=== PATIENT | female | born 2000 | race Caucasian/White ===

== ENCOUNTER 2020-02-29 13:45 | Emergency (ER) | payer OTHER ==
--- OUTSIDE RECORDS SUMMARY | 2020-02-29 13:49 | XMS REPORT | Summary of Care ---
:2000 Author Organization [facility] [employer] Address [address] [place] [address] Care Team Providers Name Role Phone Christel Pavon [facility] Primary Care Provider Reason for Visit Reason Comments Assessment heavy vag bleeding Encounter Details Date Type Department Care Team Description 01/10/2020 Telephone [facility]- Ofelia Pavon Ass essment (heavy vag [place] C, CNP bleeding) [address] [facility] [address] [place], [place] [phone] Allergies No Known Allergiesdocumented as of this encounter (statuses as of 01/10/2020) Medications Medication Sig Dispensed Refills Start Date End Date Status vitamin w/FA Take 1 tablet by 100 tablet 3 06/10/2019 Active tabletIndications: mouth daily. (spontaneous vaginal delivery) docusate calcium 240 Take 1 capsule by 60 capsule 1 06/10/2019 Active mg mouth once daily capsuleIndications: as needed for (spontaneous Constipation. vaginal delivery) ferrous sulfate 325 Take 1 tablet by 60 tablet 2 06/10/2019 Active mg (65 mg iron) mouth 2 (two) tabletIndications: times daily. (spontaneous vaginal delivery) ibuprofen 600 mg Take 1 tablet by 60 tablet 1 06/10/2019 Active tabletIndications: mouth every 6 (spontaneous (six) hours as vaginal delivery) needed for Pain (scale 1-3) or Pain (scale 4-6) (Pain). Take with food or milk. documented as of this encounter (statuses as of 01/10/2020) Active Problems Problem Noted Date Encounter for IUD removal 10/05/2019 Well woman exam 09/20/2019 Other general counseling and advice for contraceptive management 09/20/2019 Obesity (BMI 30-39.9) 06/09/2019 Tobacco use 10/20/2018 Overview: Quit with Other depression 12/19/2017 documented as of this encounter (statuses as of 01/10/2020) Resolved Problems Problem Noted Date Resolved Date (spontaneous vaginal delivery) 06/10/201909/20 Single live 06/10/2019 09/20/2019 Anemia, 06/10/2019 09/20/2019 38 weeks gestation of 06/09/2019 09/20/19 20 Supervision of high-risk 06/05/201909/20 Multiparity 06/05/2019 09/20/2019 Anemia of mother in , antepartum 05/24/2019 09/20/2019 Overview: Verify if patient is taking iron/vit/pnv on next visit Vaginal bleeding during 04/17/20192018 Supervision of high-risk 02/20/201904/27 Round ligament pain 02/20/2019 04/27/2019 Pyelectasis 01/30/2019 09/20/2019 Overview: Left and right pyelectasis noted on usg Rh negative state in antepartum period 10/24/2018 0 09/20/2019 Overview: Will need rhogam at 28 weeks Multiparity 10/20/2018 02/07/2019 History of delivery 10/20/2018 09/20/2019 Overview: Delivery at 35 weeks Supervision of high-risk 10/20/201802/07 Anemia, 06/12/2018 10/20/2018 (spontaneous vaginal delivery) 06/11/201810/20 Single liveborn infant 06/11/2018 07/11/2018 35 weeks gestation of 06/10/2018 07/11/20 18 Vaginal discharge during 05/01/201807/11 Urinary frequency 03/28/2018 07/11/2018 Over weight 11/23/2017 02/07/2019 Rh negative state in antepartum period 11/23/2017 1 09/11/2017 Overview: Rhogam at 28 weeks Supervision of high risk , antepartum 11/22/2017 07/11/2018 Vaginal bleeding in 11/22/2017 07/11/2018 Nausea and vomiting during prior to 22 weeks 11/2207/11/2018 gestation documented as of this encounter (statuses as of 01/10/2020) Immunizations Name Administration Dates Next Due HPV9 09/18/2019, 07/11/2018, 06/11/2018 Influenza Virus Vaccine Quad .5 mL IM 6+ 10/20/2018 MO Rho (d) Immune Globulin 06/10/2019, 03/29/2019, 06/11/2018 Tdap 03/29/2019, 04/18/2018 documented as of this encounter Social History Tobacco Use Types Packs/Day Years Used Date Current Every Day Smoker Cigarettes 0.05 Sta rted: 06/2019 Smokeless Tobacco: Never Used Comments: was smoking 1 cigarrette a day Alcohol Use Drinks/Week oz/Week Comments No Sex Assigned at Date Recorded Not on file Job Start Date Occupation Industry Not on file Not on file Not on file Travel History Travel Start Travel End No recent travel history available. COVID-19 Exposure Response Date Recorded In the last month, have you been in contact with No / Unsure 01/07/2020 9:39 AM CDT someone who was confirmed or suspected to have Coronavirus / COVID-19? documented as of this encounter Last Filed Vital Signs Not on filedocumented in this encounter Plan of Treatment Health Maintenance Due Date Last Done Comments PNEUMOCOCCAL 0-64 YEARS 2006 COMBINED SERIES (1 of 1 - PPSV23) MENINGOCOCCAL B VACCINES (1 2010 of 2 - Risk Bexsero 2-dose series) WELL CARE VISIT: 12-21 YEARS 2012 (yearly) INFLUENZA VACCINE (Season 04/08/2020 10/20/2018 Ended) CHLAMYDIA SCREENING 09/20/2020 09/20/2019, 05/22/2019, 10/20/2018, Additional history exists Depression Screening 09/20/2020 09/20/2019 DTaP,Tdap,and Td Vaccines (3 03/29/2029 03/29/2019, 018 - Td) HPV VACCINES Completed 09/18/2019, 07/11/2018, 06/11/2018 MENINGOCOCCAL VACCINE Aged Out No longer eligible based on patient 's age to complete this topic documented as of this encounter Results Not on filedocumented in this encounter Insurance Payer Benefit Plan / Subscriber ID Effective Dates Phone Addre ss Type Group [place] [employer] [place] xxxxxxxxx 2019-Present Medicaid HEALTH PLAN - [facility] MANAGED MEDICAID documented as of this encounter Advance Directives Name Relationship Healthcare Agent Relationship Co mmunication Suzy Lott Mother Primary healthcare agent
--- OUTSIDE RECORDS SUMMARY | 2020-02-29 13:49 | XMS REPORT | Summary of Care ---
:2000 Author Organization [facility] Address [address] [place] [id number] Care Team Providers Name Role Phone Christel Pavon [facility] Primary Care Provider Reason for Visit Reason Comments Appointment IUD removal Encounter Details Date Type Department Care Team Description 12/12/2019 Telephone [facility]- Ofelia Pavon Stan ointment (IUD [place] C, WHCNP removal) [address] [facility] [address] [facility] [phone] [place], [place] [phone] Allergies No Known Allergiesdocumented as of this encounter (statuses as of 12/12/2019) Medications Medication Sig Dispensed Refills Start Date [...] as of this encounter (statuses as of 12/12/2019) Active Problems Problem Noted Date Encounter for IUD insertion 10/05/2019 Well woman exam 09/20/2019 Other general counseling and advice for contraceptive management 09/20/2019 Obesity (BMI 30-39.9) 06/09/2019 Tobacco use 10/20/2018 Overview: Quit with Other depression 12/19/2017 documented as of this encounter (statuses as of 12/12/2019) Resolved Problems Problem Noted Date Resolved Date [...] 10/20/2018 (spontaneous vaginal delivery) 06/11/201810/20 Single liveborn 06/11/2018 07/11/2018 35 weeks gestation of 06/10/2018 [...] as of this encounter (statuses as of 12/12/2019) Immunizations Name Administration Dates Next Due HPV9 [...] Travel End No recent travel history available. documented as of this encounter Last Filed [...] 09/20/2020 09/20/2019, 05/22/2019, 10/20/2018, Additional history exists DTaP,Tdap,and Td Vaccines (3 03/29/2029 03/29/2019, 018 - Td) HPV VACCINES Completed 09/18/2019, 07/11/2018, 06/11/2018 MENINGOCOCCAL VACCINE Aged Out No longer eligible based on patient 's age to complete this topic documented as of this encounter Results Not on filedocumented in this encounter Insurance Payer Benefit Plan / Subscriber ID Effective Phone Address T ype Group Dates [facility] MEDICAID OF xxxxxxxxx 2019-Prese [phone] Med icaid [place] nt [id number] [place] [address] [facility] CHILDRENS xxxxxxxxx 2019-Nestor Brown [facility] HEALTH PLAN - MANAGED MEDICAID documented as of this encounter Advance Directives Name Relationship Healthcare Agent Relationship Co mmunication Suzy Lott Mother Primary healthcare agent
--- OUTSIDE RECORDS SUMMARY | 2020-02-29 13:49 | XMS REPORT | Summary of Care ---
:2000 Author Organization [facility] Address [address] [place] [address] Care Team Providers Name Role Phone Christel Pavon [facility] Primary Care Provider Encounter Details Date Type Department Care Team Description 02/26/2020 Orders Only [facility] Doctor Unassigned, No [address] [facility] [place] [address] [address] [place] [address] Allergies No Known Allergiesdocumented as of this encounter (statuses as of 02/26/2020) Medications Medication Sig Dispensed Refills Start Date [...] as of this encounter (statuses as of 02/26/2020) Active Problems Problem Noted Date Encounter for IUD removal 10/05/2019 Well woman exam 09/20/2019 Other general counseling and advice for contraceptive management 09/20/2019 Obesity (BMI 30-39.9) 06/09/2019 Tobacco use 10/20/2018 Overview: Quit with Other depression 12/19/2017 documented as of this encounter (statuses as of 02/26/2020) Resolved Problems Problem Noted Date Resolved Date (spontaneous vaginal delivery) 06/10/201909/20 Single live 06/10/2019 09/20/2019 Anemia, 06/10/2019 09/20/2019 38 weeks gestation of 06/09/2019 09/20/19 Supervision of high-risk 06/05/201909/20 Multiparity 06/05/2019 09/20/2019 [...] as of this encounter (statuses as of 02/26/2020) Immunizations Name Administration Dates Next Due HPV9 09/18/2019, 07/11/2018, 06/11/2018 Influenza Virus Vaccine Quad .5 mL IM 6+ 10/20/2018 MO Rho (d) Immune Globulin 06/10/2019, 03/29/2019, 06/11/2018 TDAP 03/29/2019, 04/18/2018 documented as of this encounter [...] VISIT: 12-21 YEARS 2012 (yearly) INFLUENZA VACCINE (#1) 2020 10/20/2018 CHLAMYDIA SCREENING 09/20/2020 09/20/2019, 05/22/2019, 10/20/2018, Additional history exists Depression Screening 09/20/2020 09/20/2019 DTaP,Tdap,and Td Vaccines (3 03/29/2029 03/29/2019, 018 - Td) HPV VACCINES Completed 09/18/2019, 07/11/2018, 06/11/2018 MENINGOCOCCAL VACCINE Aged Out No longer eligible based on patient 's age to complete this topic documented as of this encounter Procedures Procedure Name Priority Date/Time Associated Diagnosis Comme nts ASSIGNMENT OF BENEFITS Routine 02/26/2020 4:29 PM CDT documented in this encounter Results Not on filedocumented in this encounter Insurance Payer Benefit Plan / Subscriber ID Effective Dates Phone Addre ss Type Group [place] xxxxxxxxx 2019-Present Medicaid HEALTH PLAN - HEALTH MANAGED MEDICAID documented as of this encounter Advance Directives Name Relationship Healthcare Agent Relationship Co mmunication Suzy Lott Mother Primary healthcare agent
--- OUTSIDE RECORDS SUMMARY | 2020-02-29 13:49 | XMS REPORT | Continuity of Care Document ---
:2000 Author Organization [facility] t Address [address] [place] [address] Care Team Providers Name Role Phone Freeman Schulz Attending Clinician Doctor Unassigned, Name Attending Clinician Unavailable Christel Oviedo Attending Clinician Problems This patient has no known problems. Allergies, Adverse Reactions, Alerts This patient has no known allergies or adverse reactions. Medications This patient has no known medications. Procedures This patient has no known procedures. Encounters Start End Encounter Admission Attending Care Care Encounter Source Date/Time Date/Time Type Type Clinicians Facility Department ID 2020-02-26 2020-02-26 [facility] [id number] 16:39:27 18:59:00 Whitley Vasquez [id number] [place] [id number] [place] [id number] 2020-02-26 2020-02-26 Orders Doctor MORAN [id number] 00:00:00 00:00:00 Only UnassJANNA melendez [id number] [place] [facility] [id number] 2020-01-10 2020-01-10 Telephone ELODIA Pavon [id number] 00:00:00 00:00:00 Ofelia C INTERNAL REVENUE AGENT [id number] [facility] [id number] MATERNAL [id number] & CHILD 107 [facility] 2019-12-12 2019-12-12 Telephone [facility] [id number] 00:00:00 00:00:00 Ofelia C INTERNAL REVENUE AGENT [id number] [facility] [id number] MATERNAL [id number] & CHILD 107 [facility] 2019-10-26 2019-10-26 Telephone [facility] [id number] 00:00:00 00:00:00 Ofelia C INTERNAL REVENUE AGENT [id number] [facility] [id number] MATERNAL [id number] & CHILD 107 [facility] 2019-10-05 2019-10-05 Office [facility] [id number] 14:55:55 15:52:08 Visit Ofelia C INTERNAL REVENUE AGENT [id number] [facility] [id number] MATERNAL [id number] & CHILD 107 [facility] 2019-10-05 2019-10-05 Orders Doctor LUISA [id number] 00:00:00 00:00:00 Only Unassigned, JANNA [id number] [place] [facility] [id number] Results This patient has no known results.
--- OUTSIDE RECORDS SUMMARY | 2020-02-29 13:50 | XMS REPORT | Summary of Care ---
:2000 Author Organization [facility] - [facility] Address [address] [place] [id number] Care Team Providers Name Role Phone Christel Pavon SHERICE Primary Care Provider Reason for Referral Radiology Services (STAT) Status Reason Specialty Diagnoses / Referred By Referred To Procedures Contact Contact New Request Diagnostic Diagnoses Pelvic pain Whitley Bonner Radiology Procedures US PELVIS COMPLETE WITH TRANSVAGINAL R, EMNP [facility] [id number] [place] [id number] Reason for Visit Reason Comments Abdominal Pain Auth/Cert Status Reason Specialty Diagnoses / Referred By Referred To Procedures Contact Contact Emergency Medicine [facility] Em ergency Dept [address] [place] [address] Fax: Encounter Details Date Type Department Care Team Description 02/26/2020 Emergency ADC-Emergency Whitley Bonner R, PID (acute pelvic inflammatory disease) (Primary Dx); Department EMNP Lower abdominal pain; [address] [place] [address] Dr dougherty [facility] [place] [address] [id number] [place], [place] [address] Allergies No Known Allergiesdocumented as of this encounter (statuses as of 02/26/2020) Medications Medication Sig Dispensed Refills Start Date End Date Status vitamin w/FA Take 1 tablet 100 tablet 3 06/10/2019 Active tabletIndications: by mouth daily. (spontaneous vaginal delivery) docusate calcium 240 Take 1 capsule 60 capsule 1 06/10/2019 Active mg capsuleIndications: by mouth once (spontaneous daily as needed vaginal delivery) for Constipation. ferrous sulfate 325 mg Take 1 tablet 60 tablet 2 06/10/2019 Active (65 mg iron) by mouth 2 tabletIndications: (two) times (spontaneous vaginal daily. delivery) ibuprofen 600 mg Take 1 tablet 60 tablet 1 06/10/2019 Active tabletIndications: by mouth every (spontaneous vaginal 6 (six) hours delivery) as needed for Pain (scale 1-3) or Pain (scale 4-6) (Pain). Take with food or milk. doxycycline hyclate Take 1 capsule 28 capsule 0 02/26/202011/2019 Active 100 mg by mouth 2 capsuleIndications: (two) times PID (acute pelvic daily for 14 inflammatory disease) days. metroNIDAZOLE 500 mg Take 1 tablet 28 tablet 0 02/26/202011/2019 Active tabletIndications: PID by mouth 2 (acute pelvic (two) times inflammatory disease) daily for 14 days. ibuprofen 800 mg Take 1 tablet 20 tablet 0 02/26/2020 Active tabletIndications: PID by mouth every (acute pelvic 6 (six) hours inflammatory disease) as needed for Pain (scale 4-6). documented as of this encounter (statuses as [...] been in contact with No / Unsure 02/26/2020 4:30 PM CDT someone who was confirmed or suspected to have Coronavirus / COVID-19? documented as of this encounter Last Filed Vital Signs Vital Sign Reading Time Taken Comments Blood Pressure 110/78 02/26/2020 6:57 PM CDT Pulse 87 02/26/2020 6:57 PM CDT Temperature 37 C (98.6 F) 02/26/2020 4:35 PM CDT Respiratory Rate 18 02/26/2020 6:57 PM CDT Oxygen Saturation 100% 02/26/2020 6:57 PM CDT Inhaled Oxygen Concentration - - Weight 86.2 kg (190 lb) 02/26/2020 4:35 PM CDT Height - - Body Mass Index - - documented in this encounter Discharge Instructions Whitley Sorto EMNP - 02/26/2020NO LIFE-THREATENING FINDINGS ON TODAY'S EXAM. SPECIAL INSTRUCTIONS: 1. Pelvic rest for 2 weeks (no sex/tampons/douche) 2. May take 2 tylenol every 4 hours for pain 3. Take all antibiotics 4. Follow up with golf manager in 1 week for reevaluation 5. See attached information FOLLOW-UP RECOMMENDATIONS: RECOMMEND FOLLOW-UP WITH A PRIMARY CARE PROVIDER OR SPECIALIST IN 2-5 DAYS, ESPECIALLY IF NO IMPROVEMENT IN SYMPTOMS. TO FOLLOW-UP WITHIN THE [facility], TRY THESE OPTIONS (CLINIC APPOINTMENTS AVAILABLE ON BJIB-YW-FICA BASIS): 1. SCHEDULE AN APPOINTMENT ONLINE AT WWW.[facility] 2. OR CALL THE [facility] AT OR 3. OR CALL YOUR [facility] PHYSICIAN'S OFFICE DIRECTLY IF YOU ARE ALREADY AN ESTABLISHED [facility] PATIENT. OR, YOU MAY FOLLOW-UP WITH A PROVIDER OF YOUR CHOICE, SUCH : 1. A PHYSICIAN OF YOUR CHOICE 2. [facility], . LOCATIONS IN [facility] 3. [facility], [address] [place] [address]; [phone] RETURN TO ER FOR WORSENING OF SYMPTOMS. AttachmentsThe following attachments cannot be sent through Care Everywhere. Pelvic Inflammatory Disease (Zimbabwean)Pelvic Inflammatory Disease (PID)? What Is (Zimbabwean)Pelvic Inflammatory Disease, Talking About (PID) (Zimbabwean)Pelvic Inflammatory Disease, Treating with Medicines (PID) (Zimbabwean)Doxycycline tablets or capsules (Zimbabwean)Metronidazole tablets or capsules ([place]imbabwean)documented in this encounter Plan of Treatment Name Type Priority Associated Diagnoses Date/Ti me GC & CHLAMYDIA AMPLIFIED LAB STAT Lower abdominal pain 02/26/2020 5:12 PM CDT ASSAY Name Type Priority Associated Diagnoses Order S chedule GC & CHLAMYDIA AMPLIFIED LAB Routine Lower abdominal pain ONCE for 1 Occurrences ASSAY starting 2019 until 02/26/2020 Health Maintenance Due Date Last Done Comments [...] encounter Procedures Procedure Name Priority Date/Time Associated Comments Diagnosis US PELVIS COMPLETE STAT 02/26/2020 5:53 Pelvic pain Resul ts for this WITH TRANSVAGINAL PM CDT procedure are in the results section. POCT TEST ARA 02/26/2020 5:12 Lower abdominal R esults for this PM CDT pain procedure are i n the results section. URINALYSIS STAT 02/26/2020 5:12 Lower abdominal Results for this PM CDT pain procedure are i n the results section. CBC WITH DIFF STAT 02/26/2020 5:12 Lower abdominal Results for this PM CDT pain procedure are i n the results section. COMP. METABOLIC PANEL STAT 02/26/2020 5:12 Lower abdominal Results for this (62078) PM CDT pain procedure are i n the results section. documented in this encounter Results US PELVIS COMPLETE WITH TRANSVAGINAL (02/26/2020 5:53 PM CDT) Specimen Impressions Performed At PACS/VR/DOSE Unremarkable ultrasound of the uterus and right ovary. Left ovary could not be visualized Preliminary Report Dictated by Resident: Elliott Hart I, Milad Recio MD., have reviewed this study and agree with the above report. Narrative Performed At EXAM: US PELVIS COMPLETE WITH TRANSVAGIN AL PACS/VR/DOSE HISTORY: 19 years -old Female with pelvi c pain . LMP = 02/05/2020. n TECHNIQUE: Transabdominal and transvaginal ultrasound imaging of the pelvis was performed including color Doppler ev aluation. Environmental Marketer images were obtained for the record. COMPARISON: None FINDINGS: Uterus: The uterus is normal in size, 3.8 x 4.6 x 10.0 cm. The myometrium is homogenous. No focal lesion is detected. The endometrium is normal in appearance. Endometrial thickness measur es 7.0 mm. The cervix is unremarkable. Right Adnexa: Ovary size: 2.4 x 1.7 x 1.5 cm Ovary appearance: Few small follicles. Other: No mass. Left Adnexa: The left ovary is nonvisualized. Cul-de-sac: Small amount of fluid is not ed within the cul-de-sac, likely physiologic. Procedure Note [facility], Radiant Results Inft User - 2019 6:07 PM CDT EXAM: US PELVIS COMPLETE WITH TRANSVAGINAL HISTORY: 19 years -old Female with pelvi c pain . LMP = 02/05/2020. n TECHNIQUE: Transabdominal and transvagin al ultrasound imaging of the pelvis was performed including color Doppler ev aluation. Environmental Marketer images were obtained for the record. COMPARISON: None FINDINGS: Uterus: The uterus is normal in size, 3.8 x 4.6 x 10.0 cm. The myometrium is homogenous. No focal lesion is detected. The endometrium is normal in appearance. Endometrial thickness measur es 7.0 mm. The cervix is unremarkable. Right Adnexa: Ovary size: 2.4 x 1.7 x 1.5 cm Ovary appearance: Few small follicles. Other: No mass. Left Adnexa: The left ovary is nonvisualized. Cul-de-sac: Small amount of fluid is not ed within the cul-de-sac, likely physiologic. IMPRESSION Unremarkable ultrasound of the uterus an d right ovary. Left ovary could not be visualized Preliminary Report Dictated by Resident: Elliott Hart I, Milad Recio MD., have reviewed th is study and agree with the above report. Performing Organization Address City/State/Zipcode Phone Number PACS/VR/DOSE POCT TEST (02/26/2020 5:12 PM CDT) Pathologist Sig nature POCT PREG negative On board controls acceptable present with C Line Specimen Urine - URINE, CLEAN CATCH URINALYSIS (02/26/2020 5:12 PM CDT) APPEARANCE Hazy (A) Clear [facility] COLOR Yellow Yellow [facility] PH 7.0 4.8 - 8.0 [facility] SP GRAVITY 1.020 1.003 - 1.030 [facility] GLU U QUAL Normal Normal [facility] BLOOD NegativeComment: Negative [facility] INTERFERENCE FROM HOSPITAL LABORATORY ASCORBIC ACID MAY CAUSE FALSE NEGATIVE RESULT KETONES Negative Negative [facility] PROTEIN Negative Negative [facility] UROBILIN Normal Normal [facility] BILIRUBIN Negative Negative [facility] NITRITE Negative Negative [facility] LEUK SUZANNA Negative Negative [facility] RBC/HPF 0 0 - 3 HPF [facility] WBC/HPF 1 0 - 5 HPF [facility] BACTERIA Few (A) Negative [facility] MUCOUS Slight (A) Negative LPF [facility] SQ EPITH 6 HPF [facility] Specimen Urine - URINE, CLEAN CATCH Performing Organization Address City/[facility]/Zipcode Phone Number [facility] CLIA: [id number], [address] [place], [place] [address] COMP. METABOLIC PANEL (73053) (02/26/2020 5:12 PM CDT) Pathologist Sig nature NA 138 135 - 145 mmol/L [facility] K 4.3 3.5 - 5.0 mmol/L [facility] CL 107 98 - 108 mmol/L [facility] CO2 TOTAL 23 23 - 31 mmol/L [facility] AGAP 8 2 - 16 [facility] BUN 14 7 - 23 mg/dL [facility] GLUCOSE 93 70 - 110 mg/dL [facility] CREATININE 0.75 0.50 - 1.04 [facility] mg/dL [facility] TOTAL BILI 0.3 0.1 - 1.1 mg/dL [facility] CALCIUM 9.8 8.6 - 10.6 mg/dL [facility] T PROTEIN 7.9 6.3 - 8.2 g/dL [facility] ALBUMIN 4.7 3.5 - 5.0 g/dL [facility] ALK PHOS 41 34 - 122 U/L [facility] ALTv 12 5 - 35 U/L [facility] AST(SGOT) 19 13 - 40 U/L [facility] eGFR Calculation 99.5 mL/min/1.73m2 [facility] (Non-) [facility] Y eGFR Calculation 120.7 mL/min/1.73m2 [facility] () [facility] Specimen Blood - ARM, RIGHT Narrative Performed At Association of Glomerular Filtration Rate (GFR) [facility] and Staging of Kidney Disease* + + +- + | GFR (mL/min/1.73 m2) | With Kidney Damage | Without Kidney Damage + + +- + | >90 | Stage one | Normal + + +- + | 60-89 | Stage two | Decreased GFR + + +- + | 30-59 | Stage three | Stage three + + +- + | 15-29 | Stage four | Stage four + + +- + | <15 (or dialysis) | Stage five | Stage five + + +- + *Each stage assumes the associated GFR level has been in effect for at least three months. Stages 1 to 5, with or without kidney disease, indicate chronic kidney disease. Notes: Determination of stages one and two (with eGFR >59mL/min/1.73 m2) requires estimation of kidney damage for at least three months as defined by structural or functional abnormalities of the kidney, manifested by either: Pathological abnormalities or Markers of kidney damage (including abnormalities in the composition of the blood or urine or abnormalities in imaging tests). Performing Organization Address City/State/Zipcode Phone Number [facility] CLIA: [id number], [address] [place], [place] [address] CBC WITH DIFF (02/26/2020 5:12 PM CDT) Pathologist Sig nature WBC 5.89 4.30 - 11.10 [facility] 10*3/L [facility] RBC 4.59 3.93 - 5.25 [facility] 10*6/L [facility] HGB 11.3 (L) 11.6 - 15.0 [facility] g/dL [facility] HCT 35.3 (L) 35.7 - 45.2 % [facility] MCV 76.9 (L) 80.6 - 95.5 fL [facility] MCH 24.6 (L) 25.9 - 32.8 pg [facility] MCHC 32.0 31.6 - 35.1 [facility] g/dL [facility] RDW-SD 42.4 39.0 - 49.9 fL [facility] RDW-CV 15.4 12.0 - 15.5 % [facility] PLT 297 166 - 358 [facility] 10*3/L HOSPITAL [facility] MPV 9.4 (L) 9.5 - 12.9 fL [facility] NRBC/100 WBC 0.0 0.0 - 10.0 /100 [facility] WBCs [facility] NRBC x10^3 <0.01 10*3/L [facility] GRAN MAT (NEUT) % 57.4 % [facility] IMM GRAN % 0.20 % [facility] LYMPH % 27.8 % [facility] MONO % 10.2 % [facility] EOS % 3.4 % [facility] BASO % 1.0 % [facility] GRAN MAT x10^3(ANC) 3.38 1.88 - 7.09 [facility] 10*3/uL [facility]ITAL [facility] IMM GRAN x10^3 <0.03 0.00 - 0.06 [facility] 10*3/uL [facility] LYMPH x10^3 1.64 1.32 - 3.29 [facility] 10*3/uL [facility] MONO x10^3 0.60 0.33 - 0.92 [facility] 10*3/uL [facility]ITAL [facility] EOS x10^3 0.20 0.03 - 0.39 [facility] 10*3/uL [facility] BASO x10^3 0.06 0.01 - 0.07 [facility] 10*3/uL [facility] Specimen Blood - ARM, RIGHT Performing Organization Address City/State/Zipcode Phone Number [facility] CLIA: [id number], [address] [place] [address] documented in this encounter Visit Diagnoses Diagnosis PID (acute pelvic inflammatory disease) - Primary Acute parametritis and pelvic cellulitis Lower abdominal pain Abdominal pain, other specified site Pelvic pain Unspecified symptom associated with fema le genital organs documented in this encounter Administered Medications Medication Order MAR Action Action Date Dose Rate Site cefTRIAXone (ROCEPHIN) Given 02/26/2020 6:39 PM 250 mg Left injection 250 mg CDT Dorsogluteal-IM 250 mg, Intramuscular, Q24H, First dose on Tue02/26/20 at 1830, Until Discontinued, ARA, Reason for Anti-Infective: Documented Infection, Documented Infection Site: Pelvic, Duration of Therapy: Other (see Comments) Medication Order MAR Action Action Date Dose Rate Site azithromycin (ZITHROMAX) tablet Given 02/26/2020 6:39 PM CDT 1, 000 mg 1,000 mg 1,000 mg, Oral, ONCE, 1 dose, Tue02/26/20 at 1830, ARA, Reason for Anti-Infective: Documented Infection, Documented Infection Site: Pelvic, Duration of Therapy: Other (see Comments) ketorolac (TORADOL) injection 15 mg Given 02/26/2020 5:18 PM CDT 15 mg 15 mg, Slow IV Push, ONCE, 1 dose, Tue02/26/20 at 1815, ARA, crew team member approving Restricted medication: WHITLEY BONNER morpHINE injection 4 mg Given 02/26/2020 5:21 PM CDT 4 mg 4 mg, Slow IV Push, ONCE, 1 dose, Tue02/26/20 at 1815, STAT ondansetron (ZOFRAN (PF)) injection 4 mg Given 02/26/2020 5:21 PM CDT 4 mg 4 mg, Slow IV Push, ONCE, 1 dose, 02/26/20 at 1815, ARA documented in this encounter Insurance Payer Benefit Plan / Subscriber ID Effective Dates Phone Addre ss Type Group [facility] xxxxxxxxx 2019-Present Medicaid HEALTH PLAN - HEALTH MANAGED MEDICAID documented as of this encounter Advance Directives Name Relationship Healthcare Agent Relationship Co mmunication Suzy Lott Mother Primary healthcare agent "
--- NOTE | 2020-02-29 15:25 | EDPHYS ---
Physician Documentation [facility] Name: Jazmin Lott Age: 19 yrs Sex: Female : 2000 Arrival Date: 02/29/2020 Time: 13:48 Bed 20 Private MD: ED Physician Lenin Rajput HPI: 02/28 15:26 This 19 yrs old Female presents to ER via Ambulatory with complaints of jr8 Pelvic Pain, Dizziness, Vomiting. 15:26 Onset: The symptoms/episode began/occurred gradually, 2 day(s) ago. Associated signs jr8 and symptoms: The patient has no apparent associated signs or symptoms. Modifying factors: The patient symptoms are alleviated by nothing, the patient symptoms are aggravated by antibiotic use. The patient has not experienced similar symptoms in the past. The patient has been recently seen by a physician:. Patient stated that she was seen and had blood work, US, and pelvic exam completed at [facility]. Stated that she was diagnosed with PID and was put on Doxycycline and Flagyl. Now having dizziness, n/v/d when she takes the Abx. Wanted to see if we could do anything different . Historical: - Allergies: 14:18 No Known Allergies; ss - PMHx: 14:18 None; ss - Immunization history:: Adult Immunizations up to date. - Social history:: Smoking status: Patient reports the use of cigarette tobacco products, smokes one pack cigarettes per day. ROS: 15:26 Eyes: Negative for injury, pain, redness, and discharge, ENT: Negative for injury, jr8 pain, and discharge, Neck: Negative for injury, pain, and swelling, Cardiovascular: Negative for chest pain, palpitations, and edema, Respiratory: Negative for shortness of breath, cough, wheezing, and pleuritic chest pain, Back: Negative for injury and pain, MS/Extremity: Negative for injury and deformity, Skin: Negative for injury, rash, and discoloration. 15:26 Abdomen/GI: Positive for nausea, vomiting, and diarrhea, Negative for abdominal pain. 15:26 Neuro: Positive for dizziness. Exam: 15:26 Eyes: Pupils equal round and reactive to light, extra-ocular motions intact. Lids and jr8 lashes normal. Conjunctiva and sclera are non-icteric and not injected. Cornea within normal limits. Periorbital areas with no swelling, redness, or edema. ENT: Nares patent. No nasal discharge, no septal abnormalities noted. Tympanic membranes are normal and external auditory canals are clear. Oropharynx with no redness, swelling, or masses, exudates, or evidence of obstruction, uvula midline. Mucous membranes moist. Neck: Trachea midline, no thyromegaly or masses palpated, and no cervical lymphadenopathy. Supple, full range of motion without nuchal rigidity, or vertebral point tenderness. No Meningismus. Cardiovascular: Regular rate and rhythm with a normal S1 and S2. No gallops, murmurs, or rubs. Normal PMI, no JVD. No pulse deficits. Respiratory: Lungs have equal breath sounds bilaterally, clear to auscultation and percussion. No rales, rhonchi or wheezes noted. No increased work of breathing, no retractions or nasal flaring. Abdomen/GI: Soft, non-tender, with normal bowel sounds. No distension or tympany. No guarding or rebound. No evidence of tenderness throughout. Back: No spinal tenderness. No costovertebral tenderness. Full range of motion. Skin: Warm, dry with normal turgor. Normal color with no rashes, no lesions, and no evidence of cellulitis. MS/ Extremity: Pulses equal, no cyanosis. Neurovascular intact. Full, normal range of motion. Neuro: Awake and alert, GCS 15, oriented to person, place, time, and situation. Cranial nerves II-XII grossly intact. Motor strength 5/5 in all extremities. Sensory grossly intact. Cerebellar exam normal. Normal gait. Vital Signs: 14:13 BP 126 / 82; Pulse 75; Resp 16; Temp 98.3(TE); Pulse Ox 100% on R/A; Weight 86.18 kg; ss Height 5 ft. 6 in. (167.64 cm); Pain 3/10; 14:13 Body Mass Index 30.67 (86.18 kg, 167.64 cm) ss MDM: 14:47 Patient medically screened. [facility] 15:21 Data reviewed: vital signs, nurses notes. Data reviewed: and as a result, I will jr8 discharge patient. Data interpreted: Pulse oximetry: on room air is 100 %. Interpretation: normal. Counseling: I had a detailed discussion with the patient and/or guardian regarding: the historical points, exam findings, and any diagnostic results supporting the discharge/admit diagnosis, the need for outpatient follow up, a family practitioner, to return to the emergency department if symptoms worsen or persist or if there are any questions or concerns that arise at home. ED course: Discussed with patient that there is no acute abdominal findings on physical exam. That she has two options. To have us do another pelvic exam and blood work or switch up the Abx as it appears based on symptoms that patient is having undesirable side effects to Abx. Patient wants to try and switch up Abx at this time. Knows she can come back if worse . Administered Medications: No medications were administered Disposition: 15:44 Co-signature as Attending Physician, Lenin Rajput MD I agree with the assessment and kdr plan of care. Disposition: 02/29/20 15:24 Discharged to Home. Impression: Adverse effect of other systemic antibiotics. - Condition is Stable. - Prescriptions for Levaquin 500 mg Oral Tablet - take 1 tablet by ORAL route once daily for 7 days; 7 tablet. - Medication Reconciliation Form, Thank You Letter, Antibiotic Education, Prescription Opioid Use form. - Follow up: Private Physician; When: 1 week; Reason: Recheck today's complaints, Continuance of care, Re-evaluation by your physician. - Problem is new. - Symptoms have improved. - Notes: Stop Doxy and start Levaquin Signatures: Lenin Rajput MD MD [facility] Mavis Appiah RN RN Iván Mayberry PA PA jr8 Jyotsna Pyle RN RN Corrections: (The following items were deleted from the chart) 15:36 15:24 02/29/2020 15:24 Discharged to Home. Impression: Adverse effect of other systemic hb antibiotics. Condition is Stable. Forms are Medication Reconciliation Form, Thank You Letter, Antibiotic Education, Prescription Opioid Use. Follow up: Private Physician; When: 1 week; Reason: Recheck today's complaints, Continuance of care, Re-evaluation by your physician. Problem is new. Symptoms have improved. jr8
--- NOTE | 2020-02-29 15:25 | ER ---
Nurse's Notes [facility] Name: Jazmin Lott Age: 19 yrs Sex: Female : 2000 Arrival Date: 02/29/2020 Time: 13:48 Bed 20 Private MD: Diagnosis: Adverse effect of other systemic antibiotics Presentation: 02/28 14:13 Chief complaint: Patient states: Diagnosed at [facility] with PID and given ss Flagyl and doxycycline. Pt is concerned and was hoping for a second opinion because her pelvic pain comes and goes and every time she takes the antibiotics she gets dizzy. vomiting and diarrhea began yesterday. Coronavirus screen: Patient denies a cough. Patient denies shortness of breath or difficulty breathing. Patient denies measured and/or subjective temperature greater than 100.4F prior to today's visit. Patient denies travel on a cruise ship or to a country the [facility] currently lists as an affected area. Patient denies contact with known and/or suspected case of COVID-19. Proceed with normal triage. Ebola Screen: Patient denies exposure to infectious person. Patient denies travel to an Ebola-affected area in the 21 days before illness onset. Initial Sepsis Screen: Does the patient meet any 2 criteria? No. Patient's initial sepsis screen is negative. Does the patient have a suspected source of infection? Yes: Other: PID. Risk Assessment: Do you want to hurt yourself or someone else? Patient reports no desire to harm self or others. Onset of symptoms was February 25, 2020. 14:13 Method Of Arrival: Ambulatory 14:13 Acuity: ADEN 3 Historical: - Allergies: 14:18 No Known Allergies; ss - PMHx: 14:18 None; ss - Immunization history:: Adult Immunizations up to date. - Social history:: Smoking status: Patient reports the use of cigarette tobacco products, smokes one pack cigarettes per day. Vital Signs: 14:13 BP 126 / 82; Pulse 75; Resp 16; Temp 98.3(TE); Pulse Ox 100% on R/A; Weight 86.18 kg; ss Height 5 ft. 6 in. (167.64 cm); Pain 3/10; 14:13 Body Mass Index 30.67 (86.18 kg, 167.64 cm) ED Course: 13:48 Patient arrived in ED. as 14:18 Triage completed. ss 14:18 Arm band placed on right wrist. ss 14:28 Iván Mayberry PA is PHCP. jr8 14:28 Lenin Rajput MD is Attending Physician. jr8 Administered Medications: No medications were administered Outcome: 15:24 Discharge ordered by . jr8 15:36 Patient left the ED. hb Signatures: Ching Gr Shelby, ANA MARIA RN Iván Mayberry PA PA jrJyotsna Cook RN RN hb
[2020-02-29 15:44] VITALS: BP 126/82; TEMP 98.3; O2SAT 100
== END 2020-02-29 15:36 | disposition home or self-care (01) ==
LOC: ER 13:45
DX: R11.2 Nausea with vomiting, unspecified (principal); T36.4X5A Adverse effect of tetracyclines, initial encounter; T37.3X5A Adverse effect of other antiprotozoal drugs, initial encounter; F17.210 Nicotine dependence, cigarettes, uncomplicated
CPT/HCPCS: 99281

== ENCOUNTER 2020-03-12 19:26 | Emergency (ER) | payer OTHER ==
--- OUTSIDE RECORDS SUMMARY | 2020-03-12 19:29 | XMS REPORT | Continuity of Care Document ---
:2000 Author Organization [facility] t Address [address] [place] [address] Care Team Providers Name Role Phone Freeman [...] Clinicians Facility Department ID 2020-02-26 2020-02-26 [facility] [id number] 16:39:27 18:59:00 Whitley Vasquez [id number] [place] [id number] [place] [id number] [id number] 2020-02-26 2020-02-26 Orders Doctor MORAN [id number] 00:00:00 00:00:00 Only UnassJANNA melendez [id number] [place] [facility] [id number] 2020-01-10 2020-01-10 Telephone ELODIA Pavon [id number] 00:00:00 00:00:00 Ofelia C COLLECTION SUPERVISOR [id number] [facility] [id number] MATERNAL [id number] & CHILD 107 [facility] 2019-12-12 2019-12-12 Telephone [facility] [id number] 00:00:00 00:00:00 Ofelia C COLLECTION SUPERVISOR [id number] [facility] [id number] MATERNAL [id number] & CHILD 107 [facility] 2019-10-26 2019-10-26 Telephone [facility] [id number] 00:00:00 00:00:00 Ofelia C COLLECTION SUPERVISOR [id number] [facility] [id number] MATERNAL [id number] & CHILD 107 [facility] 2019-10-05 2019-10-05 Office [facility] [id number] 14:55:55 15:52:08 Visit Ofelia C COLLECTION SUPERVISOR [id number] [facility] [id number] MATERNAL [id number] & CHILD 107 [facility] 2019-10-05 2019-10-05 Orders Doctor LUISA [id number] 00:00:00 00:00:00 Only Unassigned, JANNA [id number] [place] [facility] [id number] Results This patient has no known results.
[2020-03-12 20:49] LABS: Urine Blood NEGATIVE (NEG); Urine Glucose NEGATIVE (NEG); Urine Protein NEGATIVE (NEG); Urine Specific Gravity >1.030 (1.005-1.030); Urine pH 5.5 (5.0-7.0)
[2020-03-12 20:49] LABS: Absolute Lymphocytes (CBC) 2.5 K/uL (0.7-4.9); Basophils % 1.3 % (0-1.3); Hematocrit 34.2 % (36.0-45.0); Lymphocytes % 39.5 % (15.3-44.8); MPV 7.8 fL (7.6-11.3); RBC Red Blood Cell Count 4.53 M/uL (3.86-4.86)
[2020-03-12 21:06] LABS: ALT/SGPT 19 U/L (12-78); AST/SGOT 13 U/L (15-37); Alkaline Phosphatase 53 U/L (45-117); BUN Blood Urea Nitrogen 18 mg/dL (7-18); Bicarbonate 26 mmol/L (21-32); Bilirubin Direct < 0.1 mg/dL (0-0.2); Bilirubin Total 0.2 mg/dL (0.2-1.0); Glucose Level 101 mg/dL (74-106); Lipase 161 U/L (73-393); Potassium 3.7 mmol/L (3.5-5.1); Protein, Total 7.8 g/dL (6.4-8.2); Sodium Level 142 mmol/L (136-145)
[2020-03-12 22:06] LABS: Urine Bacteria <20 /HPF (<20); Urine Culture Reflex Order NOT NEEDED; Urine Mucus 2+ /HPF (NONE SEEN); Urine RBC <5 /HPF (NONE SEEN)
[2020-03-12] MEDS ORDERED: KETOROLAC 30 MG/ML INJ ONE (23:11)
--- NOTE | 2020-03-12 23:41 | EDPHYS ---
Physician Documentation [facility] Name: Jazmin Lott Age: 19 yrs Sex: Female : 2000 Arrival Date: 03/12/2020 Time: 19:31 Bed 28 Private MD: ED Physician Jemal Encarnacion HPI: 03/12 20:20 This 19 yrs old Female presents to ER via Ambulatory with complaints of cp Abdominal Pain. 20:20 The patient presents with abdominal pain in the lower abdomen. cp 20:20 Onset: The symptoms/episode began/occurred today. The symptoms do not radiate. cp Associated signs and symptoms: Pertinent negatives: blood in stools, constipation, diarrhea, dysuria, fever, vaginal discharge, vaginal bleeding. Severity of pain: in the emergency department the pain is unchanged despite home interventions. Patient reports being treated for PID 3 weeks ago. Denies having STD and reports pain returned today. 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 - Social history:: Smoking status: Patient reports the use of cigarette tobacco products, smokes one pack cigarettes per day. ROS: 20:25 Constitutional: Negative for body aches, chills, fever, poor PO intake. cp 20:25 Eyes: Negative for injury, pain, redness, and discharge. cp 20:25 ENT: Negative for ear pain, sore throat, difficulty swallowing, difficulty handling secretions. 20:25 Cardiovascular: Negative for chest pain, palpitations. 20:25 Respiratory: Negative for cough, shortness of breath, wheezing. 20:25 Abdomen/GI: Positive for abdominal pain, of the right lower quadrant and left lower quadrant, Negative for vomiting, diarrhea, constipation. 20:25 Back: Negative for radiated pain. 20:25 : Negative for urinary symptoms, flank pain, vaginal bleeding, vaginal discharge. 20:25 Skin: Negative for rash. 20:25 Neuro: Negative for headache, weakness. 20:25 All other systems are negative. Exam: 20:30 Constitutional: The patient appears in no acute distress, alert, awake, non-toxic, well cp developed, well nourished. 20:30 Head/Face: Normocephalic, atraumatic. cp 20:30 Eyes: Periorbital structures: appear normal, Conjunctiva: normal, no exudate, no injection, Lids and lashes: appear normal, bilaterally. 20:30 ENT: External ear(s): are unremarkable, Nose: is normal, Mouth: is normal, Posterior pharynx: Airway: no evidence of obstruction, patent. 20:30 Chest/axilla: Inspection: normal, Palpation: is normal, no crepitus, no tenderness. 20:30 Cardiovascular: Rate: normal, Rhythm: regular. 20:30 Respiratory: the patient does not display signs of respiratory distress, Respirations: normal, no use of accessory muscles, no retractions, labored breathing, is not present, Breath sounds: are clear throughout, no decreased breath sounds. 20:30 Abdomen/GI: Inspection: abdomen appears normal, Bowel sounds: active, all quadrants, Palpation: soft, in all quadrants, mild abdominal tenderness, in the right lower quadrant and left lower quadrant, rebound tenderness, is not appreciated, voluntary guarding, is not appreciated, involuntary guarding, is not appreciated. 20:30 Back: pain, is absent, ROM is normal. Vital Signs: 19:56 BP 107 / 64; Pulse 87; Resp 15 S; Temp 97.8(TE); Pulse Ox 99% on R/A; Weight 86.18 kg ca1 (R); Height 5 ft. 6 in. (167.64 cm) (R); 22:15 BP 107 / 72; Pulse 79; Resp 17; Pulse Ox 99% ; Pain 0/10; bb 23:49 BP 111 / 71; Pulse 76; Resp 17; Pulse Ox 99% ; Pain 0/10; ll1 19:56 Body Mass Index 30.67 (86.18 kg, 167.64 cm) ca1 MDM: 20:15 Patient medically screened. cp 21:00 Differential diagnosis: Ectopic , non-specific abd pain, Ovarian Torsion, cp Pelvic Inflammatory Disease, Pyelonephritis, Tubal Ovarian Abcess, Ureterolithiasis, urinary tract infection. 23:40 Data reviewed: vital signs, nurses notes, lab test result(s), radiologic studies, CT cp scan, I have discussed the patient's presentation/case with the attending Emergency Department Physician; and as a result, I will discharge patient. 23:40 Counseling: I had a detailed discussion with the patient and/or guardian regarding: the cp historical points, exam findings, and any diagnostic results supporting the discharge/admit diagnosis, lab results, radiology results, the need for outpatient follow up, an OB/Gyne specialist, to return to the emergency department if symptoms worsen or persist or if there are any questions or concerns that arise at home. 23:40 Response to treatment: the patient's symptoms have markedly improved after treatment, cp and as a result, I will discharge patient. Special discussion: Based on the patient's Hx, exam, and Dx evaluation, there is no indication for emergent surgery or inpatient Tx. It is understood by the patient/guardian that if the Sx's persist or worsen they need to return immediately for re-evaluation. 03/12 20:17 Order name: Basic Metabolic Panel; Complete Time: 21:31 cp 03/12 20:17 Order name: CBC with Diff; Complete Time: 21:31 cp 03/12 20:17 Order name: Hepatic Function; Complete Time: 21:31 cp 03/12 20:17 Order name: Lipase; Complete Time: 21:31 cp 03/12 20:17 Order name: Urine Microscopic Only; Complete Time: 22:53 cp 03/12 20:44 Order name: Urine Dipstick--Ancillary (enter results); Complete Time: 21:31 mw2 03/12 20:17 Order name: IV Saline Lock; Complete Time: 20:27 cp 03/12 20:17 Order name: Labs collected and sent; Complete Time: 20:27 cp 03/12 20:17 Order name: Urine Dipstick-Ancillary (obtain specimen); Complete Time: 20:42 cp 03/12 20:44 Order name: Urine --Ancillary (enter results); Complete Time: 21:31 mw2 03/12 21:32 Order name: CT Abd/Pelvis - IV Contrast Only cp 03/12 20:17 Order name: Urine Test (obtain specimen); Complete Time: 20:42 cp Administered Medications: 23:40 Not Given (Patient Refused): TORadol - Ketorolac 15 mg IVP once ll1 Disposition: 03/12/20 23:41 Discharged to Home. Impression: Pain localized to other parts of lower abdomen. - Condition is Stable. - Discharge Instructions: Abdominal Pain, Adult. - Medication Reconciliation Form, Thank You Letter, Antibiotic Education, Prescription Opioid Use form. - Follow up: Pradip Cash MD; When: 2 - 3 days; Reason: Recheck today's complaints. - Problem is new. - Symptoms have improved. Addendum: 03/14/2020 04:30 Co-signature as Attending Physician, Jemal Encarnacion MD. m Signatures: Dispatcher [employer] EDMS Clarence Rodriguez PA PA cp Danielle Romo, RN RN ca1 Bryan Hurley RN RN ll1 Jemal Encarnacion MD MD mh7 Corrections: (The following items were deleted from the chart) 03/12 23:52 23:41 03/12/2020 23:41 Discharged to Home. Impression: Pain localized to other parts of ll1 lower abdomen. Condition is Stable. Forms are Medication Reconciliation Form, Thank You Letter, Antibiotic Education, Prescription Opioid Use. Follow up: Pradip Cash; When: 2 - 3 days; Reason: Recheck today's complaints. Problem is new. Symptoms have improved. cp
--- NOTE | 2020-03-12 23:41 | ER ---
Nurse's Notes [facility] Name: Jazmin Lott Age: 19 yrs Sex: Female : 2000 Arrival Date: 03/12/2020 Time: 19:31 Bed 28 Private MD: Diagnosis: Pain localized to other parts of lower abdomen Presentation: 03/12 19:56 Chief complaint: Patient states: Diagnosed with PID about a month ago, completed abx ca1 treatment and was fine. Today, it seems to be coming back. C/O lower abdominal pain. Denies N/V/Diarrhea/constipation. Reports dizziness a few minutes ago. Denies urinary symptoms. Coronavirus screen: Client denies travel out of the [place] in the last 14 days. At this time, the client does not indicate any symptoms associated with coronavirus-19. Ebola Screen: Patient negative for fever greater than or equal to 101.5 degrees Fahrenheit, and additional compatible Ebola Virus Disease symptoms Patient denies exposure to infectious person. Patient denies travel to an Ebola-affected area in the 21 days before illness onset. No symptoms or risks identified at this time. Initial Sepsis Screen: Does the patient meet any 2 criteria? No. Patient's initial sepsis screen is negative. Does the patient have a suspected source of infection? No. Patient's initial sepsis screen is negative. Risk Assessment: Do you want to hurt yourself or someone else? Patient reports no desire to harm self or others. Onset of symptoms was March 12, 2020. 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 - Social history:: Smoking status: Patient reports the use of cigarette tobacco products, smokes one pack cigarettes per day. Screenin:09 Abuse screen: Denies threats or abuse. Nutritional screening: No deficits noted. ll1 Tuberculosis screening: No symptoms or risk factors identified. Fall Risk IV access (20 points). Total Osorio Fall Scale indicates No Risk (0-24 pts). Assessment: 20:30 General: Appears in no apparent distress. Behavior is calm, cooperative. Pain: ll1 Complains of pain in lower abdomen Quality of pain is described as crampy, Pain began 1 day ago. Is intermittent. Neuro: No deficits noted. Cardiovascular: No deficits noted. Respiratory: No deficits noted. GI: Abdomen is flat, Bowel sounds present X 4 quads. Abd is soft and non tender X 4 quads. Reports lower abdominal pain, cramping. : Denies burning with urination, cramping lower quadrant(s). 21:30 Reassessment: Patient appears in no apparent distress at this time. No changes from ll1 previously documented assessment. Patient and/or family updated on plan of care and expected duration. Pain level reassessed. Patient is alert, oriented x 3, equal unlabored respirations, skin warm/dry/pink. 22:30 Reassessment: Patient appears in no apparent distress at this time. No changes from ll1 previously documented assessment. Patient and/or family updated on plan of care and expected duration. Pain level reassessed. Patient is alert, oriented x 3, equal unlabored respirations, skin warm/dry/pink. 23:30 Reassessment: Patient appears in no apparent distress at this time. No changes from ll1 previously documented assessment. Patient and/or family updated on plan of care and expected duration. Pain level reassessed. Patient is alert, oriented x 3, equal unlabored respirations, skin warm/dry/pink. Vital Signs: 19:56 BP 107 / 64; Pulse 87; Resp 15 S; Temp 97.8(TE); Pulse Ox 99% on R/A; Weight 86.18 kg ca1 (R); Height 5 ft. 6 in. (167.64 cm) (R); 22:15 BP 107 / 72; Pulse 79; Resp 17; Pulse Ox 99% ; Pain 0/10; bb 23:49 BP 111 / 71; Pulse 76; Resp 17; Pulse Ox 99% ; Pain 0/10; ll1 19:56 Body Mass Index 30.67 (86.18 kg, 167.64 cm) ca1 ED Course: 19:31 Patient arrived in ED. es 19:59 Triage completed. ca1 20:00 Arm band placed on right wrist. ca1 20:01 Clarence Rodriguez PA is PHCP. cp 20:01 Jemal Encarnacion MD is Attending Physician. cp 20:12 Bryan Hurley, ANA MARIA is Primary Nurse. ll1 20:30 Inserted saline lock: 20 gauge in right antecubital area, using aseptic technique. ll1 Blood collected. 21:09 Patient has correct armband on for positive identification. Bed in low position. Call ll1 light in reach. Side rails up X 1. 22:25 CT Abd/Pelvis - IV Contrast Only In Process Unspecified. EDMS 23:40 Pradip Cash MD is Referral Physician. cp 23:49 IV discontinued, intact, bleeding controlled, No redness/swelling at site. Pressure ll1 dressing applied. 23:50 No provider procedures requiring assistance completed. ll1 Administered Medications: 23:40 Not Given (Patient Refused): TORadol - Ketorolac 15 mg IVP once ll1 Outcome: 23:41 Discharge ordered by MD. cp 23:51 Discharged to home ambulatory. ll1 23:51 Condition: stable 23:51 Discharge instructions given to patient, Instructed on discharge instructions, follow up and referral plans. Demonstrated understanding of instructions, follow-up care. 23:52 Patient left the ED. ll1 Signatures: Dispatcher [employer] EDChristal Vance Brenda, RN RN Clarence Martines PA PA Danielle Ruiz RN RN ca1 Bryan Hurley RN RN ll1
[2020-03-12 23:59] VITALS: TEMP 97.8; O2SAT 99
[2020-03-13 00:21] VITALS: BP 111/71
--- NOTE | 2020-03-13 10:28 | RAD REPORT ---
EXAM DESCRIPTION: CT - Abdomen Pelvis W Contrast - 03/12/2020 10:25 pm CLINICAL HISTORY: The patient is 19 years old and is Female; ABD PAIN TECHNIQUE: Axial computed tomography images of the abdomen and pelvis with intravenous contrast. S agittal and coronal reformatted images were created and reviewed. This CT exam was performed using one or more of the following dose reduction techniques: automated exposure control, adjustment of t he mA and/or kV according to patient size, and/or use of iterative reconstruction technique. DLP: 1589 mGy*cm COMPARISON: None. FINDINGS: LUNG BASES: Lung bases are clear. HEART: Visualized heart is normal. ABDOMEN: LIVER: Unremarkable. No mass. GALLBLADDER AND BILE DUCTS: Contracted gallbladder with suggestion of intraluminal stone. No ductal dilation. PANCREAS: Unremarkable. No mass. No ductal dilation. SPLEEN: Unremarkable. No splenomegaly. ADRENALS: Unremarkable. No mass. KIDNEYS AND URETERS: Unremarkable. No solid mass. No hydronephrosis. STOMACH AND BOWEL: Unremarkable. No obstruction. No mucosal thickening. PELVIS: APPENDIX: The appendix is seen and is within normal limits. BLADDER: Bladder is decompressed. No intraluminal stone. REPRODUCTIVE: Unremarkable as visualized. ABDOMEN and PELVIS: INTRAPERITONEAL SPACE: Unremarkable. No free air. No significant fluid collection. BONES/JOINTS: No acute fracture. No dislocation. SOFT TISSUES: Unremarkable. VASCULATURE: Mildly prominent right pelvic vasculature. No abdominal aortic aneurysm. LYMPH NODES: Unremarkable. No enlarged lymph nodes. IMPRESSION: 1. No acute abdominal or pelvic abnormality. 2. Contracted gallbladder with suggestion of intraluminal stone. No CT evidence of acute cholecysti tis. Right upper quadrant ultrasound may be diagnostic use. 3. Mildly prominent right pelvic vasculature. Correlate for signs of pelvic congestion syndrome. Electronically signed by: Wei Dangelo DO 03/12/2020 10:37 PM CDT Due to temporary technical issues with the PACS/Fluency reporting system, reports are being signed by the in house radiologist without review as a courtesy to ensure prompt reporting. The interpreting r adiologist is fully responsible for the content of the report.
== END 2020-03-12 23:52 | disposition home or self-care (01) ==
LOC: ER 19:26
DX: R10.30 Lower abdominal pain, unspecified (principal); F17.210 Nicotine dependence, cigarettes, uncomplicated; Z88.1 Allergy status to other antibiotic agents
CPT/HCPCS: 85025; 80048; 36415; 81025; 80076; 83690; 74177; 99283; Q9967; 81003; 81015

== ENCOUNTER 2020-07-11 | Emergency (ER) | payer SELFPAY ==
--- OUTSIDE RECORDS SUMMARY | 2020-07-11 18:44 | XMS REPORT | Summary of Care ---
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 [address], [place] [id number] [phone] Allergies No Known Allergiesdocumented as of this encounter (statuses as of 06/04/2020) Medications Medication Sig Dispensed Refills Start Date End Date Status vitamin w/FA Take 1 tablet by 100 tablet 3 06/10/2019 Active tabletIndications: mouth daily. (spontaneous vaginal delivery) docusate calcium 240 Take 1 capsule by 60 capsule 1 06/10/2019 Active mg capsuleIndications: mouth once daily (spontaneous as needed for vaginal delivery) Constipation. ferrous sulfate 325 mg Take 1 tablet by 60 tablet 2 06/10/2019 Active (65 mg iron) mouth 2 (two) tabletIndications: times daily. (spontaneous vaginal delivery) ibuprofen 600 mg Take 1 tablet by 60 tablet 1 06/10/2019 Active tabletIndications: mouth every 6 (spontaneous vaginal (six) hours as delivery) needed for Pain (scale 1-3) or Pain (scale 4-6) (Pain). Take with food or milk. ibuprofen 800 mg Take 1 tablet by 20 tablet 0 02/26/2020 Active tabletIndications: PID mouth every 6 (acute pelvic (six) hours as inflammatory disease) needed for Pain (scale 4-6). documented as of this encounter (statuses as of 06/04/2020) Active Problems Problem Noted Date Pain pelvic 04/01/2020 Encounter for IUD removal 10/05/2019 Well woman exam 09/20/2019 Other general counseling and advice for contraceptive management 09/20/2019 Obesity (BMI 30-39.9) 06/09/2019 Tobacco use 10/20/2018 Overview: Quit with Other depression 12/19/2017 documented as of this encounter (statuses as of 06/04/2020) Resolved Problems Problem Noted Date Resolved Date [...] as of this encounter (statuses as of 06/04/2020) Immunizations Name Administration Dates Next Due HPV9 09/18/2019, 07/11/2018, 06/11/2018 Influenza Virus Vaccine Quad .5 mL IM 6+ 06/04/2020, 019 MO Rho (d) Immune Globulin 06/10/2019, 03/29/2019, 06/11/2018 TDAP 03/29/2019, 04/18/2018 documented as of this encounter Social History Tobacco Use Types Packs/Day Years Used Date Current Every Day Smoker Cigarettes 0.05 Sta rted: 06/2019 Smokeless Tobacco: Never Used Comments: was smoking 1 cigarrette a day Alcohol Use Drinks/Week oz/Week Comments No Sex Assigned at Date Recorded Not on file COVID-19 Exposure Response Date Recorded In the last month, have you been in contact with No / Unsure 06/04/2020 3:48 PM CDT someone who was confirmed or suspected to have Coronavirus / COVID-19? documented as of this encounter Last Filed Vital Signs Vital Sign Reading Time Taken Comments Blood Pressure 124/62 06/04/2020 3:48 PM CDT Pulse 90 06/04/2020 3:48 PM CDT Temperature 36.2 C (97.1 F) 06/04/2020 3:48 PM CDT Respiratory Rate 16 06/04/2020 3:48 PM CDT Oxygen Saturation - - Inhaled Oxygen Concentration - - Weight 85.3 kg (188 lb) 06/04/2020 3:48 PM CDT Height 167.6 cm (5' 6") 06/04/2020 3:48 PM CDT Body Mass Index 30.34 06/04/2020 3:48 PM CDT documented in this encounter Progress Notes RodrigoanazoraidaMagedOfelia Christel, WHCNP - 06/04/2020 4:00 PM CDT Chief complaint: Chief Complaint Patient presents with 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 She reports she is doing well today with no issues or concerns. She reports she has been with her current partner for the past 5 months. She reportshe does not have any children, but they desire to have children together. Histories OB History Para Term AB Living 2 2 1 1 2 SAB TAB Ectopic Multiple Live Births 0 2 # Outcome Date GA Lbr Buzz/2nd Weight Sex Delivery Anes PTL Lv 2 Term 06/09/19 38w4d 6 lb 8.4 oz (2.96 kg) M NORMAL SPONT EPI N KELLEE 1 06/10/18 35w4d 5 lb 8.2 oz (2.5 kg) F VAGINAL EPI KELLEE Comments: [place] Screen #1: 06/11/2018 NORMAL (IDS) Maternal Age: 17; :1; Parity:1 Mother's Blood Type:B neg Baby's Blood Type:O pos, JHOANA negative Maternal Serological Test:normal Maternal Group B Strep Screening:unknown Adequate Treatment:yes Pre Past Medical History: Diagnosis Date Anemia, 06/12/2018 Other depression 12/19/2017 Pyelectasis 01/30/2019 Family History Problem Relation Age of Onset Diabetes Maternal Grandmother Arthritis Maternal Grandmother defects Maternal Grandmother Depression Mother No Significant Medical Problems Father Neurological Brother Asthma NoFHx Breast Cancer NoFHx Colon Cancer NoFHx Ovarian Cancer NoFHx Uterine Cancer NoFHx Cancer NoFHx Genetic NoFHx Heart NoFHx High cholesterol NoFHx Hypertension NoFHx Mental retardation NoFHx Psychiatry NoFHx Osteoporosis NoFHx Family Status Relation Name Status MGMo Alive Mo Alive Fa Alive Sis Alive Bro Alive Autism NoFHx (Not Specified) Past Surgical History: Procedure Laterality Date ADENOIDECTOMY Social History Socioeconomic History Marital status: Single Spouse name: Not on file Number of children: Not on file Years of education: Not on file Highest education level: Not on file Occupational History Not on file Social Needs Financial resource strain: Not on file Food insecurity Worry: Not on file Inability: Not on file Transportation needs Medical: Not on file Non-medical: Not on file Tobacco Use Smoking status: Current Every Day Smoker Packs/day: 0.05 Types: Cigarettes Start date: 06/2019 Smokeless tobacco: Never Used Tobacco comment: was smoking 1 cigarrette a day Substance and Sexual Activity Alcohol use: No Drug use: No Sexual activity: Yes Partners: Male control/protection: None Comment: last sexual intercourse 09/18/2019 Lifestyle Physical activity Days per week: Not on file Minutes per session: Not on file Stress: Not on file Relationships Social connections Talks on phone: Not on file Gets together: Not on file Attends samaritan service: Not on file Active member of club or organization: Not on file Attends meetings of clubs or organizations: Not on file Relationship status: Not on file Intimate partner violence Fear of current or ex partner: Not on file Emotionally abused: Not on file Physically abused: Not on file Forced sexual activity: Not on file Other Topics Concern Not on file Social History Narrative Patient lives with mom and brother and children. Patient denies any pets. Patient states she is temple. Social History Substance and Sexual Activity Sexual Activity Yes Partners: Male control/protection: None Comment: last sexual intercourse 09/18/2019 Labs No new labs and Office Visit on 04/01/2020 Component Date Value C. trachomatis Nucleic A* 04/01/2020 Negative N. gonorrhoeae Nucleic A* 04/01/2020 Negative Admission on 03/21/2020, Discharged on 03/22/2020 Component Date Value NA 03/21/2020 138 K 03/21/2020 3.8 CL 03/21/2020 104 CO2 TOTAL 03/21/2020 26 AGAP 03/21/2020 8 BUN 03/21/2020 13 GLUCOSE 03/21/2020 75 CREATININE 03/21/2020 0.90 TOTAL BILI 03/21/2020 0.1 CALCIUM 03/21/2020 9.7 T PROTEIN 03/21/2020 8.1 ALBUMIN 03/21/2020 4.7 ALK PHOS 03/21/2020 48 ALTv 03/21/2020 15 AST(SGOT) 03/21/2020 22 eGFR Calculation (Non-Af* 03/21/2020 80.7 eGFR Calculation (Rosanna* 03/21/2020 97.8 WBC 03/21/2020 6.77 RBC 03/21/2020 4.51 HGB 03/21/2020 11.1* HCT 03/21/2020 35.4* MCV 03/21/2020 78.5* MCH 03/21/2020 24.6* MCHC 03/21/2020 31.4* RDW-SD 03/21/2020 44.7 RDW-CV 03/21/2020 15.8* PLT 03/21/2020 309 MPV 03/21/2020 9.5 NRBC/100 WBC 03/21/2020 0.0 NRBC x10^3 03/21/2020 <0.01 GRAN MAT (NEUT) % 03/21/2020 47.1 IMM GRAN % 03/21/2020 0.30 LYMPH % 03/21/2020 38.6 MONO % 03/21/2020 9.7 EOS % 03/21/2020 3.4 BASO % 03/21/2020 0.9 GRAN MAT x10^3(ANC) 03/21/2020 3.19 IMM GRAN x10^3 03/21/2020 <0.03 LYMPH x10^3 03/21/2020 2.61 MONO x10^3 03/21/2020 0.66 EOS x10^3 03/21/2020 0.23 BASO x10^3 03/21/2020 0.06 APPEARANCE 03/21/2020 Cloudy* COLOR 03/21/2020 Yellow PH 03/21/2020 7.0 SP GRAVITY 03/21/2020 1.020 GLU U QUAL 03/21/2020 Normal BLOOD 03/21/2020 Negative KETONES 03/21/2020 Negative PROTEIN 03/21/2020 Negative UROBILIN 03/21/2020 Normal BILIRUBIN 03/21/2020 Negative NITRITE 03/21/2020 Negative LEUK SUZANNA 03/21/2020 Negative RBC/HPF 03/21/2020 1 WBC/HPF 03/21/2020 1 BACTERIA 03/21/2020 Few* SQ EPITH 03/21/2020 6 POCT PREG 03/21/2020 Negative On board controls accept* 03/21/2020 present POCT PREG LOT # 03/21/2020 [id number] POCT PREG TEST DA* 03/21/2020 03/07/2021 C. trachomatis Nucleic A* 03/21/2020 Negative N. gonorrhoeae Nucleic A* 03/21/2020 Negative Wet Prep 03/22/2020 No Fungal elements seen Wet Prep 03/22/2020 No Budding yeast per high-power field Wet Prep 03/22/2020 No Trichomonas vaginalis present Wet Prep 03/22/2020 Few Epithelial cells Wet Prep 03/22/2020 Few Clue cells present Wet Prep 03/22/2020 Few WBC per high-power field Wet Prep 03/22/2020 Few Organisms seen Trichomonas Nucleic Acid 03/21/2020 Negative Radiology No new radiology. Allergies Jazmin has No Known Allergies. Medications Jazmin has a current medication list which includes the following prescription(s): ibuprofen, docusate calcium, ferrous sulfate, ibuprofen, and vitamin w/fa. Review of Systems Constitutional: Negative. HENT: Negative. Eyes: Negative. Respiratory: Negative. Breasts: Negative. Cardiovascular: Negative. Gastrointestinal: Negative. Genitourinary: Negative. Musculoskeletal: Negative. Skin: Negative. Neurological: Negative. Psychiatric/Behavioral: Negative. Endocrine: Endocrine negative BP 124/62 (BP Location: Right arm, Patient Position: Sitting, BP CUFF SIZE: Adult Medium) | Pulse 90 | Temp 36.2 C (97.1 F) (Oral) | Resp 16 | Ht 5' 6" (1.676 m) | Wt 188 lb (85.3 kg) | BMI 30.34 kg/m Pregravid BMI: Could not be calculated Physical Exam Vitals reviewed. Constitutional: She is oriented to person, place, and time. She appears well- developed and well-nourished. Her body habitus is normal. Cardiovascular: Regular rate and rhythm. No peripheral edema present. Pulmonary/Chest: Normal inspiratory effort. Neuro/Psychiatric: She has a normal mood and affect. She is oriented to person, place, and time. Skin: Skin normal. No lesion, no rash and no ulceration present. Assessment/Plan Return to clinic in 16 weeks. for WWE or sooner as needed Other general counseling and advice for contraceptive management (primary encounter diagnosis) Comment: none Plan: as needed mgmt Need for influenza vaccination Comment: as ordered Plan: FLU VACC([id number]), 6+ MONTHS, IM, QUAD (FLUZONE/FLULAVAL/FLUARIX) This visit did not involve counseling and coordination that comprised more than 50% of the visit time. REGGIE Velasquez 06/04/2020 4:40 PM documented in this encounter Plan of Treatment Date Type Specialty Care Team Description 09/24/2020 Office Visit [facility]ell[facility] Norah Pavon, [facility] [address] [place], [place] [address] [phone] Health Maintenance Due Date Last Done Comments PNEUMOCOCCAL 0-64 YEARS 06/22/2020 Postpone d from COMBINED SERIES (1 of 1 - 2006 (Alternative PPSV23) Guidelines) Depression Screening 09/20/2020 09/20/2019 INFLUENZA VACCINE (#1) 2021 10/20/2018 Postponed from 04/08/2020 (Refu sed) CHLAMYDIA SCREENING 04/01/2021 04/01/2020, 03/21/2020, 02/26/2020, Additional history exists MENINGOCOCCAL B VACCINES (1 06/04/2021 Post poned from of 2 - Risk Bexsero 2-dose 09/19 (Alternative series) Guidelines) WELL CARE VISIT: -06/04/2021 06/04/2020 YEARS (yearly) DTaP,Tdap,and Td Vaccines 03/29/2029 03/29/2019, 04/18/2018 (3 - Td) HPV VACCINES Completed 09/18/2019, 07/11/2018, 06/11/2018 MENINGOCOCCAL VACCINE Aged Out No longer eligible based on patient 's age to complete this topic documented as of this encounter Procedures Procedure Name Priority Date/Time Associated Diagnosis Comme nts FLU VACC ([id number]), Routine 06/04/2020 3:53 PM Need for inf luenza 6+ MONTHS, IM, QUAD CDT vaccination documented in this encounter Results Not on filedocumented in this encounter Visit Diagnoses Diagnosis Other general counseling and advice for contraceptive management - Primary Need for influenza vaccination Need for prophylactic vaccination and in oculation against influenza documented in this encounter Insurance Payer Benefit Plan / Subscriber ID Effective Dates Phone Addre ss Type Group [place] [facility] [place] [id number] 2019-Present Medicaid HEALTH PLAN - HEALTH MANAGED MEDICAID [id number] documented as of this encounter Advance Directives Name Relationship Healthcare Agent Relationship Co mmunication Suzy Lott Mother Health Care Agent
--- OUTSIDE RECORDS SUMMARY | 2020-07-11 18:44 | XMS REPORT | Summary of Care ---
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 Encounter Details Date Type Department Care Team Description 06/04/2020 Office Visit [facility]- AkinsiGustavo conwayOfelia Oth er general counseling and advice for contraceptive management (Primary Dx); REGGIE Davenport Need for influenza vaccination 110[address] [facility] [address] [place], [place] [phone] Allergies No Known Allergiesdocumented as of this [...] Chief complaint: Chief Complaint 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 Patient states she is episcopalian. Social History Substance and Sexual Activity Sexual [...] 03/21/2020 present POCT PREG LOT # 03/21/2020 [id number] POCT PREG TEST DA* 03/21/2020 03/07/2021 C. [...] influenza vaccination Comment: as ordered Plan: FLU VACC([id number]), 6+ MONTHS, IM, QUAD (FLUZONE/FLULAVAL/FLUARIX) This visit did not involve counseling and coordination that comprised more than 50% of the visit time. REGGIE Velasquez 06/04/2020 4:40 PM documented in this encounter Plan of Treatment Date Type Specialty Care Team Description 09/24/2020 [facility] [address] [place], [place] [address] [phone] Health Maintenance Due Date Last Done Comments [...] Date/Time Associated Diagnosis Comme nts FLU VACC ([id number]), Routine 06/04/2020 3:53 PM Need for inf [...] Effective Dates Phone Addre ss Type Group [place] [facility] [place] [facility] [id number] 2019-Present Medicaid HEALTH PLAN - HEALTH MANAGED MEDICAID [id number] documented as of this encounter Advance Directives Name Relationship Healthcare Agent Relationship Co mmunication Suzy Lott Mother Health Care Agent
--- OUTSIDE RECORDS SUMMARY | 2020-07-11 18:44 | XMS REPORT | Continuity of Care Document ---
:2000 Author Organization [facility] t Address [address] [place] [address] Care Team Providers Name Role Phone Christel Oviedo Attending Clinician Problems This patient has no known problems. Allergies, Adverse Reactions, Alerts This patient has no known allergies or adverse reactions. Medications This patient has no known medications. Procedures This patient has no known procedures. Encounters Start End Encounter Admission Attending Care Care Encounter Source Date/Time Date/Time Type Type Clinicians Facility Department ID 2020-06-04 2020-06-04 Office ELODIA Pavon [id number] 15:42:24 16:35:24 Visit Ofelia Kearney [facility] [id number] [facility] [id number] MATERNAL [id number] & CHILD [address] [place] [address] Results This patient has no known results.
--- NOTE | 2020-07-11 22:18 | ER ---
Nurse's Notes [facility] Name: Jazmin Lott Age: 19 yrs Sex: Female : 2000 Arrival Date: 07/11/2020 Time: 18:46 Bed Waiting Private MD: Diagnosis: Presentation: 12 18:58 Chief complaint: Patient states: Swollen and painful gums that began Tuesday. ss Coronavirus screen: Client denies travel out of the [place] in the last 14 days. Ebola Screen: Patient denies exposure to infectious person. Patient denies travel to an Ebola-affected area in the 21 days before illness onset. Initial Sepsis Screen: Does the patient meet any 2 criteria? No. Patient's initial sepsis screen is negative. Does the patient have a suspected source of infection? No. Patient's initial sepsis screen is negative. Risk Assessment: Do you want to hurt yourself or someone else? Patient reports no desire to harm self or others. Onset of symptoms was July 09, 2020. 18:58 Method Of Arrival: Ambulatory 18:58 Acuity: ADEN 4 Historical: - Allergies: 19:00 Doxycycline; ss - PMHx: 19:00 pelvic inflammatory disease; ss - PSHx: 19:00 None; ss - Immunization history:: Adult Immunizations up to date. - Social history:: Smoking status: Patient reports the use of cigarette tobacco products, denies chronic smoking, but will smoke occasionally. Vital Signs: 18:58 BP 120 / 78; Pulse 81; Resp 16; Temp 98.9(TE); Pulse Ox 100% on R/A; Weight 81.65 kg; ss Height 5 ft. 6 in. (167.64 cm); Pain 6/10; 18:58 Body Mass Index 29.05 (81.65 kg, 167.64 cm) ED Course: 18:46 Patient arrived in ED. as 18:59 Triage completed. ss 19:00 Arm band placed on right wrist. 21:55 Patient's name was called from [facility]. No response. Unable to locate patient. Will lp1 disposition as left without being seen by a provider. Administered Medications: No medications were administered Outcome: 22:17 Patient left the ED. lp1 Signatures: Ching Gr Shelby, RN RN ss Barba, Heaven, RN RN lp1
== END 2020-07-11 22:17 | disposition left against medical advice (07) ==
DX: Z53.21 Procedure and treatment not carried out due to patient leaving prior to being seen by health care provider (principal)
CPT/HCPCS: 99281

== ENCOUNTER 2020-12-31 13:39 | Emergency (ER) | payer OTHER ==
--- OUTSIDE RECORDS SUMMARY | 2020-12-31 13:45 | XMS REPORT | Continuity of Care Document ---
:2000 Author Organization [facility] t Address [address] [place] [address] Care Team Providers Name Role Phone Visit, Nurse Attending Clinician Unavailable Eduardo PAYNE Attending Clinician Akinsipe WHCNP, C Attending Clinician Doctor Unassigned, Name Attending Clinician Unavailable Ultrasound Attending Clinician Unavailable Eduardo PAYNE Admitting Clinician Problems This patient has no known problems. Allergies, Adverse Reactions, Alerts This patient has no known allergies or adverse reactions. Medications This patient has no known medications. Procedures This patient has no known procedures. Encounters Start End Encounter Admission Attending Care Care Encounter Source Date/Time Date/Time Type Type Clinicians Facility Department ID 2020-12-24 2020-12-24 Nurse Visit, [facility] [id number] 14:21:35 14:59:58 Visit [facility] CERTIFIED WELDER [id number] Nurse [facility] [id number] MATERNAL [id number] & CHILD [address] [place] [address] 2020-12-18 2020-12-18 [facility] Farhat Clarkn [facility] [id number] 18:50:00 20:20:00 Encounter [place] [id number] [place] [id number] [place] [id number] 2020-12-18 2020-12-18 Telephone ELODIA Pavon [id number] 00:00:00 00:00:00 Ofelia C CERTIFIED WELDER [id number] [facility] [id number] MATERNAL [id number] & CHILD [address] [facility] 2020-12-18 2020-12-18 Orders Doctor LUISA [id number] 00:00:00 00:00:00 Only Unassigned, JANNA [id number] [place] [id number] 2020-12-17 2020-12-17 Nurse Visit, [facility] [id number] 13:44:33 14:05:24 Visit Prashanthchp CERTIFIED WELDER [id number] Nurse [facility] [id number] MATERNAL [id number] & CHILD [address] [facility] 2020-12-17 2020-12-17 Retail Coverage Merchandiser Ultrasound, [facility] [id number] 13:10:05 13:40:05 Visit Tayopraveen CERTIFIED WELDER [id number] REGIONAL [id number] MATERNAL [id number] & CHILD [address] [facility] 2020-12-17 2020-12-17 Abstract Librado OHMARANDA [id number] 00:00:00 00:00:00 Ofelia C CERTIFIED WELDER [id number] REGIONAL [id number] MATERNAL [id number] & CHILD [address] [facility] 2020-12-10 2020-12-10 Routine Librado OHMARANDA [id number] 13:44:46 14:32:39 Ofelia C CERTIFIED WELDER [id number] Visit [facility] [id number] MATERNAL [id number] & CHILD [address] [facility] 2020-12-10 2020-12-10 Retail Coverage Merchandiser Ultrasound, [facility] [id number] 13:01:03 13:31:03 Visit Nathan CERTIFIED WELDER [id number] REGIONAL [id number] MATERNAL [id number] & CHILD [address] [facility] 2020-12-03 2020-12-03 Nurse Visit, [facility] [id number] 10:22:01 10:42:50 Visit Arvind CERTIFIED WELDER [id number] Nurse [facility] [id number] MATERNAL [id number] & CHILD [address] [facility] Results This patient has no known results.
[2020-12-31 14:44] LABS: Urine Blood Negative (Negative); Urine Glucose Trace (Negative); Urine Protein Trace (Negative); Urine Specific Gravity >=1.030 (1.005-1.030)
[2020-12-31] MEDS ORDERED: NA CHLORIDE 0.9% 1,000 ML ONE (14:44)
[2020-12-31] MEDS ORDERED: PROMETHAZINE INJ 25 MG/ML AMP ONE (14:44)
[2020-12-31 14:46] LABS: Absolute Lymphocytes (CBC) 0.4 K/uL (0.7-4.9); Basophils % 0.4 % (0-1.3); Hematocrit 35.8 % (36.0-45.0); Lymphocytes % 2.8 % (15.3-44.8); MPV 7.7 fL (7.6-11.3); RBC Red Blood Cell Count 4.19 M/uL (3.86-4.86)
[2020-12-31 15:02] LABS: ALT/SGPT 19 U/L (12-78); AST/SGOT 13 U/L (15-37); Albumin 3.1 g/dL (3.4-5.0); Alkaline Phosphatase 60 U/L (45-117); BUN Blood Urea Nitrogen 13 mg/dL (7-18); Bicarbonate 22 mmol/L (21-32); Bilirubin Direct < 0.1 mg/dL (0-0.2); Bilirubin Total 0.4 mg/dL (0.2-1.0); Glucose Level 86 mg/dL (74-106); Potassium 3.9 mmol/L (3.5-5.1); Protein, Total 7.6 g/dL (6.4-8.2); Sodium Level 138 mmol/L (136-145)
[2020-12-31 15:03] LABS: Lipase 105 U/L (73-393)
[2020-12-31 15:06] LABS: Urine Bacteria <20 /HPF (<20); Urine RBC <5 /HPF (NONE SEEN)
--- NOTE | 2020-12-31 15:38 | EDPHYS ---
Physician Documentation [facility] Name: Jazmin Lott Age: 20 yrs Sex: Female : 2000 Arrival Date: 12/31/2020 Time: 13:44 Bed 26 Private MD: ED Physician Lenin Rajput HPI: 12/31 15:35 This 20 yrs old Female presents to ER via Ambulatory with complaints of kb Abdominal Pain, Diarrhea. 15:35 This 20 yrs old Female presents to ER via Ambulatory with complaints of kb n/v,Diarrhea. 15:35 The patient presents to the emergency department with nausea, vomiting, diarrhea. kb Onset: The symptoms/episode began/occurred this morning. Possible causes: sick contacts, by family. The symptoms are aggravated by nothing. The symptoms are alleviated by nothing. Associated signs and symptoms: Pertinent positives: diarrhea, nausea, vomiting, Pertinent negatives: abdominal pain, fever. Severity of symptoms: At their worst the symptoms were moderate in the emergency department the symptoms are unchanged. The patient has not experienced similar symptoms in the past. The patient has not recently seen a physician. Pt reports n/v/d that started this morning. Son has had v/d for a few days and daughter started vomiting this morning. No fever. 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 - Social history:: Smoking status: Patient denies any tobacco usage or history of. ROS: 15:35 Constitutional: Negative for fever, chills, and weight loss. kb 15:35 Abdomen/GI: Positive for nausea, vomiting, and diarrhea, Negative for abdominal pain. 15:35 All other systems are negative. Exam: 15:35 Constitutional: This is a well developed, well nourished patient who is awake, alert, kb and in no acute distress. Head/Face: Normocephalic, atraumatic. ENT: Moist Mucous membranes Cardiovascular: Regular rate and rhythm with a normal S1 and S2. No gallops, murmurs, or rubs. No pulse deficits. Respiratory: Respirations even and unlabored. No increased work of breathing, no retractions or nasal flaring. Abdomen/GI: Soft, non-tender. No distention Skin: Warm, dry with normal turgor. Normal color. MS/ Extremity: Pulses equal, no cyanosis. Neurovascular intact. Full, normal range of motion. Neuro: Awake and alert, GCS 15, oriented to person, place, time, and situation. Moves all extremities. Normal gait. Psych: Awake, alert, with orientation to person, place and time. Behavior, mood, and affect are within normal limits. Vital Signs: 13:53 BP 123 / 71; Pulse 97; Resp 16; Temp 97.2; Pulse Ox 100% on R/A; Weight 88.45 kg; em Height 5 ft. 6 in. (167.64 cm); Pain 0/10; 15:00 BP 126 / 69; Pulse 88; Resp 18; Temp 98.2(O); Pulse Ox 100% on R/A; Weight 88.45 kg; ld1 Height 5 ft. 3 in. (160.02 cm); Pain 0/10; 15:38 BP 128 / 72; Pulse 86; Resp 18; Pulse Ox 100% on R/A; Pain 0/10; ld1 15:00 Body Mass Index 34.54 (88.45 kg, 160.02 cm) ld1 MDM: 14:06 Patient medically screened. kb 15:34 Data reviewed: vital signs, nurses notes. Data interpreted: Pulse oximetry: on room air kb is 100 %. Interpretation: normal. Counseling: I had a detailed discussion with the patient and/or guardian regarding: the historical points, exam findings, and any diagnostic results supporting the discharge/admit diagnosis, lab results, the need for outpatient follow up, a family practitioner, to return to the emergency department if symptoms worsen or persist or if there are any questions or concerns that arise at home. 15:34 ED course: Educated not to change the liter box while . Verbal understanding kb received. . 15:37 ED course: Pt tolerating PO intake. Educated to follow up with PCP/OB. janell 12/31 14:18 Order name: Basic Metabolic Panel; Complete Time: 15:06 kb 12/31 14:18 Order name: CBC with Diff kb 12/31 14:18 Order name: Hepatic Function; Complete Time: 15: kb 12/31 14:18 Order name: Lipase; Complete Time: 15:06 kb 12/31 14:18 Order name: Urine Microscopic Only; Complete Time: 15:08 kb 12/31 14:18 Order name: IV Saline Lock; Complete Time: 14:38 kb 12/31 14:18 Order name: Labs collected and sent; Complete Time: 14:38 kb 12/31 14:44 Order name: Urine Dipstick-Ancillary; Complete Time: 14:52 EDME 12/31 14:45 Order name: Urine --Ancillary (enter results) bd 12/31 14:46 Order name: Urine --Ancillary [facility] 12/31 15:49 Order name: CBC Smear Scan EDME 12/31 14:18 Order name: Urine Dipstick-Ancillary (obtain specimen); Complete Time: 14:45 kb 12/31 14:18 Order name: FHT's; Complete Time: 14:59 kb 12/31 15:06 Order name: PO challenge; Complete Time: 15:13 kb Administered Medications: 14:39 Drug: Phenergan (promethazine) 6.25 mg Route: IVP; Site: right antecubital; vg1 15:00 Follow up: Response: No adverse reaction ld1 14:39 Drug: NS 0.9% 1000 ml Route: IV; Rate: 1000 ml; Site: right antecubital; vg1 15:14 Follow up: Response: No adverse reaction ld1 Disposition: 16:56 Co-signature as Attending Physician, Lenin Rajput MD I agree with the assessment and kdr plan of care. Disposition: 12/31/20 15:37 Discharged to Home. Impression: Nausea and vomiting, Diarrhea, unspecified. - Condition is Stable. - Discharge Instructions: Food Choices to Help Relieve Diarrhea, Adult, Viral Gastroenteritis, Adult, [id number], Nausea and Vomiting, Adult, [id number]. - Prescriptions for promethazine 25 mg Oral Tablet - take 1 tablet by ORAL route every 8 hours As needed; 10 tablet. - Medication Reconciliation Form, Thank You Letter, Antibiotic Education, Prescription Opioid Use form. - Follow up: Emergency Department; When: As needed; Reason: Worsening of condition. Follow up: Private Physician; When: 2 - 3 days; Reason: Recheck today's complaints, Continuance of care, Re-evaluation by your physician. Signatures: Dispatcher [employer] EDJacqueline Alvarado FNP-C MAGAZINE WRITER-Ckb Lenin Rajput MD MD [facility] Sathish Hairston, RN RN em Malou Carrillo, RN RN vg1 Crista Prieto, ANA MARIA RN ld1 Corrections: (The following items were deleted from the chart) 15:52 15:37 12/31/2020 15:37 Discharged to Home. Impression: Nausea and vomiting; Diarrhea, ld1 unspecified. Condition is Stable. Forms are Medication Reconciliation Form, Thank You Letter, Antibiotic Education, Prescription Opioid Use. Follow up: Emergency Department; When: As needed; Reason: Worsening of condition. Follow up: Private Physician; When: 2 - 3 days; Reason: Recheck today's complaints, Continuance of care, Re-evaluation by your physician. kb
--- NOTE | 2020-12-31 15:38 | ER ---
Nurse's Notes [facility] Name: Jazmin Lott Age: 20 yrs Sex: Female : 2000 Arrival Date: 12/31/2020 Time: 13:44 Bed 26 Private MD: Diagnosis: Nausea and vomiting;Diarrhea, unspecified Presentation: 12/31 13:53 Chief complaint: Patient states: N/V/D since this morning, also reports being 24 weeks em , bought a new cat and son has been playing in the [employer] box. Coronavirus screen: Client denies travel out of the [place] in the last 14 days. Ebola Screen: Patient negative for fever greater than or equal to 101.5 degrees Fahrenheit, and additional compatible Ebola Virus Disease symptoms Patient denies exposure to infectious person. Patient denies travel to an Ebola-affected area in the 21 days before illness onset. No symptoms or risks identified at this time. Initial Sepsis Screen: Does the patient meet any 2 criteria? HR > 90 bpm. No. Patient's initial sepsis screen is negative. Does the patient have a suspected source of infection? No. Patient's initial sepsis screen is negative. Risk Assessment: Do you want to hurt yourself or someone else? Patient reports no desire to harm self or others. Onset of symptoms was December 31, 2020. 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 - Social history:: Smoking status: Patient denies any tobacco usage or history of. Screenin:15 Abuse screen: Denies threats or abuse. Denies injuries from another. Nutritional ld1 screening: No deficits noted. Tuberculosis screening: No symptoms or risk factors identified. Fall Risk None identified. Assessment: 14:15 General: Appears in no apparent distress. comfortable, Behavior is calm, cooperative, ld1 appropriate for age. Pain: Denies pain. Neuro: Level of Consciousness is awake, alert, obeys commands, Oriented to person, place, time, situation, Appropriate for age. Cardiovascular: Capillary refill < 3 seconds Patient's skin is warm and dry. Respiratory: Airway is patent Respiratory effort is even, unlabored, Respiratory pattern is regular, symmetrical. GI: Abdomen is flat, non-distended, Bowel sounds present X 4 quads. Abd is soft and non tender X 4 quads. Reports nausea, vomiting, Parent/caregiver reports the patient having Pt reports that she is 24 weeks . : No signs and/or symptoms were reported regarding the genitourinary system. EENT: No signs and/or symptoms were reported regarding the EENT system. Derm: No signs and/or symptoms reported regarding the dermatologic system. Musculoskeletal: No signs and/or symptoms reported regarding the musculoskeletal system. 15:00 Reassessment: FHT 152. ld1 15:38 Reassessment: No changes from previously documented assessment. Patient and/or family ld1 updated on plan of care and expected duration. Pain level reassessed. Patient denies pain at this time. Vital Signs: 13:53 BP 123 / 71; Pulse 97; Resp 16; Temp 97.2; Pulse Ox 100% on R/A; Weight 88.45 kg; em Height 5 ft. 6 in. (167.64 cm); Pain 0/10; 15:00 BP 126 / 69; Pulse 88; Resp 18; Temp 98.2(O); Pulse Ox 100% on R/A; Weight 88.45 kg; ld1 Height 5 ft. 3 in. (160.02 cm); Pain 0/10; 15:38 BP 128 / 72; Pulse 86; Resp 18; Pulse Ox 100% on R/A; Pain 0/10; ld1 15:00 Body Mass Index 34.54 (88.45 kg, 160.02 cm) ld1 ED Course: 13:44 Patient arrived in ED. ds1 13:55 Triage completed. em 13:56 Arm band placed on. em 14:06 Jacqueline Hernandez FNP-C [facility]. kb 14:06 Lenin Rajput MD is Attending Physician. kb 14:15 rCista Prieto RN is Primary Nurse. ld1 14:15 Patient has correct armband on for positive identification. Bed in low position. Call ld1 light in reach. Pulse ox on. NIBP on. Door closed. Noise minimized. Warm blanket given. 14:35 Initial lab(s) drawn, by nv, sent to lab. Inserted saline lock: 20 gauge in right vg1 antecubital area, using aseptic technique. Blood collected. 15:20 Urine --Ancillary (enter results) Sent. sv 15:38 No provider procedures requiring assistance completed. IV discontinued, bleeding ld1 controlled, No redness/swelling at site. Administered Medications: 14:39 Drug: Phenergan (promethazine) 6.25 mg Route: IVP; Site: right antecubital; vg1 15:00 Follow up: Response: No adverse reaction ld1 14:39 Drug: NS 0.9% 1000 ml Route: IV; Rate: 1000 ml; Site: right antecubital; vg1 15:14 Follow up: Response: No adverse reaction ld1 Outcome: 15:37 Discharge ordered by . kb 15:51 Discharged to home ambulatory. ld1 15:51 Condition: stable 15:51 Discharge instructions given to patient, Instructed on discharge instructions, follow up and referral plans. medication usage, Demonstrated understanding of instructions, follow-up care, medications. 15:52 Patient left the ED. ld1 Signatures: Jacqueline Hernandez, TRESTLE MECHANIC-C TRESTLE MECHANIC-CkSheree Renteria, RN RN Sathish Hairston RN Jane Foreman ds1 Mlaou Carrillo RN RN 1 Crista Prieto, RN RN ld1 Corrections: (The following items were deleted from the chart) 14:03 13:53 Chief complaint: Patient states: N/V/D since this morning, also reports being 24 em weeks , bought a new cat and son has been playing in the liter box em
[2020-12-31 15:49] LABS: Blood Morphology Comment NOT SEEN (NOT SEEN); Platelet Estimate ADEQ; White Blood Cell Scan OK (OK)
[2020-12-31 17:47] VITALS: O2SAT 100
[2020-12-31 17:49] VITALS: TEMP 98.2
[2020-12-31 17:52] VITALS: BP 128/72
[2020-12-31 20:18] LABS: Urine Specific Gravity/Preg >1.030 (1.005-1.030)
== END 2020-12-31 15:52 | disposition home or self-care (01) ==
LOC: ER 13:39
DX: R19.7 Diarrhea, unspecified (principal); R11.2 Nausea with vomiting, unspecified
CPT/HCPCS: 85025; 80048; 36415; 81025; 80076; 83690; 96374; 99284; J2550; J7030; 81003; 81015

== ENCOUNTER 2021-02-07 23:28 | Emergency (ER) | payer OTHER ==
--- OUTSIDE RECORDS SUMMARY | 2021-02-07 23:43 | XMS REPORT | Continuity of Care Document ---
:2000 Author Organization [facility] t Address [address] [place] [address] Care Team Providers Name Role Phone Christel Oviedo Attending Clinician Visit, Nurse Attending Clinician Unavailable Problems This patient has no known problems. Allergies, Adverse Reactions, Alerts This patient has no known allergies or adverse reactions. Medications This patient has no known medications. Procedures This patient has no known procedures. 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 [id number] Visit REGIONAL [id number] MATERNAL [id number] & CHILD 107 [facility] 2021-01-28 2021-01-28 Routine Librado [facility] [id number] 13:07:23 14:00:04 Ofelia C BUTCHER APPRENTICE [id number] Visit REGIONAL [id number] MATERNAL [id number] & CHILD 107 [facility] 2021-01-222021-01-22 Nurse Visit, [facility] [id number] 13:32:06 13:56:46 Visit [facility] BUTCHER APPRENTICE [id number] Nurse [facility] [id number] MATERNAL [id number] & CHILD 107 [facility] 2021-01-15 2021-01-15 Nurse Visit, [facility] [id number] 13:44:54 14:08:48 Visit [facility] BUTCHER APPRENTICE [id number] Nurse [facility] [id number] MATERNAL [id number] & CHILD 107 [facility] 2021-01-07 2021-01-07 Routine A[place]ipe, [facility] [id number] 13:50:51 14:21:33 Ofelia C BUTCHER APPRENTICE [id number] Visit [facility] [id number] MATERNAL [id number] & CHILD 107 [facility] Results This patient has no known results.
--- NOTE | 2021-02-08 01:13 | EDPHYS ---
Physician Documentation [facility] Name: Jazmin Lott Age: 20 yrs Sex: Female : 2000 Arrival Date: 02/07/2021 Time: 23:57 Bed 2 Private MD: ED Physician Wm Conteh HPI: 02/08 01:04 This 20 yrs old Female presents to ER via Ambulatory with complaints of Rash. pkl 01:04 The patient or guardian complains of infected wound. The complaints affect the left pkl forearm. Onset: The symptoms/episode began/occurred 2 day(s) ago. Associated signs and symptoms: The patient has no apparent associated signs or symptoms. Patient is 7 months . Historical: - Allergies: 00:40 Doxycycline; em - PMHx: 00:40 pelvic inflammatory disease; em - PSHx: 00:40 None; em - Immunization history:: Adult Immunizations up to date. - Social history:: Smoking status: Patient denies any tobacco usage or history of. ROS: 01:04 Eyes: Negative for injury, pain, redness, and discharge, ENT: Negative for injury, pkl pain, and discharge, Neck: Negative for injury, pain, and swelling, Cardiovascular: Negative for chest pain, palpitations, and edema, Respiratory: Negative for shortness of breath, cough, wheezing, and pleuritic chest pain. 01:04 Abdomen/GI: Positive for gravid uterus. 01:04 Back: Negative for acute changes. 01:04 : Negative for urinary symptoms. 01:04 MS/extremity: Negative for 01:04 MS/extremity: Positive for infected wound left forearm. 01:04 Neuro: Negative for altered mental status, loss of consciousness. Exam: 01:04 Head/Face: Normocephalic, atraumatic. Eyes: Pupils equal round and reactive to light, pkl extra-ocular motions intact. Lids and lashes normal. Conjunctiva and sclera are non-icteric and not injected. Cornea within normal limits. Periorbital areas with no swelling, redness, or edema. ENT: Nares patent. No nasal discharge, no septal abnormalities noted. Tympanic membranes are normal and external auditory canals are clear. Oropharynx with no redness, swelling, or masses, exudates, or evidence of obstruction, uvula midline. Mucous membranes moist. Neck: Trachea midline, no thyromegaly or masses palpated, and no cervical lymphadenopathy. Supple, full range of motion without nuchal rigidity, or vertebral point tenderness. No Meningismus. Chest/axilla: Normal chest wall appearance and motion. Nontender with no deformity. No lesions are appreciated. Cardiovascular: Regular rate and rhythm with a normal S1 and S2. No gallops, murmurs, or rubs. Normal PMI, no JVD. No pulse deficits. Respiratory: Lungs have equal breath sounds bilaterally, clear to auscultation and percussion. No rales, rhonchi or wheezes noted. No increased work of breathing, no retractions or nasal flaring. Abdomen/GI: Soft, non-tender, with normal bowel sounds. No distension or tympany. No guarding or rebound. No evidence of tenderness throughout. Back: No spinal tenderness. No costovertebral tenderness. Full range of motion. Skin: Warm, dry with normal turgor. Normal color with no rashes, no lesions, and no evidence of cellulitis. Neuro: Awake and alert, GCS 15, oriented to person, place, time, and situation. Cranial nerves II-XII grossly intact. Motor strength 5/5 in all extremities. Sensory grossly intact. Cerebellar exam normal. Normal gait. 01:04 Musculoskeletal/extremity: Extremities: grossly normal except: noted in the left forearm: infected wound. Vital Signs: 00:39 BP 97 / 65; Pulse 78; Resp 18; Temp 98.4; Pulse Ox 99% on R/A; Weight 88.9 kg; Height 5 em ft. 6 in. (167.64 cm); Pain 4/10; 00:39 Body Mass Index 31.63 (88.90 kg, 167.64 cm) em MDM: 00:57 Patient medically screened. pkl 01:04 Data reviewed: vital signs, nurses notes. pkl 02/08 01:04 Order name: Heart Tones; Complete Time: 01:30 pkl Administered Medications: 01:22 Drug: KeFLEX (cephalexin) 500 mg Route: PO; lp1 01:30 Follow up: Response: No adverse reaction; Medication administered at discharge. lp1 Disposition Summary: 02/08/21 01:13 Discharge Ordered Location: Home pkl Problem: new pkl Symptoms: are unchanged pkl Condition: Stable pkl Diagnosis - Infected wound left forearm. 3 rd Trimester pkl Followup: pkl - With: Private Physician - When: 2 - 3 days - Reason: Re-evaluation by your physician Discharge Instructions: - Discharge Summary Sheet pkl Forms: - Medication Reconciliation Form pkl - Thank You Letter pkl - Antibiotic Education pkl - Prescription Opioid Use pkl Prescriptions: - Augmentin 875-125 mg Oral Tablet - take 1 tablet by ORAL route every 12 hours for 7 days; 14 tablet; Refills: 0, pkl Product Selection Permitted Signatures: Wm Conteh MD MD pkl Sathish Hairston, RN RN em Heaven Barba, RN RN lp1
--- NOTE | 2021-02-08 01:13 | ER ---
Nurse's Notes [facility] Name: Jazmin Lott Age: 20 yrs Sex: Female : 2000 Arrival Date: 02/07/2021 Time: 23:57 Bed 2 Private MD: Diagnosis: Infected wound left forearm. 3 rd Trimester Presentation: 02/08 00:39 Chief complaint: Patient states: wound on the left forearm for 2 days, reports pain in em forearm, denies fever. Coronavirus screen: Client denies travel out of the [place] in the last 14 days. Ebola Screen: Patient negative for fever greater than or equal to 101.5 degrees Fahrenheit, and additional compatible Ebola Virus Disease symptoms Patient denies exposure to infectious person. Patient denies travel to an Ebola-affected area in the 21 days before illness onset. No symptoms or risks identified at this time. Initial Sepsis Screen: Does the patient meet any 2 criteria? No. Patient's initial sepsis screen is negative. Does the patient have a suspected source of infection? No. Patient's initial sepsis screen is negative. Risk Assessment: Do you want to hurt yourself or someone else? Patient reports no desire to harm self or others. Onset of symptoms was February 08, 2021. 00:39 Method Of Arrival: Ambulatory em 00:39 Acuity: ADEN 4 em Historical: - Allergies: 00:40 Doxycycline; em - PMHx: 00:40 pelvic inflammatory disease; em - PSHx: 00:40 None; em - Immunization history:: Adult Immunizations up to date. - Social history:: Smoking status: Patient denies any tobacco usage or history of. Screenin:00 Abuse screen: Denies threats or abuse. Denies injuries from another. Nutritional lp1 screening: No deficits noted. Tuberculosis screening: No symptoms or risk factors identified. Fall Risk None identified. Assessment: 01:00 General: Appears in no apparent distress. Behavior is calm, cooperative, appropriate lp1 for age. Pain: Complains of pain in palmar aspect of left forearm Pain currently is 2 out of 10 on a pain scale. Neuro: No deficits noted. Cardiovascular: No deficits noted. Respiratory: No deficits noted. GI: Abdomen is round reports 29 weeks . : No signs and/or symptoms were reported regarding the genitourinary system. EENT: No signs and/or symptoms were reported regarding the EENT system. Derm: Wound noted palmar aspect of left forearm Wound is circular wound, white bed noted, about a amirah size. Musculoskeletal: No deficits noted. Vital Signs: 00:39 BP 97 / 65; Pulse 78; Resp 18; Temp 98.4; Pulse Ox 99% on R/A; Weight 88.9 kg; Height 5 em ft. 6 in. (167.64 cm); Pain 4/10; 00:39 Body Mass Index 31.63 (88.90 kg, 167.64 cm) em Vitals: 01:33 Heart Tones 128 bpm. lp1 ED Course: 02/07 23:57 Patient arrived in ED. ag3 07/04 00:40 Triage completed. em 00:40 Arm band placed on. em 00:56 Wm Conteh MD is Attending Physician. pkl 01:00 Patient has correct armband on for positive identification. lp1 01:13 Heaven Barba, RN is Primary Nurse. lp1 01:15 No provider procedures requiring assistance completed. Patient did not have IV access lp1 during this emergency room visit. Administered Medications: 01:22 Drug: KeFLEX (cephalexin) 500 mg Route: PO; lp1 01:30 Follow up: Response: No adverse reaction; Medication administered at discharge. lp1 Outcome: 01:13 Discharge ordered by . pkl 01:39 Discharged to home ambulatory. lp1 01:39 Condition: good 01:39 Discharge instructions given to patient, Instructed on discharge instructions, follow up and referral plans. medication usage, Demonstrated understanding of instructions, follow-up care, medications, Prescriptions given X 1. 01:41 Patient left the ED. lp1 Signatures: Wm Conteh MD MD pkl Sathish Hairston, RN RN em Heaven Barba, RN RN lp1 Jannie Calderón ag3
[2021-02-08] MEDS ORDERED: CEPHALEXIN 250 MG CAP ONE (01:37)
[2021-02-08 01:55] VITALS: BP 97/65; TEMP 98.4; O2SAT 99
== END 2021-02-08 01:41 | disposition home or self-care (01) ==
LOC: ER 23:28
DX: O26.893 Other specified pregnancy related conditions, third trimester (principal); Z3A.28 28 weeks gestation of pregnancy; Z88.1 Allergy status to other antibiotic agents
CPT/HCPCS: 99283

== ENCOUNTER 2021-03-27 10:44 | Emergency (ER) | payer OTHER ==
--- OUTSIDE RECORDS SUMMARY | 2021-03-27 10:47 | XMS REPORT | Continuity of Care Document ---
:2000 Author Organization [facility] t Address [address] [place] [address] Care Team Providers Name Role Phone John DO Attending Clinician Doctor Unassigned, Name Attending Clinician Unavailable Indra BARRAGANP, F Attending Clinician Librado HUYNHP, C Attending Clinician Problems This patient has no known problems. Allergies, Adverse Reactions, Alerts This patient has no known allergies or adverse reactions. Medications This patient has no known medications. Procedures This patient has no known procedures. Encounters Start End Encounter Admission Attending Care Care Encounter Source Date/Time Date/Time Type Type Clinicians Facility Department ID 2021-03-27 2021-03-27 Emergency Singer [facility] [id number] 09:34:00 10:19:00 Miah Vasquez [id number] [place] [id number] [place] [id number] 2021-03-27 2021-03-27 Orders Doctor MORAN [id number] 00:00:00 00:00:00 Only UnassJANNA melendez [id number] [place] [facility] [id number] 2021-03-15 2021-03-16 Emergency Zofiaunbree, [facility] [id number] 22:55:00 00:07:00 Donnavenu Jayant [place] [id number] [place] [id number] [place] [id number] 2021-03-04 2021-03-04 Routine [facility] [id number] 13:16:42 13:49:49 Ofelia C TAVERN KEEPER [id number] [facility] [id number] MATERNAL [id number] & CHILD 107 [facility] 2021-02-18 2021-02-18 Routine [facility] [id number] 13:28:35 14:29:08 Ofelia C TAVERN KEEPER [id number] [facility] [id number] MATERNAL [id number] & CHILD 107 [facility] Results This patient has no known results.
--- NOTE | 2021-03-27 13:36 | ER ---
Nurse's Notes [facility] Name: Jazmin Lott Age: 20 yrs Sex: Female : 2000 Arrival Date: 03/27/2021 Time: 10:49 Bed DIS16 Private MD: Diagnosis: Coronavirus infection, unspecified Presentation: 03/27 11:45 Chief complaint: Patient states: weakness, lethargy, cough. Coronavirus screen: Client da3 presents with at least one sign or symptom that may indicate coronavirus-19. Ebola Screen: No symptoms or risks identified at this time. Risk Assessment: Do you want to hurt yourself or someone else? Patient reports no desire to harm self or others. 11:45 Method Of Arrival: Ambulatory da3 11:45 Acuity: ADEN 4 da3 11:53 Acuity: ADEN 5 da3 Triage Assessment: 11:47 General: Appears in no apparent distress. comfortable, Behavior is calm. da3 - Immunization history:: Client reports having NOT received the Covid vaccine. Vital Signs: 11:46 BP 104 / 38; Pulse 98; Resp 18; Temp 97.4; Pulse Ox 98% on R/A; da3 13:59 BP 103 / 58; Pulse 129; Resp 18; Temp 96.5; Pulse Ox 98% ; dw ED Course: 10:49 Patient arrived in ED. as 10:50 Jacqueline Hernandez FNP-C is [facility]. kb 10:50 Lenin Rajput MD is Attending Physician. kb 11:46 Triage completed. da3 13:55 Loreta Velez, RN is Primary Nurse. dw Administered Medications: No medications were administered Outcome: 13:35 Discharge ordered by . kb 13:55 Patient left the ED. dw Signatures: Jacqueline Hernandez FNP-C FNP-Loreta Power, RN RN Ching Tyler David, RN RN da3
--- NOTE | 2021-03-27 13:36 | EDPHYS ---
Physician Documentation [facility] Name: Jazmin Lott Age: 20 yrs Sex: Female : 2000 Arrival Date: 03/27/2021 Time: 10:49 Bed DIS16 Private MD: ED Physician Lenin Rajput HPI: 03/27 16:46 This 20 yrs old Female presents to ER via Ambulatory with complaints of r/o kb covid. 16:46 The patient or guardian reports cough, that is intermittent, described as mild, flu kb symptoms, low-grade fever, myalgias. Onset: The symptoms/episode began/occurred 4 day(s) ago. Severity of symptoms: At their worst the symptoms were mild, in the emergency department the symptoms are unchanged. Modifying factors: The symptoms are alleviated by nothing, the symptoms are aggravated by nothing. Associated signs and symptoms: Pertinent positives: fever, rhinorrhea. The patient has not experienced similar symptoms in the past. The patient has not recently seen a physician. Pt reports she was exposed to covid recently and has had symptoms for 4 days. Reports entire family has symptoms. - Immunization history:: Client reports having NOT received the Covid vaccine. ROS: 16:44 Abdomen/GI: Negative for abdominal pain, nausea, vomiting, diarrhea, and constipation. kb 16:44 Constitutional: Positive for body aches, chills, fatigue, fever, malaise. 16:44 Respiratory: Positive for cough, Negative for dyspnea on exertion, hemoptysis, orthopnea, pleurisy, shortness of breath, sputum production, wheezing. 16:44 All other systems are negative. Exam: 16:46 Constitutional: This is a well developed, well nourished patient who is awake, alert, kb and in no acute distress. Head/Face: Normocephalic, atraumatic. ENT: Moist Mucous membranes Respiratory: Respirations even and unlabored. No increased work of breathing, no retractions or nasal flaring. Abdomen/GI: Soft, non-tender. No distention Skin: Warm, dry with normal turgor. Normal color. MS/ Extremity: Pulses equal, no cyanosis. Neurovascular intact. Full, normal range of motion. Neuro: Awake and alert, GCS 15, oriented to person, place, time, and situation. Moves all extremities. Normal gait. Psych: Awake, alert, with orientation to person, place and time. Behavior, mood, and affect are within normal limits. Vital Signs: 11:46 BP 104 / 38; Pulse 98; Resp 18; Temp 97.4; Pulse Ox 98% on R/A; da3 13:59 BP 103 / 58; Pulse 129; Resp 18; Temp 96.5; Pulse Ox 98% ; dw MDM: 11:31 Patient medically screened. kb 13:19 Data reviewed: vital signs, nurses notes. Data interpreted: Pulse oximetry: on room air kb is 98 %. Interpretation: normal. Counseling: I had a detailed discussion with the patient and/or guardian regarding: the historical points, exam findings, and any diagnostic results supporting the discharge/admit diagnosis, lab results, the need for outpatient follow up, a family practitioner, to return to the emergency department if symptoms worsen or persist or if there are any questions or concerns that arise at home. 03/27 13:45 Order name: SARS-COV-2 RT PCR; Complete Time: 13:45 EDMS Administered Medications: No medications were administered Disposition: 14:46 Co-signature as Attending Physician, Lenin Rajput MD I agree with the assessment and kdr plan of care. Disposition Summary: 03/27/21 13:35 Discharge Ordered Location: Home kb Condition: Stable kb Diagnosis - Coronavirus infection, unspecified kb Followup: kb - With: Emergency Department - When: As needed - Reason: Worsening of condition Followup: kb - With: Private Physician - When: 2 - 3 days - Reason: Recheck today's complaints, Continuance of care, Re-evaluation by your physician Discharge Instructions: - Discharge Summary Sheet kb - Viral Respiratory Infection, [id number] kb - COVID-19 kb Forms: - Medication Reconciliation Form kb - Thank You Letter kb - Antibiotic Education kb - Prescription Opioid Use kb Signatures: Dispatcher [employer] EDMS Jacqueline Hernandez, MENTAL HEALTH NURSE-C MENTAL HEALTH NURSE-Lenin Parmar MD MD [facility] Rodolfo Reyes RN RN da3 Corrections: (The following items were deleted from the chart) 12:14 11:32 CORONAVIRUS+.BRZ ordered. EDMS EDMS
[2021-03-27 17:24] VITALS: BP 104/38; TEMP 97.4; O2SAT 98
== END 2021-03-27 13:55 | disposition home or self-care (01) ==
LOC: ER 10:44
DX: U07.1 COVID-19 (principal)
CPT/HCPCS: 99281; U0003

== ENCOUNTER 2021-05-19 23:40 | Emergency (ER) | payer OTHER ==
[2021-05-20 00:24] LABS: Urine Blood Negative (Negative); Urine Glucose Negative (Negative); Urine Protein Negative (Negative); Urine Specific Gravity >=1.030 (1.005-1.030)
[2021-05-20 01:05] LABS: Absolute Lymphocytes (CBC) 2.6 K/uL (0.7-4.9); Hematocrit 33.5 % (36.0-45.0); Lymphocytes % 47.6 % (15.3-44.8); MPV 7.3 fL (7.6-11.3); RBC Red Blood Cell Count 4.34 M/uL (3.86-4.86)
[2021-05-20 01:14] LABS: Potassium 3.8 mmol/L (3.5-5.1)
[2021-05-20] MEDS ORDERED: NA CHLORIDE 0.9% 1,000 ML ONE (01:19)
[2021-05-20 01:25] LABS: Urine Specific Gravity/Preg >1.030 (1.005-1.030)
[2021-05-20 01:40] LABS: Blood Morphology Comment NOT SEEN (NOT SEEN); Platelet Estimate ADEQ
--- NOTE | 2021-05-20 01:42 | EDPHYS ---
Physician Documentation [facility] Name: Jazmin Lott Age: 20 yrs Sex: Female : 2000 Arrival Date: 05/19/2021 Time: 23:44 Bed 4 Private MD: ED Physician Clarence Contreras HPI: 05/20 00:35 This 20 yrs old Female presents to ER via Ambulatory with complaints of kb Vaginal Bleeding, Dizziness, Rectal Bleeding. 00:35 The patient presents with dizziness, feeling faint. Onset: The symptoms/episode kb began/occurred last week. Context: occurred at home, just prior to the episode the patient experienced no apparent symptoms. Modifying factors: The symptoms are alleviated by the symptoms are aggravated by standing up, changing position. Associated signs and symptoms: Pertinent positives: vaginal bleeding. Severity of symptoms: At their worst the symptoms were moderate in the emergency department the symptoms are unchanged. Patient's baseline: Neuro: alert and fully oriented, Motor: no deficits, Ambulation: walks without assistance, Speech: normal. The patient has not experienced similar symptoms in the past. The patient has not recently seen a physician. 00:38 Pt reports vaginal bleeding intermittently for 6 weeks (). States she has had kb dizziness and a couple of syncopal episodes. Reports dizziness is worse with a lot of movements or changing position quickly. Historical: - Allergies: 05/19 23:58 Doxycycline; df1 - Home Meds: 23:58 None [Active]; df1 - PMHx: 23:58 pelvic inflammatory disease; df1 - PSHx: 23:58 None; df1 - Immunization history:: Adult Immunizations up to date, Client reports having NOT received the Covid vaccine. - Social history:: Smoking status: Patient reports the use of cigarette tobacco products, smokes one pack cigarettes per day. ROS: 05/20 00:41 Constitutional: Negative for fever, chills, and weight loss. kb : Positive for vaginal bleeding. Neuro: Positive for dizziness, syncope. All other systems are negative. Exam: 00:42 Constitutional: This is a well developed, well nourished patient who is awake, alert, kb and in no acute distress. Head/Face: Normocephalic, atraumatic. ENT: Moist Mucous membranes Cardiovascular: Regular rate and rhythm with a normal S1 and S2. No gallops, murmurs, or rubs. No pulse deficits. Respiratory: Respirations even and unlabored. No increased work of breathing, no retractions or nasal flaring. Abdomen/GI: Soft, non-tender. No distention Skin: Warm, dry with normal turgor. Normal color. MS/ Extremity: Pulses equal, no cyanosis. Neurovascular intact. Full, normal range of motion. Neuro: Awake and alert, GCS 15, oriented to person, place, time, and situation. Moves all extremities. Normal gait. Psych: Awake, alert, with orientation to person, place and time. Behavior, mood, and affect are within normal limits. Vital Signs: 05/19 23:55 BP 124 / 75; Pulse 85; Resp 18; Temp 98.4; Pulse Ox 100% on R/A; Weight 81.65 kg; df1 Height 5 ft. 6 in. (167.64 cm); Pain 0/10; 05/20 00:30 BP 117 / 71; Pulse 74; sj1 00:32 BP 112 / 77; Pulse 72; sj1 00:34 BP 122 / 88; Pulse 83; sj1 01:50 BP 105 / 72 RA Sitting (auto/reg); Pulse 64; Resp 15 S; Temp 97.7(O); Pulse Ox 100% on sj1 R/A; Pain 0/10; 05/19 23:55 Body Mass Index 29.05 (81.65 kg, 167.64 cm) df1 MDM: 00:02 Patient medically screened. kb 00:39 Data reviewed: vital signs, nurses notes. Data interpreted: Pulse oximetry: on room air kb is 100 %. Interpretation: normal. Counseling: I had a detailed discussion with the patient and/or guardian regarding: the historical points, exam findings, and any diagnostic results supporting the discharge/admit diagnosis, lab results, the need for outpatient follow up, an OB/Gyne specialist, to return to the emergency department if symptoms worsen or persist or if there are any questions or concerns that arise at home. 05/20 00:01 Order name: CBC with Diff; Complete Time: 01:41 kb 05/20 00:01 Order name: Basic Metabolic Panel; Complete Time: 01:16 kb 05/20 00:23 Order name: Urine Dipstick-Ancillary; Complete Time: 00:24 EDMS 05/20 01:00 Order name: Urine --Ancillary (enter results); Complete Time: 01:26 sj1 05/20 01:10 Order name: Manual Differential; Complete Time: 01:41 EDMS 05/20 00:01 Order name: IV Start; Complete Time: 00:43 kb 05/20 00:01 Order name: Orthostatics; Complete Time: 00:43 kb 05/20 00:02 Order name: Urine Dipstick-Ancillary (obtain specimen); Complete Time: 01:00 kb 05/20 00:02 Order name: Urine Test (obtain specimen); Complete Time: 00:59 kb 05/20 00:42 Order name: EKG; Complete Time: 00:43 kb 05/20 00:42 Order name: EKG - Nurse/Tech; Complete Time: 00:59 kb Administered Medications: 00:58 Drug: NS 0.9% 1000 ml Route: IV; Rate: 1000 ml; Site: right antecubital; sj1 Disposition: 07:53 Co-signature as Attending Physician, Clarence Contreras MD I agree with the assessment and keena plan of care. Disposition Summary: 05/20/21 01:41 Discharge Ordered Location: Home kb Condition: Stable kb Diagnosis - Dizziness and giddiness kb Followup: kb - With: Emergency Department - When: As needed - Reason: Worsening of condition Followup: kb - With: Private Physician - When: 2 - 3 days - Reason: Recheck today's complaints, Continuance of care, Re-evaluation by your physician Discharge Instructions: - Discharge Summary Sheet kb - Dizziness, [id number] kb Forms: - Medication Reconciliation Form kb - Thank You Letter kb - Antibiotic Education kb - Prescription Opioid Use kb Signatures: Dispatcher [employer] EDJacqueline Alvarado, INORGANIC CHEMISTRY PROFESSOR-C INORGANIC CHEMISTRY PROFESSOR-Clarence Cabello MD MD cha Furlich, Dawn df1 Celina Elizalde, RN RN sj1
--- NOTE | 2021-05-20 01:42 | ER ---
Nurse's Notes [facility] Name: Jazmin Lott Age: 20 yrs Sex: Female : 2000 Arrival Date: 05/19/2021 Time: 23:44 Bed 4 Private MD: Diagnosis: Dizziness and giddiness Presentation: 05/19 23:55 Chief complaint: Patient states: dizziness, syncopal episodes and vaginal bleeding. df1 Coronavirus screen: Vaccine status: Patient reports being unvaccinated. Client reports previous positive COVID test result. Date of collection: March 28, 2021. Ebola Screen: Patient negative for fever greater than or equal to 101.5 degrees Fahrenheit, and additional compatible Ebola Virus Disease symptoms Patient denies exposure to infectious person. Patient denies travel to an Ebola-affected area in the 21 days before illness onset. Initial Sepsis Screen: Does the patient meet any 2 criteria? No. Patient's initial sepsis screen is negative. Does the patient have a suspected source of infection? No. Patient's initial sepsis screen is negative. Risk Assessment: Do you want to hurt yourself or someone else? Patient reports no desire to harm self or others. 23:55 Method Of Arrival: Ambulatory df1 23:55 Acuity: ADEN 3 df1 23:59 Note Pt post 6 weeks, normal vaginal with no complications, presents with df1 vaginal bleeding, weakness, syncopal episodes and dizziness. Pt denies soaking through mark-pads. Also blood in stool from straining. Denies pain, N, V, fever. 05/20 01:53 Onset of symptoms was May 19, 2021. sj1 Triage Assessment: 01:52 General: Appears in no apparent distress. Behavior is calm, cooperative, appropriate sj1 for age. Pain: Denies pain. EENT: No deficits noted. Neuro: Reports dizziness. Cardiovascular: No deficits noted. Respiratory: No deficits noted. GI: Reports rectal bleeding. : Reports vaginal bleeding that is. Derm: No deficits noted. Musculoskeletal: No deficits noted. Historical: - Allergies: 05/19 23:58 Doxycycline; df1 - Home Meds: 23:58 None [Active]; df1 - PMHx: 23:58 pelvic inflammatory disease; df1 - PSHx: 23:58 None; df1 - Immunization history:: Adult Immunizations up to date, Client reports having NOT received the Covid vaccine. - Social history:: Smoking status: Patient reports the use of cigarette tobacco products, smokes one pack cigarettes per day. Screenin/13 01:52 Abuse screen: Denies threats or abuse. Denies injuries from another. Nutritional sj1 screening: No deficits noted. Tuberculosis screening: No symptoms or risk factors identified. Fall Risk None identified. Assessment: 01:53 : Reports vaginal bleeding that is. sj1 01:53 : sj1 Vital Signs: 05/19 23:55 BP 124 / 75; Pulse 85; Resp 18; Temp 98.4; Pulse Ox 100% on R/A; Weight 81.65 kg; df1 Height 5 ft. 6 in. (167.64 cm); Pain 0/10; 05/20 00:30 BP 117 / 71; Pulse 74; sj1 00:32 BP 112 / 77; Pulse 72; sj1 00:34 BP 122 / 88; Pulse 83; sj1 01:50 BP 105 / 72 RA Sitting (auto/reg); Pulse 64; Resp 15 S; Temp 97.7(O); Pulse Ox 100% on sj1 R/A; Pain 0/10; 05/19 23:55 Body Mass Index 29.05 (81.65 kg, 167.64 cm) df1 ED Course: 05/19 23:44 Patient arrived in ED. ja2 23:58 Triage completed. df1 05/20 00:01 Jacqueline Hernandez [facility]-C [facility]. kb 00:01 Clarence Contreras MD is Attending Physician. kb 01:52 Patient has correct armband on for positive identification. Bed in low position. Call sj1 light in reach. Side rails up X 1. 01:52 No provider procedures requiring assistance completed. IV discontinued, intact, sj1 bleeding controlled, No redness/swelling at site. 01:53 Arm band placed on right wrist. sj1 Administered Medications: 00:58 Drug: NS 0.9% 1000 ml Route: IV; Rate: 1000 ml; Site: right antecubital; sj1 Outcome: 01:41 Discharge ordered by . janell 01:52 Discharged to home ambulatory. sj1 01:52 Condition: stable 01:52 Discharge instructions given to patient, Instructed on discharge instructions, follow up and referral plans. Demonstrated understanding of instructions, follow-up care. 02:11 Patient left the ED. wg Signatures: Jacqueline Hernandez, BALING PRESS OPERATOR-C BALING PRESS OPERATOR-Reinaldo Estrada, RN Tamanna Vazquez Dawn df1 Celina Elizalde RN RN sj1
[2021-05-20 02:30] VITALS: O2SAT 100
[2021-05-20 02:35] VITALS: BP 105/72; TEMP 97.7
--- NOTE | 2021-05-20 16:37 | EKG ---
Test Date: 2021-05-20 Test Time: 00:53:23 Web Engineer: MEASUREMENT RESULTS: Intervals: Rate: 67 MA: 164 QRSD: 82 QT: 426 QTc: 450 [place]: P: 31 MA: 164 QRS: 19 T: 30 INTERPRETIVE STATEMENTS: Normal sinus rhythm with sinus arrhythmia Cannot rule out Anterior infarct, age undetermined Abnormal ECG No previous ECG available for comparison Electronically Signed On 05-20-21 16:35:37 CDT by Tommie Cohn
== END 2021-05-20 02:11 | disposition home or self-care (01) ==
LOC: ER 23:40
DX: R42 Dizziness and giddiness (principal); N93.9 Abnormal uterine and vaginal bleeding, unspecified; F17.210 Nicotine dependence, cigarettes, uncomplicated; Z88.1 Allergy status to other antibiotic agents
CPT/HCPCS: 93005; 85025; 80048; 36415; 81025; 81003; 99283; J7030

== ENCOUNTER 2022-01-19 08:19 | Emergency (ER) | payer OTHER ==
--- OUTSIDE RECORDS SUMMARY | 2022-01-19 08:39 | XMS REPORT | Continuity of Care Document ---
:2000 Author Organization [facility] t Address [address] [place] [address] Care Team Providers Name Role Phone Christel PAVON Primary Care Physician Unavailable Maurice BAHENA Attending Clinician Unavailable Kobi PAYNE Attending Clinician INDUCTION Attending Clinician Unavailable Jayant LOVE Attending Clinician Unavailable Christel PAVON Attending Clinician Unavailable Librado PAREDES C Attending Clinician Singer ARENAS Attending Clinician Doctor Unassigned, Name Attending Clinician Unavailable Risk Attending Clinician Unavailable Espinoza PAREDES, L Attending Clinician Indra ESCOBAR F Attending Clinician Visit, Nurse Attending Clinician Unavailable Eduardo PAYNE Attending Clinician Ultrasound Attending Clinician Unavailable Hodan PAYNE M Attending Clinician Natasha Petit MD Attending Clinician Natasha PETTIT Attending Clinician Unavailable Eamon PAYNE R Attending Clinician Alina Valle MD Attending Clinician Perez Petit DO Attending Clinician 1, Us Room Attending Clinician Unavailable Lab Attending Clinician Unavailable Humphrey WHCNP, L Attending Clinician FRANCIS, R Attending Clinician Unavailable Francis CITRUS FRUIT COLORER, R Attending Clinician Aden CITRUS FRUIT COLORER Attending Clinician Cha EMNP, R Attending Clinician Wero PAYNE, Cam Attending Clinician Phuc PAYNE Attending Clinician Josef CITRUS FRUIT COLORER, N Attending Clinician Faculty, [facility] Mfm Attending Clinician Unavailable EDUARDO Admitting Clinician Unavailable Jayant LOVE Admitting Clinician Unavailable Eduardo PAYNE Admitting Clinician Phuc PAYNE Admitting Clinician Payers Payer Name Policy Type Policy Number Effective Date Expiration Date Eloise HEALYS [id number] 2019 HEALTH 00:00:00 MEDICAID OF [place] [id number] 2019 00:00:00 Problems Condition Condition Condition Status Onset Resolution Last Treating Co mments Source Name Details Category Date Date Treatment Clinician Date 38 weeks 38 weeks Disease Active Unive rs gestation gestation 8-31 ity of of of 00:00: [place] 00 [facility] Labor Labor Disease Active Univers without without 8-31 it[place] of complic[place] [facility] Branch H/O H/O Disease Active Univers 8-18 ity of delivery, delivery, 00:00: Jose De Jesus s currently currently 00 [facility] , , Bran ch third third trimester trimester Rh Rh Disease Active Univers negative negative 6-23 ity of state in state in 00:00: [place] antepartum antepartum 00 Me dical period period Branch Anemia of Anemia of Disease Active Uni vers mother in mother in 6-11 ity of , , [place] ante[place] antepartum 00 Me dical Branch Nausea and Nausea and Disease Active U nivers vomiting vomiting 2-10 ity of during during 00:00: [place] 00 [facility] Supervisio Supervisio Disease Active U nivers n of n of 1-13 ity of high-risk high-risk 00:[place] [facility] Multiparit Multiparit Disease Active U nivers y y 1-13 ity of 00:00: [place] 00 [facility] History of History of Disease Active U nivers 1-13 ity of delivery delivery 00:00: [place] 00 [facility] Pain Pain Disease Active 2019- Univers pelvic pelvic 8-25 ity of 00:00: [place] 00 [facility] Encounter Encounter Disease Active 2019- Uni vers for IUD for IUD 2-28 ity of removal removal 00:00: [place] 00 [facility] Other Other Disease Active 2019- Univers general general 2-13 ity of counseling counseling [place] and advice and advice 00 Wy dical for [facility] contracept contracept farhat farhat management management Disease Active 2018-08 Univers (spontaneo (spontaneo 1-03 it y of us vaginal us vaginal [place] delivery[place] delivery[place] 00 [facility] Single Single Disease Active 2018-08 Univers live live 1-03 ity of 00:00: [place] [facility] Anemia, Anemia, Disease Active 2018- Univers 1-03 it y of 00:00: [address] Obesity Obesity Disease Active 2018-08 Univers (BMI (BMI 1-02 ity of 30-39.9) 30-39.9) 00:00: [place] [facility] 38 weeks 38 weeks Disease Active 2018-08 Unive rs gestation gestation 1-02 ity of of of 00:00: [place] 00 [facility] Obesity in Obesity in Disease Active 2019- U nivers 1-02 ity of 00:00: [place] 00 [facility] Supervisio Supervisio Disease Active 2019 U nivers n of n of 0-29 ity of high-risk high-risk 00:[place] [facility] Multiparit Multiparit Disease Active 2019 U nivers y y 0-29 ity of 00:00: [place] 00 [facility] Anemia of Anemia of Disease Active 2018-08 Overview: Univers mother in mother in 0-17 Verify if i ty of , , 00:00[place] ante[place] antepartum 00 is taking Medical iron/vit/ Branch pnv on next visit Vaginal Vaginal Disease Active 2019 Univers bleeding bleeding 9-10 ity of during during 00:00: [place] 00 [facility] Supervisio Supervisio Disease Active 2019 U nivers n of n of 7-16 ity of high-risk high-risk 00:[place] [facility] Branch Round Round Disease Active 2019 Univers ligament ligament 7-16 ity of pain pain 00:00: [place] 00 Medical Branch Pyelectasi Pyelectasi Disease Active 2019 Overview : Univers s s 6-25 Left and ity of 00:00: right [place] [address] pyelectas Medical is noted Branch on usg Rh Rh Disease Active Overview: Univer s negative negative 3-19 Will need ity of state in state in 00:00: rhogam at Man as antepartum antepartum 00 28 weeks Medical period period Branch Tobacco Tobacco Disease Active Overview: Univ ers use use 3-15 Quit with ity of 00:00: [place] [facility] Tobacco Tobacco Disease Active Overview: Univ ers use use 3-15 Quit with ity of 00:00: [place] [facility] Tobacco Tobacco Disease Active Overview: Univ ers use in use in 3-15 Formattin ity of 00:00: g of this [place] 00 note Medical might be Branch different from the original. Reports 1pk/day up until 3 days ago, reports quit History of History of Disease Active Overview : Univers 3-15 Delivery ity of delivery delivery 00:00: at 35 [place] 00 weeks Medical Branch Other Other Disease Active Univers depression depression 5-14 it y of 00:00: [place] [address] Medical Branch Allergies, Adverse Reactions, Alerts Allergy Allergy Status Severity Reaction(s) Onset Inactive Treating Comm ents Source Name Type Date Date Clinician Doxycycl Propensi Active Nausea Univer s ine ty to and/or 03-15 ity of adverse Vomiting 00:00: [place] reaction 00 Medical s Branch DOXYCYCL DRUG Active N/V Univers INE INGREDI 8-08 ity of 00:00: [place] [address] Medical Branch NO KNOWN Drug Active Univers ALLERGIE Class ity of S [facility] Social History Social Habit Start Date Stop Date Quantity Comments Source ASSERTION 2020-07-28 University of 00:00:00 [facility] Exposure to Not sure University SARS-CoV-2 (event) [facility] Cigarettes smoked 2021-04-08 2021-04-08 Univers ity of current (pack per 00:00:00 00:00:00 [facility] ed) - Reported Branch Tobacco use and 2021-04-08 2021-04-08 Never used Universit y of exposure 00:00:00 00:00:00 [facility] Alcohol intake 2021-04-08 2021-04-08 Current University of 00:00:00 00:00:00 non-drinker of [facility] alcohol (finding) [place] Tobacco Comment 2018-10-20 2018-10-20 was smoking 1 Univer sity of 00:00:00 00:00:00 cigarrette a day [facility] dical [place] History of tobacco 2020-08-17 2018-10-06 Cigarette Smoker University of use 00:00:00 00:00:00 [facility] Sex Assigned At 2000 2000 Universit y of 00:00:00 00:00:00 [facility] Smoking Status Start Date Stop Date Source Former smoker 2021-04-08 00:00:00 2021-04-08 00:00:00 Universi ty of [facility] Current every day 2020-04-01 00:00:00 [facility] [place] Medications Ordered Filled Start Stop Current Ordering Indication Dosage Frequency Signature Comments Components Source Medication Medication Date Date Medication? Clinician (SIG) Name Name sulfamethox 2020- No [id number] 1{tbl} Take 1 Univers azole-trime 04-14 tablet by it y of thoprim 00:00: 04:59 mouth 2 [place] 400-80 mg 00 :00 (two) Medical per tablet times [place] daily for 5 days. sulfamethox 2020- No [id number] 1{tbl} Take 1 Univers azole-trime 04-14 tablet by it y of thoprim 00:00: 04:59 mouth 2 [place] 400-80 mg 00 :00 (two) Medical per tablet times [place] daily for 5 days. sulfamethox 2020- No [id number] 1{tbl} Take 1 Univers azole-trime 04-14- tablet by it y of thoprim 00:00: 04:59 mouth 2 [place] 400-80 mg 00 :00 (two) Medical per tablet times Branch daily for 5 days. sulfamethox 2020- No [id number] 1{tbl} Take 1 Univers azole-trime 04-14- tablet by it y of thoprim 00:00: 04:59 mouth 2 [place] 400-80 mg 00 :00 (two) Medical per tablet times Branch daily for 5 days. sulfamethox 2020- No [id number] 1{tbl} Take 1 Univers azole-trime 04-14 tablet by it y of thoprim 00:00: 04:59 mouth 2 [place] 400-80 mg 00 :00 (two) Medical per tablet times Branch daily for 5 days. sulfamethox 2020- No [id number] 1{tbl} Take 1 Univers azole-trime 04-14 tablet by it y of thoprim 00:00: 04:59 mouth 2 [place] 400-80 mg 00 :00 (two) Medical per tablet times Branch daily for 5 days. docusate Yes [id number] 240mg Take 1 U nivers calcium 240 9-02 capsule by it y of mg capsule 00:00: mouth once [place] 00 daily as Medical needed for Branch Constipati on. Yes [id number] 1{tbl} Take 1 Univers vitamin 9-02 tablet by ity of w/FA tablet 00:00: mouth [place] 00 daily. Medical Branch ferrous Yes [id number] 325mg Take 1 Un alex sulfate 325 9-02 tablet by ity of mg (65 mg 00:00: mouth 2 [place] iron) 00 (two) Medical tablet times Branch daily. ibuprofen Yes [id number] 600mg Take 1 Univers 600 mg 9-02 tablet by ity of tablet 00:00: mouth [place] 00 every 6 Medical (six) Branch hours as needed (Pain). Take with food or milk. norethindro Yes [id number] .35mg Take 1 Univers ne 0.35 mg 9-02 tablet by ity of tablet 00:00: mouth [place] 00 daily. Medical Branch docusate Yes [id number] 240mg Take 1 U nivers calcium 240 9-02 capsule by it y of mg capsule 00:00: mouth once [place] 00 daily as Medical needed for Branch Constipati on. Yes [id number] 1{tbl} Take 1 Univers vitamin 9-02 tablet by ity of w/FA tablet 00:00: mouth [place] 00 daily. Medical Branch ferrous Yes [id number] 325mg Take 1 Un alex sulfate 325 9-02 tablet by ity of mg (65 mg 00:00: mouth 2 [place] iron) 00 (two) Medical tablet times Branch daily. ibuprofen Yes [id number] 600mg Take 1 Univers 600 mg 9-02 tablet by ity of tablet 00:00: mouth [place] 00 every 6 Medical (six) Branch hours as needed (Pain). Take with food or milk. norethindro Yes [id number] .35mg Take 1 Univers ne 0.35 mg 9-02 tablet by ity of tablet 00:00: mouth [place] 00 daily. Medical Branch docusate Yes [id number] 240mg Take 1 U nivers calcium 240 9-02 capsule by it y of mg capsule 00:00: mouth once [place] 00 daily as Medical needed for Branch Constipati on. Yes [id number] 1{tbl} Take 1 Univers vitamin 9-02 tablet by ity of w/FA tablet 00:00: mouth [place] 00 daily. Medical Branch ferrous Yes [id number] 325mg Take 1 Un alex sulfate 325 9-02 tablet by ity of mg (65 mg 00:00: mouth 2 [place] iron) 00 (two) Medical tablet times Branch daily. ibuprofen Yes [id number] 600mg Take 1 Univers 600 mg 9-02 tablet by ity of tablet 00:00: mouth [place] 00 every 6 Medical (six) Branch hours as needed (Pain). Take with food or milk. norethindro Yes [id number] .35mg Take 1 Univers ne 0.35 mg 9-02 tablet by ity of tablet 00:00: mouth [place] 00 daily. Medical Branch docusate Yes [id number] 240mg Take 1 U nivers calcium 240 9-02 capsule by it y of mg capsule 00:00: mouth once [place] 00 daily as Medical needed for Branch Constipati on. Yes [id number] 1{tbl} Take 1 Univers vitamin 9-02 tablet by ity of w/FA tablet 00:00: mouth [place] 00 daily. Medical Branch ferrous Yes [id number] 325mg Take 1 Un alex sulfate 325 9-02 tablet by ity of mg (65 mg 00:00: mouth 2 [place] iron) 00 (two) Medical tablet times Branch daily. ibuprofen Yes [id number] 600mg Take 1 Univers 600 mg 9-02 tablet by ity of tablet 00:00: mouth [place] 00 every 6 Medical (six) Branch hours as needed (Pain). Take with food or milk. norethindro Yes [id number] .35mg Take 1 Univers ne 0.35 mg 9-02 tablet by ity of tablet 00:00: mouth [place] 00 daily. Medical Branch docusate Yes [id number] 240mg Take 1 U nivers calcium 240 9-02 capsule by it y of mg capsule 00:00: mouth once [place] 00 daily as Medical needed for Branch Constipati on. Yes [id number] 1{tbl} Take 1 Univers vitamin 9-02 tablet by ity of w/FA tablet 00:00: mouth [place] 00 daily. Medical Branch ferrous Yes [id number] 325mg Take 1 Un alex sulfate 325 9-02 tablet by ity of mg (65 mg 00:00: mouth 2 [place] iron) 00 (two) Medical tablet times Branch daily. ibuprofen Yes [id number] 600mg Take 1 Univers 600 mg 9-02 tablet by ity of tablet 00:00: mouth [place] 00 every 6 Medical (six) Branch hours as needed (Pain). Take with food or milk. norethindro Yes [id number] .35mg Take 1 Univers ne 0.35 mg 9-02 tablet by ity of tablet 00:00: mouth [place] 00 daily. Medical Branch docusate Yes [id number] 240mg Take 1 U nivers calcium 240 9-02 capsule by it y of mg capsule 00:00: mouth once [place] 00 daily as Medical needed for Branch Constipati on. Yes [id number] 1{tbl} Take 1 Univers vitamin 9-02 tablet by ity of w/FA tablet 00:00: mouth [place] 00 daily. Medical Branch ferrous 2020- Yes [id number] 325mg Take 1 Un alex sulfate 325 9-02 tablet by ity of mg (65 mg 00:00: mouth 2 [place] iron) 00 (two) Medical tablet times Branch daily. ibuprofen Yes [id number] 600mg Take 1 Univers 600 mg 9-02 tablet by ity of tablet 00:00: mouth [place] 00 every 6 Medical (six) Branch hours as needed (Pain). Take with food or milk. norethindro Yes [id number] .35mg Take 1 Univers ne 0.35 mg 9-02 tablet by ity of tablet 00:00: mouth [place] 00 daily. Medical Branch cephALEXin 2020- No [id number] 500mg Take 1 Univers 500 mg 03-15 08 [id number] tablet by ity o f tablet 00:00: 04:59 mouth 4 [place] 00 :00 (four) Medical times Branch daily for 7 days. ferrous Yes [id number] 325mg Take 1 Un alex sulfate 325 6-11 tablet by ity of mg (65 mg 00:00: mouth 2 [place] iron) 00 (two) Medical tablet times Branch daily. ascorbic Yes [id number] 500mg Take 1 U nivers acid, 6-11 tablet by ity of vitamin C, 00:00: mouth 3 [place] 500 mg 00 (three) Medical tablet times Branch daily. ferrous Yes [id number] 325mg Take 1 Un alex sulfate 325 6-11 tablet by ity of mg (65 mg 00:00: mouth 2 [place] iron) 00 (two) Medical tablet times Branch daily. ascorbic 2020- Yes [id number] 500mg Take 1 U nivers acid, 6-11 tablet by ity of vitamin C, 00:00: mouth 3 [place] 500 mg 00 (three) Medical tablet times Branch daily. ferrous Yes [id number] 325mg Take 1 Un alex sulfate 325 6-11 tablet by ity of mg (65 mg 00:00: mouth 2 [place] iron) 00 (two) Medical tablet times Branch daily. ascorbic 2020- Yes [id number] 500mg Take 1 U nivers acid, 6-11 tablet by ity of vitamin C, 00:00: mouth 3 [place] 500 mg 00 (three) Medical tablet times Branch daily. ferrous Yes [id number] 325mg Take 1 Un alex sulfate 325 6-11 tablet by ity of mg (65 mg 00:00: mouth 2 [place] iron) 00 (two) Medical tablet times Branch daily. ascorbic Yes [id number] 500mg Take 1 U nivers acid, 6-11 tablet by ity of vitamin C, 00:00: mouth 3 [place] 500 mg 00 (three) Medical tablet times Branch daily. ferrous Yes [id number] 325mg Take 1 Un alex sulfate 325 6-11 tablet by ity of mg (65 mg 00:00: mouth 2 [place] iron) 00 (two) Medical tablet times Branch daily. ascorbic Yes [id number] 500mg Take 1 U nivers acid, 6-11 tablet by ity of vitamin C, 00:00: mouth 3 [place] 500 mg 00 (three) Medical tablet times Branch daily. ferrous Yes [id number] 325mg Take 1 Un alex sulfate 325 6-11 tablet by ity of mg (65 mg 00:00: mouth 2 [place] iron) 00 (two) Medical tablet times Branch daily. ascorbic Yes [id number] 500mg Take 1 U nivers acid, 6-11 tablet by ity of vitamin C, 00:00: mouth 3 [place] 500 mg 00 (three) Medical tablet times Branch daily. ferrous Yes [id number] 325mg Take 1 Un alex sulfate 325 6-11 tablet by ity of mg (65 mg 00:00: mouth 2 [place] iron) 00 (two) Medical tablet times Branch daily. ascorbic Yes [id number] 500mg Take 1 U nivers acid, 6-11 tablet by ity of vitamin C, 00:00: mouth 3 [place] 500 mg 00 (three) Medical tablet times Branch daily. ferrous Yes [id number] 325mg Take 1 Un alex sulfate 325 6-11 tablet by ity of mg (65 mg 00:00: mouth 2 [place] iron) 00 (two) Medical tablet times Branch daily. ascorbic Yes [id number] 500mg Take 1 U nivers acid, 6-11 tablet by ity of vitamin C, 00:00: mouth 3 [place] 500 mg 00 (three) Medical tablet times Branch daily. ferrous Yes [id number] 325mg Take 1 Un alex sulfate 325 6-11 tablet by ity of mg (65 mg 00:00: mouth 2 [place] iron) 00 (two) Medical tablet times Branch daily. ascorbic Yes [id number] 500mg Take 1 U nivers acid, 6-11 tablet by ity of vitamin C, 00:00: mouth 3 [place] 500 mg 00 (three) Medical tablet times Branch daily. ferrous Yes [id number] 325mg Take 1 Un alex sulfate 325 6-11 tablet by ity of mg (65 mg 00:00: mouth 2 [place] iron) 00 (two) Medical tablet times Branch daily. ascorbic Yes [id number] 500mg Take 1 U nivers acid, 6-11 tablet by ity of vitamin C, 00:00: mouth 3 [place] 500 mg 00 (three) Medical tablet times Branch daily. ferrous Yes [id number] 325mg Take 1 Un alex sulfate 325 6-11 tablet by ity of mg (65 mg 00:00: mouth 2 [place] iron) 00 (two) Medical tablet times Branch daily. ascorbic Yes [id number] 500mg Take 1 U nivers acid, 6-11 tablet by ity of vitamin C, 00:00: mouth 3 [place] 500 mg 00 (three) Medical tablet times Branch daily. ascorbic Yes [id number] 500mg Take 1 U nivers acid, 6-11 tablet by ity of vitamin C, 00:00: mouth 3 [place] 500 mg 00 (three) Medical tablet times Branch daily. ascorbic Yes [id number] 500mg Take 1 U nivers acid, 6-11 tablet by ity of vitamin C, 00:00: mouth 3 [place] 500 mg 00 (three) Medical tablet times Branch daily. ascorbic Yes [id number] 500mg Take 1 U nivers acid, 6-11 tablet by ity of vitamin C, 00:00: mouth 3 [place] 500 mg 00 (three) Medical tablet times Branch daily. ascorbic Yes [id number] 500mg Take 1 U nivers acid, 6-11 tablet by ity of vitamin C, 00:00: mouth 3 [place] 500 mg 00 (three) Medical tablet times Branch daily. ascorbic Yes [id number] 500mg Take 1 U nivers acid, 6-11 tablet by ity of vitamin C, 00:00: mouth 3 [place] 500 mg 00 (three) Medical tablet times Branch daily. ascorbic Yes [id number] 500mg Take 1 U nivers acid, 6-11 tablet by ity of vitamin C, 00:00: mouth 3 [place] 500 mg 00 (three) Medical tablet times Branch daily. ascorbic Yes [id number] 500mg Take 1 U nivers acid, 6-11 tablet by ity of vitamin C, 00:00: mouth 3 [place] 500 mg 00 (three) Medical tablet times Branch daily. ascorbic Yes [id number] 500mg Take 1 U nivers acid, 6-11 tablet by ity of vitamin C, 00:00: mouth 3 [place] 500 mg 00 (three) Medical tablet times Branch daily. ascorbic Yes [id number] 500mg Take 1 U nivers acid, 6-11 tablet by ity of vitamin C, 00:00: mouth 3 [place] 500 mg 00 (three) Medical tablet times Branch daily. ascorbic Yes [id number] 500mg Take 1 U nivers acid, 6-11 tablet by ity of vitamin C, 00:00: mouth 3 [place] 500 mg 00 (three) Medical tablet times Branch daily. ferrous 2020- No [id number] 325mg Take 1 U nivers sulfate 325 6-11 08-18 tablet by it y of mg (65 mg 00:00: 00:00 mouth 2 [place] iron) 00 :00 (two) Medical tablet times Branch daily. fluticasone Yes Univer s propionate 5-20 ity of 50 00:00: [place] mcg/actuati 00 Medical on nasal Branch spray fluticasone 0 Yes Univer s propionate 5-20 ity of 50 00:00: [place] mcg/actuati 00 Medical on nasal Branch spray fluticasone 0 Yes Univer s propionate 5-20 ity of 50 00:00: [place] mcg/actuati 00 Medical on nasal Branch spray fluticasone Yes Univer s propionate 5-20 ity of 50 00:00: [place] mcg/actuati 00 Medical on nasal Branch spray fluticasone 0 Yes Univer s propionate 5-20 ity of 50 00:00: [place] mcg/actuati 00 Medical on nasal Branch spray fluticasone 0 Yes Univer s propionate 5-20 ity of 50 00:00: [place] mcg/actuati Medical on nasal Branch spray fluticasone Yes Univer s propionate 5-20 ity of 50 00:00: [place] mcg/actuati 00 Medical on nasal Branch spray fluticasone Yes Univer s propionate 5-20 ity of 50 00:00: [place] mcg/actuati 00 Medical on nasal Branch spray fluticasone Yes Univer s propionate 5-20 ity of 50 00:00: [place] mcg/actuati 00 Medical on nasal Branch spray fluticasone Yes Univer s propionate 5-20 ity of 50 00:00: [place] mcg/actuati 00 Medical on nasal Branch spray fluticasone Yes Univer s propionate 5-20 ity of 50 00:00: [place] mcg/actuati 00 Medical on nasal Branch spray fluticasone 0 Yes Univer s propionate 5-20 ity of 50 00:00: [place] mcg/actuati 00 Medical on nasal Branch spray fluticasone 0 Yes Univer s propionate 5-20 ity of 50 00:00: [place] mcg/actuati 00 Medical on nasal Branch spray fluticasone 0 Yes Univer s propionate 5-20 ity of 50 00:00: [place] mcg/actuati 00 Medical on nasal Branch spray fluticasone 0 Yes Univer s propionate 5-20 ity of 50 00:00: [place] mcg/actuati 00 Medical on nasal Branch spray fluticasone 0 Yes Univer s propionate 5-20 ity of 50 00:00: [place] mcg/actuati 00 Medical on nasal Branch spray HYDROXYprog Yes [id number] 250mg Univers est(PF)(pre 4-07 ity of g presv) 19:40: [place] ([facility]ANS) 00 Medical 250 mg/mL Branch (1 mL) injection 250 mg HYDROXYprog 0 Yes [id number] 250mg 250 mg, Univers est(PF)(pre 11-12 Intramuscu it y of g presv) 19:40: lar [place] (HANS) 00 QWEEKLY, Medical 250 mg/mL First dose Bran ch (1 mL) on Wed injection 11/12/20 at 250 mg 1445, Until Discontinu ed, Routine HYDROXYprog 2021-0 Yes [id number] 250mg Univers est(PF)(pre - ity of g presv) 19:40: [place] ([facility]) 00 Medical 250 mg/mL Branch (1 mL) injection 250 mg HYDROXYprog 2021-0 Yes [id number] 250mg 250 mg, Univers est(PF)(pre 11-12 Intramuscu it y of g presv) 19:40: ana [place] (HANS) 00 QWEEKLY, Medical 250 mg/mL First dose Bran ch (1 mL) on Wed injection 11/12/20 at 250 mg 1445, Until Discontinu ed, Routine HYDROXYprog 2021-0 Yes [id number] 250mg Univers est(PF)(pre 11-12 ity of g presv) 19:40: [place] ([facility]) 00 Medical 250 mg/mL Branch (1 mL) injection 250 mg HYDROXYprog 2021-0 Yes [id number] 250mg Univers est(PF)(pre - ity of g presv) 19:40: [place] ([facility]) 00 Medical 250 mg/mL Branch (1 mL) injection 250 mg HYDROXYprog 2021-0 Yes [id number] 250mg Univers est(PF)(pre 11-12 ity of g presv) 19:40: [place] ([facility]) 00 Medical 250 mg/mL Branch (1 mL) injection 250 mg HYDROXYprog 2021-0 Yes [id number] 250mg 250 mg, Univers est(PF)(pre 11-12 Intramuscu it y of g presv) 19:40: ana [place] (HANS) 00 QWEEKLY, Medical 250 mg/mL First dose Bran ch (1 mL) on Wed injection 11/12/20 at 250 mg 1445, Until Discontinu ed, Routine HYDROXYprog 2021-0 Yes [id number] 250mg Univers est(PF)(pre - ity of g presv) 19:40: [place] ([facility]) 00 Medical 250 mg/mL Branch (1 mL) injection 250 mg HYDROXYprog 2021-0 Yes [id number] 250mg Univers est(PF)(pre 4- ity of g presv) 19:40: [place] (HANS) 00 Medical 250 mg/mL Branch (1 mL) injection 250 mg HYDROXYprog 2021-0 Yes [id number] 250mg 250 mg, Univers est(PF)(pre 4 Intramuscu it y of g presv) 19:40: lar, [place] (HANS) 00 QWEEKLY, Medical 250 mg/mL First dose Bran ch (1 mL) on Wed injection 11/12/20 at 250 mg 1445, Until Discontinu ed, Routine HYDROXYprog 2021-0 Yes [id number] 250mg Univers est(PF)(pre - ity of g presv) 19:40: [place] ([facility]) 00 Medical 250 mg/mL Branch (1 mL) injection 250 mg HYDROXYprog 2021-0 Yes [id number] 250mg Univers est(PF)(pre - ity of g presv) 19:40: [place] ([facility]) 00 Medical 250 mg/mL Branch (1 mL) injection 250 mg HYDROXYprog 2021-0 Yes [id number] 250mg 250 mg, Univers est(PF)(pre - Intramuscu it y of g presv) 19:40: ana [place] (HANS) 00 QWEEKLY, Medical 250 mg/mL First dose Bran ch (1 mL) on Wed injection 11/12/20 at 250 mg 1445, Until Discontinu ed, Routine HYDROXYprog 2021-0 Yes [id number] 250mg [facility](PF)(pre 4- ity of g presv) 19:40: [place] ([facility]) 00 Medical 250 mg/mL Branch (1 mL) injection 250 mg HYDROXYprog 2021-0 Yes [id number] 250mg [facility](PF)(pre 4- ity of g presv) 19:40: [place] ([facility]) 00 Medical 250 mg/mL Branch (1 mL) injection 250 mg HYDROXYprog 2021-0 Yes [id number] 250mg 250 mg, [facility](PF)(pre 4- [facility] y of g presv) 19:40: lar [place] ([facility]) 00 QWEEKLY, Medical 250 mg/mL First dose Bran ch (1 mL) on Wed injection 11/12/20 at 250 mg 1445, Until Discontinu ed, Routine HYDROXYprog 2021-0 Yes [id number] 250mg [facility](PF)(pre 4- ity of g presv) 19:40: [place] ([facility]) 00 Medical 250 mg/mL Branch (1 mL) injection 250 mg HYDROXYprog 2021-0 Yes [id number] 250mg [facility] est(PF)(pre 4- ity of g presv) 19:40: [place] ([facility]) 00 Medical 250 mg/mL Branch (1 mL) injection 250 mg HYDROXYprog 2021-0 Yes [id number] 250mg [facility] est(PF)(pre 4- ity of g presv) 19:40: [place] ([facility]) 00 Medical 250 mg/mL Branch (1 mL) injection 250 mg HYDROXYprog 2021-0 Yes [id number] 250mg 250 mg, [facility] est(PF)(pre - Intramuscu it y of g presv) 19:40: ana [place] ([facility]) 00 QWEEKLY, Medical 250 mg/mL First dose Bran ch (1 mL) on Wed injection 11/12/20 at 250 mg 1445, Until Discontinu ed, Routine HYDROXYprog 2021-0 Yes [id number] 250mg [facility](PF)(pre 4- ity of g presv) 19:40: [place] ([facility]) 00 Medical 250 mg/mL Branch (1 mL) injection 250 mg HYDROXYprog 2021-0 Yes [id number] 250mg [facility] est(PF)(pre 4- ity of g presv) 19:40: [place] ([facility]) 00 Medical 250 mg/mL Branch (1 mL) injection 250 mg HYDROXYprog 2021-0 Yes [id number] 250mg 250 mg, [facility] est(PF)(pre 4-07 Intramuscu it y of g presv) 19:40: lar, [place] ([facility]) 00 QWEEKLY, Medical 250 mg/mL First dose Bran ch (1 mL) on Wed injection 11/12/20 at 250 mg 1445, Until Discontinu ed, Routine HYDROXYprog 2021-0 Yes [id number] 250mg [facility](PF)(pre 4- ity of g presv) 19:40: [place] ([facility]) 00 Medical 250 mg/mL Branch (1 mL) injection 250 mg HYDROXYprog 2021-0 Yes [id number] 250mg [facility](PF)(pre 4- ity of g presv) 19:40: [place] ([facility]) 00 Medical 250 mg/mL Branch (1 mL) injection 250 mg HYDROXYprog 2021-0 Yes [id number] 250mg 250 mg, [facility](PF)(pre 11-12 Intramuscu it y of g presv) 19:40: lar, [place] ([facility]) 00 QWEEKLY, Medical 250 mg/mL First dose Bran ch (1 mL) on Wed injection 11/12/20 at 250 mg 1445, Until Discontinu ed, Routine HYDROXYprog 2021-0 Yes [id number] 250mg [facility] est(PF)(pre 11-12 ity of g presv) 19:40: [place] ([facility]) 00 Medical 250 mg/mL Branch (1 mL) injection 250 mg HYDROXYprog 2021-0 Yes [id number] 250mg [facility] est(PF)(pre - ity of g presv) 19:40: [place] ([facility]) 00 Medical 250 mg/mL Branch (1 mL) injection 250 mg HYDROXYprog 2021-0 Yes [id number] 250mg [facility](PF)(pre - ity of g presv) 19:40: [place] ([facility]) 00 Medical 250 mg/mL Branch (1 mL) injection 250 mg HYDROXYprog 2021-0 Yes [id number] 250mg [facility](PF)(pre 11-12 ity of g presv) 19:40: [place] ([facility]) 00 Medical 250 mg/mL Branch (1 mL) injection 250 mg HYDROXYprog 2021-0 Yes [id number] 250mg 250 mg, [facility] est(PF)(pre -07 Intramuscu it y of g presv) 19:40: lar, [place] ([facility]) 00 QWEEKLY, Medical 250 mg/mL First dose Bran ch (1 mL) on Wed injection 11/12/20 at 250 mg 1445, Until Discontinu ed, Routine HYDROXYprog 2021-0 Yes [id number] 250mg [facility] est(PF)(pre -07 ity of g presv) 19:40: [place] ([facility]) 00 Medical 250 mg/mL Branch (1 mL) injection 250 mg HYDROXYprog 2021-0 Yes [id number] 250mg 250 mg, [facility] est(PF)(pre - Intramuscu it y of g presv) 19:40: [place] [facility] ([facility] 00 QWEEKLY, Medical 250 mg/mL First dose Bran ch (1 mL) on Wed injection 11/12/20 at 250 mg 1445, Until Discontinu ed, Routine HYDROXYprog 2021-0 Yes [id number] 250mg [facility] est(PF)(pre 4- ity of g presv) 19:40: [place] ([facility]) 00 Medical 250 mg/mL Branch (1 mL) injection 250 mg HYDROXYprog 2021-0 Yes [id number] 250mg 250 mg, [facility] est(PF)(pre 11-12 Intramuscu it y of g presv) 19:40: ana [place] ([facility]) 00 QWEEKLY, Medical 250 mg/mL First dose Bran ch (1 mL) on Wed injection 11/12/20 at 250 mg 1445, Until Discontinu ed, Routine HYDROXYprog 2021-0 Yes [id number] 250mg [facility] est(PF)(pre - ity of g presv) 19:40: [place] ([facility]) 00 Medical 250 mg/mL Branch (1 mL) injection 250 mg HYDROXYprog 2021-0 Yes [id number] 250mg 250 mg, [facility] est(PF)(pre 11-12 Intramuscu it y of g presv) 19:40: ana [place] ([facility]) 00 QWEEKLY, Medical 250 mg/mL First dose Bran ch (1 mL) on Wed injection 11/12/20 at 250 mg 1445, Until Discontinu ed, Routine HYDROXYprog 2021-0 Yes [id number] 250mg [facility] est(PF)(pre 4- ity of g presv) 19:40: [place] ([facility]) 00 Medical 250 mg/mL Branch (1 mL) injection 250 mg HYDROXYprog 2021-0 Yes [id number] 250mg [facility] est(PF)(pre - ity of g presv) 19:40: [place] ([facility]) 00 Medical 250 mg/mL Branch (1 mL) injection 250 mg HYDROXYprog 2021-0 Yes [id number] 250mg [facility] est(PF)(pre 4-07 ity of g presv) 19:40: [place] ([facility]) 00 Medical 250 mg/mL Branch (1 mL) injection 250 mg HYDROXYprog 2021-0 Yes [id number] 250mg [facility] est(PF)(pre 4- ity of g presv) 19:40: [place] ([facility]) 00 Medical 250 mg/mL Branch (1 mL) injection 250 mg HYDROXYprog 2021-0 Yes [id number] 250mg [facility] est(PF)(pre 4- ity of g presv) 19:40: [place] ([facility]) 00 Medical 250 mg/mL Branch (1 mL) injection 250 mg HYDROXYprog 2021-0 Yes [id number] 250mg [facility] est(PF)(pre 4- ity of g presv) 19:40: [place] ([facility]) 00 Medical 250 mg/mL Branch (1 mL) injection 250 mg HYDROXYprog 2021-0 Yes [id number] 250mg 250 mg, [facility] est(PF)(pre 11-12 Intramuscu it y of g presv) 19:40: lar, [place] ([facility]) 00 QWEEKLY, Medical 250 mg/mL First dose Bran ch (1 mL) on Wed injection 11/12/20 at 250 mg 1445, Until Discontinu ed, Routine HYDROXYprog 2021-0 Yes [id number] 250mg [facility] est(PF)(pre 4- ity of g presv) 19:40: [place] ([facility]) 00 Medical 250 mg/mL Branch (1 mL) injection 250 mg HYDROXYprog 2021-0 Yes [id number] 250mg 250 mg, [facility] est(PF)(pre 11-12 Intramuscu it y of g presv) 19:40: lar, [place] ([facility]) 00 QWEEKLY, Medical 250 mg/mL First dose Bran ch (1 mL) on Wed injection 11/12/20 at 250 mg 1445, Until Discontinu ed, Routine HYDROXYprog 2021-0 Yes [id number] 250mg [facility] est(PF)(pre 4- ity of g presv) 19:40: [place] ([facility]) 00 Medical 250 mg/mL Branch (1 mL) injection 250 mg HYDROXYprog 2021-0 Yes [id number] 250mg 250 mg, [facility] est(PF)(pre 11-12 Intramuscu it y of g presv) 19:40: ana [place] ([facility]) 00 QWEEKLY, Medical 250 mg/mL First dose Bran ch (1 mL) on Wed injection 11/12/20 at 250 mg 1445, Until Discontinu ed, Routine HYDROXYprog 2021-0 Yes [id number] 250mg [facility] est(PF)(pre 11-12 ity of g presv) 19:40: [place] ([facility]) 00 Medical 250 mg/mL Branch (1 mL) injection 250 mg HYDROXYprog 2021-0 Yes [id number] 250mg 250 mg, [facility] est(PF)(pre 11-12 Intramuscu it y of g presv) 19:40: ana [place] ([facility]) 00 QWEEKLY, Medical 250 mg/mL First dose Bran ch (1 mL) on Wed injection 11/12/20 at 250 mg 1445, Until Discontinu ed, Routine HYDROXYprog 2021-0 Yes [id number] 250mg [facility] est(PF)(pre 11-12 ity of g presv) 19:40: [place] ([facility]) 00 Medical 250 mg/mL Branch (1 mL) injection 250 mg HYDROXYprog 2021-0 Yes [id number] 250mg 250 mg, [facility] est(PF)(pre 11-12 Intramuscu it y of g presv) 19:40: ana [place] ([facility]) 00 QWEEKLY, Medical 250 mg/mL First dose Bran ch (1 mL) on Wed injection 11/12/20 at 250 mg 1445, Until Discontinu ed, Routine HYDROXYprog 2021-0 Yes [id number] 250mg [facility] est(PF)(pre 11-12 ity of g presv) 19:40: [place] ([facility]) 00 Medical 250 mg/mL Branch (1 mL) injection 250 mg HYDROXYprog 2021-0 Yes [id number] 250mg 250 mg, [facility] est(PF)(pre 11-12 Intramuscu it y of g presv) 19:40: ana [place] ([facility]) 00 QWEEKLY, Medical 250 mg/mL First dose Bran ch (1 mL) on Wed injection 11/12/20 at 250 mg 1445, Until Discontinu ed, Routine HYDROXYprog 2021-0 Yes [id number] 250mg [facility] est(PF)(pre 4-07 ity of g presv) 19:40: [place] ([facility]) 00 Medical 250 mg/mL Branch (1 mL) injection 250 mg HYDROXYprog 2021-0 Yes [id number] 250mg 250 mg, [facility] est(PF)(pre -07 Intramuscu it y of g presv) 19:40: ana [place] ([facility]) 00 QWEEKLY, Medical 250 mg/mL First dose Bran ch (1 mL) on Wed injection 11/12/20 at 250 mg 1445, Until Discontinu ed, Routine HYDROXYprog 2021-0 Yes [id number] 250mg [facility] est(PF)(pre 4- ity of g presv) 19:40: [place] ([facility]) Medical 250 mg/mL Branch (1 mL) injection 250 mg HYDROXYprog 2021-0 Yes [id number] 250mg 250 mg, [facility] est(PF)(pre - Intramuscu it y of g presv) 19:40: ana [place] ([facility]) 00 QWEEKLY, Medical 250 mg/mL First dose Bran ch (1 mL) on Wed injection 11/12/20 at 250 mg 1445, Until Discontinu ed, Routine HYDROXYprog 2021-0 Yes [id number] 250mg [facility] est(PF)(pre - ity of g presv) 19:40: [place] ([facility]) Medical 250 mg/mL Branch (1 mL) injection 250 mg HYDROXYprog 2021-0 Yes [id number] 250mg 250 mg, [facility] est(PF)(pre - Intramuscu it y of g presv) 19:40: ana [place] ([facility]) 00 QWEEKLY, Medical 250 mg/mL First dose Bran ch (1 mL) on Wed injection 11/12/20 at 250 mg 1445, Until Discontinu ed, Routine HYDROXYprog 2021-0 Yes [id number] 250mg [facility] est(PF)(pre 4- ity of g presv) 19:40: [place] ([facility]) 00 Medical 250 mg/mL Branch (1 mL) injection 250 mg HYDROXYprog 2021-0 Yes [id number] 250mg [facility] est(PF)(pre 4- ity of g presv) 19:40: [place] ([facility]) 00 Medical 250 mg/mL Branch (1 mL) injection 250 mg HYDROXYprog 2021-0 Yes [id number] 250mg [facility] est(PF)(pre 4-07 ity of g presv) 19:40: [place] ([facility]) 00 Medical 250 mg/mL Branch (1 mL) injection 250 mg HYDROXYprog 2021-0 Yes [id number] 250mg [facility] est(PF)(pre 4-07 ity of g presv) 19:40: [place] ([facility]) 00 Medical 250 mg/mL Branch (1 mL) injection 250 mg HYDROXYprog 2021-0 Yes [id number] 250mg [facility] est(PF)(pre 4-07 ity of g presv) 19:40: [place] ([facility]) 00 Medical 250 mg/mL Branch (1 mL) injection 250 mg proMETHazin 2020-0 Yes [id number] 25mg Take 1 Univers e 25 mg 2-18 tablet by ity of tablet 00:00: mouth [place] 00 every 6 Medical (six) Branch hours as needed for Nausea and Vomiting (N/V). proMETHazin 2020-0 Yes [id number] 25mg Take 1 [facility] e 25 mg 2-18 tablet by ity of tablet 00:00: mouth [place] 00 every 6 Medical (six) Branch hours as needed for Nausea and Vomiting (N/V). proMETHazin 2020-0 Yes [id number] 25mg Take 1 [facility] e 25 mg 2-18 tablet by ity of tablet 00:00: mouth [place] 00 every 6 Medical (six) Branch hours as needed for Nausea and Vomiting (N/V). proMETHazin 2020-0 Yes [id number] 25mg Take 1 [facility] e 25 mg 2-18 tablet by ity of tablet 00:00: mouth [place] 00 every 6 Medical (six) Branch hours as needed for Nausea and Vomiting (N/V). proMETHazin 2021-0 Yes [id number] 25mg Take 1 [facility] e 25 mg 2-18 tablet by ity of tablet 00:00: mouth [place] 00 every 6 Medical (six) Branch hours as needed for Nausea and Vomiting (N/V). proMETHazin 2021-0 Yes [id number] 25mg Take 1 [facility] e 25 mg 2-18 tablet by ity of tablet 00:00: mouth [place] 00 every 6 Medical (six) Branch hours as needed for Nausea and Vomiting (N/V). proMETHazin 2021-0 Yes [id number] 25mg Take 1 [facility] e 25 mg 2-18 tablet by ity of tablet 00:00: mouth [place] 00 every 6 Medical (six) Branch hours as needed for Nausea and Vomiting (N/V). proMETHazin 2020-0 Yes [id number] 25mg Take 1 [facility] e 25 mg 2-18 tablet by ity of tablet 00:00: mouth [place] 00 every 6 Medical (six) Branch hours as needed for Nausea and Vomiting (N/V). proMETHazin 2020-0 Yes [id number] 25mg Take 1 [facility] e 25 mg 2-18 tablet by ity of tablet 00:00: mouth [place] 00 every 6 Medical (six) Branch hours as needed for Nausea and Vomiting (N/V). proMETHazin 2020-0 Yes [id number] 25mg Take 1 [facility] e 25 mg 2-18 tablet by ity of tablet 00:00: mouth [place] 00 every 6 Medical (six) Branch hours as needed for Nausea and Vomiting (N/V). proMETHazin 2020-0 Yes [id number] 25mg Take 1 [facility] e 25 mg 2-18 tablet by ity of tablet 00:00: mouth [place] 00 every 6 Medical (six) Branch hours as needed for Nausea and Vomiting (N/V). proMETHazin 2020-0 Yes [id number] 25mg Take 1 [facility] e 25 mg 2-18 tablet by ity of tablet 00:00: mouth [place] 00 every 6 Medical (six) Branch hours as needed for Nausea and Vomiting (N/V). proMETHazin 2020-0 Yes [id number] 25mg Take 1 [facility] e 25 mg 2-18 tablet by ity of tablet 00:00: mouth [place] 00 every 6 Medical (six) Branch hours as needed for Nausea and Vomiting (N/V). proMETHazin 2020-0 Yes [id number] 25mg Take 1 [facility] e 25 mg 2-18 tablet by ity of tablet 00:00: mouth [place] 00 every 6 Medical (six) Branch hours as needed for Nausea and Vomiting (N/V). proMETHazin 2020-0 Yes [id number] 25mg Take 1 [facility] e 25 mg 2-18 tablet by ity of tablet 00:00: mouth [place] 00 every 6 Medical (six) Branch hours as needed for Nausea and Vomiting (N/V). proMETHazin 2020-0 Yes [id number] 25mg Take 1 [facility] e 25 mg 2-18 tablet by ity of tablet 00:00: mouth [place] 00 every 6 Medical (six) Branch hours as needed for Nausea and Vomiting (N/V). proMETHazin 2020-0 Yes [id number] 25mg Take 1 [facility] e 25 mg 2-18 tablet by ity of tablet 00:00: mouth [place] 00 every 6 Medical (six) Branch hours as needed for Nausea and Vomiting (N/V). proMETHazin 2020-0 Yes [id number] 25mg Take 1 [facility] e 25 mg 2-18 tablet by ity of tablet 00:00: mouth [place] 00 every 6 Medical (six) Branch hours as needed for Nausea and Vomiting (N/V). proMETHazin 2020-0 Yes [id number] 25mg Take 1 [facility] e 25 mg 2-18 tablet by ity of tablet 00:00: mouth [place] 00 every 6 Medical (six) Branch hours as needed for Nausea and Vomiting (N/V). proMETHazin 0 Yes [id number] 25mg Take 1 [facility] e 25 mg 2-18 tablet by ity of tablet 00:00: mouth [place] 00 every 6 Medical (six) Branch hours as needed for Nausea and Vomiting (N/V). proMETHazin 2020-0 Yes [id number] 25mg Take 1 [facility] e 25 mg 2-18 tablet by ity of tablet 00:00: mouth [place] 00 every 6 Medical (six) Branch hours as needed for Nausea and Vomiting (N/V). proMETHazin 2020-0 Yes [id number] 25mg Take 1 [facility] e 25 mg 2-18 tablet by ity of tablet 00:00: mouth [place] 00 every 6 Medical (six) Branch hours as needed for Nausea and Vomiting (N/V). proMETHazin 2020-0 Yes [id number] 25mg Take 1 [facility] e 25 mg 2-18 tablet by ity of tablet 00:00: mouth [place] 00 every 6 Medical (six) Branch hours as needed for Nausea and Vomiting (N/V). proMETHazin 2020-0 Yes [id number] 25mg Take 1 [facility] e 25 mg 2-18 tablet by ity of tablet 00:00: mouth [place] 00 every 6 Medical (six) Branch hours as needed for Nausea and Vomiting (N/V). proMETHazin 2020-0 Yes [id number] 25mg Take 1 [facility] e 25 mg 2-18 tablet by ity of tablet 00:00: mouth [place] 00 every 6 Medical (six) Branch hours as needed for Nausea and Vomiting (N/V). proMETHazin 2020-0 Yes [id number] 25mg Take 1 [facility] e 25 mg 2-18 tablet by ity of tablet 00:00: mouth [place] 00 every 6 Medical (six) Branch hours as needed for Nausea and Vomiting (N/V). proMETHazin 2020-0 Yes [id number] 25mg Take 1 [facility] e 25 mg 2-18 tablet by ity of tablet 00:00: mouth [place] 00 every 6 Medical (six) Branch hours as needed for Nausea and Vomiting (N/V). proMETHazin 2020-0 Yes [id number] 25mg Take 1 [facility] e 25 mg 2-18 tablet by ity of tablet 00:00: mouth [place] 00 every 6 Medical (six) Branch hours as needed for Nausea and Vomiting (N/V). proMETHazin 2020-0 Yes [id number] 25mg Take 1 [facility] e 25 mg 2-18 tablet by ity of tablet 00:00: mouth [place] 00 every 6 Medical (six) Branch hours as needed for Nausea and Vomiting (N/V). proMETHazin 2020-0 Yes [id number] 25mg Take 1 [facility] e 25 mg 2-18 tablet by ity of tablet 00:00: mouth [place] 00 every 6 Medical (six) Branch hours as needed for Nausea and Vomiting (N/V). proMETHazin 2020-0 Yes [id number] 25mg Take 1 [facility] e 25 mg 2-18 tablet by ity of tablet 00:00: mouth [place] 00 every 6 Medical (six) Branch hours as needed for Nausea and Vomiting (N/V). proMETHazin 2020-0 Yes [id number] 25mg Take 1 [facility] e 25 mg 2-18 tablet by ity of tablet 00:00: mouth [place] 00 every 6 Medical (six) Branch hours as needed for Nausea and Vomiting (N/V). proMETHazin 2020-0 Yes [id number] 25mg Take 1 [facility] e 25 mg 2-18 tablet by ity of tablet 00:00: mouth [place] 00 every 6 Medical (six) Branch hours as needed for Nausea and Vomiting (N/V). proMETHazin 2020-0 Yes [id number] 25mg Take 1 [facility] e 25 mg 2-18 tablet by ity of tablet 00:00: mouth [place] 00 every 6 Medical (six) Branch hours as needed for Nausea and Vomiting (N/V). proMETHazin 2020-0 Yes [id number] 25mg Take 1 [facility] e 25 mg 2-18 tablet by ity of tablet 00:00: mouth [place] 00 every 6 Medical (six) Branch hours as needed for Nausea and Vomiting (N/V). proMETHazin 2020-0 Yes [id number] 25mg Take 1 [facility] e 25 mg 2-18 tablet by ity of tablet 00:00: mouth [place] 00 every 6 Medical (six) Branch hours as needed for Nausea and Vomiting (N/V). proMETHazin 2020-0 Yes [id number] 25mg Take 1 [facility] e 25 mg 2-18 tablet by ity of tablet 00:00: mouth [place] 00 every 6 Medical (six) Branch hours as needed for Nausea and Vomiting (N/V). proMETHazin 2020-0 Yes [id number] 25mg Take 1 [facility] e 25 mg 2-18 tablet by ity of tablet 00:00: mouth [place] 00 every 6 Medical (six) Branch hours as needed for Nausea and Vomiting (N/V). proMETHazin 2020-0 Yes [id number] 25mg Take 1 [facility] e 25 mg 2-18 tablet by ity of tablet 00:00: mouth [place] 00 every 6 Medical (six) Branch hours as needed for Nausea and Vomiting (N/V). proMETHazin 2020-0 Yes [id number] 25mg Take 1 [facility] e 25 mg 2-18 tablet by ity of tablet 00:00: mouth [place] 00 every 6 Medical (six) Branch hours as needed for Nausea and Vomiting (N/V). proMETHazin 2020-0 Yes [id number] 25mg Take 1 [facility] e 25 mg 2-18 tablet by ity of tablet 00:00: mouth [place] 00 every 6 Medical (six) Branch hours as needed for Nausea and Vomiting (N/V). proMETHazin 2020-0 Yes [id number] 25mg Take 1 [facility] e 25 mg 2-18 tablet by ity of tablet 00:00: mouth [place] 00 every 6 Medical (six) Branch hours as needed for Nausea and Vomiting (N/V). proMETHazin 2020-0 Yes [id number] 25mg Take 1 [facility] e 25 mg 2-18 tablet by ity of tablet 00:00: mouth [place] 00 every 6 Medical (six) Branch hours as needed for Nausea and Vomiting (N/V). proMETHazin 2020-0 Yes [id number] 25mg Take 1 [facility] e 25 mg 2-18 tablet by ity of tablet 00:00: mouth [place] 00 every 6 Medical (six) Branch hours as needed for Nausea and Vomiting (N/V). proMETHazin 2020-0 Yes [id number] 25mg Take 1 [facility] e 25 mg 2-18 tablet by ity of tablet 00:00: mouth [place] 00 every 6 Medical (six) Branch hours as needed for Nausea and Vomiting (N/V). proMETHazin 2020-0 Yes [id number] 25mg Take 1 [facility] e 25 mg 2-18 tablet by ity of tablet 00:00: mouth [place] 00 every 6 Medical (six) Branch hours as needed for Nausea and Vomiting (N/V). proMETHazin 2020-0 Yes [id number] 25mg Take 1 [facility] e 25 mg 2-18 tablet by ity of tablet 00:00: mouth [place] 00 every 6 Medical (six) Branch hours as needed for Nausea and Vomiting (N/V). proMETHazin 2020-0 Yes [id number] 25mg Take 1 [facility] e 25 mg 2-18 tablet by ity of tablet 00:00: mouth [place] 00 every 6 Medical (six) Branch hours as needed for Nausea and Vomiting (N/V). proMETHazin 2020-0 Yes [id number] 25mg Take 1 [facility] e 25 mg 2-18 tablet by ity of tablet 00:00: mouth [place] 00 every 6 Medical (six) Branch hours as needed for Nausea and Vomiting (N/V). proMETHazin 2020-0 Yes [id number] 25mg Take 1 [facility] e 25 mg 2-18 tablet by ity of tablet 00:00: mouth [place] 00 every 6 Medical (six) Branch hours as needed for Nausea and Vomiting (N/V). proMETHazin 1-0 Yes [id number] 25mg Take 1 [facility] e 25 mg 2-18 tablet by ity of tablet 00:00: mouth [place] 00 every 6 Medical (six) Branch hours as needed for Nausea and Vomiting (N/V). proMETHazin 2020-0 Yes [id number] 25mg Take 1 [facility] e 25 mg 2-18 tablet by ity of tablet 00:00: mouth [place] 00 every 6 Medical (six) Branch hours as needed for Nausea and Vomiting (N/V). proMETHazin 2020-0 Yes [id number] 25mg Take 1 [facility] e 25 mg 2-18 tablet by ity of tablet 00:00: mouth [place] 00 every 6 Medical (six) Branch hours as needed for Nausea and Vomiting (N/V). proMETHazin 2020-0 Yes [id number] 25mg Take 1 [facility] e 25 mg 2-18 tablet by ity of tablet 00:00: mouth [place] 00 every 6 Medical (six) Branch hours as needed for Nausea and Vomiting (N/V). proMETHazin 2020-0 Yes [id number] 25mg Take 1 [facility] e 25 mg 2-18 tablet by ity of tablet 00:00: mouth [place] 00 every 6 Medical (six) Branch hours as needed for Nausea and Vomiting (N/V). proMETHazin 0 Yes [id number] 25mg Take 1 [facility] e 25 mg 2-18 tablet by ity of tablet 00:00: mouth [place] 00 every 6 Medical (six) Branch hours as needed for Nausea and Vomiting (N/V). proMETHazin 0 Yes [id number] 25mg Take 1 [facility] e 25 mg 2-18 tablet by ity of tablet 00:00: mouth [place] 00 every 6 Medical (six) Branch hours as needed for Nausea and Vomiting (N/V). proMETHazin 0 Yes [id number] 25mg Take 1 [facility] e 25 mg 2-18 tablet by ity of tablet 00:00: mouth [place] 00 every 6 Medical (six) Branch hours as needed for Nausea and Vomiting (N/V). proMETHazin 0 Yes [id number] 25mg Take 1 [facility] e 25 mg 2-18 tablet by ity of tablet 00:00: mouth [place] 00 every 6 Medical (six) Branch hours as needed for Nausea and Vomiting (N/V). doxylamine- 0 Yes [id number] 2{tbl} Take 2 [facility] pyridoxine, 2-10 tablets by it y of vit B6, 00:00: mouth at [place] ([facility]) 00 bedtime. Medic al 10-10 mg Branch per tablet doxylamine- 2020-0 Yes [id number] 2{tbl} Take 2 [facility] pyridoxine, 2-10 tablets by it y of vit B6, 00:00: mouth at [facility] 00 bedtime. Medic al 10-10 mg Branch per tablet doxylamine- Yes [id number] 2{tbl} Take 2 [facility] pyridoxine, 2-10 tablets by it y of vit B6, 00:00: mouth at [facility] 00 bedtime. Medic al 10-10 mg Branch per tablet doxylamine- Yes [id number] 2{tbl} Take 2 [facility] pyridoxine, 2-10 tablets by it y of vit B6, 00:00: mouth at [facility] 00 bedtime. Medic al 10-10 mg Branch per tablet doxylamine- Yes [id number] 2{tbl} Take 2 [facility] pyridoxine, 2-10 tablets by it y of vit B6, 00:00: mouth at [facility] 00 bedtime. Medic al 10-10 mg Branch per tablet doxylamine- Yes [id number] 2{tbl} Take 2 [facility] pyridoxine, 2-10 tablets by it y of vit B6, 00:00: mouth at [facility] 00 bedtime. Medic al 10-10 mg Branch per tablet doxylamine- Yes [id number] 2{tbl} Take 2 [facility] pyridoxine, 2-10 tablets by it y of vit B6, 00:00: mouth at [place] [address] bedtime. Medic al 10-10 mg Branch per tablet doxylamine- Yes [id number] 2{tbl} Take 2 [facility] pyridoxine, 2-10 tablets by it y of vit B6, 00:00: mouth at [facility] 00 bedtime. Medic al 10-10 mg Branch per tablet doxylamine- 0 Yes [id number] 2{tbl} Take 2 [facility] pyridoxine, 2-10 tablets by it y of vit B6, 00:00: mouth at [facility] 00 bedtime. Medic al 10-10 mg Branch per tablet doxylamine- 0 Yes [id number] 2{tbl} Take 2 [facility] pyridoxine, 2-10 tablets by it y of vit B6, 00:00: mouth at [place] [address] bedtime. Medic al 10-10 mg Branch per tablet doxylamine- 2020-0 Yes [id number] 2{tbl} Take 2 [facility] pyridoxine, 2-10 tablets by it y of vit B6, 00:00: mouth at [place] [address] bedtime. Medic al 10-10 mg Branch per tablet doxylamine- 2020-0 Yes [id number] 2{tbl} Take 2 [facility] pyridoxine, 2-10 tablets by it y of vit B6, 00:00: mouth at [place] [address] bedtime. Medic al 10-10 mg Branch per tablet doxylamine- 2020-0 Yes [id number] 2{tbl} Take 2 [facility] pyridoxine, 2-10 tablets by it y of vit B6, 00:00: mouth at [place] [address] bedtime. Medic al 10-10 mg Branch per tablet doxylamine- Yes [id number] 2{tbl} Take 2 [facility] pyridoxine, 2-10 tablets by it y of vit B6, 00:00: mouth at [place] [address] bedtime. Medic al 10-10 mg Branch per tablet doxylamine- 0 Yes [id number] 2{tbl} Take 2 [facility] pyridoxine, 2-10 tablets by it y of vit B6, 00:00: mouth at [place] [address] bedtime. Medic al 10-10 mg Branch per tablet doxylamine- 0 Yes [id number] 2{tbl} Take 2 [facility] pyridoxine, 2-10 tablets by it y of vit B6, 00:00: mouth at [place] [address] bedtime. Medic al 10-10 mg Branch per tablet doxylamine- 2020-0 Yes [id number] 2{tbl} Take 2 [facility] pyridoxine, 2-10 tablets by it y of vit B6, 00:00: mouth at [facility] 00 bedtime. Medic al 10-10 mg Branch per tablet doxylamine- 2020-0 Yes [id number] 2{tbl} Take 2 [facility] pyridoxine, 2-10 tablets by it y of vit B6, 00:00: mouth at [place] ([facility]) 00 bedtime. Medic al 10-10 mg Branch per tablet doxylamine- 2020-0 Yes [id number] 2{tbl} Take 2 [facility] pyridoxine, 2-10 tablets by it y of vit B6, 00:00: mouth at [facility] 00 bedtime. Medic al 10-10 mg Branch per tablet doxylamine- 2020-0 Yes [id number] 2{tbl} Take 2 [facility] pyridoxine, 2-10 tablets by it y of vit B6, 00:00: mouth at [facility] 00 bedtime. Medic al 10-10 mg Branch per tablet doxylamine- 2020-0 Yes [id number] 2{tbl} Take 2 [facility] pyridoxine, 2-10 tablets by it y of vit B6, 00:00: mouth at [facility] 00 bedtime. Medic al 10-10 mg Branch per tablet doxylamine- 2020-0 Yes [id number] 2{tbl} Take 2 [facility] pyridoxine, 2-10 tablets by it y of vit B6, 00:00: mouth at [place] [address] bedtime. Medic al 10-10 mg Branch per tablet doxylamine- 2020-0 Yes [id number] 2{tbl} Take 2 [facility] pyridoxine, 2-10 tablets by it y of vit B6, 00:00: mouth at [facility] 00 bedtime. Medic al 10-10 mg Branch per tablet doxylamine- 2020-0 Yes [id number] 2{tbl} Take 2 [facility] pyridoxine, 2-10 tablets by it y of vit B6, 00:00: mouth at [facility] 00 bedtime. Medic al 10-10 mg Branch per tablet doxylamine- 2020-0 Yes [id number] 2{tbl} Take 2 [facility] pyridoxine, 2-10 tablets by it y of vit B6, 00:00: mouth at [facility] 00 bedtime. Medic al 10-10 mg Branch per tablet doxylamine- 2020-0 Yes [id number] 2{tbl} Take 2 [facility] pyridoxine, 2-10 tablets by it y of vit B6, 00:00: mouth at [facility] 00 bedtime. Medic al 10-10 mg Branch per tablet doxylamine- Yes [id number] 2{tbl} Take 2 [facility] pyridoxine, 2-10 tablets by it y of vit B6, 00:00: mouth at [facility] bedtime. Medic al 10-10 mg Branch per tablet doxylamine- Yes [id number] 2{tbl} Take 2 [facility] pyridoxine, 2-10 tablets by it y of vit B6, 00:00: mouth at [facility] 00 bedtime. Medic al 10-10 mg Branch per tablet doxylamine- Yes [id number] 2{tbl} Take 2 [facility] pyridoxine, 2-10 tablets by it y of vit B6, 00:00: mouth at [facility] 00 bedtime. Medic al 10-10 mg Branch per tablet doxylamine- Yes [id number] 2{tbl} Take 2 [facility] pyridoxine, 2-10 tablets by it y of vit B6, 00:00: mouth at [place] [address] bedtime. Medic al 10-10 mg Branch per tablet doxylamine- Yes [id number] 2{tbl} Take 2 [facility] pyridoxine, 2-10 tablets by it y of vit B6, 00:00: mouth at [facility] bedtime. Medic al 10-10 mg Branch per tablet doxylamine- Yes [id number] 2{tbl} Take 2 [facility] pyridoxine, 2-10 tablets by it y of vit B6, 00:00: mouth at [facility] bedtime. Medic al 10-10 mg Branch per tablet doxylamine- Yes [id number] 2{tbl} Take 2 [facility] pyridoxine, 2-10 tablets by it y of vit B6, 00:00: mouth at [facility] 00 bedtime. Medic al 10-10 mg Branch per tablet doxylamine- Yes [id number] 2{tbl} Take 2 [facility] pyridoxine, 2-10 tablets by it y of vit B6, 00:00: mouth at [facility] 00 bedtime. Medic al 10-10 mg Branch per tablet doxylamine- Yes [id number] 2{tbl} Take 2 [facility] pyridoxine, 2-10 tablets by it y of vit B6, 00:00: mouth at [facility] 00 bedtime. Medic al 10-10 mg Branch per tablet doxylamine- Yes [id number] 2{tbl} Take 2 [facility] pyridoxine, 2-10 tablets by it y of vit B6, 00:00: mouth at [facility] 00 bedtime. Medic al 10-10 mg Branch per tablet doxylamine- Yes [id number] 2{tbl} Take 2 [facility] pyridoxine, 2-10 tablets by it y of vit B6, 00:00: mouth at [facility] 00 bedtime. Medic al 10-10 mg Branch per tablet doxylamine- Yes [id number] 2{tbl} Take 2 [facility] pyridoxine, 2-10 tablets by it y of vit B6, 00:00: mouth at [facility] 00 bedtime. Medic al 10-10 mg Branch per tablet doxylamine- Yes [id number] 2{tbl} Take 2 [facility] pyridoxine, 2-10 tablets by it y of vit B6, 00:00: mouth at [facility] 00 bedtime. Medic al 10-10 mg Branch per tablet doxylamine- Yes [id number] 2{tbl} Take 2 [facility] pyridoxine, 2-10 tablets by it y of vit B6, 00:00: mouth at [facility] 00 bedtime. Medic al 10-10 mg Branch per tablet doxylamine- Yes [id number] 2{tbl} Take 2 [facility] pyridoxine, 2-10 tablets by it y of vit B6, 00:00: mouth at [facility]) 00 bedtime. Medic al 10-10 mg Branch per tablet doxylamine- Yes [id number] 2{tbl} Take 2 [facility] pyridoxine, 2-10 tablets by it y of vit B6, 00:00: mouth at [facility] 00 bedtime. Medic al 10-10 mg Branch per tablet doxylamine- Yes [id number] 2{tbl} Take 2 [facility] pyridoxine, 2-10 tablets by it y of vit B6, 00:00: mouth at [facility] 00 bedtime. Medic al 10-10 mg Branch per tablet doxylamine- Yes [id number] 2{tbl} Take 2 [facility] pyridoxine, 2-10 tablets by it y of vit B6, 00:00: mouth at [facility] 00 bedtime. Medic al 10-10 mg Branch per tablet doxylamine- 0 Yes [id number] 2{tbl} Take 2 [facility] pyridoxine, 2-10 tablets by it y of vit B6, 00:00: mouth at [facility] 00 bedtime. Medic al 10-10 mg Branch per tablet doxylamine- Yes [id number] 2{tbl} Take 2 [facility] pyridoxine, 2-10 tablets by it y of vit B6, 00:00: mouth at [facility] 00 bedtime. Medic al 10-10 mg Branch per tablet doxylamine- Yes [id number] 2{tbl} Take 2 [facility] pyridoxine, 2-10 tablets by it y of vit B6, 00:00: mouth at [facility] 00 bedtime. Medic al 10-10 mg Branch per tablet doxylamine- Yes [id number] 2{tbl} Take 2 [facility] pyridoxine, 2-10 tablets by it y of vit B6, 00:00: mouth at [place] [address] bedtime. Medic al 10-10 mg Branch per tablet doxylamine- Yes [id number] 2{tbl} Take 2 [facility] pyridoxine, 2-10 tablets by it y of vit B6, 00:00: mouth at [facility] 00 bedtime. Medic al 10-10 mg Branch per tablet doxylamine- 2020-0 Yes [id number] 2{tbl} Take 2 [facility] pyridoxine, 2-10 tablets by it y of vit B6, 00:00: mouth at [facility] 00 bedtime. Medic al 10-10 mg Branch per tablet doxylamine- 0 Yes [id number] 2{tbl} Take 2 [facility] pyridoxine, 2-10 tablets by it y of vit B6, 00:00: mouth at [place] [address] bedtime. Medic al 10-10 mg Branch per tablet doxylamine- 2020-0 Yes [id number] 2{tbl} Take 2 [facility] pyridoxine, 2-10 tablets by it y of vit B6, 00:00: mouth at [place] [address] bedtime. Medic al 10-10 mg Branch per tablet doxylamine- 0 Yes [id number] 2{tbl} Take 2 [facility] pyridoxine, 2-10 tablets by it y of vit B6, 00:00: mouth at [facility] 00 bedtime. Medic al 10-10 mg Branch per tablet doxylamine- 0 Yes [id number] 2{tbl} Take 2 [facility] pyridoxine, 2-10 tablets by it y of vit B6, 00:00: mouth at [place] [address] bedtime. Medic al 10-10 mg Branch per tablet doxylamine- Yes [id number] 2{tbl} Take 2 [facility] pyridoxine, 2-10 tablets by it y of vit B6, 00:00: mouth at [place] [address] bedtime. Medic al 10-10 mg Branch per tablet doxylamine- 0 Yes [id number] 2{tbl} Take 2 [facility] pyridoxine, 2-10 tablets by it y of vit B6, 00:00: mouth at [place] [address] bedtime. Medic al 10-10 mg Branch per tablet doxylamine- 0 Yes [id number] 2{tbl} Take 2 [facility] pyridoxine, 2-10 tablets by it y of vit B6, 00:00: mouth at [place] [address] bedtime. Medic al 10-10 mg Branch per tablet doxylamine- 2020-0 Yes [id number] 2{tbl} Take 2 [facility] pyridoxine, 2-10 tablets by it y of vit B6, 00:00: mouth at [facility] 00 bedtime. Medic al 10-10 mg Branch per tablet doxylamine- 2020-0 Yes [id number] 2{tbl} Take 2 [facility] pyridoxine, 2-10 tablets by it y of vit B6, 00:00: mouth at [place] ([facility]) 00 bedtime. Medic al 10-10 mg Branch per tablet doxylamine- Yes [id number] 2{tbl} Take 2 [facility] pyridoxine, 2-10 tablets by it y of vit B6, 00:00: mouth at [place] ([facility]) 00 bedtime. Medic al 10-10 mg Branch per tablet doxylamine- Yes [id number] 2{tbl} Take 2 [facility] pyridoxine, 2-10 tablets by it y of vit B6, 00:00: mouth at [place] ([facility]) 00 bedtime. Medic al 10-10 mg Branch per tablet Yes [id number] 1{tbl} Take 1 [facility] nivers multivitami 1-13 tablet by ity of n ( 00:00: mouth [place] [facility]) 00 daily. Medical tablet Branch Yes [id number] 1{tbl} Take 1 [facility] mult[facility]itami 1-13 tablet by ity of n ( 00:00: mouth [place] [facility]) 00 daily. Medical tablet Branch Yes [id number] 1{tbl} Take 1 [facility]ami 1-13 tablet by ity of n ( 00:00: mouth [place] [facility]) 00 daily. Medical tablet Branch Yes [id number] 1{tbl} Take 1 [facility] 1-13 tablet by ity of n ( 00:00: mouth [place] [facility]) 00 daily. Medical tablet Branch Yes [id number] 1{tbl} Take 1 [facility] 1-13 tablet by ity of n ( 00:00: mouth [place] [facility]) 00 daily. Medical tablet Branch Yes [id number] 1{tbl} Take 1 [facility] 1-13 tablet by ity of n ( 00:00: mouth [place] [facility]) 00 daily. Medical tablet Branch Yes [id number] 1{tbl} Take 1 [facility] 1-13 tablet by ity of n ( 00:00: mouth [place] [facility]) 00 daily. Medical tablet Branch Yes [id number] 1{tbl} Take 1 [facility] 1-13 tablet by ity of n ( 00:00: mouth [place] [facility]) 00 daily. Medical tablet Branch Yes [id number] 1{tbl} Take 1 [facility] 1-13 tablet by ity of n ( 00:00: mouth [place] [facility]) 00 daily. Medical tablet Branch Yes [id number] 1{tbl} Take 1 [facility] 1-13 tablet by ity of n ( 00:00: mouth [place] [facility]) 00 daily. Medical tablet Branch Yes [id number] 1{tbl} Take 1 [facility]ami 1-13 tablet by ity of n ( 00:00: mouth [place] [facility]) 00 daily. Medical tablet Branch Yes [id number] 1{tbl} Take 1 [facility] 1-13 tablet by ity of n ( 00:00: mouth [place] [facility]) 00 daily. Medical tablet Branch Yes [id number] 1{tbl} Take 1 [facility]ami 1-13 tablet by ity of n ( 00:00: mouth [place] [facility]) 00 daily. Medical tablet Branch Yes [id number] 1{tbl} Take 1 [facility] 1-13 tablet by ity of n ( 00:00: mouth [place] [facility]) 00 daily. Medical tablet Branch Yes [id number] 1{tbl} Take 1 [facility] 1-13 tablet by ity of n ( 00:00: mouth [place] [facility]) 00 daily. Medical tablet Branch Yes [id number] 1{tbl} Take 1 [facility]ami 1-13 tablet by ity of n ( 00:00: mouth [place] [facility]) 00 daily. Medical tablet Branch Yes [id number] 1{tbl} Take 1 [facility] 1-13 tablet by ity of n ( 00:00: mouth [place] [facility]) 00 daily. Medical tablet Branch Yes [id number] 1{tbl} Take 1 [facility] 1-13 tablet by ity of n ( 00:00: mouth [place] [facility]) 00 daily. Medical tablet Branch Yes [id number] 1{tbl} Take 1 [facility] 1-13 tablet by ity of n ( 00:00: mouth [place] [facility]) 00 daily. Medical tablet Branch Yes [id number] 1{tbl} Take 1 [facility] 1-13 tablet by ity of n ( 00:00: mouth [place] [facility]) 00 daily. Medical tablet Branch Yes [id number] 1{tbl} Take 1 [facility]ami 1-13 tablet by ity of n ( 00:00: mouth [place] [facility]) 00 daily. Medical tablet Branch Yes [id number] 1{tbl} Take 1 [facility]ami 1-13 tablet by ity of n ( 00:00: mouth [place] [facility]) 00 daily. Medical tablet Branch Yes [id number] 1{tbl} Take 1 [facility] mult[facility]ami 1-13 tablet by ity of n ( 00:00: mouth [place] [facility]) 00 daily. Medical tablet Branch Yes [id number] 1{tbl} Take 1 [facility] mult[facility]ami 1-13 tablet by ity of n ( 00:00: mouth [place] [facility]) 00 daily. Medical tablet Branch Yes [id number] 1{tbl} Take 1 [facility] 1-13 tablet by ity of n ( 00:00: mouth [place] [facility]) 00 daily. Medical tablet Branch Yes [id number] 1{tbl} Take 1 [facility] 1-13 tablet by ity of n ( 00:00: mouth [place] [facility]) 00 daily. Medical tablet Branch Yes [id number] 1{tbl} Take 1 [facility] 1-13 tablet by ity of n ( 00:00: mouth [place] [facility]) 00 daily. Medical tablet Branch Yes [id number] 1{tbl} Take 1 [facility] 1-13 tablet by ity of n ( 00:00: mouth [place] [facility]) 00 daily. Medical tablet Branch Yes [id number] 1{tbl} Take 1 [facility] 1-13 tablet by ity of n ( 00:00: mouth [place] [facility]) 00 daily. Medical tablet Branch Yes [id number] 1{tbl} Take 1 [facility] 1-13 tablet by ity of n ( 00:00: mouth [place] [facility]) 00 daily. Medical tablet Branch Yes [id number] 1{tbl} Take 1 [facility] 1-13 tablet by [facility]y of n ( 00:00: mouth [place] [facility]) 00 daily. Medical tablet Branch Yes [id number] 1{tbl} Take 1 [facility] mult[facility]ami 1-13 tablet by ity of n ( 00:00: mouth [place] [facility]) 00 daily. Medical tablet Branch Yes [id number] 1{tbl} Take 1 [facility]ami 1-13 tablet by ity of n ( 00:00: mouth [place] [facility]) 00 daily. Medical tablet Branch Yes [id number] 1{tbl} Take 1 [facility]ami 1-13 tablet by [facility]y of n ( 00:00: mouth [place] [facility]) 00 daily. Medical tablet Branch Yes [id number] 1{tbl} Take 1 [facility] mult[facility]ami 1-13 tablet by ity of n ( 00:00: mouth [place] [facility]) 00 daily. Medical tablet Branch Yes [id number] 1{tbl} Take 1 [facility] 1-13 tablet by ity of n ( 00:00: mouth [place] [facility]) 00 daily. Medical tablet Branch Yes [id number] 1{tbl} Take 1 [facility] 1-13 tablet by [facility]y of n ( 00:00: mouth [place] [facility]) 00 daily. Medical tablet Branch Yes [id number] 1{tbl} Take 1 [facility] 1-13 tablet by ity of n ( 00:00: mouth [place] [facility]) 00 daily. Medical tablet Branch Yes [id number] 1{tbl} Take 1 [facility] 1-13 tablet by ity of n ( 00:00: mouth [place] [facility]) 00 daily. Medical tablet Branch Yes [id number] 1{tbl} Take 1 [facility] 1-13 tablet by [facility]y of n ( 00:00: mouth [place] [facility]) 00 daily. Medical tablet Branch Yes [id number] 1{tbl} Take 1 [facility] 1-13 tablet by [facility]y of n ( 00:00: mouth [place] [facility]) 00 daily. Medical tablet Branch Yes [id number] 1{tbl} Take 1 [facility] mult[facility]ami 1-13 tablet by ity of n ( 00:00: mouth [place] [facility]) 00 daily. Medical tablet Branch Yes [id number] 1{tbl} Take 1 [facility] mult[facility] 1-13 tablet by [facility]y of n ( 00:00: mouth [place] [facility]) 00 daily. Medical tablet Branch Yes [id number] 1{tbl} Take 1 [facility] 1-13 tablet by ity of n ( 00:00: mouth [place] [facility]) 00 daily. Medical tablet Branch Yes [id number] 1{tbl} Take 1 [facility] 1-13 tablet by ity of n ( 00:00: mouth [place] [facility]) 00 daily. Medical tablet Branch Yes [id number] 1{tbl} Take 1 [facility] 1-13 tablet by [facility]y of n ( 00:00: mouth [place] [facility]) 00 daily. Medical tablet Branch Yes [id number] 1{tbl} Take 1 [facility] 1-13 tablet by [facility]y of n ( 00:00: mouth [place] [facility]) 00 daily. Medical tablet Branch Yes [id number] 1{tbl} Take 1 [facility] 1-13 tablet by [facility]y of n ( 00:00: mouth [place] [facility]) 00 daily. Medical tablet Branch Yes [id number] 1{tbl} Take 1 [facility] mult[facility]ami 1-13 tablet by [facility]y of n ( 00:00: mouth [place] [facility]) 00 daily. Medical tablet Branch Yes [id number] 1{tbl} Take 1 [facility] 1-13 tablet by [facility]y of n ( 00:00: mouth [place] [facility]) 00 daily. Medical tablet Branch Yes [id number] 1{tbl} Take 1 [facility] n[facility] mult[facility]ami 1-13 tablet by [facility]y of n ( 00:00: mouth [place] [facility]) 00 daily. Medical tablet Branch Yes [id number] 1{tbl} Take 1 [facility] mult[facility]ami 1-13 tablet by [facility]y of n ( 00:00: mouth [place] [facility]) 00 daily. Medical tablet Branch Yes [id number] 1{tbl} Take 1 [facility] 1-13 tablet by [facility]y of n ( 00:00: mouth [place] [facility]) 00 daily. Medical tablet Branch Yes [id number] 1{tbl} Take 1 [facility] 1-13 tablet by [facility]y of n ( 00:00: mouth [place] [facility]) 00 daily. Medical tablet Branch Yes [id number] 1{tbl} Take 1 [facility] mult[facility]ami 1-13 tablet by ity of n ( 00:00: mouth [place] [facility]) 00 daily. Medical tablet Branch Yes [id number] 1{tbl} Take 1 [facility] 1-13 tablet by ity of n ( 00:00: mouth [place] [facility]) 00 daily. Medical tablet Branch Yes [id number] 1{tbl} Take 1 [facility] 1-13 tablet by [facility]y of n ( 00:00: mouth [place] [facility]) 00 daily. Medical tablet Branch Yes [id number] 1{tbl} Take 1 [facility] 1-13 tablet by ity of n ( 00:00: mouth [place] [facility]) 00 daily. Medical tablet Branch Yes [id number] 1{tbl} Take 1 [facility] 1-13 tablet by [facility]y of n ( 00:00: mouth [place] [facility]) 00 daily. Medical tablet Branch Yes [id number] 1{tbl} Take 1 [facility] 1-13 tablet by [facility] of n ( 00:00: mouth [place] [facility]) 00 daily. Medical tablet Branch Yes [id number] 1{tbl} Take 1 [facility] 1-13 tablet by [facility] of n ( 00:00: mouth [place] [facility]) 00 daily. Medical tablet Branch Yes [id number] 1{tbl} Take 1 [facility] 1-13 tablet by [facility] of n ( 00:00: mouth [place] [facility]) 00 daily. Medical tablet Branch Yes [id number] 1{tbl} Take 1 [facility] n[facility] mult[facility]itami 1-13 tablet by [facility]y of n ( 00:00: mouth [place] [facility]) 00 daily. Medical tablet Branch HYDROXYprog 2020- No [id number] 250mg 1 mL by [facility] est,PF,,pre 08-20 [facility] pres[facility], 00:00: 04:59 lar route Amn as 250 mg/mL 00 :00 weekly for Medi carlos (1 mL) 22 doses. Branch injection HYDROXYprog 2020- No [id number] 250mg 1 mL by [facility] est,PF,,pre 08-20 [facility] pres[facility], 00:00: 04:59 lar route Man as 250 mg/mL 00 :00 weekly for Medi carlos (1 mL) 22 doses. Branch injection HYDROXYprog 2020- No [id number] 250mg 1 mL by [facility] est,PF,,pre 08-20 [facility] pres[facility], 00:00: 04:59 lar route Man as 250 mg/mL 00 :00 weekly for [facility]i car[facility] (1 mL) 22 doses. Branch injection HYDROXYprog 2020- No [id number] 250mg 1 mL by [facility] est,PF,,pre 08-20 [facility] pres[facility], 00:00: 04:59 lar route Man as 250 mg/mL 00 :00 weekly for Medi carlos (1 mL) 22 doses. Branch injection HYDROXYprog 2020- No [id number] 250mg 1 mL by [facility] est,PF,,pre 08-20 [facility], 00:00: 04:59 lar route Man as 250 mg/mL 00 :00 weekly for Medi carlos (1 mL) 22 doses. Branch injection HYDROXYprog 2020- No [id number] 250mg 1 mL by [facility] est,PF,,pre 08-20 [facility] pres[facility], 00:00: 04:59 lar route Man as 250 mg/mL 00 :00 weekly for Medi carlos (1 mL) 22 doses. Branch injection HYDROXYprog 2020- No [id number] 250mg 1 mL by [facility] est,PF,,pre 08-20 [facility] pres[facility], 00:00: 04:59 lar route Man as 250 mg/mL 00 :00 weekly for Medi carlos (1 mL) 22 doses. Branch injection HYDROXYprog 2020- No [id number] 250mg 1 mL by [facility] est,PF,,pre 08-20 [facility], 00:00: 04:59 lar route Man as 250 mg/mL 00 :00 weekly for Medi carlos (1 mL) 22 doses. Branch injection HYDROXYprog 2020- No [id number] 250mg 1 mL by [facility] est,PF,,pre 08-20 [facility] pres[facility], 00:00: 04:59 lar route Man as 250 mg/mL 00 :00 weekly for Medi carlos (1 mL) 22 doses. Branch injection HYDROXYprog 2020- No [id number] 250mg 1 mL by [facility] est,PF,,pre 08-20 [facility], 00:00: 04:59 lar route Man as 250 mg/mL 00 :00 weekly for Medi carlos (1 mL) 22 doses. Branch injection HYDROXYprog 2020- No [id number] 250mg 1 mL by [facility] est,PF,,pre 08-20 [facility], 00:00: 04:59 lar route Man as 250 mg/mL 00 :00 weekly for Medi carlos (1 mL) 22 doses. Branch injection HYDROXYprog 2020- No [id number] 250mg 1 mL by [facility] est,PF,,pre 08-20 [facility], 00:00: 04:59 lar route Man as 250 mg/mL 00 :00 weekly for [facility]i carlos (1 mL) 22 doses. Branch injection HYDROXYprog 2020- No [id number] 250mg 1 mL by [facility] est,PF,,pre 08-20 [facility], 00:00: 04:59 lar route Man as 250 mg/mL 00 :00 weekly for [facility]i [facility] (1 mL) 22 doses. Branch injection HYDROXYprog 2020- No [id number] 250mg 1 mL by [facility] est,PF,,pre 08-20 [facility], 00:00: 04:59 lar route Man as 250 mg/mL 00 :00 weekly for Medi carlos (1 mL) 22 doses. Branch injection HYDROXYprog 2020- No [id number] 250mg 1 mL by [facility] est,PF,,pre 08-20 [facility] pres[facility], 00:00: 04:59 lar route Man as 250 mg/mL 00 :00 weekly for Medi carlos (1 mL) 22 doses. Branch injection HYDROXYprog 2020- No [id number] 250mg 1 mL by [facility] est,PF,,pre 08-20 [facility] pres[facility], 00:00: 04:59 lar route Man as 250 mg/mL 00 :00 weekly for Medi carlos (1 mL) 22 doses. Branch injection HYDROXYprog 2020- No [id number] 250mg 1 mL by [facility] est,PF,,pre 08-20 [facility] pres[facility], 00:00: 04:59 lar route Man as 250 mg/mL 00 :00 weekly for Medi carlos (1 mL) 22 doses. Branch injection HYDROXYprog 2020- No [id number] 250mg 1 mL by [facility] est,PF,,pre 08-20 [facility] pres[facility], 00:00: 04:59 lar route Man as 250 mg/mL 00 :00 weekly for Medi carlos (1 mL) 22 doses. Branch injection HYDROXYprog 2020- No [id number] 250mg 1 mL by [facility] est,PF,,pre 08-20 [facility], 00:00: 04:59 lar route Man as 250 mg/mL 00 :00 weekly for Medi carlos (1 mL) 22 doses. Branch injection HYDROXYprog 2020- No [id number] 250mg 1 mL by [facility] est,PF,,pre 08-20 [facility], 00:00: 04:59 lar route Man as 250 mg/mL 00 :00 weekly for Medi carlos (1 mL) 22 doses. Branch injection HYDROXYprog 2020- No [id number] 250mg 1 mL by [facility] est,PF,,pre 08-20 [facility], 00:00: 04:59 lar route Man as 250 mg/mL 00 :00 weekly for Medi carlos (1 mL) 22 doses. Branch injection HYDROXYprog 2020- No [id number] 250mg 1 mL by [facility] est,PF,,pre 08-20 [facility] pres[facility], 00:00: 04:59 lar route Man as 250 mg/mL 00 :00 weekly for Medi carlos (1 mL) 22 doses. Branch injection HYDROXYprog 2020- No [id number] 250mg 1 mL by [facility] est,PF,,pre 08-20 [facility] pres[facility], 00:00: 04:59 lar route Man as 250 mg/mL 00 :00 weekly for Medi carlos (1 mL) 22 doses. Branch injection HYDROXYprog 2020- No [id number] 250mg 1 mL by [facility] est,PF,,pre 08-20 [facility] pres[facility], 00:00: 04:59 lar route Man as 250 mg/mL 00 :00 weekly for Medi carlos (1 mL) 22 doses. Branch injection HYDROXYprog 2020- No [id number] 250mg 1 mL by [facility] est,PF,,pre 08-20 [facility] pres[facility], 00:00: 04:59 lar route Man as 250 mg/mL 00 :00 weekly for Medi carlos (1 mL) 22 doses. Branch injection HYDROXYprog 2020- No [id number] 250mg 1 mL by [facility] est,PF,,pre 08-20 [facility] pres[facility], 00:00: 04:59 lar route Man as 250 mg/mL 00 :00 weekly for Medi carlos (1 mL) 22 doses. Branch injection HYDROXYprog 2020- No [id number] 250mg 1 mL by [facility] est,PF,,pre 08-20 [facility] pres[facility], 00:00: 04:59 lar route Man as 250 mg/mL 00 :00 weekly for Medi carlos (1 mL) 22 doses. Branch injection HYDROXYprog 2020- No [id number] 250mg 1 mL by [facility] est,PF,,pre 08-20 [facility] pres[facility], 00:00: 04:59 lar route Man as 250 mg/mL 00 :00 weekly for Medi carlos (1 mL) 22 doses. Branch injection HYDROXYprog 2020- No [id number] 250mg 1 mL by [facility] est,PF,,pre 08-20 [facility] pres[facility], 00:00: 04:59 lar route Man as 250 mg/mL 00 :00 weekly for Medi carlos (1 mL) 22 doses. Branch injection HYDROXYprog 2020- No [id number] 250mg 1 mL by [facility] est,PF,,pre 08-20 [facility], 00:00: 04:59 lar route Man as 250 mg/mL 00 :00 weekly for Medi carlos (1 mL) 22 doses. Branch injection HYDROXYprog 2020- No [id number] 250mg 1 mL by [facility] est,PF,,pre 08-20 [facility], 00:00: 04:59 lar route Man as 250 mg/mL 00 :00 weekly for Medi carlos (1 mL) 22 doses. Branch injection HYDROXYprog 2020- No [id number] 250mg 1 mL by [facility] est,PF,,pre 08-20 [facility] pres[facility], 00:00: 04:59 lar route Man as 250 mg/mL 00 :00 weekly for Medi carlos (1 mL) 22 doses. Branch injection HYDROXYprog 2020- No [id number] 250mg 1 mL by [facility] est,PF,,pre 08-20 [facility] pres[facility], 00:00: 04:59 lar route Man as 250 mg/mL 00 :00 weekly for Medi carlos (1 mL) 22 doses. Branch injection HYDROXYprog 2020- No [id number] 250mg 1 mL by [facility] est,PF,,pre 08-20 [facility] pres[facility], 00:00: 04:59 lar route Man as 250 mg/mL 00 :00 weekly for Medi carlos (1 mL) 22 doses. Branch injection HYDROXYprog 2020- No [id number] 250mg 1 mL by [facility] est,PF,,pre 08-20 [facility] pres[facility], 00:00: 04:59 lar route Man as 250 mg/mL 00 :00 weekly for Medi carlos (1 mL) 22 doses. Branch injection HYDROXYprog 2020-2020- No [id number] 250mg 1 mL by [facility] est,PF,,pre 08-20 Intramuscu i ty of g presv, 00:00: 04:59 lar route [place] 250 mg/mL 00 :00 weekly for Medi carlos (1 mL) 22 doses. Branch injection HYDROXYprog 2020- No [id number] 250mg 1 mL by [facility] est,PF,,pre 08-20 Intramuscu i ty of g presv, 00:00: 04:59 lar route [place] 250 mg/mL 00 :00 weekly for Medi carlos (1 mL) 22 doses. Branch injection HYDROXYprog 2020- No [id number] 250mg 1 mL by [facility] est,PF,,pre 08-20 Intramuscu i ty of g presv, 00:00: 04:59 lar route [place] 250 mg/mL 00 :00 weekly for Medi carlos (1 mL) 22 doses. Branch injection HYDROXYprog 2020- No [id number] 250mg 1 mL by [facility] est,PF,,pre 08-20 Intramuscu i ty of g presv, 00:00: 04:59 lar route [place] 250 mg/mL 00 :00 weekly for Medi carlos (1 mL) 22 doses. Branch injection HYDROXYprog 2020- No [id number] 250mg 1 mL by [facility] est,PF,,pre 08-20 Intramuscu i ty of g presv, 00:00: 04:59 lar route [place] 250 mg/mL 00 :00 weekly for Medi carlos (1 mL) 22 doses. Branch injection HYDROXYprog 2020- No [id number] 250mg 1 mL by [facility] est,PF,,pre 08-20 Intramuscu i ty of g presv, 00:00: 04:59 lar route [place] 250 mg/mL 00 :00 weekly for Medi carlos (1 mL) 22 doses. Branch injection HYDROXYprog 2020-2020- No [id number] 250mg 1 mL by [facility] est,PF,,pre 08-20 Intramuscu i ty of g presv, 00:00: 04:59 lar route [place] 250 mg/mL 00 :00 weekly for Medi carlos (1 mL) 22 doses. Branch injection HYDROXYprog 2020-2020- No [id number] 250mg 1 mL by [facility] est,PF,,pre 08-20 Intramuscu i ty of g presv, 00:00: 04:59 lar route [place] 250 mg/mL 00 :00 weekly for Medi carlos (1 mL) 22 doses. Branch injection HYDROXYprog 2020- No [id number] 250mg 1 mL by [facility] est,PF,,pre 08-20 Intramuscu i ty of g presv, 00:00: 04:59 lar route [place] 250 mg/mL 00 :00 weekly for Medi carlos (1 mL) 22 doses. Branch injection HYDROXYprog 2020- No [id number] 250mg 1 mL by [facility] est,PF,,pre 08-20 Intramuscu i ty of g presv, 00:00: 04:59 lar route [place] 250 mg/mL 00 :00 weekly for Medi carlos (1 mL) 22 doses. Branch injection HYDROXYprog 2020-0 2020- No [id number] 250mg 1 mL by [facility] est,PF,,pre 08-20 Intramuscu i ty of g presv, 00:00: 04:59 lar route [place] 250 mg/mL 00 :00 weekly for Medi carlos (1 mL) 22 doses. Branch injection HYDROXYprog 2020- No [id number] 250mg 1 mL by [facility] est,PF,,pre 08-20 Intramuscu i ty of g presv, 00:00: 04:59 lar route [place] 250 mg/mL 00 :00 weekly for Medi carlos (1 mL) 22 doses. Branch injection HYDROXYprog No [id number] 250mg 1 mL by [facility] est,PF,,pre 08-20 06-11 Intramuscu i ty of g presv, 00:00: 04:59 lar route [place] 250 mg/mL 00 :00 weekly for Medi carlos (1 mL) 22 doses. Branch injection cefTRIAXone 2019- No 250mg 250 mg, U nivers (ROCEPHIN) 03-22 Intramuscu it y of injection 07:15: 06:17 lar, ONCE, [place] 250 mg 00 :00 1 dose, Medical Sat Branch 03/22/20 at 0215, ARA
Re ason for Anti-Infec tive: Empiric Therapy for Suspected Infection< br>Empiric Therapy Site: Pelvic
Duration of therapy: 72 hours azithromyci No 1000mg 1,000 mg, Univers n 03-22 Oral, ity of (ZITHROMAX) 07:15: 06:16 ONCE, 1 [place] tablet 00 :00 dose, Sat Medical 1,000 mg 03/22/20 at [facility] h 0215, ARA
Re ason for Anti-Infec tive: Empiric Therapy for Suspected Infection< br>Empiric Therapy Site: Pelvic
Duration of therapy: 72 hours ketorolac No 30mg 30 mg, Unive rs (TORADOL) 03-22 Slow IV ity of injection 05:15: 04:14 Push, [place] 30 mg 00 :00 ONCE, 1 Medical dose, Sat Branch 03/22/20 at 0015, Routine
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 metroNIDAZO 2019-0 2020- No [id number] 500mg Take 1 [facility] LE 500 mg 8-15 08-30 tablet by ity of tablet 00:00: 04:59 mouth 2 [place] 00 :00 (two) Medical times Branch daily for 14 days. metroNIDAZO 2019- 2020- No [id number] 500mg Take 1 [facility] LE 500 mg 8-15 08-30 tablet by ity of tablet 00:00: 04:59 mouth 2 [place] 00 :00 (two) Medical times Branch daily for 14 days. metroNIDAZO 2019-2019- No [id number] 500mg Take 1 [facility] LE 500 mg 8-15 08-30 tablet by ity of tablet 00:00: 04:59 mouth 2 [place] 00 :00 (two) Medical times Branch daily for 14 days. metroNIDAZO 2019-2019- No [id number] 500mg Take 1 [facility] LE 500 mg 8-15 08-30 tablet by ity of tablet 00:00: 04:59 mouth 2 [place] 00 :00 (two) Medical times Branch daily for 14 days. cefTRIAXone Yes 250mg 250 mg, Un alex (ROCEPHIN) 02-25 Intramuscu ity of injection 23:30: lar, Q24H, [place] 250 mg 00 First dose Medical on [facility] Branch 02/26/20 at 1830, Until Discontinu ed, ARA
Re ason for Anti-Infec tive: Documented Infection< br>Documen kareen Infection Site: Pelvic
Duration of Therapy: Other (see Comments) azithromyci 2019- No 1000mg 1,000 mg, Univers n 02-25- Oral, ity of (ZITHROMAX) 23:30: 23:39 ONCE, 1 [place] tablet 00 :00 dose, [facility] Medical 1,000 mg 02/26/20 at [facility] h 1830, ARA
Re ason for Anti-Infec tive: Documented Infection< br>Documen kareen Infection Site: Pelvic
Duration of Therapy: Other (see Comments) ketorolac 2019- No 15mg 15 mg, Unive rs (TORADOL) 02-25 Slow IV ity of injection 23:15: 22:18 Push, [place] 15 mg 00 :00 ONCE, 1 Medical dose, Tu Branch 02/26/20 at 1815, ARA
Fa [facility] member approving Restricted medication : EVANGELIST BONNER ondansetron 2019-0 2020- No 4mg 4 mg, Slow Univers (ZOFRAN 02-25 IV Push, ity of (PF)) 23:15: 22:21 ONCE, 1 [place] injection 4 00 :00 dose, Tue Med ical mg 02/26/20 at Branch 1815, ARA morpHINE 2020-0 2020- No 4mg 4 mg, Slow Un alex injection 4 02-25 IV Push, ity of mg 23:15: 22:21 ONCE, 1 [place] 00 :00 dose, Tu Medical 02/26/20 at Branch 1815, STAT ibuprofen 2020-0 Yes [id number] 800mg Take 1 [facility] 800 mg 7-21 tablet by ity of tablet 00:00: mouth [place] 00 every 6 Medical (six) Branch hours as needed for Pain (scale 4-6). ibuprofen 2020-0 Yes [id number] 800mg Take 1 [facility] 800 mg 7-21 tablet by ity of tablet 00:00: mouth [place] 00 every 6 Medical (six) Branch hours as needed for Pain (scale 4-6). ibuprofen 2020-0 Yes [id number] 800mg Take 1 [facility] 800 mg 7-21 tablet by ity of tablet 00:00: mouth [place] 00 every 6 Medical (six) Branch hours as needed for Pain (scale 4-6). ibuprofen 2020-0 Yes [id number] 800mg Take 1 [facility] 800 mg 7-21 tablet by ity of tablet 00:00: mouth [place] 00 every 6 Medical (six) Branch hours as needed for Pain (scale 4-6). ibuprofen 2020-0 Yes [id number] 800mg Take 1 [facility] 800 mg 7-21 tablet by ity of tablet 00:00: mouth [place] 00 every 6 Medical (six) Branch hours as needed for Pain (scale 4-6). ibuprofen 2020-0 Yes [id number] 800mg Take 1 [facility] 800 mg 7-21 tablet by ity of tablet 00:00: mouth [place] 00 every 6 Medical (six) Branch hours as needed for Pain (scale 4-6). ibuprofen 2020-0 Yes [id number] 800mg Take 1 [facility] 800 mg 7-21 tablet by ity of tablet 00:00: mouth [place] 00 every 6 Medical (six) Branch hours as needed for Pain (scale 4-6). ibuprofen 2020-0 Yes [id number] 800mg Take 1 [facility] 800 mg 7-21 tablet by ity of tablet 00:00: mouth [place] 00 every 6 Medical (six) Branch hours as needed for Pain (scale 4-6). ibuprofen 2020-0 Yes [id number] 800mg Take 1 [facility] 800 mg 7-21 tablet by ity of tablet 00:00: mouth [place] 00 every 6 Medical (six) Branch hours as needed for Pain (scale 4-6). ibuprofen 2020-0 Yes [id number] 800mg Take 1 [facility] 800 mg 7-21 tablet by ity of tablet 00:00: mouth [place] 00 every 6 Medical (six) Branch hours as needed for Pain (scale 4-6). ibuprofen 2020-0 Yes [id number] 800mg Take 1 [facility] 800 mg 7-21 tablet by ity of tablet 00:00: mouth [place] 00 every 6 Medical (six) Branch hours as needed for Pain (scale 4-6). ibuprofen 2020-0 Yes [id number] 800mg Take 1 [facility] 800 mg 7-21 tablet by ity of tablet 00:00: mouth [place] 00 every 6 Medical (six) Branch hours as needed for Pain (scale 4-6). ibuprofen 2020-0 Yes [id number] 800mg Take 1 [facility] 800 mg 7-21 tablet by ity of tablet 00:00: mouth [place] 00 every 6 Medical (six) Branch hours as needed for Pain (scale 4-6). ibuprofen 2020-0 Yes [id number] 800mg Take 1 [facility] 800 mg 7-21 tablet by ity of tablet 00:00: mouth [place] 00 every 6 Medical (six) Branch hours as needed for Pain (scale 4-6). ibuprofen 2020-0 Yes [id number] 800mg Take 1 [facility] 800 mg 7-21 tablet by ity of tablet 00:00: mouth [place] 00 every 6 Medical (six) Branch hours as needed for Pain (scale 4-6). ibuprofen 2020-0 Yes [id number] 800mg Take 1 [facility] 800 mg 7-21 tablet by ity of tablet 00:00: mouth [place] 00 every 6 Medical (six) Branch hours as needed for Pain (scale 4-6). ibuprofen 2020-0 Yes [id number] 800mg Take 1 [facility] 800 mg 7-21 tablet by ity of tablet 00:00: mouth [place] 00 every 6 Medical (six) Branch hours as needed for Pain (scale 4-6). ibuprofen 2020-0 Yes [id number] 800mg Take 1 [facility] 800 mg 7-21 tablet by ity of tablet 00:00: mouth [place] 00 every 6 Medical (six) Branch hours as needed for Pain (scale 4-6). ibuprofen 2020-0 Yes [id number] 800mg Take 1 [facility] 800 mg 7-21 tablet by ity of tablet 00:00: mouth [place] 00 every 6 Medical (six) Branch hours as needed for Pain (scale 4-6). ibuprofen 2020-0 Yes [id number] 800mg Take 1 [facility] 800 mg 7-21 tablet by ity of tablet 00:00: mouth [place] 00 every 6 Medical (six) Branch hours as needed for Pain (scale 4-6). ibuprofen 2020-0 Yes [id number] 800mg Take 1 [facility] 800 mg 7-21 tablet by ity of tablet 00:00: mouth [place] 00 every 6 Medical (six) Branch hours as needed for Pain (scale 4-6). ibuprofen 2020-0 Yes [id number] 800mg Take 1 [facility] 800 mg 7-21 tablet by ity of tablet 00:00: mouth [place] 00 every 6 Medical (six) Branch hours as needed for Pain (scale 4-6). ibuprofen 2020-0 Yes [id number] 800mg Take 1 [facility] 800 mg 7-21 tablet by ity of tablet 00:00: mouth [place] 00 every 6 Medical (six) Branch hours as needed for Pain (scale 4-6). ibuprofen 2020-0 Yes [id number] 800mg Take 1 [facility] 800 mg 7-21 tablet by ity of tablet 00:00: mouth [place] 00 every 6 Medical (six) Branch hours as needed for Pain (scale 4-6). ibuprofen 2020-0 Yes [id number] 800mg Take 1 [facility] 800 mg 7-21 tablet by ity of tablet 00:00: mouth [place] 00 every 6 Medical (six) Branch hours as needed for Pain (scale 4-6). ibuprofen 2020-0 Yes [id number] 800mg Take 1 [facility] 800 mg 7-21 tablet by ity of tablet 00:00: mouth [place] 00 every 6 Medical (six) Branch hours as needed for Pain (scale 4-6). ibuprofen 2020-0 Yes [id number] 800mg Take 1 [facility] 800 mg 7-21 tablet by ity of tablet 00:00: mouth [place] 00 every 6 Medical (six) Branch hours as needed for Pain (scale 4-6). ibuprofen 2020-0 Yes [id number] 800mg Take 1 [facility] 800 mg 7-21 tablet by ity of tablet 00:00: mouth [place] 00 every 6 Medical (six) Branch hours as needed for Pain (scale 4-6). ibuprofen 2020-0 Yes [id number] 800mg Take 1 [facility] 800 mg 7-21 tablet by ity of tablet 00:00: mouth [place] 00 every 6 Medical (six) Branch hours as needed for Pain (scale 4-6). ibuprofen 2020-0 Yes [id number] 800mg Take 1 [facility] 800 mg 7-21 tablet by ity of tablet 00:00: mouth [place] 00 every 6 Medical (six) Branch hours as needed for Pain (scale 4-6). ibuprofen 2020-0 Yes [id number] 800mg Take 1 [facility] 800 mg 7-21 tablet by ity of tablet 00:00: mouth [place] 00 every 6 Medical (six) Branch hours as needed for Pain (scale 4-6). ibuprofen 2020-0 Yes [id number] 800mg Take 1 [facility] 800 mg 7-21 tablet by ity of tablet 00:00: mouth [place] 00 every 6 Medical (six) Branch hours as needed for Pain (scale 4-6). ibuprofen 2020-0 Yes [id number] 800mg Take 1 [facility] 800 mg 7-21 tablet by ity of tablet 00:00: mouth [place] 00 every 6 Medical (six) Branch hours as needed for Pain (scale 4-6). ibuprofen 2020-0 Yes [id number] 800mg Take 1 [facility] 800 mg 7-21 tablet by ity of tablet 00:00: mouth [place] 00 every 6 Medical (six) Branch hours as needed for Pain (scale 4-6). ibuprofen 2020-0 Yes [id number] 800mg Take 1 [facility] 800 mg 7-21 tablet by ity of tablet 00:00: mouth [place] 00 every 6 Medical (six) Branch hours as needed for Pain (scale 4-6). ibuprofen 2020-0 Yes [id number] 800mg Take 1 [facility] 800 mg 7-21 tablet by ity of tablet 00:00: mouth [place] 00 every 6 Medical (six) Branch hours as needed for Pain (scale 4-6). ibuprofen 2020-0 Yes [id number] 800mg Take 1 [facility] 800 mg 7-21 tablet by ity of tablet 00:00: mouth [place] 00 every 6 Medical (six) Branch hours as needed for Pain (scale 4-6). ibuprofen 2020-0 Yes [id number] 800mg Take 1 [facility] 800 mg 7-21 tablet by ity of tablet 00:00: mouth [place] 00 every 6 Medical (six) Branch hours as needed for Pain (scale 4-6). ibuprofen 2020-0 Yes [id number] 800mg Take 1 [facility] 800 mg 7-21 tablet by ity of tablet 00:00: mouth [place] 00 every 6 Medical (six) Branch hours as needed for Pain (scale 4-6). ibuprofen 2020-0 Yes [id number] 800mg Take 1 [facility] 800 mg 7-21 tablet by ity of tablet 00:00: mouth [place] 00 every 6 Medical (six) Branch hours as needed for Pain (scale 4-6). ibuprofen 2020-0 Yes [id number] 800mg Take 1 [facility] 800 mg 7-21 tablet by ity of tablet 00:00: mouth [place] 00 every 6 Medical (six) Branch hours as needed for Pain (scale 4-6). ibuprofen 2020-0 Yes [id number] 800mg Take 1 [facility] 800 mg 7-21 tablet by ity of tablet 00:00: mouth [place] 00 every 6 Medical (six) Branch hours as needed for Pain (scale 4-6). ibuprofen 2020-0 Yes [id number] 800mg Take 1 [facility] 800 mg 7-21 tablet by ity of tablet 00:00: mouth [place] 00 every 6 Medical (six) Branch hours as needed for Pain (scale 4-6). ibuprofen 2020-0 Yes [id number] 800mg Take 1 [facility] 800 mg 7-21 tablet by ity of tablet 00:00: mouth [place] 00 every 6 Medical (six) Branch hours as needed for Pain (scale 4-6). ibuprofen 2020-0 Yes [id number] 800mg Take 1 [facility] 800 mg 7-21 tablet by ity of tablet 00:00: mouth [place] 00 every 6 Medical (six) Branch hours as needed for Pain (scale 4-6). ibuprofen 2020-0 Yes [id number] 800mg Take 1 [facility] 800 mg 7-21 tablet by ity of tablet 00:00: mouth [place] 00 every 6 Medical (six) Branch hours as needed for Pain (scale 4-6). ibuprofen 2020-0 Yes [id number] 800mg Take 1 [facility] 800 mg 7-21 tablet by ity of tablet 00:00: mouth [place] 00 every 6 Medical (six) Branch hours as needed for Pain (scale 4-6). ibuprofen 2020-0 Yes [id number] 800mg Take 1 [facility] 800 mg 7-21 tablet by ity of tablet 00:00: mouth [place] 00 every 6 Medical (six) Branch hours as needed for Pain (scale 4-6). ibuprofen 2020-0 Yes [id number] 800mg Take 1 [facility] 800 mg 7-21 tablet by ity of tablet 00:00: mouth [place] 00 every 6 Medical (six) Branch hours as needed for Pain (scale 4-6). ibuprofen 2020-0 Yes [id number] 800mg Take 1 [facility] 800 mg 7-21 tablet by ity of tablet 00:00: mouth [place] 00 every 6 Medical (six) Branch hours as needed for Pain (scale 4-6). ibuprofen 2020-0 Yes [id number] 800mg Take 1 [facility] 800 mg 7-21 tablet by ity of tablet 00:00: mouth [place] 00 every 6 Medical (six) Branch hours as needed for Pain (scale 4-6). ibuprofen 2020-0 Yes [id number] 800mg Take 1 [facility] 800 mg 7-21 tablet by ity of tablet 00:00: mouth [place] 00 every 6 Medical (six) Branch hours as needed for Pain (scale 4-6). ibuprofen 2020-0 Yes [id number] 800mg Take 1 [facility] 800 mg 7-21 tablet by ity of tablet 00:00: mouth [place] 00 every 6 Medical (six) Branch hours as needed for Pain (scale 4-6). ibuprofen 2020-0 Yes [id number] 800mg Take 1 [facility] 800 mg 7-21 tablet by ity of tablet 00:00: mouth [place] 00 every 6 Medical (six) Branch hours as needed for Pain (scale 4-6). ibuprofen 2020-0 Yes [id number] 800mg Take 1 [facility] 800 mg 7-21 tablet by ity of tablet 00:00: mouth [place] 00 every 6 Medical (six) Branch hours as needed for Pain (scale 4-6). ibuprofen 2020-0 Yes [id number] 800mg Take 1 [facility] 800 mg 7-21 tablet by ity of tablet 00:00: mouth [place] 00 every 6 Medical (six) Branch hours as needed for Pain (scale 4-6). ibuprofen 2020-0 Yes [id number] 800mg Take 1 [facility] 800 mg 7-21 tablet by ity of tablet 00:00: mouth [place] 00 every 6 Medical (six) Branch hours as needed for Pain (scale 4-6). ibuprofen 2020-0 Yes [id number] 800mg Take 1 [facility] 800 mg 7-21 tablet by ity of tablet 00:00: mouth [place] 00 every 6 Medical (six) Branch hours as needed for Pain (scale 4-6). ibuprofen 2020-0 Yes [id number] 800mg Take 1 [facility] 800 mg 7-21 tablet by ity of tablet 00:00: mouth [place] 00 every 6 Medical (six) Branch hours as needed for Pain (scale 4-6). ibuprofen 2020-0 Yes [id number] 800mg Take 1 [facility] 800 mg 7-21 tablet by ity of tablet 00:00: mouth [place] 00 every 6 Medical (six) Branch hours as needed for Pain (scale 4-6). ibuprofen 2020-0 Yes [id number] 800mg Take 1 [facility] 800 mg 7-21 tablet by ity of tablet 00:00: mouth [place] 00 every 6 Medical (six) Branch hours as needed for Pain (scale 4-6). ibuprofen 2020-0 Yes [id number] 800mg Take 1 [facility] 800 mg 7-21 tablet by ity of tablet 00:00: mouth [place] 00 every 6 Medical (six) Branch hours as needed for Pain (scale 4-6). ibuprofen 2020-0 Yes [id number] 800mg Take 1 [facility] 800 mg 7-21 tablet by ity of tablet 00:00: mouth [place] 00 every 6 Medical (six) Branch hours as needed for Pain (scale 4-6). ibuprofen 2020-0 Yes [id number] 800mg Take 1 [facility] 800 mg 7-21 tablet by ity of tablet 00:00: mouth [place] 00 every 6 Medical (six) Branch hours as needed for Pain (scale 4-6). ibuprofen 2020-0 Yes [id number] 800mg Take 1 [facility] 800 mg 7-21 tablet by ity of tablet 00:00: mouth [place] 00 every 6 Medical (six) Branch hours as needed for Pain (scale 4-6). ibuprofen 2019- Yes [id number] 800mg Take 1 [facility] 800 mg 7-21 tablet by ity of tablet 00:00: mouth [place] 00 every 6 Medical (six) Branch hours as needed for Pain (scale 4-6). ibuprofen 2019- Yes [id number] 800mg Take 1 [facility] 800 mg 7-21 tablet by ity of tablet 00:00: mouth [place] 00 every 6 Medical (six) Branch hours as needed for Pain (scale 4-6). ibuprofen 2019-2020- No [id number] 800mg Take 1 [facility] 800 mg 7-21 08-18 tablet by ity of tablet 00:00: 00:00 mouth [place] 00 :00 every 6 Medical (six) Branch hours as needed for Pain (scale 4-6). doxycycline 2019-2019- No [id number] 100mg Take 1 [facility] hyclate 100 7- 08-05 capsule by i ty of mg capsule 00:00: 04:59 mouth 2 [place] 00 :00 (two) Medical times Branch daily for 14 days. metroNIDAZO 2019-2019- No [id number] 500mg Take 1 [facility] LE 500 mg 7- 08-05 tablet by ity of tablet 00:00: 04:59 mouth 2 [place] 00 :00 (two) Medical times Branch daily for 14 days. levonorgest 2019-0 2020- No 1{devic Un alex rel 10-05 e} ity of (LILETTA) 23:00: 21:54 [place] IUD 1 00 :00 Pharmacy Technician Per Diem Branch levonorgest 2019-0 2020- No 1{devic 1 Device, Univers rel 10-05 e} Intrauteri ity of (LILETTA) 23:00: 21:54 [place], ONCE, [place] IUD 1 00 :00 1 dose, Pharmacy Technician Per Diem Fri Branch 10/05/19 at 1700, Routine levonorgest 2019-0 2020- No 1{devic Un alex rel 10-05 e} ity of (LILETTA) 23:00: 21:54 [place] IUD 1 00 :00 Pharmacy Technician Per Diem Branch levonorgest 2019-0 2020- No 1{devic 1 Device, Univers rel 10-05 e} Intrauteri ity of (LILETTA) 23:00: 21:54 ne, ONCE, [place] IUD 1 00 :00 1 dose, Pharmacy Technician Per Diem Fri Branch 10/05/19 at 1700, Routine 2018-08 Yes [id number] 1{tbl} Take 1 [facility] vitamin 1-03 tablet by ity of w/FA tablet 00:00: mouth [place] 00 daily. Medical Branch docusate 2018-08 Yes [id number] 240mg Take 1 U nivers calcium 240 1-03 capsule by it y of mg capsule 00:00: mouth once [place] 00 daily as Medical needed for Branch Constipati on. ferrous 2018-08 Yes [id number] 325mg Take 1 Un alex sulfate 325 1-03 tablet by ity of mg (65 mg 00:00: mouth 2 [place] iron) 00 (two) Medical tablet times Branch daily. ibuprofen 2018-08 Yes [id number] 600mg Take 1 [facility] 600 mg 1-03 tablet by ity of tablet 00:00: mouth [place] 00 every 6 Medical (six) Branch hours as needed for Pain (scale 1-3) or Pain (scale 4-6) (Pain). Take with food or milk. 2018-08 Yes [id number] 1{tbl} Take 1 [facility] vitamin 1-03 tablet by ity of w/FA tablet 00:00: mouth [place] 00 daily. Medical Branch docusate 2018-08 Yes [id number] 240mg Take 1 U nivers calcium 240 1-03 capsule by it y of mg capsule 00:00: mouth once [place] 00 daily as Medical needed for Branch Constipati on. ferrous 2018-08 Yes [id number] 325mg Take 1 Un alex sulfate 325 1-03 tablet by ity of mg (65 mg 00:00: mouth 2 [place] iron) 00 (two) Medical tablet times Branch daily. ibuprofen 2018-08 Yes [id number] 600mg Take 1 [facility] 600 mg 1-03 tablet by ity of tablet 00:00: mouth [place] 00 every 6 Medical (six) Branch hours as needed for Pain (scale 1-3) or Pain (scale 4-6) (Pain). Take with food or milk. 2018-08 Yes [id number] 1{tbl} Take 1 [facility] vitamin 1-03 tablet by ity of w/FA tablet 00:00: mouth [place] 00 daily. Medical Branch docusate 2018-08 Yes [id number] 240mg Take 1 U nivers calcium 240 1-03 capsule by it y of mg capsule 00:00: mouth once [place] 00 daily as Medical needed for Branch Constipati on. ferrous 2018-08 Yes [id number] 325mg Take 1 Un alex sulfate 325 1-03 tablet by ity of mg (65 mg 00:00: mouth 2 [place] iron) 00 (two) Medical tablet times Branch daily. ibuprofen 2018-08 Yes [id number] 600mg Take 1 [facility] 600 mg 1-03 tablet by ity of tablet 00:00: mouth [place] 00 every 6 Medical (six) Branch hours as needed for Pain (scale 1-3) or Pain (scale 4-6) (Pain). Take with food or milk. 2018-08 Yes [id number] 1{tbl} Take 1 [facility] vitamin 1-03 tablet by ity of w/FA tablet 00:00: mouth [place] 00 daily. Medical Branch docusate 2018-08 Yes [id number] 240mg Take 1 U nivers calcium 240 1-03 capsule by it y of mg capsule 00:00: mouth once [place] 00 daily as Medical needed for Branch Constipati on. ferrous 2018-08 Yes [id number] 325mg Take 1 Un alex sulfate 325 1-03 tablet by ity of mg (65 mg 00:00: mouth 2 [place] iron) 00 (two) Medical tablet times Branch daily. ibuprofen 2018-08 Yes [id number] 600mg Take 1 [facility] 600 mg 1-03 tablet by ity of tablet 00:00: mouth [place] 00 every 6 Medical (six) Branch hours as needed for Pain (scale 1-3) or Pain (scale 4-6) (Pain). Take with food or milk. 2018-08 Yes [id number] 1{tbl} Take 1 [facility] vitamin 1-03 tablet by ity of w/FA tablet 00:00: mouth [place] 00 daily. Medical Branch docusate 2018-08 Yes [id number] 240mg Take 1 U nivers calcium 240 1-03 capsule by it y of mg capsule 00:00: mouth once [place] 00 daily as Medical needed for Branch Constipati on. ferrous 2018-08 Yes [id number] 325mg Take 1 Un alex sulfate 325 1-03 tablet by ity of mg (65 mg 00:00: mouth 2 [place] iron) 00 (two) Medical tablet times Branch daily. ibuprofen 2018-08 Yes [id number] 600mg Take 1 [facility] 600 mg 1-03 tablet by ity of tablet 00:00: mouth [place] 00 every 6 Medical (six) Branch hours as needed for Pain (scale 1-3) or Pain (scale 4-6) (Pain). Take with food or milk. 2018-08 Yes [id number] 1{tbl} Take 1 [facility] vitamin 1-03 tablet by ity of w/FA tablet 00:00: mouth [place] 00 daily. Medical Branch docusate 2018-08 Yes [id number] 240mg Take 1 U nivers calcium 240 1-03 capsule by it y of mg capsule 00:00: mouth once [place] 00 daily as Medical needed for Branch Constipati on. ferrous 2018-08 Yes [id number] 325mg Take 1 Un alex sulfate 325 1-03 tablet by ity of mg (65 mg 00:00: mouth 2 [place] iron) 00 (two) Medical tablet times Branch daily. ibuprofen 2018-08 Yes [id number] 600mg Take 1 [facility] 600 mg 1-03 tablet by ity of tablet 00:00: mouth [place] 00 every 6 Medical (six) Branch hours as needed for Pain (scale 1-3) or Pain (scale 4-6) (Pain). Take with food or milk. 2018-08 Yes [id number] 1{tbl} Take 1 [facility] vitamin 1-03 tablet by ity of w/FA tablet 00:00: mouth [place] 00 daily. Medical Branch docusate 2018-08 Yes [id number] 240mg Take 1 U nivers calcium 240 1-03 capsule by it y of mg capsule 00:00: mouth once [place] 00 daily as Medical needed for Branch Constipati on. ferrous 2018-08 Yes [id number] 325mg Take 1 Un alex sulfate 325 1-03 tablet by ity of mg (65 mg 00:00: mouth 2 [place] iron) 00 (two) Medical tablet times Branch daily. ibuprofen 2018-08 Yes [id number] 600mg Take 1 [facility] 600 mg 1-03 tablet by ity of tablet 00:00: mouth [place] 00 every 6 Medical (six) Branch hours as needed for Pain (scale 1-3) or Pain (scale 4-6) (Pain). Take with food or milk. 2018-08 Yes [id number] 1{tbl} Take 1 Univers vitamin 1-03 tablet by [facility] w/FA tablet 00:00: mouth [place] 00 daily. [facility] docusate 2018-08 Yes [id number] 240mg Take 1 [facility] n[facility] calcium 240 1-03 capsule by [facility] y [facility] mg capsule 00:00: mouth once [place] 00 daily as Medical needed for Branch Constipati on. ferrous 2018-08 Yes [id number] 325mg Take 1 Un alex sulfate 325 1-03 tablet by [facility] of mg (65 mg 00:00: mouth 2 [place] iron) 00 (two) Medical tablet times Branch daily. ibuprofen 2018-08 Yes [id number] 600mg Take 1 [facility] 600 mg 1-03 tablet by [facility] tablet 00:00: mouth [place] 00 every 6 Medical (six) Branch hours as needed for Pain (scale 1-3) or Pain (scale 4-6) (Pain). Take with food or milk. 2018-08 Yes [id number] 1{tbl} Take 1 [facility] vitamin 1-03 tablet by [facility] w/FA tablet 00:00: mouth [place] [facility]. [facility] [id number] 240mg Take 1 [facility] nivers calcium 240 1-03 capsule by [facility] y of mg capsule 00:00: mouth once [place] 00 daily as Medical needed for Branch Constipati on. ferrous 2018-08 Yes [id number] 325mg Take 1 Un alex sulfate 325 1-03 tablet by [facility] of mg (65 mg 00:00: mouth 2 [place] iron) 00 (two) Medical tablet times Branch daily. ibuprofen 2018-08 Yes [id number] 600mg Take 1 [facility] 600 mg 1-03 tablet by [facility] tablet 00:00: mouth [place] 00 every 6 Medical (six) Branch hours as needed for Pain (scale 1-3) or Pain (scale 4-6) (Pain). Take with food or milk. 2018-08 Yes [id number] 1{tbl} Take 1 [facility] vitamin 1-03 tablet by [facility] w/FA tablet 00:00: mouth [place] 00 [facility]. [facility] Yes [id number] 240mg Take 1 [facility] nivers calcium 240 1-03 capsule by [facility] of mg capsule 00:00: mouth once [place] 00 daily as Medical needed for Branch Constipati on. ferrous 2018-08 Yes [id number] 325mg Take 1 Un alex sulfate 325 1-03 tablet by [facility] of mg (65 mg 00:00: mouth 2 [place] iron) 00 (two) Medical tablet times Branch daily. ibuprofen 2018-08 Yes [id number] 600mg Take 1 [facility] 600 mg 1-03 tablet by [facility] of tablet 00:00: mouth [place] 00 every 6 Medical (six) Branch hours as needed for Pain (scale 1-3) or Pain (scale 4-6) (Pain). Take with food or milk. 2018-08 Yes [id number] 1{tbl} Take 1 [facility] vitamin 1-03 tablet by [facility] w/FA tablet 00:00: mouth [place] 00 daily. [facility] docusate 2018-08 Yes [id number] 240mg Take 1 [facility] nivers calcium 240 1-03 capsule by [facility] mg capsule 00:00: mouth once [place] 00 daily as Medical needed for Branch Constipati on. ferrous 2018-08 Yes [id number] 325mg Take 1 Un alex sulfate 325 1-03 tablet by [facility] of mg (65 mg 00:00: mouth 2 [place] iron) 00 (two) Medical tablet times Branch daily. ibuprofen 2018-08 Yes [id number] 600mg Take 1 [facility] 600 mg 1-03 tablet by [facility] of tablet 00:00: mouth [place] 00 every 6 Medical (six) Branch hours as needed for Pain (scale 1-3) or Pain (scale 4-6) (Pain). Take with food or milk. 2018-08 Yes [id number] 1{tbl} Take 1 [facility] vitamin 1-03 tablet by [facility] w/FA tablet 00:00: mouth [place] 00 daily. [facility] docusate 2018-08 Yes [id number] 240mg Take 1 [facility] nivers calcium 240 1-03 capsule by [facility] mg capsule 00:00: mouth once [place] 00 daily as Medical needed for Branch Constipati on. ferrous 2018-08 Yes [id number] 325mg Take 1 Un alex sulfate 325 1-03 tablet by [facility] of mg (65 mg 00:00: mouth 2 [place] iron) 00 (two) Medical tablet times Branch daily. ibuprofen 2018-08 Yes [id number] 600mg Take 1 [facility] 600 mg 1-03 tablet by [facility] of tablet 00:00: mouth [place] 00 every 6 Medical (six) Branch hours as needed for Pain (scale 1-3) or Pain (scale 4-6) (Pain). Take with food or milk. 2018-08 Yes [id number] 1{tbl} Take 1 [facility] vitamin 1-03 tablet by [facility] of w/FA tablet 00:00: mouth [place] 00 daily. [facility] Branch docusate 2018-08 Yes [id number] 240mg Take 1 [facility] nivers calcium 240 1-03 capsule by [facility] y of mg capsule 00:00: mouth once [place] 00 daily as Medical needed for Branch Constipati on. ferrous 2018-08 Yes [id number] 325mg Take 1 Un alex sulfate 325 1-03 tablet by [facility] of mg (65 mg 00:00: mouth 2 [place] iron) 00 (two) Medical tablet times Branch daily. ibuprofen 2018-08 Yes [id number] 600mg Take 1 [facility] 600 mg 1-03 tablet by [facility] of tablet 00:00: mouth [place] 00 every 6 Medical (six) Branch hours as needed for Pain (scale 1-3) or Pain (scale 4-6) (Pain). Take with food or milk. 2018-08 Yes [id number] 1{tbl} Take 1 [facility] vitamin 1-03 tablet by [facility] w/FA tablet 00:00: mouth [place] 00 [facility]. [facility] Yes [id number] 240mg Take 1 [facility] nivers calcium 240 1-03 capsule by [facility] of mg capsule 00:00: mouth once [place] 00 daily as Medical needed for Branch Constipati on. ferrous 2018-08 Yes [id number] 325mg Take 1 Un alex sulfate 325 1-03 tablet by [facility] of mg (65 mg 00:00: mouth 2 [place] iron) 00 (two) Medical tablet times Branch daily. ibuprofen 2018-08 Yes [id number] 600mg Take 1 [facility] 600 mg 1-03 tablet by [facility] of tablet 00:00: mouth [place] 00 every 6 Medical (six) Branch hours as needed for Pain (scale 1-3) or Pain (scale 4-6) (Pain). Take with food or milk. 2018-08 Yes [id number] 1{tbl} Take 1 [facility] vitamin 1-03 tablet by [facility] of w/FA tablet 00:00: mouth [place] 00 daily. [facility] docusate 2018-08 Yes [id number] 240mg Take 1 [facility] nivers calcium 240 1-03 capsule by [facility] of mg capsule 00:00: mouth once [place] 00 daily as Medical needed for Branch Constipati on. ferrous 2018-08 Yes [id number] 325mg Take 1 Un alex sulfate 325 1-03 tablet by [facility] of mg (65 mg 00:00: mouth 2 [place] iron) 00 (two) Medical tablet times Branch daily. ibuprofen 2018-08 Yes [id number] 600mg Take 1 [facility] 600 mg 1-03 tablet by [facility] of tablet 00:00: mouth [place] 00 every 6 Medical (six) Branch hours as needed for Pain (scale 1-3) or Pain (scale 4-6) (Pain). Take with food or milk. 2018-08 Yes [id number] 1{tbl} Take 1 [facility] vitamin 1-03 tablet by [facility] of w/FA tablet 00:00: mouth [place] 00 daily. [facility] docusate 2018-08 Yes [id number] 240mg Take 1 [facility] nivers calcium 240 1-03 capsule by [facility] of mg capsule 00:00: mouth once [place] 00 daily as Medical needed for Branch Constipati on. ferrous 2018-08 Yes [id number] 325mg Take 1 Un alex sulfate 325 1-03 tablet by [facility] of mg (65 mg 00:00: mouth 2 [place] iron) 00 (two) Medical tablet times Branch daily. ibuprofen 2018-08 Yes [id number] 600mg Take 1 [facility] 600 mg 1-03 tablet by [facility] of tablet 00:00: mouth [place] 00 every 6 Medical (six) Branch hours as needed for Pain (scale 1-3) or Pain (scale 4-6) (Pain). Take with food or milk. 2018-08 Yes [id number] 1{tbl} Take 1 [facility] vitamin 1-03 tablet by [facility] of w/FA tablet 00:00: mouth [place] 00 daily. [facility] docusate 2018-08 Yes [id number] 240mg Take 1 [facility] nivers calcium 240 1-03 capsule by [facility] of mg capsule 00:00: mouth once [place] 00 daily as Medical needed for Branch Constipati on. ferrous 2018-08 Yes [id number] 325mg Take 1 Un alex sulfate 325 1-03 tablet by [facility] of mg (65 mg 00:00: mouth 2 [place] iron) 00 (two) Medical tablet times Branch daily. ibuprofen 2018-08 Yes [id number] 600mg Take 1 [facility] 600 mg 1-03 tablet by [facility] of tablet 00:00: mouth [place] 00 every 6 Medical (six) Branch hours as needed for Pain (scale 1-3) or Pain (scale 4-6) (Pain). Take with food or milk. 2018-08 Yes [id number] 1{tbl} Take 1 [facility] vitamin 1-03 tablet by [facility] of w/FA tablet 00:00: mouth [place] 00 daily. [facility] Branch docusate 2018-08 Yes [id number] 240mg Take 1 [facility] nivers calcium 240 1-03 capsule by [facility] of mg capsule 00:00: mouth once [place] 00 daily as Medical needed for Branch Constipati on. ferrous 2018-08 Yes [id number] 325mg Take 1 Un alex sulfate 325 1-03 tablet by [facility] of mg (65 mg 00:00: mouth 2 [place] iron) 00 (two) Medical tablet times Branch daily. ibuprofen 2018-08 Yes [id number] 600mg Take 1 [facility] 600 mg 1-03 tablet by [facility] of tablet 00:00: mouth [place] 00 every 6 Medical (six) Branch hours as needed for Pain (scale 1-3) or Pain (scale 4-6) (Pain). Take with food or milk. 2018-08 Yes [id number] 1{tbl} Take 1 [facility] vitamin 1-03 tablet by [facility] of w/FA tablet 00:00: mouth [place] 00 daily. [facility] docusate 2018-08 Yes [id number] 240mg Take 1 [facility] nivers calcium 240 1-03 capsule by [facility] of mg capsule 00:00: mouth once [place] 00 daily as Medical needed for Branch Constipati on. ferrous 2018-08 Yes [id number] 325mg Take 1 Un alex sulfate 325 1-03 tablet by [facility] of mg (65 mg 00:00: mouth 2 [place] iron) 00 (two) Medical tablet times Branch daily. ibuprofen 2018-08 Yes [id number] 600mg Take 1 [facility] 600 mg 1-03 tablet by [facility] of tablet 00:00: mouth [place] 00 every 6 Medical (six) Branch hours as needed for Pain (scale 1-3) or Pain (scale 4-6) (Pain). Take with food or milk. 2018-08 Yes [id number] 1{tbl} Take 1 [facility] vitamin 1-03 tablet by [facility] of w/FA tablet 00:00: mouth [place] 00 daily. [facility] docusate 2018-08 Yes [id number] 240mg Take 1 [facility] nivers calcium 240 1-03 capsule by [facility] of mg capsule 00:00: mouth once [place] 00 daily as Medical needed for Branch Constipati on. ferrous 2018-08 Yes [id number] 325mg Take 1 Un alex sulfate 325 1-03 tablet by [facility] of mg (65 mg 00:00: mouth 2 [place] iron) 00 (two) Medical tablet times Branch daily. ibuprofen 2018-08 Yes [id number] 600mg Take 1 [facility] 600 mg 1-03 tablet by [facility] of tablet 00:00: mouth [place] 00 every 6 Medical (six) Branch hours as needed for Pain (scale 1-3) or Pain (scale 4-6) (Pain). Take with food or milk. 2018-08 Yes [id number] 1{tbl} Take 1 [facility] vitamin 1-03 tablet by [facility] of w/FA tablet 00:00: mouth [place] 00 daily. [facility] docusate 2018-08 Yes [id number] 240mg Take 1 [facility] nivers calcium 240 1-03 capsule by [facility] of mg capsule 00:00: mouth once [place] 00 daily as Medical needed for Branch Constipati on. ferrous 2018-08 Yes [id number] 325mg Take 1 Un alex sulfate 325 1-03 tablet by [facility] of mg (65 mg 00:00: mouth 2 [place] iron) 00 (two) Medical tablet times Branch daily. ibuprofen 2018-08 Yes [id number] 600mg Take 1 [facility] 600 mg 1-03 tablet by [facility] of tablet 00:00: mouth [place] 00 every 6 Medical (six) Branch hours as needed for Pain (scale 1-3) or Pain (scale 4-6) (Pain). Take with food or milk. 2018-08 Yes [id number] 1{tbl} Take 1 [facility] vitamin 1-03 tablet by [facility] of w/FA tablet 00:00: mouth [place] 00 daily. [facility] Branch docusate 2018-08 Yes [id number] 240mg Take 1 [facility] nivers calcium 240 1-03 capsule by [facility] of mg capsule 00:00: mouth once [place] 00 daily as Medical needed for Branch Constipati on. ferrous 2018-08 Yes [id number] 325mg Take 1 Un alex sulfate 325 1-03 tablet by [facility] of mg (65 mg 00:00: mouth 2 [place] iron) 00 (two) Medical tablet times Branch daily. ibuprofen 2018-08 Yes [id number] 600mg Take 1 [facility] 600 mg 1-03 tablet by [facility] of tablet 00:00: mouth [place] 00 every 6 Medical (six) Branch hours as needed for Pain (scale 1-3) or Pain (scale 4-6) (Pain). Take with food or milk. 2018-08 Yes [id number] 1{tbl} Take 1 [facility] vitamin 1-03 tablet by [facility] of w/FA tablet 00:00: mouth [place] 00 daily. Medical Branch docusate 2018-08 Yes [id number] 240mg Take 1 [facility] nivers calcium 240 1-03 capsule by [facility] of mg capsule 00:00: mouth once [place] 00 daily as Medical needed for Branch Constipati on. ferrous 2018-08 Yes [id number] 325mg Take 1 Un alex sulfate 325 1-03 tablet by [facility] of mg (65 mg 00:00: mouth 2 [place] iron) 00 (two) Medical tablet times Branch daily. ibuprofen 2018-08 Yes [id number] 600mg Take 1 [facility] 600 mg 1-03 tablet by [facility] of tablet 00:00: mouth [place] 00 every 6 Medical (six) Branch hours as needed for Pain (scale 1-3) or Pain (scale 4-6) (Pain). Take with food or milk. 2018-08 Yes [id number] 1{tbl} Take 1 [facility] vitamin 1-03 tablet by [facility] of w/FA tablet 00:00: mouth [place] 00 daily. Medical Branch docusate 2018-08 Yes [id number] 240mg Take 1 [facility] nivers calcium 240 1-03 capsule by [facility] y of mg capsule 00:00: mouth once [place] 00 daily as Medical needed for Branch Constipati on. ferrous 2018-08 Yes [id number] 325mg Take 1 Un alex sulfate 325 1-03 tablet by [facility] of mg (65 mg 00:00: mouth 2 [place] iron) 00 (two) Medical tablet times Branch daily. ibuprofen 2018-08 Yes [id number] 600mg Take 1 [facility] 600 mg 1-03 tablet by [facility] of tablet 00:00: mouth [place] 00 every 6 Medical (six) Branch hours as needed for Pain (scale 1-3) or Pain (scale 4-6) (Pain). Take with food or milk. 2018-08 Yes [id number] 1{tbl} Take 1 [facility] vitamin 1-03 tablet by [facility] of w/FA tablet 00:00: mouth [place] 00 daily. [facility] Branch docusate 2018-08 Yes [id number] 240mg Take 1 [facility] nivers calcium 240 1-03 capsule by [facility] of mg capsule 00:00: mouth once [place] 00 daily as Medical needed for Branch Constipati on. ferrous 2018-08 Yes [id number] 325mg Take 1 Un alex sulfate 325 1-03 tablet by [facility] of mg (65 mg 00:00: mouth 2 [place] iron) 00 (two) Medical tablet times Branch daily. ibuprofen 2018-08 Yes [id number] 600mg Take 1 [facility] 600 mg 1-03 tablet by [facility] of tablet 00:00: mouth [place] 00 every 6 Medical (six) Branch hours as needed for Pain (scale 1-3) or Pain (scale 4-6) (Pain). Take with food or milk. 2018-08 Yes [id number] 1{tbl} Take 1 [facility] vitamin 1-03 tablet by [facility] of w/FA tablet 00:00: mouth [place] 00 daily. [facility] Branch docusate 2018-08 Yes [id number] 240mg Take 1 [facility] nivers calcium 240 1-03 capsule by [facility] of mg capsule 00:00: mouth once [place] 00 daily as Medical needed for Branch Constipati on. ferrous 2018-08 Yes [id number] 325mg Take 1 Un alex sulfate 325 1-03 tablet by [facility] of mg (65 mg 00:00: mouth 2 [place] iron) 00 (two) Medical tablet times Branch daily. ibuprofen 2018-08 Yes [id number] 600mg Take 1 [facility] 600 mg 1-03 tablet by [facility] of tablet 00:00: mouth [place] 00 every 6 Medical (six) Branch hours as needed for Pain (scale 1-3) or Pain (scale 4-6) (Pain). Take with food or milk. 2018-08 Yes [id number] 1{tbl} Take 1 [facility] vitamin 1-03 tablet by [facility] of w/FA tablet 00:00: mouth [place] 00 daily. [facility] docusate 2018-08 Yes [id number] 240mg Take 1 [facility] nivers calcium 240 1-03 capsule by [facility] of mg capsule 00:00: mouth once [place] 00 daily as Medical needed for Branch Constipati on. ferrous 2018-08 Yes [id number] 325mg Take 1 Un alex sulfate 325 1-03 tablet by [facility] of mg (65 mg 00:00: mouth 2 [place] iron) 00 (two) Medical tablet times Branch daily. ibuprofen 2018-08 Yes [id number] 600mg Take 1 [facility] 600 mg 1-03 tablet by [facility] of tablet 00:00: mouth [place] 00 every 6 Medical (six) Branch hours as needed for Pain (scale 1-3) or Pain (scale 4-6) (Pain). Take with food or milk. 2018-08 Yes [id number] 1{tbl} Take 1 [facility] vitamin 1-03 tablet by [facility] of w/FA tablet 00:00: mouth [place] 00 daily. [facility] docusate 2018-08 Yes [id number] 240mg Take 1 [facility] nivers calcium 240 1-03 capsule by [facility] of mg capsule 00:00: mouth once [place] 00 daily as Medical needed for Branch Constipati on. ferrous 2018-08 Yes [id number] 325mg Take 1 Un alex sulfate 325 1-03 tablet by [facility] of mg (65 mg 00:00: mouth 2 [place] iron) 00 (two) Medical tablet times Branch daily. ibuprofen 2018-08 Yes [id number] 600mg Take 1 [facility] 600 mg 1-03 tablet by [facility] of tablet 00:00: mouth [place] 00 every 6 Medical (six) Branch hours as needed for Pain (scale 1-3) or Pain (scale 4-6) (Pain). Take with food or milk. 2018-08 Yes [id number] 1{tbl} Take 1 [facility] vitamin 1-03 tablet by [facility] of w/FA tablet 00:00: mouth [place] 00 daily. [facility] Yes [id number] 240mg Take 1 [facility] nivers calcium 240 1-03 capsule by it y of mg capsule 00:00: mouth once [place] 00 daily as Medical needed for Branch Constipati on. ferrous 2018-08 Yes [id number] 325mg Take 1 Un alex sulfate 325 1-03 tablet by ity of mg (65 mg 00:00: mouth 2 [place] iron) 00 (two) Medical tablet times Branch daily. ibuprofen 2018-08 Yes [id number] 600mg Take 1 [facility] 600 mg 1-03 tablet by [facility] of tablet 00:00: mouth [place] 00 every 6 Medical (six) Branch hours as needed for Pain (scale 1-3) or Pain (scale 4-6) (Pain). Take with food or milk. 2018-08 Yes [id number] 1{tbl} Take 1 [facility] vitamin 1-03 tablet by [facility] of w/FA tablet 00:00: mouth [place] 00 daily. [facility] Branch docusate 2018-08 Yes [id number] 240mg Take 1 [facility] nivers calcium 240 1-03 capsule by it y of mg capsule 00:00: mouth once [place] 00 daily as Medical needed for Branch Constipati on. ferrous 2018-08 Yes [id number] 325mg Take 1 Un alex sulfate 325 1-03 tablet by [facility]y of mg (65 mg 00:00: mouth 2 [place] iron) 00 (two) Medical tablet times Branch daily. ibuprofen 2018-08 Yes [id number] 600mg Take 1 [facility] 600 mg 1-03 tablet by [facility] of tablet 00:00: mouth [place] 00 every 6 Medical (six) Branch hours as needed for Pain (scale 1-3) or Pain (scale 4-6) (Pain). Take with food or milk. 2018-08 Yes [id number] 1{tbl} Take 1 [facility] vitamin 1-03 tablet by [facility] of w/FA tablet 00:00: mouth [place] 00 daily. Medical Branch docusate 2018-08 Yes [id number] 240mg Take 1 [facility] nivers calcium 240 1-03 capsule by it y of mg capsule 00:00: mouth once [place] 00 daily as Medical needed for Branch Constipati on. ferrous 2018-08 Yes [id number] 325mg Take 1 Un alex sulfate 325 1-03 tablet by [facility] of mg (65 mg 00:00: mouth 2 [place] iron) 00 (two) Medical tablet times Branch daily. ibuprofen 2018-08 Yes [id number] 600mg Take 1 [facility] 600 mg 1-03 tablet by [facility] of tablet 00:00: mouth [place] 00 every 6 Medical (six) Branch hours as needed for Pain (scale 1-3) or Pain (scale 4-6) (Pain). Take with food or milk. 2018-08 Yes [id number] 1{tbl} Take 1 [facility] vitamin 1-03 tablet by [facility] of w/FA tablet 00:00: mouth [place] 00 daily. [facility] Branch docusate 2018-08 Yes [id number] 240mg Take 1 [facility] nivers calcium 240 1-03 capsule by [facility] of mg capsule 00:00: mouth once [place] 00 daily as Medical needed for Branch Constipati on. ferrous 2018-08 Yes [id number] 325mg Take 1 Un [place] sulfate 325 1-03 tablet by [facility] of mg (65 mg 00:00: mouth 2 [place] iron) 00 (two) Medical tablet times Branch daily. ibuprofen 2018-08 Yes [id number] 600mg Take 1 [facility] 600 mg 1-03 tablet by [facility] of tablet 00:00: mouth [place] 00 every 6 Medical (six) Branch hours as needed for Pain (scale 1-3) or Pain (scale 4-6) (Pain). Take with food or milk. 2018-08 Yes [id number] 1{tbl} Take 1 [facility] vitamin 1-03 tablet by [facility] of w/FA tablet 00:00: mouth [place] 00 daily. Medical Branch docusate 2018-08 Yes [id number] 240mg Take 1 [facility] nivers calcium 240 1-03 capsule by it y of mg capsule 00:00: mouth once [place] 00 daily as Medical needed for Branch Constipati on. ferrous 2018-08 Yes [id number] 325mg Take 1 Un alex sulfate 325 1-03 tablet by [facility]y of mg (65 mg 00:00: mouth 2 [place] iron) 00 (two) Medical tablet times Branch daily. ibuprofen 2018-08 Yes [id number] 600mg Take 1 [facility] 600 mg 1-03 tablet by [facility] of tablet 00:00: mouth [place] 00 every 6 Medical (six) Branch hours as needed for Pain (scale 1-3) or Pain (scale 4-6) (Pain). Take with food or milk. 2018-08 Yes [id number] 1{tbl} Take 1 [facility] vitamin 1-03 tablet by [facility] of w/FA tablet 00:00: mouth [place] 00 daily. Medical Branch docusate 2018-08 Yes [id number] 240mg Take 1 [facility] nivers calcium 240 1-03 capsule by [facility] of mg capsule 00:00: mouth once [place] 00 daily as Medical needed for Branch Constipati on. ferrous 2018-08 Yes [id number] 325mg Take 1 Un alex sulfate 325 1-03 tablet by [facility] of mg (65 mg 00:00: mouth 2 [place] iron) 00 (two) Medical tablet times Branch daily. ibuprofen 2018-08 Yes [id number] 600mg Take 1 [facility] 600 mg 1-03 tablet by [facility] of tablet 00:00: mouth [place] 00 every 6 Medical (six) Branch hours as needed for Pain (scale 1-3) or Pain (scale 4-6) (Pain). Take with food or milk. 2018-08 Yes [id number] 1{tbl} Take 1 [facility] vitamin 1-03 tablet by [facility] of w/FA tablet 00:00: mouth [place] 00 daily. [facility] docusate 2018-08 Yes [id number] 240mg Take 1 [facility] nivers calcium 240 1-03 capsule by it y of mg capsule 00:00: mouth once [place] 00 daily as Medical needed for Branch Constipati on. ferrous 2018-08 Yes [id number] 325mg Take 1 Un alex sulfate 325 1-03 tablet by [facility] of mg (65 mg 00:00: mouth 2 [place] iron) 00 (two) Medical tablet times Branch daily. ibuprofen 2018-08 Yes [id number] 600mg Take 1 [facility] 600 mg 1-03 tablet by [facility] of tablet 00:00: mouth [place] 00 every 6 Medical (six) Branch hours as needed for Pain (scale 1-3) or Pain (scale 4-6) (Pain). Take with food or milk. 2018-08 Yes [id number] 1{tbl} Take 1 [facility] vitamin 1-03 tablet by [facility] of w/FA tablet 00:00: mouth [place] 00 daily. [facility] docusate 2018-08 Yes [id number] 240mg Take 1 [facility] nivers calcium 240 1-03 capsule by [facility] of mg capsule 00:00: mouth once [place] 00 daily as Medical needed for Branch Constipati on. ferrous 2018-08 Yes [id number] 325mg Take 1 Un alex sulfate 325 1-03 tablet by [facility] of mg (65 mg 00:00: mouth 2 [place] iron) 00 (two) Medical tablet times Branch daily. ibuprofen 2018-08 Yes [id number] 600mg Take 1 [facility] 600 mg 1-03 tablet by [facility] of tablet 00:00: mouth [place] 00 every 6 Medical (six) Branch hours as needed for Pain (scale 1-3) or Pain (scale 4-6) (Pain). Take with food or milk. 2018-08 Yes [id number] 1{tbl} Take 1 [facility] vitamin 1-03 tablet by [facility] of w/FA tablet 00:00: mouth [place] 00 daily. [facility] docusate 2018-08 Yes [id number] 240mg Take 1 [facility] nivers calcium 240 1-03 capsule by it y of mg capsule 00:00: mouth once [place] 00 daily as Medical needed for Branch Constipati on. ferrous 2018-08 Yes [id number] 325mg Take 1 Un alex sulfate 325 1-03 tablet by [facility] of mg (65 mg 00:00: mouth 2 [place] iron) 00 (two) Medical tablet times Branch daily. ibuprofen 2018-08 Yes [id number] 600mg Take 1 [facility] 600 mg 1-03 tablet by [facility] of tablet 00:00: mouth [place] 00 every 6 Medical (six) Branch hours as needed for Pain (scale 1-3) or Pain (scale 4-6) (Pain). Take with food or milk. 2018-08 Yes [id number] 1{tbl} Take 1 [facility] vitamin 1-03 tablet by [facility] of w/FA tablet 00:00: mouth [place] 00 daily. [facility] Branch docusate 2018-08 Yes [id number] 240mg Take 1 [facility] nivers calcium 240 1-03 capsule by it y of mg capsule 00:00: mouth once [place] 00 daily as Medical needed for Branch Constipati on. ferrous 2018-08 Yes [id number] 325mg Take 1 Un alex sulfate 325 1-03 tablet by [facility] of mg (65 mg 00:00: mouth 2 [place] iron) 00 (two) Medical tablet times Branch daily. ibuprofen 2018-08 Yes [id number] 600mg Take 1 [facility] 600 mg 1-03 tablet by [facility] of tablet 00:00: mouth [place] 00 every 6 Medical (six) Branch hours as needed for Pain (scale 1-3) or Pain (scale 4-6) (Pain). Take with food or milk. 2018-08 Yes [id number] 1{tbl} Take 1 [facility] vitamin 1-03 tablet by [facility] of w/FA tablet 00:00: mouth [place] 00 daily. Medical Branch docusate 2018-08 Yes [id number] 240mg Take 1 [facility] nivers calcium 240 1-03 capsule by it y of mg capsule 00:00: mouth once [place] 00 daily as Medical needed for Branch Constipati on. ferrous 2018-08 Yes [id number] 325mg Take 1 Un alex sulfate 325 1-03 tablet by [facility]y of mg (65 mg 00:00: mouth 2 [place] iron) 00 (two) Medical tablet times Branch daily. ibuprofen 2018-08 Yes [id number] 600mg Take 1 [facility] 600 mg 1-03 tablet by [facility] of tablet 00:00: mouth [place] 00 every 6 Medical (six) Branch hours as needed for Pain (scale 1-3) or Pain (scale 4-6) (Pain). Take with food or milk. 2018-08 Yes [id number] 1{tbl} Take 1 [facility] vitamin 1-03 tablet by [facility] of w/FA tablet 00:00: mouth [place] 00 daily. Medical Branch docusate 2018-08 Yes [id number] 240mg Take 1 [facility] nivers calcium 240 1-03 capsule by it y of mg capsule 00:00: mouth once [place] 00 daily as Medical needed for Branch Constipati on. ferrous 2018-08 Yes [id number] 325mg Take 1 Un alex sulfate 325 1-03 tablet by ity of mg (65 mg 00:00: mouth 2 [place] iron) 00 (two) Medical tablet times Branch daily. ibuprofen 2018-08 Yes [id number] 600mg Take 1 [facility] 600 mg 1-03 tablet by [facility]y of tablet 00:00: mouth [place] 00 every 6 Medical (six) Branch hours as needed for Pain (scale 1-3) or Pain (scale 4-6) (Pain). Take with food or milk. 2018-08 Yes [id number] 1{tbl} Take 1 [facility] vitamin 1-03 tablet by [facility]y of w/FA tablet 00:00: mouth [place] 00 daily. Medical Branch docusate 2018-08 Yes [id number] 240mg Take 1 [facility] nivers calcium 240 1-03 capsule by it y of mg capsule 00:00: mouth once [place] 00 daily as Medical needed for Branch Constipati on. ferrous 2018-08 Yes [id number] 325mg Take 1 Un alex sulfate 325 1-03 tablet by ity of mg (65 mg 00:00: mouth 2 [place] iron) 00 (two) Medical tablet times Branch daily. ibuprofen 2018-08 Yes [id number] 600mg Take 1 [facility] 600 mg 1-03 tablet by ity of tablet 00:00: mouth [place] 00 every 6 Medical (six) Branch hours as needed for Pain (scale 1-3) or Pain (scale 4-6) (Pain). Take with food or milk. 2018-08 Yes [id number] 1{tbl} Take 1 [facility] vitamin [facility]-03 tablet by [facility] w/FA tablet 00:00: mouth [place] 00 daily. [facility] docusate 2018-08 Yes [id number] 240mg Take 1 [facility] calcium 240 1-03 capsule by [facility] y of mg capsule 00:00: mouth once [place] 00 daily as Medical needed for Branch Constipati on. ferrous 2018-08 Yes [id number] 325mg Take 1 Un alex sulfate 325 1-03 tablet by [facility] of mg (65 mg 00:00: mouth 2 [place] iron) 00 (two) Medical tablet times Branch daily. ibuprofen 2018-08 Yes [id number] 600mg Take 1 [facility] 600 mg 1-03 tablet by [facility] of tablet 00:00: mouth [place] 00 every 6 Medical (six) Branch hours as needed for Pain (scale 1-3) or Pain (scale 4-6) (Pain). Take with food or milk. 2018-08 Yes [id number] 1{tbl} Take 1 [facility] vitamin 1-03 tablet by [facility] w/FA tablet 00:00: mouth [place] 00 daily. [facility] docusate 2018-08 Yes [id number] 240mg Take 1 [facility] n[facility] calcium 240 1-03 capsule by [facility] y of mg capsule 00:00: mouth once [place] 00 daily as Medical needed for Branch Constipati on. ferrous 2018-08 Yes [id number] 325mg Take 1 Un alex sulfate 325 1-03 tablet by [facility] of mg (65 mg 00:00: mouth 2 [place] iron) 00 (two) Medical tablet times Branch daily. ibuprofen 2018-08 Yes [id number] 600mg Take 1 [facility] 600 mg 1-03 tablet by [facility] of tablet 00:00: mouth [place] 00 every 6 Medical (six) Branch hours as needed for Pain (scale 1-3) or Pain (scale 4-6) (Pain). Take with food or milk. 2018-08 Yes [id number] 1{tbl} Take 1 [facility] vitamin 1-03 tablet by [facility] of w/FA tablet 00:00: mouth [place] 00 daily. [facility] docusate 2018-08 Yes [id number] 240mg Take 1 [facility] calcium 240 1-03 capsule by [facility] of mg capsule 00:00: mouth once [place] 00 daily as Medical needed for Branch Constipati on. ferrous 2018-08 Yes [id number] 325mg Take 1 Un alex sulfate 325 1-03 tablet by [facility] of mg (65 mg 00:00: mouth 2 [place] iron) 00 (two) Medical tablet times Branch daily. ibuprofen 2018-08 Yes [id number] 600mg Take 1 [facility] 600 mg 1-03 tablet by [facility] of tablet 00:00: mouth [place] 00 every 6 Medical (six) Branch hours as needed for Pain (scale 1-3) or Pain (scale 4-6) (Pain). Take with food or milk. 2018-08 Yes [id number] 1{tbl} Take 1 [facility] vitamin 1-03 tablet by [facility] w/FA tablet 00:00: mouth [place] 00 daily. [facility] docusate 2018-08 Yes [id number] 240mg Take 1 [facility] calcium 240 1-03 capsule by [facility] mg capsule 00:00: mouth once [place] 00 daily as Medical needed for Branch Constipati on. ferrous 2018-08 Yes [id number] 325mg Take 1 Un alex sulfate 325 1-03 tablet by [facility] of mg (65 mg 00:00: mouth 2 [place] iron) 00 (two) Medical tablet times Branch daily. ibuprofen 2018-08 Yes [id number] 600mg Take 1 [facility] 600 mg 1-03 tablet by [facility] of tablet 00:00: mouth [place] 00 every 6 Medical (six) Branch hours as needed for Pain (scale 1-3) or Pain (scale 4-6) (Pain). Take with food or milk. 2018-08 Yes [id number] 1{tbl} Take 1 [facility] vitamin 1-03 tablet by [facility] w/FA tablet 00:00: mouth [place] 00 daily. [facility] docusate 2018-08 Yes [id number] 240mg Take 1 [facility] calcium 240 1-03 capsule by [facility] of mg capsule 00:00: mouth once [place] 00 daily as Medical needed for Branch Constipati on. ferrous 2018-08 Yes [id number] 325mg Take 1 Un alex sulfate 325 1-03 tablet by [facility] of mg (65 mg 00:00: mouth 2 [place] iron) 00 (two) Medical tablet times Branch daily. ibuprofen 2018-08 Yes [id number] 600mg Take 1 [facility] 600 mg 1-03 tablet by [facility] of tablet 00:00: mouth [place] 00 every 6 Medical (six) Branch hours as needed for Pain (scale 1-3) or Pain (scale 4-6) (Pain). Take with food or milk. 2018-08 Yes [id number] 1{tbl} Take 1 [facility] vitamin 1-03 tablet by [facility] of w/FA tablet 00:00: mouth [place] 00 daily. [facility] docusate 2018-08 Yes [id number] 240mg Take 1 [facility] calcium 240 1-03 capsule by [facility] y of mg capsule 00:00: mouth once [place] 00 daily as Medical needed for Branch Constipati on. ferrous 2018-08 Yes [id number] 325mg Take 1 [facility] alex sulfate 325 1-03 tablet by [facility] of mg (65 mg 00:00: mouth 2 [place] iron) 00 (two) Medical tablet times Branch daily. ibuprofen 2018-08 Yes [id number] 600mg Take 1 [facility] 600 mg 1-03 tablet by [facility] of tablet 00:00: mouth [place] 00 every 6 Medical (six) Branch hours as needed for Pain (scale 1-3) or Pain (scale 4-6) (Pain). Take with food or milk. 2018-08 Yes [id number] 1{tbl} Take 1 [facility] vitamin 1-03 tablet by [facility] of w/FA tablet 00:00: mouth [place] 00 daily. [facility] docusate 2018-08 Yes [id number] 240mg Take 1 [facility] calcium 240 1-03 capsule by [facility] of mg capsule 00:00: mouth once [place] 00 daily as Medical needed for Branch Constipati on. ferrous 2018-08 Yes [id number] 325mg Take 1 [facility] alex sulfate 325 1-03 tablet by [facility] of mg (65 mg 00:00: mouth 2 [place] iron) 00 (two) Medical tablet times Branch daily. ibuprofen 2018-08 Yes [id number] 600mg Take 1 [facility] 600 mg 1-03 tablet by [facility] of tablet 00:00: mouth [place] 00 every 6 Medical (six) Branch hours as needed for Pain (scale 1-3) or Pain (scale 4-6) (Pain). Take with food or milk. 2018-08 Yes [id number] 1{tbl} Take 1 [facility] vitamin 1-03 tablet by [facility] w/FA tablet 00:00: mouth [place] 00 daily. [facility] docusate 2018-08 Yes [id number] 240mg Take 1 [facility] calcium 240 1-03 capsule by [facility] of mg capsule 00:00: mouth once [place] 00 daily as Medical needed for Branch Constipati on. ferrous 2018- Yes [id number] 325mg Take 1 [facility] alex sulfate 325 1-03 tablet by [facility] of mg (65 mg 00:00: mouth 2 [place] iron) 00 (two) Medical tablet times Branch daily. ibuprofen 2018-08 Yes [id number] 600mg Take 1 [facility] 600 mg 1-03 tablet by [facility] of tablet 00:00: mouth [place] 00 every 6 Medical (six) Branch hours as needed for Pain (scale 1-3) or Pain (scale 4-6) (Pain). Take with food or milk. 2018-08 Yes [id number] 1{tbl} Take 1 [facility] vitamin 1-03 tablet by [facility] of w/FA tablet 00:00: mouth [place] 00 daily. [facility] docusate 2018-08 Yes [id number] 240mg Take 1 [facility] calcium 240 1-03 capsule by [facility] of mg capsule 00:00: mouth once [place] 00 daily as Medical needed for Branch Constipati on. ferrous 2018-08 Yes [id number] 325mg Take 1 [facility] alex sulfate 325 1-03 tablet by [facility]y of mg (65 mg 00:00: mouth 2 [place] iron) 00 (two) Medical tablet times Branch daily. ibuprofen 2018-08 Yes [id number] 600mg Take 1 [facility] 600 mg 1-03 tablet by [facility] of tablet 00:00: mouth [place] 00 every 6 Medical (six) Branch hours as needed for Pain (scale 1-3) or Pain (scale 4-6) (Pain). Take with food or milk. 2018-08 Yes [id number] 1{tbl} Take 1 [facility] vitamin 1-03 tablet by [facility] of w/FA tablet 00:00: mouth [place] 00 daily. [facility] docusate 2018-08 Yes [id number] 240mg Take 1 [facility] calcium 240 1-03 capsule by [facility] of mg capsule 00:00: mouth once [place] 00 daily as Medical needed for Branch Constipati on. ferrous 2018-08 Yes [id number] 325mg Take 1 Un alex sulfate 325 1-03 tablet by [facility] of mg (65 mg 00:00: mouth 2 [place] iron) 00 (two) Medical tablet times Branch daily. ibuprofen 2018-08 Yes [id number] 600mg Take 1 [facility] 600 mg 1-03 tablet by [facility] of tablet 00:00: mouth [place] 00 every 6 Medical (six) Branch hours as needed for Pain (scale 1-3) or Pain (scale 4-6) (Pain). Take with food or milk. 2018-08 Yes [id number] 1{tbl} Take 1 [facility] vitamin 1-03 tablet by [facility] of w/FA tablet 00:00: mouth [place] 00 daily. [facility] docusate 2018-08 Yes [id number] 240mg Take 1 [facility] calcium 240 1-03 capsule by [facility] of mg capsule 00:00: mouth once [place] 00 daily as Medical needed for Branch Constipati on. ferrous 2018-08 Yes [id number] 325mg Take 1 [facility] alex sulfate 325 1-03 tablet by [facility] of mg (65 mg 00:00: mouth 2 [place] iron) 00 (two) Medical tablet times Branch daily. ibuprofen 2018-08 Yes [id number] 600mg Take 1 [facility] 600 mg 1-03 tablet by [facility] of tablet 00:00: mouth [place] 00 every 6 Medical (six) Branch hours as needed for Pain (scale 1-3) or Pain (scale 4-6) (Pain). Take with food or milk. 2018-08 Yes [id number] 1{tbl} Take 1 [facility] vitamin 1-03 tablet by [facility] of w/FA tablet 00:00: mouth [place] 00 daily. [facility] docusate 2018-08 Yes [id number] 240mg Take 1 [facility] calcium 240 1-03 capsule by [facility] of mg capsule 00:00: mouth once [place] 00 daily as Medical needed for Branch Constipati on. ferrous 2018-08 Yes [id number] 325mg Take 1 [facility] alex sulfate 325 1-03 tablet by [facility] of mg (65 mg 00:00: mouth 2 [place] iron) 00 (two) Medical tablet times Branch daily. ibuprofen 2018-08 Yes [id number] 600mg Take 1 [facility] 600 mg 1-03 tablet by [facility] of tablet 00:00: mouth [place] 00 every 6 Medical (six) Branch hours as needed for Pain (scale 1-3) or Pain (scale 4-6) (Pain). Take with food or milk. 2018-08 Yes [id number] 1{tbl} Take 1 [facility] vitamin 1-03 tablet by [facility] of w/FA tablet 00:00: mouth [place] 00 daily. [facility] docusate 2018-08 Yes [id number] 240mg Take 1 [facility] n[facility] calcium 240 1-03 capsule by [facility] of mg capsule 00:00: mouth once [place] 00 daily as Medical needed for Branch Constipati on. ferrous 2018-08 Yes [id number] 325mg Take 1 [facility] alex sulfate 325 1-03 tablet by [facility] of mg (65 mg 00:00: mouth 2 [place] iron) 00 (two) Medical tablet times Branch daily. ibuprofen 2018-08 Yes [id number] 600mg Take 1 [facility] 600 mg 1-03 tablet by [facility] of tablet 00:00: mouth [place] 00 every 6 Medical (six) Branch hours as needed for Pain (scale 1-3) or Pain (scale 4-6) (Pain). Take with food or milk. 2018-08 Yes [id number] 1{tbl} Take 1 [facility] vitamin 1-03 tablet by [facility] of w/FA tablet 00:00: mouth [place] 00 daily. [facility] docusate 2018-08 Yes [id number] 240mg Take 1 [facility] n[facility] calcium 240 1-03 capsule by [facility] y of mg capsule 00:00: mouth once [place] 00 daily as Medical needed for Branch Constipati on. ferrous 2018-08 Yes [id number] 325mg Take 1 Un alex sulfate 325 1-03 tablet by [facility] of mg (65 mg 00:00: mouth 2 [place] iron) 00 (two) Medical tablet times Branch daily. ibuprofen 2018-08 Yes [id number] 600mg Take 1 [facility] 600 mg 1-03 tablet by [facility] of tablet 00:00: mouth [place] 00 every 6 Medical (six) Branch hours as needed for Pain (scale 1-3) or Pain (scale 4-6) (Pain). Take with food or milk. 2018-08 Yes [id number] 1{tbl} Take 1 [facility] vitamin 1-03 tablet by [facility] w/FA tablet 00:00: mouth [place] 00 [facility]. [facility] [id number] 240mg Take 1 [facility] nivers calcium 240 1-03 capsule by it y of mg capsule 00:00: mouth once [place] 00 daily as Medical needed for Branch Constipati on. ferrous 2018-08 Yes [id number] 325mg Take 1 Un alex sulfate 325 1-03 tablet by [facility] of mg (65 mg 00:00: mouth 2 [place] iron) 00 (two) Medical tablet times Branch daily. ibuprofen 2018-08 Yes [id number] 600mg Take 1 [facility] 600 mg 1-03 tablet by [facility] of tablet 00:00: mouth [place] 00 every 6 Medical (six) Branch hours as needed for Pain (scale 1-3) or Pain (scale 4-6) (Pain). Take with food or milk. 2018-08 Yes [id number] 1{tbl} Take 1 [facility] vitamin 1-03 tablet by [facility] of w/FA tablet 00:00: mouth [place] 00 daily. [facility] docusate 2018-08 Yes [id number] 240mg Take 1 [facility] n[facility] calcium 240 1-03 capsule by [facility] y of mg capsule 00:00: mouth once [place] 00 daily as Medical needed for Branch Constipati on. ferrous 2018-08 Yes [id number] 325mg Take 1 Un alex sulfate 325 1-03 tablet by [facility]y of mg (65 mg 00:00: mouth 2 [place] iron) 00 (two) Medical tablet times Branch daily. ibuprofen 2018-08 Yes [id number] 600mg Take 1 [facility] 600 mg 1-03 tablet by [facility] of tablet 00:00: mouth [place] 00 every 6 Medical (six) Branch hours as needed for Pain (scale 1-3) or Pain (scale 4-6) (Pain). Take with food or milk. 2018-08 Yes [id number] 1{tbl} Take 1 [facility] vitamin 1-03 tablet by [facility] of w/FA tablet 00:00: mouth [place] 00 daily. [facility] docusate 2018-08 Yes [id number] 240mg Take 1 [facility] n[facility] calcium 240 1-03 capsule by it y of mg capsule 00:00: mouth once [place] 00 daily as Medical needed for Branch Constipati on. ferrous 2018-08 Yes [id number] 325mg Take 1 [facility] alex sulfate 325 1-03 tablet by [facility] of mg (65 mg 00:00: mouth 2 [place] iron) 00 (two) Medical tablet times Branch daily. ibuprofen 2018-08 Yes [id number] 600mg Take 1 [facility] 600 mg 1-03 tablet by [facility] of tablet 00:00: mouth [place] 00 every 6 Medical (six) Branch hours as needed for Pain (scale 1-3) or Pain (scale 4-6) (Pain). Take with food or milk. 2018-08 Yes [id number] 1{tbl} Take 1 [facility] vitamin 1-03 tablet by [facility] of w/FA tablet 00:00: mouth [place] 00 daily. [facility] docusate 2018-08 Yes [id number] 240mg Take 1 [facility] n[facility] calcium 240 1-03 capsule by it y of mg capsule 00:00: mouth once [place] 00 daily as Medical needed for Branch Constipati on. ferrous 2018-08 Yes [id number] 325mg Take 1 Un alex sulfate 325 1-03 tablet by [facility] of mg (65 mg 00:00: mouth 2 [place] iron) 00 (two) Medical tablet times Branch daily. ibuprofen 2018-08 Yes [id number] 600mg Take 1 [facility] 600 mg 1-03 tablet by [facility] of tablet 00:00: mouth [place] 00 every 6 Medical (six) Branch hours as needed for Pain (scale 1-3) or Pain (scale 4-6) (Pain). Take with food or milk. 2018-08 Yes [id number] 1{tbl} Take 1 [facility] vitamin 1-03 tablet by [facility] of w/FA tablet 00:00: mouth [place] 00 daily. [facility] docusate 2018-08 Yes [id number] 240mg Take 1 [facility] n[facility] calcium 240 1-03 capsule by it y of mg capsule 00:00: mouth once [place] 00 daily as Medical needed for Branch Constipati on. ferrous 2018-08 Yes [id number] 325mg Take 1 [facility] alex sulfate 325 1-03 tablet by [facility] of mg (65 mg 00:00: mouth 2 [place] iron) 00 (two) Medical tablet times Branch daily. ibuprofen 2018-08 Yes [id number] 600mg Take 1 [facility] 600 mg 1-03 tablet by [facility] of tablet 00:00: mouth [place] 00 every 6 Medical (six) Branch hours as needed for Pain (scale 1-3) or Pain (scale 4-6) (Pain). Take with food or milk. 2018-08 Yes [id number] 1{tbl} Take 1 [facility] vitamin 1-03 tablet by [facility] of w/FA tablet 00:00: mouth [place] 00 daily. [facility] docusate 2018-08 Yes [id number] 240mg Take 1 [facility] calcium 240 1-03 capsule by [facility] of mg capsule 00:00: mouth once [place] 00 daily as Medical needed for Branch Constipati on. ferrous 2018-08 Yes [id number] 325mg Take 1 [facility] alex sulfate 325 1-03 tablet by [facility] of mg (65 mg 00:00: mouth 2 [place] iron) 00 (two) Medical tablet times Branch daily. ibuprofen 2018-08 Yes [id number] 600mg Take 1 [facility] 600 mg 1-03 tablet by [facility] of tablet 00:00: mouth [place] 00 every 6 Medical (six) Branch hours as needed for Pain (scale 1-3) or Pain (scale 4-6) (Pain). Take with food or milk. 2018-08 Yes [id number] 1{tbl} Take 1 [facility] vitamin 1-03 tablet by [facility] of w/FA tablet 00:00: mouth [place] 00 daily. [facility] docusate 2018-08 Yes [id number] 240mg Take 1 [facility] n[facility] calcium 240 1-03 capsule by it y of mg capsule 00:00: mouth once [place] 00 daily as Medical needed for Branch Constipati on. ferrous 2018-08 Yes [id number] 325mg Take 1 Un alex sulfate 325 1-03 tablet by [facility]y of mg (65 mg 00:00: mouth 2 [place] iron) 00 (two) Medical tablet times Branch daily. ibuprofen 2018-08 Yes [id number] 600mg Take 1 [facility] 600 mg 1-03 tablet by [facility] of tablet 00:00: mouth [place] 00 every 6 Medical (six) Branch hours as needed for Pain (scale 1-3) or Pain (scale 4-6) (Pain). Take with food or milk. 2018-08 Yes [id number] 1{tbl} Take 1 [facility] vitamin 1-03 tablet by [facility] of w/FA tablet 00:00: mouth [place] 00 daily. [facility] docusate 2018-08 Yes [id number] 240mg Take 1 [facility] n[facility] calcium 240 1-03 capsule by it y of mg capsule 00:00: mouth once [place] 00 daily as Medical needed for Branch Constipati on. ferrous 2018-08 Yes [id number] 325mg Take 1 Un alex sulfate 325 1-03 tablet by ity of mg (65 mg 00:00: mouth 2 [place] iron) 00 (two) Medical tablet times Branch daily. ibuprofen 2018-08 Yes [id number] 600mg Take 1 [facility] 600 mg 1-03 tablet by [facility] of tablet 00:00: mouth [place] 00 every 6 Medical (six) Branch hours as needed for Pain (scale 1-3) or Pain (scale 4-6) (Pain). Take with food or milk. 2018-08 Yes [id number] 1{tbl} Take 1 [facility] vitamin 1-03 tablet by [facility] of w/FA tablet 00:00: mouth [place] 00 daily. [facility] docusate 2018-08 Yes [id number] 240mg Take 1 [facility] nivers calcium 240 1-03 capsule by it y of mg capsule 00:00: mouth once [place] 00 daily as Medical needed for Branch Constipati on. ferrous 2018-08 Yes [id number] 325mg Take 1 Un alex sulfate 325 1-03 tablet by ity of mg (65 mg 00:00: mouth 2 [place] iron) 00 (two) Medical tablet times Branch daily. ibuprofen 2018-08 Yes [id number] 600mg Take 1 [facility] 600 mg 1-03 tablet by [facility] of tablet 00:00: mouth [place] 00 every 6 Medical (six) Branch hours as needed for Pain (scale 1-3) or Pain (scale 4-6) (Pain). Take with food or milk. 2018-08 Yes [id number] 1{tbl} Take 1 [facility] vitamin 1-03 tablet by [facility] of w/FA tablet 00:00: mouth [place] 00 daily. [facility] docusate 2018-08 Yes [id number] 240mg Take 1 [facility] n[facility] calcium 240 1-03 capsule by it y of mg capsule 00:00: mouth once [place] 00 daily as Medical needed for Branch Constipati on. ferrous 2018-08 Yes [id number] 325mg Take 1 Un alex sulfate 325 1-03 tablet by [facility]y of mg (65 mg 00:00: mouth 2 [place] iron) 00 (two) Medical tablet times Branch daily. ibuprofen 2018-08 Yes [id number] 600mg Take 1 [facility] 600 mg 1-03 tablet by [facility] of tablet 00:00: mouth [place] 00 every 6 Medical (six) Branch hours as needed for Pain (scale 1-3) or Pain (scale 4-6) (Pain). Take with food or milk. 2018-08 Yes [id number] 1{tbl} Take 1 [facility] vitamin 1-03 tablet by [facility] of w/FA tablet 00:00: mouth [place] 00 daily. [facility] docusate 2018-08 Yes [id number] 240mg Take 1 [facility] n[facility] calcium 240 1-03 capsule by it y of mg capsule 00:00: mouth once [place] 00 daily as Medical needed for Branch Constipati on. ferrous 2018-08 Yes [id number] 325mg Take 1 Un alex sulfate 325 1-03 tablet by ity of mg (65 mg 00:00: mouth 2 [place] iron) 00 (two) Medical tablet times Branch daily. ibuprofen 2018-08 Yes [id number] 600mg Take 1 [facility] 600 mg 1-03 tablet by [facility] of tablet 00:00: mouth [place] 00 every 6 Medical (six) Branch hours as needed for Pain (scale 1-3) or Pain (scale 4-6) (Pain). Take with food or milk. 2018-08 Yes [id number] 1{tbl} Take 1 [facility] vitamin 1-03 tablet by [facility] of w/FA tablet 00:00: mouth [place] 00 daily. [facility] docusate 2018-08 Yes [id number] 240mg Take 1 [facility] nivers calcium 240 1-03 capsule by it y of mg capsule 00:00: mouth once [place] 00 daily as Medical needed for Branch Constipati on. ferrous 2018-08 Yes [id number] 325mg Take 1 Un alex sulfate 325 1-03 tablet by ity of mg (65 mg 00:00: mouth 2 [place] iron) 00 (two) Medical tablet times Branch daily. ibuprofen 2018-08 Yes [id number] 600mg Take 1 [facility] 600 mg 1-03 tablet by it[facility] of tablet 00:00: mouth [place] 00 every 6 Medical (six) Branch hours as needed for Pain (scale 1-3) or Pain (scale 4-6) (Pain). Take with food or milk. 2018-08 Yes [id number] 1{tbl} Take 1 [facility] vitamin 1-03 tablet by [facility] w/FA tablet 00:00: mouth [place] [facility]. [facility] [id number] 240mg Take 1 [facility] nivers calcium 240 1-03 capsule by it y of mg capsule 00:00: mouth once [place] 00 daily as Medical needed for Branch Constipati on. ferrous 2018-08 Yes [id number] 325mg Take 1 Un alex sulfate 325 1-03 tablet by ity of mg (65 mg 00:00: mouth 2 [place] iron) 00 (two) Medical tablet times Branch daily. ibuprofen 2018-08 Yes [id number] 600mg Take 1 [facility] 600 mg 1-03 tablet by it[facility] of tablet 00:00: mouth [place] 00 every 6 Medical (six) Branch hours as needed for Pain (scale 1-3) or Pain (scale 4-6) (Pain). Take with food or milk. 2018-08 Yes [id number] 1{tbl} Take 1 [facility] vitamin 1-03 tablet by [facility] of w/FA tablet 00:00: mouth [place] 00 daily. [facility] [id number] 240mg Take 1 [facility] nivers calcium 240 1-03 capsule by it y of mg capsule 00:00: mouth once [place] 00 daily as Medical needed for Branch Constipati on. ferrous 2018-08 Yes [id number] 325mg Take 1 Un alex sulfate 325 1-03 tablet by ity of mg (65 mg 00:00: mouth 2 [place] iron) 00 (two) Medical tablet times Branch daily. ibuprofen 2018-08 Yes [id number] 600mg Take 1 [facility] 600 mg 1-03 tablet by it[facility] of tablet 00:00: mouth [place] 00 every 6 Medical (six) Branch hours as needed for Pain (scale 1-3) or Pain (scale 4-6) (Pain). Take with food or milk. 2018-08 Yes [id number] 1{tbl} Take 1 [facility] vitamin 1-03 tablet by [facility] of w/FA tablet 00:00: mouth [place] 00 daily. [facility] docusate 2018-08 Yes [id number] 240mg Take 1 [facility] nivers calcium 240 1-03 capsule by it y of mg capsule 00:00: mouth once [place] 00 daily as Medical needed for Branch Constipati on. ferrous 2018-08 Yes [id number] 325mg Take 1 Un alex sulfate 325 1-03 tablet by ity of mg (65 mg 00:00: mouth 2 [place] iron) 00 (two) Medical tablet times Branch daily. ibuprofen 2018-08 Yes [id number] 600mg Take 1 [facility] 600 mg 1-03 tablet by it[facility] of tablet 00:00: mouth [place] 00 every 6 Medical (six) Branch hours as needed for Pain (scale 1-3) or Pain (scale 4-6) (Pain). Take with food or milk. 2018-08 Yes [id number] 1{tbl} Take 1 [facility] vitamin 1-03 tablet by [facility] of w/FA tablet 00:00: mouth [place] 00 daily. [facility] docusate 2018-08 Yes [id number] 240mg Take 1 [facility] nivers calcium 240 1-03 capsule by it y of mg capsule 00:00: mouth once [place] 00 daily as Medical needed for Branch Constipati on. ferrous 2018-08 Yes [id number] 325mg Take 1 Un alex sulfate 325 1-03 tablet by ity of mg (65 mg 00:00: mouth 2 [place] iron) 00 (two) Medical tablet times Branch daily. ibuprofen 2018-08 Yes [id number] 600mg Take 1 [facility] 600 mg 1-03 tablet by it[facility] of tablet 00:00: mouth [place] 00 every 6 Medical (six) Branch hours as needed for Pain (scale 1-3) or Pain (scale 4-6) (Pain). Take with food or milk. 2018-08 Yes [id number] 1{tbl} Take 1 [facility] vitamin 1-03 tablet by [facility] of w/FA tablet 00:00: mouth [place] 00 daily. Medical [facility] docusate 2018-08 Yes [id number] 240mg Take 1 [facility] nivers calcium 240 1-03 capsule by it y of mg capsule 00:00: mouth once [place] 00 daily as Medical needed for Branch Constipati on. ferrous 2018-08 Yes [id number] 325mg Take 1 Un alex sulfate 325 1-03 tablet by ity of mg (65 mg 00:00: mouth 2 [place] iron) 00 (two) Medical tablet times Branch daily. ibuprofen 2018-08 Yes [id number] 600mg Take 1 [facility] 600 mg 1-03 tablet by [facility] of tablet 00:00: mouth [place] 00 every 6 Medical (six) Branch hours as needed for Pain (scale 1-3) or Pain (scale 4-6) (Pain). Take with food or milk. 2018-08 Yes [id number] 1{tbl} Take 1 [facility] vitamin 1-03 tablet by [facility] of w/FA tablet 00:00: mouth [place] 00 daily. Medical Branch docusate 2018-08 Yes [id number] 240mg Take 1 [facility] nivers calcium 240 1-03 capsule by it y of mg capsule 00:00: mouth once [place] 00 daily as Medical needed for Branch Constipati on. ferrous 2018-08 Yes [id number] 325mg Take 1 Un alex sulfate 325 1-03 tablet by ity of mg (65 mg 00:00: mouth 2 [place] iron) 00 (two) Medical tablet times Branch daily. ibuprofen 2018-08 Yes [id number] 600mg Take 1 [facility] 600 mg 1-03 tablet by [facility] of tablet 00:00: mouth [place] 00 every 6 Medical (six) Branch hours as needed for Pain (scale 1-3) or Pain (scale 4-6) (Pain). Take with food or milk. 2018-08 Yes [id number] 1{tbl} Take 1 [facility] vitamin 1-03 tablet by [facility] of w/FA tablet 00:00: mouth [place] 00 daily. Medical Branch docusate 2018-08 Yes [id number] 240mg Take 1 [facility] nivers calcium 240 1-03 capsule by it y of mg capsule 00:00: mouth once [place] 00 daily as Medical needed for Branch Constipati on. ferrous 2018-08 Yes [id number] 325mg Take 1 Un alex sulfate 325 1-03 tablet by ity of mg (65 mg 00:00: mouth 2 [place] iron) 00 (two) Medical tablet times Branch daily. ibuprofen 2018-08 Yes [id number] 600mg Take 1 [facility] 600 mg 1-03 tablet by [facility] of tablet 00:00: mouth [place] 00 every 6 Medical (six) Branch hours as needed for Pain (scale 1-3) or Pain (scale 4-6) (Pain). Take with food or milk. 2018-08 Yes [id number] 1{tbl} Take 1 [facility] vitamin 1-03 tablet by [facility]y of w/FA tablet 00:00: mouth [place] 00 daily. [facility] docusate 2018-08 Yes [id number] 240mg Take 1 [facility] nivers calcium 240 1-03 capsule by it y of mg capsule 00:00: mouth once [place] 00 daily as Medical needed for Branch Constipati on. ferrous 2018-08 Yes [id number] 325mg Take 1 Un alex sulfate 325 1-03 tablet by ity of mg (65 mg 00:00: mouth 2 [place] iron) 00 (two) Medical tablet times Branch daily. ibuprofen 2018-08 Yes [id number] 600mg Take 1 [facility] 600 mg 1-03 tablet by [facility] of tablet 00:00: mouth [place] 00 every 6 Medical (six) Branch hours as needed for Pain (scale 1-3) or Pain (scale 4-6) (Pain). Take with food or milk. 2018-08 Yes [id number] 1{tbl} Take 1 [facility] vitamin 1-03 tablet by [facility]y of w/FA tablet 00:00: mouth [place] 00 daily. Medical Branch docusate 2018-08 Yes [id number] 240mg Take 1 U nivers calcium 240 1-03 capsule by it y of mg capsule 00:00: mouth once [place] 00 daily as Medical needed for Branch Constipati on. ferrous 2018-08 Yes [id number] 325mg Take 1 Un alex sulfate 325 1-03 tablet by ity of mg (65 mg 00:00: mouth 2 [place] iron) 00 (two) Medical tablet times Branch daily. ibuprofen 2018-08 Yes [id number] 600mg Take 1 [facility] 600 mg 1-03 tablet by ity of tablet 00:00: mouth [place] 00 every 6 Medical (six) Branch hours as needed for Pain (scale 1-3) or Pain (scale 4-6) (Pain). Take with food or milk. 2018-08 Yes [id number] 1{tbl} Take 1 [facility] vitamin 1-03 tablet by ity of w/FA tablet 00:00: mouth [place] 00 daily. Medical Branch docusate 2018-08 Yes [id number] 240mg Take 1 U nivers calcium 240 1-03 capsule by it y of mg capsule 00:00: mouth once [place] 00 daily as Medical needed for Branch Constipati on. ferrous 2018-08 Yes [id number] 325mg Take 1 Un alex sulfate 325 1-03 tablet by ity of mg (65 mg 00:00: mouth 2 [place] iron) 00 (two) Medical tablet times Branch daily. ibuprofen 2018-08 Yes [id number] 600mg Take 1 [facility] 600 mg 1-03 tablet by ity of tablet 00:00: mouth [place] 00 every 6 Medical (six) Branch hours as needed for Pain (scale 1-3) or Pain (scale 4-6) (Pain). Take with food or milk. ferrous 2018-08 Yes [id number] 325mg Take 1 Un alex sulfate 325 1-03 tablet by ity of mg (65 mg 00:00: mouth 2 [place] iron) 00 (two) Medical tablet times Branch daily. ferrous 2018-08 Yes [id number] 325mg Take 1 Un alex sulfate 325 1-03 tablet by ity of mg (65 mg 00:00: mouth 2 [place] iron) 00 (two) Medical tablet times Branch daily. ferrous 2018-08 Yes [id number] 325mg Take 1 Un alex sulfate 325 1-03 tablet by ity of mg (65 mg 00:00: mouth 2 [place] iron) 00 (two) Medical tablet times Branch daily. ferrous 2018-08 Yes [id number] 325mg Take 1 Un alex sulfate 325 1-03 tablet by ity of mg (65 mg 00:00: mouth 2 [place] iron) 00 (two) Medical tablet times Branch daily. 2018-08- No [id number] 1{tbl} Take 1 [facility] vitamin 1-03 08-18 tablet by ity of w/FA tablet 00:00: 00:[place] mouth [place] 00 :00 daily. [facility] Branch docusate 2018-08- No [id number] 240mg Take 1 [facility] calcium 240 08-10 capsule by i ty of mg capsule 00:00: 00:00 mouth once [place] 00 :00 daily as Medical needed for Branch Constipati on. ibuprofen 2018-08- No [id number] 600mg Take 1 [facility] 600 mg 08-10 tablet by ity of tablet 00:00: 00:00 mouth [place] 00 :00 every 6 Medical (six) Branch hours as needed for Pain (scale 1-3) or Pain (scale 4-6) (Pain). Take with food or milk. fluconazole 2019- No [id number] 150mg Take 1 [facility] (DIFLUCAN) 04-17 tablet by ity of 150 mg 00:00: 04:59 mouth [place] tablet 00 :00 now for 1 Medical dose. Branch fluconazole 2018- No [id number] 150mg Take 1 [facility] (DIFLUCAN) 04-17 tablet by ity of 150 mg 00:00: 04:59 mouth [place] tablet 00 :00 now for 1 Medical dose. Branch fluconazole 2019- No [id number] 150mg Take 1 [facility] (DIFLUCAN) 04-17 tablet by ity of 150 mg 00:00: 04:59 mouth [place] tablet 00 :00 now for 1 Medical dose. Branch rho(D) 2019- No [id number] 300ug Unive rs immune 03-29 ity of globulin 19:30: 19:44 [place] (RHOGAM) 00 :00 Medical syringe 300 Branch mcg rho(D) 2019- No [id number] 300ug 300 mcg, U nivers immune 03-29 Intramuscu ity of globulin 19:30: 19:44 [place], [place], [place] (RHOGAM) 00 :00 1 dose, Medical syringe 300 [place] Branch mcg 03/29/19 at 1430, Routine fluconazole 2019- No [id number] 150mg Take 1 [facility] (DIFLUCAN) 03-20 [id number] tablet by ity of 150 mg 00:00: 04:59 mouth [place] tablet 00 :00 now for 1 Medical dose. Branch HYDROXYprog 2019-0 Yes 250mg Unive rs est(PF)(pre 8-06 ity of g presv) 15:51: [place] ([facility]) 32 Medical 250 mg/mL Branch (1 mL) injection 250 mg HYDROXYprog 2019-0 Yes 250mg Unive rs est(PF)(pre 8-06 ity of g presv) 15:51: [place] ([facility]) 32 Medical 250 mg/mL Branch (1 mL) injection 250 mg HYDROXYprog 2019-0 Yes 250mg 250 mg, Un alex est(PF)(pre 8-06 Intramuscu it y of g presv) 15:51: ana, [place] ([facility]) 32 QWEEKLY, Medical 250 mg/mL First dose Bran ch (1 mL) on Tue injection 03/13/19 at 250 mg 1100, Until Discontinu ed, Routine HYDROXYprog 2019-0 Yes 250mg Unive rs est(PF)(pre 8-06 ity of g presv) 15:51: [place] ([facility]) 32 Medical 250 mg/mL Branch (1 mL) injection 250 mg HYDROXYprog 2019-0 Yes 250mg Unive rs est(PF)(pre 8-06 ity of g presv) 15:51: [place] ([facility]) 32 Medical 250 mg/mL Branch (1 mL) injection 250 mg HYDROXYprog 2019-0 Yes 250mg Unive rs est(PF)(pre 8-06 ity of g presv) 15:51: [place] ([facility]) 32 Medical 250 mg/mL Branch (1 mL) injection 250 mg HYDROXYprog 2019-0 Yes 250mg Unive rs est(PF)(pre 8-06 ity of g presv) 15:51: [place] ([facility]) 32 Medical 250 mg/mL Branch (1 mL) injection 250 mg HYDROXYprog 2019-0 Yes 250mg Unive rs est(PF)(pre 8-06 ity of g presv) 15:51: [place] ([facility]) 32 Medical 250 mg/mL Branch (1 mL) injection 250 mg HYDROXYprog 2019-0 Yes 250mg Unive rs est(PF)(pre 8-06 ity of g presv) 15:51: [place] ([facility]) 32 Medical 250 mg/mL Branch (1 mL) injection 250 mg HYDROXYprog 2019-0 Yes 250mg Unive rs est(PF)(pre 8-06 ity of g presv) 15:51: [place] [address] Medical 250 mg/mL Branch (1 mL) injection 250 mg HYDROXYprog 2019-0 Yes 250mg Unive rs est(PF)(pre 8- ity of g presv) 15:51: [facility] 32 Medical 250 mg/mL Branch (1 mL) injection 250 mg HYDROXYprog 2019-0 Yes 250mg Unive rs est(PF)(pre 8- ity of g presv) 15:51: [facility] 32 Medical 250 mg/mL Branch (1 mL) injection 250 mg HYDROXYprog 2019-0 Yes 250mg 250 mg, Un alex est(PF)(pre 8 Intramuscu it y of g presv) 15:51: ana [facility] 32 QWEEKLY, Medical 250 mg/mL First dose Bran ch (1 mL) on Tue injection 03/13/19 at 250 mg 1100, Until Discontinu ed, Routine HYDROXYprog 2019-0 Yes 250mg Unive rs est(PF)(pre 8 ity of g presv) 15:51: [place] [address] Medical 250 mg/mL Branch (1 mL) injection 250 mg HYDROXYprog 2019-0 Yes 250mg 250 mg, Un alex est(PF)(pre - Intramuscu it y of g presv) 15:51: ana [facility] 32 QWEEKLY, Medical 250 mg/mL First dose Bran ch (1 mL) on Tue injection 03/13/19 at 250 mg 1100, Until Discontinu ed, Routine HYDROXYprog 2019-0 Yes 250mg Unive rs est(PF)(pre 8- ity of g presv) 15:51: [place] [address] Medical 250 mg/mL Branch (1 mL) injection 250 mg HYDROXYprog 2019-0 Yes 250mg 250 mg, Un alex est(PF)(pre 8- Intramuscu it y of g presv) 15:51: ana [facility] 32 QWEEKLY, Medical 250 mg/mL First dose Bran ch (1 mL) on Tue injection 03/13/19 at 250 mg 1100, Until Discontinu ed, Routine HYDROXYprog 2019-0 Yes 250mg Unive rs est(PF)(pre 8- ity of g presv) 15:51: [place] [address] Medical 250 mg/mL Branch (1 mL) injection 250 mg HYDROXYprog 2019-0 Yes 250mg 250 mg, Un alex est(PF)(pre 8- Intramuscu it y of g presv) 15:51: ana, [facility]) 32 QWEEKLY, Medical 250 mg/mL First dose Bran ch (1 mL) on Tue injection 03/13/19 at 250 mg 1100, Until Discontinu ed, Routine HYDROXYprog 2019-0 Yes 250mg Unive rs est(PF)(pre 8- ity of g presv) 15:51: [facility] 32 Medical 250 mg/mL Branch (1 mL) injection 250 mg HYDROXYprog 2019-0 Yes 250mg 250 mg, Un alex est(PF)(pre - Intramuscu it y of g presv) 15:51: ana [facility]) 32 QWEEKLY, Medical 250 mg/mL First dose Bran ch (1 mL) on Tue injection 03/13/19 at 250 mg 1100, Until Discontinu ed, Routine HYDROXYprog 2019-0 Yes 250mg Unive rs est(PF)(pre 8- ity of g presv) 15:51: [place] [address] Medical 250 mg/mL Branch (1 mL) injection 250 mg HYDROXYprog 2019-0 Yes 250mg 250 mg, Un alex est(PF)(pre 8- Intramuscu it y of g presv) 15:51: ana [facility]) 32 QWEEKLY, Medical 250 mg/mL First dose Bran ch (1 mL) on Tue injection 03/13/19 at 250 mg 1100, Until Discontinu ed, Routine hydroxyprog 2019-0 Yes 275mg Unive rs esterone(PF 6-11 ity of ) (HANS 14:51: [place] AUTO-INJECT 12 Medical OR) 275 Branch mg/1.1 mL injection 275 mg hydroxyprog 2019-0 Yes 275mg Unive rs esterone(PF 6-11 ity of ) (HANS 14:51: [place] AUTO-INJECT 12 Medical OR) 275 Branch mg/1.1 mL injection 275 mg hydroxyprog 2019-0 Yes 275mg Unive rs esterone(PF 6-11 ity of ) (HANS 14:51: [place] AUTO-INJECT 12 Medical OR) 275 Branch mg/1.1 mL injection 275 mg hydroxyprog 2019-0 Yes 275mg Unive rs esterone(PF 6-11 ity of ) (HANS 14:51: [place] AUTO-INJECT 12 Medical OR) 275 Branch mg/1.1 mL injection 275 mg hydroxyprog 2019-0 Yes 275mg 275 mg, Un alex esterone(PF 6-11 Subcutaneo it y of ) (HANS 14:51: us, [place] AUTO-INJECT QWEEKLY, Medi carlos OR) 275 First dose Branch mg/1.1 mL on Tue injection 01/16/19 at 275 mg 1000, Until Discontinu ed, Routine hydroxyprog 2019-0 Yes 275mg Unive rs esterone(PF 6-11 ity of ) (HANS 14:51: [place] AUTO-INJECT 12 Medical OR) 275 Branch mg/1.1 mL injection 275 mg hydroxyprog 2019-0 Yes 275mg Unive rs esterone(PF 6-11 ity of ) (HANS 14:51: [place] AUTO-INJECT Medical OR) 275 Branch mg/1.1 mL injection 275 mg hydroxyprog 2019-0 Yes 275mg Unive rs esterone(PF 6-11 ity of ) (HANS 14:51: [place] AUTO-INJECT Medical OR) 275 Branch mg/1.1 mL injection 275 mg hydroxyprog 2019-0 Yes 275mg Unive rs esterone(PF 6-11 ity of ) (HANS 14:51: [place] AUTO-INJECT Medical OR) 275 Branch mg/1.1 mL injection 275 mg hydroxyprog 2019-0 Yes 275mg Unive rs esterone(PF 6-11 ity of ) (HANS 14:51: [place] AUTO-INJECT Medical OR) 275 Branch mg/1.1 mL injection 275 mg hydroxyprog 2019-0 Yes 275mg Unive rs esterone(PF 6-11 ity of ) (HANS 14:51: [place] AUTO-INJECT 12 Medical OR) 275 Branch mg/1.1 mL injection 275 mg hydroxyprog 2019-0 Yes 275mg Unive rs esterone(PF 6-11 ity of ) (HANS 14:51: [place] AUTO-INJECT Medical OR) 275 Branch mg/1.1 mL injection 275 mg hydroxyprog 2019-0 Yes 275mg Unive rs esterone(PF 6-11 ity of ) (HANS 14:51: [place] AUTO-INJECT 12 Medical OR) 275 Branch mg/1.1 mL injection 275 mg hydroxyprog 2019-0 Yes 275mg Unive rs esterone(PF 6-11 ity of ) (HANS 14:51: [place] AUTO-INJECT 12 Medical OR) 275 Branch mg/1.1 mL injection 275 mg hydroxyprog 2019-0 Yes 275mg Unive rs esterone(PF 6-11 ity of ) (HANS 14:51: [place] AUTO-INJECT 12 Medical OR) 275 Branch mg/1.1 mL injection 275 mg hydroxyprog 2019-0 Yes 275mg Unive rs esterone(PF 6-11 ity of ) (HANS 14:51: [place] AUTO-INJECT 12 Medical OR) 275 Branch mg/1.1 mL injection 275 mg hydroxyprog 2019-0 Yes 275mg Unive rs esterone(PF 6-11 ity of ) (HANS 14:51: [place] AUTO-INJECT 12 Medical OR) 275 Branch mg/1.1 mL injection 275 mg hydroxyprog 2019-0 Yes 275mg Unive rs esterone(PF 6-11 ity of ) (HANS 14:51: [place] AUTO-INJECT 12 Medical OR) 275 Branch mg/1.1 mL injection 275 mg hydroxyprog 2019-0 Yes 275mg Unive rs esterone(PF 6-11 ity of ) (HANS 14:51: [place] AUTO-INJECT 12 Medical OR) 275 Branch mg/1.1 mL injection 275 mg hydroxyprog 2019-0 Yes 275mg Unive rs esterone(PF 6-11 ity of ) (HANS 14:51: [place] AUTO-INJECT 12 Medical OR) 275 Branch mg/1.1 mL injection 275 mg PNV 67-iron 2019-0 Yes [id number] 1{each} Take 1 [facility] ps-folate 3-15 Each by ity of no.1-dha 00:00: mouth [place] (VITAFOL 00 daily. Medical ULTRA) 29 Branch mg iron- 1 mg-200 mg Cap PNV 67-iron 2019-0 Yes [id number] 1{each} Take 1 [facility] ps-folate 3-15 Each by ity of no.1-dha 00:00: mouth [place] (VITAFOL 00 daily. Medical ULTRA) 29 Branch mg iron- 1 mg-200 mg Cap PNV 67-iron 2019-0 Yes [id number] 1{each} Take 1 [facility] ps-folate 3-15 Each by ity of no.1-dha 00:00: mouth [place] (VITAFOL 00 daily. Medical ULTRA) 29 Branch mg iron- 1 mg-200 mg Cap PNV 67-iron 2019-0 Yes [id number] 1{each} Take 1 [facility] ps-folate 3-15 Each by ity of no.1-dha 00:00: mouth [place] (VITAFOL 00 daily. Medical ULTRA) 29 Branch mg iron- 1 mg-200 mg Cap PNV 67-iron 2019-0 Yes [id number] 1{each} Take 1 [facility] ps-folate 3-15 Each by ity of no.1-dha 00:00: mouth [place] (VITAFOL 00 daily. Medical ULTRA) 29 Branch mg iron- 1 mg-200 mg Cap PNV 67-iron 2019-0 Yes [id number] 1{each} Take 1 [facility] ps-folate 3-15 Each by ity of no.1-dha 00:00: mouth [place] (VITAFOL 00 daily. Medical ULTRA) 29 Branch mg iron- 1 mg-200 mg Cap PNV 67-iron 2019-0 Yes [id number] 1{each} Take 1 [facility] ps-folate 3-15 Each by ity of no.1-dha 00:00: mouth [place] (VITAFOL 00 daily. Medical ULTRA) 29 Branch mg iron- 1 mg-200 mg Cap PNV 67-iron 2019-0 Yes [id number] 1{each} Take 1 [facility] ps-folate 3-15 Each by ity of no.1-dha 00:00: mouth [place] (VITAFOL 00 daily. Medical ULTRA) 29 Branch mg iron- 1 mg-200 mg Cap PNV 67-iron 2019-0 Yes [id number] 1{each} Take 1 [facility] ps-folate 3-15 Each by ity of no.1-dha 00:00: mouth [place] (VITAFOL 00 daily. Medical ULTRA) 29 Branch mg iron- 1 mg-200 mg Cap PNV 67-iron 2019-0 Yes [id number] 1{each} Take 1 [facility] ps-folate 3-15 Each by ity of no.1-dha 00:00: mouth [place] (VITAFOL 00 daily. Medical ULTRA) 29 Branch mg iron- 1 mg-200 mg Cap PNV 67-iron 2019-0 Yes [id number] 1{each} Take 1 [facility] ps-folate 3-15 Each by ity of no.1-dha 00:00: mouth [place] (VITAFOL 00 daily. Medical ULTRA) 29 Branch mg iron- 1 mg-200 mg Cap PNV 67-iron 2019-0 Yes [id number] 1{each} Take 1 [facility] ps-folate 3-15 Each by ity of no.1-dha 00:00: mouth [place] (VITAFOL 00 daily. Medical ULTRA) 29 Branch mg iron- 1 mg-200 mg Cap PNV 67-iron 2019-0 Yes [id number] 1{each} Take 1 [facility] ps-folate 3-15 Each by ity of no.1-dha 00:00: mouth [place] (VITAFOL 00 daily. Medical ULTRA) 29 Branch mg iron- 1 mg-200 mg Cap PNV 67-iron 20190 Yes [id number] 1{each} Take 1 [facility] ps-folate 3-15 Each by ity of no.1-dha 00:00: mouth [place] (VITAFOL 00 daily. Medical ULTRA) 29 Branch mg iron- 1 mg-200 mg Cap PNV 67-iron 2019-0 Yes [id number] 1{each} Take 1 [facility] ps-folate 3-15 Each by ity of no.1-dha 00:00: mouth [place] (VITAFOL 00 daily. Medical ULTRA) 29 Branch mg iron- 1 mg-200 mg Cap PNV 67-iron 2019-0 Yes [id number] 1{each} Take 1 [facility] ps-folate 3-15 Each by ity of no.1-dha 00:00: mouth [place] (VITAFOL 00 daily. Medical ULTRA) 29 Branch mg iron- 1 mg-200 mg Cap PNV 67-iron 2019-0 Yes [id number] 1{each} Take 1 [facility] ps-folate 3-15 Each by ity of no.1-dha 00:00: mouth [place] (VITAFOL 00 daily. Medical ULTRA) 29 Branch mg iron- 1 mg-200 mg Cap PNV 67-iron 2019-0 Yes [id number] 1{each} Take 1 [facility] ps-folate 3-15 Each by ity of no.1-dha 00:00: mouth [place] (VITAFOL 00 daily. Medical ULTRA) 29 Branch mg iron- 1 mg-200 mg Cap PNV 67-iron 2019-0 Yes [id number] 1{each} Take 1 [facility] ps-folate 3-15 Each by ity of no.1-dha 00:00: mouth [place] (VITAFOL 00 daily. Medical ULTRA) 29 Branch mg iron- 1 mg-200 mg Cap PNV 67-iron Yes [id number] 1{each} Take 1 [facility] ps-folate 3-15 Each by ity of no.1-dha 00:00: mouth [place] (VITAFOL 00 daily. Medical ULTRA) 29 Branch mg iron- 1 mg-200 mg Cap PNV 67-iron Yes [id number] 1{each} Take 1 [facility] ps-folate 3-15 Each by ity of no.1-dha 00:00: mouth [place] (VITAFOL 00 daily. Medical ULTRA) 29 Branch mg iron- 1 mg-200 mg Cap hydroxyprog 2018- No [id number] 250mg 1 mL by [facility] est,PF,,pre 10-20 Intramuscu i ty of g presv, 00:00: 04:59 [place] 250 mg/mL 00 :00 weekly for Medi carlos (1 mL) 22 doses. Branch injection hydroxyprog 2018- No [id number] 250mg 1 mL by [facility] est,PF,,pre 10-20 Intramuscu i ty of g presv, 00:00: 04:59 [place] 250 mg/mL 00 :00 weekly for Medi carlos (1 mL) 22 doses. Branch injection hydroxyprog 2019- No [id number] 250mg 1 mL by [facility] est,PF,,pre 10-20 Intramuscu i ty of g presv, 00:00: 04:59 [place] mg/mL 00 :00 weekly for Medi carlos (1 mL) 22 doses. Branch injection hydroxyprog 2019- No [id number] 250mg 1 mL by [facility] est,PF,,pre 10-20 Intramuscu i ty of g presv, 00:00: 04:59 [place] 250 mg/mL 00 :00 weekly for Medi carlos (1 mL) 22 doses. Branch injection hydroxyprog 2019- No [id number] 250mg 1 mL by Univers est,PF,,pre 10-20 Intramuscu i ty of g presv, 00:00: 04:59 [place] 250 mg/mL 00 :00 weekly for Medi carlos (1 mL) 22 doses. Branch injection ascorbic 2017- Yes 500mg Take 1 Univer s acid, 2-28 tablet by ity of vitamin C, 00:00: mouth 3 [place] 500 mg 00 (three) Medical tablet times Branch daily. ascorbic 2018- Yes 500mg Take 1 Univer s acid, 2-28 tablet by ity of vitamin C, 00:00: mouth 3 [place] 500 mg 00 (three) Medical tablet times Branch daily. ascorbic 2017- Yes 500mg Take 1 Univer s acid, 2-28 tablet by ity of vitamin C, 00:00: mouth 3 [place] 500 mg 00 (three) Medical tablet times Branch daily. ascorbic 2017-1 Yes 500mg Take 1 Univer s acid, 2-28 tablet by ity of vitamin C, 00:00: mouth 3 [place] 500 mg 00 (three) Medical tablet times Branch daily. ascorbic 2017- Yes 500mg Take 1 Univer s acid, 2-28 tablet by ity of vitamin C, 00:00: mouth 3 [place] 500 mg 00 (three) Medical tablet times Branch daily. ascorbic 2017- Yes 500mg Take 1 Univer s acid, 2-28 tablet by ity of vitamin C, 00:00: mouth 3 [place] 500 mg 00 (three) Medical tablet times Branch daily. ascorbic 2017- Yes 500mg Take 1 Univer s acid, 2-28 tablet by ity of vitamin C, 00:00: mouth 3 [place] 500 mg 00 (three) Medical tablet times Branch daily. ascorbic 2017- Yes 500mg Take 1 Univer s acid, 2-28 tablet by ity of vitamin C, 00:00: mouth 3 [place] 500 mg 00 (three) Medical tablet times Branch daily. ascorbic 2018-1 Yes 500mg Take 1 Univer s acid, 2-28 tablet by ity of vitamin C, 00:00: mouth 3 [place] 500 mg 00 (three) Medical tablet times Branch daily. ascorbic 2018-1 Yes 500mg Take 1 Univer s acid, 2-28 tablet by ity of vitamin C, 00:00: mouth 3 [place] 500 mg 00 (three) Medical tablet times Branch daily. ascorbic 2018-1 Yes 500mg Take 1 Univer s acid, 2-28 tablet by ity of vitamin C, 00:00: mouth 3 [place] 500 mg 00 (three) Medical tablet times Branch daily. ascorbic 2017- Yes 500mg Take 1 Univer s acid, 2-28 tablet by ity of vitamin C, 00:00: mouth 3 [place] 500 mg 00 (three) Medical tablet times Branch daily. ascorbic 2017- Yes 500mg Take 1 Univer s acid, 2-28 tablet by ity of vitamin C, 00:00: mouth 3 [place] 500 mg 00 (three) Medical tablet times Branch daily. ascorbic 2017-08 Yes 500mg Take 1 Univer s acid, 2-28 tablet by ity of vitamin C, 00:00: mouth 3 [place] 500 mg 00 (three) Medical tablet times Branch daily. ascorbic 2017- Yes 500mg Take 1 Univer s acid, 2-28 tablet by ity of vitamin C, 00:00: mouth 3 [place] 500 mg 00 (three) Medical tablet times Branch daily. ascorbic 2017-08 Yes 500mg Take 1 Univer s acid, 2-28 tablet by ity of vitamin C, 00:00: mouth 3 [place] 500 mg 00 (three) Medical tablet times Branch daily. ascorbic 2017-08 Yes 500mg Take 1 Univer s acid, 2-28 tablet by ity of vitamin C, 00:00: mouth 3 [place] 500 mg 00 (three) Medical tablet times Branch daily. ascorbic 2017-08 Yes 500mg Take 1 Univer s acid, 2-28 tablet by ity of vitamin C, 00:00: mouth 3 [place] 500 mg 00 (three) Medical tablet times Branch daily. ascorbic 2017-08 Yes 500mg Take 1 Univer s acid, 2-28 tablet by ity of vitamin C, 00:00: mouth 3 [place] 500 mg 00 (three) Medical tablet times Branch daily. ascorbic 2017- Yes 500mg Take 1 Univer s acid, 2-28 tablet by ity of vitamin C, 00:00: mouth 3 [place] 500 mg 00 (three) Medical tablet times Branch daily. ascorbic 2017- Yes 500mg Take 1 Univer s acid, 2-28 tablet by ity of vitamin C, 00:00: mouth 3 [place] 500 mg 00 (three) Medical tablet times Branch daily. docusate 2018-1 Yes 240mg Take 1 Univer s calcium 240 1-05 capsule by it y of mg capsule 00:00: mouth once [place] 00 daily as Medical needed for Branch Constipati on. ibuprofen 2017-08 Yes 600mg Take 1 Unive rs 600 mg 1-05 tablet by ity of tablet 00:00: mouth [place] 00 every 6 Medical (six) Branch hours as needed for Pain (scale 1-3) or Pain (scale 4-6) (Pain). Take with food or milk. ferrous 2017-08 Yes 325mg Take 1 [facility] sulfate 325 1-05 tablet by ity of mg (65 mg 00:00: mouth 2 [place] iron) 00 (two) Medical tablet times Branch daily. docusate 2017-08 Yes 240mg Take 1 Univer s calcium 240 1-05 capsule by it y of mg capsule 00:00: mouth once [place] 00 daily as Medical needed for Branch Constipati on. ibuprofen 2017-08 Yes 600mg Take 1 Unive rs 600 mg 1-05 tablet by ity of tablet 00:00: mouth [place] 00 every 6 Medical (six) Branch hours as needed for Pain (scale 1-3) or Pain (scale 4-6) (Pain). Take with food or milk. ferrous 2017-08 Yes 325mg Take 1 [facility] sulfate 325 1-05 tablet by ity of mg (65 mg 00:00: mouth 2 [place] iron) 00 (two) Medical tablet times Branch daily. docusate 2017-08 Yes 240mg Take 1 Univer s calcium 240 1-05 capsule by it y of mg capsule 00:00: mouth once [place] 00 daily as Medical needed for Branch Constipati on. ibuprofen 2017-08 Yes 600mg Take 1 Unive rs 600 mg 1-05 tablet by ity of tablet 00:00: mouth [place] 00 every 6 Medical (six) Branch hours as needed for Pain (scale 1-3) or Pain (scale 4-6) (Pain). Take with food or milk. ferrous 2017-08 Yes 325mg Take 1 [facility] sulfate 325 1-05 tablet by ity of mg (65 mg 00:00: mouth 2 [place] iron) 00 (two) Medical tablet times Branch daily. docusate 2017-08 Yes 240mg Take 1 Univer s calcium 240 1-05 capsule by it y of mg capsule 00:00: mouth once [place] 00 daily as Medical needed for Branch Constipati on. ibuprofen 2017-08 Yes 600mg Take 1 Unive rs 600 mg 1-05 tablet by ity of tablet 00:00: mouth [place] 00 every 6 Medical (six) Branch hours as needed for Pain (scale 1-3) or Pain (scale 4-6) (Pain). Take with food or milk. ferrous 2017-08 Yes 325mg Take 1 [facility] sulfate 325 1-05 tablet by ity of mg (65 mg 00:00: mouth 2 [place] iron) 00 (two) Medical tablet times Branch daily. docusate 2017-08 Yes 240mg Take 1 Univer s calcium 240 1-05 capsule by it y of mg capsule 00:00: mouth once [place] 00 daily as Medical needed for Branch Constipati on. ibuprofen 2017-08 Yes 600mg Take 1 Unive rs 600 mg 1-05 tablet by ity of tablet 00:00: mouth [place] 00 every 6 Medical (six) Branch hours as needed for Pain (scale 1-3) or Pain (scale 4-6) (Pain). Take with food or milk. ferrous 2017-08 Yes 325mg Take 1 [facility] sulfate 325 1-05 tablet by ity of mg (65 mg 00:00: mouth 2 [place] iron) 00 (two) Medical tablet times Branch daily. docusate 2017-08 Yes 240mg Take 1 Univer s calcium 240 1-05 capsule by it y of mg capsule 00:00: mouth once [place] 00 daily as Medical needed for Branch Constipati on. ibuprofen 2017-08 Yes 600mg Take 1 Unive rs 600 mg 1-05 tablet by ity of tablet 00:00: mouth [place] 00 every 6 Medical (six) Branch hours as needed for Pain (scale 1-3) or Pain (scale 4-6) (Pain). Take with food or milk. ferrous 2017-08 Yes 325mg Take 1 [facility] sulfate 325 1-05 tablet by ity of mg (65 mg 00:00: mouth 2 [place] iron) 00 (two) Medical tablet times Branch daily. docusate 2017-08 Yes 240mg Take 1 Univer s calcium 240 1-05 capsule by it y of mg capsule 00:00: mouth once [place] 00 daily as Medical needed for Branch Constipati on. ibuprofen 2017-08 Yes 600mg Take 1 Unive rs 600 mg 1-05 tablet by ity of tablet 00:00: mouth [place] 00 every 6 Medical (six) Branch hours as needed for Pain (scale 1-3) or Pain (scale 4-6) (Pain). Take with food or milk. ferrous 2017-08 Yes 325mg Take 1 [facility] sulfate 325 1-05 tablet by ity of mg (65 mg 00:00: mouth 2 [place] iron) 00 (two) Medical tablet times Branch daily. docusate 2017-08 Yes 240mg Take 1 Univer s calcium 240 1-05 capsule by it y of mg capsule 00:00: mouth once [place] 00 daily as Medical needed for Branch Constipati on. ibuprofen 2017-08 Yes 600mg Take 1 Unive rs 600 mg 1-05 tablet by ity of tablet 00:00: mouth [place] 00 every 6 Medical (six) Branch hours as needed for Pain (scale 1-3) or Pain (scale 4-6) (Pain). Take with food or milk. ferrous 2017-08 Yes 325mg Take 1 [facility] sulfate 325 1-05 tablet by ity of mg (65 mg 00:00: mouth 2 [place] iron) 00 (two) Medical tablet times Branch daily. docusate 2017-08 Yes 240mg Take 1 Univer s calcium 240 1-05 capsule by it y of mg capsule 00:00: mouth once [place] 00 daily as Medical needed for Branch Constipati on. ibuprofen 2017-08 Yes 600mg Take 1 Unive rs 600 mg 1-05 tablet by ity of tablet 00:00: mouth [place] 00 every 6 Medical (six) Branch hours as needed for Pain (scale 1-3) or Pain (scale 4-6) (Pain). Take with food or milk. ferrous 2017-08 Yes 325mg Take 1 [facility] sulfate 325 1-05 tablet by ity of mg (65 mg 00:00: mouth 2 [place] iron) 00 (two) Medical tablet times Branch daily. docusate 2017-08 Yes 240mg Take 1 Univer s calcium 240 1-05 capsule by it y of mg capsule 00:00: mouth once [place] 00 daily as Medical needed for Branch Constipati on. ibuprofen 2017-08 Yes 600mg Take 1 [facility] rs 600 mg 1-05 tablet by [facility] of tablet 00:00: mouth [place] 00 every 6 Medical (six) Branch hours as needed for Pain (scale 1-3) or Pain (scale 4-6) (Pain). Take with food or milk. ferrous 2017-08 Yes 325mg Take 1 [facility] sulfate 325 1-05 tablet by ity of mg (65 mg 00:00: mouth 2 [place] iron) 00 (two) Medical tablet times Branch daily. docusate 2017-08 Yes 240mg Take 1 [facility] calcium 240 1-05 capsule by it y of mg capsule 00:00: mouth once [place] 00 daily as Medical needed for Branch Constipati on. ibuprofen 2017-08 Yes 600mg Take 1 [facility] rs 600 mg 1-05 tablet by [facility]y of tablet 00:00: mouth [place] 00 every 6 Medical (six) Branch hours as needed for Pain (scale 1-3) or Pain (scale 4-6) (Pain). Take with food or milk. ferrous 2017-08 Yes 325mg Take 1 [facility] sulfate 325 1-05 tablet by ity of mg (65 mg 00:00: mouth 2 [place] iron) 00 (two) Medical tablet times Branch daily. docusate 2017-08 Yes 240mg Take 1 [facility] calcium 240 1-05 capsule by it y of mg capsule 00:00: mouth once [place] 00 daily as Medical needed for Branch Constipati on. ibuprofen 2017-08 Yes 600mg Take 1 [facility] rs 600 mg 1-05 tablet by [facility]y of tablet 00:00: mouth [place] 00 every 6 Medical (six) Branch hours as needed for Pain (scale 1-3) or Pain (scale 4-6) (Pain). Take with food or milk. ferrous 2017-08 Yes 325mg Take 1 [facility] sulfate 325 1-05 tablet by [facility]y of mg (65 mg 00:00: mouth 2 [place] iron) 00 (two) Medical tablet times Branch daily. docusate 2017-08 Yes 240mg Take 1 [facility] calcium 240 1-05 capsule by it y of mg capsule 00:00: mouth once [place] 00 daily as Medical needed for Branch Constipati on. ibuprofen 2017-08 Yes 600mg Take 1 [facility] rs 600 mg 1-05 tablet by [facility]y of tablet 00:00: mouth [place] 00 every 6 Medical (six) Branch hours as needed for Pain (scale 1-3) or Pain (scale 4-6) (Pain). Take with food or milk. ferrous 2017-08 Yes 325mg Take 1 [facility] sulfate 325 1-05 tablet by [facility]y of mg (65 mg 00:00: mouth 2 [place] iron) 00 (two) Medical tablet times Branch daily. docusate 2017-08 Yes 240mg Take 1 [facility] calcium 240 1-05 capsule by it y of mg capsule 00:00: mouth once [place] 00 daily as Medical needed for Branch Constipati on. ibuprofen 2017-08 Yes 600mg Take 1 [facility] rs 600 mg 1-05 tablet by [facility]y of tablet 00:00: mouth [place] 00 every 6 Medical (six) Branch hours as needed for Pain (scale 1-3) or Pain (scale 4-6) (Pain). Take with food or milk. ferrous 2017-08 Yes 325mg Take 1 [facility] sulfate 325 1-05 tablet by ity of mg (65 mg 00:00: mouth 2 [place] iron) 00 (two) Medical tablet times Branch daily. docusate 2017-08 Yes 240mg Take 1 [facility] calcium 240 1-05 capsule by it y of mg capsule 00:00: mouth once [place] 00 daily as Medical needed for Branch Constipati on. ibuprofen 2017-08 Yes 600mg Take 1 [facility] rs 600 mg 1-05 tablet by [facility]y of tablet 00:00: mouth [place] 00 every 6 Medical (six) Branch hours as needed for Pain (scale 1-3) or Pain (scale 4-6) (Pain). Take with food or milk. ferrous 2017-08 Yes 325mg Take 1 [facility] sulfate 325 1-05 tablet by [facility]y of mg (65 mg 00:00: mouth 2 [place] iron) 00 (two) Medical tablet times Branch daily. docusate 2017-08 Yes 240mg Take 1 [facility] calcium 240 1-05 capsule by it y of mg capsule 00:00: mouth once [place] 00 daily as Medical needed for Branch Constipati on. ibuprofen 2017-08 Yes 600mg Take 1 [facility] rs 600 mg 1-05 tablet by [facility]y of tablet 00:00: mouth [place] 00 every 6 Medical (six) Branch hours as needed for Pain (scale 1-3) or Pain (scale 4-6) (Pain). Take with food or milk. ferrous 2017-08 Yes 325mg Take 1 [facility] sulfate 325 1-05 tablet by ity of mg (65 mg 00:00: mouth 2 [place] iron) 00 (two) Medical tablet times Branch daily. docusate 2017-08 Yes 240mg Take 1 [facility] calcium 240 1-05 capsule by it y of mg capsule 00:00: mouth once [place] 00 daily as Medical needed for Branch Constipati on. ibuprofen 2017-08 Yes 600mg Take 1 [facility] rs 600 mg 1-05 tablet by [facility]y of tablet 00:00: mouth [place] 00 every 6 Medical (six) Branch hours as needed for Pain (scale 1-3) or Pain (scale 4-6) (Pain). Take with food or milk. ferrous 2017-08 Yes 325mg Take 1 [facility] sulfate 325 1-05 tablet by [facility]y of mg (65 mg 00:00: mouth 2 [place] iron) 00 (two) Medical tablet times Branch daily. docusate 2017-08 Yes 240mg Take 1 [facility] calcium 240 1-05 capsule by it y of mg capsule 00:00: mouth once [place] 00 daily as Medical needed for Branch Constipati on. ibuprofen 2017-08 Yes 600mg Take 1 [facility] rs 600 mg 1-05 tablet by [facility]y of tablet 00:00: mouth [place] 00 every 6 Medical (six) Branch hours as needed for Pain (scale 1-3) or Pain (scale 4-6) (Pain). Take with food or milk. ferrous 2017-08 Yes 325mg Take 1 [facility] sulfate 325 1-05 tablet by ity of mg (65 mg 00:00: mouth 2 [place] iron) 00 (two) Medical tablet times Branch daily. docusate 2017-08 Yes 240mg Take 1 [facility] calcium 240 1-05 capsule by it y of mg capsule 00:00: mouth once [place] 00 daily as Medical needed for Branch Constipati on. ibuprofen 2017-08 Yes 600mg Take 1 [facility] rs 600 mg 1-05 tablet by [facility] of tablet 00:00: mouth [place] 00 every 6 Medical (six) Branch hours as needed for Pain (scale 1-3) or Pain (scale 4-6) (Pain). Take with food or milk. ferrous 2017-08 Yes 325mg Take 1 [facility] sulfate 325 1-05 tablet by ity of mg (65 mg 00:00: mouth 2 [place] iron) 00 (two) Medical tablet times Branch daily. docusate 2017-08 Yes 240mg Take 1 [facility] calcium 240 1-05 capsule by it y of mg capsule 00:00: mouth once [place] 00 daily as Medical needed for Branch Constipati on. ibuprofen 2017-08 Yes 600mg Take 1 [facility] rs 600 mg 1-05 tablet by [facility]y of tablet 00:00: mouth [place] 00 every 6 Medical (six) Branch hours as needed for Pain (scale 1-3) or Pain (scale 4-6) (Pain). Take with food or milk. ferrous 2017-08 Yes 325mg Take 1 [facility] sulfate 325 1-05 tablet by ity of mg (65 mg 00:00: mouth 2 [place] iron) 00 (two) Medical tablet times Branch daily. docusate 2017-08 Yes 240mg Take 1 [facility] calcium 240 1-05 capsule by it y of mg capsule 00:00: mouth once [place] 00 daily as Medical needed for Branch Constipati on. ibuprofen 2017-08 Yes 600mg Take 1 [facility] rs 600 mg 1-05 tablet by [facility]y of tablet 00:00: mouth [place] 00 every 6 Medical (six) Branch hours as needed for Pain (scale 1-3) or Pain (scale 4-6) (Pain). Take with food or milk. ferrous 2017-08 Yes 325mg Take 1 [facility] sulfate 325 1-05 tablet by ity of mg (65 mg 00:00: mouth 2 [place] iron) 00 (two) Medical tablet times Branch daily. PNV 67-iron Yes [id number] 1{each} Take 1 [facility] ps-folate 4-17 Each by ity of no.1-dha 00:00: mouth [place] (VITAFOL 00 daily. Medical ULTRA) 29 Branch mg iron- 1 mg-200 mg Cap PNV 67-iron Yes [id number] 1{each} Take 1 [facility] ps-folate 4-17 Each by ity of no.1-dha 00:00: mouth [place] (VITAFOL 00 daily. Medical ULTRA) 29 Branch mg iron- 1 mg-200 mg Cap PNV 67-iron Yes [id number] 1{each} Take 1 [facility] ps-folate 4-17 Each by ity of no.1-dha 00:00: mouth [place] (VITAFOL 00 daily. Medical ULTRA) 29 Branch mg iron- 1 mg-200 mg Cap PNV 67-iron Yes [id number] 1{each} Take 1 [facility] ps-folate 4-17 Each by ity of no.1-dha 00:00: mouth [place] (VITAFOL 00 daily. Medical ULTRA) 29 Branch mg iron- 1 mg-200 mg Cap PNV 67-iron Yes [id number] 1{each} Take 1 [facility] ps-folate 4-17 Each by ity of no.1-dha 00:00: mouth [place] (VITAFOL 00 daily. Medical ULTRA) 29 Branch mg iron- 1 mg-200 mg Cap PNV 67-iron 2017-0 Yes [id number] 1{each} Take 1 [facility] ps-folate 4-17 Each by ity of no.1-dha 00:00: mouth [place] (VITAFOL 00 daily. Medical ULTRA) 29 Branch mg iron- 1 mg-200 mg Cap PNV 67-iron 2017-0 Yes [id number] 1{each} Take 1 [facility] ps-folate 4-17 Each by ity of no.1-dha 00:00: mouth [place] (VITAFOL 00 daily. Medical ULTRA) 29 Branch mg iron- 1 mg-200 mg Cap PNV 67-iron 2017-0 Yes [id number] 1{each} Take 1 [facility] ps-folate 4-17 Each by ity of no.1-dha 00:00: mouth [place] (VITAFOL 00 daily. Medical ULTRA) 29 Branch mg iron- 1 mg-200 mg Cap PNV 67-iron 2017-0 Yes [id number] 1{each} Take 1 [facility] ps-folate 4-17 Each by ity of no.1-dha 00:00: mouth [place] (VITAFOL 00 daily. Medical ULTRA) 29 Branch mg iron- 1 mg-200 mg Cap PNV 67-iron 2017-0 Yes [id number] 1{each} Take 1 [facility] ps-folate 4-17 Each by ity of no.1-dha 00:00: mouth [place] (VITAFOL 00 daily. Medical ULTRA) 29 Branch mg iron- 1 mg-200 mg Cap PNV 67-iron 2017-0 Yes [id number] 1{each} Take 1 [facility] ps-folate 4-17 Each by ity of no.1-dha 00:00: mouth [place] (VITAFOL 00 daily. Medical ULTRA) 29 Branch mg iron- 1 mg-200 mg Cap PNV 67-iron 2018-0 Yes [id number] 1{each} Take 1 [facility] ps-folate 4-17 Each by ity of no.1-dha 00:00: mouth [place] (VITAFOL 00 daily. Medical ULTRA) 29 Branch mg iron- 1 mg-200 mg Cap PNV 67-iron 2018-0 Yes [id number] 1{each} Take 1 [facility] ps-folate 4-17 Each by ity of no.1-dha 00:00: mouth [place] (VITAFOL 00 daily. Medical ULTRA) 29 Branch mg iron- 1 mg-200 mg Cap PNV 67-iron 2018-0 Yes [id number] 1{each} Take 1 [facility] ps-folate 4-17 Each by ity of no.1-dha 00:00: mouth [place] (VITAFOL 00 daily. Medical ULTRA) 29 Branch mg iron- 1 mg-200 mg Cap PNV 67-iron 2018-0 Yes [id number] 1{each} Take 1 [facility] ps-folate 4-17 Each by ity of no.1-dha 00:00: mouth [place] (VITAFOL 00 daily. Medical ULTRA) 29 Branch mg iron- 1 mg-200 mg Cap PNV 67-iron 2018-0 Yes [id number] 1{each} Take 1 [facility] ps-folate 4-17 Each by ity of no.1-dha 00:00: mouth [place] (VITAFOL 00 daily. Medical ULTRA) 29 Branch mg iron- 1 mg-200 mg Cap PNV 67-iron 2017-0 Yes [id number] 1{each} Take 1 [facility] ps-folate 4-17 Each by ity of no.1-dha 00:00: mouth [place] (VITAFOL 00 daily. Medical ULTRA) 29 Branch mg iron- 1 mg-200 mg Cap PNV 67-iron 2017-0 Yes [id number] 1{each} Take 1 [facility] ps-folate 4-17 Each by ity of no.1-dha 00:00: mouth [place] (VITAFOL 00 daily. Medical ULTRA) 29 Branch mg iron- 1 mg-200 mg Cap PNV 67-iron 2017-0 Yes [id number] 1{each} Take 1 [facility] ps-folate 4-17 Each by ity of no.1-dha 00:00: mouth [place] (VITAFOL 00 daily. Medical ULTRA) 29 Branch mg iron- 1 mg-200 mg Cap PNV 67-iron 2018-0 Yes [id number] 1{each} Take 1 [facility] ps-folate 4-17 Each by ity of no.1-dha 00:00: mouth [place] (VITAFOL 00 daily. Medical ULTRA) 29 Branch mg iron- 1 mg-200 mg Cap PNV 67-iron 2018-0 Yes [id number] 1{each} Take 1 [facility] ps-folate 4-17 Each by ity of no.1-dha 00:00: mouth [place] (VITAFOL 00 daily. Medical ULTRA) 29 Branch mg iron- 1 mg-200 mg Cap Immunizations Ordered Filled Immunization Date Status Comments Sourc e Immunization Name Name [facility] 2021-04-09 Completed [facility] 00:00:[place] [address] 2021-04-09 Completed [facility] of 00:00:00 [place] [address] 2021-04-09 Completed [facility] of 00:00:00 [place] [address] 2021-04-09 Completed [facility] of 00:00:00 [place] [address] 2021-04-09 Completed [facility] of 00:00:00 [place] [address] 2021-04-09 Completed University of 00:00:00 [facility] Rho (d) Immune 2021-01-28 Completed University of Globulin 00:00:00 [facility] [place] [facility] 2021-01-28 Completed University of 00:00:00 [facility] Rho (d) Immune 2021-01-28 Completed [facility] 00:00:00 [facility] Rho (d) Immune 2021-01-28 Completed [facility] 00:00:00 [facility] Rho (d) Immune 2021-01-28 Completed University of Globulin 00:00:00 [facility] [place] [facility] 2021-01-28 Completed University of 00:00:00 [facility] Rho (d) Immune 2021-01-28 Completed University of Globulin 00:00:00 [facility] TDAP 2021-01-28 Completed University of 00:00:00 [facility] Rho (d) Immune 2021-01-28 Completed [facility] 00:00:00 [facility] Rho (d) Immune 2021-01-28 Completed [facility] Com[facility] 00[facility]00:00 [facility] Rho (d) Immune 2021-01-28 Completed [facility] 00:00:00 [facility] Rho (d) Immune 2021-01-28 Completed University of Globulin 00:00:00 [facility] TDAP 2021-01-28 Completed University of 00:00:00 [facility] Rho (d) Immune 2021-01-28 Completed University of Globulin 00:00:00 [facility] TDAP 2021-01-28 Completed University of 00:00:00 [facility] Rho (d) Immune 2021-01-28 Completed University of Globulin 00:00:00 [facility] TDAP 2021-01-28 Completed University of 00:00:00 [facility] Rho (d) Immune 2021-01-28 Completed University of Globulin 00:00:00 [facility] TDAP 2021-01-28 Completed University of 00:00:00 [facility] Rho (d) Immune 2021-01-28 Completed University of Globulin 00:00:00 [facility] TDAP 2021-01-28 Completed University of 00:00:00 [facility] Rho (d) Immune 2021-01-28 Completed University of Globulin 00:00:00 [facility] TDAP 2021-01-28 Completed University of 00:00:00 [facility] Rho (d) Immune 2021-01-28 Completed University of Globulin 00:00:00 [facility] TDAP 2021-01-28 Completed University of 00:00:00 [facility] Rho (d) Immune 2021-01-28 Completed University of Globulin 00:00:00 [facility] TDAP 2021-01-28 Completed University of 00:00:00 [facility] Rho (d) Immune 2021-01-28 Completed University of Globulin 00:00:00 [facility] TDAP 2021-01-28 Completed University of 00:00:00 [facility] Influenza Virus 2020-06-04 Completed Universit y of Vaccine Quad .5 mL 00:00:00 [facility] IM 6+ MO Branch Influenza Virus 2020-06-04 Completed Universit y of Vaccine Quad .5 mL 00:00:00 [facility] IM 6+ MO Branch Influenza Virus 2020-06-04 Completed Universit y of Vaccine Quad .5 mL 00:00:00 [facility] IM 6+ MO Branch Influenza Virus 2020-06-04 Completed Universit y of Vaccine Quad .5 mL 00:00:00 [facility] IM 6+ MO Branch Influenza Virus 2020-06-04 Completed Universit y of Vaccine Quad .5 mL 00:00:00 [place] [facility] IM 6+ MO Branch Influenza Virus 2020-06-04 Completed Universit y of Vaccine Quad .5 mL 00:00:00 [place] [facility] IM 6+ MO Branch Influenza Virus 2020-06-04 Completed Universit y of Vaccine Quad .5 mL 00:00:00 [place] [facility] IM 6+ MO Branch Influenza Virus 2020-06-04 Completed Universit y of Vaccine Quad .5 mL 00:00:00 [place] [facility] IM 6+ MO Branch Influenza Virus 2020-06-04 Completed Universit y of Vaccine Quad .5 mL 00:00:00 [place] [facility] IM 6+ MO Branch Influenza Virus 2020-06-04 Completed Universit y of Vaccine Quad .5 mL 00:00:00 [place] [facility] IM 6+ MO Branch Influenza Virus 2020-06-04 Completed Universit y of Vaccine Quad .5 mL 00:00:00 [place] [facility] IM 6+ MO Branch Influenza Virus 2020-06-04 Completed Universit y of Vaccine Quad .5 mL 00:00:00 [place] [facility] IM 6+ MO Branch Influenza Virus 2020-06-04 Completed Universit y of Vaccine Quad .5 mL 00:00:00 [place] [facility] IM 6+ MO Branch Influenza Virus 2020-06-04 Completed Universit y of Vaccine Quad .5 mL 00:00:00 [place] [facility] IM 6+ MO Branch Influenza Virus 2020-06-04 Completed Universit y of Vaccine Quad .5 mL 00:00:00 [place] [facility] IM 6+ MO Branch Influenza Virus 2020-06-04 Completed Universit y of Vaccine Quad .5 mL 00:00:00 [place] [facility] IM 6+ MO Branch Influenza Virus 2020-06-04 Completed Universit y of Vaccine Quad .5 mL 00:00:00 [place] [facility] IM 6+ MO Branch Influenza Virus 2020-06-04 Completed Universit y of Vaccine Quad .5 mL 00:00:00 [place] [facility] IM 6+ MO Branch Influenza Virus 2020-06-04 Completed Universit y of Vaccine Quad .5 mL 00:00:00 [place] [facility] IM 6+ MO Branch Influenza Virus 2020-06-04 Completed Universit y of Vaccine Quad .5 mL 00:00:00 [place] [facility] IM 6+ MO Branch Influenza Virus 2020-06-04 Completed Universit y of Vaccine Quad .5 mL 00:00:00 [place] [facility] IM 6+ MO Branch Influenza Virus 2020-06-04 Completed Universit y of Vaccine Quad .5 mL 00:00:00 [place] [facility] IM 6+ MO Branch Influenza Virus 2020-06-04 Completed Universit y of Vaccine Quad .5 mL 00:00:00 [place] [facility] IM 6+ MO Branch Influenza Virus 2020-06-04 Completed Universit y of Vaccine Quad .5 mL 00:00:00 [place] [facility] IM 6+ MO Branch Influenza Virus 2020-06-04 Completed Universit y of Vaccine Quad .5 mL 00:00:00 [place] [facility] IM 6+ MO Branch Influenza Virus 2020-06-04 Completed Universit y of Vaccine Quad .5 mL 00:00:00 [place] [facility] IM 6+ MO Branch Influenza Virus 2020-06-04 Completed Universit y of Vaccine Quad .5 mL 00:00:00 [place] [facility] IM 6+ MO Branch Influenza Virus 2020-06-04 Completed Universit y of Vaccine Quad .5 mL 00:00:00 [place] [facility] IM 6+ MO Branch Influenza Virus 2020-06-04 Completed Universit y of Vaccine Quad .5 mL 00:00:00 [place] [facility] IM 6+ MO Branch Influenza Virus 2020-06-04 Completed Universit y of Vaccine Quad .5 mL 00:00:00 [place] [facility] IM 6+ MO Branch Influenza Virus 2020-06-04 Completed Universit y of Vaccine Quad .5 mL 00:00:00 [place] [facility] IM 6+ MO Branch Influenza Virus 2020-06-04 Completed Universit y of Vaccine Quad .5 mL 00:00:00 [place] [facility] IM 6+ MO Branch Influenza Virus 2020-06-04 Completed Universit y of Vaccine Quad .5 mL 00:00:00 [place] [facility] IM 6+ MO Branch Influenza Virus 2020-06-04 Completed Universit y of Vaccine Quad .5 mL 00:00:00 [place] [facility] IM 6+ MO Branch Influenza Virus 2020-06-04 Completed Universit y of Vaccine Quad .5 mL 00:00:00 [place] [facility] IM 6+ MO Branch Influenza Virus 2020-06-04 Completed Universit y of Vaccine Quad .5 mL 00:00:00 [place] [facility] IM 6+ MO Branch Influenza Virus 2020-06-04 Completed Universit y of Vaccine Quad .5 mL 00:00:00 [place] [facility] IM 6+ MO Branch Influenza Virus 2020-06-04 Completed Universit y of Vaccine Quad .5 mL 00:00:00 [place] [facility] IM 6+ MO Branch Influenza Virus 2020-06-04 Completed Universit y of Vaccine Quad .5 mL 00:00:00 [place] [facility] IM 6+ MO Branch Influenza Virus 2020-06-04 Completed Universit y of Vaccine Quad .5 mL 00:00:00 [place] [facility] IM 6+ MO Branch Influenza Virus 2020-06-04 Completed Universit y of Vaccine Quad .5 mL 00:00:00 [place] [facility] IM 6+ MO Branch Influenza Virus 2020-06-04 Completed Universit y of Vaccine Quad .5 mL 00:00:00 [place] [facility] IM 6+ MO Branch Influenza Virus 2020-06-04 Completed Universit y of Vaccine Quad .5 mL 00:00:00 [place] [facility] IM 6+ MO Branch Influenza Virus 2020-06-04 Completed Universit y of Vaccine Quad .5 mL 00:00:00 [place] [facility] IM 6+ MO Branch Influenza Virus 2020-06-04 Completed Universit y of Vaccine Quad .5 mL 00:00:00 [place] [facility] IM 6+ MO Branch Influenza Virus 2020-06-04 Completed Universit y of Vaccine Quad .5 mL 00:00:00 [place] [facility] IM 6+ MO Branch Influenza Virus 2020-06-04 Completed Universit y of Vaccine Quad .5 mL 00:00:00 [place] [facility] IM 6+ MO Branch Influenza Virus 2020-06-04 Completed Universit y of Vaccine Quad .5 mL 00:00:00 [place] [facility] IM 6+ MO Branch Influenza Virus 2020-06-04 Completed Universit y of Vaccine Quad .5 mL 00:00:00 [place] [facility] IM 6+ MO Branch Influenza Virus 2020-06-04 Completed Universit y of Vaccine Quad .5 mL 00:00:00 [place] [facility] IM 6+ MO Branch Influenza Virus 2020-06-04 Completed Universit y of Vaccine Quad .5 mL 00:00:00 [place] [facility] IM 6+ MO Branch Influenza Virus 2020-06-04 Completed Universit y of Vaccine Quad .5 mL 00:00:00 [place] [facility] IM 6+ MO Branch Influenza Virus 2020-06-04 Completed Universit y of Vaccine Quad .5 mL 00:00:00 [place] [facility] IM 6+ MO Branch Influenza Virus 2020-06-04 Completed Universit y of Vaccine Quad .5 mL 00:00:00 [place] [facility] IM 6+ MO Branch Influenza Virus 2020-06-04 Completed Universit y of Vaccine Quad .5 mL 00:00:00 [place] [facility] IM 6+ MO Branch Influenza Virus 2020-06-04 Completed Universit y of Vaccine Quad .5 mL 00:00:00 [place] [facility] IM 6+ MO Branch Influenza Virus 2020-06-04 Completed Universit y of Vaccine Quad .5 mL 00:00:00 [place] [facility] IM 6+ MO Branch Influenza Virus 2020-06-04 Completed Universit y of Vaccine Quad .5 mL 00:00:00 [place] [facility] IM 6+ MO Branch Influenza Virus 2020-06-04 Completed Universit y of Vaccine Quad .5 mL 00:00:00 [place] [facility] IM 6+ MO Branch Influenza Virus 2020-06-04 Completed Universit y of Vaccine Quad .5 mL 00:00:00 [place] [facility] IM 6+ MO Branch Influenza Virus 2020-06-04 Completed [facility]it y of Vaccine Quad .5 mL 00:00:00 [place] [facility] IM 6+ MO Branch Influenza Virus 2020-06-04 Completed Universit y of Vaccine Quad .5 mL 00:00:00 [place] [facility] IM 6+ MO Branch Influenza Virus 2020-06-04 Completed Universit y of Vaccine Quad .5 mL 00:00:00 [place] [facility] IM 6+ MO Branch Influenza Virus 2020-06-04 Completed Universit y of Vaccine Quad .5 mL 00:00:00 [place] [facility] IM 6+ MO Branch Influenza Virus 2020-06-04 Completed Universit y of Vaccine Quad .5 mL 00:00:00 [place] [facility] IM 6+ MO Branch Influenza Virus 2020-06-04 Completed Universit y of Vaccine Quad .5 mL 00:00:00 [place] [facility] IM 6+ MO Branch Influenza Virus 2020-06-04 Completed Universit y of Vaccine Quad .5 mL 00:00:00 [place] [facility] IM 6+ MO Branch Influenza Virus 2020-06-04 Completed Universit y of Vaccine Quad .5 mL 00:00:00 [place] [facility] IM 6+ MO Branch Influenza Virus 2020-06-04 Completed Universit y of Vaccine Quad .5 mL 00:00:00 [place] [facility] IM 6+ MO Branch Influenza Virus 2020-06-04 Completed Universit y of Vaccine Quad .5 mL 00:00:00 [place] [facility] IM 6+ MO Branch Influenza Virus 2020-06-04 Completed Universit y of Vaccine Quad .5 mL 00:00:00 [place] [facility] IM 6+ MO Branch HPV9 2019-09-18 Completed University of 00:00:00 [place] [facility] Siren HPV9 2019-09-18 Completed University of 00:00:00 [place] [facility] Si[place] HPV9 2019-09-18 Completed University of 00:00:00 [place] [facility] HPV9 2019-09-18 Completed [facility] of 00:00:00 [place] [facility] HPV9 2019-09-18 Completed [facility] of 00:00:00 [place] [facility] HPV9 2019-09-18 Completed [facility] of 00:00:00 [place] [facility] HPV9 2019-09-18 Completed [facility] of 00:00:00 [place] [facility] HPV9 2019-09-18 Completed [facility] of 00:00:00 [place] [facility] HPV9 2019-09-18 Completed [facility] of 00:00:00 [place] [facility] HPV9 2019-09-18 Completed [facility] of 00:00:00 [place] [facility] HPV9 2019-09-18 Completed [facility] of 00:00:00 [place] [facility] HPV9 2019-09-18 Completed [facility] of 00:00:00 [place] [facility] HPV9 2019-09-18 Completed [facility] of 00:00:00 [place] [facility] HPV9 2019-09-18 Completed [facility] of 00:00:00 [place] [facility] HPV9 2019-09-18 Completed [facility] of 00:00:00 [place] [facility] HPV9 2019-09-18 Completed [facility] of 00:00:00 [place] [facility] HPV9 2019-09-18 Completed [facility] of 00:00:00 [place] [facility] HPV9 2019-09-18 Completed [facility] of 00:00:00 [place] [facility] HPV9 2019-09-18 Completed [facility] of 00:00:00 [place] [facility] HPV9 2019-09-18 Completed [facility] of 00:00:00 [place] [facility] HPV9 2019-09-18 Completed [facility] of 00:00:00 [place] [facility] HPV9 2019-09-18 Completed [facility] of 00:00:00 [place] [facility] HPV9 2019-09-18 Completed [facility] of 00:00:00 [place] [facility] HPV9 2019-09-18 Completed [facility] of 00:00:00 [place] [facility] HPV9 2019-09-18 Completed [facility] of 00:00:00 [place] [facility] HPV9 2019-09-18 Completed [facility] of 00:00:00 [place] [facility] HPV9 2019-09-18 Completed University of 00:00:00 [place] [facility] HPV9 2019-09-18 Completed University of 00:00:00 [facility] HPV9 2019-09-18 Completed [facility] 00:00:00 [facility] HPV9 2019-09-18 Completed [facility] 00:00:00 [facility] HPV9 2019-09-18 Completed [facility] 00:00:00 [facility] HPV9 2019-09-18 Completed [facility] 00:00:00 [facility] HPV9 2019-09-18 Completed [facility] 00:00:00 [facility] HPV9 2019-09-18 Completed [facility] 00:00:00 [facility] HPV9 2019-09-18 Completed [facility] 00:00:00 [facility] HPV9 2019-09-18 Completed [facility] 00:00:00 [facility] HPV9 2019-09-18 Completed [facility] 00:00:00 [facility] HPV9 2019-09-18 Completed [facility] 00:00:00 [facility] HPV9 2019-09-18 Completed [facility] 00:00:00 [facility] HPV9 2019-09-18 Completed [facility] 00:00:00 [facility] HPV9 2019-09-18 Completed [facility] 00:00:00 [facility] HPV9 2019-09-18 Completed [facility] 00:00:00 [facility] HPV9 2019-09-18 Completed [facility] 00:00:00 [facility] HPV9 2019-09-18 Completed [facility] 00:00:00 [facility] HPV9 2019-09-18 Completed [facility] 00:00:00 [facility] HPV9 2019-09-18 Completed [facility] 00:00:00 [facility] HPV9 2019-09-18 Completed [facility] 00:00:00 [facility] HPV9 2019-09-18 Completed [facility] 00:00:00 [facility] HPV9 2019-09-18 Completed [facility] 00:00:00 [facility] HPV9 2019-09-18 Completed [facility] 00:00:00 [facility] HPV9 2019-09-18 Completed [facility] 00:00:00 [facility] HPV9 2019-09-18 Completed [facility] 00:00:00 [facility] HPV9 2019-09-18 Completed [facility] 00:00:00 [facility] HPV9 2019-09-18 Completed [facility] 00:00:00 [facility] HPV9 2019-09-18 Completed [facility] 00:00:00 [facility] HPV9 2019-09-18 Completed [facility] 00:00:00 [facility] HPV9 2019-09-18 Completed [facility] 00:00:00 [facility] HPV9 2019-09-18 Completed [facility] 00:00:00 [facility] HPV9 2019-09-18 Completed [facility] 00:00:00 [facility] HPV9 2019-09-18 Completed [facility] 00:00:00 [facility] HPV9 2019-09-18 Completed [facility] 00:00:00 [facility] HPV9 2019-09-18 Completed [facility] 00:00:00 [facility] HPV9 2019-09-18 Completed [facility] 00:00:00 [facility] HPV9 2019-09-18 Completed [facility] 00:00:00 [facility] HPV9 2019-09-18 Completed [facility] 00:00:00 [facility] HPV9 2019-09-18 Completed [facility] 00:00:00 [facility] HPV9 2019-09-18 Completed [facility] 00:00:00 [facility] HPV9 2019-09-18 Completed [facility] 00:00:00 [facility] HPV9 2019-09-18 Completed [facility] 00:00:00 [facility] HPV9 2019-09-18 Completed [facility] 00:00:00 [facility] HPV9 2019-09-18 Completed [facility] 00:00:00 [facility] HPV9 2019-09-18 Completed [facility] 00:00:00 [facility] HPV9 2019-09-18 Completed [facility] 00:00:00 [facility] HPV9 2019-09-18 Completed [facility] 00:00:00 [facility] HPV9 2019-09-18 Completed [facility] 00:00:00 [facility] HPV9 2019-09-18 Completed [facility] 00[facility]00:00 [facility] HPV9 2019-09-18 Completed [facility] 00:00:00 [facility] HPV9 2019-09-18 Completed [facility] 00:00:00 [facility] HPV9 2019-09-18 Completed [facility] 00:00:00 [facility] HPV9 2019-09-18 Completed [facility] 00:00:00 [facility] HPV9 2019-09-18 Completed [facility] 00:00:00 [facility] HPV9 2019-09-18 Completed [facility] 00:00:00 [facility] HPV9 2019-09-18 Completed [facility] 00:00:00 [facility] HPV9 2019-09-18 Completed [facility] 00:00:00 [facility] HPV9 2019-09-18 Completed [facility] 00:00:00 [facility] HPV9 2019-09-18 Completed [facility] 00:00:00 [facility] HPV9 2019-09-18 Completed [facility] 00:00:00 [facility] Rho (d) Immune 2019-06-10 Completed [facility] Gl[facility]ulin 00:00:00 [facility] Rho (d) Immune 2019-06-10 Completed [facility] Gl[facility]ulin 00:00:00 [facility] Rho (d) Immune 2019-06-10 Completed [facility] 00:00:00 [facility] Rho (d) Immune 2019-06-10 Completed [facility] 00:00:00 [facility] Rho (d) Immune 2019-06-10 Completed [facility] 00:00:00 [facility] Rho (d) Immune 2019-06-10 Completed [facility] 00:00:00 [facility] Rho (d) Immune 2019-06-10 Completed [facility] Gl[facility] 00:00:00 [facility] Rho (d) Immune 2019-06-10 Completed [facility] 00:00:00 [facility] Rho (d) Immune 2019-06-10 Completed [facility] 00:00:00 [facility] Rho (d) Immune 2019-06-10 Completed [facility] 00:00:00 [facility] Rho (d) Immune 2019-06-10 Completed [facility] Gl[facility]ulin 00:00:00 [facility] Rho (d) Immune 2019-06-10 Completed [facility] 00:00:00 [facility] Rho (d) Immune 2019-06-10 Completed [facility]ulin 00:00:00 [facility] Rho (d) Immune 2019-06-10 Completed [facility] 00:00:00 [facility] Rho (d) Immune 2019-06-10 Completed [facility] 00:00:00 [facility] Rho (d) Immune 2019-06-10 Completed [facility] Gl[facility]ulin 00:00:00 [facility] Rho (d) Immune 2019-06-10 Completed [facility] Gl[facility]ulin 00:00:00 [facility] Rho (d) Immune 2019-06-10 Completed [facility] 00:00:00 [facility] Rho (d) Immune 2019-06-10 Completed [facility] 00:00:00 [facility] Rho (d) Immune 2019-06-10 Completed [facility]ulin 00:00:00 [facility] Rho (d) Immune 2019-06-10 Completed [facility]ulin 00:00:00 [facility] Rho (d) Immune 2019-06-10 Completed [facility] 00:00:00 [facility] Rho (d) Immune 2019-06-10 Completed [facility] 00:00:00 [facility] Rho (d) Immune 2019-06-10 Completed [facility] Gl[facility]ulin 00:00:00 [facility] Rho (d) Immune 2019-06-10 Completed [facility] 00:00:00 [facility] Rho (d) Immune 2019-06-10 Completed [facility] 00:00:00 [facility] Rho (d) Immune 2019-06-10 Completed [facility] 00:00:00 [facility] Rho (d) Immune 2019-06-10 Completed [facility] 00:00:00 [facility] Rho (d) Immune 2019-06-10 Completed [facility]ulin 00:00:00 [facility] Rho (d) Immune 2019-06-10 Completed [facility]ulin 00:00:00 [facility] Rho (d) Immune 2019-06-10 Completed [facility]ulin 00:00:00 [facility] Rho (d) Immune 2019-06-10 Completed [facility] 00:00:00 [facility] Rho (d) Immune 2019-06-10 Completed [facility]ulin 00:00:00 [facility] Rho (d) Immune 2019-06-10 Completed [facility]ulin 00:00:00 [facility] Rho (d) Immune 2019-06-10 Completed [facility]ulin 00:00:00 [facility] Rho (d) Immune 2019-06-10 Completed [facility] Gl[facility]ulin 00:00:00 [facility] Rho (d) Immune 2019-06-10 Completed [facility]ulin 00:00:00 [facility] Rho (d) Immune 2019-06-10 Completed [facility]ulin 00:00:00 [facility] Rho (d) Immune 2019-06-10 Completed [facility] Gl[facility]ulin 00:00:00 [facility] Rho (d) Immune 2019-06-10 Completed [facility] Gl[facility]ulin 00:00:00 [facility] Rho (d) Immune 2019-06-10 Completed [facility] Gl[facility]ulin 00:00:00 [facility] Rho (d) Immune 2019-06-10 Completed [facility]ulin 00:00:00 [facility] Rho (d) Immune 2019-06-10 Completed [facility]ulin 00:00:00 [facility] Rho (d) Immune 2019-06-10 Completed [facility] 00:00:00 [facility] Rho (d) Immune 2019-06-10 Completed [facility] Gl[facility]ulin 00:00:00 [facility] Rho (d) Immune 2019-06-10 Completed [facility] Gl[facility]ulin 00:00:00 [facility] Rho (d) Immune 2019-06-10 Completed [facility] 00:00:00 [facility] Rho (d) Immune 2019-06-10 Completed [facility] 00:00:00 [facility] Rho (d) Immune 2019-06-10 Completed [facility] 00:00:00 [facility] Rho (d) Immune 2019-06-10 Completed [facility] 00:00:00 [facility] Rho (d) Immune 2019-06-10 Completed [facility] 00:00:00 [facility] Rho (d) Immune 2019-06-10 Completed [facility] 00:00:00 [facility] Rho (d) Immune 2019-06-10 Completed [facility] 00:00:00 [facility] Rho (d) Immune 2019-06-10 Completed [facility] 00:00:00 [facility] Rho (d) Immune 2019-06-10 Completed [facility] 00:00:00 [facility] Rho (d) Immune 2019-06-10 Completed [facility] 00:00:00 [facility] Rho (d) Immune 2019-06-10 Completed [facility] 00:00:00 [facility] Rho (d) Immune 2019-06-10 Completed [facility] 00:00:00 [facility] Rho (d) Immune 2019-06-10 Completed [facility] 00:00:00 [facility] Rho (d) Immune 2019-06-10 Completed [facility] 00:00:00 [facility] Rho (d) Immune 2019-06-10 Completed [facility] Gl[facility]ulin 00:00:00 [facility] Rho (d) Immune 2019-06-10 Completed [facility] 00:00:00 [facility] Rho (d) Immune 2019-06-10 Completed [facility]ulin 00:00:00 [facility] Rho (d) Immune 2019-06-10 Completed [facility]ulin 00:00:00 [facility] Rho (d) Immune 2019-06-10 Completed [facility] 00:00:00 [facility] Rho (d) Immune 2019-06-10 Completed [facility] 00:00:00 [facility] Rho (d) Immune 2019-06-10 Completed [facility] 00:00:00 [facility] Rho (d) Immune 2019-06-10 Completed [facility] 00:00:00 [facility] Rho (d) Immune 2019-06-10 Completed [facility] Gl[facility] 00:00:00 [facility] Rho (d) Immune 2019-06-10 Completed [facility] 00:00:00 [facility] Rho (d) Immune 2019-06-10 Completed [facility]ulin 00:00:00 [facility] Rho (d) Immune 2019-06-10 Completed [facility] 00:00:00 [facility] Rho (d) Immune 2019-06-10 Completed [facility] 00:00:00 [facility] Rho (d) Immune 2019-06-10 Completed [facility] 00:00:00 [facility] Rho (d) Immune 2019-06-10 Completed [facility] 00:00:00 [facility] Rho (d) Immune 2019-06-10 Completed [facility] Gl[facility]ulin 00:00:00 [facility] Rho (d) Immune 2019-06-10 Completed [facility] 00:00:00 [facility] Rho (d) Immune 2019-06-10 Completed [facility] 00:00:00 [facility] Rho (d) Immune 2019-06-10 Completed [facility] Gl[facility] 00:00:00 [facility] Rho (d) Immune 2019-06-10 Completed [facility] 00:00:00 [facility] Rho (d) Immune 2019-06-10 Completed [facility] 00:00:00 [facility] Rho (d) Immune 2019-06-10 Completed [facility] 00:00:00 [facility] Rho (d) Immune 2019-06-10 Completed [facility] 00:00:00 [facility] Rho (d) Immune 2019-06-10 Completed [facility] 00:00:00 [facility] Rho (d) Immune 2019-06-10 Completed [facility] 00:00:00 [facility] Rho (d) Immune 2019-06-10 Completed [facility] 00:00:00 [facility] Rho (d) Immune 2019-06-10 Completed [facility] Gl[facility] 00:00:00 [facility] Tdap 2019-03-29 Completed [facility] 00:00:00 [facility] Rho (d) Immune 2019-03-29 Completed [facility] Globulin 00:00:00 [facility] Tdap 2019-03-29 Completed [facility] 00:00:00 [facility] Rho (d) Immune 2019-03-29 Completed [facility] Globulin 00:00:00 [facility] Tdap 2019-03-29 Completed [facility] 00:00:00 [facility] Rho (d) Immune 2019-03-29 Completed [facility] Globulin 00:00:00 [facility] Tdap 2019-03-29 Completed [facility] 00:00:00 [facility] Rho (d) Immune 2019-03-29 Completed [facility] Globulin 00:00:00 [facility] Tdap 2019-03-29 Completed [facility] 00:00:00 [facility] Rho (d) Immune 2019-03-29 Completed [facility] Globulin 00:00:00 [facility] Tdap 2019-03-29 Completed [facility] 00:00:00 [facility] Rho (d) Immune 2019-03-29 Completed [facility] Globulin 00:00:00 [facility] Tdap 2019-03-29 Completed [facility] 00:00:00 [facility] Rho (d) Immune 2019-03-29 Completed [facility] Globulin 00:00:00 [facility] Tdap 2019-03-29 Completed [facility] 00[facility]00:00 [facility] Rho (d) Immune 2019-03-29 Completed [facility] Globulin 00:00:00 [facility] Tdap 2019-03-29 Completed [facility] 00:00:00 [facility] Rho (d) Immune 2019-03-29 Completed [facility] Globulin 00:00:00 [facility] Tdap 2019-03-29 Completed [facility] 00:00:00 [facility] Rho (d) Immune 2019-03-29 Completed [facility] Globulin 00:00:00 [facility] Tdap 2019-03-29 Completed [facility] 00:00:00 [facility] Rho (d) Immune 2019-03-29 Completed [facility] Globulin 00:00:00 [facility] Tdap 2019-03-29 Completed [facility] 00:00:00 [facility] Rho (d) Immune 2019-03-29 Completed [facility] Globulin 00:00:00 [facility] Tdap 2019-03-29 Completed [facility] 00[facility]00:00 [facility] Rho (d) Immune 2019-03-29 Completed [facility] Gl[facility]ulin 00:00:00 [facility] TDAP 2019-03-29 Completed [facility] 00:00:00 [facility] Rho (d) Immune 2019-03-29 Completed [facility] Gl[facility]ulin 00:00:00 [facility] TDAP 2019-03-29 Completed [facility] 00:00:00 [facility] Rho (d) Immune 2019-03-29 Completed [facility] Gl[facility]ulin 00:00:00 [facility] TDAP 2019-03-29 Completed [facility] 00:00:00 [facility] Rho (d) Immune 2019-03-29 Completed [facility] Gl[facility]ulin 00:00:00 [facility] TDAP 2019-03-29 Completed [facility] 00:00:00 [facility] Rho (d) Immune 2019-03-29 Completed [facility] 00:00:00 [facility] TDAP 2019-03-29 Completed [facility] 00:00:00 [facility] Rho (d) Immune 2019-03-29 Completed [facility] Gl[facility]ulin 00:00:00 [facility] TDAP 2019-03-29 Completed [facility] 00[facility]00:00 [facility] Rho (d) Immune 2019-03-29 Completed [facility] Globulin 00:00:00 [facility] TDAP 2019-03-29 Completed [facility] 00[facility]00:00 [facility] Rho (d) Immune 2019-03-29 Completed [facility] Globulin 00:00:00 [facility] TDAP 2019-03-29 Completed [facility] 00[facility]00:00 [facility] Rho (d) Immune 2019-03-29 Completed [facility] Gl[facility]ulin 00:00:00 [facility] TDAP 2019-03-29 Completed [facility] 00:00:00 [facility] Rho (d) Immune 2019-03-29 Completed [facility] Gl[facility]ulin 00:00:00 [facility] TDAP 2019-03-29 Completed [facility] 00:00:00 [facility] Rho (d) Immune 2019-03-29 Completed [facility] Gl[facility]ulin 00:00:00 [facility] TDAP 2019-03-29 Completed [facility] 00:00:00 [facility] Rho (d) Immune 2019-03-29 Completed [facility] Gl[facility]ulin 00:00:00 [facility] TDAP 2019-03-29 Completed [facility] 00[facility]00:00 [facility] Rho (d) Immune 2019-03-29 Completed [facility] Gl[facility]ulin 00:00:00 [facility] TDAP 2019-03-29 Completed [facility] 00:00:00 [facility] Rho (d) Immune 2019-03-29 Completed [facility] Globulin 00:00:00 [facility] TDAP 2019-03-29 Completed [facility] 00:00:00 [facility] Rho (d) Immune 2019-03-29 Completed [facility] Gl[facility]ulin 00:00:00 [facility] TDAP 2019-03-29 Completed [facility] 00:00:00 [facility] Rho (d) Immune 2019-03-29 Completed [facility] Gl[facility]ulin 00:00:00 [facility] TDAP 2019-03-29 Completed [facility] 00:00:00 [facility] Rho (d) Immune 2019-03-29 Completed [facility] Gl[facility] 00:00:00 [facility] TDAP 2019-03-29 Completed [facility] 00:00:00 [facility] Rho (d) Immune 2019-03-29 Completed [facility] Gl[facility] 00:00:00 [facility] TDAP 2019-03-29 Completed [facility] 00:00:00 [facility] Rho (d) Immune 2019-03-29 Completed [facility] Gl[facility]ulin 00:00:00 [facility] TDAP 2019-03-29 Completed [facility] 00:00:00 [facility] Rho (d) Immune 2019-03-29 Completed [facility] Gl[facility]ulin 00:00:00 [facility] TDAP 2019-03-29 Completed [facility] 00:00:00 [facility] Rho (d) Immune 2019-03-29 Completed [facility] Gl[facility]ulin 00:00:00 [facility] TDAP 2019-03-29 Completed [facility] 00:00:00 [facility] Rho (d) Immune 2019-03-29 Completed [facility] Gl[facility]ulin 00:00:00 [facility] TDAP 2019-03-29 Completed [facility] 00[facility]00:00 [facility] Rho (d) Immune 2019-03-29 Completed [facility] Gl[facility] 00:00:00 [facility] TDAP 2019-03-29 Completed [facility] 00:00:00 [facility] Rho (d) Immune 2019-03-29 Completed [facility] Gl[facility]ulin 00:00:00 [facility] TDAP 2019-03-29 Completed [facility] 00:00:00 [facility] Rho (d) Immune 2019-03-29 Completed [facility] 00:00:00 [facility] TDAP 2019-03-29 Completed [facility] 00[facility]00:00 [facility] Rho (d) Immune 2019-03-29 Completed [facility] Gl[facility] 00:00:00 [facility] TDAP 2019-03-29 Completed [facility] 00:00:00 [facility] Rho (d) Immune 2019-03-29 Completed [facility] 00:00:00 [facility] TDAP 2019-03-29 Completed [facility] 00[facility]00:00 [facility] Rho (d) Immune 2019-03-29 Completed [facility] Gl[facility] 00:00:00 [facility] TDAP 2019-03-29 Completed [facility] 00:00:00 [facility] Rho (d) Immune 2019-03-29 Completed [facility] Gl[facility] 00:00:00 [facility] TDAP 2019-03-29 Completed [facility] 00:00:00 [facility] Rho (d) Immune 2019-03-29 Completed [facility] 00:00:00 [facility] TDAP 2019-03-29 Completed [facility] 00:00:00 [facility] Rho (d) Immune 2019-03-29 Completed [facility] Gl[facility] 00:00:00 [facility] TDAP 2019-03-29 Completed [facility] 00[facility]00:00 [facility] Rho (d) Immune 2019-03-29 Completed [facility] Gl[facility] 00:00:00 [facility] TDAP 2019-03-29 Completed [facility] 00[facility]00:00 [facility] Rho (d) Immune 2019-03-29 Completed [facility] Gl[facility]ulin 00:00:00 [facility] TDAP 2019-03-29 Completed [facility] 00[facility]00:00 [facility] Rho (d) Immune 2019-03-29 Completed [facility] Gl[facility] 00:00:00 [facility] TDAP 2019-03-29 Completed [facility] 00:00:00 [facility] Rho (d) Immune 2019-03-29 Completed [facility] Gl[facility] 00:00:00 [facility] TDAP 2019-03-29 Completed [facility] 00:00:00 [facility] Rho (d) Immune 2019-03-29 Completed [facility] Gl[facility]ulin 00:00:00 [facility] TDAP 2019-03-29 Completed [facility] 00:00:00 [facility] Rho (d) Immune 2019-03-29 Completed [facility] Gl[facility] 00:00:00 [facility] TDAP 2019-03-29 Completed [facility] 00:00:00 [facility] Rho (d) Immune 2019-03-29 Completed [facility] Gl[facility] 00:00:00 [facility] TDAP 2019-03-29 Completed [facility] 00:00:00 [facility] Rho (d) Immune 2019-03-29 Completed [facility] Gl[facility]ulin 00:00:00 [facility] TDAP 2019-03-29 Completed [facility] 00:00:00 [facility] Rho (d) Immune 2019-03-29 Completed [facility] Gl[facility] 00:00:00 [facility] TDAP 2019-03-29 Completed [facility] 00:00:00 [facility] Rho (d) Immune 2019-03-29 Completed [facility] Gl[facility] 00:00:00 [facility] TDAP 2019-03-29 Completed [facility] 00:00:00 [facility] Rho (d) Immune 2019-03-29 Completed [facility] Gl[facility] 00:00:00 [facility] TDAP 2019-03-29 Completed [facility] 00[facility] Branch Rho (d) Immune 2019-03-29 Completed [facility] Globulin 00:00:00 [facility] TDAP 2019-03-29 Completed [facility] 00:00:00 [facility] Rho (d) Immune 2019-03-29 Completed [facility] Globulin 00:00:00 [facility] TDAP 2019-03-29 Completed [facility] 00:00:00 [facility] Rho (d) Immune 2019-03-29 Completed [facility] Globulin 00:00:00 [facility] TDAP 2019-03-29 Completed [facility] 00:00:00 [facility] Rho (d) Immune 2019-03-29 Completed [facility] Globulin 00:00:00 [facility] TDAP 2019-03-29 Completed [facility] 00:00:00 [facility] Rho (d) Immune 2019-03-29 Completed [facility] Globulin 00:00:00 [facility] TDAP 2019-03-29 Completed [facility] 00:00:00 [facility] Rho (d) Immune 2019-03-29 Completed [facility] Globulin 00:00:00 [facility] TDAP 2019-03-29 Completed [facility] 00[facility]00:00 [facility] Rho (d) Immune 2019-03-29 Completed [facility] Globulin 00:00:00 [facility] TDAP 2019-03-29 Completed [facility] 00:00:00 [facility] Rho (d) Immune 2019-03-29 Completed [facility] Globulin 00:00:00 [facility] TDAP 2019-03-29 Completed [facility] 00:00:00 [facility] Rho (d) Immune 2019-03-29 Completed [facility] Globulin 00:00:00 [facility] TDAP 2019-03-29 Completed [facility] 00:00:00 [facility] Rho (d) Immune 2019-03-29 Completed [facility] Globulin 00:00:00 [facility] TDAP 2019-03-29 Completed [facility] 00[facility]00:00 [facility] Rho (d) Immune 2019-03-29 Completed [facility] Globulin 00:00:00 [facility] TDAP 2019-03-29 Completed [facility] 00:00:00 [facility] Branch Rho (d) Immune 2019-03-29 Completed [facility] Globulin 00:00:00 [facility] TDAP 2019-03-29 Completed [facility] 00:00:00 [facility] Rho (d) Immune 2019-03-29 Completed [facility] Globulin 00:00:00 [facility] TDAP 2019-03-29 Completed [facility] 00:00:00 [facility] Rho (d) Immune 2019-03-29 Completed [facility] Globulin 00:00:00 [facility] TDAP 2019-03-29 Completed [facility] 00:00:00 [facility] Rho (d) Immune 2019-03-29 Completed [facility] Globulin 00:00:00 [facility] TDAP 2019-03-29 Completed [facility] 00[facility]00:00 [facility] Rho (d) Immune 2019-03-29 Completed [facility] Globulin 00:00:00 [facility] TDAP 2019-03-29 Completed [facility] 00:00:00 [facility] Rho (d) Immune 2019-03-29 Completed [facility] Globulin 00:00:00 [facility] TDAP 2019-03-29 Completed [facility] 00[facility]00:00 [facility] Rho (d) Immune 2019-03-29 Completed [facility] Globulin 00:00:00 [facility] TDAP 2019-03-29 Completed [facility] 00[facility]00:00 [facility] Rho (d) Immune 2019-03-29 Completed [facility] Globulin 00:00:00 [facility] TDAP 2019-03-29 Completed [facility] 00:00:00 [facility] Rho (d) Immune 2019-03-29 Completed [facility] Globulin 00:00:00 [facility] TDAP 2019-03-29 Completed [facility] 00:00:00 [facility] Rho (d) Immune 2019-03-29 Completed [facility] Globulin 00:00:00 [facility] TDAP 2019-03-29 Completed [facility] 00:00:00 [facility] Branch Rho (d) Immune 2019-03-29 Completed [facility] Globulin 00:00:00 [facility] TDAP 2019-03-29 Completed [facility] 00:00:00 [facility] Branch Rho (d) Immune 2019-03-29 Completed [facility] Globulin 00:00:00 [facility] TDAP 2019-03-29 Completed [facility] 00:00:00 [facility] Rho (d) Immune 2019-03-29 Completed [facility] Globulin 00:00:00 [facility] TDAP 2019-03-29 Completed [facility] 00:00:00 [facility] Rho (d) Immune 2019-03-29 Completed [facility] Globulin 00:00:00 [facility] TDAP 2019-03-29 Completed [facility] 00:00:00 [facility] Rho (d) Immune 2019-03-29 Completed [facility] Globulin 00:00:00 [facility] TDAP 2019-03-29 Completed [facility] 00:00:00 [facility] Rho (d) Immune 2019-03-29 Completed [facility] Globulin 00:00:00 [facility] TDAP 2019-03-29 Completed [facility] 00:00:00 [facility] Rho (d) Immune 2019-03-29 Completed [facility] Globulin 00:00:00 [facility] TDAP 2019-03-29 Completed [facility] 00[facility]00:00 [facility] Rho (d) Immune 2019-03-29 Completed [facility] Globulin 00:00:00 [facility] TDAP 2019-03-29 Completed [facility] 00:00:00 [facility] Rho (d) Immune 2019-03-29 Completed [facility] Globulin 00:00:00 [facility] TDAP 2019-03-29 Completed [facility] 00:00:00 [facility] Rho (d) Immune 2019-03-29 Completed [facility] Globulin 00:00:00 [facility] TDAP 2019-03-29 Completed [facility] 00:00:00 [facility] Rho (d) Immune 2019-03-29 Completed [facility] Globulin 00:00:00 [facility] TDAP 2019-03-29 Completed [facility] 00[facility]00:00 [facility] Rho (d) Immune 2019-03-29 Completed [facility] Globulin 00:00:00 [facility] TDAP 2019-03-29 Completed [facility] 00:00:00 [facility] Rho (d) Immune 2019-03-29 Completed [facility] Globulin 00:00:00 [facility] TDAP 2019-03-29 Completed [facility] 00:00:00 [facility] Rho (d) Immune 2019-03-29 Completed [facility] Globulin 00:00:00 [facility] TDAP 2019-03-29 Completed [facility] 00:00:00 [facility] Rho (d) Immune 2019-03-29 Completed [facility] Globulin 00:00:00 [facility] TDAP 2019-03-29 Completed [facility] 00:00:00 [facility] Rho (d) Immune 2019-03-29 Completed [facility] Globulin 00:00:00 [facility] Tdap 2019-03-29 Completed [facility] 00:00:00 [facility] Rho (d) Immune 2019-03-29 Completed [facility] Globulin 00:00:00 [facility] Tdap 2019-03-29 Completed [facility] 00[facility]00:00 [facility] Rho (d) Immune 2019-03-29 Completed [facility] Globulin 00:00:00 [facility] Tdap 2019-03-29 Completed [facility] 00:00:00 [facility] Rho (d) Immune 2019-03-29 Completed [facility] Globulin 00:00:00 [facility] Tdap 2019-03-29 Completed [facility] 00[facility]00:00 [facility] Rho (d) Immune 2019-03-29 Completed [facility] Globulin 00:00:00 [facility] Tdap 2019-03-29 Completed [facility] 00:00:00 [facility] Rho (d) Immune 2019-03-29 Completed [facility] Globulin 00:00:00 [facility] Tdap 2019-03-29 Completed [facility] 00:00:00 [facility] Rho (d) Immune 2019-03-29 Completed [facility] Globulin 00:00:00 [facility] Tdap 2019-03-29 Completed [facility] 00:00:00 [facility] Rho (d) Immune 2019-03-29 Completed [facility] Globulin 00:00:00 [facility] Tdap 2019-03-29 Completed [facility] 00[facility]00:00 [facility] Rho (d) Immune 2019-03-29 Completed [facility] Globulin 00:00:00 [facility] Influenza Virus 2018-10-20 Completed [facility] y [facility] Vaccine [facility] .5 mL 00:00:00 [facility] Influenza Virus 2018-10-20 Completed [facility] y of Vaccine [facility] .5 mL 00:00:00 [facility] Influenza Virus 2018-10-20 Completed [facility] y of Vaccine [facility] .5 mL 00:00:00 [facility] Influenza Virus 2018-10-20 Completed [facility] y of Vaccine [facility] .5 mL 00:00:00 [facility] IM 6+ MO [facility] Influenza Virus 2018-10-20 Completed [facility] y of Vaccine Quad .5 mL 00:00:00 [facility] 6[facility] Influenza Virus 2018-10-20 Completed [facility] y of Vaccine Quad .5 mL 00:00:00 [facility] 6[facility] Influenza Virus 2018-10-20 Completed [facility] y of Vaccine Quad .5 mL 00:00:00 [facility] 6[facility] Influenza Virus 2018-10-20 Completed [facility] y of Vaccine [facility] .5 mL 00:00:00 [facility] 6[facility] Influenza Virus 2018-10-20 Completed [facility] y of Vaccine [facility] .5 mL 00:00:00 [facility] 6[facility] Influenza Virus 2018-10-20 Completed [facility] y of Vacc[facility] Quad .5 mL 00:00:00 [facility] 6[facility] Influenza Virus 2018-10-20 Completed [facility] y of Vaccine Quad .5 mL 00:00:00 [facility] MO [facility] Influenza Virus 2018-10-20 Completed [facility] y of Vaccine Quad .5 mL 00:00:00 [facility] 6[facility] Influenza Virus 2018-10-20 Completed [facility] y of Vaccine Quad .5 mL 00:00:00 [facility] 6[facility] Influenza Virus 2018-10-20 Completed [facility] y of Vaccine Quad .5 mL 00:00:00 [facility] MO [facility] Influenza Virus 2018-10-20 Completed [facility] y of Vaccine Quad .5 mL 00:00:00 [facility] 6+ MO [facility] Influenza Virus 2018-10-20 Completed [facility] y of Vaccine Quad .5 mL 00:00:00 [facility] 6[facility] MO [facility] Influenza Virus 2018-10-20 Completed [facility] y of Vaccine Quad .5 mL 00:00:00 [facility] 6[facility] Influenza Virus 2018-10-20 Completed [facility] y of Vaccine Quad .5 mL 00:00:00 [facility] 6[facility] Influenza Virus 2018-10-20 Completed [facility] y of Vaccine Quad .5 mL 00:00:00 [facility] 6[facility] Influenza Virus 2018-10-20 Completed [facility] y of Vaccine Quad .5 mL 00:00:00 [facility] 6[facility] Influenza Virus 2018-10-20 Completed [facility] y of Vaccine Quad .5 mL 00:00:00 [facility] 6[facility] Influenza Virus 2018-10-20 Completed [facility] y of Vaccine Quad .5 mL 00:00:00 [facility] 6[facility] Influenza Virus 2018-10-20 Completed [facility] y of Vaccine Quad .5 mL 00:00:00 [facility] 6[facility] Influenza Virus 2018-10-20 Completed [facility] y of Vaccine Quad .5 mL 00:00:00 [facility] 6[facility] Influenza Virus 2018-10-20 Completed [facility] y of Vaccine Quad .5 mL 00:00:00 [facility] 6[facility] Influenza Virus 2018-10-20 Completed [facility] y of Vaccine Quad .5 mL 00:00:00 [facility] 6[facility] Influenza Virus 2018-10-20 Completed [facility] y of Vaccine Quad .5 mL 00:00:00 [facility] 6[facility] Influenza Virus 2018-10-20 Completed [facility] y of Vaccine Quad .5 mL 00:00:00 [facility] 6[facility] Influenza Virus 2018-10-20 Completed [facility] y [facility] Vaccine Quad .5 mL 00:00:00 [facility] 6[facility] MO [facility] Influenza Virus 2018-10-20 Completed [facility] y of Vaccine Quad .5 mL 00:00:00 [facility] 6[facility] MO [facility] Influenza Virus 2018-10-20 Completed [facility] y of Vaccine Quad .5 mL 00:00:00 [facility] 6[facility] Influenza Virus 2018-10-20 Completed [facility] y [facility] Vaccine Quad .5 mL 00:00:00 [facility] 6[facility] MO [facility] Influenza Virus 2018-10-20 Completed [facility] y [facility] Vaccine Quad .5 mL 00:00:00 [facility] 6[facility] MO [facility] Influenza Virus 2018-10-20 Completed [facility] y of Vaccine Quad .5 mL 00:00:00 [facility] 6[facility] MO [facility] Influenza Virus 2018-10-20 Completed [facility] y of Vaccine Quad .5 mL 00:00:00 [facility] 6[facility] MO [facility] Influenza Virus 2018-10-20 Completed [facility] y of Vaccine Quad .5 mL 00:00:00 [facility] 6[facility] MO [facility] Influenza Virus 2018-10-20 Completed [facility] y of Vaccine Quad .5 mL 00:00:00 [facility] 6[facility] MO [facility] Influenza Virus 2018-10-20 Completed [facility] y [facility] Vaccine Quad .5 mL 00:00:00 [facility] 6[facility] MO [facility] Influenza Virus 2018-10-20 Completed [facility] y [facility] Vaccine Quad .5 mL 00:00:00 [facility] 6[facility] MO [facility] Influenza Virus 2018-10-20 Completed [facility] y of Vaccine Quad .5 mL 00:00:00 [facility] 6[facility] MO [facility] Influenza Virus 2018-10-20 Completed [facility] y of Vaccine Quad .5 mL 00:00:00 [facility] 6[facility] MO [facility] Influenza Virus 2018-10-20 Completed [facility] y of Vaccine Quad .5 mL 00:00:00 [facility] 6[facility] MO [facility] Influenza Virus 2018-10-20 Completed [facility] y of Vaccine Quad .5 mL 00:00:00 [facility] 6[facility] MO [facility] Influenza Virus 2018-10-20 Completed [facility] y [facility] Vaccine Quad .5 mL 00:00:00 [facility] 6[facility] MO [facility] Influenza Virus 2018-10-20 Completed [facility] y of Vaccine Quad .5 mL 00:00:00 [facility] 6[facility] MO [facility] Influenza Virus 2018-10-20 Completed [facility] y of Vaccine Quad .5 mL 00:00:00 [facility] 6[facility] MO [facility] Influenza Virus 2018-10-20 Completed [facility] y of Vaccine Quad .5 mL 00:00:00 [facility] 6[facility] MO [facility] Influenza Virus 2018-10-20 Completed [facility] y of Vaccine Quad .5 mL 00:00:00 [facility] 6[facility] MO [facility] Influenza Virus 2018-10-20 Completed [facility] y of Vaccine Quad .5 mL 00:00:00 [facility] 6[facility] MO [facility] Influenza Virus 2018-10-20 Completed [facility] y of Vaccine Quad .5 mL 00:00:00 [facility] 6[facility] MO [facility] Influenza Virus 2018-10-20 Completed [facility] y of Vaccine Quad .5 mL 00:00:00 [facility] 6[facility] MO [facility] Influenza Virus 2018-10-20 Completed [facility] y of Vaccine Quad .5 mL 00:00:00 [facility] 6[facility] MO [facility] Influenza Virus 2018-10-20 Completed [facility] y [facility] Vaccine Quad .5 mL 00:00:00 [facility] 6[facility] MO [facility] Influenza Virus 2018-10-20 Completed [facility] y of Vaccine Quad .5 mL 00:00:00 [facility] 6[facility] MO [facility] Influenza Virus 2018-10-20 Completed [facility] y [facility] Vaccine Quad .5 mL 00:00:00 [facility] 6[facility] MO [facility] Influenza Virus 2018-10-20 Completed [facility] y [facility] Vaccine Quad .5 mL 00:00:00 [facility] 6[facility] MO [facility] Influenza Virus 2018-10-20 Completed [facility] y [facility] Vaccine Quad .5 mL 00:00:00 [facility] 6[facility] MO [facility] Influenza Virus 2018-10-20 Completed [facility] y of Vaccine Quad .5 mL 00:00:00 [facility] 6[facility] MO [facility] Influenza Virus 2018-10-20 Completed [facility] y of Vaccine Quad .5 mL 00:00:00 [facility] 6[facility] MO [facility] Influenza Virus 2018-10-20 Completed [facility] y of Vaccine Quad .5 mL 00:00:00 [facility] 6[facility] MO [facility] Influenza Virus 2018-10-20 Completed [facility] y [facility] Vaccine Quad .5 mL 00:00:00 [facility] 6[facility] MO [facility] Influenza Virus 2018-10-20 Completed [facility] y [facility] Vaccine Quad .5 mL 00:00:00 [facility] 6+ MO [facility] Influenza Virus 2018-10-20 Completed [facility] y of Vaccine Quad .5 mL 00:00:00 [facility] 6+ MO [facility] Influenza Virus 2018-10-20 Completed [facility] y [facility] Vaccine Quad .5 mL 00:00:00 [facility] 6[facility] Influenza Virus 2018-10-20 Completed [facility] y [facility] Vaccine Quad .5 mL 00:00:00 [facility] 6+ MO [facility] Influenza Virus 2018-10-20 Completed [facility] y [facility] Vaccine Quad .5 mL 00:00:00 [facility] 6+ MO [facility] Influenza Virus 2018-10-20 Completed [facility] y [facility] Vaccine Quad .5 mL 00:00:00 [facility] 6+ MO [facility] Influenza Virus 2018-10-20 Completed [facility] y [facility] Vaccine Quad .5 mL 00:00:00 [facility] 6+ MO [facility] Influenza Virus 2018-10-20 Completed [facility] y [facility] Vaccine Quad .5 mL 00:00:00 [facility] 6[facility] MO [facility] Influenza Virus 2018-10-20 Completed [facility] y [facility] Vaccine Quad .5 mL 00:00:00 [facility] 6[facility] MO [facility] Influenza Virus 2018-10-20 Completed [facility] y of Vaccine Quad .5 mL 00:00:00 [facility] 6[facility] MO [facility] Influenza Virus 2018-10-20 Completed [facility] y [facility] Vaccine Quad .5 mL 00:00:00 [facility] 6[facility] MO [facility] Influenza Virus 2018-10-20 Completed [facility] y [facility] Vaccine Quad .5 mL 00:00:00 [facility] 6[facility] Influenza Virus 2018-10-20 Completed [facility] y [facility] Vaccine Quad .5 mL 00:00:00 [facility] 6[facility] MO [facility] Influenza Virus 2018-10-20 Completed [facility] y [facility] Vaccine Quad .5 mL 00:00:00 [facility] 6[facility] Influenza Virus 2018-10-20 Completed [facility] y of Vaccine Quad .5 mL 00:00:00 [facility] 6[facility] MO [facility] Influenza Virus 2018-10-20 Completed [facility] y [facility] Vaccine Quad .5 mL 00:00:00 [facility] 6[facility] MO [facility] Influenza Virus 2018-10-20 Completed [facility] y [facility] Vaccine Quad .5 mL 00:00:00 [facility] 6[facility] MO [facility] Influenza Virus 2018-10-20 Completed [facility] Vaccine Quad .5 mL 00:00:00 [facility] 6[facility] Influenza Virus 2018-10-20 Completed [facility] Vaccine Quad .5 mL 00:00:00 [facility] 6[facility] MO [facility] Influenza Virus 2018-10-20 Completed [facility] y [facility] Vaccine Quad .5 mL 00:00:00 [facility] 6[facility] Influenza Virus 2018-10-20 Completed [facility] y [facility] Vaccine Quad .5 mL 00:00:00 [facility] 6[facility] MO [facility] Influenza Virus 2018-10-20 Completed [facility] y [facility] Vaccine Quad .5 mL 00:00:00 [facility] 6+ MO [facility] Influenza Virus 2018-10-20 Completed [facility] Vaccine Quad .5 mL 00:00:00 [facility] 6+ MO [facility] Influenza Virus 2018-10-20 Completed [facility] y [facility] Vaccine Quad .5 mL 00:00:00 [facility] 6[facility] MO [facility] Influenza Virus 2018-10-20 Completed [facility] y [facility] Vaccine Quad .5 mL 00:00:00 [facility] 6[facility] Influenza Virus 2018-10-20 Completed [facility] Vaccine Quad .5 mL 00:00:00 [facility] 6[facility] Influenza Virus 2018-10-20 Completed [facility] y [facility] Vaccine Quad .5 mL 00:00:00 [facility] 6[facility] Influenza Virus 2018-10-20 Completed [facility] Vaccine Quad .5 mL 00:00:00 [facility] 6[facility] Influenza Virus 2018-10-20 Completed [facility] Vaccine Quad .5 mL 00:00:00 [facility] 6[facility] Influenza Virus 2018-10-20 Completed [facility] y [facility] Vaccine Quad .5 mL 00:00:00 [facility] 6[facility] Influenza Virus 2018-10-20 Completed [facility] Vaccine Quad .5 mL 00:00:00 [facility] Influenza Virus 2018-10-20 Completed [facility] y [facility] Vaccine Quad .5 mL 00:00:00 [facility] 6[facility] Influenza Virus 2018-10-20 Completed [facility] Vaccine Quad .5 mL 00:00:00 [facility] 6[facility] Influenza Virus 2018-10-20 Completed [facility] y [facility] Vaccine Quad .5 mL 00:00:00 [facility] 6[facility] Influenza Virus 2018-10-20 Completed [facility] .5 mL 00:00:00 [facility] Influenza Virus 2018-10-20 Completed [facility] Vaccine Quad .5 mL 00:00:00 [facility] 6[facility] Influenza Virus 2018-10-20 Completed [facility] .5 mL 00:00:00 [facility] 6[facility] Influenza Virus 2018-10-20 Completed [facility] Vaccine [facility] .5 mL 00:00:00 [facility] 6[facility] Influenza Virus 2018-10-20 Completed [facility] .5 mL 00:00:00 [facility] 6[facility] Influenza Virus 2018-10-20 Completed [facility] .5 mL 00:00:00 [facility] 6[facility] Influenza Virus 2018-10-20 Completed [facility] .5 mL 00:00:00 [facility] 6[facility] Influenza Virus 2018-10-20 Completed [facility] Vacc[facility] .5 mL 00:00:00 [facility] 6[facility] Influenza Virus 2018-10-20 Completed [facility] .5 mL 00:00:00 [facility] 6[facility] Influenza Virus 2018-10-20 Completed [facility] Vacc[facility] .5 mL 00:00:00 [facility] 6[facility] Influenza Virus 2018-10-20 Completed [facility] .5 mL 00:00:00 [facility] 6[facility] Influenza Virus 2018-10-20 Completed [facility] Vacc[facility] .5 mL 00:00:00 [facility] Influenza Virus 2018-10-20 Completed [facility] .5 mL 00:00:00 [facility] HPV9 2018-07-11 Completed [facility] 00:00:00 [facility] HPV9 2018-07-11 Completed [facility] 00:00:00 [facility] HPV9 2018-07-11 Completed [facility] 00:00:00 [facility] HPV9 2018-07-11 Completed [facility] 00:00:00 [facility] HPV9 2018-07-11 Completed [facility] 00:00:00 [facility] HPV9 2018-07-11 Completed [facility] 00:00:00 [facility] HPV9 2018-07-11 Completed [facility] 00:00:00 [facility] HPV9 2018-07-11 Completed [facility] 00:00:00 [facility] HPV9 2018-07-11 Completed [facility] 00:00:00 [facility] HPV9 2018-07-11 Completed [facility] 00:00:00 [facility] HPV9 2018-07-11 Completed [facility] 00:00:00 [facility] HPV9 2018-07-11 Completed [facility] 00:00:00 [facility] HPV9 2018-07-11 Completed [facility] 00:00:00 [facility] HPV9 2018-07-11 Completed [facility] 00:00:00 [facility] HPV9 2018-07-11 Completed [facility] 00:00:00 [facility] HPV9 2018-07-11 Completed [facility] 00:00:00 [facility] HPV9 2018-07-11 Completed [facility] 00:00:00 [facility] HPV9 2018-07-11 Completed [facility] 00:00:00 [facility] HPV9 2018-07-11 Completed [facility] 00:00:00 [facility] HPV9 2018-07-11 Completed [facility] 00:00:00 [facility] HPV9 2018-07-11 Completed [facility] 00:00:00 [facility] HPV9 2018-07-11 Completed [facility] 00:00:00 [facility] HPV9 2018-07-11 Completed [facility] 00:00:00 [facility] HPV9 2018-07-11 Completed [facility] 00:00:00 [facility] HPV9 2018-07-11 Completed [facility] 00:00:00 [facility] HPV9 2018-07-11 Completed [facility] 00:00:00 [facility] HPV9 2018-07-11 Completed [facility] 00:00:00 [facility] HPV9 2018-07-11 Completed [facility] 00:00:00 [facility] HPV9 2018-07-11 Completed [facility] 00:00:00 [facility] HPV9 2018-07-11 Completed [facility] 00:00:00 [facility] HPV9 2018-07-11 Completed [facility] 00:00:00 [facility] HPV9 2018-07-11 Completed [facility] 00:00:00 [facility] HPV9 2018-07-11 Completed [facility] 00:00:00 [facility] HPV9 2018-07-11 Completed [facility] 00:00:00 [facility] HPV9 2018-07-11 Completed [facility] 00:00:00 [facility] HPV9 2018-07-11 Completed [facility] 00:00:00 [facility] HPV9 2018-07-11 Completed [facility] 00:00:00 [facility] HPV9 2018-07-11 Completed [facility] 00:00:00 [facility] HPV9 2018-07-11 Completed [facility] 00[facility]00:00 [facility] HPV9 2018-07-11 Completed [facility] 00:00:00 [facility] HPV9 2018-07-11 Completed [facility] 00:00:00 [facility] HPV9 2018-07-11 Completed [facility] 00:00:00 [facility] HPV9 2018-07-11 Completed [facility] 00:00:00 [facility] HPV9 2018-07-11 Completed [facility] 00:00:00 [facility] HPV9 2018-07-11 Completed [facility] 00:00:00 [facility] HPV9 2018-07-11 Completed [facility] 00:00:00 [facility] HPV9 2018-07-11 Completed [facility] 00:00:00 [facility] HPV9 2018-07-11 Completed [facility] 00:00:00 [facility] HPV9 2018-07-11 Completed [facility] 00:00:00 [facility] HPV9 2018-07-11 Completed [facility] 00:00:00 [facility] HPV9 2018-07-11 Completed [facility] 00:00:00 [facility] HPV9 2018-07-11 Completed [facility] 00:00:00 [facility] HPV9 2018-07-11 Completed [facility] 00:00:00 [facility] HPV9 2018-07-11 Completed [facility] 00:00:00 [facility] HPV9 2018-07-11 Completed [facility] 00:00:00 [facility] HPV9 2018-07-11 Completed [facility] 00:00:00 [facility] HPV9 2018-07-11 Completed [facility] 00:00:00 [facility] HPV9 2018-07-11 Completed [facility] 00:00:00 [facility] HPV9 2018-07-11 Completed [facility] 00:00:00 [facility] HPV9 2018-07-11 Completed [facility] 00:00:00 [facility] HPV9 2018-07-11 Completed [facility] 00:00:00 [facility] HPV9 2018-07-11 Completed [facility] 00:00:00 [facility] HPV9 2018-07-11 Completed [facility] 00:00:00 [facility] HPV9 2018-07-11 Completed [facility] 00:00:00 [facility] HPV9 2018-07-11 Completed [facility] 00:00:00 [facility] HPV9 2018-07-11 Completed [facility] 00:00:00 [facility] HPV9 2018-07-11 Completed [facility] 00:00:00 [facility] HPV9 2018-07-11 Completed [facility] 00:00:00 [facility] HPV9 2018-07-11 Completed [facility] 00:00:00 [facility] HPV9 2018-07-11 Completed [facility] 00:00:00 [facility] HPV9 2018-07-11 Completed [facility] 00:00:00 [facility] HPV9 2018-07-11 Completed [facility] 00:00:00 [facility] HPV9 2018-07-11 Completed [facility] 00:00:00 [facility] HPV9 2018-07-11 Completed [facility] 00:00:00 [facility] HPV9 2018-07-11 Completed [facility] 00:00:00 [facility] HPV9 2018-07-11 Completed [facility] 00:00:00 [facility] HPV9 2018-07-11 Completed [facility] 00:00:00 [facility] HPV9 2018-07-11 Completed [facility] 00:00:00 [facility] HPV9 2018-07-11 Completed [facility] 00:00:00 [facility] HPV9 2018-07-11 Completed [facility] 00:00:00 [facility] HPV9 2018-07-11 Completed [facility] 00:00:00 [facility] HPV9 2018-07-11 Completed [facility] 00:00:00 [facility] HPV9 2018-07-11 Completed [facility] 00:00:00 [facility] HPV9 2018-07-11 Completed [facility] 00:00:00 [facility] HPV9 2018-07-11 Completed [facility] 00:00:00 [facility] HPV9 2018-07-11 Completed [facility] 00:00:00 [facility] HPV9 2018-07-11 Completed [facility] 00:00:00 [facility] HPV9 2018-07-11 Completed [facility] 00:00:00 [facility] HPV9 2018-07-11 Completed [facility] 00:00:00 [facility] HPV9 2018-07-11 Completed [facility] 00:00:00 [facility] HPV9 2018-07-11 Completed [facility] 00:00:00 [facility] HPV9 2018-07-11 Completed [facility] 00:00:00 [facility] HPV9 2018-07-11 Completed [facility] 00:00:00 [facility] HPV9 2018-07-11 Completed [facility] 00:00:00 [facility] HPV9 2018-07-11 Completed [facility] 00:00:00 [facility] HPV9 2018-07-11 Completed [facility] 00:00:00 [facility] HPV9 2018-07-11 Completed [facility] 00[facility]00:00 [facility] HPV9 2018-07-11 Completed [facility] 00:00:00 [facility] HPV9 2018-07-11 Completed [facility] 00:00:00 [facility] HPV9 2018-07-11 Completed [facility] 00:00:00 [facility] HPV9 2018-07-11 Completed [facility] 00:00:00 [facility] HPV9 2018-07-11 Completed [facility] 00:00:00 [facility] HPV9 2018-07-11 Completed [facility] 00:00:00 [facility] HPV9 2018-07-11 Completed [facility] 00[facility]00:00 [facility] HPV9 2018-07-11 Completed [facility] 00:00:00 [facility] HPV9 2018-07-11 Completed [facility] 00:00:00 [facility] HPV9 2018-07-11 Completed [facility] 00:00:00 [facility] HPV9 2018-07-11 Completed [facility] 00:00:00 [facility] HPV9 2018-06-11 Completed [facility] 00:00:00 [facility] Rho (d) Immune 2018-06-11 Completed [facility] 00:00:00 [facility] HPV9 2018-06-11 Completed [facility] 00:00:00 [facility] Rho (d) Immune 2018-06-11 Completed [facility] 00:00:00 [facility] HPV9 2018-06-11 Completed [facility] 00:00:00 [facility] Rho (d) Immune 2018-06-11 Completed [facility] 00:00:00 [facility] HPV9 2018-06-11 Completed [facility] 00:00:00 [facility] Rho (d) Immune 2018-06-11 Completed [facility] 00:00:00 [facility] HPV9 2018-06-11 Completed [facility] 00:00:00 [facility] Rho (d) Immune 2018-06-11 Completed [facility] 00:00:00 [facility] HPV9 2018-06-11 Completed [facility] 00:00:00 [facility] Rho (d) Immune 2018-06-11 Completed [facility] 00:00:00 [facility] HPV9 2018-06-11 Completed [facility] 00:00:00 [facility] Rho (d) Immune 2018-06-11 Completed [facility] 00:00:00 [facility] HPV9 2018-06-11 Completed [facility] 00:00:00 [facility] Rho (d) Immune 2018-06-11 Completed [facility] 00:00:00 [facility] HPV9 2018-06-11 Completed [facility] 00:00:00 [facility] Rho (d) Immune 2018-06-11 Completed [facility] 00:00:00 [facility] HPV9 2018-06-11 Completed [facility] 00:00:00 [facility] Rho (d) Immune 2018-06-11 Completed [facility] 00:00:00 [facility] HPV9 2018-06-11 Completed [facility] 00:00:00 [facility] Rho (d) Immune 2018-06-11 Completed [facility] 00:00:00 [facility] HPV9 2018-06-11 Completed [facility] 00:00:00 [facility] Rho (d) Immune 2018-06-11 Completed [facility] 00:00:00 [facility] HPV9 2018-06-11 Completed [facility] 00:00:00 [facility] Rho (d) Immune 2018-06-11 Completed [facility] 00:00:00 [facility] HPV9 2018-06-11 Completed [facility] 00:00:00 [facility] Rho (d) Immune 2018-06-11 Completed [facility] 00:00:00 [facility] HPV9 2018-06-11 Completed [facility] 00:00:00 [facility] Rho (d) Immune 2018-06-11 Completed [facility] 00:00:00 [facility] HPV9 2018-06-11 Completed [facility] 00:00:00 [facility] Rho (d) Immune 2018-06-11 Completed [facility] 00:00:00 [facility] HPV9 2018-06-11 Completed [facility] 00:00:00 [facility] Rho (d) Immune 2018-06-11 Completed [facility] 00:00:00 [facility] HPV9 2018-06-11 Completed [facility] 00:00:00 [facility] Rho (d) Immune 2018-06-11 Completed [facility] 00:00:00 [facility] HPV9 2018-06-11 Completed [facility] 00:00:00 [facility] Rho (d) Immune 2018-06-11 Completed [facility] 00:00:00 [facility] HPV9 2018-06-11 Completed [facility] 00:00:00 [facility] Rho (d) Immune 2018-06-11 Completed [facility] 00:00:00 [facility] HPV9 2018-06-11 Completed [facility] 00:00:00 [facility] Rho (d) Immune 2018-06-11 Completed [facility] 00:00:00 [facility] HPV9 2018-06-11 Completed [facility] 00:00:00 [facility] Rho (d) Immune 2018-06-11 Completed [facility] 00:00:00 [facility] HPV9 2018-06-11 Completed [facility] 00:00:00 [facility] Rho (d) Immune 2018-06-11 Completed [facility] 00:00:00 [facility] HPV9 2018-06-11 Completed [facility] 00:00:00 [facility] Rho (d) Immune 2018-06-11 Completed [facility] 00:00:00 [facility] HPV9 2018-06-11 Completed [facility] 00:00:00 [facility] Rho (d) Immune 2018-06-11 Completed [facility] 00:00:00 [facility] HPV9 2018-06-11 Completed [facility] 00:00:00 [facility] Rho (d) Immune 2018-06-11 Completed [facility] 00:00:00 [facility] HPV9 2018-06-11 Completed [facility] 00:00:00 [facility] Rho (d) Immune 2018-06-11 Completed [facility] 00:00:00 [facility] HPV9 2018-06-11 Completed [facility] 00:00:00 [facility] Rho (d) Immune 2018-06-11 Completed [facility] 00:00:00 [facility] HPV9 2018-06-11 Completed [facility] 00:00:00 [facility] Rho (d) Immune 2018-06-11 Completed [facility] Gl[facility] 00:00:00 [facility] HPV9 2018-06-11 Completed [facility] 00:00:00 [facility] Rho (d) Immune 2018-06-11 Completed [facility] 00:00:00 [facility] HPV9 2018-06-11 Completed [facility] 00:00:00 [facility] Rho (d) Immune 2018-06-11 Completed [facility] 00:00:00 [facility] HPV9 2018-06-11 Completed [facility] 00:00:00 [facility] Rho (d) Immune 2018-06-11 Completed [facility] 00:00:00 [facility] HPV9 2018-06-11 Completed [facility] 00:00:00 [facility] Rho (d) Immune 2018-06-11 Completed [facility] 00:00:00 [facility] HPV9 2018-06-11 Completed [facility] 00:00:00 [facility] Rho (d) Immune 2018-06-11 Completed [facility] 00:00:00 [facility] HPV9 2018-06-11 Completed [facility] 00:00:00 [facility] Rho (d) Immune 2018-06-11 Completed [facility] 00:00:00 [facility] HPV9 2018-06-11 Completed [facility] 00:00:00 [facility] Rho (d) Immune 2018-06-11 Completed [facility] 00:00:00 [facility] HPV9 2018-06-11 Completed [facility] 00:00:00 [facility] Rho (d) Immune 2018-06-11 Completed [facility] Gl[facility] 00:00:00 [facility] HPV9 2018-06-11 Completed [facility] 00:00:00 [facility] Rho (d) Immune 2018-06-11 Completed [facility] 00:00:00 [facility] HPV9 2018-06-11 Completed [facility] 00:00:00 [facility] Rho (d) Immune 2018-06-11 Completed [facility] Gl[facility] 00:00:00 [facility] HPV9 2018-06-11 Completed [facility] 00:00:00 [facility] Rho (d) Immune 2018-06-11 Completed [facility] 00:00:00 [facility] HPV9 2018-06-11 Completed [facility] 00:00:00 [facility] Rho (d) Immune 2018-06-11 Completed [facility] 00:00:00 [facility] HPV9 2018-06-11 Completed [facility] 00:00:00 [facility] Rho (d) Immune 2018-06-11 Completed [facility] 00:00:00 [facility] HPV9 2018-06-11 Completed [facility] 00:00:00 [facility] Rho (d) Immune 2018-06-11 Completed [facility] 00:00:00 [facility] HPV9 2018-06-11 Completed [facility] 00:00:00 [facility] Rho (d) Immune 2018-06-11 Completed [facility] 00:00:00 [facility] HPV9 2018-06-11 Completed [facility] 00:00:00 [facility] Rho (d) Immune 2018-06-11 Completed [facility] 00:00:00 [facility] HPV9 2018-06-11 Completed [facility] 00:00:00 [facility] Rho (d) Immune 2018-06-11 Completed [facility] 00:00:00 [facility] HPV9 2018-06-11 Completed [facility] 00:00:00 [facility] Rho (d) Immune 2018-06-11 Completed [facility] 00:00:00 [facility] HPV9 2018-06-11 Completed [facility] 00:00:00 [facility] Rho (d) Immune 2018-06-11 Completed [facility] 00:00:00 [facility] HPV9 2018-06-11 Completed [facility] 00:00:00 [facility] Rho (d) Immune 2018-06-11 Completed [facility] 00:00:00 [facility] HPV9 2018-06-11 Completed [facility] 00:00:00 [facility] Rho (d) Immune 2018-06-11 Completed [facility] 00:00:00 [facility] HPV9 2018-06-11 Completed [facility] 00:00:00 [facility] Rho (d) Immune 2018-06-11 Completed [facility] 00:00:00 [facility] HPV9 2018-06-11 Completed [facility] 00:00:00 [facility] Rho (d) Immune 2018-06-11 Completed [facility] 00:00:00 [facility] HPV9 2018-06-11 Completed [facility] 00:00:00 [facility] Rho (d) Immune 2018-06-11 Completed [facility] 00:00:00 [facility] HPV9 2018-06-11 Completed [facility] 00:00:00 [facility] Rho (d) Immune 2018-06-11 Completed [facility] 00:00:00 [facility] HPV9 2018-06-11 Completed [facility] 00:00:00 [facility] Rho (d) Immune 2018-06-11 Completed [facility] 00:00:00 [facility] HPV9 2018-06-11 Completed [facility] 00:00:00 [facility] Rho (d) Immune 2018-06-11 Completed [facility] 00:00:00 [facility] HPV9 2018-06-11 Completed [facility] 00:00:00 [facility] Rho (d) Immune 2018-06-11 Completed [facility] 00:00:00 [facility] HPV9 2018-06-11 Completed [facility] 00:00:00 [facility] Rho (d) Immune 2018-06-11 Completed [facility] 00:00:00 [facility] HPV9 2018-06-11 Completed [facility] 00:00:00 [facility] Rho (d) Immune 2018-06-11 Completed [facility] 00:00:00 [facility] HPV9 2018-06-11 Completed [facility] 00:00:00 [facility] Rho (d) Immune 2018-06-11 Completed [facility] 00:00:00 [facility] HPV9 2018-06-11 Completed [facility] 00:00:00 [facility] Rho (d) Immune 2018-06-11 Completed [facility] 00:00:00 [facility] HPV9 2018-06-11 Completed [facility] 00:00:00 [facility] Rho (d) Immune 2018-06-11 Completed [facility] 00:00:00 [facility] HPV9 2018-06-11 Completed [facility] 00:00:00 [facility] Rho (d) Immune 2018-06-11 Completed [facility] 00:00:00 [facility] HPV9 2018-06-11 Completed [facility] 00:00:00 [facility] Rho (d) Immune 2018-06-11 Completed [facility] 00:00:00 [facility] HPV9 2018-06-11 Completed [facility] 00:00:00 [facility] Rho (d) Immune 2018-06-11 Completed [facility] 00:00:00 [facility] HPV9 2018-06-11 Completed [facility] 00:00:00 [facility] Rho (d) Immune 2018-06-11 Completed [facility] 00:00:00 [facility] HPV9 2018-06-11 Completed [facility] 00:00:00 [facility] Rho (d) Immune 2018-06-11 Completed [facility] 00:00:00 [facility] HPV9 2018-06-11 Completed [facility] 00:00:00 [facility] Rho (d) Immune 2018-06-11 Completed [facility] 00:00:00 [facility] HPV9 2018-06-11 Completed [facility] 00:00:00 [facility] Rho (d) Immune 2018-06-11 Completed [facility] 00:00:00 [facility] HPV9 2018-06-11 Completed [facility] 00:00:00 [facility] Rho (d) Immune 2018-06-11 Completed [facility] 00:00:00 [facility] HPV9 2018-06-11 Completed [facility] 00:00:00 [facility] Rho (d) Immune 2018-06-11 Completed [facility] 00:00:00 [facility] HPV9 2018-06-11 Completed [facility] 00:00:00 [facility] Rho (d) Immune 2018-06-11 Completed [facility] 00:00:00 [facility] HPV9 2018-06-11 Completed [facility] 00:00:00 [facility] Rho (d) Immune 2018-06-11 Completed [facility] 00:00:00 [facility] HPV9 2018-06-11 Completed [facility] 00:00:00 [facility] Rho (d) Immune 2018-06-11 Completed [facility] 00:00:00 [facility] HPV9 2018-06-11 Completed [facility] 00:00:00 [facility] Rho (d) Immune 2018-06-11 Completed [facility] 00:00:00 [facility] HPV9 2018-06-11 Completed [facility] 00:00:00 [facility] Rho (d) Immune 2018-06-11 Completed [facility] 00:00:00 [facility] HPV9 2018-06-11 Completed [facility] 00:00:00 [facility] Rho (d) Immune 2018-06-11 Completed [facility] 00:00:00 [facility] HPV9 2018-06-11 Completed [facility] 00:00:00 [facility] Rho (d) Immune 2018-06-11 Completed [facility] 00:00:00 [facility] HPV9 2018-06-11 Completed [facility] 00:00:00 [facility] Rho (d) Immune 2018-06-11 Completed [facility] 00:00:00 [facility] HPV9 2018-06-11 Completed [facility] 00:00:00 [facility] Rho (d) Immune 2018-06-11 Completed [facility] 00:00:00 [facility] HPV9 2018-06-11 Completed [facility] 00:00:00 [facility] Rho (d) Immune 2018-06-11 Completed [facility] 00:00:00 [facility] HPV9 2018-06-11 Completed [facility] 00:00:00 [facility] Rho (d) Immune 2018-06-11 Completed [facility] 00:00:00 [facility] HPV9 2018-06-11 Completed [facility] 00:00:00 [facility] Rho (d) Immune 2018-06-11 Completed [facility] 00:00:00 [facility] HPV9 2018-06-11 Completed [facility] 00:00:00 [facility] Rho (d) Immune 2018-06-11 Completed [facility] 00:00:00 [facility] HPV9 2018-06-11 Completed [facility] 00:00:00 [facility] Rho (d) Immune 2018-06-11 Completed [facility] 00:00:00 [facility] HPV9 2018-06-11 Completed [facility] 00:00:00 [facility] Rho (d) Immune 2018-06-11 Completed [facility] 00:00:00 [facility] HPV9 2018-06-11 Completed [facility] 00:00:00 [facility] Rho (d) Immune 2018-06-11 Completed [facility] 00:00:00 [facility] HPV9 2018-06-11 Completed [facility] 00:00:00 [facility] Rho (d) Immune 2018-06-11 Completed [facility] 00:00:00 [facility] HPV9 2018-06-11 Completed [facility] 00:00:00 [facility] Rho (d) Immune 2018-06-11 Completed [facility] 00:00:00 [facility] HPV9 2018-06-11 Completed [facility] 00:00:00 [facility] Rho (d) Immune 2018-06-11 Completed [facility] 00:00:00 [facility] HPV9 2018-06-11 Completed [facility] 00:00:00 [facility] Rho (d) Immune 2018-06-11 Completed [facility] 00:00:00 [facility] HPV9 2018-06-11 Completed [facility] 00:00:00 [facility] Rho (d) Immune 2018-06-11 Completed [facility] 00:00:00 [facility] HPV9 2018-06-11 Completed [facility] 00:00:00 [facility] Rho (d) Immune 2018-06-11 Completed [facility] 00:00:00 [facility] HPV9 2018-06-11 Completed [facility] 00:00:00 [facility] Rho (d) Immune 2018-06-11 Completed [facility] 00:00:00 [facility] HPV9 2018-06-11 Completed [facility] 00:00:00 [facility] Rho (d) Immune 2018-06-11 Completed [facility] 00:00:00 [facility] HPV9 2018-06-11 Completed [facility] 00:00:00 [facility] Rho (d) Immune 2018-06-11 Completed [facility] 00:00:00 [facility] HPV9 2018-06-11 Completed [facility] 00:00:00 [facility] Rho (d) Immune 2018-06-11 Completed [facility] 00:00:00 [facility] HPV9 2018-06-11 Completed [facility] 00:00:00 [facility] Rho (d) Immune 2018-06-11 Completed [facility] 00:00:00 [facility] HPV9 2018-06-11 Completed [facility] 00:00:00 [facility] Rho (d) Immune 2018-06-11 Completed [facility] 00:00:00 [facility] HPV9 2018-06-11 Completed [facility] 00:00:00 [facility] Rho (d) Immune 2018-06-11 Completed [facility] 00:00:00 [facility] HPV9 2018-06-11 Completed [facility] 00:00:00 [facility] Rho (d) Immune 2018-06-11 Completed [facility] 00:00:00 [facility] HPV9 2018-06-11 Completed [facility] 00[facility]00:00 [facility] Rho (d) Immune 2018-06-11 Completed [facility] 00:00:00 [facility] HPV9 2018-06-11 Completed [facility] 00:00:00 [facility] Rho (d) Immune 2018-06-11 Completed [facility] 00:00:00 [facility] HPV9 2018-06-11 Completed [facility] 00:00:00 [facility] Rho (d) Immune 2018-06-11 Completed [facility] 00:00:00 [facility] HPV9 2018-06-11 Completed [facility] 00:00:00 [facility] Rho (d) Immune 2018-06-11 Completed [facility] 00:00:00 [facility] HPV9 2018-06-11 Completed [facility] 00:00:00 [facility] Rho (d) Immune 2018-06-11 Completed [facility] 00[facility]00:00 [facility] 2018-06-11 Completed [facility] [facility] Rho (d) Immune 2018-06-11 Completed [facility] Globulin 00:00:00 [facility] HPV9 2018-06-11 Completed [facility] 00:00:00 [facility] Rho (d) Immune 2018-06-11 Completed [facility] Globulin 00:00:00 [facility] Tdap 2018-04-18 Completed [facility] 00:00:00 [facility] Tdap 2018-04-18 Completed [facility] 00:00:00 [facility] Tdap 2018-04-18 Completed [facility] 00:00:00 [facility] Tdap 2018-04-18 Completed [facility] 00:00:00 [facility] Tdap 2018-04-18 Completed [facility] 00:00:00 [facility] Tdap 2018-04-18 Completed [facility] 00:00:00 [facility] Tdap 2018-04-18 Completed [facility] 00:00:00 [facility] Tdap 2018-04-18 Completed [facility] 00:00:00 [facility] Tdap 2018-04-18 Completed [facility] 00:00:00 [facility] Tdap 2018-04-18 Completed [facility] 00:00:00 [facility] Tdap 2018-04-18 Completed [facility] 00:00:00 [facility] Tdap 2018-04-18 Completed [facility] 00:00:00 [facility] TDAP 2018-04-18 Completed [facility] 00:00:00 [facility] TDAP 2018-04-18 Completed [facility] 00:00:00 [facility] TDAP 2018-04-18 Completed [facility] 00:00:00 [facility] TDAP 2018-04-18 Completed [facility] 00:00:00 [facility] TDAP 2018-04-18 Completed [facility] 00:00:00 [facility] TDAP 2018-04-18 Completed [facility] 00:00:00 [facility] TDAP 2018-04-18 Completed [facility] 00:00:00 [facility] TDAP 2018-04-18 Completed [facility] 00:00:00 [facility] TDAP 2018-04-18 Completed [facility] 00:00:00 [facility] TDAP 2018-04-18 Completed [facility] 00:00:00 [facility] TDAP 2018-04-18 Completed [facility] 00:00:00 [facility] TDAP 2018-04-18 Completed [facility] 00:00:00 [facility] TDAP 2018-04-18 Completed [facility] 00:00:00 [facility] TDAP 2018-04-18 Completed [facility] 00:00:00 [facility] TDAP 2018-04-18 Completed [facility] 00:00:00 [facility] TDAP 2018-04-18 Completed [facility] 00:00:00 [facility] TDAP 2018-04-18 Completed [facility] 00:00:00 [facility] TDAP 2018-04-18 Completed [facility] 00:00:00 [facility] TDAP 2018-04-18 Completed [facility] 00:00:00 [facility] TDAP 2018-04-18 Completed [facility] 00:00:00 [facility] TDAP 2018-04-18 Completed [facility] 00:00:00 [facility] TDAP 2018-04-18 Completed [facility] 00:00:00 [facility] TDAP 2018-04-18 Completed [facility] 00:00:00 [facility] TDAP 2018-04-18 Completed [facility] 00:00:00 [facility] TDAP 2018-04-18 Completed [facility] 00:00:00 [facility] TDAP 2018-04-18 Completed [facility] 00:00:00 [facility] TDAP 2018-04-18 Completed [facility] 00:00:00 [facility] TDAP 2018-04-18 Completed [facility] 00:00:00 [facility] TDAP 2018-04-18 Completed [facility] 00:00:00 [facility] TDAP 2018-04-18 Completed [facility] 00:00:00 [facility] TDAP 2018-04-18 Completed [facility] 00:00:00 [facility] TDAP 2018-04-18 Completed [facility] 00:00:00 [facility] TDAP 2018-04-18 Completed [facility] 00:00:00 [facility] TDAP 2018-04-18 Completed [facility] 00:00:00 [facility] TDAP 2018-04-18 Completed [facility] 00:00:00 [facility] TDAP 2018-04-18 Completed [facility] 00:00:00 [facility] TDAP 2018-04-18 Completed [facility] 00:00:00 [facility] TDAP 2018-04-18 Completed [facility] 00:00:00 [facility] TDAP 2018-04-18 Completed [facility] 00:00:00 [facility] TDAP 2018-04-18 Completed [facility] 00:00:00 [facility] TDAP 2018-04-18 Completed [facility] 00:00:00 [facility] TDAP 2018-04-18 Completed [facility] 00:00:00 [facility] TDAP 2018-04-18 Completed [facility] 00:00:00 [facility] TDAP 2018-04-18 Completed [facility] 00:00:00 [facility] TDAP 2018-04-18 Completed [facility] 00:00:00 [facility] TDAP 2018-04-18 Completed [facility] 00:00:00 [facility] TDAP 2018-04-18 Completed [facility] 00:00:00 [facility] TDAP 2018-04-18 Completed [facility] 00:00:00 [facility] TDAP 2018-04-18 Completed [facility] 00:00:00 [facility] TDAP 2018-04-18 Completed [facility] 00:00:00 [facility] TDAP 2018-04-18 Completed [facility] 00:00:00 [facility] TDAP 2018-04-18 Completed [facility] 00:00:00 [facility] TDAP 2018-04-18 Completed [facility] 00:00:00 [facility] TDAP 2018-04-18 Completed [facility] 00:00:00 [facility] TDAP 2018-04-18 Completed [facility] 00:00:00 [facility] TDAP 2018-04-18 Completed [facility] 00:00:00 [facility] TDAP 2018-04-18 Completed [facility] 00:00:00 [facility] TDAP 2018-04-18 Completed [facility] 00:00:00 [facility] TDAP 2018-04-18 Completed [facility] 00:00:00 [facility] TDAP 2018-04-18 Completed [facility] 00:00:00 [facility] TDAP 2018-04-18 Completed [facility] 00:00:00 [facility] TDAP 2018-04-18 Completed [facility] 00:00:00 [facility] TDAP 2018-04-18 Completed [facility] 00:00:00 [facility] TDAP 2018-04-18 Completed [facility] 00:00:00 [facility] TDAP 2018-04-18 Completed [facility] 00:00:00 [facility] TDAP 2018-04-18 Completed [facility] 00:00:00 [facility] TDAP 2018-04-18 Completed [facility] 00:00:00 [facility] TDAP 2018-04-18 Completed [facility] 00:00:00 [facility] TDAP 2018-04-18 Completed [facility] 00:00:00 [facility] TDAP 2018-04-18 Completed [facility] 00:00:00 [facility] TDAP 2018-04-18 Completed [facility] 00:00:00 [facility] TDAP 2018-04-18 Completed [facility] 00:00:00 [facility] TDAP 2018-04-18 Completed [facility] 00:00:00 [facility] TDAP 2018-04-18 Completed [facility] 00:00:00 [facility] TDAP 2018-04-18 Completed [facility] 00:00:00 [facility] TDAP 2018-04-18 Completed [facility] 00:00:00 [facility] TDAP 2018-04-18 Completed [facility] 00:00:00 [facility] TDAP 2018-04-18 Completed [facility] 00:00:00 [facility] Tdap 2018-04-18 Completed [facility] 00:00:00 [facility] Tdap 2018-04-18 Completed [facility] 00:00:00 [facility] Tdap 2018-04-18 Completed [facility] 00:00:00 [facility] Tdap 2018-04-18 Completed [facility] 00:00:00 [facility] Tdap 2018-04-18 Completed [facility] 00:00:00 [facility] Tdap 2018-04-18 Completed [facility] 00:00:00 [facility] Tdap 2018-04-18 Completed [facility] 00:00:00 [facility] Tdap 2018-04-18 Completed [facility] 00:00:00 [facility] Tdap 2018-04-18 Completed [facility] 00:00:00 [facility] Tdap 2018-04-18 Completed [facility] 00:00:00 [facility] Tdap 2018-04-18 Completed [facility] 00:00:00 [facility] Tdap 2018-04-18 Completed [facility] 00:00:00 [facility] Tdap 2018-04-18 Completed [facility] 00:00:00 [facility] Tdap 2018-04-18 Completed [facility] 00:00:00 [facility] Tdap 2018-04-18 Completed [facility] 00:00:00 [facility] Tdap 2018-04-18 Completed [facility] 00:00:00 [facility] Tdap 2018-04-18 Completed [facility] 00:00:00 [facility] Tdap 2018-04-18 Completed [facility] 00:00:00 [facility] Vital Signs Vital Name Observation Time Observation Value Comments Source Systolic blood 2021-03-27 14:34:00 105 mm[Hg] Univer sity of pressure [facility] Diastolic blood 2021-03-27 14:34:00 68 mm[Hg] Unive rsity of pressure [facility] Heart rate 2021-03-27 14:34:00 130 /min [facility] Body temperature 2021-03-27 14:34:00 37.06 Elida [facility] Respiratory rate 2021-03-27 14:34:00 18 /min [facility] Body weight 2021-03-27 14:34:00 90.719 kg [facility] BMI 2021-03-27 14:34:00 32.28 kg/m2 [facility] Oxygen saturation in 2021-03-27 14:34:00 98 /min [facility] Arterial blood by [facility] Pulse oxim[facility] Systolic blood 2021-03-27 14:34:00 105 mm[Hg] Univer sity of pressure [facility] Diastolic blood 2021-03-27 14:34:00 68 mm[Hg] Unive rsity of pressure [facility] Heart rate 2021-03-27 14:34:00 130 /min [facility] Body temperature 2021-03-27 14:34:00 37.06 Elida [facility] Respiratory rate 2021-03-27 14:34:00 18 /min [facility] Body weight 2021-03-27 14:34:00 90.719 kg [facility] BMI 2021-03-27 14:34:00 32.28 kg/m2 [facility] Oxygen saturation in 2021-03-27 14:34:00 98 /min [facility] Arterial blood by [facility] P[facility] Systolic blood 2021-03-25 21:06:00 112 mm[Hg] Univer sity of pressure [facility] Diastolic blood 2021-03-25 21:06:00 65 mm[Hg] Unive rsity of pressure [facility] Heart rate 2021-03-25 21:06:00 106 /min [facility] Body temperature 2021-03-25 21:06:00 37.17 Elida [facility] Respiratory rate 2021-03-25 21:06:00 16 /min [facility] ersity [facility] Body height 2021-03-25 21:06:00 167.6 cm [facility] Body weight 2021-03-25 21:06:00 88.996 kg [facility] BMI 2021-03-25 21:06:00 31.67 kg/m2 [facility] Systolic blood 2021-03-16 04:35:00 113 mm[Hg] Univer sity of pressure [facility] Diastolic blood 2021-03-16 04:35:00 58 mm[Hg] Unive rsity of pressure [facility] Heart rate 2021-03-16 04:35:00 93 /min [facility] Body temperature 2021-03-16 04:35:00 37.17 Eldia [facility] Respiratory rate 2021-03-16 04:35:00 16 /min [facility] ersity [facility] Oxygen saturation in 2021-03-16 04:35:00 98 /min [facility] Arterial blood by [facility] Body height 2021-03-16 03:51:00 167.6 cm [facility] Body weight 2021-03-16 03:51:00 86.183 kg [facility] BMI 2021-03-16 03:51:00 30.67 kg/m2 [facility] Systolic blood 2021-03-16 04:35:00 113 mm[Hg] Univer sity of pressure [facility] Diastolic blood 2021-03-16 04:35:00 58 mm[Hg] Unive rsity of pressure [facility] Heart rate 2021-03-16 04:35:00 93 /min [facility] Body temperature 2021-03-16 04:35:00 37.17 Elida [facility] Respiratory rate 2021-03-16 04:35:00 16 /min [facility] Oxygen saturation in 2021-03-16 04:35:00 98 /min [facility] Arterial blood by [facility] Pulse oxim[facility] Body height 2021-03-16 03:51:00 167.6 cm [facility] Body weight 2021-03-16 03:51:00 86.183 kg [facility] BMI 2021-03-16 03:51:00 30.67 kg/m2 [facility] Systolic blood 2021-03-04 18:24:00 117 mm[Hg] Univer sity of pressure [facility] Diastolic blood 2021-03-04 18:24:00 73 mm[Hg] Unive rsity of pressure [facility] Heart rate 2021-03-04 18:24:00 99 /min [facility] Body temperature 2021-03-04 18:24:00 36.72 Elida [facility] Respiratory rate 2021-03-04 18:24:00 16 /min [facility] Body height 2021-03-04 18:24:00 167.6 cm [facility] Body weight 2021-03-04 18:24:00 88.111 kg [facility] BMI 2021-03-04 18:24:00 31.35 kg/m2 [facility] Systolic blood 2021-03-04 18:24:00 117 mm[Hg] Univer sity of pressure [facility] Diastolic blood 2021-03-04 18:24:00 73 mm[Hg] Unive rsity of pressure [facility] Heart rate 2021-03-04 18:24:00 99 /min [facility] Body temperature 2021-03-04 18:24:00 36.72 Elida [facility] Respiratory rate 2021-03-04 18:24:00 16 /min [facility] Body height 2021-03-04 18:24:00 167.6 cm [facility] Body weight 2021-03-04 18:24:00 88.111 kg [facility] BMI 2021-03-04 18:24:00 31.35 kg/m2 [facility] Systolic blood 2021-02-18 18:54:00 118 mm[Hg] Univer sity of pressure [facility] Diastolic blood 2021-02-18 18:54:00 72 mm[Hg] Unive rsity of pressure [facility] Heart rate 2021-02-18 18:54:00 86 /min [facility] Body temperature 2021-02-18 18:54:00 36.44 Elida [facility] Respiratory rate 2021-02-18 18:54:00 16 /min [facility] Body height 2021-02-18 18:54:00 167.6 cm [facility] Body weight 2021-02-18 18:54:00 88.905 kg [facility] BMI 2021-02-18 18:54:00 31.64 kg/m2 [facility] Systolic blood 2021-02-18 18:54:00 118 mm[Hg] Univer sity of pressure [facility] Diastolic blood 2021-02-18 18:54:00 72 mm[Hg] Unive rsity of pressure [facility] Heart rate 2021-02-18 18:54:00 86 /min [facility] Body temperature 2021-02-18 18:54:00 36.44 Elida [facility] Respiratory rate 2021-02-18 18:54:00 16 /min [facility] Body height 2021-02-18 18:54:00 167.6 cm [facility] Body weight 2021-02-18 18:54:00 88.905 kg [facility] BMI 2021-02-18 18:54:00 31.64 kg/m2 [facility] Systolic blood 2021-02-11 18:38:00 105 mm[Hg] Univer sity of pressure [facility] Diastolic blood 2021-02-11 18:38:00 61 mm[Hg] Unive rsity of pressure [facility] Heart rate 2021-02-11 18:38:00 82 /min [facility] Body temperature 2021-02-11 18:38:00 36.67 Elida [facility] Respiratory rate 2021-02-11 18:38:00 16 /min [facility] Body height 2021-02-11 18:38:00 167.6 cm [facility] Body weight 2021-02-11 18:38:00 89.903 kg [facility] BMI 2021-02-11 18:38:00 31.99 kg/m2 [facility] Systolic blood 2021-02-04 18:18:00 110 mm[Hg] Univer sity of pressure [facility] Diastolic blood 2021-02-04 18:18:00 61 mm[Hg] Unive rsity of pressure [facility] Heart rate 2021-02-04 18:18:00 85 /min [facility] Body temperature 2021-02-04 18:18:00 37.39 Elida [facility] Respiratory rate 2021-02-04 18:18:00 16 /min [facility] Body height 2021-02-04 18:18:00 167.6 cm [facility] Body weight 2021-02-04 18:18:00 90.447 kg [facility] BMI 2021-02-04 18:18:00 32.18 kg/m2 [facility] Systolic blood 2021-01-28 18:26:00 115 mm[Hg] Univer sity of pressure [facility] Diastolic blood 2021-01-28 18:26:00 69 mm[Hg] Unive rsity of pressure [facility] Heart rate 2021-01-28 18:26:00 93 /min [facility] Body temperature 2021-01-28 18:26:00 36.56 Elida [facility] Respiratory rate 2021-01-28 18:26:00 16 /min [facility] Body height 2021-01-28 18:26:00 167.6 cm [facility] Body weight 2021-01-28 18:26:00 89.529 kg [facility] BMI 2021-01-28 18:26:00 31.86 kg/m2 [facility] Systolic blood 2021-01-22 18:50:00 110 mm[Hg] Univer sity of pressure [facility] Diastolic blood 2021-01-22 18:50:00 63 mm[Hg] Unive rsity of pressure [facility] Heart rate 2021-01-22 18:50:00 74 /min [facility] Body temperature 2021-01-22 18:50:00 37.28 Elida [facility] Respiratory rate 2021-01-22 18:50:00 16 /min [facility] Body height 2021-01-22 18:50:00 167.6 cm [facility] Body weight 2021-01-22 18:50:00 88.724 kg [facility] BMI 2021-01-22 18:50:00 31.57 kg/m2 [facility] Systolic blood 2021-01-15 18:58:00 108 mm[Hg] Univer sity of pressure [facility] Diastolic blood 2021-01-15 18:58:00 74 mm[Hg] Unive rsity of pressure [facility] Heart rate 2021-01-15 18:58:00 100 /min [facility] Body temperature 2021-01-15 18:58:00 37.33 Elida [facility] Respiratory rate 2021-01-15 18:58:00 16 /min [facility] Body height 2021-01-15 18:58:00 167.6 cm [facility] Body weight 2021-01-15 18:58:00 89.177 kg [facility] BMI 2021-01-15 18:58:00 31.73 kg/m2 [facility] Systolic blood 2021-01-07 19:01:00 97 mm[Hg] Univer sity of pressure [facility] Diastolic blood 2021-01-07 19:01:00 67 mm[Hg] Unive rsity of pressure [facility] Heart rate 2021-01-07 19:01:00 83 /min [facility] Body temperature 2021-01-07 19:01:00 36.83 Elida [facility] Respiratory rate 2021-01-07 19:01:00 16 /min [facility] Body height 2021-01-07 19:01:00 167.6 cm [facility] Body weight 2021-01-07 19:01:00 87.771 kg [facility] BMI 2021-01-07 19:01:00 31.23 kg/m2 [facility] Systolic blood 2021-01-01 18:17:00 111 mm[Hg] Univer sity of pressure [facility] Diastolic blood 2021-01-01 18:17:00 55 mm[Hg] Unive rsity of pressure [facility] Heart rate 2021-01-01 18:17:00 103 /min [facility] Body temperature 2021-01-01 18:17:00 36.67 Elida [facility] Respiratory rate 2021-01-01 18:17:00 24 /min [facility] Body height 2021-01-01 18:17:00 167.6 cm [facility] Body weight 2021-01-01 18:17:00 88.225 kg [facility] BMI 2021-01-01 18:17:00 31.39 kg/m2 [facility] Systolic blood 2020-12-24 19:41:00 124 mm[Hg] Univer sity of pressure [facility] Diastolic blood 2020-12-24 19:41:00 77 mm[Hg] Unive rsity of pressure [facility] Heart rate 2020-12-24 19:41:00 93 /min [facility] Body temperature 2020-12-24 19:41:00 36.67 Elida [facility] Respiratory rate 2020-12-24 19:41:00 16 /min [facility] Body height 2020-12-24 19:41:00 167.6 cm [facility] Body weight 2020-12-24 19:41:00 89.268 kg [facility] BMI 2020-12-24 19:41:00 31.76 kg/m2 [facility] Systolic blood 2020-12-19 00:29:00 105 mm[Hg] Univer sity of pressure [facility] Diastolic blood 2020-12-19 00:29:00 42 mm[Hg] Unive rsity of pressure [facility] Heart rate 2020-12-19 00:29:00 65 /min [facility] Body temperature 2020-12-19 00:29:00 36.67 Elida [facility] Respiratory rate 2020-12-19 00:29:00 18 /min [facility] Body height 2020-12-19 00:29:00 167.6 cm [facility] Body weight 2020-12-19 00:29:00 88.905 kg [facility] BMI 2020-12-19 00:29:00 31.64 kg/m2 [facility] Systolic blood 2020-12-17 19:38:00 119 mm[Hg] Univer sity of pressure [facility] Diastolic blood 2020-12-17 19:38:00 64 mm[Hg] Unive rsity of pressure [facility] Heart rate 2020-12-17 19:38:00 79 /min [facility] Body temperature 2020-12-17 19:38:00 36.56 Elida [facility] Respiratory rate 2020-12-17 19:38:00 16 /min [facility] Body height 2020-12-17 19:38:00 167.6 cm [facility] Body weight 2020-12-17 19:38:00 89.449 kg [facility] BMI 2020-12-17 19:38:00 31.83 kg/m2 [facility] Systolic blood 2020-12-10 18:51:00 107 mm[Hg] Univer sity of pressure [facility] Diastolic blood 2020-12-10 18:51:00 63 mm[Hg] Unive rsity of pressure [facility] Heart rate 2020-12-10 18:51:00 62 /min [facility] Body temperature 2020-12-10 18:51:00 36.78 Elida [facility] Respiratory rate 2020-12-10 18:51:00 16 /min [facility] Body height 2020-12-10 18:51:00 167.6 cm [facility] Body weight 2020-12-10 18:51:00 87.232 kg [facility] BMI 2020-12-10 18:51:00 31.04 kg/m2 [facility] Systolic blood 2020-12-03 16:08:00 108 mm[Hg] Univer sity of pressure [facility] Diastolic blood 2020-12-03 16:08:00 63 mm[Hg] Unive rsity of pressure [facility] Heart rate 2020-12-03 16:08:00 90 /min [facility] Body temperature 2020-12-03 16:08:00 36.61 Elida [facility] Respiratory rate 2020-12-03 16:08:00 18 /min [facility] Body height 2020-12-03 16:08:00 167.6 cm [facility] Body weight 2020-12-03 16:08:00 88.179 kg [facility] BMI 2020-12-03 16:08:00 31.38 kg/m2 [facility] Systolic blood 2020-11-26 18:13:00 108 mm[Hg] Univer sity of pressure [facility] Diastolic blood 2020-11-26 18:13:00 59 mm[Hg] Unive rsity of pressure [facility] Heart rate 2020-11-26 18:13:00 72 /min [facility] Body temperature 2020-11-26 18:13:00 37 Elida [facility] Respiratory rate 2020-11-26 18:13:00 16 /min [facility] Body height 2020-11-26 18:13:00 167.6 cm [facility] Body weight 2020-11-26 18:13:00 88.225 kg [facility] BMI 2020-11-26 18:13:00 31.39 kg/m2 [facility] Systolic blood 2020-11-19 18:45:00 112 mm[Hg] Univer sity of pressure [facility] Diastolic blood 2020-11-19 18:45:00 63 mm[Hg] Unive rsity of pressure [facility] Heart rate 2020-11-19 18:45:00 61 /min [facility] Body temperature 2020-11-19 18:45:00 36.28 Elida [facility] Respiratory rate 2020-11-19 18:45:00 16 /min [facility] Body height 2020-11-19 18:45:00 167.6 cm [facility] Body weight 2020-11-19 18:45:00 88.14 kg [facility] BMI 2020-11-19 18:45:00 31.36 kg/m2 [facility] Systolic blood 2020-11-12 18:58:00 118 mm[Hg] Univer sity of pressure [facility] Diastolic blood 2020-11-12 18:58:00 67 mm[Hg] Unive rsity of pressure [facility] Heart rate 2020-11-12 18:58:00 85 /min [facility] Body temperature 2020-11-12 18:58:00 36.72 Elida [facility] [facility] Respiratory rate 2020-11-12 18:58:00 16 /min [facility] Body height 2020-11-12 18:58:00 167.6 cm [facility] Body weight 2020-11-12 18:58:00 88.622 kg [facility] BMI 2020-11-12 18:58:00 31.53 kg/m2 [facility] Systolic blood 2020-10-15 20:07:00 109 mm[Hg] [facility] Diastolic blood 2020-10-15 20:07:00 70 mm[Hg] [facility] Heart rate 2020-10-15 20:07:00 74 /min [facility] Body temperature 2020-10-15 20:07:00 36.72 Elida [facility] Respiratory rate 2020-10-15 20:07:00 16 /min [facility] Body height 2020-10-15 20:07:00 167.6 cm [facility] Body weight 2020-10-15 20:07:00 84.823 kg [facility] BMI 2020-10-15 20:07:00 30.18 kg/m2 [facility] Systolic blood 2020-09-17 21:57:00 103 mm[Hg] [facility] Diastolic blood 2020-09-17 21:57:00 62 mm[Hg] [facility] Heart rate 2020-09-17 21:57:00 73 /min [facility] Body temperature 2020-09-17 21:57:00 37.11 Elida [facility] Respiratory rate 2020-09-17 21:57:00 16 /min [facility] Body height 2020-09-17 21:57:00 167.6 cm [facility] Body weight 2020-09-17 21:57:00 85.531 kg [facility] BMI 2020-09-17 21:57:00 30.43 kg/m2 [facility] Systolic blood 2020-08-20 19:03:00 119 mm[Hg] [facility] Diastolic blood 2020-08-20 19:03:00 82 mm[Hg] [facility] Heart rate 2020-08-20 19:03:00 79 /min [facility] Body temperature 2020-08-20 19:03:00 36.72 Elida [facility] Respiratory rate 2020-08-20 19:03:00 16 /min [facility] Body height 2020-08-20 19:03:00 167.6 cm [facility] Body weight 2020-08-20 19:03:00 87.204 kg [facility] BMI 2020-08-20 19:03:00 31.03 kg/m2 [facility] Systolic blood 2020-06-04 20:48:00 124 mm[Hg] [facility] Diastolic blood 2020-06-04 20:48:00 62 mm[Hg] [facility] Heart rate 2020-06-04 20:48:00 90 /min [facility] Body temperature 2020-06-04 20:48:00 36.17 Elida [facility] Respiratory rate 2020-06-04 20:48:00 16 /min [facility] Body height 2020-06-04 20:48:00 167.6 cm [facility] Body weight 2020-06-04 20:48:00 85.276 kg [facility] BMI 2020-06-04 20:48:00 30.34 kg/m2 [facility] Systolic blood 2020-04-01 21:05:00 130 mm[Hg] [facility] Diastolic blood 2020-04-01 21:05:00 74 mm[Hg] [facility] Heart rate 2020-04-01 21:05:00 95 /min [facility] Body temperature 2020-04-01 21:05:00 37.5 Elida [facility] Respiratory rate 2020-04-01 21:05:00 16 /min [facility] Body height 2020-04-01 21:05:00 167.6 cm [facility] Body weight 2020-04-01 21:05:00 86.75 kg [facility] BMI 2020-04-01 21:05:00 30.87 kg/m2 [facility] Systolic blood 2020-03-22 05:00:00 105 mm[Hg] [facility] Diastolic blood 2020-03-22 05:00:00 72 mm[Hg] [facility] Heart rate 2020-03-22 05:00:00 67 /min [facility] Respiratory rate 2020-03-22 05:00:00 18 /min [facility] Oxygen saturation in 2020-03-22 04:00:00 99 /min [facility]ial blood by [facility] carlos [facility] Body temperature 2020-03-22 03:49:00 37 Elida [facility] Body height 2020-03-22 03:49:00 167.6 cm [facility] Body weight 2020-03-22 03:49:00 86.183 kg [facility] BMI 2020-03-22 03:49:00 30.67 kg/m2 [facility] Systolic blood 2020-02-26 23:57:00 110 mm[Hg] [facility] Diastolic blood 2020-02-26 23:57:00 78 mm[Hg] [facility] Heart rate 2020-02-26 23:57:00 87 /min [facility] Respiratory rate 2020-02-26 23:57:00 18 /min [facility] Oxygen saturation in 2020-02-26 23:57:00 100 /min [facility] Arterial blood by [facility] carlos [facility] Body temperature 2020-02-26 21:35:00 37 Elida [facility] Body weight 2020-02-26 21:35:00 86.183 kg [facility] Systolic blood 2019-10-05 21:05:00 129 mm[Hg] [facility] Diastolic blood 2019-10-05 21:05:00 57 mm[Hg] [facility] Heart rate 2019-10-05 21:05:00 100 /min [facility] Body temperature 2019-10-05 21:05:00 36.56 Elida [facility] Respiratory rate 2019-10-05 21:05:00 16 /min [facility] Body height 2019-10-05 21:05:00 167.6 cm [facility] Body weight 2019-10-05 21:05:00 86.694 kg [facility] BMI 2019-10-05 21:05:00 30.85 kg/m2 [facility] Systolic blood 2019-09-20 20:30:00 118 mm[Hg] [facility] Diastolic blood 2019-09-20 20:30:00 65 mm[Hg] [facility] Heart rate 2019-09-20 20:30:00 87 /min [facility] Body temperature 2019-09-20 20:30:00 36.28 Leida [facility] Respiratory rate 2019-09-20 20:30:00 18 /min [facility] Body height 2019-09-20 20:30:00 167.6 cm [facility] Body weight 2019-09-20 20:30:00 87.176 kg [facility] BMI 2019-09-20 20:30:00 31.02 kg/m2 [facility] Systolic blood 2019-09-18 20:23:00 123 mm[Hg] [facility] Diastolic blood 2019-09-18 20:23:00 61 mm[Hg] [facility] Heart rate 2019-09-18 20:23:00 73 /min [facility] Body temperature 2019-09-18 20:23:00 36.61 Elida [facility] Respiratory rate 2019-09-18 20:23:00 16 /min [facility] Body height 2019-09-18 20:23:00 167.6 cm [facility] Body weight 2019-09-18 20:23:00 86.24 kg [facility] BMI 2019-09-18 20:23:00 30.69 kg/m2 [facility] Systolic blood 2019-04-24 15:56:00 99 mm[Hg] [facility] Diastolic blood 2019-04-24 15:56:00 61 mm[Hg] [facility] Heart rate 2019-04-24 15:56:00 70 /min [facility] Body temperature 2019-04-24 15:56:00 36.72 Elida [facility] Respiratory rate 2019-04-24 15:56:00 16 /min [facility] Body weight 2019-04-24 15:56:00 84 kg [facility] BMI 2019-04-24 15:56:00 29.89 kg/m2 [facility] Systolic blood 2019-04-17 18:14:00 117 mm[Hg] [facility] Diastolic blood 2019-04-17 18:14:00 61 mm[Hg] [facility] Heart rate 2019-04-17 18:14:00 74 /min [facility] Body temperature 2019-04-17 18:14:00 36.56 Elida [facility] Respiratory rate 2019-04-17 18:14:00 16 /min [facility] Body height 2019-04-17 18:14:00 167.6 cm [facility] Body weight 2019-04-17 18:14:00 83.632 kg [facility] BMI 2019-04-17 18:14:00 29.76 kg/m2 [facility] Heart rate 2019-04-19 01:15:00 92 /min [facility] Oxygen saturation in 2019-04-19 01:15:00 99 /min [facility] Arterial blood by [facility] Pulse oximetry Branch Systolic blood 2019-04-19 00:43:00 112 mm[Hg] [facility] Diastolic blood 2019-04-19 00:43:00 66 mm[Hg] [facility] Body temperature 2019-04-19 00:43:00 36.94 Elida [facility] Respiratory rate 2019-04-19 00:43:00 18 /min Univ [facility] Body height 2019-04-19 00:43:00 167.6 cm [facility] Body weight 2019-04-19 00:43:00 83.462 kg [facility] BMI 2019-04-19 00:43:00 29.70 kg/m2 [facility] Systolic blood 2019-04-14 06:50:00 116 mm[Hg] [facility] Diastolic blood 2019-04-14 06:50:00 65 mm[Hg] [facility] Heart rate 2019-04-14 06:50:00 90 /min [facility] Body temperature 2019-04-14 06:50:00 36.61 Elida [facility] Respiratory rate 2019-04-14 06:50:00 18 /min [facility] Body height 2019-04-14 06:50:00 167.6 cm [facility] Body weight 2019-04-14 06:50:00 83.008 kg [facility] BMI 2019-04-14 06:50:00 29.54 kg/m2 [facility] Oxygen saturation in 2019-04-14 06:50:00 100 /min [facility] Arterial blood by [facility] Pulse oximetry Branch Systolic blood 2019-04-10 19:21:00 114 mm[Hg] [facility] Diastolic blood 2019-04-10 19:21:00 57 mm[Hg] [facility] Heart rate 2019-04-10 19:21:00 93 /min [facility] Body temperature 2019-04-10 19:21:00 36.78 Elida [facility] Respiratory rate 2019-04-10 19:21:00 16 /min [facility] Body height 2019-04-10 19:21:00 167.6 cm [facility] Body weight 2019-04-10 19:21:00 83.178 kg [facility] BMI 2019-04-10 19:21:00 29.60 kg/m2 [facility] Systolic blood 2019-04-03 16:55:00 117 mm[Hg] [facility] Diastolic blood 2019-04-03 16:55:00 65 mm[Hg] [facility] Heart rate 2019-04-03 16:55:00 79 /min [facility] Body temperature 2019-04-03 16:55:00 36.56 Elida [facility] Respiratory rate 2019-04-03 16:55:00 16 /min [facility] Body height 2019-04-03 16:55:00 167.6 cm [facility] Body weight 2019-04-03 16:55:00 83.178 kg [facility] BMI 2019-04-03 16:55:00 29.60 kg/m2 [facility] Systolic blood 2019-03-29 18:46:00 131 mm[Hg] [facility] Diastolic blood 2019-03-29 18:46:00 77 mm[Hg] [facility] Heart rate 2019-03-29 18:46:00 94 /min [facility] Body temperature 2019-03-29 18:46:00 37.11 Elida [facility] Respiratory rate 2019-03-29 18:46:00 16 /min [facility] Body height 2019-03-29 18:46:00 167.6 cm [facility] Body weight 2019-03-29 18:46:00 82.781 kg [facility] BMI 2019-03-29 18:46:00 29.46 kg/m2 [facility] Systolic blood 2019-03-27 15:18:00 109 mm[Hg] [facility] Diastolic blood 2019-03-27 15:18:00 56 mm[Hg] [facility] Heart rate 2019-03-27 15:18:00 83 /min [facility] Body temperature 2019-03-27 15:18:00 36.28 Elida [facility] Respiratory rate 2019-03-27 15:18:00 16 /min [facility] Body height 2019-03-27 15:18:00 167.6 cm [facility] Body weight 2019-03-27 15:18:00 83.122 kg [facility] BMI 2019-03-27 15:18:00 29.58 kg/m2 [facility] Systolic blood 2019-03-20 15:42:00 116 mm[Hg] [facility] Diastolic blood 2019-03-20 15:42:00 55 mm[Hg] [facility] Heart rate 2019-03-20 15:42:00 76 /min [facility] Body temperature 2019-03-20 15:42:00 36.11 Elida [facility] Respiratory rate 2019-03-20 15:42:00 16 /min [facility] Body height 2019-03-20 15:42:00 167.6 cm [facility] Body weight 2019-03-20 15:42:00 83.235 kg [facility] BMI 2019-03-20 15:42:00 29.62 kg/m2 [facility] Systolic blood 2019-03-20 15:12:00 116 mm[Hg] [facility] Diastolic blood 2019-03-20 15:12:00 55 mm[Hg] [facility] Heart rate 2019-03-20 15:12:00 76 /min [facility] Body temperature 2019-03-20 15:12:00 36.11 Elida [facility] Respiratory rate 2019-03-20 15:12:00 16 /min [facility] Body height 2019-03-20 15:12:00 167.6 cm [facility] Body weight 2019-03-20 15:12:00 83.235 kg [facility] BMI 2019-03-20 15:12:00 29.62 kg/m2 [facility] Systolic blood 2019-03-15 14:57:00 112 mm[Hg] [facility] Diastolic blood 2019-03-15 14:57:00 59 mm[Hg] [facility] Heart rate 2019-03-15 14:57:00 66 /min [facility] Body temperature 2019-03-15 14:57:00 36.39 Elida [facility] Respiratory rate 2019-03-15 14:57:00 18 /min [facility] Body height 2019-03-15 14:57:00 167.6 cm [facility] Body weight 2019-03-15 14:57:00 84.482 kg [facility] BMI 2019-03-15 14:57:00 30.06 kg/m2 [facility] Systolic blood 2019-03-13 14:51:00 122 mm[Hg] [facility] Diastolic blood 2019-03-13 14:51:00 65 mm[Hg] [facility] Heart rate 2019-03-13 14:51:00 90 /min [facility] Body temperature 2019-03-13 14:51:00 36.39 Elida [facility] Respiratory rate 2019-03-13 14:51:00 16 /min [facility] Body height 2019-03-13 14:51:00 167.6 cm [facility] Body weight 2019-03-13 14:51:00 83.519 kg [facility] BMI 2019-03-13 14:51:00 29.72 kg/m2 [facility] Systolic blood 2019-03-06 14:12:00 112 mm[Hg] [facility] Diastolic blood 2019-03-06 14:12:00 52 mm[Hg] [facility] Heart rate 2019-03-06 14:12:00 83 /min [facility] Body temperature 2019-03-06 14:12:00 36.72 Elida [facility] Respiratory rate 2019-03-06 14:12:00 16 /min [facility] Body height 2019-03-06 14:12:00 167.6 cm [facility] Body weight 2019-03-06 14:12:00 83.632 kg [facility] BMI 2019-03-06 14:12:00 29.76 kg/m2 [facility] Systolic blood 2019-02-20 15:54:00 117 mm[Hg] [facility] Diastolic blood 2019-02-20 15:54:00 76 mm[Hg] [facility] Heart rate 2019-02-20 15:54:00 83 /min [facility] Body temperature 2019-02-20 15:54:00 36.39 Elida [facility] Respiratory rate 2019-02-20 15:54:00 16 /min [facility] Body height 2019-02-20 15:54:00 167.6 cm [facility] Body weight 2019-02-20 15:54:00 81.364 kg [facility] BMI 2019-02-20 15:54:00 28.95 kg/m2 [facility] Procedures Procedure Date / Time Performing Clinician Source Performed CONSENT/REFUSAL FOR 2021-03-27 14:24:33 Doctor Unaleana, [facility] DIAGNOSIS AND TREATMENT [facility] WOUND CULTURE 2021-03-25 22:12:00 Marilu Doran [facility] CBC WITH DIFF 2021-03-25 21:07:00 Marilu Doran [facility] GROUP B STREPTOCOCCUS BY 2021-03-25 21:07:00 [facility] SARS-COV-2 IGG 2021-03-25 21:07:00 Marilu Doran [facility] LAB ONLY COVID 2021-03-25 21:07:[address] [facility] INTERPRETATION [facility] NOTICE OF PRIVACY 2021-03-16 02:55:00 Doctor Maritza, [facility]/REFUSAL FOR 2021-03-16 02:54:44 Doctor Maritza [facility] DI[facility]NOSIS [facility] PO[facility] URINALYSIS 2021-03-04 18:26:00 Molina Pavon [facility] POCT URINALYSIS 2021-02-18 18:55:00 Molina Pavon [facility] POCT URINALYSIS 2021-02-04 18:19:00 Molina Pavon [facility] HB ABO GROUPING 2021-01-28 18:45:00 Molina Pavon [facility] TDAP VACCINE, >11 YRS, IM 2021-01-28 18:41:00 Molina Pavon [facility] POCT URINALYSIS 2021-01-28 18:28:00 Molina Pavon [facility] HIV 1/2 AG-AB WITH REFLEX 2021-01-28 18:21:00 Molina Pavon [facility] GALV ONLY - SYPHILIS 2021-01-28 18:21:00 [facility] GLUCOSE 1 HOUR POST 2021-01-15 20:04:00 Molina Pavon [facility] CBC WITH DIFF 2021-01-15 20:04:00 Molina Pavon [facility] POCT URINALYSIS 2021-01-07 19:04:00 Molina Pavon [facility] CONSENT/REFUSAL FOR 2020-12-18 23:48:00 Doctor Unassigned, [facility] DIAGNOSIS AND TREATMENT [facility] POCT URINALYSIS 2020-12-10 19:37:00 Molina Pavon [facility] POCT URINALYSIS 2020-11-12 18:59:00 Molina Pavon [facility] POCT URINALYSIS 2020-10-15 20:09:00 Molina Pavon [facility] MEDICATION CORRESPONDENCE 2020-10-09 06:01:00 Doctor Unassigned, [facility] Name [facility] EXTERNAL PROVIDER RECORDS 2020-09-29 06:01:00 Doctor Unassigned, [facility] Name [facility] POCT URINALYSIS 2020-09-17 22:04:00 Molina Pavon [facility] GC & CHLAMYDIA AMPLIFIED 2020-08-20 20:23:[address] [facility] ASSAY [facility] GLUCOSE 1 HOUR POST 2020-08-20 20:06:00 Molina Pavon Uni [facility] CBC WITH DIFF 2020-08-20 20:06:00 Molina Pavon [facility] RUBELLA SCREEN IGG 2020-08-20 20:06:00 Molina Pavon [facility] VZV ANTIBODY SCREEN 2020-08-20 20:06:00 Molina Pavon Uni [facility] HEPATITIS B SURFACE 2020-08-20 20:06:00 Molina Pavon [facility] ANTIGEN [facility] HB ABO GROUPING 2020-08-20 20:06:00 Molina Pavon [facility] HIV 1/2 AG-AB WITH REFLEX 2020-08-20 20:06:00 Molina Pavon [facility] GALV ONLY - SYPHILIS 2020-08-20 20:06:00 [facility] SARS-COV-2 IGG 2020-08-20 20:06:00 Molina Pavon [facility] LAB ONLY COVID 2020-08-20 20:06:00 Molina Pavon [facility] INTERPRETATION [facility] POCT TEST 2020-08-20 18:57:00 Molina Pavon [facility] POCT URINALYSIS W/O 2020-08-20 18:57:00 Molina Pavon [facility] SPECIFIC GRAVITY [facility] FLU VACC ([id number]), 6+ 2020-06-04 20:53:[address] [facility] MONTHS, IM, QUAD [facility] POCT TEST 2020-03-22 04:03:00 [facility]. METABOLIC PANEL 2020-03-22 04:02:00 Lenin Samaniego [facility] ([id number]) [facility] CBC WITH DIFF 2020-03-22 04:02:00 Lenin Samaniego [facility] URINALYSIS 2020-03-22 04:02:00 Lenin Samaniego [facility] CONSENT/REFUSAL FOR 2020-03-22 03:39:54 Doctor Unassigned, [facility] DIAGNOSIS AND TREATMENT [facility] US PELVIS COMPLETE WITH 2020-02-26 22:53:36 Evangelist Bonner [facility] TRANSVAGINAL [facility] COMP. METABOLIC PANEL 2020-02-26 22:12:00 Evangelist Bonner [facility] ([id number]) [facility] CBC WITH DIFF 2020-02-26 22:12:00 Evangelist Bonnre [facility] URINALYSIS 2020-02-26 22:12:00 Evangelist Bonner [facility] POCT TEST 2020-02-26 22:12:00 Evangelist [facility] ASSIGNMENT OF BENEFITS 2020-02-26 21:29:30 Doctor Unassigned, [facility] POCT TEST 2019-10-05 21:24:00 Molina Pavon [facility] DISCLOSURE AND CONSENT, 2019-10-05 06:01:00 Doctor Unassnora, [facility] MEDICAL AND SURGICAL [facility] PROCEDURES POCT TEST 2019-09-20 20:34:00 Molina Pavon [facility] GARDASIL 9 (HPV 9V) 2019-09-18 21:05:38 Molina Pavon [facility] VACCINE [facility] ASSIGNMENT OF BENEFITS 2019-04-19 00:26:57 Doctor Unassigned, [facility] NOTICE OF PRIVACY 2019-04-19 00:26:18 Doctor Maritza, [facility] PRACTICES [facility] CONSENT/REFUSAL FOR 2019-04-19 00:25:59 Doctor Maritza, [facility] DIAGNOSIS AND TREATMENT [facility] URINE CULTURE 2019-04-17 18:50:00 Molina Pavon [facility] ANTI-D R/O PANEL 2019-04-17 18:46:00 Molina Pavon [facility] WORKUP, BLOOD 2019-04-17 18:46:00 Molina Pavon [facility] POCT URINALYSIS 2019-04-17 18:15:00 Molina Pavon [facility] ASSIGNMENT OF BENEFITS 2019-04-14 06:35:28 Doctor [facility]igned, [facility] [place] [facility] NOTICE OF PRIVACY 2019-04-14 06:34:52 Doctor Unassigned, [facility] PRACTICES [facility] GALV ONLY - SYPHILIS 2019-03-29 20:14:00 Marilu Doran [facility] IGG/IGM [facility] HIV 1/2 AG-AB WITH REFLEX 2019-03-29 19:53:00 Marilu Doran [facility] TDAP VACCINE, >11 YRS, IM 2019-03-29 19:23:41 Marilu Doran [facility] POCT URINALYSIS 2019-03-29 18:46:00 Molina Pavon [facility] POCT URINALYSIS 2019-03-15 14:59:00 Molina Pavon [facility] Encounters Start End Encounter Admission Attending Care Care Encounter Source Date/Time Date/Time Type Type Clinicians Facility Department ID 2021-06-[address] [facility] [id number] [facility] 16:54:59 ity [facility] 2021-06-[address] [facility] [id number] Univers 13:57:39 ity [facility] 2021-06-07 Outpatient P [facility] ALON[facility] [id number] Univers 19:02:11 ity of [facility] 2021-06-07 Outpatient P [facility] ALONSO [id number] Univers 19:01:53 ity of [facility] 2021-06-[address] [facility] [id number] Univers 12:38:55 ity of [facility] 2021-06-[address] [facility] [id number] Univers 08:01:28 ity [facility] 2021-05-28 2021-05-[address] [facility] [id number] Univers 13:45:00 13:45:00 [id number] ity of [facility] 2021-05-28 2021-05-[address] [facility] [id number] Univers 13:45:00 13:45:00 ity [facility] 2021-05-19 2021-05-19 Outpatient R JOSEF, [facility] [id number] Univers 09:15:00 09:15:00 AMANDA [id number] ity [facility] 2021-05-19 2021-05-19 Outpatient R JOSEF, [facility] [id number] Univers 09:15:00 09:15:00 AMANDA [facility] 2021-04-14 2021-04-14 Telephone Gonzalez MORAN 1.2.840.114 [id number] Univers 00:00:00 00:00:00 JANNA leyva 350.1.13.10 [facility] 4.2.7.2.[address] [facility] [id number] [address] 2021-04-13 2021-04-13 Outpatient INDUCTION, [facility] [id number] [id number] Univers 19:00:00 19:00:00 LUISA [id number] [facility] 2021-04-07 2021-04-09 Inpatient P IVAN, [facility] ALONSO [id number] Univers 21:59:00 13:51:00 HERON [facility] 2021-04-09 2021-04-09 Outpatient R AKINSIPE, [facility] [id number] Univers 13:00:00 13:00:00 MOLINA [id number] ity o [facility] 2021-04-09 2021-04-09 Outpatient R AKINSIPE, [facility] [id number] Univers 13:00:00 13:00:00 MOLINA ity o [facility] 2021-04-01 2021-04-01 Outpatient R AKINSIPE, [facility] [id number] Univers 08:45:00 08:45:00 MOLINA [id number] ity o [facility] 2021-04-01 2021-04-01 Outpatient R AKINSIPE, [facility] [id number] Univers 08:45:00 08:45:00 MOLINA ity o [facility] 2021-03-29 2021-03-29 Telephone Librado, [facility] 1.2.840.114 [id number] Univers 00:00:00 00:00:00 Molina Kearney TOOL HARDENER 350.1.13.10 ity of [facility] 4.2.7.2.686 Man as MATERNAL [id number] [facility] ical & CHILD [address] [place] [address] 2021-03-27 2021-03-27 Emergency John, [facility] 1.2.818.283 [id number] 09:34:00 10:19:00 Miah Amoston 350.1.13.10 [place] 4.2.7.2.686 [place] [id number] [facility] 2021-03-27 2021-03-27 Emergency John, [facility] 1.2.821.814 [id number] Univers 09:34:00 10:19:00 Maihboaz Amoston 350.1.13.10 i ty of [place].2.7.2.686 [place] [id number] [facility] 084 Siren 2021-03-27 2021-03-27 Orders Doctor LUISA 1.2.840.114 [id number] 00:00:00 00:00:00 Only Unassigned, JANNA 350.1.13.10 [facility] 4.2.7.2.686 [id number] 2021-03-27 2021-03-27 Orders Doctor LUISA 1.2.840.114 [id number] Univers 00:00:00 00:00:00 Only Unassigned, JANNA 350.1.13.10 ity of [place] [facility] 4.2.7.2.686 Man as [phone] [facility] 009 Siren 2021-03-25 2021-03-25 Routine Risk, Ojo-Ageax-Tp/High [facility] 1. 2.840.114 [id number] Univers 15:32:35 16:37:00 Marilu Doran TOOL HARDENER 350.1.13.10 ity of Visit [facility] 4.2.7.2.686 Man as MATERNAL [id number] [facility] ical & CHILD [address] [place] [address] 2021-03-25 2021-03-[address] [facility] [id number] Univers 15:30:00 15:30:00 [id number] ity [facility] 2021-03-25 2021-03-[address] [facility] [id number] Univers 15:30:00 15:30:00 ity [facility] 2021-03-18 2021-03-18 Outpatient R AKINKEVIN, [facility] [id number] Univers 13:30:00 13:30:00 MOLINA [id number] ity o f [facility] 2021-03-18 2021-03-18 Outpatient R LIBRADO, [facility] [id number] Univers 13:30:00 13:30:00 MOLINA ity o [facility] 2021-03-15 2021-03-16 Emergency [facility] 1.2.840.114 [id number] 22:55:00 00:07:00 Cholo Vasquez 350.1.13.10 [place] 4.2.7.2.686 [place] [id number] [facility] 2021-03-15 2021-03-16 Emergency IndraRUST 1.2.840.114 [id number] Univers 22:55:00 00:07:00 Cholo Amoston 350.1.13.10 [facility] 4.2.7.2.686 [facility] [id number] [address] 2021-03-11 2021-03-[address] [facility] [id number] Univers 13:30:00 13:30:00 [id number] ity [facility] 2021-03-11 2021-03-[address] [facility] [id number] Univers 13:30:00 [facility]:30:[facility] 2021-03-04 2021-03-04 Routine Librado, [facility] 1.2.259.047 [id number] 13:16:42 13:49:49 Molina Kearney TOOL HARDENER 350.1.13.10 Visit [facility] 4.2.7.2.686 MATERNAL [id number] & CHILD [address] [place] [address] 2021-03-04 2021-03-04 Routine Akinanape, [facility] 1.2.003.539 [id number] Univers 13:16:42 13:49:49 Molina C TOOL HARDENER 350.1.13.10 ity of Visit REGIONAL 4.2.7.2.686 Man as MATERNAL [id number] [facility] & CHILD [address] [place] [address] 2021-03-04 2021-03-04 Outpatient R AKINSIPE, [facility] [id number] Univers 13:15:00 13:15:00 MOLINA [id number] ity o f [facility] 2021-03-04 2021-03-04 Outpatient R AKINSIPE, [facility] [id number] Univers 13:15:00 13:15:00 MOLINA ity o f [facility] 2021-03-02 2021-03-[address] [facility] [id number] Univers 14:30:00 14:30:00 [id number] ity of [facility] 2021-03-02 2021-03-[address] [facility] [id number] Univers 14:30:00 14:30:00 ity of [facility] 2021-02-25 2021-02-[address] [facility] [id number] Univers 12:45:00 12:45:00 [id number] ity of [facility] 2021-02-25 2021-02-[address] [facility] [id number] Univers 12:45:00 12:45:00 ity [facility] 2021-02-18 2021-02-18 Routine Akinsipe, [facility] 1.2.888.221 [id number] Univers 13:28:35 14:29:08 Molina C TOOL HARDENER 350.1.13.10 ity of Visit REGIONAL 4.2.7.2.686 Man as MATERNAL [id number] [facility] & CHILD [address] [place] [address] 2021-02-18 2021-02-18 Routine Akinsipe, [facility] 1.2.566.227 [id number] 13:28:35 14:29:08 Molina C TOOL HARDENER 350.1.13.10 Visit REGIONAL 4.2.7.2.686 MATERNAL [id number] & CHILD [address] [place] [address] 2021-02-18 2021-02-18 Outpatient R AKINSIPE, [facility] [id number] Univers 13:15:00 13:15:00 MOLINA [id number] ity o f [facility] 2021-02-18 2021-02-18 Outpatient R AKINSIPE, [facility] [id number] Univers 13:15:00 13:15:00 MOLINA ity o f [facility] 2021-02-11 2021-02-11 Outpatient R AKINSIPE, [facility] [id number] Univers 15:45:00 15:45:00 MOLINA [id number] ity o f [facility] 2021-02-11 2021-02-11 Outpatient R AKINSIPE, [facility] [id number] Univers 15:45:00 15:45:00 MOLINA ity o [facility] 2021-02-11 2021-02-11 Nurse Visit, [facility] Nurse [facility] 1.2 .840.114 [id number] Univers 13:10:22 13:25:22 Visit Molina Pavon C TOOL HARDENER 350.1.13. 10 ity of REGIONAL 4.2.7.2.686 Man as MATERNAL [id number] [facility] ical & CHILD [address] [place] [address] 2021-02-11 2021-02-[address] [facility] [id number] Univers 08:30:00 08:30:00 ity [facility] 2021-02-04 2021-02-04 Routine Librado, [facility] 1.2.156.517 [id number] Univers 12:50:04 13:47:28 Molina C TOOL HARDENER 350.1.13.10 ity of Visit REGIONAL 4.2.7.2.686 Man as MATERNAL [id number] [facility] & CHILD [address] [place] [address] 2021-02-04 2021-02-[address] [facility] [id number] Univers 12:45:00 12:45:00 [id number] ity [facility] 2021-02-04 2021-02-[address] [facility] [id number] Univers 12:45:00 12:45:00 ity [facility] 2021-01-28 2021-01-28 Routine LibradoRUST 1.2.576.346 [id number] Univers 13:07:23 14:00:04 Molina C TOOL HARDENER 350.1.13.10 ity of Visit REGIONAL 4.2.7.2.686 Man as MATERNAL [id number] [facility] & CHILD [address] [place] [address] 2021-01-28 2021-01-28 [facility] [id number] [id number]-20 Univers 13:00:00 13:00:00 MOLINA [id number] ity o [facility] 2021-01-28 2021-01-28 [facility] [id number] Univers 13:00:00 13:00:00 MOLINA ity o [facility] 2021-01-22 2021-01-22 Nurse Visit, Arvind Nurse [facility] 1.2 .840.114 [id number] Univers 13:32:06 13:56:46 Visit Molina Pavon TOOL HARDENER 350.1.13. 10 ity of REGIONAL 4.2.7.2.686 Man as MATERNAL [id number] [address] 2021-01-22 2021-01-[address] [facility] [id number] Univers 13:30:00 13:30:00 [id number] ity of [facility] 2021-01-22 2021-01-[address] [facility] [id number] Univers 13:30:00 13:30:00 ity of [facility] 2021-01-16 2021-01-16 Telephone PamelazoraidaRUST 1.2.840.114 [id number] Univers 00:00:00 00:00:00 Molina C TOOL HARDENER 350.1.13.10 ity of REGIONAL 4.2.7.2.686 Man as MATERNAL [id number] [facility] & CHILD [address] [place] [address] 2021-01-15 2021-01-15 [facility] 1.2 .840.114 [id number] Univers 13:44:54 14:08:48 Visit Librado Molina Kearney TOOL HARDENER 350.1.13. 10 ity of [facility] 4.2.7.2.686 Man as MATERNAL [id number] [facility] & CHILD [address] [place] [address] 2021-01-15 2021-01-[address] [facility] [id number] Univers 13:30:00 13:30:00 [id number] ity [facility] 2021-01-15 2021-01-15 [facility] [id number] Univers 13:30:00 13:30:00 MOLINA ity o [facility] 2021-01-14 2021-01-[address] [facility] [id number] Univers 09:00:00 09:00:00 [id number] ity [facility] 2021-01-14 2021-01-[address] [facility] [id number] Univers 09:00:00 09:00:00 ity [facility] 2021-01-14 2021-01-14 Telephone [facility] 1.2.840.114 [id number] Univers 00:00:00 00:00:00 Molina Christel TOOL HARDENER 350.1.13.10 ity of [facility] 4.2.7.2.686 Man as MATERNAL [id number] [address] 2021-01-07 2021-01-07 Routine [facility] 1.2.714.109 [id number] Univers 13:50:51 14:21:33 Molina C TOOL HARDENER 350.1.13.10 ity of Visit REGIONAL 4.2.7.2.686 Man as MATERNAL [id number] [facility] & [address] 2021-01-07 2021-01-07 [facility] [id number] Univers 14:00:00 14:00:00 MOLINA [id number] ity o f [facility] 2021-01-07 2021-01-07 [facility] [id number] Univers 14:00:00 14:00:00 MOLINA ity o f [facility] 2021-01-01 2021-01-01 Nurse Visit, Daryn-Adap Nurse [facility] 1.2 .840.114 [id number] Univers 13:08:36 13:37:19 Visit Molina Pavon TOOL HARDENER 350.1.13. 10 ity of [facility] 4.2.7.2.686 Man as MATERNAL [id number] [facility] & CHILD [address] [place] [address] 2021-01-01 2021-01-[address] [facility] [id number] Univers 13:30:00 13:30:00 [id number] ity [facility] 2021-01-01 2021-01-[address] [facility] [id number] Univers 13:30:00 13:30:00 ity [facility] 2020-12-31 2020-12-[address] [facility] [id number] Univers 13:30:00 13:30:00 [id number] ity [facility] 2020-12-31 2020-12-[address] [facility] [id number] Univers 13:30:00 13:30:00 ity [facility] 2020-12-24 2020-12-24 Nurse Visit, Arvind Nurse [facility] 1.2 .840.114 [id number] Univers 14:21:35 14:59:58 Visit Molina Pavon TOOL HARDENER 350.1.13. 10 ity of [facility] 4.2.7.2.686 Man as MATERNAL [phone] [facility] & CHILD [address] [place] [address] 2020-12-24 2020-12-[address] [facility] [id number] Univers 13:30:00 13:30:00 [id number] ity [facility] 2020-12-24 2020-12-[address] [facility] [id number] Univers 13:00:00 13:00:00 ity [facility] 2020-12-18 2020-12-18 [facility] Evangelist Clark [facility] 1.2.840.114 [id number] Univers 18:50:00 20:20:00 Encounter Herrick 350.1.13.10 ity of [place] 4.2.7.2.686 [place] [facility] [id number] [facility] 083 Siren 2020-12-18 2020-12-18 Telephone Librado [facility] 1.2.840.114 [id number] Univers 00:00:00 00:00:00 Molina Kearney TOOL HARDENER 350.1.13.10 ity of [facility] 4.2.7.2.686 Man as MATERNAL [id number] [facility] ical & CHILD [address] [place] [address] 2020-12-18 2020-12-18 Orders Doctor LUISA 1.2.840.114 [id number] Univers 00:00:00 00:00:00 Only Unassigned, JANNA 350.1.13.10 ity of [place] [facility] 4.2.7.2.686 Man as [id number] [facility] 009 Siren 2020-12-17 2020-12-17 Nurse Visit, Arvind Nurse [facility] 1.2 .840.114 [id number] Univers 13:44:33 14:05:24 Visit Molina Pavon TOOL HARDENER 350.1.13. 10 ity of [facility] 4.2.7.2.686 Man as MATERNAL [id number] [facility] & CHILD [address] [place] [address] 2020-12-17 2020-12-17 Para Machine Operator Ultrasound, Nathan [facility] 1.2 .840.114 [id number] Univers 13:10:05 13:40:05 Visit Gerardo Pettit TOOL HARDENER 350.1.13.10 ity of [facility] 4.2.7.2.686 Man as MATERNAL [id number] [facility] ical & CHILD [address] [facility] 2020-12-17 2020-12-[address] [facility] [id number] Univers 13:00:00 13:00:00 [id number] ity of [facility] 2020-12-17 2020-12-[address] [facility] [id number] Univers 10:30:00 10:30:00 MOLINA caraballo o f [facility] 2020-12-17 2020-12-17 Abstract [facility], [facility] 1.2.840.114 [id number] Univers 00:00:00 00:00:00 Molina C TOOL HARDENER 350.1.13.10 ity of REGIONAL 4.2.7.2.686 Man as MATERNAL [id number] [facility] & CHILD [address] [place] [address] 2020-12-10 2020-12-10 Routine [facility], [facility] 1.2.462.173 [id number] Univers 13:44:46 14:32:39 Molina C TOOL HARDENER 350.1.13.10 ity of Visit REGIONAL 4.2.7.2.686 Man as MATERNAL [id number] [facility] & [address] 2020-12-10 2020-12-10 [facility] [id number] Univers 14:15:00 14:15:00 MOLINA connolly f [facility] 2020-12-10 2020-12-10 Para Machine Operator Ultrasound, [facility] 1.2 .840.114 [id number] Univers 13:01:03 13:31:03 Visit Gerardo Pettit TOOL HARDENER 350.1.13.10 ity of Clara Petit [facility] 4.2.7.2.686 [place] MATERNAL [id number] [facility] & CHILD [address] [place] [address] 2020-12-10 2020-12-[address] [facility] [id number] Univers 13:00:00 13:00:00 [id number] ity of [facility] 2020-12-03 2020-12-[address] [facility] [id number] Univers 13:00:00 13:00:00 [id number] ity [facility] 2020-12-03 2020-12-03 Para Machine Operator Ultrasound, [facility] 1.2 .840.114 [id number] Univers 10:42:41 12:12:49 Visit Gerardo Pettit TOOL HARDENER 350.1.13.10 ity of Clara Petit [facility] 4.2.7.2.686 [place] MATERNAL [id number] Med ical & CHILD [address] [facility] 2020-12-03 2020-12-03 Outpatient P HODAN LAMARANDA [facility] [id number] Univers 10:45:00 10:45:00 GERARDO itreid [facility] 2020-12-03 2020-12-03 Nurse Visit, Arvind Nurse [facility] 1.2 .840.114 [id number] Univers 10:22:01 10:42:50 Visit Molina Pavon TOOL HARDENER 350.1.13. 10 ity of REGIONAL 4.2.7.2.686 Man as MATERNAL [id number] [facility] ical & CHILD 107 [facility] 2020-12-03 2020-12-03 Abstract Librado LAMARANDA 1.2.840.114 [id number] Univers 00:00:00 00:00:00 Molina Kearney TOOL HARDENER 350.1.13.10 ity of REGIONAL 4.2.7.2.686 Man as MATERNAL [id number] [facility] ical & CHILD [address] [place] [address] 2020-11-26 2020-11-26 Para Machine Operator Ultrasound, Nathan [facility] 1.2 .840.114 [id number] Univers 13:20:09 13:50:09 Visit Gerarod Pettit TOOL HARDENER 350.1.13.10 ity of REGIONAL 4.2.7.2.686 Mna as MATERNAL [id number] [facility] ical & CHILD [address] [facility] 2020-11-26 2020-11-[address] [facility] [id number] Univers 13:30:00 13:30:00 [id number] ity [facility] 2020-11-26 2020-11-26 Nurse Visit, Arvind Nurse [facility] 1.2 .840.114 [id number] Univers 12:53:08 13:19:50 Visit Molina Pavon TOOL HARDENER 350.1.13. 10 ity of REGIONAL 4.2.7.2.686 Man as MATERNAL [id number] [facility] ical & CHILD [address] [place] [address] 2020-11-26 2020-11-26 Outpatient R ELODIA PAVON [facility] [id number] Univers 12:45:00 12:45:00 MOLINA ity o f [facility] 2020-11-26 2020-11-26 Abstract Librado [facility] 1.2.840.114 [id number] Univers 00:00:00 00:00:00 Molina C TOOL HARDENER 350.1.13.10 ity of REGIONAL 4.2.7.2.686 Man as MATERNAL [id number] [facility] ical & CHILD [address] [place] [address] 2020-11-19 2020-11-19 Nurse Visit, Arvind Nurse [facility] 1. .840.114 [id number] Univers 13:24:06 13:52:49 Visit Molina Pavon TOOL HARDENER 350.1.13. 10 ity of REGIONAL 4.2.7.2.686 Man as MATERNAL [id number] [facility] ical & CHILD [address] [place] [address] 2020-11-19 2020-11-19 Para Machine Operator Ultrasound, Nathan [facility] 1.2 .840.114 [id number] Univers 13:03:14 13:33:14 Visit Gerardo Pettit TOOL HARDENER 350.1.13.10 ity of Magdy Knutson REGIONAL 4.2.7.2.686 [place] MATERNAL [id number] [facility] ical & CHILD [address] [facility] 2020-11-19 2020-11-[address] [facility] [id number] Univers 13:30:00 13:30:00 ity [facility] 2020-11-19 2020-11-[address] [facility] [id number] Univers 13:00:00 13:00:00 [id number] ity [facility] 2020-11-19 2020-11-19 Abstract Librado [facility] 1.2.840.114 [id number] Univers 00:00:00 00:00:00 Molina C TOOL HARDENER 350.1.13.10 ity of REGIONAL 4.2.7.2.686 Man as MATERNAL [id number] [facility] ical & CHILD [address] [place] [address] 2020-11-14 2020-11-14 Abstract [facility] 1.2.840.114 [id number] Univers 00:00:00 00:00:00 Molina Kearney TOOL HARDENER 350.1.13.10 ity of REGIONAL 4.2.7.2.686 Man as MATERNAL [id number] [facility] & CHILD [address] [place] [address] 2020-11-12 2020-11-12 Routine [facility] 1.2.197.338 [id number] Univers 13:46:03 15:02:34 Molina Kearney TOOL HARDENER 350.1.13.10 ity of Visit REGIONAL 4.2.7.2.686 Man as MATERNAL [id number] [facility] & [address] 2020-11-12 2020-11-12 [facility] [id number] Univers 14:00:00 14:00:00 MOLINA caraballo o f [facility] 2020-11-12 2020-11-12 Para Machine Operator Ultrasound, [facility] 1.2 .840.114 [id number] Univers 13:12:59 13:42:59 Visit Gerardo Pettit TOOL HARDENER 350.1.13.10 ity of Fuller Fátima Valle [facility] 4.2.7.2 .686 [place] MATERNAL [id number] [facility] & [address] 2020-11-12 2020-11-[address] [facility] [id number] Univers 13:00:00 13:00:00 [id number] ity of [facility] 2020-11-05 2020-11-05 Para Machine Operator Ultrasound, [facility] 1.2 .840.114 [id number] Univers 12:57:18 13:27:18 Visit Gerardo Pettit TOOL HARDENER 350.1.13.10 ity of REGIONAL 4.2.7.2.686 Man as MATERNAL [id number] [facility] & CHILD [address] [place] [address] 2020-11-05 2020-11-[address] [facility] [id number] Univers 13:00:00 13:00:00 [id number] ity of [facility] 2020-11-05 2020-11-[address] [facility] [id number] Univers 13:00:00 13:00:00 ity of [facility] 2020-11-05 2020-11-05 Abstract LibradoRUST 1.2.840.114 [id number] Univers 00:00:00 00:00:00 Molina C TOOL HARDENER 350.1.13.10 ity of REGIONAL 4.2.7.2.686 Man as MATERNAL [id number] [facility] & CHILD [address] [place] [address] 2020-10-28 2020-10-28 Patient DamasoRUST 1.2.840.114 [id number] Univers 00:00:00 00:00:00 Outreach Rigo [facility] 350.1.13.10 i ty of [facility] 4.2.7.2.686 [place]ILL[place] [phone] Wy dical [address] [place] [address] 2020-10-15 2020-10-15 Routine LibradoRUST 1.2.939.201 [id number] Univers 13:53:52 14:39:37 Molina C TOOL HARDENER 350.1.13.10 ity of Visit REGIONAL 4.2.7.2.686 Man as MATERNAL [phone] [facility] & [address] 2020-10-15 2020-10-15 Outpatient R LIBRADO, [facility] [id number] Univers 14:00:00 14:00:00 MOLINA [id number] ity o f [facility] 2020-10-15 2020-10-[address] [facility] [id number] Univers 14:00:00 14:00:00 MOLINA ity o f [facility] 2020-10-10 2020-10-10 Abstract LibradoRUST 1.2.840.114 [id number] Univers 00:00:00 00:00:00 Molina C TOOL HARDENER 350.1.13.10 ity of REGIONAL 4.2.7.2.686 Man as MATERNAL [phone] [facility] & CHILD [address] [place] [address] 2020-10-09 2020-10-09 Orders Doctor MORAN 1.2.840.114 [id number] Univers 00:00:00 00:00:00 Only Unassigned, JANNA 350.1.13.10 ity of [place] [facility] 4.2.7.2.686 Man as [phone] [address] 2020-10-08 2020-10-08 Para Machine Operator 1, [facility] 1.2. 840.114 [id number] Univers 15:03:35 15:48:35 Visit Alina Fátima Valle TOOL HARDENER 350.1. 13.10 ity of [facility] 4.2.7.2.686 Man as MATERNAL [phone] Med ical & CHILD [address] [facility] 2020-10-08 2020-10-08 Para Machine Operator Lab[facility] 1.2.840. 114 [id number] Univers 15:03:49 15:43:00 Visit Kam Tennille Natasha TOOL HARDENER 350.1.13. 10 ity of [facility] 4.2.7.2.686 Man as MATERNAL [phone] Med [facility] & CHILD [address] [place] [address] 2020-10-08 2020-10-[address] [facility] [id number] Univers 14:00:00 14:00:00 [id number] ity [facility] 2020-10-08 2020-10-08 Outpatient P [facility] [id number] Univers 14:00:00 14:00:00 ity [facility] 2020-10-06 2020-10-06 Telephone Librado, [facility] 1.2.840.114 [id number] Univers 00:00:00 00:00:00 Molina [place]earney TOOL HARDENER 350.1.13.10 ity of [facility] 4.2.7.2.686 Man as MATERNAL [id number] Med ical & CHILD [address] [place] [address] 2020-09-29 2020-09-29 Orders Doctor MORAN 1.2.840.114 [id number] Univers 00:00:00 00:00:00 Only Unassigned, JANNA 350.1.13.10 ity of [place] [facility] 4.2.7.2.686 Man as [id number] [address] 2020-09-25 2020-09-25 [facility]phone [facility] 1.2.840.114 [id number] Univers 00:00:00 00:00:00 Molina C TOOL HARDENER 350.1.13.10 ity of REGIONAL 4.2.7.2.686 Man as MATERNAL [id number] [facility] & CHILD [address] [place] [address] 2020-09-24 2020-09-24 Outpatient R AKINKEVIN, [facility] [id number] Univers 15:00:00 15:00:00 MOLINA itreid o [facility] 2020-09-24 2020-09-[address] [facility] [id number] Univers 10:30:00 10:30:00 BELLA [id number] ity o [facility] 2020-09-18 2020-09-18 Telephone [facility] 1.2.840.114 [id number] Univers 00:00:00 00:00:00 Molina C TOOL HARDENER 350.1.13.10 ity of REGIONAL 4.2.7.2.686 Man as MATERNAL [id number] [address] 2020-09-17 2020-09-17 [facility] [id number] [id number] Univers 16:00:00 16:00:00 MOLINA [id number] ity o [facility] 2020-09-17 2020-09-17 [facility] [id number] Univers 16:00:00 16:00:00 MOLINA ity o [facility] 2020-09-17 2020-09-17 Routine [facility] 1.2.245.701 [id number] Univers 15:44:41 15:59:41 Molina C TOOL HARDENER 350.1.13.10 ity of Visit REGIONAL 4.2.7.2.686 Man as MATERNAL [id number] [facility] & CHILD [address] [place] [address] 2020-08-20 2020-08-20 Initial AkinsipeRUST 1.2.507.380 [id number] Univers 12:55:28 14:19:34 Molina C TOOL HARDENER 350.1.13.10 ity of Visit REGIONAL 4.2.7.2.686 Man as MATERNAL [id number] [facility] & CHILD [address] [place] [address] 2020-08-20 2020-08-[address] [facility] [id number] Univers 12:45:00 12:45:00 [id number] ity [facility] 2020-08-20 2020-08-[address] [facility] [id number] Univers 12:45:00 12:45:00 ity [facility] 2020-06-04 2020-06-04 Office [facility] 1.2.585.916 [id number] Univers 15:42:24 16:35:24 Visit Molina C TOOL HARDENER 350.1.13.10 ity of REGIONAL 4.2.7.2.686 Man as MATERNAL [id number] [address] 2020-06-04 2020-06-04 [facility] [id number] [id number]-20 Univers 16:00:00 16:00:00 MOLINA [id number] ilya o [facility] 2020-06-04 2020-06-04 Outpatient [facility] [id number] Univers 16:00:00 16:00:00 MOLINA caraballo o [facility] 2020-04-01 2020-04-01 [facility] 1.2.840.114 [id number] Univers 15:55:34 16:41:33 Visit Bella R TOOL HARDENER 350.1.13.10 ity of REGIONAL 4.2.7.2.686 Man as MATERNAL [phone] [facility] & [address] 2020-04-01 2020-04-01 [facility] [id number] -[id number] Univers 15:45:00 15:45:00 BELLA [id number] ilya o f [facility] 2020-04-01 2020-04-01 [facility] [id number] Univers 15:45:00 15:45:00 BELLA caraballo o f [facility] 2020-03-24 2020-03-24 Telephone Aden, IVON 1.2.840.114 [id number] Univers 00:00:00 00:00:00 Lenin HUERTA 350.1.13.10 it y of 4.2.7.2.686 [facility] [id number] [facility] [address] 2020-03-21 2020-03-22 Emergency AdenRUST 1.2.840.114 [id number] Univers 22:44:00 01:28:00 Lenin Vasquez 350.1.13.10 i ty of [place] 4.2.7.2.686 [facility] [id number] [address] 2020-02-26 2020-02-26 Emergency [facility] 1.2.233.803 [id number] Univers 16:39:27 18:59:00 Evangelist Vasquez 350.1.13.10 i ty of [place] 4.2.7.2.686 [facility] [id number] [address] 2020-02-26 2020-02-26 Orders Doctor LUISA 1.2.840.114 [id number] Univers 00:00:00 00:00:00 Only Unassigned, JANNA 350.1.13.10 ity of [place] [facility] 4.2.7.2.686 Man as [phone] [place] [address] [address] 2020-02-07 2020-02-[address] [facility] [id number] Univers 13:00:00 13:00:00 [id number] ity of [facility] 2020-02-07 2020-02-07 Outpatient R AKINKEVIN, [facility] [id number] Univers 13:00:00 13:00:00 MOLINA sutton [facility] 2020-01-10 2020-01-10 [facility]phone [facility] 1.2.840.114 [id number] Univers 00:00:00 00:00:00 Molina Kearney TOOL HARDENER 350.1.13.10 ity of [facility] 4.2.7.2.686 Man as MATERNAL [id number] Med ical & CHILD [address] [place] [address] 2020-01-07 2020-01-07 Outpatient R AKINSIPE, [facility] [id number] Univers 08:30:00 08:30:00 MOLINA ity o f [facility] 2020-01-07 2020-01-07 Outpatient R AKINSIPE, [facility] [id number] Univers 08:30:00 08:30:00 MOLINA ity o [facility] 2019-12-12 2019-12-12 Telephone [facility] 1.2.840.114 [id number] Univers 00:00:00 00:00:00 Molina C TOOL HARDENER 350.1.13.10 ity of [facility] 4.2.7.2.686 Man as MATERNAL [id number] [address] 2019-11-16 2019-11-16 Outpatient R AKINSIPE, [facility] [id number] Univers 15:00:00 15:00:00 MOLINA [id number] ity o [facility] 2019-11-16 2019-11-16 Outpatient R AKINSIPE, [facility] [id number] Univers 15:00:00 15:00:00 MOLINA ity o [facility] 2019-10-26 2019-10-26 Telephone [facility] 1.2.840.114 [id number] Univers 00:00:00 00:00:00 Molina C TOOL HARDENER 350.1.13.10 ity of REGIONAL 4.2.7.2.686 Man as MATERNAL [id number] [facility] & [address] 2019-10-05 2019-10-05 Office AkinsipeRUST 1.2.511.017 [id number] Univers 14:55:55 15:52:08 Visit Molina C TOOL HARDENER 350.1.13.10 ity of [facility] 4.2.7.2.686 Man as MATERNAL [id number] [facility] & [address] 2019-10-05 2019-10-05 Outpatient R AKINSIPE, [facility] [id number] Univers 15:00:00 15:00:00 MOLINA ity o f [facility] 2019-10-05 2019-10-05 Orders Doctor LUISA 1.2.840.114 [id number] Univers 00:00:00 00:00:00 Only Unassigned, JANNA 350.1.13.10 ity of [place] [facility] 4.2.7.2.686 Man as [id number] [address] 2019-09-20 2019-09-20 Office ELODIA Pavon 1.2.749.818 [id number] Univers 14:11:23 15:38:56 Visit Molnia [place] TOOL HARDENER 350.1.13.10 ity of [facility] 4.2.7.2.686 Man as MATERNAL [id number] [facility] ical & CHILD [address] [place] [address] 2019-09-18 2019-09-18 Nurse Visit, Arvind Nurse [place] 1.2 .840.114 [id number] Univers 14:05:15 14:49:01 Visit Molina Pavon TOOL HARDENER 350.1.13. 10 ity of [place] [address].2.7.2.686 Man as MATERNAL [id number] [facility] ical & CHILD [address] [place] [address] 2019-04-27 2019-04-27 Abstract ELODIA Pavon 1.2.840.114 [id number] Univers 00:00:00 00:00:00 Molina Kearney TOOL HARDENER 350.1.13.10 ity of [facility] 4.2.7.2.686 Man as MATERNAL [id number] [facility] ical & CHILD [address] [place] [address] 2019-04-24 2019-04-24 Nurse Visit, Arvind Nurse [facility] 1.2 .840.114 [id number] Univers 10:40:27 11:05:53 Visit Fátima Carson TOOL HARDENER 350.1. 13.10 ity of Molina Pavon [facility] 4.2.7.2.68 6 [place] MATERNAL [id number] [facility] ical & CHILD [address] [place] [address] 2019-04-24 2019-04-24 Para Machine Operator Ultrasound, Nathan [facility] 1.2 .840.114 [id number] Univers 10:06:08 10:51:08 Visit Alina KenneykyleFátima mcbride TOOL HARDENER 350.1. 13.10 ity of REGIONAL 4.2.7.2.686 Man as MATERNAL [id number] Med ical & CHILD [address] [facility] 2019-04-17 2019-04-24 Routine Librado, [facility] 1.2.879.493 [id number] [facility] 13:01:05 08:40:10 Molina C TOOL HARDENER 350.1.13.10 ity of Visit [facility] 4.2.7.2.686 Man as MATERNAL [id number] [facility] ical & CHILD 107 [facility] 2019-04-18 2019-04-18 Hospital Bushra Conteh Taco [facility] 1.2.840.114 [id number] [facility] 19:24:00 20:30:00 Encounter Jess Friend 350.1.13.1 0 ity of [place] 4.2.7.2.686 [id number] [address] 2019-04-14 2019-04-14 [facility] Friend, [facility] 1.2.840.114 [id number] [facility] 01:31:00 02:40:00 Encounter Jess Vasquez 350.1.13.10 ity of [place] 4.2.7.2.686 [facility] [id number] [address] 2019-04-10 2019-04-10 Nurse Visit, Arvind Nurse [facility] 1.2 .840.114 [id number] Univers 14:01:50 14:41:50 Visit Molina Pavon TOOL HARDENER 350.1.13. 10 ity of [facility] 4.2.7.2.686 Man as MATERNAL [id number] [facility] ical & CHILD [address] [place] [address] 2019-04-03 2019-04-03 Nurse Visit, Arvind Nurse [facility] 1.2 .840.114 [id number] [facility] 11:47:37 12:00:15 Visit Molina Pavon TOOL HARDENER 350.1.13. 10 ity of [facility] 4.2.7.2.686 Man as MATERNAL [id number] [facility] ical & CHILD [address] [place] [address] 2019-03-29 2019-03-29 Routine Risk, Xui-Wolbk-Rb/High [facility] 1. 2.840.114 [id number] Univers 13:37:34 15:04:21 Marilu Doran TOOL HARDENER 350.1.13.10 ity of Visit REGIONAL 4.2.7.2.686 Man as MATERNAL [id number] [facility] ical & CHILD 107 [facility] 2019-03-27 2019-03-27 Nurse Visit, Arvind Nurse [facility] 1.2 .840.114 [id number] Univers 10:09:07 10:24:12 Visit Molina Pavon TOOL HARDENER 350.1.13. 10 ity of REGIONAL 4.2.7.2.686 Man as MATERNAL [id number] [facility] ical & CHILD [address] [place] [address] 2019-03-20 2019-03-20 Routine Josef, [facility] 1.2.827.217 [id number] Univers 10:34:37 11:11:26 Amanda Richards TOOL HARDENER 350.1.13.10 i ty of Visit REGIONAL 4.2.7.2.686 Man as MATERNAL [id number] [facility] ical & CHILD [address] [place] [address] 2019-03-20 2019-03-20 Nurse Visit, Arvind Nurse [facility] 1.2 .840.114 [id number] Univers 10:02:19 10:37:28 Visit Molina Pavon TOOL HARDENER 350.1.13. 10 ity of REGIONAL 4.2.7.2.686 Man as MATERNAL [id number] [facility] ical & CHILD [address] [place] [address] 2019-03-15 2019-03-15 Routine Faculty, Daryn Sewell [facility] 1.2 .840.114 [id number] Univers 09:37:58 10:18:32 Molina Pavon TOOL HARDENER 350.1.13 .10 ity of Visit REGIONAL 4.2.7.2.686 Man as MATERNAL [id number] [facility] ical & CHILD 107 [facility] 2019-03-13 2019-03-13 [facility] 1.2 .840.114 [id number] Univers 09:35:59 10:07:45 Visit Molina Pavon TOOL HARDENER 350.1.13. 10 ity of REGIONAL 4.2.7.2.686 Man as MATERNAL [id number] [facility] & [address] 2019-03-06 2019-03-06 Nurse Visit, [facility] Nurse [facility] 1.2 .840.114 [id number] Univers 09:03:54 09:49:10 Visit Molina Pavon TOOL HARDENER 350.1.13. 10 ity of REGIONAL 4.2.7.2.686 Man as MATERNAL [id number] [facility] & [address] 2019-02-20 2019-03-06 Routine Librado, [facility] 1.2.929.185 [id number] Univers 10:45:20 09:40:49 Molina Christel TOOL HARDENER 350.1.13.10 ity of Visit [facility] 4.2.7.2.686 Man as MATERNAL [id number] [facility] & [address] Results Test Description Test Time Test Comments Results Result Comments Source GROUP B STREPTOCOCCUS BY PCR 2021-03-27 17:05:28 Test Item Value Reference Range Interpretation Comme nts Group B Streptococcus by PCR (test code = 87986-7) Positive Neg ative A Lab Interpretation (test code = 32729-7) Abnormal [facility] COVID [id number] 21:22:56COVID DMT InterpretationInterpretation/Recommendation:Molecular NAAT Tests for Active Infection withthe SARS-CoV-2 Virus:This patient has not been currently tested at [facility] for an active infection withthe SARS-CoV-2 virus that causes COVID-19 illness. If there is clinical suspicion for COVID-19 illness, molecular viral testing (PCR, Rapid ID Now, etc.) is recommended to assess for active/acute infection. Tests for IgM and/or IgG Antibodies to the SARS-CoV-2 Virus:The patient has continued to test negative for SARS-CoV-2 IgG antibodies. This most likely indicates that the patient has not had a SARS-CoV-2 infection up to 2-3 weeks prior to the date of the most recent IgG test, especially if the patient has been asymptomatic for COVID-19 illness. If the patient has symptoms suggestive of COVID-19 illness, retesting the patient for antibodies approximately 3 weeks after illness onset will likely indicate if the patient has produced antibodies to the SARS-CoV-2 virus. However, some patients may take longer to develop detectable antibodies, while some patients who were infected with SARS-CoV-2 maynever develop antibodies. While IgG antibodies to SARS-CoV-2 may provide some degree of immunity, the specific duration and strength of immunity from SARS-CoV-2 IgG antibodies is highly variable between individuals and is dependent on a variety of factors, including infection vs. vaccination response,initial infection severity, the strength of the patient's own immune system, and the variants to which the patient is exposed. In terpretation Result Comments:These interpretation comments are based upon all COVID-19 testing the patient has had at [facility], including molecular NAAT testing (more commonly known as PCR testing and Rapid ID Now testing) and antibody testing. It does not take into account any testing that a patient has had outside of the [facility] medical record. [facility] LABORATORY SERVICESCOVID ResultsCoV-2 IgG (no units) ?? Date ? Value ? 03/25/2021 ? Negative ? 08/20/2020 ? Negative ? ? ? [facility] IGG 2021-03-26 05:50:07 Test Item Value Reference Range Interpretation Comments CoV-2 IgG (test code Negative Negative Negativ e result = 75624-9) does not rule o ut acute SARS-CoV- 2 infection. Clinical correlation as well as molecul ar diagnostic test are recommended to rule out acu te infection if clinically indicated. BRIDGET (test code = BRIDGET) The CoV-2 antibody test should not be used for screening of donated blood. This test has been approved by FDA for emergency use. Lab Interpretation Normal (test code = 37836-1) [facility] WITH [id number] 05:04:06 Test Item Value Reference Range Interpretation Comments WBC (test code = See_Comment [Automated 6690-2) message] The sy stem which generated this result transmitted reference range : 4.30 - 11.10 10*3/?L. The reference range was not used to interpret this result as normal/abnormal . RBC (test code = See_Comment L [Automated 789-8) message] The sy stem which generated this result transmitted reference range : 3.93 - 5.25 10*6/?L. The reference range was not used to interpret this result as normal/abnormal . HGB (test code = 9.2 g/dL 11.6-15.0 L 718-7) HCT (test code = 28.6 % 35.7-45.2 L 4544-3) MCV (test code = 79.9 fL 80.6-95.5 L 787-2) MCH (test code = 25.7 pg 25.9-32.8 L 785-6) MCHC (test code = 32.2 g/dL 31.6-35.1 786-4) RDW-SD (test code = 39.3 fL 39.0-49.9 60749-9) RDW-CV (test code = 13.6 % 12.0-15.5 788-0) PLT (test code = See_Comment [Automated 777-3) message] The sy stem which generated this result transmitted reference range : 166 - 358 10*3/ ?L. The reference r ian was not used to interpret this result as normal/abnormal . MPV (test code = 9.4 fL 9.5-12.9 L 25214-7) NRBC/100 WBC (test See_Comment [Automat ed code = 8639372306) message] The system which generated this result transmitted reference range : 0.0 - 10.0 /100 WBCs. The refer ence range was not u sed to interpret th is result as normal/abnormal . NRBC x10^3 (test code <0.01 See_Comment [Auto mated = 2739561886) message] The s ystem which generated this result transmitted reference range : 10*3/?L. The reference range was not used to interpret this result as normal/abnormal . GRAN MAT (NEUT) % 74.5 % (test code = 770-8) IMM GRAN % (test code 0.70 % = 2489508782) LYMPH % (test code = 15.3 % 736-9) MONO % (test code = 8.8 % 5905-5) EOS % (test code = 0.5 % 713-8) BASO % (test code = 0.2 % 706-2) GRAN MAT x10^3(ANC) 6.09 10*3/uL 1.88-7.09 (test code = 9523017257) IMM GRAN x10^3 (test 0.06 10*3/uL 0.00-0.06 code = 1738056397) LYMPH x10^3 (test code 1.25 10*3/uL 1.32-3.29 L = 731-0) MONO x10^3 (test code 0.72 10*3/uL 0.33-0.92 = 742-7) EOS x10^3 (test code = 0.04 10*3/uL 0.03-0.39 711-2) BASO x10^3 (test code <0.03 0.01-0.07 = 704-7) Lab Interpretation Abnormal (test code = 91088-3) [facility] URINALYSIS W SPECIFIC [id number] 18:26:00 Test Item Value Reference Range Interpretation Comments POCT U SP GRAV (test code = 3255) . 1.005-1.025 POCT PH U (test code = 3254) . 5-8 POCT U LEUK EST (test code = 3263) . Negative - Negative POCT U NIT (test code = 3262) . Negative - Negative POCT U PROT (test code = 3259) 1+ Negative - Negative POCT U GLU (test code = 3256) Neg Negative - Negative POCT U KETONE (test code = 3258) . Negative - Negative POCT U UROBILI (test code = 3260) . 0.2-1 POCT U BILI (test code = 3261) . Negative - Negative POCT U BLD (test code = 3257) . Negative - Negative POCT U COLOR (test code = 3266) POCT U APPEAR (test code = 3267) [facility] URINALYSIS W SPECIFIC [id number] 18:55:00 Test Item Value Reference Range Interpretation Comments POCT U SP GRAV (test code = 3255) . 1.005-1.025 POCT PH U (test code = 3254) . 5-8 POCT U LEUK EST (test code = 3263) . Negative - Negative POCT U NIT (test code = 3262) . Negative - Negative POCT U PROT (test code = 3259) Trace Negative - Negative POCT U GLU (test code = 3256) Neg Negative - Negative POCT U KETONE (test code = 3258) . Negative - Negative POCT U UROBILI (test code = 3260) . 0.2-1 POCT U BILI (test code = 3261) . Negative - Negative POCT U BLD (test code = 3257) . Negative - Negative POCT U COLOR (test code = 3266) POCT U APPEAR (test code = 3267) [facility] URINALYSIS W SPECIFIC [id number] 18:55:00 Test Item Value Reference Range Interpretation Comments POCT U SP GRAV (test code = 3255) . 1.005-1.025 POCT PH U (test code = 3254) . 5-8 POCT U LEUK EST (test code = 3263) . Negative - Negative POCT U NIT (test code = 3262) . Negative - Negative POCT U PROT (test code = 3259) Trace Negative - Negative POCT U GLU (test code = 3256) Neg Negative - Negative POCT U KETONE (test code = 3258) . Negative - Negative POCT U UROBILI (test code = 3260) . 0.2-1 POCT U BILI (test code = 3261) . Negative - Negative POCT U BLD (test code = 3257) . Negative - Negative POCT U COLOR (test code = 3266) POCT U APPEAR (test code = 3267) [facility] URINALYSIS W SPECIFIC [id number] 18:19:00 Test Item Value Reference Range Interpretation Comments POCT U SP GRAV (test code = 3255) . 1.005-1.025 POCT PH U (test code = 3254) 6 mg/dl 5-8 POCT U LEUK EST (test code = neg Negative - Negative 3263) POCT U NIT (test code = 3262) neg Negative - Negative POCT U PROT (test code = 3259) trace Negative - Negative POCT U GLU (test code = 3256) neg Negative - Negative POCT U KETONE (test code = 3258) neg Negative - Negative POCT U UROBILI (test code = 3260) . 0.2-1 POCT U BILI (test code = 3261) . Negative - Negative POCT U BLD (test code = 3257) neg Negative - Negative POCT U COLOR (test code = 3266) POCT U APPEAR (test code = 3267) [facility] - SYPHILIS [id number] 14:13:27 Test Item Value Reference Range Interpretation Comments Syphilis IgG/IgM (test Non-reactive Non-reactive code = 60671-5) BRIDGET (test code = BRIDGET) Non-reactive - No serologic evidence of T. pallidum infection. Cannot exclude incubating or early syphilis. Submit a second specimen in 2-4 weeks if syphilis is clinically suspected. Equivocal - Further testing to follow. Reactive - Further testing to follow. Lab Interpretation (test Normal code = 21694-5) [facility]2 AG-AB WITH [id number] 06:30:45 Test Item Value Reference Range Interpretation Comments HIV Negative Negative Semi-quantitative (test code = 23995-7) BRIDGET (test code = Non-reactive for HIV-1 BRIDGET) antigen and HIV-1/HIV-2 antibodies. ?No laboratory evidence of HIV infection. ?Repeat in 2-4 weeks if acute HIV infection is suspected. [facility] HospitalPrenatal Workup, Blood [id number] 04:17:21 Test Item Value Reference Range Interpretation Comments ABO & RH (test code B NEGATIVE Performe d at [facility] = 20) Laboratory [facility] Blood Bank3 [facility] [address]Iyxo Free: [phone] A No. [id number] IAT (test code = Negative Performed a t [facility] 1185) Laboratory [facility] Blood Bank3 01 [facility] [address]Pgzy Free: [phone] A No. [id number] [facility]PO[facility] URIN[facility]YS[facility] W SPECIFIC [id number] 18:28:00 Test Item Value Reference Range Interpretation Comments POCT U SP GRAV (test code = 3255) . 1.005-1.025 POCT PH U (test code = 3254) . 5-8 POCT U LEUK EST (test code = 3263) . Negative - Negative POCT U NIT (test code = 3262) . Negative - Negative POCT U PROT (test code = 3259) Trace Negative - Negative POCT U GLU (test code = 3256) Neg Negative - Negative POCT U KETONE (test code = 3258) . Negative - Negative POCT U UROBILI (test code = 3260) . 0.2-1 POCT U BILI (test code = 3261) . Negative - Negative POCT U BLD (test code = 3257) . Negative - Negative POCT U COLOR (test code = 3266) POCT U APPEAR (test code = 3267) [facility] HospitalGlucose 1 Hour Post [id number] 06:46:48 Test Item Value Reference Range Interpretation Comments GLUC 1 HR (test code = 4433437412) 106 mg/dL 120-170 L Lab Interpretation (test code = Abnormal 70028-5) [facility] with [id number] 05:55:05 Test Item Value Reference Range Interpretation Comments WBC (test code = See_Comment [Automated 7609-2) message] The sy stem which generated this result transmitted reference range : 4.30 - 11.10 10*3/?L. The reference range was not used to interpret this result as normal/abnormal . RBC (test code = See_Comment L [Automated 324-7) message] The sy stem which generated this result transmitted reference range : 3.93 - 5.25 10*6/?L. The reference range was not used to interpret this result as normal/abnormal . HGB (test code = 10.4 g/dL 11.6-15.0 L 718-7) HCT (test code = 31.2 % 35.7-45.2 L 4544-3) MCV (test code = 86.4 fL 80.6-95.5 787-2) MCH (test code = 28.8 pg 25.9-32.8 785-6) MCHC (test code = 33.3 g/dL 31.6-35.1 786-4) RDW-SD (test code = 42.4 fL 39.0-49.9 23701-3) RDW-CV (test code = 13.5 % 12.0-15.5 788-0) PLT (test code = See_Comment [Automated 777-3) message] The sy stem which generated this result transmitted reference range : 166 - 358 10*3/ ?L. The reference r ian was not used to interpret this result as normal/abnormal . MPV (test code = 9.8 fL 9.5-12.9 46733-0) NRBC/100 WBC (test See_Comment [Automat ed code = 9354003373) message] The system which generated this result transmitted reference range : 0.0 - 10.0 /100 WBCs. The refer ence range was not u sed to interpret th is result as normal/abnormal . NRBC x10^3 (test code <0.01 See_Comment [Auto mated = [id number]) message] The s ystem which generated this result transmitted reference range : 10*3/?L. The reference range was not used to interpret this result as normal/abnormal . GRAN MAT (NEUT) % 77.2 % (test code = 770-8) IMM GRAN % (test code 0.40 % = 0823501160) LYMPH % (test code = 12.6 % 736-9) MONO % (test code = 8.2 % 5905-5) EOS % (test code = 1.2 % 713-8) BASO % (test code = 0.4 % 706-2) GRAN MAT x10^3(ANC) 6.19 10*3/uL 1.88-7.09 (test code = 5513672479) IMM GRAN x10^3 (test 0.03 10*3/uL 0.00-0.06 code = 0683570265) LYMPH x10^3 (test code 1.01 10*3/uL 1.32-3.29 L = 731-0) MONO x10^3 (test code 0.66 10*3/uL 0.33-0.92 = 742-7) EOS x10^3 (test code = 0.10 10*3/uL 0.03-0.39 711-2) BASO x10^3 (test code 0.03 10*3/uL 0.01-0.07 = 704-7) Lab Interpretation Abnormal (test code = 82838-5) [facility] URINALYSIS W SPECIFIC [id number] 19:05:00 Test Item Value Reference Range Interpretation Comments POCT U SP GRAV (test code = * 1.005-1.025 3255) POCT PH U (test code = 3254) * 5-8 POCT U LEUK EST (test code = * Negative - Negative 3263) POCT U NIT (test code = 3262) * Negative - Negative POCT U PROT (test code = 3259) trace Negative - Negative POCT U GLU (test code = 3256) negative Negative - Negative POCT U KETONE (test code = 3258) * Negative - Negative POCT U UROBILI (test code = * 0.2-1 3260) POCT U BILI (test code = 3261) * Negative - Negative POCT U BLD (test code = 3257) * Negative - Negative POCT U COLOR (test code = 3266) POCT U APPEAR (test code = 3267) [facility] URINALYSIS W SPECIFIC [id number] 19:05:00 Test Item Value Reference Range Interpretation Comments POCT U SP GRAV (test code = * 1.005-1.025 3255) POCT PH U (test code = 3254) * 5-8 POCT U LEUK EST (test code = * Negative - Negative 3263) POCT U NIT (test code = 3262) * Negative - Negative POCT U PROT (test code = 3259) trace Negative - Negative POCT U GLU (test code = 3256) negative Negative - Negative POCT U KETONE (test code = 3258) * Negative - Negative POCT U UROBILI (test code = * 0.2-1 3260) POCT U BILI (test code = 3261) * Negative - Negative POCT U BLD (test code = 3257) * Negative - Negative POCT U COLOR (test code = 3266) POCT U APPEAR (test code = 3267) [facility] URINALYSIS W SPECIFIC [id number] 19:37:00 Test Item Value Reference Range Interpretation Comments POCT U SP GRAV (test code = . 1.005-1.025 3255) POCT PH U (test code = 3254) . 5-8 POCT U LEUK EST (test code = . Negative - Negative 3263) POCT U NIT (test code = 3262) . Negative - Negative POCT U PROT (test code = 3259) NEGATIVE Negative - Negative POCT U GLU (test code = 3256) NEGATIVE Negative - Negative POCT U KETONE (test code = 3258) . Negative - Negative POCT U UROBILI (test code = . 0.2-1 3260) POCT U BILI (test code = 3261) . Negative - Negative POCT U BLD (test code = 3257) . Negative - Negative POCT U COLOR (test code = 3266) POCT U APPEAR (test code = 3267) [facility] URINALYSIS W SPECIFIC [id number] 18:59:00 Test Item Value Reference Range Interpretation Comments POCT U SP GRAV (test code = 3255) . 1.005-1.025 POCT PH U (test code = 3254) . 5-8 POCT U LEUK EST (test code = 3263) . Negative - Negative POCT U NIT (test code = 3262) . Negative - Negative POCT U PROT (test code = 3259) Trace Negative - Negative POCT U GLU (test code = 3256) Neg Negative - Negative POCT U KETONE (test code = 3258) . Negative - Negative POCT U UROBILI (test code = 3260) . 0.2-1 POCT U BILI (test code = 3261) . Negative - Negative POCT U BLD (test code = 3257) . Negative - Negative POCT U COLOR (test code = 3266) POCT U APPEAR (test code = 3267) [facility] URINALYSIS W SPECIFIC [id number] 18:59:00 Test Item Value Reference Range Interpretation Comments POCT U SP GRAV (test code = 3255) . 1.005-1.025 POCT PH U (test code = 3254) . 5-8 POCT U LEUK EST (test code = 3263) . Negative - Negative POCT U NIT (test code = 3262) . Negative - Negative POCT U PROT (test code = 3259) Trace Negative - Negative POCT U GLU (test code = 3256) Neg Negative - Negative POCT U KETONE (test code = 3258) . Negative - Negative POCT U UROBILI (test code = 3260) . 0.2-1 POCT U BILI (test code = 3261) . Negative - Negative POCT U BLD (test code = 3257) . Negative - Negative POCT U COLOR (test code = 3266) POCT U APPEAR (test code = 3267) [facility] URINALYSIS W SPECIFIC [id number] 20:09:00 Test Item Value Reference Range Interpretation Comments POCT U SP GRAV (test code = 3255) . 1.005-1.025 POCT PH U (test code = 3254) . 5-8 POCT U LEUK EST (test code = 3263) . Negative - Negative POCT U NIT (test code = 3262) . Negative - Negative POCT U PROT (test code = 3259) Trace Negative - Negative POCT U GLU (test code = 3256) Neg Negative - Negative POCT U KETONE (test code = 3258) . Negative - Negative POCT U UROBILI (test code = 3260) . 0.2-1 POCT U BILI (test code = 3261) . Negative - Negative POCT U BLD (test code = 3257) . Negative - Negative POCT U COLOR (test code = 3266) POCT U APPEAR (test code = 3267) [facility] URINALYSIS W SPECIFIC [id number] 22:04:00 Test Item Value Reference Range Interpretation Comments POCT U SP GRAV (test code = 3255) . 1.005-1.025 POCT PH U (test code = 3254) . 5-8 POCT U LEUK EST (test code = 3263) . Negative - Negative POCT U NIT (test code = 3262) . Negative - Negative POCT U PROT (test code = 3259) Trace Negative - Negative POCT U GLU (test code = 3256) Neg Negative - Negative POCT U KETONE (test code = 3258) . Negative - Negative POCT U UROBILI (test code = 3260) . 0.2-1 POCT U BILI (test code = 3261) . Negative - Negative POCT U BLD (test code = 3257) .. Negative - Negative POCT U COLOR (test code = 3266) POCT U APPEAR (test code = 3267) [facility] [id number] 22:28:00COVID DMT InterpretationInterpretation/Recommendation: Molecular NAAT Tests for Active Infection with the SARS-CoV-2 Virus: This patient was never tested for an active infection with the SARS-CoV-2 virus that causes COVID-19 illness. If there is clinical suspicion for COVID-19 illness, molecular NAAT t esting (PCR, Rapid ID Now, etc.) is recommended. Tests for IgM and/or IgG Antibodies to BOJJ-YjA-1Tsqjw: The patient has tested negative for SARS-CoV-2 IgG antibodies. If the patient is asymptomatic, this most likely indicates that the patient does not have a history of prior COVID-19 illness. However, if the patient has symptoms suggestive of COVID-19 illness, retesting the patient for both IgM and IgG antibodies 3 weeks after symptom onset is recommended since IgM and IgG antibodies can arise nearly simultaneously in the serum within 2-3 weeks after illness onset in SARS-CoV-2 infections. Of note, some patients with a positive molecular NAAT test (PCR, Rapid ID Now, etc.) who are asymptomaticor only have mild illness do not generate antibodies. While rare, some patients never mount an antibody response to infectious agents, such as SARS-CoV-2, which can explain persistently negative antibody tests. At this time, it is unknown if the production of IgG antibodies indicates immunity to the SARS-CoV-2 virus and for how long IgG antibody production lasts. Interpretation Result Comments:These interpretation comments are based upon all COVID-19 testing the patient has had at [facility], including molecular NAAT testing (more commonly known as PCR testing and Rapid ID Now testing) and antibody testing. It does not take into account any testing that a patient has had outside of the [facility] medical record. [facility] LABORATORY SERVICESCOVID ResultsCoV-2 IgG (no units) ? ? Date ? Value ? 08/20/2020 ? Negative ? ? ? [facility] LABORATORY SERVICESUnWilson N. Jones Regional Medical CenterGC & CHLAMYDIA AMPLIFIED [id number] 19:13:00 Test Item Value Reference Range Interpretation Comments C. trachomatis Nucleic Negative Negative Acid (test code = 60230-4) N. gonorrhoeae Nucleic Negative Negative Acid (test code = 46914-0) BRIDGET (test code = BRIDGET) Reliable results are dependent on adequate specimen collection. ? A positive result obtained from a patient after therapeutic treatment cannot be interpreted as indicating the presence of viable organisms. ?For patients on whom a false positive result may have adverse psychosocial impact, retesting is advised. Indeterminate: Unable to generate a valid test result on this specimen. ?Please submit a new specimen for repeat testing if clinically indicated. Chlamydia trachomatis/Neisseria gonorrhoeae nucleic acid amplification testing (NAAT) has not been validated for medico-legal specimens (sexual abuse in mark-pubertal and pre-pubertal children, sexual assault, and legal cases). ?Culture for Chlamydia trachomatis and/or Neisseria gonorrhoeae from clinically appropriate sites is the method of choice in these cases. ? Results from this testing should be interpreted in conjunction with other laboratory and clinical data available to the clinician.For females in general, a urine specimen is a second-line option because it is considered less sensitive than a cervical swab for Chlamydia trachomatis and/or Neisseria gonorrhoeae NAAT. Lab Interpretation Normal (test code = 46125-0) [facility] HospitalRUBELLA SCREEN (NICHOLAS) [id number] 18:20:00 Test Item Value Reference Range Interpretation Comments Rubella screen IgG Positive Negative (test code = 6385397521) BRIDGET (test code = BRIDGET) Positive - Indicates the patient was exposed to Rubella through infection or vaccination.Negative - Indicates the patient could be susceptible to Rubella infection.Equivocal - A second specimen should be sent. [facility] HospitalVZV ANTIBODY [id number] 18:20:00 Test Item Value Reference Range Interpretation Comments VZV IgG antibody Positive Negative (test code = 99098-6) BRIDGET (test code = BRIDGET) Positive - Indicates the patient was exposed to VZV through infection or vaccination.Negative - Indicates the patient could be susceptible to VZV infection.Equivocal - A second specimen should be sent for testing. [facility] - SYPHILIS [id number] 15:58:00 Test Item Value Reference Range Interpretation Comments Syphilis IgG/IgM (test Non-reactive Non-reactive code = 26852-2) BRIDGET (test code = BRIDGET) Non-reactive - No serologic evidence of T. pallidum infection. Cannot exclude incubating or early syphilis. Submit a second specimen in 2-4 weeks if syphilis is clinically suspected. Equivocal - Further testing to follow. Reactive - Further testing to follow. Lab Interpretation (test Normal code = 87621-7) [facility] HospitalHI 1/2 AG-AB WITH [id number] 07:44:00 Test Item Value Reference Range Interpretation Comments HIV Negative Negative Semi-quantitative (test code = 42684-4) BRIDGET (test code = Non-reactive for HIV-1 BRIDGET) antigen and HIV-1/HIV-2 antibodies. ?No laboratory evidence of HIV infection. ?Repeat in 2-4 weeks if acute HIV infection is suspected. [facility] HospitalSARS-COV-2 [id number] 06:37:00 Test Item Value Reference Range Interpretation Comments CoV-2 IgG (test code Negative Negative Negativ e result = 45878-7) does not rule o ut acute SARS-CoV- 2 infection. Clinical correlation as well as molecul ar diagnostic test are recommended to rule out acu te infection if clinically indicated. BRIDGET (test code = BRIDGET) This test has been approved by FDA for emergency use. Lab Interpretation Normal (test code = 18201-2) [facility] HospitalHEPATITIS B SURFACE [id number] 06:28:00 Test Item Value Reference Range Interpretation Comments HBsAg Semi-Quantitative (test code = Negative Negative 5195-3) [facility] HospitalPRENATAL WORKUP, BLOOD [id number] 05:28:33 Test Item Value Reference Range Interpretation Comments ABO & RH (test code B NEGATIVE Performe d at [facility] = 20) [facility] s [id number] Free: [phone] A No. [id number] IAT (test code = Negative Performed a t [facility] 1185) [facility] s [address]Nsgy Free: [phone] A No. [id number] [facility] HospitalGLUCOSE 1 HOUR POST [id number] 05:10:00 Test Item Value Reference Range Interpretation Comments GLUC 1 HR (test code = 4590286154) 67 mg/dL 120-170 L Lab Interpretation (test code = Abnormal 85329-3) [facility] WITH [id number] 04:00:00 Test Item Value Reference Range Interpretation Comments WBC (test code = See_Comment [Automated 3890-2) message] The sy stem which generated this result transmitted reference range : 4.30 - 11.10 10*3/?L. The reference range was not used to interpret this result as normal/abnormal . RBC (test code = See_Comment [Automated 652-8) message] The sy stem which generated this result transmitted reference range : 3.93 - 5.25 10*6/?L. The reference range was not used to interpret this result as normal/abnormal . HGB (test code = 12.5 g/dL 11.6-15 718-7) HCT (test code = 39.1 % 35.7-45.2 4544-3) MCV (test code = 82.3 fL 80.6-95.5 787-2) MCH (test code = 26.3 pg 25.9-32.8 785-6) MCHC (test code = 32.0 g/dL 31.6-35.1 786-4) RDW-SD (test code = 47.8 fL 39-49.9 07985-6) RDW-CV (test code = 15.8 % 12-15.5 H 788-0) PLT (test code = See_Comment [Automated 777-3) message] The sy stem which generated this result transmitted reference range : 166 - 358 10*3/ ?L. The reference r ian was not used to interpret this result as normal/abnormal . MPV (test code = 10.1 fL 9.5-12.9 86416-6) NRBC/100 WBC (test See_Comment [Automat ed code = 4229900655) message] The system which generated this result transmitted reference range : 0.0 - 10.0 /100 WBCs. The refer ence range was not u sed to interpret th is result as normal/abnormal . NRBC x10^3 (test code <0.01 See_Comment [Auto mated = 0406001497) message] The s ystem which generated this result transmitted reference range : 10*3/?L. The reference range was not used to interpret this result as normal/abnormal . GRAN MAT (NEUT) % 60.4 % (test code = 770-8) IMM GRAN % (test code 0.20 % = 0753694796) LYMPH % (test code = 27.9 % 736-9) MONO % (test code = 8.4 % 5905-5) EOS % (test code = 2.1 % 713-8) BASO % (test code = 1.0 % 706-2) GRAN MAT x10^3(ANC) 3.80 10*3/uL 1.88-7.09 (test code = 9678619579) IMM GRAN x10^3 (test <0.03 0-0.06 code = 3371287733) LYMPH x10^3 (test code 1.75 10*3/uL 1.32-3.29 = 731-0) MONO x10^3 (test code 0.53 10*3/uL 0.33-0.92 = 742-7) EOS x10^3 (test code = 0.13 10*3/uL 0.03-0.39 711-2) BASO x10^3 (test code 0.06 10*3/uL 0.01-0.07 = 704-7) Lab Interpretation Abnormal (test code = 10998-3) [facility] [id number] 18:57:00 Test Item Value Reference Range Interpretation Comments POCT PREG (test code = 1605) Positive On board controls acceptable with C Yes Line (test code = 3574) POCT PREG LOT # (test code = 3575) POCT PREG TEST DATE (test code = 3576) [facility] URINALYSIS W/O SPECIFIC [id number] 18:57:00 Test Item Value Reference Range Interpretation Comments POCT PH U (test code = 3254) 8 mg/dl 5-8 POCT U LEUK EST (test code = Trace Negative - Negative 3263) POCT U NIT (test code = 3262) Neg Negative - Negative POCT U PROT (test code = 3259) Trace Negative - Negative POCT U GLU (test code = 3256) Neg Negative - Negative POCT U KETONE (test code = 3258) None Negative - Negative POCT U BLD (test code = 3257) Neg Negative - Negative [facility] [id number] 18:57:00 Test Item Value Reference Range Interpretation Comments POCT PREG (test code = 1605) Positive On board controls acceptable with C Yes Line (test code = 3574) POCT PREG LOT # (test code = 3575) POCT PREG TEST DATE (test code = 3576) [facility] URINALYSIS W/O SPECIFIC [id number] 18:57:00 Test Item Value Reference Range Interpretation Comments POCT PH U (test code = 3254) 8 mg/dl 5-8 POCT U LEUK EST (test code = Trace Negative - Negative 3263) POCT U NIT (test code = 3262) Neg Negative - Negative POCT U PROT (test code = 3259) Trace Negative - Negative POCT U GLU (test code = 3256) Neg Negative - Negative POCT U KETONE (test code = 3258) None Negative - Negative POCT U BLD (test code = 3257) Neg Negative - Negative [facility] HospitalUrinalysis2020-08-15 04:43:00 Test Item Value Reference Range Interpretation Comments APPEARANCE (test code = Cloudy Clear A 0096001622) COLOR (test code = Yellow Yellow 7829718981) PH (test code = 4.8-8.0 7995960393) SP GRAVITY (test code = 1.003-1.030 9736782065) GLU U QUAL (test code = Normal Normal 5511829094) BLOOD (test code = Negative Negative 6192265380) KETONES (test code = Negative Negative 5656289209) PROTEIN (test code = Negative Negative 2887-8) UROBILIN (test code = Normal Normal 7723825152) BILIRUBIN (test code = Negative Negative 3517213097) NITRITE (test code = Negative Negative 9600758765) LEUK SUZANNA (test code = Negative Negative 7902348776) RBC/HPF (test code = See_Comment [Autom ated message] 9897550059) The system [employer] generated this result transmitted ref erence range: 0 - 3 HP F. The reference range was not used to int erpret this result as normal/abnormal . WBC/HPF (test code = See_Comment [Autom ated message] 2596528872) The system [employer] generated this result transmitted ref erence range: 0 - 5 HP F. The reference range was not used to int erpret this result as normal/abnormal . BACTERIA (test code = Few Negative A 4047070693) SQ EPITH (test code = HPF 9379720675) Lab Interpretation (test Abnormal code = 55730-7) [facility] HospitalComplete Metabolic [id number] 04:27:00 Test Item Value Reference Range Interpretation Comments NA (test code = 138 mmol/L 135-145 4445204186) K (test code = 3.8 mmol/L 3.5-5 3586984409) CL (test code = 104 mmol/L 98-108 4920848669) CO2 TOTAL (test code = 26 mmol/L 23-31 6742502405) AGAP (test code = 2-16 3818460989) BUN (test code = 13 mg/dL 7-23 2198444910) GLUCOSE (test code = 75 mg/dL 70-110 0130901292) CREATININE (test code 0.90 mg/dL 0.5-1.04 = 0433331983) TOTAL BILI (test code 0.1 mg/dL 0.1-1.1 = 7486019061) CALCIUM (test code = 9.7 mg/dL 8.6-10.6 9704111970) T PROTEIN (test code = 8.1 g/dL 6.3-8.2 4149989977) ALBUMIN (test code = 4.7 g/dL 3.5-5 6534391997) ALK PHOS (test code = 48 U/L 34-122 2480748373) ALTv (test code = 15 U/L 5-35 1742-6) AST(SGOT) (test code = 22 U/L 13-40 3190955243) eGFR Calculation mL/min/1.73m2 (Non-) (test code = 1850502916) eGFR Calculation mL/min/1.73m2 () (test code = 5306340774) BRIDGET (test code = BRIDGET) Association of Glomerular Filtration Rate (GFR) and Staging of Kidney Disease* + -+ + ---+| GFR (mL/min/1.73 m2) ?| With Kidney Damage ?| ?Without Kidney Damage+ -------+ ------+ ---------+| ?>90 ?| ?Stage one ?| ? Normal ?+ --+ -+ ----+| ?60-89 ?| ?Stage two ?| ? Decreased GFR ? + -+ + ---+| ?30-59 ?| ?Stage three ?| ? Stage three ? + -+ + ---+| ?15-29 ?| ?Stage four ? | ? Stage four ?+ --+ -+ ----+| ?<15 (or dialysis) ? ?| ?Stage five ? | ? Stage five ?+ --+ -+ ----+ *Each stage assumes the associated GFR level has been in effect for at least three months. ?Stages 1 to 5, with or without kidney disease, indicate chronic kidney disease. Notes: Determination of stages one and two (with eGFR >59mL/min/1.73 m2) requires estimation of kidney damage for at least three months as defined by structural or functional abnormalities of the kidney, manifested by either:Pathological abnormalities or Markers of kidney damage (including abnormalities in the composition of the blood or urine or abnormalities in imaging tests). [facility] with [id number] 04:16:00 Test Item Value Reference Range Interpretation Comments WBC (test code = See_Comment [Automated 2390-2) message] The sy stem which generated this result transmitted reference range : 4.30 - 11.10 10*3/?L. The reference range was not used to interpret this result as normal/abnormal . RBC (test code = See_Comment [Automated 789-8) message] The sy stem which generated this result transmitted reference range : 3.93 - 5.25 10*6/?L. The reference range was not used to interpret this result as normal/abnormal . HGB (test code = 11.1 g/dL 11.6-15 L 718-7) HCT (test code = 35.4 % 35.7-45.2 L 4544-3) MCV (test code = 78.5 fL 80.6-95.5 L 787-2) MCH (test code = 24.6 pg 25.9-32.8 L 785-6) MCHC (test code = 31.4 g/dL 31.6-35.1 L 786-4) RDW-SD (test code = 44.7 fL 39-49.9 48963-6) RDW-CV (test code = 15.8 % 12-15.5 H 788-0) PLT (test code = See_Comment [Automated 777-3) message] The sy stem which generated this result transmitted reference range : 166 - 358 10*3/ ?L. The reference r ian was not used to interpret this result as normal/abnormal . MPV (test code = 9.5 fL 9.5-12.9 98502-2) NRBC/100 WBC (test See_Comment [Automat ed code = 0717797872) message] The system which generated this result transmitted reference range : 0.0 - 10.0 /100 WBCs. The refer ence range was not u sed to interpret th is result as normal/abnormal . NRBC x10^3 (test code <0.01 See_Comment [Auto mated = 4011903745) message] The s ystem which generated this result transmitted reference range : 10*3/?L. The reference range was not used to interpret this result as normal/abnormal . GRAN MAT (NEUT) % 47.1 % (test code = 770-8) IMM GRAN % (test code 0.30 % = 7916563570) LYMPH % (test code = 38.6 % 736-9) MONO % (test code = 9.7 % 5905-5) EOS % (test code = 3.4 % 713-8) BASO % (test code = 0.9 % 706-2) GRAN MAT x10^3(ANC) 3.19 10*3/uL 1.88-7.09 (test code = 0223526666) IMM GRAN x10^3 (test <0.03 0-0.06 code = 9073594152) LYMPH x10^3 (test code 2.61 10*3/uL 1.32-3.29 = 731-0) MONO x10^3 (test code 0.66 10*3/uL 0.33-0.92 = 742-7) EOS x10^3 (test code = 0.23 10*3/uL 0.03-0.39 711-2) BASO x10^3 (test code 0.06 10*3/uL 0.01-0.07 = 704-7) Lab Interpretation Abnormal (test code = 22175-1) [facility] HospitalPOCT [id number] 04:03:00 Test Item Value Reference Range Interpretation Comments POCT PREG (test code = 1605) Negative On board controls acceptable with present C Line (test code = 3574) POCT PREG LOT # (test code = 3575) [id number] POCT PREG TEST DATE (test 03/07/2021 code = 3576) Lab Interpretation (test code = Normal 35905-4) [facility] HospitalUS PELVIS COMPLETE WITH [id number] 23:06:02 Unremarkable ultrasound of the uterus and right ovary. Left ovary could notbe visualized Preliminary Report Dictated by Resident: Milad Chávez MD., have reviewed this study and agreewith the abovereport.EXAM: US PELVIS COMPLETE WITH TRANSVAGINAL HISTORY: 19 years -old Female with pelvic pain . LMP = 02/05/2020. n TECHNIQUE: Transabdominal and transvaginal ultrasound imaging ofthe pelviswas performed including color Doppler evaluation. Fire Support Specialist imageswere obtained for the record. COMPARISON: None FINDINGS: Uterus: The uterus is normal in size, 3.8 x 4.6 x 10.0 cm. The myometrium ishomogenous. No focal lesion is detected. The endometrium is normal inappearance. Endometrial thickness measures 7.0 mm. The cervix isunremarkable. Right Adnexa:Ovary size: 2.4 x 1.7 x 1.5 cmOvary appearance: Few small follicles.Other: No mass. Left Adnexa:The left ovary is nonvisualized. C ul-de-sac: Small amount of fluid is noted within the cul-de-sac, likelyphysiologic. [facility], Radiant Results Inft User - 02/26/2020 6:07 PM CDTEXAM: US PELVIS COMPLETE WITH TRANSVAGINALHISTORY: 19 years-old Female with pelvic pain . LMP = 02/05/2020. [id number]: Transabdominal and transvaginal ultrasound imaging of the pelviswas performed including color Doppler evaluation. Fire Support Specialist imageswere obtained for the record.COMPARISON: NoneFINDINGS:Uterus: The uterus is normal in size, 3.8 x 4.6 x 10.0 cm. The myometrium ishomogenous. No focal lesion is detected. The endometrium is normal inappearance. Endometrial thickness measures 7.0 mm. The cervix isunremarkable.Right Adnexa:Ovary size: 2.4x 1.7 x 1.5 cmOvary appearance: Few small follicles.Other: No mass.Left Adnexa:The left ovary is nonvisualized. Cul-de-sac: Small amount of fluid is noted within the cul-de-sac, likelyphysiologic. IMPRESSIONUnremarkable ultrasound of the uterus and right ovary. Left ovary could notbe visualizedPreliminary Report Dictated by Resident: Milad Liu MD., have reviewed this study and agree with the abovereport.[facility] HospitalCOM. METABOLIC PANEL ([id number]) 2020-02-26 22:42:00 Test Item Value Reference Range Interpretation Comments NA (test code = 138 mmol/L 135-145 1379032731) K (test code = 4.3 mmol/L 3.5-5 2792259511) CL (test code = 107 mmol/L 98-108 7942911810) CO2 TOTAL (test code = 23 mmol/L 23-31 5645057178) AGAP (test code = 2-16 1227197480) BUN (test code = 14 mg/dL 7-23 0679177906) GLUCOSE (test code = 93 mg/dL 70-110 8245603274) CREATININE (test code 0.75 mg/dL 0.5-1.04 = 0578957825) TOTAL BILI (test code 0.3 mg/dL 0.1-1.1 = 6293420964) CALCIUM (test code = 9.8 mg/dL 8.6-10.6 2677511543) T PROTEIN (test code = 7.9 g/dL 6.3-8.2 2543932599) ALBUMIN (test code = 4.7 g/dL 3.5-5 1910597924) ALK PHOS (test code = 41 U/L 34-122 5747487380) ALTv (test code = 12 U/L 5-35 2-6) AST(SGOT) (test code = 19 U/L 13-40 3461765554) eGFR Calculation mL/min/1.73m2 (Non-) (test code = 9864430237) eGFR Calculation mL/min/1.73m2 () (test code = 2488436290) BRIDGET (test code = BRIDGET) Association of Glomerular Filtration Rate (GFR) and Staging of Kidney Disease* + -+ + ---+| GFR (mL/min/1.73 m2) ?| With Kidney Damage ?| ?Without Kidney Damage+ -------+ ------+ ---------+| ?>90 ?| ?Stage one ?| ? Normal ?+ --+ -+ ----+| ?60-89 ?| ?Stage two ?| ? Decreased GFR ? + -+ + ---+| ?30-59 ?| ?Stage three ?| ? Stage three ? + -+ + ---+| ?15-29 ?| ?Stage four ? | ? Stage four ?+ --+ -+ ----+| ?<15 (or dialysis) ? ?| ?Stage five ? | ? Stage five ?+ --+ -+ ----+ *Each stage assumes the associated GFR level has been in effect for at least three months. ?Stages 1 to 5, with or without kidney disease, indicate chronic kidney disease. Notes: Determination of stages one and two (with eGFR >59mL/min/1.73 m2) requires estimation of kidney damage for at least three months as defined by structural or functional abnormalities of the kidney, manifested by either:Pathological abnormalities or Markers of kidney damage (including abnormalities in the composition of the blood or urine or abnormalities in imaging tests). [facility] HospitalURINALYSIS2020-07-21 22:32:00 Test Item Value Reference Range Interpretation Comments APPEARANCE (test code = Hazy Clear A 7045216278) COLOR (test code = Yellow Yellow 2568591941) PH (test code = 4.8-8.0 2030840743) SP GRAVITY (test code = 1.003-1.030 2456125439) GLU U QUAL (test code = Normal Normal 1657421829) BLOOD (test code = Negative Negative INTERFERE NCE FROM 9756040650) ASCORBIC ACID M AY CAUSE FALSE NEG ATIVE RESULT KETONES (test code = Negative Negative 7795181783) PROTEIN (test code = Negative Negative 2887-8) UROBILIN (test code = Normal Normal 4506390796) BILIRUBIN (test code = Negative Negative 3537450200) NITRITE (test code = Negative Negative 5098916687) LEUK SUZANNA (test code = Negative Negative 7420045079) RBC/HPF (test code = See_Comment [Autom ated message] 9481862389) The system [employer] generated this result transmitted ref erence range: 0 - 3 HP F. The reference range was not used to int erpret this result as normal/abnormal . WBC/HPF (test code = See_Comment [Autom ated message] 8290369647) The system [employer] generated this result transmitted ref erence range: 0 - 5 HP F. The reference range was not used to int erpret this result as normal/abnormal . BACTERIA (test code = Few Negative A 0697082674) MUCOUS (test code = Slight Negative LPF A 3907364871) SQ EPITH (test code = HPF 1044331577) Lab Interpretation (test Abnormal code = 27827-5) [facility] WITH [id number] 22:23:00 Test Item Value Reference Range Interpretation Comments WBC (test code = See_Comment [Automated 6690-2) message] The sy stem which generated this result transmitted reference range : 4.30 - 11.10 10*3/?L. The reference range was not used to interpret this result as normal/abnormal . RBC (test code = See_Comment [Automated 789-8) message] The sy stem which generated this result transmitted reference range : 3.93 - 5.25 10*6/?L. The reference range was not used to interpret this result as normal/abnormal . HGB (test code = 11.3 g/dL 11.6-15 L 718-7) HCT (test code = 35.3 % 35.7-45.2 L 4544-3) MCV (test code = 76.9 fL 80.6-95.5 L 787-2) MCH (test code = 24.6 pg 25.9-32.8 L 785-6) MCHC (test code = 32.0 g/dL 31.6-35.1 786-4) RDW-SD (test code = 42.4 fL 39-49.9 62013-3) RDW-CV (test code = 15.4 % 12-15.5 788-0) PLT (test code = See_Comment [Automated 777-3) message] The sy stem which generated this result transmitted reference range : 166 - 358 10*3/ ?L. The reference r ian was not used to interpret this result as normal/abnormal . MPV (test code = 9.4 fL 9.5-12.9 L 10716-9) NRBC/100 WBC (test See_Comment [Automat ed code = 0098204579) message] The system which generated this result transmitted reference range : 0.0 - 10.0 /100 WBCs. The refer ence range was not u sed to interpret th is result as normal/abnormal . NRBC x10^3 (test code <0.01 See_Comment [Auto mated = 5187812798) message] The s ystem which generated this result transmitted reference range : 10*3/?L. The reference range was not used to interpret this result as normal/abnormal . GRAN MAT (NEUT) % 57.4 % (test code = 770-8) IMM GRAN % (test code 0.20 % = 8965986437) LYMPH % (test code = 27.8 % 736-9) MONO % (test code = 10.2 % 5905-5) EOS % (test code = 3.4 % 713-8) BASO % (test code = 1.0 % 706-2) GRAN MAT x10^3(ANC) 3.38 10*3/uL 1.88-7.09 (test code = 3537904759) IMM GRAN x10^3 (test <0.03 0-0.06 code = 1045055861) LYMPH x10^3 (test code 1.64 10*3/uL 1.32-3.29 = 731-0) MONO x10^3 (test code 0.60 10*3/uL 0.33-0.92 = 742-7) EOS x10^3 (test code = 0.20 10*3/uL 0.03-0.39 711-2) BASO x10^3 (test code 0.06 10*3/uL 0.01-0.07 = 704-7) Lab Interpretation Abnormal (test code = 87353-9) [facility] [id number] 22:12:00 Test Item Value Reference Range Interpretation Comments POCT PREG (test code = 1605) negative On board controls acceptable with C present Line (test code = 3574) Lab Interpretation (test code = Normal 04102-7) [facility] [id number] 21:24:00 Test Item Value Reference Range Interpretation Comments POCT PREG (test code = 1605) Negative On board controls acceptable with C Yes Line (test code = 3574) POCT PREG LOT # (test code = 3575) POCT PREG TEST DATE (test code = 3576) [facility] [id number] 21:24:00 Test Item Value Reference Range Interpretation Comments POCT PREG (test code = 1605) Negative On board controls acceptable with C Yes Line (test code = 3574) POCT PREG LOT # (test code = 3575) POCT PREG TEST DATE (test code = 3576) [facility] [id number] 20:36:00 Test Item Value Reference Range Interpretation Comments POCT PREG (test code = 1605) Negative On board controls acceptable with C Yes Line (test code = 3574) POCT PREG LOT # (test code = 3575) POCT PREG TEST DATE (test code = 3576) [facility] HospitalPOCT [id number] 20:36:00 Test Item Value Reference Range Interpretation Comments POCT PREG (test code = 1605) Negative On board controls acceptable with C Yes Line (test code = 3574) POCT PREG LOT # (test code = 3575) POCT PREG TEST DATE (test code = 3576) [facility] HospitalURINE [id number] 12:23:00 Test Item Value Reference Range Interpretation Comments URINE CULTURE (test > 100,000 CFU/mL mixed code = 630-4) aerobic organisms - suggests endogenous microbial contamination [facility] [id number] 12:23:00 Test Item Value Reference Range Interpretation Comments URINE CULTURE (test > 100,000 CFU/mL mixed code = 630-4) aerobic organisms - suggests endogenous microbial contamination [facility] HospitalANTI-D R/O [id number] 10:48:29 Test Item Value Reference Range Interpretation Comments ANTIBODY (test Anti-D Probable RhIg recei osiel code = 683) RhIg 03/29/19.Perform ed at [facility] Blood [address] s [address]Hknc Free: [phone] A No. [id number] [facility] HospitalANTI-D R/O [id number] 10:48:29 Test Item Value Reference Range Interpretation Comments ANTIBODY (test Anti-D Probable RhIg recei osiel code = 683) RhIg 03/29/19.Perform ed at [facility] Blood [address] [facility] s [address]Cmzy Free: [phone] A No. [id number] [facility] HospitalPRENATAL [facility], BLOOD [id number] 08:48:27 Test Item Value Reference Range Interpretation Comments ABO & RH (test code B NEGATIVE Performe d at [facility] = 20) Laboratory [facility] Blood [facility] [address] [facility] s [address]Rfay Free: [phone] A No. [id number] IAT (test code = Positive Performed a t [facility] 1185) Laboratory [facility] Blood [facility] [place] [address]Eueh Free: [phone] A No. [id number] [facility] HospitalPRENATAL WORKUP, BLOOD [id number] 08:48:27 Test Item Value Reference Range Interpretation Comments ABO & RH (test code B NEGATIVE Performe d at [facility] = 20) Laboratory [facility] [place] [address]Wabg Free: [phone] A No. [id number] IAT (test code = Positive Performed a t [facility] 1185) Laboratory [facility] [place] [address]Ceaj Free: [phone] A No. [id number] [facility] URINALYSIS W SPECIFIC [id number] 18:15:00 Test Item Value Reference Range Interpretation Comments POCT U SP GRAV (test code = 3255) . 1.005-1.025 POCT PH U (test code = 3254) . 5-8 POCT U LEUK EST (test code = 3263) . Negative - Negative POCT U NIT (test code = 3262) . Negative - Negative POCT U PROT (test code = 3259) Trace Negative - Negative POCT U GLU (test code = 3256) Neg Negative - Negative POCT U KETONE (test code = 3258) . Negative - Negative POCT U UROBILI (test code = 3260) . 0.2-1 POCT U BILI (test code = 3261) . Negative - Negative POCT U BLD (test code = 3257) . Negative - Negative POCT U COLOR (test code = 3266) POCT U APPEAR (test code = 3267) [facility] URINALYSIS W SPECIFIC [id number] 18:15:00 Test Item Value Reference Range Interpretation Comments POCT U SP GRAV (test code = 3255) . 1.005-1.025 POCT PH U (test code = 3254) . 5-8 POCT U LEUK EST (test code = 3263) . Negative - Negative POCT U NIT (test code = 3262) . Negative - Negative POCT U PROT (test code = 3259) Trace Negative - Negative POCT U GLU (test code = 3256) Neg Negative - Negative POCT U KETONE (test code = 3258) . Negative - Negative POCT U UROBILI (test code = 3260) . 0.2-1 POCT U BILI (test code = 3261) . Negative - Negative POCT U BLD (test code = 3257) . Negative - Negative POCT U COLOR (test code = 3266) POCT U APPEAR (test code = 3267) [facility] HospitalPOPA URINALYSIS W SPECIFIC [id number] 18:15:00 Test Item Value Reference Range Interpretation Comments POCT U SP GRAV (test code = 3255) . 1.005-1.025 POCT PH U (test code = 3254) . 5-8 POCT U LEUK EST (test code = 3263) . Negative - Negative POCT U NIT (test code = 3262) . Negative - Negative POCT U PROT (test code = 3259) Trace Negative - Negative POCT U GLU (test code = 3256) Neg Negative - Negative POCT U KETONE (test code = 3258) . Negative - Negative POCT U UROBILI (test code = 3260) . 0.2-1 POCT U BILI (test code = 3261) . Negative - Negative POCT U BLD (test code = 3257) . Negative - Negative POCT U COLOR (test code = 3266) POCT U APPEAR (test code = 3267) [facility] - SY[facility]ILIS [id number] 14:40:00 Test Item Value Reference Range Interpretation Comments Syphilis IgG/IgM (test Non-reactive Non-reactive code = 80571-6) BRIDGET (test code = BRIDGET) Non-reactive - No serologic evidence of T. pallidum infection. Cannot exclude incubating or early syphilis. Submit a second specimen in 2-4 weeks if syphilis is clinically suspected.Equivocal - Further testing to follow.Reactive - Further testing to follow. Lab Interpretation (test Normal code = 88585-1) [facility] 08/09 AG-AB WITH [id number] 11:17:00 Test Item Value Reference Range Interpretation Comments HIV Negative Negative Semi-quantitative (test code = 73000-8) BRIDGET (test code = Non-reactive for HIV-1 BRIDGET) antigen and HIV-1/HIV-2 antibodies.?No laboratory evidence of HIV infection.?Repeat in 2-4 weeks if acute HIV infection is suspected. [facility] URINALYSIS W SPECIFIC [id number] 18:48:00 Test Item Value Reference Range Interpretation Comments POCT U SP GRAV (test code = 3255) . 1.005-1.025 POCT PH U (test code = 3254) 5 mg/dl 5-8 POCT U LEUK EST (test code = neg Negative - Negative 3263) POCT U NIT (test code = 3262) neg Negative - Negative POCT U PROT (test code = 3259) 1+ Negative - Negative POCT U GLU (test code = 3256) neg Negative - Negative POCT U KETONE (test code = 3258) small Negative - Negative POCT U UROBILI (test code = 3260) . 0.2-1 POCT U BILI (test code = 3261) . Negative - Negative POCT U BLD (test code = 3257) neg Negative - Negative POCT U COLOR (test code = 3266) POCT U APPEAR (test code = 3267) [facility] URINALYSIS W SPECIFIC [id number] 14:59:00 Test Item Value Reference Range Interpretation Comments POCT U SP GRAV (test code = 3255) . 1.005-1.025 POCT PH U (test code = 3254) 5 mg/dl 5-8 POCT U LEUK EST (test code = neg Negative - Negative 3263) POCT U NIT (test code = 3262) neg Negative - Negative POCT U PROT (test code = 3259) trace Negative - Negative POCT U GLU (test code = 3256) neg Negative - Negative POCT U KETONE (test code = 3258) neg Negative - Negative POCT U UROBILI (test code = 3260) . 0.2-1 POCT U BILI (test code = 3261) . Negative - Negative POCT U BLD (test code = 3257) neg Negative - Negative POCT U COLOR (test code = 3266) POCT U APPEAR (test code = 3267) [facility]"
--- NOTE | 2022-01-19 08:47 | ER ---
Nurse's Notes [facility] Name: Jazmin Lott Age: 21 yrs Sex: Female : 2000 Arrival Date: 01/19/2022 Time: 08:21 Bed Waiting Private MD: Diagnosis: Impacted cerumen, right ear;Otalgia, right ear Presentation: 01/19 08:35 Chief complaint: Patient states: she woke up at approx 0400 this morning with right ear ap3 pain 10/10 on a pain scale. patient reports she recently had a viral infection. Coronavirus screen: Client presents with at least one sign or symptom that may indicate coronavirus-19. Ebola Screen: No symptoms or risks identified at this time. Initial Sepsis Screen: Does the patient meet any 2 criteria? No. Patient's initial sepsis screen is negative. Does the patient have a suspected source of infection? No. Patient's initial sepsis screen is negative. Risk Assessment: Do you want to hurt yourself or someone else? Patient reports no desire to harm self or others. Onset of symptoms was January 19, 2022 at 04:00. 08:35 Method Of Arrival: Ambulatory ap3 08:35 Acuity: ADEN 5 ap3 Triage Assessment: 08:42 General: Appears in no apparent distress. Behavior is calm, cooperative. Pain: ap3 Complains of pain in right ear. EENT: Reports pain in right ear. Cardiovascular: Patient's skin is warm and dry. Respiratory: Airway is patent Respiratory effort is even, unlabored. 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 - Social history:: Smoking status: Reported history of juuling and/or vaping. - Family history:: not pertinent. - Hospitalizations: : No recent hospitalization is reported. Screenin:43 Abuse screen: Denies threats or abuse. Nutritional screening: No deficits noted. ap3 Tuberculosis screening: No symptoms or risk factors identified. Fall Risk None identified. Vital Signs: 08:35 BP 126 / 89; Pulse 90; Resp 17; Temp 98.6; Pulse Ox 97% ; Weight 86.18 kg; Height 5 ft. ap3 6 in. (167.64 cm); 08:35 Body Mass Index 30.67 (86.18 kg, 167.64 cm) ap3 ED Course: 08:21 Patient arrived in ED. rg4 08:26 Alhaji Croft MD is Attending Physician. rn 08:42 Triage completed. ap3 08:43 Arm band placed on right wrist. ap3 08:43 Patient has correct armband on for positive identification. Pulse ox on. NIBP on. ap3 08:43 No provider procedures requiring assistance completed. Patient did not have IV access ap3 during this emergency room visit. Administered Medications: No medications were administered Medication: 08:43 VIS not applicable for this client. ap3 Outcome: 08:47 Discharge ordered by . rn 08:53 Discharged to home ambulatory. ap3 08:53 Condition: good 08:53 Discharge instructions given to patient, Instructed on discharge instructions, follow up and referral plans. Demonstrated understanding of instructions, follow-up care. 08:53 Patient left the ED. ap3 Signatures: Alhaji Croft MD MD rn Garcia, Rubi rg4 Daphne Weir RN RN ap3
--- NOTE | 2022-01-19 08:47 | EDPHYS ---
Physician Documentation [facility] Name: Jazmin Lott Age: 21 yrs Sex: Female : 2000 Arrival Date: 01/19/2022 Time: 08:21 Bed Waiting Private MD: ED Physician Alhaji Croft HPI: 01/19 08:42 This 21 yrs old Female presents to ER via Ambulatory with complaints of Ear Pain. rn 08:42 The patient presents with pain, that is acute. The complaints affect the right ear. rn Onset: The symptoms/episode began/occurred this morning. Modifying factors: The symptoms are alleviated by nothing, the symptoms are aggravated by nothing. Associated signs and symptoms: Pertinent negatives: fever, shortness of breath. Severity of symptoms: At their worst the symptoms were moderate in the emergency department the symptoms have improved. The patient has not experienced similar symptoms in the past. The patient has been recently seen by a physician:. Pt reports right ear pain and decreased hearing, seen at another ER today already, given abx for possible ear infection and cleaning of earwax attempted but patient didn't tolerate well. No fever. + recent viral infection. No trauma or possible TM perforation.. 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 - Social history:: Smoking status: Reported history of juuling and/or vaping. - Family history:: not pertinent. - Hospitalizations: : No recent hospitalization is reported. ROS: 08:42 Constitutional: Negative for fever, chills, and weight loss, ENT: + right ear pain and rn decreased hearing Exam: 08:42 Constitutional: This is a well developed, well nourished patient who is awake, alert, rn and in no acute distress. ENT: Left TM and canal normal. Right TM only partially visualized due to cerumen accumulation, no drainage, no swelling of canal. NO foreign body identified. Vital Signs: 08:35 BP 126 / 89; Pulse 90; Resp 17; Temp 98.6; Pulse Ox 97% ; Weight 86.18 kg; Height 5 ft. ap3 6 in. (167.64 cm); 08:35 Body Mass Index 30.67 (86.18 kg, 167.64 cm) ap3 MDM: 08:26 Patient medically screened. rn 08:42 Differential diagnosis: otitis media, otitis externa, foreign body, acute otalgia, rn cerumen impaction. Data reviewed: vital signs, nurses notes, and as a result, I will discharge patient. Counseling: I had a detailed discussion with the patient and/or guardian regarding: the historical points, exam findings, and any diagnostic results supporting the discharge/admit diagnosis, the need for outpatient follow up, to return to the emergency department if symptoms worsen or persist or if there are any questions or concerns that arise at home. Special discussion: I discussed with the patient/guardian in detail that at this point there is no indication for admission to the hospital. It is understood, however, that if the symptoms persist or worsen the patient needs to return immediately for re-evaluation. ED course: Explained to patient has large amount of cerumen that may have been impacted prior to other physician cleaning some out, needs to use OTC wax removal solution since didn't tolerate manual cerumen removal. Otherwise non-toxic and has prescription for abx.. Administered Medications: No medications were administered Disposition Summary: 01/19/22 08:47 Discharge Ordered Location: Home rn Problem: new rn Symptoms: have improved rn Condition: Stable rn Diagnosis - Impacted cerumen, right ear rn - Otalgia, right ear rn Followup: rn - With: Private Physician - When: As needed - Reason: Recheck today's complaints, Re-evaluation by your physician Discharge Instructions: - Discharge Summary Sheet rn - Earwax Buildup, Adult rn - Earache, Adult rn Forms: - Medication Reconciliation Form rn - Thank You Letter rn - Antibiotic application internship - Prescription Opioid Use rn Signatures: Alhaji Croft MD MD rn Prokisch, Amanda, RN RN ap3
[2022-01-19 08:59] VITALS: BP 126/89; TEMP 98.6; O2SAT 97
== END 2022-01-19 08:53 | disposition home or self-care (01) ==
LOC: ER 08:19
DX: H92.01 Otalgia, right ear (principal); H61.21 Impacted cerumen, right ear; Z88.1 Allergy status to other antibiotic agents
CPT/HCPCS: 99283

== ENCOUNTER 2022-08-18 22:11 | Emergency (ER) | payer OTHER ==
--- OUTSIDE RECORDS SUMMARY | 2022-08-18 22:31 | XMS REPORT | Continuity of Care Document ---
:2000 Author Organization [facility] t Address [address] [place] [address] Care Team Providers Name Role Phone Molina Oviedo Primary Care Physician [phone] Visit, Arvind Nurse Attending Clinician Unavailable Molina Oviedo Attending Clinician [phone] MOLINA PAVON Attending Clinician Unavailable Doctor Unassigned, Aten Attending Clinician Unavailable AMANDA BAHENA Attending Clinician Unavailable Jacquelyn Peace MD Attending Clinician [phone] HERON HADLEY Attending Clinician Unavailable Heron Hadley MD Attending Clinician Wyatt Cool DO Attending Clinician Alessandro Kruse MD Attending Clinician [phone] Miah John DO Attending Clinician RiskArvindBdw-Qcupt-Kj/High Attending Clinician Unavailable Marilu Chatman Attending Clinician Cholo Fields Attending Clinician Eduardo PAYNE, Evangelist Attending Clinician Ultrasound, [facility] Attending Clinician Unavailable Gerardo Pettit MD Attending Clinician Clara Petit MD Attending Clinician GERARDO PETTIT Attending Clinician Unavailable Magdy Knutson MD Attending Clinician Alina Valle MD, Fátima Attending Clinician [phone] Rigo Petit DO Attending Clinician 1, [facility] Attending Clinician Unavailable Lab, Pea[facility]chp Attending Clinician Unavailable [facility], Tennille Kaur Attending Clinician [phone] Francis BARRAGANP, Bella Millard Attending Clinician BELLA BLANCO Attending Clinician Unavailable Aden BARRAGANP, Lenin Attending Clinician Evangelist Schulz R Attending Clinician Bushra Conteh MD Attending Clinician Jess Friend MD Attending Clinician Josef ESCOBAR, Amanda Rihcards Attending Clinician Carmelina, Daryn [facility] Attending Clinician Unavailable EVANGELIST CLARK Admitting Clinician Unavailable HERON HADLEY Admitting Clinician Unavailable Heron Hadley MD Admitting Clinician Evangelist Clark MD Admitting Clinician Jess Friend MD Admitting Clinician Payers Payer Name Policy Type Policy Number Effective Date Expiration Date Eloise MORALEZ [id number] 2019 HEALTH 00:00:00 [place]ICAID OF [place] [id number] 2019 00:00:00 Problems Condition Condition Condition Status Onset Resolution Last Treating Co mments Source Name Details Category Date Date Treatment Clinician Date 38 weeks 38 weeks Disease Active Unive rs gestation gestation 8-31 ity of of 00:00: [place] 00 [facility] Labor Labor Disease Active Univers without without 8-31 ity of complicati complic[place] 00 [place] H/O H/O Disease Active 2020- Univers 8-18 ity of delivery, delivery, 00:00: Jose De Jesus miller currently currently 00 [facility] , , Bran ch third third trimester trimester Rh Rh Disease Active Univers negative negative 6-23 ity of state in state in 00:00: [place] antepartum antepartum 00 Me dical period period Branch Anemia of Anemia of Disease Active Uni vers mother in mother in 6-11 ity of , , [place] ante[place] antepartum 00 Me dical Branch Nausea and Nausea and Disease Active 2020- U nivers vomiting vomiting 2-10 ity of during during 00:00: [place] 00 [facility] Supervisio Supervisio Disease Active 2020- U nivers n of n of 1-13 ity of high-risk high-risk 00:00: Jose De Jesus mill[place] 00 [facility] Multiparit Multiparit Disease Active 2020- U nivers y y 1-13 ity of 00:00: [place] 00 Medical Branch History of History of Disease Active 2020-0 U nivers 1-13 ity of delivery delivery 00:00: [place] 00 [facility] Branch Pain Pain Disease Active 2020-0 Univers pelvic pelvic 8-25 ity of 00:00: [place] 00 Medical Branch Encounter Encounter Disease Active 2020-0 Uni vers for IUD for IUD 2-28 ity of removal removal 00:00: [place] 00 Medical Branch Other Other Disease Active 2020-0 Univers general general 2-13 ity of counseling counseling 00:[place] and advice and advice 00 Ia dical [facility] Branch contracept contracept farhat farhat management management Disease Active 2018-08 Univers (spontaneo (spontaneo 1-03 it y of us vaginal us vaginal 00:00[place] delivery[place] delivery[place] 00 [facility] Single Single Disease Active 2018-08 Univers live live 1-03 ity of 00:00: [place] 00 [facility] Branch Anemia, Anemia, Disease Active 2018-08 Univers 1-03 it y of 00:00: [place] [address] Medical Branch Obesity Obesity Disease Active 2019 Univers (BMI (BMI 1-02 ity of 30-39.9) 30-39.9) 00:00: [address] Branch 38 weeks 38 weeks Disease Active 2019 Unive rs gestation gestation 1-02 ity of of of 00:00: [place] 00 [facility] Obesity in Obesity in Disease Active 2019- U nivers 1- ity of 00:00: [address] Branch Supervisio Supervisio Disease Active 2019- U nivers n of n of 0-29 ity of high-risk high-risk [place] [facility] Multiparit Multiparit Disease Active 2019 U nivers y y 0-29 ity of 00:00: [address] Branch Anemia of Anemia of Disease Active 2018-08 Overview: Univers mother in mother in 0-17 Verify if i ty of , , 00:00[place] antepartum antepartum 00 is taking Medical iron/vit/ Branch pnv on next visit Vaginal Vaginal Disease Active 2019- Univers bleeding bleeding 9-10 ity of during during 00:00: [place] 00 [facility] Disease Active 2019- U nivers n of n of 7-16 ity of high-risk high-risk 00:[place] [facility] Round Round Disease Active 2019- Univers ligament ligament 7-16 ity of pain pain 00:00: [address] Branch Pyelectasi Pyelectasi Disease Active 2019 Overview : Univers s s 6-25 Left and ity of 00:00: right [place] [address] pyelectas Medical is noted Branch on usg Rh Rh Disease Active 2019 Overview: Univer s negative negative 3-19 Will need ity of state in state in 00:00: rhogam at Man as antepartum antepartum 00 28 weeks Medical period period Branch Tobacco Tobacco Disease Active 2019 Overview: Univ ers use use 3-15 Quit with ity of 00:00: [place] [facility] Tobacco Tobacco Disease Active 2019 Overview: Univ ers use use 3-15 Quit with ity of 00:00: [place] [address] Medical Branch Tobacco Tobacco Disease Active 2019 Overview: Univ ers use in use in 3-15 Formattin ity of 00:00: g of this [place] 00 note Medical might be Branch different from the original. Reports 1pk/day up until 3 days ago, reports quit History of History of Disease Active Overview : Univers 3-15 Delivery ity of delivery delivery 00:00: at 35 [place] 00 weeks Medical Branch Other Other Disease Active Univers depression depression 5-14 it y of 00:00: [place] 00 Medical [place] Allergies, Adverse Reactions, Alerts Allergy Allergy Status Severity Reaction(s) Onset Inactive Treating Comm ents Source Name Type Date Date Clinician Doxycycl Propensi Active Nausea Univer s ine ty to and/or 03-15 ity of adverse Vomiting 00:00: [place] reaction 00 Medical s Branch DOXYCYCL DRUG Active N/V Univers INE INGREDI 8 ity of 00:00: [place] 00 [facility] NO KNOWN Drug Active Univers ALLERGIE Class ity of S [facility] Social History Social Habit Start Date Stop Date Quantity Comments Source ASSERTION 2020-07-28 University of 00:00:00 [facility] Exposure to 2022-03-23 2022-04-02 Not sure [facility] SARS-CoV-2 (event) 00:00:00 14:42:00 [facility] Alcohol intake 2021-04-08 2021-04-08 Current University of 00:00:00 00:00:00 non-drinker of [facility] alcohol (finding) Branch Cigarettes smoked 2020-08-20 2020-08-20 Univers ity of current (pack per 00:00:00 00:00:00 [facility] ) - Reported Branch Tobacco use and 2020-08-20 2020-08-20 Smokeless tobacco Un iversity of exposure 00:00:00 00:00:00 non-user [facility] Tobacco Comment 2018-10-20 2018-10-20 was smoking 1 Univer sity of 00:00:00 00:00:00 cigarrette a day [facility] dical [place] History of tobacco 2020-08-17 2018-10-06 Cigarette Smoker University of use 00:00:00 00:00:00 [facility] Sex Assigned At 2000 2000 Universit y of 00:00:00 00:00:00 [facility] Smoking Status Start Date Stop Date Source Ex-smoker 2020-08-20 00:00:00 2020-08-20 00:00:00 [facility] Medical Branch Current every day 2020-04-01 00:00:00 [facility] smoker Medical Branch Medications Ordered Filled Start Stop Current Ordering Indication Dosage Frequency Signature Comments Components Source Medication Medication Date Date Medication? Clinician (SIG) Name Name sulfamethox 2020- No [id number] 1{tbl} Take 1 Univers azole-trime 04-14 tablet by it y of thoprim 00:00: 04:59 mouth 2 [place] 400-80 mg 00 :00 (two) Medical per tablet times Branch daily for 5 days. sulfamethox 2020- No [id number] 1{tbl} Take 1 Univers azole-trime 04-14 tablet by it y of thoprim 00:00: 04:59 mouth 2 [place] 400-80 mg 00 :00 (two) Medical per tablet times Branch daily for 5 days. sulfamethox 2020- No [id number] 1{tbl} Take 1 Univers azole-trime 04-14 tablet by it y of thoprim 00:00: 04:59 mouth 2 [place] 400-80 mg 00 :00 (two) Medical per tablet times Branch daily for 5 days. sulfamethox 2020- No [id number] 1{tbl} Take 1 Univers azole-trime 04-14 tablet by it y of thoprim 00:00: 04:59 mouth 2 [place] 400-80 mg 00 :00 (two) Medical per tablet times Branch daily for 5 days. sulfamethox 2020- No [id number] 1{tbl} Take 1 Univers azole-trime 04-14 tablet by it y of thoprim 00:00: 04:59 mouth 2 [place] 400-80 mg 00 :00 (two) Medical per tablet times Branch daily for 5 days. sulfamethox 2020- No [id number] 1{tbl} Take 1 Univers azole-trime 04-14 tablet by it y of thoprim 00:00: 04:59 mouth 2 [place] 400-80 mg 00 :00 (two) Medical per tablet times Branch daily for 5 days. docusate Yes [id number] 240mg Take 1 U nivers calcium 240 9-02 capsule by it y of mg capsule 00:00: mouth once [place] 00 daily as Medical needed for Branch Constipati on. Yes [id number] 1{tbl} Take 1 Univers vitamin 9-02 tablet by ity of w/FA tablet 00:00: mouth [place] 00 daily. Medical Branch ferrous Yes [id number] 325mg Take 1 Un alex sulfate 325 9-02 tablet by ity of mg (65 mg 00:00: mouth 2 [place] iron) 00 (two) Medical tablet times Branch daily. ibuprofen Yes [id number] 600mg Take 1 Univers 600 mg 9-02 tablet by ity of tablet 00:00: mouth [place] 00 every 6 Medical (six) Branch hours as needed (Pain). Take with food or milk. norethindro Yes [id number] .35mg Take 1 Univers ne 0.35 mg 9-02 tablet by ity of tablet 00:00: mouth [place] 00 daily. Medical Branch docusate Yes [id number] 240mg Take 1 U nivers calcium 240 9-02 capsule by it y of mg capsule 00:00: mouth once [place] 00 daily as Medical needed for Branch Constipati on. Yes [id number] 1{tbl} Take 1 Univers vitamin 9-02 tablet by ity of w/FA tablet 00:00: mouth [place] 00 daily. Medical Branch ferrous Yes [id number] 325mg Take 1 Un alex sulfate 325 9-02 tablet by ity of mg (65 mg 00:00: mouth 2 [place] iron) 00 (two) Medical tablet times Branch daily. ibuprofen Yes [id number] 600mg Take 1 Univers 600 mg 9-02 tablet by ity of tablet 00:00: mouth [place] 00 every 6 Medical (six) Branch hours as needed (Pain). Take with food or milk. norethindro Yes [id number] .35mg Take 1 Univers ne 0.35 mg 9-02 tablet by ity of tablet 00:00: mouth [place] 00 daily. Medical Branch docusate Yes [id number] 240mg Take 1 U nivers calcium 240 9-02 capsule by it y of mg capsule 00:00: mouth once [place] 00 daily as Medical needed for Branch Constipati on. Yes [id number] 1{tbl} Take 1 Univers vitamin 9-02 tablet by ity of w/FA tablet 00:00: mouth [place] 00 daily. Medical Branch ferrous Yes [id number] 325mg Take 1 Un alex sulfate 325 9-02 tablet by ity of mg (65 mg 00:00: mouth 2 [place] iron) 00 (two) Medical tablet times Branch daily. ibuprofen Yes [id number] 600mg Take 1 Univers 600 mg 9-02 tablet by ity of tablet 00:00: mouth [place] 00 every 6 Medical (six) Branch hours as needed (Pain). Take with food or milk. norethindro Yes [id number] .35mg Take 1 Univers ne 0.35 mg 9-02 tablet by ity of tablet 00:00: mouth [place] 00 daily. Medical Branch docusate Yes [id number] 240mg Take 1 U nivers calcium 240 9-02 capsule by it y of mg capsule 00:00: mouth once [place] 00 daily as Medical needed for Branch Constipati on. Yes [id number] 1{tbl} Take 1 Univers vitamin 9-02 tablet by ity of w/FA tablet 00:00: mouth [place] 00 daily. Medical Branch ferrous Yes [id number] 325mg Take 1 Un alex sulfate 325 9-02 tablet by ity of mg (65 mg 00:00: mouth 2 [place] iron) 00 (two) Medical tablet times Branch daily. ibuprofen Yes [id number] 600mg Take 1 Univers 600 mg 9-02 tablet by ity of tablet 00:00: mouth [place] 00 every 6 Medical (six) Branch hours as needed (Pain). Take with food or milk. norethindro Yes [id number] .35mg Take 1 Univers ne 0.35 mg 9-02 tablet by ity of tablet 00:00: mouth [place] 00 daily. Medical Branch docusate Yes [id number] 240mg Take 1 U nivers calcium 240 9-02 capsule by it y of mg capsule 00:00: mouth once [place] 00 daily as Medical needed for Branch Constipati on. Yes [id number] 1{tbl} Take 1 Univers vitamin 9-02 tablet by ity of w/FA tablet 00:00: mouth [place] 00 daily. Medical Branch ferrous Yes [id number] 325mg Take 1 Un alex sulfate 325 9-02 tablet by ity of mg (65 mg 00:00: mouth 2 [place] iron) 00 (two) Medical tablet times Branch daily. ibuprofen Yes [id number] 600mg Take 1 Univers 600 mg 9-02 tablet by ity of tablet 00:00: mouth [place] 00 every 6 Medical (six) Branch hours as needed (Pain). Take with food or milk. norethindro Yes [id number] .35mg Take 1 Univers ne 0.35 mg 9-02 tablet by ity of tablet 00:00: mouth [place] 00 daily. Medical Branch docusate Yes [id number] 240mg Take 1 U nivers calcium 240 9-02 capsule by it y of mg capsule 00:00: mouth once [place] 00 daily as Medical needed for Branch Constipati on. Yes [id number] 1{tbl} Take 1 Univers vitamin 9-02 tablet by ity of w/FA tablet 00:00: mouth [place] 00 daily. Medical Branch ferrous Yes [id number] 325mg Take 1 Un alex sulfate 325 9-02 tablet by ity of mg (65 mg 00:00: mouth 2 [place] iron) 00 (two) Medical tablet times Branch daily. ibuprofen Yes [id number] 600mg Take 1 Univers 600 mg 9-02 tablet by ity of tablet 00:00: mouth [place] 00 every 6 Medical (six) Branch hours as needed (Pain). Take with food or milk. norethindro Yes [id number] .35mg Take 1 Univers ne 0.35 mg 9-02 tablet by ity of tablet 00:00: mouth [place] 00 daily. Medical Branch docusate Yes [id number] 240mg Take 1 U nivers calcium 240 9-02 capsule by it y of mg capsule 00:00: mouth once [place] 00 daily as Medical needed for Branch Constipati on. Yes [id number] 1{tbl} Take 1 Univers vitamin 9-02 tablet by ity of w/FA tablet 00:00: mouth [place] 00 daily. Medical Branch ferrous Yes [id number] 325mg Take 1 Un alex sulfate 325 9-02 tablet by ity of mg (65 mg 00:00: mouth 2 [place] iron) 00 (two) Medical tablet times Branch daily. ibuprofen Yes [id number] 600mg Take 1 Univers 600 mg 9-02 tablet by ity of tablet 00:00: mouth [place] 00 every 6 Medical (six) Branch hours as needed (Pain). Take with food or milk. norethindro Yes [id number] .35mg Take 1 Univers ne 0.35 mg 9-02 tablet by ity of tablet 00:00: mouth [place] 00 daily. Medical Branch docusate Yes [id number] 240mg Take 1 U nivers calcium 240 9-02 capsule by it y of mg capsule 00:00: mouth once [place] 00 daily as Medical needed for Branch Constipati on. Yes [id number] 1{tbl} Take 1 Univers vitamin 9-02 tablet by ity of w/FA tablet 00:00: mouth [place] 00 daily. Medical Branch ferrous Yes [id number] 325mg Take 1 Un alex sulfate 325 9-02 tablet by ity of mg (65 mg 00:00: mouth 2 [place] iron) 00 (two) Medical tablet times Branch daily. ibuprofen Yes [id number] 600mg Take 1 Univers 600 mg 9-02 tablet by ity of tablet 00:00: mouth [place] 00 every 6 Medical (six) Branch hours as needed (Pain). Take with food or milk. norethindro Yes [id number] .35mg Take 1 Univers ne 0.35 mg 9-02 tablet by ity of tablet 00:00: mouth [place] 00 daily. Medical Branch cephALEXin 2020- No [id number] 500mg Take 1 Univers 500 mg 03-15 08-16 [id number] tablet by ity o f tablet 00:00: 04:59 mouth 4 [place] 00 :00 (four) Medical times Branch daily for 7 days. ferrous Yes [id number] 325mg Take 1 Un alex sulfate 325 6-11 tablet by ity of mg (65 mg 00:00: mouth 2 [place] iron) 00 (two) Medical tablet times Branch daily. ascorbic Yes [id number] 500mg Take 1 U nivers acid, 6-11 tablet by ity of vitamin C, 00:00: mouth 3 [place] 500 mg 00 (three) Medical tablet times Branch daily. ferrous Yes [id number] 325mg Take 1 Un alex sulfate 325 6-11 tablet by ity of mg (65 mg 00:00: mouth 2 [place] iron) 00 (two) Medical tablet times Branch daily. ascorbic Yes [id number] 500mg Take 1 U nivers acid, 6-11 tablet by ity of vitamin C, 00:00: mouth 3 [place] 500 mg 00 (three) Medical tablet times Branch daily. ferrous Yes [id number] 325mg Take 1 Un alex sulfate 325 6-11 tablet by ity of mg (65 mg 00:00: mouth 2 [place] iron) 00 (two) Medical tablet times Branch daily. ascorbic Yes [id number] 500mg Take 1 U nivers acid, 6-11 tablet by ity of vitamin C, 00:00: mouth 3 [place] 500 mg 00 (three) Medical tablet times Branch daily. ferrous Yes [id number] 325mg Take 1 Un alex sulfate 325 6-11 tablet by ity of mg (65 mg 00:00: mouth 2 [place] iron) 00 (two) Medical tablet times Branch daily. ascorbic Yes [id number] 500mg Take 1 U nivers acid, 6-11 tablet by ity of vitamin C, 00:00: mouth 3 [place] 500 mg 00 (three) Medical tablet times Branch daily. ferrous Yes [id number] 325mg Take 1 Un alex sulfate 325 6-11 tablet by ity of mg (65 mg 00:00: mouth 2 [place] iron) 00 (two) Medical tablet times Branch daily. ascorbic Yes [id number] 500mg Take 1 U nivers acid, 6-11 tablet by ity of vitamin C, 00:00: mouth 3 [place] 500 mg 00 (three) Medical tablet times Branch daily. ferrous Yes [id number] 325mg Take 1 Un alex sulfate 325 6-11 tablet by ity of mg (65 mg 00:00: mouth 2 [place] iron) 00 (two) Medical tablet times Branch daily. ascorbic Yes [id number] 500mg Take 1 U nivers acid, 6-11 tablet by ity of vitamin C, 00:00: mouth 3 [place] 500 mg 00 (three) Medical tablet times Branch daily. ferrous Yes [id number] 325mg Take 1 Un alex sulfate 325 6-11 tablet by ity of mg (65 mg 00:00: mouth 2 [place] iron) 00 (two) Medical tablet times Branch daily. ascorbic Yes [id number] 500mg Take 1 U nivers acid, 6-11 tablet by ity of vitamin C, 00:00: mouth 3 [place] 500 mg 00 (three) Medical tablet times Branch daily. ferrous Yes [id number] 325mg Take 1 Un alex sulfate 325 6-11 tablet by ity of mg (65 mg 00:00: mouth 2 [place] iron) 00 (two) Medical tablet times Branch daily. ascorbic Yes [id number] 500mg Take 1 U nivers acid, 6-11 tablet by ity of vitamin C, 00:00: mouth 3 [place] 500 mg 00 (three) Medical tablet times Branch daily. ferrous Yes [id number] 325mg Take 1 Un alex sulfate 325 6-11 tablet by ity of mg (65 mg 00:00: mouth 2 [place] iron) 00 (two) Medical tablet times Branch daily. ascorbic Yes [id number] 500mg Take 1 U nivers acid, 6-11 tablet by ity of vitamin C, 00:00: mouth 3 [place] 500 mg 00 (three) Medical tablet times Branch daily. ferrous Yes [id number] 325mg Take 1 Un alex sulfate 325 6-11 tablet by ity of mg (65 mg 00:00: mouth 2 [place] iron) 00 (two) Medical tablet times Branch daily. ascorbic Yes [id number] 500mg Take 1 U nivers acid, 6-11 tablet by ity of vitamin C, 00:00: mouth 3 [place] 500 mg 00 (three) Medical tablet times Branch daily. ferrous Yes [id number] 325mg Take 1 Un alex sulfate 325 6-11 tablet by ity of mg (65 mg 00:00: mouth 2 [place] iron) 00 (two) Medical tablet times Branch daily. ascorbic Yes [id number] 500mg Take 1 U nivers acid, 6-11 tablet by ity of vitamin C, 00:00: mouth 3 [place] 500 mg 00 (three) Medical tablet times Branch daily. ascorbic Yes [id number] 500mg Take 1 U nivers acid, 6-11 tablet by ity of vitamin C, 00:00: mouth 3 [place] 500 mg 00 (three) Medical tablet times Branch daily. ascorbic Yes [id number] 500mg Take 1 U nivers acid, 6-11 tablet by ity of vitamin C, 00:00: mouth 3 [place] 500 mg 00 (three) Medical tablet times Branch daily. ascorbic Yes [id number] 500mg Take 1 U nivers acid, 6-11 tablet by ity of vitamin C, 00:00: mouth 3 [place] 500 mg 00 (three) Medical tablet times Branch daily. ascorbic Yes [id number] 500mg Take 1 U nivers acid, 6-11 tablet by ity of vitamin C, 00:00: mouth 3 [place] 500 mg 00 (three) Medical tablet times Branch daily. ascorbic Yes [id number] 500mg Take 1 U nivers acid, 6-11 tablet by ity of vitamin C, 00:00: mouth 3 [place] 500 mg 00 (three) Medical tablet times Branch daily. ascorbic Yes [id number] 500mg Take 1 U nivers acid, 6-11 tablet by ity of vitamin C, 00:00: mouth 3 [place] 500 mg 00 (three) Medical tablet times Branch daily. ascorbic Yes [id number] 500mg Take 1 U nivers acid, 6-11 tablet by ity of vitamin C, 00:00: mouth 3 [place] 500 mg 00 (three) Medical tablet times Branch daily. ascorbic Yes [id number] 500mg Take 1 U nivers acid, 6-11 tablet by ity of vitamin C, 00:00: mouth 3 [place] 500 mg 00 (three) Medical tablet times Branch daily. ascorbic Yes [id number] 500mg Take 1 U nivers acid, 6-11 tablet by ity of vitamin C, 00:00: mouth 3 [place] 500 mg 00 (three) Medical tablet times Branch daily. ascorbic Yes [id number] 500mg Take 1 U nivers acid, 6-11 tablet by ity of vitamin C, 00:00: mouth 3 [place] 500 mg 00 (three) Medical tablet times Branch daily. ascorbic 0 Yes [id number] 500mg Take 1 U nivers acid, 6-11 tablet by ity of vitamin C, 00:00: mouth 3 [place] 500 mg 00 (three) Medical tablet times Branch daily. ascorbic 0 Yes [id number] 500mg Take 1 U nivers acid, 6-11 tablet by ity of vitamin C, 00:00: mouth 3 [place] 500 mg 00 (three) Medical tablet times Branch daily. ferrous 0 202- No [id number] 325mg Take 1 U nivers sulfate 325 6-11 08-18 tablet by it y of mg (65 mg 00:00: 00:00 [place] 2 [place] iron) 00 :00 (two) Medical tablet times Branch daily. fluticasone 0 Yes Univer s propionate 5-20 [...] 00 Medical on nasal Branch spray HYDROXYprog 0 Yes [id number] 250mg Univers est(PF)(pre 4-07 ity of g presv) 19:40: [place] (HANS) 00 Medical 250 mg/mL Branch (1 mL) injection 250 mg HYDROXYprog 0 Yes [id number] 250mg 250 mg, Univers est(PF)(pre 4-07 Intramuscu it y of g presv) 19:40: ana [place] (HANS) 00 QWEEKLY, Medical 250 mg/mL First dose Bran ch (1 mL) on Tue injection 11/12/20 at 250 mg 1445, Until Discontinu ed, Routine HYDROXYprog 0 Yes [id number] 250mg Univers est(PF)(pre 4-07 ity of g presv) 19:40: [place] (HANS) 00 Medical 250 mg/mL Branch (1 mL) injection 250 mg HYDROXYprog 0 Yes [id number] 250mg 250 mg, Univers est(PF)(pre 4-07 Intramuscu it y of g presv) 19:40: lar, [place] (HANS) 00 QWEEKLY, Medical 250 mg/mL First dose Bran ch (1 mL) on Wed injection 11/12/20 at 250 mg 1445, Until Discontinu ed, Routine HYDROXYprog 2021-0 Yes [id number] 250mg Univers est(PF)(pre 4-07 ity of g presv) 19:40: [place] (HANS) 00 Medical 250 mg/mL Branch (1 mL) injection 250 mg HYDROXYprog 2021-0 Yes [id number] 250mg Univers est(PF)(pre 4-07 ity of g presv) 19:40: [place] ([facility]) 00 Medical 250 mg/mL Branch (1 mL) injection 250 mg HYDROXYprog 2021-0 Yes [id number] 250mg Univers est(PF)(pre 4- ity of g presv) 19:40: [place] (HANS) Medical 250 mg/mL Branch (1 mL) injection 250 mg HYDROXYprog 2021-0 Yes [id number] 250mg 250 mg, Univers est(PF)(pre -07 Intramuscu it y of g presv) 19:40: [place], [place] (HANS) 00 QWEEKLY, Medical 250 mg/mL First dose Bran ch (1 mL) on Wed injection 11/12/20 at 250 mg 1445, Until Discontinu ed, Routine HYDROXYprog 2021-0 Yes [id number] 250mg Univers est(PF)(pre 4- ity of g presv) 19:40: [place] (HANS) Medical 250 mg/mL Branch (1 mL) injection 250 mg HYDROXYprog 2021-0 Yes [id number] 250mg Univers est(PF)(pre 4- ity of g presv) 19:40: [place] ([facility]) 00 Medical 250 mg/mL Branch (1 mL) injection 250 mg HYDROXYprog 2021-0 Yes [id number] 250mg 250 mg, Univers est(PF)(pre 4-07 Intramuscu it y of g presv) 19:40: [place], [place] (HANS) 00 QWEEKLY, Medical 250 mg/mL First dose Bran ch (1 mL) on Wed injection 11/12/20 at 250 mg 1445, Until Discontinu ed, Routine HYDROXYprog 2021-0 Yes [id number] 250mg Univers est(PF)(pre 4-07 ity of g presv) 19:40: [place] (HANS) 00 Medical 250 mg/mL Branch (1 mL) injection 250 mg HYDROXYprog 2021-0 Yes [id number] 250mg [facility](PF)(pre 4-07 ity of g presv) 19:40: [place] ([facility]) 00 Medical 250 mg/mL Branch (1 mL) injection 250 mg HYDROXYprog 2021-0 Yes [id number] 250mg 250 mg, [facility] est(PF)(pre 4-07 Intramuscu it y of g presv) 19:40: lar, [place] ([facility]) 00 QWEEKLY, Medical 250 mg/mL First dose Bran ch (1 mL) on Wed injection 11/12/20 at 250 mg 1445, Until Discontinu ed, Routine HYDROXYprog 2021-0 Yes [id number] 250mg [facility] est(PF)(pre 4- ity of g presv) 19:40: [place] ([facility]) 00 Medical 250 mg/mL Branch (1 mL) injection 250 mg HYDROXYprog 2021-0 Yes [id number] 250mg [facility] est(PF)(pre 4- ity of g presv) 19:40: [place] ([facility]) 00 Medical 250 mg/mL Branch (1 mL) injection 250 mg HYDROXYprog 2021-0 Yes [id number] 250mg 250 mg, [facility] est(PF)(pre 4-07 Intramuscu it y of g presv) 19:40: lar, [place] ([facility]) 00 QWEEKLY, Medical 250 mg/mL First dose Bran ch (1 mL) on Wed injection 11/12/20 at 250 mg 1445, Until Discontinu ed, Routine HYDROXYprog 2021-0 Yes [id number] 250mg [facility] est(PF)(pre 4-07 ity of g presv) 19:40: [place] ([facility]) 00 Medical 250 mg/mL Branch (1 mL) injection 250 mg HYDROXYprog 2021-0 Yes [id number] 250mg [facility] est(PF)(pre 4-07 ity of g presv) 19:40: [place] ([facility]) 00 Medical 250 mg/mL Branch (1 mL) injection 250 mg HYDROXYprog 2021-0 Yes [id number] 250mg [facility] est(PF)(pre 4-07 ity of g presv) 19:40: [place] ([facility]) 00 Medical 250 mg/mL Branch (1 mL) injection 250 mg HYDROXYprog 2021-0 Yes [id number] 250mg 250 mg, [facility] est(PF)(pre 4- Intramuscu it y of g presv) 19:40: ana [place] ([facility]) 00 QWEEKLY, Medical 250 mg/mL First dose Bran ch (1 mL) on Wed injection 11/12/20 at 250 mg 1445, Until Discontinu ed, Routine HYDROXYprog 2021-0 Yes [id number] 250mg [facility] est(PF)(pre - ity of g presv) 19:40: [place] ([facility]) 00 Medical 250 mg/mL Branch (1 mL) injection 250 mg HYDROXYprog 2021-0 Yes [id number] 250mg [facility] est(PF)(pre - ity of g presv) 19:40: [place] ([facility]) 00 Medical 250 mg/mL Branch (1 mL) injection 250 mg HYDROXYprog 2021-0 Yes [id number] 250mg 250 mg, [facility] est(PF)(pre 11-12 Intramuscu it y of g presv) 19:40: ana [place] ([facility]) 00 QWEEKLY, Medical 250 mg/mL First dose Bran ch (1 mL) on Wed injection 11/12/20 at 250 mg 1445, Until Discontinu ed, Routine HYDROXYprog 2021-0 Yes [id number] 250mg [facility] est(PF)(pre - ity of g presv) 19:40: [place] ([facility]) 00 Medical 250 mg/mL Branch (1 mL) injection 250 mg HYDROXYprog 2021-0 Yes [id number] 250mg [facility] est(PF)(pre - ity of g presv) 19:40: [place] ([facility]) 00 Medical 250 mg/mL Branch (1 mL) injection 250 mg HYDROXYprog 2021-0 Yes [id number] 250mg 250 mg, [facility] est(PF)(pre - Intramuscu it y of g presv) 19:40: ana [place] ([facility]) 00 QWEEKLY, Medical 250 mg/mL First dose Bran ch (1 mL) on Wed injection 11/12/20 at 250 mg 1445, Until Discontinu ed, Routine HYDROXYprog 2021-0 Yes [id number] 250mg [facility] est(PF)(pre 4- ity of g presv) 19:40: [place] ([facility]) 00 Medical 250 mg/mL Branch (1 mL) injection 250 mg HYDROXYprog 2021-0 Yes [id number] 250mg [facility] est(PF)(pre 11-12 ity of g presv) 19:40: [place] ([facility]) 00 Medical 250 mg/mL Branch (1 mL) injection 250 mg HYDROXYprog 2021-0 Yes [id number] 250mg [facility] est(PF)(pre 11-12 ity of g presv) 19:40: [place] ([facility]) 00 Medical 250 mg/mL Branch (1 mL) injection 250 mg HYDROXYprog 2021-0 Yes [id number] 250mg [facility] est(PF)(pre 11-12 ity of g presv) 19:40: [place] ([facility]) 00 Medical 250 mg/mL Branch (1 mL) injection 250 mg HYDROXYprog 2021-0 Yes [id number] 250mg 250 mg, [facility] est(PF)(pre 11-12 Intramuscu it y of g presv) 19:40: ana, [place] ([facility]) 00 QWEEKLY, Medical 250 mg/mL First dose Bran ch (1 mL) on Wed injection 11/12/20 at 250 mg 1445, Until Discontinu ed, Routine HYDROXYprog 2021-0 Yes [id number] 250mg [facility] est(PF)(pre 11-12 ity of g presv) 19:40: [place] ([facility]) 00 Medical 250 mg/mL Branch (1 mL) injection 250 mg HYDROXYprog 2021-0 Yes [id number] 250mg 250 mg, [facility] est(PF)(pre 11-12 Intramuscu it y of g presv) 19:40: lar, [place] ([facility]) 00 QWEEKLY, Medical 250 mg/mL First dose Bran ch (1 mL) on Wed injection 11/12/20 at 250 mg 1445, Until Discontinu ed, Routine HYDROXYprog 2021-0 Yes [id number] 250mg [facility] est(PF)(pre 11-12 ity of g presv) 19:40: [place] ([facility]) 00 Medical 250 mg/mL Branch (1 mL) injection 250 mg HYDROXYprog 2021-0 Yes [id number] 250mg 250 mg, [facility] est(PF)(pre 11-12 Intramuscu it y of g presv) 19:40: lar, [place] ([facility]) 00 QWEEKLY, Medical 250 mg/mL First dose Bran ch (1 mL) on Wed injection 11/12/20 at 250 mg 1445, Until Discontinu ed, Routine HYDROXYprog 2021-0 Yes [id number] 250mg [facility] est(PF)(pre 4-07 ity of g presv) 19:40: [place] ([facility]) 00 Medical 250 mg/mL Branch (1 mL) injection 250 mg HYDROXYprog 2021-0 Yes [id number] 250mg 250 mg, [facility] est(PF)(pre 4-07 Intramuscu it y of g presv) 19:40: lar, [place] ([facility]) 00 QWEEKLY, Medical 250 mg/mL First dose Bran ch (1 mL) on Wed injection 11/12/20 at 250 mg 1445, Until Discontinu ed, Routine HYDROXYprog 2021-0 Yes [id number] 250mg [facility] est(PF)(pre 4-07 ity of g presv) 19:40: [place] ([facility]) 00 Medical 250 mg/mL Branch (1 mL) injection 250 mg HYDROXYprog 2021-0 Yes [id number] 250mg [facility] est(PF)(pre 4-07 ity of g presv) 19:40: [place] ([facility]) 00 Medical 250 mg/mL Branch (1 mL) injection 250 mg HYDROXYprog 2021-0 Yes [id number] 250mg [facility] est(PF)(pre 4-07 ity of g presv) 19:40: [place] ([facility]) 00 Medical 250 mg/mL Branch (1 mL) injection 250 mg HYDROXYprog 2021-0 Yes [id number] 250mg [facility] est(PF)(pre 4-07 ity of g presv) 19:40: [place] ([facility]) 00 Medical 250 mg/mL Branch (1 mL) injection 250 mg HYDROXYprog 2021-0 Yes [id number] 250mg [facility] est(PF)(pre 4-07 ity of g presv) 19:40: [place] ([facility]) 00 Medical 250 mg/mL Branch (1 mL) injection 250 mg HYDROXYprog 2021-0 Yes [id number] 250mg [facility] est(PF)(pre 4-07 ity of g presv) 19:40: [place] ([facility]) 00 Medical 250 mg/mL Branch (1 mL) injection 250 mg HYDROXYprog 2021-0 Yes [id number] 250mg 250 mg, [facility] est(PF)(pre 4- Intramuscu it y of g presv) 19:40: [place] [facility] ([facility]) 00 QWEEKLY, Medical 250 mg/mL First dose Bran ch (1 mL) on Wed injection 11/12/20 at 250 mg 1445, Until Discontinu ed, Routine HYDROXYprog 2021-0 Yes [id number] 250mg [facility] est(PF)(pre - ity of g presv) 19:40: [place] ([facility]) 00 Medical 250 mg/mL Branch (1 mL) injection 250 mg HYDROXYprog 2021-0 Yes [id number] 250mg 250 mg, [facility] est(PF)(pre 11-12 Intramuscu it y of g presv) 19:40: ana [place] ([facility]) 00 QWEEKLY, Medical 250 mg/mL First dose Bran ch (1 mL) on Wed injection 11/12/20 at 250 mg 1445, Until Discontinu ed, Routine HYDROXYprog 2021-0 Yes [id number] 250mg [facility] est(PF)(pre - ity of g presv) 19:40: [place] ([facility]) 00 Medical 250 mg/mL Branch (1 mL) injection 250 mg HYDROXYprog 2021-0 Yes [id number] 250mg 250 mg, [facility] est(PF)(pre 11-12 Intramuscu it y of g presv) 19:40: [place] pe[place] ([facility]) 00 QWEEKLY, Medical 250 mg/mL First dose Bran ch (1 mL) on Wed injection 11/12/20 at 250 mg 1445, Until Discontinu ed, Routine HYDROXYprog 2021-0 Yes [id number] 250mg [facility] est(PF)(pre - ity of g presv) 19:40: [place] ([facility]) 00 Medical 250 mg/mL Branch (1 mL) injection 250 mg HYDROXYprog 2021-0 Yes [id number] 250mg 250 mg, [facility] est(PF)(pre - Intramuscu it y of g presv) 19:40: [place] pe[place] ([facility]) 00 QWEEKLY, Medical 250 mg/mL First dose Bran ch (1 mL) on Wed injection 11/12/20 at 250 mg 1445, Until Discontinu ed, Routine HYDROXYprog 2021-0 Yes [id number] 250mg [facility] est(PF)(pre - ity of g presv) 19:40: [place] ([facility]) 00 Medical 250 mg/mL Branch (1 mL) injection 250 mg HYDROXYprog 2021-0 Yes [id number] 250mg 250 mg, [facility] est(PF)(pre 11-12 Intramuscu it y of g presv) 19:40: ana [place] ([facility]) 00 QWEEKLY, Medical 250 mg/mL First dose Bran ch (1 mL) on Wed injection 11/12/20 at 250 mg 1445, Until Discontinu ed, Routine HYDROXYprog 2021-0 Yes [id number] 250mg [facility] est(PF)(pre - ity of g presv) 19:40: [place] ([facility]) 00 Medical 250 mg/mL Branch (1 mL) injection 250 mg HYDROXYprog 2021-0 Yes [id number] 250mg 250 mg, [facility] est(PF)(pre 11-12 Intramuscu it y of g presv) 19:40: ana, [place] ([facility]) 00 QWEEKLY, Medical 250 mg/mL First dose Bran ch (1 mL) on Wed injection 11/12/20 at 250 mg 1445, Until Discontinu ed, Routine HYDROXYprog 2021-0 Yes [id number] 250mg [facility] est(PF)(pre 11-12 ity of g presv) 19:40: [place] ([facility]) 00 Medical 250 mg/mL Branch (1 mL) injection 250 mg HYDROXYprog 2021-0 Yes [id number] 250mg 250 mg, [facility] est(PF)(pre 11-12 Intramuscu it y of g presv) 19:40: ana [place] ([facility]) 00 QWEEKLY, Medical 250 mg/mL First dose Bran ch (1 mL) on Wed injection 11/12/20 at 250 mg 1445, Until Discontinu ed, Routine HYDROXYprog 2021-0 Yes [id number] 250mg [facility] est(PF)(pre - ity of g presv) 19:40: [place] ([facility]) 00 Medical 250 mg/mL Branch (1 mL) injection 250 mg HYDROXYprog 2021-0 Yes [id number] 250mg 250 mg, [facility] est(PF)(pre 11-12 Intramuscu it y of g presv) 19:40: lar, [place] ([facility]) 00 QWEEKLY, Medical 250 mg/mL First dose Bran ch (1 mL) on Tue injection 11/12/20 at 250 mg 1445, Until Discontinu ed, Routine HYDROXYprog 2021-0 Yes [id number] 250mg [facility] est(PF)(pre - ity of g presv) 19:40: [place] ([facility]) 00 Medical 250 mg/mL Branch (1 mL) injection 250 mg HYDROXYprog 2021-0 Yes [id number] 250mg 250 mg, [facility] est(PF)(pre 11-12 Intramuscu it y of g presv) 19:40: lar, [place] ([facility]) 00 QWEEKLY, Medical 250 mg/mL First dose Bran ch (1 mL) on Tue injection 11/12/20 at 250 mg 1445, Until Discontinu ed, Routine HYDROXYprog 2021-0 Yes [id number] 250mg [facility] est(PF)(pre 11-12 ity of g presv) 19:40: [place] ([facility]) 00 Medical 250 mg/mL Branch (1 mL) injection 250 mg HYDROXYprog 2021-0 Yes [id number] 250mg [facility] est(PF)(pre 4-07 ity of g presv) 19:40: [place] ([facility]) 00 Medical 250 mg/mL Branch (1 mL) injection 250 mg HYDROXYprog 2021-0 Yes [id number] 250mg [facility] est(PF)(pre - ity of g presv) 19:40: [place] ([facility]) 00 Medical 250 mg/mL Branch (1 mL) injection 250 mg HYDROXYprog 2021-0 Yes [id number] 250mg [facility] est(PF)(pre 4-07 ity of g presv) 19:40: [place] ([facility]) 00 Medical 250 mg/mL Branch (1 mL) injection 250 mg HYDROXYprog 2021-0 Yes [id number] 250mg [facility] est(PF)(pre 4-07 ity of g presv) 19:40: [place] ([facility]) 00 Medical 250 mg/mL Branch (1 mL) injection 250 mg proMETHazin 2021-0 Yes [id number] 25mg Take 1 Univers e 25 mg 2-18 tablet by ity of tablet 00:00: mouth [place] 00 every 6 Medical (six) Branch hours as needed for Nausea and Vomiting (N/V). proMETHazin 2020-0 Yes [id number] 25mg Take 1 Univers e 25 mg 2-18 tablet by ity of tablet 00:00: mouth [place] 00 every 6 Medical (six) Branch hours as needed for Nausea and Vomiting (N/V). proMETHazin 2020-0 Yes [id number] 25mg Take 1 Univers e 25 mg 2-18 tablet by ity of tablet 00:00: mouth [place] 00 every 6 Medical (six) Branch hours as needed for Nausea and Vomiting (N/V). proMETHazin 2020-0 Yes [id number] 25mg Take 1 Univers e 25 mg 2-18 tablet by ity of tablet 00:00: mouth [place] 00 every 6 Medical (six) Branch hours as needed for Nausea and Vomiting (N/V). proMETHazin 2020-0 Yes [id number] 25mg Take 1 Univers e 25 mg 2-18 tablet by ity of tablet 00:00: mouth [place] 00 every 6 Medical (six) Branch hours as needed for Nausea and Vomiting (N/V). proMETHazin 2020-0 Yes [id number] 25mg Take 1 Univers e 25 mg 2-18 tablet by ity of tablet 00:00: mouth [place] 00 every 6 Medical (six) Branch hours as needed for Nausea and Vomiting (N/V). proMETHazin 2020-0 Yes [id number] 25mg Take 1 Univers e 25 mg 2-18 tablet by ity of tablet 00:00: mouth [place] 00 every 6 Medical (six) Branch hours as needed for Nausea and Vomiting (N/V). proMETHazin 2020-0 Yes [id number] 25mg Take 1 Univers e 25 mg 2-18 tablet by ity of tablet 00:00: mouth [place] 00 every 6 Medical (six) Branch hours as needed for Nausea and Vomiting (N/V). proMETHazin 1-0 Yes [id number] 25mg Take 1 Univers e 25 mg 2-18 tablet by ity of tablet 00:00: mouth [place] 00 every 6 Medical (six) Branch hours as needed for Nausea and Vomiting (N/V). proMETHazin 2020-0 Yes [id number] 25mg Take 1 Univers e 25 mg 2-18 tablet by ity of tablet 00:00: mouth [place] 00 every 6 Medical (six) Branch hours as needed for Nausea and Vomiting (N/V). proMETHazin 1-0 Yes [id number] 25mg Take 1 Univers e 25 mg 2-18 tablet by ity of tablet 00:00: mouth [place] 00 every 6 Medical (six) Branch hours as needed for Nausea and Vomiting (N/V). proMETHazin 2020-0 Yes [id number] 25mg Take 1 Univers e 25 mg 2-18 tablet by ity of tablet 00:00: mouth [place] 00 every 6 Medical (six) Branch hours as needed for Nausea and Vomiting (N/V). proMETHazin 2020-0 Yes [id number] 25mg Take 1 Univers e 25 mg 2-18 tablet by ity of tablet 00:00: mouth [place] 00 every 6 Medical (six) Branch hours as needed for Nausea and Vomiting (N/V). proMETHazin 2020-0 Yes [id number] 25mg Take 1 Univers e 25 mg 2-18 tablet by ity of tablet 00:00: mouth [place] 00 every 6 Medical (six) Branch hours as needed for Nausea and Vomiting (N/V). proMETHazin 2020-0 Yes [id number] 25mg Take 1 Univers e 25 mg 2-18 tablet by ity of tablet 00:00: mouth [place] 00 every 6 Medical (six) Branch hours as needed for Nausea and Vomiting (N/V). proMETHazin 2020-0 Yes [id number] 25mg Take 1 Univers e 25 mg 2-18 tablet by ity of tablet 00:00: mouth [place] 00 every 6 Medical (six) Branch hours as needed for Nausea and Vomiting (N/V). proMETHazin 2020-0 Yes [id number] 25mg Take 1 Univers e 25 mg 2-18 tablet by ity of tablet 00:00: mouth [place] 00 every 6 Medical (six) Branch hours as needed for Nausea and Vomiting (N/V). proMETHazin 2021-0 Yes [id number] 25mg Take 1 Univers e 25 mg 2-18 tablet by ity of tablet 00:00: mouth [place] 00 every 6 Medical (six) Branch hours as needed for Nausea and Vomiting (N/V). proMETHazin 2021-0 Yes [id number] 25mg Take 1 Univers e 25 mg 2-18 tablet by ity of tablet 00:00: mouth [place] 00 every 6 Medical (six) Branch hours as needed for Nausea and Vomiting (N/V). proMETHazin 2020-0 Yes [id number] 25mg Take 1 Univers e 25 mg 2-18 tablet by ity of tablet 00:00: mouth [place] 00 every 6 Medical (six) Branch hours as needed for Nausea and Vomiting (N/V). proMETHazin 2020-0 Yes [id number] 25mg Take 1 Univers e 25 mg 2-18 tablet by ity of tablet 00:00: mouth [place] 00 every 6 Medical (six) Branch hours as needed for Nausea and Vomiting (N/V). proMETHazin 2020-0 Yes [id number] 25mg Take 1 Univers e 25 mg 2-18 tablet by ity of tablet 00:00: mouth [place] 00 every 6 Medical (six) Branch hours as needed for Nausea and Vomiting (N/V). proMETHazin 2020-0 Yes [id number] 25mg Take 1 Univers e 25 mg 2-18 tablet by ity of tablet 00:00: mouth [place] 00 every 6 Medical (six) Branch hours as needed for Nausea and Vomiting (N/V). proMETHazin 2020-0 Yes [id number] 25mg Take 1 Univers e 25 mg 2-18 tablet by ity of tablet 00:00: mouth [place] 00 every 6 Medical (six) Branch hours as needed for Nausea and Vomiting (N/V). proMETHazin 2020-0 Yes [id number] 25mg Take 1 Univers e 25 mg 2-18 tablet by ity of tablet 00:00: mouth [place] 00 every 6 Medical (six) Branch hours as needed for Nausea and Vomiting (N/V). proMETHazin 2020-0 Yes [id number] 25mg Take 1 Univers e 25 mg 2-18 tablet by ity of tablet 00:00: mouth [place] 00 every 6 Medical (six) Branch hours as needed for Nausea and Vomiting (N/V). proMETHazin 2020-0 Yes [id number] 25mg Take 1 Univers e 25 mg 2-18 tablet by ity of tablet 00:00: mouth [place] 00 every 6 Medical (six) Branch hours as needed for Nausea and Vomiting (N/V). proMETHazin 2020-0 Yes [id number] 25mg Take 1 Univers e 25 mg 2-18 tablet by ity of tablet 00:00: mouth [place] 00 every 6 Medical (six) Branch hours as needed for Nausea and Vomiting (N/V). proMETHazin 1-0 Yes [id number] 25mg Take 1 Univers e 25 mg 2-18 tablet by ity of tablet 00:00: mouth [place] 00 every 6 Medical (six) Branch hours as needed for Nausea and Vomiting (N/V). proMETHazin 2020-0 Yes [id number] 25mg Take 1 Univers e 25 mg 2-18 tablet by ity of tablet 00:00: mouth [place] 00 every 6 Medical (six) Branch hours as needed for Nausea and Vomiting (N/V). proMETHazin 2020-0 Yes [id number] 25mg Take 1 Univers e 25 mg 2-18 tablet by ity of tablet 00:00: mouth [place] 00 every 6 Medical (six) Branch hours as needed for Nausea and Vomiting (N/V). proMETHazin 2020-0 Yes [id number] 25mg Take 1 Univers e 25 mg 2-18 tablet by ity of tablet 00:00: mouth [place] 00 every 6 Medical (six) Branch hours as needed for Nausea and Vomiting (N/V). proMETHazin 2020-0 Yes [id number] 25mg Take 1 Univers e 25 mg 2-18 tablet by ity of tablet 00:00: mouth [place] 00 every 6 Medical (six) Branch hours as needed for Nausea and Vomiting (N/V). proMETHazin 2020-0 Yes [id number] 25mg Take 1 Univers e 25 mg 2-18 tablet by ity of tablet 00:00: mouth [place] 00 every 6 Medical (six) Branch hours as needed for Nausea and Vomiting (N/V). proMETHazin 2020-0 Yes [id number] 25mg Take 1 Univers e 25 mg 2-18 tablet by ity of tablet 00:00: mouth [place] 00 every 6 Medical (six) Branch hours as needed for Nausea and Vomiting (N/V). proMETHazin 2020-0 Yes [id number] 25mg Take 1 Univers e 25 mg 2-18 tablet by ity of tablet 00:00: mouth [place] 00 every 6 Medical (six) Branch hours as needed for Nausea and Vomiting (N/V). proMETHazin 1-0 Yes [id number] 25mg Take 1 Univers e 25 mg 2-18 tablet by ity of tablet 00:00: mouth [place] 00 every 6 Medical (six) Branch hours as needed for Nausea and Vomiting (N/V). proMETHazin 2020-0 Yes [id number] 25mg Take 1 Univers e 25 mg 2-18 tablet by ity of tablet 00:00: mouth [place] 00 every 6 Medical (six) Branch hours as needed for Nausea and Vomiting (N/V). proMETHazin 2020-0 Yes [id number] 25mg Take 1 Univers e 25 mg 2-18 tablet by ity of tablet 00:00: mouth [place] 00 every 6 Medical (six) Branch hours as needed for Nausea and Vomiting (N/V). proMETHazin 2020-0 Yes [id number] 25mg Take 1 Univers e 25 mg 2-18 tablet by ity of tablet 00:00: mouth [place] 00 every 6 Medical (six) Branch hours as needed for Nausea and Vomiting (N/V). proMETHazin 2020-0 Yes [id number] 25mg Take 1 Univers e 25 mg 2-18 tablet by ity of tablet 00:00: mouth [place] 00 every 6 Medical (six) Branch hours as needed for Nausea and Vomiting (N/V). proMETHazin 2020-0 Yes [id number] 25mg Take 1 Univers e 25 mg 2-18 tablet by ity of tablet 00:00: mouth [place] 00 every 6 Medical (six) Branch hours as needed for Nausea and Vomiting (N/V). proMETHazin 2020-0 Yes [id number] 25mg Take 1 Univers e 25 mg 2-18 tablet by ity of tablet 00:00: mouth [place] 00 every 6 Medical (six) Branch hours as needed for Nausea and Vomiting (N/V). proMETHazin 2020-0 Yes [id number] 25mg Take 1 Univers e 25 mg 2-18 tablet by ity of tablet 00:00: mouth [place] 00 every 6 Medical (six) Branch hours as needed for Nausea and Vomiting (N/V). proMETHazin 2020-0 Yes [id number] 25mg Take 1 Univers e 25 mg 2-18 tablet by ity of tablet 00:00: mouth [place] 00 every 6 Medical (six) Branch hours as needed for Nausea and Vomiting (N/V). proMETHazin 2020-0 Yes [id number] 25mg Take 1 Univers e 25 mg 2-18 tablet by ity of tablet 00:00: mouth [place] 00 every 6 Medical (six) Branch hours as needed for Nausea and Vomiting (N/V). proMETHazin 2020-0 Yes [id number] 25mg Take 1 Univers e 25 mg 2-18 tablet by ity of tablet 00:00: mouth [place] 00 every 6 Medical (six) Branch hours as needed for Nausea and Vomiting (N/V). proMETHazin 2020-0 Yes [id number] 25mg Take 1 Univers e 25 mg 2-18 tablet by ity of tablet 00:00: mouth [place] 00 every 6 Medical (six) Branch hours as needed for Nausea and Vomiting (N/V). proMETHazin 2020-0 Yes [id number] 25mg Take 1 Univers e 25 mg 2-18 tablet by ity of tablet 00:00: mouth [place] 00 every 6 Medical (six) Branch hours as needed for Nausea and Vomiting (N/V). proMETHazin 2020-0 Yes [id number] 25mg Take 1 [facility] e 25 mg 2-18 tablet by ity of tablet 00:00: mouth [place] 00 every 6 Medical (six) Branch hours as needed for Nausea and Vomiting (N/V). proMETHazin 2020-0 Yes [id number] 25mg Take 1 [facility] e 25 mg 2-18 tablet by ity of tablet 00:00: mouth [place] 00 every 6 Medical (six) Branch hours as needed for Nausea and Vomiting (N/V). proMETHazin 2020-0 Yes [id number] 25mg Take 1 [facility] e 25 mg 2-18 tablet by ity of tablet 00:00: mouth [place] 00 every 6 Medical (six) Branch hours as needed for Nausea and Vomiting (N/V). proMETHazin 2020-0 Yes [id number] 25mg Take 1 [facility] e 25 mg 2-18 tablet by ity of tablet 00:00: mouth [place] 00 every 6 Medical (six) Branch hours as needed for Nausea and Vomiting (N/V). proMETHazin 2020-0 Yes [id number] 25mg Take 1 [facility] e 25 mg 2-18 tablet by ity of tablet 00:00: mouth [place] 00 every 6 Medical (six) Branch hours as needed for Nausea and Vomiting (N/V). proMETHazin 2020-0 Yes [id number] 25mg Take 1 [facility] e 25 mg 2-18 tablet by ity of tablet 00:00: mouth [place] 00 every 6 Medical (six) Branch hours as needed for Nausea and Vomiting (N/V). proMETHazin 2021-0 Yes [id number] 25mg Take 1 [facility] e 25 mg 2-18 tablet by ity of tablet 00:00: mouth [place] 00 every 6 Medical (six) Branch hours as needed for Nausea and Vomiting (N/V). proMETHazin Yes [id number] 25mg Take 1 [facility] e 25 mg 2-18 tablet by ity of tablet 00:00: mouth [place] 00 every 6 Medical (six) Branch hours as needed for Nausea and Vomiting (N/V). proMETHazin Yes [id number] 25mg Take 1 [facility] e 25 mg 2-18 tablet by ity of tablet 00:00: mouth [place] 00 every 6 Medical (six) Branch hours as needed for Nausea and Vomiting (N/V). proMETHazin Yes [id number] 25mg Take 1 [facility] e 25 mg 2-18 tablet by ity of tablet 00:00: mouth [place] 00 every 6 Medical (six) Branch hours as needed for Nausea and Vomiting (N/V). doxylamine- Yes [id number] 2{tbl} Take 2 Univers pyridoxine, 2-10 tablets by it y of vit B6, 00:00: mouth at [facility] 00 bedtime. Medic al 10-10 mg Branch per tablet doxylamine- Yes [id number] 2{tbl} Take 2 Univers pyridoxine, 2-10 tablets by it y of vit B6, 00:00: mouth at [facility] 00 bedtime. Medic al 10-10 mg Branch per tablet doxylamine- Yes [id number] 2{tbl} Take 2 Univers pyridoxine, 2-10 tablets by it y of vit B6, 00:00: mouth at [place] ([facility]) 00 bedtime. Medic al 10-10 mg Branch per tablet doxylamine- Yes [id number] 2{tbl} Take 2 Univers pyridoxine, 2-10 tablets by it y of vit B6, 00:00: mouth at [place] ([facility]) 00 bedtime. Medic al 10-10 mg Branch per tablet doxylamine- Yes [id number] 2{tbl} Take 2 Univers pyridoxine, 2-10 tablets by it y of vit B6, 00:00: mouth at [place] [address] bedtime. Medic al 10-10 mg Branch per tablet doxylamine- 2020-0 Yes [id number] 2{tbl} Take 2 Univers pyridoxine, 2-10 tablets by it y of vit B6, 00:00: mouth at [place] [address] bedtime. Medic al 10-10 mg Branch per tablet doxylamine- 2020-0 Yes [id number] 2{tbl} Take 2 Univers pyridoxine, 2-10 tablets by it y of vit B6, 00:00: mouth at [place] [address] bedtime. Medic al 10-10 mg Branch per tablet doxylamine- 2020-0 Yes [id number] 2{tbl} Take 2 [facility] pyridoxine, 2-10 tablets by it y of vit B6, 00:00: mouth at [place] [address] bedtime. Medic al 10-10 mg Branch per tablet doxylamine- 2020-0 Yes [id number] 2{tbl} Take 2 [facility] pyridoxine, 2-10 tablets by it y of vit B6, 00:00: mouth at [place] [address] bedtime. Medic al 10-10 mg Branch per tablet doxylamine- 2020-0 Yes [id number] 2{tbl} Take 2 [facility] pyridoxine, 2-10 tablets by it y of vit B6, 00:00: mouth at [place] [address] bedtime. Medic al 10-10 mg Branch per tablet doxylamine- 2020-0 Yes [id number] 2{tbl} Take 2 [facility] pyridoxine, 2-10 tablets by it y of vit B6, 00:00: mouth at [place] [address] bedtime. Medic al 10-10 mg Branch per tablet doxylamine- 2020-0 Yes [id number] 2{tbl} Take 2 [facility] pyridoxine, 2-10 tablets by it y of vit B6, 00:00: mouth at [place] [address] bedtime. Medic al 10-10 mg Branch per tablet doxylamine- 2020-0 Yes [id number] 2{tbl} Take 2 [facility] pyridoxine, 2-10 tablets by it y of vit B6, 00:00: mouth at [place] ([facility]) 00 bedtime. Medic al 10-10 mg Branch per tablet doxylamine- 2020-0 Yes [id number] 2{tbl} Take 2 [facility] pyridoxine, 2-10 tablets by it y of vit B6, 00:00: mouth at [facility] 00 bedtime. Medic al 10-10 mg Branch per tablet doxylamine- 2020-0 Yes [id number] 2{tbl} Take 2 [facility] pyridoxine, 2-10 tablets by it y of vit B6, 00:00: mouth at [facility] 00 bedtime. Medic al 10-10 mg Branch per tablet doxylamine- 2020-0 Yes [id number] 2{tbl} Take 2 [facility] pyridoxine, 2-10 tablets by it y of vit B6, 00:00: mouth at [facility] 00 bedtime. Medic al 10-10 mg Branch per tablet doxylamine- 2020-0 Yes [id number] 2{tbl} Take 2 [facility] pyridoxine, 2-10 tablets by it y of vit B6, 00:00: mouth at [place] [address] bedtime. Medic al 10-10 mg Branch per tablet doxylamine- 2020-0 Yes [id number] 2{tbl} Take 2 [facility] pyridoxine, 2-10 tablets by it y of vit B6, 00:00: mouth at [place] [address] bedtime. Medic al 10-10 mg Branch per tablet doxylamine- 2020-0 Yes [id number] 2{tbl} Take 2 [facility] pyridoxine, 2-10 tablets by it y of vit B6, 00:00: mouth at [facility] 00 bedtime. Medic al 10-10 mg Branch per tablet doxylamine- 2020-0 Yes [id number] 2{tbl} Take 2 [facility] pyridoxine, 2-10 tablets by it y of vit B6, 00:00: mouth at [facility] 00 bedtime. Medic al 10-10 mg Branch per tablet doxylamine- 2020-0 Yes [id number] 2{tbl} Take 2 [facility] pyridoxine, 2-10 tablets by it y of vit B6, 00:00: mouth at [facility] 00 bedtime. Medic al 10-10 mg Branch per tablet doxylamine- Yes [id number] 2{tbl} Take 2 [facility] pyridoxine, 2-10 tablets by it y of vit B6, 00:00: mouth at [place] [address] bedtime. Medic al 10-10 mg Branch per tablet doxylamine- Yes [id number] 2{tbl} Take 2 [facility] pyridoxine, 2-10 tablets by it y of vit B6, 00:00: mouth at [place] [address] bedtime. Medic al 10-10 mg Branch per tablet doxylamine- Yes [id number] 2{tbl} Take 2 [facility] pyridoxine, 2-10 tablets by it y of vit B6, 00:00: mouth at [place] [address] bedtime. Medic al 10-10 mg Branch per tablet doxylamine- Yes [id number] 2{tbl} Take 2 [facility] pyridoxine, 2-10 tablets by it y of vit B6, 00:00: mouth at [place] [address] bedtime. Medic al 10-10 mg Branch per tablet doxylamine- Yes [id number] 2{tbl} Take 2 [facility] pyridoxine, 2-10 tablets by it y of vit B6, 00:00: mouth at [place] [address] bedtime. Medic al 10-10 mg Branch per tablet doxylamine- Yes [id number] 2{tbl} Take 2 [facility] pyridoxine, 2-10 tablets by it y of vit B6, 00:00: mouth at [place] [address] bedtime. Medic al 10-10 mg Branch per tablet doxylamine- Yes [id number] 2{tbl} Take 2 [facility] pyridoxine, 2-10 tablets by it y of vit B6, 00:00: mouth at [facility] bedtime. Medic al 10-10 mg Branch per tablet doxylamine- Yes [id number] 2{tbl} Take 2 [facility] pyridoxine, 2-10 tablets by it y of vit B6, 00:00: mouth at [place] [address] bedtime. Medic al 10-10 mg Branch per tablet doxylamine- Yes [id number] 2{tbl} Take 2 [facility] pyridoxine, 2-10 tablets by it y of vit B6, 00:00: mouth at [facility] 00 bedtime. Medic al 10-10 mg Branch per tablet doxylamine- Yes [id number] 2{tbl} Take 2 [facility] pyridoxine, 2-10 tablets by it y of vit B6, 00:00: mouth at [facility] 00 bedtime. Medic al 10-10 mg Branch per tablet doxylamine- Yes [id number] 2{tbl} Take 2 [facility] pyridoxine, 2-10 tablets by it y of vit B6, 00:00: mouth at [facility] 00 bedtime. Medic al 10-10 mg Branch per tablet doxylamine- Yes [id number] 2{tbl} Take 2 [facility] pyridoxine, 2-10 tablets by it y of vit B6, 00:00: mouth at [facility] 00 bedtime. Medic al 10-10 mg Branch per tablet doxylamine- Yes [id number] 2{tbl} Take 2 [facility] pyridoxine, 2-10 tablets by it y of vit B6, 00:00: mouth at [facility] 00 bedtime. Medic al 10-10 mg Branch per tablet doxylamine- Yes [id number] 2{tbl} Take 2 [facility] pyridoxine, 2-10 tablets by it y of vit B6, 00:00: mouth at [facility] 00 bedtime. Medic al 10-10 mg Branch per tablet doxylamine- Yes [id number] 2{tbl} Take 2 [facility] pyridoxine, 2-10 tablets by it y of vit B6, 00:00: mouth at [facility] 00 bedtime. Medic al 10-10 mg Branch per tablet doxylamine- 0 Yes [id number] 2{tbl} Take 2 [facility] pyridoxine, 2-10 tablets by it y of vit B6, 00:00: mouth at [facility] 00 bedtime. Medic al 10-10 mg Branch per tablet doxylamine- 0 Yes [id number] 2{tbl} Take 2 [facility] pyridoxine, 2-10 tablets by it y of vit B6, 00:00: mouth at [facility] 00 bedtime. Medic al 10-10 mg Branch per tablet doxylamine- 2020-0 Yes [id number] 2{tbl} Take 2 [facility] pyridoxine, 2-10 tablets by it y of vit B6, 00:00: mouth at [facility]) 00 bedtime. Medic al 10-10 mg Branch per tablet doxylamine- 2020-0 Yes [id number] 2{tbl} Take 2 [facility] pyridoxine, 2-10 tablets by it y of vit B6, 00:00: mouth at [facility]) 00 bedtime. Medic al 10-10 mg Branch per tablet doxylamine- 0 Yes [id number] 2{tbl} Take 2 [facility] pyridoxine, 2-10 tablets by it y of vit B6, 00:00: mouth at [facility] 00 bedtime. Medic al 10-10 mg Branch per tablet doxylamine- Yes [id number] 2{tbl} Take 2 [facility] pyridoxine, 2-10 tablets by it y of vit B6, 00:00: mouth at [facility] 00 bedtime. Medic al 10-10 mg Branch per tablet doxylamine- 0 Yes [id number] 2{tbl} Take 2 [facility] pyridoxine, 2-10 tablets by it y of vit B6, 00:00: mouth at [facility] 00 bedtime. Medic al 10-10 mg Branch per tablet doxylamine- 0 Yes [id number] 2{tbl} Take 2 [facility] pyridoxine, 2-10 tablets by it y of vit B6, 00:00: mouth at [facility]) 00 bedtime. Medic al 10-10 mg Branch per tablet doxylamine- 2020-0 Yes [id number] 2{tbl} Take 2 [facility] pyridoxine, 2-10 tablets by it y of vit B6, 00:00: mouth at [facility]) 00 bedtime. Medic al 10-10 mg Branch per tablet doxylamine- 2020-0 Yes [id number] 2{tbl} Take 2 [facility] pyridoxine, 2-10 tablets by it y of vit B6, 00:00: mouth at [place] [address] bedtime. Medic al 10-10 mg Branch per tablet doxylamine- 2020-0 Yes [id number] 2{tbl} Take 2 [facility] pyridoxine, 2-10 tablets by it y of vit B6, 00:00: mouth at [place] [address] bedtime. Medic al 10-10 mg Branch per tablet doxylamine- 2020-0 Yes [id number] 2{tbl} Take 2 [facility] pyridoxine, 2-10 tablets by it y of vit B6, 00:00: mouth at [place] [address] bedtime. Medic al 10-10 mg Branch per tablet doxylamine- 2020-0 Yes [id number] 2{tbl} Take 2 [facility] pyridoxine, 2-10 tablets by it y of vit B6, 00:00: mouth at [place] [address] bedtime. Medic al 10-10 mg Branch per tablet doxylamine- 2020-0 Yes [id number] 2{tbl} Take 2 [facility] pyridoxine, 2-10 tablets by it y of vit B6, 00:00: mouth at [place] [address] bedtime. Medic al 10-10 mg Branch per tablet doxylamine- 2020-0 Yes [id number] 2{tbl} Take 2 [facility] pyridoxine, 2-10 tablets by it y of vit B6, 00:00: mouth at [place] [address] bedtime. Medic al 10-10 mg Branch per tablet doxylamine- 2020-0 Yes [id number] 2{tbl} Take 2 [facility] pyridoxine, 2-10 tablets by it y of vit B6, 00:00: mouth at [place] [address] bedtime. Medic al 10-10 mg Branch per tablet doxylamine- 2020-0 Yes [id number] 2{tbl} Take 2 [facility] pyridoxine, 2-10 tablets by it y of vit B6, 00:00: mouth at [place] [address] bedtime. Medic al 10-10 mg Branch per tablet doxylamine- 2020-0 Yes [id number] 2{tbl} Take 2 [facility] pyridoxine, 2-10 tablets by it y of vit B6, 00:00: mouth at [place] [address] bedtime. Medic al 10-10 mg Branch per tablet doxylamine- Yes [id number] 2{tbl} Take 2 [facility] pyridoxine, 2-10 tablets by it y of vit B6, 00:00: mouth at [facility] 00 bedtime. Medic al 10-10 mg Branch per tablet doxylamine- Yes [id number] 2{tbl} Take 2 [facility] pyridoxine, 2-10 tablets by it y of vit B6, 00:00: mouth at [facility]) 00 bedtime. Medic al 10-10 mg Branch per tablet doxylamine- Yes [id number] 2{tbl} Take 2 [facility] pyridoxine, 2-10 tablets by it y of vit B6, 00:00: mouth at [facility] 00 bedtime. Medic al 10-10 mg Branch per tablet doxylamine- Yes [id number] 2{tbl} Take 2 [facility] pyridoxine, 2-10 tablets by it y of vit B6, 00:00: mouth at [facility] 00 bedtime. Medic al 10-10 mg Branch per tablet doxylamine- Yes [id number] 2{tbl} Take 2 [facility] pyridoxine, 2-10 tablets by it y of vit B6, 00:00: mouth at [facility] 00 bedtime. Medic al 10-10 mg Branch per tablet doxylamine- Yes [id number] 2{tbl} Take 2 [facility] pyridoxine, 2-10 tablets by it y of vit B6, 00:00: mouth at [facility] bedtime. Medic al 10-10 mg Branch per tablet doxylamine- Yes [id number] 2{tbl} Take 2 [facility] pyridoxine, 2-10 tablets by it y of vit B6, 00:00: mouth at [facility]) 00 bedtime. Medic al 10-10 mg Branch per tablet Yes [id number] 1{tbl} Take 1 U nivers multivitami 1-13 tablet by ity of n ( 00:00: mouth [place] [facility]) 00 daily. Medical tablet Branch Yes [id number] 1{tbl} Take 1 U nivers multivitami 1-13 tablet by ity of n ( 00:00: mouth [place] [facility]) 00 daily. Medical tablet Branch Yes [id number] 1{tbl} Take 1 U nivers multivitami 1-13 tablet by ity of n ( 00:00: mouth [place] [facility]) 00 daily. Medical tablet Branch Yes [id number] 1{tbl} Take 1 U nivers mult[facility]itami 1-13 tablet by ity of n ( 00:00: mouth [place] [facility]) 00 daily. Medical tablet Branch Yes [id number] 1{tbl} Take 1 U nivers mult[facility]itami 1-13 tablet by ity of n ( 00:00: mouth [place] [facility]) 00 daily. Medical tablet Branch Yes [id number] 1{tbl} Take 1 [facility] nivers mult[facility]itami 1-13 tablet by ity of n ( 00:00: mouth [place] [facility]) 00 daily. Medical tablet Branch Yes [id number] 1{tbl} Take 1 [facility] nivers mult[facility]itami 1-13 tablet by ity of n ( 00:00: mouth [place] [facility]) 00 daily. Medical tablet Branch Yes [id number] 1{tbl} Take 1 U nivers mult[facility]itami 1-13 tablet by ity of n ( 00:00: mouth [place] [facility]) 00 daily. Medical tablet Branch Yes [id number] 1{tbl} Take 1 U nivers mult[facility]itami 1-13 tablet by ity of n ( 00:00: mouth [place] [facility]) 00 daily. Medical tablet Branch Yes [id number] 1{tbl} Take 1 U nivers mult[facility]itami 1-13 tablet by ity of n ( 00:00: mouth [place] [facility]) 00 daily. Medical tablet Branch Yes [id number] 1{tbl} Take 1 U nivers mult[facility]itami 1-13 tablet by ity of n ( 00:00: mouth [place] [facility]) 00 daily. Medical tablet Branch Yes [id number] 1{tbl} Take 1 U nivers multivitami 1-13 tablet by ity of n ( 00:00: mouth [place] [facility]) 00 daily. Medical tablet Branch Yes [id number] 1{tbl} Take 1 U nivers multivitami 1-13 tablet by ity of n ( 00:00: mouth [place] [facility]) 00 daily. Medical tablet Branch Yes [id number] 1{tbl} Take 1 U nivers multivitami 1-13 tablet by ity of n ( 00:00: mouth [place] [facility]) 00 daily. Medical tablet Branch Yes [id number] 1{tbl} Take 1 U nivers mult[facility]itami 1-13 tablet by ity of n ( 00:00: mouth [place] [facility]) 00 daily. Medical tablet Branch Yes [id number] 1{tbl} Take 1 [facility] nivers mult[facility]itami 1-13 tablet by ity of n ( 00:00: mouth [place] [facility]) 00 daily. Medical tablet Branch Yes [id number] 1{tbl} Take 1 [facility] nivers mult[facility]itami 1-13 tablet by ity of n ( 00:00: mouth [place] [facility]) 00 daily. Medical tablet Branch Yes [id number] 1{tbl} Take 1 U nivers mult[facility]itami 1-13 tablet by ity of n ( 00:00: mouth [place] [facility]) 00 daily. Medical tablet Branch Yes [id number] 1{tbl} Take 1 U nivers mult[facility]ami 1-13 tablet by ity of n ( 00:00: mouth [place] [facility]) 00 daily. Medical tablet Branch Yes [id number] 1{tbl} Take 1 [facility] nivers mult[facility]ami 1-13 tablet by ity of n ( 00:00: mouth [place] [facility]) 00 daily. Medical tablet Branch Yes [id number] 1{tbl} Take 1 U nivers mult[facility]ami 1-13 tablet by ity of n ( 00:00: mouth [place] [facility]) 00 daily. Medical tablet Branch Yes [id number] 1{tbl} Take 1 U nivers mult[facility]ami 1-13 tablet by ity of n ( 00:00: mouth [place] [facility]) 00 daily. Medical tablet Branch Yes [id number] 1{tbl} Take 1 [facility] nivers mult[facility]itami 1-13 tablet by ity of n ( 00:00: mouth [place] [facility]) 00 daily. Medical tablet Branch Yes [id number] 1{tbl} Take 1 U nivers mult[facility]itami 1-13 tablet by ity of n ( 00:00: mouth [place] [facility]) 00 daily. Medical tablet Branch Yes [id number] 1{tbl} Take 1 U nivers mult[facility]itami 1-13 tablet by ity of n ( 00:00: mouth [place] [facility]) 00 daily. Medical tablet Branch Yes [id number] 1{tbl} Take 1 U nivers mult[facility]ami 1-13 tablet by ity of n ( 00:00: mouth [place] [facility]) 00 daily. Medical tablet Branch Yes [id number] 1{tbl} Take 1 U nivers mult[facility]ami 1-13 tablet by ity of n ( 00:00: mouth [place] [facility]) 00 daily. Medical tablet Branch Yes [id number] 1{tbl} Take 1 U nivers mult[facility]ami 1-13 tablet by ity of n ( 00:00: mouth [place] [facility]) 00 daily. Medical tablet Branch Yes [id number] 1{tbl} Take 1 U nivers mult[facility]ami 1-13 tablet by ity of n ( 00:00: mouth [place] [facility]) 00 daily. Medical tablet Branch Yes [id number] 1{tbl} Take 1 U nivers mult[facility]ami 1-13 tablet by ity of n ( 00:00: mouth [place] [facility]) 00 daily. Medical tablet Branch Yes [id number] 1{tbl} Take 1 U nivers mult[facility]ami 1-13 tablet by ity of n ( 00:00: mouth [place] [facility]) 00 daily. Medical tablet Branch Yes [id number] 1{tbl} Take 1 U nivers mult[facility]ami 1-13 tablet by ity of n ( 00:00: mouth [place] [facility]) 00 daily. Medical tablet Branch Yes [id number] 1{tbl} Take 1 U nivers mult[facility]ami 1-13 tablet by ity of n ( 00:00: mouth [place] [facility]) 00 daily. Medical tablet Branch Yes [id number] 1{tbl} Take 1 U nivers mult[facility]itami 1-13 tablet by ity of n ( 00:00: mouth [place] [facility]) 00 daily. Medical tablet Branch Yes [id number] 1{tbl} Take 1 U nivers mult[facility]ami 1-13 tablet by ity of n ( 00:00: mouth [place] [facility]) 00 daily. Medical tablet Branch Yes [id number] 1{tbl} Take 1 U nivers mult[facility]ami 1-13 tablet by ity of n ( 00:00: mouth [place] [facility]) 00 daily. Medical tablet Branch Yes [id number] 1{tbl} Take 1 U nivers mult[facility]itami 1-13 tablet by ity of n ( 00:00: mouth [place] [facility]) 00 daily. Medical tablet Branch Yes [id number] 1{tbl} Take 1 U nivers mult[facility]ami 1-13 tablet by ity of n ( 00:00: mouth [place] [facility]) 00 daily. Medical tablet Branch Yes [id number] 1{tbl} Take 1 U nivers mult[facility]itami 1-13 tablet by ity of n ( 00:00: mouth [place] [facility]) 00 daily. Medical tablet Branch Yes [id number] 1{tbl} Take 1 U nivers mult[facility]ami 1-13 tablet by ity of n ( 00:00: mouth [place] [facility]) 00 daily. Medical tablet Branch Yes [id number] 1{tbl} Take 1 U nivers mult[facility]ami 1-13 tablet by ity of n ( 00:00: mouth [place] [facility]) 00 daily. Medical tablet Branch Yes [id number] 1{tbl} Take 1 U nivers mult[facility]ami 1-13 tablet by ity of n ( 00:00: mouth [place] [facility]) 00 daily. Medical tablet Branch Yes [id number] 1{tbl} Take 1 U nivers mult[facility]ami 1-13 tablet by ity of n ( 00:00: mouth [place] [facility]) 00 daily. Medical tablet Branch Yes [id number] 1{tbl} Take 1 U nivers mult[facility]ami 1-13 tablet by ity of n ( 00:00: mouth [place] [facility]) 00 daily. Medical tablet Branch Yes [id number] 1{tbl} Take 1 U nivers mult[facility]ami 1-13 tablet by ity of n ( 00:00: mouth [place] [facility]) 00 daily. Medical tablet Branch Yes [id number] 1{tbl} Take 1 U nivers mult[facility]ami 1-13 tablet by ity of n ( 00:00: mouth [place] [facility]) 00 daily. Medical tablet Branch Yes [id number] 1{tbl} Take 1 U nivers mult[facility]itami 1-13 tablet by ity of n ( 00:00: mouth [place] [facility]) 00 daily. Medical tablet Branch Yes [id number] 1{tbl} Take 1 U nivers mult[facility]itami 1-13 tablet by ity of n ( 00:00: mouth [place] [facility]) 00 daily. Medical tablet Branch Yes [id number] 1{tbl} Take 1 U nivers mult[facility]itami 1-13 tablet by ity of n ( 00:00: mouth [place] [facility]) 00 daily. Medical tablet Branch Yes [id number] 1{tbl} Take 1 U nivers multivitami 1-13 tablet by ity of n ( 00:00: mouth [place] [facility]) 00 daily. Medical tablet Branch Yes [id number] 1{tbl} Take 1 U nivers multivitami 1-13 tablet by ity of n ( 00:00: mouth [place] [facility]) 00 daily. Medical tablet Branch Yes [id number] 1{tbl} Take 1 U nivers mult[facility]ami 1-13 tablet by ity of n ( 00:00: mouth [place] [facility]) 00 daily. Medical tablet Branch Yes [id number] 1{tbl} Take 1 U nivers mult[facility]itami 1-13 tablet by ity of n ( 00:00: mouth [place] [facility]) 00 daily. Medical tablet Branch Yes [id number] 1{tbl} Take 1 U nivers mult[facility]itami 1-13 tablet by ity of n ( 00:00: mouth [place] [facility]) 00 daily. Medical tablet Branch Yes [id number] 1{tbl} Take 1 U nivers mult[facility]ami 1-13 tablet by ity of n ( 00:00: mouth [place] [facility]) 00 daily. Medical tablet Branch Yes [id number] 1{tbl} Take 1 U nivers mult[facility]ami 1-13 tablet by ity of n ( 00:00: mouth [place] [facility]) 00 daily. Medical tablet Branch Yes [id number] 1{tbl} Take 1 [facility] nivers mult[facility]ami 1-13 tablet by ity of n ( 00:00: mouth [place] [facility]) 00 daily. Medical tablet Branch Yes [id number] 1{tbl} Take 1 U nivers mult[facility]ami 1-13 tablet by [facility]y of n ( 00:00: mouth [place] [facility]) 00 daily. Medical tablet Branch Yes [id number] 1{tbl} Take 1 [facility] nivers mult[facility]ami 1-13 tablet by [facility]y of n ( 00:00: mouth [place] [facility]) 00 daily. Medical tablet Branch Yes [id number] 1{tbl} Take 1 U nivers mult[facility]itami 1-13 tablet by ity of n ( 00:00: mouth [place] [facility]) 00 daily. Medical tablet Branch Yes [id number] 1{tbl} Take 1 [facility] nivers mult[facility]itami 1-13 tablet by ity of n ( 00:00: mouth [place] [facility]) 00 daily. Medical tablet Branch Yes [id number] 1{tbl} Take 1 U nivers mult[facility]itami 1-13 tablet by ity of n ( 00:00: mouth [place] [facility]) 00 daily. Medical tablet Branch Yes [id number] 1{tbl} Take 1 U nivers multivitami 1-13 tablet by ity of n ( 00:00: mouth [place] [facility]) 00 daily. Medical tablet Branch HYDROXYprog 2020- No [id number] 250mg 1 mL by RODNEY Mcdonnell,,pre 08-20 [facility] g presv, 00:00: 04:59 lar route Man as 250 mg/mL 00 :00 weekly for Medi carlos (1 mL) 22 doses. Branch injection HYDROXYprog 2020- No [id number] 250mg 1 mL by RODNEY Mcdonnell,,pre 08-20 [facility] presv, 00:00: 04:59 lar route Man as 250 mg/mL 00 :00 weekly for Medi carlos (1 mL) 22 doses. Branch injection HYDROXYprog 2020- No [id number] 250mg 1 mL by [facility] est,PF,,pre 08-20 [facility] g presv, 00:00: 04:59 lar route Man as 250 mg/mL 00 :00 weekly for Medi carlos (1 mL) 22 doses. Branch injection HYDROXYprog 2020- No [id number] 250mg 1 mL by [facility] est,PF,,pre 08-20 [facility] g presv, 00:00: 04:59 lar route Man as 250 mg/mL 00 :00 weekly for Medi carlos (1 mL) 22 doses. Branch injection HYDROXYprog 2020- No [id number] 250mg 1 mL by [facility] est,PF,,pre 08-20 [facility] pres[facility], 00:00: 04:59 lar route Man as 250 mg/mL 00 :00 weekly for Medi carlos (1 mL) 22 doses. Branch injection HYDROXYprog 2020- No [id number] 250mg 1 mL by [facility] est,PF,,pre 08-20 [facility] presv, 00:00: 04:59 lar route Man as 250 mg/mL 00 :00 weekly for Medi carlos (1 mL) 22 doses. Branch injection HYDROXYprog 2020- No [id number] 250mg 1 mL by [facility] est,PF,,pre 08-20 [facility] g presv, 00:00: 04:59 lar route Man as 250 mg/mL 00 :00 weekly for Medi carlos (1 mL) 22 doses. Branch injection HYDROXYprog 2020- No [id number] 250mg 1 mL by [facility] est,PF,,pre 08-20 [facility] presv, 00:00: 04:59 lar route Man as 250 mg/mL 00 :00 weekly for Medi carlos (1 mL) 22 doses. Branch injection HYDROXYprog 2020- No [id number] 250mg 1 mL by [facility] est,PF,,pre 08-20 [facility] g presv, 00:00: 04:59 lar route Man as 250 mg/mL 00 :00 weekly for Medi carlos (1 mL) 22 doses. Branch injection HYDROXYprog 2020- No [id number] 250mg 1 mL by [facility] est,PF,,pre 08-20 [facility] g presv, 00:00: 04:59 lar route Man as 250 mg/mL 00 :00 weekly for Medi carlos (1 mL) 22 doses. Branch injection HYDROXYprog 2020- No [id number] 250mg 1 mL by [facility] est,PF,,pre 08-20 [facility] pres[facility], 00:00: 04:59 lar route Man as 250 mg/mL 00 :00 weekly for Medi carlos (1 mL) 22 doses. Branch injection HYDROXYprog 2020- No [id number] 250mg 1 mL by [facility] est,PF,,pre 08-20 [facility] pres[facility], 00:00: 04:59 lar route Man as 250 mg/mL 00 :00 weekly for Medi carlos (1 mL) 22 doses. Branch injection HYDROXYprog 2020- No [id number] 250mg 1 mL by [facility] est,PF,,pre 08-20 [facility] g presv, 00:00: 04:59 lar route Man as 250 mg/mL 00 :00 weekly for Medi carlos (1 mL) 22 doses. Branch injection HYDROXYprog 2020- No [id number] 250mg 1 mL by [facility] est,PF,,pre 08-20 [facility] pres[facility], 00:00: 04:59 lar route Man as 250 mg/mL 00 :00 weekly for Medi carlos (1 mL) 22 doses. Branch injection HYDROXYprog 2020- No [id number] 250mg 1 mL by [facility] est,PF,,pre 08-20 [facility] presv, 00:00: 04:59 lar route Man as 250 mg/mL 00 :00 weekly for Medi carlos (1 mL) 22 doses. Branch injection HYDROXYprog 2020- No [id number] 250mg 1 mL by [facility] est,PF,,pre 08-20 [facility] pres[facility], 00:00: 04:59 lar route Man as 250 mg/mL 00 :00 weekly for Medi carlos (1 mL) 22 doses. Branch injection HYDROXYprog 2020- No [id number] 250mg 1 mL by [facility] est,PF,,pre 08-20 [facility] presv, 00:00: 04:59 lar route Man as 250 mg/mL 00 :00 weekly for Medi carlos (1 mL) 22 doses. Branch injection HYDROXYprog 2020- No [id number] 250mg 1 mL by [facility] est,PF,,pre 08-20 [facility] presv, 00:00: 04:59 lar route Man as 250 mg/mL 00 :00 weekly for Medi carlos (1 mL) 22 doses. Branch injection HYDROXYprog 2020- No [id number] 250mg 1 mL by [facility] est,PF,,pre 08-20 [facility] pres[facility], 00:00: 04:59 lar route Man as 250 mg/mL 00 :00 weekly for Medi carlos (1 mL) 22 doses. Branch injection HYDROXYprog 2020- No [id number] 250mg 1 mL by [facility] est,PF,,pre 08-20 [facility] pres[facility], 00:00: 04:59 lar route Man as 250 mg/mL 00 :00 weekly for Medi carlos (1 mL) 22 doses. Branch injection HYDROXYprog 2020- No [id number] 250mg 1 mL by [facility] est,PF,,pre 08-20 [facility] pres[facility], 00:00: 04:59 lar route Man as 250 mg/mL 00 :00 weekly for Medi carlos (1 mL) 22 doses. Branch injection HYDROXYprog 2020- No [id number] 250mg 1 mL by [facility] est,PF,,pre 08-20 [facility] pres[facility], 00:00: 04:59 lar route Man as 250 mg/mL 00 :00 weekly for Medi carlos (1 mL) 22 doses. Branch injection HYDROXYprog 2020- No [id number] 250mg 1 mL by [facility] est,PF,,pre 08-20 [facility] pres[facility], 00:00: 04:59 lar route Man as 250 mg/mL 00 :00 weekly for Medi carlos (1 mL) 22 doses. Branch injection HYDROXYprog 2020- No [id number] 250mg 1 mL by [facility] est,PF,,pre 08-20 [facility] pres[facility], 00:00: 04:59 lar route Man as 250 mg/mL 00 :00 weekly for Medi carlos (1 mL) 22 doses. Branch injection HYDROXYprog 2020- No [id number] 250mg 1 mL by [facility] est,PF,,pre 08-20 [facility] pres[facility], 00:00: 04:59 lar route Man as 250 mg/mL 00 :00 weekly for Medi carlos (1 mL) 22 doses. Branch injection HYDROXYprog 2020- No [id number] 250mg 1 mL by [facility] est,PF,,pre 08-20 [facility] presv, 00:00: 04:59 lar route Man as 250 mg/mL 00 :00 weekly for Medi carlos (1 mL) 22 doses. Branch injection HYDROXYprog 2020- No [id number] 250mg 1 mL by [facility] est,PF,,pre 08-20 [facility] pres[facility], 00:00: 04:59 lar route Man as 250 mg/mL 00 :00 weekly for Medi carlos (1 mL) 22 doses. Branch injection HYDROXYprog 2020- No [id number] 250mg 1 mL by [facility] est,PF,,pre 08-20 [facility] pres[facility], 00:00: 04:59 lar route Man as 250 mg/mL 00 :00 weekly for Medi carlos (1 mL) 22 doses. Branch injection HYDROXYprog 2020- No [id number] 250mg 1 mL by [facility] est,PF,,pre 08-20 [facility] presv, 00:00: 04:59 lar route Man as 250 mg/mL 00 :00 weekly for Medi carlos (1 mL) 22 doses. Branch injection HYDROXYprog 2020- No [id number] 250mg 1 mL by [facility] est,PF,,pre 08-20 [facility] pres[facility], 00:00: 04:59 lar route Man as 250 mg/mL 00 :00 weekly for Medi carlos (1 mL) 22 doses. Branch injection HYDROXYprog 2020- No [id number] 250mg 1 mL by [facility] est,PF,,pre 08-20 [facility] presv, 00:00: 04:59 lar route [place] 250 mg/mL 00 :00 weekly for Medi carlos (1 mL) 22 doses. Branch injection HYDROXYprog 2020- No [id number] 250mg 1 mL by [facility] est,PF,,pre 08-20 [facility] ty of g presv, 00:00: 04:59 lar route [place] 250 mg/mL 00 :00 weekly for Medi carlos (1 mL) 22 doses. Branch injection HYDROXYprog 2020- No [id number] 250mg 1 mL by [facility] est,PF,,pre 08-20 [facility] ty of g presv, 00:00: 04:59 lar route [place] 250 mg/mL 00 :00 weekly for Medi carlos (1 mL) 22 doses. Branch injection HYDROXYprog 2020- No [id number] 250mg 1 mL by [facility] est,PF,,pre 08-20 [facility] ty of g presv, 00:00: 04:59 lar route [place] 250 mg/mL 00 :00 weekly for Medi carlos (1 mL) 22 doses. Branch injection HYDROXYprog 2020-0 2020- No [id number] 250mg 1 mL by [facility] est,PF,,pre 08-20 [facility] i ty of g presv, 00:00: 04:59 lar route [place] 250 mg/mL 00 :00 weekly for Medi carlos (1 mL) 22 doses. Branch injection HYDROXYprog 2020- No [id number] 250mg 1 mL by [facility] est,PF,,pre 08-20 [facility] i ty of g presv, 00:00: 04:59 lar route [place] 250 mg/mL 00 :00 weekly for Medi carlos (1 mL) 22 doses. Branch injection HYDROXYprog 2020- No [id number] 250mg 1 mL by [facility] est,PF,,pre 08-20 [facility] i ty of g presv, 00:00: 04:59 lar route [place] 250 mg/mL 00 :00 weekly for Medi carlos (1 mL) 22 doses. Branch injection HYDROXYprog 2020- No [id number] 250mg 1 mL by [facility] est,PF,,pre 08-20 [facility] i ty of g presv, 00:00: 04:59 lar route [place] 250 mg/mL 00 :00 weekly for Medi carlos (1 mL) 22 doses. Branch injection HYDROXYprog 2020-2020- No [id number] 250mg 1 mL by [facility] est,PF,,pre 08-20 Intr[facility] i ty of g presv, 00:00: 04:59 lar route [place] 250 mg/mL 00 :00 weekly for Medi carlos (1 mL) 22 doses. Branch injection HYDROXYprog 2020- No [id number] 250mg 1 mL by [facility] est,PF,,pre 08-20 Intramuscu i ty of g presv, 00:00: 04:59 lar route [place] 250 mg/mL 00 :00 weekly for Medi carlos (1 mL) 22 doses. Branch injection HYDROXYprog 2020- No [id number] 250mg 1 mL by [facility] est,PF,,pre 08-20 [facility]cu i ty of g presv, 00:00: 04:59 lar route [place] 250 mg/mL 00 :00 weekly for Medi carlos (1 mL) 22 doses. Branch injection HYDROXYprog 2020- No [id number] 250mg 1 mL by [facility] est,PF,,pre 08-20 [facility] i ty of g presv, 00:00: 04:59 lar route [place] 250 mg/mL 00 :00 weekly for Medi carlos (1 mL) 22 doses. Branch injection HYDROXYprog 2020- No [id number] 250mg 1 mL by [facility] est,PF,,pre 1-13 06-11 [facility] i ty of g presv, 00:00: 04:59 lar route [place] 250 mg/mL 00 :00 weekly for Medi carlos (1 mL) 22 doses. Branch injection HYDROXYprog 2020- No [id number] 250mg 1 mL by [facility] est,PF,,pre 08-20 Intramus[facility] i ty of g presv, 00:00: 04:59 lar route [place] 250 mg/mL 00 :00 weekly for Medi carlos (1 mL) 22 doses. Branch injection HYDROXYprog No [id number] 250mg 1 mL by [facility] est,PF,,pre 08-20 Intramuscu i ty of g presv, 00:00: 04:59 lar route [place] 250 mg/mL 00 :00 weekly for Medi carlos (1 mL) 22 doses. Branch injection HYDROXYprog No [id number] 250mg 1 mL by [facility] est,PF,,pre 08-20 Intramuscu i ty of g presv, 00:00: 04:59 lar route [place] 250 mg/mL 00 :00 weekly for Medi carlos (1 mL) 22 doses. Branch injection HYDROXYprog No [id number] 250mg 1 mL by [facility] est,PF,,pre 08-20 Intramuscu i ty of g presv, 00:00: 04:59 lar route [place] 250 mg/mL 00 :00 weekly for Medi carlos (1 mL) 22 doses. Branch injection HYDROXYprog No [id number] 250mg 1 mL by [facility] est,PF,,pre 08-20 Intramuscu i ty of g presv, 00:00: 04:59 lar route [place] 250 mg/mL 00 :00 weekly for Medi carlos (1 mL) 22 doses. Branch injection cefTRIAXone 2019- No 250mg 250 mg, U nivers (ROCEPHIN) 03-2215 Intramuscu it y of injection 07:15: 06:17 lar, ONCE, [place] 250 mg 00 :00 1 dose, Medical Sat Branch 03/22/20 at 0215, ARA
Re ason for Anti-Infec tive: Empiric Therapy for Suspected Infection< br>Empiric Therapy Site: Pelvic
Duration of therapy: 72 hours azithromyci 2019- No 1000mg 1,000 mg, Univers n 03-2215 Oral, ity of (ZITHROMAX) 07:15: 06:16 ONCE, 1 [place] tablet 00 :00 dose, Sat Medical 1,000 mg 03/22/20 at [facility] h 0215, ARA
Re ason for Anti-Infec tive: Empiric Therapy for Suspected Infection< br>Empiric Therapy Site: Pelvic
Duration of therapy: 72 hours ketorolac 2019-2019- No 30mg 30 mg, Unive rs (TORADOL) 03-22 Slow IV ity of injection 05:15: 04:14 Push, [place] 30 mg 00 :00 ONCE, 1 Medical dose, Sat Branch 03/22/20 at 0015, Routine
membership coordinator approving Restricted medication : SAMIR JAFFE ondansetron 2019- No 4mg 4 mg, Slow Univers (ZOFRAN 03-22 IV Push, ity of (PF)) 05:15: 04:14 ONCE, 1 [place] injection 4 00 :00 dose, Sat Med ical mg 03/22/20 at Branch 0015, ARA metroNIDAZO 2019-0 2020- No [id number] 500mg Take 1 [facility] LE 500 mg 8- 08-30 tablet by ity of tablet 00:00: 04:59 mouth 2 [place] 00 :00 (two) Medical times Branch daily for 14 days. metroNIDAZO 2019-0 2020- No [id number] 500mg Take 1 [facility] LE 500 mg 8-15 08-30 tablet by ity of tablet 00:00: 04:59 mouth 2 [place] 00 :00 (two) Medical times Branch daily for 14 days. metroNIDAZO 2020-0 2020- No [id number] 500mg Take 1 [facility] LE 500 mg 8-15 08-30 tablet by ity of tablet 00:00: 04:59 mouth 2 [place] 00 :00 (two) Medical times Branch daily for 14 days. metroNIDAZO 2020-0 2020- No [id number] 500mg Take 1 [facility] LE 500 mg 8-15 08-30 tablet by ity of tablet 00:00: 04:59 mouth 2 [place] 00 :00 (two) Medical times Branch daily for 14 days. metroNIDAZO 2019- 2020- No [id number] 500mg Take 1 [facility] LE 500 mg 8 08-30 tablet by ity of tablet 00:00: 04:59 mouth 2 [place] 00 :00 (two) Medical times Branch daily for 14 days. cefTRIAXone 2019-0 Yes 250mg 250 mg, Un alex (ROCEPHIN) 02-25 Intramuscu ity of injection 23:30: lar, Q24H, [place] 250 mg 00 [facility] dose [facility] 02/26/20 at 1830, Until Discontinu ed, ARA
Re ason for Anti-Infec tive: Documented Infection< br>Documen kareen Infection Site: Pelvic
Duration of Therapy: Other (see Comments) azithromyci 2019-2019- No 1000mg 1,000 mg, [facility] n 02-25 Oral, ity of (ZITHROMAX) 23:30: 23:39 ONCE, 1 [place] tablet 00 :00 dose, [facility] Medical 1,000 mg 02/26/20 at [facility] h 1830, ARA
Re ason for Anti-Infec tive: Documented Infection< br>Documen kareen Infection Site: Pelvic
Duration of Therapy: Other (see Comments) ketorolac 2019-2019- No 15mg 15 mg, Unive rs (TORADOL) 02-25 Slow IV ity of injection 23:15: 22:18 Push, [place] 15 mg 00 :00 ONCE, 1 Medical dose, [facility] 02/26/20 at 1815, ARA
Fa culty member approving Restricted medication : EVANGELIST BONNER ondansetron 2019-2019- No 4mg 4 mg, Slow Univers (ZOFRAN 02-25 IV Push, ity of (PF)) 23:15: 22:21 ONCE, 1 [place] injection 4 00 :00 dose, [facility] Med ical mg 02/26/20 at Branch 1815, ARA morpHINE 2019- 2020- No 4mg 4 mg, Slow Un alex injection 4 02-25 IV Push, ity of mg 23:15: 22:21 ONCE, 1 [place] 00 :00 dose, Tue Medical 02/26/20 at Branch 1815, STAT ibuprofen 2020-0 Yes [id number] 800mg Take 1 [facility] 800 mg 7-21 tablet by ity of tablet 00:00: mouth [place] 00 every 6 Medical (six) Branch hours as needed for Pain (scale 4-6). ibuprofen 2020-0 Yes [id number] 800mg Take 1 [facility] 800 mg 7-21 tablet by ity of tablet 00:00: mouth [place] 00 every 6 Medical (six) Branch hours as needed for Pain (scale 4-6). ibuprofen 2020-0 Yes [id number] 800mg Take 1 [facility] 800 mg 7-21 tablet by ity of tablet 00:00: mouth [place] 00 every 6 Medical (six) Branch hours as needed for Pain (scale 4-6). ibuprofen 2020-0 Yes [id number] 800mg Take 1 [facility] 800 mg 7-21 tablet by ity of tablet 00:00: mouth [place] 00 every 6 Medical (six) Branch hours as needed for Pain (scale 4-6). ibuprofen 2020-0 Yes [id number] 800mg Take 1 [facility] 800 mg 7-21 tablet by ity of tablet 00:00: mouth [place] 00 every 6 Medical (six) Branch hours as needed for Pain (scale 4-6). ibuprofen 2020-0 Yes [id number] 800mg Take 1 [facility] 800 mg 7-21 tablet by ity of tablet 00:00: mouth [place] 00 every 6 Medical (six) Branch hours as needed for Pain (scale 4-6). ibuprofen 2020-0 Yes [id number] 800mg Take 1 [facility] 800 mg 7-21 tablet by ity of tablet 00:00: mouth [place] 00 every 6 Medical (six) Branch hours as needed for Pain (scale 4-6). ibuprofen 2020-0 Yes [id number] 800mg Take 1 [facility] 800 mg 7-21 tablet by ity of tablet 00:00: mouth [place] 00 every 6 Medical (six) Branch hours as needed for Pain (scale 4-6). ibuprofen 2020-0 Yes [id number] 800mg Take 1 [facility] 800 mg 7-21 tablet by ity of tablet 00:00: mouth [place] 00 every 6 Medical (six) Branch hours as needed for Pain (scale 4-6). ibuprofen 2020-0 Yes [id number] 800mg Take 1 [facility] 800 mg 7-21 tablet by ity of tablet 00:00: mouth [place] 00 every 6 Medical (six) Branch hours as needed for Pain (scale 4-6). ibuprofen 2020-0 Yes [id number] 800mg Take 1 [facility] 800 mg 7-21 tablet by ity of tablet 00:00: mouth [place] 00 every 6 Medical (six) Branch hours as needed for Pain (scale 4-6). ibuprofen 2020-0 Yes [id number] 800mg Take 1 [facility] 800 mg 7-21 tablet by ity of tablet 00:00: mouth [place] 00 every 6 Medical (six) Branch hours as needed for Pain (scale 4-6). ibuprofen 2020-0 Yes [id number] 800mg Take 1 [facility] 800 mg 7-21 tablet by ity of tablet 00:00: mouth [place] 00 every 6 Medical (six) Branch hours as needed for Pain (scale 4-6). ibuprofen 2020-0 Yes [id number] 800mg Take 1 [facility] 800 mg 7-21 tablet by ity of tablet 00:00: mouth [place] 00 every 6 Medical (six) Branch hours as needed for Pain (scale 4-6). ibuprofen 2020-0 Yes [id number] 800mg Take 1 [facility] 800 mg 7-21 tablet by ity of tablet 00:00: mouth [place] 00 every 6 Medical (six) Branch hours as needed for Pain (scale 4-6). ibuprofen 2020-0 Yes [id number] 800mg Take 1 [facility] 800 mg 7-21 tablet by ity of tablet 00:00: mouth [place] 00 every 6 Medical (six) Branch hours as needed for Pain (scale 4-6). ibuprofen 2020-0 Yes [id number] 800mg Take 1 [facility] 800 mg 7-21 tablet by ity of tablet 00:00: mouth [place] 00 every 6 Medical (six) Branch hours as needed for Pain (scale 4-6). ibuprofen 2020-0 Yes [id number] 800mg Take 1 [facility] 800 mg 7-21 tablet by ity of tablet 00:00: mouth [place] 00 every 6 Medical (six) Branch hours as needed for Pain (scale 4-6). ibuprofen 2020-0 Yes [id number] 800mg Take 1 [facility] 800 mg 7-21 tablet by ity of tablet 00:00: mouth [place] 00 every 6 Medical (six) Branch hours as needed for Pain (scale 4-6). ibuprofen 2020-0 Yes [id number] 800mg Take 1 [facility] 800 mg 7-21 tablet by ity of tablet 00:00: mouth [place] 00 every 6 Medical (six) Branch hours as needed for Pain (scale 4-6). ibuprofen 2020-0 Yes [id number] 800mg Take 1 [facility] 800 mg 7-21 tablet by ity of tablet 00:00: mouth [place] 00 every 6 Medical (six) Branch hours as needed for Pain (scale 4-6). ibuprofen 2020-0 Yes [id number] 800mg Take 1 [facility] 800 mg 7-21 tablet by ity of tablet 00:00: mouth [place] 00 every 6 Medical (six) Branch hours as needed for Pain (scale 4-6). ibuprofen 2020-0 Yes [id number] 800mg Take 1 [facility] 800 mg 7-21 tablet by ity of tablet 00:00: mouth [place] 00 every 6 Medical (six) Branch hours as needed for Pain (scale 4-6). ibuprofen 2020-0 Yes [id number] 800mg Take 1 [facility] 800 mg 7-21 tablet by ity of tablet 00:00: mouth [place] 00 every 6 Medical (six) Branch hours as needed for Pain (scale 4-6). ibuprofen 2020-0 Yes [id number] 800mg Take 1 [facility] 800 mg 7-21 tablet by ity of tablet 00:00: mouth [place] 00 every 6 Medical (six) Branch hours as needed for Pain (scale 4-6). ibuprofen 2020-0 Yes [id number] 800mg Take 1 [facility] 800 mg 7-21 tablet by ity of tablet 00:00: mouth [place] 00 every 6 Medical (six) Branch hours as needed for Pain (scale 4-6). ibuprofen 2020-0 Yes [id number] 800mg Take 1 [facility] 800 mg 7-21 tablet by ity of tablet 00:00: mouth [place] 00 every 6 Medical (six) Branch hours as needed for Pain (scale 4-6). ibuprofen 2020-0 Yes [id number] 800mg Take 1 [facility] 800 mg 7-21 tablet by ity of tablet 00:00: mouth [place] 00 every 6 Medical (six) Branch hours as needed for Pain (scale 4-6). ibuprofen 2020-0 Yes [id number] 800mg Take 1 [facility] 800 mg 7-21 tablet by ity of tablet 00:00: mouth [place] 00 every 6 Medical (six) Branch hours as needed for Pain (scale 4-6). ibuprofen 2020-0 Yes [id number] 800mg Take 1 [facility] 800 mg 7-21 tablet by ity of tablet 00:00: mouth [place] 00 every 6 Medical (six) Branch hours as needed for Pain (scale 4-6). ibuprofen 2020-0 Yes [id number] 800mg Take 1 [facility] 800 mg 7-21 tablet by ity of tablet 00:00: mouth [place] 00 every 6 Medical (six) Branch hours as needed for Pain (scale 4-6). ibuprofen 2020-0 Yes [id number] 800mg Take 1 [facility] 800 mg 7-21 tablet by ity of tablet 00:00: mouth [place] 00 every 6 Medical (six) Branch hours as needed for Pain (scale 4-6). ibuprofen 2020-0 Yes [id number] 800mg Take 1 [facility] 800 mg 7-21 tablet by ity of tablet 00:00: mouth [place] 00 every 6 Medical (six) Branch hours as needed for Pain (scale 4-6). ibuprofen 2020-0 Yes [id number] 800mg Take 1 [facility] 800 mg 7-21 tablet by ity of tablet 00:00: mouth [place] 00 every 6 Medical (six) Branch hours as needed for Pain (scale 4-6). ibuprofen 2020-0 Yes [id number] 800mg Take 1 [facility] 800 mg 7-21 tablet by ity of tablet 00:00: mouth [place] 00 every 6 Medical (six) Branch hours as needed for Pain (scale 4-6). ibuprofen 2020-0 Yes [id number] 800mg Take 1 [facility] 800 mg 7-21 tablet by ity of tablet 00:00: mouth [place] 00 every 6 Medical (six) Branch hours as needed for Pain (scale 4-6). ibuprofen 2020-0 Yes [id number] 800mg Take 1 [facility] 800 mg 7-21 tablet by ity of tablet 00:00: mouth [place] 00 every 6 Medical (six) Branch hours as needed for Pain (scale 4-6). ibuprofen 2020-0 Yes [id number] 800mg Take 1 [facility] 800 mg 7-21 tablet by ity of tablet 00:00: mouth [place] 00 every 6 Medical (six) Branch hours as needed for Pain (scale 4-6). ibuprofen 2020-0 Yes [id number] 800mg Take 1 [facility] 800 mg 7-21 tablet by ity of tablet 00:00: mouth [place] 00 every 6 Medical (six) Branch hours as needed for Pain (scale 4-6). ibuprofen 2020-0 Yes [id number] 800mg Take 1 [facility] 800 mg 7-21 tablet by ity of tablet 00:00: mouth [place] 00 every 6 Medical (six) Branch hours as needed for Pain (scale 4-6). ibuprofen 2020-0 Yes [id number] 800mg Take 1 [facility] 800 mg 7-21 tablet by ity of tablet 00:00: mouth [place] 00 every 6 Medical (six) Branch hours as needed for Pain (scale 4-6). ibuprofen 2020-0 Yes [id number] 800mg Take 1 [facility] 800 mg 7-21 tablet by ity of tablet 00:00: mouth [place] 00 every 6 Medical (six) Branch hours as needed for Pain (scale 4-6). ibuprofen 2020-0 Yes [id number] 800mg Take 1 [facility] 800 mg 7-21 tablet by ity of tablet 00:00: mouth [place] 00 every 6 Medical (six) Branch hours as needed for Pain (scale 4-6). ibuprofen 2020-0 Yes [id number] 800mg Take 1 [facility] 800 mg 7-21 tablet by ity of tablet 00:00: mouth [place] 00 every 6 Medical (six) Branch hours as needed for Pain (scale 4-6). ibuprofen 2020-0 Yes [id number] 800mg Take 1 [facility] 800 mg 7-21 tablet by ity of tablet 00:00: mouth [place] 00 every 6 Medical (six) Branch hours as needed for Pain (scale 4-6). ibuprofen 2020-0 Yes [id number] 800mg Take 1 [facility] 800 mg 7-21 tablet by ity of tablet 00:00: mouth [place] 00 every 6 Medical (six) Branch hours as needed for Pain (scale 4-6). ibuprofen 2020-0 Yes [id number] 800mg Take 1 [facility] 800 mg 7-21 tablet by ity of tablet 00:00: mouth [place] 00 every 6 Medical (six) Branch hours as needed for Pain (scale 4-6). ibuprofen 2020-0 Yes [id number] 800mg Take 1 [facility] 800 mg 7-21 tablet by ity of tablet 00:00: mouth [place] 00 every 6 Medical (six) Branch hours as needed for Pain (scale 4-6). ibuprofen 2020-0 Yes [id number] 800mg Take 1 [facility] 800 mg 7-21 tablet by ity of tablet 00:00: mouth [place] 00 every 6 Medical (six) Branch hours as needed for Pain (scale 4-6). ibuprofen 2020-0 Yes [id number] 800mg Take 1 [facility] 800 mg 7-21 tablet by ity of tablet 00:00: mouth [place] 00 every 6 Medical (six) Branch hours as needed for Pain (scale 4-6). ibuprofen 2020-0 Yes [id number] 800mg Take 1 [facility] 800 mg 7-21 tablet by ity of tablet 00:00: mouth [place] 00 every 6 Medical (six) Branch hours as needed for Pain (scale 4-6). ibuprofen 2020-0 Yes [id number] 800mg Take 1 [facility] 800 mg 7-21 tablet by ity of tablet 00:00: mouth [place] 00 every 6 Medical (six) Branch hours as needed for Pain (scale 4-6). ibuprofen 2020-0 Yes [id number] 800mg Take 1 [facility] 800 mg 7-21 tablet by ity of tablet 00:00: mouth [place] 00 every 6 Medical (six) Branch hours as needed for Pain (scale 4-6). ibuprofen 2020-0 Yes [id number] 800mg Take 1 [facility] 800 mg 7-21 tablet by ity of tablet 00:00: mouth [place] 00 every 6 Medical (six) Branch hours as needed for Pain (scale 4-6). ibuprofen 2020-0 Yes [id number] 800mg Take 1 [facility] 800 mg 7-21 tablet by ity of tablet 00:00: mouth [place] 00 every 6 Medical (six) Branch hours as needed for Pain (scale 4-6). ibuprofen 2020-0 Yes [id number] 800mg Take 1 [facility] 800 mg 7-21 tablet by ity of tablet 00:00: mouth [place] 00 every 6 Medical (six) Branch hours as needed for Pain (scale 4-6). ibuprofen 2020-0 Yes [id number] 800mg Take 1 [facility] 800 mg 7-21 tablet by ity of tablet 00:00: mouth [place] 00 every 6 Medical (six) Branch hours as needed for Pain (scale 4-6). ibuprofen 2020-0 Yes [id number] 800mg Take 1 [facility] 800 mg 7-21 tablet by ity of tablet 00:00: mouth [place] 00 every 6 Medical (six) Branch hours as needed for Pain (scale 4-6). ibuprofen 2020-0 Yes [id number] 800mg Take 1 [facility] 800 mg 7-21 tablet by ity of tablet 00:00: mouth [place] 00 every 6 Medical (six) Branch hours as needed for Pain (scale 4-6). ibuprofen 2020-0 Yes [id number] 800mg Take 1 [facility] 800 mg 7-21 tablet by ity of tablet 00:00: mouth [place] 00 every 6 Medical (six) Branch hours as needed for Pain (scale 4-6). ibuprofen 2020-0 Yes [id number] 800mg Take 1 [facility] 800 mg 7-21 tablet by ity of tablet 00:00: mouth [place] 00 every 6 Medical (six) Branch hours as needed for Pain (scale 4-6). ibuprofen 2020-0 Yes [id number] 800mg Take 1 [facility] 800 mg 7-21 tablet by ity of tablet 00:00: mouth [place] 00 every 6 Medical (six) Branch hours as needed for Pain (scale 4-6). ibuprofen 2020-0 Yes [id number] 800mg Take 1 [facility] 800 mg 7-21 tablet by ity of tablet 00:00: mouth [place] 00 every 6 Medical (six) Branch hours as needed for Pain (scale 4-6). ibuprofen 2020-0 Yes [id number] 800mg Take 1 [facility] 800 mg 7-21 tablet by ity of tablet 00:00: mouth [place] 00 every 6 Medical (six) Branch hours as needed for Pain (scale 4-6). ibuprofen 2020-0 Yes [id number] 800mg Take 1 [facility] 800 mg 7-21 tablet by ity of tablet 00:00: mouth [place] 00 every 6 Medical (six) Branch hours as needed for Pain (scale 4-6). ibuprofen 2020-0 Yes [id number] 800mg Take 1 [facility] 800 mg 7-21 tablet by ity of tablet 00:00: mouth [place] 00 every 6 Medical (six) Branch hours as needed for Pain (scale 4-6). ibuprofen 2020-0 Yes [id number] 800mg Take 1 [facility] 800 mg 7-21 tablet by ity of tablet 00:00: mouth [place] 00 every 6 Medical (six) Branch hours as needed for Pain (scale 4-6). ibuprofen 2020-0 2020- No [id number] 800mg Take 1 [facility] 800 mg 7-21 08-18 tablet by ity of tablet 00:00: 00:00 mouth [place] 00 :00 every 6 Medical (six) Branch hours as needed for Pain (scale 4-6). doxycycline 2020-0 2020- No [id number] 100mg Take 1 [facility] hyclate 100 02-25 capsule by i ty of mg capsule 00:00: 04:59 mouth 2 [place] 00 :00 (two) Medical times Branch daily for 14 days. metroNIDAZO 2020- No [id number] 500mg Take 1 [facility] LE 500 mg 02-25 tablet by ity of tablet 00:00: 04:59 mouth 2 [place] 00 :00 (two) Medical times Branch daily for 14 days. levonorgest 2020- No 1{devic Un alex rel 10-05 e} ity of ([place]) 23:00: 21:54 [place] IUD 1 00 :00 [employer] Branch levonorgest 2020- No 1{devic 1 Device, Univers rel 10-05 e} Intrauteri ity of (LILETTA) 23:00: 21:54 [place], ONCE, [place] IUD 1 00 :00 1 dose, [employer] Fri Branch 10/05/19 at 1700, Routine levonorgest 2020- No 1{devic Un alex rel 10-05 e} ity of ([place]) 23:00: 21:54 [place] IUD 1 00 :00 [employer] Branch levonorgest 2020- No 1{devic 1 Device, Univers rel 10-05 e} Intrauteri ity of (LILETTA) 23:00: 21:54 ne, ONCE, [place] IUD 1 00 :00 1 dose, [employer] Fri Branch 10/05/19 at 1700, Routine ibuprofen 2018-08 Yes [id number] 600mg Take 1 [facility] 600 mg 1-03 tablet by ity of tablet 00:00: mouth 00 every 6 Medical (six) Branch hours as needed for Pain (scale 1-3) or Pain (scale 4-6) (Pain). Take with food or milk. 2018-08 Yes [id number] 1{tbl} Take 1 [facility] vitamin 1-03 tablet by ity of w/FA tablet 00:00: mouth [place] 00 daily. Medical Branch docusate 2018-08 Yes [id number] 240mg Take 1 U nivers calcium 240 1-03 capsule by it y of mg capsule 00:00: mouth once [place] 00 daily as Medical needed for Branch Constipati on. ferrous 2018-08 Yes [id number] 325mg Take 1 Un alex sulfate 325 1-03 tablet by ity of mg (65 mg 00:00: mouth 2 [place] iron) 00 (two) Medical tablet times Branch daily. ibuprofen 2018-08 Yes [id number] 600mg Take 1 [facility] 600 mg 1-03 tablet by ity of tablet 00:00: mouth [place] 00 every 6 Medical (six) Branch hours as needed for Pain (scale 1-3) or Pain (scale 4-6) (Pain). Take with food or milk. 2018-08 Yes [id number] 1{tbl} Take 1 [facility] vitamin 1-03 tablet by ity of w/FA tablet 00:00: mouth [place] 00 daily. Medical Branch docusate 2018-08 Yes [id number] 240mg Take 1 U nivers calcium 240 1-03 capsule by it y of mg capsule 00:00: mouth once [place] 00 daily as Medical needed for Branch Constipati on. ferrous 2018-08 Yes [id number] 325mg Take 1 Un alex sulfate 325 1-03 tablet by ity of mg (65 mg 00:00: mouth 2 [place] iron) 00 (two) Medical tablet times Branch daily. ibuprofen 2018-08 Yes [id number] 600mg Take 1 [facility] 600 mg 1-03 tablet by ity of tablet 00:00: mouth [place] 00 every 6 Medical (six) Branch hours as needed for Pain (scale 1-3) or Pain (scale 4-6) (Pain). Take with food or milk. 2018-08 Yes [id number] 1{tbl} Take 1 [facility] vitamin 1-03 tablet by ity of w/FA tablet 00:00: mouth [place] 00 daily. Medical Branch docusate 2018-08 Yes [id number] 240mg Take 1 U nivers calcium 240 1-03 capsule by it y of mg capsule 00:00: mouth once [place] 00 daily as Medical needed for Branch Constipati on. ferrous 2018-08 Yes [id number] 325mg Take 1 Un alex sulfate 325 1-03 tablet by ity of mg (65 mg 00:00: mouth 2 [place] iron) 00 (two) Medical tablet times Branch daily. ibuprofen 2018-08 Yes [id number] 600mg Take 1 [facility] 600 mg 1-03 tablet by ity of tablet 00:00: mouth [place] 00 every 6 Medical (six) Branch hours as needed for Pain (scale 1-3) or Pain (scale 4-6) (Pain). Take with food or milk. 2018-08 Yes [id number] 1{tbl} Take 1 [facility] vitamin 1-03 tablet by ity of w/FA tablet 00:00: mouth [place] 00 daily. Medical Branch docusate 2018-08 Yes [id number] 240mg Take 1 U nivers calcium 240 1-03 capsule by it y of mg capsule 00:00: mouth once [place] 00 daily as Medical needed for Branch Constipati on. ferrous 2018-08 Yes [id number] 325mg Take 1 Un alex sulfate 325 1-03 tablet by ity of mg (65 mg 00:00: mouth 2 [place] iron) 00 (two) Medical tablet times Branch daily. ibuprofen 2018-08 Yes [id number] 600mg Take 1 [facility] 600 mg 1-03 tablet by ity of tablet 00:00: mouth [place] 00 every 6 Medical (six) Branch hours as needed for Pain (scale 1-3) or Pain (scale 4-6) (Pain). Take with food or milk. 2018-08 Yes [id number] 1{tbl} Take 1 [facility] vitamin 1-03 tablet by ity of w/FA tablet 00:00: mouth [place] 00 daily. Medical Branch docusate 2018-08 Yes [id number] 240mg Take 1 U nivers calcium 240 1-03 capsule by it y of mg capsule 00:00: mouth once [place] 00 daily as Medical needed for Branch Constipati on. ferrous 2018-08 Yes [id number] 325mg Take 1 Un alex sulfate 325 1-03 tablet by ity of mg (65 mg 00:00: mouth 2 [place] iron) 00 (two) Medical tablet times Branch daily. ibuprofen 2018-08 Yes [id number] 600mg Take 1 [facility] 600 mg 1-03 tablet by ity of tablet 00:00: mouth [place] 00 every 6 Medical (six) Branch hours as needed for Pain (scale 1-3) or Pain (scale 4-6) (Pain). Take with food or milk. 2018-08 Yes [id number] 1{tbl} Take 1 [facility] vitamin 1-03 tablet by ity of w/FA tablet 00:00: mouth [place] 00 daily. Medical Branch docusate 2018-08 Yes [id number] 240mg Take 1 U nivers calcium 240 1-03 capsule by it y of mg capsule 00:00: mouth once [place] 00 daily as Medical needed for Branch Constipati on. ferrous 2018-08 Yes [id number] 325mg Take 1 Un alex sulfate 325 1-03 tablet by ity of mg (65 mg 00:00: mouth 2 [place] iron) 00 (two) Medical tablet times Branch daily. ibuprofen 2018-08 Yes [id number] 600mg Take 1 [facility] 600 mg 1-03 tablet by [facility] of tablet 00:00: mouth [place] 00 every 6 Medical (six) Branch hours as needed for Pain (scale 1-3) or Pain (scale 4-6) (Pain). Take with food or milk. 2018-08 Yes [id number] 1{tbl} Take 1 [facility] vitamin 1-03 tablet by [facility] of w/FA tablet 00:00: mouth [place] 00 daily. Medical Branch docusate 2018-08 Yes [id number] 240mg Take 1 U nivers calcium 240 1-03 capsule by it y of mg capsule 00:00: mouth once [place] 00 daily as Medical needed for Branch Constipati on. ferrous 2018-08 Yes [id number] 325mg Take 1 Un alex sulfate 325 1-03 tablet by [facility] of mg (65 mg 00:00: mouth 2 [place] iron) 00 (two) Medical tablet times Branch daily. ibuprofen 2018-08 Yes [id number] 600mg Take 1 [facility] 600 mg 1-03 tablet by [facility] of tablet 00:00: mouth [place] 00 every 6 Medical (six) Branch hours as needed for Pain (scale 1-3) or Pain (scale 4-6) (Pain). Take with food or milk. 2018-08 Yes [id number] 1{tbl} Take 1 [facility] vitamin 1-03 tablet by [facility] of w/FA tablet 00:00: mouth [place] 00 daily. Medical Branch docusate 2018-08 Yes [id number] 240mg Take 1 U nivers calcium 240 1-03 capsule by it y of mg capsule 00:00: mouth once [place] 00 daily as Medical needed for Branch Constipati on. ferrous 2018- Yes [id number] 325mg Take 1 Un alex sulfate 325 1-03 tablet by [facility] of mg (65 mg 00:00: mouth 2 [place] iron) 00 (two) Medical tablet times Branch daily. ibuprofen 2018-08 Yes [id number] 600mg Take 1 [facility] 600 mg 1-03 tablet by [facility] of tablet 00:00: mouth [place] 00 every 6 Medical (six) Branch hours as needed for Pain (scale 1-3) or Pain (scale 4-6) (Pain). Take with food or milk. 2018-08 Yes [id number] 1{tbl} Take 1 [facility] vitamin 1-03 tablet by [facility] of w/FA tablet 00:00: mouth [place] 00 daily. Medical Branch docusate 2018-08 Yes [id number] 240mg Take 1 U nivers calcium 240 1-03 capsule by [facility] y of mg capsule 00:00: mouth once [place] 00 daily as Medical needed for Branch Constipati on. ferrous 2018-08 Yes [id number] 325mg Take 1 Un alex sulfate 325 1-03 tablet by [facility] of mg (65 mg 00:00: mouth 2 [place] iron) 00 (two) Medical tablet times Branch daily. ibuprofen 2018-08 Yes [id number] 600mg Take 1 [facility] 600 mg 1-03 tablet by [facility] of tablet 00:00: mouth [place] 00 every 6 Medical (six) Branch hours as needed for Pain (scale 1-3) or Pain (scale 4-6) (Pain). Take with food or milk. 2018-08 Yes [id number] 1{tbl} Take 1 [facility] vitamin 1-03 tablet by [facility] of w/FA tablet 00:00: mouth [place] 00 daily. Medical Branch docusate 2018-08 Yes [id number] 240mg Take 1 [facility] nivers calcium 240 1-03 capsule by [facility] y of mg capsule 00:00: mouth once [place] 00 daily as Medical needed for Branch Constipati on. ferrous 2018-08 Yes [id number] 325mg Take 1 Un alex sulfate 325 1-03 tablet by [facility] of mg (65 mg 00:00: mouth 2 [place] iron) 00 (two) Medical tablet times Branch daily. ibuprofen 2018-08 Yes [id number] 600mg Take 1 [facility] 600 mg 1-03 tablet by [facility] of tablet 00:00: mouth [place] 00 every 6 Medical (six) Branch hours as needed for Pain (scale 1-3) or Pain (scale 4-6) (Pain). Take with food or milk. 2018-08 Yes [id number] 1{tbl} Take 1 [facility] vitamin 1-03 tablet by [facility] of w/FA tablet 00:00: mouth [place] 00 daily. Medical Branch docusate 2018-08 Yes [id number] 240mg Take 1 [facility] nivers calcium 240 1-03 capsule by [facility] y of mg capsule 00:00: mouth once [place] 00 daily as Medical needed for Branch Constipati on. ferrous 2018-08 Yes [id number] 325mg Take 1 Un alex sulfate 325 1-03 tablet by [facility] of mg (65 mg 00:00: mouth 2 [place] iron) 00 (two) Medical tablet times Branch daily. ibuprofen 2018-08 Yes [id number] 600mg Take 1 [facility] 600 mg 1-03 tablet by [facility] of tablet 00:00: mouth [place] 00 every 6 Medical (six) Branch hours as needed for Pain (scale 1-3) or Pain (scale 4-6) (Pain). Take with food or milk. 2018-08 Yes [id number] 1{tbl} Take 1 [facility] vitamin 1-03 tablet by [facility] of w/FA tablet 00:00: mouth [place] 00 daily. Medical Branch docusate 2018-08 Yes [id number] 240mg Take 1 [facility] nivers calcium 240 1-03 capsule by [facility] y of mg capsule 00:00: mouth once [place] 00 daily as Medical needed for Branch Constipati on. ferrous 2018-08 Yes [id number] 325mg Take 1 Un alex sulfate 325 1-03 tablet by [facility] of mg (65 mg 00:00: mouth 2 [place] iron) 00 (two) Medical tablet times Branch daily. ibuprofen 2018-08 Yes [id number] 600mg Take 1 [facility] 600 mg 1-03 tablet by [facility] of tablet 00:00: mouth [place] 00 every 6 Medical (six) Branch hours as needed for Pain (scale 1-3) or Pain (scale 4-6) (Pain). Take with food or milk. 2018-08 Yes [id number] 1{tbl} Take 1 [facility] vitamin 1-03 tablet by [facility] of w/FA tablet 00:00: mouth [place] 00 daily. Medical Branch docusate 2018-08 Yes [id number] 240mg Take 1 [facility] nivers calcium 240 1-03 capsule by it y of mg capsule 00:00: mouth once [place] 00 daily as Medical needed for Branch Constipati on. ferrous 2018-08 Yes [id number] 325mg Take 1 Un alex sulfate 325 1-03 tablet by [facility] of mg (65 mg 00:00: mouth 2 [place] iron) 00 (two) Medical tablet times Branch daily. ibuprofen 2018-08 Yes [id number] 600mg Take 1 [facility] 600 mg 1-03 tablet by [facility] of tablet 00:00: mouth [place] 00 every 6 Medical (six) Branch hours as needed for Pain (scale 1-3) or Pain (scale 4-6) (Pain). Take with food or milk. 2018-08 Yes [id number] 1{tbl} Take 1 [facility] vitamin 1-03 tablet by [facility] of w/FA tablet 00:00: mouth [place] 00 daily. Medical Branch docusate 2018-08 Yes [id number] 240mg Take 1 [facility] nivers calcium 240 1-03 capsule by it y of mg capsule 00:00: mouth once [place] 00 daily as Medical needed for Branch Constipati on. ferrous 2018-08 Yes [id number] 325mg Take 1 Un alex sulfate 325 1-03 tablet by [facility] of mg (65 mg 00:00: mouth 2 [place] iron) 00 (two) Medical tablet times Branch daily. ibuprofen 2018-08 Yes [id number] 600mg Take 1 [facility] 600 mg 1-03 tablet by [facility] of tablet 00:00: mouth [place] 00 every 6 Medical (six) Branch hours as needed for Pain (scale 1-3) or Pain (scale 4-6) (Pain). Take with food or milk. 2018-08 Yes [id number] 1{tbl} Take 1 [facility] vitamin 1-03 tablet by [facility] of w/FA tablet 00:00: mouth [place] 00 daily. Medical Branch docusate 2018-08 Yes [id number] 240mg Take 1 [facility] nivers calcium 240 1-03 capsule by it y of mg capsule 00:00: mouth once [place] 00 daily as Medical needed for Branch Constipati on. ferrous 2018-08 Yes [id number] 325mg Take 1 Un alex sulfate 325 1-03 tablet by [facility] of mg (65 mg 00:00: mouth 2 [place] iron) 00 (two) Medical tablet times Branch daily. ibuprofen 2018-08 Yes [id number] 600mg Take 1 [facility] 600 mg 1-03 tablet by [facility] of tablet 00:00: mouth [place] 00 every 6 Medical (six) Branch hours as needed for Pain (scale 1-3) or Pain (scale 4-6) (Pain). Take with food or milk. 2018-08 Yes [id number] 1{tbl} Take 1 [facility] vitamin 1-03 tablet by [facility] of w/FA tablet 00:00: mouth [place] 00 daily. Medical Branch docusate 2018-08 Yes [id number] 240mg Take 1 [facility] nivers calcium 240 1-03 capsule by [facility] y of mg capsule 00:00: mouth once [place] 00 daily as Medical needed for Branch Constipati on. ferrous 2018-08 Yes [id number] 325mg Take 1 Un alex sulfate 325 1-03 tablet by [facility] of mg (65 mg 00:00: mouth 2 [place] iron) 00 (two) Medical tablet times Branch daily. ibuprofen 2018-08 Yes [id number] 600mg Take 1 [facility] 600 mg 1-03 tablet by [facility] of tablet 00:00: mouth [place] 00 every 6 Medical (six) Branch hours as needed for Pain (scale 1-3) or Pain (scale 4-6) (Pain). Take with food or milk. 2018-08 Yes [id number] 1{tbl} Take 1 [facility] vitamin 1-03 tablet by [facility] of w/FA tablet 00:00: mouth [place] [facility]. [facility] [id number] 240mg Take 1 [facility] nivers calcium 240 1-03 capsule by it y of mg capsule 00:00: mouth once [place] 00 daily as Medical needed for Branch Constipati on. ferrous 2018-08 Yes [id number] 325mg Take 1 Un alex sulfate 325 1-03 tablet by [facility] of mg (65 mg 00:00: mouth 2 [place] iron) 00 (two) Medical tablet times Branch daily. ibuprofen 2018-08 Yes [id number] 600mg Take 1 [facility] 600 mg 1-03 tablet by [facility] of tablet 00:00: mouth [place] 00 every 6 Medical (six) Branch hours as needed for Pain (scale 1-3) or Pain (scale 4-6) (Pain). Take with food or milk. 2018-08 Yes [id number] 1{tbl} Take 1 [facility] vitamin 1-03 tablet by [facility] of w/FA tablet 00:00: mouth [place] 00 daily. [facility] [id number] 240mg Take 1 [facility] nivers calcium 240 1-03 capsule by it y of mg capsule 00:00: mouth once [place] 00 daily as Medical needed for Branch Constipati on. ferrous 2018-08 Yes [id number] 325mg Take 1 Un alex sulfate 325 1-03 tablet by [facility] of mg (65 mg 00:00: mouth 2 [place] iron) 00 (two) Medical tablet times Branch daily. ibuprofen 2018-08 Yes [id number] 600mg Take 1 [facility] 600 mg 1-03 tablet by [facility] of tablet 00:00: mouth [place] 00 every 6 Medical (six) Branch hours as needed for Pain (scale 1-3) or Pain (scale 4-6) (Pain). Take with food or milk. 2018-08 Yes [id number] 1{tbl} Take 1 [facility] vitamin 1-03 tablet by [facility] of w/FA tablet 00:00: mouth [place] 00 daily. Medical Branch docusate 2018-08 Yes [id number] 240mg Take 1 [facility] nivers calcium 240 1-03 capsule by it y of mg capsule 00:00: mouth once [place] 00 daily as Medical needed for Branch Constipati on. ferrous 2018-08 Yes [id number] 325mg Take 1 Un alex sulfate 325 1-03 tablet by [facility] of mg (65 mg 00:00: mouth 2 [place] iron) 00 (two) Medical tablet times Branch daily. ibuprofen 2018-08 Yes [id number] 600mg Take 1 [facility] 600 mg 1-03 tablet by [facility] of tablet 00:00: mouth [place] 00 every 6 Medical (six) Branch hours as needed for Pain (scale 1-3) or Pain (scale 4-6) (Pain). Take with food or milk. 2018-08 Yes [id number] 1{tbl} Take 1 [facility] vitamin 1-03 tablet by [facility] of w/FA tablet 00:00: mouth [place] 00 daily. Medical Branch docusate 2018-08 Yes [id number] 240mg Take 1 [facility] nivers calcium 240 1-03 capsule by it y of mg capsule 00:00: mouth once [place] 00 daily as Medical needed for Branch Constipati on. ferrous 2018-08 Yes [id number] 325mg Take 1 Un alex sulfate 325 1-03 tablet by [facility]y of mg (65 mg 00:00: mouth 2 [place] iron) 00 (two) Medical tablet times Branch daily. ibuprofen 2018-08 Yes [id number] 600mg Take 1 [facility] 600 mg 1-03 tablet by [facility]y of tablet 00:00: mouth [place] 00 every 6 Medical (six) Branch hours as needed for Pain (scale 1-3) or Pain (scale 4-6) (Pain). Take with food or milk. 2018-08 Yes [id number] 1{tbl} Take 1 [facility] vitamin 1-03 tablet by [facility] of w/FA tablet 00:00: mouth [place] 00 daily. Medical Branch docusate 2018-08 Yes [id number] 240mg Take 1 [facility] nivers calcium 240 1-03 capsule by it y of mg capsule 00:00: mouth once [place] 00 daily as Medical needed for Branch Constipati on. ferrous 2018-08 Yes [id number] 325mg Take 1 Un alex sulfate 325 1-03 tablet by [facility] of mg (65 mg 00:00: mouth 2 [place] iron) 00 (two) Medical tablet times Branch daily. ibuprofen 2018-08 Yes [id number] 600mg Take 1 [facility] 600 mg 1-03 tablet by [facility] of tablet 00:00: mouth [place] 00 every 6 Medical (six) Branch hours as needed for Pain (scale 1-3) or Pain (scale 4-6) (Pain). Take with food or milk. 2018-08 Yes [id number] 1{tbl} Take 1 [facility] vitamin 1-03 tablet by [facility] of w/FA tablet 00:00: mouth [place] 00 daily. Medical Branch docusate 2018-08 Yes [id number] 240mg Take 1 [facility] nivers calcium 240 1-03 capsule by it y of mg capsule 00:00: mouth once [place] 00 daily as Medical needed for Branch Constipati on. ferrous 2018-08 Yes [id number] 325mg Take 1 Un alex sulfate 325 1-03 tablet by [facility]y of mg (65 mg 00:00: mouth 2 [place] iron) 00 (two) Medical tablet times Branch daily. ibuprofen 2018-08 Yes [id number] 600mg Take 1 [facility] 600 mg 1-03 tablet by ity of tablet 00:00: mouth [place] 00 every 6 Medical (six) Branch hours as needed for Pain (scale 1-3) or Pain (scale 4-6) (Pain). Take with food or milk. 2018-08 Yes [id number] 1{tbl} Take 1 [facility] vitamin 1-03 tablet by [facility] of w/FA tablet 00:00: mouth [place] 00 daily. Medical Branch docusate 2018-08 Yes [id number] 240mg Take 1 [facility] nivers calcium 240 1-03 capsule by it y of mg capsule 00:00: mouth once [place] 00 daily as Medical needed for Branch Constipati on. ferrous 2018-08 Yes [id number] 325mg Take 1 Un alex sulfate 325 1-03 tablet by [facility] of mg (65 mg 00:00: mouth 2 [place] iron) 00 (two) Medical tablet times Branch daily. ibuprofen 2018-08 Yes [id number] 600mg Take 1 [facility] 600 mg 1-03 tablet by [facility] of tablet 00:00: mouth [place] 00 every 6 Medical (six) Branch hours as needed for Pain (scale 1-3) or Pain (scale 4-6) (Pain). Take with food or milk. 2018-08 Yes [id number] 1{tbl} Take 1 [facility] vitamin 1-03 tablet by [facility] of w/FA tablet 00:00: mouth [place] 00 daily. Medical Branch docusate 2018-08 Yes [id number] 240mg Take 1 [facility] nivers calcium 240 1-03 capsule by it y of mg capsule 00:00: mouth once [place] 00 daily as Medical needed for Branch Constipati on. ferrous 2018-08 Yes [id number] 325mg Take 1 Un alex sulfate 325 1-03 tablet by ity of mg (65 mg 00:00: mouth 2 [place] iron) 00 (two) Medical tablet times Branch daily. ibuprofen 2018-08 Yes [id number] 600mg Take 1 [facility] 600 mg 1-03 tablet by [facility] of tablet 00:00: mouth [place] 00 every 6 Medical (six) Branch hours as needed for Pain (scale 1-3) or Pain (scale 4-6) (Pain). Take with food or milk. 2018-08 Yes [id number] 1{tbl} Take 1 [facility] vitamin 1-03 tablet by [facility] of w/FA tablet 00:00: mouth [place] 00 daily. Medical Branch docusate 2018-08 Yes [id number] 240mg Take 1 [facility] nivers calcium 240 1-03 capsule by it y of mg capsule 00:00: mouth once [place] 00 daily as Medical needed for Branch Constipati on. ferrous 2018-08 Yes [id number] 325mg Take 1 Un alex sulfate 325 1-03 tablet by [facility] of mg (65 mg 00:00: mouth 2 [place] iron) 00 (two) Medical tablet times Branch daily. ibuprofen 2018-08 Yes [id number] 600mg Take 1 [facility] 600 mg 1-03 tablet by [facility] of tablet 00:00: mouth [place] 00 every 6 Medical (six) Branch hours as needed for Pain (scale 1-3) or Pain (scale 4-6) (Pain). Take with food or milk. 2018-08 Yes [id number] 1{tbl} Take 1 [facility] vitamin 1-03 tablet by [facility] of w/FA tablet 00:00: mouth [place] 00 daily. Medical Branch docusate 2018-08 Yes [id number] 240mg Take 1 [facility] nivers calcium 240 1-03 capsule by it y of mg capsule 00:00: mouth once [place] 00 daily as Medical needed for Branch Constipati on. ferrous 2018-08 Yes [id number] 325mg Take 1 Un alex sulfate 325 1-03 tablet by ity of mg (65 mg 00:00: mouth 2 [place] iron) 00 (two) Medical tablet times Branch daily. ibuprofen 2018-08 Yes [id number] 600mg Take 1 [facility] 600 mg 1-03 tablet by [facility]y of tablet 00:00: mouth [place] 00 every 6 Medical (six) Branch hours as needed for Pain (scale 1-3) or Pain (scale 4-6) (Pain). Take with food or milk. 2018-08 Yes [id number] 1{tbl} Take 1 [facility] vitamin 1-03 tablet by [facility] of w/FA tablet 00:00: mouth [place] 00 daily. Medical Branch docusate 2018-08 Yes [id number] 240mg Take 1 [facility] nivers calcium 240 1-03 capsule by it y of mg capsule 00:00: mouth once [place] 00 daily as Medical needed for Branch Constipati on. ferrous 2018-08 Yes [id number] 325mg Take 1 Un alex sulfate 325 1-03 tablet by [facility] of mg (65 mg 00:00: mouth 2 [place] iron) 00 (two) Medical tablet times Branch daily. ibuprofen 2018-08 Yes [id number] 600mg Take 1 [facility] 600 mg 1-03 tablet by [facility]y of tablet 00:00: mouth [place] 00 every 6 Medical (six) Branch hours as needed for Pain (scale 1-3) or Pain (scale 4-6) (Pain). Take with food or milk. 2018-08 Yes [id number] 1{tbl} Take 1 [facility] vitamin 1-03 tablet by [facility] of w/FA tablet 00:00: mouth [place] 00 daily. Medical Branch docusate 2018-08 Yes [id number] 240mg Take 1 [facility] nivers calcium 240 1-03 capsule by it y of mg capsule 00:00: mouth once [place] 00 daily as Medical needed for Branch Constipati on. ferrous 2018-08 Yes [id number] 325mg Take 1 Un alex sulfate 325 1-03 tablet by ity of mg (65 mg 00:00: mouth 2 [place] iron) 00 (two) Medical tablet times Branch daily. ibuprofen 2018-08 Yes [id number] 600mg Take 1 [facility] 600 mg 1-03 tablet by [facility] of tablet 00:00: mouth [place] 00 every 6 Medical (six) Branch hours as needed for Pain (scale 1-3) or Pain (scale 4-6) (Pain). Take with food or milk. 2018-08 Yes [id number] 1{tbl} Take 1 [facility] vitamin 1-03 tablet by [facility] of w/FA tablet 00:00: mouth [place] 00 daily. Medical Branch docusate 2018-08 Yes [id number] 240mg Take 1 [facility] nivers calcium 240 1-03 capsule by it y of mg capsule 00:00: mouth once [place] 00 daily as Medical needed for Branch Constipati on. ferrous 2018-08 Yes [id number] 325mg Take 1 Un alex sulfate 325 1-03 tablet by [facility]y of mg (65 mg 00:00: mouth 2 [place] iron) 00 (two) Medical tablet times Branch daily. ibuprofen 2018-08 Yes [id number] 600mg Take 1 [facility] 600 mg 1-03 tablet by ity of tablet 00:00: mouth [place] 00 every 6 Medical (six) Branch hours as needed for Pain (scale 1-3) or Pain (scale 4-6) (Pain). Take with food or milk. 2018-08 Yes [id number] 1{tbl} Take 1 [facility] vitamin 1-03 tablet by [facility] of w/FA tablet 00:00: mouth [place] 00 daily. Medical Branch docusate 2018-08 Yes [id number] 240mg Take 1 [facility] nivers calcium 240 1-03 capsule by it y of mg capsule 00:00: mouth once [place] 00 daily as Medical needed for Branch Constipati on. ferrous 2018-08 Yes [id number] 325mg Take 1 Un alex sulfate 325 1-03 tablet by ity of mg (65 mg 00:00: mouth 2 [place] iron) 00 (two) Medical tablet times Branch daily. ibuprofen 2018-08 Yes [id number] 600mg Take 1 [facility] 600 mg 1-03 tablet by it[facility] of tablet 00:00: mouth [place] 00 every 6 Medical (six) Branch hours as needed for Pain (scale 1-3) or Pain (scale 4-6) (Pain). Take with food or milk. 2018-08 Yes [id number] 1{tbl} Take 1 [facility] vitamin 1-03 tablet by [facility] of w/FA tablet 00:00: mouth [place] 00 daily. Medical Branch docusate 2018-08 Yes [id number] 240mg Take 1 [facility] nivers calcium 240 1-03 capsule by it y of mg capsule 00:00: mouth once [place] 00 daily as Medical needed for Branch Constipati on. ferrous 2018-08 Yes [id number] 325mg Take 1 Un alex sulfate 325 1-03 tablet by ity of mg (65 mg 00:00: mouth 2 [place] iron) 00 (two) Medical tablet times Branch daily. ibuprofen 2018-08 Yes [id number] 600mg Take 1 [facility] 600 mg 1-03 tablet by it[facility] of tablet 00:00: mouth [place] 00 every 6 Medical (six) Branch hours as needed for Pain (scale 1-3) or Pain (scale 4-6) (Pain). Take with food or milk. 2018-08 Yes [id number] 1{tbl} Take 1 [facility] vitamin 1-03 tablet by it[facility] of w/FA tablet 00:00: mouth [place] 00 daily. Medical Branch docusate 2018-08 Yes [id number] 240mg Take 1 [facility] nivers calcium 240 1-03 capsule by it y of mg capsule 00:00: mouth once [place] 00 daily as Medical needed for Branch Constipati on. ferrous 2018-08 Yes [id number] 325mg Take 1 Un alex sulfate 325 1-03 tablet by [facility] of mg (65 mg 00:00: mouth 2 [place] iron) 00 (two) Medical tablet times Branch daily. ibuprofen 2018-08 Yes [id number] 600mg Take 1 [facility] 600 mg 1-03 tablet by [facility] of tablet 00:00: mouth [place] 00 every 6 Medical (six) Branch hours as needed for Pain (scale 1-3) or Pain (scale 4-6) (Pain). Take with food or milk. 2018-08 Yes [id number] 1{tbl} Take 1 [facility] vitamin 1-03 tablet by [facility] of w/FA tablet 00:00: mouth [place] 00 daily. Medical Branch docusate 2018-08 Yes [id number] 240mg Take 1 [facility] nivers calcium 240 1-03 capsule by it y of mg capsule 00:00: mouth once [place] 00 daily as Medical needed for Branch Constipati on. ferrous 2018-08 Yes [id number] 325mg Take 1 Un alex sulfate 325 1-03 tablet by ity of mg (65 mg 00:00: mouth 2 [place] iron) 00 (two) Medical tablet times Branch daily. ibuprofen 2018-08 Yes [id number] 600mg Take 1 [facility] 600 mg 1-03 tablet by [facility] of tablet 00:00: mouth [place] 00 every 6 Medical (six) Branch hours as needed for Pain (scale 1-3) or Pain (scale 4-6) (Pain). Take with food or milk. 2018-08 Yes [id number] 1{tbl} Take 1 [facility] vitamin 1-03 tablet by [facility] of w/FA tablet 00:00: mouth [place] 00 daily. Medical Branch docusate 2018-08 Yes [id number] 240mg Take 1 [facility] nivers calcium 240 1-03 capsule by it y of mg capsule 00:00: mouth once [place] 00 daily as Medical needed for Branch Constipati on. ferrous 2018-08 Yes [id number] 325mg Take 1 Un alex sulfate 325 1-03 tablet by ity of mg (65 mg 00:00: mouth 2 [place] iron) 00 (two) Medical tablet times Branch daily. ibuprofen 2018-08 Yes [id number] 600mg Take 1 [facility] 600 mg 1-03 tablet by [facility] of tablet 00:00: mouth [place] 00 every 6 Medical (six) Branch hours as needed for Pain (scale 1-3) or Pain (scale 4-6) (Pain). Take with food or milk. 2018-08 Yes [id number] 1{tbl} Take 1 [facility] vitamin 1-03 tablet by [facility] of w/FA tablet 00:00: mouth [place] 00 daily. Medical Branch docusate 2018-08 Yes [id number] 240mg Take 1 [facility] nivers calcium 240 1-03 capsule by it y of mg capsule 00:00: mouth once [place] 00 daily as Medical needed for Branch Constipati on. ferrous 2018-08 Yes [id number] 325mg Take 1 Un alex sulfate 325 1-03 tablet by ity of mg (65 mg 00:00: mouth 2 [place] iron) 00 (two) Medical tablet times Branch daily. ibuprofen 2018-08 Yes [id number] 600mg Take 1 [facility] 600 mg 1-03 tablet by ity of tablet 00:00: mouth [place] 00 every 6 Medical (six) Branch hours as needed for Pain (scale 1-3) or Pain (scale 4-6) (Pain). Take with food or milk. 2018-08 Yes [id number] 1{tbl} Take 1 [facility] vitamin 1-03 tablet by [facility]y of w/FA tablet 00:00: mouth [place] 00 daily. Medical Branch docusate 2018-08 Yes [id number] 240mg Take 1 [facility] nivers calcium 240 1-03 capsule by it y of mg capsule 00:00: mouth once [place] 00 daily as Medical needed for Branch Constipati on. ferrous 2018-08 Yes [id number] 325mg Take 1 Un alex sulfate 325 1-03 tablet by ity of mg (65 mg 00:00: mouth 2 [place] iron) 00 (two) Medical tablet times Branch daily. ibuprofen 2018-08 Yes [id number] 600mg Take 1 [facility] 600 mg 1-03 tablet by ity of tablet 00:00: mouth [place] 00 every 6 Medical (six) Branch hours as needed for Pain (scale 1-3) or Pain (scale 4-6) (Pain). Take with food or milk. 2018-08 Yes [id number] 1{tbl} Take 1 [facility] vitamin 1-03 tablet by ity of w/FA tablet 00:00: mouth [place] 00 daily. [facility] [id number] 240mg Take 1 U nivers calcium 240 1-03 capsule by it y of mg capsule 00:00: mouth once [place] 00 daily as Medical needed for Branch Constipati on. ferrous 2018-08 Yes [id number] 325mg Take 1 Un alex sulfate 325 1-03 tablet by ity of mg (65 mg 00:00: mouth 2 [place] iron) 00 (two) Medical tablet times Branch daily. ibuprofen 2018-08 Yes [id number] 600mg Take 1 [facility] 600 mg 1-03 tablet by ity of tablet 00:00: mouth [place] 00 every 6 Medical (six) Branch hours as needed for Pain (scale 1-3) or Pain (scale 4-6) (Pain). Take with food or milk. 2018-08 Yes [id number] 1{tbl} Take 1 [facility] vitamin 1-03 tablet by ity of w/FA tablet 00:00: mouth [place] 00 daily. Medical [place] docusate 2018-08 Yes [id number] 240mg Take 1 U nivers calcium 240 1-03 capsule by it y of mg capsule 00:00: mouth once [place] 00 daily as Medical needed for Branch Constipati on. ferrous 2018-08 Yes [id number] 325mg Take 1 Un alex sulfate 325 1-03 tablet by ity of mg (65 mg 00:00: mouth 2 [place] iron) 00 (two) Medical tablet times Branch daily. ibuprofen 2018-08 Yes [id number] 600mg Take 1 [facility] 600 mg 1-03 tablet by ity of tablet 00:00: mouth [place] 00 every 6 Medical (six) Branch hours as needed for Pain (scale 1-3) or Pain (scale 4-6) (Pain). Take with food or milk. 2018-08 Yes [id number] 1{tbl} Take 1 [facility] vitamin 1-03 tablet by ity of w/FA tablet 00:00: mouth [place] 00 daily. Medical Branch docusate 2018-08 Yes [id number] 240mg Take 1 [facility] nivers calcium 240 1-03 capsule by it y of mg capsule 00:00: mouth once [place] 00 daily as Medical needed for Branch Constipati on. ferrous 2018-08 Yes [id number] 325mg Take 1 Un alex sulfate 325 1-03 tablet by ity of mg (65 mg 00:00: mouth 2 [place] iron) 00 (two) Medical tablet times Branch daily. ibuprofen 2018-08 Yes [id number] 600mg Take 1 [facility] 600 mg 1-03 tablet by ity of tablet 00:00: mouth [place] 00 every 6 Medical (six) Branch hours as needed for Pain (scale 1-3) or Pain (scale 4-6) (Pain). Take with food or milk. 2018-08 Yes [id number] 1{tbl} Take 1 [facility] vitamin 1-03 tablet by ity of w/FA tablet 00:00: mouth [place] 00 daily. Medical Branch docusate 2018-08 Yes [id number] 240mg Take 1 [facility] nivers calcium 240 1-03 capsule by it y of mg capsule 00:00: mouth once [place] 00 daily as Medical needed for Branch Constipati on. ferrous 2018-08 Yes [id number] 325mg Take 1 Un alex sulfate 325 1-03 tablet by [facility] mg (65 mg 00:00: mouth 2 [place] iron) 00 (two) Medical tablet times Branch daily. ibuprofen 2018-08 Yes [id number] 600mg Take 1 [facility] 600 mg 1-03 tablet by [facility] tablet 00:00: mouth [place] 00 every 6 Medical (six) Branch hours as needed for Pain (scale 1-3) or Pain (scale 4-6) (Pain). Take with food or milk. 2018-08 Yes [id number] 1{tbl} Take 1 [facility] vitamin 1-03 tablet by [facility] of w/FA tablet 00:00: mouth [place] 00 daily. Medical Branch docusate 2018-08 Yes [id number] 240mg Take 1 [facility] nivers calcium 240 1-03 capsule by [facility] y [facility] mg capsule 00:00: mouth once [place] 00 daily as Medical needed for Branch Constipati on. ferrous 2018-08 Yes [id number] 325mg Take 1 Un alex sulfate 325 1-03 tablet by [facility] mg (65 mg 00:00: mouth 2 [place] iron) 00 (two) Medical tablet times Branch daily. ibuprofen 2018-08 Yes [id number] 600mg Take 1 [facility] 600 mg 1-03 tablet by [facility] tablet 00:00: mouth [place] 00 every 6 Medical (six) Branch hours as needed for Pain (scale 1-3) or Pain (scale 4-6) (Pain). Take with food or milk. 2018-08 Yes [id number] 1{tbl} Take 1 [facility] vitamin 1-03 tablet by [facility] of w/FA tablet 00:00: mouth [place] 00 daily. Medical Branch docusate 2018-08 Yes [id number] 240mg Take 1 [facility] nivers calcium 240 1-03 capsule by [facility] mg capsule 00:00: mouth once [place] 00 daily as Medical needed for Branch Constipati on. ferrous 2018-08 Yes [id number] 325mg Take 1 Un alex sulfate 325 1-03 tablet by [facility] mg (65 mg 00:00: mouth 2 [place] iron) 00 (two) Medical tablet times Branch daily. ibuprofen 2018-08 Yes [id number] 600mg Take 1 [facility] 600 mg 1-03 tablet by [facility] of tablet 00:00: mouth [place] 00 every 6 Medical (six) Branch hours as needed for Pain (scale 1-3) or Pain (scale 4-6) (Pain). Take with food or milk. 2018-08 Yes [id number] 1{tbl} Take 1 [facility] vitamin 1-03 tablet by [facility] of w/FA tablet 00:00: mouth [place] 00 daily. Medical Branch docusate 2018-08 Yes [id number] 240mg Take 1 [facility] nivers calcium 240 1-03 capsule by [facility] mg capsule 00:00: mouth once [place] 00 daily as Medical needed for Branch Constipati on. ferrous 2018-08 Yes [id number] 325mg Take 1 [facility] alex sulfate 325 1-03 tablet by [facility] mg (65 mg 00:00: mouth 2 [place] iron) 00 (two) Medical tablet times Branch daily. ibuprofen 2018-08 Yes [id number] 600mg Take 1 [facility] 600 mg 1-03 tablet by [facility] of tablet 00:00: mouth [place] 00 every 6 Medical (six) Branch hours as needed for Pain (scale 1-3) or Pain (scale 4-6) (Pain). Take with food or milk. 2018-08 Yes [id number] 1{tbl} Take 1 [facility] vitamin 1-03 tablet by [facility] of w/FA tablet 00:00: mouth [place] 00 daily. Medical Branch docusate 2018-08 Yes [id number] 240mg Take 1 [facility] nivers calcium 240 1-03 capsule by [facility] mg capsule 00:00: mouth once [place] 00 daily as Medical needed for Branch Constipati on. ferrous 2018-08 Yes [id number] 325mg Take 1 Un alex sulfate 325 1-03 tablet by [facility] mg (65 mg 00:00: mouth 2 [place] iron) 00 (two) Medical tablet times Branch daily. ibuprofen 2018-08 Yes [id number] 600mg Take 1 [facility] 600 mg 1-03 tablet by [facility] of tablet 00:00: mouth [place] 00 every 6 Medical (six) Branch hours as needed for Pain (scale 1-3) or Pain (scale 4-6) (Pain). Take with food or milk. 2018-08 Yes [id number] 1{tbl} Take 1 [facility] vitamin 1-03 tablet by [facility] of w/FA tablet 00:00: mouth [place] 00 daily. Medical Branch docusate 2018-08 Yes [id number] 240mg Take 1 [facility] n[facility] calcium 240 1-03 capsule by [facility] mg capsule 00:00: mouth once [place] 00 daily as Medical needed for Branch Constipati on. ferrous 2018-08 Yes [id number] 325mg Take 1 [facility] alex sulfate 325 1-03 tablet by [facility] mg (65 mg 00:00: mouth 2 [place] iron) 00 (two) Medical tablet times Branch daily. ibuprofen 2018-08 Yes [id number] 600mg Take 1 [facility] 600 mg 1-03 tablet by [facility] of tablet 00:00: mouth [place] 00 every 6 Medical (six) Branch hours as needed for Pain (scale 1-3) or Pain (scale 4-6) (Pain). Take with food or milk. 2018-08 Yes [id number] 1{tbl} Take 1 [facility] vitamin 1-03 tablet by [facility] of w/FA tablet 00:00: mouth [place] 00 daily. Medical Branch docusate 2018-08 Yes [id number] 240mg Take 1 [facility] nivers calcium 240 1-03 capsule by [facility] mg capsule 00:00: mouth once [place] 00 daily as Medical needed for Branch Constipati on. ferrous 2018-08 Yes [id number] 325mg Take 1 Un alex sulfate 325 1-03 tablet by [facility] mg (65 mg 00:00: mouth 2 [place] iron) 00 (two) Medical tablet times Branch daily. ibuprofen 2018-08 Yes [id number] 600mg Take 1 [facility] 600 mg 1-03 tablet by [facility] of tablet 00:00: mouth [place] 00 every 6 Medical (six) Branch hours as needed for Pain (scale 1-3) or Pain (scale 4-6) (Pain). Take with food or milk. 2018-08 Yes [id number] 1{tbl} Take 1 [facility] vitamin 1-03 tablet by [facility] of w/FA tablet 00:00: mouth [place] 00 daily. Medical Branch docusate 2018-08 Yes [id number] 240mg Take 1 [facility] nivers calcium 240 1-03 capsule by [facility] mg capsule 00:00: mouth once [place] 00 daily as Medical needed for Branch Constipati on. ferrous 2018-08 Yes [id number] 325mg Take 1 Un alex sulfate 325 1-03 tablet by [facility] mg (65 mg 00:00: mouth 2 [place] iron) 00 (two) Medical tablet times Branch daily. ibuprofen 2018-08 Yes [id number] 600mg Take 1 [facility] 600 mg 1-03 tablet by [facility] of tablet 00:00: mouth [place] 00 every 6 Medical (six) Branch hours as needed for Pain (scale 1-3) or Pain (scale 4-6) (Pain). Take with food or milk. 2018-08 Yes [id number] 1{tbl} Take 1 [facility] vitamin 1-03 tablet by [facility] of w/FA tablet 00:00: mouth [place] 00 daily. Medical Branch docusate 2018-08 Yes [id number] 240mg Take 1 [facility] nivers calcium 240 1-03 capsule by [facility] of mg capsule 00:00: mouth once [place] 00 daily as Medical needed for Branch Constipati on. ferrous 2018-08 Yes [id number] 325mg Take 1 Un alex sulfate 325 1-03 tablet by [facility] mg (65 mg 00:00: mouth 2 [place] iron) 00 (two) Medical tablet times Branch daily. ibuprofen 2018-08 Yes [id number] 600mg Take 1 [facility] 600 mg 1-03 tablet by [facility] of tablet 00:00: mouth [place] 00 every 6 Medical (six) Branch hours as needed for Pain (scale 1-3) or Pain (scale 4-6) (Pain). Take with food or milk. 2018-08 Yes [id number] 1{tbl} Take 1 [facility] vitamin 1-03 tablet by [facility] of w/FA tablet 00:00: mouth [place] 00 daily. Medical Branch docusate 2018-08 Yes [id number] 240mg Take 1 [facility] nivers calcium 240 1-03 capsule by [facility] mg capsule 00:00: mouth once [place] 00 daily as Medical needed for Branch Constipati on. ferrous 2018-08 Yes [id number] 325mg Take 1 Un alex sulfate 325 1-03 tablet by [facility] mg (65 mg 00:00: mouth 2 [place] iron) 00 (two) Medical tablet times Branch daily. ibuprofen 2018-08 Yes [id number] 600mg Take 1 [facility] 600 mg 1-03 tablet by [facility] of tablet 00:00: mouth [place] 00 every 6 Medical (six) Branch hours as needed for Pain (scale 1-3) or Pain (scale 4-6) (Pain). Take with food or milk. 2018-08 Yes [id number] 1{tbl} Take 1 [facility] vitamin 1-03 tablet by [facility] of w/FA tablet 00:00: mouth [place] 00 daily. Medical Branch docusate 2018-08 Yes [id number] 240mg Take 1 [facility] nivers calcium 240 1-03 capsule by [facility] mg capsule 00:00: mouth once [place] 00 daily as Medical needed for Branch Constipati on. ferrous 2018-08 Yes [id number] 325mg Take 1 [facility] alex sulfate 325 1-03 tablet by [facility] mg (65 mg 00:00: mouth 2 [place] iron) 00 (two) Medical tablet times Branch daily. ibuprofen 2018-08 Yes [id number] 600mg Take 1 [facility] 600 mg 1-03 tablet by [facility] of tablet 00:00: mouth [place] 00 every 6 Medical (six) Branch hours as needed for Pain (scale 1-3) or Pain (scale 4-6) (Pain). Take with food or milk. 2018-08 Yes [id number] 1{tbl} Take 1 [facility] vitamin 1-03 tablet by [facility] of w/FA tablet 00:00: mouth [place] 00 daily. Medical Branch docusate 2018-08 Yes [id number] 240mg Take 1 [facility] nivers calcium 240 1-03 capsule by [facility] of mg capsule 00:00: mouth once [place] 00 daily as Medical needed for Branch Constipati on. ferrous 2018-08 Yes [id number] 325mg Take 1 Un alex sulfate 325 1-03 tablet by [facility] mg (65 mg 00:00: mouth 2 [place] iron) 00 (two) Medical tablet times Branch daily. ibuprofen 2018-08 Yes [id number] 600mg Take 1 [facility] 600 mg 1-03 tablet by [facility] of tablet 00:00: mouth [place] 00 every 6 Medical (six) Branch hours as needed for Pain (scale 1-3) or Pain (scale 4-6) (Pain). Take with food or milk. 2018-08 Yes [id number] 1{tbl} Take 1 [facility] vitamin 1-03 tablet by [facility] of w/FA tablet 00:00: mouth [place] 00 daily. Medical [facility] docusate 2018-08 Yes [id number] 240mg Take 1 [facility] nivers calcium 240 1-03 capsule by [facility] of mg capsule 00:00: mouth once [place] 00 daily as Medical needed for Branch Constipati on. ferrous 2018-08 Yes [id number] 325mg Take 1 [facility] alex sulfate 325 1-03 tablet by [facility] of mg (65 mg 00:00: mouth 2 [place] iron) 00 (two) Medical tablet times Branch daily. ibuprofen 2018-08 Yes [id number] 600mg Take 1 [facility] 600 mg 1-03 tablet by [facility] of tablet 00:00: mouth [place] 00 every 6 Medical (six) Branch hours as needed for Pain (scale 1-3) or Pain (scale 4-6) (Pain). Take with food or milk. 2018-08 Yes [id number] 1{tbl} Take 1 [facility] vitamin 1-03 tablet by [facility] of w/FA tablet 00:00: mouth [place] 00 daily. Medical Branch docusate 2018-08 Yes [id number] 240mg Take 1 [facility] nivers calcium 240 1-03 capsule by [facility] of mg capsule 00:00: mouth once [place] 00 daily as Medical needed for Branch Constipati on. ferrous 2018-08 Yes [id number] 325mg Take 1 Un alex sulfate 325 1-03 tablet by [facility] of mg (65 mg 00:00: mouth 2 [place] iron) 00 (two) Medical tablet times Branch daily. ibuprofen 2018-08 Yes [id number] 600mg Take 1 [facility] 600 mg 1-03 tablet by [facility] of tablet 00:00: mouth [place] 00 every 6 Medical (six) Branch hours as needed for Pain (scale 1-3) or Pain (scale 4-6) (Pain). Take with food or milk. 2018-08 Yes [id number] 1{tbl} Take 1 [facility] vitamin 1-03 tablet by [facility] of w/FA tablet 00:00: mouth [place] 00 daily. Medical Branch docusate 2018-08 Yes [id number] 240mg Take 1 [facility] nivers calcium 240 1-03 capsule by [facility] of mg capsule 00:00: mouth once [place] 00 daily as Medical needed for Branch Constipati on. ferrous 2018-08 Yes [id number] 325mg Take 1 Un alex sulfate 325 1-03 tablet by [facility] of mg (65 mg 00:00: mouth 2 [place] iron) 00 (two) Medical tablet times Branch daily. ibuprofen 2018-08 Yes [id number] 600mg Take 1 [facility] 600 mg 1-03 tablet by [facility] of tablet 00:00: mouth [place] 00 every 6 Medical (six) Branch hours as needed for Pain (scale 1-3) or Pain (scale 4-6) (Pain). Take with food or milk. 2018-08 Yes [id number] 1{tbl} Take 1 [facility] vitamin 1-03 tablet by [facility] of w/FA tablet 00:00: mouth [place] 00 daily. Medical Branch docusate 2018-08 Yes [id number] 240mg Take 1 [facility] nivers calcium 240 1-03 capsule by [facility] of mg capsule 00:00: mouth once [place] 00 daily as Medical needed for Branch Constipati on. ferrous 2018- Yes [id number] 325mg Take 1 Un alex sulfate 325 1-03 tablet by [facility] of mg (65 mg 00:00: mouth 2 [place] iron) 00 (two) Medical tablet times Branch daily. ibuprofen 2018- Yes [id number] 600mg Take 1 [facility] 600 mg 1-03 tablet by [facility] of tablet 00:00: mouth [place] 00 every 6 Medical (six) Branch hours as needed for Pain (scale 1-3) or Pain (scale 4-6) (Pain). Take with food or milk. ferrous 2018- Yes [id number] 325mg Take 1 Un alex sulfate 325 1-03 tablet by [facility] of mg (65 mg 00:00: mouth 2 [place] iron) 00 (two) Medical tablet times Branch daily. ferrous 2018-08 Yes [id number] 325mg Take 1 [facility] alex sulfate 325 1-03 tablet by [facility] of mg (65 mg 00:00: mouth 2 [place] iron) 00 (two) Medical tablet times Branch daily. ferrous 2018-08 Yes [id number] 325mg Take 1 [facility] alex sulfate 325 1-03 tablet by [facility] of mg (65 mg 00:00: mouth 2 [place] iron) 00 (two) Medical tablet times Branch daily. ferrous 2018- Yes [id number] 325mg Take 1 Un alex sulfate 325 1-03 tablet by [facility] of mg (65 mg 00:00: mouth 2 [place] iron) 00 (two) Medical tablet times Branch daily. 2018-08 Yes [id number] 1{tbl} Take 1 [facility] vitamin 1-03 tablet by [facility] of w/FA tablet 00:00: mouth [place] 00 daily. Medical Branch docusate 2018- Yes [id number] 240mg Take 1 [facility] nivers calcium 240 1-03 capsule by [facility] of mg capsule 00:00: mouth once [place] 00 daily as Medical needed for Branch Constipati on. ferrous 2018- Yes [id number] 325mg Take 1 Un alex sulfate 325 1-03 tablet by [facility] of mg (65 mg 00:00: mouth 2 [place] iron) 00 (two) Medical tablet times Branch daily. ibuprofen 2018- Yes [id number] 600mg Take 1 [facility] 600 mg 1-03 tablet by [facility] of tablet 00:00: mouth [place] 00 every 6 Medical (six) Branch hours as needed for Pain (scale 1-3) or Pain (scale 4-6) (Pain). Take with food or milk. 2018-08 Yes [id number] 1{tbl} Take 1 [facility] vitamin 1-03 tablet by [facility] of w/FA tablet 00:00: mouth [place] 00 daily. Medical Branch docusate 2018-08 Yes [id number] 240mg Take 1 [facility] nivers calcium 240 1-03 capsule by [facility] of mg capsule 00:00: mouth once [place] 00 daily as Medical needed for Branch Constipati on. ferrous 2018-08 Yes [id number] 325mg Take 1 Un alex sulfate 325 1-03 tablet by [facility] of mg (65 mg 00:00: mouth 2 [place] iron) 00 (two) Medical tablet times Branch daily. ibuprofen 2018-08 Yes [id number] 600mg Take 1 [facility] 600 mg 1-03 tablet by [facility] of tablet 00:00: mouth [place] 00 every 6 Medical (six) Branch hours as needed for Pain (scale 1-3) or Pain (scale 4-6) (Pain). Take with food or milk. 2018-08 Yes [id number] 1{tbl} Take 1 [facility] vitamin 1-03 tablet by [facility] of w/FA tablet 00:00: mouth [place] 00 daily. Medical Branch docusate 2018-08 Yes [id number] 240mg Take 1 [facility] nivers calcium 240 1-03 capsule by [facility] of mg capsule 00:00: mouth once [place] 00 daily as Medical needed for Branch Constipati on. ferrous 2018-08 Yes [id number] 325mg Take 1 Un alex sulfate 325 1-03 tablet by [facility] of mg (65 mg 00:00: mouth 2 [place] iron) 00 (two) Medical tablet times Branch daily. ibuprofen 2018-08 Yes [id number] 600mg Take 1 [facility] 600 mg 1-03 tablet by [facility] of tablet 00:00: mouth [place] 00 every 6 Medical (six) Branch hours as needed for Pain (scale 1-3) or Pain (scale 4-6) (Pain). Take with food or milk. 2018-08 Yes [id number] 1{tbl} Take 1 [facility] vitamin 1-03 tablet by [facility] of w/FA tablet 00:00: mouth [place] 00 daily. Medical Branch docusate 2018-08 Yes [id number] 240mg Take 1 [facility] nivers calcium 240 1-03 capsule by [facility] of mg capsule 00:00: mouth once [place] 00 daily as Medical needed for Branch Constipati on. ferrous 2018-08 Yes [id number] 325mg Take 1 Un alex sulfate 325 1-03 tablet by [facility] of mg (65 mg 00:00: mouth 2 [place] iron) 00 (two) Medical tablet times Branch daily. ibuprofen 2018-08 Yes [id number] 600mg Take 1 [facility] 600 mg 1-03 tablet by [facility] of tablet 00:00: mouth [place] 00 every 6 Medical (six) Branch hours as needed for Pain (scale 1-3) or Pain (scale 4-6) (Pain). Take with food or milk. 2018-08 Yes [id number] 1{tbl} Take 1 [facility] vitamin 1-03 tablet by [facility] of w/FA tablet 00:00: mouth [place] 00 daily. Medical [facility] docusate 2018-08 Yes [id number] 240mg Take 1 [facility] n[facility] calcium 240 1-03 capsule by [facility] of mg capsule 00:00: mouth once [place] 00 daily as Medical needed for Branch Constipati on. ferrous 2018-08 Yes [id number] 325mg Take 1 [facility] alex sulfate 325 1-03 tablet by [facility] of mg (65 mg 00:00: mouth 2 [place] iron) 00 (two) Medical tablet times Branch daily. ibuprofen 2018-08 Yes [id number] 600mg Take 1 [facility] 600 mg 1-03 tablet by [facility] of tablet 00:00: mouth [place] 00 every 6 Medical (six) Branch hours as needed for Pain (scale 1-3) or Pain (scale 4-6) (Pain). Take with food or milk. 2018-08 Yes [id number] 1{tbl} Take 1 [facility] vitamin 1-03 tablet by [facility] of w/FA tablet 00:00: mouth [place] 00 daily. Medical [facility] docusate 2018-08 Yes [id number] 240mg Take 1 [facility] n[facility] calcium 240 1-03 capsule by [facility] of mg capsule 00:00: mouth once [place] 00 daily as Medical needed for Branch Constipati on. ferrous 2018- Yes [id number] 325mg Take 1 Un alex sulfate 325 1-03 tablet by [facility] of mg (65 mg 00:00: mouth 2 [place] iron) 00 (two) Medical tablet times Branch daily. ibuprofen 2018-08 Yes [id number] 600mg Take 1 [facility] 600 mg 1-03 tablet by [facility] of tablet 00:00: mouth [place] 00 every 6 Medical (six) Branch hours as needed for Pain (scale 1-3) or Pain (scale 4-6) (Pain). Take with food or milk. 2018-08 Yes [id number] 1{tbl} Take 1 [facility] vitamin 1-03 tablet by [facility] of w/FA tablet 00:00: mouth [place] 00 daily. Medical [facility] docusate 2018-08 Yes [id number] 240mg Take 1 [facility] n[facility] calcium 240 1-03 capsule by [facility] of mg capsule 00:00: mouth once [place] 00 daily as Medical needed for Branch Constipati on. ferrous 2018-08 Yes [id number] 325mg Take 1 Un alex sulfate 325 1-03 tablet by [facility] of mg (65 mg 00:00: mouth 2 [place] iron) 00 (two) Medical tablet times Branch daily. ibuprofen 2018-08 Yes [id number] 600mg Take 1 [facility] 600 mg 1-03 tablet by [facility] of tablet 00:00: mouth [place] 00 every 6 Medical (six) Branch hours as needed for Pain (scale 1-3) or Pain (scale 4-6) (Pain). Take with food or milk. 2018-08 Yes [id number] 1{tbl} Take 1 [facility] vitamin 1-03 tablet by [facility] of w/FA tablet 00:00: mouth [place] 00 daily. Medical Branch docusate 2018-08 Yes [id number] 240mg Take 1 [facility] n[facility] calcium 240 1-03 capsule by [facility] of mg capsule 00:00: mouth once [place] 00 daily as Medical needed for Branch Constipati on. ferrous 2018-08 Yes [id number] 325mg Take 1 Un alex sulfate 325 1-03 tablet by [facility] of mg (65 mg 00:00: mouth 2 [place] iron) 00 (two) Medical tablet times Branch daily. ibuprofen 2018-08 Yes [id number] 600mg Take 1 [facility] 600 mg 1-03 tablet by [facility] of tablet 00:00: mouth [place] 00 every 6 Medical (six) Branch hours as needed for Pain (scale 1-3) or Pain (scale 4-6) (Pain). Take with food or milk. 2018-08 Yes [id number] 1{tbl} Take 1 [facility] vitamin 1-03 tablet by [facility] of w/FA tablet 00:00: mouth [place] 00 daily. Medical [facility] docusate 2018-08 Yes [id number] 240mg Take 1 [facility] n[facility] calcium 240 1-03 capsule by [facility] of mg capsule 00:00: mouth once [place] 00 daily as Medical needed for Branch Constipati on. ferrous 2018-08 Yes [id number] 325mg Take 1 Un alex sulfate 325 1-03 tablet by [facility] of mg (65 mg 00:00: mouth 2 [place] iron) 00 (two) Medical tablet times Branch daily. ibuprofen 2018-08 Yes [id number] 600mg Take 1 [facility] 600 mg 1-03 tablet by [facility] of tablet 00:00: mouth [place] 00 every 6 Medical (six) Branch hours as needed for Pain (scale 1-3) or Pain (scale 4-6) (Pain). Take with food or milk. 2018-08 Yes [id number] 1{tbl} Take 1 [facility] vitamin 1-03 tablet by [facility] of w/FA tablet 00:00: mouth [place] 00 daily. Medical [facility] docusate 2018-08 Yes [id number] 240mg Take 1 [facility] n[facility] calcium 240 1-03 capsule by [facility] of mg capsule 00:00: mouth once [place] 00 daily as Medical needed for Branch Constipati on. ferrous 2018-08 Yes [id number] 325mg Take 1 Un alex sulfate 325 1-03 tablet by [facility] of mg (65 mg 00:00: mouth 2 [place] iron) 00 (two) Medical tablet times Branch daily. ibuprofen 2018-08 Yes [id number] 600mg Take 1 [facility] 600 mg 1-03 tablet by [facility] of tablet 00:00: mouth [place] 00 every 6 Medical (six) Branch hours as needed for Pain (scale 1-3) or Pain (scale 4-6) (Pain). Take with food or milk. 2018-08 Yes [id number] 1{tbl} Take 1 [facility] vitamin 1-03 tablet by [facility] of w/FA tablet 00:00: mouth [place] 00 daily. Medical [facility] docusate 2018-08 Yes [id number] 240mg Take 1 [facility] n[facility] calcium 240 1-03 capsule by [facility] of mg capsule 00:00: mouth once [place] 00 daily as Medical needed for Branch Constipati on. ferrous 2018-08 Yes [id number] 325mg Take 1 [facility] alex sulfate 325 1-03 tablet by [facility] of mg (65 mg 00:00: mouth 2 [place] iron) 00 (two) Medical tablet times Branch daily. ibuprofen 2018-08 Yes [id number] 600mg Take 1 [facility] 600 mg 1-03 tablet by [facility] of tablet 00:00: mouth [place] 00 every 6 Medical (six) Branch hours as needed for Pain (scale 1-3) or Pain (scale 4-6) (Pain). Take with food or milk. 2018-08 Yes [id number] 1{tbl} Take 1 [facility] vitamin 1-03 tablet by [facility] of w/FA tablet 00:00: mouth [place] 00 daily. Medical [facility] docusate 2018-08 Yes [id number] 240mg Take 1 [facility] calcium 240 1-03 capsule by [facility] of mg capsule 00:00: mouth once [place] 00 daily as Medical needed for Branch Constipati on. ferrous 2018-08 Yes [id number] 325mg Take 1 [facility] alex sulfate 325 1-03 tablet by [facility] of mg (65 mg 00:00: mouth 2 [place] iron) 00 (two) Medical tablet times Branch daily. ibuprofen 2018-08 Yes [id number] 600mg Take 1 [facility] 600 mg 1-03 tablet by [facility] of tablet 00:00: mouth [place] 00 every 6 Medical (six) Branch hours as needed for Pain (scale 1-3) or Pain (scale 4-6) (Pain). Take with food or milk. 2018-08 Yes [id number] 1{tbl} Take 1 [facility] vitamin 1-03 tablet by [facility] of w/FA tablet 00:00: mouth [place] 00 daily. Medical [facility] docusate 2018-08 Yes [id number] 240mg Take 1 [facility] calcium 240 1-03 capsule by [facility] of mg capsule 00:00: mouth once [place] 00 daily as Medical needed for Branch Constipati on. ferrous 2018-08 Yes [id number] 325mg Take 1 [facility] alex sulfate 325 1-03 tablet by [facility] of mg (65 mg 00:00: mouth 2 [place] iron) 00 (two) Medical tablet times Branch daily. ibuprofen 2018-08 Yes [id number] 600mg Take 1 [facility] 600 mg 1-03 tablet by [facility] of tablet 00:00: mouth [place] 00 every 6 Medical (six) Branch hours as needed for Pain (scale 1-3) or Pain (scale 4-6) (Pain). Take with food or milk. 2018-08 Yes [id number] 1{tbl} Take 1 [facility] vitamin 1-03 tablet by [facility] of w/FA tablet 00:00: mouth [place] 00 daily. Medical [facility] docusate 2018-08 Yes [id number] 240mg Take 1 [facility] calcium 240 1-03 capsule by [facility] of mg capsule 00:00: mouth once [place] 00 daily as Medical needed for Branch Constipati on. ferrous 2018-08 Yes [id number] 325mg Take 1 [facility] alex sulfate 325 1-03 tablet by [facility] of mg (65 mg 00:00: mouth 2 [place] iron) 00 (two) Medical tablet times Branch daily. ibuprofen 2018-08 Yes [id number] 600mg Take 1 [facility] 600 mg 1-03 tablet by [facility] of tablet 00:00: mouth [place] 00 every 6 Medical (six) Branch hours as needed for Pain (scale 1-3) or Pain (scale 4-6) (Pain). Take with food or milk. 2018-08 Yes [id number] 1{tbl} Take 1 [facility] vitamin 1-03 tablet by [facility] of w/FA tablet 00:00: mouth [place] 00 daily. Medical [facility] docusate 2018-08 Yes [id number] 240mg Take 1 [facility] calcium 240 1-03 capsule by [facility] of mg capsule 00:00: mouth once [place] 00 daily as Medical needed for Branch Constipati on. ferrous 2018-08 Yes [id number] 325mg Take 1 [facility] alex sulfate 325 1-03 tablet by [facility] of mg (65 mg 00:00: mouth 2 [place] iron) 00 (two) Medical tablet times Branch daily. ibuprofen 2018-08 Yes [id number] 600mg Take 1 [facility] 600 mg 1-03 tablet by [facility] of tablet 00:00: mouth [place] 00 every 6 Medical (six) Branch hours as needed for Pain (scale 1-3) or Pain (scale 4-6) (Pain). Take with food or milk. 2018-08 Yes [id number] 1{tbl} Take 1 [facility] vitamin 1-03 tablet by [facility] of w/FA tablet 00:00: mouth [place] 00 daily. Medical [facility] docusate 2018-08 Yes [id number] 240mg Take 1 [facility] calcium 240 1-03 capsule by [facility] of mg capsule 00:00: mouth once [place] 00 daily as Medical needed for Branch Constipati on. ferrous 2018-08 Yes [id number] 325mg Take 1 [facility] alex sulfate 325 1-03 tablet by [facility] of mg (65 mg 00:00: mouth 2 [place] iron) 00 (two) Medical tablet times Branch daily. ibuprofen 2018-08 Yes [id number] 600mg Take 1 [facility] 600 mg 1-03 tablet by [facility] of tablet 00:00: mouth [place] 00 every 6 Medical (six) Branch hours as needed for Pain (scale 1-3) or Pain (scale 4-6) (Pain). Take with food or milk. 2018-08 Yes [id number] 1{tbl} Take 1 [facility] vitamin 1-03 tablet by [facility] of w/FA tablet 00:00: mouth [place] 00 daily. Medical [facility] docusate 2018-08 Yes [id number] 240mg Take 1 [facility] n[facility] calcium 240 1-03 capsule by [facility] y of mg capsule 00:00: mouth once [place] 00 daily as Medical needed for Branch Constipati on. ferrous 2018-08 Yes [id number] 325mg Take 1 Un alex sulfate 325 1-03 tablet by [facility] of mg (65 mg 00:00: mouth 2 [place] iron) 00 (two) Medical tablet times Branch daily. ibuprofen 2018-08 Yes [id number] 600mg Take 1 [facility] 600 mg 1-03 tablet by [facility] of tablet 00:00: mouth [place] 00 every 6 Medical (six) Branch hours as needed for Pain (scale 1-3) or Pain (scale 4-6) (Pain). Take with food or milk. 2018-08 Yes [id number] 1{tbl} Take 1 [facility] vitamin 1-03 tablet by [facility] of w/FA tablet 00:00: mouth [place] 00 daily. [facility] docusate 2018-08 Yes [id number] 240mg Take 1 [facility] calcium 240 1-03 capsule by [facility] of mg capsule 00:00: mouth once [place] 00 daily as Medical needed for Branch Constipati on. ferrous 2018-08 Yes [id number] 325mg Take 1 Un alex sulfate 325 1-03 tablet by [facility] of mg (65 mg 00:00: mouth 2 [place] iron) 00 (two) Medical tablet times Branch daily. ibuprofen 2018-08 Yes [id number] 600mg Take 1 [facility] 600 mg 1-03 tablet by ity of tablet 00:00: mouth [place] 00 every 6 Medical (six) Branch hours as needed for Pain (scale 1-3) or Pain (scale 4-6) (Pain). Take with food or milk. 2018-08 Yes [id number] 1{tbl} Take 1 [facility] vitamin 1-03 tablet by ity of w/FA tablet 00:00: mouth [place] 00 daily. Medical Branch docusate 2018-08 Yes [id number] 240mg Take 1 U nivers calcium 240 1-03 capsule by it y of mg capsule 00:00: mouth once [place] 00 daily as Medical needed for Branch Constipati on. ferrous 2018-08 Yes [id number] 325mg Take 1 Un alex sulfate 325 1-03 tablet by ity of mg (65 mg 00:00: mouth 2 [place] iron) 00 (two) Medical tablet times Branch daily. ibuprofen 2018-08 Yes [id number] 600mg Take 1 [facility] 600 mg 1-03 tablet by ity of tablet 00:00: mouth [place] 00 every 6 Medical (six) Branch hours as needed for Pain (scale 1-3) or Pain (scale 4-6) (Pain). Take with food or milk. 2018-08 Yes [id number] 1{tbl} Take 1 [facility] vitamin 1-03 tablet by ity of w/FA tablet 00:00: mouth [place] 00 daily. Medical Branch docusate 2018-08 Yes [id number] 240mg Take 1 U nivers calcium 240 1-03 capsule by it y of mg capsule 00:00: mouth once [place] 00 daily as Medical needed for Branch Constipati on. ferrous 2018-08 Yes [id number] 325mg Take 1 Un alex sulfate 325 1-03 tablet by ity of mg (65 mg 00:00: mouth 2 [place] iron) 00 (two) Medical tablet times Branch daily. ibuprofen 2018-08 Yes [id number] 600mg Take 1 [facility] 600 mg 1-03 tablet by ity of tablet 00:00: mouth [place] 00 every 6 Medical (six) Branch hours as needed for Pain (scale 1-3) or Pain (scale 4-6) (Pain). Take with food or milk. 2018-08 Yes [id number] 1{tbl} Take 1 [facility] vitamin 1-03 tablet by ity of w/FA tablet 00:00: mouth [place] 00 daily. Medical Branch docusate 2018-08 Yes [id number] 240mg Take 1 U nivers calcium 240 1-03 capsule by it y of mg capsule 00:00: mouth once [place] 00 daily as Medical needed for Branch Constipati on. ferrous 2018-08 Yes [id number] 325mg Take 1 Un alex sulfate 325 1-03 tablet by ity of mg (65 mg 00:00: mouth 2 [place] iron) 00 (two) Medical tablet times Branch daily. ibuprofen 2018-08 Yes [id number] 600mg Take 1 [facility] 600 mg 1-03 tablet by ity of tablet 00:00: mouth [place] 00 every 6 Medical (six) Branch hours as needed for Pain (scale 1-3) or Pain (scale 4-6) (Pain). Take with food or milk. 2018-08 Yes [id number] 1{tbl} Take 1 [facility] vitamin 1-03 tablet by ity of w/FA tablet 00:00: mouth [place] 00 daily. Medical Branch docusate 2018-08 Yes [id number] 240mg Take 1 U nivers calcium 240 1-03 capsule by it y of mg capsule 00:00: mouth once [place] 00 daily as Medical needed for Branch Constipati on. ferrous 2018-08 Yes [id number] 325mg Take 1 Un alex sulfate 325 1-03 tablet by ity of mg (65 mg 00:00: mouth 2 [place] iron) 00 (two) Medical tablet times Branch daily. 2018-08- No [id number] 1{tbl} Take 1 [facility] vitamin 1-03 08-18 tablet by ity of w/FA tablet 00:00: 00:[place] 00 :00 daily. Medical Branch docusate 2018-08- No [id number] 240mg Take 1 [facility] calcium 240 1-03 08-18 capsule by i ty of mg capsule 00:00: 00:00 mouth once [place] 00 :00 daily as Medical needed for Branch Constipati on. ibuprofen 2018-08- No [id number] 600mg Take 1 [facility] 600 mg 1-03 08-18 tablet by ity of tablet 00:00: 00:00 mouth [place] 00 :00 every 6 Medical (six) Branch hours as needed for Pain (scale 1-3) or Pain (scale 4-6) (Pain). Take with food or milk. fluconazole 2018- No [id number] 150mg Take 1 [facility] (DIFLUCAN) 9-10 09-11 tablet by ity of 150 mg 00:00: 04:59 mouth [place] tablet 00 :00 now for 1 Medical dose. Branch fluconazole 2019- No [id number] 150mg Take 1 [facility] (DIFLUCAN) 04-17 tablet by ity of 150 mg 00:00: 04:59 mouth [place] tablet 00 :00 now for 1 Medical dose. Branch fluconazole 2019- No [id number] 150mg Take 1 [facility] (DIFLUCAN) 04-17 tablet by ity of 150 mg 00:00: 04:59 mouth [place] tablet 00 :00 now for 1 Medical dose. Branch rho(D) 2019- No [id number] 300ug Unive rs immune 03-29 ity of globulin 19:30: 19:44 [place] (RHOGAM) 00 :00 Medical syringe 300 Branch mcg rho(D) 2018- No [id number] 300ug 300 mcg, U nivers immune 03-29 Intramuscu ity of globulin 19:30: 19:44 [place] (RHOGAM[place] 00 :00 1 dose, Medical syringe 300 [place] Branch mcg 03/29/19 at 1430, Routine fluconazole 2019- No [id number] 150mg Take 1 [facility] (DIFLUCAN) 03-2014 9107 tablet by ity of 150 mg 00:00: 04:59 mouth [place] tablet 00 :00 now for 1 Medical dose. Branch HYDROXYprog Yes 250mg Unive rs est(PF)(pre 8-06 ity of g presv) 15:51: [place] (HANS) 32 Medical 250 mg/mL Branch (1 mL) injection 250 mg HYDROXYprog 0 Yes 250mg Unive rs est(PF)(pre 8-06 ity of g presv) 15:51: [place] (HANS) 32 Medical 250 mg/mL Branch (1 mL) injection 250 mg HYDROXYprog 0 Yes 250mg 250 mg, Un alex est(PF)(pre 8-06 Intramuscu it y of g presv) 15:51: lar, [place] (HANS) 32 QWEEKLY, Medical 250 mg/mL First dose Bran ch (1 mL) on Tue injection 03/13/19 at 250 mg 1100, Until Discontinu ed, Routine HYDROXYprog Yes 250mg Unive rs est(PF)(pre 8-06 ity of g presv) 15:51: [place] ([facility]) 32 Medical 250 mg/mL Branch (1 mL) injection 250 mg HYDROXYprog 2019-0 Yes 250mg Unive rs est(PF)(pre 8-06 ity of g presv) 15:51: [place] ([facility]) 32 Medical 250 mg/mL Branch (1 mL) injection 250 mg HYDROXYprog 2019-0 Yes 250mg Unive rs est(PF)(pre 8-06 ity of g presv) 15:51: [place] ([facility]) 32 Medical 250 mg/mL Branch (1 mL) injection 250 mg HYDROXYprog 2019-0 Yes 250mg Unive rs est(PF)(pre 8-06 ity of g presv) 15:51: [place] (HANS) 32 Medical 250 mg/mL Branch (1 mL) injection 250 mg HYDROXYprog 2019-0 Yes 250mg Unive rs est(PF)(pre 8-06 ity of g presv) 15:51: [place] (HANS) 32 Medical 250 mg/mL Branch (1 mL) injection 250 mg HYDROXYprog 2019-0 Yes 250mg Unive rs est(PF)(pre 8-06 ity of g presv) 15:51: [place] ([facility]) 32 Medical 250 mg/mL Branch (1 mL) injection 250 mg HYDROXYprog 2019-0 Yes 250mg Unive rs est(PF)(pre 8-06 ity of g presv) 15:51: [place] ([facility]) 32 Medical 250 mg/mL Branch (1 mL) injection 250 mg HYDROXYprog 2019-0 Yes 250mg Unive rs est(PF)(pre 8-06 ity of g presv) 15:51: [place] (HANS) 32 Medical 250 mg/mL Branch (1 mL) injection 250 mg HYDROXYprog 2019-0 Yes 250mg Unive rs est(PF)(pre 8-06 ity of g presv) 15:51: [place] (HANS) 32 Medical 250 mg/mL Branch (1 mL) injection 250 mg HYDROXYprog 2019-0 Yes 250mg 250 mg, Un alex est(PF)(pre 8-06 Intramuscu it y of g presv) 15:51: lar, [place] (HANS) 32 QWEEKLY, Medical 250 mg/mL First dose Bran ch (1 mL) on Tue injection 03/13/19 at 250 mg 1100, Until Discontinu ed, Routine HYDROXYprog 2019-0 Yes 250mg Unive rs est(PF)(pre 8- ity of g presv) 15:51: [place] [address] Medical 250 mg/mL Branch (1 mL) injection 250 mg HYDROXYprog 2019-0 Yes 250mg 250 mg, Un alex est(PF)(pre 8- Intramuscu it y of g presv) 15:51: lar, [facility] 32 QWEEKLY, Medical 250 mg/mL First dose Bran ch (1 mL) on Tue injection 03/13/19 at 250 mg 1100, Until Discontinu ed, Routine HYDROXYprog 2019-0 Yes 250mg Unive rs est(PF)(pre 8- ity of g presv) 15:51: [place] [address] Medical 250 mg/mL Branch (1 mL) injection 250 mg HYDROXYprog 2019-0 Yes 250mg 250 mg, Un alex est(PF)(pre 8- Intramuscu it y of g presv) 15:51: lar [place] [address] QWEEKLY, Medical 250 mg/mL First dose Bran ch (1 mL) on Tue injection 03/13/19 at 250 mg 1100, Until Discontinu ed, Routine HYDROXYprog 2019-0 Yes 250mg Unive rs est(PF)(pre 8- ity of g presv) 15:51: [place] [address] Medical 250 mg/mL Branch (1 mL) injection 250 mg HYDROXYprog 2019-0 Yes 250mg 250 mg, Un alex est(PF)(pre 8- Intramuscu it y of g presv) 15:51: lar [facility] 32 QWEEKLY, Medical 250 mg/mL First dose Bran ch (1 mL) on Tue injection 03/13/19 at 250 mg 1100, Until Discontinu ed, Routine HYDROXYprog 2019-0 Yes 250mg Unive rs est(PF)(pre 8- ity of g presv) 15:51: [place] [address] Medical 250 mg/mL Branch (1 mL) injection 250 mg HYDROXYprog 2019-0 Yes 250mg 250 mg, Un alex est(PF)(pre 8- Intramuscu it y of g presv) 15:51: lar, [place] (HANS) 32 QWEEKLY, Medical 250 mg/mL First dose Bran ch (1 mL) on Tue injection 03/13/19 at 250 mg 1100, Until Discontinu ed, Routine HYDROXYprog 2019-0 Yes 250mg Unive rs est(PF)(pre 8-06 ity of g presv) 15:51: [place] (HANS) 32 Medical 250 mg/mL Branch (1 mL) injection 250 mg HYDROXYprog 2019-0 Yes 250mg 250 mg, Un alex est(PF)(pre 8-06 Intramuscu it y of g presv) 15:51: [facility], [place] (HANS) 32 QWEEKLY, Medical 250 mg/mL First dose Bran ch (1 mL) on Tue injection 03/13/19 at 250 mg 1100, Until Discontinu ed, Routine hydroxyprog 2019-0 Yes 275mg Unive rs esterone(PF 6-11 ity of ) (HANS 14:51: [place] AUTO-INJECT 12 Medical OR) 275 Branch mg/1.1 mL injection 275 mg hydroxyprog 2019-0 Yes 275mg Unive rs esterone(PF 6-11 ity of ) (HANS 14:51: [place] AUTO-INJECT 12 Medical OR) 275 Branch mg/1.1 mL injection 275 mg hydroxyprog 2019-0 Yes 275mg Unive rs esterone(PF 6-11 ity of ) (HANS 14:51: [place] AUTO-INJECT 12 Medical OR) 275 Branch mg/1.1 mL injection 275 mg hydroxyprog 2019-0 Yes 275mg Unive rs esterone(PF 6-11 ity of ) (HANS 14:51: [place] AUTO-INJECT 12 Medical OR) 275 Branch mg/1.1 mL injection 275 mg hydroxyprog 2019-0 Yes 275mg 275 mg, Un alex esterone(PF 6-11 Subcutaneo it y of ) (HANS 14:51: [place], [place] AUTO-INJECT 12 QWEEKLY, Medi carlos OR) 275 First dose Branch mg/1.1 mL on Tue injection 01/16/19 at 275 mg 1000, Until Discontinu ed, Routine hydroxyprog 2019-0 Yes 275mg Unive rs esterone(PF 6-11 ity of ) (HANS 14:51: [place] AUTO-INJECT 12 Medical OR) 275 Branch mg/1.1 [...] injection 275 mg PNV 67-iron 2019-0 Yes [id number] 1{each} Take 1 Univers ps-folate 3-15 Each by ity of no.1-dha 00:00: mouth [place] (VITAFOL 00 daily. Medical ULTRA) 29 Branch mg iron- 1 mg-200 mg Cap PNV 67-iron 2018- Yes [id number] 1{each} Take 1 Univers ps-folate 3-15 Each by ity of no.1-dha 00:00: mouth [place] (VITAFOL 00 daily. Medical ULTRA) 29 Branch mg iron- 1 mg-200 mg Cap PNV 67-iron 2018- Yes [id number] 1{each} Take 1 [facility] ps-folate 3-15 Each by ity of no.1-dha 00:00: mouth [place] (VITAFOL 00 daily. Medical ULTRA) 29 Branch mg iron- 1 mg-200 mg Cap PNV 67-iron 2018- Yes [id number] 1{each} Take 1 Univers ps-folate 3-15 Each by ity of no.1-dha 00:00: mouth [place] (VITAFOL 00 daily. Medical ULTRA) 29 Branch mg iron- 1 mg-200 mg Cap PNV 67-iron 2019-0 Yes [id number] 1{each} Take 1 Univers ps-folate 3-15 Each by ity of no.1-dha 00:00: mouth [place] (VITAFOL 00 daily. Medical ULTRA) 29 Branch mg iron- 1 mg-200 mg Cap PNV 67-iron 2019-0 Yes [id number] 1{each} Take 1 Univers ps-folate 3-15 Each by ity of no.1-dha 00:00: mouth [place] (VITAFOL 00 daily. Medical ULTRA) 29 Branch mg iron- 1 mg-200 mg Cap PNV 67-iron 2019-0 Yes [id number] 1{each} Take 1 [facility] ps-folate 3-15 Each by ity of no.1-dha 00:00: mouth [place] (VITAFOL 00 daily. Medical ULTRA) 29 Branch mg iron- 1 mg-200 mg Cap PNV 67-iron 2019-0 Yes [id number] 1{each} Take 1 Univers ps-folate 3-15 Each by ity of no.1-dha 00:00: mouth [place] (VITAFOL 00 daily. Medical ULTRA) 29 Branch mg iron- 1 mg-200 mg Cap PNV 67-iron 2019-0 Yes [id number] 1{each} Take 1 Univers ps-folate 3-15 Each by ity of no.1-dha 00:00: mouth [place] (VITAFOL 00 daily. Medical ULTRA) 29 Branch mg iron- 1 mg-200 mg Cap PNV 67-iron 2019 Yes [id number] 1{each} Take 1 Univers ps-folate 3-15 Each by ity of no.1-dha 00:00: mouth [place] (VITAFOL 00 daily. Medical ULTRA) 29 Branch mg iron- 1 mg-200 mg Cap PNV 67-iron 2019-0 Yes [id number] 1{each} Take 1 Univers ps-folate 3-15 Each by ity of no.1-dha 00:00: mouth [place] (VITAFOL 00 daily. Medical ULTRA) 29 Branch mg iron- 1 mg-200 mg Cap PNV 67-iron 2019- Yes [id number] 1{each} Take 1 Univers ps-folate 3-15 Each by ity of no.1-dha 00:00: mouth [place] (VITAFOL 00 daily. Medical ULTRA) 29 Branch mg iron- 1 mg-200 mg Cap PNV 67-iron 2019-0 Yes [id number] 1{each} Take 1 Univers ps-folate 3-15 Each by ity of no.1-dha 00:00: mouth [place] (VITAFOL 00 daily. Medical ULTRA) 29 Branch mg iron- 1 mg-200 mg Cap PNV 67-iron 2019-0 Yes [id number] 1{each} Take 1 Univers ps-folate 3-15 Each by ity of no.1-dha 00:00: mouth [place] (VITAFOL 00 daily. Medical ULTRA) 29 Branch mg iron- 1 mg-200 mg Cap PNV 67-iron Yes [id number] 1{each} Take 1 [facility] ps-folate 3-15 Each by ity of no.1-dha 00:00: mouth [place] (VITAFOL 00 daily. Medical ULTRA) 29 Branch mg iron- 1 mg-200 mg Cap PNV 67-iron Yes [id number] 1{each} Take 1 Univers ps-folate 3-15 Each by ity of no.1-dha 00:00: mouth [place] (VITAFOL 00 daily. Medical ULTRA) 29 Branch mg iron- 1 mg-200 mg Cap PNV 67-iron Yes [id number] 1{each} Take 1 Univers ps-folate 3-15 Each by ity of no.1-dha 00:00: mouth [place] (VITAFOL 00 daily. Medical ULTRA) 29 Branch mg iron- 1 mg-200 mg Cap PNV 67-iron Yes [id number] 1{each} Take 1 [facility] ps-folate 3-15 Each by ity of no.1-dha 00:00: mouth [place] (VITAFOL 00 daily. Medical ULTRA) 29 Branch mg iron- 1 mg-200 mg Cap PNV 67-iron Yes [id number] 1{each} Take 1 Univers ps-folate 3-15 Each by ity of no.1-dha 00:00: mouth [place] (VITAFOL 00 daily. Medical ULTRA) 29 Branch mg iron- 1 mg-200 mg Cap PNV 67-iron Yes [id number] 1{each} Take 1 Univers ps-folate 3-15 Each by ity of no.1-dha 00:00: mouth [place] (VITAFOL 00 daily. Medical ULTRA) 29 Branch mg iron- 1 mg-200 mg Cap PNV 67-iron Yes [id number] 1{each} Take 1 Univers ps-folate 3-15 Each by ity of no.1-dha 00:00: mouth [place] (VITAFOL 00 daily. Medical ULTRA) 29 Branch mg iron- 1 mg-200 mg Cap hydroxyprog 2019- No [id number] 250mg 1 mL by Univers est,PF,,pre 3-15 - Intramuscu i ty of g presv, 00:00: 04:59 [place] 250 mg/mL 00 :00 weekly for Medi carlos (1 mL) 22 doses. Branch injection hydroxyprog 2019- No [id number] 250mg 1 mL by Univers est,PF,,pre 10-20 Intramuscu i ty of g presv, 00:00: 04:59 [place] route [place] 250 mg/mL 00 :00 weekly for Medi carlos (1 mL) 22 doses. Branch injection hydroxyprog 2018- No [id number] 250mg 1 mL by Univers est,PF,,pre 10-20 Intramuscu i ty of g presv, 00:00: 04:59 [place] 250 mg/mL 00 :00 weekly for Medi carlos (1 mL) 22 doses. Branch injection hydroxyprog 2018- No [id number] 250mg 1 mL by Univers est,PF,,pre 10-20 Intramuscu i ty of g presv, 00:00: 04:59 [place] route [place] 250 mg/mL 00 :00 weekly for Medi carlos (1 mL) 22 doses. Branch injection hydroxyprog 2019- No [id number] 250mg 1 mL by Univers est,PF,,pre 10-20 Intramuscu i ty of g presv, 00:00: 04:59 [place] route [place] 250 mg/mL 00 :00 weekly for Medi carlos (1 mL) 22 doses. Branch injection ascorbic 2018- Yes 500mg Take 1 Univer [...] (three) Medical tablet times Branch daily. docusate 2017-08 [...] tablet times Branch daily. PNV 67-iron Yes [id number] 1{each} Take 1 Univers ps-folate 4-17 Each by ity of no.1-dha 00:00: mouth [place] (VITAFOL 00 daily. Medical ULTRA) 29 Branch mg iron- 1 mg-200 mg Cap PNV 67-iron Yes [id number] 1{each} Take 1 Univers ps-folate 4-17 Each by ity of no.1-dha 00:00: mouth [place] (VITAFOL 00 daily. Medical ULTRA) 29 Branch mg iron- 1 mg-200 mg Cap PNV 67-iron Yes [id number] 1{each} Take 1 Univers ps-folate 4-17 Each by ity of no.1-dha 00:00: mouth [place] (VITAFOL 00 daily. Medical ULTRA) 29 Branch mg iron- 1 mg-200 mg Cap PNV 67-iron Yes [id number] 1{each} Take 1 Univers ps-folate 4-17 Each by ity of no.1-dha 00:00: mouth [place] (VITAFOL 00 daily. Medical ULTRA) 29 Branch mg iron- 1 mg-200 mg Cap PNV 67-iron Yes [id number] 1{each} Take 1 Univers ps-folate 4-17 Each by ity of no.1-dha 00:00: mouth [place] (VITAFOL 00 daily. Medical ULTRA) 29 Branch mg iron- 1 mg-200 mg Cap PNV 67-iron Yes [id number] 1{each} Take 1 Univers ps-folate 4-17 Each by ity of no.1-dha 00:00: mouth [place] (VITAFOL 00 daily. Medical ULTRA) 29 Branch mg iron- 1 mg-200 mg Cap PNV 67-iron 2017- Yes [id number] 1{each} Take 1 Univers ps-folate 4-17 Each by ity of no.1-dha 00:00: mouth [place] (VITAFOL 00 daily. Medical ULTRA) 29 Branch mg iron- 1 mg-200 mg Cap PNV 67-iron 2017- Yes [id number] 1{each} Take 1 Univers ps-folate 4-17 Each by ity of no.1-dha 00:00: mouth [place] (VITAFOL 00 daily. Medical ULTRA) 29 Branch mg iron- 1 mg-200 mg Cap PNV 67-iron 2018-0 Yes [id number] 1{each} Take 1 Univers ps-folate 4-17 Each by ity of no.1-dha 00:00: mouth [place] (VITAFOL 00 daily. Medical ULTRA) 29 Branch mg iron- 1 mg-200 mg Cap PNV 67-iron 2018-0 Yes [id number] 1{each} Take 1 Univers ps-folate 4-17 Each by ity of no.1-dha 00:00: mouth [place] (VITAFOL 00 daily. Medical ULTRA) 29 Branch mg iron- 1 mg-200 mg Cap PNV 67-iron 2017-0 Yes [id number] 1{each} Take 1 Univers ps-folate 4-17 Each by ity of no.1-dha 00:00: mouth [place] (VITAFOL 00 daily. Medical ULTRA) 29 Branch mg iron- 1 mg-200 mg Cap PNV 67-iron 2017-0 Yes [id number] 1{each} Take 1 Univers ps-folate 4-17 Each by ity of no.1-dha 00:00: mouth [place] (VITAFOL 00 daily. Medical ULTRA) 29 Branch mg iron- 1 mg-200 mg Cap PNV 67-iron 2017-0 Yes [id number] 1{each} Take 1 Univers ps-folate 4-17 Each by ity of no.1-dha 00:00: mouth [place] (VITAFOL 00 daily. Medical ULTRA) 29 Branch mg iron- 1 mg-200 mg Cap PNV 67-iron 2017-0 Yes [id number] 1{each} Take 1 Univers ps-folate 4-17 Each by ity of no.1-dha 00:00: mouth [place] (VITAFOL 00 daily. Medical ULTRA) 29 Branch mg iron- 1 mg-200 mg Cap PNV 67-iron 2018-0 Yes [id number] 1{each} Take 1 Univers ps-folate 4-17 Each by ity of no.1-dha 00:00: mouth [place] (VITAFOL 00 daily. Medical ULTRA) 29 Branch mg iron- 1 mg-200 mg Cap PNV 67-iron 2018-0 Yes [id number] 1{each} Take 1 Univers ps-folate 4-17 Each by ity of no.1-dha 00:00: mouth [place] (VITAFOL 00 daily. Medical ULTRA) 29 Branch mg iron- 1 mg-200 mg Cap PNV 67-iron 2018-0 Yes [id number] 1{each} Take 1 Univers ps-folate 4-17 Each by ity of no.1-dha 00:00: mouth [place] (VITAFOL 00 daily. Medical ULTRA) 29 Branch mg iron- 1 mg-200 mg Cap PNV 67-iron 2018-0 Yes [id number] 1{each} Take 1 Univers ps-folate 4-17 Each by ity of no.1-dha 00:00: mouth [place] (VITAFOL 00 daily. Medical ULTRA) 29 Branch mg iron- 1 mg-200 mg Cap PNV 67-iron 2017-0 Yes [id number] 1{each} Take 1 Univers ps-folate 4-17 Each by ity of no.1-dha 00:00: mouth [place] (VITAFOL 00 daily. Medical ULTRA) 29 Branch mg iron- 1 mg-200 mg Cap PNV 67-iron 0 Yes [id number] 1{each} Take 1 Univers ps-folate 4-17 Each by ity of no.1-dha 00:00: mouth [place] (VITAFOL 00 daily. Medical ULTRA) 29 Branch mg iron- 1 mg-200 mg Cap PNV 67-iron 2017-0 Yes [id number] 1{each} Take 1 Univers ps-folate 4-17 Each by ity of no.1-dha 00:00: mouth [place] (VITAFOL 00 daily. Medical ULTRA) 29 Branch mg iron- 1 mg-200 mg Cap Immunizations Ordered Filled Immunization Date Status Comments [facility] e Immunization Name Name HPV9 2021-04-09 Completed University of 00:00:00 [facility] HPV9 2021-04-09 Completed University of 00:00:00 [facility] HPV9 2021-04-09 Completed University of 00:00:00 [facility] HPV9 2021-04-09 Completed University of 00:00:00 [facility] HPV9 2021-04-09 Completed University of 00:00:00 [facility] HPV9 2021-04-09 Completed University of 00:00:00 [facility] HPV9 2021-04-09 Completed University of 00:00:00 [facility] HPV9 2021-04-09 Completed University of 00:00:00 [facility] Rho (d) Immune 2021-01-28 Completed University of Globulin 00:00:00 [facility] TDAP 2021-01-28 Completed University of 00:00:00 [facility] Rho (d) Immune 2021-01-28 Completed University of Globulin 00:00:00 [facility] TDAP 2021-01-28 Completed University of 00:00:00 [facility] Rho (d) Immune 2021-01-28 Completed University of Globulin 00:00:00 [facility] TDAP 2021-01-28 Completed University of 00:00:00 [facility] Rho (d) Immune 2021-01-28 Completed University of Globulin 00:00:00 [facility] TDAP 2021-01-28 Completed University of 00:00:00 [facility] Rho (d) Immune 2021-01-28 Completed University of Globulin 00:00:00 [facility] TDAP 2021-01-28 Completed University of 00:00:00 [facility] Rho (d) Immune 2021-01-28 Completed University of Globulin 00:00:00 [facility] TDAP 2021-01-28 Completed University of 00:00:00 [facility] Rho (d) Immune 2021-01-28 Completed University of Globulin 00:00:00 [facility] TDAP 2021-01-28 Completed University of 00:00:00 [facility] Rho (d) Immune 2021-01-28 Completed University of Globulin 00:00:00 [facility] TDAP 2021-01-28 Completed University of 00:00:00 [facility] Rho (d) Immune 2021-01-28 Completed University of Globulin 00:00:00 [facility] TDAP 2021-01-28 Completed University of 00:00:00 [facility] Rho (d) Immune 2021-01-28 Completed University of Globulin 00:00:00 [facility] TDAP 2021-01-28 Completed University of 00:00:00 [facility] Rho (d) Immune 2021-01-28 Completed University of Globulin 00:00:00 [facility] TDAP 2021-01-28 Completed University of 00:00:00 [facility] Rho (d) Immune 2021-01-28 Completed University of Globulin 00:00:00 [facility] TDAP 2021-01-28 Completed University of 00:00:00 [facility] Rho (d) Immune 2021-01-28 Completed University of Globulin 00:00:00 [facility] TDAP 2021-01-28 Completed University of 00:00:00 [facility] Rho (d) Immune 2021-01-28 Completed University of Globulin 00:00:00 [facility] TDAP 2021-01-28 Completed University of 00:00:00 [facility] Rho (d) Immune 2021-01-28 Completed University of Globulin 00:00:00 [facility] TDAP 2021-01-28 Completed University of 00:00:00 [facility] Rho (d) Immune 2021-01-28 Completed University of Globulin 00:00:00 [facility] TDAP 2021-01-28 Completed University of 00:00:00 [facility] Rho (d) Immune 2021-01-28 Completed University of Globulin 00:00:00 [facility] TDAP 2021-01-28 Completed University of 00:00:00 [facility] Rho (d) Immune 2021-01-28 Completed University of Globulin 00:00:00 [facility] TDAP 2021-01-28 Completed University of 00:00:00 [facility] Rho (d) Immune 2021-01-28 Completed University of Globulin 00:00:00 [facility] TDAP 2021-01-28 Completed University of 00:00:00 [facility] Influenza Virus 2020-06-04 Completed Universit y of Vaccine Quad .5 mL 00:00:00 [facility] IM 6+ MO Branch Influenza Virus 2020-06-04 Completed Universit y of Vaccine [place] .5 mL 00:00:00 [facility] IM 6+ MO Branch Influenza Virus 2020-06-04 Completed Universit y of Vaccine [place] .5 mL 00:00:00 [place] [facility] IM 6+ MO Branch Influenza Virus 2020-06-04 Completed Universit y of Vaccine Quad .5 mL 00:00:00 [place] [facility] IM 6+ MO Branch Influenza Virus 2020-06-04 Completed Universit y of Vaccine Quad .5 mL 00:00:00 [place] [facility] IM 6+ MO Branch Influenza Virus 2020-06-04 Completed Universit y of Vaccine Quad .5 mL 00:00:00 [place] [facility] IM 6+ MO Branch Influenza Virus [...] 00:00:00 [place] [facility] IM 6+ MO Branch HPV9 2019-09-18 Completed University of 00:00:00 [place] [facility] HPV9 2019-09-18 Completed University of 00:00:00 [facility] [place] HPV9 2019-09-18 Completed University of 00:00:00 [facility] [place] HPV9 2019-09-18 Completed University of 00:00:00 [place] [...] Branch HPV9 2019-09-18 Completed University of 00:00:00 [place] [facility] HPV9 2019-09-18 Completed University of [...] Branch HPV9 2019-09-18 Completed University of 00:00:00 [facility] HPV9 2019-09-18 Completed University of 00:00:00 [facility] Rho (d) Immune 2019-06-10 Completed University of Globulin 00:00:00 [facility] Branch Rho (d) Immune 2019-06-10 Completed University of Globulin 00:00:00 [facility] Rho (d) Immune 2019-06-10 Completed University of Globulin 00:00:00 [facility] Branch Rho (d) Immune 2019-06-10 Completed [facility] 00:[facility]:00 [facility] Rho (d) Immune 2019-06-10 Completed [facility] 00:00:00 [facility] Rho (d) Immune 2019-06-10 Completed [facility] 00[facility]00:00 [facility] Rho (d) Immune 2019-06-10 Completed [facility] 00:00:00 [facility] Rho (d) Immune 2019-06-10 Completed [facility] 00:00:00 [facility] Rho (d) Immune 2019-06-10 Completed [facility] 00:00:00 [facility] Rho (d) Immune 2019-06-10 Completed [facility] 00:00:00 [facility] Rho (d) Immune 2019-06-10 Completed [facility] 00:00:00 [facility] Rho (d) Immune 2019-06-10 Completed [facility] 00:00:00 [facility] Rho (d) Immune 2019-06-10 Completed [facility] 00:00:00 [facility] Rho (d) Immune 2019-06-10 Completed [facility] 00:00:00 [facility] Rho (d) Immune 2019-06-10 Completed [facility] 00:00:00 [facility] Rho (d) Immune 2019-06-10 Completed [facility] 00:00:00 [facility] Rho (d) Immune 2019-06-10 Completed [facility] 00:00:00 [facility] Rho (d) Immune 2019-06-10 Completed [facility] 00:00:00 [facility] Rho (d) Immune 2019-06-10 Completed [facility] 00:00:00 [facility] Rho (d) Immune 2019-06-10 Completed [facility] 00:00:00 [facility] Rho (d) Immune 2019-06-10 Completed [facility] 00:00:00 [facility] Rho (d) Immune 2019-06-10 Completed [facility] 00:00:00 [facility] Rho (d) Immune 2019-06-10 Completed [facility] 00:00:00 [facility] Rho (d) Immune 2019-06-10 Completed [facility] 00:00:00 [facility] Rho (d) Immune 2019-06-10 Completed [facility] 00:00:00 [facility] Rho (d) Immune 2019-06-10 Completed [facility] 00:00:00 [facility] Rho (d) Immune 2019-06-10 Completed [facility] 00:00:00 [facility] Rho (d) Immune 2019-06-10 Completed [facility] 00:00:00 [facility] Rho (d) Immune 2019-06-10 Completed [facility] 00:00:00 [facility] Rho (d) Immune 2019-06-10 Completed [facility] 00:00:00 [facility] Rho (d) Immune 2019-06-10 Completed [facility] 00:00:00 [facility] Rho (d) Immune 2019-06-10 Completed [facility] 00:00:00 [facility] Rho (d) Immune 2019-06-10 Completed [facility] 00:00:00 [facility] Rho (d) Immune 2019-06-10 Completed [facility] 00:00:00 [facility] Rho (d) Immune 2019-06-10 Completed [facility] 00:00:00 [facility] Rho (d) Immune 2019-06-10 Completed [facility] 00:00:00 [facility] Rho (d) Immune 2019-06-10 Completed [facility] 00[facility]00:00 [facility] Rho (d) Immune 2019-06-10 Completed [facility] 00:00:00 [facility] Rho (d) Immune 2019-06-10 Completed [facility] 00:00:00 [facility] Rho (d) Immune 2019-06-10 Completed [facility] 00:00:00 [facility] Rho (d) Immune 2019-06-10 Completed [facility] 00:00:00 [facility] Rho (d) Immune 2019-06-10 Completed [facility] 00:00:00 [facility] Rho (d) Immune 2019-06-10 Completed [facility] 00:00:00 [facility] Rho (d) Immune 2019-06-10 Completed [facility] 00:00:00 [facility] Rho (d) Immune 2019-06-10 Completed [facility] 00:00:00 [facility] Rho (d) Immune 2019-06-10 Completed [facility] 00:00:00 [facility] Rho (d) Immune 2019-06-10 Completed [facility] 00:00:00 [facility] Rho (d) Immune 2019-06-10 Completed [facility] 00:00:00 [facility] Rho (d) Immune 2019-06-10 Completed [facility] 00:00:00 [facility] Rho (d) Immune 2019-06-10 Completed [facility] 00:00:00 [facility] Rho (d) Immune 2019-06-10 Completed [facility] 00:00:00 [facility] Rho (d) Immune 2019-06-10 Completed [facility] 00:00:00 [facility] Rho (d) Immune 2019-06-10 Completed [facility] 00:00:00 [facility] Rho (d) Immune 2019-06-10 Completed [facility] 00:00:00 [facility] Rho (d) Immune 2019-06-10 Completed [facility] 00:00:00 [facility] Rho (d) Immune 2019-06-10 Completed [facility] 00:00:00 [facility] Rho (d) Immune 2019-06-10 Completed [facility] 00:00:00 [facility] Rho (d) Immune 2019-06-10 Completed [facility] 00:00:00 [facility] Rho (d) Immune 2019-06-10 Completed [facility] 00:00:00 [facility] Rho (d) Immune 2019-06-10 Completed [facility] 00:00:00 [facility] Rho (d) Immune 2019-06-10 Completed [facility] 00:00:00 [facility] Rho (d) Immune 2019-06-10 Completed [facility] 00:00:00 [facility] Rho (d) Immune 2019-06-10 Completed [facility] 00:00:00 [facility] Rho (d) Immune 2019-06-10 Completed [facility] 00:00:00 [facility] Rho (d) Immune 2019-06-10 Completed [facility] 00:00:00 [facility] Rho (d) Immune 2019-06-10 Completed [facility] 00:00:00 [facility] Rho (d) Immune 2019-06-10 Completed [facility] 00:00:00 [facility] Rho (d) Immune 2019-06-10 Completed [facility] 00:00:00 [facility] Rho (d) Immune 2019-06-10 Completed [facility] 00:00:00 [facility] Rho (d) Immune 2019-06-10 Completed [facility] 00:00:00 [facility] Rho (d) Immune 2019-06-10 Completed [facility] 00:00:00 [facility] Rho (d) Immune 2019-06-10 Completed [facility] 00:00:00 [facility] Rho (d) Immune 2019-06-10 Completed [facility] 00:00:00 [facility] Rho (d) Immune 2019-06-10 Completed [facility] 00:00:00 [facility] Rho (d) Immune 2019-06-10 Completed [facility] 00:00:00 [facility] Rho (d) Immune 2019-06-10 Completed [facility] 00:00:00 [facility] Rho (d) Immune 2019-06-10 Completed [facility] 00:00:00 [facility] Rho (d) Immune 2019-06-10 Completed [facility] 00:00:00 [facility] Rho (d) Immune 2019-06-10 Completed [facility] 00:00:00 [facility] Rho (d) Immune 2019-06-10 Completed [facility] 00:00:00 [facility] Rho (d) Immune 2019-06-10 Completed [facility] 00:00:00 [facility] Rho (d) Immune 2019-06-10 Completed [facility] 00:00:00 [facility] Rho (d) Immune 2019-06-10 Completed [facility] 00:00:00 [facility] Rho (d) Immune 2019-06-10 Completed [facility] 00:00:00 [facility] Rho (d) Immune 2019-06-10 Completed [facility] 00:00:00 [facility] Rho (d) Immune 2019-06-10 Completed [facility] 00:00:00 [facility] Rho (d) Immune 2019-06-10 Completed [facility] 00:00:00 [facility] Branch Rho (d) Immune 2019-06-10 Completed [facility] 00:00:00 [facility] Rho (d) Immune 2019-06-10 Completed [facility] 00:00:00 [facility] Tdap 2019-03-29 Completed [facility] of 00:00:00 [facility] Rho (d) Immune 2019-03-29 Completed [facility] 00:00:00 [facility] Tdap 2019-03-29 Completed [facility] of 00:00:00 [facility] Branch Rho (d) Immune 2019-03-29 Completed [facility] 00:00:00 [facility] Tdap 2019-03-29 Completed [facility] of 00:00:00 [facility] Branch Rho (d) Immune 2019-03-29 Completed [facility] 00:00:00 [facility] Tdap 2019-03-29 Completed [facility] of 00:00:00 [facility] Rho (d) Immune 2019-03-29 Completed [facility] 00:00:00 [facility] Tdap 2019-03-29 Completed [facility] of 00:00:00 [facility] Rho (d) Immune 2019-03-29 Completed [facility] 00:00:00 [facility] Tdap 2019-03-29 Completed [facility] of 00:00:00 [facility] Rho (d) Immune 2019-03-29 Completed [facility] 00:00:00 [facility] Tdap 2019-03-29 Completed [facility] of 00:00:00 [facility] Rho (d) Immune 2019-03-29 Completed [facility] 00:00:00 [facility] Tdap 2019-03-29 Completed [facility] of 00:00:00 [facility] Rho (d) Immune 2019-03-29 Completed [facility] 00:00:00 [facility] Tdap 2019-03-29 Completed [facility] of 00:00:00 [facility] Rho (d) Immune 2019-03-29 Completed [facility] 00:00:00 [facility] Tdap 2019-03-29 Completed [facility] of 00:00:00 [facility] Rho (d) Immune 2019-03-29 Completed [facility] 00:00:00 [facility] Tdap 2019-03-29 Completed [facility] of 00:00:00 [facility] Rho (d) Immune 2019-03-29 Completed [facility] 00:00:00 [facility] Tdap 2019-03-29 Completed [facility] of 00:00:00 [facility] Branch Rho (d) Immune 2019-03-29 Completed [facility] 00:00:00 [facility] Tdap 2019-03-29 Completed [facility] of 00:00:00 [facility] Branch Rho (d) Immune 2019-03-29 Completed [facility] 00:00:00 [facility] TDAP 2019-03-29 Completed [facility] of 00:00:00 [facility] Rho (d) Immune 2019-03-29 Completed [facility] 00:00:00 [facility] TDAP 2019-03-29 Completed [facility] of 00:00:00 [facility] Branch Rho (d) Immune 2019-03-29 Completed [facility] 00:00:00 [facility] TDAP 2019-03-29 Completed [facility] of 00:00:00 [facility] Branch Rho (d) Immune 2019-03-29 Completed [facility] 00:00:00 [facility] TDAP 2019-03-29 Completed [facility] of 00:00:00 [facility] Rho (d) Immune 2019-03-29 Completed [facility] 00:00:00 [facility] TDAP 2019-03-29 Completed [facility] of 00:00:00 [facility] Rho (d) Immune 2019-03-29 Completed [facility] 00:00:00 [facility] TDAP 2019-03-29 Completed [facility] of 00:00:00 [facility] Rho (d) Immune 2019-03-29 Completed [facility] 00:00:00 [facility] TDAP 2019-03-29 Completed [facility] of 00:00:00 [facility] Rho (d) Immune 2019-03-29 Completed [facility] 00:00:00 [facility] TDAP 2019-03-29 Completed University of 00:00:00 [facility] Rho (d) Immune 2019-03-29 Completed [facility] 00:00:00 [facility] TDAP 2019-03-29 Completed [facility] of 00:00:00 [facility] Rho (d) Immune 2019-03-29 Completed [facility] 00:00:00 [facility] TDAP 2019-03-29 Completed [facility] of 00:00:00 [facility] Rho (d) Immune 2019-03-29 Completed [facility] 00:00:00 [facility] TDAP 2019-03-29 Completed [facility] of 00:00:00 [facility] Rho (d) Immune 2019-03-29 Completed [facility] 00:00:00 [facility] TDAP 2019-03-29 Completed [facility] of 00:00:00 [facility] Rho (d) Immune 2019-03-29 Completed [facility] 00:00:00 [facility] TDAP 2019-03-29 Completed [facility] of 00:00:00 [facility] Rho (d) Immune 2019-03-29 Completed [facility] 00:00:00 [facility] TDAP 2019-03-29 Completed [facility] of 00:00:00 [facility] Branch Rho (d) Immune 2019-03-29 Completed [facility] 00:00:00 [facility] TDAP 2019-03-29 Completed [facility] of 00:00:00 [facility] Branch Rho (d) Immune 2019-03-29 Completed [facility] 00:00:00 [facility] TDAP 2019-03-29 Completed [facility] of 00:00:00 [facility] Rho (d) Immune 2019-03-29 Completed [facility] 00:00:00 [facility] TDAP 2019-03-29 Completed [facility] of 00:00:00 [facility] Rho (d) Immune 2019-03-29 Completed [facility] 00:00:00 [facility] TDAP 2019-03-29 Completed [facility] of 00:00:00 [facility] Rho (d) Immune 2019-03-29 Completed [facility] 00:00:00 [facility] TDAP 2019-03-29 Completed [facility] of 00:00:00 [facility] Rho (d) Immune 2019-03-29 Completed [facility] 00:00:00 [facility] TDAP 2019-03-29 Completed [facility] of 00:00:00 [facility] Rho (d) Immune 2019-03-29 Completed [facility] 00:00:00 [facility] TDAP 2019-03-29 Completed [facility] of 00:00:00 [facility] Rho (d) Immune 2019-03-29 Completed [facility] 00:00:00 [facility] TDAP 2019-03-29 Completed [facility] of 00:00:00 [facility] Rho (d) Immune 2019-03-29 Completed [facility] 00:00:00 [facility] TDAP 2019-03-29 Completed [facility] of 00:00:00 [facility] Rho (d) Immune 2019-03-29 Completed [facility] 00:00:00 [facility] TDAP 2019-03-29 Completed [facility] of 00:00:00 [facility] Branch Rho (d) Immune 2019-03-29 Completed [facility] 00:00:00 [facility] TDAP 2019-03-29 Completed [facility] of 00:00:00 [facility] Branch Rho (d) Immune 2019-03-29 Completed [facility] 00:00:00 [facility] TDAP 2019-03-29 Completed [facility] of 00:00:00 [facility] Rho (d) Immune 2019-03-29 Completed [facility] 00:00:00 [facility] TDAP 2019-03-29 Completed [facility] of 00:00:00 [facility] Rho (d) Immune 2019-03-29 Completed [facility] 00:00:00 [facility] TDAP 2019-03-29 Completed [facility] of 00:00:00 [facility] Rho (d) Immune 2019-03-29 Completed [facility] 00:00:00 [facility] TDAP 2019-03-29 Completed [facility] of 00:00:00 [facility] Rho (d) Immune 2019-03-29 Completed [facility] 00:00:00 [facility] TDAP 2019-03-29 Completed [facility] of 00:00:00 [facility] Rho (d) Immune 2019-03-29 Completed [facility] 00:00:00 [facility] TDAP 2019-03-29 Completed [facility] of 00:00:00 [facility] Rho (d) Immune 2019-03-29 Completed [facility] 00:00:00 [facility] TDAP 2019-03-29 Completed [facility] of 00:00:00 [facility] Rho (d) Immune 2019-03-29 Completed [facility] 00:00:00 [facility] TDAP 2019-03-29 Completed [facility] of 00:00:00 [facility] Rho (d) Immune 2019-03-29 Completed [facility] 00:00:00 [facility] TDAP 2019-03-29 Completed [facility] of 00:00:00 [facility] Rho (d) Immune 2019-03-29 Completed [facility] 00:00:00 [facility] TDAP 2019-03-29 Completed [facility] of 00:00:00 [facility] Rho (d) Immune 2019-03-29 Completed [facility] 00:00:00 [facility] TDAP 2019-03-29 Completed [facility] of 00:00:00 [facility] Rho (d) Immune 2019-03-29 Completed [facility] 00:00:00 [facility] TDAP 2019-03-29 Completed [facility] of 00:00:00 [facility] Rho (d) Immune 2019-03-29 Completed [facility] 00:00:00 [facility] TDAP 2019-03-29 Completed [facility] of 00:00:00 [facility] Rho (d) Immune 2019-03-29 Completed [facility] 00:00:00 [facility] TDAP 2019-03-29 Completed [facility] of 00:00:00 [facility] Rho (d) Immune 2019-03-29 Completed [facility] 00:00:00 [facility] TDAP 2019-03-29 Completed [facility] of 00:00:00 [facility] Rho (d) Immune 2019-03-29 Completed [facility] 00:00:00 [facility] TDAP 2019-03-29 Completed [facility] of 00:00:00 [facility] Rho (d) Immune 2019-03-29 Completed [facility] 00:00:00 [facility] TDAP 2019-03-29 Completed [facility] of 00:00:00 [facility] Rho (d) Immune 2019-03-29 Completed [facility] 00:00:00 [facility] TDAP 2019-03-29 Completed [facility] of 00:00:00 [facility] Rho (d) Immune 2019-03-29 Completed [facility] 00:00:00 [facility] TDAP 2019-03-29 Completed [facility] of 00:00:00 [facility] Rho (d) Immune 2019-03-29 Completed [facility] 00:00:00 [facility] TDAP 2019-03-29 Completed [facility] of 00:00:00 [facility] Rho (d) Immune 2019-03-29 Completed [facility] 00:00:00 [facility] TDAP 2019-03-29 Completed [facility] of 00:00:00 [facility] Rho (d) Immune 2019-03-29 Completed [facility] 00:00:00 [facility] TDAP 2019-03-29 Completed [facility] of 00:00:00 [facility] Rho (d) Immune 2019-03-29 Completed [facility] 00:00:00 [facility] TDAP 2019-03-29 Completed [facility] of 00:00:00 [facility] Rho (d) Immune 2019-03-29 Completed [facility] 00:00:00 [facility] TDAP 2019-03-29 Completed [facility] of 00:00:00 [facility] Rho (d) Immune 2019-03-29 Completed [facility] 00:00:00 [facility] TDAP 2019-03-29 Completed [facility] of 00:00:00 [facility] Rho (d) Immune 2019-03-29 Completed [facility] 00:00:00 [facility] TDAP 2019-03-29 Completed [facility] of 00:00:00 [facility] Rho (d) Immune 2019-03-29 Completed [facility] 00:00:00 [facility] TDAP 2019-03-29 Completed [facility] of 00:00:00 [facility] Rho (d) Immune 2019-03-29 Completed [facility] 00:00:00 [facility] TDAP 2019-03-29 Completed [facility] of 00:00:00 [facility] Rho (d) Immune 2019-03-29 Completed [facility] 00:00:00 [facility] TDAP 2019-03-29 Completed [facility] of 00:00:00 [facility] Rho (d) Immune 2019-03-29 Completed [facility] 00:00:00 [facility] TDAP 2019-03-29 Completed [facility] of 00:00:00 [facility] Rho (d) Immune 2019-03-29 Completed [facility] 00:00:00 [facility] TDAP 2019-03-29 Completed [facility] of 00:00:00 [facility] Rho (d) Immune 2019-03-29 Completed [facility] 00:00:00 [facility] TDAP 2019-03-29 Completed [facility] of 00:00:00 [facility] Rho (d) Immune 2019-03-29 Completed [facility] 00:00:00 [facility] TDAP 2019-03-29 Completed [facility] of 00:00:00 [facility] Rho (d) Immune 2019-03-29 Completed [facility] 00:00:00 [facility] TDAP 2019-03-29 Completed [facility] of 00:00:00 [facility] Rho (d) Immune 2019-03-29 Completed [facility] 00:00:00 [facility] TDAP 2019-03-29 Completed [facility] of 00:00:00 [facility] Rho (d) Immune 2019-03-29 Completed [facility] 00:00:00 [facility] TDAP 2019-03-29 Completed [facility] of 00:00:00 [facility] Rho (d) Immune 2019-03-29 Completed [facility] 00:00:00 [facility] TDAP 2019-03-29 Completed [facility] of 00:00:00 [facility] Rho (d) Immune 2019-03-29 Completed [facility] 00:00:00 [facility] TDAP 2019-03-29 Completed [facility] 00:00:00 [facility] Rho (d) Immune 2019-03-29 Completed [facility] 00:00:00 [facility] TDAP 2019-03-29 Completed [facility] 00:00:00 [facility] Rho (d) Immune 2019-03-29 Completed [facility] 00:00:00 [facility] TDAP 2019-03-29 Completed [facility] 00:00:00 [facility] Rho (d) Immune 2019-03-29 Completed [facility] 00:00:00 [facility] TDAP 2019-03-29 Completed [facility] 00:00:00 [facility] Rho (d) Immune 2019-03-29 Completed [facility] 00:00:00 [facility] TDAP 2019-03-29 Completed [facility] 00:00:00 [facility] Rho (d) Immune 2019-03-29 Completed [facility] 00:00:00 [facility] TDAP 2019-03-29 Completed [facility] 00:00:00 [facility] Rho (d) Immune 2019-03-29 Completed [facility] 00:00:00 [facility] TDAP 2019-03-29 Completed [facility] 00:00:00 [facility] Rho (d) Immune 2019-03-29 Completed [facility] 00:00:00 [facility] TDAP 2019-03-29 Completed [facility] 00:00:00 [facility] Rho (d) Immune 2019-03-29 Completed [facility] 00:00:00 [facility] TDAP 2019-03-29 Completed [facility] 00:00:00 [facility] Rho (d) Immune 2019-03-29 Completed [facility] 00:00:00 [facility] TDAP 2019-03-29 Completed [facility] 00:00:00 [facility] Rho (d) Immune 2019-03-29 Completed [facility] 00:00:00 [facility] TDAP 2019-03-29 Completed [facility] 00:00:00 [facility] Rho (d) Immune 2019-03-29 Completed [facility] 00:00:00 [facility] TDAP 2019-03-29 Completed [facility] 00:00:00 [facility] Rho (d) Immune 2019-03-29 Completed [facility] 00:00:00 [facility] TDAP 2019-03-29 Completed [facility] 00:00:00 [facility] Rho (d) Immune 2019-03-29 Completed [facility] 00:00:00 [facility] TDAP 2019-03-29 Completed [facility] 00:00:00 [facility] Rho (d) Immune 2019-03-29 Completed [facility] 00:00:00 [facility] TDAP 2019-03-29 Completed [facility] 00:00:00 [facility] Rho (d) Immune 2019-03-29 Completed [facility] 00:00:00 [facility] TDAP 2019-03-29 Completed [facility] 00:00:00 [facility] Rho (d) Immune 2019-03-29 Completed [facility] 00:00:00 [facility] TDAP 2019-03-29 Completed [facility] 00:00:00 [facility] Rho (d) Immune 2019-03-29 Completed [facility] 00:00:00 [facility] TDAP 2019-03-29 Completed [facility] 00:00:00 [facility] Rho (d) Immune 2019-03-29 Completed [facility] 00:00:00 [facility] Tdap 2019-03-29 Completed [facility] 00:00:00 [facility] Rho (d) Immune 2019-03-29 Completed [facility] 00:00:00 [facility] Tdap 2019-03-29 Completed [facility] 00:00:00 [facility] Rho (d) Immune 2019-03-29 Completed [facility] 00:00:00 [facility] Tdap 2019-03-29 Completed [facility] 00:00:00 [facility] Rho (d) Immune 2019-03-29 Completed [facility] 00:00:00 [facility] Tdap 2019-03-29 Completed [facility] 00:00:00 [facility] Rho (d) Immune 2019-03-29 Completed [facility] 00:00:00 [facility] Tdap 2019-03-29 Completed [facility] 00:00:00 [facility] Rho (d) Immune 2019-03-29 Completed [facility] 00:00:00 [facility] Tdap 2019-03-29 Completed [facility] 00:00:00 [facility] Rho (d) Immune 2019-03-29 Completed [facility] 00:00:00 [facility] Tdap 2019-03-29 Completed [facility] 00:00:00 [facility] Rho (d) Immune 2019-03-29 Completed [facility] 00:00:00 [facility] Tdap 2019-03-29 Completed [facility] 00:00:00 [facility] Rho (d) Immune 2019-03-29 Completed [facility] 00:00:00 [facility] Influenza Virus 2018-10-20 Completed [facility] .5 mL 00:00:00 [facility] 6+ [facility] Influenza Virus 2018-10-20 Completed [facility] .5 mL 00:00:00 [facility] 6+ [facility] Influenza Virus 2018-10-20 Completed [facility] .5 mL 00:00:00 [facility] 6+ [facility] Influenza Virus 2018-10-20 Completed [facility] .5 mL 00:00:00 [facility] 6+ [facility] Influenza Virus 2018-10-20 Completed [facility] .5 mL 00:00:00 [facility] 6+ MO Branch Influenza Virus 2018-10-20 Completed [facility] .5 mL 00:00:00 [facility] 6+ MO Branch Influenza Virus 2018-10-20 Completed [facility] .5 mL 00:00:00 [facility] 6+ MO Branch Influenza Virus 2018-10-20 Completed [facility] .5 mL 00:00:00 [facility] 6+ MO Branch Influenza Virus 2018-10-20 Completed [facility] .5 mL 00:00:00 [facility] 6+ MO [facility] Influenza Virus 2018-10-20 Completed [facility] .5 mL 00:00:00 [facility] 6+ MO Branch Influenza Virus 2018-10-20 Completed [facility] .5 mL 00:00:00 [facility] 6+ MO [facility] Influenza Virus 2018-10-20 Completed [facility] .5 mL 00:00:00 [facility] 6+ MO [facility] Influenza Virus 2018-10-20 Completed [facility] .5 mL 00:00:00 [facility] 6+ MO [facility] Influenza Virus 2018-10-20 Completed [facility] .5 mL 00:00:00 [facility] 6+ MO [facility] Influenza Virus 2018-10-20 Completed [facility] .5 mL 00:00:00 [facility] 6+ [facility] Influenza Virus 2018-10-20 Completed [facility] .5 mL 00:00:00 [facility] 6+ MO [facility] Influenza Virus 2018-10-20 [...] y of [facility] .5 mL 00:00:00 [facility] 6+ MO [facility] Influenza Virus 2018-10-20 Completed [facility] .5 mL 00:00:00 [facility] 6+ MO [facility] Influenza Virus 2018-10-20 Completed [facility] .5 mL 00:00:00 [facility] 6+ MO [facility] Influenza Virus 2018-10-20 Completed [facility] .5 mL 00:00:00 [facility] 6+ MO [facility] Influenza Virus 2018-10-20 Completed [facility] .5 mL 00:00:00 [facility] 6+ MO [facility] Influenza Virus 2018-10-20 [...] y of Vacc[facility] .5 mL 00:00:00 [facility] 6+ MO [facility] Influenza Virus 2018-10-20 Completed [facility] .5 mL 00:00:00 [facility] 6+ MO [facility] Influenza Virus 2018-10-20 Completed [facility] .5 mL 00:00:00 [facility] 6+ MO [facility] Influenza Virus 2018-10-20 Completed [facility] .5 mL 00:00:00 [facility] 6+ MO [facility] Influenza Virus 2018-10-20 [...] y of [facility] .5 mL 00:00:00 [facility] 6+ MO [facility] Influenza Virus 2018-10-20 Completed [facility] .5 mL 00:00:00 [facility] 6+ MO [facility] Influenza Virus 2018-10-20 Completed [facility] .5 mL 00:00:00 [facility] 6+ MO [facility] Influenza Virus [...] y of [facility] .5 mL 00:00:00 [facility] 6+ MO [facility] Influenza Virus [...] y of [facility] .5 mL 00:00:00 [facility] 6+ MO [facility] Influenza Virus [...] y of [facility] .5 mL 00:00:00 [facility] 6+ MO [facility] Influenza Virus 2018-10-20 Completed [facility] .5 mL 00:00:00 [facility] 6+ MO Branch HPV9 2018-07-11 Completed [facility] 00:00:00 [facility] HPV9 2018-07-11 Completed [facility] 00:00:00 [facility] HPV9 2018-07-11 Completed [facility] 00:00:00 [facility] HPV9 2018-07-11 Completed [facility] 00:00:00 [facility] HPV9 2018-07-11 Completed [facility] 00:00:00 [facility] HPV9 2018-07-11 Completed [facility] 00:00:00 [facility] HPV9 2018-07-11 Completed [facility] 00:00:00 [facility] HPV9 2018-07-11 Completed [facility] 00:00:00 [facility] HPV9 2018-07-11 Completed [facility] 00:00:00 [facility] HPV9 2018-07-11 Completed [facility] 00:00:00 [facility] HPV9 2018-07-11 Completed [facility] 00:00:00 [facility] HPV9 2018-07-11 Completed [facility] 00:00:00 [facility] HPV9 2018-07-11 Completed [facility] 00:00:00 [facility] HPV9 2018-07-11 Completed [facility] 00:00:00 [facility] HPV9 2018-07-11 Completed [facility] 00:00:00 [facility] HPV9 2018-07-11 Completed [facility] of 00:00:00 [...] Branch HPV9 2018-07-11 Completed [facility] 00:00:00 [facility] HPV9 2018-07-11 Completed [facility] of [...] Branch HPV9 2018-07-11 Completed [facility] 00:00:00 [facility] HPV9 2018-07-11 Completed [facility] 00:00:00 [facility] HPV9 2018-07-11 Completed [facility] 00:00:00 [facility] HPV9 2018-07-11 Completed [facility] 00:00:00 [facility] HPV9 2018-07-11 Completed [facility] 00:00:00 [facility] HPV9 2018-07-11 Completed [facility] 00:00:00 [facility] HPV9 2018-07-11 Completed [facility] 00:00:00 [facility] HPV9 2018-07-11 Completed [facility] 00:00:00 [facility] HPV9 2018-07-11 Completed [facility] 00:00:00 [facility] HPV9 2018-07-11 Completed [facility] 00:00:00 [facility] HPV9 2018-07-11 Completed [facility] 00:00:00 [facility] HPV9 2018-06-11 Completed [facility] 00:00:00 [facility] Rho (d) Immune 2018-06-11 Completed [facility] 00:00:00 [facility] HPV9 2018-06-11 Completed [facility] 00:00:00 [facility] Rho (d) Immune 2018-06-11 Completed [facility] 00:00:00 [facility] HPV9 2018-06-11 Completed [facility] 00:00:00 [facility] Rho (d) Immune 2018-06-11 Completed [facility] 00:00:00 [facility] HPV9 2018-06-11 Completed [facility] 00:00:00 [facility] Rho (d) Immune 2018-06-11 Completed [facility] 00:00:00 [facility] HPV9 2018-06-11 Completed [facility] 00:00:00 [facility] Rho (d) Immune 2018-06-11 Completed [facility] 00:00:00 [facility] HPV9 2018-06-11 Completed [facility] 00:00:00 [facility] Rho (d) Immune 2018-06-11 Completed [facility] 00:00:00 [facility] HPV9 2018-06-11 Completed [facility] 00:00:00 [facility] Rho (d) Immune 2018-06-11 Completed [facility] 00:00:00 [facility] HPV9 2018-06-11 Completed [facility] 00:00:00 [facility] Rho (d) Immune 2018-06-11 Completed [facility] 00:00:00 [facility] HPV9 2018-06-11 Completed [facility] 00:00:00 [facility] Rho (d) Immune 2018-06-11 Completed [facility] 00:00:00 [facility] HPV9 2018-06-11 Completed [facility] 00:00:00 [facility] Rho (d) Immune 2018-06-11 Completed [facility] 00:00:00 [facility] HPV9 2018-06-11 Completed [facility] 00:00:00 [facility] Rho (d) Immune 2018-06-11 Completed [facility] 00:00:00 [facility] HPV9 2018-06-11 Completed [facility] 00:00:00 [facility] Rho (d) Immune 2018-06-11 Completed [facility] 00:00:00 [facility] HPV9 2018-06-11 Completed [facility] 00:00:00 [facility] Rho (d) Immune 2018-06-11 Completed [facility] 00:00:00 [facility] HPV9 2018-06-11 Completed [facility] 00:00:00 [facility] Rho (d) Immune 2018-06-11 Completed [facility] 00:00:00 [facility] HPV9 2018-06-11 Completed [facility] 00:00:00 [facility] Rho (d) Immune 2018-06-11 Completed [facility] 00:00:00 [facility] HPV9 2018-06-11 Completed [facility] 00:00:00 [facility] Rho (d) Immune 2018-06-11 Completed [facility] 00:00:00 [facility] HPV9 2018-06-11 Completed [facility] 00:00:00 [facility] Rho (d) Immune 2018-06-11 Completed [facility] 00:00:00 [facility] HPV9 2018-06-11 Completed [facility] 00:00:00 [facility] Rho (d) Immune 2018-06-11 Completed [facility] 00:00:00 [facility] HPV9 2018-06-11 Completed [facility] 00:00:00 [facility] Rho (d) Immune 2018-06-11 Completed [facility] 00:00:00 [facility] HPV9 2018-06-11 Completed [facility] 00:00:00 [facility] Rho (d) Immune 2018-06-11 Completed [facility] 00:00:00 [facility] HPV9 2018-06-11 Completed [facility] 00:00:00 [facility] Rho (d) Immune 2018-06-11 Completed [facility] 00:00:00 [facility] HPV9 2018-06-11 Completed [facility] 00:00:00 [facility] Rho (d) Immune 2018-06-11 Completed [facility] 00:00:00 [facility] HPV9 2018-06-11 Completed [facility] 00:00:00 [facility] Rho (d) Immune 2018-06-11 Completed [facility] 00:00:00 [facility] HPV9 2018-06-11 Completed [facility] 00:00:00 [facility] Rho (d) Immune 2018-06-11 Completed [facility] 00:00:00 [facility] HPV9 2018-06-11 Completed [facility] 00:00:00 [facility] Rho (d) Immune 2018-06-11 Completed [facility] 00:00:00 [facility] HPV9 2018-06-11 Completed [facility] 00:00:00 [facility] Rho (d) Immune 2018-06-11 Completed [facility] 00:00:00 [facility] HPV9 2018-06-11 Completed [facility] 00:00:00 [facility] Rho (d) Immune 2018-06-11 Completed [facility] 00:00:00 [facility] HPV9 2018-06-11 Completed [facility] 00:00:00 [facility] Rho (d) Immune 2018-06-11 Completed [facility] 00:00:00 [facility] HPV9 2018-06-11 Completed [facility] 00:00:00 [facility] Rho (d) Immune 2018-06-11 Completed [facility] 00:00:00 [facility] HPV9 2018-06-11 Completed [facility] 00:00:00 [facility] Rho (d) Immune 2018-06-11 Completed [facility] 00:00:00 [facility] HPV9 2018-06-11 Completed [facility] 00:00:00 [facility] Rho (d) Immune 2018-06-11 Completed [facility] 00:00:00 [facility] HPV9 2018-06-11 Completed [facility] 00:00:00 [facility] Rho (d) Immune 2018-06-11 Completed [facility] 00:00:00 [facility] HPV9 2018-06-11 Completed [facility] 00:00:00 [facility] Rho (d) Immune 2018-06-11 Completed [facility] 00:00:00 [facility] HPV9 2018-06-11 Completed [facility] 00:00:00 [facility] Rho (d) Immune 2018-06-11 Completed [facility] 00:00:00 [facility] HPV9 2018-06-11 Completed [facility] 00:00:00 [facility] Rho (d) Immune 2018-06-11 Completed [facility] 00:00:00 [facility] HPV9 2018-06-11 Completed [facility] 00:00:00 [facility] Rho (d) Immune 2018-06-11 Completed [facility] 00:00:00 [facility] HPV9 2018-06-11 Completed [facility] 00:00:00 [facility] Rho (d) Immune 2018-06-11 Completed [facility] 00:00:00 [facility] HPV9 2018-06-11 Completed [facility] 00:00:00 [facility] Rho (d) Immune 2018-06-11 Completed [facility] 00:00:00 [facility] HPV9 2018-06-11 Completed [facility] 00:00:00 [facility] Rho (d) Immune 2018-06-11 Completed [facility] 00:00:00 [facility] HPV9 2018-06-11 Completed [facility] 00:00:00 [facility] Rho (d) Immune 2018-06-11 Completed [facility] 00:00:00 [facility] HPV9 2018-06-11 Completed [facility] 00:00:00 [facility] Rho (d) Immune 2018-06-11 Completed [facility] 00:00:00 [facility] HPV9 2018-06-11 Completed [facility] 00:00:00 [facility] Rho (d) Immune 2018-06-11 Completed [facility] 00:00:00 [facility] HPV9 2018-06-11 Completed [facility] 00:00:00 [facility] Rho (d) Immune 2018-06-11 Completed [facility] 00:00:00 [facility] HPV9 2018-06-11 Completed [facility] 00:00:00 [facility] Rho (d) Immune 2018-06-11 Completed [facility] 00:00:00 [facility] HPV9 2018-06-11 Completed [facility] 00:00:00 [facility] Rho (d) Immune 2018-06-11 Completed [facility] Gl[facility] 00:00:00 [facility] HPV9 2018-06-11 Completed [facility] 00:00:00 [facility] Rho (d) Immune 2018-06-11 Completed [facility] Gl[facility] 00:00:00 [facility] HPV9 2018-06-11 Completed [facility] 00:00:00 [facility] Rho (d) Immune 2018-06-11 Completed [facility] Gl[facility]ulin 00:00:00 [facility] HPV9 2018-06-11 Completed [facility] 00:00:00 [facility] Rho (d) Immune 2018-06-11 Completed [facility] Gl[facility] 00:00:00 [facility] HPV9 2018-06-11 Completed [facility] 00:00:00 [facility] Rho (d) Immune 2018-06-11 Completed [facility] 00:00:00 [facility] HPV9 2018-06-11 Completed [facility] 00:00:00 [facility] Rho (d) Immune 2018-06-11 Completed [facility] Gl[facility] 00:00:00 [facility] HPV9 2018-06-11 Completed [facility] 00:00:00 [facility] Rho (d) Immune 2018-06-11 Completed [facility] Gl[facility] 00:00:00 [facility] HPV9 2018-06-11 Completed [facility] 00:00:00 [facility] Rho (d) Immune 2018-06-11 Completed [facility] 00:00:00 [facility] HPV9 2018-06-11 Completed [facility] 00:00:00 [facility] Rho (d) Immune 2018-06-11 Completed [facility] 00:00:00 [facility] HPV9 2018-06-11 Completed [facility] 00:00:00 [facility] Rho (d) Immune 2018-06-11 Completed [facility] Gl[facility] 00:00:00 [facility] HPV9 2018-06-11 Completed [facility] 00:00:00 [facility] Rho (d) Immune 2018-06-11 Completed [facility] 00:00:00 [facility] HPV9 2018-06-11 Completed [facility] 00:00:00 [facility] Rho (d) Immune 2018-06-11 Completed [facility] Gl[facility]ulin 00:00:00 [facility] HPV9 2018-06-11 Completed [facility] 00:00:00 [facility] Rho (d) Immune 2018-06-11 Completed [facility] 00:00:00 [facility] HPV9 2018-06-11 Completed [facility] 00:00:00 [facility] Rho (d) Immune 2018-06-11 Completed [facility] 00:00:00 [facility] HPV9 2018-06-11 Completed [facility] 00:00:00 [facility] Rho (d) Immune 2018-06-11 Completed [facility] 00:00:00 [facility] HPV9 2018-06-11 Completed [facility] 00:00:00 [facility] Rho (d) Immune 2018-06-11 Completed [facility] 00:00:00 [facility] HPV9 2018-06-11 Completed [facility] 00:00:00 [facility] Rho (d) Immune 2018-06-11 Completed [facility] 00:00:00 [facility] HPV9 2018-06-11 Completed [facility] 00:00:00 [facility] Rho (d) Immune 2018-06-11 Completed [facility] 00:00:00 [facility] HPV9 2018-06-11 Completed [facility] 00:00:00 [facility] Rho (d) Immune 2018-06-11 Completed [facility] 00:00:00 [facility] HPV9 2018-06-11 Completed [facility] 00:00:00 [facility] Rho (d) Immune 2018-06-11 Completed [facility] 00:00:00 [facility] HPV9 2018-06-11 Completed [facility] 00:00:00 [facility] Rho (d) Immune 2018-06-11 Completed [facility] 00:00:00 [facility] HPV9 2018-06-11 Completed [facility] 00:00:00 [facility] Rho (d) Immune 2018-06-11 Completed [facility] 00:00:00 [facility] HPV9 2018-06-11 Completed [facility] 00:00:00 [facility] Rho (d) Immune 2018-06-11 Completed [facility] 00:00:00 [facility] HPV9 2018-06-11 Completed [facility] 00:00:00 [facility] Rho (d) Immune 2018-06-11 Completed [facility] 00:00:00 [facility] HPV9 2018-06-11 Completed [facility] 00:00:00 [facility] Rho (d) Immune 2018-06-11 Completed [facility] 00:00:00 [facility] HPV9 2018-06-11 Completed [facility] 00:00:00 [facility] Rho (d) Immune 2018-06-11 Completed [facility] 00:00:00 [facility] HPV9 2018-06-11 Completed [facility] 00:00:00 [facility] Rho (d) Immune 2018-06-11 Completed [facility] 00:00:00 [facility] HPV9 2018-06-11 Completed [facility] 00:00:00 [facility] Rho (d) Immune 2018-06-11 Completed [facility] Gl[facility] 00:00:00 [facility] HPV9 2018-06-11 Completed [facility] 00:00:00 [facility] Rho (d) Immune 2018-06-11 Completed [facility] 00:00:00 [facility] HPV9 2018-06-11 Completed [facility] 00:00:00 [facility] Rho (d) Immune 2018-06-11 Completed [facility] 00:00:00 [facility] HPV9 2018-06-11 Completed [facility] 00:00:00 [facility] Rho (d) Immune 2018-06-11 Completed [facility] 00:00:00 [facility] HPV9 2018-06-11 Completed [facility] 00:00:00 [facility] Rho (d) Immune 2018-06-11 Completed [facility] 00:00:00 [facility] HPV9 2018-06-11 Completed [facility] 00:00:00 [facility] Rho (d) Immune 2018-06-11 Completed [facility] 00:00:00 [facility] HPV9 2018-06-11 Completed [facility] 00:00:00 [facility] Rho (d) Immune 2018-06-11 Completed [facility] 00:00:00 [facility] HPV9 2018-06-11 Completed [facility] 00:00:00 [facility] Rho (d) Immune 2018-06-11 Completed [facility] 00:00:00 [facility] HPV9 2018-06-11 Completed [facility] 00:00:00 [facility] Rho (d) Immune 2018-06-11 Completed [facility] 00:00:00 [facility] HPV9 2018-06-11 Completed [facility] 00:00:00 [facility] Rho (d) Immune 2018-06-11 Completed [facility] 00:00:00 [facility] HPV9 2018-06-11 Completed [facility]00 [facility] [facility] Rho (d) Immune 2018-06-11 Completed [facility] Globulin 00:00:00 [facility] HPV9 2018-06-11 Completed [facility] 00:00:00 [facility] Rho (d) Immune 2018-06-11 Completed [facility] Globulin 00:00:00 [facility] HPV9 2018-06-11 Completed [facility] 00:00:00 [facility] Rho (d) Immune 2018-06-11 Completed [facility] Gl[facility] 00:00:00 [facility] HPV9 2018-06-11 Completed [facility] 00:00:00 [facility] Rho (d) Immune 2018-06-11 Completed [facility] Globulin 00:00:00 [facility] HPV9 2018-06-11 Completed [facility] 00:00:00 [facility] Rho (d) Immune 2018-06-11 Completed [facility] Gl[facility]ulin 00:00:00 [facility] HPV9 2018-06-11 Completed [facility] 00:00:00 [facility] Rho (d) Immune 2018-06-11 Completed [facility] Globulin 00:00:00 [facility] HPV9 2018-06-11 Completed [facility] 00:00:00 [facility] Rho (d) Immune 2018-06-11 Completed [facility] Gl[facility]ulin 00:00:00 [facility] HPV9 2018-06-11 Completed [facility] 00:00:00 [facility] Rho (d) Immune 2018-06-11 Completed [facility] Gl[facility] 00:00:00 [facility] HPV9 2018-06-11 Completed [facility] 00:00:00 [facility] Rho (d) Immune 2018-06-11 Completed [facility] Globulin 00:00:00 [facility] HPV9 2018-06-11 Completed [facility] 00:00:00 [facility] Rho (d) Immune 2018-06-11 Completed [facility] Gl[facility]ulin 00:00:00 [facility] HPV9 2018-06-11 Completed [facility] 00:00:00 [facility] Rho (d) Immune 2018-06-11 Completed [facility] Gl[facility]ulin 00:00:00 [facility] HPV9 2018-06-11 Completed [facility] 00:00:00 [facility] Rho (d) Immune 2018-06-11 Completed [facility] Gl[facility]ulin 00:00:00 [facility] HPV9 2018-06-11 Completed [facility] 00:00:00 [facility] Rho (d) Immune 2018-06-11 Completed [facility] Gl[facility]ulin 00:00:00 [facility] HPV9 2018-06-11 Completed [facility] 00:00:00 [facility] Rho (d) Immune 2018-06-11 Completed [facility] Gl[facility]ulin 00:00:00 [facility] HPV9 2018-06-11 Completed [facility] 00:00:00 [facility] Rho (d) Immune 2018-06-11 Completed [facility] Gl[facility]ulin 00:00:00 [facility] HPV9 2018-06-11 Completed [facility] 00:00:00 [facility] Rho (d) Immune 2018-06-11 Completed [facility] Globulin 00:00:00 [facility] HPV9 2018-06-11 Completed [facility] 00:00:00 [facility] Rho (d) Immune 2018-06-11 Completed [facility] Globulin 00:00:00 [facility] HPV9 2018-06-11 Completed [facility] 00:00:00 [facility] Rho (d) Immune 2018-06-11 Completed [facility] Gl[facility]ulin 00:00:00 [facility] HPV9 2018-06-11 Completed [facility] 00:00:00 [facility] Rho (d) Immune 2018-06-11 Completed [facility] Globulin 00:00:00 [facility] HPV9 2018-06-11 Completed [facility] 00:00:00 [facility] Rho (d) Immune 2018-06-11 Completed [facility] Gl[facility]ulin 00:00:00 [facility] HPV9 2018-06-11 Completed [facility] 00:00:00 [facility] Rho (d) Immune 2018-06-11 Completed [facility] Gl[facility]ulin 00:00:00 [facility] HPV9 2018-06-11 Completed [facility] 00:00:00 [facility] Rho (d) Immune 2018-06-11 Completed [facility] Gl[facility] 00:00:00 [facility] HPV9 2018-06-11 Completed [facility] 00:00:00 [facility] Rho (d) Immune 2018-06-11 Completed [facility] Globulin 00:00:00 [facility] HPV9 2018-06-11 Completed [facility] 00:00:00 [facility] Rho (d) Immune 2018-06-11 Completed [facility] Globulin 00:00:00 [facility] HPV9 2018-06-11 Completed [facility] 00:00:00 [facility] Rho (d) Immune 2018-06-11 Completed [facility] Globulin 00:00:00 [facility] HPV9 2018-06-11 Completed [facility] 00:00:00 [facility] Rho (d) Immune 2018-06-11 Completed [facility] Gl[facility]ulin 00:00:00 [facility] HPV9 2018-06-11 Completed [facility] 00:00:00 [facility] Rho (d) Immune 2018-06-11 Completed [facility] Globulin 00:00:00 [facility] HPV9 2018-06-11 Completed [facility] 00:00:00 [facility] Rho (d) Immune 2018-06-11 Completed [facility] Globulin 00:00:00 [facility] HPV9 2018-06-11 Completed [facility] 00:00:00 [facility] Rho (d) Immune 2018-06-11 Completed [facility] Gl[facility] 00:00:00 [facility] Tdap 2018-04-18 Completed [facility] 00:00:00 [facility] Tdap 2018-04-18 Completed [facility] 00:00:00 [facility] Tdap 2018-04-18 Completed [facility] 00:00:00 [facility] Tdap 2018-04-18 Completed [facility] 00:00:00 [facility] Tdap 2018-04-18 Completed [facility] 00:00:00 [facility] Tdap 2018-04-18 Completed [facility] 00:00:00 [facility] Tdap 2018-04-18 Completed [facility] 00:00:00 [facility] Tdap 2018-04-18 Completed [facility] 00:00:00 [facility] Tdap 2018-04-18 Completed [facility] 00:00:00 [facility] Tdap 2018-04-18 Completed [facility] 00:00:00 [facility] Tdap 2018-04-18 Completed [facility] 00:00:00 [facility] Tdap 2018-04-18 Completed [facility] 00:00:00 [facility] TDAP 2018-04-18 Completed [facility] 00:00:00 [facility] TDAP 2018-04-18 Completed [facility] 00:00:00 [facility] TDAP 2018-04-18 Completed [facility] 00:00:00 [facility] TDAP 2018-04-18 Completed [facility] 00:00:00 [facility] TDAP 2018-04-18 Completed [facility] 00:00:00 [facility] TDAP 2018-04-18 Completed [facility] 00:00:00 [facility] TDAP 2018-04-18 Completed [facility] 00:00:00 [facility] TDAP 2018-04-18 Completed [facility] 00:00:00 [facility] TDAP 2018-04-18 Completed [facility] of 00:00:00 [facility] TDAP 2018-04-18 Completed [facility] 00:00:00 [facility] TDAP 2018-04-18 Completed [facility] 00:00:00 [facility] TDAP 2018-04-18 Completed [facility] 00:00:00 [facility] TDAP 2018-04-18 Completed [facility] 00:00:00 [facility] TDAP 2018-04-18 Completed [facility] 00:00:00 [facility] TDAP 2018-04-18 Completed [facility] 00:00:00 [facility] TDAP 2018-04-18 Completed [facility] 00:00:00 [facility] TDAP 2018-04-18 Completed [facility] 00:00:00 [facility] TDAP 2018-04-18 Completed [facility] 00:00:00 [facility] TDAP 2018-04-18 Completed [facility] 00:00:00 [facility] TDAP 2018-04-18 Completed [facility] 00:00:00 [facility] TDAP 2018-04-18 Completed [facility] 00:00:00 [facility] TDAP 2018-04-18 Completed [facility] 00:00:00 [facility] TDAP 2018-04-18 Completed [facility] 00:00:00 [facility] TDAP 2018-04-18 Completed [facility] 00:00:00 [facility] TDAP 2018-04-18 Completed [facility] 00:00:00 [facility] TDAP 2018-04-18 Completed [facility] 00:00:00 [facility] TDAP 2018-04-18 Completed [facility] 00:00:00 [facility] TDAP 2018-04-18 Completed [facility] 00:00:00 [facility] TDAP 2018-04-18 Completed [facility] 00:00:00 [facility] TDAP 2018-04-18 Completed [facility] 00:00:00 [facility] TDAP 2018-04-18 Completed [facility] 00:00:00 [facility] TDAP 2018-04-18 Completed [facility] 00:00:00 [facility] TDAP 2018-04-18 Completed [facility] 00:00:00 [facility] TDAP 2018-04-18 Completed [facility] 00:00:00 [facility] TDAP 2018-04-18 Completed [facility] 00:00:00 [facility] TDAP 2018-04-18 Completed [facility] 00:00:00 [facility] TDAP 2018-04-18 Completed [facility] 00:00:00 [facility] TDAP 2018-04-18 Completed [facility] 00:00:00 [facility] TDAP 2018-04-18 Completed [facility] 00:00:00 [facility] TDAP 2018-04-18 Completed [facility] 00:00:00 [facility] TDAP 2018-04-18 Completed [facility] 00:00:00 [facility] TDAP 2018-04-18 Completed [facility] 00:00:00 [facility] TDAP 2018-04-18 Completed [facility] 00:00:00 [facility] TDAP 2018-04-18 Completed [facility] 00:00:00 [facility] TDAP 2018-04-18 Completed [facility] 00:00:00 [facility] TDAP 2018-04-18 Completed [facility] 00:00:00 [facility] TDAP 2018-04-18 Completed [facility] 00:00:00 [facility] TDAP 2018-04-18 Completed [facility] 00:00:00 [facility] TDAP 2018-04-18 Completed [facility] 00:00:00 [facility] TDAP 2018-04-18 Completed [facility] 00:00:00 [facility] TDAP 2018-04-18 Completed [facility] 00:00:00 [facility] TDAP 2018-04-18 Completed [facility] 00:00:00 [facility] TDAP 2018-04-18 Completed [facility] 00:00:00 [facility] TDAP 2018-04-18 Completed [facility] 00:00:00 [facility] TDAP 2018-04-18 Completed [facility] 00:00:00 [facility] TDAP 2018-04-18 Completed [facility] 00:00:00 [facility] TDAP 2018-04-18 Completed [facility] 00:00:00 [facility] TDAP 2018-04-18 Completed [facility] 00:00:00 [facility] TDAP 2018-04-18 Completed [facility] 00:00:00 [facility] TDAP 2018-04-18 Completed [facility] 00:00:00 [facility] TDAP 2018-04-18 Completed [facility] 00:00:00 [facility] TDAP 2018-04-18 Completed [facility] 00:00:00 [facility] TDAP 2018-04-18 Completed [facility] 00:00:00 [facility] TDAP 2018-04-18 Completed [facility] 00:00:00 [facility] TDAP 2018-04-18 Completed [facility] 00:00:00 [facility] TDAP 2018-04-18 Completed [facility] 00:00:00 [facility] TDAP 2018-04-18 Completed [facility] 00:00:00 [facility] TDAP 2018-04-18 Completed [facility] 00:00:00 [facility] TDAP 2018-04-18 Completed [facility] 00:00:00 [facility] TDAP 2018-04-18 Completed [facility] 00:00:00 [facility] TDAP 2018-04-18 Completed [facility] 00:00:00 [facility] TDAP 2018-04-18 Completed [facility] 00:00:00 [facility] TDAP 2018-04-18 Completed [facility] 00:00:00 [facility] TDAP 2018-04-18 Completed [facility] 00:00:00 [facility] TDAP 2018-04-18 Completed [facility] 00:00:00 [facility] TDAP 2018-04-18 Completed [facility] 00:00:00 [facility] TDAP 2018-04-18 Completed [facility] 00:00:00 [facility] TDAP 2018-04-18 Completed [facility] 00:00:00 [facility] TDAP 2018-04-18 Completed [facility] 00:00:00 [facility] TDAP 2018-04-18 Completed [facility] 00:00:00 [facility] Tdap 2018-04-18 Completed [facility] 00:00:00 [facility] Tdap 2018-04-18 Completed [facility] 00:00:00 [facility] Tdap 2018-04-18 Completed [facility] 00:00:00 [facility] Tdap 2018-04-18 Completed [facility] of 00:00:00 [facility] Tdap 2018-04-18 Completed [facility] 00:00:00 [facility] Tdap 2018-04-18 Completed [facility] 00:00:00 [facility] Tdap 2018-04-18 Completed [facility] 00:00:00 [facility] Tdap 2018-04-18 Completed [facility] 00:00:00 [facility] Tdap 2018-04-18 Completed [facility] 00:00:00 [facility] Tdap 2018-04-18 Completed [facility] 00:00:00 [facility] Tdap 2018-04-18 Completed [facility] 00:00:00 [facility] Tdap 2018-04-18 Completed [facility] 00:00:00 [facility] Tdap 2018-04-18 Completed [facility] 00:00:00 [facility] Tdap 2018-04-18 Completed [facility] of 00:00:00 [facility] Tdap 2018-04-18 Completed University of 00:00:00 [facility] Tdap 2018-04-18 Completed [facility] of 00:00:00 [facility] Tdap 2018-04-18 Completed [facility] of 00:00:00 [facility] Tdap 2018-04-18 Completed [facility] of 00:00:00 [facility] Vital Signs Vital Name Observation Time Observation Value Comments Source Systolic blood 2022-04-02 19:43:00 112 mm[Hg] Univer sity of pressure [facility] Diastolic blood 2022-04-02 19:43:00 73 mm[Hg] Unive rsity of pressure [facility] Heart rate 2022-04-02 19:43:00 78 /min Universi ty of [facility] Body temperature 2022-04-02 19:43:00 36.89 Elida Univ ersity of [facility] Respiratory rate 2022-04-02 19:43:00 18 /[facility] Body weight 2022-04-02 19:43:00 82.373 kg Universi ty [facility] Systolic blood 2021-03-27 14:34:00 105 mm[Hg] Univer sity of pressure [facility] Diastolic blood 2021-03-27 14:34:00 68 mm[Hg] Unive rsity of pressure [facility] Heart rate 2021-03-27 14:34:00 130 /min Universi ty [facility] Body temperature 2021-03-27 14:34:00 37.06 Elida [facility] Respiratory rate 2021-03-27 14:34:00 18 /min Univ ersity of [facility] Body weight 2021-03-27 14:34:00 90.719 kg Universi ty of [facility] BMI 2021-03-27 14:34:00 32.28 kg/m2 Universi ty [facility] Oxygen saturation in 2021-03-27 14:34:00 98 /min [facility] Arterial blood by [facility] Pulse oximetry Branch Systolic blood 2021-03-27 14:34:00 105 mm[Hg] Univer sity of pressure [facility] Diastolic blood 2021-03-27 14:34:00 68 mm[Hg] Unive rsity of pressure [facility] Heart rate 2021-03-27 14:34:00 130 /min Universi ty of [facility] Body temperature 2021-03-27 14:34:00 37.06 Elida Univ ersity of [facility] Respiratory rate 2021-03-27 14:34:00 18 /min Univ ersity of [facility] Body weight 2021-03-27 14:34:00 90.719 kg Universi ty [facility] BMI 2021-03-27 14:34:00 32.28 kg/m2 [facility] Oxygen saturation in 2021-03-27 14:34:00 98 /min University Arterial blood by [facility] Pulse oximetry Branch Systolic blood 2021-03-25 21:06:00 112 mm[Hg] Univer sity of pressure [facility] Diastolic blood 2021-03-25 21:06:00 65 mm[Hg] Unive rsity of pressure [facility] Heart rate 2021-03-25 21:06:00 106 /min [facility]i [facility] Body temperature 2021-03-25 21:06:00 37.17 Elida Univ ersity of [facility] Respiratory rate 2021-03-25 21:06:00 16 /min Univ ersity of [facility] Body height 2021-03-25 21:06:00 167.6 cm [facility]i [facility] Body weight 2021-03-25 21:06:00 88.996 kg [facility] BMI 2021-03-25 21:06:00 31.67 kg/m2 [facility] Systolic blood 2021-03-25 21:06:00 112 mm[Hg] Univer sity of pressure [facility] Diastolic blood 2021-03-25 21:06:00 65 mm[Hg] Unive rsity of pressure [facility] Heart rate 2021-03-25 21:06:00 106 /min [facility] Body temperature 2021-03-25 21:06:00 37.17 Elida Univ ers[facility] of [facility] Respiratory rate 2021-03-25 21:06:00 16 /min Univ ersity of [facility] Body height 2021-03-25 21:06:00 167.6 cm [facility]i [facility] Body weight 2021-03-25 21:06:00 88.996 kg [facility] ty [facility] BMI 2021-03-25 21:06:00 31.67 kg/m2 [facility] Systolic blood 2021-03-16 04:35:00 113 mm[Hg] Univer sity of pressure [facility] Diastolic blood 2021-03-16 04:35:00 58 mm[Hg] Unive rsity of pressure [facility] Heart rate 2021-03-16 04:35:00 93 /min [facility] Body temperature 2021-03-16 04:35:00 37.17 Elida Univ ers[facility] of [facility] Respiratory rate 2021-03-16 04:35:00 16 /min Univ ersity of [facility] Oxygen saturation in 2021-03-16 04:35:00 98 /min University of Arterial blood by [place] [employer] carlos Pulse oximetry Branch Body height 2021-03-16 03:51:00 167.6 cm [facility] of [facility] Body weight 2021-03-16 03:51:00 86.183 kg [facility]i ty [facility] BMI 2021-03-16 03:51:00 30.67 kg/m2 [facility] Systolic blood 2021-03-16 04:35:00 113 mm[Hg] Univer sity of pressure [facility] Diastolic blood 2021-03-16 04:35:00 58 mm[Hg] Unive rsity of pressure [facility] Heart rate 2021-03-16 04:35:00 93 /min [facility] Body temperature 2021-03-16 04:35:00 37.17 Elida Univ [facility] Respiratory rate 2021-03-16 04:35:00 16 /min Univ ersity of [facility] Oxygen saturation in 2021-03-16 04:35:00 98 /min University of Arterial blood by [place] [employer] carlos Pulse oximetry Branch Body height 2021-03-16 03:51:00 167.6 cm [facility] Body weight 2021-03-16 03:51:00 86.183 kg [facility] BMI 2021-03-16 03:51:00 30.67 kg/m2 [facility] Systolic blood 2021-03-04 18:24:00 117 mm[Hg] Univer sity of pressure [facility] Diastolic blood 2021-03-04 18:24:00 73 mm[Hg] Unive rsity of pressure [facility] Heart rate 2021-03-04 18:24:00 99 /min [facility]i ty [facility] Body temperature 2021-03-04 18:24:00 36.72 Elida Univ ersity of [facility] Respiratory rate 2021-03-04 18:24:00 16 /min Univ ersity of [facility] Body height 2021-03-04 18:24:00 167.6 cm [facility] Body weight 2021-03-04 18:24:00 88.111 kg [facility] BMI 2021-03-04 18:24:00 31.35 kg/m2 [facility] Systolic blood 2021-03-04 18:24:00 117 mm[Hg] Univer sity of pressure [facility] Diastolic blood 2021-03-04 18:24:00 73 [...] 2021-03-04 18:24:00 31.35 kg/m2 [facility] Systolic blood 2021-02-18 18:54:00 118 mm[Hg] Univer sity of pressure [facility] Diastolic blood 2021-02-18 18:54:00 72 mm[Hg] Unive rsity of pressure [facility] Heart rate 2021-02-18 18:54:00 86 /min [facility]i ty [facility] Body temperature 2021-02-18 18:54:00 36.44 Elida Univ [facility] of [facility] Respiratory rate 2021-02-18 18:54:00 16 /min Univ ersity of [facility] Body height 2021-02-18 18:54:00 167.6 cm [facility] Body weight 2021-02-18 18:54:00 88.905 kg [facility] BMI 2021-02-18 18:54:00 31.64 kg/m2 [facility] Systolic blood 2021-02-18 18:54:00 118 mm[Hg] Univer sity of pressure [facility] Diastolic blood 2021-02-18 18:54:00 72 mm[Hg] Unive rsity of pressure [facility] Heart rate 2021-02-18 18:54:00 86 /min [facility] Body temperature 2021-02-18 18:54:00 36.44 Elida [facility] Respiratory rate 2021-02-18 18:54:00 16 /min Univ ersity [facility] Body height 2021-02-18 18:54:00 167.6 cm [facility] Body weight 2021-02-18 18:54:00 88.905 kg [facility] BMI 2021-02-18 18:54:00 31.64 kg/m2 [facility] Systolic blood 2021-02-11 18:38:00 105 mm[Hg] Univer sity of pressure [facility] Diastolic blood 2021-02-11 18:38:00 61 mm[Hg] Unive rsity of pressure [facility] Heart rate 2021-02-11 18:38:00 82 /min [facility] Body temperature 2021-02-11 18:38:00 36.67 Elida [facility] Respiratory rate 2021-02-11 18:38:00 16 /min Univ ersity of [facility] Body height 2021-02-11 18:38:00 167.6 cm [facility] Body weight 2021-02-11 18:38:00 89.903 kg [facility] BMI 2021-02-11 18:38:00 31.99 kg/m2 [facility] Systolic blood 2021-02-04 18:18:00 110 mm[Hg] Univer sity of pressure [facility] Diastolic blood 2021-02-04 18:18:00 61 mm[Hg] Unive rsity of pressure [facility] Heart rate 2021-02-04 18:18:00 85 /min [facility] Body temperature 2021-02-04 18:18:00 37.39 Elida [facility] Respiratory rate 2021-02-04 18:18:00 16 /min Univ ersity of [facility] Body height 2021-02-04 18:18:00 167.6 cm [facility] Body weight 2021-02-04 18:18:00 90.447 kg [facility] BMI 2021-02-04 18:18:00 32.18 kg/m2 [facility] Systolic blood 2021-01-28 18:26:00 115 mm[Hg] Univer sity of pressure [facility] Diastolic blood 2021-01-28 18:26:00 69 mm[Hg] Unive rsity of pressure [facility] Heart rate 2021-01-28 18:26:00 93 /min [facility] Body temperature 2021-01-28 18:26:00 36.56 Elida [facility] Respiratory rate 2021-01-28 18:26:00 16 /min Univ ersity of [facility] Body height 2021-01-28 18:26:00 167.6 cm [facility] Body weight 2021-01-28 18:26:00 89.529 kg [facility] BMI 2021-01-28 18:26:00 31.86 kg/m2 [facility] Systolic blood 2021-01-22 18:50:00 110 [...] 2021-01-22 18:50:00 88.724 kg [facility] BMI 2021-01-22 18:50:00 31.57 kg/m2 [facility] Systolic blood 2021-01-15 18:58:00 108 mm[Hg] Univer sity of pressure [facility] Diastolic blood 2021-01-15 18:58:00 74 mm[Hg] Unive rsity of pressure [facility] Heart rate 2021-01-15 18:58:00 100 /min [facility] Body temperature 2021-01-15 18:58:00 37.33 Elida [facility] Respiratory rate 2021-01-15 18:58:00 16 /min Univ ersity [facility] Body height 2021-01-15 18:58:00 167.6 cm [facility] Body weight 2021-01-15 18:58:00 89.177 kg [facility] BMI 2021-01-15 18:58:00 31.73 kg/m2 [facility] Systolic blood 2021-01-07 19:01:00 97 mm[Hg] [facility] Diastolic blood 2021-01-07 19:01:00 67 mm[Hg] [facility] Heart rate 2021-01-07 19:01:00 83 /min [facility] Body temperature 2021-01-07 19:01:00 36.83 Elida [facility] Respiratory rate 2021-01-07 19:01:00 16 /min [facility] Body height 2021-01-07 19:01:00 167.6 cm [facility] Body weight 2021-01-07 19:01:00 87.771 kg [facility] BMI 2021-01-07 19:01:00 31.23 kg/m2 [facility] Systolic blood 2021-01-01 18:17:00 111 mm[Hg] [facility] Diastolic blood 2021-01-01 18:17:00 55 mm[Hg] [facility] Heart rate 2021-01-01 18:17:00 103 /min [facility] Body temperature 2021-01-01 18:17:00 36.67 Elida [facility] Respiratory rate 2021-01-01 18:17:00 24 /min [facility] Body height 2021-01-01 18:17:00 167.6 cm [facility] Body weight 2021-01-01 18:17:00 88.225 kg [facility] BMI 2021-01-01 18:17:00 31.39 kg/m2 [facility] Systolic blood 2020-12-24 19:41:00 124 mm[Hg] [facility] Diastolic blood 2020-12-24 19:41:00 77 mm[Hg] [facility] Heart rate 2020-12-24 19:41:00 93 /min [facility] Body temperature 2020-12-24 19:41:00 36.67 Elida [facility] Respiratory rate 2020-12-24 19:41:00 16 /min [facility] Body height 2020-12-24 19:41:00 167.6 cm [facility] Body weight 2020-12-24 19:41:00 89.268 kg [facility] BMI 2020-12-24 19:41:00 31.76 kg/m2 [facility] Systolic blood 2020-12-19 00:29:00 105 mm[Hg] [facility] Diastolic blood 2020-12-19 00:29:00 42 mm[Hg] [facility] Heart rate 2020-12-19 00:29:00 65 /min [facility] Body temperature 2020-12-19 00:29:00 36.67 Elida [facility] Respiratory rate 2020-12-19 00:29:00 18 /min [facility] Body height 2020-12-19 00:29:00 167.6 cm [facility] Body weight 2020-12-19 00:29:00 88.905 kg [facility] BMI 2020-12-19 00:29:00 31.64 kg/m2 [facility] Systolic blood 2020-12-17 19:38:00 119 mm[Hg] [facility] Diastolic blood 2020-12-17 19:38:00 64 mm[Hg] [facility] Heart rate 2020-12-17 19:38:00 79 /min [facility] Body temperature 2020-12-17 19:38:00 36.56 Elida [facility] Respiratory rate 2020-12-17 19:38:00 16 /min [facility] Body height 2020-12-17 19:38:00 167.6 cm [facility] Body weight 2020-12-17 19:38:00 89.449 kg [facility] BMI 2020-12-17 19:38:00 31.83 kg/m2 [facility] Systolic blood 2020-12-10 18:51:00 107 mm[Hg] [facility] Diastolic blood 2020-12-10 18:51:00 63 mm[Hg] [facility] Heart rate 2020-12-10 18:51:00 62 /min [facility] Body temperature 2020-12-10 18:51:00 36.78 Elida [facility] Respiratory rate 2020-12-10 18:51:00 16 /min [facility] Body height 2020-12-10 18:51:00 167.6 cm [facility] Body weight 2020-12-10 18:51:00 87.232 kg [facility] BMI 2020-12-10 18:51:00 31.04 kg/m2 [facility] Systolic blood 2020-12-03 16:08:00 108 mm[Hg] [facility] Diastolic blood 2020-12-03 16:08:00 63 mm[Hg] [facility] Heart rate 2020-12-03 16:08:00 90 /min [facility] Body temperature 2020-12-03 16:08:00 36.61 Elida [facility] Respiratory rate 2020-12-03 16:08:00 18 /min [facility] Body height 2020-12-03 16:08:00 167.6 cm [facility] Body weight 2020-12-03 16:08:00 88.179 kg [facility] BMI 2020-12-03 16:08:00 31.38 kg/m2 [facility] Systolic blood 2020-11-26 18:13:00 108 mm[Hg] [facility] Diastolic blood 2020-11-26 18:13:00 59 [...] 2020-11-19 18:45:00 16 /min [facility] Body height 2020-11-19 18:45:00 167.6 cm [facility] Body weight 2020-11-19 18:45:00 88.14 kg [facility] BMI 2020-11-19 18:45:00 31.36 kg/m2 [facility] Systolic blood 2020-11-12 18:58:00 118 mm[Hg] [facility] Diastolic blood 2020-11-12 18:58:00 67 mm[Hg] [facility] Heart rate 2020-11-12 18:58:00 85 /min [facility] Body temperature 2020-11-12 18:58:00 36.72 Elida [facility] Respiratory rate 2020-11-12 18:58:00 16 /min [facility] Body height 2020-11-12 18:58:00 167.6 cm [facility] Body weight 2020-11-12 18:58:00 88.622 kg [facility] BMI 2020-11-12 18:58:00 31.53 kg/m2 [facility] Systolic blood 2020-10-15 20:07:00 109 mm[Hg] [facility] Diastolic blood 2020-10-15 20:07:00 70 mm[Hg] [facility] Heart rate 2020-10-15 20:07:00 74 /min [facility] Body temperature 2020-10-15 20:07:00 36.72 Elida [facility] Respiratory rate 2020-10-15 20:07:00 16 /min [facility] Body height 2020-10-15 20:07:00 167.6 cm [facility] Body weight 2020-10-15 20:07:00 84.823 kg [facility] BMI 2020-10-15 20:07:00 30.18 kg/m2 [facility] Systolic blood 2020-09-17 21:57:00 103 mm[Hg] [facility] Diastolic blood 2020-09-17 21:57:00 62 mm[Hg] [facility] Heart rate 2020-09-17 21:57:00 73 /min [facility] Body temperature 2020-09-17 21:57:00 37.11 Elida [facility] Respiratory rate 2020-09-17 21:57:00 16 /min [facility] Body height 2020-09-17 21:57:00 167.6 cm [facility] Body weight 2020-09-17 21:57:00 85.531 kg [facility] BMI 2020-09-17 21:57:00 30.43 kg/m2 [facility] Systolic blood 2020-08-20 19:03:00 119 mm[Hg] [facility] Diastolic blood 2020-08-20 19:03:00 82 mm[Hg] [facility] Heart rate 2020-08-20 19:03:00 79 /min [facility] Body temperature 2020-08-20 19:03:00 36.72 Elida [facility] Respiratory rate 2020-08-20 19:03:00 16 /min [facility] Body height 2020-08-20 19:03:00 167.6 cm [facility] Body weight 2020-08-20 19:03:00 87.204 kg [facility] BMI 2020-08-20 19:03:00 31.03 kg/m2 [facility] Systolic blood 2020-06-04 20:48:00 124 mm[Hg] [facility] Diastolic blood 2020-06-04 20:48:00 62 mm[Hg] [facility] Heart rate 2020-06-04 20:48:00 90 /min [facility] Body temperature 2020-06-04 20:48:00 36.17 Elida [facility] Respiratory rate 2020-06-04 20:48:00 16 /min [facility] Body height 2020-06-04 20:48:00 167.6 cm [facility] Body weight 2020-06-04 20:48:00 85.276 kg [facility] BMI 2020-06-04 20:48:00 30.34 kg/m2 [facility] Systolic blood 2020-04-01 21:05:00 130 mm[Hg] [facility] Diastolic blood 2020-04-01 21:05:00 74 mm[Hg] [facility] Heart rate 2020-04-01 21:05:00 95 /min [facility] Body temperature 2020-04-01 21:05:00 37.5 Elida [facility] Respiratory rate 2020-04-01 21:05:00 16 /min [facility] Body height 2020-04-01 21:05:00 167.6 cm [facility] Body weight 2020-04-01 21:05:00 86.75 kg [facility] BMI 2020-04-01 21:05:00 30.87 kg/m2 [facility] Systolic blood 2020-03-22 05:00:00 105 mm[Hg] [facility] Diastolic blood 2020-03-22 05:00:00 72 mm[Hg] [facility] Heart rate 2020-03-22 05:00:00 67 /min [facility] Respiratory rate 2020-03-22 05:00:00 18 /min [facility] Oxygen saturation in 2020-03-22 04:00:00 99 /min [facility] Arterial blood by [facility] Pulse oximetry Branch Body temperature 2020-03-22 03:49:00 37 Elida [facility] Body height 2020-03-22 03:49:00 167.6 cm [facility] Body weight 2020-03-22 03:49:00 86.183 kg [facility] BMI 2020-03-22 03:49:00 30.67 kg/m2 [facility] Systolic blood 2020-02-26 23:57:00 110 mm[Hg] [facility] Diastolic blood 2020-02-26 23:57:00 78 mm[Hg] [facility] Heart rate 2020-02-26 23:57:00 87 /min [facility] Respiratory rate 2020-02-26 23:57:00 18 /min [facility] Oxygen saturation in 2020-02-26 23:57:00 100 /min [facility] Arterial blood by [facility] Pulse oximetry [place] Body temperature 2020-02-26 21:35:00 37 Elida [facility] Body weight 2020-02-26 21:35:00 86.183 kg [facility] Systolic blood 2019-10-05 21:05:00 129 mm[Hg] [facility] Diastolic blood 2019-10-05 21:05:00 57 mm[Hg] [facility] Heart rate 2019-10-05 21:05:00 100 /min [facility] Body temperature 2019-10-05 21:05:00 36.56 Elida [facility] Respiratory rate 2019-10-05 21:05:00 16 /min [facility] Body height 2019-10-05 21:05:00 167.6 cm [facility] Body weight 2019-10-05 21:05:00 86.694 kg [facility] BMI 2019-10-05 21:05:00 30.85 kg/m2 [facility] Systolic blood 2019-09-20 20:30:00 118 mm[Hg] [facility] Diastolic blood 2019-09-20 20:30:00 65 mm[Hg] [facility] Heart rate 2019-09-20 20:30:00 87 /min [facility] Body temperature 2019-09-20 20:30:00 36.28 Elida [facility] Respiratory rate 2019-09-20 20:30:00 18 /min [facility] Body height 2019-09-20 20:30:00 167.6 cm [facility] Body weight 2019-09-20 20:30:00 87.176 kg [facility] BMI 2019-09-20 20:30:00 31.02 kg/m2 [facility] Systolic blood 2019-09-18 20:23:00 123 mm[Hg] [facility] Diastolic blood 2019-09-18 20:23:00 61 mm[Hg] [facility] Heart rate 2019-09-18 20:23:00 73 /min [facility] Body temperature 2019-09-18 20:23:00 36.61 Elida [facility] Respiratory rate 2019-09-18 20:23:00 16 /min [facility] Body height 2019-09-18 20:23:00 167.6 cm [facility] Body weight 2019-09-18 20:23:00 86.24 kg [facility] BMI 2019-09-18 20:23:00 30.69 kg/m2 [facility] Systolic blood 2019-04-24 15:56:00 99 mm[Hg] [facility] Diastolic blood 2019-04-24 15:56:00 61 mm[Hg] [facility] Heart rate 2019-04-24 15:56:00 70 /min [facility] Body temperature 2019-04-24 15:56:00 36.72 Elida [facility] Respiratory rate 2019-04-24 15:56:00 16 /min [facility] Body weight 2019-04-24 15:56:00 84 kg [facility] BMI 2019-04-24 15:56:00 29.89 kg/m2 [facility] Systolic blood 2019-04-17 18:14:00 117 mm[Hg] [facility] Diastolic blood 2019-04-17 18:14:00 61 mm[Hg] [facility] Heart rate 2019-04-17 18:14:00 74 /min [facility] Body temperature 2019-04-17 18:14:00 36.56 Elida [facility] Respiratory rate 2019-04-17 18:14:00 16 /min [facility] Body height 2019-04-17 18:14:00 167.6 cm [facility] Body weight 2019-04-17 18:14:00 83.632 kg [facility] BMI 2019-04-17 18:14:00 29.76 kg/m2 [facility] Heart rate 2019-04-19 01:15:00 92 /min [facility] Oxygen saturation in 2019-04-19 01:15:00 99 /min [facility] Ar[facility]ial blood by [facility] Pulse oximetry Branch Systolic blood 2019-04-19 00:43:00 112 mm[Hg] [facility] Diastolic blood 2019-04-19 00:43:00 66 mm[Hg] [facility] Body temperature 2019-04-19 00:43:00 36.94 Elida [facility] Respiratory rate 2019-04-19 00:43:00 18 /min [facility] Body height 2019-04-19 00:43:00 167.6 cm [facility] Body weight 2019-04-19 00:43:00 83.462 kg [facility] BMI 2019-04-19 00:43:00 29.70 kg/m2 [facility] Systolic blood 2019-04-14 06:50:00 116 mm[Hg] [facility] Diastolic blood 2019-04-14 06:50:00 65 mm[Hg] [facility] Heart rate 2019-04-14 06:50:00 90 /min [facility] Body temperature 2019-04-14 06:50:00 36.61 Elida [facility] Respiratory rate 2019-04-14 06:50:00 18 /min [facility] Body height 2019-04-14 06:50:00 167.6 cm [facility] Body weight 2019-04-14 06:50:00 83.008 kg [facility] BMI 2019-04-14 06:50:00 29.54 kg/m2 [facility] Oxygen saturation in 2019-04-14 06:50:00 100 /min [facility] blood by [facility] Pulse oximetry Branch Systolic blood 2019-04-10 19:21:00 114 mm[Hg] [facility] Diastolic blood 2019-04-10 19:21:00 57 mm[Hg] [facility] Heart rate 2019-04-10 19:21:00 93 /min [facility] Body temperature 2019-04-10 19:21:00 36.78 Elida [facility] Respiratory rate 2019-04-10 19:21:00 16 /min [facility] Body height 2019-04-10 19:21:00 167.6 cm [facility] Body weight 2019-04-10 19:21:00 83.178 kg [facility] BMI 2019-04-10 19:21:00 29.60 kg/m2 [facility] Systolic blood 2019-04-03 16:55:00 117 mm[Hg] [facility] Diastolic blood 2019-04-03 16:55:00 65 mm[Hg] [facility] Heart rate 2019-04-03 16:55:00 79 /min [facility] Body temperature 2019-04-03 16:55:00 36.56 Elida [facility] Respiratory rate 2019-04-03 16:55:00 16 /min [facility] Body height 2019-04-03 16:55:00 167.6 cm [facility] Body weight 2019-04-03 16:55:00 83.178 kg [facility] BMI 2019-04-03 16:55:00 29.60 kg/m2 [facility] Systolic blood 2019-03-29 18:46:00 131 mm[Hg] [facility] Diastolic blood 2019-03-29 18:46:00 77 mm[Hg] [facility] Heart rate 2019-03-29 18:46:00 94 /min [facility] Body temperature 2019-03-29 18:46:00 37.11 Elida [facility] Respiratory rate 2019-03-29 18:46:00 16 /min [facility] Body height 2019-03-29 18:46:00 167.6 cm [facility] Body weight 2019-03-29 18:46:00 82.781 kg [facility] BMI 2019-03-29 18:46:00 29.46 kg/m2 [facility] Systolic blood 2019-03-27 15:18:00 109 mm[Hg] [facility] Diastolic blood 2019-03-27 15:18:00 56 mm[Hg] [facility] Heart rate 2019-03-27 15:18:00 83 /min [facility] Body temperature 2019-03-27 15:18:00 36.28 Elida [facility] Respiratory rate 2019-03-27 15:18:00 16 /min [facility] Body height 2019-03-27 15:18:00 167.6 cm [facility] Body weight 2019-03-27 15:18:00 83.122 kg [facility] BMI 2019-03-27 15:18:00 29.58 kg/m2 [facility] Systolic blood 2019-03-20 15:42:00 116 mm[Hg] [facility] Diastolic blood 2019-03-20 15:42:00 55 mm[Hg] [facility] Heart rate 2019-03-20 15:42:00 76 /min [facility] Body temperature 2019-03-20 15:42:00 36.11 Elida [facility] Respiratory rate 2019-03-20 15:42:00 16 /min [facility] Body height 2019-03-20 15:42:00 167.6 [...] 2019-03-20 15:12:00 36.11 Elida [facility] Respiratory rate 2019-03-20 15:12:00 16 /min [facility] Body height 2019-03-20 15:12:00 167.6 cm [facility] Body weight 2019-03-20 15:12:00 83.235 kg [facility] BMI 2019-03-20 15:12:00 29.62 kg/m2 [facility] Systolic blood 2019-03-15 14:57:00 112 mm[Hg] [facility] Diastolic blood 2019-03-15 14:57:00 59 mm[Hg] [facility] Heart rate 2019-03-15 14:57:00 66 /min [facility] Body temperature 2019-03-15 14:57:00 36.39 Elida [facility] Respiratory rate 2019-03-15 14:57:00 18 /min [facility] Body height 2019-03-15 14:57:00 167.6 cm [facility] Body weight 2019-03-15 14:57:00 84.482 kg [facility] BMI 2019-03-15 14:57:00 30.06 kg/m2 [facility] Systolic blood 2019-03-13 14:51:00 122 mm[Hg] [facility] Diastolic blood 2019-03-13 14:51:00 65 mm[Hg] [facility] Heart rate 2019-03-13 14:51:00 90 /min [facility] Body temperature 2019-03-13 14:51:00 36.39 Elida [facility] Respiratory rate 2019-03-13 14:51:00 16 /min [facility] Body height 2019-03-13 14:51:00 167.6 cm [facility] Body weight 2019-03-13 14:51:00 83.519 kg [facility] BMI 2019-03-13 14:51:00 29.72 kg/m2 [facility] Systolic blood 2019-03-06 14:12:00 112 mm[Hg] [facility] Diastolic blood 2019-03-06 14:12:00 52 mm[Hg] [facility]ive rsity of pressure [facility] Heart rate 2019-03-06 14:12:00 83 /min [facility] Body temperature 2019-03-06 14:12:00 36.72 Elida [facility] Respiratory rate 2019-03-06 14:12:00 16 /min [facility] Body height 2019-03-06 14:12:00 167.6 cm [facility] Body weight 2019-03-06 14:12:00 83.632 kg [facility] BMI 2019-03-06 14:12:00 29.76 kg/m2 [facility] Systolic blood 2019-02-20 15:54:00 117 mm[Hg] [facility] Diastolic blood 2019-02-20 15:54:00 76 mm[Hg] [facility] Heart rate 2019-02-20 15:54:00 83 /min [facility] Body temperature 2019-02-20 15:54:00 36.39 Elida [facility] ersity of [facility] Respiratory rate 2019-02-20 15:54:00 16 /min [facility] Body height 2019-02-20 15:54:00 167.6 cm [facility] Body weight 2019-02-20 15:54:00 81.364 kg [facility] BMI 2019-02-20 15:54:00 28.95 kg/m2 [facility] Procedures Procedure Date / Time Performing Clinician Source Performed POCT TEST 2022-04-02 19:44:00 Molina Pavon [facility] ASSIGNMENT OF BENEFITS 2022-04-02 19:12:09 [facility]REFUSAL FOR 2021-03-27 14:24:33 [facility] TREATMENT [facility] WOUND CULTURE 2021-03-25 22:12:00 Marilu Doran [facility] CBC WITH DIFF 2021-03-25 21:07:00 Marilu Doran [facility] GROUP B STREPTOCOCCUS BY 2021-03-25 21:07:00 Marilu Doran [facility] PCR [facility] SARS-COV-2 IGG 2021-03-25 21:07:00 Marilu Doran [facility] LAB ONLY COVID 2021-03-25 21:07:00 Marilu Doran [facility] INTERPRETATION [facility] NOTICE OF PRIVACY 2021-03-16 02:55:00 Doctor Unassigned, [facility] 2021-03-16 02:54:44 [facility] POCT URINALYSIS 2021-03-04 18:26:00 [facility] POCT URINALYSIS 2021-02-18 18:55:00 Molina Pavon [facility] POCT URINALYSIS 2021-02-04 18:19:00 Molina Pavon [facility] HB ABO GROUPING 2021-01-28 18:45:00 Molina Pavon [facility] TDAP VACCINE, >11 YRS, IM 2021-01-28 18:41:00 Molina Pavon [facility] POCT URINALYSIS 2021-01-28 18:28:00 Molina Pavon [facility] HIV 1/2 AG-AB WITH REFLEX 2021-01-28 18:21:00 Molina Pavon [facility] GALV ONLY - SYPHILIS 2021-01-28 18:21:00 [facility] GLUCOSE 1 HOUR POST 2021-01-15 20:04:00 Molina Pavon [facility] CBC WITH DIFF 2021-01-15 20:04:00 Molina Pavon [facility] POCT URINALYSIS 2021-01-07 19:04:00 Molina Pavon [facility] CONSENT/REFUSAL FOR 2020-12-18 23:48:00 [facility] TREATMENT [facility] POCT URINALYSIS 2020-12-10 19:37:00 Molina Pavon [facility] hospital POCT URINALYSIS 2020-11-12 18:59:00 Molina Pavon [facility] POCT URINALYSIS 2020-10-15 20:09:00 Molina Pavon [facility] hospital MEDICATION CORRESPONDENCE 2020-10-09 06:01:00 Doctor Unassigned, [facility] EXTERNAL PROVIDER RECORDS 2020-09-29 06:01:00 Doctor Unassigned, [facility] POCT URINALYSIS 2020-09-17 22:04:00 Molina Pavon [facility] acute hospital GC & CHLAMYDIA AMPLIFIED 2020-08-20 20:23:00 Molina Pavon [facility] ASSAY [facility] GLUCOSE 1 HOUR POST 2020-08-20 20:06:00 Molina Pavon [facility] CBC WITH DIFF 2020-08-20 20:06:00 Molina Pavon [facility] acute hospital RUBELLA SCREEN IGG 2020-08-20 20:06:00 Molina Pavon [facility] VZV ANTIBODY SCREEN 2020-08-20 20:06:00 Molina Pavon [facility] HEPATITIS B SURFACE 2020-08-20 20:06:00 Molina [facility]on [facility] HB ABO GROUPING 2020-08-20 20:06:00 Molina Pavon [facility] acute hospital HIV 1/2 AG-AB WITH REFLEX 2020-08-20 20:06:00 Molina Pavon [facility] GALV ONLY - SYPHILIS 2020-08-20 20:06:00 [facility] SARS-COV-2 IGG 2020-08-20 20:06:00 Molina Pavon [facility] hospital LAB ONLY COVID 2020-08-20 20:06:00 Molina Pavon [facility] INTERPRETATION [facility] POCT TEST 2020-08-20 18:57:00 Molina Pavon [facility] POCT URINALYSIS W/O 2020-08-20 18:57:00 Molina Pavon [facility] SPECIFIC GRAVITY [facility] FLU VACC ([id number]), 6+ 2020-06-04 20:53:58 Molina Pavon [facility] MONTHS, IM, QUAD [facility] [place] POCT TEST 2020-03-22 04:03:00 Lenin Samaniego [facility] COMP. METABOLIC PANEL 2020-03-22 04:02:00 Lenin Samaniego [facility] ([id number]) [facility] [place] CBC WITH DIFF 2020-03-22 04:02:00 Aden Lenin [facility] URINALYSIS 2020-03-22 04:02:00 Aden Lenin [facility] CONSENT/REFUSAL FOR 2020-03-22 03:39:54 [facility]REATMENT [facility] US PELVIS COMPLETE WITH 2020-02-26 22:53:36 Evangelist Bonner [facility] TRANSVAGINAL Medical [facility] COMP. METABOLIC PANEL 2020-02-26 22:12:00 Evangelist Bonner [facility] ([id number]) [facility] [place] CBC WITH DIFF 2020-02-26 22:12:00 Evangelist Bonner [facility] URINALYSIS 2020-02-26 22:12:00 Evangelist Bonner [facility] POCT TEST 2020-02-26 22:12:00 Evangelist Bonner [facility] ASSIGNMENT OF BENEFITS 2020-02-26 21:29:30 Doctor Unassigned, [facility] POCT TEST 2019-10-05 21:24:00 Molina Pavon [facility] DISCLOSURE AND CONSENT, 2019-10-05 06:01:00 Doctor Unassigned, [facility] SURGICAL [facility] PROCEDURES POCT TEST 2019-09-20 20:34:00 Molina Pavon [facility] GARDASIL 9 (HPV 9V) 2019-09-18 21:05:38 Molina Pavon [facility] VACCINE [facility] ASSIGNMENT OF BENEFITS 2019-04-19 00:26:57 Doctor Unassigned, Un [facility] NOTICE OF PRIVACY 2019-04-19 00:26:18 Doctor Unassnora, [facility] CONSENT/REFUSAL FOR 2019-04-19 00:25:59 Doctor Maritza[facility] TREATMENT [facility] URINE CULTURE 2019-04-17 18:50:00 Molina Pavon [facility] acute hospital ANTI-D R/O PANEL 2019-04-17 18:46:00 Molina Pavon [facility] WORKUP, BLOOD 2019-04-17 18:46:00 Molina Pavon [facility] POCT URINALYSIS 2019-04-17 18:15:00 Molina Pavon [facility] acute hospital ASSIGNMENT OF BENEFITS 2019-04-14 06:35:28 Doctor Unassigned, Un [facility] NOTICE OF PRIVACY 2019-04-14 06:34:52 Doctor Maritza, [facility] GALV ONLY - SYPHILIS 2019-03-29 20:14:00 [facility]ilu [facility]an [facility] IGG/IGM [facility] HIV 1/2 AG-AB WITH REFLEX 2019-03-29 19:53:00 Marilu Doran [facility] TDAP VACCINE, >11 YRS, IM 2019-03-29 19:23:41 Marilu Doran [facility] POCT URINALYSIS 2019-03-29 18:46:00 Molina Pavon [facility] acute hospital POCT URINALYSIS 2019-03-15 14:59:00 Molina Pavon [facility] acute hospital Encounters Start End Encounter Admission Attending Care Care Encounter Source Date/Time Date/Time Type Type Clinicians Facility Department ID 2021-06-08 Emergency [facility] [id number] Univers 16:54:59 ity [facility] 2021-06-08 Emergency [facility] [id number] Univers 13:57:39 ity [facility] 2021-06-07 Outpatient P [facility] AL[facility] [id number] Univers 19:02:11 ity [facility] 2021-06-07 Outpatient P [facility] [id number] Univers 19:01:53 ity of [facility] 2021-06-05 Emergency [facility] [id number] Univers 12:38:55 ity of [facility] 2021-06-05 Emergency [facility] [id number] Univers 08:01:28 ity [facility] 2022-04-08 2022-04-08 Outpatient R [facility] [id number] Univers 13:45:00 13:45:00 ity [facility] 2022-04-02 2022-04-02 Nurse Visit, [facility] Nurse [facility] 1.2 .840.114 [id number] Univers 13:30:00 13:45:00 Visit Molina Pavon CALL WORKER PERSON [facility].1.13. [facility] 4.2.7.2.686 Man as MATERNAL [phone] Med ical & CHILD [address] [place] [address] 2022-04-02 2022-04-02 Outpatient R LIBRADO [facility] [id number] Univers 13:30:00 13:30:00 MOLINA caraballo o f [facility] 2022-04-02 2022-04-02 Orders Doctor LUISA 1.2.840.114 [id number] Univers 00:00:00 00:00:00 Only Unassigned, JANNA 350.1.13.10 ity [facility] 4.2.7.2.686 Man as [phone] [address] 2021-05-28 2021-05-28 Outpatient R [facility] [id number] Univers 13:45:00 13:45:00 ity of [facility] 2021-05-19 2021-05-19 [facility] [id number] Univers 09:15:00 09:15:00 AMANDA juan ramonreid [facility] 2021-04-14 2021-04-14 Telephone Gonzalez MORAN 1.2.840.114 [id number] Univers 00:00:00 00:00:00 JANNA leyva 350.1.13.10 it y [facility] 4.2.7.2.686 [facility] [id number] [facility] [place] [facility] 013 Branch 2021-04-07 2021-04-09 Inpatient P [facility] [id number] Univers 21:59:00 13:51:00 HERON ilya [facility] 2021-04-07 2021-04-09 Hospital LUISA [place] 1.2.840.114 [id number] Univers 21:59:00 13:51:00 Encounter Heron Saba JANNA 350.1.13.10 ity [facility] 4.2.7.2.686 Man as [phone] [facility] [place] [facility] 134 Branch 2021-04-09 2021-04-09 [facility] [id number] Univers 13:00:00 13:00:00 MOLINA saba [facility] 2021-04-07 2021-04-08 Anesthesia Wyatt Cool 1.2.840 .114 [id number] Univers 22:51:00 06:50:00 Event Alessandro Kruse 350 .1.13.10 [facility] 4.2.7.2.686 Man as [id number] [facility] [place] [facility] 132 Branch 2021-04-01 2021-04-01 Out[facility] [id number] Univers 08:45:00 08:45:00 MOLINA saba [facility] 2021-03-29 2021-03-29 [facility] 1.2.840.114 [id number] Univers 00:00:00 00:00:00 Molina Kearney CALL WORKER PERSON 350.1.13.10 ity [facility] 4.2.7.2.686 Man as MATERNAL [id number] Med ical & CHILD 107 [facility] 2021-03-27 2021-03-27 Emergency , [facility] 1.2.522.318 [id number] 09:34:00 10:19:00 Miah Vasquez 350.1.13.10 [place] 4.2.7.2.686 [place] [id number] [facility] 2021-03-27 2021-03-27 Emergency John, [facility] 1.2.881.558 [id number] Univers 09:34:00 10:19:00 Miah Vasquez 350.1.13.10 i ty of [place] 4.2.7.2.686 [place] [id number] [facility] [place] [facility] 084 [place] 2021-03-27 2021-03-27 Orders Doctor LUISA 1.2.840.114 [id number] 00:00:00 00:00:00 Only Unassigned, JANNA 350.1.13.10 [facility] 4.2.7.2.686 [id number] 2021-03-27 2021-03-27 Orders Doctor LUISA 1.2.840.114 [id number] Univers 00:00:00 00:00:00 Only Unassigned, JANNA 350.1.13.10 ity of [facility]ten [facility] 4.2.7.2.686 Man as [id number] [address] 2021-03-25 2021-03-25 Routine Risk, Ynd-Pepvr-Wd/High [facility] 1. 2.840.114 [id number] Univers 15:32:35 16:37:00 Marilu Doran CALL WORKER PERSON 350.1.13.10 ity of Visit REGIONAL 4.2.7.2.686 Man as MATERNAL [id number] Med ical & CHILD 107 [facility] 2021-03-25 2021-03-25 Routine Risk, Qxn-Nuduu-En/High [facility] 1. 2.840.114 [id number] Univers 15:32:35 16:37:00 Marilu Doran CALL WORKER PERSON 350.1.13.10 ity of Visit REGIONAL 4.2.7.2.686 Man as MATERNAL [phone] Med ical & CHILD [address] [place] [address] 2021-03-25 2021-03-25 Outpatient R [facility] [id number] Univers 15:30:00 15:30:00 ity [facility] 2021-03-18 2021-03-18 [facility] [id number] Univers 13:30:00 13:30:00 MOLINA ity o f [facility] 2021-03-15 2021-03-16 Emergency [facility] 1.2.840.114 [id number] 22:55:00 00:07:00 Folus[place] Jayant [place] 350.1.13.10 [place] 4.2.7.2.686 [place] [id number] [facility] 2021-03-15 2021-03-16 [facility] 1.2.840.114 [id number] Univers 22:55:00 00:07:00 Cholo Jayant [place] 350.1.13.10 ity [facility] 4.2.7.2.686 [facility] [id number] [address] 2021-03-11 2021-03-11 Outpatient R [facility] [id number] Univers 13:30:00 13:30:00 ity [facility] 2021-03-04 2021-03-04 Routine Akinsipe, [facility] 1.2.882.468 [id number] Univers 13:16:42 13:49:49 Molina C CALL WORKER PERSON 350.1.13.10 ity of Visit REGIONAL 4.2.7.2.686 Man as MATERNAL [id number] [facility] ical & CHILD [address] [place] [address] 2021-03-04 2021-03-04 Routine Akinsipe, [facility] 1.2.791.575 [id number] 13:16:42 13:49:49 Molina C CALL WORKER PERSON 350.1.13.10 Visit REGIONAL 4.2.7.2.686 MATERNAL [id number] & CHILD [address] [place] [address] 2021-03-04 2021-03-04 [facility] [id number] Univers 13:15:00 13:15:00 MOLINA ity o f [facility] 2021-03-02 2021-03-02 Outpatient R [facility] [id number] Univers 14:30:00 14:30:00 ity [facility] 2021-02-25 2021-02-25 Outpatient R [facility] [id number] Univers 12:45:00 12:45:00 ity [facility] 2021-02-18 2021-02-18 Routine Akinsipe, [facility] 1.2.657.553 [id number] Univers 13:28:35 14:29:08 Molina C CALL WORKER PERSON 350.1.13.10 ity of Visit REGIONAL 4.2.7.2.686 Man as MATERNAL [id number] Med ical & CHILD [address] [place] [address] 2021-02-18 2021-02-18 Routine Akinsipe, [facility] 1.2.265.823 [id number] 13:28:35 14:29:08 Molina C CALL WORKER PERSON 350.1.13.10 Visit REGIONAL 4.2.7.2.686 MATERNAL [id number] & CHILD [address] [place] [address] 2021-02-18 2021-02-18 Outpatient R LIBRADO, [facility] [id number] Univers 13:15:00 13:15:00 MOLINA ity o [facility] 2021-02-11 2021-02-11 Outpatient R LIBRADO, [facility] [id number] Univers 15:45:00 15:45:00 MOLINA ity o [facility] 2021-02-11 2021-02-11 Nurse Visit, Ang-Rmchp Nurse [facility] 1.2 .840.114 [id number] Univers 13:10:22 13:25:22 Visit Pamelaanazoraida Molina Kearney CALL WORKER PERSON 350.1.13. 10 ity of REGIONAL 4.2.7.2.686 Man as MATERNAL [phone] [facility] & CHILD [address] [place] [address] 2021-02-11 2021-02-11 Outpatient R [facility] [id number] Univers 08:30:00 08:30:00 ity [facility] 2021-02-04 2021-02-04 Routine Akinsipe, [facility] 1.2.921.356 [id number] Univers 12:50:04 13:47:28 Molina C CALL WORKER PERSON 350.1.13.10 ity of Visit REGIONAL 4.2.7.2.686 Man as MATERNAL [id number] [facility] & CHILD [address] [place] [address] 2021-02-04 2021-02-04 Outpatient R [facility] [id number] Univers 12:45:00 12:45:00 ity of [facility] 2021-01-28 2021-01-28 Routine Akinsipe, [facility] 1.2.909.612 [id number] Univers 13:07:23 14:00:04 Molina C CALL WORKER PERSON 350.1.13.10 ity of Visit REGIONAL 4.2.7.2.686 Man as MATERNAL [phone] [facility] & CHILD [address] [place] [address] 2021-01-28 2021-01-28 [facility] [id number] Univers 13:00:00 13:00:00 MOLINA ity o f [facility] 2021-01-22 2021-01-22 Nurse Visit, [facility] Nurse [facility] 1.2 .840.114 [id number] Univers 13:32:06 13:56:46 Visit Molina Pavon CALL WORKER PERSON 350.1.13. 10 ity of REGIONAL 4.2.7.2.686 Man as MATERNAL [id number] [facility] & CHILD [address] [place] [address] 2021-01-22 2021-01-22 Outpatient R [facility] [id number] Univers 13:30:00 13:30:00 ity of [facility] 2021-01-16 2021-01-16 [facility] 1.2.840.114 [id number] Univers 00:00:00 00:00:00 Molina C CALL WORKER PERSON 350.1.13.10 ity of REGIONAL 4.2.7.2.686 Man as MATERNAL [id number] [facility] & CHILD [address] [place] [address] 2021-01-15 2021-01-15 Nurse Visit, Arvind Nurse [facility] 1.2 .840.114 [id number] Univers 13:44:54 14:08:48 Visit Molina Pavon CALL WORKER PERSON 350.1.13. 10 ity of REGIONAL 4.2.7.2.686 Man as MATERNAL [phone] [facility] & CHILD [address] [place] [address] 2021-01-15 2021-01-15 Outpatient R LIBRADO [facility] [id number] Univers 13:30:00 13:30:00 MOLINA caraballo o f [facility] 2021-01-14 2021-01-14 Outpatient R [facility] [id number] Univers 09:00:00 09:00:00 ity of [facility] 2021-01-14 2021-01-14 Telephone Librado [facility] 1.2.840.114 [id number] Univers 00:00:00 00:00:00 Molina Kearney CALL WORKER PERSON 350.1.13.10 ity of REGIONAL 4.2.7.2.686 Man as MATERNAL [id number] [facility] & CHILD [address] [place] [address] 2021-01-07 2021-01-07 Routine Librado [facility] 1.2.201.558 [id number] Univers 13:50:51 14:21:33 Molina Kearney CALL WORKER PERSON 350.1.13.10 ity of Visit REGIONAL 4.2.7.2.686 Man as MATERNAL [id number] [facility] & CHILD [address] [place] [address] 2021-01-07 2021-01-07 Outpatient R LIBRADO [facility] [id number] Univers 14:00:00 14:00:00 MOLINA caraballo o f [facility] 2021-01-01 2021-01-01 Nurse Visit, Arvind Nurse [facility] 1.2 .840.114 [id number] Univers 13:08:36 13:37:19 Visit Molina Pavon CALL WORKER PERSON 350.1.13. 10 ity of REGIONAL 4.2.7.2.686 Man as MATERNAL [id number] [facility] & CHILD [address] [place] [address] 2021-01-01 2021-01-01 Outpatient R [facility] [id number] Univers 13:30:00 13:30:00 ity of [facility] 2020-12-31 2020-12-31 Outpatient R [facility] [id number] Univers 13:30:00 13:30:00 ity of [facility] 2020-12-24 2020-12-24 Nurse Visit, Arvind Nurse [facility] 1.2 .840.114 [id number] Univers 14:21:35 14:59:58 Visit Molina Pavon CALL WORKER PERSON 350.1.13. 10 ity of [facility] 4.2.7.2.686 Man as MATERNAL [id number] [facility] & CHILD [address] [place] [address] 2020-12-24 2020-12-24 Outpatient R [facility] [id number] Univers 13:00:00 13:00:00 ity of [facility] 2020-12-18 2020-12-18 Hospital Farhat Clarkn [facility] 1.2.840.114 [id number] Univers 18:50:00 20:20:00 Encounter [place] 350.1.13.10 ity of [place] 4.2.7.2.686 [facility] [id number] [facility] [place] [facility] 083 [place] 2020-12-18 2020-12-18 Telephone Librado MOMARANDA 1.2.840.114 [id number] Univers 00:00:00 00:00:00 Molina Kearney CALL WORKER PERSON 350.1.13.10 ity of [facility] 4.2.7.2.686 Man as MATERNAL [id number] [facility] & CHILD [address] [place] [address] 2020-12-18 2020-12-18 Orders Doctor MORAN 1.2.840.114 [id number] Univers 00:00:00 00:00:00 Only Unassigned, JANNA 350.1.13.10 ity of [facility]ten [facility] 4.2.7.2.686 Man as [id number] [facility] [place] [facility] 009 [place] 2020-12-17 2020-12-17 Nurse Visit, Arvind Nurse [facility] 1.2 .840.114 [id number] Univers 13:44:33 14:05:24 Visit Molina Pavon CALL WORKER PERSON 350.1.13. 10 ity of REGIONAL 4.2.7.2.686 Man as MATERNAL [id number] [facility] & [address] 2020-12-17 2020-12-17 Numerical Control Programmer Ultrasound, [facility] 1.2 .840.114 [id number] Univers 13:10:05 13:40:05 Visit Gerardo Pettit CALL WORKER PERSON 350.1.13.10 ity of REGIONAL 4.2.7.2.686 Man as MATERNAL [id number] [facility] & CHILD [address] [place] [address] 2020-12-17 2020-12-17 Outpatient Freeman PAVON [facility] [id number] Univers 10:30:00 10:30:00 MOLINA connolly [facility] 2020-12-17 2020-12-17 Abstract Librado [facility] 1.2.840.114 [id number] Univers 00:00:00 00:00:00 Molina Kearney CALL WORKER PERSON 350.1.13.10 ity of REGIONAL 4.2.7.2.686 Man as MATERNAL [id number] [address] 2020-12-10 2020-12-10 Routine Librado [facility] 1.2.932.074 [id number] Univers 13:44:46 14:32:39 Molina Kearney CALL WORKER PERSON 350.1.13.10 ity of Visit REGIONAL 4.2.7.2.686 Man as MATERNAL [id number] [facility] & [address] 2020-12-10 2020-12-10 Outpatient R LIBRADO [facility] [id number] Univers 14:15:00 14:15:00 MOLINA connolly [facility] 2020-12-10 2020-12-10 Numerical Control Programmer Ultrasound, [facility] 1.2 .840.114 [id number] Univers 13:01:03 13:31:03 Visit Gerardo [place] CALL WORKER PERSON 350.1.13.10 ity of Clara Petit REGIONAL 4.2.7.2.686 [place] MATERNAL [id number] [facility] ical & CHILD 369 [facility] 2020-12-03 2020-12-03 Numerical Control Programmer Ultrasound, Tayopraveen [facility] 1.2 .840.114 [id number] Univers 10:42:41 12:12:49 Visit Gerardo [place] CALL WORKER PERSON 350.1.13.10 ity of Clara Petit [facility] 4.2.7.2.686 [place] MATERNAL [id number] [facility] ical & CHILD [address] [place] [address] 2020-12-03 2020-12-03 Outpatient P ELODIA PETTIT [facility] [id number] Univers 10:45:00 10:45:00 GERARDO caraballo [facility] 2020-12-03 2020-12-03 Nurse Visit, Arvind Nurse [facility] 1.2 .840.114 [id number] [facility] 10:22:01 10:42:50 Visit Molina Pavon CALL WORKER PERSON 350.1.13. 10 ity of [facility] 4.2.7.2.686 Man as MATERNAL [id number] [facility] ical & CHILD [address] [place] [address] 2020-12-03 2020-12-03 Abstract ELODIA Pavon 1.2.840.114 [id number] Univers 00:00:00 00:00:00 Molina Kearney CALL WORKER PERSON 350.1.13.10 ity of [facility] 4.2.7.2.686 Man as MATERNAL [phone] [facility] ical & CHILD 107 [facility] 2020-11-26 2020-11-26 Numerical Control Programmer [facility] 1.2 .840.114 [id number] Univers 13:20:09 13:50:09 Visit Gerardo [place] CALL WORKER PERSON 350.1.13.10 ity of [facility] 4.2.7.2.686 Man as MATERNAL [id number] [facility] ical & CHILD 369 [facility] 2020-11-26 2020-11-26 Nurse Visit, Arvind Nurse [facility] 1.2 .840.114 [id number] Univers 12:53:08 13:19:50 Visit Librado Molina Kearney CALL WORKER PERSON 350.1.13. 10 ity of REGIONAL 4.2.7.2.686 Man as MATERNAL [phone] [facility] ical & CHILD [address] [place] [address] 2020-11-26 2020-11-26 [facility] [id number] Univers 12:45:00 12:45:00 MOLINA ity o f [facility] 2020-11-26 2020-11-26 Abstract [facility] 1.2.840.114 [id number] Univers 00:00:00 00:00:00 Molina C CALL WORKER PERSON 350.1.13.10 ity of [facility] 4.2.7.2.686 Man as MATERNAL [id number] [facility] & CHILD [address] [place] [address] 2020-11-19 2020-11-19 [facility] 1.2 .840.114 [id number] Univers 13:24:06 13:52:49 Visit Molina Pavon CALL WORKER PERSON 350.1.13. 10 ity of [facility] 4.2.7.2.686 Man as MATERNAL [id number] [facility] & CHILD [address] [place] [address] 2020-11-19 2020-11-19 Numerical Control Programmer Ultrasound, Tayopraveen [facility] 1.2 .840.114 [id number] Univers 13:03:14 13:33:14 Visit Gerardo [place] CALL WORKER PERSON 350.1.13.10 ity of Magdy Knutson [facility] 4.2.7.2.686 [place] MATERNAL [phone] [facility] & CHILD 369 [facility] 2020-11-19 2020-11-19 Outpatient R [facility] [id number] Univers 13:30:00 13:30:00 ity of [facility] 2020-11-19 2020-11-19 Abstract Librado [facility] 1.2.840.114 [id number] Univers 00:00:00 00:00:00 Molina Kearney CALL WORKER PERSON 350.1.13.10 ity of REGIONAL 4.2.7.2.686 Man as MATERNAL [phone] [facility] & CHILD 107 [facility] 2020-11-14 2020-11-14 [facility] 1.2.840.114 [id number] Univers 00:00:00 00:00:00 Molina C CALL WORKER PERSON 350.1.13.10 ity of REGIONAL 4.2.7.2.686 Man as MATERNAL [id number] [facility] & CHILD [address] [place] [address] 2020-11-12 2020-11-12 Routine [facility] 1.2.780.307 [id number] Univers 13:46:03 15:02:34 Molina C CALL WORKER PERSON 350.1.13.10 ity of Visit REGIONAL 4.2.7.2.686 Man as MATERNAL [id number] [facility] & CHILD [address] [place] [address] 2020-11-12 2020-11-12 [facility] [id number] Univers 14:00:00 14:00:00 MOLINA ity o f [facility] 2020-11-12 2020-11-12 Numerical Control Programmer Ultrasound, [facility] 1.2 .840.114 [id number] Univers 13:12:59 13:42:59 Visit Gerardo [place]ett[place] CALL WORKER PERSON 350.1.13.10 ity of Alina Valle Sh[place] REGIONAL 4.2.7.2 .686 [place] MATERNAL [id number] [facility] ical & CHILD [address] [place] [address] 2020-11-05 2020-11-05 Numerical Control Programmer Ultrasound, [facility] 1.2 .840.114 [id number] Univers 12:57:18 13:27:18 Visit Gerardo Pettit CALL WORKER PERSON [id number] ity of REGIONAL [id number] Man as MATERNAL [phone] [facility] ical & CHILD [address] [place] [address] 2020-11-05 2020-11-05 Outpatient P [facility] [id number] Univers 13:00:00 13:00:00 ity of [facility] 2020-11-052020-11-05 [facility] 1.2.840.114 [id number] Univers 00:00:00 00:00:00 Molina [place] CALL WORKER PERSON [id number] ity of REGIONAL [id number] Man as MATERNAL [phone] [facility] & CHILD [address] [place] [address] 2020-10-28 2020-10-28 Patient Damaso [facility] 1.2.840.114 [id number] Univers 00:00:00 00:00:00 Outreach Rigo PRIMARY 350.1.13.10 i ty of [facility] [place].2.[place].2.[place] [phone] Ia dical [address] [place] 2020-10-15 2020-10-15 [facility]ine [facility] 1.2.591.332 [id number] Univers 13:53:52 14:39:37 Molina Kearney CALL WORKER PERSON 350.1.13.10 ity of Visit [facility] 4.2.7.2.686 Man as MATERNAL [phone] [facility] & CHILD [address] [place] [address] 2020-10-15 2020-10-15 [facility] [id number] Univers 14:00:00 14:00:00 MOLINA connolly f [facility] 2020-10-10 2020-10-10 Abstract [facility] 1.2.840.114 [id number] Univers 00:00:00 00:00:00 Molina Kearney CALL WORKER PERSON 350.1.13.10 ity of [facility] 4.2.7.2.686 Man as MATERNAL [phone] [facility] & CHILD [address] [place] [address] 2020-10-09 2020-10-09 Orders Doctor LUISA 1.2.840.114 [id number] Univers 00:00:00 00:00:00 Only Unassigned, JANNA 350.1.13.10 ity of [facility] 4.2.7.2.686 Man as [phone] [address] 2020-10-08 2020-10-08 Numerical Control Programmer Raquel Stoll Room [facility] 1.2. 840.114 [id number] Univers 15:03:35 15:48:35 Visit Fátima Carson CALL WORKER PERSON 350.1. 13.10 ity of REGIONAL 4.2.7.2.686 Man as MATERNAL [phone] Med ical & CHILD [address] [facility] 2020-10-08 2020-10-08 Numerical Control Programmer Lab, [facility] 1.2.840. 114 [id number] Univers 15:03:49 15:43:00 Visit Tennille Humphrey CALL WORKER PERSON 350.1.13. 10 ity of [facility] 4.2.7.2.686 Man as MATERNAL [phone] [facility] & CHILD [address] [facility] 2020-10-08 2020-10-08 Outpatient P [facility] [id number] Univers 14:00:00 14:00:00 ity of [facility] 2020-10-06 2020-10-06 [facility] 1.2.840.114 [id number] Univers 00:00:00 00:00:00 Molina Kearney CALL WORKER PERSON 350.1.13.10 ity of [facility] 4.2.7.2.686 Man as MATERNAL [phone] [facility] & CHILD [address] [place] [address] 2020-09-29 2020-09-29 Orders Doctor LUISA 1.2.840.114 [id number] Univers 00:00:00 00:00:00 Only Unassigned, JANNA 350.1.13.10 ity of [facility] 4.2.7.2.686 Man as [phone] [address] 2020-09-25 2020-09-25 Telephone [facility] 1.2.840.114 [id number] Univers 00:00:00 00:00:00 Molina Kearney CALL WORKER PERSON 350.1.13.10 ity of [facility] 4.2.7.2.686 Man as MATERNAL [id number] [facility] & CHILD [address] [place] [address] 2020-09-24 2020-09-24 [facility] [id number] Univers 15:00:00 15:00:00 MOLINA caraballo o f [facility] 2020-09-18 2020-09-18 Telephone [facility] 1.2.840.114 [id number] Univers 00:00:00 00:00:00 Molina C CALL WORKER PERSON 350.1.13.10 ity of REGIONAL 4.2.7.2.686 Man as MATERNAL [phone] [facility] & CHILD [address] [place] [address] 2020-09-17 2020-09-17 [facility] [id number] Univers 16:00:00 16:00:00 MOLINA caraballo o f [facility] 2020-09-17 2020-09-17 Routine [facility] 1.2.846.348 [id number] Univers 15:44:41 15:59:41 Molina C CALL WORKER PERSON 350.1.13.10 ity of Visit REGIONAL 4.2.7.2.686 Man as MATERNAL [phone] [facility] & [address] 2020-08-20 2020-08-20 Initial [facility] 1.2.842.001 [id number] Univers 12:55:28 14:19:34 Molina C CALL WORKER PERSON 350.1.13.10 ity of Visit REGIONAL 4.2.7.2.686 Man as MATERNAL [phone] [facility] & [address] 2020-08-20 2020-08-20 Outpatient R [facility] [id number] Univers 12:45:00 12:45:00 ity of [facility] 2020-06-04 2020-06-04 Office [facility] 1.2.142.740 [id number] Univers 15:42:24 16:35:24 Visit Molina C CALL WORKER PERSON 350.1.13.10 ity of REGIONAL 4.2.7.2.686 Man as MATERNAL [phone] [facility] & [address] 2020-06-04 2020-06-04 [facility] [id number] Univers 16:00:00 16:00:00 MOLINA juan ramony o f [facility] 2020-04-01 2020-04-01 Office [facility] 1.2.840.114 [id number] Univers 15:55:34 16:41:33 Visit Bella Millard CALL WORKER PERSON 350.1.13.10 ity of [facility] 4.2.7.2.686 Man as MATERNAL [phone] [facility] & CHILD [address] [place] [address] 2020-04-01 2020-04-01 [facility] [id number] Univers 15:45:00 15:45:00 BELLA saba [facility] 2020-03-24 2020-03-24 Telephone IVON Samaniego 1.2.840.114 [id number] Univers 00:00:00 00:00:00 Lenin HUERTA 350.1.13.10 [place] [phone] [address] 2020-03-21 2020-03-22 Emergency [facility] 1.2.840.114 [id number] Univers 22:44:00 01:28:00 Lenin Vasquez 350.1.13.10 i ty of [place].2.[place] [id number] [address] 2020-02-26 2020-02-26 Emergency [facility] 1.2.089.383 [id number] Univers 16:39:27 18:59:00 Evangelist Vasquez 350.1.13.10 i ty of [place].2.[place] [phone] [address] 2020-02-26 2020-02-26 Orders Doctor LUISA 1.2.840.114 [id number] Univers 00:00:00 00:00:00 Only Unassigned, JANNA 350.1.13.10 ity of [facility] 4.2.7.2.686 Man as [id number] [address] 2020-02-07 2020-02-07 Outpatient R LIBRADO [facility] [id number] Univers 13:00:00 13:00:00 MOLINA saba [facility] 2020-01-10 2020-01-10 Telephone [facility] 1.2.840.114 [id number] Univers 00:00:00 00:00:00 Molina C CALL WORKER PERSON 350.1.13.10 ity of REGIONAL 4.2.7.2.686 Man as MATERNAL [phone] [facility] & CHILD [address] [place] [address] 2020-01-07 2020-01-07 [facility] [id number] Univers 08:30:00 08:30:00 MOLINA ity o f [facility] 2019-12-12 2019-12-12 Telephone [facility] 1.2.840.114 [id number] Univers 00:00:00 00:00:00 Molina C CALL WORKER PERSON 350.1.13.10 ity of REGIONAL 4.2.7.2.686 Man as MATERNAL [phone] [address] 2019-11-16 2019-11-16 Outpatient R [facility] [id number] Univers 15:00:00 15:00:00 MOLINA ity o f [facility] 2019-10-26 2019-10-26 Telephone [facility] 1.2.840.114 [id number] Univers 00:00:00 00:00:00 Molina C CALL WORKER PERSON 350.1.13.10 ity of REGIONAL 4.2.7.2.686 Man as MATERNAL [phone] [address] 2019-10-05 2019-10-05 Office [facility] 1.2.328.668 [id number] Univers 14:55:55 15:52:08 Visit Moilna C CALL WORKER PERSON 350.1.13.10 ity of REGIONAL 4.2.7.2.686 Man as MATERNAL [phone] [facility] & [address] 2019-10-05 2019-10-05 Outpatient R [facility] [id number] Univers 15:00:00 15:00:00 MOLINA ity o f [facility] 2019-10-05 2019-10-05 Orders Doctor MORAN 1.2.840.114 [id number] [facility] 00:00:00 00:00:00 Only Unassigned, JANNA 350.1.13.10 ity of [facility] 4.2.7.2.686 Man as [phone] [address] 2019-09-20 2019-09-20 Office ELODIA Pavon 1.2.628.238 [id number] Univers 14:11:23 15:38:56 Visit Molina Kearney CALL WORKER PERSON 350.1.13.10 ity of [facility] 4.2.7.2.686 Man as MATERNAL [id number] [facility] & CHILD [address] [place] [address] 2019-09-18 2019-09-18 Nurse Visit, Arvind Nurse [facility] 1.2 .840.114 [id number] [facility] 14:05:15 14:49:01 Visit Molina Pvaon CALL WORKER PERSON 350.1.13. 10 ity of [address]686 Man as MATERNAL [id number] [facility] & CHILD [address] [place] [address] 2019-04-27 2019-04-27 Abstract ELODIA Pavon 1.2.840.114 [id number] Univers 00:00:00 00:00:00 Molina Kearney CALL WORKER PERSON 350.1.13.10 ity of [facility] 4.2.7.2.686 Man as MATERNAL [phone] [facility] & CHILD [address] [place] [address] 2019-04-24 2019-04-24 Nurse Visit, Arvind Nurse [facility] 1.2 .840.114 [id number] Univers 10:40:27 11:05:53 Visit Fátima Carson CALL WORKER PERSON 350.1. 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 13.10 ity of REGIONAL 4.2.7.2.686 Man as MATERNAL [phone] Med ical & CHILD [address] [facility] 2019-04-17 2019-04-24 Routine Librado, [facility] 1.2.486.429 [id number] Univers 13:01:05 08:40:10 Molina C CALL WORKER PERSON 350.1.13.10 ity of Visit REGIONAL 4.2.7.2.686 Man as MATERNAL [id number] [facility] & CHILD [address] [place] [address] 2019-04-18 2019-04-18 [facility] Bushra Conteh [facility] 1.2.840.114 [id number] [facility] 19:24:00 20:30:00 Encounter Jess Friend 350.1.13.1 0 ity of [place] 4.2.7.2.686 [facility] [id number] [address] 2019-04-14 2019-04-14 Hospital Phuc [facility] 1.2.840.114 [id number] Univers 01:31:00 02:40:00 Encounter Jess Vasquez 350.1.13.10 ity of [place] 4.2.7.2.686 [facility] [id number] [address] 2019-04-10 2019-04-10 Nurse Visit, Arvind Nurse [facility] 1.2 .840.114 [id number] Univers 14:01:50 14:41:50 Visit Molina Pavon CALL WORKER PERSON 350.1.13. 10 ity of REGIONAL 4.2.7.2.686 Man as MATERNAL [id number] [facility] & CHILD [address] [place] [address] 2019-04-03 2019-04-03 Nurse Visit, Arvind Nurse [facility] 1.2 .840.114 [id number] Univers 11:47:37 12:00:15 Visit Molina Pavon CALL WORKER PERSON 350.1.13. 10 ity of REGIONAL 4.2.7.2.686 Man as MATERNAL [phone] [facility] & CHILD [address] [place] [address] 2019-03-29 2019-03-29 Routine Risk, Znr-Pxcuv-Rm/High [facility] 1. 2.840.114 [id number] Univers 13:37:34 15:04:21 Marilu Doran Natasha CALL WORKER PERSON 350.1.13.10 ity of Visit REGIONAL 4.2.7.2.686 Man as MATERNAL [id number] [facility] & CHILD [address] [place] [address] 2019-03-27 2019-03-27 Nurse Visit, Prashanthnuvia Nurse [facility] 1.2 .840.114 [id number] Univers 10:09:07 10:24:12 Visit Molina Pavon CALL WORKER PERSON 350.1.13. 10 ity of REGIONAL 4.2.7.2.686 Man as MATERNAL [phone] [facility] & CHILD [address] [place] [address] 2019-03-20 2019-03-20 Routine Josef, [facility] 1.2.873.657 [id number] Univers 10:34:37 11:11:26 Amanda Maurice CALL WORKER PERSON 350.1.13.10 i ty of Visit REGIONAL 4.2.7.2.686 Man as MATERNAL [phone] [facility] & CHILD [address] [place] [address] 2019-03-20 2019-03-20 Nurse Visit, Arvind Nurse [facility] 1.2 .840.114 [id number] Univers 10:02:19 10:37:28 Visit Molina Pavon CALL WORKER PERSON 350.1.13. 10 ity of REGIONAL 4.2.7.2.686 Man as MATERNAL [id number] [facility] & CHILD [address] [place] [address] 2019-03-15 2019-03-15 Routine FacultyDaryn m [facility] 1.2 .840.114 [id number] Univers 09:37:58 10:18:32 Molina Pavno CALL WORKER PERSON 350.1.13 .10 ity of Visit REGIONAL 4.2.7.2.686 Man as MATERNAL [phone] [facility] & CHILD [address] [place] [address] 2019-03-13 2019-03-13 Nurse Visit, Arvind Nurse [facility] 1.2 .840.114 [id number] Univers 09:35:59 10:07:45 Visit Molina Pavon CALL WORKER PERSON 350.1.13. 10 ity of REGIONAL 4.2.7.2.686 Man as MATERNAL [id number] [facility] & CHILD [address] [place] [address] 2019-03-06 2019-03-06 Nurse Visit, TayoRmp Nurse [facility] 1.2 .840.114 [id number] Univers 09:03:54 09:49:10 Visit Molina Pavon CALL WORKER PERSON 350.1.13. 10 ity of [facility] 4.2.7.2.686 Man as MATERNAL [id number] [facility] & CHILD [address] [place] [address] 2019-02-20 2019-03-06 Routine Pamelazoraida, [facility] 1.2.347.783 [id number] Univers 10:45:20 09:40:49 Molina Kearney CALL WORKER PERSON 350.1.13.10 ity of Visit [facility] 4.2.7.2.686 Man as MATERNAL [phone] [address] Results Test Description Test Time Test Comments Results Result Comments Source POCT TEST 2022-04-02 19:44:00 Test Item Value Reference Range Interpretation Comme nts POCT PREG (test code = 1605) Negative On board controls acceptable with C Line (test code = 3574) Yes POCT PREG LOT # (test code = 3575) POCT PREG TEST DATE (test code = 3576) [facility]PTOCOCCUS BY [id number] 17:05:28 Test Item Value Reference Range Interpretation Comments Group B Streptococcus by PCR (test Positive Negative A code = 68215-5) Lab Interpretation (test code = Abnormal 75417-1) [facility] COVID [id number] 21:22:56COVID DMT InterpretationInterpretation/Recommendation:Molecular NAAT Tests for Active Infection withthe SARS-CoV-2 Virus:This patient has not been currently tested at [facility] for an active infection withthe SARS-CoV-2 [...] some patients who were infected with SARS-CoV-2 may never develop antibodies. While IgG antibodies to SARS-CoV-2 may provide some degree of immunity, thespecific duration and strength of immunity from SARS-CoV-2 IgG antibodies is highly variable betweenindividuals and is dependent on a variety of factors, including infection vs. vaccination response, initial infection severity, the strength of the patient's own immune system, and the variants to which the patient is exposed. Int erpretation Result Comments:These interpretation comments are based upon all COVID-19 testing the patient has had at [facility], including molecular NAAT testing (more commonly known as PCR testing and RapidID Now testing) and antibody testing. It does not take into account any testing that a patient has had outside of the [facility] medical record. [facility] LABORATORY SERVICESCOVID ResultsCoV-2 IgG (no units) ? ? Date ? Value ? 03/25/2021 ? Negative ? 08/20/2020 ? Negative ? ? ? [facility] LABORATORY SERVICESUnTyler County HospitalSARS-COV-2 IGG 2021-03-26 05:50:07 Test Item Value Reference Range Interpretation Comments CoV-2 IgG (test code Negative Negative Negativ e result = 75383-6) does not rule o ut acute SARS-CoV- 2 infection. Clinical correlation as well as molecul ar diagnostic test are recommended to rule out acu te infection if clinically indicated. BRIDGET (test code = BRIDGET) The CoV-2 antibody test should not be used for screening of donated blood. This test has been approved by FDA for emergency use. Lab Interpretation Normal (test code = 34094-6) [facility] WITH [id number] 05:04:06 Test Item Value Reference Range Interpretation [...] RDW-SD (test code = 39.3 fL 39.0-49.9 42775-4) RDW-CV (test code = 13.6 % 12.0-15.5 788-0) PLT (test code = See_Comment [Automated 777-3) message] The sy stem which generated this result transmitted reference range : 166 - 358 10*3/ ?L. The reference r ian was not used to interpret this result as normal/abnormal . MPV (test code = 9.4 fL 9.5-12.9 L 33316-8) NRBC/100 WBC (test See_Comment [Automat ed code = 8331699037) message] The system which generated this result transmitted reference range : 0.0 - 10.0 /100 WBCs. The refer ence range was not u sed to interpret th is result as normal/abnormal . NRBC x10^3 (test code <0.01 See_Comment [Auto mated = 8072626141) message] The s ystem which generated this result transmitted reference range : 10*3/?L. The reference range was not used to interpret this result as normal/abnormal . GRAN MAT (NEUT) % 74.5 % (test code = 770-8) IMM GRAN % (test code 0.70 % = 2707200748) LYMPH % (test code = 15.3 % 736-9) MONO % (test code = 8.8 % 5905-5) EOS % (test code = 0.5 % 713-8) BASO % (test code = 0.2 % 706-2) GRAN MAT x10^3(ANC) 6.09 10*3/uL 1.88-7.09 (test code = 0593027159) IMM GRAN x10^3 (test 0.06 10*3/uL 0.00-0.06 code = 2517665555) LYMPH x10^3 (test code 1.25 10*3/uL 1.32-3.29 L = 731-0) MONO x10^3 (test code 0.72 10*3/uL 0.33-0.92 = 742-7) EOS x10^3 (test code = 0.04 10*3/uL 0.03-0.39 711-2) BASO x10^3 (test code <0.03 0.01-0.07 = 704-7) Lab Interpretation Abnormal (test code = 49572-8) [facility] URINALYSIS W SPECIFIC [id number] 18:26:00 Test Item Value Reference Range Interpretation [...] POCT U APPEAR (test code = 3267) [facility] URINALYSIS W SPECIFIC [id number] 18:55:00 Test Item Value Reference Range Interpretation [...] POCT U APPEAR (test code = 3267) [facility] URINALYSIS W SPECIFIC [id number] 18:55:00 Test Item Value Reference Range Interpretation [...] POCT U APPEAR (test code = 3267) [facility] SPECIFIC [id number] 18:19:00 Test Item Value Reference Range Interpretation [...] POCT U APPEAR (test code = 3267) [facility] - SYPHILIS [id number] 14:13:27 Test Item Value Reference Range Interpretation Comments Syphilis IgG/IgM (test Non-reactive Non-reactive code = 57451-9) BRIDGET (test code = BRIDGET) Non-reactive - No serologic evidence of T. pallidum infection. Cannot exclude incubating or early syphilis. Submit a second specimen in 2-4 weeks if syphilis is clinically suspected. Equivocal - Further testing to follow. Reactive - Further testing to follow. Lab Interpretation (test Normal code = 39307-6) [facility]2 AG-AB WITH [id number] 06:30:45 Test Item Value Reference Range Interpretation Comments HIV Negative Negative Semi-quantitative (test code = 26927-2) BRIDGET (test code = Non-reactive for HIV-1 BRIDGET) antigen and HIV-1/HIV-2 antibodies. ?No laboratory evidence of HIV infection. ?Repeat in 2-4 weeks if acute HIV infection is suspected. [facility] CenterPrenatal Workup, Blood [id number] 04:17:21 Test Item Value Reference Range Interpretation Comments ABO & RH (test code B NEGATIVE Performe d at [facility] = 20) Laboratory Serv [facility] Blood [facility]3 [address] [facility] [address]Euea Free: [phone] A No. [id number] IAT (test code = Negative Performed a t [facility] 1185) Laboratory Serv [facility] Blood [facility] [address] [facility] [address]Pnky Free: [phone] A No. [id number] [facility] Center[facility] W SPECIFIC [id number] 18:28:00 Test Item Value Reference Range Interpretation [...] POCT U APPEAR (test code = 3267) [facility] CenterGlucose 1 Hour Post [id number] 06:46:48 Test Item Value Reference Range Interpretation Comments GLUC 1 HR (test code = 8096553268) 106 mg/dL 120-170 L Lab Interpretation (test code = Abnormal 55749-3) [facility] with [id number] 05:55:05 Test Item Value Reference Range Interpretation Comments WBC (test code = See_Comment [Automated 2190-2) message] The sy stem which generated this result transmitted reference range : 4.30 - 11.10 10*3/?L. The reference range was not used to interpret this result as normal/abnormal . RBC (test code = See_Comment L [Automated 979-8) message] The sy stem which generated this [...] RDW-SD (test code = 42.4 fL 39.0-49.9 14342-5) RDW-CV (test code = 13.5 % 12.0-15.5 788-0) PLT (test code = See_Comment [Automated 777-3) message] The sy stem which generated this result transmitted reference range : 166 - 358 10*3/ ?L. The reference r ian was not used to interpret this result as normal/abnormal . MPV (test code = 9.8 fL 9.5-12.9 83640-1) NRBC/100 WBC (test See_Comment [Automat ed code = 4348631739) message] The system which generated this result transmitted reference range : 0.0 - 10.0 /100 WBCs. The refer ence range was not u sed to interpret th is result as normal/abnormal . NRBC x10^3 (test code <0.01 See_Comment [Auto mated = 4187637119) message] The s ystem which generated this result transmitted reference range : 10*3/?L. The reference range was not used to interpret this result as normal/abnormal . GRAN MAT (NEUT) % 77.2 % (test code = 770-8) IMM GRAN % (test code 0.40 % = 5446608654) LYMPH % (test code = 12.6 % 736-9) MONO % (test code = 8.2 % 5905-5) EOS % (test code = 1.2 % 713-8) BASO % (test code = 0.4 % 706-2) GRAN MAT x10^3(ANC) 6.19 10*3/uL 1.88-7.09 (test code = 0377958907) IMM GRAN x10^3 (test 0.03 10*3/uL 0.00-0.06 code = 9051515878) LYMPH x10^3 (test code 1.01 10*3/uL 1.32-3.29 L = 731-0) MONO x10^3 (test code 0.66 10*3/uL 0.33-0.92 = 742-7) EOS x10^3 (test code = 0.10 10*3/uL 0.03-0.39 711-2) BASO x10^3 (test code 0.03 10*3/uL 0.01-0.07 = 704-7) Lab Interpretation Abnormal (test code = 32151-4) [facility] URINALYSIS W SPECIFIC [id number] 19:05:00 Test Item Value Reference Range Interpretation [...] POCT U APPEAR (test code = 3267) [facility] URINALYSIS W SPECIFIC [id number] 19:05:00 Test Item Value Reference Range Interpretation [...] POCT U APPEAR (test code = 3267) [facility] URINALYSIS W SPECIFIC [id number] 19:37:00 Test Item Value Reference Range Interpretation [...] POCT U APPEAR (test code = 3267) [facility] URINALYSIS W SPECIFIC [id number] 18:59:00 Test Item Value Reference Range Interpretation [...] POCT U APPEAR (test code = 3267) [facility] URINALYSIS W SPECIFIC [id number] 18:59:00 Test Item Value Reference Range Interpretation [...] POCT U APPEAR (test code = 3267) [facility] URINALYSIS W SPECIFIC [id number] 20:09:00 Test Item Value Reference Range Interpretation [...] POCT U APPEAR (test code = 3267) [facility] URINALYSIS W SPECIFIC [id number] 22:04:00 Test Item Value Reference Range Interpretation [...] POCT U APPEAR (test code = 3267) [facility] COVID [id number] 22:28:00COVID DMT InterpretationInterpretation/Recommendation: Molecular NAAT Tests for Active Infection with the SARS-CoV-2 Virus: This patient was never tested for an active infection with the SARS-CoV-2 virus that causes COVID-19 illness. If there is clinical suspicion for COVID-19 illness, molecular NAAT t esting (PCR, Rapid ID Now, etc.) is recommended. Tests for IgM and/or IgG Antibodies to SARS-CoV-2 Virus: The patient has tested negative for SARS-CoV-2 IgG antibodies. If the patient is asymptomatic, this most likely indicates that the patient does not have a history of prior COVID-19 illness. However, if the patient has symptoms suggestive of COVID-19 illness, retesting the patient for both IgM andIgG antibodies 3 weeks after symptom onset is recommended since IgM and IgG antibodies can arise nearly simultaneously in the serum within 2-3 weeks after illness onset in SARS-CoV-2 infections. Of note, some patients with a positive molecular NAAT test (PCR, Rapid ID Now, etc.) who are asymptomatic or only have mild illness do not generate antibodies. While rare, some patients never mount an antibody response to infectious agents, such as SARS-CoV-2, which can explain persistently negative antibodytests. At this time, it is unknown if the production of IgG antibodies indicates immunity to the SARS-CoV-2 virus and for how long IgG antibody production lasts. Interpretation Result Comments:These interpretation comments are based upon all COVID-19 testing the patient has had at [facility], including molecular NAAT testing (more commonly known as PCR testing and Rapid ID Now testing) and antibody testing. It does not take into account any testing that a patient has had outside of the [facility] medical record. [facility] LABORATORY SERVICESCOVID ResultsCoV-2 IgG (no units) ? ? Date ? Value ? 08/20/2020 ? Negative ? ? ? [facility]ORAT[facility] SERVICESUnTyler [facility] HospitalGC & CHLAMYDIA AMPLIFIED [id number] 19:13:00 Test Item Value Reference Range Interpretation Comments C. trachomatis Nucleic Negative Negative Acid (test code = 65961-6) N. gonorrhoeae Nucleic Negative Negative Acid (test code = 58438-7) BRIDGET (test code = BRIDGET) Reliable results [...] NAAT. Lab Interpretation Normal (test code = 64547-2) [facility] CenterRUBELLA SCREEN (NICHOLAS) [id number] 18:20:00 Test Item Value Reference Range Interpretation Comments Rubella screen IgG Positive Negative (test code = 0644170221) BRIDGET (test code = BRIDGET) Positive - Indicates the patient was exposed to Rubella through infection or vaccination.Negative - Indicates the patient could be susceptible to Rubella infection.Equivocal - A second specimen should be sent. [facility] ANTIBODY [id number] 18:20:00 Test Item Value Reference Range Interpretation Comments VZV IgG antibody Positive Negative (test code = 84616-4) BRIDGET (test code = BRIDGET) Positive - Indicates the patient was exposed to VZV through infection or vaccination.Negative - Indicates the patient could be susceptible to VZV infection.Equivocal - A second specimen should be sent for testing. [facility] ONLY - SYPHILIS [id number] 15:58:00 Test Item Value Reference Range Interpretation Comments Syphilis IgG/IgM (test Non-reactive Non-reactive code = 91520-9) BRIDGET (test code = BRIDGET) Non-reactive - No serologic evidence of T. pallidum infection. Cannot exclude incubating or early syphilis. Submit a second specimen in 2-4 weeks if syphilis is clinically suspected. Equivocal - Further testing to follow. Reactive - Further testing to follow. Lab Interpretation (test Normal code = 35446-4) [facility] CenterHIV 1/2 AG-AB WITH [id number] 07:44:00 Test Item Value Reference Range Interpretation Comments HIV Negative Negative Semi-quantitative (test code = 28575-7) BRIDGET (test code = Non-reactive for HIV-1 BRIDGET) antigen and HIV-1/HIV-2 antibodies. ?No laboratory evidence of HIV infection. ?Repeat in 2-4 weeks if acute HIV infection is suspected. [facility] CenterSARS-COV-2 [id number] 06:37:00 Test Item Value Reference Range Interpretation Comments CoV-2 IgG (test code Negative Negative Negativ e result = 93894-4) does not rule o ut acute SARS-CoV- 2 infection. Clinical correlation as well as molecul ar diagnostic test are recommended to rule out acu te infection if clinically indicated. BRIDGET (test code = BRIDGET) This test has been approved by FDA for emergency use. Lab Interpretation Normal (test code = 95346-1) [facility] CenterHEPATITIS B SURFACE [id number] 06:28:00 Test Item Value Reference Range Interpretation Comments HBsAg Semi-Quantitative (test code = Negative Negative 5195-3) [facility] CenterPRENATAL WORKUP, BLOOD [id number] 05:28:33 Test Item Value Reference Range Interpretation Comments ABO & RH (test code B NEGATIVE Performe d at [facility] = 20) Laboratory Serv [facility] Blood Bank3 [facility] [address]Gvcy Free: [phone] A No. [id number] IAT (test code = Negative Performed a t [facility] 1185) Laboratory Serv [facility] Blood [facility]3 [facility] [address]Rtpl Free: [phone] A No. [id number] [facility] CenterGLUCOSE 1 HOUR POST [id number] 05:10:00 Test Item Value Reference Range Interpretation Comments GLUC 1 HR (test code = 3371179002) 67 mg/dL 120-170 L Lab Interpretation (test code = Abnormal 55876-6) [facility] WITH [id number] 04:00:00 Test Item Value Reference Range Interpretation Comments WBC (test code = See_Comment [Automated 2139-2) message] The sy stem which generated this result transmitted reference range : 4.30 - 11.10 10*3/?L. The reference range was not used to interpret this result as normal/abnormal . RBC (test code = See_Comment [Automated 542-8) message] The sy stem which generated this [...] RDW-SD (test code = 47.8 fL 39-49.9 35204-5) RDW-CV (test code = 15.8 % 12-15.5 H 788-0) PLT (test code = See_Comment [Automated 777-3) message] The sy stem which generated this result transmitted reference range : 166 - 358 10*3/ ?L. The reference r ian was not used to interpret this result as normal/abnormal . MPV (test code = 10.1 fL 9.5-12.9 63575-3) NRBC/100 WBC (test See_Comment [Automat ed code = 9196880068) message] The system which generated this result transmitted reference range : 0.0 - 10.0 /100 WBCs. The refer ence range was not u sed to interpret th is result as normal/abnormal . NRBC x10^3 (test code <0.01 See_Comment [Auto mated = 3413947268) message] The s ystem which generated this result transmitted reference range : 10*3/?L. The reference range was not used to interpret this result as normal/abnormal . GRAN MAT (NEUT) % 60.4 % (test code = 770-8) IMM GRAN % (test code 0.20 % = 0239277699) LYMPH % (test code = 27.9 % 736-9) MONO % (test code = 8.4 % 5905-5) EOS % (test code = 2.1 % 713-8) BASO % (test code = 1.0 % 706-2) GRAN MAT x10^3(ANC) 3.80 10*3/uL 1.88-7.09 (test code = 2105157768) IMM GRAN x10^3 (test <0.03 0-0.06 code = 5040381935) LYMPH x10^3 (test code 1.75 10*3/uL 1.32-3.29 = 731-0) MONO x10^3 (test code 0.53 10*3/uL 0.33-0.92 = 742-7) EOS x10^3 (test code = 0.13 10*3/uL 0.03-0.39 711-2) BASO x10^3 (test code 0.06 10*3/uL 0.01-0.07 = 704-7) Lab Interpretation Abnormal (test code = 74103-8) [facility] [id number] 18:57:00 Test Item Value Reference Range Interpretation Comments POCT PREG (test code = 1605) Positive On board controls acceptable with C Yes Line (test code = 3574) POCT PREG LOT # (test code = 3575) POCT PREG TEST DATE (test code = 357) [facility] URINALYSIS W/O SPECIFIC [id number] 18:57:00 Test Item Value Reference Range Interpretation [...] code = 3257) Neg Negative - Negative [facility] [id number] 18:57:00 Test Item Value Reference Range Interpretation Comments POCT PREG (test code = 1605) Positive On board controls acceptable with C Yes Line (test code = 3574) POCT PREG LOT # (test code = 3575) POCT PREG TEST DATE (test code = 3576) [facility] URINALYSIS W/O SPECIFIC [id number] 18:57:00 Test Item Value Reference Range Interpretation [...] code = 3257) Neg Negative - Negative [facility] CenterUrinalysis2020-08-15 04:43:00 Test Item Value Reference Range Interpretation Comments APPEARANCE (test code = Cloudy Clear A 6760851238) COLOR (test code = Yellow Yellow 9278055684) PH (test code = 4.8-8.0 5965213009) SP GRAVITY (test code = 1.003-1.030 0535727526) GLU U QUAL (test code = Normal Normal 6300579081) BLOOD (test code = Negative Negative 2979972073) KETONES (test code = Negative Negative 6648735960) PROTEIN (test code = Negative Negative 2887-8) UROBILIN (test code = Normal Normal 8699780753) BILIRUBIN (test code = Negative Negative 0052954767) NITRITE (test code = Negative Negative 2248741011) LEUK SUZANNA (test code = Negative Negative 2732444674) RBC/HPF (test code = See_Comment [Autom ated message] 5573042697) The system [employer] generated this result transmitted ref erence range: 0 - 3 HP F. The reference range was not used to int erpret this result as normal/abnormal . WBC/HPF (test code = See_Comment [Autom ated message] 1723439726) The system [employer] generated this result transmitted ref erence range: 0 - 5 HP F. The reference range was not used to int erpret this result as normal/abnormal . BACTERIA (test code = Few Negative A 9262211996) SQ EPITH (test code = HPF 6629002705) Lab Interpretation (test Abnormal code = 47802-2) [facility] CenterComplete Metabolic [id number] 04:27:00 Test Item Value Reference Range Interpretation Comments NA (test code = 138 mmol/L 135-145 6032078841) K (test code = 3.8 mmol/L 3.5-5 3572538694) CL (test code = 104 mmol/L 98-108 3475047920) CO2 TOTAL (test code = 26 mmol/L 23-31 4531899856) AGAP (test code = 2-16 6854694623) BUN (test code = 13 mg/dL 7-23 3015511976) GLUCOSE (test code = 75 mg/dL 70-110 9098709162) CREATININE (test code 0.90 mg/dL 0.5-1.04 = 6353118491) TOTAL BILI (test code 0.1 mg/dL 0.1-1.1 = 8778297480) CALCIUM (test code = 9.7 mg/dL 8.6-10.6 8229015848) T PROTEIN (test code = 8.1 g/dL 6.3-8.2 8063671522) ALBUMIN (test code = 4.7 g/dL 3.5-5 8086550606) ALK PHOS (test code = 48 U/L 34-122 7258863931) ALTv (test code = 15 U/L 5-35 1742-6) AST(SGOT) (test code = 22 U/L 13-40 6810055765) eGFR Calculation mL/min/1.73m2 (Non-) (test code = 7014682753) eGFR Calculation mL/min/1.73m2 () (test code = 5916885905) BRIDGET (test code = BRIDGET) Association of [...] or urine or abnormalities in imaging tests). [facility] with [id number] 04:16:00 Test Item Value Reference Range Interpretation [...] RDW-SD (test code = 44.7 fL 39-49.9 27659-9) RDW-CV (test code = 15.8 % 12-15.5 H 788-0) PLT (test code = See_Comment [Automated 777-3) message] The sy stem which generated this result transmitted reference range : 166 - 358 10*3/ ?L. The reference r ian was not used to interpret this result as normal/abnormal . MPV (test code = 9.5 fL 9.5-12.9 44014-5) NRBC/100 WBC (test See_Comment [Automat ed code = 7226359790) message] The system which generated this result transmitted reference range : 0.0 - 10.0 /100 WBCs. The refer ence range was not u sed to interpret th is result as normal/abnormal . NRBC x10^3 (test code <0.01 See_Comment [Auto mated = 9396093597) message] The s ystem which generated this result transmitted reference range : 10*3/?L. The reference range was not used to interpret this result as normal/abnormal . GRAN MAT (NEUT) % 47.1 % (test code = 770-8) IMM GRAN % (test code 0.30 % = 5298209324) LYMPH % (test code = 38.6 % 736-9) MONO % (test code = 9.7 % 5905-5) EOS % (test code = 3.4 % 713-8) BASO % (test code = 0.9 % 706-2) GRAN MAT x10^3(ANC) 3.19 10*3/uL 1.88-7.09 (test code = 0664031515) IMM GRAN x10^3 (test <0.03 0-0.06 code = 2895621512) LYMPH x10^3 (test code 2.61 10*3/uL 1.32-3.29 = 731-0) MONO x10^3 (test code 0.66 10*3/uL 0.33-0.92 = 742-7) EOS x10^3 (test code = 0.23 10*3/uL 0.03-0.39 711-2) BASO x10^3 (test code 0.06 10*3/uL 0.01-0.07 = 704-7) Lab Interpretation Abnormal (test code = 84106-7) [facility] CenterPOCT [id number] 04:03:00 Test Item Value Reference Range Interpretation Comments POCT PREG (test code = 1605) Negative On board controls acceptable with present C Line (test code = 3574) POCT PREG LOT # (test code = 3575) [id number] POCT PREG TEST DATE (test 03/07/2021 code = 3576) Lab Interpretation (test code = Normal 35736-1) [facility] CenterUS PELVIS COMPLETE WITH [id number] 23:06:02 Unremarkable ultrasound of the uterus and right ovary. Left ovary could notbe visualized Preliminary Report Dictated by Resident: Milad Chávez MD., have reviewed this study and agreewith the abovereport.EXAM: US PELVIS COMPLETE WITH TRANSVAGINAL HISTORY: 19 years -old Female with pelvic pain . LMP = 02/05/2020. n TECHNIQUE: Transabdominal and transvaginal ultrasound imaging ofthe pelviswas performed including color Doppler evaluation. Doctor Naturopathic imageswere obtained for the record. COMPARISON: None FINDINGS: Uterus: The uterus is normal in size, 3.8 x 4.6 x 10.0 cm. The myometrium ishomogenous. No focal lesion is detected. The endometrium is normal inappearance. Endometrial thickness measures 7.0 mm. The cervix isunremarkable. Right Adnexa:Ovary size: 2.4 x 1.7 x 1.5 cmOvary appearance: Few small follicles.Other: No mass. Left Adnexa:The left ovary is nonvisualized. Cu l-de-sac: Small amount of fluid is noted within the cul-de-sac, likelyphysiologic. [facility], Radiant Results Inft User - 02/26/2020 6:07 PM CDTEXAM: US PELVIS COMPLETE WITH TRANSVAGINALHISTORY: 19 years -old Female with pelvic pain . LMP = 02/05/2020. [id number]: Transabdominal and transvaginal ultraso und imaging of the pelviswas performed including color Doppler evaluation. Doctor Naturopathic imageswereobtained for the record.COMPARISON: NoneFINDINGS:Uterus: The uterus is normal in size, 3.8 x 4.6 x 10.0 cm. The myometrium ishomogenous. No focal lesion is detected. The endometrium is normal inappearance. Endometrial thickness measures 7.0 mm. The cervix isunremarkable.Right Adnexa:Ovary size: 2.4 x 1.7 x 1.5 cmOvary appearance: Few small follicles.Other: No mass.Left Adnexa:The left ovary is nonvisualized. Cul-de-sac: Small amount of fluid is noted within the cul-de-sac, likelyphysiologic. IMPRESSIONUnremarkable ultrasound of the uterus and right ovary. Left ovary could notbe visualizedPreliminary Report Dictated by Resident: Milad Liu MD., have reviewed this study and agree with the abovereport.[facility]. METABOLIC PANEL (15257) 2020-02-26 22:42:00 Test Item Value Reference Range Interpretation Comments NA (test code = 138 mmol/L 135-145 7973761336) K (test code = 4.3 mmol/L 3.5-5 3864511006) CL (test code = 107 mmol/L 98-108 3280768055) CO2 TOTAL (test code = 23 mmol/L 23-31 5552228742) AGAP (test code = 2-16 2564443647) BUN (test code = 14 mg/dL 7-23 5727742966) GLUCOSE (test code = 93 mg/dL 70-110 5888353690) CREATININE (test code 0.75 mg/dL 0.5-1.04 = 3827613421) TOTAL BILI (test code 0.3 mg/dL 0.1-1.1 = 6459816780) CALCIUM (test code = 9.8 mg/dL 8.6-10.6 9223806764) T PROTEIN (test code = 7.9 g/dL 6.3-8.2 4952912266) ALBUMIN (test code = 4.7 g/dL 3.5-5 7731740366) ALK PHOS (test code = 41 U/L 34-122 9761941302) ALTv (test code = 12 U/L 5-35 1742-6) AST(SGOT) (test code = 19 U/L 13-40 4692413049) eGFR Calculation mL/min/1.73m2 (Non-) (test code = 9409969444) eGFR Calculation mL/min/1.73m2 () (test code = 0388811101) BRIDGET (test code = BRIDGET) Association of [...] or urine or abnormalities in imaging tests). [facility] CenterURINALYSIS2020-07-21 22:32:00 Test Item Value Reference Range Interpretation Comments APPEARANCE (test code = Hazy Clear A 4836196976) COLOR (test code = Yellow Yellow 7556257735) PH (test code = 4.8-8.0 7209783631) SP GRAVITY (test code = 1.003-1.030 6792454984) GLU U QUAL (test code = Normal Normal 6966537813) BLOOD (test code = Negative Negative INTERFERE NCE FROM 2184247975) ASCORBIC ACID M AY CAUSE FALSE NEG ATIVE RESULT KETONES (test code = Negative Negative 0229499855) PROTEIN (test code = Negative Negative 2887-8) UROBILIN (test code = Normal Normal 0199182910) BILIRUBIN (test code = Negative Negative 4543456943) NITRITE (test code = Negative Negative 1536143844) LEUK SUZANNA (test code = Negative Negative 0835112155) RBC/HPF (test code = See_Comment [Autom ated message] 1597341694) The system [employer] generated this result transmitted ref erence range: 0 - 3 HP F. The reference range was not used to int erpret this result as normal/abnormal . WBC/HPF (test code = See_Comment [Autom ated message] 4985052915) The system [employer] generated this result transmitted ref erence range: 0 - 5 HP F. The reference range was not used to int erpret this result as normal/abnormal . BACTERIA (test code = Few Negative A 6076152686) MUCOUS (test code = Slight Negative LPF A 7390949302) SQ EPITH (test code = HPF 4094555107) Lab Interpretation (test Abnormal code = 87901-1) [facility] WITH [id number] 22:23:00 Test Item Value Reference Range Interpretation [...] RDW-SD (test code = 42.4 fL 39-49.9 36844-0) RDW-CV (test code = 15.4 % 12-15.5 788-0) PLT (test code = See_Comment [Automated 777-3) message] The sy stem which generated this result transmitted reference range : 166 - 358 10*3/ ?L. The reference r ian was not used to interpret this result as normal/abnormal . MPV (test code = 9.4 fL 9.5-12.9 L 43739-8) NRBC/100 WBC (test See_Comment [Automat ed code = 5726041350) message] The system which generated this result transmitted reference range : 0.0 - 10.0 /100 WBCs. The refer ence range was not u sed to interpret th is result as normal/abnormal . NRBC x10^3 (test code <0.01 See_Comment [Auto mated = 2795413125) message] The s ystem which generated this result transmitted reference range : 10*3/?L. The reference range was not used to interpret this result as normal/abnormal . GRAN MAT (NEUT) % 57.4 % (test code = 770-8) IMM GRAN % (test code 0.20 % = 3896951581) LYMPH % (test code = 27.8 % 736-9) MONO % (test code = 10.2 % 5905-5) EOS % (test code = 3.4 % 713-8) BASO % (test code = 1.0 % 706-2) GRAN MAT x10^3(ANC) 3.38 10*3/uL 1.88-7.09 (test code = 4081819350) IMM GRAN x10^3 (test <0.03 0-0.06 code = 3218643910) LYMPH x10^3 (test code 1.64 10*3/uL 1.32-3.29 = 731-0) MONO x10^3 (test code 0.60 10*3/uL 0.33-0.92 = 742-7) EOS x10^3 (test code = 0.20 10*3/uL 0.03-0.39 711-2) BASO x10^3 (test code 0.06 10*3/uL 0.01-0.07 = 704-7) Lab Interpretation Abnormal (test code = 59937-5) [facility] [id number] 22:12:00 Test Item Value Reference Range Interpretation Comments POCT PREG (test code = 1605) negative On board controls acceptable with C present Line (test code = 3574) Lab Interpretation (test code = Normal 29534-1) [facility] [id number] 21:24:00 Test Item Value Reference Range Interpretation Comments POCT PREG (test code = 1605) Negative On board controls acceptable with C Yes Line (test code = 3574) POCT PREG LOT # (test code = 3575) POCT PREG TEST DATE (test code = 3576) [facility] [id number] 21:24:00 Test Item Value Reference Range Interpretation Comments POCT PREG (test code = 1605) Negative On board controls acceptable with C Yes Line (test code = 3574) POCT PREG LOT # (test code = 3575) POCT PREG TEST DATE (test code = 3576) [facility]PO[facility] [id number] 20:36:00 Test Item Value Reference Range Interpretation Comments POCT PREG (test code = 1605) Negative On board controls acceptable with C Yes Line (test code = 3574) POCT PREG LOT # (test code = 3575) POCT PREG TEST DATE (test code = 3576) [facility]PO[facility] [id number] 20:36:00 Test Item Value Reference Range Interpretation Comments POCT PREG (test code = 1605) Negative On board controls acceptable with C Yes Line (test code = 3574) POCT PREG LOT # (test code = 3575) POCT PREG TEST DATE (test code = 3576) [facility] CenterURINE [id number] 12:23:00 Test Item Value Reference Range Interpretation Comments URINE CULTURE (test > 100,000 CFU/mL mixed code = 630-4) aerobic organisms - suggests endogenous microbial contamination [facility] [id number] 12:23:00 Test Item Value Reference Range Interpretation Comments URINE CULTURE (test > 100,000 CFU/mL mixed code = 630-4) aerobic organisms - suggests endogenous microbial contamination [facility] CenterANTI-D R/O [id number] 10:48:29 Test Item Value Reference Range Interpretation Comments ANTIBODY (test Anti-D Probable RhIg recei osiel code = 683) RhIg 03/29/19.Perform ed at [facility] Blood [address] [address]Nzdo Free: [phone] A No. [id number] [facility] CenterANTI-D R/O [id number] 10:48:29 Test Item Value Reference Range Interpretation Comments ANTIBODY (test Anti-D Probable RhIg recei osiel code = 683) RhIg 03/29/19.Perform ed at [facility] Blood [address] [place] [address]Qsee Free: [phone] A No. [id number] [facility]OD [id number] 08:48:27 Test Item Value Reference Range Interpretation Comments ABO & RH (test code B NEGATIVE Performe d at [facility] = 20) Laboratory [facility] Blood Bank[address] [place] [address]Nwoi Free: [phone] A No. [id number] IAT (test code = Positive Performed a t [facility] 1185) Laboratory [facility] Blood [address] [place] [address]Hman Free: [phone] A No. [id number] [facility] CenterPRENATAL WORKUP, BLOOD [id number] 08:48:27 Test Item Value Reference Range Interpretation Comments ABO & RH (test code B NEGATIVE Performe d at [facility] = 20) Laboratory [facility] Blood [address] [address]Dyoc Free: [phone] A No. [id number] IAT (test code = Positive Performed a t [facility] 1185) Laboratory [facility] Blood [address] [address]Qhpi Free: [phone] A No. [id number] [facility] CenterPORI URINALYSIS W SPECIFIC [id number] 18:15:00 Test Item Value Reference Range Interpretation [...] POCT U APPEAR (test code = 3267) [facility]PO[facility] W SPECIFIC [id number] 18:15:00 Test Item Value Reference Range Interpretation [...] POCT U APPEAR (test code = 3267) [facility] Center[facility] W SPECIFIC [id number] 18:15:00 Test Item Value Reference Range Interpretation [...] POCT U APPEAR (test code = 3267) [facility] CenterGALV ONLY - SYPHILIS [id number] 14:40:00 Test Item Value Reference Range Interpretation Comments Syphilis IgG/IgM (test Non-reactive Non-reactive code = 83018-9) BRIDGET (test code = BRIDGET) Non-reactive - No serologic evidence of T. pallidum infection. Cannot exclude incubating or early syphilis. Submit a second specimen in 2-4 weeks if syphilis is clinically suspected.Equivocal - Further testing to follow.Reactive - Further testing to follow. Lab Interpretation (test Normal code = 56451-1) [facility] CenterHIV 1/2 AG-AB WITH [id number] 11:17:00 Test Item Value Reference Range Interpretation Comments HIV Negative Negative Semi-quantitative (test code = 19494-9) BRIDGET (test code = Non-reactive for HIV-1 BRIDGET) antigen and HIV-1/HIV-2 antibodies.?No laboratory evidence of HIV infection.?Repeat in 2-4 weeks if acute HIV infection is suspected. [facility] URINALYSIS W SPECIFIC [id number] 18:48:00 Test Item Value Reference Range Interpretation [...] POCT U APPEAR (test code = 3267) [facility] URINALYSIS W SPECIFIC [id number] 14:59:00 Test Item Value Reference Range Interpretation [...] POCT U APPEAR (test code = 3267) [facility]"
[2022-08-18] MEDS ORDERED: IBUPROFEN 400 MG TAB ONE (23:01)
--- NOTE | 2022-08-18 23:07 | ER ---
Nurse's Notes [facility] Name: Jazmin Lott Age: 21 yrs Sex: Female : 2000 Arrival Date: 08/18/2022 Time: 22:15 Bed DIS3 Private MD: Diagnosis: Dental caries, unspecified;Dentalgia Presentation: 08/18 22:54 Chief complaint: Patient states: "I feel like my tooth really hurts when I brush my tw5 teeth where I had the root canal 7 years ago.". Coronavirus screen: Vaccine status: Patient reports being unvaccinated. Ebola Screen: Patient negative for fever greater than or equal to 101.5 degrees Fahrenheit, and additional compatible Ebola Virus Disease symptoms Patient denies exposure to infectious person. Patient denies travel to an Ebola-affected area in the 21 days before illness onset. Initial Sepsis Screen: Does the patient meet any 2 criteria? No. Patient's initial sepsis screen is negative. Does the patient have a suspected source of infection? No. Patient's initial sepsis screen is negative. Risk Assessment: Do you want to hurt yourself or someone else? Patient reports no desire to harm self or others. Onset of symptoms is unknown. 22:54 Method Of Arrival: Ambulatory tw5 22:54 Acuity: ADEN 5 tw5 Triage Assessment: 22:55 General: Appears in no apparent distress. Behavior is calm, cooperative, appropriate tw5 for age. Pain: Pain currently is 2 out of 10 on a pain scale. EENT: Reports pain. NURSE ADVOCATE: 22:55 LMP 08/18/2022 tw5 Historical: - Allergies: 22:55 Doxycycline; tw5 - Home Meds: 22:55 None [Active]; tw5 - PMHx: 22:55 pelvic inflammatory disease; tw5 - PSHx: 22:55 None; tw5 - Immunization history:: Flu vaccine is not up to date. - Social history:: Smoking status: Reported history of juuling and/or vaping. - Family history:: not pertinent. - Hospitalizations: : No recent hospitalization is reported. Screenin:56 [facility] ED Fall Risk Assessment (Adult) History of falling in the last 3 months, tw5 including since admission. Abuse screen: Denies threats or abuse. Denies injuries from another. Nutritional screening: No deficits noted. Tuberculosis screening: No symptoms or risk factors identified. Assessment: 22:56 General: Appears in no apparent distress. Behavior is calm, cooperative, appropriate tw5 for age. 23:10 Reassessment: Patient is alert, oriented x 3, equal unlabored respirations, skin bb warm/dry/pink. pt verbalized understanding of and agrees to plan of care discharge instructions given pt ambulated with steady gait to exit. Vital Signs: 22:54 BP 111 / 67; Pulse 86; Resp 18; Temp 98.6; Pulse Ox 100% ; Weight 79.38 kg; Height 5 tw5 ft. 6 in. (167.64 cm); Pain 2/10; 22:54 Body Mass Index 28.25 (79.38 kg, 167.64 cm) tw5 ED Course: 22:15 Patient arrived in ED. ja2 22:25 Alhaji Croft MD is Attending Physician. rn 22:55 Triage completed. tw5 22:55 Arm band placed on. tw5 22:56 Patient has correct armband on for positive identification. tw5 22:56 No provider procedures requiring assistance completed. Patient did not have IV access tw5 during this emergency room visit. Administered Medications: 23:01 Drug: Clindamycin 300 mg Route: PO; tw5 23:01 Follow up: Response: No adverse reaction tw5 23:09 Follow up: Response: No adverse reaction bb 23:01 Drug: Motrin (ibuprofen) 800 mg Route: PO; tw5 23:01 Follow up: Response: No adverse reaction tw5 23:09 Follow up: Response: No adverse reaction bb Medication: 22:56 VIS not applicable for this client. tw5 Outcome: 23:06 Discharge ordered by . rn 23:10 Discharged to home ambulatory. bb 23:10 Condition: stable 23:10 Discharge instructions given to patient, Instructed on discharge instructions, follow up and referral plans. no driving heavy equipment, medication usage, Demonstrated understanding of instructions, follow-up care, medications, Prescriptions given X 3. 23:10 Patient left the ED. bb Signatures: Glenys Villalta RN Alhaji Warner MD MD rn Alexander, Jessica ja2 Wood, Tiffany tw5
--- NOTE | 2022-08-18 23:07 | EDPHYS ---
Physician Documentation [facility] Name: Jazmin Lott Age: 21 yrs Sex: Female : 2000 Arrival Date: 08/18/2022 Time: 22:15 Bed DIS3 Private MD: ED Physician Alhaji Croft HPI: 08/18 23:01 This 21 yrs old Female presents to ER via Ambulatory with complaints of Toothache. rn 23:01 The patient presents with bleeding, pain. The problem is located in the left upper rn premolar. Onset: The symptoms/episode began/occurred today. Duration: The symptoms are continuous. Modifying factors: The symptoms are alleviated by nothing, the symptoms are aggravated by chewing. Associated signs and symptoms: Pertinent negatives: fever, inability to eat. Severity of symptoms: At their worst the symptoms were moderate, in the emergency department the symptoms have improved. The patient has experienced similar episodes in the past. The patient has not recently seen a physician. Pt reports pain at site of previous root canal, left upper premolar region. No trauma. No fever. . 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 - Social history:: Smoking status: Reported history of juuling and/or vaping. - Family history:: not pertinent. - Hospitalizations: : No recent hospitalization is reported. ROS: 23:01 Constitutional: Negative for fever, chills, and weight loss, ENT: + left upper premolar rn pain and subjective swelling Exam: 23:01 Constitutional: This is a well developed, well nourished patient who is awake, alert, rn and in no acute distress. ENT: Poor dentition, + mild inflammation along gingivla surface of left upper premolar where previous root canal and cap is located. No facial swelling noted. No purulence. Vital Signs: 22:54 BP 111 / 67; Pulse 86; Resp 18; Temp 98.6; Pulse Ox 100% ; Weight 79.38 kg; Height 5 tw5 ft. 6 in. (167.64 cm); Pain 2/10; 22:54 Body Mass Index 28.25 (79.38 kg, 167.64 cm) MDM: 22:26 Patient medically screened. rn 23:01 Differential diagnosis: dental caries, gingivitis, dental abscess. Data reviewed: vital rn signs, nurses notes, and as a result, I will discharge patient. I considered the following discharge prescriptions or medication management in the emergency department I discussed and recommended Over The Counter medications. Test considered but Not performed: Other Details Considered CT of face but no evidence of periorbital cellulitis or abscess. Counseling: I had a detailed discussion with the patient and/or guardian regarding: the historical points, exam findings, and any diagnostic results supporting the discharge/admit diagnosis, the need for outpatient follow up, to return to the emergency department if symptoms worsen or persist or if there are any questions or concerns that arise at home. Special discussion: I discussed with the patient/guardian in detail that at this point there is no indication for admission to the hospital. It is understood, however, that if the symptoms persist or worsen the patient needs to return immediately for re-evaluation. Based on the history and exam findings, there is no indication for further emergent testing or inpatient evaluation. I discussed with the patient/guardian the need to see a dentist for further evaluation of the symptoms. Administered Medications: 23: Drug: Clindamycin 300 mg Route: PO; 23:01 Follow up: Response: No adverse reaction 23:09 Follow up: Response: No adverse reaction bb 23: Drug: Motrin (ibuprofen) 800 mg Route: PO; 23:01 Follow up: Response: No adverse reaction :09 Follow up: Response: No adverse reaction bb Disposition Summary: 08/18/22 23:06 Discharge Ordered Location: Home rn Problem: new rn Symptoms: have improved rn Condition: Stable rn Diagnosis - Dental caries, unspecified rn - Dentalgia rn Followup: rn - With: Private Physician - When: As needed - Reason: Recheck today's complaints, Re-evaluation by your physician Discharge Instructions: - Discharge Summary Sheet rn - Dental Caries, Adult rn - Dental Pain rn Forms: - Medication Reconciliation Form rn - Thank You Letter rn - Antibiotic rn x ray - Prescription Opioid Use rn Prescriptions: - Clindamycin HCl 300 mg Oral Capsule - take 1 capsule by ORAL route every 6 hours for 10 days; 40 capsule; Refills: 0, rn Product Selection Permitted - Ibuprofen 800 mg Oral Tablet - take 1 tablet by ORAL route every 12 hours As needed take with food; 20 tablet; rn Refills: 0, Product Selection Permitted - Tramadol 50 mg Oral Tablet - take 1 tablet by ORAL route every 8 hours as needed; 12 tablet; Refills: 0, rn Product Selection Permitted Signatures: Alhaji Croft MD MD rn Wood, Tiffany 5 Glenys Villalta RN bb
[2022-08-18 23:14] VITALS: BP 111/67; TEMP 98.6; O2SAT 100
== END 2022-08-18 23:10 | disposition home or self-care (01) ==
LOC: ER 22:11
DX: K02.9 Dental caries, unspecified (principal); Z88.1 Allergy status to other antibiotic agents
CPT/HCPCS: 99283

== ENCOUNTER 2022-12-02 15:43 | Emergency (ER) | payer OTHER ==
--- OUTSIDE RECORDS SUMMARY | 2022-12-02 16:02 | XMS REPORT | Continuity of Care Document ---
:2000 Author Organization [facility] t Address [address] [facility] [address] [place] [address] Care Team Providers Name Role Phone Molina Oviedo Primary Care Physician [phone] Visit, Arvind Nurse Attending Clinician Unavailable Molina Oviedo Attending Clinician MOLINA PAVON Attending Clinician Unavailable Doctor Unassigned, Binger Attending Clinician Unavailable AMANDA BAHENA Attending Clinician Unavailable Jacquelyn Peace MD Attending Clinician [phone] HERON HADLEY Attending Clinician Unavailable Heron Hadley MD Attending Clinician Wyatt Cool DO Attending Clinician Alessandro Kruse MD Attending Clinician [phone] Miah John DO Attending Clinician RiskArvindGnt-Vhapo-Dh/High Attending Clinician Unavailable Marilu Chatman Attending Clinician Cholo Fields Attending Clinician Eduardo PAYNE, Evangelist Attending Clinician Ultrasound, [facility] Attending Clinician Unavailable Gerardo Pettit MD Attending Clinician Clara Petit MD Attending Clinician GERARDO PETTIT Attending Clinician Unavailable Magdy Knutson MD Attending Clinician Alina Valle MD, Fátima Attending Clinician [phone] Rigo Petit DO Attending Clinician 1, [facility] Attending Clinician Unavailable Lab, [facility] Attending Clinician Unavailable [facility], Tennille Kaur Attending Clinician [phone] Francis BARRAGANP, Bella Millard Attending Clinician BELLA BLANCO Attending Clinician Unavailable Aden BARRAGANP, Lenin Attending Clinician Evangelist Schulz R Attending Clinician Bushra Conteh MD Attending Clinician Jess Friend MD Attending Clinician Josef ESCOBAR, Amanda Richards Attending Clinician Carmelina, [facility]aryn [facility] Attending Clinician Unavailable EVANGELIST CLARK Admitting Clinician Unavailable HERON HADLEY Admitting Clinician Unavailable Heron Hadley MD Admitting Clinician Evangelist Clark MD Admitting Clinician Jess Friend MD Admitting Clinician Payers Payer Name Policy Type Policy Number Effective Date Expiration Date Eloise MORALEZ [id number] 2019 HEALTH 00:00:00 MEDICAID OF [place] [id number] 2019 00:00:00 Problems Condition Condition Condition Status Onset Resolution Last Treating Co mments Source Name Details Category Date Date Treatment Clinician Date 38 weeks 38 weeks Disease Active Unive rs gestation gestation 8-31 ity of of 00:00: [place] 00 [facility] Labor Labor Disease Active Univers without without 8-31 ity of complicati [place] 00 [place] H/O H/O Disease Active 2020- Univers 8-18 ity of delivery, delivery, 00:00: Jose De Jesus miller currently currently 00 [facility] , , Bran ch third third trimester trimester Rh Rh Disease Active Univers negative negative 6-23 ity of state in state in 00:00: [place] antepartum antepartum 00 Me dical period period Branch Anemia of Anemia of Disease Active Uni vers mother in mother in 6-11 ity of , , [place] ante[place] antepartum 00 Me dical Branch Nausea and Nausea and Disease Active 2020- U nivers vomiting vomiting 2-10 ity of during during 00:00: [place] 00 [facility] Supervisio Supervisio Disease Active 2020- U nivers n of n of 1-13 ity of high-risk high-risk 00:00: Jose De Jesus mill[place] 00 [facility] Multiparit Multiparit Disease Active 2020- U nivers y y 1-13 ity of 00:00: [place] 00 Medical Branch History of History of Disease Active 2020-0 U nivers 1-13 ity of delivery delivery 00:00: [place] 00 [facility] Branch Pain Pain Disease Active 2020-0 Univers pelvic pelvic 8-25 ity of 00:00: [place] 00 Medical Branch Encounter Encounter Disease Active 2020-0 Uni vers for IUD for IUD 2-28 ity of removal removal 00:00: [place] 00 Medical Branch Other Other Disease Active 2020-0 Univers general general 2-13 ity of counseling counseling [place] and advice and advice 00 Id dical [facility] Branch contracept contracept farhat farhat management management Disease Active 2018-08 Univers (spontaneo (spontaneo 1-03 it y of us vaginal us vaginal 00:00[place] delivery[place] delivery[place] 00 [facility] Single Single Disease Active 2018-08 Univers live live 1-03 ity of 00:00: [place] 00 [facility] Branch Anemia, Anemia, Disease Active 2018-08 Univers 1-03 it y of 00:00: [place] [address] Medical Branch Obesity Obesity Disease Active 2019 Univers (BMI (BMI 1-02 ity of 30-39.9) 30-39.9) 00:00: [address] Branch 38 weeks 38 weeks Disease Active 2019 Unive rs gestation gestation 1-02 ity of of of 00:00: [place] 00 [facility] Obesity in Obesity in Disease Active 2019- U nivers 1- ity of 00:00: [address] Branch Supervisio Supervisio Disease Active 2019- U nivers n of n of 0-29 ity of high-risk high-risk [place] [facility] Multiparit Multiparit Disease Active 2019 U nivers y y 0-29 ity of 00:00: [address] Branch Anemia of Anemia of Disease Active 2018-08 Overview: Univers mother in mother in 0-17 Verify if i ty of , , 00:00[place] antepartum antepartum 00 is taking Medical iron/vit/ Branch pnv on next visit Vaginal Vaginal Disease Active 2019- Univers bleeding bleeding 9-10 ity of during during 00:00: [place] 00 [facility] Disease Active 2019- U nivers n of n of 7-16 ity of high-risk high-risk 00:[place] [facility] Round Round Disease Active 2019- Univers ligament ligament 7-16 ity of pain pain 00:00: [address] Branch Pyelectasi Pyelectasi Disease Active 2019 Overview : Univers s s 6-25 Left and ity of 00:00: right [place] [address] pyelectas Medical is noted Branch on usg [...] use 3-15 Quit with ity of 00:00: [place] [address] Medical Branch Tobacco Tobacco Disease Active 2019 [...] it y of 00:00: [place] 00 Medical [place] Allergies, Adverse Reactions, Alerts Allergy Allergy Status Severity Reaction(s) Onset Inactive Treating Comm ents Source Name Type Date Date Clinician Doxycycl Propensi Active Nausea Univer s ine ty to and/or 03-15 ity of adverse Vomiting 00:00: [place] reaction 00 Medical s Branch DOXYCYCL DRUG Active N/V Univers INE INGREDI 8 ity of 00:00: [place] 00 [facility] NO KNOWN Drug Active Univers ALLERGIE Class ity of S [facility] Social History Social Habit Start Date Stop Date Quantity Comments Source ASSERTION 2020-07-28 University of 00:00:00 [facility] Exposure to 2022-03-23 2022-04-02 Not sure [facility] SARS-CoV-2 (event) 00:00:00 14:42:00 [facility] Alcohol intake 2021-04-08 2021-04-08 Current University of 00:00:00 00:00:00 non-drinker of [facility] alcohol (finding) Branch Cigarettes smoked 2020-08-20 2020-08-20 Univers ity of current (pack per 00:00:00 00:00:00 [facility] ) - Reported Branch Tobacco use and 2020-08-20 2020-08-20 Smokeless tobacco Un iversity of exposure 00:00:00 00:00:00 non-user [facility] Tobacco Comment 2018-10-20 2018-10-20 was smoking 1 Univer sity of 00:00:00 00:00:00 cigarrette a day [facility] dical [place] History of tobacco 2020-08-17 2018-10-06 Cigarette Smoker University of use 00:00:00 00:00:00 [facility] Sex Assigned At 2000 2000 Universit y of 00:00:00 00:00:00 [facility] Smoking Status Start Date Stop Date Source Ex-smoker 2020-08-20 00:00:00 2020-08-20 00:00:00 [facility] Medical Branch Current every day 2020-04-01 00:00:00 [facility] smoker Medical Branch Medications Ordered Filled Start Stop Current Ordering Indication Dosage Frequency Signature Comments Components Source Medication Medication Date Date Medication? Clinician (SIG) Name Name sulfamethox 2020- No [id number] 1{tbl} Take 1 Univers azole-trime 04-14 tablet by it y of thoprim 00:00: 04:59 mouth 2 [place] 400-80 mg 00 :00 (two) Medical per tablet times Branch daily for 5 days. sulfamethox 2020- No [id number] 1{tbl} Take 1 Univers azole-trime 04-14 tablet by it y of thoprim 00:00: 04:59 mouth 2 [place] 400-80 mg 00 :00 (two) Medical per tablet times Branch daily for 5 days. sulfamethox 2020- No [id number] 1{tbl} Take 1 Univers azole-trime 04-14 tablet by it y of thoprim 00:00: 04:59 mouth 2 [place] 400-80 mg 00 :00 (two) Medical per tablet times Branch daily for 5 days. sulfamethox 2020- No [id number] 1{tbl} Take 1 Univers azole-trime 04-14 tablet by it y of thoprim 00:00: 04:59 mouth 2 [place] 400-80 mg 00 :00 (two) Medical per tablet times Branch daily for 5 days. sulfamethox 2020- No [id number] 1{tbl} Take 1 Univers azole-trime 04-14 tablet by it y of thoprim 00:00: 04:59 mouth 2 [place] 400-80 mg 00 :00 (two) Medical per tablet times Branch daily for 5 days. sulfamethox 2020- No [id number] 1{tbl} Take 1 Univers azole-trime 04-14 tablet by it y of thoprim 00:00: 04:59 mouth 2 [place] 400-80 mg 00 :00 (two) Medical per tablet times Branch daily for 5 days. docusate Yes [id number] 240mg Take 1 U nivers calcium 240 9-02 capsule by it y of mg capsule 00:00: mouth once [place] 00 daily as Medical needed for Branch Constipati on. Yes [id number] 1{tbl} Take 1 Univers vitamin 9-02 tablet by ity of w/FA tablet 00:00: mouth [place] 00 daily. Medical Branch ferrous Yes [id number] 325mg Take 1 Un alex sulfate 325 9-02 tablet by ity of mg (65 mg 00:00: mouth 2 [place] iron) 00 (two) Medical tablet times Branch daily. ibuprofen Yes [id number] 600mg Take 1 Univers 600 mg 9-02 tablet by ity of tablet 00:00: mouth [place] 00 every 6 Medical (six) Branch hours as needed (Pain). Take with food or milk. norethindro Yes [id number] .35mg Take 1 Univers ne 0.35 mg 9-02 tablet by ity of tablet 00:00: mouth [place] 00 daily. Medical Branch docusate Yes [id number] 240mg Take 1 U nivers calcium 240 9-02 capsule by it y of mg capsule 00:00: mouth once [place] 00 daily as Medical needed for Branch Constipati on. Yes [id number] 1{tbl} Take 1 Univers vitamin 9-02 tablet by ity of w/FA tablet 00:00: mouth [place] 00 daily. Medical Branch ferrous Yes [id number] 325mg Take 1 Un alex sulfate 325 9-02 tablet by ity of mg (65 mg 00:00: mouth 2 [place] iron) 00 (two) Medical tablet times Branch daily. ibuprofen Yes [id number] 600mg Take 1 Univers 600 mg 9-02 tablet by ity of tablet 00:00: mouth [place] 00 every 6 Medical (six) Branch hours as needed (Pain). Take with food or milk. norethindro Yes [id number] .35mg Take 1 Univers ne 0.35 mg 9-02 tablet by ity of tablet 00:00: mouth [place] 00 daily. Medical Branch docusate Yes [id number] 240mg Take 1 U nivers calcium 240 9-02 capsule by it y of mg capsule 00:00: mouth once [place] 00 daily as Medical needed for Branch Constipati on. Yes [id number] 1{tbl} Take 1 Univers vitamin 9-02 tablet by ity of w/FA tablet 00:00: mouth [place] 00 daily. Medical Branch ferrous Yes [id number] 325mg Take 1 Un alex sulfate 325 9-02 tablet by ity of mg (65 mg 00:00: mouth 2 [place] iron) 00 (two) Medical tablet times Branch daily. ibuprofen Yes [id number] 600mg Take 1 Univers 600 mg 9-02 tablet by ity of tablet 00:00: mouth [place] 00 every 6 Medical (six) Branch hours as needed (Pain). Take with food or milk. norethindro Yes [id number] .35mg Take 1 Univers ne 0.35 mg 9-02 tablet by ity of tablet 00:00: mouth [place] 00 daily. Medical Branch docusate Yes [id number] 240mg Take 1 U nivers calcium 240 9-02 capsule by it y of mg capsule 00:00: mouth once [place] 00 daily as Medical needed for Branch Constipati on. Yes [id number] 1{tbl} Take 1 Univers vitamin 9-02 tablet by ity of w/FA tablet 00:00: mouth [place] 00 daily. Medical Branch ferrous Yes [id number] 325mg Take 1 Un alex sulfate 325 9-02 tablet by ity of mg (65 mg 00:00: mouth 2 [place] iron) 00 (two) Medical tablet times Branch daily. ibuprofen Yes [id number] 600mg Take 1 Univers 600 mg 9-02 tablet by ity of tablet 00:00: mouth [place] 00 every 6 Medical (six) Branch hours as needed (Pain). Take with food or milk. norethindro Yes [id number] .35mg Take 1 Univers ne 0.35 mg 9-02 tablet by ity of tablet 00:00: mouth [place] 00 daily. Medical Branch docusate Yes [id number] 240mg Take 1 U nivers calcium 240 9-02 capsule by it y of mg capsule 00:00: mouth once [place] 00 daily as Medical needed for Branch Constipati on. Yes [id number] 1{tbl} Take 1 Univers vitamin 9-02 tablet by ity of w/FA tablet 00:00: mouth [place] 00 daily. Medical Branch ferrous Yes [id number] 325mg Take 1 Un alex sulfate 325 9-02 tablet by ity of mg (65 mg 00:00: mouth 2 [place] iron) 00 (two) Medical tablet times Branch daily. ibuprofen Yes [id number] 600mg Take 1 Univers 600 mg 9-02 tablet by ity of tablet 00:00: mouth [place] 00 every 6 Medical (six) Branch hours as needed (Pain). Take with food or milk. norethindro Yes [id number] .35mg Take 1 Univers ne 0.35 mg 9-02 tablet by ity of tablet 00:00: mouth [place] 00 daily. Medical Branch docusate Yes [id number] 240mg Take 1 U nivers calcium 240 9-02 capsule by it y of mg capsule 00:00: mouth once [place] 00 daily as Medical needed for Branch Constipati on. Yes [id number] 1{tbl} Take 1 Univers vitamin 9-02 tablet by ity of w/FA tablet 00:00: mouth [place] 00 daily. Medical Branch ferrous Yes [id number] 325mg Take 1 Un alex sulfate 325 9-02 tablet by ity of mg (65 mg 00:00: mouth 2 [place] iron) 00 (two) Medical tablet times Branch daily. ibuprofen Yes [id number] 600mg Take 1 Univers 600 mg 9-02 tablet by ity of tablet 00:00: mouth [place] 00 every 6 Medical (six) Branch hours as needed (Pain). Take with food or milk. norethindro Yes [id number] .35mg Take 1 Univers ne 0.35 mg 9-02 tablet by ity of tablet 00:00: mouth [place] 00 daily. Medical Branch docusate Yes [id number] 240mg Take 1 U nivers calcium 240 9-02 capsule by it y of mg capsule 00:00: mouth once [place] 00 daily as Medical needed for Branch Constipati on. Yes [id number] 1{tbl} Take 1 Univers vitamin 9-02 tablet by ity of w/FA tablet 00:00: mouth [place] 00 daily. Medical Branch ferrous Yes [id number] 325mg Take 1 Un alex sulfate 325 9-02 tablet by ity of mg (65 mg 00:00: mouth 2 [place] iron) 00 (two) Medical tablet times Branch daily. ibuprofen Yes [id number] 600mg Take 1 Univers 600 mg 9-02 tablet by ity of tablet 00:00: mouth [place] 00 every 6 Medical (six) Branch hours as needed (Pain). Take with food or milk. norethindro Yes [id number] .35mg Take 1 Univers ne 0.35 mg 9-02 tablet by ity of tablet 00:00: mouth [place] 00 daily. Medical Branch docusate Yes [id number] 240mg Take 1 U nivers calcium 240 9-02 capsule by it y of mg capsule 00:00: mouth once [place] 00 daily as Medical needed for Branch Constipati on. Yes [id number] 1{tbl} Take 1 Univers vitamin 9-02 tablet by ity of w/FA tablet 00:00: mouth [place] 00 daily. Medical Branch ferrous Yes [id number] 325mg Take 1 Un alex sulfate 325 9-02 tablet by ity of mg (65 mg 00:00: mouth 2 [place] iron) 00 (two) Medical tablet times Branch daily. ibuprofen Yes [id number] 600mg Take 1 Univers 600 mg 9-02 tablet by ity of tablet 00:00: mouth [place] 00 every 6 Medical (six) Branch hours as needed (Pain). Take with food or milk. norethindro Yes [id number] .35mg Take 1 Univers ne 0.35 mg 9-02 tablet by ity of tablet 00:00: mouth [place] 00 daily. Medical Branch cephALEXin 2020- No [id number] 500mg Take 1 Univers 500 mg 03-15 08-16 [id number] tablet by ity o f tablet 00:00: 04:59 mouth 4 [place] 00 :00 (four) Medical times Branch daily for 7 days. ferrous Yes [id number] 325mg Take 1 Un alex sulfate 325 6-11 tablet by ity of mg (65 mg 00:00: mouth 2 [place] iron) 00 (two) Medical tablet times Branch daily. ascorbic Yes [id number] 500mg Take 1 U nivers acid, 6-11 tablet by ity of vitamin C, 00:00: mouth 3 [place] 500 mg 00 (three) Medical tablet times Branch daily. ferrous Yes [id number] 325mg Take 1 Un alex sulfate 325 6-11 tablet by ity of mg (65 mg 00:00: mouth 2 [place] iron) 00 (two) Medical tablet times Branch daily. ascorbic Yes [id number] 500mg Take 1 U nivers acid, 6-11 tablet by ity of vitamin C, 00:00: mouth 3 [place] 500 mg 00 (three) Medical tablet times Branch daily. ferrous Yes [id number] 325mg Take 1 Un alex sulfate 325 6-11 tablet by ity of mg (65 mg 00:00: mouth 2 [place] iron) 00 (two) Medical tablet times Branch daily. ascorbic Yes [id number] 500mg Take 1 U nivers acid, 6-11 tablet by ity of vitamin C, 00:00: mouth 3 [place] 500 mg 00 (three) Medical tablet times Branch daily. ferrous Yes [id number] 325mg Take 1 Un alex sulfate 325 6-11 tablet by ity of mg (65 mg 00:00: mouth 2 [place] iron) 00 (two) Medical tablet times Branch daily. ascorbic Yes [id number] 500mg Take 1 U nivers acid, 6-11 tablet by ity of vitamin C, 00:00: mouth 3 [place] 500 mg 00 (three) Medical tablet times Branch daily. ferrous Yes [id number] 325mg Take 1 Un alex sulfate 325 6-11 tablet by ity of mg (65 mg 00:00: mouth 2 [place] iron) 00 (two) Medical tablet times Branch daily. ascorbic Yes [id number] 500mg Take 1 U nivers acid, 6-11 tablet by ity of vitamin C, 00:00: mouth 3 [place] 500 mg 00 (three) Medical tablet times Branch daily. ferrous Yes [id number] 325mg Take 1 Un alex sulfate 325 6-11 tablet by ity of mg (65 mg 00:00: mouth 2 [place] iron) 00 (two) Medical tablet times Branch daily. ascorbic Yes [id number] 500mg Take 1 U nivers acid, 6-11 tablet by ity of vitamin C, 00:00: mouth 3 [place] 500 mg 00 (three) Medical tablet times Branch daily. ferrous Yes [id number] 325mg Take 1 Un alex sulfate 325 6-11 tablet by ity of mg (65 mg 00:00: mouth 2 [place] iron) 00 (two) Medical tablet times Branch daily. ascorbic Yes [id number] 500mg Take 1 U nivers acid, 6-11 tablet by ity of vitamin C, 00:00: mouth 3 [place] 500 mg 00 (three) Medical tablet times Branch daily. ferrous Yes [id number] 325mg Take 1 Un alex sulfate 325 6-11 tablet by ity of mg (65 mg 00:00: mouth 2 [place] iron) 00 (two) Medical tablet times Branch daily. ascorbic Yes [id number] 500mg Take 1 U nivers acid, 6-11 tablet by ity of vitamin C, 00:00: mouth 3 [place] 500 mg 00 (three) Medical tablet times Branch daily. ferrous Yes [id number] 325mg Take 1 Un alex sulfate 325 6-11 tablet by ity of mg (65 mg 00:00: mouth 2 [place] iron) 00 (two) Medical tablet times Branch daily. ascorbic Yes [id number] 500mg Take 1 U nivers acid, 6-11 tablet by ity of vitamin C, 00:00: mouth 3 [place] 500 mg 00 (three) Medical tablet times Branch daily. ferrous Yes [id number] 325mg Take 1 Un alex sulfate 325 6-11 tablet by ity of mg (65 mg 00:00: mouth 2 [place] iron) 00 (two) Medical tablet times Branch daily. ascorbic Yes [id number] 500mg Take 1 U nivers acid, 6-11 tablet by ity of vitamin C, 00:00: mouth 3 [place] 500 mg 00 (three) Medical tablet times Branch daily. ferrous Yes [id number] 325mg Take 1 Un alex sulfate 325 6-11 tablet by ity of mg (65 mg 00:00: mouth 2 [place] iron) 00 (two) Medical tablet times Branch daily. ascorbic Yes [id number] 500mg Take 1 U nivers acid, 6-11 tablet by ity of vitamin C, 00:00: mouth 3 [place] 500 mg 00 (three) Medical tablet times Branch daily. ascorbic Yes [id number] 500mg Take 1 U nivers acid, 6-11 tablet by ity of vitamin C, 00:00: mouth 3 [place] 500 mg 00 (three) Medical tablet times Branch daily. ascorbic Yes [id number] 500mg Take 1 U nivers acid, 6-11 tablet by ity of vitamin C, 00:00: mouth 3 [place] 500 mg 00 (three) Medical tablet times Branch daily. ascorbic Yes [id number] 500mg Take 1 U nivers acid, 6-11 tablet by ity of vitamin C, 00:00: mouth 3 [place] 500 mg 00 (three) Medical tablet times Branch daily. ascorbic Yes [id number] 500mg Take 1 U nivers acid, 6-11 tablet by ity of vitamin C, 00:00: mouth 3 [place] 500 mg 00 (three) Medical tablet times Branch daily. ascorbic Yes [id number] 500mg Take 1 U nivers acid, 6-11 tablet by ity of vitamin C, 00:00: mouth 3 [place] 500 mg 00 (three) Medical tablet times Branch daily. ascorbic Yes [id number] 500mg Take 1 U nivers acid, 6-11 tablet by ity of vitamin C, 00:00: mouth 3 [place] 500 mg 00 (three) Medical tablet times Branch daily. ascorbic Yes [id number] 500mg Take 1 U nivers acid, 6-11 tablet by ity of vitamin C, 00:00: mouth 3 [place] 500 mg 00 (three) Medical tablet times Branch daily. ascorbic Yes [id number] 500mg Take 1 U nivers acid, 6-11 tablet by ity of vitamin C, 00:00: mouth 3 [place] 500 mg 00 (three) Medical tablet times Branch daily. ascorbic Yes [id number] 500mg Take 1 U nivers acid, 6-11 tablet by ity of vitamin C, 00:00: mouth 3 [place] 500 mg 00 (three) Medical tablet times Branch daily. ascorbic Yes [id number] 500mg Take 1 U nivers acid, 6-11 tablet by ity of vitamin C, 00:00: mouth 3 [place] 500 mg 00 (three) Medical tablet times Branch daily. ascorbic 0 Yes [id number] 500mg Take 1 U nivers acid, 6-11 tablet by ity of vitamin C, 00:00: mouth 3 [place] 500 mg 00 (three) Medical tablet times Branch daily. ascorbic 0 Yes [id number] 500mg Take 1 U nivers acid, 6-11 tablet by ity of vitamin C, 00:00: mouth 3 [place] 500 mg 00 (three) Medical tablet times Branch daily. ferrous 0 202- No [id number] 325mg Take 1 U nivers sulfate 325 [...] on nasal Branch spray HYDROXYprog 0 Yes [id number] 250mg Univers est(PF)(pre 4-07 ity of g presv) 19:40: [place] (HANS) 00 Medical 250 mg/mL Branch (1 mL) injection 250 mg HYDROXYprog 0 Yes [id number] 250mg 250 mg, Univers est(PF)(pre 4-07 Intramuscu it y of g presv) 19:40: ana [place] (HANS) 00 QWEEKLY, Medical 250 mg/mL First dose Bran ch (1 mL) on Tue injection 11/12/20 at 250 mg 1445, Until Discontinu ed, Routine HYDROXYprog 0 Yes [id number] 250mg Univers est(PF)(pre 4-07 ity of g presv) 19:40: [place] (HANS) 00 Medical 250 mg/mL Branch (1 mL) injection 250 mg HYDROXYprog 0 Yes [id number] 250mg 250 mg, Univers est(PF)(pre 4-07 Intramuscu it y of g presv) 19:40: lar, [place] (HANS) 00 QWEEKLY, Medical 250 mg/mL First dose Bran ch (1 mL) on Wed injection 11/12/20 at 250 mg 1445, Until Discontinu ed, Routine HYDROXYprog 2021-0 Yes [id number] 250mg Univers est(PF)(pre 4-07 ity of g presv) 19:40: [place] (HANS) 00 Medical 250 mg/mL Branch (1 mL) injection 250 mg HYDROXYprog 2021-0 Yes [id number] 250mg Univers est(PF)(pre 4-07 ity of g presv) 19:40: [place] ([facility]) 00 Medical 250 mg/mL Branch (1 mL) injection 250 mg HYDROXYprog 2021-0 Yes [id number] 250mg Univers est(PF)(pre 4- ity of g presv) 19:40: [place] ([facility]) Medical 250 mg/mL Branch (1 mL) injection 250 mg HYDROXYprog 2021-0 Yes [id number] 250mg 250 mg, Univers est(PF)(pre -07 Intramuscu it y of g presv) 19:40: [place], [place] (HANS) 00 QWEEKLY, Medical 250 mg/mL First dose Bran ch (1 mL) on Wed injection 11/12/20 at 250 mg 1445, Until Discontinu ed, Routine HYDROXYprog 2021-0 Yes [id number] 250mg Univers est(PF)(pre 4- ity of g presv) 19:40: [place] (HANS) Medical 250 mg/mL Branch (1 mL) injection 250 mg HYDROXYprog 2021-0 Yes [id number] 250mg Univers est(PF)(pre 4- ity of g presv) 19:40: [place] ([facility]) 00 Medical 250 mg/mL Branch (1 mL) injection 250 mg HYDROXYprog 2021-0 Yes [id number] 250mg 250 mg, Univers est(PF)(pre 4-07 Intramuscu it y of g presv) 19:40: [place], [place] (HANS) 00 QWEEKLY, Medical 250 mg/mL First dose Bran ch (1 mL) on Wed injection 11/12/20 at 250 mg 1445, Until Discontinu ed, Routine HYDROXYprog 2021-0 Yes [id number] 250mg Univers est(PF)(pre 4-07 ity of g presv) 19:40: [place] (HANS) 00 Medical 250 mg/mL Branch (1 mL) injection 250 mg HYDROXYprog 2021-0 Yes [id number] 250mg Univers est(PF)(pre 4-07 ity of g presv) 19:40: [place] (HANS) 00 Medical 250 mg/mL Branch (1 mL) injection 250 mg HYDROXYprog 2021-0 Yes [id number] 250mg 250 mg, Univers est(PF)(pre 4-07 Intramuscu it y of g presv) 19:40: [place], [place] (HANS) 00 QWEEKLY, Medical 250 mg/mL First dose Bran ch (1 mL) on Wed injection 11/12/20 at 250 mg 1445, Until Discontinu ed, Routine HYDROXYprog 2021-0 Yes [id number] 250mg Univers est(PF)(pre 4- ity of g presv) 19:40: [place] (HANS) 00 Medical 250 mg/mL Branch (1 mL) injection 250 mg HYDROXYprog 2021-0 Yes [id number] 250mg Univers est(PF)(pre 4- ity of g presv) 19:40: [place] (HANS) 00 Medical 250 mg/mL Branch (1 mL) injection 250 mg HYDROXYprog 2021-0 Yes [id number] 250mg 250 mg, Univers est(PF)(pre 4-07 Intramuscu it y of g presv) 19:40: [place], [place] (HANS) 00 QWEEKLY, Medical 250 mg/mL First dose Bran ch (1 mL) on Wed injection 11/12/20 at 250 mg 1445, Until Discontinu ed, Routine HYDROXYprog 2021-0 Yes [id number] 250mg [facility](PF)(pre 4-07 ity of g presv) 19:40: [place] ([facility]) 00 Medical 250 mg/mL Branch (1 mL) injection 250 mg HYDROXYprog 2021-0 Yes [id number] 250mg [facility] est(PF)(pre 4-07 ity of g presv) 19:40: [place] ([facility]) 00 Medical 250 mg/mL Branch (1 mL) injection 250 mg HYDROXYprog 2021-0 Yes [id number] 250mg [facility] est(PF)(pre 4-07 ity of g presv) 19:40: [place] ([facility]) 00 Medical 250 mg/mL Branch (1 mL) injection 250 mg HYDROXYprog 2021-0 Yes [id number] 250mg 250 mg, [facility] est(PF)(pre 4- Intramuscu it y of g presv) 19:40: ana [place] ([facility]) 00 QWEEKLY, Medical 250 mg/mL First dose Bran ch (1 mL) on Wed injection 11/12/20 at 250 mg 1445, Until Discontinu ed, Routine HYDROXYprog 2021-0 Yes [id number] 250mg [facility] est(PF)(pre - ity of g presv) 19:40: [place] ([facility]) 00 Medical 250 mg/mL Branch (1 mL) injection 250 mg HYDROXYprog 2021-0 Yes [id number] 250mg [facility] est(PF)(pre - ity of g presv) 19:40: [place] ([facility]) 00 Medical 250 mg/mL Branch (1 mL) injection 250 mg HYDROXYprog 2021-0 Yes [id number] 250mg 250 mg, [facility] est(PF)(pre 11-12 Intramuscu it y of g presv) 19:40: ana [place] ([facility]) 00 QWEEKLY, Medical 250 mg/mL First dose Bran ch (1 mL) on Wed injection 11/12/20 at 250 mg 1445, Until Discontinu ed, Routine HYDROXYprog 2021-0 Yes [id number] 250mg [facility] est(PF)(pre - ity of g presv) 19:40: [place] ([facility]) 00 Medical 250 mg/mL Branch (1 mL) injection 250 mg HYDROXYprog 2021-0 Yes [id number] 250mg [facility] est(PF)(pre - ity of g presv) 19:40: [place] ([facility]) 00 Medical 250 mg/mL Branch (1 mL) injection 250 mg HYDROXYprog 2021-0 Yes [id number] 250mg 250 mg, [facility] est(PF)(pre - Intramuscu it y of g presv) 19:40: ana [place] ([facility]) 00 QWEEKLY, Medical 250 mg/mL First dose Bran ch (1 mL) on Wed injection 11/12/20 at 250 mg 1445, Until Discontinu ed, Routine HYDROXYprog 2021-0 Yes [id number] 250mg [facility] est(PF)(pre 4- ity of g presv) 19:40: [place] ([facility]) 00 Medical 250 mg/mL Branch (1 mL) injection 250 mg HYDROXYprog 2021-0 Yes [id number] 250mg [facility] est(PF)(pre 11-12 ity of g presv) 19:40: [place] ([facility]) 00 Medical 250 mg/mL Branch (1 mL) injection 250 mg HYDROXYprog 2021-0 Yes [id number] 250mg [facility] est(PF)(pre 11-12 ity of g presv) 19:40: [place] ([facility]) 00 Medical 250 mg/mL Branch (1 mL) injection 250 mg HYDROXYprog 2021-0 Yes [id number] 250mg [facility] est(PF)(pre 11-12 ity of g presv) 19:40: [place] ([facility]) 00 Medical 250 mg/mL Branch (1 mL) injection 250 mg HYDROXYprog 2021-0 Yes [id number] 250mg 250 mg, [facility] est(PF)(pre 11-12 Intramuscu it y of g presv) 19:40: ana, [place] ([facility]) 00 QWEEKLY, Medical 250 mg/mL First dose Bran ch (1 mL) on Wed injection 11/12/20 at 250 mg 1445, Until Discontinu ed, Routine HYDROXYprog 2021-0 Yes [id number] 250mg [facility] est(PF)(pre 11-12 ity of g presv) 19:40: [place] ([facility]) 00 Medical 250 mg/mL Branch (1 mL) injection 250 mg HYDROXYprog 2021-0 Yes [id number] 250mg 250 mg, [facility] est(PF)(pre 11-12 Intramuscu it y of g presv) 19:40: lar, [place] ([facility]) 00 QWEEKLY, Medical 250 mg/mL First dose Bran ch (1 mL) on Wed injection 11/12/20 at 250 mg 1445, Until Discontinu ed, Routine HYDROXYprog 2021-0 Yes [id number] 250mg [facility] est(PF)(pre 11-12 ity of g presv) 19:40: [place] ([facility]) 00 Medical 250 mg/mL Branch (1 mL) injection 250 mg HYDROXYprog 2021-0 Yes [id number] 250mg 250 mg, [facility] est(PF)(pre 11-12 Intramuscu it y of g presv) 19:40: lar, [place] ([facility]) 00 QWEEKLY, Medical 250 mg/mL First dose Bran ch (1 mL) on Wed injection 11/12/20 at 250 mg 1445, Until Discontinu ed, Routine HYDROXYprog 2021-0 Yes [id number] 250mg [facility] est(PF)(pre 4-07 ity of g presv) 19:40: [place] ([facility]) 00 Medical 250 mg/mL Branch (1 mL) injection 250 mg HYDROXYprog 2021-0 Yes [id number] 250mg 250 mg, [facility] est(PF)(pre 4-07 Intramuscu it y of g presv) 19:40: lar, [place] ([facility]) 00 QWEEKLY, Medical 250 mg/mL First dose Bran ch (1 mL) on Wed injection 11/12/20 at 250 mg 1445, Until Discontinu ed, Routine HYDROXYprog 2021-0 Yes [id number] 250mg [facility] est(PF)(pre 4-07 ity of g presv) 19:40: [place] ([facility]) 00 Medical 250 mg/mL Branch (1 mL) injection 250 mg HYDROXYprog 2021-0 Yes [id number] 250mg [facility] est(PF)(pre 4-07 ity of g presv) 19:40: [place] ([facility]) 00 Medical 250 mg/mL Branch (1 mL) injection 250 mg HYDROXYprog 2021-0 Yes [id number] 250mg [facility] est(PF)(pre 4-07 ity of g presv) 19:40: [place] ([facility]) 00 Medical 250 mg/mL Branch (1 mL) injection 250 mg HYDROXYprog 2021-0 Yes [id number] 250mg [facility] est(PF)(pre 4-07 ity of g presv) 19:40: [place] ([facility]) 00 Medical 250 mg/mL Branch (1 mL) injection 250 mg HYDROXYprog 2021-0 Yes [id number] 250mg [facility] est(PF)(pre 4-07 ity of g presv) 19:40: [place] ([facility]) 00 Medical 250 mg/mL Branch (1 mL) injection 250 mg HYDROXYprog 2021-0 Yes [id number] 250mg [facility] est(PF)(pre 4-07 ity of g presv) 19:40: [place] ([facility]) 00 Medical 250 mg/mL Branch (1 mL) injection 250 mg HYDROXYprog 2021-0 Yes [id number] 250mg 250 mg, [facility] est(PF)(pre 4- Intramuscu it y of g presv) 19:40: [place] ([facility]) 00 QWEEKLY, Medical 250 mg/mL First dose Bran ch (1 mL) on Wed injection 11/12/20 at 250 mg 1445, Until Discontinu ed, Routine HYDROXYprog 2021-0 Yes [id number] 250mg [facility] est(PF)(pre - ity of g presv) 19:40: [place] ([facility]) 00 Medical 250 mg/mL Branch (1 mL) injection 250 mg HYDROXYprog 2021-0 Yes [id number] 250mg 250 mg, [facility] est(PF)(pre 11-12 Intramuscu it y of g presv) 19:40: ana [place] ([facility]) 00 QWEEKLY, Medical 250 mg/mL First dose Bran ch (1 mL) on Wed injection 11/12/20 at 250 mg 1445, Until Discontinu ed, Routine HYDROXYprog 2021-0 Yes [id number] 250mg [facility] est(PF)(pre - ity of g presv) 19:40: [place] ([facility]) 00 Medical 250 mg/mL Branch (1 mL) injection 250 mg HYDROXYprog 2021-0 Yes [id number] 250mg 250 mg, [facility] est(PF)(pre 11-12 Intramuscu it y of g presv) 19:40: [place] ([facility]) 00 QWEEKLY, Medical 250 mg/mL First dose Bran ch (1 mL) on Wed injection 11/12/20 at 250 mg 1445, Until Discontinu ed, Routine HYDROXYprog 2021-0 Yes [id number] 250mg [facility] est(PF)(pre - ity of g presv) 19:40: [place] ([facility]) 00 Medical 250 mg/mL Branch (1 mL) injection 250 mg HYDROXYprog 2021-0 Yes [id number] 250mg 250 mg, [facility] est(PF)(pre - Intramuscu it y of g presv) 19:40: [place] ([facility]) 00 QWEEKLY, Medical 250 mg/mL First dose Bran ch (1 mL) on Wed injection 11/12/20 at 250 mg 1445, Until Discontinu ed, Routine HYDROXYprog 2021-0 Yes [id number] 250mg [facility] est(PF)(pre - ity of g presv) 19:40: [place] ([facility]) 00 Medical 250 mg/mL Branch (1 mL) injection 250 mg HYDROXYprog 2021-0 Yes [id number] 250mg 250 mg, [facility] est(PF)(pre 11-12 Intramuscu it y of g presv) 19:40: ana [place] ([facility]) 00 QWEEKLY, Medical 250 mg/mL First dose Bran ch (1 mL) on Wed injection 11/12/20 at 250 mg 1445, Until Discontinu ed, Routine HYDROXYprog 2021-0 Yes [id number] 250mg [facility] est(PF)(pre - ity of g presv) 19:40: [place] ([facility]) 00 Medical 250 mg/mL Branch (1 mL) injection 250 mg HYDROXYprog 2021-0 Yes [id number] 250mg 250 mg, [facility] est(PF)(pre 11-12 Intramuscu it y of g presv) 19:40: ana, [place] ([facility]) 00 QWEEKLY, Medical 250 mg/mL First dose Bran ch (1 mL) on Wed injection 11/12/20 at 250 mg 1445, Until Discontinu ed, Routine HYDROXYprog 2021-0 Yes [id number] 250mg [facility] est(PF)(pre 11-12 ity of g presv) 19:40: [place] ([facility]) 00 Medical 250 mg/mL Branch (1 mL) injection 250 mg HYDROXYprog 2021-0 Yes [id number] 250mg 250 mg, [facility] est(PF)(pre 11-12 Intramuscu it y of g presv) 19:40: ana [place] ([facility]) 00 QWEEKLY, Medical 250 mg/mL First dose Bran ch (1 mL) on Wed injection 11/12/20 at 250 mg 1445, Until Discontinu ed, Routine HYDROXYprog 2021-0 Yes [id number] 250mg [facility] est(PF)(pre - ity of g presv) 19:40: [place] ([facility]) 00 Medical 250 mg/mL Branch (1 mL) injection 250 mg HYDROXYprog 2021-0 Yes [id number] 250mg 250 mg, [facility] est(PF)(pre 11-12 Intramuscu it y of g presv) 19:40: lar, [place] ([facility]) 00 QWEEKLY, Medical 250 mg/mL First dose Bran ch (1 mL) on Tue injection 11/12/20 at 250 mg 1445, Until Discontinu ed, Routine HYDROXYprog 2021-0 Yes [id number] 250mg [facility] est(PF)(pre - ity of g presv) 19:40: [place] ([facility]) 00 Medical 250 mg/mL Branch (1 mL) injection 250 mg HYDROXYprog 2021-0 Yes [id number] 250mg 250 mg, [facility] est(PF)(pre 11-12 Intramuscu it y of g presv) 19:40: lar, [place] ([facility]) 00 QWEEKLY, Medical 250 mg/mL First dose Bran ch (1 mL) on Tue injection 11/12/20 at 250 mg 1445, Until Discontinu ed, Routine HYDROXYprog 2021-0 Yes [id number] 250mg [facility] est(PF)(pre 11-12 ity of g presv) 19:40: [place] ([facility]) 00 Medical 250 mg/mL Branch (1 mL) injection 250 mg HYDROXYprog 2021-0 Yes [id number] 250mg [facility] est(PF)(pre 4-07 ity of g presv) 19:40: [place] ([facility]) 00 Medical 250 mg/mL Branch (1 mL) injection 250 mg HYDROXYprog 2021-0 Yes [id number] 250mg [facility] est(PF)(pre - ity of g presv) 19:40: [place] ([facility]) 00 Medical 250 mg/mL Branch (1 mL) injection 250 mg HYDROXYprog 2021-0 Yes [id number] 250mg [facility] est(PF)(pre 4-07 ity of g presv) 19:40: [place] ([facility]) 00 Medical 250 mg/mL Branch (1 mL) injection 250 mg HYDROXYprog 2021-0 Yes [id number] 250mg [facility] est(PF)(pre 4-07 ity of g presv) 19:40: [place] ([facility]) 00 Medical 250 mg/mL Branch (1 mL) injection 250 mg proMETHazin 2021-0 Yes [id number] 25mg Take 1 Univers e 25 mg 2-18 tablet by ity of tablet 00:00: mouth [place] 00 every 6 Medical (six) Branch hours as needed for Nausea and Vomiting (N/V). proMETHazin 2020-0 Yes [id number] 25mg Take 1 Univers e 25 mg 2-18 tablet by ity of tablet 00:00: mouth [place] 00 every 6 Medical (six) Branch hours as needed for Nausea and Vomiting (N/V). proMETHazin 2020-0 Yes [id number] 25mg Take 1 Univers e 25 mg 2-18 tablet by ity of tablet 00:00: mouth [place] 00 every 6 Medical (six) Branch hours as needed for Nausea and Vomiting (N/V). proMETHazin 2020-0 Yes [id number] 25mg Take 1 Univers e 25 mg 2-18 tablet by ity of tablet 00:00: mouth [place] 00 every 6 Medical (six) Branch hours as needed for Nausea and Vomiting (N/V). proMETHazin 2020-0 Yes [id number] 25mg Take 1 Univers e 25 mg 2-18 tablet by ity of tablet 00:00: mouth [place] 00 every 6 Medical (six) Branch hours as needed for Nausea and Vomiting (N/V). proMETHazin 2020-0 Yes [id number] 25mg Take 1 Univers e 25 mg 2-18 tablet by ity of tablet 00:00: mouth [place] 00 every 6 Medical (six) Branch hours as needed for Nausea and Vomiting (N/V). proMETHazin 2020-0 Yes [id number] 25mg Take 1 Univers e 25 mg 2-18 tablet by ity of tablet 00:00: mouth [place] 00 every 6 Medical (six) Branch hours as needed for Nausea and Vomiting (N/V). proMETHazin 2020-0 Yes [id number] 25mg Take 1 Univers e 25 mg 2-18 tablet by ity of tablet 00:00: mouth [place] 00 every 6 Medical (six) Branch hours as needed for Nausea and Vomiting (N/V). proMETHazin 1-0 Yes [id number] 25mg Take 1 Univers e 25 mg 2-18 tablet by ity of tablet 00:00: mouth [place] 00 every 6 Medical (six) Branch hours as needed for Nausea and Vomiting (N/V). proMETHazin 2020-0 Yes [id number] 25mg Take 1 Univers e 25 mg 2-18 tablet by ity of tablet 00:00: mouth [place] 00 every 6 Medical (six) Branch hours as needed for Nausea and Vomiting (N/V). proMETHazin 1-0 Yes [id number] 25mg Take 1 Univers e 25 mg 2-18 tablet by ity of tablet 00:00: mouth [place] 00 every 6 Medical (six) Branch hours as needed for Nausea and Vomiting (N/V). proMETHazin 2020-0 Yes [id number] 25mg Take 1 Univers e 25 mg 2-18 tablet by ity of tablet 00:00: mouth [place] 00 every 6 Medical (six) Branch hours as needed for Nausea and Vomiting (N/V). proMETHazin 2020-0 Yes [id number] 25mg Take 1 Univers e 25 mg 2-18 tablet by ity of tablet 00:00: mouth [place] 00 every 6 Medical (six) Branch hours as needed for Nausea and Vomiting (N/V). proMETHazin 2020-0 Yes [id number] 25mg Take 1 Univers e 25 mg 2-18 tablet by ity of tablet 00:00: mouth [place] 00 every 6 Medical (six) Branch hours as needed for Nausea and Vomiting (N/V). proMETHazin 2020-0 Yes [id number] 25mg Take 1 Univers e 25 mg 2-18 tablet by ity of tablet 00:00: mouth [place] 00 every 6 Medical (six) Branch hours as needed for Nausea and Vomiting (N/V). proMETHazin 2020-0 Yes [id number] 25mg Take 1 Univers e 25 mg 2-18 tablet by ity of tablet 00:00: mouth [place] 00 every 6 Medical (six) Branch hours as needed for Nausea and Vomiting (N/V). proMETHazin 2020-0 Yes [id number] 25mg Take 1 Univers e 25 mg 2-18 tablet by ity of tablet 00:00: mouth [place] 00 every 6 Medical (six) Branch hours as needed for Nausea and Vomiting (N/V). proMETHazin 2021-0 Yes [id number] 25mg Take 1 Univers e 25 mg 2-18 tablet by ity of tablet 00:00: mouth [place] 00 every 6 Medical (six) Branch hours as needed for Nausea and Vomiting (N/V). proMETHazin 2021-0 Yes [id number] 25mg Take 1 Univers e 25 mg 2-18 tablet by ity of tablet 00:00: mouth [place] 00 every 6 Medical (six) Branch hours as needed for Nausea and Vomiting (N/V). proMETHazin 2020-0 Yes [id number] 25mg Take 1 Univers e 25 mg 2-18 tablet by ity of tablet 00:00: mouth [place] 00 every 6 Medical (six) Branch hours as needed for Nausea and Vomiting (N/V). proMETHazin 2020-0 Yes [id number] 25mg Take 1 Univers e 25 mg 2-18 tablet by ity of tablet 00:00: mouth [place] 00 every 6 Medical (six) Branch hours as needed for Nausea and Vomiting (N/V). proMETHazin 2020-0 Yes [id number] 25mg Take 1 Univers e 25 mg 2-18 tablet by ity of tablet 00:00: mouth [place] 00 every 6 Medical (six) Branch hours as needed for Nausea and Vomiting (N/V). proMETHazin 2020-0 Yes [id number] 25mg Take 1 Univers e 25 mg 2-18 tablet by ity of tablet 00:00: mouth [place] 00 every 6 Medical (six) Branch hours as needed for Nausea and Vomiting (N/V). proMETHazin 2020-0 Yes [id number] 25mg Take 1 Univers e 25 mg 2-18 tablet by ity of tablet 00:00: mouth [place] 00 every 6 Medical (six) Branch hours as needed for Nausea and Vomiting (N/V). proMETHazin 2020-0 Yes [id number] 25mg Take 1 Univers e 25 mg 2-18 tablet by ity of tablet 00:00: mouth [place] 00 every 6 Medical (six) Branch hours as needed for Nausea and Vomiting (N/V). proMETHazin 2020-0 Yes [id number] 25mg Take 1 Univers e 25 mg 2-18 tablet by ity of tablet 00:00: mouth [place] 00 every 6 Medical (six) Branch hours as needed for Nausea and Vomiting (N/V). proMETHazin 2020-0 Yes [id number] 25mg Take 1 Univers e 25 mg 2-18 tablet by ity of tablet 00:00: mouth [place] 00 every 6 Medical (six) Branch hours as needed for Nausea and Vomiting (N/V). proMETHazin 2020-0 Yes [id number] 25mg Take 1 Univers e 25 mg 2-18 tablet by ity of tablet 00:00: mouth [place] 00 every 6 Medical (six) Branch hours as needed for Nausea and Vomiting (N/V). proMETHazin 1-0 Yes [id number] 25mg Take 1 Univers e 25 mg 2-18 tablet by ity of tablet 00:00: mouth [place] 00 every 6 Medical (six) Branch hours as needed for Nausea and Vomiting (N/V). proMETHazin 2020-0 Yes [id number] 25mg Take 1 Univers e 25 mg 2-18 tablet by ity of tablet 00:00: mouth [place] 00 every 6 Medical (six) Branch hours as needed for Nausea and Vomiting (N/V). proMETHazin 2020-0 Yes [id number] 25mg Take 1 Univers e 25 mg 2-18 tablet by ity of tablet 00:00: mouth [place] 00 every 6 Medical (six) Branch hours as needed for Nausea and Vomiting (N/V). proMETHazin 2020-0 Yes [id number] 25mg Take 1 Univers e 25 mg 2-18 tablet by ity of tablet 00:00: mouth [place] 00 every 6 Medical (six) Branch hours as needed for Nausea and Vomiting (N/V). proMETHazin 2020-0 Yes [id number] 25mg Take 1 Univers e 25 mg 2-18 tablet by ity of tablet 00:00: mouth [place] 00 every 6 Medical (six) Branch hours as needed for Nausea and Vomiting (N/V). proMETHazin 2020-0 Yes [id number] 25mg Take 1 Univers e 25 mg 2-18 tablet by ity of tablet 00:00: mouth [place] 00 every 6 Medical (six) Branch hours as needed for Nausea and Vomiting (N/V). proMETHazin 2020-0 Yes [id number] 25mg Take 1 Univers e 25 mg 2-18 tablet by ity of tablet 00:00: mouth [place] 00 every 6 Medical (six) Branch hours as needed for Nausea and Vomiting (N/V). proMETHazin 2020-0 Yes [id number] 25mg Take 1 Univers e 25 mg 2-18 tablet by ity of tablet 00:00: mouth [place] 00 every 6 Medical (six) Branch hours as needed for Nausea and Vomiting (N/V). proMETHazin 1-0 Yes [id number] 25mg Take 1 Univers e 25 mg 2-18 tablet by ity of tablet 00:00: mouth [place] 00 every 6 Medical (six) Branch hours as needed for Nausea and Vomiting (N/V). proMETHazin 2020-0 Yes [id number] 25mg Take 1 Univers e 25 mg 2-18 tablet by ity of tablet 00:00: mouth [place] 00 every 6 Medical (six) Branch hours as needed for Nausea and Vomiting (N/V). proMETHazin 2020-0 Yes [id number] 25mg Take 1 Univers e 25 mg 2-18 tablet by ity of tablet 00:00: mouth [place] 00 every 6 Medical (six) Branch hours as needed for Nausea and Vomiting (N/V). proMETHazin 2020-0 Yes [id number] 25mg Take 1 Univers e 25 mg 2-18 tablet by ity of tablet 00:00: mouth [place] 00 every 6 Medical (six) Branch hours as needed for Nausea and Vomiting (N/V). proMETHazin 2020-0 Yes [id number] 25mg Take 1 Univers e 25 mg 2-18 tablet by ity of tablet 00:00: mouth [place] 00 every 6 Medical (six) Branch hours as needed for Nausea and Vomiting (N/V). proMETHazin 2020-0 Yes [id number] 25mg Take 1 Univers e 25 mg 2-18 tablet by ity of tablet 00:00: mouth [place] 00 every 6 Medical (six) Branch hours as needed for Nausea and Vomiting (N/V). proMETHazin 2020-0 Yes [id number] 25mg Take 1 Univers e 25 mg 2-18 tablet by ity of tablet 00:00: mouth [place] 00 every 6 Medical (six) Branch hours as needed for Nausea and Vomiting (N/V). proMETHazin 2020-0 Yes [id number] 25mg Take 1 Univers e 25 mg 2-18 tablet by ity of tablet 00:00: mouth [place] 00 every 6 Medical (six) Branch hours as needed for Nausea and Vomiting (N/V). proMETHazin 2020-0 Yes [id number] 25mg Take 1 Univers e 25 mg 2-18 tablet by ity of tablet 00:00: mouth [place] 00 every 6 Medical (six) Branch hours as needed for Nausea and Vomiting (N/V). proMETHazin 2020-0 Yes [id number] 25mg Take 1 Univers e 25 mg 2-18 tablet by ity of tablet 00:00: mouth [place] 00 every 6 Medical (six) Branch hours as needed for Nausea and Vomiting (N/V). proMETHazin 2020-0 Yes [id number] 25mg Take 1 Univers e 25 mg 2-18 tablet by ity of tablet 00:00: mouth [place] 00 every 6 Medical (six) Branch hours as needed for Nausea and Vomiting (N/V). proMETHazin 2020-0 Yes [id number] 25mg Take 1 Univers e 25 mg 2-18 tablet by ity of tablet 00:00: mouth [place] 00 every 6 Medical (six) Branch hours as needed for Nausea and Vomiting (N/V). proMETHazin 2020-0 Yes [id number] 25mg Take 1 Univers e 25 mg 2-18 tablet by ity of tablet 00:00: mouth [place] 00 every 6 Medical (six) Branch hours as needed for Nausea and Vomiting (N/V). proMETHazin 2020-0 Yes [id number] 25mg Take 1 Univers e 25 mg 2-18 tablet by ity of tablet 00:00: mouth [place] 00 every 6 Medical (six) Branch hours as needed for Nausea and Vomiting (N/V). proMETHazin 2020-0 Yes [id number] 25mg Take 1 Univers e 25 mg 2-18 tablet by ity of tablet 00:00: mouth [place] 00 every 6 Medical (six) Branch hours as needed for Nausea and Vomiting (N/V). proMETHazin 2020-0 Yes [id number] 25mg Take 1 Univers e 25 mg 2-18 tablet by ity of tablet 00:00: mouth [place] 00 every 6 Medical (six) Branch hours as needed for Nausea and Vomiting (N/V). proMETHazin 2020-0 Yes [id number] 25mg Take 1 Univers e 25 mg 2-18 tablet by ity of tablet 00:00: mouth [place] 00 every 6 Medical (six) Branch hours as needed for Nausea and Vomiting (N/V). proMETHazin 2020-0 Yes [id number] 25mg Take 1 [facility] e 25 mg 2-18 tablet by ity of tablet 00:00: mouth [place] 00 every 6 Medical (six) Branch hours as needed for Nausea and Vomiting (N/V). proMETHazin 2020-0 Yes [id number] 25mg Take 1 [facility] e 25 mg 2-18 tablet by ity of tablet 00:00: mouth [place] 00 every 6 Medical (six) Branch hours as needed for Nausea and Vomiting (N/V). proMETHazin 2021-0 Yes [id number] 25mg Take 1 [facility] e 25 mg 2-18 tablet by ity of tablet 00:00: mouth [place] 00 every 6 Medical (six) Branch hours as needed for Nausea and Vomiting (N/V). proMETHazin Yes [id number] 25mg Take 1 [facility] e 25 mg 2-18 tablet by ity of tablet 00:00: mouth [place] 00 every 6 Medical (six) Branch hours as needed for Nausea and Vomiting (N/V). proMETHazin Yes [id number] 25mg Take 1 [facility] e 25 mg 2-18 tablet by ity of tablet 00:00: mouth [place] 00 every 6 Medical (six) Branch hours as needed for Nausea and Vomiting (N/V). proMETHazin Yes [id number] 25mg Take 1 [facility] e 25 mg 2-18 tablet by ity of tablet 00:00: mouth [place] 00 every 6 Medical (six) Branch hours as needed for Nausea and Vomiting (N/V). doxylamine- Yes [id number] 2{tbl} Take 2 Univers pyridoxine, 2-10 tablets by it y of vit B6, 00:00: mouth at [facility] [place] 00 bedtime. Medic al 10-10 mg Branch per tablet doxylamine- Yes [id number] 2{tbl} Take 2 Univers pyridoxine, 2-10 tablets by it y of vit B6, 00:00: mouth at [facility] [place] 00 bedtime. Medic al 10-10 mg Branch per tablet doxylamine- Yes [id number] 2{tbl} Take 2 Univers pyridoxine, 2-10 tablets by it y of vit B6, 00:00: mouth at [place] ([facility]) 00 bedtime. Medic al 10-10 mg Branch per tablet doxylamine- Yes [id number] 2{tbl} Take 2 Univers pyridoxine, 2-10 tablets by it y of vit B6, 00:00: mouth at [place] ([facility]) 00 bedtime. Medic al 10-10 mg Branch per tablet doxylamine- Yes [id number] 2{tbl} Take 2 Univers pyridoxine, 2-10 tablets by it y of vit B6, 00:00: mouth at [place] [address] bedtime. Medic al 10-10 mg Branch per tablet doxylamine- 2020-0 Yes [id number] 2{tbl} Take 2 Univers pyridoxine, 2-10 tablets by it y of vit B6, 00:00: mouth at [place] [address] bedtime. Medic al 10-10 mg Branch per tablet doxylamine- 2020-0 Yes [id number] 2{tbl} Take 2 Univers pyridoxine, 2-10 tablets by it y of vit B6, 00:00: mouth at [place] [address] bedtime. Medic al 10-10 mg Branch per tablet doxylamine- 2020-0 Yes [id number] 2{tbl} Take 2 Univers pyridoxine, 2-10 tablets by it y of vit B6, 00:00: mouth at [place] [address] bedtime. Medic al 10-10 mg Branch per tablet doxylamine- 2020-0 Yes [id number] 2{tbl} Take 2 [facility] pyridoxine, 2-10 tablets by it y of vit B6, 00:00: mouth at [place] [address] bedtime. Medic al 10-10 mg Branch per tablet doxylamine- 2020-0 Yes [id number] 2{tbl} Take 2 Univers pyridoxine, 2-10 tablets by it y of vit B6, 00:00: mouth at [place] [address] bedtime. Medic al 10-10 mg Branch per tablet doxylamine- 2020-0 Yes [id number] 2{tbl} Take 2 Univers pyridoxine, 2-10 tablets by it y of vit B6, 00:00: mouth at [place] [address] bedtime. Medic al 10-10 mg Branch per tablet doxylamine- 2020-0 Yes [id number] 2{tbl} Take 2 Univers pyridoxine, 2-10 tablets by it y of vit B6, 00:00: mouth at [place] [address] bedtime. Medic al 10-10 mg Branch per tablet doxylamine- 2020-0 Yes [id number] 2{tbl} Take 2 Univers pyridoxine, 2-10 tablets by it y of vit B6, 00:00: mouth at [place] ([facility]) 00 bedtime. Medic al 10-10 mg Branch per tablet doxylamine- 2020-0 Yes [id number] 2{tbl} Take 2 Univers pyridoxine, 2-10 tablets by it y of vit B6, 00:00: mouth at [facility] [place] 00 bedtime. Medic al 10-10 mg Branch per tablet doxylamine- 2020-0 Yes [id number] 2{tbl} Take 2 Univers pyridoxine, 2-10 tablets by it y of vit B6, 00:00: mouth at [facility] [place] 00 bedtime. Medic al 10-10 mg Branch per tablet doxylamine- 2020-0 Yes [id number] 2{tbl} Take 2 [facility] pyridoxine, 2-10 tablets by it y of vit B6, 00:00: mouth at [facility] [place] 00 bedtime. Medic al 10-10 mg Branch per tablet doxylamine- 2020-0 Yes [id number] 2{tbl} Take 2 [facility] pyridoxine, 2-10 tablets by it y of vit B6, 00:00: mouth at [place] [address] bedtime. Medic al 10-10 mg Branch per tablet doxylamine- 2020-0 Yes [id number] 2{tbl} Take 2 [facility] pyridoxine, 2-10 tablets by it y of vit B6, 00:00: mouth at [place] [address] bedtime. Medic al 10-10 mg Branch per tablet doxylamine- 2020-0 Yes [id number] 2{tbl} Take 2 [facility] pyridoxine, 2-10 tablets by it y of vit B6, 00:00: mouth at [facility] [place] 00 bedtime. Medic al 10-10 mg Branch per tablet doxylamine- 2020-0 Yes [id number] 2{tbl} Take 2 [facility] pyridoxine, 2-10 tablets by it y of vit B6, 00:00: mouth at [facility] [place] 00 bedtime. Medic al 10-10 mg Branch per tablet doxylamine- 2020-0 Yes [id number] 2{tbl} Take 2 [facility] pyridoxine, 2-10 tablets by it y of vit B6, 00:00: mouth at [facility] [place] 00 bedtime. Medic al 10-10 mg Branch per tablet doxylamine- Yes [id number] 2{tbl} Take 2 [facility] pyridoxine, 2-10 tablets by it y of vit B6, 00:00: mouth at [place] [address] bedtime. Medic al 10-10 mg Branch per tablet doxylamine- Yes [id number] 2{tbl} Take 2 [facility] pyridoxine, 2-10 tablets by it y of vit B6, 00:00: mouth at [place] [address] bedtime. Medic al 10-10 mg Branch per tablet doxylamine- Yes [id number] 2{tbl} Take 2 [facility] pyridoxine, 2-10 tablets by it y of vit B6, 00:00: mouth at [place] [address] bedtime. Medic al 10-10 mg Branch per tablet doxylamine- Yes [id number] 2{tbl} Take 2 [facility] pyridoxine, 2-10 tablets by it y of vit B6, 00:00: mouth at [place] [address] bedtime. Medic al 10-10 mg Branch per tablet doxylamine- Yes [id number] 2{tbl} Take 2 [facility] pyridoxine, 2-10 tablets by it y of vit B6, 00:00: mouth at [place] [address] bedtime. Medic al 10-10 mg Branch per tablet doxylamine- Yes [id number] 2{tbl} Take 2 [facility] pyridoxine, 2-10 tablets by it y of vit B6, 00:00: mouth at [place] [address] bedtime. Medic al 10-10 mg Branch per tablet doxylamine- Yes [id number] 2{tbl} Take 2 [facility] pyridoxine, 2-10 tablets by it y of vit B6, 00:00: mouth at [facility] [place] bedtime. Medic al 10-10 mg Branch per tablet doxylamine- Yes [id number] 2{tbl} Take 2 [facility] pyridoxine, 2-10 tablets by it y of vit B6, 00:00: mouth at [place] [address] bedtime. Medic al 10-10 mg Branch per tablet doxylamine- Yes [id number] 2{tbl} Take 2 [facility] pyridoxine, 2-10 tablets by it y of vit B6, 00:00: mouth at [facility] [place] 00 bedtime. Medic al 10-10 mg Branch per tablet doxylamine- Yes [id number] 2{tbl} Take 2 [facility] pyridoxine, 2-10 tablets by it y of vit B6, 00:00: mouth at [facility] [place] 00 bedtime. Medic al 10-10 mg Branch per tablet doxylamine- Yes [id number] 2{tbl} Take 2 [facility] pyridoxine, 2-10 tablets by it y of vit B6, 00:00: mouth at [facility] [place] 00 bedtime. Medic al 10-10 mg Branch per tablet doxylamine- Yes [id number] 2{tbl} Take 2 [facility] pyridoxine, 2-10 tablets by it y of vit B6, 00:00: mouth at [facility] [place] 00 bedtime. Medic al 10-10 mg Branch per tablet doxylamine- Yes [id number] 2{tbl} Take 2 [facility] pyridoxine, 2-10 tablets by it y of vit B6, 00:00: mouth at [facility] [place] 00 bedtime. Medic al 10-10 mg Branch per tablet doxylamine- Yes [id number] 2{tbl} Take 2 [facility] pyridoxine, 2-10 tablets by it y of vit B6, 00:00: mouth at [facility] [place] 00 bedtime. Medic al 10-10 mg Branch per tablet doxylamine- Yes [id number] 2{tbl} Take 2 [facility] pyridoxine, 2-10 tablets by it y of vit B6, 00:00: mouth at [facility] [place] 00 bedtime. Medic al 10-10 mg Branch per tablet doxylamine- 0 Yes [id number] 2{tbl} Take 2 [facility] pyridoxine, 2-10 tablets by it y of vit B6, 00:00: mouth at [facility] [place] 00 bedtime. Medic al 10-10 mg Branch per tablet doxylamine- 0 Yes [id number] 2{tbl} Take 2 [facility] pyridoxine, 2-10 tablets by it y of vit B6, 00:00: mouth at [facility] [place] 00 bedtime. Medic al 10-10 mg Branch per tablet doxylamine- 2020-0 Yes [id number] 2{tbl} Take 2 [facility] pyridoxine, 2-10 tablets by it y of vit B6, 00:00: mouth at [facility]) 00 bedtime. Medic al 10-10 mg Branch per tablet doxylamine- 2020-0 Yes [id number] 2{tbl} Take 2 [facility] pyridoxine, 2-10 tablets by it y of vit B6, 00:00: mouth at [facility]) 00 bedtime. Medic al 10-10 mg Branch per tablet doxylamine- 0 Yes [id number] 2{tbl} Take 2 [facility] pyridoxine, 2-10 tablets by it y of vit B6, 00:00: mouth at [facility] [place] 00 bedtime. Medic al 10-10 mg Branch per tablet doxylamine- Yes [id number] 2{tbl} Take 2 [facility] pyridoxine, 2-10 tablets by it y of vit B6, 00:00: mouth at [facility] [place] 00 bedtime. Medic al 10-10 mg Branch per tablet doxylamine- 0 Yes [id number] 2{tbl} Take 2 [facility] pyridoxine, 2-10 tablets by it y of vit B6, 00:00: mouth at [facility] [place] 00 bedtime. Medic al 10-10 mg Branch per tablet doxylamine- 0 Yes [id number] 2{tbl} Take 2 [facility] pyridoxine, 2-10 tablets by it y of vit B6, 00:00: mouth at [facility]) 00 bedtime. Medic al 10-10 mg Branch per tablet doxylamine- 2020-0 Yes [id number] 2{tbl} Take 2 [facility] pyridoxine, 2-10 tablets by it y of vit B6, 00:00: mouth at [facility]) 00 bedtime. Medic al 10-10 mg Branch per tablet doxylamine- 2020-0 Yes [id number] 2{tbl} Take 2 [facility] pyridoxine, 2-10 tablets by it y of vit B6, 00:00: mouth at [place] [address] bedtime. Medic al 10-10 mg Branch per tablet doxylamine- 2020-0 Yes [id number] 2{tbl} Take 2 [facility] pyridoxine, 2-10 tablets by it y of vit B6, 00:00: mouth at [place] [address] bedtime. Medic al 10-10 mg Branch per tablet doxylamine- 2020-0 Yes [id number] 2{tbl} Take 2 [facility] pyridoxine, 2-10 tablets by it y of vit B6, 00:00: mouth at [place] [address] bedtime. Medic al 10-10 mg Branch per tablet doxylamine- 2020-0 Yes [id number] 2{tbl} Take 2 [facility] pyridoxine, 2-10 tablets by it y of vit B6, 00:00: mouth at [place] [address] bedtime. Medic al 10-10 mg Branch per tablet doxylamine- 2020-0 Yes [id number] 2{tbl} Take 2 [facility] pyridoxine, 2-10 tablets by it y of vit B6, 00:00: mouth at [place] [address] bedtime. Medic al 10-10 mg Branch per tablet doxylamine- 2020-0 Yes [id number] 2{tbl} Take 2 [facility] pyridoxine, 2-10 tablets by it y of vit B6, 00:00: mouth at [place] [address] bedtime. Medic al 10-10 mg Branch per tablet doxylamine- 2020-0 Yes [id number] 2{tbl} Take 2 [facility] pyridoxine, 2-10 tablets by it y of vit B6, 00:00: mouth at [place] [address] bedtime. Medic al 10-10 mg Branch per tablet doxylamine- 2020-0 Yes [id number] 2{tbl} Take 2 [facility] pyridoxine, 2-10 tablets by it y of vit B6, 00:00: mouth at [place] [address] bedtime. Medic al 10-10 mg Branch per tablet doxylamine- 2020-0 Yes [id number] 2{tbl} Take 2 [facility] pyridoxine, 2-10 tablets by it y of vit B6, 00:00: mouth at [place] [address] bedtime. Medic al 10-10 mg Branch per tablet doxylamine- Yes [id number] 2{tbl} Take 2 [facility] pyridoxine, 2-10 tablets by it y of vit B6, 00:00: mouth at [facility] [place] 00 bedtime. Medic al 10-10 mg Branch per tablet doxylamine- Yes [id number] 2{tbl} Take 2 [facility] pyridoxine, 2-10 tablets by it y of vit B6, 00:00: mouth at [facility]) 00 bedtime. Medic al 10-10 mg Branch per tablet doxylamine- Yes [id number] 2{tbl} Take 2 [facility] pyridoxine, 2-10 tablets by it y of vit B6, 00:00: mouth at [facility] [place] 00 bedtime. Medic al 10-10 mg Branch per tablet doxylamine- Yes [id number] 2{tbl} Take 2 [facility] pyridoxine, 2-10 tablets by it y of vit B6, 00:00: mouth at [facility] [place] 00 bedtime. Medic al 10-10 mg Branch per tablet doxylamine- Yes [id number] 2{tbl} Take 2 [facility] pyridoxine, 2-10 tablets by it y of vit B6, 00:00: mouth at [facility] [place] 00 bedtime. Medic al 10-10 mg Branch per tablet doxylamine- Yes [id number] 2{tbl} Take 2 [facility] pyridoxine, 2-10 tablets by it y of vit B6, 00:00: mouth at [facility] [place] bedtime. Medic al 10-10 mg Branch per tablet doxylamine- Yes [id number] 2{tbl} Take 2 [facility] pyridoxine, 2-10 tablets by it y of vit B6, 00:00: mouth at [facility]) 00 bedtime. Medic al 10-10 mg Branch per tablet Yes [id number] 1{tbl} Take 1 U nivers multivitami 1-13 tablet by ity of n ( 00:00: mouth [place] [facility]) 00 daily. Medical tablet Branch Yes [id number] 1{tbl} Take 1 U nivers multivitami 1-13 tablet by ity of n ( 00:00: mouth [place] [facility]) 00 daily. Medical tablet Branch Yes [id number] 1{tbl} Take 1 [facility] nivers multivitami 1-13 tablet by ity of n ( 00:00: mouth [place] [facility]) 00 daily. Medical tablet Branch Yes [id number] 1{tbl} Take 1 [facility] nivers multivitami 1-13 tablet by ity of n ( 00:00: mouth [place] [facility]) 00 daily. Medical tablet Branch Yes [id number] 1{tbl} Take 1 [facility] nivers multivitami 1-13 tablet by ity of n ( 00:00: mouth [place] [facility]) 00 daily. Medical tablet Branch Yes [id number] 1{tbl} Take 1 [facility] nivers multivitami 1-13 tablet by ity of n ( 00:00: mouth [place] [facility]) 00 daily. Medical tablet Branch Yes [id number] 1{tbl} Take 1 [facility] nivers multivitami 1-13 tablet by ity of n ( 00:00: mouth [place] [facility]) 00 daily. Medical tablet Branch Yes [id number] 1{tbl} Take 1 [facility] nivers multivitami 1-13 tablet by ity of n ( 00:00: mouth [place] [facility]) 00 daily. Medical tablet Branch Yes [id number] 1{tbl} Take 1 [facility] nivers multivitami 1-13 tablet by ity of n ( 00:00: mouth [place] [facility]) 00 daily. Medical tablet Branch Yes [id number] 1{tbl} Take 1 [facility] nivers multivitami 1-13 tablet by ity of n ( 00:00: mouth [place] [facility]) 00 daily. Medical tablet Branch Yes [id number] 1{tbl} Take 1 [facility] nivers multivitami 1-13 tablet by ity of n ( 00:00: mouth [place] [facility]) 00 daily. Medical tablet Branch Yes [id number] 1{tbl} Take 1 U nivers multivitami 1-13 tablet by ity of n ( 00:00: mouth [place] [facility]) 00 daily. Medical tablet Branch Yes [id number] 1{tbl} Take 1 U nivers multivitami 1-13 tablet by ity of n ( 00:00: mouth [place] [facility]) 00 daily. Medical tablet Branch Yes [id number] 1{tbl} Take 1 U nivers multivitami 1-13 tablet by ity of n ( 00:00: mouth [place] [facility]) 00 daily. Medical tablet Branch Yes [id number] 1{tbl} Take 1 U nivers multivitami 1-13 tablet by ity of n ( 00:00: mouth [place] [facility]) 00 daily. Medical tablet Branch Yes [id number] 1{tbl} Take 1 [facility] nivers multivitami 1-13 tablet by ity of n ( 00:00: mouth [place] [facility]) 00 daily. Medical tablet Branch Yes [id number] 1{tbl} Take 1 [facility] nivers multivitami 1-13 tablet by ity of n ( 00:00: mouth [place] [facility]) 00 daily. Medical tablet Branch Yes [id number] 1{tbl} Take 1 [facility] nivers multivitami 1-13 tablet by ity of n ( 00:00: mouth [place] [facility]) 00 daily. Medical tablet Branch Yes [id number] 1{tbl} Take 1 [facility] nivers multivitami 1-13 tablet by ity of n ( 00:00: mouth [place] [facility]) 00 daily. Medical tablet Branch Yes [id number] 1{tbl} Take 1 [facility] nivers multivitami 1-13 tablet by ity of n ( 00:00: mouth [place] [facility]) 00 daily. Medical tablet Branch Yes [id number] 1{tbl} Take 1 [facility] nivers multivitami 1-13 tablet by ity of n ( 00:00: mouth [place] [facility]) 00 daily. Medical tablet Branch Yes [id number] 1{tbl} Take 1 [facility] nivers multivitami 1-13 tablet by ity of n ( 00:00: mouth [place] [facility]) 00 daily. Medical tablet Branch Yes [id number] 1{tbl} Take 1 [facility] nivers multivitami 1-13 tablet by ity of n ( 00:00: mouth [place] [facility]) 00 daily. Medical tablet Branch Yes [id number] 1{tbl} Take 1 [facility] nivers multivitami 1-13 tablet by ity of n ( 00:00: mouth [place] [facility]) 00 daily. Medical tablet Branch Yes [id number] 1{tbl} Take 1 [facility] nivers multivitami 1-13 tablet by ity of n ( 00:00: mouth [place] [facility]) 00 daily. Medical tablet Branch Yes [id number] 1{tbl} Take 1 [facility] nivers multivitami 1-13 tablet by ity of n ( 00:00: mouth [place] [facility]) 00 daily. Medical tablet Branch Yes [id number] 1{tbl} Take 1 [facility] nivers multivitami 1-13 tablet by ity of n ( 00:00: mouth [place] [facility]) 00 daily. Medical tablet Branch Yes [id number] 1{tbl} Take 1 U nivers multivitami 1-13 tablet by ity of n ( 00:00: mouth [place] [facility]) 00 daily. Medical tablet Branch Yes [id number] 1{tbl} Take 1 [facility] nivers mult[facility]itami 1-13 tablet by ity of n ( 00:00: mouth [place] [facility]) 00 daily. Medical tablet Branch Yes [id number] 1{tbl} Take 1 [facility] nivers multivitami 1-13 tablet by ity of n ( 00:00: mouth [place] [facility]) 00 daily. Medical tablet Branch Yes [id number] 1{tbl} Take 1 [facility] nivers multivitami 1-13 tablet by ity of n ( 00:00: mouth [place] [facility]) 00 daily. Medical tablet Branch Yes [id number] 1{tbl} Take 1 U nivers multivitami 1-13 tablet by ity of n ( 00:00: mouth [place] [facility]) 00 daily. Medical tablet Branch Yes [id number] 1{tbl} Take 1 [facility] nivers multivitami 1-13 tablet by ity of n ( 00:00: mouth [place] [facility]) 00 daily. Medical tablet Branch Yes [id number] 1{tbl} Take 1 [facility] nivers multivitami 1-13 tablet by ity of n ( 00:00: mouth [place] [facility]) 00 daily. Medical tablet Branch Yes [id number] 1{tbl} Take 1 [facility] nivers multivitami 1-13 tablet by ity of n ( 00:00: mouth [place] [facility]) 00 daily. Medical tablet Branch Yes [id number] 1{tbl} Take 1 U nivers multivitami 1-13 tablet by ity of n ( 00:00: mouth [place] [facility]) 00 daily. Medical tablet Branch Yes [id number] 1{tbl} Take 1 [facility] nivers multivitami 1-13 tablet by ity of n ( 00:00: mouth [place] [facility]) 00 daily. Medical tablet Branch Yes [id number] 1{tbl} Take 1 U nivers multivitami 1-13 tablet by ity of n ( 00:00: mouth [place] [facility]) 00 daily. Medical tablet Branch Yes [id number] 1{tbl} Take 1 U nivers multivitami 1-13 tablet by ity of n ( 00:00: mouth [place] [facility]) 00 daily. Medical tablet Branch Yes [id number] 1{tbl} Take 1 [facility] nivers mult[facility]itami 1-13 tablet by ity of n ( 00:00: mouth [place] [facility]) 00 daily. Medical tablet Branch Yes [id number] 1{tbl} Take 1 U nivers multivitami 1-13 tablet by ity of n ( 00:00: mouth [place] [facility]) 00 daily. Medical tablet Branch Yes [id number] 1{tbl} Take 1 [facility] nivers multivitami 1-13 tablet by ity of n ( 00:00: mouth [place] [facility]) 00 daily. Medical tablet Branch Yes [id number] 1{tbl} Take 1 [facility] nivers mult[facility]itami 1-13 tablet by ity of n ( 00:00: mouth [place] [facility]) 00 daily. Medical tablet Branch Yes [id number] 1{tbl} Take 1 U nivers mult[facility]itami 1-13 tablet by ity of n ( 00:00: mouth [place] [facility]) 00 daily. Medical tablet Branch Yes [id number] 1{tbl} Take 1 [facility] nivers mult[facility]itami 1-13 tablet by ity of n ( 00:00: mouth [place] [facility]) 00 daily. Medical tablet Branch Yes [id number] 1{tbl} Take 1 [facility] n[facility] mult[facility]ami 1-13 tablet by ity of n ( 00:00: mouth [place] [facility]) 00 daily. Medical tablet Branch Yes [id number] 1{tbl} Take 1 U nivers multivitami 1-13 tablet by ity of n ( 00:00: mouth [place] [facility]) 00 daily. Medical tablet Branch Yes [id number] 1{tbl} Take 1 U nivers mult[facility]itami 1-13 tablet by ity of n ( 00:00: mouth [place] [facility]) 00 daily. Medical tablet Branch Yes [id number] 1{tbl} Take 1 U nivers multivitami 1-13 tablet by ity of n ( 00:00: mouth [place] [facility]) 00 daily. Medical tablet Branch Yes [id number] 1{tbl} Take 1 U nivers multivitami 1-13 tablet by ity of n ( 00:00: mouth [place] [facility]) 00 daily. Medical tablet Branch Yes [id number] 1{tbl} Take 1 U nivers mult[facility]itami 1-13 tablet by ity of n ( 00:00: mouth [place] [facility]) 00 daily. Medical tablet Branch Yes [id number] 1{tbl} Take 1 U nivers multivitami 1-13 tablet by ity of n ( 00:00: mouth [place] [facility]) 00 daily. Medical tablet Branch Yes [id number] 1{tbl} Take 1 U nivers multivitami 1-13 tablet by ity of n ( 00:00: mouth [place] [facility]) 00 daily. Medical tablet Branch Yes [id number] 1{tbl} Take 1 U nivers multivitami 1-13 tablet by ity of n ( 00:00: mouth [place] [facility]) 00 daily. Medical tablet Branch Yes [id number] 1{tbl} Take 1 U nivers multivitami 1-13 tablet by ity of n ( 00:00: mouth [place] [facility]) 00 daily. Medical tablet Branch Yes [id number] 1{tbl} Take 1 U nivers mult[facility]itami 1-13 tablet by ity of n ( 00:00: mouth [place] [facility]) 00 daily. Medical tablet Branch Yes [id number] 1{tbl} Take 1 U nivers multivitami 1-13 tablet by ity of n ( 00:00: mouth [place] [facility]) 00 daily. Medical tablet Branch Yes [id number] 1{tbl} Take 1 [facility] nivers mult[facility]itami 1-13 tablet by ity of n ( 00:00: mouth [place] [facility]) 00 daily. Medical tablet Branch Yes [id number] 1{tbl} Take 1 [facility] nivers mult[facility]itami 1-13 tablet by ity of n ( 00:00: mouth [place] [facility]) 00 daily. Medical tablet Branch Yes [id number] 1{tbl} Take 1 [facility] nivers mult[facility]ami 1-13 tablet by [facility]y of n ( 00:00: mouth [place] [facility]) 00 daily. Medical tablet Branch Yes [id number] 1{tbl} Take 1 [facility] nivers mult[facility]itami 1-13 tablet by ity of n ( 00:00: mouth [place] [facility]) 00 daily. Medical tablet Branch Yes [id number] 1{tbl} Take 1 [facility] nivers mult[facility]itami 1-13 tablet by ity of n ( 00:00: mouth [place] [facility]) 00 daily. Medical tablet Branch Yes [id number] 1{tbl} Take 1 U nivers multivitami 1-13 tablet by ity of n ( 00:00: mouth [place] [facility]) 00 daily. Medical tablet Branch HYDROXYprog 2020- No [id number] 250mg 1 mL by RODNEY Mcdonnell,,pre 08-20 [facility] g presv, 00:00: 04:59 lar route Man as 250 mg/mL 00 :00 weekly for Medi carlos (1 mL) 22 doses. Branch injection HYDROXYprog 2020- No [id number] 250mg 1 mL by RODNEY Mcdonnell,,pre 08-20 [facility] pres[facility], 00:00: 04:59 lar route Man as 250 mg/mL 00 :00 weekly for Medi carlos (1 mL) 22 doses. Branch injection HYDROXYprog 2020- No [id number] 250mg 1 mL by [facility] est,PF,,pre 08-20 [facility] pres[facility], 00:00: 04:59 lar route Man as 250 mg/mL 00 :00 weekly for Medi carlos (1 mL) 22 doses. Branch injection HYDROXYprog 2020- No [id number] 250mg 1 mL by [facility] est,PF,,pre 08-20 [facility] pres[facility], 00:00: 04:59 lar route Man as 250 mg/mL 00 :00 weekly for Medi carlos (1 mL) 22 doses. Branch injection HYDROXYprog 2020- No [id number] 250mg 1 mL by [facility] est,PF,,pre 08-20 [facility] pres[facility], 00:00: 04:59 lar route Man as 250 mg/mL 00 :00 weekly for Medi carlos (1 mL) 22 doses. Branch injection HYDROXYprog 2020- No [id number] 250mg 1 mL by [facility] est,PF,,pre 08-20 [facility] pres[facility], 00:00: 04:59 lar route Man as 250 mg/mL 00 :00 weekly for Medi carlos (1 mL) 22 doses. Branch injection HYDROXYprog 2020- No [id number] 250mg 1 mL by [facility] est,PF,,pre 08-20 [facility] pres[facility], 00:00: 04:59 lar route Man as 250 mg/mL 00 :00 weekly for Medi carlos (1 mL) 22 doses. Branch injection HYDROXYprog 2020- No [id number] 250mg 1 mL by [facility] est,PF,,pre 08-20 [facility] pres[facility], 00:00: 04:59 lar route Man as 250 mg/mL 00 :00 weekly for Medi carlos (1 mL) 22 doses. Branch injection HYDROXYprog 2020- No [id number] 250mg 1 mL by [facility] est,PF,,pre 08-20 [facility] pres[facility], 00:00: 04:59 lar route Man as 250 mg/mL 00 :00 weekly for Medi carlos (1 mL) 22 doses. Branch injection HYDROXYprog 2020- No [id number] 250mg 1 mL by [facility] est,PF,,pre 08-20 [facility] pres[facility], 00:00: 04:59 lar route Man as 250 mg/mL 00 :00 weekly for Medi carlos (1 mL) 22 doses. Branch injection HYDROXYprog 2020- No [id number] 250mg 1 mL by [facility] est,PF,,pre 08-20 [facility] pres[facility], 00:00: 04:59 lar route Man as 250 mg/mL 00 :00 weekly for Medi carlos (1 mL) 22 doses. Branch injection HYDROXYprog 2020- No [id number] 250mg 1 mL by [facility] est,PF,,pre 08-20 [facility] pres[facility], 00:00: 04:59 lar route Man as 250 mg/mL 00 :00 weekly for Medi carlos (1 mL) 22 doses. Branch injection HYDROXYprog 2020- No [id number] 250mg 1 mL by [facility] est,PF,,pre 08-20 [facility] pres[facility], 00:00: 04:59 lar route Man as 250 mg/mL 00 :00 weekly for Medi carlos (1 mL) 22 doses. Branch injection HYDROXYprog 2020- No [id number] 250mg 1 mL by [facility] est,PF,,pre 08-20 [facility] pres[facility], 00:00: 04:59 lar route Man as 250 mg/mL 00 :00 weekly for Medi carlos (1 mL) 22 doses. Branch injection HYDROXYprog 2020- No [id number] 250mg 1 mL by [facility] est,PF,,pre 08-20 [facility] pres[facility], 00:00: 04:59 lar route Man as 250 mg/mL 00 :00 weekly for Medi carlos (1 mL) 22 doses. Branch injection HYDROXYprog 2020- No [id number] 250mg 1 mL by [facility] est,PF,,pre 08-20 [facility] pres[facility], 00:00: 04:59 lar route Man as 250 mg/mL 00 :00 weekly for Medi carlos (1 mL) 22 doses. Branch injection HYDROXYprog 2020- No [id number] 250mg 1 mL by [facility] est,PF,,pre 08-20 [facility] pres[facility], 00:00: 04:59 lar route Man as 250 mg/mL 00 :00 weekly for Medi carlos (1 mL) 22 doses. Branch injection HYDROXYprog 2020- No [id number] 250mg 1 mL by [facility] est,PF,,pre 08-20 [facility] pres[facility], 00:00: 04:59 lar route Man as 250 mg/mL 00 :00 weekly for Medi carlos (1 mL) 22 doses. Branch injection HYDROXYprog 2020- No [id number] 250mg 1 mL by [facility] est,PF,,pre 08-20 [facility] pres[facility], 00:00: 04:59 lar route Man as 250 mg/mL 00 :00 weekly for Medi carlos (1 mL) 22 doses. Branch injection HYDROXYprog 2020- No [id number] 250mg 1 mL by [facility] est,PF,,pre 08-20 [facility] pres[facility], 00:00: 04:59 lar route Man as 250 mg/mL 00 :00 weekly for Medi carlos (1 mL) 22 doses. Branch injection HYDROXYprog 2020- No [id number] 250mg 1 mL by [facility] est,PF,,pre 08-20 [facility] pres[facility], 00:00: 04:59 lar route Man as 250 mg/mL 00 :00 weekly for Medi carlos (1 mL) 22 doses. Branch injection HYDROXYprog 2020- No [id number] 250mg 1 mL by [facility] est,PF,,pre 08-20 [facility] pres[facility], 00:00: 04:59 lar route Man as 250 mg/mL 00 :00 weekly for Medi carlos (1 mL) 22 doses. Branch injection HYDROXYprog 2020- No [id number] 250mg 1 mL by [facility] est,PF,,pre 08-20 [facility] pres[facility], 00:00: 04:59 lar route Man as 250 mg/mL 00 :00 weekly for Medi carlos (1 mL) 22 doses. Branch injection HYDROXYprog 2020- No [id number] 250mg 1 mL by [facility] est,PF,,pre 08-20 [facility] pres[facility], 00:00: 04:59 lar route Man as 250 mg/mL 00 :00 weekly for Medi carlos (1 mL) 22 doses. Branch injection HYDROXYprog 2020- No [id number] 250mg 1 mL by [facility] est,PF,,pre 08-20 [facility] pres[facility], 00:00: 04:59 lar route Man as 250 mg/mL 00 :00 weekly for Medi carlso (1 mL) 22 doses. Branch injection HYDROXYprog 2020- No [id number] 250mg 1 mL by [facility] est,PF,,pre 08-20 [facility] pres[facility], 00:00: 04:59 lar route Man as 250 mg/mL 00 :00 weekly for Medi carlos (1 mL) 22 doses. Branch injection HYDROXYprog 2020- No [id number] 250mg 1 mL by [facility] est,PF,,pre 08-20 [facility] pres[facility], 00:00: 04:59 lar route Man as 250 mg/mL 00 :00 weekly for Medi carlos (1 mL) 22 doses. Branch injection HYDROXYprog 2020- No [id number] 250mg 1 mL by [facility] est,PF,,pre 08-20 [facility] presv, 00:00: 04:59 lar route Man as 250 mg/mL 00 :00 weekly for Medi carlos (1 mL) 22 doses. Branch injection HYDROXYprog 2020- No [id number] 250mg 1 mL by [facility] est,PF,,pre 08-20 [facility] pres[facility], 00:00: 04:59 lar route Man as 250 mg/mL 00 :00 weekly for Medi carlos (1 mL) 22 doses. Branch injection HYDROXYprog 2020- No [id number] 250mg 1 mL by [facility] est,PF,,pre 08-20 [facility] pres[facility], 00:00: 04:59 lar route Man as 250 mg/mL 00 :00 weekly for Medi carlos (1 mL) 22 doses. Branch injection HYDROXYprog 2020- No [id number] 250mg 1 mL by [facility] est,PF,,pre 08-20 [facility] pres[facility], 00:00: 04:59 lar route Man as 250 mg/mL 00 :00 weekly for Medi carlos (1 mL) 22 doses. Branch injection HYDROXYprog 2020- No [id number] 250mg 1 mL by [facility] est,PF,,pre 08-20 [facility] pres[facility], 00:00: 04:59 lar route Man as 250 mg/mL 00 :00 weekly for Medi carlos (1 mL) 22 doses. Branch injection HYDROXYprog 2020- No [id number] 250mg 1 mL by [facility] est,PF,,pre 08-20 [facility] pres[facility], 00:00: 04:59 lar route Man as 250 mg/mL 00 :00 weekly for Medi carlos (1 mL) 22 doses. Branch injection HYDROXYprog 2020- No [id number] 250mg 1 mL by [facility] est,PF,,pre 08-20 [facility] pres[facility], 00:00: 04:59 lar route Man as 250 mg/mL 00 :00 weekly for Medi carlos (1 mL) 22 doses. Branch injection HYDROXYprog 2020-0 2020- No [id number] 250mg 1 mL by [facility] est,PF,,pre 08-20 [facility] pres[facility], 00:00: 04:59 lar route Man as 250 mg/mL 00 :00 weekly for Medi carlos (1 mL) 22 doses. Branch injection HYDROXYprog 2020- No [id number] 250mg 1 mL by [facility] est,PF,,pre 08-20 [facility] pres[facility], 00:00: 04:59 lar route Man as 250 mg/mL 00 :00 weekly for Medi carlos (1 mL) 22 doses. Branch injection HYDROXYprog 2020- No [id number] 250mg 1 mL by [facility] est,PF,,pre 08-20 Intramuscu i ty of g presv, 00:00: 04:59 lar route [place] 250 mg/mL 00 :00 weekly for Medi carlos (1 mL) 22 doses. Branch injection HYDROXYprog 2020- No [id number] 250mg 1 mL by [facility] est,PF,,pre 08-20 Intramuscu i ty of g presv, 00:00: 04:59 lar route [place] 250 mg/mL 00 :00 weekly for Medi carlos (1 mL) 22 doses. Branch injection HYDROXYprog 2020-2020- No [id number] 250mg 1 mL by [facility] est,PF,,pre 08-20 Intramuscu i ty of g presv, 00:00: 04:59 lar route [place] 250 mg/mL 00 :00 weekly for Medi carlos (1 mL) 22 doses. Branch injection HYDROXYprog 2020- No [id number] 250mg 1 mL by [facility] est,PF,,pre 08-20 Intramuscu i ty of g presv, 00:00: 04:59 lar route [place] 250 mg/mL 00 :00 weekly for Medi carlos (1 mL) 22 doses. Branch injection HYDROXYprog 2020- No [id number] 250mg 1 mL by [facility] est,PF,,pre 08-20 Intramuscu i ty of g presv, 00:00: 04:59 lar route [place] 250 mg/mL 00 :00 weekly for Medi carlos (1 mL) 22 doses. Branch injection HYDROXYprog 2020- No [id number] 250mg 1 mL by [facility] est,PF,,pre 08-20 Intramuscu i ty of g presv, 00:00: 04:59 lar route [place] 250 mg/mL 00 :00 weekly for Medi carlos (1 mL) 22 doses. Branch injection HYDROXYprog 2020- No [id number] 250mg 1 mL by [facility] est,PF,,pre 1-13 06-11 Intramuscu i ty of g presv, 00:00: 04:59 lar route [place] 250 mg/mL 00 :00 weekly for Medi carlos (1 mL) 22 doses. Branch injection HYDROXYprog 2020- No [id number] 250mg 1 mL by [facility] est,PF,,pre 08-20 Intramuscu i ty of g presv, 00:00: 04:59 lar route [place] 250 mg/mL 00 :00 weekly for Medi carlos (1 mL) 22 doses. Branch injection HYDROXYprog No [id number] 250mg 1 mL by [facility] est,PF,,pre 08-20 Intramuscu i ty of g presv, 00:00: 04:59 lar route [place] 250 mg/mL 00 :00 weekly for Medi carlos (1 mL) 22 doses. Branch injection HYDROXYprog No [id number] 250mg 1 mL by [facility] est,PF,,pre 08-20 Intramuscu i ty of g presv, 00:00: 04:59 lar route [place] 250 mg/mL 00 :00 weekly for Medi carlos (1 mL) 22 doses. Branch injection HYDROXYprog No [id number] 250mg 1 mL by [facility] est,PF,,pre 08-20 Intramuscu i ty of g presv, 00:00: 04:59 lar route [place] 250 mg/mL 00 :00 weekly for Medi carlos (1 mL) 22 doses. Branch injection HYDROXYprog No [id number] 250mg 1 mL by [facility] est,PF,,pre 08-20 [...] Medical 1,000 mg 03/22/20 at [facility] h 0215, ARA
Re ason for Anti-Infec tive: Empiric Therapy for Suspected Infection< br>Empiric Therapy Site: Pelvic
Duration of therapy: 72 hours ketorolac 2019-2019- No 30mg 30 mg, Unive rs (TORADOL) 03-22 Slow IV ity of injection 05:15: 04:14 Push, [place] 30 mg 00 :00 ONCE, 1 Medical dose, Sat Branch 03/22/20 at 0015, Routine
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 metroNIDAZO 2019-0 2020- No [id number] 500mg Take 1 [facility] LE 500 mg 8-15 08-30 tablet by ity of tablet 00:00: 04:59 mouth 2 [place] 00 :00 (two) Medical times Branch daily for 14 days. metroNIDAZO 2020-0 2020- No [id number] 500mg Take 1 [facility] LE 500 mg 8-15 08-30 tablet by ity of tablet 00:00: 04:59 mouth 2 [place] 00 :00 (two) Medical times Branch daily for 14 days. metroNIDAZO 2020-0 2020- No [id number] 500mg Take 1 [facility] LE 500 mg 8-15 08-30 tablet by ity of tablet 00:00: 04:59 mouth 2 [place] 00 :00 (two) Medical times Branch daily for 14 days. metroNIDAZO 2019- 2020- No [id number] 500mg Take 1 [facility] LE 500 mg 8 08-30 tablet by ity of tablet 00:00: 04:59 mouth 2 [place] 00 :00 (two) Medical times Branch daily for 14 days. cefTRIAXone 2019-0 Yes 250mg 250 mg, Un alex (ROCEPHIN) 02-25 Intramuscu ity of injection 23:30: lar, Q24H, [place] 250 mg 00 First dose Medical on [facility] 02/26/20 at 1830, Until Discontinu ed, ARA
Re ason for Anti-Infec tive: Documented Infection< br>Documen kareen Infection Site: Pelvic
Duration of Therapy: Other (see Comments) azithromyci 2019-2019- No 1000mg 1,000 mg, Univers n 02-25 Oral, ity of (ZITHROMAX) 23:30: 23:39 ONCE, 1 [place] tablet 00 :00 dose, [facility] Medical 1,000 mg 02/26/20 at [facility] h 1830, ARA
Re ason for Anti-Infec tive: Documented Infection< br>Documen kareen Infection Site: Pelvic
Duration of Therapy: Other (see Comments) ketorolac 2019-2019- No 15mg 15 mg, Unive rs (TORADOL) 02-25 Slow IV ity of injection 23:15: 22:18 Push, [place] 15 mg 00 :00 ONCE, 1 Medical dose, [facility] 02/26/20 at 1815, ARA
Fa culty member approving Restricted medication : EVANGELIST BONNER ondansetron 2019-2019- No 4mg 4 mg, Slow Univers (ZOFRAN 02-25 IV Push, ity of (PF)) 23:15: 22:21 ONCE, 1 [place] injection 4 00 :00 dose, [facility] Med ical mg 02/26/20 at Branch 1815, ARA morpHINE 2019- 2020- No 4mg 4 mg, Slow Un alex injection 4 02-25 IV Push, ity of mg 23:15: 22:21 ONCE, 1 [place] 00 :00 dose, Tue Medical 02/26/20 at Branch 1815, STAT ibuprofen 2020-0 Yes [id number] 800mg Take 1 [facility] 800 mg 7-21 tablet by ity of tablet 00:00: mouth [place] 00 every 6 Medical (six) Branch hours as needed for Pain (scale 4-6). ibuprofen 2020-0 Yes [id number] 800mg Take 1 [facility] 800 mg 7-21 tablet by ity of tablet 00:00: mouth [place] 00 every 6 Medical (six) Branch hours as needed for Pain (scale 4-6). ibuprofen 2020-0 Yes [id number] 800mg Take 1 [facility] 800 mg 7-21 tablet by ity of tablet 00:00: mouth [place] 00 every 6 Medical (six) Branch hours as needed for Pain (scale 4-6). ibuprofen 2020-0 Yes [id number] 800mg Take 1 [facility] 800 mg 7-21 tablet by ity of tablet 00:00: mouth [place] 00 every 6 Medical (six) Branch hours as needed for Pain (scale 4-6). ibuprofen 2020-0 Yes [id number] 800mg Take 1 [facility] 800 mg 7-21 tablet by ity of tablet 00:00: mouth [place] 00 every 6 Medical (six) Branch hours as needed for Pain (scale 4-6). ibuprofen 2020-0 Yes [id number] 800mg Take 1 [facility] 800 mg 7-21 tablet by ity of tablet 00:00: mouth [place] 00 every 6 Medical (six) Branch hours as needed for Pain (scale 4-6). ibuprofen 2020-0 Yes [id number] 800mg Take 1 [facility] 800 mg 7-21 tablet by ity of tablet 00:00: mouth [place] 00 every 6 Medical (six) Branch hours as needed for Pain (scale 4-6). ibuprofen 2020-0 Yes [id number] 800mg Take 1 [facility] 800 mg 7-21 tablet by ity of tablet 00:00: mouth [place] 00 every 6 Medical (six) Branch hours as needed for Pain (scale 4-6). ibuprofen 2020-0 Yes [id number] 800mg Take 1 [facility] 800 mg 7-21 tablet by ity of tablet 00:00: mouth [place] 00 every 6 Medical (six) Branch hours as needed for Pain (scale 4-6). ibuprofen 2020-0 Yes [id number] 800mg Take 1 [facility] 800 mg 7-21 tablet by ity of tablet 00:00: mouth [place] 00 every 6 Medical (six) Branch hours as needed for Pain (scale 4-6). ibuprofen 2020-0 Yes [id number] 800mg Take 1 [facility] 800 mg 7-21 tablet by ity of tablet 00:00: mouth [place] 00 every 6 Medical (six) Branch hours as needed for Pain (scale 4-6). ibuprofen 2020-0 Yes [id number] 800mg Take 1 [facility] 800 mg 7-21 tablet by ity of tablet 00:00: mouth [place] 00 every 6 Medical (six) Branch hours as needed for Pain (scale 4-6). ibuprofen 2020-0 Yes [id number] 800mg Take 1 [facility] 800 mg 7-21 tablet by ity of tablet 00:00: mouth [place] 00 every 6 Medical (six) Branch hours as needed for Pain (scale 4-6). ibuprofen 2020-0 Yes [id number] 800mg Take 1 [facility] 800 mg 7-21 tablet by ity of tablet 00:00: mouth [place] 00 every 6 Medical (six) Branch hours as needed for Pain (scale 4-6). ibuprofen 2020-0 Yes [id number] 800mg Take 1 [facility] 800 mg 7-21 tablet by ity of tablet 00:00: mouth [place] 00 every 6 Medical (six) Branch hours as needed for Pain (scale 4-6). ibuprofen 2020-0 Yes [id number] 800mg Take 1 [facility] 800 mg 7-21 tablet by ity of tablet 00:00: mouth [place] 00 every 6 Medical (six) Branch hours as needed for Pain (scale 4-6). ibuprofen 2020-0 Yes [id number] 800mg Take 1 [facility] 800 mg 7-21 tablet by ity of tablet 00:00: mouth [place] 00 every 6 Medical (six) Branch hours as needed for Pain (scale 4-6). ibuprofen 2020-0 Yes [id number] 800mg Take 1 [facility] 800 mg 7-21 tablet by ity of tablet 00:00: mouth [place] 00 every 6 Medical (six) Branch hours as needed for Pain (scale 4-6). ibuprofen 2020-0 Yes [id number] 800mg Take 1 [facility] 800 mg 7-21 tablet by ity of tablet 00:00: mouth [place] 00 every 6 Medical (six) Branch hours as needed for Pain (scale 4-6). ibuprofen 2020-0 Yes [id number] 800mg Take 1 [facility] 800 mg 7-21 tablet by ity of tablet 00:00: mouth [place] 00 every 6 Medical (six) Branch hours as needed for Pain (scale 4-6). ibuprofen 2020-0 Yes [id number] 800mg Take 1 [facility] 800 mg 7-21 tablet by ity of tablet 00:00: mouth [place] 00 every 6 Medical (six) Branch hours as needed for Pain (scale 4-6). ibuprofen 2020-0 Yes [id number] 800mg Take 1 [facility] 800 mg 7-21 tablet by ity of tablet 00:00: mouth [place] 00 every 6 Medical (six) Branch hours as needed for Pain (scale 4-6). ibuprofen 2020-0 Yes [id number] 800mg Take 1 [facility] 800 mg 7-21 tablet by ity of tablet 00:00: mouth [place] 00 every 6 Medical (six) Branch hours as needed for Pain (scale 4-6). ibuprofen 2020-0 Yes [id number] 800mg Take 1 [facility] 800 mg 7-21 tablet by ity of tablet 00:00: mouth [place] 00 every 6 Medical (six) Branch hours as needed for Pain (scale 4-6). ibuprofen 2020-0 Yes [id number] 800mg Take 1 [facility] 800 mg 7-21 tablet by ity of tablet 00:00: mouth [place] 00 every 6 Medical (six) Branch hours as needed for Pain (scale 4-6). ibuprofen 2020-0 Yes [id number] 800mg Take 1 [facility] 800 mg 7-21 tablet by ity of tablet 00:00: mouth [place] 00 every 6 Medical (six) Branch hours as needed for Pain (scale 4-6). ibuprofen 2020-0 Yes [id number] 800mg Take 1 [facility] 800 mg 7-21 tablet by ity of tablet 00:00: mouth [place] 00 every 6 Medical (six) Branch hours as needed for Pain (scale 4-6). ibuprofen 2020-0 Yes [id number] 800mg Take 1 [facility] 800 mg 7-21 tablet by ity of tablet 00:00: mouth [place] 00 every 6 Medical (six) Branch hours as needed for Pain (scale 4-6). ibuprofen 2020-0 Yes [id number] 800mg Take 1 [facility] 800 mg 7-21 tablet by ity of tablet 00:00: mouth [place] 00 every 6 Medical (six) Branch hours as needed for Pain (scale 4-6). ibuprofen 2020-0 Yes [id number] 800mg Take 1 [facility] 800 mg 7-21 tablet by ity of tablet 00:00: mouth [place] 00 every 6 Medical (six) Branch hours as needed for Pain (scale 4-6). ibuprofen 2020-0 Yes [id number] 800mg Take 1 [facility] 800 mg 7-21 tablet by ity of tablet 00:00: mouth [place] 00 every 6 Medical (six) Branch hours as needed for Pain (scale 4-6). ibuprofen 2020-0 Yes [id number] 800mg Take 1 [facility] 800 mg 7-21 tablet by ity of tablet 00:00: mouth [place] 00 every 6 Medical (six) Branch hours as needed for Pain (scale 4-6). ibuprofen 2020-0 Yes [id number] 800mg Take 1 [facility] 800 mg 7-21 tablet by ity of tablet 00:00: mouth [place] 00 every 6 Medical (six) Branch hours as needed for Pain (scale 4-6). ibuprofen 2020-0 Yes [id number] 800mg Take 1 [facility] 800 mg 7-21 tablet by ity of tablet 00:00: mouth [place] 00 every 6 Medical (six) Branch hours as needed for Pain (scale 4-6). ibuprofen 2020-0 Yes [id number] 800mg Take 1 [facility] 800 mg 7-21 tablet by ity of tablet 00:00: mouth [place] 00 every 6 Medical (six) Branch hours as needed for Pain (scale 4-6). ibuprofen 2020-0 Yes [id number] 800mg Take 1 [facility] 800 mg 7-21 tablet by ity of tablet 00:00: mouth [place] 00 every 6 Medical (six) Branch hours as needed for Pain (scale 4-6). ibuprofen 2020-0 Yes [id number] 800mg Take 1 [facility] 800 mg 7-21 tablet by ity of tablet 00:00: mouth [place] 00 every 6 Medical (six) Branch hours as needed for Pain (scale 4-6). ibuprofen 2020-0 Yes [id number] 800mg Take 1 [facility] 800 mg 7-21 tablet by ity of tablet 00:00: mouth [place] 00 every 6 Medical (six) Branch hours as needed for Pain (scale 4-6). ibuprofen 2020-0 Yes [id number] 800mg Take 1 [facility] 800 mg 7-21 tablet by ity of tablet 00:00: mouth [place] 00 every 6 Medical (six) Branch hours as needed for Pain (scale 4-6). ibuprofen 2020-0 Yes [id number] 800mg Take 1 [facility] 800 mg 7-21 tablet by ity of tablet 00:00: mouth [place] 00 every 6 Medical (six) Branch hours as needed for Pain (scale 4-6). ibuprofen 2020-0 Yes [id number] 800mg Take 1 [facility] 800 mg 7-21 tablet by ity of tablet 00:00: mouth [place] 00 every 6 Medical (six) Branch hours as needed for Pain (scale 4-6). ibuprofen 2020-0 Yes [id number] 800mg Take 1 [facility] 800 mg 7-21 tablet by ity of tablet 00:00: mouth [place] 00 every 6 Medical (six) Branch hours as needed for Pain (scale 4-6). ibuprofen 2020-0 Yes [id number] 800mg Take 1 [facility] 800 mg 7-21 tablet by ity of tablet 00:00: mouth [place] 00 every 6 Medical (six) Branch hours as needed for Pain (scale 4-6). ibuprofen 2020-0 Yes [id number] 800mg Take 1 [facility] 800 mg 7-21 tablet by ity of tablet 00:00: mouth [place] 00 every 6 Medical (six) Branch hours as needed for Pain (scale 4-6). ibuprofen 2020-0 Yes [id number] 800mg Take 1 [facility] 800 mg 7-21 tablet by ity of tablet 00:00: mouth [place] 00 every 6 Medical (six) Branch hours as needed for Pain (scale 4-6). ibuprofen 2020-0 Yes [id number] 800mg Take 1 [facility] 800 mg 7-21 tablet by ity of tablet 00:00: mouth [place] 00 every 6 Medical (six) Branch hours as needed for Pain (scale 4-6). ibuprofen 2020-0 Yes [id number] 800mg Take 1 [facility] 800 mg 7-21 tablet by ity of tablet 00:00: mouth [place] 00 every 6 Medical (six) Branch hours as needed for Pain (scale 4-6). ibuprofen 2020-0 Yes [id number] 800mg Take 1 [facility] 800 mg 7-21 tablet by ity of tablet 00:00: mouth [place] 00 every 6 Medical (six) Branch hours as needed for Pain (scale 4-6). ibuprofen 2020-0 Yes [id number] 800mg Take 1 [facility] 800 mg 7-21 tablet by ity of tablet 00:00: mouth [place] 00 every 6 Medical (six) Branch hours as needed for Pain (scale 4-6). ibuprofen 2020-0 Yes [id number] 800mg Take 1 [facility] 800 mg 7-21 tablet by ity of tablet 00:00: mouth [place] 00 every 6 Medical (six) Branch hours as needed for Pain (scale 4-6). ibuprofen 2020-0 Yes [id number] 800mg Take 1 [facility] 800 mg 7-21 tablet by ity of tablet 00:00: mouth [place] 00 every 6 Medical (six) Branch hours as needed for Pain (scale 4-6). ibuprofen 2020-0 Yes [id number] 800mg Take 1 [facility] 800 mg 7-21 tablet by ity of tablet 00:00: mouth [place] 00 every 6 Medical (six) Branch hours as needed for Pain (scale 4-6). ibuprofen 2020-0 Yes [id number] 800mg Take 1 [facility] 800 mg 7-21 tablet by ity of tablet 00:00: mouth [place] 00 every 6 Medical (six) Branch hours as needed for Pain (scale 4-6). ibuprofen 2020-0 Yes [id number] 800mg Take 1 [facility] 800 mg 7-21 tablet by ity of tablet 00:00: mouth [place] 00 every 6 Medical (six) Branch hours as needed for Pain (scale 4-6). ibuprofen 2020-0 Yes [id number] 800mg Take 1 [facility] 800 mg 7-21 tablet by ity of tablet 00:00: mouth [place] 00 every 6 Medical (six) Branch hours as needed for Pain (scale 4-6). ibuprofen 2020-0 Yes [id number] 800mg Take 1 [facility] 800 mg 7-21 tablet by ity of tablet 00:00: mouth [place] 00 every 6 Medical (six) Branch hours as needed for Pain (scale 4-6). ibuprofen 2020-0 Yes [id number] 800mg Take 1 [facility] 800 mg 7-21 tablet by ity of tablet 00:00: mouth [place] 00 every 6 Medical (six) Branch hours as needed for Pain (scale 4-6). ibuprofen 2020-0 Yes [id number] 800mg Take 1 [facility] 800 mg 7-21 tablet by ity of tablet 00:00: mouth [place] 00 every 6 Medical (six) Branch hours as needed for Pain (scale 4-6). ibuprofen 2020-0 Yes [id number] 800mg Take 1 [facility] 800 mg 7-21 tablet by ity of tablet 00:00: mouth [place] 00 every 6 Medical (six) Branch hours as needed for Pain (scale 4-6). ibuprofen 2020-0 Yes [id number] 800mg Take 1 [facility] 800 mg 7-21 tablet by ity of tablet 00:00: mouth [place] 00 every 6 Medical (six) Branch hours as needed for Pain (scale 4-6). ibuprofen 2020-0 Yes [id number] 800mg Take 1 [facility] 800 mg 7-21 tablet by ity of tablet 00:00: mouth [place] 00 every 6 Medical (six) Branch hours as needed for Pain (scale 4-6). ibuprofen 2020-0 Yes [id number] 800mg Take 1 [facility] 800 mg 7-21 tablet by ity of tablet 00:00: mouth [place] 00 every 6 Medical (six) Branch hours as needed for Pain (scale 4-6). ibuprofen 2020-0 Yes [id number] 800mg Take 1 [facility] 800 mg 7-21 tablet by ity of tablet 00:00: mouth [place] 00 every 6 Medical (six) Branch hours as needed for Pain (scale 4-6). ibuprofen 2020-0 Yes [id number] 800mg Take 1 [facility] 800 mg 7-21 tablet by ity of tablet 00:00: mouth [place] 00 every 6 Medical (six) Branch hours as needed for Pain (scale 4-6). ibuprofen 2020-0 Yes [id number] 800mg Take 1 [facility] 800 mg 7-21 tablet by ity of tablet 00:00: mouth [place] 00 every 6 Medical (six) Branch hours as needed for Pain (scale 4-6). ibuprofen 2020-0 Yes [id number] 800mg Take 1 [facility] 800 mg 7-21 tablet by ity of tablet 00:00: mouth [place] 00 every 6 Medical (six) Branch hours as needed for Pain (scale 4-6). ibuprofen 2020-0 Yes [id number] 800mg Take 1 [facility] 800 mg 7-21 tablet by ity of tablet 00:00: mouth [place] 00 every 6 Medical (six) Branch hours as needed for Pain (scale 4-6). ibuprofen 2020-0 2020- No [id number] 800mg Take 1 [facility] 800 mg 7-21 08-18 tablet by ity of tablet 00:00: 00:00 mouth [place] 00 :00 every 6 Medical (six) Branch hours as needed for Pain (scale 4-6). doxycycline 2020-0 2020- No [id number] 100mg Take 1 [facility] hyclate 100 02-25 capsule by i ty of mg capsule 00:00: 04:59 mouth 2 [place] 00 :00 (two) Medical times Branch daily for 14 days. metroNIDAZO 2020- No [id number] 500mg Take 1 [facility] LE 500 mg 02-25 tablet by ity of tablet 00:00: 04:59 mouth 2 [place] 00 :00 (two) Medical times Branch daily for 14 days. levonorgest 2020- No 1{devic Un alex rel 10-05 e} ity of (DILIABRADENTON) 23:00: 21:54 [place] IUD 1 00 :00 Punchboard Inserter Branch levonorgest 2020- No 1{devic 1 Device, Univers rel 10-05 e} Intrauteri ity of (LILETTA) 23:00: 21:54 [place], ONCE, [place] IUD 1 00 :00 1 dose, Punchboard Inserter Fri Branch 10/05/19 at 1700, Routine levonorgest 2020- No 1{devic Un alex rel 10-05 e} ity of (DILIABRADENTON) 23:00: 21:54 [place] IUD 1 00 :00 Punchboard Inserter Branch levonorgest 2020- No 1{devic 1 Device, Univers rel 10-05 e} Intrauteri ity of (LILETTA) 23:00: 21:54 ne, ONCE, [place] IUD 1 00 :00 1 dose, Punchboard Inserter Fri Branch 10/05/19 at 1700, Routine ibuprofen 2018-08 Yes [id number] 600mg Take 1 [facility] 600 mg 1-03 tablet by ity of tablet 00:00: mouth 00 every 6 Medical (six) Branch hours as needed for Pain (scale 1-3) or Pain (scale 4-6) (Pain). Take with food or milk. 2018-08 Yes [id number] 1{tbl} Take 1 [facility] vitamin 1-03 tablet by ity of w/FA tablet 00:00: mouth [place] 00 daily. Medical Branch docusate 2018-08 Yes [id number] 240mg Take 1 U nivers calcium 240 1-03 capsule by it y of mg capsule 00:00: mouth once [place] 00 daily as Medical needed for Branch Constipati on. ferrous 2018-08 Yes [id number] 325mg Take 1 Un alex sulfate 325 1-03 tablet by ity of mg (65 mg 00:00: mouth 2 [place] iron) 00 (two) Medical tablet times Branch daily. ibuprofen 2018-08 Yes [id number] 600mg Take 1 [facility] 600 mg 1-03 tablet by ity of tablet 00:00: mouth [place] 00 every 6 Medical (six) Branch hours as needed for Pain (scale 1-3) or Pain (scale 4-6) (Pain). Take with food or milk. 2018-08 Yes [id number] 1{tbl} Take 1 [facility] vitamin 1-03 tablet by ity of w/FA tablet 00:00: mouth [place] 00 daily. Medical Branch docusate 2018-08 Yes [id number] 240mg Take 1 U nivers calcium 240 1-03 capsule by it y of mg capsule 00:00: mouth once [place] 00 daily as Medical needed for Branch Constipati on. ferrous 2018-08 Yes [id number] 325mg Take 1 Un alex sulfate 325 1-03 tablet by ity of mg (65 mg 00:00: mouth 2 [place] iron) 00 (two) Medical tablet times Branch daily. ibuprofen 2018-08 Yes [id number] 600mg Take 1 [facility] 600 mg 1-03 tablet by ity of tablet 00:00: mouth [place] 00 every 6 Medical (six) Branch hours as needed for Pain (scale 1-3) or Pain (scale 4-6) (Pain). Take with food or milk. 2018-08 Yes [id number] 1{tbl} Take 1 [facility] vitamin 1-03 tablet by ity of w/FA tablet 00:00: mouth [place] 00 daily. Medical Branch docusate 2018-08 Yes [id number] 240mg Take 1 U nivers calcium 240 1-03 capsule by it y of mg capsule 00:00: mouth once [place] 00 daily as Medical needed for Branch Constipati on. ferrous 2018-08 Yes [id number] 325mg Take 1 Un alex sulfate 325 1-03 tablet by ity of mg (65 mg 00:00: mouth 2 [place] iron) 00 (two) Medical tablet times Branch daily. ibuprofen 2018-08 Yes [id number] 600mg Take 1 [facility] 600 mg 1-03 tablet by ity of tablet 00:00: mouth [place] 00 every 6 Medical (six) Branch hours as needed for Pain (scale 1-3) or Pain (scale 4-6) (Pain). Take with food or milk. 2018-08 Yes [id number] 1{tbl} Take 1 [facility] vitamin 1-03 tablet by ity of w/FA tablet 00:00: mouth [place] 00 daily. Medical Branch docusate 2018-08 Yes [id number] 240mg Take 1 U nivers calcium 240 1-03 capsule by it y of mg capsule 00:00: mouth once [place] 00 daily as Medical needed for Branch Constipati on. ferrous 2018-08 Yes [id number] 325mg Take 1 Un alex sulfate 325 1-03 tablet by ity of mg (65 mg 00:00: mouth 2 [place] iron) 00 (two) Medical tablet times Branch daily. ibuprofen 2018-08 Yes [id number] 600mg Take 1 [facility] 600 mg 1-03 tablet by ity of tablet 00:00: mouth [place] 00 every 6 Medical (six) Branch hours as needed for Pain (scale 1-3) or Pain (scale 4-6) (Pain). Take with food or milk. 2018-08 Yes [id number] 1{tbl} Take 1 [facility] vitamin 1-03 tablet by ity of w/FA tablet 00:00: mouth [place] 00 daily. Medical Branch docusate 2018-08 Yes [id number] 240mg Take 1 U nivers calcium 240 1-03 capsule by it y of mg capsule 00:00: mouth once [place] 00 daily as Medical needed for Branch Constipati on. ferrous 2018-08 Yes [id number] 325mg Take 1 Un alex sulfate 325 1-03 tablet by ity of mg (65 mg 00:00: mouth 2 [place] iron) 00 (two) Medical tablet times Branch daily. ibuprofen 2018-08 Yes [id number] 600mg Take 1 [facility] 600 mg 1-03 tablet by ity of tablet 00:00: mouth [place] 00 every 6 Medical (six) Branch hours as needed for Pain (scale 1-3) or Pain (scale 4-6) (Pain). Take with food or milk. 2018-08 Yes [id number] 1{tbl} Take 1 [facility] vitamin 1-03 tablet by ity of w/FA tablet 00:00: mouth [place] 00 daily. Medical Branch docusate 2018-08 Yes [id number] 240mg Take 1 U nivers calcium 240 1-03 capsule by it y of mg capsule 00:00: mouth once [place] 00 daily as Medical needed for Branch Constipati on. ferrous 2018-08 Yes [id number] 325mg Take 1 Un alex sulfate 325 1-03 tablet by ity of mg (65 mg 00:00: mouth 2 [place] iron) 00 (two) Medical tablet times Branch daily. ibuprofen 2018-08 Yes [id number] 600mg Take 1 [facility] 600 mg 1-03 tablet by ity of tablet 00:00: mouth [place] 00 every 6 Medical (six) Branch hours as needed for Pain (scale 1-3) or Pain (scale 4-6) (Pain). Take with food or milk. 2018-08 Yes [id number] 1{tbl} Take 1 [facility] vitamin 1-03 tablet by ity of w/FA tablet 00:00: mouth [place] 00 daily. Medical Branch docusate 2018-08 Yes [id number] 240mg Take 1 U nivers calcium 240 1-03 capsule by it y of mg capsule 00:00: mouth once [place] 00 daily as Medical needed for Branch Constipati on. ferrous 2018-08 Yes [id number] 325mg Take 1 Un alex sulfate 325 1-03 tablet by ity of mg (65 mg 00:00: mouth 2 [place] iron) 00 (two) Medical tablet times Branch daily. ibuprofen 2018-08 Yes [id number] 600mg Take 1 [facility] 600 mg 1-03 tablet by ity of tablet 00:00: mouth [place] 00 every 6 Medical (six) Branch hours as needed for Pain (scale 1-3) or Pain (scale 4-6) (Pain). Take with food or milk. 2018-08 Yes [id number] 1{tbl} Take 1 [facility] vitamin 1-03 tablet by ity of w/FA tablet 00:00: mouth [place] 00 daily. Medical Branch docusate 2018-08 Yes [id number] 240mg Take 1 U nivers calcium 240 1-03 capsule by it y of mg capsule 00:00: mouth once [place] 00 daily as Medical needed for Branch Constipati on. ferrous 2018- Yes [id number] 325mg Take 1 Un alex sulfate 325 1-03 tablet by ity of mg (65 mg 00:00: mouth 2 [place] iron) 00 (two) Medical tablet times Branch daily. ibuprofen 2018-08 Yes [id number] 600mg Take 1 [facility] 600 mg 1-03 tablet by ity of tablet 00:00: mouth [place] 00 every 6 Medical (six) Branch hours as needed for Pain (scale 1-3) or Pain (scale 4-6) (Pain). Take with food or milk. 2018-08 Yes [id number] 1{tbl} Take 1 [facility] vitamin 1-03 tablet by [facility] w/FA tablet 00:00: mouth [place] 00 daily. Medical [facility] docusate 2018-08 Yes [id number] 240mg Take 1 [facility] calcium 240 1-03 capsule by [facility] y [facility] mg capsule 00:00: mouth once [place] 00 daily as Medical needed for Branch Constipati on. ferrous 2018-08 Yes [id number] 325mg Take 1 Un alex sulfate 325 1-03 tablet by [facility] of mg (65 mg 00:00: mouth 2 [place] iron) 00 (two) Medical tablet times Branch daily. ibuprofen 2018-08 Yes [id number] 600mg Take 1 [facility] 600 mg 1-03 tablet by [facility] of tablet 00:00: mouth [place] 00 every 6 Medical (six) Branch hours as needed for Pain (scale 1-3) or Pain (scale 4-6) (Pain). Take with food or milk. 2018-08 Yes [id number] 1{tbl} Take 1 [facility] vitamin 1-03 tablet by [facility] of w/FA tablet 00:00: mouth [place] 00 daily. Medical [facility] docusate 2018-08 Yes [id number] 240mg Take 1 [facility] n[facility] calcium 240 1-03 capsule by [facility] y [facility] mg capsule 00:00: mouth once [place] 00 daily as Medical needed for Branch Constipati on. ferrous 2018-08 Yes [id number] 325mg Take 1 Un alex sulfate 325 1-03 tablet by [facility] of mg (65 mg 00:00: mouth 2 [place] iron) 00 (two) Medical tablet times Branch daily. ibuprofen 2018-08 Yes [id number] 600mg Take 1 [facility] 600 mg 1-03 tablet by [facility] of tablet 00:00: mouth [place] 00 every 6 Medical (six) Branch hours as needed for Pain (scale 1-3) or Pain (scale 4-6) (Pain). Take with food or milk. 2018-08 Yes [id number] 1{tbl} Take 1 [facility] vitamin 1-03 tablet by [facility] of w/FA tablet 00:00: mouth [place] 00 daily. Medical [facility] docusate 2018-08 Yes [id number] 240mg Take 1 [facility] calcium 240 1-03 capsule by [facility] mg capsule 00:00: mouth once [place] 00 daily as Medical needed for Branch Constipati on. ferrous 2018-08 Yes [id number] 325mg Take 1 [facility] alex sulfate 325 1-03 tablet by [facility] of mg (65 mg 00:00: mouth 2 [place] iron) 00 (two) Medical tablet times Branch daily. ibuprofen 2018-08 Yes [id number] 600mg Take 1 [facility] 600 mg 1-03 tablet by [facility] of tablet 00:00: mouth [place] 00 every 6 Medical (six) Branch hours as needed for Pain (scale 1-3) or Pain (scale 4-6) (Pain). Take with food or milk. 2018-08 Yes [id number] 1{tbl} Take 1 [facility] vitamin 1-03 tablet by [facility] of w/FA tablet 00:00: mouth [place] 00 daily. [facility] docusate 2018-08 Yes [id number] 240mg Take 1 [facility] calcium 240 1-03 capsule by [facility] of mg capsule 00:00: mouth once [place] 00 daily as Medical needed for Branch Constipati on. ferrous 2018-08 Yes [id number] 325mg Take 1 [facility] alex sulfate 325 1-03 tablet by [facility] of mg (65 mg 00:00: mouth 2 [place] iron) 00 (two) Medical tablet times Branch daily. ibuprofen 2018-08 Yes [id number] 600mg Take 1 [facility] 600 mg 1-03 tablet by [facility] of tablet 00:00: mouth [place] 00 every 6 Medical (six) Branch hours as needed for Pain (scale 1-3) or Pain (scale 4-6) (Pain). Take with food or milk. 2018-08 Yes [id number] 1{tbl} Take 1 [facility] vitamin 1-03 tablet by [facility] of w/FA tablet 00:00: mouth [place] 00 daily. Medical [facility] docusate 2018-08 Yes [id number] 240mg Take 1 [facility] calcium 240 1-03 capsule by [facility] y of mg capsule 00:00: mouth once [place] 00 daily as Medical needed for Branch Constipati on. ferrous 2018-08 Yes [id number] 325mg Take 1 [facility] alex sulfate 325 1-03 tablet by [facility] of mg (65 mg 00:00: mouth 2 [place] iron) 00 (two) Medical tablet times Branch daily. ibuprofen 2018-08 Yes [id number] 600mg Take 1 [facility] 600 mg 1-03 tablet by [facility] of tablet 00:00: mouth [place] 00 every 6 Medical (six) Branch hours as needed for Pain (scale 1-3) or Pain (scale 4-6) (Pain). Take with food or milk. 2018-08 Yes [id number] 1{tbl} Take 1 [facility] vitamin 1-03 tablet by [facility] of w/FA tablet 00:00: mouth [place] 00 daily. [facility] docusate 2018-08 Yes [id number] 240mg Take 1 [facility] calcium 240 1-03 capsule by [facility] y of mg capsule 00:00: mouth once [place] 00 daily as Medical needed for Branch Constipati on. ferrous 2018-08 Yes [id number] 325mg Take 1 [facility] alex sulfate 325 1-03 tablet by [facility] of mg (65 mg 00:00: mouth 2 [place] iron) 00 (two) Medical tablet times Branch daily. ibuprofen 2018-08 Yes [id number] 600mg Take 1 [facility] 600 mg 1-03 tablet by [facility] of tablet 00:00: mouth [place] 00 every 6 Medical (six) Branch hours as needed for Pain (scale 1-3) or Pain (scale 4-6) (Pain). Take with food or milk. 2018-08 Yes [id number] 1{tbl} Take 1 [facility] vitamin 1-03 tablet by [facility] of w/FA tablet 00:00: mouth [place] 00 daily. Medical [facility] docusate 2018-08 Yes [id number] 240mg Take 1 [facility] n[facility] calcium 240 1-03 capsule by [facility] of mg capsule 00:00: mouth once [place] 00 daily as Medical needed for Branch Constipati on. ferrous 2018-08 Yes [id number] 325mg Take 1 [facility] alex sulfate 325 1-03 tablet by [facility] of mg (65 mg 00:00: mouth 2 [place] iron) 00 (two) Medical tablet times Branch daily. ibuprofen 2018-08 Yes [id number] 600mg Take 1 [facility] 600 mg 1-03 tablet by [facility] of tablet 00:00: mouth [place] 00 every 6 Medical (six) Branch hours as needed for Pain (scale 1-3) or Pain (scale 4-6) (Pain). Take with food or milk. 2018-08 Yes [id number] 1{tbl} Take 1 [facility] vitamin 1-03 tablet by [facility] of w/FA tablet 00:00: mouth [place] 00 daily. [facility] docusate 2018-08 Yes [id number] 240mg Take 1 [facility] calcium 240 1-03 capsule by [facility] of mg capsule 00:00: mouth once [place] 00 daily as Medical needed for Branch Constipati on. ferrous 2018-08 Yes [id number] 325mg Take 1 [facility] alex sulfate 325 1-03 tablet by [facility] of mg (65 mg 00:00: mouth 2 [place] iron) 00 (two) Medical tablet times Branch daily. ibuprofen 2018-08 Yes [id number] 600mg Take 1 [facility] 600 mg 1-03 tablet by [facility] of tablet 00:00: mouth [place] 00 every 6 Medical (six) Branch hours as needed for Pain (scale 1-3) or Pain (scale 4-6) (Pain). Take with food or milk. 2018-08 Yes [id number] 1{tbl} Take 1 [facility] vitamin 1-03 tablet by [facility] w/FA tablet 00:00: mouth [place] 00 daily. [facility]08 Yes [id number] 240mg Take 1 [facility] calcium 240 1-03 capsule by [facility] of mg capsule 00:00: mouth once [place] 00 daily as Medical needed for Branch Constipati on. ferrous 2018-08 Yes [id number] 325mg Take 1 [facility] alex sulfate 325 1-03 tablet by [facility] of mg (65 mg 00:00: mouth 2 [place] iron) 00 (two) Medical tablet times Branch daily. ibuprofen 2018-08 Yes [id number] 600mg Take 1 [facility] 600 mg 1-03 tablet by [facility] of tablet 00:00: mouth [place] 00 every 6 Medical (six) Branch hours as needed for Pain (scale 1-3) or Pain (scale 4-6) (Pain). Take with food or milk. 2018-08 Yes [id number] 1{tbl} Take 1 [facility] vitamin 1-03 tablet by [facility] of w/FA tablet 00:00: mouth [place] 00 daily. [facility] 2018-08 Yes [id number] 240mg Take 1 [facility] calcium 240 1-03 capsule by [facility] y of mg capsule 00:00: mouth once [place] 00 daily as Medical needed for Branch Constipati on. ferrous 2018-08 Yes [id number] 325mg Take 1 [facility] alex sulfate 325 1-03 tablet by [facility] of mg (65 mg 00:00: mouth 2 [place] iron) 00 (two) Medical tablet times Branch daily. ibuprofen 2018-08 Yes [id number] 600mg Take 1 [facility] 600 mg 1-03 tablet by [facility] of tablet 00:00: mouth [place] 00 every 6 Medical (six) Branch hours as needed for Pain (scale 1-3) or Pain (scale 4-6) (Pain). Take with food or milk. 2018-08 Yes [id number] 1{tbl} Take 1 [facility] vitamin 1-03 tablet by [facility] of w/FA tablet 00:00: mouth [place] 00 daily. Medical [facility] docusate 2018-08 Yes [id number] 240mg Take 1 [facility] n[facility] calcium 240 1-03 capsule by [facility] y of mg capsule 00:00: mouth once [place] 00 daily as Medical needed for Branch Constipati on. ferrous 2018-08 Yes [id number] 325mg Take 1 [facility] alex sulfate 325 1-03 tablet by [facility] of mg (65 mg 00:00: mouth 2 [place] iron) 00 (two) Medical tablet times Branch daily. ibuprofen 2018-08 Yes [id number] 600mg Take 1 [facility] 600 mg 1-03 tablet by [facility] of tablet 00:00: mouth [place] 00 every 6 Medical (six) Branch hours as needed for Pain (scale 1-3) or Pain (scale 4-6) (Pain). Take with food or milk. 2018-08 Yes [id number] 1{tbl} Take 1 [facility] vitamin 1-03 tablet by [facility] of w/FA tablet 00:00: mouth [place] 00 daily. [facility] docusate 2018-08 Yes [id number] 240mg Take 1 [facility] calcium 240 1-03 capsule by [facility] y of mg capsule 00:00: mouth once [place] 00 daily as Medical needed for Branch Constipati on. ferrous 2018-08 Yes [id number] 325mg Take 1 [facility] alex sulfate 325 1-03 tablet by [facility] of mg (65 mg 00:00: mouth 2 [place] iron) 00 (two) Medical tablet times Branch daily. ibuprofen 2018-08 Yes [id number] 600mg Take 1 [facility] 600 mg 1-03 tablet by [facility] of tablet 00:00: mouth [place] 00 every 6 Medical (six) Branch hours as needed for Pain (scale 1-3) or Pain (scale 4-6) (Pain). Take with food or milk. 2018-08 Yes [id number] 1{tbl} Take 1 [facility] vitamin 1-03 tablet by [facility] of w/FA tablet 00:00: mouth [place] 00 daily. Medical Branch docusate 2018-08 Yes [id number] 240mg Take 1 [facility] n[facility] calcium 240 1-03 capsule by [facility] y of mg capsule 00:00: mouth once [place] 00 daily as Medical needed for Branch Constipati on. ferrous 2018-08 Yes [id number] 325mg Take 1 [facility] alex sulfate 325 1-03 tablet by [facility] of mg (65 mg 00:00: mouth 2 [place] iron) 00 (two) Medical tablet times Branch daily. ibuprofen 2018-08 Yes [id number] 600mg Take 1 [facility] 600 mg 1-03 tablet by [facility] of tablet 00:00: mouth [place] 00 every 6 Medical (six) Branch hours as needed for Pain (scale 1-3) or Pain (scale 4-6) (Pain). Take with food or milk. 2018-08 Yes [id number] 1{tbl} Take 1 [facility] vitamin 1-03 tablet by [facility] of w/FA tablet 00:00: mouth [place] 00 daily. Medical Branch docusate 2018-08 Yes [id number] 240mg Take 1 [facility] n[facility] calcium 240 1-03 capsule by it y of mg capsule 00:00: mouth once [place] 00 daily as Medical needed for Branch Constipati on. ferrous 2018-08 Yes [id number] 325mg Take 1 [facility] alex sulfate 325 1-03 tablet by [facility] of mg (65 mg 00:00: mouth 2 [place] iron) 00 (two) Medical tablet times Branch daily. ibuprofen 2018-08 Yes [id number] 600mg Take 1 [facility] 600 mg 1-03 tablet by [facility] of tablet 00:00: mouth [place] 00 every 6 Medical (six) Branch hours as needed for Pain (scale 1-3) or Pain (scale 4-6) (Pain). Take with food or milk. 2018-08 Yes [id number] 1{tbl} Take 1 [facility] vitamin 1-03 tablet by [facility] of w/FA tablet 00:00: mouth [place] 00 daily. Medical [facility] docusate 2018-08 Yes [id number] 240mg Take 1 [facility] n[facility] calcium 240 1-03 capsule by [facility] of mg capsule 00:00: mouth once [place] 00 daily as Medical needed for Branch Constipati on. ferrous 2018-08 Yes [id number] 325mg Take 1 Un alex sulfate 325 1-03 tablet by [facility] of mg (65 mg 00:00: mouth 2 [place] iron) 00 (two) Medical tablet times Branch daily. ibuprofen 2018-08 Yes [id number] 600mg Take 1 [facility] 600 mg 1-03 tablet by [facility] of tablet 00:00: mouth [place] 00 every 6 Medical (six) Branch hours as needed for Pain (scale 1-3) or Pain (scale 4-6) (Pain). Take with food or milk. 2018-08 Yes [id number] 1{tbl} Take 1 [facility] vitamin 1-03 tablet by [facility] of w/FA tablet 00:00: mouth [place] 00 daily. Medical [facility] docusate 2018-08 Yes [id number] 240mg Take 1 [facility] n[facility] calcium 240 1-03 capsule by [facility] y of mg capsule 00:00: mouth once [place] 00 daily as Medical needed for Branch Constipati on. ferrous 2018-08 Yes [id number] 325mg Take 1 [facility] alex sulfate 325 1-03 tablet by [facility] of mg (65 mg 00:00: mouth 2 [place] iron) 00 (two) Medical tablet times Branch daily. ibuprofen 2018-08 Yes [id number] 600mg Take 1 [facility] 600 mg 1-03 tablet by [facility] of tablet 00:00: mouth [place] 00 every 6 Medical (six) Branch hours as needed for Pain (scale 1-3) or Pain (scale 4-6) (Pain). Take with food or milk. 2018-08 Yes [id number] 1{tbl} Take 1 [facility] vitamin 1-03 tablet by [facility] of w/FA tablet 00:00: mouth [place] 00 daily. Medical [facility] docusate 2018-08 Yes [id number] 240mg Take 1 [facility] n[facility] calcium 240 1-03 capsule by [facility] y of mg capsule 00:00: mouth once [place] 00 daily as Medical needed for Branch Constipati on. ferrous 2018-08 Yes [id number] 325mg Take 1 [facility] alex sulfate 325 1-03 tablet by [facility] of mg (65 mg 00:00: mouth 2 [place] iron) 00 (two) Medical tablet times Branch daily. ibuprofen 2018-08 Yes [id number] 600mg Take 1 [facility] 600 mg 1-03 tablet by [facility] of tablet 00:00: mouth [place] 00 every 6 Medical (six) Branch hours as needed for Pain (scale 1-3) or Pain (scale 4-6) (Pain). Take with food or milk. 2018-08 Yes [id number] 1{tbl} Take 1 [facility] vitamin 1-03 tablet by [facility] of w/FA tablet 00:00: mouth [place] 00 daily. Medical Branch docusate 2018-08 Yes [id number] 240mg Take 1 [facility] n[facility] calcium 240 1-03 capsule by it y of mg capsule 00:00: mouth once [place] 00 daily as Medical needed for Branch Constipati on. ferrous 2018-08 Yes [id number] 325mg Take 1 [facility] alex sulfate 325 1-03 tablet by [facility]y of mg (65 mg 00:00: mouth 2 [place] iron) 00 (two) Medical tablet times Branch daily. ibuprofen 2018-08 Yes [id number] 600mg Take 1 [facility] 600 mg 1-03 tablet by [facility] of tablet 00:00: mouth [place] 00 every 6 Medical (six) Branch hours as needed for Pain (scale 1-3) or Pain (scale 4-6) (Pain). Take with food or milk. 2018-08 Yes [id number] 1{tbl} Take 1 [facility] vitamin 1-03 tablet by [facility] of w/FA tablet 00:00: mouth [place] 00 daily. Medical Branch docusate 2018-08 Yes [id number] 240mg Take 1 [facility] n[facility] calcium 240 1-03 capsule by [facility] y of mg capsule 00:00: mouth once [place] 00 daily as Medical needed for Branch Constipati on. ferrous 2018-08 Yes [id number] 325mg Take 1 [facility] alex sulfate 325 1-03 tablet by [facility] of mg (65 mg 00:00: mouth 2 [place] iron) 00 (two) Medical tablet times Branch daily. ibuprofen 2018-08 Yes [id number] 600mg Take 1 [facility] 600 mg 1-03 tablet by [facility] of tablet 00:00: mouth [place] 00 every 6 Medical (six) Branch hours as needed for Pain (scale 1-3) or Pain (scale 4-6) (Pain). Take with food or milk. 2018-08 Yes [id number] 1{tbl} Take 1 [facility] vitamin 1-03 tablet by [facility] of w/FA tablet 00:00: mouth [place] 00 daily. Medical Branch docusate 2018-08 Yes [id number] 240mg Take 1 [facility] n[facility] calcium 240 1-03 capsule by [facility] y of mg capsule 00:00: mouth once [place] 00 daily as Medical needed for Branch Constipati on. ferrous 2018-08 Yes [id number] 325mg Take 1 Un alex sulfate 325 1-03 tablet by [facility] of mg (65 mg 00:00: mouth 2 [place] iron) 00 (two) Medical tablet times Branch daily. ibuprofen 2018-08 Yes [id number] 600mg Take 1 [facility] 600 mg 1-03 tablet by [facility] of tablet 00:00: mouth [place] 00 every 6 Medical (six) Branch hours as needed for Pain (scale 1-3) or Pain (scale 4-6) (Pain). Take with food or milk. 2018-08 Yes [id number] 1{tbl} Take 1 [facility] vitamin 1-03 tablet by [facility] of w/FA tablet 00:00: mouth [place] 00 daily. Medical Branch docusate 2018-08 Yes [id number] 240mg Take 1 [facility] n[facility] calcium 240 1-03 capsule by it y of mg capsule 00:00: mouth once [place] 00 daily as Medical needed for Branch Constipati on. ferrous 2018-08 Yes [id number] 325mg Take 1 Un alex sulfate 325 1-03 tablet by [facility] of mg (65 mg 00:00: mouth 2 [place] iron) 00 (two) Medical tablet times Branch daily. ibuprofen 2018-08 Yes [id number] 600mg Take 1 [facility] 600 mg 1-03 tablet by [facility] of tablet 00:00: mouth [place] 00 every 6 Medical (six) Branch hours as needed for Pain (scale 1-3) or Pain (scale 4-6) (Pain). Take with food or milk. 2018-08 Yes [id number] 1{tbl} Take 1 [facility] vitamin 1-03 tablet by [facility] of w/FA tablet 00:00: mouth [place] 00 daily. Medical Branch docusate 2018-08 Yes [id number] 240mg Take 1 [facility] nivers calcium 240 1-03 capsule by it y of mg capsule 00:00: mouth once [place] 00 daily as Medical needed for Branch Constipati on. ferrous 2018-08 Yes [id number] 325mg Take 1 Un alex sulfate 325 1-03 tablet by [facility]y of mg (65 mg 00:00: mouth 2 [place] iron) 00 (two) Medical tablet times Branch daily. ibuprofen 2018-08 Yes [id number] 600mg Take 1 [facility] 600 mg 1-03 tablet by [facility] of tablet 00:00: mouth [place] 00 every 6 Medical (six) Branch hours as needed for Pain (scale 1-3) or Pain (scale 4-6) (Pain). Take with food or milk. 2018-08 Yes [id number] 1{tbl} Take 1 [facility] vitamin 1-03 tablet by [facility] of w/FA tablet 00:00: mouth [place] 00 daily. Medical Branch docusate 2018-08 Yes [id number] 240mg Take 1 [facility] nivers calcium 240 1-03 capsule by it y of mg capsule 00:00: mouth once [place] 00 daily as Medical needed for Branch Constipati on. ferrous 2018-08 Yes [id number] 325mg Take 1 Un alex sulfate 325 1-03 tablet by [facility]y of mg (65 mg 00:00: mouth 2 [place] iron) 00 (two) Medical tablet times Branch daily. ibuprofen 2018-08 Yes [id number] 600mg Take 1 [facility] 600 mg 1-03 tablet by [facility] of tablet 00:00: mouth [place] 00 every 6 Medical (six) Branch hours as needed for Pain (scale 1-3) or Pain (scale 4-6) (Pain). Take with food or milk. 2018-08 Yes [id number] 1{tbl} Take 1 [facility] vitamin 1-03 tablet by [facility] of w/FA tablet 00:00: mouth [place] 00 daily. Medical Branch docusate 2018-08 Yes [id number] 240mg Take 1 [facility] nivers calcium 240 1-03 capsule by it y of mg capsule 00:00: mouth once [place] 00 daily as Medical needed for Branch Constipati on. ferrous 2018-08 Yes [id number] 325mg Take 1 Un alex sulfate 325 1-03 tablet by [facility] of mg (65 mg 00:00: mouth 2 [place] iron) 00 (two) Medical tablet times Branch daily. ibuprofen 2018-08 Yes [id number] 600mg Take 1 [facility] 600 mg 1-03 tablet by [facility] of tablet 00:00: mouth [place] 00 every 6 Medical (six) Branch hours as needed for Pain (scale 1-3) or Pain (scale 4-6) (Pain). Take with food or milk. 2018-08 Yes [id number] 1{tbl} Take 1 [facility] vitamin 1-03 tablet by [facility] of w/FA tablet 00:00: mouth [place] 00 daily. Medical Branch docusate 2018-08 Yes [id number] 240mg Take 1 [facility] n[facility] calcium 240 1-03 capsule by it y of mg capsule 00:00: mouth once [place] 00 daily as Medical needed for Branch Constipati on. ferrous 2018-08 Yes [id number] 325mg Take 1 Un alex sulfate 325 1-03 tablet by [facility] of mg (65 mg 00:00: mouth 2 [place] iron) 00 (two) Medical tablet times Branch daily. ibuprofen 2018-08 Yes [id number] 600mg Take 1 [facility] 600 mg 1-03 tablet by [facility] of tablet 00:00: mouth [place] 00 every 6 Medical (six) Branch hours as needed for Pain (scale 1-3) or Pain (scale 4-6) (Pain). Take with food or milk. 2018-08 Yes [id number] 1{tbl} Take 1 [facility] vitamin 1-03 tablet by [facility] of w/FA tablet 00:00: mouth [place] 00 daily. Medical Branch docusate 2018-08 Yes [id number] 240mg Take 1 [facility] n[facility] calcium 240 1-03 capsule by it y of mg capsule 00:00: mouth once [place] 00 daily as Medical needed for Branch Constipati on. ferrous 2018-08 Yes [id number] 325mg Take 1 Un alex sulfate 325 1-03 tablet by [facility] of mg (65 mg 00:00: mouth 2 [place] iron) 00 (two) Medical tablet times Branch daily. ibuprofen 2018-08 Yes [id number] 600mg Take 1 [facility] 600 mg 1-03 tablet by [facility] of tablet 00:00: mouth [place] 00 every 6 Medical (six) Branch hours as needed for Pain (scale 1-3) or Pain (scale 4-6) (Pain). Take with food or milk. 2018-08 Yes [id number] 1{tbl} Take 1 [facility] vitamin 1-03 tablet by [facility] of w/FA tablet 00:00: mouth [place] 00 daily. Medical Branch docusate 2018-08 Yes [id number] 240mg Take 1 [facility] n[facility] calcium 240 1-03 capsule by it y of mg capsule 00:00: mouth once [place] 00 daily as Medical needed for Branch Constipati on. ferrous 2018-08 Yes [id number] 325mg Take 1 Un alex sulfate 325 1-03 tablet by [facility] of mg (65 mg 00:00: mouth 2 [place] iron) 00 (two) Medical tablet times Branch daily. ibuprofen 2018-08 Yes [id number] 600mg Take 1 [facility] 600 mg 1-03 tablet by [facility] of tablet 00:00: mouth [place] 00 every 6 Medical (six) Branch hours as needed for Pain (scale 1-3) or Pain (scale 4-6) (Pain). Take with food or milk. 2018-08 Yes [id number] 1{tbl} Take 1 [facility] vitamin 1-03 tablet by [facility] of w/FA tablet 00:00: mouth [place] 00 daily. Medical Branch docusate 2018-08 Yes [id number] 240mg Take 1 [facility] n[facility] calcium 240 1-03 capsule by it y of mg capsule 00:00: mouth once [place] 00 daily as Medical needed for Branch Constipati on. ferrous 2018-08 Yes [id number] 325mg Take 1 Un alex sulfate 325 1-03 tablet by [facility]y of mg (65 mg 00:00: mouth 2 [place] iron) 00 (two) Medical tablet times Branch daily. ibuprofen 2018-08 Yes [id number] 600mg Take 1 [facility] 600 mg 1-03 tablet by [facility] of tablet 00:00: mouth [place] 00 every 6 Medical (six) Branch hours as needed for Pain (scale 1-3) or Pain (scale 4-6) (Pain). Take with food or milk. 2018-08 Yes [id number] 1{tbl} Take 1 [facility] vitamin 1-03 tablet by ity of w/FA tablet 00:00: mouth [place] 00 daily. [facility]-08 Yes [id number] 240mg Take 1 U nivers calcium 240 1-03 capsule by it y of mg capsule 00:00: mouth once [place] 00 daily as Medical needed for Branch Constipati on. ferrous 2018-08 Yes [id number] 325mg Take 1 Un alex sulfate 325 1-03 tablet by ity of mg (65 mg 00:00: mouth 2 [place] iron) 00 (two) Medical tablet times Branch daily. ibuprofen 2018-08 Yes [id number] 600mg Take 1 [facility] 600 mg 1-03 tablet by ity of tablet 00:00: mouth [place] 00 every 6 Medical (six) Branch hours as needed for Pain (scale 1-3) or Pain (scale 4-6) (Pain). Take with food or milk. 2018-08 Yes [id number] 1{tbl} Take 1 [facility] vitamin 1-03 tablet by ity of w/FA tablet 00:00: mouth [place] 00 daily. Medical [place] docusate 2018-08 Yes [id number] 240mg Take 1 [facility] nivers calcium 240 1-03 capsule by it y of mg capsule 00:00: mouth once [place] 00 daily as Medical needed for Branch Constipati on. ferrous 2018-08 Yes [id number] 325mg Take 1 Un alex sulfate 325 1-03 tablet by ity of mg (65 mg 00:00: mouth 2 [place] iron) 00 (two) Medical tablet times Branch daily. ibuprofen 2018-08 Yes [id number] 600mg Take 1 [facility] 600 mg 1-03 tablet by ity of tablet 00:00: mouth [place] 00 every 6 Medical (six) Branch hours as needed for Pain (scale 1-3) or Pain (scale 4-6) (Pain). Take with food or milk. 2018-08 Yes [id number] 1{tbl} Take 1 [facility] vitamin 1-03 tablet by ity of w/FA tablet 00:00: mouth [place] 00 daily. Medical Branch docusate 2018-08 Yes [id number] 240mg Take 1 [facility] nivers calcium 240 1-03 capsule by it y of mg capsule 00:00: mouth once [place] 00 daily as Medical needed for Branch Constipati on. ferrous 2018-08 Yes [id number] 325mg Take 1 Un alex sulfate 325 1-03 tablet by ity of mg (65 mg 00:00: mouth 2 [place] iron) 00 (two) Medical tablet times Branch daily. ibuprofen 2018-08 Yes [id number] 600mg Take 1 [facility] 600 mg 1-03 tablet by ity of tablet 00:00: mouth [place] 00 every 6 Medical (six) Branch hours as needed for Pain (scale 1-3) or Pain (scale 4-6) (Pain). Take with food or milk. 2018-08 Yes [id number] 1{tbl} Take 1 [facility] vitamin 1-03 tablet by ity of w/FA tablet 00:00: mouth [place] 00 daily. Medical Branch docusate 2018-08 Yes [id number] 240mg Take 1 [facility] nivers calcium 240 1-03 capsule by it y of mg capsule 00:00: mouth once [place] 00 daily as Medical needed for Branch Constipati on. ferrous 2018-08 Yes [id number] 325mg Take 1 Un alex sulfate 325 1-03 tablet by ity of mg (65 mg 00:00: mouth 2 [place] iron) 00 (two) Medical tablet times Branch daily. ibuprofen 2018-08 Yes [id number] 600mg Take 1 [facility] 600 mg 1-03 tablet by ity of tablet 00:00: mouth [place] 00 every 6 Medical (six) Branch hours as needed for Pain (scale 1-3) or Pain (scale 4-6) (Pain). Take with food or milk. 2018-08 Yes [id number] 1{tbl} Take 1 [facility] vitamin 1-03 tablet by ity of w/FA tablet 00:00: mouth [place] 00 daily. Medical Branch docusate 2018-08 Yes [id number] 240mg Take 1 [facility] nivers calcium 240 1-03 capsule by it y of mg capsule 00:00: mouth once [place] 00 daily as Medical needed for Branch Constipati on. ferrous 2018-08 Yes [id number] 325mg Take 1 Un alex sulfate 325 1-03 tablet by ity of mg (65 mg 00:00: mouth 2 [place] iron) 00 (two) Medical tablet times Branch daily. ibuprofen 2018-08 Yes [id number] 600mg Take 1 [facility] 600 mg 1-03 tablet by ity of tablet 00:00: mouth [place] 00 every 6 Medical (six) Branch hours as needed for Pain (scale 1-3) or Pain (scale 4-6) (Pain). Take with food or milk. 2018-08 Yes [id number] 1{tbl} Take 1 [facility] vitamin 1-03 tablet by ity of w/FA tablet 00:00: mouth [place] 00 daily. Medical Branch docusate 2018-08 Yes [id number] 240mg Take 1 [facility] nivers calcium 240 1-03 capsule by it y of mg capsule 00:00: mouth once [place] 00 daily as Medical needed for Branch Constipati on. ferrous 2018-08 Yes [id number] 325mg Take 1 Un alex sulfate 325 1-03 tablet by ity of mg (65 mg 00:00: mouth 2 [place] iron) 00 (two) Medical tablet times Branch daily. ibuprofen 2018-08 Yes [id number] 600mg Take 1 [facility] 600 mg 1-03 tablet by [facility] tablet 00:00: mouth [place] 00 every 6 Medical (six) Branch hours as needed for Pain (scale 1-3) or Pain (scale 4-6) (Pain). Take with food or milk. 2018-08 Yes [id number] 1{tbl} Take 1 [facility] vitamin 1-03 tablet by [facility] w/FA tablet 00:00: mouth [place] 00 daily. Medical [facility] docusate 2018-08 Yes [id number] 240mg Take 1 [facility] calcium 240 1-03 capsule by [facility] mg capsule 00:00: mouth once [place] 00 daily as Medical needed for Branch Constipati on. ferrous 2018-08 Yes [id number] 325mg Take 1 Un alex sulfate 325 1-03 tablet by [facility] mg (65 mg 00:00: mouth 2 [place] iron) 00 (two) Medical tablet times Branch daily. ibuprofen 2018-08 Yes [id number] 600mg Take 1 [facility] 600 mg 1-03 tablet by [facility] tablet 00:00: mouth [place] 00 every 6 Medical (six) Branch hours as needed for Pain (scale 1-3) or Pain (scale 4-6) (Pain). Take with food or milk. 2018-08 Yes [id number] 1{tbl} Take 1 [facility] vitamin 1-03 tablet by [facility] w/FA tablet 00:00: mouth [place] 00 daily. Medical [facility] docusate 2018-08 Yes [id number] 240mg Take 1 [facility] n[facility] calcium 240 1-03 capsule by [facility] mg capsule 00:00: mouth once [place] 00 daily as Medical needed for Branch Constipati on. ferrous 2018-08 Yes [id number] 325mg Take 1 Un alex sulfate 325 1-03 tablet by [facility] mg (65 mg 00:00: mouth 2 [place] iron) 00 (two) Medical tablet times Branch daily. ibuprofen 2018-08 Yes [id number] 600mg Take 1 [facility] 600 mg 1-03 tablet by [facility] tablet 00:00: mouth [place] 00 every 6 Medical (six) Branch hours as needed for Pain (scale 1-3) or Pain (scale 4-6) (Pain). Take with food or milk. 2018-08 Yes [id number] 1{tbl} Take 1 [facility] vitamin 1-03 tablet by [facility] w/FA tablet 00:00: mouth [place] 00 daily. Medical [facility] docusate 2018-08 Yes [id number] 240mg Take 1 [facility] n[facility] calcium 240 1-03 capsule by [facility] mg capsule 00:00: mouth once [place] 00 daily as Medical needed for Branch Constipati on. ferrous 2018-08 Yes [id number] 325mg Take 1 Un alex sulfate 325 1-03 tablet by [facility] mg (65 mg 00:00: mouth 2 [place] iron) 00 (two) Medical tablet times Branch daily. ibuprofen 2018-08 Yes [id number] 600mg Take 1 [facility] 600 mg 1-03 tablet by [facility] tablet 00:00: mouth [place] 00 every 6 Medical (six) Branch hours as needed for Pain (scale 1-3) or Pain (scale 4-6) (Pain). Take with food or milk. 2018-08 Yes [id number] 1{tbl} Take 1 [facility] vitamin 1-03 tablet by [facility] w/FA tablet 00:00: mouth [place] 00 daily. Medical [facility] docusate 2018-08 Yes [id number] 240mg Take 1 [facility] n[facility] calcium 240 1-03 capsule by [facility] mg capsule 00:00: mouth once [place] 00 daily as Medical needed for Branch Constipati on. ferrous 2018-08 Yes [id number] 325mg Take 1 Un alex sulfate 325 1-03 tablet by [facility] mg (65 mg 00:00: mouth 2 [place] iron) 00 (two) Medical tablet times Branch daily. ibuprofen 2018-08 Yes [id number] 600mg Take 1 [facility] 600 mg 1-03 tablet by [facility] tablet 00:00: mouth [place] 00 every 6 Medical (six) Branch hours as needed for Pain (scale 1-3) or Pain (scale 4-6) (Pain). Take with food or milk. 2018-08 Yes [id number] 1{tbl} Take 1 [facility] vitamin 1-03 tablet by [facility] w/FA tablet 00:00: mouth [place] 00 daily. Medical [facility] docusate 2018-08 Yes [id number] 240mg Take 1 [facility] calcium 240 1-03 capsule by [facility] mg capsule 00:00: mouth once [place] 00 daily as Medical needed for Branch Constipati on. ferrous 2018-08 Yes [id number] 325mg Take 1 Un alex sulfate 325 1-03 tablet by [facility] of mg (65 mg 00:00: mouth 2 [place] iron) 00 (two) Medical tablet times Branch daily. ibuprofen 2018-08 Yes [id number] 600mg Take 1 [facility] 600 mg 1-03 tablet by [facility] tablet 00:00: mouth [place] 00 every 6 Medical (six) Branch hours as needed for Pain (scale 1-3) or Pain (scale 4-6) (Pain). Take with food or milk. 2018-08 Yes [id number] 1{tbl} Take 1 [facility] vitamin 1-03 tablet by [facility] of w/FA tablet 00:00: mouth [place] 00 daily. Medical [facility] docusate 2018-08 Yes [id number] 240mg Take 1 [facility] calcium 240 1-03 capsule by [facility] mg capsule 00:00: mouth once [place] 00 daily as Medical needed for Branch Constipati on. ferrous 2018-08 Yes [id number] 325mg Take 1 Un alex sulfate 325 1-03 tablet by [facility] mg (65 mg 00:00: mouth 2 [place] iron) 00 (two) Medical tablet times Branch daily. ibuprofen 2018-08 Yes [id number] 600mg Take 1 [facility] 600 mg 1-03 tablet by [facility] tablet 00:00: mouth [place] 00 every 6 Medical (six) Branch hours as needed for Pain (scale 1-3) or Pain (scale 4-6) (Pain). Take with food or milk. 2018-08 Yes [id number] 1{tbl} Take 1 [facility] vitamin 1-03 tablet by [facility] w/FA tablet 00:00: mouth [place] 00 daily. Medical [facility] docusate 2018-08 Yes [id number] 240mg Take 1 [facility] calcium 240 1-03 capsule by [facility] mg capsule 00:00: mouth once [place] 00 daily as Medical needed for Branch Constipati on. ferrous 2018-08 Yes [id number] 325mg Take 1 Un alex sulfate 325 1-03 tablet by [facility] mg (65 mg 00:00: mouth 2 [place] iron) 00 (two) Medical tablet times Branch daily. ibuprofen 2018-08 Yes [id number] 600mg Take 1 [facility] 600 mg 1-03 tablet by [facility] tablet 00:00: mouth [place] 00 every 6 Medical (six) Branch hours as needed for Pain (scale 1-3) or Pain (scale 4-6) (Pain). Take with food or milk. 2018-08 Yes [id number] 1{tbl} Take 1 [facility] vitamin 1-03 tablet by [facility] of w/FA tablet 00:00: mouth [place] 00 daily. Medical [facility] docusate 2018-08 Yes [id number] 240mg Take 1 [facility] calcium 240 1-03 capsule by [facility] of mg capsule 00:00: mouth once [place] 00 daily as Medical needed for Branch Constipati on. ferrous 2018-08 Yes [id number] 325mg Take 1 Un alex sulfate 325 1-03 tablet by [facility] mg (65 mg 00:00: mouth 2 [place] iron) 00 (two) Medical tablet times Branch daily. ibuprofen 2018-08 Yes [id number] 600mg Take 1 [facility] 600 mg 1-03 tablet by [facility] tablet 00:00: mouth [place] 00 every 6 Medical (six) Branch hours as needed for Pain (scale 1-3) or Pain (scale 4-6) (Pain). Take with food or milk. 2018-08 Yes [id number] 1{tbl} Take 1 [facility] vitamin 1-03 tablet by [facility] of w/FA tablet 00:00: mouth [place] 00 daily. Medical [facility] docusate 2018-08 Yes [id number] 240mg Take 1 [facility] calcium 240 1-03 capsule by [facility] mg capsule 00:00: mouth once [place] 00 daily as Medical needed for Branch Constipati on. ferrous 2018-08 Yes [id number] 325mg Take 1 Un alex sulfate 325 1-03 tablet by [facility] of mg (65 mg 00:00: mouth 2 [place] iron) 00 (two) Medical tablet times Branch daily. ibuprofen 2018-08 Yes [id number] 600mg Take 1 [facility] 600 mg 1-03 tablet by [facility] of tablet 00:00: mouth [place] 00 every 6 Medical (six) Branch hours as needed for Pain (scale 1-3) or Pain (scale 4-6) (Pain). Take with food or milk. 2018-08 Yes [id number] 1{tbl} Take 1 [facility] vitamin 1-03 tablet by [facility] of w/FA tablet 00:00: mouth [place] 00 daily. Medical [facility] docusate 2018-08 Yes [id number] 240mg Take 1 [facility] calcium 240 1-03 capsule by [facility] of mg capsule 00:00: mouth once [place] 00 daily as Medical needed for Branch Constipati on. ferrous 2018-08 Yes [id number] 325mg Take 1 Un alex sulfate 325 1-03 tablet by [facility] mg (65 mg 00:00: mouth 2 [place] iron) 00 (two) Medical tablet times Branch daily. ibuprofen 2018-08 Yes [id number] 600mg Take 1 [facility] 600 mg 1-03 tablet by [facility] of tablet 00:00: mouth [place] 00 every 6 Medical (six) Branch hours as needed for Pain (scale 1-3) or Pain (scale 4-6) (Pain). Take with food or milk. 2018-08 Yes [id number] 1{tbl} Take 1 [facility] vitamin 1-03 tablet by [facility] of w/FA tablet 00:00: mouth [place] 00 daily. [facility] docusate 2018-08 Yes [id number] 240mg Take 1 [facility] calcium 240 1-03 capsule by [facility] of mg capsule 00:00: mouth once [place] 00 daily as Medical needed for Branch Constipati on. ferrous 2018-08 Yes [id number] 325mg Take 1 Un alex sulfate 325 1-03 tablet by [facility] of mg (65 mg 00:00: mouth 2 [place] iron) 00 (two) Medical tablet times Branch daily. ibuprofen 2018-08 Yes [id number] 600mg Take 1 [facility] 600 mg 1-03 tablet by [facility] tablet 00:00: mouth [place] 00 every 6 Medical (six) Branch hours as needed for Pain (scale 1-3) or Pain (scale 4-6) (Pain). Take with food or milk. 2018-08 Yes [id number] 1{tbl} Take 1 [facility] vitamin 1-03 tablet by [facility] of w/FA tablet 00:00: mouth [place] 00 daily. Medical [facility] docusate 2018-08 Yes [id number] 240mg Take 1 [facility] calcium 240 1-03 capsule by [facility] of mg capsule 00:00: mouth once [place] 00 daily as Medical needed for Branch Constipati on. ferrous 2018-08 Yes [id number] 325mg Take 1 Un alex sulfate 325 1-03 tablet by [facility] mg (65 mg 00:00: mouth 2 [place] iron) 00 (two) Medical tablet times Branch daily. ibuprofen 2018-08 Yes [id number] 600mg Take 1 [facility] 600 mg 1-03 tablet by [facility] tablet 00:00: mouth [place] 00 every 6 Medical (six) Branch hours as needed for Pain (scale 1-3) or Pain (scale 4-6) (Pain). Take with food or milk. 2018-08 Yes [id number] 1{tbl} Take 1 [facility] vitamin 1-03 tablet by [facility] of w/FA tablet 00:00: mouth [place] 00 daily. Medical [facility] docusate 2018-08 Yes [id number] 240mg Take 1 [facility] calcium 240 1-03 capsule by [facility] mg capsule 00:00: mouth once [place] 00 daily as Medical needed for Branch Constipati on. ferrous 2018- Yes [id number] 325mg Take 1 Un alex sulfate 325 1-03 tablet by [facility] of mg (65 mg 00:00: mouth 2 [place] iron) 00 (two) Medical tablet times Branch daily. ibuprofen 2018- Yes [id number] 600mg Take 1 [facility] 600 mg 1-03 tablet by [facility] of tablet 00:00: mouth [place] 00 every 6 Medical (six) Branch hours as needed for Pain (scale 1-3) or Pain (scale 4-6) (Pain). Take with food or milk. ferrous 2018- Yes [id number] 325mg Take 1 Un alex sulfate 325 1-03 tablet by [facility] of mg (65 mg 00:00: mouth 2 [place] iron) 00 (two) Medical tablet times Branch daily. ferrous 2018-08 Yes [id number] 325mg Take 1 Un alex sulfate 325 1-03 tablet by [facility] of mg (65 mg 00:00: mouth 2 [place] iron) 00 (two) Medical tablet times Branch daily. ferrous 2018-08 Yes [id number] 325mg Take 1 Un alex sulfate 325 1-03 tablet by [facility] of mg (65 mg 00:00: mouth 2 [place] iron) 00 (two) Medical tablet times Branch daily. ferrous 2018- Yes [id number] 325mg Take 1 Un alex sulfate 325 1-03 tablet by [facility] of mg (65 mg 00:00: mouth 2 [place] iron) 00 (two) Medical tablet times Branch daily. 2018-08 Yes [id number] 1{tbl} Take 1 [facility] vitamin 1-03 tablet by [facility] of w/FA tablet 00:00: mouth [place] 00 daily. Medical Branch docusate 2018- Yes [id number] 240mg Take 1 [facility] calcium 240 1-03 capsule by [facility] of mg capsule 00:00: mouth once [place] 00 daily as Medical needed for Branch Constipati on. ferrous 2018- Yes [id number] 325mg Take 1 Un alex sulfate 325 1-03 tablet by [facility] of mg (65 mg 00:00: mouth 2 [place] iron) 00 (two) Medical tablet times Branch daily. ibuprofen 2018- Yes [id number] 600mg Take 1 [facility] 600 mg 1-03 tablet by [facility] of tablet 00:00: mouth [place] 00 every 6 Medical (six) Branch hours as needed for Pain (scale 1-3) or Pain (scale 4-6) (Pain). Take with food or milk. 2018-08 Yes [id number] 1{tbl} Take 1 [facility] vitamin 1-03 tablet by [facility] of w/FA tablet 00:00: mouth [place] 00 daily. Medical [facility] docusate 2018-08 Yes [id number] 240mg Take 1 [facility] n[facility] calcium 240 1-03 capsule by [facility] of mg capsule 00:00: mouth once [place] 00 daily as Medical needed for Branch Constipati on. ferrous 2018-08 Yes [id number] 325mg Take 1 Un alex sulfate 325 1-03 tablet by [facility] of mg (65 mg 00:00: mouth 2 [place] iron) 00 (two) Medical tablet times Branch daily. ibuprofen 2018-08 Yes [id number] 600mg Take 1 [facility] 600 mg 1-03 tablet by [facility] of tablet 00:00: mouth [place] 00 every 6 Medical (six) Branch hours as needed for Pain (scale 1-3) or Pain (scale 4-6) (Pain). Take with food or milk. 2018-08 Yes [id number] 1{tbl} Take 1 [facility] vitamin 1-03 tablet by [facility] of w/FA tablet 00:00: mouth [place] 00 daily. Medical [facility] docusate 2018-08 Yes [id number] 240mg Take 1 [facility] calcium 240 1-03 capsule by [facility] of mg capsule 00:00: mouth once [place] 00 daily as Medical needed for Branch Constipati on. ferrous 2018-08 Yes [id number] 325mg Take 1 Un alex sulfate 325 1-03 tablet by [facility] of mg (65 mg 00:00: mouth 2 [place] iron) 00 (two) Medical tablet times Branch daily. ibuprofen 2018-08 Yes [id number] 600mg Take 1 [facility] 600 mg 1-03 tablet by [facility] of tablet 00:00: mouth [place] 00 every 6 Medical (six) Branch hours as needed for Pain (scale 1-3) or Pain (scale 4-6) (Pain). Take with food or milk. 2018-08 Yes [id number] 1{tbl} Take 1 [facility] vitamin 1-03 tablet by [facility] of w/FA tablet 00:00: mouth [place] 00 daily. Medical [facility] docusate 2018-08 Yes [id number] 240mg Take 1 [facility] calcium 240 1-03 capsule by [facility] of mg capsule 00:00: mouth once [place] 00 daily as Medical needed for Branch Constipati on. ferrous 2018-08 Yes [id number] 325mg Take 1 Un alex sulfate 325 1-03 tablet by [facility] of mg (65 mg 00:00: mouth 2 [place] iron) 00 (two) Medical tablet times Branch daily. ibuprofen 2018-08 Yes [id number] 600mg Take 1 [facility] 600 mg 1-03 tablet by [facility] of tablet 00:00: mouth [place] 00 every 6 Medical (six) Branch hours as needed for Pain (scale 1-3) or Pain (scale 4-6) (Pain). Take with food or milk. 2018-08 Yes [id number] 1{tbl} Take 1 [facility] vitamin 1-03 tablet by [facility] of w/FA tablet 00:00: mouth [place] 00 daily. Medical [facility] docusate 2018-08 Yes [id number] 240mg Take 1 [facility] calcium 240 1-03 capsule by [facility] of mg capsule 00:00: mouth once [place] 00 daily as Medical needed for Branch Constipati on. ferrous 2018-08 Yes [id number] 325mg Take 1 Un alex sulfate 325 1-03 tablet by [facility] of mg (65 mg 00:00: mouth 2 [place] iron) 00 (two) Medical tablet times Branch daily. ibuprofen 2018-08 Yes [id number] 600mg Take 1 [facility] 600 mg 1-03 tablet by [facility] of tablet 00:00: mouth [place] 00 every 6 Medical (six) Branch hours as needed for Pain (scale 1-3) or Pain (scale 4-6) (Pain). Take with food or milk. 2018-08 Yes [id number] 1{tbl} Take 1 [facility] vitamin 1-03 tablet by [facility] of w/FA tablet 00:00: mouth [place] 00 daily. Medical [facility] docusate 2018-08 Yes [id number] 240mg Take 1 [facility] calcium 240 1-03 capsule by [facility] of mg capsule 00:00: mouth once [place] 00 daily as Medical needed for Branch Constipati on. ferrous 2018- Yes [id number] 325mg Take 1 Un alex sulfate 325 1-03 tablet by [facility] of mg (65 mg 00:00: mouth 2 [place] iron) 00 (two) Medical tablet times Branch daily. ibuprofen 2018-08 Yes [id number] 600mg Take 1 [facility] 600 mg 1-03 tablet by [facility] of tablet 00:00: mouth [place] 00 every 6 Medical (six) Branch hours as needed for Pain (scale 1-3) or Pain (scale 4-6) (Pain). Take with food or milk. 2018-08 Yes [id number] 1{tbl} Take 1 [facility] vitamin 1-03 tablet by [facility] of w/FA tablet 00:00: mouth [place] 00 daily. Medical [facility] docusate 2018-08 Yes [id number] 240mg Take 1 [facility] calcium 240 1-03 capsule by [facility] of mg capsule 00:00: mouth once [place] 00 daily as Medical needed for Branch Constipati on. ferrous 2018-08 Yes [id number] 325mg Take 1 Un alex sulfate 325 1-03 tablet by [facility] of mg (65 mg 00:00: mouth 2 [place] iron) 00 (two) Medical tablet times Branch daily. ibuprofen 2018-08 Yes [id number] 600mg Take 1 [facility] 600 mg 1-03 tablet by [facility] of tablet 00:00: mouth [place] 00 every 6 Medical (six) Branch hours as needed for Pain (scale 1-3) or Pain (scale 4-6) (Pain). Take with food or milk. 2018-08 Yes [id number] 1{tbl} Take 1 [facility] vitamin 1-03 tablet by [facility] of w/FA tablet 00:00: mouth [place] 00 daily. Medical [facility] docusate 2018-08 Yes [id number] 240mg Take 1 [facility] calcium 240 1-03 capsule by [facility] of mg capsule 00:00: mouth once [place] 00 daily as Medical needed for Branch Constipati on. ferrous 2018-08 Yes [id number] 325mg Take 1 Un alex sulfate 325 1-03 tablet by [facility] of mg (65 mg 00:00: mouth 2 [place] iron) 00 (two) Medical tablet times Branch daily. ibuprofen 2018-08 Yes [id number] 600mg Take 1 [facility] 600 mg 1-03 tablet by [facility] of tablet 00:00: mouth [place] 00 every 6 Medical (six) Branch hours as needed for Pain (scale 1-3) or Pain (scale 4-6) (Pain). Take with food or milk. 2018-08 Yes [id number] 1{tbl} Take 1 [facility] vitamin 1-03 tablet by [facility] of w/FA tablet 00:00: mouth [place] 00 daily. Medical [facility] docusate 2018-08 Yes [id number] 240mg Take 1 [facility] calcium 240 1-03 capsule by [facility] of mg capsule 00:00: mouth once [place] 00 daily as Medical needed for Branch Constipati on. ferrous 2018-08 Yes [id number] 325mg Take 1 Un alex sulfate 325 1-03 tablet by [facility] of mg (65 mg 00:00: mouth 2 [place] iron) 00 (two) Medical tablet times Branch daily. ibuprofen 2018-08 Yes [id number] 600mg Take 1 [facility] 600 mg 1-03 tablet by [facility] of tablet 00:00: mouth [place] 00 every 6 Medical (six) Branch hours as needed for Pain (scale 1-3) or Pain (scale 4-6) (Pain). Take with food or milk. 2018-08 Yes [id number] 1{tbl} Take 1 [facility] vitamin 1-03 tablet by [facility] of w/FA tablet 00:00: mouth [place] 00 daily. Medical [facility] docusate 2018-08 Yes [id number] 240mg Take 1 [facility] calcium 240 1-03 capsule by [facility] of mg capsule 00:00: mouth once [place] 00 daily as Medical needed for Branch Constipati on. ferrous 2018-08 Yes [id number] 325mg Take 1 Un alex sulfate 325 1-03 tablet by [facility] of mg (65 mg 00:00: mouth 2 [place] iron) 00 (two) Medical tablet times Branch daily. ibuprofen 2018-08 Yes [id number] 600mg Take 1 [facility] 600 mg 1-03 tablet by [facility] of tablet 00:00: mouth [place] 00 every 6 Medical (six) Branch hours as needed for Pain (scale 1-3) or Pain (scale 4-6) (Pain). Take with food or milk. 2018-08 Yes [id number] 1{tbl} Take 1 [facility] vitamin 1-03 tablet by [facility] of w/FA tablet 00:00: mouth [place] 00 daily. [facility] docusate 2018-08 Yes [id number] 240mg Take 1 [facility] calcium 240 1-03 capsule by [facility] of mg capsule 00:00: mouth once [place] 00 daily as Medical needed for Branch Constipati on. ferrous 2018-08 Yes [id number] 325mg Take 1 Un alex sulfate 325 1-03 tablet by [facility] of mg (65 mg 00:00: mouth 2 [place] iron) 00 (two) Medical tablet times Branch daily. ibuprofen 2018-08 Yes [id number] 600mg Take 1 [facility] 600 mg 1-03 tablet by [facility] of tablet 00:00: mouth [place] 00 every 6 Medical (six) Branch hours as needed for Pain (scale 1-3) or Pain (scale 4-6) (Pain). Take with food or milk. 2018-08 Yes [id number] 1{tbl} Take 1 [facility] vitamin 1-03 tablet by [facility] of w/FA tablet 00:00: mouth [place] 00 daily. Medical [facility] docusate 2018-08 Yes [id number] 240mg Take 1 [facility] calcium 240 1-03 capsule by [facility] of mg capsule 00:00: mouth once [place] 00 daily as Medical needed for Branch Constipati on. ferrous 2018-08 Yes [id number] 325mg Take 1 Un alex sulfate 325 1-03 tablet by [facility] of mg (65 mg 00:00: mouth 2 [place] iron) 00 (two) Medical tablet times Branch daily. ibuprofen 2018-08 Yes [id number] 600mg Take 1 [facility] 600 mg 1-03 tablet by [facility] of tablet 00:00: mouth [place] 00 every 6 Medical (six) Branch hours as needed for Pain (scale 1-3) or Pain (scale 4-6) (Pain). Take with food or milk. 2018-08 Yes [id number] 1{tbl} Take 1 [facility] vitamin 1-03 tablet by [facility] of w/FA tablet 00:00: mouth [place] 00 daily. [facility] docusate 2018-08 Yes [id number] 240mg Take 1 [facility] calcium 240 1-03 capsule by [facility] of mg capsule 00:00: mouth once [place] 00 daily as Medical needed for Branch Constipati on. ferrous 2018-08 Yes [id number] 325mg Take 1 Un alex sulfate 325 1-03 tablet by [facility] of mg (65 mg 00:00: mouth 2 [place] iron) 00 (two) Medical tablet times Branch daily. ibuprofen 2018-08 Yes [id number] 600mg Take 1 [facility] 600 mg 1-03 tablet by [facility] of tablet 00:00: mouth [place] 00 every 6 Medical (six) Branch hours as needed for Pain (scale 1-3) or Pain (scale 4-6) (Pain). Take with food or milk. 2018-08 Yes [id number] 1{tbl} Take 1 [facility] vitamin 1-03 tablet by [facility] of w/FA tablet 00:00: mouth [place] 00 daily. Medical [facility] docusate 2018-08 Yes [id number] 240mg Take 1 [facility] calcium 240 1-03 capsule by [facility] of mg capsule 00:00: mouth once [place] 00 daily as Medical needed for Branch Constipati on. ferrous 2018-08 Yes [id number] 325mg Take 1 Un alex sulfate 325 1-03 tablet by [facility] of mg (65 mg 00:00: mouth 2 [place] iron) 00 (two) Medical tablet times Branch daily. ibuprofen 2018-08 Yes [id number] 600mg Take 1 [facility] 600 mg 1-03 tablet by [facility] of tablet 00:00: mouth [place] 00 every 6 Medical (six) Branch hours as needed for Pain (scale 1-3) or Pain (scale 4-6) (Pain). Take with food or milk. 2018-08 Yes [id number] 1{tbl} Take 1 [facility] vitamin 1-03 tablet by [facility] w/FA tablet 00:00: mouth [place] 00 daily. [facility] docusate 2018-08 Yes [id number] 240mg Take 1 [facility] calcium 240 1-03 capsule by [facility] of mg capsule 00:00: mouth once [place] 00 daily as Medical needed for Branch Constipati on. ferrous 2018-08 Yes [id number] 325mg Take 1 Un alex sulfate 325 1-03 tablet by [facility] of mg (65 mg 00:00: mouth 2 [place] iron) 00 (two) Medical tablet times Branch daily. ibuprofen 2018-08 Yes [id number] 600mg Take 1 [facility] 600 mg 1-03 tablet by [facility] of tablet 00:00: mouth [place] 00 every 6 Medical (six) Branch hours as needed for Pain (scale 1-3) or Pain (scale 4-6) (Pain). Take with food or milk. 2018-08 Yes [id number] 1{tbl} Take 1 [facility] vitamin 1-03 tablet by [facility] of w/FA tablet 00:00: mouth [place] 00 daily. Medical [facility] docusate 2018-08 Yes [id number] 240mg Take 1 [facility] calcium 240 1-03 capsule by [facility] of mg capsule 00:00: mouth once [place] 00 daily as Medical needed for Branch Constipati on. ferrous 2018-08 Yes [id number] 325mg Take 1 Un alex sulfate 325 1-03 tablet by [facility] of mg (65 mg 00:00: mouth 2 [place] iron) 00 (two) Medical tablet times Branch daily. ibuprofen 2018-08 Yes [id number] 600mg Take 1 [facility] 600 mg 1-03 tablet by [facility] of tablet 00:00: mouth [place] 00 every 6 Medical (six) Branch hours as needed for Pain (scale 1-3) or Pain (scale 4-6) (Pain). Take with food or milk. 2018-08 Yes [id number] 1{tbl} Take 1 [facility] vitamin 1-03 tablet by [facility] of w/FA tablet 00:00: mouth [place] 00 daily. [facility] docusate 2018-08 Yes [id number] 240mg Take 1 [facility] calcium 240 1-03 capsule by [facility] of mg capsule 00:00: mouth once [place] 00 daily as Medical needed for Branch Constipati on. ferrous 2018-08 Yes [id number] 325mg Take 1 Un alex sulfate 325 1-03 tablet by [facility] of mg (65 mg 00:00: mouth 2 [place] iron) 00 (two) Medical tablet times Branch daily. ibuprofen 2018-08 Yes [id number] 600mg Take 1 [facility] 600 mg 1-03 tablet by [facility] of tablet 00:00: mouth [place] 00 every 6 Medical (six) Branch hours as needed for Pain (scale 1-3) or Pain (scale 4-6) (Pain). Take with food or milk. 2018-08 Yes [id number] 1{tbl} Take 1 [facility] vitamin 1-03 tablet by [facility] of w/FA tablet 00:00: mouth [place] 00 daily. Medical [facility] docusate 2018-08 Yes [id number] 240mg Take 1 [facility] calcium 240 1-03 capsule by [facility] of mg capsule 00:00: mouth once [place] 00 daily as Medical needed for Branch Constipati on. ferrous 2018-08 Yes [id number] 325mg Take 1 Un alex sulfate 325 1-03 tablet by [facility] of mg (65 mg 00:00: mouth 2 [place] iron) 00 (two) Medical tablet times Branch daily. ibuprofen 2018-08 Yes [id number] 600mg Take 1 [facility] 600 mg 1-03 tablet by [facility] of tablet 00:00: mouth [place] 00 every 6 Medical (six) Branch hours as needed for Pain (scale 1-3) or Pain (scale 4-6) (Pain). Take with food or milk. 2018-08 Yes [id number] 1{tbl} Take 1 [facility] vitamin 1-03 tablet by [facility] of w/FA tablet 00:00: mouth [place] 00 daily. [facility] docusate 2018-08 Yes [id number] 240mg Take 1 [facility] calcium 240 1-03 capsule by [facility] of mg capsule 00:00: mouth once [place] 00 daily as Medical needed for Branch Constipati on. ferrous 2018-08 Yes [id number] 325mg Take 1 Un alex sulfate 325 1-03 tablet by [facility] of mg (65 mg 00:00: mouth 2 [place] iron) 00 (two) Medical tablet times Branch daily. ibuprofen 2018-08 Yes [id number] 600mg Take 1 [facility] 600 mg 1-03 tablet by [facility] of tablet 00:00: mouth [place] 00 every 6 Medical (six) Branch hours as needed for Pain (scale 1-3) or Pain (scale 4-6) (Pain). Take with food or milk. 2018-08 Yes [id number] 1{tbl} Take 1 [facility] vitamin 1-03 tablet by [facility] of w/FA tablet 00:00: mouth [place] 00 daily. Medical [facility] docusate 2018-08 Yes [id number] 240mg Take 1 [facility] calcium 240 1-03 capsule by [facility] y of mg capsule 00:00: mouth once [place] 00 daily as Medical needed for Branch Constipati on. ferrous 2018-08 Yes [id number] 325mg Take 1 Un alex sulfate 325 1-03 tablet by [facility] of mg (65 mg 00:00: mouth 2 [place] iron) 00 (two) Medical tablet times Branch daily. ibuprofen 2018-08 Yes [id number] 600mg Take 1 [facility] 600 mg 1-03 tablet by [facility] of tablet 00:00: mouth [place] 00 every 6 Medical (six) Branch hours as needed for Pain (scale 1-3) or Pain (scale 4-6) (Pain). Take with food or milk. 2018-08 Yes [id number] 1{tbl} Take 1 [facility] vitamin 1-03 tablet by ity of w/FA tablet 00:00: mouth [place] 00 daily. Medical Branch docusate 2018-08 Yes [id number] 240mg Take 1 U nivers calcium 240 1-03 capsule by it y of mg capsule 00:00: mouth [place] 00 daily as Medical needed for Branch Constipati on. ferrous 2018-08 Yes [id number] 325mg Take 1 Un alex sulfate 325 1-03 tablet by ity of mg (65 mg 00:00: mouth 2 [place] iron) 00 (two) Medical tablet times Branch daily. ibuprofen 2018-08 Yes [id number] 600mg Take 1 [facility] 600 mg 1-03 tablet by ity of tablet 00:00: mouth [place] 00 every 6 Medical (six) Branch hours as needed for Pain (scale 1-3) or Pain (scale 4-6) (Pain). Take with food or milk. 2018-08 Yes [id number] 1{tbl} Take 1 [facility] vitamin 1-03 tablet by ity of w/FA tablet 00:00: mouth [place] 00 daily. Medical Branch docusate 2018-08 Yes [id number] 240mg Take 1 U nivers calcium 240 1-03 capsule by it y of mg capsule 00:00: mouth [place] 00 daily as Medical needed for Branch Constipati on. ferrous 2018-08 Yes [id number] 325mg Take 1 Un alex sulfate 325 1-03 tablet by ity of mg (65 mg 00:00: mouth 2 [place] iron) 00 (two) Medical tablet times Branch daily. 2018-08- No [id number] 1{tbl} Take 1 [facility] vitamin 1-03 08-18 tablet by ity of w/FA tablet 00:00: [place] 00 :00 daily. [facility] Branch docusate 2018-08- No [id number] 240mg Take 1 [facility] calcium 240 1-03 08-18 capsule by i ty of mg capsule 00:00: 00:00 mouth once [place] 00 :00 daily as Medical needed for Branch Constipati on. ibuprofen 2018-08- No [id number] 600mg Take 1 [facility] 600 mg 1-03 08-18 tablet by ity of tablet 00:00: 00:00 mouth [place] 00 :00 every 6 Medical (six) Branch hours as needed for Pain (scale 1-3) or Pain (scale 4-6) (Pain). Take with food or milk. fluconazole 2018- No [id number] 150mg Take 1 [facility] (DIFLUCAN) 9-10 09-11 tablet by ity of 150 mg 00:00: 04:59 mouth [place] tablet 00 :00 now for 1 Medical dose. Branch fluconazole 2019- No [id number] 150mg Take 1 [facility] (DIFLUCAN) 04-17 tablet by ity of 150 mg 00:00: 04:59 mouth [place] tablet 00 :00 now for 1 Medical dose. Branch fluconazole 2019- No [id number] 150mg Take 1 [facility] (DIFLUCAN) 04-17 tablet by ity of 150 mg 00:00: 04:59 mouth [place] tablet 00 :00 now for 1 Medical dose. Branch rho(D) 2019- No [id number] 300ug Unive rs immune 03-29 ity of globulin 19:30: 19:44 [place] (RHOGAM) 00 :00 Medical syringe 300 Branch mcg rho(D) 2018- No [id number] 300ug 300 mcg, U nivers immune 03-29 Intramuscu ity of globulin 19:30: 19:44 [place] (RHOGAM[place] 00 :00 1 dose, Medical syringe 300 [place] Branch mcg 03/29/19 at 1430, Routine fluconazole 2019- No [id number] 150mg Take 1 [facility] (DIFLUCAN) 03-2014 9107 tablet by ity of 150 mg 00:00: 04:59 mouth [place] tablet 00 :00 now for 1 Medical dose. Branch HYDROXYprog Yes 250mg Unive rs est(PF)(pre 8-06 ity of g presv) 15:51: [place] (HANS) 32 Medical 250 mg/mL Branch (1 mL) injection 250 mg HYDROXYprog 0 Yes 250mg Unive rs est(PF)(pre 8-06 ity of g presv) 15:51: [place] (HANS) 32 Medical 250 mg/mL Branch (1 mL) injection 250 mg HYDROXYprog 0 Yes 250mg 250 mg, Un alex est(PF)(pre 8-06 Intramuscu it y of g presv) 15:51: lar, [place] (HANS) 32 QWEEKLY, Medical 250 mg/mL First dose Bran ch (1 mL) on Tue injection 03/13/19 at 250 mg 1100, Until Discontinu ed, Routine HYDROXYprog Yes 250mg Unive rs est(PF)(pre 8-06 ity of g presv) 15:51: [place] ([facility]) 32 Medical 250 mg/mL Branch (1 mL) injection 250 mg HYDROXYprog 2019-0 Yes 250mg Unive rs est(PF)(pre 8-06 ity of g presv) 15:51: [place] ([facility]) 32 Medical 250 mg/mL Branch (1 mL) injection 250 mg HYDROXYprog 2019-0 Yes 250mg Unive rs est(PF)(pre 8-06 ity of g presv) 15:51: [place] ([facility]) 32 Medical 250 mg/mL Branch (1 mL) injection 250 mg HYDROXYprog 2019-0 Yes 250mg Unive rs est(PF)(pre 8-06 ity of g presv) 15:51: [place] (HANS) 32 Medical 250 mg/mL Branch (1 mL) injection 250 mg HYDROXYprog 2019-0 Yes 250mg Unive rs est(PF)(pre 8-06 ity of g presv) 15:51: [place] (HANS) 32 Medical 250 mg/mL Branch (1 mL) injection 250 mg HYDROXYprog 2019-0 Yes 250mg Unive rs est(PF)(pre 8-06 ity of g presv) 15:51: [place] ([facility]) 32 Medical 250 mg/mL Branch (1 mL) injection 250 mg HYDROXYprog 2019-0 Yes 250mg Unive rs est(PF)(pre 8-06 ity of g presv) 15:51: [place] ([facility]) 32 Medical 250 mg/mL Branch (1 mL) injection 250 mg HYDROXYprog 2019-0 Yes 250mg Unive rs est(PF)(pre 8-06 ity of g presv) 15:51: [place] (HANS) 32 Medical 250 mg/mL Branch (1 mL) injection 250 mg HYDROXYprog 2019-0 Yes 250mg Unive rs est(PF)(pre 8-06 ity of g presv) 15:51: [place] (HANS) 32 Medical 250 mg/mL Branch (1 mL) injection 250 mg HYDROXYprog 2019-0 Yes 250mg 250 mg, Un alex est(PF)(pre 8-06 Intramuscu it y of g presv) 15:51: lar, [place] (HANS) 32 QWEEKLY, Medical 250 mg/mL First dose Bran ch (1 mL) on Tue injection 03/13/19 at 250 mg 1100, Until Discontinu ed, Routine HYDROXYprog 2019-0 Yes 250mg Unive rs est(PF)(pre 8- ity of g presv) 15:51: [place] [address] Medical 250 mg/mL Branch (1 mL) injection 250 mg HYDROXYprog 2019-0 Yes 250mg 250 mg, Un alex est(PF)(pre 8- Intramuscu it y of g presv) 15:51: lar, [facility] 32 QWEEKLY, Medical 250 mg/mL First dose Bran ch (1 mL) on Tue injection 03/13/19 at 250 mg 1100, Until Discontinu ed, Routine HYDROXYprog 2019-0 Yes 250mg Unive rs est(PF)(pre 8- ity of g presv) 15:51: [place] [address] Medical 250 mg/mL Branch (1 mL) injection 250 mg HYDROXYprog 2019-0 Yes 250mg 250 mg, Un alex est(PF)(pre 8- Intramuscu it y of g presv) 15:51: lar [place] [address] QWEEKLY, Medical 250 mg/mL First dose Bran ch (1 mL) on Tue injection 03/13/19 at 250 mg 1100, Until Discontinu ed, Routine HYDROXYprog 2019-0 Yes 250mg Unive rs est(PF)(pre 8- ity of g presv) 15:51: [place] [address] Medical 250 mg/mL Branch (1 mL) injection 250 mg HYDROXYprog 2019-0 Yes 250mg 250 mg, Un alex est(PF)(pre 8- Intramuscu it y of g presv) 15:51: lar [facility] 32 QWEEKLY, Medical 250 mg/mL First dose Bran ch (1 mL) on Tue injection 03/13/19 at 250 mg 1100, Until Discontinu ed, Routine HYDROXYprog 2019-0 Yes 250mg Unive rs est(PF)(pre 8- ity of g presv) 15:51: [place] [address] Medical 250 mg/mL Branch (1 mL) injection [...] est(PF)(pre 8-06 ity of g presv) 15:51: [place] (HANS) 32 Medical 250 mg/mL Branch (1 mL) injection 250 mg HYDROXYprog 2019-0 Yes 250mg 250 mg, Un alex est(PF)(pre 8-06 Intramuscu it y of g presv) 15:51: [facility], [place] (HANS) 32 QWEEKLY, Medical 250 mg/mL First dose Bran ch (1 mL) on Tue injection 03/13/19 at 250 mg 1100, Until Discontinu ed, Routine hydroxyprog 2019-0 Yes 275mg Unive rs esterone(PF 6-11 ity of ) (HANS 14:51: [place] AUTO-INJECT 12 Medical OR) 275 Branch mg/1.1 mL injection 275 mg hydroxyprog 2019-0 Yes 275mg Unive rs esterone(PF 6-11 ity of ) (HANS 14:51: [place] AUTO-INJECT 12 Medical OR) 275 Branch mg/1.1 mL injection 275 mg hydroxyprog 2019-0 Yes 275mg Unive rs esterone(PF 6-11 ity of ) (HANS 14:51: [place] AUTO-INJECT 12 Medical OR) 275 Branch mg/1.1 mL injection 275 mg hydroxyprog 2019-0 Yes 275mg Unive rs esterone(PF 6-11 ity of ) (HANS 14:51: [place] AUTO-INJECT 12 Medical OR) 275 Branch mg/1.1 mL injection 275 mg hydroxyprog 2019-0 Yes 275mg 275 mg, Un alex esterone(PF 6-11 Subcutaneo it y of ) (HANS 14:51: [place], [place] AUTO-INJECT 12 QWEEKLY, Medi carlos OR) 275 First dose Branch mg/1.1 mL on Tue injection 01/16/19 at 275 mg 1000, Until Discontinu ed, Routine hydroxyprog 2019-0 Yes 275mg Unive rs esterone(PF 6-11 ity of ) (HANS 14:51: [place] AUTO-INJECT 12 Medical OR) 275 Branch mg/1.1 [...] injection 275 mg PNV 67-iron 2019-0 Yes [id number] 1{each} Take 1 [facility] ps-folate 3-15 Each by ity of no.1-dha 00:00: mouth [place] (VITAFOL 00 daily. Medical ULTRA) 29 Branch mg iron- 1 mg-200 mg Cap PNV 67-iron 2018- Yes [id number] 1{each} Take 1 [facility] ps-folate 3-15 Each by ity of no.1-dha 00:00: mouth [place] (VITAFOL 00 daily. Medical ULTRA) 29 Branch mg iron- 1 mg-200 mg Cap PNV 67-iron 2018- Yes [id number] 1{each} Take 1 [facility] ps-folate 3-15 Each by ity of no.1-dha 00:00: mouth [place] (VITAFOL 00 daily. Medical ULTRA) 29 Branch mg iron- 1 mg-200 mg Cap PNV 67-iron 2018- Yes [id number] 1{each} Take 1 [facility] ps-folate 3-15 Each by ity of no.1-dha 00:00: mouth [place] (VITAFOL 00 daily. Medical ULTRA) 29 Branch mg iron- 1 mg-200 mg Cap PNV 67-iron 2019-0 Yes [id number] 1{each} Take 1 [facility] ps-folate 3-15 Each by ity of no.1-dha 00:00: mouth [place] (VITAFOL 00 daily. Medical ULTRA) 29 Branch mg iron- 1 mg-200 mg Cap PNV 67-iron 2019-0 Yes [id number] 1{each} Take 1 [facility] ps-folate 3-15 Each by ity of no.1-dha 00:00: mouth [place] (VITAFOL 00 daily. Medical ULTRA) 29 Branch mg iron- 1 mg-200 mg Cap PNV 67-iron 2019-0 Yes [id number] 1{each} Take 1 [facility] ps-folate 3-15 Each by ity of no.1-dha 00:00: mouth [place] (VITAFOL 00 daily. Medical ULTRA) 29 Branch mg iron- 1 mg-200 mg Cap PNV 67-iron 2019-0 Yes [id number] 1{each} Take 1 [facility] ps-folate 3-15 Each by ity of no.1-dha 00:00: mouth [place] (VITAFOL 00 daily. Medical ULTRA) 29 Branch mg iron- 1 mg-200 mg Cap PNV 67-iron 2019-0 Yes [id number] 1{each} Take 1 [facility] ps-folate 3-15 Each by ity of no.1-dha 00:00: mouth [place] (VITAFOL 00 daily. Medical ULTRA) 29 Branch mg iron- 1 mg-200 mg Cap PNV 67-iron 2019 Yes [id number] 1{each} Take 1 [facility] ps-folate 3-15 Each by ity of no.1-dha 00:00: mouth [place] (VITAFOL 00 daily. Medical ULTRA) 29 Branch mg iron- 1 mg-200 mg Cap PNV 67-iron 2019-0 Yes [id number] 1{each} Take 1 [facility] ps-folate 3-15 Each by ity of no.1-dha 00:00: mouth [place] (VITAFOL 00 daily. Medical ULTRA) 29 Branch mg iron- 1 mg-200 mg Cap PNV 67-iron 2019- Yes [id number] 1{each} Take 1 [facility] ps-folate 3-15 Each by ity of no.1-dha 00:00: mouth [place] (VITAFOL 00 daily. Medical ULTRA) 29 Branch mg iron- 1 mg-200 mg Cap PNV 67-iron 2019-0 Yes [id number] 1{each} Take 1 [facility] ps-folate 3-15 Each by ity of no.1-dha 00:00: mouth [place] (VITAFOL 00 daily. Medical ULTRA) 29 Branch mg iron- 1 mg-200 mg Cap PNV 67-iron 2019-0 Yes [id number] 1{each} Take 1 [facility] ps-folate 3-15 Each by ity of no.1-dha 00:00: mouth [place] (VITAFOL 00 daily. Medical ULTRA) 29 Branch mg iron- 1 mg-200 mg Cap PNV 67-iron Yes [id number] 1{each} Take 1 [facility] ps-folate 3-15 Each by ity of no.1-dha 00:00: mouth [place] (VITAFOL 00 daily. Medical ULTRA) 29 Branch mg iron- 1 mg-200 mg Cap PNV 67-iron Yes [id number] 1{each} Take 1 [facility] ps-folate 3-15 Each by ity of no.1-dha 00:00: mouth [place] (VITAFOL 00 daily. Medical ULTRA) 29 Branch mg iron- 1 mg-200 mg Cap PNV 67-iron Yes [id number] 1{each} Take 1 [facility] ps-folate 3-15 Each by ity of no.1-dha 00:00: mouth [place] (VITAFOL 00 daily. Medical ULTRA) 29 Branch mg iron- 1 mg-200 mg Cap PNV 67-iron Yes [id number] 1{each} Take 1 [facility] ps-folate 3-15 Each by ity of no.1-dha 00:00: mouth [place] (VITAFOL 00 daily. Medical ULTRA) 29 Branch mg iron- 1 mg-200 mg Cap PNV 67-iron Yes [id number] 1{each} Take 1 [facility] ps-folate 3-15 Each by ity of no.1-dha 00:00: mouth [place] (VITAFOL 00 daily. Medical ULTRA) 29 Branch mg iron- 1 mg-200 mg Cap PNV 67-iron Yes [id number] 1{each} Take 1 [facility] ps-folate 3-15 Each by ity of no.1-dha 00:00: mouth [place] (VITAFOL 00 daily. Medical ULTRA) 29 Branch mg iron- 1 mg-200 mg Cap PNV 67-iron Yes [id number] 1{each} Take 1 [facility] ps-folate 3-15 Each by ity of no.1-dha 00:00: mouth [place] (VITAFOL 00 daily. Medical ULTRA) 29 Branch mg iron- 1 mg-200 mg Cap hydroxyprog 2019- No [id number] 250mg 1 mL by Univers est,PF,,pre 3-15 - Intramuscu i ty of g presv, 00:00: 04:59 [place] 250 mg/mL 00 :00 weekly for Medi carlos (1 mL) 22 doses. Branch injection hydroxyprog 2019- No [id number] 250mg 1 mL by Univers est,PF,,pre 10-20 Intramuscu i ty of g presv, 00:00: 04:59 [place] 250 mg/mL 00 :00 weekly for Medi carlos (1 mL) 22 doses. Branch injection hydroxyprog 2018- No [id number] 250mg 1 mL by Univers est,PF,,pre 10-20 Intramuscu i ty of g presv, 00:00: 04:59 [place] 250 mg/mL 00 :00 weekly for Medi carlos (1 mL) 22 doses. Branch injection hydroxyprog 2018- No [id number] 250mg 1 mL by Univers est,PF,,pre 10-20 Intramuscu i ty of g presv, 00:00: 04:59 [place] 250 mg/mL 00 :00 weekly for Medi carlos (1 mL) 22 doses. Branch injection hydroxyprog 2019- No [id number] 250mg 1 mL by Univers est,PF,,pre 10-20 [...] tablet times Branch daily. PNV 67-iron Yes [id number] 1{each} Take 1 [facility] ps-folate 4-17 Each by ity of no.1-dha 00:00: mouth [place] (VITAFOL 00 daily. Medical ULTRA) 29 Branch mg iron- 1 mg-200 mg Cap PNV 67-iron Yes [id number] 1{each} Take 1 [facility] ps-folate 4-17 Each by ity of no.1-dha 00:00: mouth [place] (VITAFOL 00 daily. Medical ULTRA) 29 Branch mg iron- 1 mg-200 mg Cap PNV 67-iron Yes [id number] 1{each} Take 1 Univers ps-folate 4-17 Each by ity of no.1-dha 00:00: mouth [place] (VITAFOL 00 daily. Medical ULTRA) 29 Branch mg iron- 1 mg-200 mg Cap PNV 67-iron Yes [id number] 1{each} Take 1 [facility] ps-folate 4-17 Each by ity of no.1-dha 00:00: mouth [place] (VITAFOL 00 daily. Medical ULTRA) 29 Branch mg iron- 1 mg-200 mg Cap PNV 67-iron Yes [id number] 1{each} Take 1 Univers ps-folate 4-17 Each by ity of no.1-dha 00:00: mouth [place] (VITAFOL 00 daily. Medical ULTRA) 29 Branch mg iron- 1 mg-200 mg Cap PNV 67-iron Yes [id number] 1{each} Take 1 Univers ps-folate 4-17 Each by ity of no.1-dha 00:00: mouth [place] (VITAFOL 00 daily. Medical ULTRA) 29 Branch mg iron- 1 mg-200 mg Cap PNV 67-iron 2017- Yes [id number] 1{each} Take 1 Univers ps-folate 4-17 Each by ity of no.1-dha 00:00: mouth [place] (VITAFOL 00 daily. Medical ULTRA) 29 Branch mg iron- 1 mg-200 mg Cap PNV 67-iron 2017- Yes [id number] 1{each} Take 1 Univers ps-folate 4-17 Each by ity of no.1-dha 00:00: mouth [place] (VITAFOL 00 daily. Medical ULTRA) 29 Branch mg iron- 1 mg-200 mg Cap PNV 67-iron 2018-0 Yes [id number] 1{each} Take 1 Univers ps-folate 4-17 Each by ity of no.1-dha 00:00: mouth [place] (VITAFOL 00 daily. Medical ULTRA) 29 Branch mg iron- 1 mg-200 mg Cap PNV 67-iron 2018-0 Yes [id number] 1{each} Take 1 Univers ps-folate 4-17 Each by ity of no.1-dha 00:00: mouth [place] (VITAFOL 00 daily. Medical ULTRA) 29 Branch mg iron- 1 mg-200 mg Cap PNV 67-iron 2017-0 Yes [id number] 1{each} Take 1 Univers ps-folate 4-17 Each by ity of no.1-dha 00:00: mouth [place] (VITAFOL 00 daily. Medical ULTRA) 29 Branch mg iron- 1 mg-200 mg Cap PNV 67-iron 2017-0 Yes [id number] 1{each} Take 1 Univers ps-folate 4-17 Each by ity of no.1-dha 00:00: mouth [place] (VITAFOL 00 daily. Medical ULTRA) 29 Branch mg iron- 1 mg-200 mg Cap PNV 67-iron 2017-0 Yes [id number] 1{each} Take 1 Univers ps-folate 4-17 Each by ity of no.1-dha 00:00: mouth [place] (VITAFOL 00 daily. Medical ULTRA) 29 Branch mg iron- 1 mg-200 mg Cap PNV 67-iron 2017-0 Yes [id number] 1{each} Take 1 Univers ps-folate 4-17 Each by ity of no.1-dha 00:00: mouth [place] (VITAFOL 00 daily. Medical ULTRA) 29 Branch mg iron- 1 mg-200 mg Cap PNV 67-iron 2018-0 Yes [id number] 1{each} Take 1 [facility] ps-folate 4-17 Each by ity of no.1-dha 00:00: mouth [place] (VITAFOL 00 daily. Medical ULTRA) 29 Branch mg iron- 1 mg-200 mg Cap PNV 67-iron 2018-0 Yes [id number] 1{each} Take 1 [facility] ps-folate 4-17 Each by ity of no.1-dha 00:00: mouth [place] (VITAFOL 00 daily. Medical ULTRA) 29 Branch mg iron- 1 mg-200 mg Cap PNV 67-iron 2018-0 Yes [id number] 1{each} Take 1 Univers ps-folate 4-17 Each by ity of no.1-dha 00:00: mouth [place] (VITAFOL 00 daily. Medical ULTRA) 29 Branch mg iron- 1 mg-200 mg Cap PNV 67-iron 2018-0 Yes [id number] 1{each} Take 1 Univers ps-folate 4-17 Each by ity of no.1-dha 00:00: mouth [place] (VITAFOL 00 daily. Medical ULTRA) 29 Branch mg iron- 1 mg-200 mg Cap PNV 67-iron 2017-0 Yes [id number] 1{each} Take 1 [facility] ps-folate 4-17 Each by ity of no.1-dha 00:00: mouth [place] (VITAFOL 00 daily. Medical ULTRA) 29 Branch mg iron- 1 mg-200 mg Cap PNV 67-iron 0 Yes [id number] 1{each} Take 1 [facility] ps-folate 4-17 Each by ity of no.1-dha 00:00: mouth [place] (VITAFOL 00 daily. Medical ULTRA) 29 Branch mg iron- 1 mg-200 mg Cap PNV 67-iron 2017-0 Yes [id number] 1{each} Take 1 [facility] ps-folate 4-17 Each by ity of no.1-dha 00:00: mouth [place] (VITAFOL 00 daily. Medical ULTRA) 29 Branch mg iron- 1 mg-200 mg Cap Immunizations Ordered Filled Immunization Date Status Comments [facility] e Immunization Name Name HPV9 2021-04-09 Completed University of 00:00:00 [facility] HPV9 2021-04-09 Completed University of 00:00:00 [facility] HPV9 2021-04-09 Completed University of 00:00:00 [facility] HPV9 2021-04-09 Completed University of 00:00:00 [facility] HPV9 2021-04-09 Completed University of 00:00:00 [facility] HPV9 2021-04-09 Completed University of 00:00:00 [facility] HPV9 2021-04-09 Completed University of 00:00:00 [facility] HPV9 2021-04-09 Completed University of 00:00:00 [facility] Rho (d) Immune 2021-01-28 Completed University of Globulin 00:00:00 [facility] TDAP 2021-01-28 Completed University of 00:00:00 [facility] Rho (d) Immune 2021-01-28 Completed University of Globulin 00:00:00 [facility] TDAP 2021-01-28 Completed University of 00:00:00 [facility] Rho (d) Immune 2021-01-28 Completed University of Globulin 00:00:00 [facility] TDAP 2021-01-28 Completed University of 00:00:00 [facility] Rho (d) Immune 2021-01-28 Completed University of Globulin 00:00:00 [facility] TDAP 2021-01-28 Completed University of 00:00:00 [facility] Rho (d) Immune 2021-01-28 Completed University of Globulin 00:00:00 [facility] TDAP 2021-01-28 Completed University of 00:00:00 [facility] Rho (d) Immune 2021-01-28 Completed University of Globulin 00:00:00 [facility] TDAP 2021-01-28 Completed University of 00:00:00 [facility] Rho (d) Immune 2021-01-28 Completed University of Globulin 00:00:00 [facility] TDAP 2021-01-28 Completed University of 00:00:00 [facility] Rho (d) Immune 2021-01-28 Completed University of Globulin 00:00:00 [facility] TDAP 2021-01-28 Completed University of 00:00:00 [facility] Rho (d) Immune 2021-01-28 Completed University of Globulin 00:00:00 [facility] TDAP 2021-01-28 Completed University of 00:00:00 [facility] Rho (d) Immune 2021-01-28 Completed University of Globulin 00:00:00 [facility] TDAP 2021-01-28 Completed University of 00:00:00 [facility] Rho (d) Immune 2021-01-28 Completed University of Globulin 00:00:00 [facility] TDAP 2021-01-28 Completed University of 00:00:00 [facility] Rho (d) Immune 2021-01-28 Completed University of Globulin 00:00:00 [facility] TDAP 2021-01-28 Completed University of 00:00:00 [facility] Rho (d) Immune 2021-01-28 Completed University of Globulin 00:00:00 [facility] TDAP 2021-01-28 Completed University of 00:00:00 [facility] Rho (d) Immune 2021-01-28 Completed University of Globulin 00:00:00 [facility] TDAP 2021-01-28 Completed University of 00:00:00 [facility] Rho (d) Immune 2021-01-28 Completed University of Globulin 00:00:00 [facility] TDAP 2021-01-28 Completed University of 00:00:00 [facility] Rho (d) Immune 2021-01-28 Completed University of Globulin 00:00:00 [facility] TDAP 2021-01-28 Completed University of 00:00:00 [facility] Rho (d) Immune 2021-01-28 Completed University of Globulin 00:00:00 [facility] TDAP 2021-01-28 Completed University of 00:00:00 [facility] Rho (d) Immune 2021-01-28 Completed University of Globulin 00:00:00 [facility] TDAP 2021-01-28 Completed University of 00:00:00 [facility] Rho (d) Immune 2021-01-28 Completed University of Globulin 00:00:00 [facility] TDAP 2021-01-28 Completed University of 00:00:00 [facility] Influenza Virus 2020-06-04 Completed Universit y of Vaccine Quad .5 mL 00:00:00 [facility] IM 6+ MO Branch Influenza Virus 2020-06-04 Completed Universit y of Vaccine [place] .5 mL 00:00:00 [facility] IM 6+ MO Branch Influenza Virus 2020-06-04 Completed Universit y of Vaccine [place] .5 mL 00:00:00 [place] [facility] IM 6+ MO Branch Influenza Virus 2020-06-04 Completed Universit y of Vaccine Quad .5 mL 00:00:00 [place] [facility] IM 6+ MO Branch Influenza Virus 2020-06-04 Completed Universit y of Vaccine [place] .5 mL 00:00:00 [place] [facility] IM 6+ MO Branch Influenza Virus 2020-06-04 Completed Universit y of Vaccine Quad .5 mL 00:00:00 [place] [facility] IM 6+ MO Branch Influenza Virus [...] Branch HPV9 2019-09-18 Completed University of 00:00:00 [place] [facility] HPV9 2019-09-18 Completed University of 00:00:00 [place] [facility] [place] HPV9 2019-09-18 Completed University of 00:00:00 [place] [facility] [place] HPV9 2019-09-18 Completed University of 00:00:00 [place] [...] Branch HPV9 2019-09-18 Completed University of 00:00:00 [place] [facility] HPV9 2019-09-18 Completed University of [...] Branch HPV9 2019-09-18 Completed University of 00:00:00 [facility] HPV9 2019-09-18 Completed University of 00:00:00 [facility] Rho (d) Immune 2019-06-10 Completed University of Globulin 00:00:00 [facility] Branch Rho (d) Immune 2019-06-10 Completed University of Globulin 00:00:00 [facility] Rho (d) Immune 2019-06-10 Completed University of Globulin 00:00:00 [facility] Branch Rho (d) Immune 2019-06-10 Completed University of Globulin 00:00:00 [facility] Branch Rho (d) Immune 2019-06-10 Completed University of Globulin 00:00:00 [facility] Branch Rho (d) Immune 2019-06-10 Completed University of Globulin 00:00:00 [facility] Branch Rho (d) Immune 2019-06-10 Completed University of Globulin 00:00:00 [facility] Branch Rho (d) Immune 2019-06-10 Completed University of Globulin 00:00:00 [facility] Branch Rho (d) Immune 2019-06-10 Completed University of Globulin 00:00:00 [facility] Branch Rho (d) Immune 2019-06-10 Completed University of Globulin 00:00:00 [facility] Branch Rho (d) Immune 2019-06-10 Completed University of Globulin 00:00:00 [facility] Branch Rho (d) Immune 2019-06-10 Completed University of Globulin 00:00:00 [facility] Branch Rho (d) Immune 2019-06-10 Completed University of Globulin 00:00:00 [facility] Branch Rho (d) Immune 2019-06-10 Completed University of Globulin 00:00:00 [facility] Branch Rho (d) Immune 2019-06-10 Completed University of Globulin 00:00:00 [facility] Branch Rho (d) Immune 2019-06-10 Completed University of Globulin 00:00:00 [facility] Branch Rho (d) Immune 2019-06-10 Completed University of Globulin 00:00:00 [facility] Branch Rho (d) Immune 2019-06-10 Completed University of Globulin 00:00:00 [facility] Branch Rho (d) Immune 2019-06-10 Completed University of Globulin 00:00:00 [facility] Branch Rho (d) Immune 2019-06-10 Completed University of Globulin 00:00:00 [facility] Branch Rho (d) Immune 2019-06-10 Completed University of Globulin 00:00:00 [facility] Branch Rho (d) Immune 2019-06-10 Completed University of Globulin 00:00:00 [facility] Branch Rho (d) Immune 2019-06-10 Completed University of Globulin 00:00:00 [place] [facility] Rho (d) Immune 2019-06-10 Completed University of Globulin 00:00:00 [place] [facility] Rho (d) Immune 2019-06-10 Completed University of Globulin 00:00:00 [facility] Branch Rho (d) Immune 2019-06-10 Completed University of Globulin 00:00:00 [place] [facility] Rho (d) Immune 2019-06-10 Completed University of Globulin 00:00:00 [place] [facility] Rho (d) Immune 2019-06-10 Completed University of Globulin 00:00:00 [facility] [facility] Rho (d) Immune 2019-06-10 Completed [facility] 00:00:00 [facility] Rho (d) Immune 2019-06-10 Completed [facility] 00:00:00 [facility] Rho (d) Immune 2019-06-10 Completed [facility] 00:00:00 [facility] Rho (d) Immune 2019-06-10 Completed [facility] 00:00:00 [facility] Rho (d) Immune 2019-06-10 Completed [facility] 00:00:00 [facility] Rho (d) Immune 2019-06-10 Completed [facility] 00:00:00 [facility] Rho (d) Immune 2019-06-10 Completed [facility] 00:00:00 [facility] Rho (d) Immune 2019-06-10 Completed [facility] 00:00:00 [facility] Rho (d) Immune 2019-06-10 Completed [facility] 00:00:00 [facility] Rho (d) Immune 2019-06-10 Completed [facility] 00:00:00 [facility] Rho (d) Immune 2019-06-10 Completed [facility] 00:00:00 [facility] Rho (d) Immune 2019-06-10 Completed [facility] 00:00:00 [facility] Rho (d) Immune 2019-06-10 Completed [facility] 00:00:00 [facility] Rho (d) Immune 2019-06-10 Completed [facility] 00:00:00 [facility] Rho (d) Immune 2019-06-10 Completed [facility] 00:00:00 [facility] Rho (d) Immune 2019-06-10 Completed [facility] 00:00:00 [facility] Rho (d) Immune 2019-06-10 Completed [facility] 00:00:00 [facility] Rho (d) Immune 2019-06-10 Completed [facility] 00:00:00 [facility] Rho (d) Immune 2019-06-10 Completed [facility] 00:00:00 [facility] Rho (d) Immune 2019-06-10 Completed [facility] 00:00:00 [facility] Rho (d) Immune 2019-06-10 Completed [facility] 00:00:00 [facility] Rho (d) Immune 2019-06-10 Completed [facility] 00:00:00 [facility] Rho (d) Immune 2019-06-10 Completed [facility] 00:00:00 [facility] Rho (d) Immune 2019-06-10 Completed [facility] 00:00:00 [facility] Rho (d) Immune 2019-06-10 Completed [facility] 00:00:00 [facility] Rho (d) Immune 2019-06-10 Completed [facility] 00:00:00 [facility] Rho (d) Immune 2019-06-10 Completed [facility] 00:00:00 [facility] Rho (d) Immune 2019-06-10 Completed [facility] 00:00:00 [facility] Rho (d) Immune 2019-06-10 Completed [facility] 00:00:00 [facility] Rho (d) Immune 2019-06-10 Completed [facility] 00:00:00 [facility] Rho (d) Immune 2019-06-10 Completed [facility] 00:00:00 [facility] Rho (d) Immune 2019-06-10 Completed [facility] 00:00:00 [facility] Rho (d) Immune 2019-06-10 Completed [facility] 00:00:00 [facility] Rho (d) Immune 2019-06-10 Completed [facility] 00:00:00 [facility] Rho (d) Immune 2019-06-10 Completed [facility] 00:00:00 [facility] Rho (d) Immune 2019-06-10 Completed [facility] 00:00:00 [facility] Rho (d) Immune 2019-06-10 Completed [facility] 00:00:00 [facility] Rho (d) Immune 2019-06-10 Completed [facility] 00:00:00 [facility] Rho (d) Immune 2019-06-10 Completed [facility] 00:00:00 [facility] Rho (d) Immune 2019-06-10 Completed [facility] 00:00:00 [facility] Rho (d) Immune 2019-06-10 Completed [facility] 00:00:00 [facility] Rho (d) Immune 2019-06-10 Completed [facility] 00:00:00 [facility] Rho (d) Immune 2019-06-10 Completed [facility] 00:00:00 [facility] Rho (d) Immune 2019-06-10 Completed [facility] 00:00:00 [facility] Rho (d) Immune 2019-06-10 Completed [facility] 00:00:00 [facility] Rho (d) Immune 2019-06-10 Completed [facility] 00:00:00 [facility] Rho (d) Immune 2019-06-10 Completed [facility] 00:00:00 [facility] Rho (d) Immune 2019-06-10 Completed [facility] 00:00:00 [facility] Rho (d) Immune 2019-06-10 Completed [facility] 00:00:00 [facility] Rho (d) Immune 2019-06-10 Completed [facility] 00:00:00 [facility] Rho (d) Immune 2019-06-10 Completed [facility] 00:00:00 [facility] Rho (d) Immune 2019-06-10 Completed [facility] 00:00:00 [facility] Rho (d) Immune 2019-06-10 Completed [facility] 00:00:00 [facility] Rho (d) Immune 2019-06-10 Completed [facility] 00:00:00 [facility] Rho (d) Immune 2019-06-10 Completed [facility] 00:00:00 [facility] Rho (d) Immune 2019-06-10 Completed [facility] 00:00:00 [facility] Rho (d) Immune 2019-06-10 Completed [facility] 00:00:00 [facility] Rho (d) Immune 2019-06-10 Completed [facility] 00:00:00 [facility] Rho (d) Immune 2019-06-10 Completed [facility] 00:00:00 [facility] Rho (d) Immune 2019-06-10 Completed [facility] 00:00:00 [facility] Rho (d) Immune 2019-06-10 Completed [facility] 00:00:00 [facility] Tdap 2019-03-29 Completed [facility] of 00:00:00 [facility] Rho (d) Immune 2019-03-29 Completed [facility] 00:00:00 [facility] Tdap 2019-03-29 Completed [facility] 00:00:00 [facility] Rho (d) Immune 2019-03-29 Completed [facility] 00:00:00 [facility] Tdap 2019-03-29 Completed [facility] 00:00:00 [facility] Rho (d) Immune 2019-03-29 Completed [facility] 00:00:00 [facility] Tdap 2019-03-29 Completed [facility] of 00:00:00 [facility] Rho (d) Immune 2019-03-29 Completed [facility] 00:00:00 [facility] Tdap 2019-03-29 Completed [facility] of 00:00:00 [facility] Rho (d) Immune 2019-03-29 Completed [facility] 00:00:00 [facility] Tdap 2019-03-29 Completed [facility] of 00:00:00 [facility] Rho (d) Immune 2019-03-29 Completed [facility] 00:00:00 [facility] Tdap 2019-03-29 Completed [facility] of 00:00:00 [facility] Rho (d) Immune 2019-03-29 Completed [facility] 00:00:00 [facility] Tdap 2019-03-29 Completed [facility] of 00:00:00 [facility] Rho (d) Immune 2019-03-29 Completed [facility] 00:00:00 [facility] Tdap 2019-03-29 Completed [facility] of 00:00:00 [facility] Rho (d) Immune 2019-03-29 Completed [facility] 00:00:00 [facility] Tdap 2019-03-29 Completed [facility] of 00:00:00 [facility] Rho (d) Immune 2019-03-29 Completed [facility] 00:00:00 [facility] Tdap 2019-03-29 Completed [facility] of 00:00:00 [facility] Rho (d) Immune 2019-03-29 Completed [facility] 00:00:00 [facility] Tdap 2019-03-29 Completed [facility] of 00:00:00 [facility] Rho (d) Immune 2019-03-29 Completed [facility] 00:00:00 [facility] Tdap 2019-03-29 Completed [facility] of 00:00:00 [facility] Rho (d) Immune 2019-03-29 Completed [facility] 00:00:00 [facility] TDAP 2019-03-29 Completed [facility] of 00:00:00 [facility] Rho (d) Immune 2019-03-29 Completed [facility] 00:00:00 [facility] TDAP 2019-03-29 Completed [facility] 00:00:00 [facility] Rho (d) Immune 2019-03-29 Completed [facility] 00:00:00 [facility] TDAP 2019-03-29 Completed [facility] of 00:00:00 [facility] Rho (d) Immune 2019-03-29 Completed [facility] 00:00:00 [facility] TDAP 2019-03-29 Completed [facility] of 00:00:00 [facility] Rho (d) Immune 2019-03-29 Completed [facility] 00:00:00 [facility] TDAP 2019-03-29 Completed [facility] of 00:00:00 [facility] Rho (d) Immune 2019-03-29 Completed [facility] 00:00:00 [facility] TDAP 2019-03-29 Completed [facility] of 00:00:00 [facility] Rho (d) Immune 2019-03-29 Completed [facility] 00:00:00 [facility] TDAP 2019-03-29 Completed [facility] of 00:00:00 [facility] Rho (d) Immune 2019-03-29 Completed [facility] 00:00:00 [facility] TDAP 2019-03-29 Completed [facility] of 00:00:00 [facility] Rho (d) Immune 2019-03-29 Completed [facility] 00:00:00 [facility] TDAP 2019-03-29 Completed [facility] of 00:00:00 [facility] Rho (d) Immune 2019-03-29 Completed [facility] 00:00:00 [facility] TDAP 2019-03-29 Completed [facility] of 00:00:00 [facility] Rho (d) Immune 2019-03-29 Completed [facility] 00:00:00 [facility] TDAP 2019-03-29 Completed [facility] of 00:00:00 [facility] Rho (d) Immune 2019-03-29 Completed [facility] 00:00:00 [facility] TDAP 2019-03-29 Completed [facility] of 00:00:00 [facility] Rho (d) Immune 2019-03-29 Completed [facility] 00:00:00 [facility] TDAP 2019-03-29 Completed [facility] of 00:00:00 [facility] Rho (d) Immune 2019-03-29 Completed [facility] 00:00:00 [facility] TDAP 2019-03-29 Completed [facility] of 00:00:00 [facility] Rho (d) Immune 2019-03-29 Completed [facility] 00:00:00 [facility] TDAP 2019-03-29 Completed [facility] of 00:00:00 [facility] Rho (d) Immune 2019-03-29 Completed [facility] 00:00:00 [facility] TDAP 2019-03-29 Completed [facility] of 00:00:00 [facility] Rho (d) Immune 2019-03-29 Completed [facility] 00:00:00 [facility] TDAP 2019-03-29 Completed [facility] of 00:00:00 [facility] Rho (d) Immune 2019-03-29 Completed [facility] 00:00:00 [facility] TDAP 2019-03-29 Completed [facility] of 00:00:00 [facility] Rho (d) Immune 2019-03-29 Completed [facility] 00:00:00 [facility] TDAP 2019-03-29 Completed [facility] of 00:00:00 [facility] Rho (d) Immune 2019-03-29 Completed [facility] 00:00:00 [facility] TDAP 2019-03-29 Completed [facility] of 00:00:00 [facility] Rho (d) Immune 2019-03-29 Completed [facility] 00:00:00 [facility] TDAP 2019-03-29 Completed [facility] of 00:00:00 [facility] Rho (d) Immune 2019-03-29 Completed [facility] 00:00:00 [facility] TDAP 2019-03-29 Completed [facility] of 00:00:00 [facility] Rho (d) Immune 2019-03-29 Completed [facility] 00:00:00 [facility] TDAP 2019-03-29 Completed [facility] of 00:00:00 [facility] Rho (d) Immune 2019-03-29 Completed [facility] 00:00:00 [facility] TDAP 2019-03-29 Completed [facility] of 00:00:00 [facility] Rho (d) Immune 2019-03-29 Completed [facility] 00:00:00 [facility] TDAP 2019-03-29 Completed [facility] of 00:00:00 [facility] Rho (d) Immune 2019-03-29 Completed [facility] 00:00:00 [facility] TDAP 2019-03-29 Completed [facility] of 00:00:00 [facility] Rho (d) Immune 2019-03-29 Completed [facility] 00:00:00 [facility] TDAP 2019-03-29 Completed [facility] of 00:00:00 [facility] Rho (d) Immune 2019-03-29 Completed [facility] 00:00:00 [facility] TDAP 2019-03-29 Completed [facility] of 00:00:00 [facility] Rho (d) Immune 2019-03-29 Completed [facility] 00:00:00 [facility] TDAP 2019-03-29 Completed [facility] of 00:00:00 [facility] Rho (d) Immune 2019-03-29 Completed [facility] 00:00:00 [facility] TDAP 2019-03-29 Completed [facility] of 00:00:00 [facility] Rho (d) Immune 2019-03-29 Completed [facility] 00:00:00 [facility] TDAP 2019-03-29 Completed [facility] of 00:00:00 [facility] Rho (d) Immune 2019-03-29 Completed [facility] 00:00:00 [facility] TDAP 2019-03-29 Completed [facility] of 00:00:00 [facility] Rho (d) Immune 2019-03-29 Completed [facility] 00:00:00 [facility] TDAP 2019-03-29 Completed [facility] of 00:00:00 [facility] Rho (d) Immune 2019-03-29 Completed [facility] 00:00:00 [facility] TDAP 2019-03-29 Completed [facility] of 00:00:00 [facility] Rho (d) Immune 2019-03-29 Completed [facility] 00:00:00 [facility] TDAP 2019-03-29 Completed [facility] of 00:00:00 [facility] Rho (d) Immune 2019-03-29 Completed [facility] 00:00:00 [facility] TDAP 2019-03-29 Completed [facility] of 00:00:00 [facility] Rho (d) Immune 2019-03-29 Completed [facility] 00:00:00 [facility] TDAP 2019-03-29 Completed [facility] of 00:00:00 [facility] Rho (d) Immune 2019-03-29 Completed [facility] 00:00:00 [facility] TDAP 2019-03-29 Completed [facility] of 00:00:00 [facility] Rho (d) Immune 2019-03-29 Completed [facility] 00:00:00 [facility] TDAP 2019-03-29 Completed [facility] of 00:00:00 [facility] Rho (d) Immune 2019-03-29 Completed [facility] 00:00:00 [facility] TDAP 2019-03-29 Completed [facility] of 00:00:00 [facility] Rho (d) Immune 2019-03-29 Completed [facility] 00:00:00 [facility] TDAP 2019-03-29 Completed [facility] of 00:00:00 [facility] Rho (d) Immune 2019-03-29 Completed [facility] 00:00:00 [facility] TDAP 2019-03-29 Completed [facility] of 00:00:00 [facility] Rho (d) Immune 2019-03-29 Completed [facility] 00:00:00 [facility] TDAP 2019-03-29 Completed [facility] of 00:00:00 [facility] Rho (d) Immune 2019-03-29 Completed [facility] 00:00:00 [facility] TDAP 2019-03-29 Completed [facility] of 00:00:00 [facility] Rho (d) Immune 2019-03-29 Completed [facility] 00:00:00 [facility] TDAP 2019-03-29 Completed [facility] of 00:00:00 [facility] Rho (d) Immune 2019-03-29 Completed [facility] 00:00:00 [facility] TDAP 2019-03-29 Completed [facility] of 00:00:00 [facility] Rho (d) Immune 2019-03-29 Completed [facility] 00:00:00 [facility] TDAP 2019-03-29 Completed [facility] of 00:00:00 [facility] Rho (d) Immune 2019-03-29 Completed [facility] 00:00:00 [facility] TDAP 2019-03-29 Completed [facility] of 00:00:00 [facility] Rho (d) Immune 2019-03-29 Completed [facility] 00:00:00 [facility] TDAP 2019-03-29 Completed [facility] 00:00:00 [facility] Rho (d) Immune 2019-03-29 Completed [facility] 00:00:00 [facility] TDAP 2019-03-29 Completed [facility] of 00:00:00 [facility] Rho (d) Immune 2019-03-29 Completed [facility] Gl[facility] 00:00:00 [facility] TDAP 2019-03-29 Completed [facility] of 00:00:00 [facility] Rho (d) Immune 2019-03-29 Completed [facility] 00:00:00 [facility] TDAP 2019-03-29 Completed [facility] 00:00:00 [facility] Rho (d) Immune 2019-03-29 Completed [facility] 00:00:00 [facility] TDAP 2019-03-29 Completed [facility] of 00:00:00 [facility] Rho (d) Immune 2019-03-29 Completed [facility] 00:00:00 [facility] TDAP 2019-03-29 Completed [facility] of 00:00:00 [facility] Rho (d) Immune 2019-03-29 Completed [facility] 00:00:00 [facility] TDAP 2019-03-29 Completed [facility] of 00:00:00 [facility] Rho (d) Immune 2019-03-29 Completed [facility] 00:00:00 [facility] TDAP 2019-03-29 Completed [facility] of 00:00:00 [facility] Rho (d) Immune 2019-03-29 Completed [facility] 00:00:00 [facility] TDAP 2019-03-29 Completed [facility] of 00:00:00 [facility] Rho (d) Immune 2019-03-29 Completed [facility] 00:00:00 [facility] TDAP 2019-03-29 Completed [facility] of 00:00:00 [facility] Rho (d) Immune 2019-03-29 Completed [facility] 00:00:00 [facility] TDAP 2019-03-29 Completed [facility] of 00:00:00 [facility] Rho (d) Immune 2019-03-29 Completed [facility] 00:00:00 [facility] TDAP 2019-03-29 Completed [facility] of 00:00:00 [facility] Rho (d) Immune 2019-03-29 Completed [facility] 00:00:00 [facility] TDAP 2019-03-29 Completed [facility] of 00:00:00 [facility] Rho (d) Immune 2019-03-29 Completed [facility] 00:00:00 [facility] TDAP 2019-03-29 Completed [facility] of 00:00:00 [facility] Rho (d) Immune 2019-03-29 Completed [facility] 00:00:00 [facility] TDAP 2019-03-29 Completed [facility] of 00:00:00 [facility] Rho (d) Immune 2019-03-29 Completed [facility] 00:00:00 [facility] TDAP 2019-03-29 Completed [facility] 00:00:00 [facility] Rho (d) Immune 2019-03-29 Completed [facility] 00:00:00 [facility] TDAP 2019-03-29 Completed [facility] of 00:00:00 [facility] Rho (d) Immune 2019-03-29 Completed [facility] 00:00:00 [facility] TDAP 2019-03-29 Completed [facility] of 00:00:00 [facility] Rho (d) Immune 2019-03-29 Completed [facility] 00:00:00 [facility] TDAP 2019-03-29 Completed [facility] of 00:00:00 [facility] Rho (d) Immune 2019-03-29 Completed [facility] 00:00:00 [facility] TDAP 2019-03-29 Completed [facility] of 00:00:00 [facility] Rho (d) Immune 2019-03-29 Completed [facility] 00:00:00 [facility] TDAP 2019-03-29 Completed [facility] of 00:00:00 [facility] Rho (d) Immune 2019-03-29 Completed [facility] 00:00:00 [facility] TDAP 2019-03-29 Completed [facility] of 00:00:00 [facility] Rho (d) Immune 2019-03-29 Completed [facility] 00:00:00 [facility] TDAP 2019-03-29 Completed [facility] of 00:00:00 [facility] Rho (d) Immune 2019-03-29 Completed [facility] 00:00:00 [facility] TDAP 2019-03-29 Completed [facility] of 00:00:00 [facility] Rho (d) Immune 2019-03-29 Completed [facility] 00:00:00 [facility] TDAP 2019-03-29 Completed [facility] of 00:00:00 [facility] Rho (d) Immune 2019-03-29 Completed [facility] 00:00:00 [facility] TDAP 2019-03-29 Completed [facility] 00:00:00 [facility] Rho (d) Immune 2019-03-29 Completed [facility] 00:00:00 [facility] TDAP 2019-03-29 Completed [facility] 00:00:00 [facility] Rho (d) Immune 2019-03-29 Completed [facility] 00:00:00 [facility] TDAP 2019-03-29 Completed [facility] of 00:00:00 [facility] Rho (d) Immune 2019-03-29 Completed [facility] 00:00:00 [facility] TDAP 2019-03-29 Completed [facility] 00:00:00 [facility] Rho (d) Immune 2019-03-29 Completed [facility] 00:00:00 [facility] TDAP 2019-03-29 Completed [facility] 00:00:00 [facility] Rho (d) Immune 2019-03-29 Completed [facility] 00:00:00 [facility] TDAP 2019-03-29 Completed [facility] of 00:00:00 [facility] Rho (d) Immune 2019-03-29 Completed [facility] 00:00:00 [facility] TDAP 2019-03-29 Completed [facility] of 00:00:00 [facility] Rho (d) Immune 2019-03-29 Completed [facility] 00:00:00 [facility] Tdap 2019-03-29 Completed [facility] 00:00:00 [facility] Rho (d) Immune 2019-03-29 Completed [facility] 00:00:00 [facility] Tdap 2019-03-29 Completed [facility] of 00:00:00 [facility] Rho (d) Immune 2019-03-29 Completed [facility] 00:00:00 [facility] Tdap 2019-03-29 Completed [facility] of 00:00:00 [facility] Rho (d) Immune 2019-03-29 Completed [facility] 00:00:00 [facility] Tdap 2019-03-29 Completed [facility] of 00:00:00 [facility] Rho (d) Immune 2019-03-29 Completed [facility] 00:00:00 [facility] Tdap 2019-03-29 Completed [facility] 00:00:00 [facility] Rho (d) Immune 2019-03-29 Completed [facility] 00:00:00 [facility] Tdap 2019-03-29 Completed [facility] 00:00:00 [facility] Rho (d) Immune 2019-03-29 Completed [facility] 00:00:00 [facility] Tdap 2019-03-29 Completed [facility] 00:00:00 [facility] Rho (d) Immune 2019-03-29 Completed [facility] 00:00:00 [facility] Tdap 2019-03-29 Completed [facility] 00:00:00 [facility] Rho (d) Immune 2019-03-29 Completed [facility] 00:00:00 [facility] Influenza Virus 2018-10-20 Completed [facility] .5 mL 00:00:00 [facility] 6[facility] Influenza Virus 2018-10-20 Completed [facility] .5 mL 00:00:00 [facility] Influenza Virus 2018-10-20 Completed [facility] .5 mL 00:00:00 [facility] Influenza Virus 2018-10-20 Completed [facility] .5 mL 00:00:00 [facility] Influenza Virus 2018-10-20 Completed [facility] .5 mL 00:00:00 [facility] 6+ MO [facility] Influenza Virus 2018-10-20 Completed [facility] .5 mL 00:00:00 [facility] 6+ [facility] Influenza Virus 2018-10-20 Completed [facility] .5 mL 00:00:00 [facility] 6+ [facility] Influenza Virus 2018-10-20 Completed [facility] .5 mL 00:00:00 [facility] 6+ [facility] Influenza Virus 2018-10-20 Completed [facility] .5 mL 00:00:00 [facility] 6[facility] Influenza Virus 2018-10-20 Completed [facility] .5 mL 00:00:00 [facility] 6+ [facility] Influenza Virus 2018-10-20 Completed [facility] .5 mL 00:00:00 [facility] 6+ [facility] Influenza Virus 2018-10-20 Completed [facility] .5 mL 00:00:00 [facility] 6[facility] Influenza Virus 2018-10-20 Completed [facility] .5 mL 00:00:00 [facility] Influenza Virus 2018-10-20 Completed [facility] .5 mL 00:00:00 [facility] 6+ [facility] Influenza Virus 2018-10-20 Completed [facility] .5 mL 00:00:00 [facility] 6+ [facility] [facility] Influenza Virus 2018-10-20 Completed [facility] .5 mL 00:00:00 [facility] 6+ [facility] Influenza Virus 2018-10-20 [...] y of Vaccine [facility] .5 mL 00:00:00 [facility] 6+ [facility] Influenza Virus 2018-10-20 Completed [facility] .5 mL 00:00:00 [facility] 6[facility] Influenza Virus 2018-10-20 Completed [facility] .5 mL 00:00:00 [facility] 6[facility] Influenza Virus 2018-10-20 Completed [facility] .5 mL 00:00:00 [facility] 6[facility] Influenza Virus 2018-10-20 Completed [facility] .5 mL 00:00:00 [facility] 6+ MO [facility] Influenza Virus 2018-10-20 [...] y of Vaccine [facility] .5 mL 00:00:00 [facility] 6+ [facility] Influenza Virus 2018-10-20 Completed [facility] .5 mL 00:00:00 [facility] 6[facility] Influenza Virus 2018-10-20 Completed [facility] .5 mL 00:00:00 [facility] 6+ [facility] Influenza Virus 2018-10-20 Completed [facility] .5 mL 00:00:00 [facility] 6+ MO [facility] Influenza Virus 2018-10-20 [...] y of Vaccine [facility] .5 mL 00:00:00 [facility] 6[facility] Influenza Virus 2018-10-20 Completed [facility] .5 mL 00:00:00 [facility] 6[facility] Influenza Virus 2018-10-20 Completed [facility] .5 mL 00:00:00 [facility] 6+ [facility] Influenza Virus [...] y [facility] .5 mL 00:00:00 [facility] 6+ [facility] Influenza Virus [...] y [facility] .5 mL 00:00:00 [facility] 6[facility] Influenza Virus [...] y [facility] .5 mL 00:00:00 [facility] 6+ [facility] Influenza Virus 2018-10-20 Completed [facility] .5 mL 00:00:00 [facility] 6+ MO Branch HPV9 2018-07-11 Completed [facility] 00:00:00 [facility] HPV9 2018-07-11 Completed [facility] 00:00:00 [facility] HPV9 2018-07-11 Completed [facility] 00:00:00 [facility] HPV9 2018-07-11 Completed [facility] 00:00:00 [facility] HPV9 2018-07-11 Completed [facility] 00:00:00 [facility] HPV9 2018-07-11 Completed [facility] 00:00:00 [facility] HPV9 2018-07-11 Completed [facility] 00:00:00 [facility] HPV9 2018-07-11 Completed [facility] 00:00:00 [facility] HPV9 2018-07-11 Completed [facility] 00:00:00 [facility] HPV9 2018-07-11 Completed [facility] 00:00:00 [facility] HPV9 2018-07-11 Completed [facility] 00:00:00 [facility] HPV9 2018-07-11 Completed [facility] 00:00:00 [facility] HPV9 2018-07-11 Completed [facility] 00:00:00 [facility] HPV9 2018-07-11 Completed [facility] 00:00:00 [facility] HPV9 2018-07-11 Completed [facility] 00:00:00 [facility] HPV9 2018-07-11 Completed [facility] [...] Branch HPV9 2018-07-11 Completed [facility] 00:00:00 [facility] HPV9 2018-07-11 Completed [facility] [...] Branch HPV9 2018-07-11 Completed [facility] 00:00:00 [facility] HPV9 2018-07-11 Completed [facility] 00:00:00 [facility] HPV9 2018-07-11 Completed [facility] 00:00:00 [facility] HPV9 2018-07-11 Completed [facility] 00:00:00 [facility] HPV9 2018-07-11 Completed [facility] 00:00:00 [facility] HPV9 2018-07-11 Completed [facility] 00:00:00 [facility] HPV9 2018-07-11 Completed [facility] 00:00:00 [facility] HPV9 2018-07-11 Completed [facility] 00:00:00 [facility] HPV9 2018-07-11 Completed [facility] 00:00:00 [facility] HPV9 2018-07-11 Completed [facility] 00:00:00 [facility] HPV9 2018-07-11 Completed [facility] 00:00:00 [facility] HPV9 2018-06-11 Completed [facility] 00:00:00 [facility] Rho (d) Immune 2018-06-11 Completed [facility] Globulin 00:00:00 [facility] HPV9 2018-06-11 Completed [facility] 00:00:00 [facility] Rho (d) Immune 2018-06-11 Completed [facility] Globulin 00:00:00 [facility] HPV9 2018-06-11 Completed [facility] 00:00:00 [facility] Rho (d) Immune 2018-06-11 Completed [facility] Globulin 00:00:00 [facility] HPV9 2018-06-11 Completed [facility] 00:00:00 [facility] Rho (d) Immune 2018-06-11 Completed [facility] Globulin 00:00:00 [facility] HPV9 2018-06-11 Completed [facility] 00:00:00 [facility] Rho (d) Immune 2018-06-11 Completed [facility] Globulin 00:00:00 [facility] HPV9 2018-06-11 Completed [facility] 00:00:00 [facility] Rho (d) Immune 2018-06-11 Completed [facility] Globulin 00:00:00 [facility] HPV9 2018-06-11 Completed [facility] 00:00:00 [facility] Rho (d) Immune 2018-06-11 Completed [facility] Globulin 00:00:00 [facility] HPV9 2018-06-11 Completed [facility] 00:00:00 [facility] Rho (d) Immune 2018-06-11 Completed [facility] Globulin 00:00:00 [facility] HPV9 2018-06-11 Completed [facility] 00:00:00 [facility] Rho (d) Immune 2018-06-11 Completed [facility] Globulin 00:00:00 [facility] HPV9 2018-06-11 Completed [facility] 00:00:00 [facility] Rho (d) Immune 2018-06-11 Completed [facility] Globulin 00:00:00 [facility] HPV9 2018-06-11 Completed [facility] 00:00:00 [facility] Rho (d) Immune 2018-06-11 Completed [facility] Globulin 00:00:00 [facility] HPV9 2018-06-11 Completed [facility] 00:00:00 [facility] Rho (d) Immune 2018-06-11 Completed [facility] Globulin 00:00:00 [facility] HPV9 2018-06-11 Completed [facility] 00:00:00 [facility] Rho (d) Immune 2018-06-11 Completed [facility] Globulin 00:00:00 [facility] HPV9 2018-06-11 Completed [facility] 00:00:00 [facility] Rho (d) Immune 2018-06-11 Completed [facility] Globulin 00:00:00 [facility] HPV9 2018-06-11 Completed [facility] 00:00:00 [facility] Rho (d) Immune 2018-06-11 Completed [facility] Globulin 00:00:00 [facility] HPV9 2018-06-11 Completed [facility] 00:00:00 [facility] Rho (d) Immune 2018-06-11 Completed [facility] Globulin 00:00:00 [facility] HPV9 2018-06-11 Completed [facility] 00:00:00 [facility] Rho (d) Immune 2018-06-11 Completed [facility] Globulin 00:00:00 [facility] HPV9 2018-06-11 Completed [facility] 00:00:00 [facility] Rho (d) Immune 2018-06-11 Completed [facility] Globulin 00:00:00 [facility] HPV9 2018-06-11 Completed [facility] 00:00:00 [facility] Rho (d) Immune 2018-06-11 Completed [facility] Globulin 00:00:00 [facility] HPV9 2018-06-11 Completed [facility] 00:00:00 [facility] Rho (d) Immune 2018-06-11 Completed [facility] Globulin 00:00:00 [facility] HPV9 2018-06-11 Completed [facility] 00:00:00 [facility] Rho (d) Immune 2018-06-11 Completed [facility] Globulin 00:00:00 [facility] HPV9 2018-06-11 Completed [facility] 00:00:00 [facility] Rho (d) Immune 2018-06-11 Completed [facility] Globulin 00:00:00 [facility] HPV9 2018-06-11 Completed [facility] 00:00:00 [facility] Rho (d) Immune 2018-06-11 Completed [facility] Globulin 00:00:00 [facility] HPV9 2018-06-11 Completed [facility] 00:00:00 [facility] Rho (d) Immune 2018-06-11 Completed [facility] Globulin 00:00:00 [facility] HPV9 2018-06-11 Completed [facility] 00:00:00 [facility] Rho (d) Immune 2018-06-11 Completed [facility] Globulin 00:00:00 [facility] HPV9 2018-06-11 Completed [facility] 00:00:00 [facility] Rho (d) Immune 2018-06-11 Completed [facility] Globulin 00:00:00 [facility] HPV9 2018-06-11 Completed [facility] 00:00:00 [facility] Rho (d) Immune 2018-06-11 Completed [facility] Globulin 00:00:00 [facility] HPV9 2018-06-11 Completed [facility] 00:00:00 [facility] Rho (d) Immune 2018-06-11 Completed [facility] Globulin 00:00:00 [facility] HPV9 2018-06-11 Completed [facility] 00:00:00 [facility] Rho (d) Immune 2018-06-11 Completed [facility] Globulin 00:00:00 [facility] HPV9 2018-06-11 Completed [facility] 00:00:00 [facility] Rho (d) Immune 2018-06-11 Completed [facility] Globulin 00:00:00 [facility] HPV9 2018-06-11 Completed [facility] 00:00:00 [facility] Rho (d) Immune 2018-06-11 Completed [facility] Globulin 00:00:00 [facility] HPV9 2018-06-11 Completed [facility] 00:00:00 [facility] Rho (d) Immune 2018-06-11 Completed [facility] Globulin 00:00:00 [facility] HPV9 2018-06-11 Completed [facility] 00:00:00 [facility] Rho (d) Immune 2018-06-11 Completed [facility] Globulin 00:00:00 [facility] HPV9 2018-06-11 Completed [facility] 00:00:00 [facility] Rho (d) Immune 2018-06-11 Completed [facility] Globulin 00:00:00 [facility] HPV9 2018-06-11 Completed [facility] 00:00:00 [facility] Rho (d) Immune 2018-06-11 Completed [facility] Globulin 00:00:00 [facility] HPV9 2018-06-11 Completed [facility] 00:00:00 [facility] Rho (d) Immune 2018-06-11 Completed [facility] Globulin 00:00:00 [facility] HPV9 2018-06-11 Completed [facility] 00:00:00 [facility] Rho (d) Immune 2018-06-11 Completed [facility] Globulin 00:00:00 [facility] HPV9 2018-06-11 Completed [facility] 00:00:00 [facility] Rho (d) Immune 2018-06-11 Completed [facility] Globulin 00:00:00 [facility] HPV9 2018-06-11 Completed [facility] 00:00:00 [facility] Rho (d) Immune 2018-06-11 Completed [facility] Globulin 00:00:00 [facility] HPV9 2018-06-11 Completed [facility] 00:00:00 [facility] Rho (d) Immune 2018-06-11 Completed [facility] Globulin 00:00:00 [facility] HPV9 2018-06-11 Completed [facility] 00:00:00 [facility] Rho (d) Immune 2018-06-11 Completed [facility] Globulin 00:00:00 [facility] HPV9 2018-06-11 Completed [facility] 00:00:00 [facility] Rho (d) Immune 2018-06-11 Completed [facility] Globulin 00:00:00 [facility] HPV9 2018-06-11 Completed [facility] 00:00:00 [facility] Rho (d) Immune 2018-06-11 Completed [facility] Globulin 00:00:00 [facility] HPV9 2018-06-11 Completed [facility] 00:00:00 [facility] Rho (d) Immune 2018-06-11 Completed [facility] Globulin 00:00:00 [facility] HPV9 2018-06-11 Completed [facility] 00:00:00 [facility] Rho (d) Immune 2018-06-11 Completed [facility] Globulin 00:00:00 [facility] HPV9 2018-06-11 Completed [facility] 00:00:00 [facility] Rho (d) Immune 2018-06-11 Completed [facility] Globulin 00:00:00 [facility] HPV9 2018-06-11 Completed [facility] 00:00:00 [facility] Rho (d) Immune 2018-06-11 Completed [facility] Globulin 00:00:00 [facility] HPV9 2018-06-11 Completed [facility] 00:00:00 [facility] Rho (d) Immune 2018-06-11 Completed [facility] Globulin 00:00:00 [facility] HPV9 2018-06-11 Completed [facility] 00:00:00 [facility] Rho (d) Immune 2018-06-11 Completed [facility] Globulin 00:00:00 [facility] HPV9 2018-06-11 Completed [facility] 00:00:00 [facility] Rho (d) Immune 2018-06-11 Completed [facility] Globulin 00:00:00 [facility] HPV9 2018-06-11 Completed [facility] 00:00:00 [facility] Rho (d) Immune 2018-06-11 Completed [facility] Globulin 00:00:00 [facility] HPV9 2018-06-11 Completed [facility] 00:00:00 [facility] Rho (d) Immune 2018-06-11 Completed [facility] Globulin 00:00:00 [facility] HPV9 2018-06-11 Completed [facility] 00:00:00 [facility] Rho (d) Immune 2018-06-11 Completed [facility] Globulin 00:00:00 [facility] HPV9 2018-06-11 Completed [facility] 00:00:00 [facility] Rho (d) Immune 2018-06-11 Completed [facility] Globulin 00:00:00 [facility] HPV9 2018-06-11 Completed [facility] 00:00:00 [facility] Rho (d) Immune 2018-06-11 Completed [facility] Globulin 00:00:00 [facility] HPV9 2018-06-11 Completed [facility] 00:00:00 [facility] Rho (d) Immune 2018-06-11 Completed [facility] Globulin 00:00:00 [facility] HPV9 2018-06-11 Completed [facility] 00:00:00 [facility] Rho (d) Immune 2018-06-11 Completed [facility] Globulin 00:00:00 [facility] HPV9 2018-06-11 Completed [facility] 00:00:00 [facility] Rho (d) Immune 2018-06-11 Completed [facility] Globulin 00:00:00 [facility] HPV9 2018-06-11 Completed [facility] 00:00:00 [facility] Rho (d) Immune 2018-06-11 Completed [facility] Globulin 00:00:00 [facility] HPV9 2018-06-11 Completed [facility] 00:00:00 [facility] Rho (d) Immune 2018-06-11 Completed [facility] Globulin 00:00:00 [facility] HPV9 2018-06-11 Completed [facility] 00:00:00 [facility] Rho (d) Immune 2018-06-11 Completed [facility] Globulin 00:00:00 [facility] HPV9 2018-06-11 Completed [facility] 00:00:00 [facility] Rho (d) Immune 2018-06-11 Completed [facility] Globulin 00:00:00 [facility] HPV9 2018-06-11 Completed [facility] 00:00:00 [facility] Rho (d) Immune 2018-06-11 Completed [facility] Globulin 00:00:00 [facility] HPV9 2018-06-11 Completed [facility] 00:00:00 [facility] Rho (d) Immune 2018-06-11 Completed [facility] Globulin 00:00:00 [facility] HPV9 2018-06-11 Completed [facility] 00:00:00 [facility] Rho (d) Immune 2018-06-11 Completed [facility] Globulin 00:00:00 [facility] HPV9 2018-06-11 Completed [facility] 00:00:00 [facility] Rho (d) Immune 2018-06-11 Completed [facility] Globulin 00:00:00 [facility] HPV9 2018-06-11 Completed [facility] 00:00:00 [facility] Rho (d) Immune 2018-06-11 Completed [facility] Globulin 00:00:00 [facility] HPV9 2018-06-11 Completed [facility] 00:00:00 [facility] Rho (d) Immune 2018-06-11 Completed [facility] Globulin 00:00:00 [facility] HPV9 2018-06-11 Completed [facility] 00:00:00 [facility] Rho (d) Immune 2018-06-11 Completed [facility] Globulin 00:00:00 [facility] HPV9 2018-06-11 Completed [facility] 00:00:00 [facility] Rho (d) Immune 2018-06-11 Completed [facility] Globulin 00:00:00 [facility] HPV9 2018-06-11 Completed [facility] 00:00:00 [facility] Rho (d) Immune 2018-06-11 Completed [facility] Globulin 00:00:00 [facility] HPV9 2018-06-11 Completed [facility] 00:00:00 [facility] Rho (d) Immune 2018-06-11 Completed [facility] Globulin 00:00:00 [facility] HPV9 2018-06-11 Completed [facility] 00:00:00 [facility] Rho (d) Immune 2018-06-11 Completed [facility] Globulin 00:00:00 [facility] HPV9 2018-06-11 Completed [facility] 00:00:00 [facility] Rho (d) Immune 2018-06-11 Completed [facility] Globulin 00:00:00 [facility] HPV9 2018-06-11 Completed [facility] 00:00:00 [facility] Rho (d) Immune 2018-06-11 Completed [facility] Globulin 00:00:00 [facility] HPV9 2018-06-11 Completed [facility] 00:00:00 [facility] Rho (d) Immune 2018-06-11 Completed [facility] Globulin 00:00:00 [facility] HPV9 2018-06-11 Completed [facility] 00:00:00 [facility] Rho (d) Immune 2018-06-11 Completed [facility] Globulin 00:00:00 [facility] HPV9 2018-06-11 Completed [facility] 00:00:00 [facility] Rho (d) Immune 2018-06-11 Completed [facility] Globulin 00:00:00 [facility] HPV9 2018-06-11 Completed [facility] 00:00:00 [facility] Rho (d) Immune 2018-06-11 Completed [facility] Globulin 00:00:00 [facility] HPV9 2018-06-11 Completed [facility] 00:00:00 [facility] Rho (d) Immune 2018-06-11 Completed [facility] Globulin 00:00:00 [facility] HPV9 2018-06-11 Completed [facility] 00:00:00 [facility] Rho (d) Immune 2018-06-11 Completed [facility] Globulin 00:00:00 [facility] HPV9 2018-06-11 Completed [facility] 00:00:00 [facility] Rho (d) Immune 2018-06-11 Completed [facility] Globulin 00:00:00 [facility] HPV9 2018-06-11 Completed [facility] 00:00:00 [facility] Rho (d) Immune 2018-06-11 Completed [facility] Globulin 00:00:00 [facility] HPV9 2018-06-11 Completed [facility] 00:00:00 [facility] Rho (d) Immune 2018-06-11 Completed [facility] Globulin 00:00:00 [facility] HPV9 2018-06-11 Completed [facility] 00:00:00 [facility] Rho (d) Immune 2018-06-11 Completed [facility] Globulin 00:00:00 [facility] HPV9 2018-06-11 Completed [facility] 00:00:00 [facility] Rho (d) Immune 2018-06-11 Completed [facility] Globulin 00:00:00 [facility] HPV9 2018-06-11 Completed [facility] 00:00:00 [facility] Rho (d) Immune 2018-06-11 Completed [facility] Gl[facility]ulin 00:00:00 [facility] HPV9 2018-06-11 Completed [facility] 00:00:00 [facility] Rho (d) Immune 2018-06-11 Completed [facility] Gl[facility]ulin 00:00:00 [facility] HPV9 2018-06-11 Completed [facility] 00:00:00 [facility] Rho (d) Immune 2018-06-11 Completed [facility] Gl[facility]ulin 00:00:00 [facility] HPV9 2018-06-11 Completed [facility] 00:00:00 [facility] Rho (d) Immune 2018-06-11 Completed [facility] Gl[facility]ulin 00:00:00 [facility] HPV9 2018-06-11 Completed [facility] 00:00:00 [facility] Rho (d) Immune 2018-06-11 Completed [facility] Gl[facility]ulin 00:00:00 [facility] HPV9 2018-06-11 Completed [facility] 00:00:00 [facility] Rho (d) Immune 2018-06-11 Completed [facility] Gl[facility]ulin 00:00:00 [facility] HPV9 2018-06-11 Completed [facility] 00:00:00 [facility] Rho (d) Immune 2018-06-11 Completed [facility] Gl[facility]ulin 00:00:00 [facility] HPV9 2018-06-11 Completed [facility] 00:00:00 [facility] Rho (d) Immune 2018-06-11 Completed [facility] Gl[facility] 00:00:00 [facility] HPV9 2018-06-11 Completed [facility] 00:00:00 [facility] Rho (d) Immune 2018-06-11 Completed [facility] Gl[facility]ulin 00:00:00 [facility] HPV9 2018-06-11 Completed [facility] 00:00:00 [facility] Rho (d) Immune 2018-06-11 Completed [facility] Gl[facility]ulin 00:00:00 [facility] HPV9 2018-06-11 Completed [facility] 00:00:00 [facility] Branch Rho (d) Immune 2018-06-11 Completed [facility] Globulin 00:00:00 [facility] HPV9 2018-06-11 Completed [facility] 00:00:00 [facility] Rho (d) Immune 2018-06-11 Completed [facility] Gl[facility]ulin 00:00:00 [facility] HPV9 2018-06-11 Completed [facility] 00:00:00 [facility] Rho (d) Immune 2018-06-11 Completed [facility] Gl[facility]ulin 00:00:00 [facility] HPV9 2018-06-11 Completed [facility] 00:00:00 [facility] Rho (d) Immune 2018-06-11 Completed [facility] Gl[facility]ulin 00:00:00 [facility] HPV9 2018-06-11 Completed [facility] 00:00:00 [facility] Rho (d) Immune 2018-06-11 Completed [facility] Globulin 00:00:00 [facility] HPV9 2018-06-11 Completed [facility] 00:00:00 [facility] [facility] Rho (d) Immune 2018-06-11 Completed [facility] Globulin 00:00:00 [facility] HPV9 2018-06-11 Completed [facility] of 00:00:00 [facility] Rho (d) Immune 2018-06-11 Completed [facility] Globulin 00:00:00 [facility] HPV9 2018-06-11 Completed [facility] 00:00:00 [facility] Rho (d) Immune 2018-06-11 Completed [facility] Globulin 00:00:00 [facility] HPV9 2018-06-11 Completed [facility] 00:00:00 [facility] Rho (d) Immune 2018-06-11 Completed [facility] Globulin 00:00:00 [facility] HPV9 2018-06-11 Completed [facility] 00:00:00 [facility] Rho (d) Immune 2018-06-11 Completed [facility] Globulin 00:00:00 [facility] HPV9 2018-06-11 Completed [facility] 00:00:00 [facility] Rho (d) Immune 2018-06-11 Completed [facility] Globulin 00:00:00 [facility] HPV9 2018-06-11 Completed [facility] 00:00:00 [facility] Rho (d) Immune 2018-06-11 Completed [facility] Globulin 00:00:00 [facility] HPV9 2018-06-11 Completed [facility] 00:00:00 [facility] Rho (d) Immune 2018-06-11 Completed [facility] Globulin 00:00:00 [facility] HPV9 2018-06-11 Completed [facility] 00:00:00 [facility] Rho (d) Immune 2018-06-11 Completed [facility] Globulin 00:00:00 [facility] Tdap 2018-04-18 Completed [facility] 00:00:00 [facility] Tdap 2018-04-18 Completed [facility] 00:00:00 [facility] Tdap 2018-04-18 Completed [facility] 00:00:00 [facility] Tdap 2018-04-18 Completed [facility] 00:00:00 [facility] Tdap 2018-04-18 Completed [facility] 00:00:00 [facility] Tdap 2018-04-18 Completed [facility] 00:00:00 [facility] Tdap 2018-04-18 Completed [facility] 00:00:00 [facility] Tdap 2018-04-18 Completed [facility] 00:00:00 [facility] Tdap 2018-04-18 Completed [facility] 00:00:00 [facility] Tdap 2018-04-18 Completed [facility] 00:00:00 [facility] Tdap 2018-04-18 Completed [facility] 00:00:00 [facility] Tdap 2018-04-18 Completed [facility] 00:00:00 [facility] TDAP 2018-04-18 Completed [facility] 00:00:00 [facility] TDAP 2018-04-18 Completed [facility] 00:00:00 [facility] TDAP 2018-04-18 Completed [facility] 00:00:00 [facility] TDAP 2018-04-18 Completed [facility] 00:00:00 [facility] TDAP 2018-04-18 Completed [facility] 00:00:00 [facility] TDAP 2018-04-18 Completed [facility] of 00:00:00 [facility] TDAP 2018-04-18 Completed [facility] of 00:00:00 [facility] TDAP 2018-04-18 Completed [facility] of 00:00:00 [facility] TDAP 2018-04-18 Completed [facility] of 00:00:00 [facility] TDAP 2018-04-18 Completed [facility] of 00:00:00 [facility] TDAP 2018-04-18 Completed [facility] 00:00:00 [facility] TDAP 2018-04-18 Completed [facility] 00:00:00 [facility] TDAP 2018-04-18 Completed [facility] 00:00:00 [facility] TDAP 2018-04-18 Completed [facility] 00:00:00 [facility] TDAP 2018-04-18 Completed [facility] 00:00:00 [facility] TDAP 2018-04-18 Completed [facility] 00:00:00 [facility] TDAP 2018-04-18 Completed [facility] 00:00:00 [facility] TDAP 2018-04-18 Completed [facility] 00:00:00 [facility] TDAP 2018-04-18 Completed [facility] 00:00:00 [facility] TDAP 2018-04-18 Completed [facility] 00:00:00 [facility] TDAP 2018-04-18 Completed [facility] 00:00:00 [facility] TDAP 2018-04-18 Completed [facility] 00:00:00 [facility] TDAP 2018-04-18 Completed [facility] 00:00:00 [facility] TDAP 2018-04-18 Completed [facility] 00:00:00 [facility] TDAP 2018-04-18 Completed [facility] 00:00:00 [facility] TDAP 2018-04-18 Completed [facility] 00:00:00 [facility] TDAP 2018-04-18 Completed [facility] 00:00:00 [facility] TDAP 2018-04-18 Completed [facility] 00:00:00 [facility] TDAP 2018-04-18 Completed [facility] 00:00:00 [facility] TDAP 2018-04-18 Completed [facility] 00:00:00 [facility] TDAP 2018-04-18 Completed [facility] 00:00:00 [facility] TDAP 2018-04-18 Completed [facility] 00:00:00 [facility] TDAP 2018-04-18 Completed [facility] 00:00:00 [facility] TDAP 2018-04-18 Completed [facility] 00:00:00 [facility] TDAP 2018-04-18 Completed [facility] 00:00:00 [facility] TDAP 2018-04-18 Completed [facility] 00:00:00 [facility] TDAP 2018-04-18 Completed [facility] 00:00:00 [facility] TDAP 2018-04-18 Completed [facility] 00:00:00 [facility] TDAP 2018-04-18 Completed [facility] 00:00:00 [facility] TDAP 2018-04-18 Completed [facility] 00:00:00 [facility] TDAP 2018-04-18 Completed [facility] 00:00:00 [facility] TDAP 2018-04-18 Completed [facility] 00:00:00 [facility] TDAP 2018-04-18 Completed [facility] 00:00:00 [facility] TDAP 2018-04-18 Completed [facility] 00:00:00 [facility] TDAP 2018-04-18 Completed [facility] 00:00:00 [facility] TDAP 2018-04-18 Completed [facility] of 00:00:00 [facility] TDAP 2018-04-18 Completed [facility] 00:00:00 [facility] TDAP 2018-04-18 Completed [facility] 00:00:00 [facility] TDAP 2018-04-18 Completed [facility] 00:00:00 [facility] TDAP 2018-04-18 Completed [facility] 00:00:00 [facility] TDAP 2018-04-18 Completed [facility] 00:00:00 [facility] TDAP 2018-04-18 Completed [facility] 00:00:00 [facility] TDAP 2018-04-18 Completed [facility] 00:00:00 [facility] TDAP 2018-04-18 Completed [facility] of 00:00:00 [facility] TDAP 2018-04-18 Completed [facility] of 00:00:00 [facility] TDAP 2018-04-18 Completed [facility] of 00:00:00 [facility] TDAP 2018-04-18 Completed [facility] of 00:00:00 [facility] TDAP 2018-04-18 Completed [facility] 00:00:00 [facility] TDAP 2018-04-18 Completed [facility] 00:00:00 [facility] TDAP 2018-04-18 Completed [facility] 00:00:00 [facility] TDAP 2018-04-18 Completed [facility] of 00:00:00 [facility] TDAP 2018-04-18 Completed [facility] 00:00:00 [facility] TDAP 2018-04-18 Completed [facility] 00:00:00 [facility] TDAP 2018-04-18 Completed [facility] 00:00:00 [facility] TDAP 2018-04-18 Completed [facility] 00:00:00 [facility] TDAP 2018-04-18 Completed [facility] 00:00:00 [facility] TDAP 2018-04-18 Completed [facility] 00:00:00 [facility] TDAP 2018-04-18 Completed [facility] of 00:00:00 [facility] TDAP 2018-04-18 Completed [facility] 00:00:00 [facility] TDAP 2018-04-18 Completed [facility] 00:00:00 [facility] TDAP 2018-04-18 Completed [facility] 00:00:00 [facility] TDAP 2018-04-18 Completed [facility] 00:00:00 [facility] TDAP 2018-04-18 Completed [facility] of 00:00:00 [facility] TDAP 2018-04-18 Completed [facility] 00:00:00 [facility] TDAP 2018-04-18 Completed [facility] 00:00:00 [facility] TDAP 2018-04-18 Completed [facility] 00:00:00 [facility] TDAP 2018-04-18 Completed [facility] 00:00:00 [facility] TDAP 2018-04-18 Completed [facility] 00:00:00 [facility] TDAP 2018-04-18 Completed [facility] 00:00:00 [facility] TDAP 2018-04-18 Completed [facility] of 00:00:00 [facility] Tdap 2018-04-18 Completed [facility] of 00:00:00 [facility] Tdap 2018-04-18 Completed [facility] of 00:00:00 [facility] Tdap 2018-04-18 Completed [facility] of 00:00:00 [facility] Tdap 2018-04-18 Completed [facility] of 00:00:00 [facility] Tdap 2018-04-18 Completed [facility] of 00:00:00 [facility] Tdap 2018-04-18 Completed [facility] of 00:00:00 [facility] Tdap 2018-04-18 Completed [facility] 00:00:00 [facility] Tdap 2018-04-18 Completed [facility] 00:00:00 [facility] Tdap 2018-04-18 Completed [facility] 00:00:00 [facility] Tdap 2018-04-18 Completed [facility] of 00:00:00 [facility] Tdap 2018-04-18 Completed [facility] of 00:00:00 [facility] Tdap 2018-04-18 Completed [facility] of 00:00:00 [facility] Tdap 2018-04-18 Completed [facility] of 00:00:00 [facility] Tdap 2018-04-18 Completed [facility] of 00:00:00 [facility] Tdap 2018-04-18 Completed University of 00:00:00 [facility] Tdap 2018-04-18 Completed [facility] of 00:00:00 [facility] Tdap 2018-04-18 Completed [facility] of 00:00:00 [facility] Tdap 2018-04-18 Completed University of 00:00:00 [facility] Vital Signs Vital Name Observation Time Observation Value Comments Source Systolic blood 2022-04-02 19:43:00 112 mm[Hg] Univer sity of pressure [facility] Diastolic blood 2022-04-02 19:43:00 73 mm[Hg] Unive rsity of pressure [facility] Heart rate 2022-04-02 19:43:00 78 /min Universi ty of [facility] Body temperature 2022-04-02 19:43:00 36.89 Elida Univ ersity of [facility] Respiratory rate 2022-04-02 19:43:00 18 /[facility] Body weight 2022-04-02 19:43:00 82.373 kg Universi ty [facility] Systolic blood 2021-03-27 14:34:00 105 mm[Hg] Univer sity of pressure [facility] Diastolic blood 2021-03-27 14:34:00 68 mm[Hg] Unive rsity of pressure [facility] Heart rate 2021-03-27 14:34:00 130 /min Universi ty [facility] Body temperature 2021-03-27 14:34:00 37.06 Elida [facility] Respiratory rate 2021-03-27 14:34:00 18 /min Univ ersity of [facility] Body weight 2021-03-27 14:34:00 90.719 kg Universi ty of [facility] BMI 2021-03-27 14:34:00 32.28 kg/m2 Universi ty [facility] Oxygen saturation in 2021-03-27 14:34:00 98 /min [facility] Arterial blood by [facility] Pulse oximetry Branch Systolic blood 2021-03-27 14:34:00 105 mm[Hg] Univer sity of pressure [facility] Diastolic blood 2021-03-27 14:34:00 68 mm[Hg] Unive rsity of pressure [facility] Heart rate 2021-03-27 14:34:00 130 /min Universi ty [facility] Body temperature 2021-03-27 14:34:00 37.06 Elida Univ ersity [facility] Respiratory rate 2021-03-27 14:34:00 18 /min Univ ersity of [facility] Body weight 2021-03-27 14:34:00 90.719 kg Universi ty [facility] BMI 2021-03-27 14:34:00 32.28 kg/m2 [facility] Oxygen saturation in 2021-03-27 14:34:00 98 /min University Arterial blood by [facility] Pulse oximetry Branch Systolic blood 2021-03-25 21:06:00 112 mm[Hg] Univer sity of pressure [facility] Diastolic blood 2021-03-25 21:06:00 65 mm[Hg] Unive rsity of pressure [facility] Heart rate 2021-03-25 21:06:00 106 /min [facility]i ty [facility] Body temperature 2021-03-25 21:06:00 37.17 Elida [facility] ers[facility] Respiratory rate 2021-03-25 21:06:00 16 /min Univ ersity [facility] Body height 2021-03-25 21:06:00 167.6 cm [facility] Body weight 2021-03-25 21:06:00 88.996 kg [facility] BMI 2021-03-25 21:06:00 31.67 kg/m2 [facility] Systolic blood 2021-03-25 21:06:00 112 mm[Hg] Univer sity of pressure [facility] Diastolic blood 2021-03-25 21:06:00 65 mm[Hg] Unive rsity of pressure [facility] Heart rate 2021-03-25 21:06:00 106 /min [facility]i ty [facility] Body temperature 2021-03-25 21:06:00 37.17 Elida [facility] Respiratory rate 2021-03-25 21:06:00 16 /min Univ ersity of [facility] Body height 2021-03-25 21:06:00 167.6 cm [facility] Body weight 2021-03-25 21:06:00 88.996 kg [facility] BMI 2021-03-25 21:06:00 31.67 kg/m2 [facility] Systolic blood 2021-03-16 04:35:00 113 mm[Hg] Univer sity of pressure [facility] Diastolic blood 2021-03-16 04:35:00 58 mm[Hg] Unive rsity of pressure [facility] Heart rate 2021-03-16 04:35:00 93 /min Universi ty [facility] Body temperature 2021-03-16 04:35:00 37.17 Elida Univ ers[facility] Respiratory rate 2021-03-16 04:35:00 16 /min Univ ersity of [facility] Oxygen saturation in 2021-03-16 04:35:00 98 /min [facility] of Arterial blood by [place] [facility] Body height 2021-03-16 03:51:00 167.6 cm Universi ty [facility] Body weight 2021-03-16 03:51:00 86.183 kg [facility] BMI 2021-03-16 03:51:00 30.67 kg/m2 [facility] Systolic blood 2021-03-16 04:35:00 113 mm[Hg] Univer sity of pressure [facility] Diastolic blood 2021-03-16 04:35:00 58 mm[Hg] Unive rsity of pressure [facility] Heart rate 2021-03-16 04:35:00 93 /min [facility]i [facility] Body temperature 2021-03-16 04:35:00 37.17 Elida Univ ers[facility] Respiratory rate 2021-03-16 04:35:00 16 /min Univ ersity of [facility] Oxygen saturation in 2021-03-16 04:35:00 98 /min [facility] of Arterial blood by [place] [facility] Body height 2021-03-16 03:51:00 167.6 cm [facility] Body weight 2021-03-16 03:51:00 86.183 kg [facility] BMI 2021-03-16 03:51:00 30.67 kg/m2 [facility] Systolic blood 2021-03-04 18:24:00 117 mm[Hg] Univer sity of pressure [facility] Diastolic blood 2021-03-04 18:24:00 73 mm[Hg] Unive rsity of pressure [facility] Heart rate 2021-03-04 18:24:00 99 /min [facility] Body temperature 2021-03-04 18:24:00 36.72 Elida Univ ersity of [facility] Respiratory rate 2021-03-04 18:24:00 16 /min Univ ersity [facility] Body height 2021-03-04 18:24:00 167.6 cm [facility] Body weight 2021-03-04 18:24:00 88.111 kg [facility] BMI 2021-03-04 18:24:00 31.35 kg/m2 [facility] Systolic blood 2021-03-04 18:24:00 117 mm[Hg] Univer sity of pressure [facility] Diastolic blood 2021-03-04 18:24:00 73 [...] 2021-03-04 18:24:00 31.35 kg/m2 [facility] Systolic blood 2021-02-18 18:54:00 118 mm[Hg] Univer sity of pressure [facility] Diastolic blood 2021-02-18 18:54:00 72 mm[Hg] Unive rsity of pressure [facility] Heart rate 2021-02-18 18:54:00 86 /min [facility]i ty [facility] Body temperature 2021-02-18 18:54:00 36.44 Elida [facility] Respiratory rate 2021-02-18 18:54:00 16 /min Univ ersity of [facility] Body height 2021-02-18 18:54:00 167.6 cm [facility] Body weight 2021-02-18 18:54:00 88.905 kg [facility] BMI 2021-02-18 18:54:00 31.64 kg/m2 [facility] Systolic blood 2021-02-18 18:54:00 118 mm[Hg] Univer sity of pressure [facility] Diastolic blood 2021-02-18 18:54:00 72 mm[Hg] Unive rsity of pressure [facility] Heart rate 2021-02-18 18:54:00 86 /min [facility] Body temperature 2021-02-18 18:54:00 36.44 Elida [facility] Respiratory rate 2021-02-18 18:54:00 16 /min Univ ersity [facility] Body height 2021-02-18 18:54:00 167.6 cm [facility] Body weight 2021-02-18 18:54:00 88.905 kg [facility] BMI 2021-02-18 18:54:00 31.64 kg/m2 [facility] Systolic blood 2021-02-11 18:38:00 105 mm[Hg] Univer sity of pressure [facility] Diastolic blood 2021-02-11 18:38:00 61 mm[Hg] Unive rsity of pressure [facility] Heart rate 2021-02-11 18:38:00 82 /min [facility] Body temperature 2021-02-11 18:38:00 36.67 Elida [facility] Respiratory rate 2021-02-11 18:38:00 16 /min Univ ersity of [facility] Body height 2021-02-11 18:38:00 167.6 cm [facility] Body weight 2021-02-11 18:38:00 89.903 kg [facility] BMI 2021-02-11 18:38:00 31.99 kg/m2 [facility] Systolic blood 2021-02-04 18:18:00 110 mm[Hg] Univer sity of pressure [facility] Diastolic blood 2021-02-04 18:18:00 61 mm[Hg] Unive rsity of pressure [facility] Heart rate 2021-02-04 18:18:00 85 /min [facility] ty [facility] Body temperature 2021-02-04 18:18:00 37.39 Elida [facility] Respiratory rate 2021-02-04 18:18:00 16 /min Univ ers[facility] Body height 2021-02-04 18:18:00 167.6 cm [facility] Body weight 2021-02-04 18:18:00 90.447 kg [facility] BMI 2021-02-04 18:18:00 32.18 kg/m2 [facility] Systolic blood 2021-01-28 18:26:00 115 mm[Hg] Univer sity of pressure [facility] Diastolic blood 2021-01-28 18:26:00 69 mm[Hg] Unive rsity of pressure [facility] Heart rate 2021-01-28 18:26:00 93 /min [facility] Body temperature 2021-01-28 18:26:00 36.56 Elida [facility] Respiratory rate 2021-01-28 18:26:00 16 /min Univ ersity of [facility] Body height 2021-01-28 18:26:00 167.6 [...] 2021-01-22 18:50:00 88.724 kg [facility] ty [facility] BMI 2021-01-22 18:50:00 31.57 kg/m2 [facility] Systolic blood 2021-01-15 18:58:00 108 mm[Hg] Univer sity of pressure [facility] Diastolic blood 2021-01-15 18:58:00 74 mm[Hg] Unive rsity of pressure [facility] Heart rate 2021-01-15 18:58:00 100 /min [facility]i ty [facility] Body temperature 2021-01-15 18:58:00 37.33 Elida [facility] Respiratory rate 2021-01-15 18:58:00 16 /min Univ ersity [facility] Body height 2021-01-15 18:58:00 167.6 cm [facility] Body weight 2021-01-15 18:58:00 89.177 kg [facility] BMI 2021-01-15 18:58:00 31.73 kg/m2 [facility] Systolic blood 2021-01-07 19:01:00 97 mm[Hg] Univer sity of pressure [facility] Diastolic blood 2021-01-07 19:01:00 67 mm[Hg] Unive rsity of pressure [facility] Heart rate 2021-01-07 19:01:00 83 /min [facility] ty [facility] Body temperature 2021-01-07 19:01:00 36.83 Elida [facility] Respiratory rate 2021-01-07 19:01:00 16 /min Univ ersity [facility] Body height 2021-01-07 19:01:00 167.6 cm [facility] Body weight 2021-01-07 19:01:00 87.771 kg [facility] BMI 2021-01-07 19:01:00 31.23 kg/m2 [facility] Systolic blood 2021-01-01 18:17:00 111 mm[Hg] Univer sity of pressure [facility] Diastolic blood 2021-01-01 18:17:00 55 mm[Hg] Unive rsity of pressure [facility] Heart rate 2021-01-01 18:17:00 103 /min [facility] ty [facility] Body temperature 2021-01-01 18:17:00 36.67 Elida [facility] Respiratory rate 2021-01-01 18:17:00 24 /min Univ ersity [facility] Body height 2021-01-01 18:17:00 167.6 cm [facility] Body weight 2021-01-01 18:17:00 88.225 kg [facility] BMI 2021-01-01 18:17:00 31.39 kg/m2 [facility] Systolic blood 2020-12-24 19:41:00 124 mm[Hg] Univer sity of pressure [facility] Diastolic blood 2020-12-24 19:41:00 77 mm[Hg] Unive rsity of pressure [facility] Heart rate 2020-12-24 19:41:00 93 /min [facility] ty [facility] Body temperature 2020-12-24 19:41:00 36.67 Elida [facility] Respiratory rate 2020-12-24 19:41:00 16 /min Univ ersity [facility] Body height 2020-12-24 19:41:00 167.6 cm [facility] Body weight 2020-12-24 19:41:00 89.268 kg [facility] BMI 2020-12-24 19:41:00 31.76 kg/m2 [facility] Systolic blood 2020-12-19 00:29:00 105 mm[Hg] Univer sity of pressure [facility] Diastolic blood 2020-12-19 00:29:00 42 mm[Hg] Unive rsity of pressure [facility] Heart rate 2020-12-19 00:29:00 65 /min Universi ty [facility] Body temperature 2020-12-19 00:29:00 36.67 Elida [facility] Respiratory rate 2020-12-19 00:29:00 18 /min Univ ersity [facility] Body height 2020-12-19 00:29:00 167.6 cm [facility] Body weight 2020-12-19 00:29:00 88.905 kg [facility] BMI 2020-12-19 00:29:00 31.64 kg/m2 [facility] Systolic blood 2020-12-17 19:38:00 119 mm[Hg] Univer sity of pressure [facility] Diastolic blood 2020-12-17 19:38:00 64 mm[Hg] Unive rsity of pressure [facility] Heart rate 2020-12-17 19:38:00 79 /min [facility] Body temperature 2020-12-17 19:38:00 36.56 Elida [facility] Respiratory rate 2020-12-17 19:38:00 16 /min Univ ersity [facility] Body height 2020-12-17 19:38:00 167.6 cm [facility] Body weight 2020-12-17 19:38:00 89.449 kg [facility] BMI 2020-12-17 19:38:00 31.83 kg/m2 [facility] Systolic blood 2020-12-10 18:51:00 107 mm[Hg] Univer sity of pressure [facility] Diastolic blood 2020-12-10 18:51:00 63 mm[Hg] Unive rsity of pressure [facility] Heart rate 2020-12-10 18:51:00 62 /min [facility] Body temperature 2020-12-10 18:51:00 36.78 Elida [facility] Respiratory rate 2020-12-10 18:51:00 16 /min Univ ers[facility] Body height 2020-12-10 18:51:00 167.6 cm [facility] Body weight 2020-12-10 18:51:00 87.232 kg [facility] BMI 2020-12-10 18:51:00 31.04 kg/m2 [facility] Systolic blood 2020-12-03 16:08:00 108 mm[Hg] Univer sity of [facility] Diastolic blood 2020-12-03 16:08:00 63 [...] 2020-11-19 18:45:00 16 /min [facility] Body height 2020-11-19 18:45:00 167.6 cm [facility] Body weight 2020-11-19 18:45:00 88.14 kg [facility] BMI 2020-11-19 18:45:00 31.36 kg/m2 [facility] Systolic blood 2020-11-12 18:58:00 118 mm[Hg] Univer sity of [facility] Diastolic blood 2020-11-12 18:58:00 67 mm[Hg] Unive rsity of [facility] Heart rate 2020-11-12 18:58:00 85 /min [facility] Body temperature 2020-11-12 18:58:00 36.72 Elida [facility] Respiratory rate 2020-11-12 18:58:00 16 /min [facility] Body height 2020-11-12 18:58:00 167.6 cm [facility] Body weight 2020-11-12 18:58:00 88.622 kg [facility] BMI 2020-11-12 18:58:00 31.53 kg/m2 [facility] Systolic blood 2020-10-15 20:07:00 109 mm[Hg] Univer [facility]ity [facility] Diastolic blood 2020-10-15 20:07:00 70 mm[Hg] Unive rsity of [facility] Heart rate 2020-10-15 20:07:00 74 /min [facility] Body temperature 2020-10-15 20:07:00 36.72 Elida [facility] Respiratory rate 2020-10-15 20:07:00 16 /min [facility] Body height 2020-10-15 20:07:00 167.6 cm [facility] Body weight 2020-10-15 20:07:00 84.823 kg [facility] BMI 2020-10-15 20:07:00 30.18 kg/m2 [facility] Systolic blood 2020-09-17 21:57:00 103 mm[Hg] Univer [facility]ity of [facility] Diastolic blood 2020-09-17 21:57:00 62 mm[Hg] Unive rsity of [facility] Heart rate 2020-09-17 21:57:00 73 /min [facility] Body temperature 2020-09-17 21:57:00 37.11 Elida [facility] Respiratory rate 2020-09-17 21:57:00 16 /min [facility] Body height 2020-09-17 21:57:00 167.6 cm [facility] Body weight 2020-09-17 21:57:00 85.531 kg [facility] BMI 2020-09-17 21:57:00 30.43 kg/m2 [facility] Systolic blood 2020-08-20 19:03:00 119 mm[Hg] Univer [facility]ity of [facility] Diastolic blood 2020-08-20 19:03:00 82 mm[Hg] [facility]ity [facility] Heart rate 2020-08-20 19:03:00 79 /min [facility] Body temperature 2020-08-20 19:03:00 36.72 Elida [facility] Respiratory rate 2020-08-20 19:03:00 16 /min [facility] Body height 2020-08-20 19:03:00 167.6 cm [facility] Body weight 2020-08-20 19:03:00 87.204 kg [facility] BMI 2020-08-20 19:03:00 31.03 kg/m2 [facility] Systolic blood 2020-06-04 20:48:00 124 mm[Hg] Univer [facility]ity of [facility] Diastolic blood 2020-06-04 20:48:00 62 mm[Hg] Unive rsity of [facility] Heart rate 2020-06-04 20:48:00 90 /min [facility] Body temperature 2020-06-04 20:48:00 36.17 Leida [facility] Respiratory rate 2020-06-04 20:48:00 16 /min [facility] Body height 2020-06-04 20:48:00 167.6 cm [facility] Body weight 2020-06-04 20:48:00 85.276 kg [facility] BMI 2020-06-04 20:48:00 30.34 kg/m2 [facility] Systolic blood 2020-04-01 21:05:00 130 mm[Hg] [facility]ity of [facility] Diastolic blood 2020-04-01 21:05:00 74 mm[Hg] Unive rsity of [facility] Heart rate 2020-04-01 21:05:00 95 /min [facility] Body temperature 2020-04-01 21:05:00 37.5 Elida [facility] Respiratory rate 2020-04-01 21:05:00 16 /min [facility] Body height 2020-04-01 21:05:00 167.6 cm [facility] Body weight 2020-04-01 21:05:00 86.75 kg [facility] BMI 2020-04-01 21:05:00 30.87 kg/m2 [facility] Systolic blood 2020-03-22 05:00:00 105 mm[Hg] [facility]ity of [facility] Diastolic blood 2020-03-22 05:00:00 72 mm[Hg] Unive rsity of [facility] Heart rate 2020-03-22 05:00:00 67 /min [facility] Respiratory rate 2020-03-22 05:00:00 18 /min [facility] Oxygen saturation in 2020-03-22 04:00:00 99 /min [facility] of Arterial blood by [facility] Pulse oximetry Branch Body temperature 2020-03-22 03:49:00 37 Elida [facility] Body height 2020-03-22 03:49:00 167.6 cm [facility] Body weight 2020-03-22 03:49:00 86.183 kg [facility] BMI 2020-03-22 03:49:00 30.67 kg/m2 [facility] Systolic blood 2020-02-26 23:57:00 110 mm[Hg] Univer [facility]ity of [facility] Diastolic blood 2020-02-26 23:57:00 78 mm[Hg] Unive rsity of [facility] Heart rate 2020-02-26 23:57:00 87 /min [facility] Respiratory rate 2020-02-26 23:57:00 18 /min [facility] Oxygen saturation in 2020-02-26 23:57:00 100 /min [facility] Arterial blood by [facility] Pulse oximetry [place] Body temperature 2020-02-26 21:35:00 37 Elida [facility] Body weight 2020-02-26 21:35:00 86.183 kg [facility] Systolic blood 2019-10-05 21:05:00 129 mm[Hg] Univer sity of pressure [facility] Diastolic blood 2019-10-05 21:05:00 57 mm[Hg] Unive rsity of pressure [facility] Heart rate 2019-10-05 21:05:00 100 /min [facility] Body temperature 2019-10-05 21:05:00 36.56 Elida [facility] Respiratory rate 2019-10-05 21:05:00 16 /min [facility] Body height 2019-10-05 21:05:00 167.6 cm [facility] Body weight 2019-10-05 21:05:00 86.694 kg [facility] [place] BMI 2019-10-05 21:05:00 30.85 kg/m2 [facility] Systolic blood 2019-09-20 20:30:00 118 mm[Hg] Univer sity of pressure [facility] Diastolic blood 2019-09-20 20:30:00 65 mm[Hg] Unive rsity of pressure [facility] Heart rate 2019-09-20 20:30:00 87 /min [facility] Body temperature 2019-09-20 20:30:00 36.28 Elida [facility] Respiratory rate 2019-09-20 20:30:00 18 /min [facility] Body height 2019-09-20 20:30:00 167.6 cm [facility] Body weight 2019-09-20 20:30:00 87.176 kg [facility] [place] BMI 2019-09-20 20:30:00 31.02 kg/m2 [facility] Systolic blood 2019-09-18 20:23:00 123 mm[Hg] [facility] Diastolic blood 2019-09-18 20:23:00 61 mm[Hg] [facility]ity of [facility] Heart rate 2019-09-18 20:23:00 73 /min [facility] Body temperature 2019-09-18 20:23:00 36.61 Elida [facility] Respiratory rate 2019-09-18 20:23:00 16 /min [facility] Body height 2019-09-18 20:23:00 167.6 cm [facility] Body weight 2019-09-18 20:23:00 86.24 kg [facility] BMI 2019-09-18 20:23:00 30.69 kg/m2 [facility] Systolic blood 2019-04-24 15:56:00 99 mm[Hg] [facility] Diastolic blood 2019-04-24 15:56:00 61 mm[Hg] [facility]ity of [facility] Heart rate 2019-04-24 15:56:00 70 /min [facility] Body temperature 2019-04-24 15:56:00 36.72 Elida [facility] Respiratory rate 2019-04-24 15:56:00 16 [...] 2019-04-17 18:14:00 16 /min [facility] Body height 2019-04-17 18:14:00 167.6 cm [facility] Body weight 2019-04-17 18:14:00 83.632 kg [facility] BMI 2019-04-17 18:14:00 29.76 kg/m2 [facility] Heart rate 2019-04-19 01:15:00 92 /min [facility] Oxygen saturation in 2019-04-19 01:15:00 99 /min [facility] Arterial blood by [facility] Pulse oximetry Branch Systolic blood 2019-04-19 00:43:00 112 mm[Hg] Univer sity of [facility] Diastolic blood 2019-04-19 00:43:00 66 mm[Hg] Unive rsity of [facility] Body temperature 2019-04-19 00:43:00 36.94 Elida [facility] Respiratory rate 2019-04-19 00:43:00 18 /min [facility] Body height 2019-04-19 00:43:00 167.6 cm [facility] Body weight 2019-04-19 00:43:00 83.462 kg [facility] BMI 2019-04-19 00:43:00 29.70 kg/m2 [facility] Systolic blood 2019-04-14 06:50:00 116 mm[Hg] Univer [facility]ity of [facility] Diastolic blood 2019-04-14 06:50:00 65 mm[Hg] Unive rsity of [facility] Heart rate 2019-04-14 06:50:00 90 /min [facility] Body temperature 2019-04-14 06:50:00 36.61 Elida [facility] Respiratory rate 2019-04-14 06:50:00 18 /min [facility] Body height 2019-04-14 06:50:00 167.6 cm [facility] Body weight 2019-04-14 06:50:00 83.008 kg [facility] BMI 2019-04-14 06:50:00 29.54 kg/m2 [facility] Oxygen saturation in 2019-04-14 06:50:00 100 /min [facility] Arterial blood by [facility] Pulse oximetry Branch Systolic blood 2019-04-10 19:21:00 114 mm[Hg] Univer sity of [facility] Diastolic blood 2019-04-10 19:21:00 57 mm[Hg] Unive rsity of [facility] Heart rate 2019-04-10 19:21:00 93 /min [facility] Body temperature 2019-04-10 19:21:00 36.78 Elida [facility] Respiratory rate 2019-04-10 19:21:00 16 /min [facility] Body height 2019-04-10 19:21:00 167.6 cm [facility] Body weight 2019-04-10 19:21:00 83.178 kg [facility] BMI 2019-04-10 19:21:00 29.60 kg/m2 [facility] Systolic blood 2019-04-03 16:55:00 117 mm[Hg] Univer [facility]ity of [facility] Diastolic blood 2019-04-03 16:55:00 65 mm[Hg] Unive rsity of [facility] Heart rate 2019-04-03 16:55:00 79 /min [facility] Body temperature 2019-04-03 16:55:00 36.56 Elida [facility] Respiratory rate 2019-04-03 16:55:00 16 /min [facility] Body height 2019-04-03 16:55:00 167.6 cm [facility] Body weight 2019-04-03 16:55:00 83.178 kg [facility] BMI 2019-04-03 16:55:00 29.60 kg/m2 [facility] Systolic blood 2019-03-29 18:46:00 131 mm[Hg] Univer [facility]ity of [facility] Diastolic blood 2019-03-29 18:46:00 77 mm[Hg] Unive rsity of [facility] Heart rate 2019-03-29 18:46:00 94 /min [facility] Body temperature 2019-03-29 18:46:00 37.11 Elida [facility] Respiratory rate 2019-03-29 18:46:00 16 /min [facility] Body height 2019-03-29 18:46:00 167.6 [...] 2019-03-27 15:18:00 16 /min [facility] Body height 2019-03-27 15:18:00 167.6 cm [facility] Body weight 2019-03-27 15:18:00 83.122 kg [facility] BMI 2019-03-27 15:18:00 29.58 kg/m2 [facility] Systolic blood 2019-03-20 15:42:00 116 mm[Hg] [facility]iver [facility]ity [facility] Diastolic blood 2019-03-20 15:42:00 55 mm[Hg] Unive rsity of [facility] Heart rate 2019-03-20 15:42:00 76 /min [facility] Body temperature 2019-03-20 15:42:00 36.11 Elida [facility] Respiratory rate 2019-03-20 15:42:00 16 /min [facility] Body height 2019-03-20 15:42:00 167.6 [...] 2019-03-20 15:12:00 36.11 Elida [facility] Respiratory rate 2019-03-20 15:12:00 16 /min [facility] Body height 2019-03-20 15:12:00 167.6 cm [facility] Body weight 2019-03-20 15:12:00 83.235 kg [facility] BMI 2019-03-20 15:12:00 29.62 kg/m2 [facility] Systolic blood 2019-03-15 14:57:00 112 mm[Hg] [facility]iver [facility]ity [facility] Diastolic blood 2019-03-15 14:57:00 59 mm[Hg] Unive rsity of [facility] Heart rate 2019-03-15 14:57:00 66 /min [facility] Body temperature 2019-03-15 14:57:00 36.39 Elida [facility] Respiratory rate 2019-03-15 14:57:00 18 /min [facility] Body height 2019-03-15 14:57:00 167.6 cm [facility] Body weight 2019-03-15 14:57:00 84.482 kg [facility] BMI 2019-03-15 14:57:00 30.06 kg/m2 [facility] Systolic blood 2019-03-13 14:51:00 122 mm[Hg] [facility]iver [facility]ity [facility] Diastolic blood 2019-03-13 14:51:00 65 mm[Hg] Unive rsity of [facility] Heart rate 2019-03-13 14:51:00 90 /min [facility] Body temperature 2019-03-13 14:51:00 36.39 Elida [facility] Respiratory rate 2019-03-13 14:51:00 16 /min [facility] Body height 2019-03-13 14:51:00 167.6 cm [facility] Body weight 2019-03-13 14:51:00 83.519 kg [facility] BMI 2019-03-13 14:51:00 29.72 kg/m2 [facility] Systolic blood 2019-03-06 14:12:00 112 mm[Hg] [facility]iver [facility]ity of [facility] Diastolic blood 2019-03-06 14:12:00 52 mm[Hg] Unive rsity of pressure [facility] Heart rate 2019-03-06 14:12:00 83 /min [facility] [place] Body temperature 2019-03-06 14:12:00 36.72 Elida [facility] Respiratory rate 2019-03-06 14:12:00 16 /min [facility] Body height 2019-03-06 14:12:00 167.6 cm [facility] [place] Body weight 2019-03-06 14:12:00 83.632 kg [facility] BMI 2019-03-06 14:12:00 29.76 kg/m2 [facility] Systolic blood 2019-02-20 15:54:00 117 mm[Hg] [facility]iver [facility]ity of [facility] [place] Diastolic blood 2019-02-20 15:54:00 76 mm[Hg] Unive rsity of [facility] Heart rate 2019-02-20 15:54:00 83 /min [facility] Body temperature 2019-02-20 15:54:00 36.39 Elida [facility] ersity of [facility] Respiratory rate 2019-02-20 15:54:00 16 /min Univ [facility] Body height 2019-02-20 15:54:00 167.6 cm [facility] [place] Body weight 2019-02-20 15:54:00 81.364 kg [facility] [place] BMI 2019-02-20 15:54:00 28.95 kg/m2 [facility] Procedures Procedure Date / Time Performing Clinician Source Performed POCT TEST 2022-04-02 19:44:00 Molina Pavon [facility] ASSIGNMENT OF BENEFITS 2022-04-02 19:12:09 [facility] [place] CONSENT/REFUSAL FOR 2021-03-27 14:24:33 Doctor Unassigned, [facility] DIAGNOSIS AND TREATMENT [facility] WOUND CULTURE 2021-03-25 22:12:00 Marilu Doran [facility] CBC WITH DIFF 2021-03-25 21:07:00 Marilu Doran [facility] GROUP B STREPTOCOCCUS BY 2021-03-25 21:07:00 Marilu Doran [facility] PCR [facility] SARS-COV-2 IGG 2021-03-25 21:07:00 Marilu Doran [facility] LAB ONLY COVID 2021-03-25 21:07:00 Marilu Doran [facility] INTERPRETATION [facility] NOTICE OF PRIVACY 2021-03-16 02:55:00 Doctor Unassigned, [facility]ACT[facility] CONSENT/REFUSAL FOR 2021-03-16 02:54:44 Doctor Unassigned, [facility] DIAGNOSIS AND TREATMENT [facility] POCT URINALYSIS 2021-03-04 18:26:00 Molina Pavon [facility] POCT URINALYSIS 2021-02-18 18:55:00 Molina Pavon [facility] POCT URINALYSIS 2021-02-04 18:19:00 Molina Pavon [facility] HB ABO GROUPING 2021-01-28 18:45:00 Molina Pavon [facility] TDAP VACCINE, >11 YRS, IM 2021-01-28 18:41:00 Molina Pavon [facility] POCT URINALYSIS 2021-01-28 18:28:00 Molina Pavon [facility] HIV 1/2 AG-AB WITH REFLEX 2021-01-28 18:21:00 Molina Pavon [facility] GALV ONLY - SYPHILIS 2021-01-28 18:21:00 [facility] GLUCOSE 1 HOUR POST 2021-01-15 20:04:00 Molina Pavon Uni [facility] CBC WITH DIFF 2021-01-15 20:04:00 Molina Pavon [facility] POCT URINALYSIS 2021-01-07 19:04:00 Molina Pavon [facility] CONSENT/REFUSAL FOR 2020-12-18 23:48:00 Doctor Unassigned, [facility] DIAGNOSIS AND TREATMENT [facility] POCT URINALYSIS 2020-12-10 19:37:00 Molina Pavon [facility] POCT URINALYSIS 2020-11-12 18:59:00 Molina Pavon [facility] POCT URINALYSIS 2020-10-15 20:09:00 Molina Pavon [facility] MEDICATION CORRESPONDENCE 2020-10-09 06:01:00 Doctor Unassigned, [facility] EXTERNAL PROVIDER RECORDS 2020-09-29 06:01:00 Doctor Unassigned, [facility] POCT URINALYSIS 2020-09-17 22:04:00 Molina Pavon [facility] GC & CHLAMYDIA AMPLIFIED 2020-08-20 20:23:00 Molina Pavon [facility] ASSAY [facility] GLUCOSE 1 HOUR POST 2020-08-20 20:06:00 Molina Pavon [facility] CBC WITH DIFF 2020-08-20 20:06:00 Molina Pavon [facility] RUBELLA SCREEN IGG 2020-08-20 20:06:00 Molina Pavon [facility] VZV ANTIBODY SCREEN 2020-08-20 20:06:00 Molina Pavon [facility] HEPATITIS B SURFACE 2020-08-20 20:06:00 Molina Pavon [facility] HB ABO GROUPING 2020-08-20 20:06:00 Molina Pavon [facility] HIV 1/2 AG-AB WITH REFLEX 2020-08-20 20:06:00 Molina Pavon [facility] GALV ONLY - SYPHILIS 2020-08-20 20:06:00 [facility] SARS-COV-2 IGG 2020-08-20 20:06:00 Molina Pavon [facility] LAB ONLY COVID 2020-08-20 20:06:00 Molina Pavon [facility] INTERPRETATION [facility] POCT TEST 2020-08-20 18:57:00 Molina Pavon [facility] POCT URINALYSIS W/O 2020-08-20 18:57:00 Molina Pavon [facility] SPECIFIC GRAVITY [facility] FLU VACC ([id number]), 6+ 2020-06-04 20:53:58 Molina Pavon [facility] MONTHS, IM, QUAD [facility] [place] POCT TEST 2020-03-22 04:03:00 Lenin Samaniego [facility] COMP. METABOLIC PANEL 2020-03-22 04:02:00 Lenin Samaniego [facility] ([id number]) [facility] [place] CBC WITH DIFF 2020-03-22 04:02:00 Aden Lenin [facility] URINALYSIS 2020-03-22 04:02:00 Aden Lenin [facility] CONSENT/REFUSAL FOR 2020-03-22 03:39:54 Doctor Unassigned, [facility] DIAGNOSIS AND TREATMENT [facility] PELVIS COMPLETE WITH 2020-02-26 22:53:36 Evangelist Bonner [facility] TRANSVAGINAL Medical [facility] COMP. METABOLIC PANEL 2020-02-26 22:12:00 Evangelist Bonner [facility] ([id number]) [facility] [place] CBC WITH DIFF 2020-02-26 22:12:00 Evangelist Bonner [facility] URINALYSIS 2020-02-26 22:12:00 Evangelist Bonner [facility] POCT TEST 2020-02-26 22:12:00 Evangelist Bonner [facility] ASSIGNMENT OF BENEFITS 2020-02-26 21:29:30 Doctor Unassigned, [facility] POCT TEST 2019-10-05 21:24:00 Molina Pavon [facility] DISCLOSURE AND CONSENT, 2019-10-05 06:01:00 Doctor Unassigned, [facility] SURGICAL [facility] PROCEDURES POCT TEST 2019-09-20 20:34:00 Molina Pavon [facility] GARDASIL 9 (HPV 9V) 2019-09-18 21:05:38 Molina Pavon [facility] VACCINE [facility] ASSIGNMENT OF BENEFITS 2019-04-19 00:26:57 Doctor Unassigned, Un [facility] NOTICE OF PRIVACY 2019-04-19 00:26:18 Doctor Unassnora, [facility] CONSENT/REFUSAL FOR 2019-04-19 00:25:59 Doctor Maritza, [facility] DIAGNOSIS AND TREATMENT [facility] URINE CULTURE 2019-04-17 18:50:00 Molina Pavon [facility] ANTI-D R/O PANEL 2019-04-17 18:46:00 Molina Pavon [facility] WORKUP, BLOOD 2019-04-17 18:46:00 Molina Pavon [facility] POCT URINALYSIS 2019-04-17 18:15:00 Molina Pavon [facility] ASSIGNMENT OF BENEFITS 2019-04-14 06:35:28 Doctor Unassigned, Un [facility] NOTICE OF PRIVACY 2019-04-14 06:34:52 Doctor Maritza, [facility] GALV ONLY - SYPHILIS 2019-03-29 20:14:00 Marilu Doran [facility] IGG/IGM [facility] HIV 1/2 AG-AB WITH REFLEX 2019-03-29 19:53:00 Marilu Doran [facility] TDAP VACCINE, >11 YRS, IM 2019-03-29 19:23:41 Marilu Doran [facility] POCT URINALYSIS 2019-03-29 18:46:00 Molina Pavon [facility] POCT URINALYSIS 2019-03-15 14:59:00 Molina Pavon [facility] Encounters Start End Encounter Admission Attending Care Care Encounter Source Date/Time Date/Time Type Type Clinicians Facility Department ID 2021-06-08 Emergency [facility] [id number] Univers 16:54:59 ity [facility] 2021-06-08 Emergency [facility] [id number] Univers 13:57:39 ity [facility] 2021-06-07 Outpatient P [facility] ALONSO [id number] Univers 19:02:11 ity [facility] 2021-06-07 Outpatient P [facility] [id number] Univers 19:01:53 ity of [facility] 2021-06-05 Emergency [facility] [id number] Univers 12:38:55 ity of [facility] 2021-06-05 Emergency [facility] [id number] Univers 08:01:28 ity [facility] 2022-04-08 2022-04-08 Outpatient R [facility] [id number] Univers 13:45:00 13:45:00 ity [facility] 2022-04-02 2022-04-02 Nurse Visit, [facility] Nurse [facility] [id number] Univers 13:30:00 13:45:00 Visit Molina Pavon [employer] OFFICER [id number] Man as MATERNAL [id number] Med ical & CHILD [address] [place] [address] 2022-04-02 2022-04-02 Outpatient R LIBRADO [facility] [id number] Univers 13:30:00 13:30:00 MOLINA caraballo o f [facility] 2022-04-02 2022-04-02 Orders Doctor LUISA [id number] Univers 00:00:00 00:00:00 Only Unassigned, JANNA [id number] ity [facility] 4.2.7.2.686 Man as [id number] [address] 2021-05-28 2021-05-28 Outpatient R [facility] [id number] Univers 13:45:00 13:45:00 ity of [facility] 2021-05-19 2021-05-19 [facility] [id number] Univers 09:15:00 09:15:00 AMANDA juan ramonreid [facility] 2021-04-14 2021-04-14 Telephone Gonzalez MORAN 1.2.840.114 [id number] Univers 00:00:00 00:00:00 JANNA leyva 350.1.13.10 it y [facility] 4.2.7.2.686 [facility] [phone] [facility] [address] 2021-04-07 2021-04-09 Inpatient P [facility] ALONSO [id number] Univers 21:59:00 13:51:00 HERON ilya [facility] 2021-04-07 2021-04-09 Hospital LUISA [place] 1.2.840.114 [id number] Univers 21:59:00 13:51:00 Encounter Heron Saba JANNA 350.1.13.10 ity [facility] 4.2.7.2.686 Man as [phone] [facility] [address] 2021-04-09 2021-04-09 Outpatient [facility] [id number] Univers 13:00:00 13:00:00 MOLINA saba [facility] 2021-04-07 2021-04-08 Anesthesia Wyatt Cool 1.2.840 .114 [id number] Univers 22:51:00 06:50:00 Event Alessandro Kruse [facility] .[facility]13.10 [facility] 4.2.7.2.686 Man as [id number] [facility] [address] 2021-04-01 2021-04-01 Outpatient R [facility] [id number] Univers 08:45:00 08:45:00 MOLINA saba [facility] 2021-03-29 2021-03-29 [facility] 1.2.840.114 [id number] Univers 00:00:00 00:00:00 Molina Kearney GLOBAL CHIEF EXPERIENCE OFFICER 350.1.13.10 ity [facility] 4.2.7.2.686 Man as MATERNAL [phone] Med ical & CHILD [facility] 2021-03-27 2021-03-27 Emergency , [facility] 1.2.262.816 [id number] 09:34:00 10:19:00 Miah Vasquez 350.1.13.10 [place] 4.2.7.2.686 [place] [id number] [facility] 2021-03-27 2021-03-27 Emergency John, [facility] 1.2.047.259 [id number] Univers 09:34:00 10:19:00 Miah Vasquez 350.1.13.10 i ty of [place].2.7.2.[place] [phone] [facility] [address] 2021-03-27 2021-03-27 Orders Doctor LUISA 1.2.840.114 [id number] 00:00:00 00:00:00 Only Unassigned, JANNA 350.1.13.10 [place]inger [facility] 4.2.7.2.686 [id number] 009 2021-03-27 2021-03-27 Orders Doctor LUISA 1.2.840.114 [id number] Univers 00:00:00 00:00:00 Only Unassigned, JANNA 350.1.13.10 ity of [place] [facility] 4.2.7.2.686 Man as [phone] [address] 2021-03-25 2021-03-25 Routine Risk, Tqw-Tnmdl-Ln/High [facility] 1. 2.840.114 [id number] Univers 15:32:35 16:37:00 Marilu Doran GLOBAL CHIEF EXPERIENCE OFFICER 350.1.13.10 ity of Visit REGIONAL 4.2.7.2.686 Man as MATERNAL [phone] Med ical & CHILD 107 [facility] 2021-03-25 2021-03-25 Routine Risk, Kai-Fxpre-Mi/High [facility] 1. 2.840.114 [id number] Univers 15:32:35 16:37:00 Marilu Doran GLOBAL CHIEF EXPERIENCE OFFICER 350.1.13.10 ity of Visit REGIONAL 4.2.7.2.686 Man as MATERNAL [phone] Med ical & CHILD [address] [place] [address] 2021-03-25 2021-03-25 Outpatient R [facility] [id number] Univers 15:30:00 15:30:00 ity [facility] 2021-03-18 2021-03-18 Outpatient R [facility] [id number] Univers 13:30:00 13:30:00 MOLINA ity o f [facility] 2021-03-15 2021-03-16 Emergency [facility] 1.2.840.114 [id number] 22:55:00 00:07:00 Folusho Jayant [place] 350.1.13.10 [place] 4.2.7.2.686 [place] [phone] [facility] 2021-03-15 2021-03-16 [facility] 1.2.840.114 [id number] Univers 22:55:00 00:07:00 Cholo Jayant [place] 350.1.13.10 ity [facility] 4.2.7.2.686 [facility] [id number] [address] 2021-03-11 2021-03-11 Outpatient R [facility] [id number] Univers 13:30:00 13:30:00 ity [facility] 2021-03-04 2021-03-04 Routine Akinsipe, [facility] 1.2.315.337 [id number] Univers 13:16:42 13:49:49 Molina C GLOBAL CHIEF EXPERIENCE OFFICER 350.1.13.10 ity of Visit REGIONAL 4.2.7.2.686 Man as MATERNAL [id number] [facility] ical & CHILD [address] [place] [address] 2021-03-04 2021-03-04 Routine Akinsipe, [facility] 1.2.731.307 [id number] 13:16:42 13:49:49 Molina C GLOBAL CHIEF EXPERIENCE OFFICER 350.1.13.10 Visit REGIONAL 4.2.7.2.686 MATERNAL [id number] & CHILD [address] [place] [address] 2021-03-04 2021-03-04 Outpatient R [facility] [id number] Univers 13:15:00 13:15:00 MOLINA ity o f [facility] 2021-03-02 2021-03-02 Outpatient R [facility] [id number] Univers 14:30:00 14:30:00 ity [facility] 2021-02-25 2021-02-25 Outpatient R [facility] [id number] Univers 12:45:00 12:45:00 ity [facility] 2021-02-18 2021-02-18 Routine Akinsipe, [facility] 1.2.323.078 [id number] Univers 13:28:35 14:29:08 Molina C GLOBAL CHIEF EXPERIENCE OFFICER 350.1.13.10 ity of Visit REGIONAL 4.2.7.2.686 Man as MATERNAL [phone] Med ical & CHILD [address] [place] [address] 2021-02-18 2021-02-18 Routine Akinsipe, [facility] 1.2.829.279 [id number] 13:28:35 14:29:08 Molina C GLOBAL CHIEF EXPERIENCE OFFICER 350.1.13.10 Visit REGIONAL 4.2.7.2.686 MATERNAL [id number] & CHILD [address] [place] [address] 2021-02-18 2021-02-18 Outpatient R LIBRADO, [facility] [id number] Univers 13:15:00 13:15:[address] [facility] 2021-02-11 2021-02-11 Outpatient R LIBRADO, [facility] [id number] Univers 15:45:00 15:45:[address] [facility] 2021-02-11 2021-02-11 Nurse Visit, Ang-Rmchp Nurse [facility] 1.2 .840.114 [id number] Univers 13:10:22 13:25:22 Visit Pamelaanazoraida Molina Kearney GLOBAL CHIEF EXPERIENCE OFFICER 350.1.13. 10 ity of REGIONAL 4.2.7.2.686 Man as MATERNAL [id number] [facility] & CHILD [address] [place] [address] 2021-02-11 2021-02-11 Outpatient R [facility] [id number] Univers 08:30:00 08:30:00 ity [facility] 2021-02-04 2021-02-04 Routine Akinsipe, [facility] 1.2.672.227 [id number] Univers 12:50:04 13:47:28 Molina C GLOBAL CHIEF EXPERIENCE OFFICER 350.1.13.10 ity of Visit REGIONAL 4.2.7.2.686 Man as MATERNAL [id number] [facility] & CHILD [address] [place] [address] 2021-02-04 2021-02-04 Outpatient R [facility] [id number] Univers 12:45:00 12:45:00 ity of [facility] 2021-01-28 2021-01-28 Routine Akinsipe, [facility] 1.2.392.988 [id number] Univers 13:07:23 14:00:04 Molina C GLOBAL CHIEF EXPERIENCE OFFICER 350.1.13.10 ity of Visit REGIONAL 4.2.7.2.686 Man as MATERNAL [phone] [facility] & CHILD [address] [place] [address] 2021-01-28 2021-01-28 Outpatient [facility] [id number] Univers 13:00:00 13:00:00 MOLINA ity o f [facility] 2021-01-22 2021-01-22 Nurse Visit, [facility]-Rm[facility] Nurse [facility] 1.2 .840.114 [id number] Univers 13:32:06 13:56:46 Visit Molina Pavon GLOBAL CHIEF EXPERIENCE OFFICER 350.1.13. 10 ity of REGIONAL 4.2.7.2.686 Man as MATERNAL [id number] [facility] & CHILD [address] [place] [address] 2021-01-22 2021-01-22 Outpatient R [facility] [id number] Univers 13:30:00 13:30:00 ity of [facility] 2021-01-16 2021-01-16 Tele[facility] 1.2.840.114 [id number] Univers 00:00:00 00:00:00 Molina C GLOBAL CHIEF EXPERIENCE OFFICER 350.1.13.10 ity of REGIONAL 4.2.7.2.686 Man as MATERNAL [id number] [facility] & CHILD [address] [place] [address] 2021-01-15 2021-01-15 Nurse Visit, Arvind Nurse [facility] 1.2 .840.114 [id number] Univers 13:44:54 14:08:48 Visit Molina Pavon GLOBAL CHIEF EXPERIENCE OFFICER 350.1.13. 10 ity of REGIONAL 4.2.7.2.686 Man as MATERNAL [id number] [facility] & CHILD [address] [place] [address] 2021-01-15 2021-01-15 Outpatient R LIBRADO [facility] [id number] Univers 13:30:00 13:30:00 MOLINA caraballo o f [facility] 2021-01-14 2021-01-14 Outpatient R [facility] [id number] Univers 09:00:00 09:00:00 ity of [facility] 2021-01-14 2021-01-14 Telephone Librado [facility] 1.2.840.114 [id number] Univers 00:00:00 00:00:00 Molina Kearney GLOBAL CHIEF EXPERIENCE OFFICER 350.1.13.10 ity of REGIONAL 4.2.7.2.686 Man as MATERNAL [id number] [facility] & CHILD [address] [place] [address] 2021-01-07 2021-01-07 Routine Librado [facility] 1.2.263.102 [id number] Univers 13:50:51 14:21:33 Molina Kearney GLOBAL CHIEF EXPERIENCE OFFICER 350.1.13.10 ity of Visit REGIONAL 4.2.7.2.686 Man as MATERNAL [phone] [facility] & CHILD [address] [place] [address] 2021-01-07 2021-01-07 Outpatient R LIBRADO [facility] [id number] Univers 14:00:00 14:00:00 MOLINA caraballo o f [facility] 2021-01-01 2021-01-01 Nurse Visit, Arvind Nurse [facility] 1.2 .840.114 [id number] Univers 13:08:36 13:37:19 Visit Molina Pavon GLOBAL CHIEF EXPERIENCE OFFICER 350.1.13. 10 ity of REGIONAL 4.2.7.2.686 Man as MATERNAL [id number] [facility] & CHILD [address] [place] [address] 2021-01-01 2021-01-01 Outpatient R [facility] [id number] Univers 13:30:00 13:30:00 ity of [facility] 2020-12-31 2020-12-31 Outpatient R [facility] [id number] Univers 13:30:00 13:30:00 ity of [facility] 2020-12-24 2020-12-24 Nurse Visit, Arvind Nurse [facility] 1.2 .840.114 [id number] Univers 14:21:35 14:59:58 Visit Molina Pavon GLOBAL CHIEF EXPERIENCE OFFICER 350.1.13. 10 ity of [facility] 4.2.7.2.686 Man as MATERNAL [id number] [facility] & CHILD [address] [place] [address] 2020-12-24 2020-12-24 Outpatient R [facility] [id number] Univers 13:00:00 13:00:00 ity of [facility] 2020-12-18 2020-12-18 Hospital Farhat Clarkn [facility] 1.2.840.114 [id number] Univers 18:50:00 20:20:00 Encounter [place] 350.1.13.10 ity of [place] 4.2.7.2.686 [facility] [id number] [facility] [address] 2020-12-18 2020-12-18 Telephone Librado TNMARANDA 1.2.840.114 [id number] Univers 00:00:00 00:00:00 Molina Kearney GLOBAL CHIEF EXPERIENCE OFFICER 350.1.13.10 ity of [facility] 4.2.7.2.686 Man as MATERNAL [phone] [facility] & CHILD [address] [place] [address] 2020-12-18 2020-12-18 Orders Doctor MORAN 1.2.840.114 [id number] Univers 00:00:00 00:00:00 Only Unassigned, JANNA 350.1.13.10 ity of [place] [facility] 4.2.7.2.686 Man as [phone] [facility] [address] [place] 2020-12-17 2020-12-17 Nurse Visit, Arvind Nurse [facility] 1.2 .840.114 [id number] Univers 13:44:33 14:05:24 Visit Molina Pavon GLOBAL CHIEF EXPERIENCE OFFICER 350.1.13. 10 ity of REGIONAL 4.2.7.2.686 Man as MATERNAL [phone] [facility] & [address] 2020-12-17 2020-12-17 Airbrush Artist Technical Ultrasound, [facility] 1.2 .840.114 [id number] Univers 13:10:05 13:40:05 Visit Gerardo Pettit GLOBAL CHIEF EXPERIENCE OFFICER 350.1.13.10 ity of REGIONAL 4.2.7.2.686 Man as MATERNAL [id number] [facility] & CHILD [address] [place] [address] 2020-12-17 2020-12-17 Outpatient Freeman PAVON [facility] [id number] Univers 10:30:00 10:30:[address] [facility] 2020-12-17 2020-12-17 Abstract Librado [facility] 1.2.840.114 [id number] Univers 00:00:00 00:00:00 Molina Kearney GLOBAL CHIEF EXPERIENCE OFFICER 350.1.13.10 ity of REGIONAL 4.2.7.2.686 Man as MATERNAL [id number] [address] 2020-12-10 2020-12-10 Routine Librado [facility] 1.2.728.816 [id number] Univers 13:44:46 14:32:39 Molina Kearney GLOBAL CHIEF EXPERIENCE OFFICER 350.1.13.10 ity of Visit REGIONAL 4.2.7.2.686 Man as MATERNAL [id number] [facility] & [address] 2020-12-10 2020-12-10 Outpatient R LIBRADO [facility] [id number] Univers 14:15:00 14:15:[address] [facility] 2020-12-10 2020-12-10 Airbrush Artist Technical Ultrasound, [facility] 1.2 .840.114 [id number] Univers 13:01:03 13:31:03 Visit Gerardo Pettit GLOBAL CHIEF EXPERIENCE OFFICER 350.1.13.10 ity of [place] REGIONAL 4.2.7.2.686 [place] MATERNAL [id number] [facility] ical & CHILD [facility] 2020-12-03 2020-12-03 Airbrush Artist Technical Ultrasound, Tayopraveen [facility] 1.2 .840.114 [id number] Univers 10:42:41 12:12:49 Visit Gerardo Pettit GLOBAL CHIEF EXPERIENCE OFFICER 350.1.13.10 ity of Clara Petit [facility] 4.2.7.2.686 [place] MATERNAL [id number] [facility] ical & CHILD [address] [place] [address] 2020-12-03 2020-12-03 Outpatient P ELODIA PETTIT [facility] [id number] Univers 10:45:00 10:45:00 GERARDO caraballo [facility] 2020-12-03 2020-12-03 Nurse Visit, Arvind Nurse [facility] 1.2 .840.114 [id number] [facility] 10:22:01 10:42:50 Visit Molina Pavon GLOBAL CHIEF EXPERIENCE OFFICER 350.1.13. 10 ity of [facility] 4.2.7.2.686 Man as MATERNAL [phone] [facility] ical & CHILD [address] [place] [address] 2020-12-03 2020-12-03 Abstract ELODIA Pavon 1.2.840.114 [id number] Univers 00:00:00 00:00:00 Molina Kearney GLOBAL CHIEF EXPERIENCE OFFICER 350.1.13.10 ity of [facility] 4.2.7.2.686 Man as MATERNAL [id number] [facility] ical & CHILD [facility] 2020-11-26 2020-11-26 Airbrush Artist Technical Ultrasound, [facility] 1.2 .840.114 [id number] Univers 13:20:09 13:50:09 Visit Gerardo Pettit GLOBAL CHIEF EXPERIENCE OFFICER 350.1.13.10 ity of [facility] 4.2.7.2.686 Man as MATERNAL [phone] [facility] ical & CHILD [facility] 2020-11-26 2020-11-26 Nurse Visit, Arvind Nurse [facility] 1.2 .840.114 [id number] Univers 12:53:08 13:19:50 Visit Librado Molina Kearney GLOBAL CHIEF EXPERIENCE OFFICER 350.1.13. 10 ity of REGIONAL 4.2.7.2.686 Man as MATERNAL [phone] [facility] ical & CHILD [address] [place] [address] 2020-11-26 2020-11-26 Outpatient [facility] [id number] Univers 12:45:00 12:45:00 MOLINA ity o f [facility] 2020-11-26 2020-11-26 Abstract [facility] 1.2.840.114 [id number] Univers 00:00:00 00:00:00 Molina C GLOBAL CHIEF EXPERIENCE OFFICER 350.1.13.10 ity of [facility] 4.2.7.2.686 Man as MATERNAL [phone] [facility] & CHILD [address] [place] [address] 2020-11-19 2020-11-19 [facility] 1.2 .840.114 [id number] Univers 13:24:06 13:52:49 Visit Molina Pavon GLOBAL CHIEF EXPERIENCE OFFICER 350.1.13. 10 ity of [facility] 4.2.7.2.686 Man as MATERNAL [id number] [facility] & CHILD [address] [place] [address] 2020-11-19 2020-11-19 Airbrush Artist Technical Ultrasound, Tayopraveen [facility] 1.2 .840.114 [id number] Univers 13:03:14 13:33:14 Visit Gerardo Pettit GLOBAL CHIEF EXPERIENCE OFFICER 350.1.13.10 ity of Magdy Knutson [facility] 4.2.7.2.686 [place] MATERNAL [id number] [facility] & CHILD [facility] 2020-11-19 2020-11-19 Outpatient R [facility] [id number] Univers 13:30:00 13:30:00 ity of [facility] 2020-11-19 2020-11-19 Abstract Librado [facility] 1.2.840.114 [id number] Univers 00:00:00 00:00:00 Molina Kearney GLOBAL CHIEF EXPERIENCE OFFICER 350.1.13.10 ity of REGIONAL 4.2.7.2.686 Man as MATERNAL [id number] [facility] ical & CHILD [facility] 2020-11-14 2020-11-14 Abstract [facility] 1.2.840.114 [id number] Univers 00:00:00 00:00:00 Molina C GLOBAL CHIEF EXPERIENCE OFFICER 350.1.13.10 ity of REGIONAL 4.2.7.2.686 Man as MATERNAL [id number] [facility] & CHILD [address] [place] [address] 2020-11-12 2020-11-12 Routine [facility] 1.2.282.780 [id number] Univers 13:46:03 15:02:34 Molina C GLOBAL CHIEF EXPERIENCE OFFICER 350.1.13.10 ity of Visit REGIONAL 4.2.7.2.686 Man as MATERNAL [id number] [facility] & CHILD [address] [place] [address] 2020-11-12 2020-11-12 Outpatient [facility] [id number] Univers 14:00:00 14:00:00 MOLINA ity o f [facility] 2020-11-12 2020-11-12 Airbrush Artist Technical Ultrasound, [facility] 1.2 .840.114 [id number] Univers 13:12:59 13:42:59 Visit Gerardo Pettit GLOBAL CHIEF EXPERIENCE OFFICER 350.1.13.10 ity of Alina [place] REGIONAL 4.2.7.2 .686 [place] MATERNAL [id number] [facility] ical & CHILD [address] [place] [address] 2020-11-05 2020-11-05 Airbrush Artist Technical Ultrasound, [facility] 1.2 .840.114 [id number] Univers 12:57:18 13:27:18 Visit Gerardo Pettit GLOBAL CHIEF EXPERIENCE OFFICER 350.1.13.10 ity of REGIONAL 4.2.7.2.686 Man as MATERNAL [id number] [facility] ical & CHILD [address] [place] [address] 2020-11-05 2020-11-05 Outpatient P [facility] [id number] Univers 13:00:00 13:00:00 ity of [facility] 2020-11-052020-11-05 Abstract [facility] 1.2.840.114 [id number] Univers 00:00:00 00:00:00 Molina Kearney GLOBAL CHIEF EXPERIENCE OFFICER 350.1.13.10 ity of REGIONAL 4.2.7.2.686 Man as MATERNAL [id number] [facility] & CHILD [address] [place] [address] 2020-10-28 2020-10-28 Patient Damaso [facility] 1.2.840.114 [id number] Univers 00:00:00 00:00:00 Outreach Rigo PRIMARY 350.1.13.10 i ty of [facility] 4.2.7.2.686 [place] PAV[place] [id number] Id dical [address] 2020-10-15 2020-10-15 [facility]ine [facility] 1.2.417.956 [id number] Univers 13:53:52 14:39:37 Molina Kearney GLOBAL CHIEF EXPERIENCE OFFICER 350.1.13.10 ity of Visit [facility] 4.2.7.2.686 Man as MATERNAL [id number] [facility] & CHILD [address] [place] [address] 2020-10-15 2020-10-15 Outpatient [facility] [id number] Univers 14:00:00 14:00:00 MOLINA connolly f [facility] 2020-10-10 2020-10-10 Abstract [facility] 1.2.840.114 [id number] Univers 00:00:00 00:00:00 Molina Kearney GLOBAL CHIEF EXPERIENCE OFFICER 350.1.13.10 ity of [facility] 4.2.7.2.686 Man as MATERNAL [id number] [facility] & CHILD [address] [place] [address] 2020-10-09 2020-10-09 Orders Doctor LUISA 1.2.840.114 [id number] Univers 00:00:00 00:00:00 Only Unassigned, JANNA 350.1.13.10 ity of [place] [facility] 4.2.7.2.686 Man as [id number] [address] 2020-10-08 2020-10-08 Airbrush Artist Technical Raquel Stoll Room [facility] 1.2. 840.114 [id number] Univers 15:03:35 15:48:35 Visit Fátima Carson GLOBAL CHIEF EXPERIENCE OFFICER 350.1. 13.10 ity of REGIONAL 4.2.7.2.686 Man as MATERNAL [phone] Med ical & CHILD [facility] 2020-10-08 2020-10-08 Airbrush Artist Technical Lab, [facility] 1.2.840. 114 [id number] Univers 15:03:49 15:43:00 Visit Tennille Humphrey GLOBAL CHIEF EXPERIENCE OFFICER 350.1.13. 10 ity of [facility] 4.2.7.2.686 Man as MATERNAL [phone] [facility] ical & CHILD [facility] 2020-10-08 2020-10-08 Outpatient P [facility] [id number] Univers 14:00:00 14:00:00 ity of [facility] 2020-10-06 2020-10-06 Telephone [facility] 1.2.840.114 [id number] Univers 00:00:00 00:00:00 Molina Kearney GLOBAL CHIEF EXPERIENCE OFFICER 350.1.13.10 ity of [facility] 4.2.7.2.686 Man as MATERNAL [id number] [facility] ica & CHILD [address] [place] [address] 2020-09-29 2020-09-29 Orders Doctor LUISA 1.2.840.114 [id number] Univers 00:00:00 00:00:00 Only Unassigned, JANNA 350.1.13.10 ity of [place] [facility] 4.2.7.2.686 Man as [id number] [address] 2020-09-25 2020-09-25 Telephone [facility] 1.2.840.114 [id number] Univers 00:00:00 00:00:00 Molina Kearney GLOBAL CHIEF EXPERIENCE OFFICER 350.1.13.10 ity of [facility] 4.2.7.2.686 Man as MATERNAL [phone] [facility] ical & CHILD [address] [place] [address] 2020-09-24 2020-09-24 Outpatient [facility] [id number] Univers 15:00:00 15:00:00 MOLINA caraballo o f [facility] 2020-09-18 2020-09-18 Telephone [facility] 1.2.840.114 [id number] Univers 00:00:00 00:00:00 Molina C GLOBAL CHIEF EXPERIENCE OFFICER 350.1.13.10 ity of REGIONAL 4.2.7.2.686 Man as MATERNAL [id number] [facility] & CHILD [address] [place] [address] 2020-09-17 2020-09-17 Outpatient [facility] [id number] Univers 16:00:00 16:00:00 MOLINA caraballo o f [facility] 2020-09-17 2020-09-17 Routine [facility] 1.2.354.658 [id number] Univers 15:44:41 15:59:41 Molina C GLOBAL CHIEF EXPERIENCE OFFICER 350.1.13.10 ity of Visit REGIONAL 4.2.7.2.686 Man as MATERNAL [phone] [facility] & [address] 2020-08-20 2020-08-20 Initial [facility] [id number] Univers 12:55:28 14:19:34 Molina C GLOBAL CHIEF EXPERIENCE OFFICER 350.1.13.10 ity of Visit REGIONAL 4.2.7.2.686 Man as MATERNAL [phone] [facility] & [address] 2020-08-20 2020-08-20 Outpatient R [facility] [id number] Univers 12:45:00 12:45:00 ity of [facility] 2020-06-04 2020-06-04 [facility] [id number] Univers 15:42:24 16:35:24 Visit Molina C GLOBAL CHIEF EXPERIENCE OFFICER 350.1.13.10 ity of REGIONAL 4.2.7.2.686 Man as MATERNAL [phone] [facility] & [address] 2020-06-04 2020-06-04 [facility] [id number] Univers 16:00:00 16:00:00 MOLINA juan ramony o f [facility] 2020-04-01 2020-04-01 [facility] [id number] Univers 15:55:34 16:41:33 Visit Bella Millard GLOBAL CHIEF EXPERIENCE OFFICER 350.1.13.10 ity of [facility] 4.2.7.2.686 Man as MATERNAL [phone] [facility] & CHILD [address] [place] [address] 2020-04-01 2020-04-01 [facility] [id number] Univers 15:45:00 15:45:00 BELLA saba [facility] 2020-03-24 2020-03-24 Telephone IVON Samaniego [id number] Univers 00:00:00 00:00:00 Lenin HUERTA 350.1.13.10 [id number] [address] 2020-03-21 2020-03-22 Emergency [facility] [id number] Univers 22:44:00 01:28:00 Lenin Vasquez 350.1.13.10 i ty [place] [phone] [address] 2020-02-26 2020-02-26 Emergency [facility] [id number] Univers 16:39:27 18:59:00 Evangelist Vasquez 350.1.13.10 i ty of [place] 4[place]2.7.2.[place] [id number] [address] 2020-02-26 2020-02-26 Orders Doctor LUISA [id number] [id number] Univers 00:00:00 00:00:00 Only Unassigned, JANNA 350.1.13.10 ity of [place] [facility] [facility] 4.2.7.2.686 Man as [phone] [address] 2020-02-07 2020-02-07 Outpatient R [facility] [id number] Univers 13:00:00 13:00:00 MOLINA saba [facility] 2020-01-10 2020-01-10 Telephone [facility] 1.2.840.114 [id number] Univers 00:00:00 00:00:00 Molina C GLOBAL CHIEF EXPERIENCE OFFICER 350.1.13.10 ity of REGIONAL 4.2.7.2.686 Man as MATERNAL [phone] [facility] & CHILD [address] [place] [address] 2020-01-07 2020-01-07 [facility] [id number] Univers 08:30:00 08:30:00 MOLINA ity o f [facility] 2019-12-12 2019-12-12 Telephone [facility] 1.2.840.114 [id number] Univers 00:00:00 00:00:00 Molina C GLOBAL CHIEF EXPERIENCE OFFICER 350.1.13.10 ity of REGIONAL 4.2.7.2.686 Man as MATERNAL [phone] [address] 2019-11-16 2019-11-16 Outpatient R [facility] [id number] Univers 15:00:00 15:00:00 MOLINA ity o f [facility] 2019-10-26 2019-10-26 Telephone [facility] 1.2.840.114 [id number] Univers 00:00:00 00:00:00 Molina C GLOBAL CHIEF EXPERIENCE OFFICER 350.1.13.10 ity of REGIONAL 4.2.7.2.686 Man as MATERNAL [id number] [address] 2019-10-05 2019-10-05 Office [facility] 1.2.799.145 [id number] Univers 14:55:55 15:52:08 Visit Molina C GLOBAL CHIEF EXPERIENCE OFFICER 350.1.13.10 ity of REGIONAL 4.2.7.2.686 Man as MATERNAL [phone] [facility] & [address] 2019-10-05 2019-10-05 [facility] [id number] Univers 15:00:00 15:00:00 MOLINA ity o f [facility] 2019-10-05 2019-10-05 Orders Doctor MORAN 1.2.840.114 [id number] [facility] 00:00:00 00:00:00 Only Unassigned, JANNA 350.1.13.10 ity of [place] [facility] 4.2.7.2.686 Man as [phone] [address] 2019-09-20 2019-09-20 Office ELODIA Pavon 1.2.785.948 [id number] Univers 14:11:23 15:38:56 Visit Molina Kearney GLOBAL CHIEF EXPERIENCE OFFICER 350.1.13.10 ity of [facility] 4.2.7.2.686 Man as MATERNAL [id number] [facility] ical & CHILD [address] [place] [address] 2019-09-18 2019-09-18 Nurse Visit, Arvind Nurse [facility] 1.2 .840.114 [id number] [facility] 14:05:15 14:49:01 Visit Molina Pavon GLOBAL CHIEF EXPERIENCE OFFICER 350.1.13. 10 ity of [address]686 Man as MATERNAL [phone] [facility] & CHILD [address] [place] [address] 2019-04-27 2019-04-27 Abstract ELODIA Pavon 1.2.840.114 [id number] Univers 00:00:00 00:00:00 Molina Kearney GLOBAL CHIEF EXPERIENCE OFFICER 350.1.13.10 ity of [facility] 4.2.7.2.686 Man as MATERNAL [phone] [facility] & CHILD [address] [place] [address] 2019-04-24 2019-04-24 Nurse Visit, Arvind Nurse [facility] 1.2 .840.114 [id number] Univers 10:40:27 11:05:53 Visit Fátima Carson GLOBAL CHIEF EXPERIENCE OFFICER 350.1. 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 13.10 ity of REGIONAL 4.2.7.2.686 Man as MATERNAL [id number] Med ical & CHILD [address] [facility] 2019-04-17 2019-04-24 Routine Librado, [facility] 1.2.101.586 [id number] Univers 13:01:05 08:40:10 Molina C GLOBAL CHIEF EXPERIENCE OFFICER 350.1.13.10 ity of Visit REGIONAL 4.2.7.2.686 Man as MATERNAL [id number] [facility] ical & CHILD [address] [place] [address] 2019-04-18 2019-04-18 [facility] Bushra Conteh [facility] 1.2.840.114 [id number] [facility] 19:24:00 20:30:00 Encounter Jess Friend 350.1.13.1 0 ity of [place] 4.2.7.2.686 [facility] [id number] [address] 2019-04-14 2019-04-14 Hospital Phuc [facility] 1.2.840.114 [id number] Univers 01:31:00 02:40:00 Encounter Jess Vasquez 350.1.13.10 ity of [place] 4.2.7.2.686 [facility] [phone] [address] 2019-04-10 2019-04-10 Nurse Visit, Arvind Nurse [facility] 1.2 .840.114 [id number] Univers 14:01:50 14:41:50 Visit Molina Pavon GLOBAL CHIEF EXPERIENCE OFFICER 350.1.13. 10 ity of REGIONAL 4.2.7.2.686 Man as MATERNAL [id number] [facility] ical & CHILD [address] [place] [address] 2019-04-03 2019-04-03 Nurse Visit, Arvind Nurse [facility] 1.2 .840.114 [id number] Univers 11:47:37 12:00:15 Visit Molina Pavon GLOBAL CHIEF EXPERIENCE OFFICER 350.1.13. 10 ity of REGIONAL 4.2.7.2.686 Man as MATERNAL [id number] [facility] ical & CHILD [address] [place] [address] 2019-03-29 2019-03-29 Routine Risk, Pza-Kadgs-Ym/High [facility] 1. 2.840.114 [id number] Univers 13:37:34 15:04:21 Marilu Doran Natasha GLOBAL CHIEF EXPERIENCE OFFICER 350.1.13.10 ity of Visit REGIONAL 4.2.7.2.686 Man as MATERNAL [phone] [facility] & CHILD [address] [place] [address] 2019-03-27 2019-03-27 Nurse Visit, Prashanthnuvia Nurse [facility] 1.2 .840.114 [id number] Univers 10:09:07 10:24:12 Visit Molina Pavon GLOBAL CHIEF EXPERIENCE OFFICER 350.1.13. 10 ity of REGIONAL 4.2.7.2.686 Man as MATERNAL [id number] [facility] & CHILD [address] [place] [address] 2019-03-20 2019-03-20 Routine Josef, [facility] 1.2.365.222 [id number] Univers 10:34:37 11:11:26 Amanda Maurice GLOBAL CHIEF EXPERIENCE OFFICER 350.1.13.10 i ty of Visit REGIONAL 4.2.7.2.686 Man as MATERNAL [phone] [facility] & CHILD [address] [place] [address] 2019-03-20 2019-03-20 Nurse Visit, Arvind Nurse [facility] 1.2 .840.114 [id number] Univers 10:02:19 10:37:28 Visit Molina Pavon GLOBAL CHIEF EXPERIENCE OFFICER 350.1.13. 10 ity of REGIONAL 4.2.7.2.686 Man as MATERNAL [phone] [facility] & CHILD [address] [place] [address] 2019-03-15 2019-03-15 Routine FacultyDaryn m [facility] 1.2 .840.114 [id number] Univers 09:37:58 10:18:32 Molina Pavon GLOBAL CHIEF EXPERIENCE OFFICER 350.1.13 .10 ity of Visit REGIONAL 4.2.7.2.686 Man as MATERNAL [phone] [facility] & CHILD [address] [place] [address] 2019-03-13 2019-03-13 Nurse Visit, Arvind Nurse [facility] 1.2 .840.114 [id number] Univers 09:35:59 10:07:45 Visit Molina Pavon GLOBAL CHIEF EXPERIENCE OFFICER 350.1.13. 10 ity of REGIONAL 4.2.7.2.686 Man as MATERNAL [phone] [facility] & CHILD [address] [place] [address] 2019-03-06 2019-03-06 Nurse Visit, TayoRmp Nurse [facility] 1.2 .840.114 [id number] Univers 09:03:54 09:49:10 Visit Molina Pavon GLOBAL CHIEF EXPERIENCE OFFICER 350.1.13. 10 ity of [facility] 4.2.7.2.686 Man as MATERNAL [id number] [facility] ical & CHILD [address] [place] [address] 2019-02-20 2019-03-06 Routine Pamelazoraida, [facility] 1.2.106.705 [id number] Univers 10:45:20 09:40:49 Molina Kearney GLOBAL CHIEF EXPERIENCE OFFICER 350.1.13.10 ity of Visit [facility] 4.2.7.2.686 Man as MATERNAL [phone] [address] Results Test Description Test Time Test Comments Results Result Comments Source POCT TEST 2022-04-02 19:44:00 Test Item Value Reference Range Interpretation Comme nts POCT PREG (test code = 1605) Negative On board controls acceptable with C Line (test code = 3574) Yes POCT PREG LOT # (test code = 3575) POCT PREG TEST DATE (test code = 3576) [facility]REPTOCOCCUS BY [id number] 17:05:28 Test Item Value Reference Range Interpretation Comments Group B Streptococcus by PCR (test Positive Negative A code = 38249-6) Lab Interpretation (test code = Abnormal 65084-6) [facility] COVID [id number] 21:22:56COVID DMT InterpretationInterpretation/Recommendation:Molecular NAAT Tests for Active Infection withthe SARS-CoV-2 Virus:This patient has not been currently tested at [facility] for an active infection withthe SARS-CoV-2 [...] COVID-19 testing the patient has had at [facility], including molecular NAAT testing (more commonly known as PCR testing and RapidID Now testing) and antibody testing. It does not take into account any testing that a patient has had outside of the [facility] medical record. [facility] LABORATORY SERVICESCOVID ResultsCoV-2 IgG (no units) ? ? Date ? Value ? 03/25/2021 ? Negative ? 08/20/2020 ? Negative ? ? ? [facility] LABORATORY SERVICESUnHarris Health System Ben Taub HospitalSARS-COV-2 IGG 2021-03-26 05:50:07 Test Item Value Reference Range Interpretation Comments CoV-2 IgG (test code Negative Negative Negativ e result = 95892-0) does not rule o ut acute SARS-CoV- 2 infection. Clinical correlation as well as molecul ar diagnostic test are recommended to rule out acu te infection if clinically indicated. BRIDGET (test code = BRIDGET) The CoV-2 antibody test should not be used for screening of donated blood. This test has been approved by FDA for emergency use. Lab Interpretation Normal (test code = 94072-3) [facility] WITH [id number] 05:04:06 Test Item Value Reference Range Interpretation [...] RDW-SD (test code = 39.3 fL 39.0-49.9 32024-8) RDW-CV (test code = 13.6 % 12.0-15.5 788-0) PLT (test code = See_Comment [Automated 777-3) message] The sy stem which generated this result transmitted reference range : 166 - 358 10*3/ ?L. The reference r ian was not used to interpret this result as normal/abnormal . MPV (test code = 9.4 fL 9.5-12.9 L 95546-3) NRBC/100 WBC (test See_Comment [Automat ed code = 6510298001) message] The system which generated this result transmitted reference range : 0.0 - 10.0 /100 WBCs. The refer ence range was not u sed to interpret th is result as normal/abnormal . NRBC x10^3 (test code <0.01 See_Comment [Auto mated = 6942257887) message] The s ystem which generated this result transmitted reference range : 10*3/?L. The reference range was not used to interpret this result as normal/abnormal . GRAN MAT (NEUT) % 74.5 % (test code = 770-8) IMM GRAN % (test code 0.70 % = 0371443010) LYMPH % (test code = 15.3 % 736-9) MONO % (test code = 8.8 % 5905-5) EOS % (test code = 0.5 % 713-8) BASO % (test code = 0.2 % 706-2) GRAN MAT x10^3(ANC) 6.09 10*3/uL 1.88-7.09 (test code = 9291885915) IMM GRAN x10^3 (test 0.06 10*3/uL 0.00-0.06 code = 4863255949) LYMPH x10^3 (test code 1.25 10*3/uL 1.32-3.29 L = 731-0) MONO x10^3 (test code 0.72 10*3/uL 0.33-0.92 = 742-7) EOS x10^3 (test code = 0.04 10*3/uL 0.03-0.39 711-2) BASO x10^3 (test code <0.03 0.01-0.07 = 704-7) Lab Interpretation Abnormal (test code = 96921-2) [facility] URINALYSIS W SPECIFIC [id number] 18:26:00 Test Item Value Reference Range Interpretation [...] POCT U APPEAR (test code = 3267) [facility] URINALYSIS W SPECIFIC [id number] 18:55:00 Test Item Value Reference Range Interpretation [...] POCT U APPEAR (test code = 3267) [facility] URINALYSIS W SPECIFIC [id number] 18:55:00 Test Item Value Reference Range Interpretation [...] POCT U APPEAR (test code = 3267) [facility] SPECIFIC [id number] 18:19:00 Test Item Value Reference Range Interpretation [...] POCT U APPEAR (test code = 3267) [facility] CenterGALV ONLY - SYPHILIS [id number] 14:13:27 Test Item Value Reference Range Interpretation Comments Syphilis IgG/IgM (test Non-reactive Non-reactive code = 87409-8) BRIDGET (test code = BRIDGET) Non-reactive - No serologic evidence of T. pallidum infection. Cannot exclude incubating or early syphilis. Submit a second specimen in 2-4 weeks if syphilis is clinically suspected. Equivocal - Further testing to follow. Reactive - Further testing to follow. Lab Interpretation (test Normal code = 01064-3) [facility] CenterHIV 1/2 AG-AB WITH [id number] 06:30:45 Test Item Value Reference Range Interpretation Comments HIV Negative Negative Semi-quantitative (test code = 92393-5) BRIDGET (test code = Non-reactive for HIV-1 BRIDGET) antigen and HIV-1/HIV-2 antibodies. ?No laboratory evidence of HIV infection. ?Repeat in 2-4 weeks if acute HIV infection is suspected. [facility] CenterPrenatal Workup, Blood [id number] 04:17:21 Test Item Value Reference Range Interpretation Comments ABO & RH (test code B NEGATIVE Performe d at [facility] = 20) Laboratory [facility] Blood Bank3 [address] [facility] s [address]Jncl Free: [phone] A No. [id number] IAT (test code = Negative Performed a t [facility] 1185) Laboratory [facility] Blood [facility]3 [address] [facility] [address]Xiwh Free: [phone] A No. [id number] [facility] CenterPOCT URINALYSIS W SPECIFIC [id number] 18:28:00 Test Item Value Reference Range Interpretation [...] POCT U APPEAR (test code = 3267) [facility] CenterGlucose 1 Hour Post [id number] 06:46:48 Test Item Value Reference Range Interpretation Comments GLUC 1 HR (test code = 0263669633) 106 mg/dL 120-170 L Lab Interpretation (test code = Abnormal 11000-5) [facility] with [id number] 05:55:05 Test Item Value Reference Range Interpretation Comments WBC (test code = See_Comment [Automated 3190-2) message] The sy stem which generated this result transmitted reference range : 4.30 - 11.10 10*3/?L. The reference range was not used to interpret this result as normal/abnormal . RBC (test code = See_Comment L [Automated 349-8) message] The sy stem which generated this [...] RDW-SD (test code = 42.4 fL 39.0-49.9 97828-9) RDW-CV (test code = 13.5 % 12.0-15.5 788-0) PLT (test code = See_Comment [Automated 777-3) message] The sy stem which generated this result transmitted reference range : 166 - 358 10*3/ ?L. The reference r ian was not used to interpret this result as normal/abnormal . MPV (test code = 9.8 fL 9.5-12.9 55386-2) NRBC/100 WBC (test See_Comment [Automat ed code = 0707669262) message] The system which generated this result transmitted reference range : 0.0 - 10.0 /100 WBCs. The refer ence range was not u sed to interpret th is result as normal/abnormal . NRBC x10^3 (test code <0.01 See_Comment [Auto mated = 5861724486) message] The s ystem which generated this result transmitted reference range : 10*3/?L. The reference range was not used to interpret this result as normal/abnormal . GRAN MAT (NEUT) % 77.2 % (test code = 770-8) IMM GRAN % (test code 0.40 % = 1769128754) LYMPH % (test code = 12.6 % 736-9) MONO % (test code = 8.2 % 5905-5) EOS % (test code = 1.2 % 713-8) BASO % (test code = 0.4 % 706-2) GRAN MAT x10^3(ANC) 6.19 10*3/uL 1.88-7.09 (test code = 7269042931) IMM GRAN x10^3 (test 0.03 10*3/uL 0.00-0.06 code = 2462922015) LYMPH x10^3 (test code 1.01 10*3/uL 1.32-3.29 L = 731-0) MONO x10^3 (test code 0.66 10*3/uL 0.33-0.92 = 742-7) EOS x10^3 (test code = 0.10 10*3/uL 0.03-0.39 711-2) BASO x10^3 (test code 0.03 10*3/uL 0.01-0.07 = 704-7) Lab Interpretation Abnormal (test code = 68996-9) [facility] URINALYSIS W SPECIFIC [id number] 19:05:00 Test Item Value Reference Range Interpretation [...] POCT U APPEAR (test code = 3267) [facility] URINALYSIS W SPECIFIC [id number] 19:05:00 Test Item Value Reference Range Interpretation [...] POCT U APPEAR (test code = 3267) [facility] URINALYSIS W SPECIFIC [id number] 19:37:00 Test Item Value Reference Range Interpretation [...] POCT U APPEAR (test code = 3267) [facility] URINALYSIS W SPECIFIC [id number] 18:59:00 Test Item Value Reference Range Interpretation [...] POCT U APPEAR (test code = 3267) [facility] URINALYSIS W SPECIFIC [id number] 18:59:00 Test Item Value Reference Range Interpretation [...] POCT U APPEAR (test code = 3267) [facility] URINALYSIS W SPECIFIC [id number] 20:09:00 Test Item Value Reference Range Interpretation [...] POCT U APPEAR (test code = 3267) [facility] URINALYSIS W SPECIFIC [id number] 22:04:00 Test Item Value Reference Range Interpretation [...] POCT U APPEAR (test code = 3267) [facility] COVID [id number] 22:28:00COVID DMT InterpretationInterpretation/Recommendation: Molecular NAAT Tests for [...] COVID-19 testing the patient has had at [facility], including molecular NAAT testing (more commonly known as PCR testing and Rapid ID Now testing) and antibody testing. It does not take into account any testing that a patient has had outside of the [facility] medical record. [facility] LABORATORY SERVICESCOVID ResultsCoV-2 IgG (no units) ? ? Date ? Value ? 08/20/2020 ? Negative ? ? ? [facility] LABORATORY SERVICESUnHarris Health System Ben Taub HospitalGC & CHLAMYDIA AMPLIFIED [id number] 19:13:00 Test Item Value Reference Range Interpretation Comments C. trachomatis Nucleic Negative Negative Acid (test code = 57524-5) N. gonorrhoeae Nucleic Negative Negative Acid (test code = 06422-0) BRIDGET (test code = BRIDGET) Reliable results [...] NAAT. Lab Interpretation Normal (test code = 24363-3) [facility] CenterRUBELLA SCREEN (NICHOLAS) [id number] 18:20:00 Test Item Value Reference Range Interpretation Comments Rubella screen IgG Positive Negative (test code = 5466516275) BRIDGET (test code = BRIDGET) Positive - Indicates the patient was exposed to Rubella through infection or vaccination.Negative - Indicates the patient could be susceptible to Rubella infection.Equivocal - A second specimen should be sent. [facility]ODY [id number] 18:20:00 Test Item Value Reference Range Interpretation Comments VZV IgG antibody Positive Negative (test code = 25015-6) BRIDGET (test code = BRIDGET) Positive - Indicates the patient was exposed to VZV through infection or vaccination.Negative - Indicates the patient could be susceptible to VZV infection.Equivocal - A second specimen should be sent for testing. [facility] ONLY - SYPHILIS [id number] 15:58:00 Test Item Value Reference Range Interpretation Comments Syphilis IgG/IgM (test Non-reactive Non-reactive code = 91889-2) BRIDGET (test code = BRIDGET) Non-reactive - No serologic evidence of T. pallidum infection. Cannot exclude incubating or early syphilis. Submit a second specimen in 2-4 weeks if syphilis is clinically suspected. Equivocal - Further testing to follow. Reactive - Further testing to follow. Lab Interpretation (test Normal code = 13902-7) [facility] CenterHIV [facility]/2 AG-AB WITH [id number] 07:44:00 Test Item Value Reference Range Interpretation Comments HIV Negative Negative Semi-quantitative (test code = 92894-5) BRIDGET (test code = Non-reactive for HIV-1 BRIDGET) antigen and HIV-1/HIV-2 antibodies. ?No laboratory evidence of HIV infection. ?Repeat in 2-4 weeks if acute HIV infection is suspected. [facility] CenterSARS-COV-2 [id number] 06:37:00 Test Item Value Reference Range Interpretation Comments CoV-2 IgG (test code Negative Negative Negativ e result = 72928-0) does not rule o ut acute SARS-CoV- 2 infection. Clinical correlation as well as molecul ar diagnostic test are recommended to rule out acu te infection if clinically indicated. BRIDGET (test code = BRIDGET) This test has been approved by FDA for emergency use. Lab Interpretation Normal (test code = 93648-7) [facility] CenterHEPATITIS B SURFACE [id number] 06:28:00 Test Item Value Reference Range Interpretation Comments HBsAg Semi-Quantitative (test code = Negative Negative 5195-3) [facility] CenterPRENATAL WORKUP, BLOOD [id number] 05:28:33 Test Item Value Reference Range Interpretation Comments ABO & RH (test code B NEGATIVE Performe d at [facility] = 20) Laboratory [facility] Blood Bank3 [facility] [address]Ixpo Free: [phone] A No. [id number] IAT (test code = Negative Performed a t [facility] 1185) [facility] Blood Bank3 [facility] s [address]Spxm Free: [phone] A No. [id number] [facility] CenterGLUCOSE 1 HOUR POST [id number] 05:10:00 Test Item Value Reference Range Interpretation Comments GLUC 1 HR (test code = 2346023160) 67 mg/dL 120-170 L Lab Interpretation (test code = Abnormal 99360-0) [facility] WITH [id number] 04:00:00 Test Item Value Reference Range Interpretation Comments WBC (test code = See_Comment [Automated 5004-2) message] The sy stem which generated this result transmitted reference range : 4.30 - 11.10 10*3/?L. The reference range was not used to interpret this result as normal/abnormal . RBC (test code = See_Comment [Automated 658-8) message] The sy stem which generated this [...] RDW-SD (test code = 47.8 fL 39-49.9 54101-4) RDW-CV (test code = 15.8 % 12-15.5 H 788-0) PLT (test code = See_Comment [Automated 777-3) message] The sy stem which generated this result transmitted reference range : 166 - 358 10*3/ ?L. The reference r ian was not used to interpret this result as normal/abnormal . MPV (test code = 10.1 fL 9.5-12.9 49884-7) NRBC/100 WBC (test See_Comment [Automat ed code = 9743339165) message] The system which generated this result transmitted reference range : 0.0 - 10.0 /100 WBCs. The refer ence range was not u sed to interpret th is result as normal/abnormal . NRBC x10^3 (test code <0.01 See_Comment [Auto mated = 4291130650) message] The s ystem which generated this result transmitted reference range : 10*3/?L. The reference range was not used to interpret this result as normal/abnormal . GRAN MAT (NEUT) % 60.4 % (test code = 770-8) IMM GRAN % (test code 0.20 % = 5185762535) LYMPH % (test code = 27.9 % 736-9) MONO % (test code = 8.4 % 5905-5) EOS % (test code = 2.1 % 713-8) BASO % (test code = 1.0 % 706-2) GRAN MAT x10^3(ANC) 3.80 10*3/uL 1.88-7.09 (test code = 4345154070) IMM GRAN x10^3 (test <0.03 0-0.06 code = 5886651271) LYMPH x10^3 (test code 1.75 10*3/uL 1.32-3.29 = 731-0) MONO x10^3 (test code 0.53 10*3/uL 0.33-0.92 = 742-7) EOS x10^3 (test code = 0.13 10*3/uL 0.03-0.39 711-2) BASO x10^3 (test code 0.06 10*3/uL 0.01-0.07 = 704-7) Lab Interpretation Abnormal (test code = 55603-8) [facility] [id number] 18:57:00 Test Item Value Reference Range Interpretation Comments POCT PREG (test code = 1605) Positive On board controls acceptable with C Yes Line (test code = 3574) POCT PREG LOT # (test code = 3575) POCT PREG TEST DATE (test code = 357) [facility] URINALYSIS W/O SPECIFIC [id number] 18:57:00 Test Item Value Reference Range Interpretation [...] code = 3257) Neg Negative - Negative [facility] [id number] 18:57:00 Test Item Value Reference Range Interpretation Comments POCT PREG (test code = 1605) Positive On board controls acceptable with C Yes Line (test code = 3574) POCT PREG LOT # (test code = 3575) POCT PREG TEST DATE (test code = 3576) [facility] URINALYSIS W/O SPECIFIC [id number] 18:57:00 Test Item Value Reference Range Interpretation [...] code = 3257) Neg Negative - Negative [facility] CenterUrinalysis2020-08-15 04:43:00 Test Item Value Reference Range Interpretation Comments APPEARANCE (test code = Cloudy Clear A 8790111230) COLOR (test code = Yellow Yellow 4957097174) PH (test code = 4.8-8.0 5567352364) SP GRAVITY (test code = 1.003-1.030 4114971467) GLU U QUAL (test code = Normal Normal 2131364469) BLOOD (test code = Negative Negative 7869010229) KETONES (test code = Negative Negative 9211575691) PROTEIN (test code = Negative Negative 2887-8) UROBILIN (test code = Normal Normal 7094765976) BILIRUBIN (test code = Negative Negative 7131237124) NITRITE (test code = Negative Negative 7052058292) LEUK SUZANNA (test code = Negative Negative 8357092805) RBC/HPF (test code = See_Comment [Autom ated message] 7588481327) The system [employer] generated this result transmitted ref erence range: 0 - 3 HP F. The reference range was not used to int erpret this result as normal/abnormal . WBC/HPF (test code = See_Comment [Autom ated message] 1205333142) The system [employer] generated this result transmitted ref erence range: 0 - 5 HP F. The reference range was not used to int erpret this result as normal/abnormal . BACTERIA (test code = Few Negative A 4433524920) SQ EPITH (test code = HPF 8579057703) Lab Interpretation (test Abnormal code = 97732-4) [facility] [id number] 04:27:00 Test Item Value Reference Range Interpretation Comments NA (test code = 138 mmol/L 135-145 6816278762) K (test code = 3.8 mmol/L 3.5-5 3455364403) CL (test code = 104 mmol/L 98-108 7272034119) CO2 TOTAL (test code = 26 mmol/L 23-31 1184333512) AGAP (test code = 2-16 1423466459) BUN (test code = 13 mg/dL 7-23 0407701228) GLUCOSE (test code = 75 mg/dL 70-110 0872984019) CREATININE (test code 0.90 mg/dL 0.5-1.04 = 3057441169) TOTAL BILI (test code 0.1 mg/dL 0.1-1.1 = 4786696405) CALCIUM (test code = 9.7 mg/dL 8.6-10.6 4261820829) T PROTEIN (test code = 8.1 g/dL 6.3-8.2 4614615668) ALBUMIN (test code = 4.7 g/dL 3.5-5 0949809454) ALK PHOS (test code = 48 U/L 34-122 9714451733) ALTv (test code = 15 U/L 5-35 1742-6) AST(SGOT) (test code = 22 U/L 13-40 6339383150) eGFR Calculation mL/min/1.73m2 (Non-) (test code = 5349194073) eGFR Calculation mL/min/1.73m2 () (test code = 1077131690) BRIDGET (test code = BRIDGET) Association of [...] or urine or abnormalities in imaging tests). [facility] with [id number] 04:16:00 Test Item Value Reference Range Interpretation [...] RDW-SD (test code = 44.7 fL 39-49.9 37253-1) RDW-CV (test code = 15.8 % 12-15.5 H 788-0) PLT (test code = See_Comment [Automated 777-3) message] The sy stem which generated this result transmitted reference range : 166 - 358 10*3/ ?L. The reference r ian was not used to interpret this result as normal/abnormal . MPV (test code = 9.5 fL 9.5-12.9 85467-0) NRBC/100 WBC (test See_Comment [Automat ed code = 9589196716) message] The system which generated this result transmitted reference range : 0.0 - 10.0 /100 WBCs. The refer ence range was not u sed to interpret th is result as normal/abnormal . NRBC x10^3 (test code <0.01 See_Comment [Auto mated = 4995977743) message] The s ystem which generated this result transmitted reference range : 10*3/?L. The reference range was not used to interpret this result as normal/abnormal . GRAN MAT (NEUT) % 47.1 % (test code = 770-8) IMM GRAN % (test code 0.30 % = 0589635119) LYMPH % (test code = 38.6 % 736-9) MONO % (test code = 9.7 % 5905-5) EOS % (test code = 3.4 % 713-8) BASO % (test code = 0.9 % 706-2) GRAN MAT x10^3(ANC) 3.19 10*3/uL 1.88-7.09 (test code = 3022573942) IMM GRAN x10^3 (test <0.03 0-0.06 code = 4549726264) LYMPH x10^3 (test code 2.61 10*3/uL 1.32-3.29 = 731-0) MONO x10^3 (test code 0.66 10*3/uL 0.33-0.92 = 742-7) EOS x10^3 (test code = 0.23 10*3/uL 0.03-0.39 711-2) BASO x10^3 (test code 0.06 10*3/uL 0.01-0.07 = 704-7) Lab Interpretation Abnormal (test code = 69783-7) [facility] [id number] 04:03:00 Test Item Value Reference Range Interpretation Comments POCT PREG (test code = 1605) Negative On board controls acceptable with present C Line (test code = 3574) POCT PREG LOT # (test code = 3575) [id number] POCT PREG TEST DATE (test 03/07/2021 code = 3576) Lab Interpretation (test code = Normal 36589-9) [facility] COMPLETE WITH [id number] 23:06:02 Unremarkable ultrasound of the uterus and right ovary. Left ovary could notbe visualized Preliminary Report Dictated by Resident: Milad Chávez MD., have reviewed this study and agreewith the abovereport.EXAM: US PELVIS COMPLETE WITH TRANSVAGINAL HISTORY: 19 years -old Female with pelvic pain . LMP = 02/05/2020. n TECHNIQUE: Transabdominal and transvaginal ultrasound imaging ofthe pelviswas performed including color Doppler evaluation. Supplier Engineer imageswere obtained for the record. COMPARISON: None [...] with pelvic pain . LMP = 02/05/2020. [id number]: Transabdominal and transvaginal ultraso und imaging of the pelviswas performed including color Doppler evaluation. Supplier Engineer imageswereobtained for the record.COMPARISON: NoneFINDINGS:Uterus: The uterus [...] reviewed this study and agree with the abovereport.[facility]. METABOLIC PANEL (66348) 2020-02-26 22:42:00 Test Item Value Reference Range Interpretation Comments NA (test code = 138 mmol/L 135-145 8020730895) K (test code = 4.3 mmol/L 3.5-5 6503061329) CL (test code = 107 mmol/L 98-108 6480074770) CO2 TOTAL (test code = 23 mmol/L 23-31 6767866529) AGAP (test code = 2-16 3914807467) BUN (test code = 14 mg/dL 7-23 6426884476) GLUCOSE (test code = 93 mg/dL 70-110 3323371563) CREATININE (test code 0.75 mg/dL 0.5-1.04 = 5425250772) TOTAL BILI (test code 0.3 mg/dL 0.1-1.1 = 5816378591) CALCIUM (test code = 9.8 mg/dL 8.6-10.6 7983748921) T PROTEIN (test code = 7.9 g/dL 6.3-8.2 2231187548) ALBUMIN (test code = 4.7 g/dL 3.5-5 9466787923) ALK PHOS (test code = 41 U/L 34-122 6452773685) ALTv (test code = 12 U/L 5-35 1742-6) AST(SGOT) (test code = 19 U/L 13-40 4090697653) eGFR Calculation mL/min/1.73m2 (Non-) (test code = 9902848652) eGFR Calculation mL/min/1.73m2 () (test code = 7459185531) BRIDGET (test code = BRIDGET) Association of [...] or urine or abnormalities in imaging tests). [facility]2020-[facility] 22:32:00 Test Item Value Reference Range Interpretation Comments APPEARANCE (test code = Hazy Clear A 3839462827) COLOR (test code = Yellow Yellow 7413393867) PH (test code = 4.8-8.0 3651977157) SP GRAVITY (test code = 1.003-1.030 5776080303) GLU U QUAL (test code = Normal Normal 0092938424) BLOOD (test code = Negative Negative INTERFERE NCE FROM 6879232655) ASCORBIC ACID M AY CAUSE FALSE NEG ATIVE RESULT KETONES (test code = Negative Negative 4486968594) PROTEIN (test code = Negative Negative 2887-8) UROBILIN (test code = Normal Normal 1125898035) BILIRUBIN (test code = Negative Negative 8581968096) NITRITE (test code = Negative Negative 5600540983) LEUK SUZANNA (test code = Negative Negative 3842666689) RBC/HPF (test code = See_Comment [Autom ated message] 3496578024) The system [employer] generated this result transmitted ref erence range: 0 - 3 HP F. The reference range was not used to int erpret this result as normal/abnormal . WBC/HPF (test code = See_Comment [Autom ated message] 0771107923) The system [employer] generated this result transmitted ref erence range: 0 - 5 HP F. The reference range was not used to int erpret this result as normal/abnormal . BACTERIA (test code = Few Negative A 9647996283) MUCOUS (test code = Slight Negative LPF A 1149923850) SQ EPITH (test code = HPF 8839949632) Lab Interpretation (test Abnormal code = 64805-3) [facility] WITH [id number] 22:23:00 Test Item Value Reference Range Interpretation [...] RDW-SD (test code = 42.4 fL 39-49.9 20248-4) RDW-CV (test code = 15.4 % 12-15.5 788-0) PLT (test code = See_Comment [Automated 777-3) message] The sy stem which generated this result transmitted reference range : 166 - 358 10*3/ ?L. The reference r ian was not used to interpret this result as normal/abnormal . MPV (test code = 9.4 fL 9.5-12.9 L 71862-8) NRBC/100 WBC (test See_Comment [Automat ed code = 9813656243) message] The system which generated this result transmitted reference range : 0.0 - 10.0 /100 WBCs. The refer ence range was not u sed to interpret th is result as normal/abnormal . NRBC x10^3 (test code <0.01 See_Comment [Auto mated = 9318344201) message] The s ystem which generated this result transmitted reference range : 10*3/?L. The reference range was not used to interpret this result as normal/abnormal . GRAN MAT (NEUT) % 57.4 % (test code = 770-8) IMM GRAN % (test code 0.20 % = 6069172774) LYMPH % (test code = 27.8 % 736-9) MONO % (test code = 10.2 % 5905-5) EOS % (test code = 3.4 % 713-8) BASO % (test code = 1.0 % 706-2) GRAN MAT x10^3(ANC) 3.38 10*3/uL 1.88-7.09 (test code = 3336048011) IMM GRAN x10^3 (test <0.03 0-0.06 code = 9097218228) LYMPH x10^3 (test code 1.64 10*3/uL 1.32-3.29 = 731-0) MONO x10^3 (test code 0.60 10*3/uL 0.33-0.92 = 742-7) EOS x10^3 (test code = 0.20 10*3/uL 0.03-0.39 711-2) BASO x10^3 (test code 0.06 10*3/uL 0.01-0.07 = 704-7) Lab Interpretation Abnormal (test code = 36279-9) [facility] [id number] 22:12:00 Test Item Value Reference Range Interpretation Comments POCT PREG (test code = 1605) negative On board controls acceptable with C present Line (test code = 3574) Lab Interpretation (test code = Normal 33399-6) [facility] [id number] 21:24:00 Test Item Value Reference Range Interpretation Comments POCT PREG (test code = 1605) Negative On board controls acceptable with C Yes Line (test code = 3574) POCT PREG LOT # (test code = 3575) POCT PREG TEST DATE (test code = 3576) [facility] [id number] 21:24:00 Test Item Value Reference Range Interpretation Comments POCT PREG (test code = 1605) Negative On board controls acceptable with C Yes Line (test code = 3574) POCT PREG LOT # (test code = 3575) POCT PREG TEST DATE (test code = 3576) [facility] [id number] 20:36:00 Test Item Value Reference Range Interpretation Comments POCT PREG (test code = 1605) Negative On board controls acceptable with C Yes Line (test code = 3574) POCT PREG LOT # (test code = 3575) POCT PREG TEST DATE (test code = 3576) [facility] [id number] 20:36:00 Test Item Value Reference Range Interpretation Comments POCT PREG (test code = 1605) Negative On board controls acceptable with C Yes Line (test code = 3574) POCT PREG LOT # (test code = 3575) POCT PREG TEST DATE (test code = 3576) [facility] CenterUR[facility] [id number] 12:23:00 Test Item Value Reference Range Interpretation Comments URINE CULTURE (test > 100,000 CFU/mL mixed code = 630-4) aerobic organisms - suggests endogenous microbial contamination [facility] [id number] 12:23:00 Test Item Value Reference Range Interpretation Comments URINE CULTURE (test > 100,000 CFU/mL mixed code = 630-4) aerobic organisms - suggests endogenous microbial contamination [facility] CenterANTI-D R/O [id number] 10:48:29 Test Item Value Reference Range Interpretation Comments ANTIBODY (test Anti-D Probable RhIg recei osiel code = 683) RhIg 03/29/19.Perform ed at [facility] Blood [address] [address]Zybf Free: [phone] A No. [id number] [facility] CenterANTI-D R/O [id number] 10:48:29 Test Item Value Reference Range Interpretation Comments ANTIBODY (test Anti-D Probable RhIg recei osiel code = 683) RhIg 03/29/19.Perform ed at [facility] Blood [address] s [address]Cikb Free: [phone] A No. [id number] [facility], [facility]LOOD [id number] 08:48:27 Test Item Value Reference Range Interpretation Comments ABO & RH (test code B NEGATIVE Performe d at [facility] = 20) Laboratory [facility] Blood [facility] [place] [address]Csst Free: [phone] A No. [id number] IAT (test code = Positive Performed a t [facility] 1185) Laboratory [facility] Blood [address] [place] [address]Obwb Free: [phone] A No. [id number] [facility] CenterPRENATAL WORKUP, BLOOD [id number] 08:48:27 Test Item Value Reference Range Interpretation Comments ABO & RH (test code B NEGATIVE Performe d at [facility] = 20) Laboratory [facility] Blood [address] [address]Prpm Free: [phone] A No. [id number] IAT (test code = Positive Performed a t [facility] 1185) Laboratory [facility] Blood [address] [address]Rkqu Free: [phone] A No. [id number] [facility] CenterPOMT URINALYSIS W SPECIFIC [id number] 18:15:00 Test Item Value Reference Range Interpretation [...] POCT U APPEAR (test code = 3267) [facility]PO[facility] W SPECIFIC [id number] 18:15:00 Test Item Value Reference Range Interpretation [...] POCT U APPEAR (test code = 3267) [facility] W SPECIFIC [id number] 18:15:00 Test Item Value Reference Range Interpretation [...] POCT U APPEAR (test code = 3267) [facility] CenterGALV ONLY - SYPHILIS [id number] 14:40:00 Test Item Value Reference Range Interpretation Comments Syphilis IgG/IgM (test Non-reactive Non-reactive code = 63395-0) BRIDGET (test code = BRIDGET) Non-reactive - No serologic evidence of T. pallidum infection. Cannot exclude incubating or early syphilis. Submit a second specimen in 2-4 weeks if syphilis is clinically suspected.Equivocal - Further testing to follow.Reactive - Further testing to follow. Lab Interpretation (test Normal code = 92105-4) [facility] CenterHIV 1/2 AG-AB WITH [id number] 11:17:00 Test Item Value Reference Range Interpretation Comments HIV Negative Negative Semi-quantitative (test code = 47043-1) BRIDGET (test code = Non-reactive for HIV-1 BRIDGET) antigen and HIV-1/HIV-2 antibodies.?No laboratory evidence of HIV infection.?Repeat in 2-4 weeks if acute HIV infection is suspected. [facility] URINALYSIS W SPECIFIC [id number] 18:48:00 Test Item Value Reference Range Interpretation [...] POCT U APPEAR (test code = 3267) [facility] URINALYSIS W SPECIFIC [id number] 14:59:00 Test Item Value Reference Range Interpretation [...] POCT U APPEAR (test code = 3267) [facility]"
[2022-12-02 16:46] LABS: Absolute Lymphocytes (CBC) 1.7 K/uL (0.7-4.9); Hematocrit 37.8 % (36.0-45.0); Lymphocytes % 28.4 % (15.3-44.8); MCV 80.4 fL (80-100); MPV 7.4 fL (7.6-11.3)
[2022-12-02 17:04] LABS: Specific Gravity 1.017 (1.005-1.030)
[2022-12-02 17:04] LABS: Albumin 4.8 g/dL (3.4-5.0); Bilirubin Total 0.3 mg/dL (0.2-1.0); Potassium 3.2 mEq/L (3.5-5.1); Protein, Total 9.2 g/dL (6.4-8.2)
[2022-12-02 17:05] LABS: Specific Gravity 1.017 (1.005-1.030); Urine Bacteria None Seen /HPF (<20); Urine Bilirubin NEGATIVE (Negative); Urine Blood Negative (Negative); Urine Clarity Clear (Clear); Urine Color Yellow (Yellow); Urine Glucose NEGATIVE (Negative); Urine Mucus Slight /HPF (None Seen); Urine Protein NEGATIVE (Negative); Urine RBC <5 /HPF (None Seen); Urine Urobilinogen Normal (Normal); Urine pH 7.5 (5.0-7.0)
--- NOTE | 2022-12-02 19:00 | RAD REPORT ---
EXAM DESCRIPTION: CT - Abdomen Pelvis W Contrast - 12/02/2022 6:35 pm CLINICAL HISTORY: ABD PAIN COMPARISON: Abdomen Pelvis W Contrast dated 03/12/2020 TECHNIQUE: Thin cut axial CT imaging of the abdomen and pelvis was performed following intravenous a dministration of 100 mL Isovue 300. Multiplanar reformats were generated and reviewed. All CT scans are performed using dose optimization technique as appropriate and may include automated exposure control or mA/KV adjustment according to patient size. FINDINGS: No suspicious findings in the lung bases. The liver, spleen, and pancreas show no suspicious findings. Numerous cholesterol containing Gall[place] es. Gallbladder wall hyperenhancement and mild pericholecystic edema. Symmetric renal function is seen with no hydronephrosis or suspicious renal mass. No dilated bowel loops or bowel wall thickening. No free air, free fluid or inflammatory stranding. N o hernia, mass or bulky lymphadenopathy. The urinary bladder is without significant finding. No suspicious bony findings. IMPRESSION: Cholelithiasis with gallbladder wall hyperenhancement and mild pericholecystic edema. Pl ease correlate clinically for evidence of acute cholecystitis.
--- NOTE | 2022-12-02 21:18 | RAD REPORT ---
EXAM DESCRIPTION: US - Abdomen Exam Limited - 12/02/2022 8:04 pm CLINICAL HISTORY: ABD PAIN COMPARISON: Abdomen Pelvis W Contrast dated 12/02/2022 TECHNIQUE: Sonographic grayscale and color flow images of the right upper abdominal quadrant were obtained. FINDINGS: The gallbladder demonstrates numerous echogenic shadowing stones. Gallbladder is slightly contracted. No pericholecystic fluid or gallbladder wall thickening. The common bile duct is normal m easuring 3 mm. The liver demonstrates no findings of intrahepatic biliary dilatation. IMPRESSION: Cholelithiasis. Slightly contracted gallbladder which limits evaluation. No other abnormalities.
--- NOTE | 2022-12-02 21:54 | EDPHYS ---
Physician Documentation [facility] Name: Jazmin Lott Age: 22 yrs Sex: Female : 2000 Arrival Date: 12/02/2022 Time: 15:43 Bed 20 Private MD: ED Physician Torrey Sanchez HPI: 12/02 16:15 This 22 yrs old Female presents to ER via Ambulatory with complaints of Diarrhea. cp 16:15 The patient presents to the emergency department with nausea, that is mild, diarrhea, cp daily, abdominal pain, of the mid abdomen, described as intermittent. Onset: The symptoms/episode began/occurred 2 week(s) ago. 16:15 Associated signs and symptoms: Pertinent positives: abdominal pain, diarrhea, nausea, cp decreased appetite, weight loss, Pertinent negatives: constipation, fever, GI bleeding. Severity of symptoms: in the emergency department the symptoms are unchanged. Patient reports recent use of antibiotics. Historical: - Allergies: 15:53 Doxycycline; ll1 - PMHx: 15:53 depressive disorder; pelvic inflammatory disease; ll1 - PSHx: 15:53 None; ll1 - Immunization history:: Adult Immunizations up to date, Client reports having NOT received the Covid vaccine. - Social history:: Smoking status: Reported history of juuling and/or vaping. ROS: 16:20 Constitutional: Positive for weight loss, Negative for body aches, chills, fever. cp 16:20 Eyes: Negative for injury, pain, redness, and discharge. cp 16:20 Respiratory: Negative for cough, shortness of breath, wheezing. 16:20 Abdomen/GI: Positive for abdominal pain, nausea, diarrhea, anorexia, Negative for constipation, black/tarry stool, rectal bleeding. 16:20 : Negative for urinary symptoms. 16:20 Neuro: Negative for altered mental status, dizziness, headache, weakness. cp 16:20 All other systems are negative. Exam: 16:25 Constitutional: The patient appears in no acute distress, alert, awake, comfortable, cp non-toxic, well developed, well nourished. 16:25 Head/Face: Normocephalic, atraumatic. cp 16:25 Eyes: Periorbital structures: appear normal, Conjunctiva: normal, no exudate, no injection, Sclera: no appreciated abnormality, Lids and lashes: appear normal, bilaterally. 16:25 ENT: External ear(s): are unremarkable, Nose: is normal, Mouth: Lips: moist, Oral mucosa: pink and intact, moist, Posterior pharynx: is normal, airway is patent, no erythema, no exudate. 16:25 Chest/axilla: Inspection: normal. 16:25 Cardiovascular: Rate: normal, Rhythm: regular. 16:25 Respiratory: the patient does not display signs of respiratory distress, Respirations: normal, no use of accessory muscles, no retractions, labored breathing, is not present, Breath sounds: are clear throughout, no decreased breath sounds, no stridor, no wheezing. 16:25 Abdomen/GI: Inspection: abdomen appears normal, Bowel sounds: active, all quadrants, Palpation: soft, in all quadrants, mild abdominal tenderness, in the epigastric area and right upper quadrant, rebound tenderness, is not appreciated, involuntary guarding, is not appreciated. 16:25 Back: CVA tenderness, is absent. 16:25 Skin: cellulitis, is not appreciated, no rash present. Vital Signs: 15:51 BP 118 / 79; Pulse 73; Resp 16; Temp 98.1; Pulse Ox 100% ; Weight 78.47 kg; Height 5 ll1 ft. 6 in. ; Pain 4/10; 21:35 BP 102 / 70; Pulse 52; Pulse Ox 100% ; ha1 22:19 BP 109 / 65; Pulse 72; Resp 19 S; Pulse Ox 100% on R/A; ha1 15:51 Body Mass Index 27.92 (78.47 kg, 167.64 cm) ll1 15:51 Pain Scale: Adult ll1 MDM: 16:06 Patient medically screened. cp 17:00 Differential diagnosis: Nonspecific abd pain, gastritis, cholecystitis, pancreatitis, cp appendicitis, diverticulitis, viral gastroenteritis, gastroenteritis, colitis, GI bleed. 21:52 Data reviewed: vital signs, nurses notes, lab test result(s), radiologic studies, CT cp scan, ultrasound. 21:52 Consideration of Admission/Observation Escalation of care including cp admission/observation considered. I considered the following discharge prescriptions or medication management in the emergency department Medications were administered in the Emergency Department. See MAR. Counseling: I had a detailed discussion with the patient and/or guardian regarding: the historical points, exam findings, and any diagnostic results supporting the discharge/admit diagnosis, lab results, radiology results, the need for outpatient follow up, for definitive care, a general surgeon, to return to the emergency department if symptoms worsen or persist or if there are any questions or concerns that arise at home. Response to treatment: the patient's symptoms have markedly improved after treatment, and as a result, I will discharge patient. Special discussion: Based on the patient's Hx, exam, and Dx evaluation, there is no indication for emergent surgery or inpatient Tx. It is understood by the patient/guardian that if the Sx's persist or worsen they need to return immediately for re-evaluation. 12/02 16:09 Order name: Urinalysis W/Microscopic; Complete Time: 17:50 12/02 17:50 Interpretation: Normal except: UPH 7.5. 12/02 16:09 Order name: PREGU; Complete Time: 17:50 12/02 16:09 Order name: CBC with Diff; Complete Time: 17:50 12/02 17:50 Interpretation: Normal except: MCH 25.9; RDW 15.7; MPV 7.4. 12/02 16:09 Order name: CMP; Complete Time: 17:50 12/02 17:50 Interpretation: Normal except: NA 134; K 3.2; GFR 88; AST 12; TP 9.2; GLOB 4.4. 12/02 16:09 Order name: Lipase; Complete Time: 17:50 cp 12/02 17:50 Interpretation: Reviewed. 12/02 16:09 Order name: Rotavirus Antigen 12/02 16:09 Order name: Stool Culture 12/02 16:09 Order name: CDIFF 12/02 17:51 Order name: CT Abd/Pelvis - IV Contrast Only; Complete Time: 19:19 cp 12/02 19:20 Order name: US Abdomen Limited: gallbladder; Complete Time: 21:31 cp 12/02 21:32 Interpretation: Report reviewed. 12/02 16:09 Order name: IV Saline Lock; Complete Time: 16:39 cp 12/02 16:09 Order name: Labs collected and sent; Complete Time: 16:39 cp Administered Medications: 22:00 Drug: Potassium PO Effervescent Tablet 50 mEq Route: PO; ha1 22:24 Follow up: Response: No adverse reaction ha1 22:00 Drug: Potassium PO Effervescent Tablet 25 mEq Route: PO; ha1 22:24 Follow up: Response: No adverse reaction ha1 Disposition: 12/03 10:00 Co-signature as Attending Physician, Torrey Sanchez DO [place] was immediately available on-site ms3 in the Emergency Department for consultation in the care of the patient. Disposition Summary: 12/02/22 21:53 Discharge Ordered Location: Home cp Problem: new cp Symptoms: have improved cp Condition: Stable cp Diagnosis - Other cholelithiasis without obstruction cp - Diarrhea, unspecified cp Followup: cp - With: Skyler Gr MD - When: 1 - 2 days - Reason: gallstones Discharge Instructions: - Discharge Summary Sheet cp - Food Choices to Help Relieve Diarrhea, Adult cp - Diarrhea, Adult cp - Cholelithiasis cp Forms: - Medication Reconciliation Form cp - Thank You Letter cp - Antibiotic Education cp - Prescription Opioid Use cp Prescriptions: - Zofran 4 mg Oral Tablet - take 1 tablet by ORAL route every 12 hours As needed; 20 tablet; Refills: 0, cp Product Selection Permitted - dicyclomine 20 mg Oral Tablet - take 1 tablet by ORAL route 4 times per day As needed; 30 tablet; Refills: 0, cp Product Selection Permitted Signatures: Dispatcher [employer] EDMS Clarence Rodriguez PA PA cp Lewis, Lynsay, RN RN 1 Torrey Sanchez DO DO ms3 Cyndy Alcantar RN RN ha1
--- NOTE | 2022-12-02 21:54 | ER ---
Nurse's Notes [facility] Name: Jazmin Lott Age: 22 yrs Sex: Female : 2000 Arrival Date: 12/02/2022 Time: 15:43 Bed 20 Private MD: Diagnosis: Other cholelithiasis without obstruction;Diarrhea, unspecified Presentation: 12/02 15:51 Chief complaint: Patient states: Abdominal pain with nausea and diarrhea for 2 weeks. ll1 No fever. No appetite. Coronavirus screen: Client denies travel out of the [place] in the last 14 days. At this time, the client does not indicate any symptoms associated with coronavirus-19. Ebola Screen: Patient denies travel to an Ebola-affected area in the 21 days before illness onset. Initial Sepsis Screen: Does the patient meet any 2 criteria? No. Patient's initial sepsis screen is negative. Does the patient have a suspected source of infection? Yes: Acute abdominal pain. Risk Assessment: Do you want to hurt yourself or someone else? Patient reports no desire to harm self or others. Onset of symptoms was November 19, 2022. 15:51 Method Of Arrival: Ambulatory ll1 15:51 Acuity: ADEN 3 ll1 Triage Assessment: 15:53 General: Appears in no apparent distress. Behavior is calm, cooperative, appropriate ll1 for age. Pain: Complains of pain in abdomen Pain currently is 4 out of 10 on a pain scale. GI: Reports lower abdominal pain, upper abdominal pain, cramping, diarrhea, nausea. Historical: - Allergies: 15:53 Doxycycline; ll1 - PMHx: 15:53 depressive disorder; pelvic inflammatory disease; ll1 - PSHx: 15:53 None; ll1 - Immunization history:: Adult Immunizations up to date, Client reports having NOT received the Covid vaccine. - Social history:: Smoking status: Reported history of juuling and/or vaping. Screenin:23 Abuse screen: Denies threats or abuse. Denies injuries from another. Nutritional ha1 screening: No deficits noted. Tuberculosis screening: No symptoms or risk factors identified. Assessment: 20:02 General: Appears comfortable, Behavior is calm, cooperative. Pain: Complains of pain in ha1 abdomen Pain does not radiate. Pain currently is 4 out of 10 on a pain scale. Neuro: Level of Consciousness is awake, alert, obeys commands, Oriented to person, place, time, situation. Cardiovascular: Capillary refill < 3 seconds Patient's skin is warm and dry. Respiratory: Airway is patent Respiratory effort is even, unlabored, Respiratory pattern is regular, symmetrical. GI: Abdomen is flat, non-distended, Bowel sounds present X 4 quads. Reports diarrhea, nausea. Musculoskeletal: Circulation, motion, and sensation intact. Range of motion:. 21:00 Reassessment: Patient and/or family updated on plan of care and expected duration. Pain ha1 level reassessed. Patient is alert, oriented x 3, equal unlabored respirations, skin warm/dry/pink. 22:00 Reassessment: Patient and/or family updated on plan of care and expected duration. Pain ha1 level reassessed. Patient is alert, oriented x 3, equal unlabored respirations, skin warm/dry/pink. Vital Signs: 15:51 BP 118 / 79; Pulse 73; Resp 16; Temp 98.1; Pulse Ox 100% ; Weight 78.47 kg; Height 5 ll1 ft. 6 in. ; Pain 4/10; 21:35 BP 102 / 70; Pulse 52; Pulse Ox 100% ; ha1 22:19 BP 109 / 65; Pulse 72; Resp 19 S; Pulse Ox 100% on R/A; ha1 15:51 Body Mass Index 27.92 (78.47 kg, 167.64 cm) ll1 15:51 Pain Scale: Adult ll1 ED Course: 15:48 Patient arrived in ED. mr 15:52 Clarence Rodriguez PA is PHCP. cp 15:52 Torrey Sanchez DO is Attending Physician. cp 15:53 Triage completed. ll1 15:53 Arm band placed on. ll1 16:39 CBC with Diff Sent. mb9 16:39 CMP Sent. mb9 16:39 Lipase Sent. mb9 16:39 PREGU Sent. mb9 16:39 Urinalysis W/Microscopic Sent. mb9 16:39 Inserted saline lock: 22 gauge in left forearm, using aseptic technique. mb9 18:37 CT Abd/Pelvis - IV Contrast Only In Process Unspecified. EDMS 20:02 Patient has correct armband on for positive identification. Placed in gown. Bed in low ha1 position. Call light in reach. Side rails up X 1. 20:06 US Abdomen Limited: gallbladder In Process Unspecified. EDMS 21:35 Cyndy Alcantar, RN is Primary Nurse. ha1 21:52 Skyler Gr MD is Referral Physician. cp 22:23 No provider procedures requiring assistance completed. IV discontinued, intact, ha1 bleeding controlled, No redness/swelling at site. Pressure dressing applied. Administered Medications: 22:00 Drug: Potassium PO Effervescent Tablet 50 mEq Route: PO; ha1 22:24 Follow up: Response: No adverse reaction ha1 22:00 Drug: Potassium PO Effervescent Tablet 25 mEq Route: PO; ha1 22:24 Follow up: Response: No adverse reaction ha1 Medication: 16:39 VIS not applicable for this client. mb9 Outcome: 21:53 Discharge ordered by . cp 22:23 Discharged to home ambulatory. ha1 22:23 Condition: stable 22:23 Discharge instructions given to patient, Instructed on discharge instructions, follow up and referral plans. medication usage, Demonstrated understanding of instructions, follow-up care, medications, Prescriptions given X 2. 22:25 Patient left the ED. ha1 Signatures: Dispatcher [employer] [facility] Reji Nisreen dorado Clarence Rodriguez PA PA cp Lewis, Lynsay, RN RN ll1 Cyndy Alcantar RN RN 1 Nisreen Turner, RN RN mb9 Corrections: (The following items were deleted from the chart) 15:53 15:51 Chief complaint: Patient states: Abdominal pain with nausea and diarrhea for 2 ll1 weeks. No fever. ll1
[2022-12-02 22:12] LABS: C.diff Antigen/Toxin Ag neg : Tox neg (NEG : NEG)
[2022-12-02] MEDS ORDERED: POTASSIUM 25 MEQ EFFERV TAB ONE (22:19)
[2022-12-02 23:09] VITALS: TEMP 98.1; O2SAT 100
[2022-12-02 23:11] VITALS: BP 109/65
== END 2022-12-02 22:25 | disposition home or self-care (01) ==
LOC: ER 15:43
DX: K80.80 Other cholelithiasis without obstruction (principal); Z88.1 Allergy status to other antibiotic agents
CPT/HCPCS: 87045; 85025; 81001; 36415; 81025; 87046; 87324; 83690; 80053; 87425; 74177; 76705; Q9967

== ENCOUNTER 2022-12-30 17:21 | Emergency (ER) | payer OTHER ==
--- OUTSIDE RECORDS SUMMARY | 2022-12-30 17:39 | XMS REPORT | Continuity of Care Document ---
:2000 Author Organization [facility] t Address [address] [place] [address] Care Team Providers Name Role Phone Molina Oviedo Primary Care Physician [phone] HCARI PLASENCIA Attending Clinician Unavailable Renu Galan Attending Clinician Unavailable SAMIR BAIRD Attending Clinician Unavailable Samir Baird MD Attending Clinician Doctor Unassigned, Potter Attending Clinician Unavailable [facility], [facility] Attending Clinician Unavailable Molina Oviedo Attending Clinician MOLINA PAVON Attending Clinician Unavailable AMANDA BAHENA Attending Clinician Unavailable Jacquelyn Peace MD Attending Clinician [phone] IVAN, HERON F Attending Clinician Unavailable Heron Hadley MD Attending Clinician Travon ARENAS [facility] Attending Clinician Uriah PAYNE, Alessandro Attending Clinician [phone] Miah John DO Attending Clinician Risk, Yev-Wufar-Mk/High Attending Clinician Unavailable Espinoza [facility] Marilu [facility] Attending Clinician Indra FRAME TRIMMER, Cholo F Attending Clinician Eduardo PAYNE, Evangelist Attending Clinician Ultrasound, Ang-Mfm Attending Clinician Unavailable Gerardo Pettit MD Attending Clinician Clara Petit MD Attending Clinician GERARDO PETTIT Attending Clinician Unavailable Magdy Knutson MD Attending Clinician Alina Valle MD, Fátima Attending Clinician [phone] Rigo Petit DO Attending Clinician 1, Pea-M[facility] Us Room Attending Clinician Unavailable Lab, Pea-Rmchp Attending Clinician Unavailable [facility], Tennille L Attending Clinician [phone] Francis BARRAGANP, Bella R Attending Clinician BELLA BLANCO R Attending Clinician Unavailable Lenin Harris Attending Clinician Evangelist Schulz R Attending Clinician Bushra Conteh MD Attending Clinician Jess Friend MD Attending Clinician Josef ESCOBAR, Amanda Richards Attending Clinician Carmelina, Daryn Sewell praveen Attending Clinician Unavailable EVANGELIST CLARK Admitting Clinician Unavailable Physician, No Primary or Family Admitting Clinician Unavaila HERON Fisher Admitting Clinician Unavailable Heron Hadley MD Admitting Clinician Evangelist Clark MD Admitting Clinician Jess Friend MD Admitting Clinician Payers Payer Name Policy Type Policy Number Effective Date Expiration Date Eloise MORALEZ [id number] 2019 HEALTH 00:00:00 MEDICAID OF [place] [id number] 2019 00:00:00 Problems Condition Condition Condition Status Onset Resolution Last Treating Co mments Source Name Details Category Date Date Treatment Clinician Date 38 weeks 38 weeks Disease Active Unive rs gestation gestation 8-31 ity of of of 00:00: [place] 00 [facility] Labor Labor Disease Active Univers without without 8-31 ity of complic[place] 00 [facility] H/O H/O Disease Active Univers 8-18 ity of delivery, delivery, 00:00: Jose De Jesus miller currently currently 00 [facility] , , Bran ch third third trimester trimester Rh Rh Disease Active Univers negative negative 6-23 ity of state in state in 00:00: [place] antepartum antepartum 00 Me dical period period Branch Anemia of Anemia of Disease Active Uni vers mother in mother in 6-11 ity of , , 00:[place] antepartum antepartum 00 Me dical Branch Nausea and Nausea and Disease Active U nivers vomiting vomiting 2-10 ity of during during 00:00: [place] 00 [facility] Supervisio Supervisio Disease Active U nivers n of n of 1-13 ity of high-risk high-risk 00:00: Jose De Jesus mill[place] 00 [facility] Multiparit Multiparit Disease Active U nivers y y 1-13 ity of 00:00: [address] History of History of Disease Active U nivers 1-13 ity of delivery delivery 00:00: [address] Pain Pain Disease Active Univers pelvic pelvic 8-25 ity of 00:00: [place] [address] Medical Branch Encounter Encounter Disease Active Uni vers for IUD for IUD 2-28 ity of removal removal 00:00: [place] 00 Medical Branch Other Other Disease Active 2020- Univers general general 2-13 ity of counseling counseling 00:[place] and advice and advice 00 Me dical for for Branch contracept contracept farhat farhat management management Disease Active 2018-08 Univers (spontaneo (spontaneo 1-03 it y of us vaginal us vaginal 00:[place] delivery[place] delivery[place] 00 [facility] Single Single Disease Active 2018-08 Univers live live 1-03 ity of 00:00: [place] [address] Medical Branch Anemia, Anemia, Disease Active 2018-08 Univers 1-03 it y of 00:00: [place] [address] Medical Branch Obesity Obesity Disease Active 2018-08 Univers (BMI (BMI 1-02 ity of 30-39.9) 30-39.9) 00:00: [address] Branch 38 weeks 38 weeks Disease Active 2018-08 Unive rs gestation gestation 1-02 ity of of of 00:00: [place] 00 [facility] Obesity in Obesity in Disease Active 2018-08 U nivers 1-02 ity of 00:00: [address] Supervisio Supervisio Disease Active 2018-08 U nivers n of n of 0-29 ity of high-risk high-risk 00:[place] [facility] Multiparit Multiparit Disease Active 2018-08 U nivers y y 0-29 ity of 00:00: [address] Branch Anemia of Anemia of Disease Active 2018-08 Overview: Univers mother in mother in 0-17 Verify if i ty of , , 00:00[place] antepartum antepartum 00 is taking Medical iron/vit/ Branch pnv on next visit Vaginal Vaginal Disease Active 2019- Univers bleeding bleeding 9-10 ity of during during 00:00: [place] 00 [facility] Supervisio Supervisio Disease Active 2019 U nivers n of n of 7-16 ity of high-risk high-risk 00:[place] [facility] Round Round Disease Active 2019- Univers ligament ligament 7-16 ity of pain pain 00:00: [place] [address] Medical Branch Pyelectasi Pyelectasi Disease Active 2019 Overview : Univers s s 6-25 Left and ity of 00:00: right [place] 00 pyelectas Medical is noted Branch on usg Rh Rh Disease Active Overview: Univer s negative negative 3-19 Will need ity of state in state in 00:00: rhogam at Man as antepartum antepartum 00 28 weeks Medical period period Branch Tobacco Tobacco Disease Active Overview: Univ ers use use 3-15 Quit with ity of 00:00: [place] Medical Branch Tobacco Tobacco Disease Active Overview: Univ ers use use 3-15 Quit with ity of 00:00: [place] Medical Branch Tobacco Tobacco Disease Active Overview: Univ ers use in use in 3-15 Formattin ity of 00:00: g of this [place] 00 note Medical might be Branch different from the original. Reports 1pk/day up until 3 days ago, reports quit History of History of Disease Active Overview : Univers 3-15 Delivery ity of delivery delivery 00:00: at 35 [place] 00 weeks Medical Branch Other Other Disease Active Univers depression depression 5-14 it y of 00:00: [address] Allergies, Adverse Reactions, Alerts Allergy Allergy Status Severity Reaction(s) Onset Inactive Treating Comm ents Source Name Type Date Date Clinician doxycycl DA Active U NAUSEA/VOMIT HC A ine ING; 5-18 [place] DIZZINESS 00:00: [facility] 00 are [facility] Doxycycl Propensi Active Nausea Univer s ine ty to and/or 8-08 ity of adverse Vomiting 00:00: [place] reaction 00 Medical s [place] DOXYCYCL DRUG Active N/V Univers INE INGREDI 8-08 ity of 00:00: [address] NO KNOWN Drug Active Univers ALLERGIE Class ity of S [facility] Social History Social Habit Start Date Stop Date Quantity Comments Source ASSERTION 2020-07-28 University of 00:00:00 [facility] Exposure to 2022-12-13 2022-12-23 Not sure [facility] SARS-CoV-2 (event) 00:00:00 00:18:00 [facility] Alcohol intake 2021-04-08 2021-04-08 Current University of 00:00:00 00:00:00 non-drinker of [facility] alcohol (finding) Branch Cigarettes smoked 2020-08-20 2020-08-20 Univers ity of current (pack per 00:00:00 00:00:00 [facility] ed) - Reported Branch Tobacco use and 2020-08-20 2020-08-20 Smokeless tobacco Un iversity of exposure 00:00:00 00:00:[address] [facility] Tobacco Comment 2018-10-20 2018-10-20 was smoking 1 Univer sity of 00:00:00 00:00:00 [facility] [place] History of tobacco 2020-08-17 2018-10-06 Cigarette Smoker University of use 00:00:00 00:00:00 [facility] At 2000 [facility]00 [facility] Smoking Status Start Date Stop Date Source Ex-smoker 2020-08-20 00:00:00 2020-08-20 00:00:[address] [facility] Current every day 2020-04-01 00:00:00 [facility] smoker [facility] Medications Ordered Filled Start Stop Current Ordering Indication Dosage Frequency Signature Comments Components Source Medication Medication Date Date Medication? Clinician (SIG) Name Name ketorolac 2022- No 30mg 30 mg, Unive rs (TORADOL) 5-18 05-18 Slow IV ity of injection 07:00: 06:07 Push, [place] 30 mg 00 :00 ONCE, 1 Medical dose, On Branch Tanja 12/23/22 at 0200, Routine sodium 2022-0 Yes 5mL 5 mL, Univers chloride 5-18 Intravenou ity o f (NS) 05:27: s, PRN, [place] injection 5 30 Starting Medi carlos mL on [place] Branch 12/23/22 at 0027, Until Discontinu ed, Routine, IV line flushing dicyclomine 2022-0 Yes [id number] 20mg Take 1 Univers 20 mg 5-18 tablet by ity of tablet 00:00: mouth every 6 Medical (six) Branch hours as needed for Abdominal pain. ketorolac 2022-0 Yes [id number] 10mg Take 1 Un alex 10 mg 5-18 tablet by ity of tablet 00:00: mouth [place] [address] every 6 Medical (six) Branch hours as needed for Pain (scale 7-10). ondansetron 2023-0 Yes [id number] 4mg Take 1 Univers (ZOFRAN) 4 5-18 tablet by ity of mg tablet 00:00: mouth [place] 00 every 8 Medical (eight) Branch hours as needed for Nausea and Vomiting (N/V). sulfamethox 2020- No [id number] 1{tbl} Take 1 Univers azole-trime 04-14 tablet by it y of thoprim 00:00: 04:59 mouth 2 [place] 400-80 mg 00 :00 (two) Medical per tablet times Branch daily for 5 days. sulfamethox 2020- No [id number] 1{tbl} Take 1 Univers azole-trime 04-14 tablet by it y of thoprim 00:00: 04:59 mouth 2 [place] 400-80 mg 00 :00 (two) Medical per tablet times Branch daily for 5 days. sulfamethox 2020- No [id number] 1{tbl} Take 1 Univers azole-trime 04-14 tablet by it y of thoprim 00:00: 04:59 mouth 2 [place] 400-80 mg 00 :00 (two) Medical per tablet times Branch daily for 5 days. sulfamethox 2020- No [id number] 1{tbl} Take 1 Univers azole-trime 04-14 tablet by it y of thoprim 00:00: 04:59 mouth 2 [place] 400-80 mg 00 :00 (two) Medical per tablet times Branch daily for 5 days. sulfamethox 2020- No [id number] 1{tbl} Take 1 Univers azole-trime 04-14 tablet by it y of thoprim 00:00: 04:59 mouth 2 [place] 400-80 mg 00 :00 (two) Medical per tablet times Branch daily for 5 days. sulfamethox 2020- No [id number] 1{tbl} Take 1 Univers azole-trime 04-14 tablet by it y of thoprim 00:00: 04:59 mouth 2 [place] 400-80 mg 00 :00 (two) Medical per tablet times Branch daily for 5 days. docusate Yes [id number] 240mg Take 1 U nivers calcium 240 9- capsule by it y of mg capsule 00:00: mouth once [place] 00 daily as Medical needed for Branch Constipati on. Yes [id number] 1{tbl} Take 1 Univers vitamin 9-02 tablet by ity of w/FA tablet 00:00: mouth [place] 00 daily. Medical Branch ferrous Yes [id number] 325mg Take 1 Un alex sulfate 325 9-02 tablet by ity of mg (65 mg 00:00: mouth 2 [place] iron) 00 (two) Medical tablet times Branch daily. ibuprofen Yes [id number] 600mg Take 1 Univers 600 mg 9-02 tablet by ity of tablet 00:00: mouth [place] 00 every 6 Medical (six) Branch hours as needed (Pain). Take with food or milk. norethindro Yes [id number] .35mg Take 1 Univers ne 0.35 mg 9-02 tablet by ity of tablet 00:00: mouth [place] 00 daily. Medical Branch docusate Yes [id number] 240mg Take 1 U nivers calcium 240 9-02 capsule by it y of mg capsule 00:00: mouth once [place] 00 daily as Medical needed for Branch Constipati on. Yes [id number] 1{tbl} Take 1 Univers vitamin 9-02 tablet by ity of w/FA tablet 00:00: mouth [place] 00 daily. Medical Branch ferrous Yes [id number] 325mg Take 1 Un alex sulfate 325 9-02 tablet by ity of mg (65 mg 00:00: mouth 2 [place] iron) 00 (two) Medical tablet times Branch daily. ibuprofen Yes [id number] 600mg Take 1 Univers 600 mg 9-02 tablet by ity of tablet 00:00: mouth [place] 00 every 6 Medical (six) Branch hours as needed (Pain). Take with food or milk. norethindro Yes [id number] .35mg Take 1 Univers ne 0.35 mg 9-02 tablet by ity of tablet 00:00: mouth [place] 00 daily. Medical Branch docusate Yes [id number] 240mg Take 1 U nivers calcium 240 9-02 capsule by it y of mg capsule 00:00: mouth once [place] 00 daily as Medical needed for Branch Constipati on. 2021-0 Yes [id number] 1{tbl} Take 1 Univers vitamin 9-02 tablet by ity of w/FA tablet 00:00: mouth [place] 00 daily. Medical Branch ferrous Yes [id number] 325mg Take 1 Un alex sulfate 325 9-02 tablet by ity of mg (65 mg 00:00: mouth 2 [place] iron) 00 (two) Medical tablet times Branch daily. ibuprofen Yes [id number] 600mg Take 1 Univers 600 mg 9-02 tablet by ity of tablet 00:00: mouth [place] 00 every 6 Medical (six) Branch hours as needed (Pain). Take with food or milk. norethindro Yes [id number] .35mg Take 1 Univers ne 0.35 mg 9-02 tablet by ity of tablet 00:00: mouth [place] 00 daily. Medical Branch docusate Yes [id number] 240mg Take 1 U nivers calcium 240 9-02 capsule by it y of mg capsule 00:00: mouth once [place] 00 daily as Medical needed for Branch Constipati on. Yes [id number] 1{tbl} Take 1 Univers vitamin 9-02 tablet by ity of w/FA tablet 00:00: mouth [place] 00 daily. Medical Branch ferrous Yes [id number] 325mg Take 1 Un alex sulfate 325 9-02 tablet by ity of mg (65 mg 00:00: mouth 2 [place] iron) 00 (two) Medical tablet times Branch daily. ibuprofen Yes [id number] 600mg Take 1 Univers 600 mg 9-02 tablet by ity of tablet 00:00: mouth [place] 00 every 6 Medical (six) Branch hours as needed (Pain). Take with food or milk. norethindro Yes [id number] .35mg Take 1 Univers ne 0.35 mg 9-02 tablet by ity of tablet 00:00: mouth [place] 00 daily. Medical Branch docusate 0 Yes [id number] 240mg Take 1 U nivers calcium 240 9-02 capsule by it y of mg capsule 00:00: mouth once [place] 00 daily as Medical needed for Branch Constipati on. 0 Yes [id number] 1{tbl} Take 1 Univers vitamin 9-02 tablet by ity of w/FA tablet 00:00: mouth [place] 00 daily. Medical Branch ferrous Yes [id number] 325mg Take 1 Un alex sulfate 325 9-02 tablet by ity of mg (65 mg 00:00: mouth 2 [place] iron) 00 (two) Medical tablet times Branch daily. ibuprofen Yes [id number] 600mg Take 1 Univers 600 mg 9-02 tablet by ity of tablet 00:00: mouth [place] 00 every 6 Medical (six) Branch hours as needed (Pain). Take with food or milk. norethindro Yes [id number] .35mg Take 1 Univers ne 0.35 mg 9-02 tablet by ity of tablet 00:00: mouth [place] 00 daily. Medical Branch docusate Yes [id number] 240mg Take 1 U nivers calcium 240 9-02 capsule by it y of mg capsule 00:00: mouth once [place] 00 daily as Medical needed for Branch Constipati on. Yes [id number] 1{tbl} Take 1 Univers vitamin 9-02 tablet by ity of w/FA tablet 00:00: mouth [place] 00 daily. Medical Branch ferrous Yes [id number] 325mg Take 1 Un alex sulfate 325 9-02 tablet by ity of mg (65 mg 00:00: mouth 2 [place] iron) 00 (two) Medical tablet times Branch daily. ibuprofen Yes [id number] 600mg Take 1 Univers 600 mg 9-02 tablet by ity of tablet 00:00: mouth [place] 00 every 6 Medical (six) Branch hours as needed (Pain). Take with food or milk. norethindro Yes [id number] .35mg Take 1 Univers ne 0.35 mg 9-02 tablet by ity of tablet 00:00: mouth [place] 00 daily. Medical Branch docusate Yes [id number] 240mg Take 1 U nivers calcium 240 9-02 capsule by it y of mg capsule 00:00: mouth once [place] 00 daily as Medical needed for Branch Constipati on. 2020- Yes [id number] 1{tbl} Take 1 Univers vitamin 9-02 tablet by ity of w/FA tablet 00:00: mouth [place] 00 daily. Medical Branch ferrous Yes [id number] 325mg Take 1 Un alex sulfate 325 9-02 tablet by ity of mg (65 mg 00:00: mouth 2 [place] iron) 00 (two) Medical tablet times Branch daily. ibuprofen Yes [id number] 600mg Take 1 Univers 600 mg 9-02 tablet by ity of tablet 00:00: mouth [place] 00 every 6 Medical (six) Branch hours as needed (Pain). Take with food or milk. norethindro Yes [id number] .35mg Take 1 Univers ne 0.35 mg 9-02 tablet by ity of tablet 00:00: mouth [place] 00 daily. Medical Branch docusate Yes [id number] 240mg Take 1 U nivers calcium 240 9-02 capsule by it y of mg capsule 00:00: mouth once [place] 00 daily as Medical needed for Branch Constipati on. Yes [id number] 1{tbl} Take 1 Univers vitamin 9-02 tablet by ity of w/FA tablet 00:00: mouth [place] 00 daily. Medical Branch ferrous Yes [id number] 325mg Take 1 Un alex sulfate 325 9-02 tablet by ity of mg (65 mg 00:00: mouth 2 [place] iron) 00 (two) Medical tablet times Branch daily. ibuprofen Yes [id number] 600mg Take 1 Univers 600 mg 9-02 tablet by ity of tablet 00:00: mouth [place] 00 every 6 Medical (six) Branch hours as needed (Pain). Take with food or milk. norethindro Yes [id number] .35mg Take 1 Univers ne 0.35 mg 9-02 tablet by ity of tablet 00:00: mouth [place] 00 daily. Medical Branch docusate Yes [id number] 240mg Take 1 U nivers calcium 240 9-02 capsule by it y of mg capsule 00:00: mouth once [place] 00 daily as Medical needed for Branch Constipati on. 2020- Yes [id number] 1{tbl} Take 1 Univers vitamin 9-02 tablet by ity of w/FA tablet 00:00: mouth [place] 00 daily. Medical Branch ferrous 2020-0 Yes [id number] 325mg Take 1 Un alex sulfate 325 9-02 tablet by ity of mg (65 mg 00:00: mouth 2 [place] iron) 00 (two) Medical tablet times Branch daily. ibuprofen 2020-0 Yes [id number] 600mg Take 1 Univers 600 mg 9-02 tablet by ity of tablet 00:00: mouth [place] 00 every 6 Medical (six) Branch hours as needed (Pain). Take with food or milk. norethindro Yes [id number] .35mg Take 1 Univers ne 0.35 mg 9-02 tablet by ity of tablet 00:00: mouth [place] 00 daily. Medical Branch docusate Yes [id number] 240mg Take 1 U nivers calcium 240 9-02 capsule by it y of mg capsule 00:00: mouth once [place] 00 daily as Medical needed for Branch Constipati on. Yes [id number] 1{tbl} Take 1 Univers vitamin 9-02 tablet by ity of w/FA tablet 00:00: mouth [place] 00 daily. Medical Branch ferrous Yes [id number] 325mg Take 1 Un alex sulfate 325 9-02 tablet by ity of mg (65 mg 00:00: mouth 2 [place] iron) 00 (two) Medical tablet times Branch daily. ibuprofen Yes [id number] 600mg Take 1 Univers 600 mg 9-02 tablet by ity of tablet 00:00: mouth [place] 00 every 6 Medical (six) Branch hours as needed (Pain). Take with food or milk. norethindro Yes [id number] .35mg Take 1 Univers ne 0.35 mg 9-02 tablet by ity of tablet 00:00: mouth [place] 00 daily. Medical Branch cephALEXin 202- No [id number] 500mg Take 1 Univers 500 mg 03-15 [id number] tablet by ity o f tablet 00:00: 04:59 mouth 4 [place] 00 :00 (four) Medical times Branch daily for 7 days. ferrous Yes [id number] 325mg Take 1 Un alex sulfate 325 6-11 tablet by ity of mg (65 mg 00:00: mouth 2 [place] iron) 00 (two) Medical tablet times Branch daily. ascorbic 2020-0 Yes [id number] 500mg Take 1 U nivers acid, 6-11 tablet by ity of vitamin C, 00:00: mouth 3 [place] 500 mg 00 (three) Medical tablet times Branch daily. ferrous 2020- Yes [id number] 325mg Take 1 Un alex sulfate 325 6-11 tablet by ity of mg (65 mg 00:00: mouth 2 [place] iron) 00 (two) Medical tablet times Branch daily. ascorbic Yes [id number] 500mg Take 1 U nivers acid, 6-11 tablet by ity of vitamin C, 00:00: mouth 3 [place] 500 mg 00 (three) Medical tablet times Branch daily. ferrous Yes [id number] 325mg Take 1 Un alex sulfate 325 6-11 tablet by ity of mg (65 mg 00:00: mouth 2 [place] iron) 00 (two) Medical tablet times Branch daily. ascorbic Yes [id number] 500mg Take 1 U nivers acid, 6-11 tablet by ity of vitamin C, 00:00: mouth 3 [place] 500 mg 00 (three) Medical tablet times Branch daily. ferrous Yes [id number] 325mg Take 1 Un alex sulfate 325 6-11 tablet by ity of mg (65 mg 00:00: mouth 2 [place] iron) 00 (two) Medical tablet times Branch daily. ascorbic Yes [id number] 500mg Take 1 U nivers acid, 6-11 tablet by ity of vitamin C, 00:00: mouth 3 [place] 500 mg 00 (three) Medical tablet times Branch daily. ferrous Yes [id number] 325mg Take 1 Un alex sulfate 325 6-11 tablet by ity of mg (65 mg 00:00: mouth 2 [place] iron) 00 (two) Medical tablet times Branch daily. ascorbic Yes [id number] 500mg Take 1 U nivers acid, 6-11 tablet by ity of vitamin C, 00:00: mouth 3 [place] 500 mg 00 (three) Medical tablet times Branch daily. ferrous Yes [id number] 325mg Take 1 Un alex sulfate 325 6-11 tablet by ity of mg (65 mg 00:00: mouth 2 [place] iron) 00 (two) Medical tablet times Branch daily. ascorbic Yes [id number] 500mg Take 1 U nivers acid, 6-11 tablet by ity of vitamin C, 00:00: mouth 3 [place] 500 mg 00 (three) Medical tablet times Branch daily. ferrous Yes [id number] 325mg Take 1 Un alex sulfate 325 6-11 tablet by ity of mg (65 mg 00:00: mouth 2 [place] iron) 00 (two) Medical tablet times Branch daily. ascorbic Yes [id number] 500mg Take 1 U nivers acid, 6-11 tablet by ity of vitamin C, 00:00: mouth 3 [place] 500 mg 00 (three) Medical tablet times Branch daily. ferrous Yes [id number] 325mg Take 1 Un alex sulfate 325 6-11 tablet by ity of mg (65 mg 00:00: mouth 2 [place] iron) 00 (two) Medical tablet times Branch daily. ascorbic Yes [id number] 500mg Take 1 U nivers acid, 6-11 tablet by ity of vitamin C, 00:00: mouth 3 [place] 500 mg 00 (three) Medical tablet times Branch daily. ferrous Yes [id number] 325mg Take 1 Un alex sulfate 325 6-11 tablet by ity of mg (65 mg 00:00: mouth 2 [place] iron) 00 (two) Medical tablet times Branch daily. ascorbic Yes [id number] 500mg Take 1 U nivers acid, 6-11 tablet by ity of vitamin C, 00:00: mouth 3 [place] 500 mg 00 (three) Medical tablet times Branch daily. ferrous Yes [id number] 325mg Take 1 Un alex sulfate 325 6-11 tablet by ity of mg (65 mg 00:00: mouth 2 [place] iron) 00 (two) Medical tablet times Branch daily. ascorbic Yes [id number] 500mg Take 1 U nivers acid, 6-11 tablet by ity of vitamin C, 00:00: mouth 3 [place] 500 mg 00 (three) Medical tablet times Branch daily. ferrous Yes [id number] 325mg Take 1 Un alex sulfate 325 6-11 tablet by ity of mg (65 mg 00:00: mouth 2 [place] iron) 00 (two) Medical tablet times Branch daily. ascorbic Yes [id number] 500mg Take 1 U nivers acid, 6-11 tablet by ity of vitamin C, 00:00: mouth 3 [place] 500 mg 00 (three) Medical tablet times Branch daily. ascorbic Yes [id number] 500mg Take 1 U nivers acid, 6-11 tablet by ity of vitamin C, 00:00: mouth 3 [place] 500 mg 00 (three) Medical tablet times Branch daily. ascorbic Yes [id number] 500mg Take 1 U nivers acid, 6-11 tablet by ity of vitamin C, 00:00: mouth 3 [place] 500 mg 00 (three) Medical tablet times Branch daily. ascorbic Yes [id number] 500mg Take 1 U nivers acid, 6-11 tablet by ity of vitamin C, 00:00: mouth 3 [place] 500 mg 00 (three) Medical tablet times Branch daily. ascorbic Yes [id number] 500mg Take 1 U nivers acid, 6-11 tablet by ity of vitamin C, 00:00: mouth 3 [place] 500 mg 00 (three) Medical tablet times Branch daily. ascorbic Yes [id number] 500mg Take 1 U nivers acid, 6-11 tablet by ity of vitamin C, 00:00: mouth 3 [place] 500 mg 00 (three) Medical tablet times Branch daily. ascorbic Yes [id number] 500mg Take 1 U nivers acid, 6-11 tablet by ity of vitamin C, 00:00: mouth 3 [place] 500 mg 00 (three) Medical tablet times Branch daily. ascorbic Yes [id number] 500mg Take 1 U nivers acid, 6-11 tablet by ity of vitamin C, 00:00: mouth 3 [place] 500 mg 00 (three) Medical tablet times Branch daily. ascorbic Yes [id number] 500mg Take 1 U nivers acid, 6-11 tablet by ity of vitamin C, 00:00: mouth 3 [place] 500 mg 00 (three) Medical tablet times Branch daily. ascorbic Yes [id number] 500mg Take 1 U nivers acid, 6-11 tablet by ity of vitamin C, 00:00: mouth 3 [place] 500 mg 00 (three) Medical tablet times Branch daily. ascorbic Yes [id number] 500mg Take 1 U nivers acid, 6-11 tablet by ity of vitamin C, 00:00: [place] 500 mg 00 (three) Medical tablet times Branch daily. ascorbic Yes [id number] 500mg Take 1 [facility] n[facility] acid, 6-11 tablet by it[facility] of vitamin C, 00:00: mouth [place] 500 mg 00 (three) Medical tablet times Branch daily. ascorbic Yes [id number] 500mg Take 1 U nivers acid, 6-11 tablet by ity of vitamin C, 00:00: mouth [place] 500 mg 00 (three) Medical tablet times Branch daily. ascorbic Yes [id number] 500mg Take 1 [facility] nivers acid, 6-11 tablet by ity of vitamin C, 00:00: mouth [place] 500 mg 00 (three) Medical tablet times Branch daily. ascorbic 0 Yes [id number] 500mg Take 1 U nivers acid, 6-11 tablet by ity of vitamin C, 00:00: mouth [place] 500 mg 00 (three) Medical tablet times Branch daily. ferrous 2020- No [id number] 325mg Take 1 U nivers sulfate 325 [...] Medical on nasal Branch spray HYDROXYprog Yes [id number] 250mg [facility](PF)(pre 4-07 ity of g presv) 19:40: [place] ([facility]) 00 Medical 250 mg/mL Branch (1 mL) injection 250 mg HYDROXYprog 0 Yes [id number] 250mg 250 mg, [facility] est(PF)(pre -07 [facility] g presv) 19:40: lar, [place] ([facility]) 00 QWEEKLY, Medical 250 mg/mL First dose Bran ch (1 mL) on Wed injection 11/12/20 at 250 mg 1445, Until Discontinu ed, Routine HYDROXYprog 0 Yes [id number] 250mg [facility] est(PF)(pre 4-07 ity of g presv) 19:40: [place] ([facility]) 00 Medical 250 mg/mL Branch (1 mL) injection 250 mg HYDROXYprog 0 Yes [id number] 250mg 250 mg, [facility] est(PF)(pre 11-12 [facility] g presv) 19:40: [place] ([facility]) 00 QWEEKLY, Medical 250 mg/mL First dose Bran ch (1 mL) on Wed injection 11/12/20 at 250 mg 1445, Until Discontinu ed, Routine HYDROXYprog 2021-0 Yes [id number] 250mg [facility] est(PF)(pre - ity of g presv) 19:40: [place] ([facility]) 00 Medical 250 mg/mL Branch (1 mL) injection 250 mg HYDROXYprog 2021-0 Yes [id number] 250mg [facility] est(PF)(pre - ity of g presv) 19:40: [place] ([facility]) 00 Medical 250 mg/mL Branch (1 mL) injection 250 mg HYDROXYprog 2021-0 Yes [id number] 250mg [facility] est(PF)(pre 11-12 ity of g presv) 19:40: [place] ([facility]) 00 Medical 250 mg/mL Branch (1 mL) injection 250 mg HYDROXYprog 2021-0 Yes [id number] 250mg 250 mg, [facility] est(PF)(pre 11-12 [facility] g presv) 19:40: [place] ([facility]) 00 QWEEKLY, Medical 250 mg/mL First dose Bran ch (1 mL) on Wed injection 11/12/20 at 250 mg 1445, Until Discontinu ed, Routine HYDROXYprog 2021-0 Yes [id number] 250mg [facility] est(PF)(pre 11-12 ity of g presv) 19:40: [place] ([facility]) 00 Medical 250 mg/mL Branch (1 mL) injection 250 mg HYDROXYprog 2021-0 Yes [id number] 250mg [facility] est(PF)(pre - ity of g presv) 19:40: [place] ([facility]) 00 Medical 250 mg/mL Branch (1 mL) injection 250 mg HYDROXYprog 2021-0 Yes [id number] 250mg 250 mg, [facility] est(PF)(pre - [facility] g presv) 19:40: lar, [place] ([facility]) 00 QWEEKLY, Medical 250 mg/mL First dose Bran ch (1 mL) on Wed injection 11/12/20 at 250 mg 1445, Until Discontinu ed, Routine HYDROXYprog 2021-0 Yes [id number] 250mg [facility] est(PF)(pre 4-07 ity of g presv) 19:40: [place] ([facility]) 00 Medical 250 mg/mL Branch (1 mL) injection 250 mg HYDROXYprog 2021-0 Yes [id number] 250mg [facility] est(PF)(pre 4-07 ity of g presv) 19:40: [place] ([facility]) 00 Medical 250 mg/mL Branch (1 mL) injection 250 mg HYDROXYprog 2021-0 Yes [id number] 250mg 250 mg, [facility] est(PF)(pre 4-07 [facility] g presv) 19:40: lar [place] ([facility]) 00 QWEEKLY, Medical 250 mg/mL First dose Bran ch (1 mL) on Wed injection 11/12/20 at 250 mg 1445, Until Discontinu ed, Routine HYDROXYprog 2021-0 Yes [id number] 250mg [facility] est(PF)(pre - ity of g presv) 19:40: [place] ([facility]) 00 Medical 250 mg/mL Branch (1 mL) injection 250 mg HYDROXYprog 2021-0 Yes [id number] 250mg [facility] est(PF)(pre 4- ity of g presv) 19:40: [place] ([facility]) 00 Medical 250 mg/mL Branch (1 mL) injection 250 mg HYDROXYprog 2021-0 Yes [id number] 250mg 250 mg, [facility] est(PF)(pre - [facility] g presv) 19:40: lar, [place] ([facility]) 00 QWEEKLY, Medical 250 mg/mL First dose Bran ch (1 mL) on Wed injection 11/12/20 at 250 mg 1445, Until Discontinu ed, Routine HYDROXYprog 2021-0 Yes [id number] 250mg [facility] est(PF)(pre 4-07 ity of g presv) 19:40: [place] ([facility]) 00 Medical 250 mg/mL Branch (1 mL) injection 250 mg HYDROXYprog 2021-0 Yes [id number] 250mg [facility] est(PF)(pre 4-07 ity of g presv) 19:40: [place] ([facility]) 00 Medical 250 mg/mL Branch (1 mL) injection 250 mg HYDROXYprog 2021-0 Yes [id number] 250mg [facility] est(PF)(pre 4-07 ity of g presv) 19:40: [place] ([facility]) 00 Medical 250 mg/mL Branch (1 mL) injection 250 mg HYDROXYprog 2021-0 Yes [id number] 250mg 250 mg, [facility] est(PF)(pre 4-07 [facility] g presv) 19:40: lar, [place] ([facility]) 00 QWEEKLY, Medical 250 mg/mL First dose Bran ch (1 mL) on Wed injection 11/12/20 at 250 mg 1445, Until Discontinu ed, Routine HYDROXYprog 2021-0 Yes [id number] 250mg [facility] est(PF)(pre - ity of g presv) 19:40: [place] ([facility]) 00 Medical 250 mg/mL Branch (1 mL) injection 250 mg HYDROXYprog 2021-0 Yes [id number] 250mg [facility] est(PF)(pre - ity of g presv) 19:40: [place] ([facility]) 00 Medical 250 mg/mL Branch (1 mL) injection 250 mg HYDROXYprog 2021-0 Yes [id number] 250mg 250 mg, [facility] est(PF)(pre 11-12 [facility] it y of g presv) 19:40: lar, [place] ([facility]) 00 QWEEKLY, Medical 250 mg/mL First dose Bran ch (1 mL) on Wed injection 11/12/20 at 250 mg 1445, Until Discontinu ed, Routine HYDROXYprog 2021-0 Yes [id number] 250mg [facility] est(PF)(pre - ity of g presv) 19:40: [place] ([facility]) 00 Medical 250 mg/mL Branch (1 mL) injection 250 mg HYDROXYprog 2021-0 Yes [id number] 250mg [facility] est(PF)(pre - ity of g presv) 19:40: [place] ([facility]) 00 Medical 250 mg/mL Branch (1 mL) injection 250 mg HYDROXYprog 2021-0 Yes [id number] 250mg 250 mg, [facility] est(PF)(pre - [facility] y of g presv) 19:40: lar, [place] ([facility]) 00 QWEEKLY, Medical 250 mg/mL First dose Bran ch (1 mL) on Wed injection 11/12/20 at 250 mg 1445, Until Discontinu ed, Routine HYDROXYprog 2021-0 Yes [id number] 250mg [facility] est(PF)(pre 4- ity of g presv) 19:40: [place] ([facility]) 00 Medical 250 mg/mL Branch (1 mL) injection 250 mg HYDROXYprog 2021-0 Yes [id number] 250mg [facility] est(PF)(pre 4- ity of g presv) 19:40: [place] ([facility]) 00 Medical 250 mg/mL Branch (1 mL) injection 250 mg HYDROXYprog 2021-0 Yes [id number] 250mg [facility] est(PF)(pre 4- ity of g presv) 19:40: [place] ([facility]) 00 Medical 250 mg/mL Branch (1 mL) injection 250 mg HYDROXYprog 2021-0 Yes [id number] 250mg [facility] est(PF)(pre - ity of g presv) 19:40: [place] ([facility]) 00 Medical 250 mg/mL Branch (1 mL) injection 250 mg HYDROXYprog 2021-0 Yes [id number] 250mg 250 mg, [facility] est(PF)(pre - Intr[facility] y of g presv) 19:40: lar, [place] ([facility]) 00 QWEEKLY, Medical 250 mg/mL First dose Bran ch (1 mL) on Wed injection 11/12/20 at 250 mg 1445, Until Discontinu ed, Routine HYDROXYprog 2021-0 Yes [id number] 250mg [facility] est(PF)(pre - ity of g presv) 19:40: [place] ([facility]) 00 Medical 250 mg/mL Branch (1 mL) injection 250 mg HYDROXYprog 2021-0 Yes [id number] 250mg 250 mg, [facility] est(PF)(pre - Intr[facility] y of g presv) 19:40: lar, [place] ([facility]) 00 QWEEKLY, Medical 250 mg/mL First dose Bran ch (1 mL) on Wed injection 11/12/20 at 250 mg 1445, Until Discontinu ed, Routine HYDROXYprog 2021-0 Yes [id number] 250mg [facility] est(PF)(pre 4- ity of g presv) 19:40: [place] ([facility]) 00 Medical 250 mg/mL Branch (1 mL) injection 250 mg HYDROXYprog 2021-0 Yes [id number] 250mg 250 mg, [facility] est(PF)(pre 4-07 Intr[facility] it y of g presv) 19:40: lar, [place] ([facility]) 00 QWEEKLY, Medical 250 mg/mL First dose Bran ch (1 mL) on Tue injection 11/12/20 at 250 mg 1445, Until Discontinu ed, Routine HYDROXYprog 2021-0 Yes [id number] 250mg [facility] est(PF)(pre 4-07 ity of g presv) 19:40: [place] ([facility]) 00 Medical 250 mg/mL Branch (1 mL) injection 250 mg HYDROXYprog 2021-0 Yes [id number] 250mg 250 mg, [facility] est(PF)(pre 4- [facility] y of g presv) 19:40: ana [place] ([facility]) 00 QWEEKLY, Medical 250 mg/mL First dose Bran ch (1 mL) on Tue injection 11/12/20 at 250 mg 1445, Until Discontinu ed, Routine HYDROXYprog 2021-0 Yes [id number] 250mg [facility] est(PF)(pre 4-07 ity of g presv) 19:40: [place] ([facility]) 00 Medical 250 mg/mL Branch (1 mL) injection 250 mg HYDROXYprog 2021-0 Yes [id number] 250mg [facility] est(PF)(pre 4-07 ity of g presv) 19:40: [place] ([facility]) 00 Medical 250 mg/mL Branch (1 mL) injection 250 mg HYDROXYprog 2021-0 Yes [id number] 250mg [facility] est(PF)(pre 4-07 ity of g presv) 19:40: [place] ([facility]) 00 Medical 250 mg/mL Branch (1 mL) injection 250 mg HYDROXYprog 2021-0 Yes [id number] 250mg [facility] est(PF)(pre 4-07 ity of g presv) 19:40: [place] ([facility]) 00 Medical 250 mg/mL Branch (1 mL) injection 250 mg HYDROXYprog 2021-0 Yes [id number] 250mg [facility] est(PF)(pre 4-07 ity of g presv) 19:40: [place] ([facility]) 00 Medical 250 mg/mL Branch (1 mL) injection 250 mg HYDROXYprog 2021-0 Yes [id number] 250mg [facility] est(PF)(pre - ity of g presv) 19:40: [place] [facility]) 00 Medical 250 mg/mL Branch (1 mL) injection 250 mg HYDROXYprog 2021-0 Yes [id number] 250mg 250 mg, [facility] est(PF)(pre 11-12 Intramus[facility] it y of g presv) 19:40: ana [place] [facility]) 00 QWEEKLY, Medical 250 mg/mL First dose Bran ch (1 mL) on Wed injection 11/12/20 at 250 mg 1445, Until Discontinu ed, Routine HYDROXYprog 2021-0 Yes [id number] 250mg [facility] est(PF)(pre 11-12 ity of g presv) 19:40: [place] [facility]) 00 Medical 250 mg/mL Branch (1 mL) injection 250 mg HYDROXYprog 2021-0 Yes [id number] 250mg 250 mg, [facility] est(PF)(pre 11-12 Intramuscu it y of g presv) 19:40: ana [place] ([facility]) 00 QWEEKLY, Medical 250 mg/mL First dose Bran ch (1 mL) on Wed injection 11/12/20 at 250 mg 1445, Until Discontinu ed, Routine HYDROXYprog 2021-0 Yes [id number] 250mg [facility] est(PF)(pre 11-12 ity of g presv) 19:40: [place] [facility]) 00 Medical 250 mg/mL Branch (1 mL) injection 250 mg HYDROXYprog 2021-0 Yes [id number] 250mg 250 mg, [facility] est(PF)(pre 11-12 Intramuscu it y of g presv) 19:40: ana [place] ([facility]) 00 QWEEKLY, Medical 250 mg/mL First dose Bran ch (1 mL) on Wed injection 11/12/20 at 250 mg 1445, Until Discontinu ed, Routine HYDROXYprog 2021-0 Yes [id number] 250mg [facility] est(PF)(pre - ity of g presv) 19:40: [place] [facility]) 00 Medical 250 mg/mL Branch (1 mL) injection 250 mg HYDROXYprog 2021-0 Yes [id number] 250mg 250 mg, [facility] est(PF)(pre - Intramuscu it y of g presv) 19:40: ana [place] ([facility]) 00 QWEEKLY, Medical 250 mg/mL First dose Bran ch (1 mL) on Wed injection 11/12/20 at 250 mg 1445, Until Discontinu ed, Routine HYDROXYprog 2021-0 Yes [id number] 250mg [facility] est(PF)(pre - ity of g presv) 19:40: [place] ([facility]) 00 Medical 250 mg/mL Branch (1 mL) injection 250 mg HYDROXYprog 2021-0 Yes [id number] 250mg 250 mg, [facility] est(PF)(pre 11-12 Intramuscu it y of g presv) 19:40: ana [place] ([facility]) 00 QWEEKLY, Medical 250 mg/mL First dose Bran ch (1 mL) on Wed injection 11/12/20 at 250 mg 1445, Until Discontinu ed, Routine HYDROXYprog 2021-0 Yes [id number] 250mg [facility] est(PF)(pre 11-12 ity of g presv) 19:40: [place] ([facility]) 00 Medical 250 mg/mL Branch (1 mL) injection 250 mg HYDROXYprog 2021-0 Yes [id number] 250mg 250 mg, [facility] est(PF)(pre 11-12 Intramuscu it y of g presv) 19:40: [place] ([facility]) 00 QWEEKLY, Medical 250 mg/mL First dose Bran ch (1 mL) on Wed injection 11/12/20 at 250 mg 1445, Until Discontinu ed, Routine HYDROXYprog 2021-0 Yes [id number] 250mg [facility] est(PF)(pre 11-12 ity of g presv) 19:40: [place] ([facility]) 00 Medical 250 mg/mL Branch (1 mL) injection 250 mg HYDROXYprog 2021-0 Yes [id number] 250mg 250 mg, [facility] est(PF)(pre 11-12 Intramuscu it y of g presv) 19:40: [place] ([facility]) 00 QWEEKLY, Medical 250 mg/mL First dose Bran ch (1 mL) on Wed injection 11/12/20 at 250 mg 1445, Until Discontinu ed, Routine HYDROXYprog 2021-0 Yes [id number] 250mg [facility] est(PF)(pre -07 ity of g presv) 19:40: [place] ([facility]) 00 Medical 250 mg/mL Branch (1 mL) injection 250 mg HYDROXYprog 2021-0 Yes [id number] 250mg 250 mg, [facility] est(PF)(pre - Intramus[facility] it y of g presv) 19:40: ana [place] ([facility]) 00 QWEEKLY, Medical 250 mg/mL First dose Bran ch (1 mL) on Tue injection 11/12/20 at 250 mg 1445, Until Discontinu ed, Routine HYDROXYprog 2021-0 Yes [id number] 250mg [facility] est(PF)(pre 4- ity of g presv) 19:40: [place] ([facility]) 00 Medical 250 mg/mL Branch (1 mL) injection 250 mg HYDROXYprog 2021-0 Yes [id number] 250mg 250 mg, [facility] est(PF)(pre 11-12 Intramuscu it y of g presv) 19:40: ana [place] ([facility]) 00 QWEEKLY, Medical 250 mg/mL First dose Bran ch (1 mL) on Wed injection 11/12/20 at 250 mg 1445, Until Discontinu ed, Routine HYDROXYprog 2021-0 Yes [id number] 250mg [facility] est(PF)(pre 4- ity of g presv) 19:40: [place] ([facility]) 00 Medical 250 mg/mL Branch (1 mL) injection 250 mg HYDROXYprog 2021-0 Yes [id number] 250mg [facility] est(PF)(pre 4-07 ity of g presv) 19:40: [place] ([facility]) 00 Medical 250 mg/mL Branch (1 mL) injection 250 mg HYDROXYprog 2021-0 Yes [id number] 250mg [facility] est(PF)(pre 4-07 ity of g presv) 19:40: [place] ([facility]) 00 Medical 250 mg/mL Branch (1 mL) injection 250 mg HYDROXYprog 2021-0 Yes [id number] 250mg [facility] est(PF)(pre 4-07 ity of g presv) 19:40: [place] ([facility]) 00 Medical 250 mg/mL Branch (1 mL) injection 250 mg HYDROXYprog 2021-0 Yes [id number] 250mg [facility] est(PF)(pre 4-07 ity of g presv) 19:40: [place] ([facility]) 00 Medical 250 mg/mL Branch (1 mL) injection 250 mg proMETHazin 2020-0 Yes [id number] 25mg Take 1 Univers e 25 mg 2-18 tablet by ity of tablet 00:00: mouth [place] 00 every 6 Medical (six) Branch hours as needed for Nausea and Vomiting (N/V). proMETHazin 2020-0 Yes [id number] 25mg Take 1 Univers e 25 mg 2-18 tablet by ity of tablet 00:00: mouth [place] 00 every 6 Medical (six) Branch hours as needed for Nausea and Vomiting (N/V). proMETHazin 2020-0 Yes [id number] 25mg Take 1 Univers e 25 mg 2-18 tablet by ity of tablet 00:00: mouth [place] 00 every 6 Medical (six) Branch hours as needed for Nausea and Vomiting (N/V). proMETHazin 2020-0 Yes [id number] 25mg Take 1 Univers e 25 mg 2-18 tablet by ity of tablet 00:00: mouth [place] 00 every 6 Medical (six) Branch hours as needed for Nausea and Vomiting (N/V). proMETHazin 2020-0 Yes [id number] 25mg Take 1 Univers e 25 mg 2-18 tablet by ity of tablet 00:00: mouth [place] 00 every 6 Medical (six) Branch hours as needed for Nausea and Vomiting (N/V). proMETHazin 2020-0 Yes [id number] 25mg Take 1 Univers e 25 mg 2-18 tablet by ity of tablet 00:00: mouth [place] 00 every 6 Medical (six) Branch hours as needed for Nausea and Vomiting (N/V). proMETHazin 2020-0 Yes [id number] 25mg Take 1 Univers e 25 mg 2-18 tablet by ity of tablet 00:00: mouth [place] 00 every 6 Medical (six) Branch hours as needed for Nausea and Vomiting (N/V). proMETHazin 2020-0 Yes [id number] 25mg Take 1 Univers e 25 mg 2-18 tablet by ity of tablet 00:00: mouth [place] 00 every 6 Medical (six) Branch hours as needed for Nausea and Vomiting (N/V). proMETHazin 2020-0 Yes [id number] 25mg Take 1 Univers e 25 mg 2-18 tablet by ity of tablet 00:00: mouth [place] 00 every 6 Medical (six) Branch hours as needed for Nausea and Vomiting (N/V). proMETHazin 1-0 Yes [id number] 25mg Take 1 Univers e 25 mg 2-18 tablet by ity of tablet 00:00: mouth [place] 00 every 6 Medical (six) Branch hours as needed for Nausea and Vomiting (N/V). proMETHazin 2020-0 Yes [id number] 25mg Take 1 Univers e 25 mg 2-18 tablet by ity of tablet 00:00: mouth [place] 00 every 6 Medical (six) Branch hours as needed for Nausea and Vomiting (N/V). proMETHazin 2020-0 Yes [id number] 25mg Take 1 Univers e 25 mg 2-18 tablet by ity of tablet 00:00: mouth [place] 00 every 6 Medical (six) Branch hours as needed for Nausea and Vomiting (N/V). proMETHazin 2020-0 Yes [id number] 25mg Take 1 Univers e 25 mg 2-18 tablet by ity of tablet 00:00: mouth [place] 00 every 6 Medical (six) Branch hours as needed for Nausea and Vomiting (N/V). proMETHazin 2020-0 Yes [id number] 25mg Take 1 Univers e 25 mg 2-18 tablet by ity of tablet 00:00: mouth [place] 00 every 6 Medical (six) Branch hours as needed for Nausea and Vomiting (N/V). proMETHazin 2020-0 Yes [id number] 25mg Take 1 Univers e 25 mg 2-18 tablet by ity of tablet 00:00: mouth [place] 00 every 6 Medical (six) Branch hours as needed for Nausea and Vomiting (N/V). proMETHazin 2020-0 Yes [id number] 25mg Take 1 Univers e 25 mg 2-18 tablet by ity of tablet 00:00: mouth [place] 00 every 6 Medical (six) Branch hours as needed for Nausea and Vomiting (N/V). proMETHazin 2020-0 Yes [id number] 25mg Take 1 Univers e 25 mg 2-18 tablet by ity of tablet 00:00: mouth [place] 00 every 6 Medical (six) Branch hours as needed for Nausea and Vomiting (N/V). proMETHazin 1-0 Yes [id number] 25mg Take 1 Univers e 25 mg 2-18 tablet by ity of tablet 00:00: mouth [place] 00 every 6 Medical (six) Branch hours as needed for Nausea and Vomiting (N/V). proMETHazin 2020-0 Yes [id number] 25mg Take 1 Univers e 25 mg 2-18 tablet by ity of tablet 00:00: mouth [place] 00 every 6 Medical (six) Branch hours as needed for Nausea and Vomiting (N/V). proMETHazin 2020-0 Yes [id number] 25mg Take 1 Univers e 25 mg 2-18 tablet by ity of tablet 00:00: mouth [place] 00 every 6 Medical (six) Branch hours as needed for Nausea and Vomiting (N/V). proMETHazin 2020-0 Yes [id number] 25mg Take 1 Univers e 25 mg 2-18 tablet by ity of tablet 00:00: mouth [place] 00 every 6 Medical (six) Branch hours as needed for Nausea and Vomiting (N/V). proMETHazin 2020-0 Yes [id number] 25mg Take 1 Univers e 25 mg 2-18 tablet by ity of tablet 00:00: mouth [place] 00 every 6 Medical (six) Branch hours as needed for Nausea and Vomiting (N/V). proMETHazin 2020-0 Yes [id number] 25mg Take 1 Univers e 25 mg 2-18 tablet by ity of tablet 00:00: mouth [place] 00 every 6 Medical (six) Branch hours as needed for Nausea and Vomiting (N/V). proMETHazin 2020-0 Yes [id number] 25mg Take 1 Univers e 25 mg 2-18 tablet by ity of tablet 00:00: mouth [place] 00 every 6 Medical (six) Branch hours as needed for Nausea and Vomiting (N/V). proMETHazin 2020-0 Yes [id number] 25mg Take 1 Univers e 25 mg 2-18 tablet by ity of tablet 00:00: mouth [place] 00 every 6 Medical (six) Branch hours as needed for Nausea and Vomiting (N/V). proMETHazin 2020-0 Yes [id number] 25mg Take 1 Univers e 25 mg 2-18 tablet by ity of tablet 00:00: mouth [place] 00 every 6 Medical (six) Branch hours as needed for Nausea and Vomiting (N/V). proMETHazin 2020-0 Yes [id number] 25mg Take 1 Univers e 25 mg 2-18 tablet by ity of tablet 00:00: mouth [place] 00 every 6 Medical (six) Branch hours as needed for Nausea and Vomiting (N/V). proMETHazin 2020-0 Yes [id number] 25mg Take 1 Univers e 25 mg 2-18 tablet by ity of tablet 00:00: mouth [place] 00 every 6 Medical (six) Branch hours as needed for Nausea and Vomiting (N/V). proMETHazin 2020-0 Yes [id number] 25mg Take 1 Univers e 25 mg 2-18 tablet by ity of tablet 00:00: mouth [place] 00 every 6 Medical (six) Branch hours as needed for Nausea and Vomiting (N/V). proMETHazin 2020-0 Yes [id number] 25mg Take 1 Univers e 25 mg 2-18 tablet by ity of tablet 00:00: mouth [place] 00 every 6 Medical (six) Branch hours as needed for Nausea and Vomiting (N/V). proMETHazin 2020-0 Yes [id number] 25mg Take 1 Univers e 25 mg 2-18 tablet by ity of tablet 00:00: mouth [place] 00 every 6 Medical (six) Branch hours as needed for Nausea and Vomiting (N/V). proMETHazin 2020-0 Yes [id number] 25mg Take 1 Univers e 25 mg 2-18 tablet by ity of tablet 00:00: mouth [place] 00 every 6 Medical (six) Branch hours as needed for Nausea and Vomiting (N/V). proMETHazin 2020-0 Yes [id number] 25mg Take 1 Univers e 25 mg 2-18 tablet by ity of tablet 00:00: mouth [place] 00 every 6 Medical (six) Branch hours as needed for Nausea and Vomiting (N/V). proMETHazin 2020-0 Yes [id number] 25mg Take 1 Univers e 25 mg 2-18 tablet by ity of tablet 00:00: mouth [place] 00 every 6 Medical (six) Branch hours as needed for Nausea and Vomiting (N/V). proMETHazin 2020-0 Yes [id number] 25mg Take 1 Univers e 25 mg 2-18 tablet by ity of tablet 00:00: mouth [place] 00 every 6 Medical (six) Branch hours as needed for Nausea and Vomiting (N/V). proMETHazin 2020-0 Yes [id number] 25mg Take 1 Univers e 25 mg 2-18 tablet by ity of tablet 00:00: mouth [place] 00 every 6 Medical (six) Branch hours as needed for Nausea and Vomiting (N/V). proMETHazin 2020-0 Yes [id number] 25mg Take 1 Univers e 25 mg 2-18 tablet by ity of tablet 00:00: mouth [place] 00 every 6 Medical (six) Branch hours as needed for Nausea and Vomiting (N/V). proMETHazin 2020-0 Yes [id number] 25mg Take 1 Univers e 25 mg 2-18 tablet by ity of tablet 00:00: mouth [place] 00 every 6 Medical (six) Branch hours as needed for Nausea and Vomiting (N/V). proMETHazin 2020-0 Yes [id number] 25mg Take 1 Univers e 25 mg 2-18 tablet by ity of tablet 00:00: mouth [place] 00 every 6 Medical (six) Branch hours as needed for Nausea and Vomiting (N/V). proMETHazin 2020-0 Yes [id number] 25mg Take 1 Univers e 25 mg 2-18 tablet by ity of tablet 00:00: mouth [place] 00 every 6 Medical (six) Branch hours as needed for Nausea and Vomiting (N/V). proMETHazin 0 Yes [id number] 25mg Take 1 Univers e 25 mg 2-18 tablet by ity of tablet 00:00: mouth [place] 00 every 6 Medical (six) Branch hours as needed for Nausea and Vomiting (N/V). proMETHazin 2020-0 Yes [id number] 25mg Take 1 Univers e 25 mg 2-18 tablet by ity of tablet 00:00: mouth [place] 00 every 6 Medical (six) Branch hours as needed for Nausea and Vomiting (N/V). proMETHazin 2020-0 Yes [id number] 25mg Take 1 Univers e 25 mg 2-18 tablet by ity of tablet 00:00: mouth [place] 00 every 6 Medical (six) Branch hours as needed for Nausea and Vomiting (N/V). proMETHazin 2020-0 Yes [id number] 25mg Take 1 [facility] e 25 mg 2-18 tablet by ity of tablet 00:00: mouth [place] 00 every 6 Medical (six) Branch hours as needed for Nausea and Vomiting (N/V). proMETHazin 2020-0 Yes [id number] 25mg Take 1 [facility] e 25 mg 2-18 tablet by ity of tablet 00:00: mouth [place] 00 every 6 Medical (six) Branch hours as needed for Nausea and Vomiting (N/V). proMETHazin 2020-0 Yes [id number] 25mg Take 1 [facility] e 25 mg 2-18 tablet by ity of tablet 00:00: mouth [place] 00 every 6 Medical (six) Branch hours as needed for Nausea and Vomiting (N/V). proMETHazin 2020-0 Yes [id number] 25mg Take 1 [facility] e 25 mg 2-18 tablet by ity of tablet 00:00: mouth [place] 00 every 6 Medical (six) Branch hours as needed for Nausea and Vomiting (N/V). proMETHazin 2020-0 Yes [id number] 25mg Take 1 [facility] e 25 mg 2-18 tablet by ity of tablet 00:00: mouth [place] 00 every 6 Medical (six) Branch hours as needed for Nausea and Vomiting (N/V). proMETHazin 2020-0 Yes [id number] 25mg Take 1 [facility] e 25 mg 2-18 tablet by ity of tablet 00:00: mouth [place] 00 every 6 Medical (six) Branch hours as needed for Nausea and Vomiting (N/V). proMETHazin 2020-0 Yes [id number] 25mg Take 1 [facility] e 25 mg 2-18 tablet by ity of tablet 00:00: mouth [place] 00 every 6 Medical (six) Branch hours as needed for Nausea and Vomiting (N/V). proMETHazin 2020-0 Yes [id number] 25mg Take 1 [facility] e 25 mg 2-18 tablet by ity of tablet 00:00: mouth [place] 00 every 6 Medical (six) Branch hours as needed for Nausea and Vomiting (N/V). proMETHazin 2020-0 Yes [id number] 25mg Take 1 [facility] e 25 mg 2-18 tablet by ity of tablet 00:00: mouth [place] 00 every 6 Medical (six) Branch hours as needed for Nausea and Vomiting (N/V). proMETHazin 2020-0 Yes [id number] 25mg Take 1 [facility] e 25 mg 2-18 tablet by ity of tablet 00:00: mouth [place] 00 every 6 Medical (six) Branch hours as needed for Nausea and Vomiting (N/V). proMETHazin 2020-0 Yes [id number] 25mg Take 1 [facility] e 25 mg 2-18 tablet by ity of tablet 00:00: mouth [place] 00 every 6 Medical (six) Branch hours as needed for Nausea and Vomiting (N/V). proMETHazin 2020-0 Yes [id number] 25mg Take 1 [facility] e 25 mg 2-18 tablet by ity of tablet 00:00: mouth [place] 00 every 6 Medical (six) Branch hours as needed for Nausea and Vomiting (N/V). proMETHazin 2020-0 Yes [id number] 25mg Take 1 [facility] e 25 mg 2-18 tablet by ity of tablet 00:00: mouth [place] 00 every 6 Medical (six) Branch hours as needed for Nausea and Vomiting (N/V). proMETHazin 2020-0 Yes [id number] 25mg Take 1 [facility] e 25 mg 2-18 tablet by [facility] tablet 00:00: mouth [place] 00 every 6 Medical (six) Branch hours as needed for Nausea and Vomiting (N/V). proMETHazin 2020-0 Yes [id number] 25mg Take 1 [facility] 25 mg 2-18 tablet by [facility] of tablet 00:00: mouth [place] 00 every 6 Medical (six) Branch hours as needed for Nausea and Vomiting (N/V). proMETHazin 0 Yes [id number] 25mg Take 1 [facility] e 25 mg 2-18 tablet by [facility]y of tablet 00:00: mouth [place] 00 every 6 Medical (six) Branch hours as needed for Nausea and Vomiting (N/V). doxylamine- Yes [id number] 2{tbl} Take 2 [facility] pyridoxine, 2-10 tablets by it y of vit B6, 00:00: mouth at [facility] 00 bedtime. Medic al 10-10 mg Branch per tablet doxylamine- Yes [id number] 2{tbl} Take 2 [facility] pyridoxine, 2-10 tablets by it y of vit B6, 00:00: mouth at [facility] 00 bedtime. Medic al 10-10 mg Branch per tablet doxylamine- Yes [id number] 2{tbl} Take 2 [facility] pyridoxine, 2-10 tablets by it y of vit B6, 00:00: mouth at [facility] 00 bedtime. Medic al 10-10 mg Branch per tablet doxylamine- Yes [id number] 2{tbl} Take 2 [facility] pyridoxine, 2-10 tablets by it y of vit B6, 00:00: mouth at [facility] 00 bedtime. Medic al 10-10 mg Branch per tablet doxylamine- Yes [id number] 2{tbl} Take 2 [facility] pyridoxine, 2-10 tablets by it y of vit B6, 00:00: mouth at [place] [address] bedtime. Medic al 10-10 mg Branch per tablet doxylamine- Yes [id number] 2{tbl} Take 2 [facility] pyridoxine, 2-10 tablets by it y of vit B6, 00:00: mouth at [place] [address] bedtime. Medic al 10-10 mg Branch per tablet doxylamine- Yes [id number] 2{tbl} Take 2 [facility] pyridoxine, 2-10 tablets by it y of vit B6, 00:00: mouth at [facility] bedtime. Medic al 10-10 mg Branch per tablet doxylamine- Yes [id number] 2{tbl} Take 2 [facility] pyridoxine, 2-10 tablets by it y of vit B6, 00:00: mouth at [place] [address] bedtime. Medic al 10-10 mg Branch per tablet doxylamine- Yes [id number] 2{tbl} Take 2 [facility] pyridoxine, 2-10 tablets by it y of vit B6, 00:00: mouth at [place] [address] bedtime. Medic al 10-10 mg Branch per tablet doxylamine- Yes [id number] 2{tbl} Take 2 [facility] pyridoxine, 2-10 tablets by it y of vit B6, 00:00: mouth at [facility] bedtime. Medic al 10-10 mg Branch per tablet doxylamine- Yes [id number] 2{tbl} Take 2 [facility] pyridoxine, 2-10 tablets by it y of vit B6, 00:00: mouth at [facility] 00 bedtime. Medic al 10-10 mg Branch per tablet doxylamine- 0 Yes [id number] 2{tbl} Take 2 [facility] pyridoxine, 2-10 tablets by it y of vit B6, 00:00: mouth at [place] [address] bedtime. Medic al 10-10 mg Branch per tablet doxylamine- Yes [id number] 2{tbl} Take 2 [facility] pyridoxine, 2-10 tablets by it y of vit B6, 00:00: mouth at [facility] 00 bedtime. Medic al 10-10 mg Branch per tablet doxylamine- Yes [id number] 2{tbl} Take 2 [facility] pyridoxine, 2-10 tablets by it y of vit B6, 00:00: mouth at [facility] 00 bedtime. Medic al 10-10 mg Branch per tablet doxylamine- Yes [id number] 2{tbl} Take 2 [facility] pyridoxine, 2-10 tablets by it y of vit B6, 00:00: mouth at [facility] 00 bedtime. Medic al 10-10 mg Branch per tablet doxylamine- Yes [id number] 2{tbl} Take 2 [facility] pyridoxine, 2-10 tablets by it y of vit B6, 00:00: mouth at [facility] 00 bedtime. Medic al 10-10 mg Branch per tablet doxylamine- Yes [id number] 2{tbl} Take 2 [facility] pyridoxine, 2-10 tablets by it y of vit B6, 00:00: mouth at [facility] 00 bedtime. Medic al 10-10 mg Branch per tablet doxylamine- Yes [id number] 2{tbl} Take 2 [facility] pyridoxine, 2-10 tablets by it y of vit B6, 00:00: mouth at [facility] 00 bedtime. Medic al 10-10 mg Branch per tablet doxylamine- Yes [id number] 2{tbl} Take 2 [facility] pyridoxine, 2-10 tablets by it y of vit B6, 00:00: mouth at [facility] 00 bedtime. Medic al 10-10 mg Branch per tablet doxylamine- Yes [id number] 2{tbl} Take 2 [facility] pyridoxine, 2-10 tablets by it y of vit B6, 00:00: mouth at [facility] 00 bedtime. Medic al 10-10 mg Branch per tablet doxylamine- Yes [id number] 2{tbl} Take 2 [facility] pyridoxine, 2-10 tablets by it y of vit B6, 00:00: mouth at [facility] 00 bedtime. Medic al 10-10 mg Branch per tablet doxylamine- Yes [id number] 2{tbl} Take 2 [facility] pyridoxine, 2-10 tablets by it y of vit B6, 00:00: mouth at [facility] 00 bedtime. Medic al 10-10 mg Branch per tablet doxylamine- Yes [id number] 2{tbl} Take 2 [facility] pyridoxine, 2-10 tablets by it y of vit B6, 00:00: mouth at [facility] 00 bedtime. Medic al 10-10 mg Branch per tablet doxylamine- Yes [id number] 2{tbl} Take 2 [facility] pyridoxine, 2-10 tablets by it y of vit B6, 00:00: mouth at [facility] 00 bedtime. Medic al 10-10 mg Branch per tablet doxylamine- Yes [id number] 2{tbl} Take 2 [facility] pyridoxine, 2-10 tablets by it y of vit B6, 00:00: mouth at [facility] 00 bedtime. Medic al 10-10 mg Branch per tablet doxylamine- Yes [id number] 2{tbl} Take 2 [facility] pyridoxine, 2-10 tablets by it y of vit B6, 00:00: mouth at [facility] 00 bedtime. Medic al 10-10 mg Branch per tablet doxylamine- Yes [id number] 2{tbl} Take 2 [facility] pyridoxine, 2-10 tablets by it y of vit B6, 00:00: mouth at [facility] 00 bedtime. Medic al 10-10 mg Branch per tablet doxylamine- Yes [id number] 2{tbl} Take 2 [facility] pyridoxine, 2-10 tablets by it y of vit B6, 00:00: mouth at [facility] 00 bedtime. Medic al 10-10 mg Branch per tablet doxylamine- Yes [id number] 2{tbl} Take 2 [facility] pyridoxine, 2-10 tablets by it y of vit B6, 00:00: mouth at [place] [address] bedtime. Medic al 10-10 mg Branch per tablet doxylamine- 2020-0 Yes [id number] 2{tbl} Take 2 [facility] pyridoxine, 2-10 tablets by it y of vit B6, 00:00: mouth at [facility] 00 bedtime. Medic al 10-10 mg Branch per tablet doxylamine- 2020-0 Yes [id number] 2{tbl} Take 2 [facility] pyridoxine, 2-10 tablets by it y of vit B6, 00:00: mouth at [facility] 00 bedtime. Medic al 10-10 mg Branch per tablet doxylamine- 2020-0 Yes [id number] 2{tbl} Take 2 [facility] pyridoxine, 2-10 tablets by it y of vit B6, 00:00: mouth at [facility] 00 bedtime. Medic al 10-10 mg Branch per tablet doxylamine- 0 Yes [id number] 2{tbl} Take 2 [facility] pyridoxine, 2-10 tablets by it y of vit B6, 00:00: mouth at [facility] 00 bedtime. Medic al 10-10 mg Branch per tablet doxylamine- 2020-0 Yes [id number] 2{tbl} Take 2 [facility] pyridoxine, 2-10 tablets by it y of vit B6, 00:00: mouth at [place] [address] bedtime. Medic al 10-10 mg Branch per tablet doxylamine- 2020-0 Yes [id number] 2{tbl} Take 2 [facility] pyridoxine, 2-10 tablets by it y of vit B6, 00:00: mouth at [facility] 00 bedtime. Medic al 10-10 mg Branch per tablet doxylamine- 2020-0 Yes [id number] 2{tbl} Take 2 [facility] pyridoxine, 2-10 tablets by it y of vit B6, 00:00: mouth at [facility] 00 bedtime. Medic al 10-10 mg Branch per tablet doxylamine- 2020-0 Yes [id number] 2{tbl} Take 2 [facility] pyridoxine, 2-10 tablets by it y of vit B6, 00:00: mouth at [place] [address] bedtime. Medic al 10-10 mg Branch per tablet doxylamine- 2020-0 Yes [id number] 2{tbl} Take 2 [facility] pyridoxine, 2-10 tablets by it y of vit B6, 00:00: mouth at [place] [address] bedtime. Medic al 10-10 mg Branch per tablet doxylamine- 2020-0 Yes [id number] 2{tbl} Take 2 [facility] pyridoxine, 2-10 tablets by it y of vit B6, 00:00: mouth at [place] [address] bedtime. Medic al 10-10 mg Branch per tablet doxylamine- 2020-0 Yes [id number] 2{tbl} Take 2 [facility] pyridoxine, 2-10 tablets by it y of vit B6, 00:00: mouth at [place] [address] bedtime. Medic al 10-10 mg Branch per tablet doxylamine- 2020-0 Yes [id number] 2{tbl} Take 2 [facility] pyridoxine, 2-10 tablets by it y of vit B6, 00:00: mouth at [place] [address] bedtime. Medic al 10-10 mg Branch per tablet doxylamine- 2020-0 Yes [id number] 2{tbl} Take 2 [facility] pyridoxine, 2-10 tablets by it y of vit B6, 00:00: mouth at [place] [address] bedtime. Medic al 10-10 mg Branch per tablet doxylamine- 2020-0 Yes [id number] 2{tbl} Take 2 [facility] pyridoxine, 2-10 tablets by it y of vit B6, 00:00: mouth at [place] [address] bedtime. Medic al 10-10 mg Branch per tablet doxylamine- 2020-0 Yes [id number] 2{tbl} Take 2 [facility] pyridoxine, 2-10 tablets by it y of vit B6, 00:00: mouth at [place] [address] bedtime. Medic al 10-10 mg Branch per tablet doxylamine- 2020-0 Yes [id number] 2{tbl} Take 2 [facility] pyridoxine, 2-10 tablets by it y of vit B6, 00:00: mouth at [place] [address] bedtime. Medic al 10-10 mg Branch per tablet doxylamine- 2020-0 Yes [id number] 2{tbl} Take 2 [facility] pyridoxine, 2-10 tablets by it y of vit B6, 00:00: mouth at [facility] 00 bedtime. Medic al 10-10 mg Branch per tablet doxylamine- 0 Yes [id number] 2{tbl} Take 2 [facility] pyridoxine, 2-10 tablets by it y of vit B6, 00:00: mouth at [facility] 00 bedtime. Medic al 10-10 mg Branch per tablet doxylamine- 0 Yes [id number] 2{tbl} Take 2 [facility] pyridoxine, 2-10 tablets by it y of vit B6, 00:00: mouth at [facility] 00 bedtime. Medic al 10-10 mg Branch per tablet doxylamine- Yes [id number] 2{tbl} Take 2 [facility] pyridoxine, 2-10 tablets by it y of vit B6, 00:00: mouth at [place] [address] bedtime. Medic al 10-10 mg Branch per tablet doxylamine- 0 Yes [id number] 2{tbl} Take 2 [facility] pyridoxine, 2-10 tablets by it y of vit B6, 00:00: mouth at [place] [address] bedtime. Medic al 10-10 mg Branch per tablet doxylamine- 0 Yes [id number] 2{tbl} Take 2 [facility] pyridoxine, 2-10 tablets by it y of vit B6, 00:00: mouth at [facility] 00 bedtime. Medic al 10-10 mg Branch per tablet doxylamine- 0 Yes [id number] 2{tbl} Take 2 [facility] pyridoxine, 2-10 tablets by it y of vit B6, 00:00: mouth at [facility] 00 bedtime. Medic al 10-10 mg Branch per tablet doxylamine- 2020-0 Yes [id number] 2{tbl} Take 2 [facility] pyridoxine, 2-10 tablets by it y of vit B6, 00:00: mouth at [facility] 00 bedtime. Medic al 10-10 mg Branch per tablet doxylamine- Yes [id number] 2{tbl} Take 2 [facility] pyridoxine, 2-10 tablets by it y of vit B6, 00:00: mouth at [facility] bedtime. Medic al 10-10 mg Branch per tablet doxylamine- Yes [id number] 2{tbl} Take 2 [facility] pyridoxine, 2-10 tablets by it y of vit B6, 00:00: mouth at [facility] bedtime. Medic al 10-10 mg Branch per tablet doxylamine- Yes [id number] 2{tbl} Take 2 [facility] pyridoxine, 2-10 tablets by it y of vit B6, 00:00: mouth at [facility] bedtime. Medic al 10-10 mg Branch per tablet doxylamine- Yes [id number] 2{tbl} Take 2 [facility] pyridoxine, 2-10 tablets by it y of vit B6, 00:00: mouth at [place] [address] bedtime. Medic al 10-10 mg Branch per tablet doxylamine- Yes [id number] 2{tbl} Take 2 [facility] pyridoxine, 2-10 tablets by it y of vit B6, 00:00: mouth at [facility] bedtime. Medic al 10-10 mg Branch per tablet doxylamine- Yes [id number] 2{tbl} Take 2 [facility] pyridoxine, 2-10 tablets by it y of vit B6, 00:00: mouth at [place] [address] bedtime. Medic al 10-10 mg Branch per tablet doxylamine- Yes [id number] 2{tbl} Take 2 [facility] pyridoxine, 2-10 tablets by it y of vit B6, 00:00: mouth at [facility] bedtime. Medic al 10-10 mg Branch per tablet doxylamine- Yes [id number] 2{tbl} Take 2 [facility] pyridoxine, 2-10 tablets by it y of vit B6, 00:00: mouth at [place] [address] bedtime. Medic al 10-10 mg Branch per tablet Yes [id number] 1{tbl} Take 1 U nivers multivitami 1-13 tablet by ity of n ( 00:00: mouth [place] VITAMIN) 00 daily. Medical tablet Branch Yes [id number] 1{tbl} Take 1 [facility] nivers multivitami 1-13 tablet by ity of n ( 00:00: mouth [place] VITAMIN) 00 daily. Medical tablet Branch Yes [id number] 1{tbl} Take 1 [facility] nivers multivitami 1-13 tablet by ity of n ( 00:00: mouth [place] VITAMIN) 00 daily. Medical tablet Branch Yes [id number] 1{tbl} Take 1 [facility] nivers mult[facility]itami 1-13 tablet by ity of n ( 00:00: mouth [place] VITAMIN) 00 daily. Medical tablet Branch Yes [id number] 1{tbl} Take 1 [facility]ivers mult[facility]itami 1-13 tablet by ity of n ( 00:00: mouth [place] VITAMIN) 00 daily. Medical tablet Branch Yes [id number] 1{tbl} Take 1 [facility] nivers mult[facility]itami 1-13 tablet by ity of n ( 00:00: mouth [place] VITAMIN) 00 daily. Medical tablet Branch Yes [id number] 1{tbl} Take 1 [facility]ivers mult[facility]ami 1-13 tablet by ity of n ( 00:00: mouth [place] VITAMIN) 00 daily. Medical tablet Branch Yes [id number] 1{tbl} Take 1 [facility]ivers [facility]ami 1-13 tablet by ity of n ( 00:00: mouth [place] VITAMIN) 00 daily. Medical tablet Branch Yes [id number] 1{tbl} Take 1 [facility]ivers mult[facility]ami 1-13 tablet by ity of n ( 00:00: mouth [place] VITAMIN) 00 daily. Medical tablet Branch Yes [id number] 1{tbl} Take 1 [facility] nivers mult[facility]itami 1-13 tablet by ity of n ( 00:00: mouth [place] VITAMIN) 00 daily. Medical tablet Branch Yes [id number] 1{tbl} Take 1 [facility]ivers mult[facility]itami 1-13 tablet by ity of n ( 00:00: mouth [place] VITAMIN) 00 daily. Medical tablet Branch Yes [id number] 1{tbl} Take 1 [facility] nivers mult[facility]itami 1-13 tablet by ity of n ( 00:00: mouth [place] VITAMIN) 00 daily. Medical tablet Branch Yes [id number] 1{tbl} Take 1 [facility] nivers mult[facility]itami 1-13 tablet by ity of n ( 00:00: mouth [place] VITAMIN) 00 daily. Medical tablet Branch Yes [id number] 1{tbl} Take 1 [facility] nivers mult[facility]itami 1-13 tablet by [facility]y of n ( 00:00: mouth [place] VITAMIN) 00 daily. Medical tablet Branch Yes [id number] 1{tbl} Take 1 [facility] nivers mult[facility]itami 1-13 tablet by ity of n ( 00:00: mouth [place] VITAMIN) 00 daily. Medical tablet Branch Yes [id number] 1{tbl} Take 1 [facility] nivers mult[facility]itami 1-13 tablet by ity of n ( 00:00: mouth [place] VITAMIN) 00 daily. Medical tablet Branch Yes [id number] 1{tbl} Take 1 [facility] nivers mult[facility]itami 1-13 tablet by ity of n ( 00:00: mouth [place] VITAMIN) 00 daily. Medical tablet Branch Yes [id number] 1{tbl} Take 1 [facility] nivers mult[facility]itami 1-13 tablet by ity of n ( 00:00: mouth [place] VITAMIN) 00 daily. Medical tablet Branch Yes [id number] 1{tbl} Take 1 [facility] nivers mult[facility]itami 1-13 tablet by ity of n ( 00:00: mouth [place] VITAMIN) 00 daily. Medical tablet Branch Yes [id number] 1{tbl} Take 1 [facility] nivers mult[facility]itami 1-13 tablet by ity of n ( 00:00: mouth [place] VITAMIN) 00 daily. Medical tablet Branch Yes [id number] 1{tbl} Take 1 [facility] nivers mult[facility]itami 1-13 tablet by ity of n ( 00:00: mouth [place] VITAMIN) 00 daily. Medical tablet Branch Yes [id number] 1{tbl} Take 1 [facility] nivers mult[facility]itami 1-13 tablet by ity of n ( 00:00: mouth [place] VITAMIN) 00 daily. Medical tablet Branch Yes [id number] 1{tbl} Take 1 [facility] nivers mult[facility]itami 1-13 tablet by ity of n ( 00:00: mouth [place] VITAMIN) 00 daily. Medical tablet Branch Yes [id number] 1{tbl} Take 1 [facility] nivers mult[facility]itami 1-13 tablet by ity of n ( 00:00: mouth [place] VITAMIN) 00 daily. Medical tablet Branch Yes [id number] 1{tbl} Take 1 [facility] nivers mult[facility]itami 1-13 tablet by [facility]y of n ( 00:00: mouth [place] VITAMIN) 00 daily. Medical tablet Branch Yes [id number] 1{tbl} Take 1 [facility] nivers mult[facility]itami 1-13 tablet by [facility]y of n ( 00:00: mouth [place] VITAMIN) 00 daily. Medical tablet Branch Yes [id number] 1{tbl} Take 1 [facility] nivers mult[facility]ami 1-13 tablet by ity of n ( 00:00: mouth [place] VITAMIN) 00 daily. Medical tablet Branch Yes [id number] 1{tbl} Take 1 [facility] nivers mult[facility]ami 1-13 tablet by ity of n ( 00:00: mouth [place] VITAMIN) 00 daily. Medical tablet Branch Yes [id number] 1{tbl} Take 1 [facility] nivers mult[facility]itami 1-13 tablet by ity of n ( 00:00: mouth [place] VITAMIN) 00 daily. Medical tablet Branch Yes [id number] 1{tbl} Take 1 [facility] nivers mult[facility]itami 1-13 tablet by [facility]y of n ( 00:00: mouth [place] VITAMIN) 00 daily. Medical tablet Branch Yes [id number] 1{tbl} Take 1 [facility] nivers mult[facility]itami 1-13 tablet by [facility]y of n ( 00:00: mouth [place] VITAMIN) 00 daily. Medical tablet Branch Yes [id number] 1{tbl} Take 1 [facility]ivers mult[facility]ami 1-13 tablet by [facility]y of n ( 00:00: mouth [place] VITAMIN) 00 daily. Medical tablet Branch Yes [id number] 1{tbl} Take 1 [facility]ivers mult[facility]itami 1-13 tablet by [facility]y of n ( 00:00: mouth [place] VITAMIN) 00 daily. Medical tablet Branch Yes [id number] 1{tbl} Take 1 [facility] nivers mult[facility]itami 1-13 tablet by ity of n ( 00:00: mouth [place] VITAMIN) 00 daily. Medical tablet Branch Yes [id number] 1{tbl} Take 1 [facility]ivers mult[facility]itami 1-13 tablet by [facility]y of n ( 00:00: mouth [place] VITAMIN) 00 daily. Medical tablet Branch Yes [id number] 1{tbl} Take 1 [facility]ivers mult[facility]ami 1-13 tablet by [facility]y of n ( 00:00: mouth [place] VITAMIN) 00 daily. Medical tablet Branch Yes [id number] 1{tbl} Take 1 [facility] nivers mult[facility]ami 1-13 tablet by [facility]y of n ( 00:00: mouth [place] VITAMIN) 00 daily. Medical tablet Branch Yes [id number] 1{tbl} Take 1 [facility] nivers mult[facility]ami 1-13 tablet by [facility]y of n ( 00:00: mouth [place] VITAMIN) 00 daily. Medical tablet Branch Yes [id number] 1{tbl} Take 1 [facility] nivers mult[facility]ami 1-13 tablet by [facility]y of n ( 00:00: mouth [place] VITAMIN) 00 daily. Medical tablet Branch Yes [id number] 1{tbl} Take 1 [facility] nivers mult[facility]ami 1-13 tablet by [facility]y of n ( 00:00: mouth [place] VITAMIN) 00 daily. Medical tablet Branch Yes [id number] 1{tbl} Take 1 [facility] nivers mult[facility]ami 1-13 tablet by [facility]y of n ( 00:00: mouth [place] VITAMIN) 00 daily. Medical tablet Branch Yes [id number] 1{tbl} Take 1 [facility] nivers mult[facility]itami 1-13 tablet by [facility]y of n ( 00:00: mouth [place] VITAMIN) 00 daily. Medical tablet Branch Yes [id number] 1{tbl} Take 1 [facility]ivers mult[facility]ami 1-13 tablet by [facility]y of n ( 00:00: mouth [place] VITAMIN) 00 daily. Medical tablet Branch Yes [id number] 1{tbl} Take 1 [facility]ivers mult[facility]ami 1-13 tablet by [facility]y of n ( 00:00: mouth [place] VITAMIN) 00 daily. Medical tablet Branch Yes [id number] 1{tbl} Take 1 [facility] mult[facility]ami 1-13 tablet by [facility]y of n ( 00:00: mouth [place] VITAMIN) 00 daily. Medical tablet Branch Yes [id number] 1{tbl} Take 1 [facility]ivers mult[facility]ami 1-13 tablet by [facility]y of n ( 00:00: mouth [place] VITAMIN) 00 daily. Medical tablet Branch Yes [id number] 1{tbl} Take 1 [facility] nivers mult[facility]ami 1-13 tablet by [facility]y of n ( 00:00: mouth [place] VITAMIN) 00 daily. Medical tablet Branch Yes [id number] 1{tbl} Take 1 [facility]ivers mult[facility]ami 1-13 tablet by [facility]y of n ( 00:00: mouth [place] VITAMIN) 00 daily. Medical tablet Branch Yes [id number] 1{tbl} Take 1 [facility]ivers mult[facility]ami 1-13 tablet by [facility] of n ( 00:00: mouth [place] VITAMIN) 00 daily. Medical tablet Branch Yes [id number] 1{tbl} Take 1 [facility] nivers mult[facility]itami 1-13 tablet by [facility]y of n ( 00:00: mouth [place] VITAMIN) 00 daily. Medical tablet Branch Yes [id number] 1{tbl} Take 1 [facility] nivers mult[facility]itami 1-13 tablet by [facility]y of n ( 00:00: mouth [place] VITAMIN) 00 daily. Medical tablet Branch Yes [id number] 1{tbl} Take 1 [facility]ivers mult[facility]ami 1-13 tablet by [facility]y of n ( 00:00: mouth [place] VITAMIN) 00 daily. Medical tablet Branch Yes [id number] 1{tbl} Take 1 [facility] nivers mult[facility]itami 1-13 tablet by [facility]y of n ( 00:00: mouth [place] VITAMIN) 00 daily. Medical tablet Branch Yes [id number] 1{tbl} Take 1 [facility]ivers mult[facility]itami 1-13 tablet by [facility]y of n ( 00:00: mouth [place] VITAMIN) 00 daily. Medical tablet Branch Yes [id number] 1{tbl} Take 1 [facility]ivers mult[facility]ami 1-13 tablet by [facility]y of n ( 00:00: mouth [place] VITAMIN) 00 daily. Medical tablet Branch Yes [id number] 1{tbl} Take 1 [facility]ivers mult[facility]ami 1-13 tablet by [facility]y of n ( 00:00: mouth [place] VITAMIN) 00 daily. Medical tablet Branch Yes [id number] 1{tbl} Take 1 [facility] mult[facility]ami 1-13 tablet by [facility] of n ( 00:00: mouth [place] VITAMIN) 00 daily. Medical tablet Branch Yes [id number] 1{tbl} Take 1 [facility] mult[facility]ami 1-13 tablet by [facility] of n ( 00:00: mouth [place] VITAMIN) 00 daily. Medical tablet Branch Yes [id number] 1{tbl} Take 1 [facility]ivers mult[facility]itami 1-13 tablet by [facility]y of n ( 00:00: mouth [place] VITAMIN) 00 daily. Medical tablet Branch Yes [id number] 1{tbl} Take 1 [facility] mult[facility]ami 1-13 tablet by [facility] of n ( 00:00: mouth [place] VITAMIN) 00 daily. Medical tablet Branch Yes [id number] 1{tbl} Take 1 [facility] mult[facility]ami 1-13 tablet by [facility]y of n ( 00:00: mouth [place] VITAMIN) 00 daily. Medical tablet Branch Yes [id number] 1{tbl} Take 1 [facility]ivers mult[facility]ami 1-13 tablet by [facility] of n ( 00:00: mouth [place] VITAMIN) 00 daily. Medical tablet Branch Yes [id number] 1{tbl} Take 1 [facility] nivers mult[facility]itami 1-13 tablet by [facility]y of n ( 00:00: mouth [place] VITAMIN) 00 daily. Medical tablet Branch HYDROXYprog 2020- No [id number] 250mg 1 mL by [facility] est,PF,,pre -18 01-11 [facility] ty of g presv, 00:00: 04:59 lar route Man as 250 mg/mL 00 :00 weekly for Medi carlos (1 mL) 22 doses. Branch injection HYDROXYprog 2020- No [id number] 250mg 1 mL by [facility] est,PF,,pre 08-20 [facility] g presv, 00:00: 04:59 lar route Man as 250 mg/mL 00 :00 weekly for Medi carlos (1 mL) 22 doses. Branch injection HYDROXYprog 2020- No [id number] 250mg 1 mL by [facility] est,PF,,pre 08-20 [facility] g presv, 00:00: 04:59 lar route Man as 250 mg/mL 00 :00 weekly for Medi carlos (1 mL) 22 doses. Branch injection HYDROXYprog 2020- No [id number] 250mg 1 mL by [facility] est,PF,,pre 08-20 [facility] g presv, 00:00: 04:59 lar route [facility] as 250 mg/mL 00 :00 weekly for Medi carlos (1 mL) 22 doses. Branch injection HYDROXYprog 2020- No [id number] 250mg 1 mL by [facility] est,PF,,pre 08-20 [facility] g presv, 00:00: 04:59 lar route Man as 250 mg/mL 00 :00 weekly for Medi carlos (1 mL) 22 doses. Branch injection HYDROXYprog 2020- No [id number] 250mg 1 mL by [facility] est,PF,,pre 08-20 [facility] g presv, 00:00: 04:59 lar route Man as 250 mg/mL 00 :00 weekly for Medi carlos (1 mL) 22 doses. Branch injection HYDROXYprog 2020-0 2020- No [id number] 250mg 1 mL by [facility] est,PF,,pre 08-20 [facility] g presv, 00:00: 04:59 lar route Man as 250 mg/mL 00 :00 weekly for Medi carlos (1 mL) 22 doses. Branch injection HYDROXYprog 2020- No [id number] 250mg 1 mL by [facility] est,PF,,pre 08-20 [facility] g presv, 00:00: 04:59 lar route Man as 250 mg/mL 00 :00 weekly for Medi carlos (1 mL) 22 doses. Branch injection HYDROXYprog 2020- No [id number] 250mg 1 mL by [facility] est,PF,,pre 08-20 [facility] g presv, 00:00: 04:59 lar route Man as 250 mg/mL 00 :00 weekly for Medi carlos (1 mL) 22 doses. Branch injection HYDROXYprog 2020- No [id number] 250mg 1 mL by [facility] est,PF,,pre 08-20 [facility] g presv, 00:00: 04:59 lar route Man as 250 mg/mL 00 :00 weekly for Medi carlos (1 mL) 22 doses. Branch injection HYDROXYprog 2020- No [id number] 250mg 1 mL by [facility] est,PF,,pre 08-20 [facility] g presv, 00:00: 04:59 lar route Man as 250 mg/mL 00 :00 weekly for Medi carlos (1 mL) 22 doses. Branch injection HYDROXYprog 2020- No [id number] 250mg 1 mL by [facility] est,PF,,pre 08-20 [facility] g presv, 00:00: 04:59 lar route Man as 250 mg/mL 00 :00 weekly for Medi carlos (1 mL) 22 doses. Branch injection HYDROXYprog 2020- No [id number] 250mg 1 mL by [facility] est,PF,,pre 08-20 [facility] g presv, 00:00: 04:59 lar route Man as 250 mg/mL 00 :00 weekly for Medi carlos (1 mL) 22 doses. Branch injection HYDROXYprog 2020- No [id number] 250mg 1 mL by [facility] est,PF,,pre 08-20 [facility] g presv, 00:00: 04:59 lar route Man as 250 mg/mL 00 :00 weekly for Medi carlos (1 mL) 22 doses. Branch injection HYDROXYprog 2020- No [id number] 250mg 1 mL by [facility] est,PF,,pre 08-20 [facility] g presv, 00:00: 04:59 lar route Man as 250 mg/mL 00 :00 weekly for Medi carlos (1 mL) 22 doses. Branch injection HYDROXYprog 2020- No [id number] 250mg 1 mL by [facility] est,PF,,pre 08-20 [facility] g presv, 00:00: 04:59 lar route Man as 250 mg/mL 00 :00 weekly for Medi carlos (1 mL) 22 doses. Branch injection HYDROXYprog 2020- No [id number] 250mg 1 mL by [facility] est,PF,,pre 08-20 [facility] g presv, 00:00: 04:59 lar route Man as 250 mg/mL 00 :00 weekly for Medi carlos (1 mL) 22 doses. Branch injection HYDROXYprog 2020- No [id number] 250mg 1 mL by [facility] est,PF,,pre 08-20 [facility] g presv, 00:00: 04:59 lar route Man as 250 mg/mL 00 :00 weekly for Medi carlos (1 mL) 22 doses. Branch injection HYDROXYprog 2020- No [id number] 250mg 1 mL by [facility] est,PF,,pre 08-20 [facility] g presv, 00:00: 04:59 lar route Man as 250 mg/mL 00 :00 weekly for Medi carlos (1 mL) 22 doses. Branch injection HYDROXYprog 2020- No [id number] 250mg 1 mL by [facility] est,PF,,pre 08-20 [facility] ty of g presv, 00:00: 04:59 lar route [place] 250 mg/mL 00 :00 weekly for Medi carlos (1 mL) 22 doses. Branch injection HYDROXYprog 2020- No [id number] 250mg 1 mL by [facility] est,PF,,pre 08-20 [facility] of g presv, 00:00: 04:59 lar route [place] 250 mg/mL 00 :00 weekly for Medi carlos (1 mL) 22 doses. Branch injection HYDROXYprog 2020- No [id number] 250mg 1 mL by [facility] est,PF,,pre 08-20 [facility] of g presv, 00:00: 04:59 lar route [place] 250 mg/mL 00 :00 weekly for Medi carlos (1 mL) 22 doses. Branch injection HYDROXYprog 2020- No [id number] 250mg 1 mL by [facility] est,PF,,pre 08-20 [facility] i ty of g presv, 00:00: 04:59 lar route [place] 250 mg/mL 00 :00 weekly for Medi carlos (1 mL) 22 doses. Branch injection HYDROXYprog 2020- No [id number] 250mg 1 mL by [facility] est,PF,,pre 08-20 [facility] i ty of g presv, 00:00: 04:59 lar route [place] 250 mg/mL 00 :00 weekly for Medi carlos (1 mL) 22 doses. Branch injection HYDROXYprog 2020- No [id number] 250mg 1 mL by [facility] est,PF,,pre 08-20 Intr[facility] i ty of g presv, 00:00: 04:59 lar route [place] 250 mg/mL 00 :00 weekly for Medi carlos (1 mL) 22 doses. Branch injection HYDROXYprog 2020- No [id number] 250mg 1 mL by [facility] est,PF,,pre 08-20 Intramus[facility] i ty of g presv, 00:00: 04:59 lar route [place] 250 mg/mL 00 :00 weekly for Medi carlos (1 mL) 22 doses. Branch injection HYDROXYprog 2020- No [id number] 250mg 1 mL by [facility] est,PF,,pre 08-20 Intramus[facility] i ty of g presv, 00:00: 04:59 lar route [place] 250 mg/mL 00 :00 weekly for Medi carlos (1 mL) 22 doses. Branch injection HYDROXYprog 2020- No [id number] 250mg 1 mL by [facility] est,PF,,pre 08-20 Intramus[facility] i ty of g presv, 00:00: 04:59 lar route [place] 250 mg/mL 00 :00 weekly for Medi carlos (1 mL) 22 doses. Branch injection HYDROXYprog 2020- No [id number] 250mg 1 mL by [facility] est,PF,,pre 08-20 Intramus[facility] i ty of g presv, 00:00: 04:59 lar route [place] 250 mg/mL 00 :00 weekly for Medi carlos (1 mL) 22 doses. Branch injection HYDROXYprog 2020- No [id number] 250mg 1 mL by [facility] est,PF,,pre 08-20 Intramuscu i ty of g presv, 00:00: 04:59 lar route [place] 250 mg/mL 00 :00 weekly for Medi cralos (1 mL) 22 doses. Branch injection HYDROXYprog 2020- No [id number] 250mg 1 mL by [facility] est,PF,,pre 08-20 Intramuscu i ty of g presv, 00:00: 04:59 lar route [place] 250 mg/mL 00 :00 weekly for Medi carlos (1 mL) 22 doses. Branch injection HYDROXYprog 2020- No [id number] 250mg 1 mL by [facility] est,PF,,pre 08-20 Intramus[facility] i ty of g presv, 00:00: 04:59 lar route [place] 250 mg/mL 00 :00 weekly for Medi carlos (1 mL) 22 doses. Branch injection HYDROXYprog 2020- No [id number] 250mg 1 mL by [facility] est,PF,,pre 08-20 Intramus[facility] i ty of g presv, 00:00: 04:59 lar route [place] 250 mg/mL 00 :00 weekly for Medi carlos (1 mL) 22 doses. Branch injection HYDROXYprog 2020- No [id number] 250mg 1 mL by [facility] est,PF,,pre 08-20 Intramuscu i ty of g presv, 00:00: 04:59 lar route [place] 250 mg/mL 00 :00 weekly for Medi carlos (1 mL) 22 doses. Branch injection HYDROXYprog 2020- No [id number] 250mg 1 mL by [facility] est,PF,,pre 08-20 Intramuscu i ty of g presv, 00:00: 04:59 lar route [place] 250 mg/mL 00 :00 weekly for Medi carlos (1 mL) 22 doses. Branch injection HYDROXYprog 2020- No [id number] 250mg 1 mL by [facility] est,PF,,pre 08-20 Intramuscu i ty of g presv, 00:00: 04:59 lar route [place] 250 mg/mL 00 :00 weekly for Medi carlos (1 mL) 22 doses. Branch injection HYDROXYprog 2020- No [id number] 250mg 1 mL by [facility] est,PF,,pre 08-20 Intramuscu i ty of g presv, 00:00: 04:59 lar route [place] 250 mg/mL 00 :00 weekly for Medi carlos (1 mL) 22 doses. Branch injection HYDROXYprog 2020- No [id number] 250mg 1 mL by [facility] est,PF,,pre 08-20 Intramuscu i ty of g presv, 00:00: 04:59 lar route [place] 250 mg/mL 00 :00 weekly for Medi carlos (1 mL) 22 doses. Branch injection HYDROXYprog No [id number] 250mg 1 mL by [facility] est,PF,,pre 08-20 Intramuscu i ty of g presv, 00:00: 04:59 lar route [place] 250 mg/mL 00 :00 weekly for Medi carlos (1 mL) 22 doses. Branch injection HYDROXYprog 2020- No [id number] 250mg 1 mL by [facility] est,PF,,pre 08-20 Intramuscu i ty of g presv, 00:00: 04:59 lar route [place] 250 mg/mL 00 :00 weekly for Medi carlos (1 mL) 22 doses. Branch injection HYDROXYprog No [id number] 250mg 1 mL by [facility] est,PF,,pre 08-20 Intramuscu i ty of g presv, 00:00: 04:59 lar route [place] 250 mg/mL 00 :00 weekly for Medi carlos (1 mL) 22 doses. Branch injection HYDROXYprog 2020- No [id number] 250mg 1 mL by [facility] est,PF,,pre 08-20 Intramuscu i ty of g presv, 00:00: 04:59 lar route [place] 250 mg/mL 00 :00 weekly for Medi carlos (1 mL) 22 doses. Branch injection HYDROXYprog No [id number] 250mg 1 mL by [facility] est,PF,,pre 08-20 Intramuscu i ty of g presv, 00:00: 04:59 lar route [place] 250 mg/mL 00 :00 weekly for Medi carlos (1 mL) 22 doses. Branch injection HYDROXYprog 2020- No [id number] 250mg 1 mL by [facility] est,PF,,pre 08-20 Intramuscu i ty of g presv, 00:00: 04:59 lar route [place] 250 mg/mL 00 :00 weekly for Medi carlos (1 mL) 22 doses. Branch injection HYDROXYprog 2020- No [id number] 250mg 1 mL by [facility] est,PF,,pre 08-20 Intramuscu i ty of g presv, 00:00: 04:59 lar route [place] 250 mg/mL 00 :00 weekly for Medi carlos (1 mL) 22 doses. Branch injection HYDROXYprog No [id number] 250mg 1 mL by [facility] est,PF,,pre 08-20 Intramuscu i ty of g presv, 00:00: 04:59 lar route [place] 250 mg/mL 00 :00 weekly for Medi carlos (1 mL) 22 doses. Branch injection HYDROXYprog No [id number] 250mg 1 mL by [facility] est,PF,,pre 08-20 Intramuscu i ty of g presv, 00:00: 04:59 lar route [place] 250 mg/mL 00 :00 weekly for Medi carlos (1 mL) 22 doses. Branch injection HYDROXYprog No [id number] 250mg 1 mL by [facility] est,PF,,pre 08-20 Intramuscu i ty of g presv, 00:00: 04:59 lar route [place] as 250 mg/mL 00 :00 weekly for Medi carlos (1 mL) 22 doses. Branch injection cefTRIAXone 2019- No 250mg 250 mg, U nivers (ROCEPHIN) 815 08-15 Intramuscu it y of injection 07:15: 06:17 lar, ONCE, [place] 250 mg 00 :00 1 dose, Medical Sat Branch 03/22/20 at 0215, ARA
Re ason for Anti-Infec tive: Empiric Therapy for Suspected Infection< br>Empiric Therapy Site: Pelvic
Duration of therapy: 72 hours azithromyci 2019-2019- No 1000mg 1,000 mg, Univers n 03-22-15 Oral, ity of (ZITHROMAX) 07:15: 06:16 ONCE, 1 [place] tablet 00 :00 dose, Sat Medical 1,000 mg 03/22/20 at [facility] h 0215, ARA
Re ason for Anti-Infec tive: Empiric Therapy for Suspected Infection< br>Empiric Therapy Site: Pelvic
Duration of therapy: 72 hours ketorolac 2019-2019- No 30mg 30 mg, Unive rs (TORADOL) 03-2215 Slow IV ity of injection 05:15: 04:14 Push, [place] 30 mg 00 :00 ONCE, 1 Medical dose, Sat Branch 03/22/20 at 0015, Routine
outreach team member approving Restricted medication : SAMIR BAIRD ondansetron 2019- No 4mg 4 mg, Slow Univers (ZOFRAN 03-22 IV Push, ity of (PF)) 05:15: 04:14 ONCE, 1 [place] injection 4 00 :00 dose, Sat Med ical mg 03/22/20 at Branch 0015, ARA metroNIDAZO 2019- 2020- No [id number] 500mg Take 1 [facility] LE 500 mg 03-22-30 tablet by ity of tablet 00:00: 04:59 mouth 2 [place] 00 :00 (two) Medical times Branch daily for 14 days. metroNIDAZO 2020-0 2020- No [id number] 500mg Take 1 [facility] LE 500 mg 8- 08-30 tablet by ity of tablet 00:00: 04:59 mouth 2 [place] 00 :00 (two) Medical times Branch daily for 14 days. metroNIDAZO 2020-0 2020- No [id number] 500mg Take 1 [facility] LE 500 mg 8- 08-30 tablet by ity of tablet 00:00: 04:59 mouth 2 [place] 00 :00 (two) Medical times Branch daily for 14 days. metroNIDAZO 2020-0 2020- No [id number] 500mg Take 1 [facility] LE 500 mg 8-15 08-30 tablet by ity of tablet 00:00: 04:59 mouth 2 [place] 00 :00 (two) Medical times Branch daily for 14 days. metroNIDAZO 2020-0 2020- No [id number] 500mg Take 1 [facility] LE 500 mg 8-15 08-30 tablet by ity of tablet 00:00: 04:59 mouth 2 [place] 00 :00 (two) Medical times [place] daily for 14 days. cefTRIAXone 2019- Yes 250mg 250 mg, Un alex (ROCEPHIN) 02-25 Intramuscu ity of injection 23:30: lar, Q24H, [place] 250 mg 00 First dose Medical on [facility] 02/26/20 at 1830, Until Discontinu ed, ARA
Re ason for Anti-Infec tive: Documented Infection< br>Documen kareen Infection Site: Pelvic
Duration of Therapy: Other (see Comments) azithromyci 2019- No 1000mg 1,000 mg, Univers n 02-25 Oral, ity of (ZITHROMAX) 23:30: 23:39 ONCE, 1 [place] tablet 00 :00 dose, [facility] 1,000 mg 02/26/20 at [facility] h 1830, ARA
Re ason for Anti-Infec tive: Documented Infection< br>Documen kareen Infection Site: Pelvic
Duration of Therapy: Other (see Comments) ketorolac 2019-2019- No 15mg 15 mg, Unive rs (TORADOL) 02-25 Slow IV ity of injection 23:15: 22:18 Push, [place] 15 mg 00 :00 ONCE, 1 Medical dose, [facility] 02/26/20 at 1815, ARA
Fa culty member approving Restricted medication : EVANGELIST BONNER ondansetron 2019- No 4mg 4 mg, Slow Univers (ZOFRAN 02-25 IV Push, ity of (PF)) 23:15: 22:21 ONCE, 1 [place] injection 4 00 :00 dose, [facility] Med ical mg 02/26/20 at Branch 1815, ARA morpHINE 2019-0 2020- No 4mg 4 mg, Slow Un alex injection 4 7-21 07-21 IV Push, ity of mg 23:15: 22:21 ONCE, 1 [place] 00 :00 dose, [facility] 02/26/20 at Branch 1815, STAT ibuprofen 2020-0 Yes [id number] 800mg Take 1 [facility] 800 mg 7-21 tablet by ity of tablet 00:00: mouth [place] 00 every 6 Medical (six) Branch hours as needed for Pain (scale 4-6). ibuprofen 2020-0 Yes [id number] 800mg Take 1 [facility] 800 mg 7-21 tablet by ity of tablet 00:00: mouth [place] 00 every 6 Medical (six) Branch hours as needed for Pain (scale 4-6). ibuprofen 2020-0 Yes [id number] 800mg Take 1 [facility] 800 mg 7-21 tablet by ity of tablet 00:00: mouth [place] 00 every 6 Medical (six) Branch hours as needed for Pain (scale 4-6). ibuprofen 2020-0 Yes [id number] 800mg Take 1 [facility] 800 mg 7-21 tablet by ity of tablet 00:00: mouth [place] 00 every 6 Medical (six) Branch hours as needed for Pain (scale 4-6). ibuprofen 2020-0 Yes [id number] 800mg Take 1 [facility] 800 mg 7-21 tablet by ity of tablet 00:00: mouth [place] 00 every 6 Medical (six) Branch hours as needed for Pain (scale 4-6). ibuprofen 2020-0 Yes [id number] 800mg Take 1 [facility] 800 mg 7-21 tablet by ity of tablet 00:00: mouth [place] 00 every 6 Medical (six) Branch hours as needed for Pain (scale 4-6). ibuprofen 2020-0 Yes [id number] 800mg Take 1 [facility] 800 mg 7-21 tablet by ity of tablet 00:00: mouth [place] 00 every 6 Medical (six) Branch hours as needed for Pain (scale 4-6). ibuprofen 2020-0 Yes [id number] 800mg Take 1 [facility] 800 mg 7-21 tablet by ity of tablet 00:00: mouth [place] 00 every 6 Medical (six) Branch hours as needed for Pain (scale 4-6). ibuprofen 2020-0 Yes [id number] 800mg Take 1 [facility] 800 mg 7-21 tablet by ity of tablet 00:00: mouth [place] 00 every 6 Medical (six) Branch hours as needed for Pain (scale 4-6). ibuprofen 2020-0 Yes [id number] 800mg Take 1 [facility] 800 mg 7-21 tablet by ity of tablet 00:00: mouth [place] 00 every 6 Medical (six) Branch hours as needed for Pain (scale 4-6). ibuprofen 2020-0 Yes [id number] 800mg Take 1 [facility] 800 mg 7-21 tablet by ity of tablet 00:00: mouth [place] 00 every 6 Medical (six) Branch hours as needed for Pain (scale 4-6). ibuprofen 2020-0 Yes [id number] 800mg Take 1 [facility] 800 mg 7-21 tablet by ity of tablet 00:00: mouth [place] 00 every 6 Medical (six) Branch hours as needed for Pain (scale 4-6). ibuprofen 2020-0 Yes [id number] 800mg Take 1 [facility] 800 mg 7-21 tablet by ity of tablet 00:00: mouth [place] 00 every 6 Medical (six) Branch hours as needed for Pain (scale 4-6). ibuprofen 2020-0 Yes [id number] 800mg Take 1 [facility] 800 mg 7-21 tablet by ity of tablet 00:00: mouth [place] 00 every 6 Medical (six) Branch hours as needed for Pain (scale 4-6). ibuprofen 2020-0 Yes [id number] 800mg Take 1 [facility] 800 mg 7-21 tablet by ity of tablet 00:00: mouth [place] 00 every 6 Medical (six) Branch hours as needed for Pain (scale 4-6). ibuprofen 2020-0 Yes [id number] 800mg Take 1 [facility] 800 mg 7-21 tablet by ity of tablet 00:00: mouth [place] 00 every 6 Medical (six) Branch hours as needed for Pain (scale 4-6). ibuprofen 2020-0 Yes [id number] 800mg Take 1 [facility] 800 mg 7-21 tablet by ity of tablet 00:00: mouth [place] 00 every 6 Medical (six) Branch hours as needed for Pain (scale 4-6). ibuprofen 2020-0 Yes [id number] 800mg Take 1 [facility] 800 mg 7-21 tablet by ity of tablet 00:00: mouth [place] 00 every 6 Medical (six) Branch hours as needed for Pain (scale 4-6). ibuprofen 2020-0 Yes [id number] 800mg Take 1 [facility] 800 mg 7-21 tablet by ity of tablet 00:00: mouth [place] 00 every 6 Medical (six) Branch hours as needed for Pain (scale 4-6). ibuprofen 2020-0 Yes [id number] 800mg Take 1 [facility] 800 mg 7-21 tablet by ity of tablet 00:00: mouth [place] 00 every 6 Medical (six) Branch hours as needed for Pain (scale 4-6). ibuprofen 2020-0 Yes [id number] 800mg Take 1 [facility] 800 mg 7-21 tablet by ity of tablet 00:00: mouth [place] 00 every 6 Medical (six) Branch hours as needed for Pain (scale 4-6). ibuprofen 2020-0 Yes [id number] 800mg Take 1 [facility] 800 mg 7-21 tablet by ity of tablet 00:00: mouth [place] 00 every 6 Medical (six) Branch hours as needed for Pain (scale 4-6). ibuprofen 2020-0 Yes [id number] 800mg Take 1 [facility] 800 mg 7-21 tablet by ity of tablet 00:00: mouth [place] 00 every 6 Medical (six) Branch hours as needed for Pain (scale 4-6). ibuprofen 2020-0 Yes [id number] 800mg Take 1 [facility] 800 mg 7-21 tablet by ity of tablet 00:00: mouth [place] 00 every 6 Medical (six) Branch hours as needed for Pain (scale 4-6). ibuprofen 2020-0 Yes [id number] 800mg Take 1 [facility] 800 mg 7-21 tablet by ity of tablet 00:00: mouth [place] 00 every 6 Medical (six) Branch hours as needed for Pain (scale 4-6). ibuprofen 2020-0 Yes [id number] 800mg Take 1 [facility] 800 mg 7-21 tablet by ity of tablet 00:00: mouth [place] 00 every 6 Medical (six) Branch hours as needed for Pain (scale 4-6). ibuprofen 2020-0 Yes [id number] 800mg Take 1 [facility] 800 mg 7-21 tablet by ity of tablet 00:00: mouth [place] 00 every 6 Medical (six) Branch hours as needed for Pain (scale 4-6). ibuprofen 2020-0 Yes [id number] 800mg Take 1 [facility] 800 mg 7-21 tablet by ity of tablet 00:00: mouth [place] 00 every 6 Medical (six) Branch hours as needed for Pain (scale 4-6). ibuprofen 2020-0 Yes [id number] 800mg Take 1 [facility] 800 mg 7-21 tablet by ity of tablet 00:00: mouth [place] 00 every 6 Medical (six) Branch hours as needed for Pain (scale 4-6). ibuprofen 2020-0 Yes [id number] 800mg Take 1 [facility] 800 mg 7-21 tablet by ity of tablet 00:00: mouth [place] 00 every 6 Medical (six) Branch hours as needed for Pain (scale 4-6). ibuprofen 2020-0 Yes [id number] 800mg Take 1 [facility] 800 mg 7-21 tablet by ity of tablet 00:00: mouth [place] 00 every 6 Medical (six) Branch hours as needed for Pain (scale 4-6). ibuprofen 2020-0 Yes [id number] 800mg Take 1 [facility] 800 mg 7-21 tablet by ity of tablet 00:00: mouth [place] 00 every 6 Medical (six) Branch hours as needed for Pain (scale 4-6). ibuprofen 2020-0 Yes [id number] 800mg Take 1 [facility] 800 mg 7-21 tablet by ity of tablet 00:00: mouth [place] 00 every 6 Medical (six) Branch hours as needed for Pain (scale 4-6). ibuprofen 2020-0 Yes [id number] 800mg Take 1 [facility] 800 mg 7-21 tablet by ity of tablet 00:00: mouth [place] 00 every 6 Medical (six) Branch hours as needed for Pain (scale 4-6). ibuprofen 2020-0 Yes [id number] 800mg Take 1 [facility] 800 mg 7-21 tablet by ity of tablet 00:00: mouth [place] 00 every 6 Medical (six) Branch hours as needed for Pain (scale 4-6). ibuprofen 2020-0 Yes [id number] 800mg Take 1 [facility] 800 mg 7-21 tablet by ity of tablet 00:00: mouth [place] 00 every 6 Medical (six) Branch hours as needed for Pain (scale 4-6). ibuprofen 2020-0 Yes [id number] 800mg Take 1 [facility] 800 mg 7-21 tablet by ity of tablet 00:00: mouth [place] 00 every 6 Medical (six) Branch hours as needed for Pain (scale 4-6). ibuprofen 2020-0 Yes [id number] 800mg Take 1 [facility] 800 mg 7-21 tablet by ity of tablet 00:00: mouth [place] 00 every 6 Medical (six) Branch hours as needed for Pain (scale 4-6). ibuprofen 2020-0 Yes [id number] 800mg Take 1 [facility] 800 mg 7-21 tablet by ity of tablet 00:00: mouth [place] 00 every 6 Medical (six) Branch hours as needed for Pain (scale 4-6). ibuprofen 2020-0 Yes [id number] 800mg Take 1 [facility] 800 mg 7-21 tablet by ity of tablet 00:00: mouth [place] 00 every 6 Medical (six) Branch hours as needed for Pain (scale 4-6). ibuprofen 2020-0 Yes [id number] 800mg Take 1 [facility] 800 mg 7-21 tablet by ity of tablet 00:00: mouth [place] 00 every 6 Medical (six) Branch hours as needed for Pain (scale 4-6). ibuprofen 2020-0 Yes [id number] 800mg Take 1 [facility] 800 mg 7-21 tablet by ity of tablet 00:00: mouth [place] 00 every 6 Medical (six) Branch hours as needed for Pain (scale 4-6). ibuprofen 2020-0 Yes [id number] 800mg Take 1 [facility] 800 mg 7-21 tablet by ity of tablet 00:00: mouth [place] 00 every 6 Medical (six) Branch hours as needed for Pain (scale 4-6). ibuprofen 2020-0 Yes [id number] 800mg Take 1 [facility] 800 mg 7-21 tablet by ity of tablet 00:00: mouth [place] 00 every 6 Medical (six) Branch hours as needed for Pain (scale 4-6). ibuprofen 2020-0 Yes [id number] 800mg Take 1 [facility] 800 mg 7-21 tablet by ity of tablet 00:00: mouth [place] 00 every 6 Medical (six) Branch hours as needed for Pain (scale 4-6). ibuprofen 2020-0 Yes [id number] 800mg Take 1 [facility] 800 mg 7-21 tablet by ity of tablet 00:00: mouth [place] 00 every 6 Medical (six) Branch hours as needed for Pain (scale 4-6). ibuprofen 2020-0 Yes [id number] 800mg Take 1 [facility] 800 mg 7-21 tablet by ity of tablet 00:00: mouth [place] 00 every 6 Medical (six) Branch hours as needed for Pain (scale 4-6). ibuprofen 2020-0 Yes [id number] 800mg Take 1 [facility] 800 mg 7-21 tablet by ity of tablet 00:00: mouth [place] 00 every 6 Medical (six) Branch hours as needed for Pain (scale 4-6). ibuprofen 2020-0 Yes [id number] 800mg Take 1 [facility] 800 mg 7-21 tablet by ity of tablet 00:00: mouth [place] 00 every 6 Medical (six) Branch hours as needed for Pain (scale 4-6). ibuprofen 2020-0 Yes [id number] 800mg Take 1 [facility] 800 mg 7-21 tablet by ity of tablet 00:00: mouth [place] 00 every 6 Medical (six) Branch hours as needed for Pain (scale 4-6). ibuprofen 2020-0 Yes [id number] 800mg Take 1 [facility] 800 mg 7-21 tablet by ity of tablet 00:00: mouth [place] 00 every 6 Medical (six) Branch hours as needed for Pain (scale 4-6). ibuprofen 2020-0 Yes [id number] 800mg Take 1 [facility] 800 mg 7-21 tablet by ity of tablet 00:00: mouth [place] 00 every 6 Medical (six) Branch hours as needed for Pain (scale 4-6). ibuprofen 2020-0 Yes [id number] 800mg Take 1 [facility] 800 mg 7-21 tablet by ity of tablet 00:00: mouth [place] 00 every 6 Medical (six) Branch hours as needed for Pain (scale 4-6). ibuprofen 2020-0 Yes [id number] 800mg Take 1 [facility] 800 mg 7-21 tablet by ity of tablet 00:00: mouth [place] 00 every 6 Medical (six) Branch hours as needed for Pain (scale 4-6). ibuprofen 2020-0 Yes [id number] 800mg Take 1 [facility] 800 mg 7-21 tablet by ity of tablet 00:00: mouth [place] 00 every 6 Medical (six) Branch hours as needed for Pain (scale 4-6). ibuprofen 2020-0 Yes [id number] 800mg Take 1 [facility] 800 mg 7-21 tablet by ity of tablet 00:00: mouth [place] 00 every 6 Medical (six) Branch hours as needed for Pain (scale 4-6). ibuprofen 2020-0 Yes [id number] 800mg Take 1 [facility] 800 mg 7-21 tablet by ity of tablet 00:00: mouth [place] 00 every 6 Medical (six) Branch hours as needed for Pain (scale 4-6). ibuprofen 2020-0 Yes [id number] 800mg Take 1 [facility] 800 mg 7-21 tablet by ity of tablet 00:00: mouth [place] 00 every 6 Medical (six) Branch hours as needed for Pain (scale 4-6). ibuprofen 2020-0 Yes [id number] 800mg Take 1 [facility] 800 mg 7-21 tablet by ity of tablet 00:00: mouth [place] 00 every 6 Medical (six) Branch hours as needed for Pain (scale 4-6). ibuprofen 2020-0 Yes [id number] 800mg Take 1 [facility] 800 mg 7-21 tablet by ity of tablet 00:00: mouth [place] 00 every 6 Medical (six) Branch hours as needed for Pain (scale 4-6). ibuprofen 2020-0 Yes [id number] 800mg Take 1 [facility] 800 mg 7-21 tablet by ity of tablet 00:00: mouth [place] 00 every 6 Medical (six) Branch hours as needed for Pain (scale 4-6). ibuprofen 2020-0 Yes [id number] 800mg Take 1 [facility] 800 mg 7-21 tablet by ity of tablet 00:00: mouth [place] 00 every 6 Medical (six) Branch hours as needed for Pain (scale 4-6). ibuprofen 2020-0 Yes [id number] 800mg Take 1 [facility] 800 mg 7-21 tablet by ity of tablet 00:00: mouth [place] 00 every 6 Medical (six) Branch hours as needed for Pain (scale 4-6). ibuprofen 2020-0 Yes [id number] 800mg Take 1 [facility] 800 mg 7-21 tablet by ity of tablet 00:00: mouth [place] 00 every 6 Medical (six) Branch hours as needed for Pain (scale 4-6). ibuprofen 2020-0 Yes [id number] 800mg Take 1 [facility] 800 mg 7-21 tablet by ity of tablet 00:00: mouth [place] 00 every 6 Medical (six) Branch hours as needed for Pain (scale 4-6). ibuprofen 2020-0 Yes [id number] 800mg Take 1 [facility] 800 mg 7-21 tablet by ity of tablet 00:00: mouth [place] 00 every 6 Medical (six) Branch hours as needed for Pain (scale 4-6). ibuprofen 2020-0 Yes [id number] 800mg Take 1 [facility] 800 mg 7-21 tablet by ity of tablet 00:00: mouth [place] 00 every 6 Medical (six) Branch hours as needed for Pain (scale 4-6). ibuprofen 2020-0 2021- No [id number] 800mg Take 1 [facility] 800 mg 7-21 08-18 tablet by ity of tablet 00:00: 00:00 mouth [place] 00 :00 every 6 Medical (six) Branch hours as needed for Pain (scale 4-6). doxycycline 2019- No [id number] 100mg Take 1 [facility] hyclate 100 02-2505 capsule by i ty of mg capsule 00:00: 04:59 mouth 2 [place] 00 :00 (two) Medical times Branch daily for 14 days. metroNIDAZO 2019- No [id number] 500mg Take 1 [facility] LE 500 mg 02-25 tablet by ity of tablet 00:00: 04:59 mouth 2 [place] 00 :00 (two) Medical times Branch daily for 14 days. 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 Branch levonorgest 2020- No 1{devic 1 Device, Univers rel 10-05 e} Intrauteri ity of (LILETTA) 23:00: 21:54 [place], ONCE, [place] IUD 1 00 :00 1 dose, Machine Repairer Maintenance Fri Branch 10/05/19 at 1700, Routine levonorgest 2020- No 1{devic Un alex rel 10-05 e} ity of (LILETTA) 23:00: 21:54 [place] IUD 1 00 :00 Machine Repairer Maintenance Branch levonorgest 2020- No 1{devic 1 Device, Univers rel 10-05 e} Intrauteri ity of (LILETTA) 23:00: 21:54 ne, ONCE, [place] IUD 1 00 :00 1 dose, Machine Repairer Maintenance Fri Branch 10/05/19 at 1700, Routine ferrous 2018-08 Yes [id number] 325mg Take 1 Un alex sulfate 325 1-03 tablet by ity of mg (65 mg 00:00: mouth 2 [place] iron) 00 (two) Medical tablet times Branch daily. ibuprofen 2018-08 Yes [id number] 600mg Take 1 [facility] 600 mg 1-03 tablet by ity of tablet 00:00: mouth [place] 00 every 6 Medical (six) Branch hours as needed for Pain (scale 1-3) or Pain (scale 4-6) (Pain). Take with food or milk. 2018-08 Yes [id number] 1{tbl} Take 1 [facility] vitamin 1-03 tablet by ity of w/FA tablet 00:00: mouth [place] 00 daily. Medical Branch docusate 2018-08 Yes [id number] 240mg Take 1 U nivers calcium 240 1-03 capsule by it y of mg capsule 00:00: mouth once [place] 00 daily as Medical needed for Branch Constipati on. ferrous 2018-08 Yes [id number] 325mg Take 1 Un alex sulfate 325 1-03 tablet by ity of mg (65 mg 00:00: mouth 2 [place] iron) 00 (two) Medical tablet times Branch daily. ibuprofen 2018-08 Yes [id number] 600mg Take 1 [facility] 600 mg 1-03 tablet by ity of tablet 00:00: mouth [place] 00 every 6 Medical (six) Branch hours as needed for Pain (scale 1-3) or Pain (scale 4-6) (Pain). Take with food or milk. 2018-08 Yes [id number] 1{tbl} Take 1 [facility] vitamin 1-03 tablet by ity of w/FA tablet 00:00: mouth [place] 00 daily. Medical Branch docusate 2018-08 Yes [id number] 240mg Take 1 U nivers calcium 240 1-03 capsule by it y of mg capsule 00:00: mouth once [place] 00 daily as Medical needed for Branch Constipati on. ferrous 2018-08 Yes [id number] 325mg Take 1 Un alex sulfate 325 1-03 tablet by ity of mg (65 mg 00:00: mouth 2 [place] iron) 00 (two) Medical tablet times Branch daily. ibuprofen 2018-08 Yes [id number] 600mg Take 1 Univers 600 mg 1-03 tablet by [facility] tablet 00:00: mouth [place] 00 every 6 Medical (six) Branch hours as needed for Pain (scale 1-3) or Pain (scale 4-6) (Pain). Take with food or milk. 2018-08 Yes [id number] 1{tbl} Take 1 [facility] vitamin 1-03 tablet by [facility] of w/FA tablet 00:00: mouth [place] 00 daily. Medical Branch docusate 2018-08 Yes [id number] 240mg Take 1 [facility] nivers calcium 240 1-03 capsule by [facility] y [facility] mg capsule 00:00: mouth once [place] 00 daily as Medical needed for Branch Constipati on. ferrous 2018-08 Yes [id number] 325mg Take 1 Un alex sulfate 325 1-03 tablet by [facility] of mg (65 mg 00:00: mouth 2 [place] iron) 00 (two) Medical tablet times Branch daily. ibuprofen 2018-08 Yes [id number] 600mg Take 1 [facility] 600 mg 1-03 tablet by [facility] of tablet 00:00: mouth [place] 00 every 6 Medical (six) Branch hours as needed for Pain (scale 1-3) or Pain (scale 4-6) (Pain). Take with food or milk. 2018-08 Yes [id number] 1{tbl} Take 1 [facility] vitamin 1-03 tablet by [facility] of w/FA tablet 00:00: mouth [place] 00 daily. Medical [facility] docusate 2018-08 Yes [id number] 240mg Take 1 [facility] nivers calcium 240 1-03 capsule by [facility] y [facility] mg capsule 00:00: mouth once [place] 00 daily as Medical needed for Branch Constipati on. ferrous 2018-08 Yes [id number] 325mg Take 1 Un alex sulfate 325 1-03 tablet by [facility] of mg (65 mg 00:00: mouth 2 [place] iron) 00 (two) Medical tablet times Branch daily. ibuprofen 2018-08 Yes [id number] 600mg Take 1 [facility] 600 mg 1-03 tablet by [facility] of tablet 00:00: mouth [place] 00 every 6 Medical (six) Branch hours as needed for Pain (scale 1-3) or Pain (scale 4-6) (Pain). Take with food or milk. 2018-08 Yes [id number] 1{tbl} Take 1 [facility] vitamin 1-03 tablet by [facility] of w/FA tablet 00:00: mouth [place] 00 daily. Medical Branch docusate 2018-08 Yes [id number] 240mg Take 1 [facility] nivers calcium 240 1-03 capsule by [facility] y of mg capsule 00:00: mouth once [place] 00 daily as Medical needed for Branch Constipati on. ferrous 2018-08 Yes [id number] 325mg Take 1 Un alex sulfate 325 1-03 tablet by [facility] of mg (65 mg 00:00: mouth 2 [place] iron) 00 (two) Medical tablet times Branch daily. ibuprofen 2018-08 Yes [id number] 600mg Take 1 [facility] 600 mg 1-03 tablet by [facility] of tablet 00:00: mouth [place] 00 every 6 Medical (six) Branch hours as needed for Pain (scale 1-3) or Pain (scale 4-6) (Pain). Take with food or milk. 2018-08 Yes [id number] 1{tbl} Take 1 [facility] vitamin 1-03 tablet by [facility] of w/FA tablet 00:00: mouth [place] 00 daily. Medical Branch docusate 2018-08 Yes [id number] 240mg Take 1 [facility] nivers calcium 240 1-03 capsule by [facility] y of mg capsule 00:00: mouth once [place] 00 daily as Medical needed for Branch Constipati on. ferrous 2018-08 Yes [id number] 325mg Take 1 Un alex sulfate 325 1-03 tablet by [facility] of mg (65 mg 00:00: mouth 2 [place] iron) 00 (two) Medical tablet times Branch daily. ibuprofen 2018-08 Yes [id number] 600mg Take 1 [facility] 600 mg 1-03 tablet by [facility] of tablet 00:00: mouth [place] 00 every 6 Medical (six) Branch hours as needed for Pain (scale 1-3) or Pain (scale 4-6) (Pain). Take with food or milk. 2018-08 Yes [id number] 1{tbl} Take 1 [facility] vitamin 1-03 tablet by [facility] of w/FA tablet 00:00: mouth [place] 00 daily. Medical Branch docusate 2018-08 Yes [id number] 240mg Take 1 [facility] nivers calcium 240 1-03 capsule by [facility] of mg capsule 00:00: mouth once [place] 00 daily as Medical needed for Branch Constipati on. ferrous 2018-08 Yes [id number] 325mg Take 1 Un alex sulfate 325 1-03 tablet by [facility] of mg (65 mg 00:00: mouth 2 [place] iron) 00 (two) Medical tablet times Branch daily. ibuprofen 2018-08 Yes [id number] 600mg Take 1 [facility] 600 mg 1-03 tablet by [facility] of tablet 00:00: mouth [place] 00 every 6 Medical (six) Branch hours as needed for Pain (scale 1-3) or Pain (scale 4-6) (Pain). Take with food or milk. 2018-08 Yes [id number] 1{tbl} Take 1 [facility] vitamin 1-03 tablet by [facility] of w/FA tablet 00:00: mouth [place] 00 daily. Medical Branch docusate 2018-08 Yes [id number] 240mg Take 1 [facility] nivers calcium 240 1-03 capsule by [facility] y of mg capsule 00:00: mouth once [place] 00 daily as Medical needed for Branch Constipati on. ferrous 2018-08 Yes [id number] 325mg Take 1 Un alex sulfate 325 1-03 tablet by [facility] of mg (65 mg 00:00: mouth 2 [place] iron) 00 (two) Medical tablet times Branch daily. ibuprofen 2018-08 Yes [id number] 600mg Take 1 [facility] 600 mg 1-03 tablet by [facility] of tablet 00:00: mouth [place] 00 every 6 Medical (six) Branch hours as needed for Pain (scale 1-3) or Pain (scale 4-6) (Pain). Take with food or milk. 2018-08 Yes [id number] 1{tbl} Take 1 [facility] vitamin 1-03 tablet by [facility] of w/FA tablet 00:00: mouth [place] 00 daily. Medical Branch docusate 2018-08 Yes [id number] 240mg Take 1 [facility] nivers calcium 240 1-03 capsule by [facility] y of mg capsule 00:00: mouth once [place] 00 daily as Medical needed for Branch Constipati on. ferrous 2018-08 Yes [id number] 325mg Take 1 Un alex sulfate 325 1-03 tablet by [facility] of mg (65 mg 00:00: mouth 2 [place] iron) 00 (two) Medical tablet times Branch daily. ibuprofen 2018-08 Yes [id number] 600mg Take 1 [facility] 600 mg 1-03 tablet by [facility] of tablet 00:00: mouth [place] 00 every 6 Medical (six) Branch hours as needed for Pain (scale 1-3) or Pain (scale 4-6) (Pain). Take with food or milk. 2018-08 Yes [id number] 1{tbl} Take 1 [facility] vitamin 1-03 tablet by [facility] of w/FA tablet 00:00: mouth [place] 00 daily. Medical Branch docusate 2018-08 Yes [id number] 240mg Take 1 [facility] nivers calcium 240 1-03 capsule by [facility] y of mg capsule 00:00: mouth once [place] 00 daily as Medical needed for Branch Constipati on. ferrous 2018- Yes [id number] 325mg Take 1 Un alex sulfate 325 1-03 tablet by [facility] of mg (65 mg 00:00: mouth 2 [place] iron) 00 (two) Medical tablet times Branch daily. ibuprofen 2018-08 Yes [id number] 600mg Take 1 [facility] 600 mg 1-03 tablet by [facility] of tablet 00:00: mouth [place] 00 every 6 Medical (six) Branch hours as needed for Pain (scale 1-3) or Pain (scale 4-6) (Pain). Take with food or milk. 2018-08 Yes [id number] 1{tbl} Take 1 [facility] vitamin 1-03 tablet by [facility] of w/FA tablet 00:00: mouth [place] 00 daily. Medical Branch docusate 2018-08 Yes [id number] 240mg Take 1 [facility] nivers calcium 240 1-03 capsule by [facility] y of mg capsule 00:00: mouth once [place] 00 daily as Medical needed for Branch Constipati on. ferrous 2018-08 Yes [id number] 325mg Take 1 Un alex sulfate 325 1-03 tablet by [facility] of mg (65 mg 00:00: mouth 2 [place] iron) 00 (two) Medical tablet times Branch daily. ibuprofen 2018-08 Yes [id number] 600mg Take 1 [facility] 600 mg 1-03 tablet by [facility] of tablet 00:00: mouth [place] 00 every 6 Medical (six) Branch hours as needed for Pain (scale 1-3) or Pain (scale 4-6) (Pain). Take with food or milk. 2018-08 Yes [id number] 1{tbl} Take 1 [facility] vitamin 1-03 tablet by [facility] of w/FA tablet 00:00: mouth [place] 00 daily. Medical Branch docusate 2018-08 Yes [id number] 240mg Take 1 [facility] nivers calcium 240 1-03 capsule by [facility] of mg capsule 00:00: mouth once [place] 00 daily as Medical needed for Branch Constipati on. ferrous 2018-08 Yes [id number] 325mg Take 1 Un alex sulfate 325 1-03 tablet by [facility] of mg (65 mg 00:00: mouth 2 [place] iron) 00 (two) Medical tablet times Branch daily. ibuprofen 2018-08 Yes [id number] 600mg Take 1 [facility] 600 mg 1-03 tablet by [facility] of tablet 00:00: mouth [place] 00 every 6 Medical (six) Branch hours as needed for Pain (scale 1-3) or Pain (scale 4-6) (Pain). Take with food or milk. 2018-08 Yes [id number] 1{tbl} Take 1 [facility] vitamin 1-03 tablet by [facility] of w/FA tablet 00:00: mouth [place] 00 daily. Medical Branch docusate 2018-08 Yes [id number] 240mg Take 1 [facility] nivers calcium 240 1-03 capsule by [facility] y of mg capsule 00:00: mouth once [place] 00 daily as Medical needed for Branch Constipati on. ferrous 2018-08 Yes [id number] 325mg Take 1 Un alex sulfate 325 1-03 tablet by [facility] of mg (65 mg 00:00: mouth 2 [place] iron) 00 (two) Medical tablet times Branch daily. ibuprofen 2018-08 Yes [id number] 600mg Take 1 [facility] 600 mg 1-03 tablet by [facility] of tablet 00:00: mouth [place] 00 every 6 Medical (six) Branch hours as needed for Pain (scale 1-3) or Pain (scale 4-6) (Pain). Take with food or milk. 2018-08 Yes [id number] 1{tbl} Take 1 [facility] vitamin 1-03 tablet by [facility] of w/FA tablet 00:00: mouth [place] 00 daily. Medical Branch docusate 2018-08 Yes [id number] 240mg Take 1 [facility] nivers calcium 240 1-03 capsule by [facility] y of mg capsule 00:00: mouth once [place] 00 daily as Medical needed for Branch Constipati on. ferrous 2018-08 Yes [id number] 325mg Take 1 Un alex sulfate 325 1-03 tablet by [facility] of mg (65 mg 00:00: mouth 2 [place] iron) 00 (two) Medical tablet times Branch daily. ibuprofen 2018-08 Yes [id number] 600mg Take 1 [facility] 600 mg 1-03 tablet by [facility] of tablet 00:00: mouth [place] 00 every 6 Medical (six) Branch hours as needed for Pain (scale 1-3) or Pain (scale 4-6) (Pain). Take with food or milk. 2018-08 Yes [id number] 1{tbl} Take 1 [facility] vitamin 1-03 tablet by [facility] of w/FA tablet 00:00: mouth [place] 00 daily. Medical Branch docusate 2018-08 Yes [id number] 240mg Take 1 [facility] nivers calcium 240 1-03 capsule by [facility] y of mg capsule 00:00: mouth once [place] 00 daily as Medical needed for Branch Constipati on. ferrous 2018-08 Yes [id number] 325mg Take 1 Un alex sulfate 325 1-03 tablet by [facility] of mg (65 mg 00:00: mouth 2 [place] iron) 00 (two) Medical tablet times Branch daily. ibuprofen 2018-08 Yes [id number] 600mg Take 1 [facility] 600 mg 1-03 tablet by [facility] of tablet 00:00: mouth [place] 00 every 6 Medical (six) Branch hours as needed for Pain (scale 1-3) or Pain (scale 4-6) (Pain). Take with food or milk. 2018-08 Yes [id number] 1{tbl} Take 1 [facility] vitamin 1-03 tablet by [facility] of w/FA tablet 00:00: mouth [place] 00 daily. Medical Branch docusate 2018-08 Yes [id number] 240mg Take 1 [facility] nivers calcium 240 1-03 capsule by [facility] y of mg capsule 00:00: mouth once [place] 00 daily as Medical needed for Branch Constipati on. ferrous 2018-08 Yes [id number] 325mg Take 1 Un alex sulfate 325 1-03 tablet by [facility] of mg (65 mg 00:00: mouth 2 [place] iron) 00 (two) Medical tablet times Branch daily. ibuprofen 2018-08 Yes [id number] 600mg Take 1 [facility] 600 mg 1-03 tablet by [facility] of tablet 00:00: mouth [place] 00 every 6 Medical (six) Branch hours as needed for Pain (scale 1-3) or Pain (scale 4-6) (Pain). Take with food or milk. 2018-08 Yes [id number] 1{tbl} Take 1 [facility] vitamin 1-03 tablet by [facility] of w/FA tablet 00:00: mouth [place] 00 daily. Medical Branch docusate 2018-08 Yes [id number] 240mg Take 1 [facility] nivers calcium 240 1-03 capsule by [facility] y of mg capsule 00:00: mouth once [place] 00 daily as Medical needed for Branch Constipati on. ferrous 2018-08 Yes [id number] 325mg Take 1 Un alex sulfate 325 1-03 tablet by [facility] of mg (65 mg 00:00: mouth 2 [place] iron) 00 (two) Medical tablet times Branch daily. ibuprofen 2018-08 Yes [id number] 600mg Take 1 [facility] 600 mg 1-03 tablet by [facility] of tablet 00:00: mouth [place] 00 every 6 Medical (six) Branch hours as needed for Pain (scale 1-3) or Pain (scale 4-6) (Pain). Take with food or milk. 2018-08 Yes [id number] 1{tbl} Take 1 [facility] vitamin 1-03 tablet by [facility] of w/FA tablet 00:00: mouth [place] 00 daily. Medical Branch docusate 2018-08 Yes [id number] 240mg Take 1 [facility] nivers calcium 240 1-03 capsule by [facility] y of mg capsule 00:00: mouth once [place] 00 daily as Medical needed for Branch Constipati on. ferrous 2018-08 Yes [id number] 325mg Take 1 Un alex sulfate 325 1-03 tablet by [facility]y of mg (65 mg 00:00: mouth 2 [place] iron) 00 (two) Medical tablet times Branch daily. ibuprofen 2018-08 Yes [id number] 600mg Take 1 [facility] 600 mg 1-03 tablet by [facility] of tablet 00:00: mouth [place] 00 every 6 Medical (six) Branch hours as needed for Pain (scale 1-3) or Pain (scale 4-6) (Pain). Take with food or milk. 2018-08 Yes [id number] 1{tbl} Take 1 [facility] vitamin 1-03 tablet by [facility] w/FA tablet 00:00: mouth [place] [facility] [id number] 240mg Take 1 [facility] nivers calcium 240 1-03 capsule by it y of mg capsule 00:00: mouth once [place] 00 daily as Medical needed for Branch Constipati on. ferrous 2018-08 Yes [id number] 325mg Take 1 Un alex sulfate 325 1-03 tablet by ity of mg (65 mg 00:00: mouth 2 [place] iron) 00 (two) Medical tablet times Branch daily. ibuprofen 2018-08 Yes [id number] 600mg Take 1 [facility] 600 mg 1-03 tablet by [facility] of tablet 00:00: mouth [place] 00 every 6 Medical (six) Branch hours as needed for Pain (scale 1-3) or Pain (scale 4-6) (Pain). Take with food or milk. 2018-08 Yes [id number] 1{tbl} Take 1 [facility] vitamin 1-03 tablet by [facility] of w/FA tablet 00:00: mouth [place] 00 [facility]. [facility] [id number] 240mg Take 1 [facility] nivers calcium 240 1-03 capsule by it y of mg capsule 00:00: mouth once [place] 00 daily as Medical needed for Branch Constipati on. ferrous 2018-08 Yes [id number] 325mg Take 1 Un alex sulfate 325 1-03 tablet by ity of mg (65 mg 00:00: mouth 2 [place] iron) 00 (two) Medical tablet times Branch daily. ibuprofen 2018-08 Yes [id number] 600mg Take 1 [facility] 600 mg 1-03 tablet by [facility] of tablet 00:00: mouth [place] 00 every 6 Medical (six) Branch hours as needed for Pain (scale 1-3) or Pain (scale 4-6) (Pain). Take with food or milk. 2018-08 Yes [id number] 1{tbl} Take 1 [facility] vitamin 1-03 tablet by [facility] of w/FA tablet 00:00: mouth [place] 00 daily. Medical Branch docusate 2018-08 Yes [id number] 240mg Take 1 [facility] nivers calcium 240 1-03 capsule by it y of mg capsule 00:00: mouth once [place] 00 daily as Medical needed for Branch Constipati on. ferrous 2018-08 Yes [id number] 325mg Take 1 Un alex sulfate 325 1-03 tablet by it[facility] of mg (65 mg 00:00: mouth 2 [place] iron) 00 (two) Medical tablet times Branch daily. ibuprofen 2018-08 Yes [id number] 600mg Take 1 [facility] 600 mg 1-03 tablet by [facility] of tablet 00:00: mouth [place] 00 every 6 Medical (six) Branch hours as needed for Pain (scale 1-3) or Pain (scale 4-6) (Pain). Take with food or milk. 2018-08 Yes [id number] 1{tbl} Take 1 [facility] vitamin 1-03 tablet by [facility] of w/FA tablet 00:00: mouth [place] 00 daily. Medical Branch docusate 2018-08 Yes [id number] 240mg Take 1 [facility] nivers calcium 240 1-03 capsule by [facility] y of mg capsule 00:00: mouth once [place] 00 daily as Medical needed for Branch Constipati on. ferrous 2018-08 Yes [id number] 325mg Take 1 Un alex sulfate 325 1-03 tablet by ity of mg (65 mg 00:00: mouth 2 [place] iron) 00 (two) Medical tablet times Branch daily. ibuprofen 2018-08 Yes [id number] 600mg Take 1 [facility] 600 mg 1-03 tablet by [facility] of tablet 00:00: mouth [place] 00 every 6 Medical (six) Branch hours as needed for Pain (scale 1-3) or Pain (scale 4-6) (Pain). Take with food or milk. 2018-08 Yes [id number] 1{tbl} Take 1 [facility] vitamin 1-03 tablet by [facility] of w/FA tablet 00:00: mouth [place] 00 daily. Medical [facility] docusate 2018-08 Yes [id number] 240mg Take 1 [facility] nivers calcium 240 1-03 capsule by it y of mg capsule 00:00: mouth once [place] 00 daily as Medical needed for Branch Constipati on. ferrous 2018-08 Yes [id number] 325mg Take 1 Un alex sulfate 325 1-03 tablet by [facility]y of mg (65 mg 00:00: mouth 2 [place] iron) 00 (two) Medical tablet times Branch daily. ibuprofen 2018-08 Yes [id number] 600mg Take 1 [facility] 600 mg 1-03 tablet by [facility] of tablet 00:00: mouth [place] 00 every 6 Medical (six) Branch hours as needed for Pain (scale 1-3) or Pain (scale 4-6) (Pain). Take with food or milk. 2018-08 Yes [id number] 1{tbl} Take 1 [facility] vitamin 1-03 tablet by [facility] of w/FA tablet 00:00: mouth [place] [facility]. [facility] [id number] 240mg Take 1 [facility] nivers calcium 240 1-03 capsule by it y of mg capsule 00:00: mouth once [place] 00 daily as Medical needed for Branch Constipati on. ferrous 2018-08 Yes [id number] 325mg Take 1 Un alex sulfate 325 1-03 tablet by ity of mg (65 mg 00:00: mouth 2 [place] iron) 00 (two) Medical tablet times Branch daily. ibuprofen 2018-08 Yes [id number] 600mg Take 1 [facility] 600 mg 1-03 tablet by [facility] of tablet 00:00: mouth [place] 00 every 6 Medical (six) Branch hours as needed for Pain (scale 1-3) or Pain (scale 4-6) (Pain). Take with food or milk. 2018-08 Yes [id number] 1{tbl} Take 1 [facility] vitamin 1-03 tablet by [facility] of w/FA tablet 00:00: mouth [place] 00 daily. Medical Branch docusate 2018-08 Yes [id number] 240mg Take 1 [facility] nivers calcium 240 1-03 capsule by it y of mg capsule 00:00: mouth once [place] 00 daily as Medical needed for Branch Constipati on. ferrous 2018-08 Yes [id number] 325mg Take 1 Un alex sulfate 325 1-03 tablet by [facility]y of mg (65 mg 00:00: mouth 2 [place] iron) 00 (two) Medical tablet times Branch daily. ibuprofen 2018-08 Yes [id number] 600mg Take 1 [facility] 600 mg 1-03 tablet by [facility] of tablet 00:00: mouth [place] 00 every 6 Medical (six) Branch hours as needed for Pain (scale 1-3) or Pain (scale 4-6) (Pain). Take with food or milk. 2018-08 Yes [id number] 1{tbl} Take 1 [facility] vitamin 1-03 tablet by [facility] of w/FA tablet 00:00: mouth [place] 00 daily. Medical Branch docusate 2018-08 Yes [id number] 240mg Take 1 [facility] nivers calcium 240 1-03 capsule by it y of mg capsule 00:00: mouth once [place] 00 daily as Medical needed for Branch Constipati on. ferrous 2018-08 Yes [id number] 325mg Take 1 Un alex sulfate 325 1-03 tablet by [facility]y of mg (65 mg 00:00: mouth 2 [place] iron) 00 (two) Medical tablet times Branch daily. ibuprofen 2018-08 Yes [id number] 600mg Take 1 [facility] 600 mg 1-03 tablet by [facility] of tablet 00:00: mouth [place] 00 every 6 Medical (six) Branch hours as needed for Pain (scale 1-3) or Pain (scale 4-6) (Pain). Take with food or milk. 2018-08 Yes [id number] 1{tbl} Take 1 [facility] vitamin 1-03 tablet by [facility] of w/FA tablet 00:00: mouth [place] 00 daily. Medical [facility] docusate 2018-08 Yes [id number] 240mg Take 1 [facility] nivers calcium 240 1-03 capsule by [facility] y of mg capsule 00:00: mouth once [place] 00 daily as Medical needed for Branch Constipati on. ferrous 2018-08 Yes [id number] 325mg Take 1 Un alex sulfate 325 1-03 tablet by [facility] of mg (65 mg 00:00: mouth 2 [place] iron) 00 (two) Medical tablet times Branch daily. ibuprofen 2018-08 Yes [id number] 600mg Take 1 [facility] 600 mg 1-03 tablet by [facility] of tablet 00:00: mouth [place] 00 every 6 Medical (six) Branch hours as needed for Pain (scale 1-3) or Pain (scale 4-6) (Pain). Take with food or milk. 2018-08 Yes [id number] 1{tbl} Take 1 [facility] vitamin 1-03 tablet by [facility] of w/FA tablet 00:00: mouth [place] 00 daily. Medical Branch docusate 2018-08 Yes [id number] 240mg Take 1 [facility] nivers calcium 240 1-03 capsule by [facility] of mg capsule 00:00: mouth once [place] 00 daily as Medical needed for Branch Constipati on. ferrous 2018-08 Yes [id number] 325mg Take 1 Un alex sulfate 325 1-03 tablet by [facility] of mg (65 mg 00:00: mouth 2 [place] iron) 00 (two) Medical tablet times Branch daily. ibuprofen 2018-08 Yes [id number] 600mg Take 1 [facility] 600 mg 1-03 tablet by [facility] of tablet 00:00: mouth [place] 00 every 6 Medical (six) Branch hours as needed for Pain (scale 1-3) or Pain (scale 4-6) (Pain). Take with food or milk. 2018-08 Yes [id number] 1{tbl} Take 1 [facility] vitamin 1-03 tablet by [facility] of w/FA tablet 00:00: mouth [place] 00 daily. Medical [facility] docusate 2018-08 Yes [id number] 240mg Take 1 [facility] nivers calcium 240 1-03 capsule by [facility] of mg capsule 00:00: mouth once [place] 00 daily as Medical needed for Branch Constipati on. ferrous 2018-08 Yes [id number] 325mg Take 1 Un alex sulfate 325 1-03 tablet by [facility] of mg (65 mg 00:00: mouth 2 [place] iron) 00 (two) Medical tablet times Branch daily. ibuprofen 2018-08 Yes [id number] 600mg Take 1 [facility] 600 mg 1-03 tablet by [facility] of tablet 00:00: mouth [place] 00 every 6 Medical (six) Branch hours as needed for Pain (scale 1-3) or Pain (scale 4-6) (Pain). Take with food or milk. 2018-08 Yes [id number] 1{tbl} Take 1 [facility] vitamin 1-03 tablet by [facility] of w/FA tablet 00:00: mouth [place] 00 daily. Medical [facility] docusate 2018-08 Yes [id number] 240mg Take 1 [facility] nivers calcium 240 1-03 capsule by [facility] y of mg capsule 00:00: mouth once [place] 00 daily as Medical needed for Branch Constipati on. ferrous 2018-08 Yes [id number] 325mg Take 1 Un alex sulfate 325 1-03 tablet by [facility] of mg (65 mg 00:00: mouth 2 [place] iron) 00 (two) Medical tablet times Branch daily. ibuprofen 2018-08 Yes [id number] 600mg Take 1 [facility] 600 mg 1-03 tablet by [facility] of tablet 00:00: mouth [place] 00 every 6 Medical (six) Branch hours as needed for Pain (scale 1-3) or Pain (scale 4-6) (Pain). Take with food or milk. 2018-08 Yes [id number] 1{tbl} Take 1 [facility] vitamin 1-03 tablet by [facility] of w/FA tablet 00:00: mouth [place] 00 daily. Medical [facility] docusate 2018-08 Yes [id number] 240mg Take 1 [facility] nivers calcium 240 1-03 capsule by [facility] y of mg capsule 00:00: mouth once [place] 00 daily as Medical needed for Branch Constipati on. ferrous 2018-08 Yes [id number] 325mg Take 1 Un alex sulfate 325 1-03 tablet by [facility] of mg (65 mg 00:00: mouth 2 [place] iron) 00 (two) Medical tablet times Branch daily. ibuprofen 2018-08 Yes [id number] 600mg Take 1 [facility] 600 mg 1-03 tablet by [facility] of tablet 00:00: mouth [place] 00 every 6 Medical (six) Branch hours as needed for Pain (scale 1-3) or Pain (scale 4-6) (Pain). Take with food or milk. 2018-08 Yes [id number] 1{tbl} Take 1 [facility] vitamin 1-03 tablet by [facility] of w/FA tablet 00:00: mouth [place] 00 daily. Medical [facility] docusate 2018-08 Yes [id number] 240mg Take 1 [facility] nivers calcium 240 1-03 capsule by it y of mg capsule 00:00: mouth once [place] 00 daily as Medical needed for Branch Constipati on. ferrous 2018-08 Yes [id number] 325mg Take 1 Un alex sulfate 325 1-03 tablet by [facility] of mg (65 mg 00:00: mouth 2 [place] iron) 00 (two) Medical tablet times Branch daily. ibuprofen 2018-08 Yes [id number] 600mg Take 1 [facility] 600 mg 1-03 tablet by [facility] of tablet 00:00: mouth [place] 00 every 6 Medical (six) Branch hours as needed for Pain (scale 1-3) or Pain (scale 4-6) (Pain). Take with food or milk. 2018-08 Yes [id number] 1{tbl} Take 1 [facility] vitamin 1-03 tablet by [facility] of w/FA tablet 00:00: mouth [place] 00 daily. Medical [facility] docusate 2018-08 Yes [id number] 240mg Take 1 [facility] n[facility] calcium 240 1-03 capsule by [facility] y of mg capsule 00:00: mouth once [place] 00 daily as Medical needed for Branch Constipati on. ferrous 2018-08 Yes [id number] 325mg Take 1 Un alex sulfate 325 1-03 tablet by [facility]y of mg (65 mg 00:00: mouth 2 [place] iron) 00 (two) Medical tablet times Branch daily. ibuprofen 2018-08 Yes [id number] 600mg Take 1 [facility] 600 mg 1-03 tablet by [facility] of tablet 00:00: mouth [place] 00 every 6 Medical (six) Branch hours as needed for Pain (scale 1-3) or Pain (scale 4-6) (Pain). Take with food or milk. 2018-08 Yes [id number] 1{tbl} Take 1 [facility] vitamin 1-03 tablet by [facility] of w/FA tablet 00:00: mouth [place] 00 daily. Medical Branch docusate 2018-08 Yes [id number] 240mg Take 1 [facility] nivers calcium 240 1-03 capsule by [facility] y of mg capsule 00:00: mouth once [place] 00 daily as Medical needed for Branch Constipati on. ferrous 2018-08 Yes [id number] 325mg Take 1 Un alex sulfate 325 1-03 tablet by [facility]y of mg (65 mg 00:00: mouth 2 [place] iron) 00 (two) Medical tablet times Branch daily. ibuprofen 2018-08 Yes [id number] 600mg Take 1 [facility] 600 mg 1-03 tablet by [facility] of tablet 00:00: mouth [place] 00 every 6 Medical (six) Branch hours as needed for Pain (scale 1-3) or Pain (scale 4-6) (Pain). Take with food or milk. 2018-08 Yes [id number] 1{tbl} Take 1 [facility] vitamin 1-03 tablet by [facility] of w/FA tablet 00:00: mouth [place] 00 daily. Medical Branch docusate 2018-08 Yes [id number] 240mg Take 1 [facility] nivers calcium 240 1-03 capsule by [facility] y of mg capsule 00:00: mouth once [place] 00 daily as Medical needed for Branch Constipati on. ferrous 2018-08 Yes [id number] 325mg Take 1 Un alex sulfate 325 1-03 tablet by [facility]y of mg (65 mg 00:00: mouth 2 [place] iron) 00 (two) Medical tablet times Branch daily. ibuprofen 2018-08 Yes [id number] 600mg Take 1 [facility] 600 mg 1-03 tablet by [facility] of tablet 00:00: mouth [place] 00 every 6 Medical (six) Branch hours as needed for Pain (scale 1-3) or Pain (scale 4-6) (Pain). Take with food or milk. 2018-08 Yes [id number] 1{tbl} Take 1 [facility] vitamin 1-03 tablet by [facility] of w/FA tablet 00:00: mouth [place] 00 daily. Medical Branch docusate 2018-08 Yes [id number] 240mg Take 1 [facility] nivers calcium 240 1-03 capsule by [facility] y of mg capsule 00:00: mouth once [place] 00 daily as Medical needed for Branch Constipati on. ferrous 2018-08 Yes [id number] 325mg Take 1 Un alex sulfate 325 1-03 tablet by [facility]y of mg (65 mg 00:00: mouth 2 [place] iron) 00 (two) Medical tablet times Branch daily. ibuprofen 2018-08 Yes [id number] 600mg Take 1 [facility] 600 mg 1-03 tablet by [facility] of tablet 00:00: mouth [place] 00 every 6 Medical (six) Branch hours as needed for Pain (scale 1-3) or Pain (scale 4-6) (Pain). Take with food or milk. 2018-08 Yes [id number] 1{tbl} Take 1 [facility] vitamin 1-03 tablet by [facility] w/FA tablet 00:00: mouth [place] 00 daily. Medical Branch docusate 2018-08 Yes [id number] 240mg Take 1 [facility] calcium 240 1-03 capsule by it y of mg capsule 00:00: mouth once [place] 00 daily as Medical needed for Branch Constipati on. ferrous 2018-08 Yes [id number] 325mg Take 1 Un alex sulfate 325 1-03 tablet by [facility] of mg (65 mg 00:00: mouth 2 [place] iron) 00 (two) Medical tablet times Branch daily. ibuprofen 2018-08 Yes [id number] 600mg Take 1 [facility] 600 mg 1-03 tablet by [facility] of tablet 00:00: mouth [place] 00 every 6 Medical (six) Branch hours as needed for Pain (scale 1-3) or Pain (scale 4-6) (Pain). Take with food or milk. 2018-08 Yes [id number] 1{tbl} Take 1 [facility] vitamin 1-03 tablet by [facility] of w/FA tablet 00:00: mouth [place] 00 daily. Medical Branch docusate 2018-08 Yes [id number] 240mg Take 1 [facility] n[facility] calcium 240 1-03 capsule by [facility] y of mg capsule 00:00: mouth once [place] 00 daily as Medical needed for Branch Constipati on. ferrous 2018-08 Yes [id number] 325mg Take 1 Un alex sulfate 325 1-03 tablet by [facility] of mg (65 mg 00:00: mouth 2 [place] iron) 00 (two) Medical tablet times Branch daily. ibuprofen 2018-08 Yes [id number] 600mg Take 1 [facility] 600 mg 1-03 tablet by [facility] of tablet 00:00: mouth [place] 00 every 6 Medical (six) Branch hours as needed for Pain (scale 1-3) or Pain (scale 4-6) (Pain). Take with food or milk. 2018-08 Yes [id number] 1{tbl} Take 1 [facility] vitamin 1-03 tablet by [facility] w/FA tablet 00:00: mouth [place] [facility] [id number] 240mg Take 1 [facility] n[facility] calcium 240 1-03 capsule by it y of mg capsule 00:00: mouth once [place] 00 daily as Medical needed for Branch Constipati on. ferrous 2018-08 Yes [id number] 325mg Take 1 Un alex sulfate 325 1-03 tablet by [facility] of mg (65 mg 00:00: mouth 2 [place] iron) 00 (two) Medical tablet times Branch daily. ibuprofen 2018-08 Yes [id number] 600mg Take 1 [facility] 600 mg 1-03 tablet by [facility] of tablet 00:00: mouth [place] 00 every 6 Medical (six) Branch hours as needed for Pain (scale 1-3) or Pain (scale 4-6) (Pain). Take with food or milk. 2018-08 Yes [id number] 1{tbl} Take 1 [facility] vitamin 1-03 tablet by [facility] of w/FA tablet 00:00: mouth [place] 00 daily. Medical Branch docusate 2018-08 Yes [id number] 240mg Take 1 [facility] calcium 240 1-03 capsule by [facility] of mg capsule 00:00: mouth once [place] 00 daily as Medical needed for Branch Constipati on. ferrous 2018-08 Yes [id number] 325mg Take 1 Un alex sulfate 325 1-03 tablet by [facility] of mg (65 mg 00:00: mouth 2 [place] iron) 00 (two) Medical tablet times Branch daily. ibuprofen 2018-08 Yes [id number] 600mg Take 1 [facility] 600 mg 1-03 tablet by [facility] of tablet 00:00: mouth [place] 00 every 6 Medical (six) Branch hours as needed for Pain (scale 1-3) or Pain (scale 4-6) (Pain). Take with food or milk. 2018-08 Yes [id number] 1{tbl} Take 1 [facility] vitamin 1-03 tablet by [facility] of w/FA tablet 00:00: mouth [place] 00 daily. Medical Branch docusate 2018-08 Yes [id number] 240mg Take 1 [facility] n[facility] calcium 240 1-03 capsule by [facility] y of mg capsule 00:00: mouth once [place] 00 daily as Medical needed for Branch Constipati on. ferrous 2018-08 Yes [id number] 325mg Take 1 [facility] alex sulfate 325 1-03 tablet by [facility] of mg (65 mg 00:00: mouth 2 [place] iron) 00 (two) Medical tablet times Branch daily. ibuprofen 2018-08 Yes [id number] 600mg Take 1 [facility] 600 mg 1-03 tablet by [facility] of tablet 00:00: mouth [place] 00 every 6 Medical (six) Branch hours as needed for Pain (scale 1-3) or Pain (scale 4-6) (Pain). Take with food or milk. 2018-08 Yes [id number] 1{tbl} Take 1 [facility] vitamin 1-03 tablet by [facility] of w/FA tablet 00:00: mouth [place] 00 daily. Medical Branch docusate 2018-08 Yes [id number] 240mg Take 1 [facility] calcium 240 1-03 capsule by [facility] y of mg capsule 00:00: mouth once [place] 00 daily as Medical needed for Branch Constipati on. ferrous 2018-08 Yes [id number] 325mg Take 1 [facility] alex sulfate 325 1-03 tablet by [facility] of mg (65 mg 00:00: mouth 2 [place] iron) 00 (two) Medical tablet times Branch daily. ibuprofen 2018-08 Yes [id number] 600mg Take 1 [facility] 600 mg 1-03 tablet by [facility] of tablet 00:00: mouth [place] 00 every 6 Medical (six) Branch hours as needed for Pain (scale 1-3) or Pain (scale 4-6) (Pain). Take with food or milk. 2018-08 Yes [id number] 1{tbl} Take 1 [facility] vitamin 1-03 tablet by [facility] of w/FA tablet 00:00: mouth [place] 00 daily. Medical Branch docusate 2018-08 Yes [id number] 240mg Take 1 [facility] calcium 240 1-03 capsule by [facility] y of mg capsule 00:00: mouth once [place] 00 daily as Medical needed for Branch Constipati on. ferrous 2018-08 Yes [id number] 325mg Take 1 [facility] alex sulfate 325 1-03 tablet by [facility] of mg (65 mg 00:00: mouth 2 [place] iron) 00 (two) Medical tablet times Branch daily. ibuprofen 2018-08 Yes [id number] 600mg Take 1 [facility] 600 mg 1-03 tablet by [facility] of tablet 00:00: mouth [place] 00 every 6 Medical (six) Branch hours as needed for Pain (scale 1-3) or Pain (scale 4-6) (Pain). Take with food or milk. 2018-08 Yes [id number] 1{tbl} Take 1 [facility] vitamin 1-03 tablet by [facility] of w/FA tablet 00:00: mouth [place] 00 daily. Medical Branch docusate 2018-08 Yes [id number] 240mg Take 1 [facility] calcium 240 1-03 capsule by [facility] y of mg capsule 00:00: mouth once [place] 00 daily as Medical needed for Branch Constipati on. ferrous 2018-08 Yes [id number] 325mg Take 1 [facility] alex sulfate 325 1-03 tablet by [facility] of mg (65 mg 00:00: mouth 2 [place] iron) 00 (two) Medical tablet times Branch daily. ibuprofen 2018-08 Yes [id number] 600mg Take 1 [facility] 600 mg 1-03 tablet by [facility] of tablet 00:00: mouth [place] 00 every 6 Medical (six) Branch hours as needed for Pain (scale 1-3) or Pain (scale 4-6) (Pain). Take with food or milk. 2018-08 Yes [id number] 1{tbl} Take 1 [facility] vitamin 1-03 tablet by [facility] of w/FA tablet 00:00: mouth [place] 00 daily. Medical Branch docusate 2018-08 Yes [id number] 240mg Take 1 [facility] calcium 240 1-03 capsule by [facility] of mg capsule 00:00: mouth once [place] 00 daily as Medical needed for Branch Constipati on. ferrous 2018-08 Yes [id number] 325mg Take 1 [facility] alex sulfate 325 1-03 tablet by [facility] of mg (65 mg 00:00: mouth 2 [place] iron) 00 (two) Medical tablet times Branch daily. ibuprofen 2018-08 Yes [id number] 600mg Take 1 [facility] 600 mg 1-03 tablet by [facility] of tablet 00:00: mouth [place] 00 every 6 Medical (six) Branch hours as needed for Pain (scale 1-3) or Pain (scale 4-6) (Pain). Take with food or milk. 2018-08 Yes [id number] 1{tbl} Take 1 [facility] vitamin 1-03 tablet by [facility] of w/FA tablet 00:00: mouth [place] 00 daily. Medical Branch docusate 2018-08 Yes [id number] 240mg Take 1 [facility] n[facility] calcium 240 1-03 capsule by [facility] of mg capsule 00:00: mouth once [place] 00 daily as Medical needed for Branch Constipati on. ferrous 2018-08 Yes [id number] 325mg Take 1 [facility] alex sulfate 325 1-03 tablet by [facility] of mg (65 mg 00:00: mouth 2 [place] iron) 00 (two) Medical tablet times Branch daily. ibuprofen 2018-08 Yes [id number] 600mg Take 1 [facility] 600 mg 1-03 tablet by [facility] of tablet 00:00: mouth [place] 00 every 6 Medical (six) Branch hours as needed for Pain (scale 1-3) or Pain (scale 4-6) (Pain). Take with food or milk. 2018-08 Yes [id number] 1{tbl} Take 1 [facility] vitamin 1-03 tablet by [facility] of w/FA tablet 00:00: mouth [place] 00 daily. Medical Branch docusate 2018-08 Yes [id number] 240mg Take 1 [facility] n[facility] calcium 240 1-03 capsule by [facility] of mg capsule 00:00: mouth once [place] 00 daily as Medical needed for Branch Constipati on. ferrous 2018-08 Yes [id number] 325mg Take 1 [facility] alex sulfate 325 1-03 tablet by [facility] of mg (65 mg 00:00: mouth 2 [place] iron) 00 (two) Medical tablet times Branch daily. ibuprofen 2018-08 Yes [id number] 600mg Take 1 [facility] 600 mg 1-03 tablet by [facility] of tablet 00:00: mouth [place] 00 every 6 Medical (six) Branch hours as needed for Pain (scale 1-3) or Pain (scale 4-6) (Pain). Take with food or milk. 2018-08 Yes [id number] 1{tbl} Take 1 [facility] vitamin 1-03 tablet by [facility] of w/FA tablet 00:00: mouth [place] 00 daily. Medical Branch docusate 2018-08 Yes [id number] 240mg Take 1 [facility] n[facility] calcium 240 1-03 capsule by [facility] of mg capsule 00:00: mouth once [place] 00 daily as Medical needed for Branch Constipati on. ferrous 2018-08 Yes [id number] 325mg Take 1 [facility] alex sulfate 325 1-03 tablet by [facility] of mg (65 mg 00:00: mouth 2 [place] iron) 00 (two) Medical tablet times Branch daily. ibuprofen 2018-08 Yes [id number] 600mg Take 1 [facility] 600 mg 1-03 tablet by [facility] of tablet 00:00: mouth [place] 00 every 6 Medical (six) Branch hours as needed for Pain (scale 1-3) or Pain (scale 4-6) (Pain). Take with food or milk. 2018-08 Yes [id number] 1{tbl} Take 1 [facility] vitamin 1-03 tablet by [facility] of w/FA tablet 00:00: mouth [place] 00 daily. Medical Branch docusate 2018-08 Yes [id number] 240mg Take 1 [facility] n[facility] calcium 240 1-03 capsule by [facility] y of mg capsule 00:00: mouth once [place] 00 daily as Medical needed for Branch Constipati on. ferrous 2018-08 Yes [id number] 325mg Take 1 [facility] alex sulfate 325 1-03 tablet by [facility] of mg (65 mg 00:00: mouth 2 [place] iron) 00 (two) Medical tablet times Branch daily. ibuprofen 2018-08 Yes [id number] 600mg Take 1 [facility] 600 mg 1-03 tablet by [facility] of tablet 00:00: mouth [place] 00 every 6 Medical (six) Branch hours as needed for Pain (scale 1-3) or Pain (scale 4-6) (Pain). Take with food or milk. 2018-08 Yes [id number] 1{tbl} Take 1 [facility] vitamin 1-03 tablet by [facility] of w/FA tablet 00:00: mouth [place] 00 daily. Medical Branch docusate 2018-08 Yes [id number] 240mg Take 1 [facility] nivers calcium 240 1-03 capsule by [facility] y of mg capsule 00:00: mouth once [place] 00 daily as Medical needed for Branch Constipati on. ferrous 2018-08 Yes [id number] 325mg Take 1 Un alex sulfate 325 1-03 tablet by [facility] of mg (65 mg 00:00: mouth 2 [place] iron) 00 (two) Medical tablet times Branch daily. ibuprofen 2018-08 Yes [id number] 600mg Take 1 [facility] 600 mg 1-03 tablet by [facility] of tablet 00:00: mouth [place] 00 every 6 Medical (six) Branch hours as needed for Pain (scale 1-3) or Pain (scale 4-6) (Pain). Take with food or milk. 2018-08 Yes [id number] 1{tbl} Take 1 [facility] vitamin 1-03 tablet by [facility] of w/FA tablet 00:00: mouth [place] 00 daily. Medical Branch docusate 2018-08 Yes [id number] 240mg Take 1 [facility] n[facility] calcium 240 1-03 capsule by [facility] y of mg capsule 00:00: mouth once [place] 00 daily as Medical needed for Branch Constipati on. ferrous 2018-08 Yes [id number] 325mg Take 1 Un alex sulfate 325 1-03 tablet by [facility] of mg (65 mg 00:00: mouth 2 [place] iron) 00 (two) Medical tablet times Branch daily. ibuprofen 2018-08 Yes [id number] 600mg Take 1 [facility] 600 mg 1-03 tablet by [facility] of tablet 00:00: mouth [place] 00 every 6 Medical (six) Branch hours as needed for Pain (scale 1-3) or Pain (scale 4-6) (Pain). Take with food or milk. 2018-08 Yes [id number] 1{tbl} Take 1 [facility] vitamin 1-03 tablet by [facility] of w/FA tablet 00:00: mouth [place] 00 daily. Medical Branch docusate 2018-08 Yes [id number] 240mg Take 1 [facility] nivers calcium 240 1-03 capsule by it y of mg capsule 00:00: mouth once [place] 00 daily as Medical needed for Branch Constipati on. ferrous 2018-08 Yes [id number] 325mg Take 1 [facility] alex sulfate 325 1-03 tablet by [facility] of mg (65 mg 00:00: mouth 2 [place] iron) 00 (two) Medical tablet times Branch daily. ibuprofen 2018-08 Yes [id number] 600mg Take 1 [facility] 600 mg 1-03 tablet by [facility] of tablet 00:00: mouth [place] 00 every 6 Medical (six) Branch hours as needed for Pain (scale 1-3) or Pain (scale 4-6) (Pain). Take with food or milk. 2018-08 Yes [id number] 1{tbl} Take 1 [facility] vitamin 1-03 tablet by [facility] of w/FA tablet 00:00: mouth [place] 00 daily. Medical Branch docusate 2018-08 Yes [id number] 240mg Take 1 [facility] n[facility] calcium 240 1-03 capsule by it y of mg capsule 00:00: mouth once [place] 00 daily as Medical needed for Branch Constipati on. ferrous 2018-08 Yes [id number] 325mg Take 1 [facility] alex sulfate 325 1-03 tablet by [facility] of mg (65 mg 00:00: mouth 2 [place] iron) 00 (two) Medical tablet times Branch daily. ibuprofen 2018-08 Yes [id number] 600mg Take 1 [facility] 600 mg 1-03 tablet by [facility] of tablet 00:00: mouth [place] 00 every 6 Medical (six) Branch hours as needed for Pain (scale 1-3) or Pain (scale 4-6) (Pain). Take with food or milk. 2018-08 Yes [id number] 1{tbl} Take 1 [facility] vitamin 1-03 tablet by [facility] of w/FA tablet 00:00: mouth [place] 00 daily. Medical Branch docusate 2018-08 Yes [id number] 240mg Take 1 [facility] n[facility] calcium 240 1-03 capsule by [facility] y of mg capsule 00:00: mouth once [place] 00 daily as Medical needed for Branch Constipati on. ferrous 2018-08 Yes [id number] 325mg Take 1 [facility] alex sulfate 325 1-03 tablet by [facility] of mg (65 mg 00:00: mouth 2 [place] iron) 00 (two) Medical tablet times Branch daily. ibuprofen 2018-08 Yes [id number] 600mg Take 1 [facility] 600 mg 1-03 tablet by [facility] of tablet 00:00: mouth [place] 00 every 6 Medical (six) Branch hours as needed for Pain (scale 1-3) or Pain (scale 4-6) (Pain). Take with food or milk. 2018-08 Yes [id number] 1{tbl} Take 1 [facility] vitamin 1-03 tablet by [facility] of w/FA tablet 00:00: mouth [place] 00 daily. Medical Branch docusate 2018-08 Yes [id number] 240mg Take 1 [facility] n[facility] calcium 240 1-03 capsule by it y of mg capsule 00:00: mouth once [place] 00 daily as Medical needed for Branch Constipati on. ferrous 2018-08 Yes [id number] 325mg Take 1 [facility] alex sulfate 325 1-03 tablet by [facility] of mg (65 mg 00:00: mouth 2 [place] iron) 00 (two) Medical tablet times Branch daily. ibuprofen 2018-08 Yes [id number] 600mg Take 1 [facility] 600 mg 1-03 tablet by [facility] of tablet 00:00: mouth [place] 00 every 6 Medical (six) Branch hours as needed for Pain (scale 1-3) or Pain (scale 4-6) (Pain). Take with food or milk. 2018-08 Yes [id number] 1{tbl} Take 1 [facility] vitamin 1-03 tablet by [facility] of w/FA tablet 00:00: mouth [place] 00 daily. Medical Branch docusate 2018-08 Yes [id number] 240mg Take 1 [facility] n[facility] calcium 240 1-03 capsule by [facility] y of mg capsule 00:00: mouth once [place] 00 daily as Medical needed for Branch Constipati on. ferrous 2018-08 Yes [id number] 325mg Take 1 Un alex sulfate 325 1-03 tablet by [facility] of mg (65 mg 00:00: mouth 2 [place] iron) 00 (two) Medical tablet times Branch daily. ibuprofen 2018-08 Yes [id number] 600mg Take 1 [facility] 600 mg 1-03 tablet by [facility] of tablet 00:00: mouth [place] 00 every 6 Medical (six) Branch hours as needed for Pain (scale 1-3) or Pain (scale 4-6) (Pain). Take with food or milk. 2018-08 Yes [id number] 1{tbl} Take 1 [facility] vitamin 1-03 tablet by [facility] of w/FA tablet 00:00: mouth [place] 00 daily. Medical Branch docusate 2018-08 Yes [id number] 240mg Take 1 [facility] n[facility] calcium 240 1-03 capsule by it y of mg capsule 00:00: mouth once [place] 00 daily as Medical needed for Branch Constipati on. ferrous 2018-08 Yes [id number] 325mg Take 1 [facility] alex sulfate 325 1-03 tablet by [facility] of mg (65 mg 00:00: mouth 2 [place] iron) 00 (two) Medical tablet times Branch daily. ibuprofen 2018-08 Yes [id number] 600mg Take 1 [facility] 600 mg 1-03 tablet by [facility] of tablet 00:00: mouth [place] 00 every 6 Medical (six) Branch hours as needed for Pain (scale 1-3) or Pain (scale 4-6) (Pain). Take with food or milk. 2018-08 Yes [id number] 1{tbl} Take 1 [facility] vitamin 1-03 tablet by [facility] of w/FA tablet 00:00: mouth [place] 00 daily. Medical Branch docusate 2018-08 Yes [id number] 240mg Take 1 [facility] n[facility] calcium 240 1-03 capsule by [facility] y of mg capsule 00:00: mouth once [place] 00 daily as Medical needed for Branch Constipati on. ferrous 2018-08 Yes [id number] 325mg Take 1 Un alex sulfate 325 1-03 tablet by [facility] of mg (65 mg 00:00: mouth 2 [place] iron) 00 (two) Medical tablet times Branch daily. ibuprofen 2018-08 Yes [id number] 600mg Take 1 [facility] 600 mg 1-03 tablet by [facility] of tablet 00:00: mouth [place] 00 every 6 Medical (six) Branch hours as needed for Pain (scale 1-3) or Pain (scale 4-6) (Pain). Take with food or milk. 2018-08 Yes [id number] 1{tbl} Take 1 [facility] vitamin 1-03 tablet by [facility] of w/FA tablet 00:00: mouth [place] 00 daily. Medical Branch docusate 2018-08 Yes [id number] 240mg Take 1 [facility] nivers calcium 240 1-03 capsule by it y of mg capsule 00:00: mouth once [place] 00 daily as Medical needed for Branch Constipati on. ferrous 2018- Yes [id number] 325mg Take 1 Un alex sulfate 325 1-03 tablet by [facility] of mg (65 mg 00:00: mouth 2 [place] iron) 00 (two) Medical tablet times Branch daily. ibuprofen 2018-08 Yes [id number] 600mg Take 1 [facility] 600 mg 1-03 tablet by [facility] of tablet 00:00: mouth [place] 00 every 6 Medical (six) Branch hours as needed for Pain (scale 1-3) or Pain (scale 4-6) (Pain). Take with food or milk. 2018-08 Yes [id number] 1{tbl} Take 1 [facility] vitamin 1-03 tablet by [facility] of w/FA tablet 00:00: mouth [place] 00 daily. Medical Branch docusate 2018-08 Yes [id number] 240mg Take 1 [facility] nivers calcium 240 1-03 capsule by [facility] y of mg capsule 00:00: mouth once [place] 00 daily as Medical needed for Branch Constipati on. ferrous 2018-08 Yes [id number] 325mg Take 1 Un alex sulfate 325 1-03 tablet by [facility] of mg (65 mg 00:00: mouth 2 [place] iron) 00 (two) Medical tablet times Branch daily. ibuprofen 2018-08 Yes [id number] 600mg Take 1 [facility] 600 mg 1-03 tablet by [facility] of tablet 00:00: mouth [place] 00 every 6 Medical (six) Branch hours as needed for Pain (scale 1-3) or Pain (scale 4-6) (Pain). Take with food or milk. 2018-08 Yes [id number] 1{tbl} Take 1 [facility] vitamin 1-03 tablet by [facility] of w/FA tablet 00:00: mouth [place] 00 daily. Medical Branch docusate 2018-08 Yes [id number] 240mg Take 1 [facility] n[facility] calcium 240 1-03 capsule by it y of mg capsule 00:00: mouth once [place] 00 daily as Medical needed for Branch Constipati on. ferrous 2018-08 Yes [id number] 325mg Take 1 Un alex sulfate 325 1-03 tablet by [facility] of mg (65 mg 00:00: mouth 2 [place] iron) 00 (two) Medical tablet times Branch daily. ibuprofen 2018-08 Yes [id number] 600mg Take 1 [facility] 600 mg 1-03 tablet by [facility] of tablet 00:00: mouth [place] 00 every 6 Medical (six) Branch hours as needed for Pain (scale 1-3) or Pain (scale 4-6) (Pain). Take with food or milk. 2018-08 Yes [id number] 1{tbl} Take 1 [facility] vitamin 1-03 tablet by [facility] of w/FA tablet 00:00: mouth [place] 00 daily. Medical Branch docusate 2018-08 Yes [id number] 240mg Take 1 [facility] n[facility] calcium 240 1-03 capsule by [facility] y of mg capsule 00:00: mouth once [place] 00 daily as Medical needed for Branch Constipati on. ferrous 2018-08 Yes [id number] 325mg Take 1 Un alex sulfate 325 1-03 tablet by [facility] of mg (65 mg 00:00: mouth 2 [place] iron) 00 (two) Medical tablet times Branch daily. ibuprofen 2018-08 Yes [id number] 600mg Take 1 [facility] 600 mg 1-03 tablet by [facility] of tablet 00:00: mouth [place] 00 every 6 Medical (six) Branch hours as needed for Pain (scale 1-3) or Pain (scale 4-6) (Pain). Take with food or milk. 2018-08 Yes [id number] 1{tbl} Take 1 [facility] vitamin 1-03 tablet by [facility] of w/FA tablet 00:00: mouth [place] 00 daily. Medical [facility] docusate 2018-08 Yes [id number] 240mg Take 1 [facility] n[facility] calcium 240 1-03 capsule by it y of mg capsule 00:00: mouth once [place] 00 daily as Medical needed for Branch Constipati on. ferrous 2018-08 Yes [id number] 325mg Take 1 [facility] alex sulfate 325 1-03 tablet by [facility] of mg (65 mg 00:00: mouth 2 [place] iron) 00 (two) Medical tablet times Branch daily. ibuprofen 2018-08 Yes [id number] 600mg Take 1 [facility] 600 mg 1-03 tablet by [facility] of tablet 00:00: mouth [place] 00 every 6 Medical (six) Branch hours as needed for Pain (scale 1-3) or Pain (scale 4-6) (Pain). Take with food or milk. 2018-08 Yes [id number] 1{tbl} Take 1 [facility] vitamin 1-03 tablet by [facility] of w/FA tablet 00:00: mouth [place] 00 daily. Medical Branch docusate 2018-08 Yes [id number] 240mg Take 1 [facility] n[facility] calcium 240 1-03 capsule by [facility] y of mg capsule 00:00: mouth once [place] 00 daily as Medical needed for Branch Constipati on. ferrous 2018-08 Yes [id number] 325mg Take 1 Un alex sulfate 325 1-03 tablet by [facility] of mg (65 mg 00:00: mouth 2 [place] iron) 00 (two) Medical tablet times Branch daily. ibuprofen 2018-08 Yes [id number] 600mg Take 1 [facility] 600 mg 1-03 tablet by [facility] of tablet 00:00: mouth [place] 00 every 6 Medical (six) Branch hours as needed for Pain (scale 1-3) or Pain (scale 4-6) (Pain). Take with food or milk. 2018-08 Yes [id number] 1{tbl} Take 1 [facility] vitamin 1-03 tablet by [facility] of w/FA tablet 00:00: mouth [place] 00 daily. Medical [facility] docusate 2018-08 Yes [id number] 240mg Take 1 [facility] n[facility] calcium 240 1-03 capsule by [facility] y of mg capsule 00:00: mouth once [place] 00 daily as Medical needed for Branch Constipati on. ferrous 2018-08 Yes [id number] 325mg Take 1 Un alex sulfate 325 1-03 tablet by [facility] of mg (65 mg 00:00: mouth 2 [place] iron) 00 (two) Medical tablet times Branch daily. ibuprofen 2018-08 Yes [id number] 600mg Take 1 [facility] 600 mg 1-03 tablet by [facility] of tablet 00:00: mouth [place] 00 every 6 Medical (six) Branch hours as needed for Pain (scale 1-3) or Pain (scale 4-6) (Pain). Take with food or milk. 2018-08 Yes [id number] 1{tbl} Take 1 [facility] vitamin 1-03 tablet by [facility] w/FA tablet 00:00: mouth [place] [facility] [id number] 240mg Take 1 [facility] n[facility] calcium 240 1-03 capsule by it y of mg capsule 00:00: mouth once [place] 00 daily as Medical needed for Branch Constipati on. ferrous 2018-08 Yes [id number] 325mg Take 1 Un alex sulfate 325 1-03 tablet by [facility] of mg (65 mg 00:00: mouth 2 [place] iron) 00 (two) Medical tablet times Branch daily. ibuprofen 2018-08 Yes [id number] 600mg Take 1 [facility] 600 mg 1-03 tablet by [facility] of tablet 00:00: mouth [place] 00 every 6 Medical (six) Branch hours as needed for Pain (scale 1-3) or Pain (scale 4-6) (Pain). Take with food or milk. 2018-08 Yes [id number] 1{tbl} Take 1 [facility] vitamin 1-03 tablet by [facility] of w/FA tablet 00:00: mouth [place] 00 daily. Medical [facility] docusate 2018-08 Yes [id number] 240mg Take 1 [facility] calcium 240 1-03 capsule by [facility] y of mg capsule 00:00: mouth once [place] 00 daily as Medical needed for Branch Constipati on. ferrous 2018-08 Yes [id number] 325mg Take 1 Un alex sulfate 325 1-03 tablet by [facility] of mg (65 mg 00:00: mouth 2 [place] iron) 00 (two) Medical tablet times Branch daily. ibuprofen 2018-08 Yes [id number] 600mg Take 1 [facility] 600 mg 1-03 tablet by [facility] of tablet 00:00: mouth [place] 00 every 6 Medical (six) Branch hours as needed for Pain (scale 1-3) or Pain (scale 4-6) (Pain). Take with food or milk. ferrous 2018- Yes [id number] 325mg Take 1 Un alex sulfate 325 1-03 tablet by [facility] of mg (65 mg 00:00: mouth 2 [place] iron) 00 (two) Medical tablet times Branch daily. ferrous 2018-08 Yes [id number] 325mg Take 1 [facility] alex sulfate 325 1-03 tablet by [facility] of mg (65 mg 00:00: mouth 2 [place] iron) 00 (two) Medical tablet times Branch daily. ferrous 2018-08 Yes [id number] 325mg Take 1 [facility] alex sulfate 325 1-03 tablet by [facility]y of mg (65 mg 00:00: mouth 2 [place] iron) 00 (two) Medical tablet times Branch daily. ferrous 2018-08 Yes [id number] 325mg Take 1 [facility] alex sulfate 325 1-03 tablet by [facility]y of mg (65 mg 00:00: mouth 2 [place] iron) 00 (two) Medical tablet times Branch daily. 2018-08 Yes [id number] 1{tbl} Take 1 [facility] vitamin 1-03 tablet by [facility] of w/FA tablet 00:00: mouth [place] 00 daily. Medical Branch docusate 2018-08 Yes [id number] 240mg Take 1 [facility] nivers calcium 240 1-03 capsule by [facility] y of mg capsule 00:00: mouth once [place] 00 daily as Medical needed for Branch Constipati on. ferrous 2018- Yes [id number] 325mg Take 1 Un alex sulfate 325 1-03 tablet by [facility] of mg (65 mg 00:00: mouth 2 [place] iron) 00 (two) Medical tablet times Branch daily. ibuprofen 2018-08 Yes [id number] 600mg Take 1 [facility] 600 mg 1-03 tablet by [facility] of tablet 00:00: mouth [place] 00 every 6 Medical (six) Branch hours as needed for Pain (scale 1-3) or Pain (scale 4-6) (Pain). Take with food or milk. 2018-08 Yes [id number] 1{tbl} Take 1 [facility] vitamin 1-03 tablet by [facility] of w/FA tablet 00:00: mouth [place] 00 daily. Medical Branch docusate 2018-08 Yes [id number] 240mg Take 1 [facility] nivers calcium 240 1-03 capsule by it y of mg capsule 00:00: mouth once [place] 00 daily as Medical needed for Branch Constipati on. ferrous 2018-08 Yes [id number] 325mg Take 1 Un alex sulfate 325 1-03 tablet by [facility] of mg (65 mg 00:00: mouth 2 [place] iron) 00 (two) Medical tablet times Branch daily. ibuprofen 2018-08 Yes [id number] 600mg Take 1 [facility] 600 mg 1-03 tablet by [facility] of tablet 00:00: mouth [place] 00 every 6 Medical (six) Branch hours as needed for Pain (scale 1-3) or Pain (scale 4-6) (Pain). Take with food or milk. 2018-08 Yes [id number] 1{tbl} Take 1 [facility] vitamin 1-03 tablet by ity of w/FA tablet 00:00: mouth [place] 00 daily. Medical Branch docusate 2018-08 Yes [id number] 240mg Take 1 U nivers calcium 240 1-03 capsule by it y of mg capsule 00:00: mouth once [place] 00 daily as Medical needed for Branch Constipati on. ferrous 2018-08 Yes [id number] 325mg Take 1 Un alex sulfate 325 1-03 tablet by ity of mg (65 mg 00:00: mouth 2 [place] iron) 00 (two) Medical tablet times Branch daily. ibuprofen 2018-08 Yes [id number] 600mg Take 1 [facility] 600 mg 1-03 tablet by ity of tablet 00:00: mouth [place] 00 every 6 Medical (six) Branch hours as needed for Pain (scale 1-3) or Pain (scale 4-6) (Pain). Take with food or milk. 2018-08 Yes [id number] 1{tbl} Take 1 [facility] vitamin 1-03 tablet by ity of w/FA tablet 00:00: mouth [place] 00 daily. Medical Branch docusate 2018-08 Yes [id number] 240mg Take 1 U nivers calcium 240 1-03 capsule by it y of mg capsule 00:00: mouth once [place] 00 daily as Medical needed for Branch Constipati on. ferrous 2018-08 Yes [id number] 325mg Take 1 Un alex sulfate 325 1-03 tablet by ity of mg (65 mg 00:00: mouth 2 [place] iron) 00 (two) Medical tablet times Branch daily. ibuprofen 2018-08 Yes [id number] 600mg Take 1 [facility] 600 mg 1-03 tablet by ity of tablet 00:00: mouth [place] 00 every 6 Medical (six) Branch hours as needed for Pain (scale 1-3) or Pain (scale 4-6) (Pain). Take with food or milk. 2018-08 Yes [id number] 1{tbl} Take 1 [facility] vitamin 1-03 tablet by ity of w/FA tablet 00:00: mouth [place] 00 daily. Medical Branch docusate 2018-08 Yes [id number] 240mg Take 1 U nivers calcium 240 1-03 capsule by it y of mg capsule 00:00: mouth once [place] 00 daily as Medical needed for Branch Constipati on. ferrous 2018-08 Yes [id number] 325mg Take 1 Un alex sulfate 325 1-03 tablet by ity of mg (65 mg 00:00: mouth 2 [place] iron) 00 (two) Medical tablet times Branch daily. ibuprofen 2018-08 Yes [id number] 600mg Take 1 [facility] 600 mg 1-03 tablet by ity of tablet 00:00: mouth [place] 00 every 6 Medical (six) Branch hours as needed for Pain (scale 1-3) or Pain (scale 4-6) (Pain). Take with food or milk. 2018-08 Yes [id number] 1{tbl} Take 1 [facility] vitamin 1-03 tablet by ity of w/FA tablet 00:00: mouth [place] 00 daily. Medical Branch docusate 2018-08 Yes [id number] 240mg Take 1 U nivers calcium 240 1-03 capsule by it y of mg capsule 00:00: mouth once [place] 00 daily as Medical needed for Branch Constipati on. ferrous 2018-08 Yes [id number] 325mg Take 1 Un alex sulfate 325 1-03 tablet by ity of mg (65 mg 00:00: mouth 2 [place] iron) 00 (two) Medical tablet times Branch daily. ibuprofen 2018-08 Yes [id number] 600mg Take 1 [facility] 600 mg 1-03 tablet by ity of tablet 00:00: mouth [place] 00 every 6 Medical (six) Branch hours as needed for Pain (scale 1-3) or Pain (scale 4-6) (Pain). Take with food or milk. 2018-08 Yes [id number] 1{tbl} Take 1 [facility] vitamin 1-03 tablet by ity of w/FA tablet 00:00: mouth [place] 00 daily. Medical Branch docusate 2018-08 Yes [id number] 240mg Take 1 U nivers calcium 240 1-03 capsule by it y of mg capsule 00:00: mouth once [place] 00 daily as Medical needed for Branch Constipati on. ferrous 2018-08 Yes [id number] 325mg Take 1 Un alex sulfate 325 1-03 tablet by ity of mg (65 mg 00:00: mouth 2 [place] iron) 00 (two) Medical tablet times Branch daily. ibuprofen 2018-08 Yes [id number] 600mg Take 1 [facility] 600 mg 1-03 tablet by ity of tablet 00:00: mouth [place] 00 every 6 Medical (six) Branch hours as needed for Pain (scale 1-3) or Pain (scale 4-6) (Pain). Take with food or milk. 2018-08 Yes [id number] 1{tbl} Take 1 [facility] vitamin 1-03 tablet by ity of w/FA tablet 00:00: mouth [place] 00 daily. Medical Branch docusate 2018-08 Yes [id number] 240mg Take 1 U nivers calcium 240 1-03 capsule by it y of mg capsule 00:00: mouth once [place] 00 daily as Medical needed for Branch Constipati on. ferrous 2018-08 Yes [id number] 325mg Take 1 Un alex sulfate 325 1-03 tablet by ity of mg (65 mg 00:00: mouth 2 [place] iron) 00 (two) Medical tablet times Branch daily. ibuprofen 2018-08 Yes [id number] 600mg Take 1 [facility] 600 mg 1-03 tablet by ity of tablet 00:00: mouth [place] 00 every 6 Medical (six) Branch hours as needed for Pain (scale 1-3) or Pain (scale 4-6) (Pain). Take with food or milk. 2018-08 Yes [id number] 1{tbl} Take 1 [facility] vitamin 1-03 tablet by ity of w/FA tablet 00:00: mouth [place] 00 daily. Medical Branch docusate 2018-08 Yes [id number] 240mg Take 1 U nivers calcium 240 1-03 capsule by it y of mg capsule 00:00: mouth once [place] 00 daily as Medical needed for Branch Constipati on. ferrous 2018-08 Yes [id number] 325mg Take 1 Un alex sulfate 325 1-03 tablet by ity of mg (65 mg 00:00: mouth 2 [place] iron) 00 (two) Medical tablet times Branch daily. ibuprofen 2018-08 Yes [id number] 600mg Take 1 [facility] 600 mg 1-03 tablet by ity of tablet 00:00: mouth [place] 00 every 6 Medical (six) Branch hours as needed for Pain (scale 1-3) or Pain (scale 4-6) (Pain). Take with food or milk. 2018-08 Yes [id number] 1{tbl} Take 1 [facility] vitamin 1-03 tablet by ity of w/FA tablet 00:00: mouth [place] [facility] [id number] 240mg Take 1 U nivers calcium 240 1-03 capsule by it y of mg capsule 00:00: mouth once [place] 00 daily as Medical needed for Branch Constipati on. 2018-08- No [id number] 1{tbl} Take 1 [facility] vitamin 1-03 08-18 tablet by ity of w/FA tablet 00:00: [place] 00 :[facility]. [facility] No [id number] 240mg Take 1 [facility] calcium 240 1-03 08-18 capsule by i ty of mg capsule 00:00: 00:00 mouth once [place] 00 :00 daily as Medical needed for Branch Constipati on. ibuprofen 2018-08- No [id number] 600mg Take 1 [facility] 600 mg 1-03 08-18 tablet by ity of tablet 00:00: 00:00 mouth [place] 00 :00 every 6 Medical (six) Branch hours as needed for Pain (scale 1-3) or Pain (scale 4-6) (Pain). Take with food or milk. fluconazole 2019- No [id number] 150mg Take 1 [facility] (DIFLUCAN) 9-10 09-11 tablet by ity of 150 mg 00:00: 04:59 mouth [place] tablet 00 :00 now for 1 Medical dose. Branch fluconazole 2019- No [id number] 150mg Take 1 [facility] (DIFLUCAN) 04-17 tablet by ity of 150 mg 00:00: 04:59 mouth [place] tablet 00 :00 now for 1 Medical dose. Branch fluconazole 2019- No [id number] 150mg Take 1 [facility] (DIFLUCAN) 04-17 tablet by ity of 150 mg 00:00: 04:59 mouth [place] tablet 00 :00 now for 1 Medical dose. Branch rho(D) 2019- No [id number] 300ug Unive rs immune 03-29 ity of globulin 19:30: 19:44 [place] (RHOGAM) 00 :00 Medical syringe 300 Branch mcg rho(D) 2019- No [id number] 300ug 300 mcg, U nivers immune 03-29 Intramuscu ity of globulin 19:30: 19:44 [place], [place] (RHOGAM) 00 :00 1 dose, Medical syringe 300 [place] Branch mcg 03/29/19 at 1430, Routine fluconazole 2019- No [id number] 150mg Take 1 [facility] (DIFLUCAN) 03-20 9107 tablet by ity of 150 mg 00:00: 04:59 mouth [place] tablet 00 :00 now for 1 Medical dose. Branch HYDROXYprog Yes 250mg Unive rs est(PF)(pre 8-06 ity of g presv) 15:51: [place] (HANS) 32 Medical 250 mg/mL Branch (1 mL) injection 250 mg HYDROXYprog Yes 250mg Unive rs est(PF)(pre 8-06 ity of g presv) 15:51: [place] (HANS) 32 Medical 250 mg/mL Branch (1 mL) injection 250 mg HYDROXYprog Yes 250mg 250 mg, Un alex est(PF)(pre 8-06 Intramuscu it y of g presv) 15:51: lar, [place] (HANS) 32 QWEEKLY, Medical 250 mg/mL First dose Bran ch (1 mL) on Tue injection 8/6/19 at 250 mg 1100, Until Discontinu ed, Routine HYDROXYprog 2019-0 Yes 250mg Unive rs est(PF)(pre 8-06 ity of g presv) 15:51: [place] (HANS) 32 Medical 250 mg/mL Branch (1 mL) injection 250 mg HYDROXYprog 2019-0 Yes 250mg Unive rs est(PF)(pre 8-06 ity of g presv) 15:51: [place] (HANS) 32 Medical 250 mg/mL Branch (1 mL) injection 250 mg HYDROXYprog 2019-0 Yes 250mg Unive rs est(PF)(pre 8-06 ity of g presv) 15:51: [place] (HANS) 32 Medical 250 mg/mL Branch (1 mL) injection 250 mg HYDROXYprog 2019-0 Yes 250mg Unive rs est(PF)(pre 8-06 ity of g presv) 15:51: [place] (HANS) 32 Medical 250 mg/mL Branch (1 mL) injection 250 mg HYDROXYprog 2019-0 Yes 250mg Unive rs est(PF)(pre 8-06 ity of g presv) 15:51: [place] (HANS) 32 Medical 250 mg/mL Branch (1 mL) injection 250 mg HYDROXYprog 2019-0 Yes 250mg Unive rs est(PF)(pre 8-06 ity of g presv) 15:51: [place] (HANS) 32 Medical 250 mg/mL Branch (1 mL) injection 250 mg HYDROXYprog 2019-0 Yes 250mg Unive rs est(PF)(pre 8-06 ity of g presv) 15:51: [place] (HANS) 32 Medical 250 mg/mL Branch (1 mL) injection 250 mg HYDROXYprog 2019-0 Yes 250mg Unive rs est(PF)(pre 8-06 ity of g presv) 15:51: [place] (HANS) 32 Medical 250 mg/mL Branch (1 mL) injection 250 mg HYDROXYprog 2019-0 Yes 250mg Unive rs est(PF)(pre 8-06 ity of g presv) 15:51: [place] (HANS) 32 Medical 250 mg/mL Branch (1 mL) injection 250 mg HYDROXYprog 2019-0 Yes 250mg 250 mg, Un alex est(PF)(pre 8-06 Intramuscu it y of g presv) 15:51: Roxanne perez ([facility]) 32 QWEEKLY, Medical 250 mg/mL First dose Bran ch (1 mL) on Tue injection 03/13/19 at 250 mg 1100, Until Discontinu ed, Routine HYDROXYprog 2019-0 Yes 250mg Unive rs est(PF)(pre 8- ity of g presv) 15:51: [place] ([facility]) 32 Medical 250 mg/mL Branch (1 mL) injection 250 mg HYDROXYprog 2019-0 Yes 250mg 250 mg, Un alex est(PF)(pre 8-06 Intramuscu it y of g presv) 15:51: ana [place] ([facility]) 32 QWEEKLY, Medical 250 mg/mL First dose Bran ch (1 mL) on Tue injection 03/13/19 at 250 mg 1100, Until Discontinu ed, Routine HYDROXYprog 2019-0 Yes 250mg Unive rs est(PF)(pre 8- ity of g presv) 15:51: [facility] 32 Medical 250 mg/mL Branch (1 mL) injection 250 mg HYDROXYprog 2019-0 Yes 250mg 250 mg, Un alex est(PF)(pre 8- Intramuscu it y of g presv) 15:51: ana [place] ([facility]) 32 QWEEKLY, Medical 250 mg/mL First dose Bran ch (1 mL) on Tue injection 03/13/19 at 250 mg 1100, Until Discontinu ed, Routine HYDROXYprog 2019-0 Yes 250mg Unive rs est(PF)(pre 8- ity of g presv) 15:51: [facility] 32 Medical 250 mg/mL Branch (1 mL) injection 250 mg HYDROXYprog 2019-0 Yes 250mg 250 mg, Un alex est(PF)(pre 8-06 Intramuscu it y of g presv) 15:51: ana [place] ([facility]) 32 QWEEKLY, Medical 250 mg/mL First dose Bran ch (1 mL) on Tue injection 03/13/19 at 250 mg 1100, Until Discontinu ed, Routine HYDROXYprog 2019-0 Yes 250mg Unive rs est(PF)(pre 8-06 ity of g presv) 15:51: [place] ([facility]) 32 Medical 250 mg/mL Branch (1 mL) injection 250 mg HYDROXYprog 2019-0 Yes 250mg 250 mg, Un alex est(PF)(pre - Intramuscu it y of g presv) 15:51: Roxanne perez (HANS) 32 QWEEKLY, Medical 250 mg/mL First dose Bran ch (1 mL) on Tue injection 03/13/19 at 250 mg 1100, Until Discontinu ed, Routine HYDROXYprog 2019-0 Yes 250mg Unive rs est(PF)(pre 8 ity of g presv) 15:51: [place] (HANS) 32 Medical 250 mg/mL Branch (1 mL) injection 250 mg HYDROXYprog 2019-0 Yes 250mg 250 mg, Un alex est(PF)(pre 03-13 Intramuscu it y of g presv) 15:51: ana[place] (HANS) 32 QWEEKLY, Medical 250 mg/mL First dose Bran ch (1 mL) on Tue injection 03/13/19 at 250 mg 1100, Until Discontinu ed, Routine hydroxyprog 2019-0 Yes 275mg Unive rs esterone(PF 6-11 ity of ) (HANS 14:51: [place] AUTO-INJECT 12 Medical OR) 275 Branch mg/1.1 mL injection 275 mg hydroxyprog 2019-0 Yes 275mg Unive rs esterone(PF 6-11 ity of ) (HANS 14:51: [place] AUTO-INJECT 12 Medical OR) 275 Branch mg/1.1 mL injection 275 mg hydroxyprog 2019-0 Yes 275mg Unive rs esterone(PF 6-11 ity of ) (HANS 14:51: [place] AUTO-INJECT 12 Medical OR) 275 Branch mg/1.1 mL injection 275 mg hydroxyprog 2019-0 Yes 275mg Unive rs esterone(PF 6-11 ity of ) (HANS 14:51: [place] AUTO-INJECT 12 Medical OR) 275 Branch mg/1.1 mL injection 275 mg hydroxyprog 2019-0 Yes 275mg 275 mg, Un alex esterone(PF 6-11 Subcutaneo it y of ) (HANS 14:51: [place], [place] AUTO-INJECT 12 QWEEKLY, Medi carlos OR) [...] injection 275 mg PNV 67-iron 2019-0 Yes [id number] 1{each} Take 1 [facility] ps-folate 3-15 Each by ity of no.1-dha 00:00: mouth [place] (VITAFOL 00 daily. Medical ULTRA) 29 Branch mg iron- 1 mg-200 mg Cap PNV 67-iron 2019-0 Yes [id number] 1{each} Take 1 [facility] ps-folate 3-15 Each by ity of no.1-dha 00:00: mouth [place] (VITAFOL 00 daily. Medical ULTRA) 29 Branch mg iron- 1 mg-200 mg Cap PNV 67-iron 2019-0 Yes [id number] 1{each} Take 1 [facility] ps-folate 3-15 Each by ity of no.1-dha 00:00: mouth [place] (VITAFOL 00 daily. Medical ULTRA) 29 Branch mg iron- 1 mg-200 mg Cap PNV 67-iron 2019-0 Yes [id number] 1{each} Take 1 [facility] ps-folate 3-15 Each by ity of no.1-dha 00:00: mouth [place] (VITAFOL 00 daily. Medical ULTRA) 29 Branch mg iron- 1 mg-200 mg Cap PNV 67-iron 2019-0 Yes [id number] 1{each} Take 1 [facility] ps-folate 3-15 Each by ity of no.1-dha 00:00: mouth [place] (VITAFOL 00 daily. Medical ULTRA) 29 Branch mg iron- 1 mg-200 mg Cap PNV 67-iron 2019-0 Yes [id number] 1{each} Take 1 [facility] ps-folate 3-15 Each by ity of no.1-dha 00:00: mouth [place] (VITAFOL 00 daily. Medical ULTRA) 29 Branch mg iron- 1 mg-200 mg Cap PNV 67-iron 2019-0 Yes [id number] 1{each} Take 1 [facility] ps-folate 3-15 Each by ity of no.1-dha 00:00: mouth [place] (VITAFOL 00 daily. Medical ULTRA) 29 Branch mg iron- 1 mg-200 mg Cap PNV 67-iron 2019-0 Yes [id number] 1{each} Take 1 [facility] ps-folate 3-15 Each by ity of no.1-dha 00:00: mouth [place] (VITAFOL 00 daily. Medical ULTRA) 29 Branch mg iron- 1 mg-200 mg Cap PNV 67-iron 2019-0 Yes [id number] 1{each} Take 1 [facility] ps-folate 3-15 Each by ity of no.1-dha 00:00: mouth [place] (VITAFOL 00 daily. Medical ULTRA) 29 Branch mg iron- 1 mg-200 mg Cap PNV 67-iron 2019-0 Yes [id number] 1{each} Take 1 [facility] ps-folate 3-15 Each by ity of no.1-dha 00:00: mouth [place] (VITAFOL 00 daily. Medical ULTRA) 29 Branch mg iron- 1 mg-200 mg Cap PNV 67-iron 2019-0 Yes [id number] 1{each} Take 1 [facility] ps-folate 3-15 Each by ity of no.1-dha 00:00: mouth [place] (VITAFOL 00 daily. Medical ULTRA) 29 Branch mg iron- 1 mg-200 mg Cap PNV 67-iron 2019-0 Yes [id number] 1{each} Take 1 [facility] ps-folate 3-15 Each by ity of no.1-dha 00:00: mouth [place] (VITAFOL 00 daily. Medical ULTRA) 29 Branch mg iron- 1 mg-200 mg Cap PNV 67-iron 2019-0 Yes [id number] 1{each} Take 1 [facility] ps-folate 3-15 Each by ity of no.1-dha 00:00: mouth [place] (VITAFOL 00 daily. Medical ULTRA) 29 Branch mg iron- 1 mg-200 mg Cap PNV 67-iron 2019-0 Yes [id number] 1{each} Take 1 [facility] ps-folate 3-15 Each by ity of no.1-dha 00:00: mouth [place] (VITAFOL 00 daily. Medical ULTRA) 29 Branch mg iron- 1 mg-200 mg Cap PNV 67-iron 2019-0 Yes [id number] 1{each} Take 1 [facility] ps-folate 3-15 Each by ity of no.1-dha 00:00: mouth [place] (VITAFOL 00 daily. Medical ULTRA) 29 Branch mg iron- 1 mg-200 mg Cap PNV 67-iron 2019-0 Yes [id number] 1{each} Take 1 [facility] ps-folate 3-15 Each by ity of no.1-dha 00:00: mouth [place] (VITAFOL 00 daily. Medical ULTRA) 29 Branch mg iron- 1 mg-200 mg Cap PNV 67-iron 2019-0 Yes [id number] 1{each} Take 1 [facility] ps-folate 3-15 Each by ity of no.1-dha 00:00: mouth [place] (VITAFOL 00 daily. Medical ULTRA) 29 Branch mg iron- 1 mg-200 mg Cap PNV 67-iron 2019-0 Yes [id number] 1{each} Take 1 [facility] ps-folate 3-15 Each by ity of no.1-dha 00:00: mouth [place] (VITAFOL 00 daily. Medical ULTRA) 29 Branch mg iron- 1 mg-200 mg Cap PNV 67-iron 2019-0 Yes [id number] 1{each} Take 1 [facility] ps-folate 3-15 Each by ity of no.1-dha 00:00: mouth [place] (VITAFOL 00 daily. Medical ULTRA) 29 Branch mg iron- 1 mg-200 mg Cap PNV 67-iron 2019-0 Yes [id number] 1{each} Take 1 [facility] ps-folate 3-15 Each by ity of no.1-dha 00:00: mouth [place] (VITAFOL 00 daily. Medical ULTRA) 29 Branch mg iron- 1 mg-200 mg Cap PNV 67-iron 2019-0 Yes [id number] 1{each} Take 1 [facility] ps-folate 3-15 Each by ity of no.1-dha 00:00: mouth [place] (VITAFOL 00 daily. Medical ULTRA) 29 Branch mg iron- 1 mg-200 mg Cap hydroxyprog 2019- No [id number] 250mg 1 mL by Univers est,PF,,pre 10-20 Intramuscu i ty of g presv, 00:00: 04:59 [place] 250 mg/mL 00 :00 weekly for Medi carlos (1 mL) 22 doses. Branch injection hydroxyprog 2019- No [id number] 250mg 1 mL by [facility] est,PF,,pre 10-20 Intramuscu i ty of g presv, 00:00: 04:59 [place] 250 mg/mL 00 :00 weekly for Medi carlos (1 mL) 22 doses. Branch injection hydroxyprog 2018- 2019- No [id number] 250mg 1 mL by Univers est,PF,,pre 10-20 Intramuscu i ty of g presv, 00:00: 04:59 [place] 250 mg/mL 00 :00 weekly for Medi carlos (1 mL) 22 doses. Branch injection hydroxyprog 2019- No [id number] 250mg 1 mL by [facility] est,PF,,pre 10-20 Intramuscu i ty of g presv, 00:00: 04:59 [place] 250 mg/mL 00 :00 weekly for Medi carlos (1 mL) 22 doses. Branch injection hydroxyprog 2019- No [id number] 250mg 1 mL by [facility] est,PF,,pre 10-20 Intramuscu i ty of g presv, 00:00: 04:59 [place] 250 mg/mL 00 :00 weekly for Medi carlos (1 mL) 22 doses. Branch injection ascorbic 2018-1 Yes 500mg Take 1 Univer [...] (two) Medical tablet times Branch daily. docusate 2018-1 [...] with food or milk. ferrous 2018- Yes 325mg Take 1 [facility] sulfate 325 1-05 tablet by ity of mg (65 mg 00:00: mouth 2 [place] iron) 00 (two) Medical tablet times Branch daily. PNV 67-iron 0 Yes [id number] 1{each} Take 1 [facility] ps-folate 4-17 Each by ity of no.1-dha 00:00: mouth [place] (VITAFOL 00 daily. Medical ULTRA) 29 Branch mg iron- 1 mg-200 mg Cap PNV 67-iron Yes [id number] 1{each} Take 1 [facility] ps-folate 4-17 Each by ity of no.1-dha 00:00: mouth [place] (VITAFOL 00 daily. Medical ULTRA) 29 Branch mg iron- 1 mg-200 mg Cap PNV 67-iron Yes [id number] 1{each} Take 1 [facility] ps-folate 4-17 Each by ity of no.1-dha 00:00: mouth [place] (VITAFOL 00 daily. Medical ULTRA) 29 Branch mg iron- 1 mg-200 mg Cap PNV 67-iron 2017- Yes [id number] 1{each} Take 1 [facility] ps-folate 4-17 Each by ity of no.1-dha 00:00: mouth [place] (VITAFOL 00 daily. Medical ULTRA) 29 Branch mg iron- 1 mg-200 mg Cap PNV 67-iron 2017- Yes [id number] 1{each} Take 1 [facility] ps-folate 4-17 Each by ity of no.1-dha 00:00: mouth [place] (VITAFOL 00 daily. Medical ULTRA) 29 Branch mg iron- 1 mg-200 mg Cap PNV 67-iron 2017- Yes [id number] 1{each} Take 1 [facility] ps-folate 4-17 Each by ity of no.1-dha 00:00: mouth [place] (VITAFOL 00 daily. Medical ULTRA) 29 Branch mg iron- 1 mg-200 mg Cap PNV 67-iron 2017-0 Yes [id number] 1{each} Take 1 [facility] ps-folate 4-17 Each by ity of no.1-dha 00:00: mouth [place] (VITAFOL 00 daily. Medical ULTRA) 29 Branch mg iron- 1 mg-200 mg Cap PNV 67-iron 2018-0 Yes [id number] 1{each} Take 1 [facility] ps-folate 4-17 Each by ity of no.1-dha 00:00: mouth [place] (VITAFOL 00 daily. Medical ULTRA) 29 Branch mg iron- 1 mg-200 mg Cap PNV 67-iron 2018-0 Yes [id number] 1{each} Take 1 [facility] ps-folate 4-17 Each by ity of no.1-dha 00:00: mouth [place] (VITAFOL 00 daily. Medical ULTRA) 29 Branch mg iron- 1 mg-200 mg Cap PNV 67-iron 2018-0 Yes [id number] 1{each} Take 1 [facility] ps-folate 4-17 Each by ity of no.1-dha 00:00: mouth [place] (VITAFOL 00 daily. Medical ULTRA) 29 Branch mg iron- 1 mg-200 mg Cap PNV 67-iron 2018-0 Yes [id number] 1{each} Take 1 [facility] ps-folate 4-17 Each by ity of no.1-dha 00:00: mouth [place] (VITAFOL 00 daily. Medical ULTRA) 29 Branch mg iron- 1 mg-200 mg Cap PNV 67-iron 2018-0 Yes [id number] 1{each} Take 1 [facility] ps-folate 4-17 Each by ity of no.1-dha 00:00: mouth [place] (VITAFOL 00 daily. Medical ULTRA) 29 Branch mg iron- 1 mg-200 mg Cap PNV 67-iron 2018-0 Yes [id number] 1{each} Take 1 [facility] ps-folate 4-17 Each by ity of no.1-dha 00:00: mouth [place] (VITAFOL 00 daily. Medical ULTRA) 29 Branch mg iron- 1 mg-200 mg Cap PNV 67-iron 2018-0 Yes [id number] 1{each} Take 1 [facility] ps-folate 4-17 Each by ity of no.1-dha 00:00: mouth [place] (VITAFOL 00 daily. Medical ULTRA) 29 Branch mg iron- 1 mg-200 mg Cap PNV 67-iron 2018-0 Yes [id number] 1{each} Take 1 [facility] ps-folate 4-17 Each by ity of no.1-dha 00:00: mouth [place] (VITAFOL 00 daily. Medical ULTRA) 29 Branch mg iron- 1 mg-200 mg Cap PNV 67-iron 2018-0 Yes [id number] 1{each} Take 1 [facility] ps-folate 4-17 Each by ity of no.1-dha 00:00: mouth [place] (VITAFOL 00 daily. Medical ULTRA) 29 Branch mg iron- 1 mg-200 mg Cap PNV 67-iron 2018-0 Yes [id number] 1{each} Take 1 [facility] ps-folate 4-17 Each by ity of no.1-dha 00:00: mouth [place] (VITAFOL 00 daily. Medical ULTRA) 29 Branch mg iron- 1 mg-200 mg Cap PNV 67-iron 2018-0 Yes [id number] 1{each} Take 1 [facility] ps-folate 4-17 Each by ity of no.1-dha 00:00: mouth [place] (VITAFOL 00 daily. Medical ULTRA) 29 Branch mg iron- 1 mg-200 mg Cap PNV 67-iron 2018-0 Yes [id number] 1{each} Take 1 [facility] ps-folate 4-17 Each by ity of no.1-dha 00:00: mouth [place] (VITAFOL 00 daily. Medical ULTRA) 29 Branch mg iron- 1 mg-200 mg Cap PNV 67-iron 2018-0 Yes [id number] 1{each} Take 1 [facility] ps-folate 4-17 Each by ity of no.1-dha 00:00: mouth [place] (VITAFOL 00 daily. Medical ULTRA) 29 Branch mg iron- 1 mg-200 mg Cap PNV 67-iron 2018-0 Yes [id number] 1{each} Take 1 [facility] ps-folate 4-17 Each by ity of no.1-dha 00:00: mouth [place] (VITAFOL 00 daily. Medical ULTRA) 29 Branch mg iron- 1 mg-200 mg Cap Immunizations Ordered Filled Immunization Date Status Comments [facility] e Immunization Name Name HPV9 2021-04-09 Completed [facility] 00:[facility]00 [facility] HPV9 2021-04-09 Completed [facility] 00:00:00 [facility] HPV9 2021-04-09 Completed [facility] 00:00:00 [facility] HPV9 2021-04-09 Completed [facility] of 00:00:00 [facility] HPV9 2021-04-09 Completed [facility] of 00:00:00 [facility] HPV9 2021-04-09 Completed [facility] of 00:00:00 [facility] HPV9 2021-04-09 Completed University of 00:00:00 [facility] HPV9 2021-04-09 Completed University of 00:00:00 [facility] Branch HPV9 2021-04-09 Completed [facility] of 00:00:00 [facility] HPV9 2021-04-09 Completed [facility] of 00:00:00 [facility] Rho (d) Immune 2021-01-28 Completed University of Globulin 00:00:00 [facility] TDAP 2021-01-28 Completed [facility] of 00:00:00 [facility] Rho (d) Immune 2021-01-28 Completed University of Globulin 00:00:00 [facility] TDAP 2021-01-28 Completed [facility] of 00:00:00 [facility] Rho (d) Immune 2021-01-28 Completed University of Globulin 00:00:00 [facility] TDAP 2021-01-28 Completed University of 00:00:00 [facility] Rho (d) Immune 2021-01-28 Completed University of Globulin 00:00:00 [facility] TDAP 2021-01-28 Completed University of 00:00:00 [facility] Rho (d) Immune 2021-01-28 Completed University of Globulin 00:00:00 [facility] TDAP 2021-01-28 Completed University of 00:00:00 [facility] Rho (d) Immune 2021-01-28 Completed University of Globulin 00:00:00 [facility] TDAP 2021-01-28 Completed University of 00:00:00 [facility] Rho (d) Immune 2021-01-28 Completed University of Globulin 00:00:00 [facility] TDAP 2021-01-28 Completed University of 00:00:00 [facility] Rho (d) Immune 2021-01-28 Completed University of Globulin 00:00:00 [facility] TDAP 2021-01-28 Completed University of 00:00:00 [facility] Rho (d) Immune 2021-01-28 Completed University of Globulin 00:00:00 [facility] TDAP 2021-01-28 Completed University of 00:00:00 [facility] Rho (d) Immune 2021-01-28 Completed University of Globulin 00:00:00 [facility] TDAP 2021-01-28 Completed [facility] of 00[facility]00:00 [facility] Rho (d) Immune 2021-01-28 [facility] 00[facility]00 [facility] Rho (d) Immune 2021-01-28 Com[facility] 00:00:00 [facility] Rho (d) Immune 2021-01-28 Completed [facility] 00:00:00 [facility] Rho (d) Immune 2021-01-28 Completed [facility] 00:00:00 [facility] Rho (d) Immune 2021-01-28 Completed [facility]00 [facility] Rho (d) Immune 2021-01-28 Com[facility] 00[facility]:00 [facility] Rho (d) Immune 2021-01-28 Completed [facility] 00:[facility]:00 [facility] Rho (d) Immune 2021-01-28 Completed [facility] 00:[facility]:00 [facility] Rho (d) Immune 2021-01-28 Completed [facility] 00:[facility]:00 [facility] Rho (d) Immune 2021-01-28 Com[facility] 00:[facility]:00 [facility] Rho (d) Immune 2021-01-28 Completed [facility] 00:[facility]:00 [facility] Influenza Virus 2020-06-04 Completed [facility] [...] Branch HPV9 2019-09-18 Completed [facility] 00:00:00 [facility] HPV9 2019-09-18 Completed [facility] 00:00:00 [facility] HPV9 2019-09-18 Completed [facility] 00:00:00 [facility] HPV9 2019-09-18 Completed [facility] 00:00:00 [facility] HPV9 2019-09-18 Completed [facility] 00:00:00 [facility] HPV9 2019-09-18 Completed [facility] 00:00:00 [facility] HPV9 2019-09-18 Completed [facility] 00:00:00 [facility] HPV9 2019-09-18 Completed [facility] 00:00:00 [facility] HPV9 2019-09-18 Completed [facility] 00:00:00 [facility] HPV9 2019-09-18 Completed [facility] 00:00:00 [facility] HPV9 2019-09-18 Completed [facility] 00:00:00 [facility] HPV9 2019-09-18 Completed [facility] 00:00:00 [facility] HPV9 2019-09-18 Completed [facility] 00:00:00 [facility] HPV9 2019-09-18 Completed [facility] 00:00:00 [facility] HPV9 2019-09-18 Completed [facility] 00:00:00 [facility] HPV9 2019-09-18 Completed [facility] 00:00:00 [facility] HPV9 2019-09-18 Completed [facility] 00:00:00 [facility] HPV9 2019-09-18 Completed [facility] 00:00:00 [facility] HPV9 2019-09-18 Completed [facility] 00:00:00 [facility] HPV9 2019-09-18 Completed [facility] of [...] Branch HPV9 2019-09-18 Completed [facility] 00:00:00 [facility] HPV9 2019-09-18 Completed [facility] 00:00:00 [facility] HPV9 2019-09-18 Completed [facility] 00:00:00 [facility] HPV9 2019-09-18 Completed [facility] 00:00:00 [facility] HPV9 2019-09-18 Completed [facility] 00:00:00 [facility] HPV9 2019-09-18 Completed [facility] 00:00:00 [facility] HPV9 2019-09-18 Completed [facility] 00:00:00 [facility] HPV9 2019-09-18 Completed [facility] 00:00:00 [facility] HPV9 2019-09-18 Completed [facility] 00:00:00 [facility] HPV9 2019-09-18 Completed [facility] 00:00:00 [facility] HPV9 2019-09-18 Completed [facility] 00:00:00 [facility] HPV9 2019-09-18 Completed [facility] 00:00:00 [facility] HPV9 2019-09-18 Completed [facility] 00:00:00 [facility] HPV9 2019-09-18 Completed [facility] 00:00:00 [facility] HPV9 2019-09-18 Completed [facility] 00:00:00 [facility] HPV9 2019-09-18 Completed [facility] 00:00:00 [facility] Rho (d) Immune 2019-06-10 Completed [facility]:00 [facility] Rho (d) Immune 2019-06-10 Completed [facility] 00[facility]:00 [facility] Rho (d) Immune 2019-06-10 Completed [facility] 00:00:00 [facility] Rho (d) Immune 2019-06-10 Completed [facility] 00:00:00 [facility] Rho (d) Immune 2019-06-10 Completed [facility] 00:[facility]:00 [facility] Rho (d) Immune 2019-06-10 Completed [facility] 00:00:00 [facility] Rho (d) Immune 2019-06-10 Completed [facility] 00:00:00 [facility] Rho (d) Immune 2019-06-10 Completed [facility] 00:00:00 [facility] Rho (d) Immune 2019-06-10 Completed [facility] 00:00:00 [facility] Rho (d) Immune 2019-06-10 Completed [facility] 00:00:00 [facility] Rho (d) Immune 2019-06-10 Completed [facility] 00:00:00 [facility] Rho (d) Immune 2019-06-10 Completed [facility] 00:00:00 [facility] Rho (d) Immune 2019-06-10 Completed [facility] 00:00:00 [facility] Rho (d) Immune 2019-06-10 Completed [facility] 00:00:00 [facility] Rho (d) Immune 2019-06-10 Completed [facility] 00:00:00 [facility] Rho (d) Immune 2019-06-10 Completed [facility] 00:00:00 [facility] Rho (d) Immune 2019-06-10 Completed [facility] 00:00:00 [facility] Rho (d) Immune 2019-06-10 Completed [facility] 00:00:00 [facility] Rho (d) Immune 2019-06-10 Completed [facility] 00:00:00 [facility] Rho (d) Immune 2019-06-10 Completed [facility] 00:00:00 [facility] Rho (d) Immune 2019-06-10 Completed [facility] 00:00:00 [facility] Rho (d) Immune 2019-06-10 Completed [facility] 00:00:00 [facility] Rho (d) Immune 2019-06-10 Completed [facility] 00:00:00 [facility] Rho (d) Immune 2019-06-10 Completed [facility] 00:00:00 [facility] Rho (d) Immune 2019-06-10 Completed [facility] 00:00:00 [facility] Rho (d) Immune 2019-06-10 Completed [facility] 00:00:00 [facility] Rho (d) Immune 2019-06-10 Completed [facility] 00:00:00 [facility] Rho (d) Immune 2019-06-10 Completed [facility] 00:00:00 [facility] Rho (d) Immune 2019-06-10 Completed [facility] 00:00:00 [facility] Rho (d) Immune 2019-06-10 Completed [facility] 00:00:00 [facility] Rho (d) Immune 2019-06-10 Completed [facility] 00:00:00 [facility] Rho (d) Immune 2019-06-10 Completed [facility] 00:00:00 [facility] Rho (d) Immune 2019-06-10 Completed [facility] 00:00:00 [facility] Rho (d) Immune 2019-06-10 Completed [facility] 00:00:00 [facility] Rho (d) Immune 2019-06-10 Completed [facility] 00:00:00 [facility] Rho (d) Immune 2019-06-10 Completed [facility] 00:00:00 [facility] Rho (d) Immune 2019-06-10 Completed [facility] 00:00:00 [facility] Rho (d) Immune 2019-06-10 Completed [facility] 00:00:00 [facility] Rho (d) Immune 2019-06-10 Completed [facility] 00:00:00 [facility] Rho (d) Immune 2019-06-10 Completed [facility] 00:00:00 [facility] Rho (d) Immune 2019-06-10 Completed [facility] 00:00:00 [facility] Rho (d) Immune 2019-06-10 Completed [facility] 00:00:00 [facility] Rho (d) Immune 2019-06-10 Completed [facility] 00:00:00 [facility] Rho (d) Immune 2019-06-10 Completed [facility] 00:00:00 [facility] Rho (d) Immune 2019-06-10 Completed [facility] 00:00:00 [facility] Rho (d) Immune 2019-06-10 Completed [facility] 00:00:00 [facility] Rho (d) Immune 2019-06-10 Completed [facility] 00:00:00 [facility] Rho (d) Immune 2019-06-10 Completed [facility] 00:00:00 [facility] Rho (d) Immune 2019-06-10 Completed [facility] 00:00:00 [facility] Rho (d) Immune 2019-06-10 Completed [facility] 00:00:00 [facility] Rho (d) Immune 2019-06-10 Completed [facility] 00:00:00 [facility] Rho (d) Immune 2019-06-10 Completed [facility] 00:00:00 [facility] Rho (d) Immune 2019-06-10 Completed [facility] 00:00:00 [facility] Rho (d) Immune 2019-06-10 Completed [facility] 00:00:00 [facility] Rho (d) Immune 2019-06-10 Completed [facility] 00:00:00 [facility] Rho (d) Immune 2019-06-10 Completed [facility] 00:00:00 [facility] Rho (d) Immune 2019-06-10 Completed [facility] 00:00:00 [facility] Rho (d) Immune 2019-06-10 Completed [facility] 00:00:00 [facility] Rho (d) Immune 2019-06-10 Completed [facility] 00:00:00 [facility] Rho (d) Immune 2019-06-10 Completed [facility] 00:00:00 [facility] Rho (d) Immune 2019-06-10 Completed [facility] 00:00:00 [facility] Rho (d) Immune 2019-06-10 Completed [facility] 00:00:00 [facility] Rho (d) Immune 2019-06-10 Completed [facility] 00:00:00 [facility] Rho (d) Immune 2019-06-10 Completed [facility] 00:[facility]:00 [facility] Rho (d) Immune 2019-06-10 Completed [facility] 00:00:00 [facility] Rho (d) Immune 2019-06-10 Completed [facility] 00:00:00 [facility] Rho (d) Immune 2019-06-10 Completed [facility] 00:00:00 [facility] Rho (d) Immune 2019-06-10 Completed [facility] 00:00:00 [facility] Rho (d) Immune 2019-06-10 Completed [facility] 00:00:00 [facility] Rho (d) Immune 2019-06-10 Completed [facility] 00:00:00 [facility] Rho (d) Immune 2019-06-10 Completed [facility] 00:00:00 [facility] Rho (d) Immune 2019-06-10 Completed [facility] 00:00:00 [facility] Rho (d) Immune 2019-06-10 Completed [facility] 00:00:00 [facility] Rho (d) Immune 2019-06-10 Completed [facility] 00:00:00 [facility] Rho (d) Immune 2019-06-10 Completed [facility] 00:00:00 [facility] Rho (d) Immune 2019-06-10 Completed [facility] 00:00:00 [facility] Rho (d) Immune 2019-06-10 Completed [facility] 00:00:00 [facility] Rho (d) Immune 2019-06-10 Completed [facility] 00:00:00 [facility] Rho (d) Immune 2019-06-10 Completed [facility] 00:00:00 [facility] Rho (d) Immune 2019-06-10 Completed [facility] 00:00:00 [facility] Rho (d) Immune 2019-06-10 Completed [facility] 00:00:00 [facility] Rho (d) Immune 2019-06-10 Completed [facility] 00:00:00 [facility] Rho (d) Immune 2019-06-10 Completed [facility] 00:00:00 [facility] Rho (d) Immune 2019-06-10 Completed [facility] 00:00:00 [facility] Rho (d) Immune 2019-06-10 Completed [facility] 00:00:00 [facility] Rho (d) Immune 2019-06-10 Completed [facility] 00:00:00 [facility] Rho (d) Immune 2019-06-10 Completed [facility] 00:00:00 [facility] Rho (d) Immune 2019-06-10 Completed [facility] 00:00:00 [facility] Rho (d) Immune 2019-06-10 Completed [facility] 00:00:00 [facility] Rho (d) Immune 2019-06-10 Completed [facility]:00 [facility] Rho (d) Immune 2019-06-10 Completed [facility] 00:[facility]:00 [facility] Tdap 2019-03-29 Completed [facility] 00:00:00 [facility] Rho (d) Immune 2019-03-29 Completed [facility]:00 [facility] Tdap 2019-03-29 Completed [facility] 00:00:00 [facility] Rho (d) Immune 2019-03-29 Completed [facility] 00:00:00 [facility] Tdap 2019-03-29 Completed [facility] 00:00:00 [facility] Rho (d) Immune 2019-03-29 Completed [facility] 00:00:00 [facility] Tdap 2019-03-29 Completed [facility] 00:00:00 [facility] Rho (d) Immune 2019-03-29 Completed [facility]:00 [facility] Tdap 2019-03-29 Completed [facility] 00:00:00 [facility] Rho (d) Immune 2019-03-29 Completed [facility] 00:00:00 [facility] Tdap 2019-03-29 Completed [facility] 00:00:00 [facility] Rho (d) Immune 2019-03-29 Completed [facility] 00:00:00 [facility] Tdap 2019-03-29 Completed [facility] 00:00:00 [facility] Rho (d) Immune 2019-03-29 Completed [facility] 00:00:00 [facility] Tdap 2019-03-29 Completed [facility] 00:00:00 [facility] Rho (d) Immune 2019-03-29 Completed [facility] 00:00:00 [facility] Tdap 2019-03-29 Completed [facility] 00:00:00 [facility] Rho (d) Immune 2019-03-29 Completed [facility] 00:00:00 [facility] Tdap 2019-03-29 Completed [facility] 00:00:00 [facility] Rho (d) Immune 2019-03-29 Completed [facility]:00 [facility] Tdap 2019-03-29 Completed [facility] 00:00:00 [facility] Rho (d) Immune 2019-03-29 Completed [facility] 00:00:00 [facility] Tdap 2019-03-29 Completed [facility] 00:00:00 [facility] Rho (d) Immune 2019-03-29 Completed [facility] 00:00:00 [facility] Tdap 2019-03-29 Completed [facility] 00:00:00 [facility] Rho (d) Immune 2019-03-29 Completed [facility] 00:00:00 [facility] TDAP 2019-03-29 Completed [facility] 00:00:00 [facility] Rho (d) Immune 2019-03-29 Completed [facility] 00:00:00 [facility] TDAP 2019-03-29 Completed [facility] 00:00:00 [facility] Rho (d) Immune 2019-03-29 Completed [facility] 00:00:00 [facility] TDAP 2019-03-29 Completed [facility] 00:00:00 [facility] Rho (d) Immune 2019-03-29 Completed [facility] 00:00:00 [facility] TDAP 2019-03-29 Completed [facility] 00:00:00 [facility] Rho (d) Immune 2019-03-29 Completed [facility] 00:00:00 [facility] TDAP 2019-03-29 Completed [facility] 00:00:00 [facility] Rho (d) Immune 2019-03-29 Completed [facility] 00:00:00 [facility] TDAP 2019-03-29 Completed [facility] 00:00:00 [facility] Rho (d) Immune 2019-03-29 Completed [facility] 00:00:00 [facility] TDAP 2019-03-29 Completed [facility] 00:00:00 [facility] Rho (d) Immune 2019-03-29 Completed [facility] 00:00:00 [facility] TDAP 2019-03-29 Completed [facility] 00:00:00 [facility] Rho (d) Immune 2019-03-29 Completed [facility] 00:00:00 [facility] TDAP 2019-03-29 Completed [facility] 00:00:00 [facility] Rho (d) Immune 2019-03-29 Completed [facility] 00:00:00 [facility] TDAP 2019-03-29 Completed [facility] 00:00:00 [facility] Rho (d) Immune 2019-03-29 Completed [facility] 00:00:00 [facility] TDAP 2019-03-29 Completed [facility] 00:00:00 [facility] Rho (d) Immune 2019-03-29 Completed [facility] 00:00:00 [facility] TDAP 2019-03-29 Completed [facility] 00:00:00 [facility] Rho (d) Immune 2019-03-29 Completed [facility] 00:00:00 [facility] TDAP 2019-03-29 Completed [facility] 00:00:00 [facility] Rho (d) Immune 2019-03-29 Completed [facility] 00:00:00 [facility] TDAP 2019-03-29 Completed [facility] 00:00:00 [facility] Rho (d) Immune 2019-03-29 Completed [facility] 00:00:00 [facility] TDAP 2019-03-29 Completed [facility] 00:00:00 [facility] Rho (d) Immune 2019-03-29 Completed [facility] 00:00:00 [facility] TDAP 2019-03-29 Completed [facility] 00:00:00 [facility] Rho (d) Immune 2019-03-29 Completed [facility] 00:00:00 [facility] TDAP 2019-03-29 Completed [facility] 00:00:00 [facility] Rho (d) Immune 2019-03-29 Completed [facility] 00:00:00 [facility] TDAP 2019-03-29 Completed [facility] 00:00:00 [facility] Rho (d) Immune 2019-03-29 Completed [facility] 00:00:00 [facility] TDAP 2019-03-29 Completed [facility] 00:00:00 [facility] Rho (d) Immune 2019-03-29 Completed [facility] 00:00:00 [facility] TDAP 2019-03-29 Completed [facility] 00:00:00 [facility] Rho (d) Immune 2019-03-29 Completed [facility] 00:00:00 [facility] TDAP 2019-03-29 Completed [facility] 00:00:00 [facility] Rho (d) Immune 2019-03-29 Completed [facility] 00:00:00 [facility] TDAP 2019-03-29 Completed [facility] 00:00:00 [facility] Rho (d) Immune 2019-03-29 Completed [facility]:00 [facility] TDAP 2019-03-29 Completed [facility] 00:00:00 [facility] Rho (d) Immune 2019-03-29 Completed [facility] 00:00:00 [facility] TDAP 2019-03-29 Completed [facility] 00:00:00 [facility] Rho (d) Immune 2019-03-29 Completed [facility] 00:00:00 [facility] TDAP 2019-03-29 Completed [facility] 00:00:00 [facility] Rho (d) Immune 2019-03-29 Completed [facility] 00:00:00 [facility] TDAP 2019-03-29 Completed [facility] 00:00:00 [facility] Rho (d) Immune 2019-03-29 Completed [facility] 00:00:00 [facility] TDAP 2019-03-29 Completed [facility] 00:00:00 [facility] Rho (d) Immune 2019-03-29 Completed [facility] 00:00:00 [facility] TDAP 2019-03-29 Completed [facility] 00:00:00 [facility] Rho (d) Immune 2019-03-29 Completed [facility] 00:00:00 [facility] TDAP 2019-03-29 Completed [facility] 00:00:00 [facility] Rho (d) Immune 2019-03-29 Completed [facility] 00:00:00 [facility] TDAP 2019-03-29 Completed [facility] 00:00:00 [facility] Rho (d) Immune 2019-03-29 Completed [facility] 00:00:00 [facility] TDAP 2019-03-29 Completed [facility] 00:00:00 [facility] Rho (d) Immune 2019-03-29 Completed [facility] 00:00:00 [facility] TDAP 2019-03-29 Completed [facility] 00:00:00 [facility] Rho (d) Immune 2019-03-29 Completed [facility] 00:00:00 [facility] TDAP 2019-03-29 Completed [facility] 00:00:00 [facility] Rho (d) Immune 2019-03-29 Completed [facility] 00:00:00 [facility] TDAP 2019-03-29 Completed [facility] 00:00:00 [facility] Rho (d) Immune 2019-03-29 Completed [facility] 00:00:00 [facility] TDAP 2019-03-29 Completed [facility] 00:00:00 [facility] Rho (d) Immune 2019-03-29 Completed [facility] 00:[facility]:00 [facility] TDAP 2019-03-29 Completed [facility] 00:00:00 [facility] Rho (d) Immune 2019-03-29 Completed [facility] 00:[facility]:00 [facility] TDAP 2019-03-29 Completed [facility] 00:00:00 [facility] Rho (d) Immune 2019-03-29 Completed [facility] 00:00:00 [facility] TDAP 2019-03-29 Completed [facility] 00:00:00 [facility] Rho (d) Immune 2019-03-29 Completed [facility] 00:[facility]:00 [facility] TDAP 2019-03-29 Completed [facility] 00:00:00 [facility] Rho (d) Immune 2019-03-29 Completed [facility] 00:00:00 [facility] TDAP 2019-03-29 Completed [facility] 00:00:00 [facility] Rho (d) Immune 2019-03-29 Completed [facility] 00:00:00 [facility] TDAP 2019-03-29 Completed [facility] 00:00:00 [facility] Rho (d) Immune 2019-03-29 Completed [facility] 00:00:00 [facility] TDAP 2019-03-29 Completed [facility] 00:00:00 [facility] Rho (d) Immune 2019-03-29 Completed [facility] 00:00:00 [facility] TDAP 2019-03-29 Completed [facility] 00:00:00 [facility] Rho (d) Immune 2019-03-29 Completed [facility]:00 [place] [facility] TDAP 2019-03-29 Completed [facility] 00:00:00 [facility] Rho (d) Immune 2019-03-29 Completed [facility] Globulin 00:00:00 [facility] TDAP 2019-03-29 Completed [facility] 00:00:00 [facility] Rho (d) Immune 2019-03-29 Completed [facility] Globulin 00:00:00 [facility] TDAP 2019-03-29 Completed [facility] 00:00:00 [facility] Rho (d) Immune 2019-03-29 Completed [facility] Globulin 00:00:00 [facility] TDAP 2019-03-29 Completed [facility] 00:00:00 [facility] Rho (d) Immune 2019-03-29 Completed [facility] Globulin 00:00:00 [facility] TDAP 2019-03-29 Completed [facility] 00:00:00 [facility] Rho (d) Immune 2019-03-29 Completed [facility] Globulin 00:00:00 [facility] TDAP 2019-03-29 Completed [facility] 00:00:00 [facility] Rho (d) Immune 2019-03-29 Completed [facility] Globulin 00:00:00 [facility] TDAP 2019-03-29 Completed [facility] 00:00:00 [facility] Rho (d) Immune 2019-03-29 Completed [facility] Globulin 00:00:00 [facility] TDAP 2019-03-29 Completed [facility] 00:00:00 [facility] Rho (d) Immune 2019-03-29 Completed [facility] Globulin 00:00:00 [facility] TDAP 2019-03-29 Completed [facility] 00:00:00 [facility] Rho (d) Immune 2019-03-29 Completed [facility] Globulin 00:00:00 [facility] TDAP 2019-03-29 Completed [facility] 00:00:00 [facility] Rho (d) Immune 2019-03-29 Completed [facility] Globulin 00:00:00 [facility] TDAP 2019-03-29 Completed [facility] 00:00:00 [facility] Rho (d) Immune 2019-03-29 Completed [facility] Globulin 00:00:00 [facility] TDAP 2019-03-29 Completed [facility] 00:00:00 [facility] Rho (d) Immune 2019-03-29 Completed [facility] Globulin 00:00:00 [facility] TDAP 2019-03-29 Completed [facility] 00:00:00 [facility] Rho (d) Immune 2019-03-29 Completed [facility] Globulin 00:00:00 [facility] TDAP 2019-03-29 Completed [facility] 00:00:00 [facility] Rho (d) Immune 2019-03-29 Completed [facility] Globulin 00:00:00 [facility] TDAP 2019-03-29 Completed [facility] 00:00:00 [facility] Rho (d) Immune 2019-03-29 Completed [facility] Globulin 00:00:00 [facility] TDAP 2019-03-29 Completed [facility] 00:00:00 [facility] Rho (d) Immune 2019-03-29 Completed [facility] Globulin 00:00:00 [facility] TDAP 2019-03-29 Completed [facility] 00[facility]00:00 [facility] Rho (d) Immune 2019-03-29 Completed [facility] Globulin 00:00:00 [facility] TDAP 2019-03-29 Completed [facility] 00:00:00 [facility] Rho (d) Immune 2019-03-29 Completed [facility] Globulin 00:00:00 [facility] TDAP 2019-03-29 Completed [facility] 00:00:00 [facility] Rho (d) Immune 2019-03-29 Completed [facility] Globulin 00:00:00 [facility] TDAP 2019-03-29 Completed [facility] 00:00:00 [facility] Rho (d) Immune 2019-03-29 Completed [facility] Globulin 00:00:00 [facility] TDAP 2019-03-29 Completed [facility] 00:00:00 [facility] Rho (d) Immune 2019-03-29 Completed [facility] Globulin 00:00:00 [facility] TDAP 2019-03-29 Completed [facility] 00:00:00 [facility] Rho (d) Immune 2019-03-29 Completed [facility] Globulin 00:00:00 [facility] TDAP 2019-03-29 Completed [facility] 00[facility]00:00 [facility] Rho (d) Immune 2019-03-29 Completed [facility] Globulin 00:00:00 [facility] TDAP 2019-03-29 Completed [facility] 00:00:00 [facility] Rho (d) Immune 2019-03-29 Completed [facility] Globulin 00:00:00 [facility] TDAP 2019-03-29 Completed [facility] 00:00:00 [facility] Rho (d) Immune 2019-03-29 Completed [facility] Globulin 00:00:00 [facility] TDAP 2019-03-29 Completed [facility] 00:00:00 [facility] Rho (d) Immune 2019-03-29 Completed [facility] Globulin 00:00:00 [facility] TDAP 2019-03-29 Completed [facility] 00:00:00 [facility] Rho (d) Immune 2019-03-29 Completed [facility] Globulin 00:00:00 [facility] TDAP 2019-03-29 Completed [facility] 00:00:00 [facility] Rho (d) Immune 2019-03-29 Completed [facility] Globulin 00:00:00 [facility] TDAP 2019-03-29 Completed [facility] 00:00:00 [facility] Rho (d) Immune 2019-03-29 Completed [facility] Globulin 00:00:00 [facility] TDAP 2019-03-29 Completed [facility] 00:00:00 [facility] Rho (d) Immune 2019-03-29 Completed [facility] Globulin 00:00:00 [facility] TDAP 2019-03-29 Completed [facility] 00:00:00 [facility] Rho (d) Immune 2019-03-29 Completed [facility] Globulin 00:00:00 [facility] TDAP 2019-03-29 Completed [facility] 00:00:00 [facility] Rho (d) Immune 2019-03-29 Completed [facility] Globulin 00:00:00 [facility] TDAP 2019-03-29 Completed [facility] 00:00:00 [facility] Rho (d) Immune 2019-03-29 Completed [facility] Globulin 00:00:00 [facility] TDAP 2019-03-29 Completed [facility] 00:00:00 [facility] Rho (d) Immune 2019-03-29 Completed [facility] Globulin 00:00:00 [facility] TDAP 2019-03-29 Completed [facility] 00:00:00 [facility] Rho (d) Immune 2019-03-29 Completed [facility] Globulin 00:00:00 [facility] TDAP 2019-03-29 Completed [facility] 00:00:00 [facility] Rho (d) Immune 2019-03-29 Completed [facility] Globulin 00:00:00 [facility] TDAP 2019-03-29 Completed [facility] 00:00:00 [facility] Rho (d) Immune 2019-03-29 Completed [facility] Globulin 00:00:00 [facility] TDAP 2019-03-29 Completed [facility] 00:00:00 [facility] Rho (d) Immune 2019-03-29 Completed [facility] Globulin 00:00:00 [facility] TDAP 2019-03-29 Completed [facility] 00:00:00 [facility] Rho (d) Immune 2019-03-29 Completed [facility] Globulin 00:00:00 [facility] Tdap 2019-03-29 Completed [facility] 00:00:00 [facility] Rho (d) Immune 2019-03-29 Completed [facility] Globulin 00:00:00 [facility] Tdap 2019-03-29 Completed [facility] 00:00:00 [facility] Rho (d) Immune 2019-03-29 Completed [facility] Globulin 00:00:00 [facility] Tdap 2019-03-29 Completed [facility] 00:00:00 [facility] Rho (d) Immune 2019-03-29 Completed [facility] Globulin 00:00:00 [facility] Tdap 2019-03-29 Completed [facility] 00:00:00 [facility] Rho (d) Immune 2019-03-29 Completed [facility] Globulin 00:00:00 [facility] Tdap 2019-03-29 Completed [facility] 00:00:00 [facility] Rho (d) Immune 2019-03-29 Completed [facility] Globulin 00:00:00 [facility] Tdap 2019-03-29 Completed [facility] 00:00:00 [facility] Rho (d) Immune 2019-03-29 Completed [facility] Globulin 00:00:00 [facility] Tdap 2019-03-29 Completed [facility] 00:00:00 [facility] Rho (d) Immune 2019-03-29 Completed [facility] Globulin 00:00:00 [facility] Tdap 2019-03-29 Completed [facility] 00:00:00 [facility] Rho (d) Immune 2019-03-29 Completed [facility] Globulin 00:00:00 [facility] Influenza Virus 2018-10-20 Completed [facility] .5 mL 00:00:00 [facility] Influenza Virus 2018-10-20 Completed [facility] .5 mL 00:00:00 [facility] Influenza Virus 2018-10-20 Completed [facility] .5 mL 00:00:00 [facility] Influenza Virus [...] y of [facility] .5 mL 00:00:00 [facility] Influenza Virus [...] y of [facility] .5 mL 00:00:00 [facility] Influenza Virus [...] y of [facility] .5 mL 00:00:00 [facility] 6[facility] Influenza Virus 2018-10-20 Completed [facility] .5 mL 00:00:00 [facility] Influenza Virus 2018-10-20 Completed [facility] .5 mL 00:00:00 [facility] Influenza Virus 2018-10-20 Completed [facility] .5 mL 00:00:00 [facility] 6[facility] Influenza Virus 2018-10-20 Completed [facility] .5 mL 00:00:00 [facility] Influenza Virus [...] y of [facility] .5 mL 00:00:00 [facility] Influenza Virus [...] y of [facility] .5 mL 00:00:00 [facility] Influenza Virus 2018-10-20 Completed [facility] .5 mL 00:00:00 [facility] Influenza Virus 2018-10-20 Completed [facility] .5 mL 00:00:00 [facility] Influenza Virus 2018-10-20 Completed [facility] .5 mL 00:00:00 [facility] Influenza Virus 2018-10-20 Completed [facility] .5 mL 00:00:00 [facility] Influenza Virus 2018-10-20 Completed [facility] .5 mL 00:00:00 [facility] 6[facility] Influenza Virus 2018-10-20 Completed [facility] .5 mL 00:00:00 [facility] Influenza Virus 2018-10-20 Completed [facility] .5 mL 00:00:00 [facility] 6[facility] Influenza Virus 2018-10-20 Completed [facility] .5 mL 00:00:00 [facility] 6[facility] Influenza Virus 2018-10-20 Completed [facility] .5 mL 00:00:00 [facility] Influenza Virus 2018-10-20 Completed [facility] .5 mL 00:00:00 [facility] 6[facility] Influenza Virus [...] y of [facility] .5 mL 00:00:00 [facility] HPV9 2018-07-11 Completed [facility] 00:00:00 [facility] HPV9 2018-07-11 Completed [facility] 00:00:00 [facility] HPV9 2018-07-11 Completed [facility] 00:00:00 [facility] HPV9 2018-07-11 Completed [facility] 00:00:00 [facility] HPV9 2018-07-11 Completed [facility] 00:00:00 [facility] HPV9 2018-07-11 Completed [facility] 00:00:00 [facility] HPV9 2018-07-11 Completed [facility] 00:00:00 [facility] HPV9 2018-07-11 Completed [facility] 00:00:00 [facility] HPV9 2018-07-11 Completed [facility] 00:00:00 [facility] HPV9 2018-07-11 Completed [facility] 00:00:00 [facility] HPV9 2018-07-11 Completed [facility] 00:00:00 [facility] HPV9 2018-07-11 Completed [facility] 00:00:00 [facility] HPV9 2018-07-11 Completed [facility] 00:00:00 [facility] HPV9 2018-07-11 Completed [facility] 00:00:00 [facility] HPV9 2018-07-11 Completed [facility] 00:00:00 [facility] HPV9 2018-07-11 Completed [facility] 00:00:00 [facility] HPV9 2018-07-11 Completed [facility] 00:00:00 [facility] HPV9 2018-07-11 Completed [facility] 00:00:00 [facility] HPV9 2018-07-11 Completed [facility] [...] Branch HPV9 2018-07-11 Completed [facility] 00:00:00 [facility] HPV9 2018-07-11 Completed [facility] 00:00:00 [facility] HPV9 2018-07-11 Completed [facility] 00:00:00 [facility] HPV9 2018-07-11 Completed [facility] 00:00:00 [facility] HPV9 2018-07-11 Completed [facility] 00:00:00 [facility] HPV9 2018-07-11 Completed [facility] 00:00:00 [facility] HPV9 2018-07-11 Completed [facility] 00:00:00 [facility] HPV9 2018-07-11 Completed [facility] 00:00:00 [facility] HPV9 2018-07-11 Completed [facility] 00:00:00 [facility] HPV9 2018-07-11 Completed [facility] 00:00:00 [facility] HPV9 2018-06-11 Completed [facility] 00:00:00 [facility] Rho (d) Immune 2018-06-11 Completed [facility] Globulin 00:00:00 [facility] 2018-06-11 Completed [facility] 00:00:00 [facility] Rho (d) Immune 2018-06-11 Completed [facility] Globulin 00:00:00 [facility] HPV9 2018-06-11 Completed [facility] 00:00:00 [facility] Rho (d) Immune 2018-06-11 Completed [facility] Globulin 00:00:00 [facility] HPV9 2018-06-11 Completed [facility] 00:00:00 [facility] Rho (d) Immune 2018-06-11 Completed [facility] Globulin 00:00:00 [facility] HPV9 2018-06-11 Completed [facility] 00:00:00 [facility] Rho (d) Immune 2018-06-11 Completed [facility] Globulin 00:00:00 [facility] HPV9 2018-06-11 Completed [facility] 00:00:00 [facility] Rho (d) Immune 2018-06-11 Completed [facility] Globulin 00:00:00 [facility] HPV9 2018-06-11 Completed [facility] 00:00:00 [facility] Rho (d) Immune 2018-06-11 Completed [facility] Globulin 00:00:00 [facility] HPV9 2018-06-11 Completed [facility] 00:00:00 [facility] Rho (d) Immune 2018-06-11 Completed [facility] Globulin 00:00:00 [facility] HPV9 2018-06-11 Completed [facility] 00:00:00 [facility] Rho (d) Immune 2018-06-11 Completed [facility] Globulin 00:00:00 [facility] HPV9 2018-06-11 Completed [facility] 00:00:00 [facility] Rho (d) Immune 2018-06-11 Completed [facility] Globulin 00:00:00 [facility] HPV9 2018-06-11 Completed [facility] 00:00:00 [facility] Rho (d) Immune 2018-06-11 Completed [facility] Globulin 00:00:00 [facility] HPV9 2018-06-11 Completed [facility] 00:00:00 [facility] Rho (d) Immune 2018-06-11 Completed [facility] Globulin 00:00:00 [facility] HPV9 2018-06-11 Completed [facility] 00:00:00 [facility] Rho (d) Immune 2018-06-11 Completed [facility] Globulin 00:00:00 [facility] HPV9 2018-06-11 Completed [facility] 00:00:00 [facility] Rho (d) Immune 2018-06-11 Completed [facility] Globulin 00:00:00 [facility] HPV9 2018-06-11 Completed [facility] 00:00:00 [facility] Rho (d) Immune 2018-06-11 Completed [facility] Globulin 00:00:00 [facility] HPV9 2018-06-11 Completed [facility] 00:00:00 [facility] Rho (d) Immune 2018-06-11 Completed [facility] Globulin 00:00:00 [facility] HPV9 2018-06-11 Completed [facility] 00:00:00 [facility] Rho (d) Immune 2018-06-11 Completed [facility] Globulin 00:00:00 [facility] HPV9 2018-06-11 Completed [facility] 00:00:00 [facility] Rho (d) Immune 2018-06-11 Completed [facility] Globulin 00:00:00 [facility] HPV9 2018-06-11 Completed [facility] 00:00:00 [facility] Rho (d) Immune 2018-06-11 Completed [facility] Globulin 00:00:00 [facility] HPV9 2018-06-11 Completed [facility] 00:00:00 [facility] Rho (d) Immune 2018-06-11 Completed [facility] Globulin 00:00:00 [facility] HPV9 2018-06-11 Completed [facility] 00:00:00 [facility] Rho (d) Immune 2018-06-11 Completed [facility] Globulin 00:00:00 [facility] HPV9 2018-06-11 Completed [facility] 00:00:00 [facility] Rho (d) Immune 2018-06-11 Completed [facility] Globulin 00:00:00 [facility] HPV9 2018-06-11 Completed [facility] 00:00:00 [facility] Rho (d) Immune 2018-06-11 Completed [facility] Globulin 00:00:00 [facility] HPV9 2018-06-11 Completed [facility] 00:00:00 [facility] Rho (d) Immune 2018-06-11 Completed [facility] Globulin 00:00:00 [facility] HPV9 2018-06-11 Completed [facility] 00:00:00 [facility] Rho (d) Immune 2018-06-11 Completed [facility] Globulin 00:00:00 [facility] HPV9 2018-06-11 Completed [facility] 00:00:00 [facility] Rho (d) Immune 2018-06-11 Completed [facility] Globulin 00:00:00 [facility] HPV9 2018-06-11 Completed [facility] 00:00:00 [facility] Rho (d) Immune 2018-06-11 Completed [facility] Globulin 00:00:00 [facility] HPV9 2018-06-11 Completed [facility] 00:00:00 [facility] Rho (d) Immune 2018-06-11 Completed [facility] Globulin 00:00:00 [facility] HPV9 2018-06-11 Completed [facility] 00:00:00 [facility] Rho (d) Immune 2018-06-11 Completed [facility] Globulin 00:00:00 [facility] HPV9 2018-06-11 Completed [facility] 00:00:00 [facility] Rho (d) Immune 2018-06-11 Completed [facility] Globulin 00:00:00 [facility] HPV9 2018-06-11 Completed [facility] 00:00:00 [facility] Rho (d) Immune 2018-06-11 Completed [facility] Globulin 00:00:00 [facility] HPV9 2018-06-11 Completed [facility] 00:00:00 [facility] Rho (d) Immune 2018-06-11 Completed [facility] Globulin 00:00:00 [facility] HPV9 2018-06-11 Completed [facility] 00:00:00 [facility] Rho (d) Immune 2018-06-11 Completed [facility] Globulin 00:00:00 [facility] HPV9 2018-06-11 Completed [facility] 00:00:00 [facility] Rho (d) Immune 2018-06-11 Completed [facility] Globulin 00:00:00 [facility] HPV9 2018-06-11 Completed [facility] 00:00:00 [facility] Rho (d) Immune 2018-06-11 Completed [facility] Globulin 00:00:00 [facility] HPV9 2018-06-11 Completed [facility] 00:00:00 [facility] Rho (d) Immune 2018-06-11 Completed [facility] Globulin 00:00:00 [facility] HPV9 2018-06-11 Completed [facility] 00:00:00 [facility] Rho (d) Immune 2018-06-11 Completed [facility] Globulin 00:00:00 [facility] HPV9 2018-06-11 Completed [facility] 00:00:00 [facility] Rho (d) Immune 2018-06-11 Completed [facility] Globulin 00:00:00 [facility] HPV9 2018-06-11 Completed [facility] 00:00:00 [facility] Rho (d) Immune 2018-06-11 Completed [facility] Globulin 00:00:00 [facility] HPV9 2018-06-11 Completed [facility] 00:00:00 [facility] Rho (d) Immune 2018-06-11 Completed [facility] Globulin 00:00:00 [facility] HPV9 2018-06-11 Completed [facility] 00:00:00 [facility] Rho (d) Immune 2018-06-11 Completed [facility] Globulin 00:00:00 [facility] HPV9 2018-06-11 Completed [facility] 00:00:00 [facility] Rho (d) Immune 2018-06-11 Completed [facility] Globulin 00:00:00 [facility] HPV9 2018-06-11 Completed [facility] 00:00:00 [facility] Rho (d) Immune 2018-06-11 Completed [facility] Globulin 00:00:00 [facility] HPV9 2018-06-11 Completed [facility] 00:00:00 [facility] Rho (d) Immune 2018-06-11 Completed [facility] Globulin 00:00:00 [facility] HPV9 2018-06-11 Completed [facility] 00:00:00 [facility] Rho (d) Immune 2018-06-11 Completed [facility] Globulin 00:00:00 [facility] HPV9 2018-06-11 Completed [facility] 00:00:00 [facility] Rho (d) Immune 2018-06-11 Completed [facility] Globulin 00:00:00 [facility] HPV9 2018-06-11 Completed [facility] 00:00:00 [facility] Rho (d) Immune 2018-06-11 Completed [facility] Globulin 00:00:00 [facility] HPV9 2018-06-11 Completed [facility] 00:00:00 [facility] Rho (d) Immune 2018-06-11 Completed [facility] Globulin 00:00:00 [facility] HPV9 2018-06-11 Completed [facility] 00:00:00 [facility] Rho (d) Immune 2018-06-11 Completed [facility] Globulin 00:00:00 [facility] HPV9 2018-06-11 Completed [facility] 00:00:00 [facility] Rho (d) Immune 2018-06-11 Completed [facility] Globulin 00:00:00 [facility] HPV9 2018-06-11 Completed [facility] 00:00:00 [facility] Rho (d) Immune 2018-06-11 Completed [facility] Globulin 00:00:00 [facility] HPV9 2018-06-11 Completed [facility] 00:00:00 [facility] Rho (d) Immune 2018-06-11 Completed [facility] Globulin 00:00:00 [facility] HPV9 2018-06-11 Completed [facility] 00:00:00 [facility] Rho (d) Immune 2018-06-11 Completed [facility] Globulin 00:00:00 [facility] HPV9 2018-06-11 Completed [facility] 00:00:00 [facility] Rho (d) Immune 2018-06-11 Completed [facility] Globulin 00:00:00 [facility] HPV9 2018-06-11 Completed [facility] 00:00:00 [facility] Rho (d) Immune 2018-06-11 Completed [facility] Globulin 00:00:00 [facility] HPV9 2018-06-11 Completed [facility] 00:00:00 [facility] Rho (d) Immune 2018-06-11 Completed [facility] Globulin 00:00:00 [facility] HPV9 2018-06-11 Completed [facility] 00:00:00 [facility] Rho (d) Immune 2018-06-11 Completed [facility] Globulin 00:00:00 [facility] HPV9 2018-06-11 Completed [facility] 00:00:00 [facility] Rho (d) Immune 2018-06-11 Completed [facility] Globulin 00:00:00 [facility] HPV9 2018-06-11 Completed [facility] 00:00:00 [facility] Rho (d) Immune 2018-06-11 Completed [facility] Globulin 00:00:00 [facility] HPV9 2018-06-11 Completed [facility] of 00:00:00 [facility] Rho (d) Immune 2018-06-11 Completed [facility] Globulin 00:00:00 [facility] HPV9 2018-06-11 Completed [facility] 00:00:00 [facility] Rho (d) Immune 2018-06-11 Completed [facility] Globulin 00:00:00 [facility] HPV9 2018-06-11 Completed [facility] of 00:00:00 [facility] Rho (d) Immune 2018-06-11 Completed [facility] Globulin 00:00:00 [facility] HPV9 2018-06-11 Completed [facility] 00:00:00 [facility] Rho (d) Immune 2018-06-11 Completed [facility] Globulin 00:00:00 [facility] HPV9 2018-06-11 Completed [facility] 00:00:00 [facility] Rho (d) Immune 2018-06-11 Completed [facility] Globulin 00:00:00 [facility] HPV9 2018-06-11 Completed [facility] of 00:00:00 [facility] Rho (d) Immune 2018-06-11 Completed [facility] Globulin 00:00:00 [facility] HPV9 2018-06-11 Completed [facility] of 00:00:00 [facility] Rho (d) Immune 2018-06-11 Completed [facility] Globulin 00:00:00 [facility] HPV9 2018-06-11 Completed [facility] 00:00:00 [facility] Rho (d) Immune 2018-06-11 Completed [facility] Globulin 00:00:00 [facility] HPV9 2018-06-11 Completed [facility] 00:00:00 [facility] Rho (d) Immune 2018-06-11 Completed [facility] Globulin 00:00:00 [facility] HPV9 2018-06-11 Completed [facility] of 00:00:00 [facility] Rho (d) Immune 2018-06-11 Completed [facility] Globulin 00:00:00 [facility] HPV9 2018-06-11 Completed [facility] 00:00:00 [facility] Rho (d) Immune 2018-06-11 Completed [facility] Globulin 00:00:00 [facility] HPV9 2018-06-11 Completed [facility] 00:00:00 [facility] Rho (d) Immune 2018-06-11 Completed [facility] Globulin 00:00:00 [facility] HPV9 2018-06-11 Completed [facility] 00:00:00 [facility] Rho (d) Immune 2018-06-11 Completed [facility] Globulin 00:00:00 [facility] HPV9 2018-06-11 Completed [facility] 00:00:00 [facility] Rho (d) Immune 2018-06-11 Completed [facility] Globulin 00:00:00 [facility] HPV9 2018-06-11 Completed [facility] of 00:00:00 [facility] Rho (d) Immune 2018-06-11 Completed [facility] Globulin 00:00:00 [facility] HPV9 2018-06-11 Completed [facility] of 00:00:00 [facility] Rho (d) Immune 2018-06-11 Completed [facility] Globulin 00:00:00 [facility] HPV9 2018-06-11 Completed [facility] 00:00:00 [facility] Rho (d) Immune 2018-06-11 Completed [facility] Globulin 00:00:00 [facility] HPV9 2018-06-11 Completed [facility] of 00:00:00 [facility] Rho (d) Immune 2018-06-11 Completed [facility] Globulin 00:00:00 [facility] HPV9 2018-06-11 Completed [facility] 00:00:00 [facility] Rho (d) Immune 2018-06-11 Completed [facility] Globulin 00:00:00 [facility] HPV9 2018-06-11 Completed [facility] 00:00:00 [facility] Rho (d) Immune 2018-06-11 Completed [facility] Globulin 00:00:00 [facility] HPV9 2018-06-11 Completed [facility] 00:00:00 [facility] Rho (d) Immune 2018-06-11 Completed [facility] Globulin 00:00:00 [facility] HPV9 2018-06-11 Completed [facility] 00:00:00 [facility] Rho (d) Immune 2018-06-11 Completed [facility] Globulin 00:00:00 [facility] HPV9 2018-06-11 Completed [facility] of 00:00:00 [facility] Rho (d) Immune 2018-06-11 Completed [facility] Globulin 00:00:00 [facility] HPV9 2018-06-11 Completed [facility] 00:00:00 [facility] Rho (d) Immune 2018-06-11 Completed [facility] Globulin 00:00:00 [facility] HPV9 2018-06-11 Completed [facility] 00:00:00 [facility] Rho (d) Immune 2018-06-11 Completed [facility] Globulin 00:00:00 [facility] HPV9 2018-06-11 Completed [facility] of 00:00:00 [facility] Rho (d) Immune 2018-06-11 Completed [facility] Globulin 00:00:00 [facility] HPV9 2018-06-11 Completed [facility] of 00:00:00 [facility] Rho (d) Immune 2018-06-11 Completed [facility] Globulin 00:00:00 [facility] HPV9 2018-06-11 Completed [facility] 00:00:00 [facility] Rho (d) Immune 2018-06-11 Completed [facility] Globulin 00:00:00 [facility] HPV9 2018-06-11 Completed [facility] 00:00:00 [facility] Rho (d) Immune 2018-06-11 Completed [facility] Globulin 00:00:00 [facility] HPV9 2018-06-11 Completed [facility] 00:00:00 [facility] Rho (d) Immune 2018-06-11 Completed [facility] Globulin 00:00:00 [facility] HPV9 2018-06-11 Completed [facility] 00:00:00 [facility] Rho (d) Immune 2018-06-11 Completed [facility] Globulin 00:00:00 [facility] HPV9 2018-06-11 Completed [facility] 00:00:00 [facility] Rho (d) Immune 2018-06-11 Completed [facility] Globulin 00:00:00 [facility] HPV9 2018-06-11 Completed [facility] 00:00:00 [facility] Rho (d) Immune 2018-06-11 Completed [facility] Globulin 00:00:00 [facility] HPV9 2018-06-11 Completed [facility] 00:00:00 [facility] Rho (d) Immune 2018-06-11 Completed [facility] Globulin 00:00:00 [facility] HPV9 2018-06-11 Completed [facility] 00:00:00 [facility] Rho (d) Immune 2018-06-11 Completed [facility] Globulin 00:00:00 [facility] HPV9 2018-06-11 Completed [facility] 00:00:00 [facility] Rho (d) Immune 2018-06-11 Completed [facility] Globulin 00:00:00 [facility] HPV9 2018-06-11 Completed [facility] 00:00:00 [facility] Rho (d) Immune 2018-06-11 Completed [facility] Globulin 00:00:00 [facility] HPV9 2018-06-11 Completed [facility] of 00:00:00 [facility] Rho (d) Immune 2018-06-11 Completed [facility] Globulin 00:00:00 [facility] HPV9 2018-06-11 Completed [facility] 00:00:00 [facility] Rho (d) Immune 2018-06-11 Completed [facility] Globulin 00:00:00 [facility] HPV9 2018-06-11 Completed [facility] of 00:00:00 [facility] Rho (d) Immune 2018-06-11 Completed [facility] Globulin 00:00:00 [facility] HPV9 2018-06-11 Completed [facility] of 00:00:00 [facility] Rho (d) Immune 2018-06-11 Completed [facility] Globulin 00:00:00 [facility] HPV9 2018-06-11 Completed [facility] 00:00:00 [facility] Rho (d) Immune 2018-06-11 Completed [facility] Globulin 00:00:00 [facility] HPV9 2018-06-11 Completed [facility] 00:00:00 [facility] Rho (d) Immune 2018-06-11 Completed [facility] Globulin 00:00:00 [facility] HPV9 2018-06-11 Completed [facility] 00:00:00 [facility] Rho (d) Immune 2018-06-11 Completed [facility] Globulin 00:00:00 [facility] HPV9 2018-06-11 Completed [facility] 00:00:00 [facility] Rho (d) Immune 2018-06-11 Completed [facility] Globulin 00:00:00 [facility] HPV9 2018-06-11 Completed [facility] 00:00:00 [facility] Rho (d) Immune 2018-06-11 Completed [facility] Globulin 00:00:00 [facility] HPV9 2018-06-11 Completed [facility] 00:00:00 [facility] Rho (d) Immune 2018-06-11 Completed [facility] Globulin 00:00:00 [facility] HPV9 2018-06-11 Completed [facility] 00:00:00 [facility] Rho (d) Immune 2018-06-11 Completed [facility] Globulin 00:00:00 [facility] HPV9 2018-06-11 Completed [facility] 00:00:00 [facility] Rho (d) Immune 2018-06-11 Completed [facility] Globulin 00:00:00 [facility] HPV9 2018-06-11 Completed [facility] 00:00:00 [facility] Rho (d) Immune 2018-06-11 Completed [facility] Globulin 00:00:00 [facility] HPV9 2018-06-11 Completed [facility] 00:00:00 [facility] Rho (d) Immune 2018-06-11 Completed [facility] Globulin 00:00:00 [facility] HPV9 2018-06-11 Completed [facility] 00:00:00 [facility] Rho (d) Immune 2018-06-11 Completed [facility] Globulin 00:00:00 [facility] HPV9 2018-06-11 Completed [facility] 00:00:00 [facility] Rho (d) Immune 2018-06-11 Completed [facility] Globulin 00:00:00 [facility] Tdap 2018-04-18 Completed [facility] of 00:00:00 [facility] Tdap 2018-04-18 Completed [facility] 00:00:00 [facility] Tdap 2018-04-18 Completed [facility] 00:00:00 [facility] Tdap 2018-04-18 Completed [facility] 00:00:00 [facility] Tdap 2018-04-18 Completed [facility] 00:00:00 [facility] Tdap 2018-04-18 Completed [facility] 00:00:00 [facility] Tdap 2018-04-18 Completed [facility] 00:00:00 [facility] Tdap 2018-04-18 Completed [facility] 00:00:00 [facility] Tdap 2018-04-18 Completed [facility] 00:00:00 [facility] Tdap 2018-04-18 Completed [facility] 00:00:00 [facility] Tdap 2018-04-18 Completed [facility] 00:00:00 [facility] Tdap 2018-04-18 Completed [facility] 00:00:00 [facility] TDAP 2018-04-18 Completed [facility] 00:00:00 [facility] TDAP 2018-04-18 Completed [facility] 00:00:00 [facility] TDAP 2018-04-18 Completed [facility] 00:00:00 [facility] TDAP 2018-04-18 Completed [facility] 00:00:00 [facility] TDAP 2018-04-18 Completed [facility] 00:00:00 [facility] TDAP 2018-04-18 Completed [facility] 00:00:00 [facility] TDAP 2018-04-18 Completed [facility] 00:00:00 [facility] TDAP 2018-04-18 Completed [facility] 00:00:00 [facility] TDAP 2018-04-18 Completed [facility] 00:00:00 [facility] TDAP 2018-04-18 Completed [facility] 00:00:00 [facility] TDAP 2018-04-18 Completed [facility] 00:00:00 [facility] TDAP 2018-04-18 Completed [facility] 00:00:00 [facility] TDAP 2018-04-18 Completed [facility] 00:00:00 [facility] TDAP 2018-04-18 Completed [facility] 00:00:00 [facility] TDAP 2018-04-18 Completed [facility] 00:00:00 [facility] TDAP 2018-04-18 Completed [facility] 00:00:00 [facility] TDAP 2018-04-18 Completed [facility] 00:00:00 [facility] TDAP 2018-04-18 Completed [facility] 00:00:00 [facility] TDAP 2018-04-18 Completed [facility] 00:00:00 [facility] TDAP 2018-04-18 Completed [facility] 00:00:00 [facility] TDAP 2018-04-18 Completed [facility] 00:00:00 [facility] TDAP 2018-04-18 Completed [facility] 00:00:00 [facility] TDAP 2018-04-18 Completed [facility] 00:00:00 [facility] TDAP 2018-04-18 Completed [facility] 00:00:00 [facility] TDAP 2018-04-18 Completed [facility] 00:00:00 [facility] TDAP 2018-04-18 Completed [facility] 00:00:00 [facility] TDAP 2018-04-18 Completed [facility] 00:00:00 [facility] TDAP 2018-04-18 Completed [facility] 00:00:00 [facility] TDAP 2018-04-18 Completed [facility] 00:00:00 [facility] TDAP 2018-04-18 Completed [facility] 00:00:00 [facility] TDAP 2018-04-18 Completed [facility] 00:00:00 [facility] TDAP 2018-04-18 Completed [facility] 00:00:00 [facility] TDAP 2018-04-18 Completed [facility] 00:00:00 [facility] TDAP 2018-04-18 Completed [facility] 00:00:00 [facility] TDAP 2018-04-18 Completed [facility] 00:00:00 [facility] TDAP 2018-04-18 Completed [facility] 00:00:00 [facility] TDAP 2018-04-18 Completed [facility] 00:00:00 [facility] TDAP 2018-04-18 Completed [facility] 00:00:00 [facility] TDAP 2018-04-18 Completed [facility] 00:00:00 [facility] TDAP 2018-04-18 Completed [facility] 00:00:00 [facility] TDAP 2018-04-18 Completed [facility] 00:00:00 [facility] TDAP 2018-04-18 Completed [facility] 00:00:00 [facility] TDAP 2018-04-18 Completed [facility] 00:00:00 [facility] TDAP 2018-04-18 Completed [facility] 00:00:00 [facility] TDAP 2018-04-18 Completed [facility] 00:00:00 [facility] TDAP 2018-04-18 Completed [facility] 00:00:00 [facility] TDAP 2018-04-18 Completed [facility] 00:00:00 [facility] TDAP 2018-04-18 Completed [facility] 00:00:00 [facility] TDAP 2018-04-18 Completed [facility] 00:00:00 [facility] TDAP 2018-04-18 Completed [facility] 00:00:00 [facility] TDAP 2018-04-18 Completed [facility] 00:00:00 [facility] TDAP 2018-04-18 Completed [facility] 00:00:00 [facility] TDAP 2018-04-18 Completed [facility] 00:00:00 [facility] TDAP 2018-04-18 Completed [facility] 00:00:00 [facility] TDAP 2018-04-18 Completed [facility] 00:00:00 [facility] TDAP 2018-04-18 Completed [facility] 00:00:00 [facility] TDAP 2018-04-18 Completed [facility] 00:00:00 [facility] TDAP 2018-04-18 Completed [facility] 00:00:00 [facility] TDAP 2018-04-18 Completed [facility] 00:00:00 [facility] TDAP 2018-04-18 Completed [facility] 00:00:00 [facility] TDAP 2018-04-18 Completed [facility] 00:00:00 [facility] TDAP 2018-04-18 Completed [facility] 00:00:00 [facility] TDAP 2018-04-18 Completed [facility] 00:00:00 [facility] TDAP 2018-04-18 Completed [facility] 00:00:00 [facility] TDAP 2018-04-18 Completed [facility] 00:00:00 [facility] TDAP 2018-04-18 Completed [facility] 00:00:00 [facility] TDAP 2018-04-18 Completed [facility] 00:00:00 [facility] TDAP 2018-04-18 Completed [facility] 00:00:00 [facility] TDAP 2018-04-18 Completed [facility] 00:00:00 [facility] TDAP 2018-04-18 Completed [facility] 00:00:00 [facility] TDAP 2018-04-18 Completed [facility] 00:00:00 [facility] TDAP 2018-04-18 Completed [facility] 00:00:00 [facility] TDAP 2018-04-18 Completed [facility] 00:00:00 [facility] TDAP 2018-04-18 Completed [facility] 00:00:00 [facility] TDAP 2018-04-18 Completed [facility] 00:00:00 [facility] TDAP 2018-04-18 Completed [facility] 00:00:00 [facility] TDAP 2018-04-18 Completed [facility] 00:00:00 [facility] TDAP 2018-04-18 Completed [facility] 00:00:00 [facility] TDAP 2018-04-18 Completed [facility] 00:00:00 [facility] TDAP 2018-04-18 Completed [facility] 00:00:00 [facility] TDAP 2018-04-18 Completed [facility] 00:00:00 [facility] TDAP 2018-04-18 Completed [facility] 00:00:00 [facility] Tdap 2018-04-18 Completed [facility] 00:00:00 [facility] Tdap 2018-04-18 Completed [facility] 00:00:00 [facility] Tdap 2018-04-18 Completed [facility] 00:00:00 [facility] Tdap 2018-04-18 Completed [facility] 00:00:00 [facility] Tdap 2018-04-18 Completed [facility] 00:00:00 [facility] Tdap 2018-04-18 Completed [facility] 00:00:00 [facility] Tdap 2018-04-18 Completed [facility] 00:00:00 [facility] Tdap 2018-04-18 Completed [facility] 00:00:00 [facility] Tdap 2018-04-18 Completed [facility] 00:00:00 [facility] Tdap 2018-04-18 Completed [facility] 00:00:00 [facility] Tdap 2018-04-18 Completed [facility] 00:00:00 [facility] Tdap 2018-04-18 Completed [facility] 00:00:00 [facility] Tdap 2018-04-18 Completed [facility] 00:00:00 [facility] Tdap 2018-04-18 Completed [facility] 00:00:00 [facility] Tdap 2018-04-18 Completed [facility] 00:00:00 [facility] Tdap 2018-04-18 Completed [facility] 00:00:00 [facility] Tdap 2018-04-18 Completed [facility] 00:00:00 [facility] Tdap 2018-04-18 Completed [facility] 00:00:00 [facility] Vital Signs Vital Name Observation Time Observation Value Comments Source Systolic blood 2022-12-23 06:00:00 115 mm[Hg] Univer sity of pressure [facility] Diastolic blood 2022-12-23 06:00:00 77 mm[Hg] Unive rsity of [facility] Heart rate 2022-12-23 06:00:00 64 /min [facility] Respiratory rate 2022-12-23 06:00:00 16 /min [facility] Oxygen saturation in 2022-12-23 06:00:00 100 /min [facility] Arterial blood by [facility] Pulse oximetry Branch Body temperature 2022-12-23 05:20:00 36.33 Elida [facility] Body height 2022-12-23 05:20:00 167.6 cm [facility] Body weight 2022-12-23 05:20:00 80.876 kg [facility] BMI 2022-12-23 05:20:00 28.78 kg/m2 [facility] Systolic blood 2022-04-02 19:43:00 112 mm[Hg] Univer sity of pressure [facility] Diastolic blood 2022-04-02 19:43:00 73 mm[Hg] Unive rsity of pressure [facility] Heart rate 2022-04-02 19:43:00 78 /min [facility] Body temperature 2022-04-02 19:43:00 36.89 Elida [facility] Respiratory rate 2022-04-02 19:43:00 18 /min [facility] Body weight 2022-04-02 19:43:00 82.373 kg [facility] Systolic blood 2021-03-27 14:34:00 105 mm[Hg] Univer sity of pressure [facility] Diastolic blood 2021-03-27 14:34:00 68 mm[Hg] Unive rsity of pressure [facility] Heart rate 2021-03-27 14:34:00 130 /min [facility] Body temperature 2021-03-27 14:34:00 37.06 Elida [facility] Respiratory rate 2021-03-27 14:34:00 18 /min [facility] Body weight 2021-03-27 14:34:00 90.719 kg [facility] BMI 2021-03-27 14:34:00 32.28 kg/m2 [facility] Oxygen saturation in 2021-03-27 14:34:00 98 /min [facility] of Arterial blood by [place] [employer] [facility] Pulse oximetry [facility] Systolic blood 2021-03-27 14:34:00 105 mm[Hg] Univer sity of pressure [facility] Diastolic blood 2021-03-27 14:34:00 68 mm[Hg] Unive rsity of pressure [facility] Heart rate 2021-03-27 14:34:00 130 /min [facility] Body temperature 2021-03-27 14:34:00 37.06 Elida [facility] Respiratory rate 2021-03-27 14:34:00 18 /min [facility] Body weight 2021-03-27 14:34:00 90.719 kg [facility] BMI 2021-03-27 14:34:00 32.28 kg/m2 [facility] Oxygen saturation in 2021-03-27 14:34:00 98 /min [facility]ial blood by [facility] Systolic blood 2021-03-25 21:06:00 112 mm[Hg] Univer sity of pressure [facility] Diastolic blood 2021-03-25 21:06:00 65 mm[Hg] Unive rsity of pressure [facility] Heart rate 2021-03-25 21:06:00 106 /min [facility] Body temperature 2021-03-25 21:06:00 37.17 Elida [facility] Respiratory rate 2021-03-25 21:06:00 16 /min [facility] Body height 2021-03-25 21:06:00 167.6 cm [facility] Body weight 2021-03-25 21:06:00 88.996 kg [facility] BMI 2021-03-25 21:06:00 31.67 kg/m2 [facility] Systolic blood 2021-03-25 21:06:00 112 mm[Hg] Univer sity of pressure [facility] Diastolic blood 2021-03-25 21:06:00 65 mm[Hg] Unive rsity of pressure [facility] Heart rate 2021-03-25 21:06:00 106 /min [facility] Body temperature 2021-03-25 21:06:00 37.17 Elida [facility] Respiratory rate 2021-03-25 21:06:00 16 /min [facility] Body height 2021-03-25 21:06:00 167.6 [...] 2021-03-16 04:35:00 37.17 Elida [facility] Respiratory rate 2021-03-16 04:35:00 16 /min [facility] Oxygen saturation in 2021-03-16 04:35:00 98 /min [facility] of Arterial blood by [facility] Pulse oximetry Branch Body height 2021-03-16 03:51:00 167.6 cm [facility] Body weight 2021-03-16 03:51:00 86.183 kg [facility] BMI 2021-03-16 03:51:00 30.67 kg/m2 [facility] Systolic blood 2021-03-16 04:35:00 113 mm[Hg] Univer sity of pressure [facility] Diastolic blood 2021-03-16 04:35:00 58 mm[Hg] Unive rsity of pressure [facility] Heart rate 2021-03-16 04:35:00 93 /min [facility] Body temperature 2021-03-16 04:35:00 37.17 Elida [facility] Respiratory rate 2021-03-16 04:35:00 16 /min [facility] Oxygen saturation in 2021-03-16 04:35:00 98 /min [facility] of Arterial blood by [facility] Body height 2021-03-16 03:51:00 167.6 cm [facility] Body weight 2021-03-16 03:51:00 86.183 kg [facility] BMI 2021-03-16 03:51:00 30.67 kg/m2 [facility] Systolic blood 2021-03-04 18:24:00 117 mm[Hg] [facility] Diastolic blood 2021-03-04 18:24:00 73 mm[Hg] [facility] Heart rate 2021-03-04 18:24:00 99 /min [facility] Body temperature 2021-03-04 18:24:00 36.72 Elida [facility] Respiratory rate 2021-03-04 18:24:00 16 /min [facility] Body height 2021-03-04 18:24:00 167.6 cm [facility] Body weight 2021-03-04 18:24:00 88.111 kg [facility] BMI 2021-03-04 18:24:00 31.35 kg/m2 [facility] Systolic blood 2021-03-04 18:24:00 117 mm[Hg] [facility] Diastolic blood 2021-03-04 18:24:00 73 mm[Hg] [facility] Heart rate 2021-03-04 18:24:00 99 /min [facility] Body temperature 2021-03-04 18:24:00 36.72 Elida [facility] Respiratory rate 2021-03-04 18:24:00 16 /min [facility] Body height 2021-03-04 18:24:00 167.6 cm [facility] Body weight 2021-03-04 18:24:00 88.111 kg [facility] BMI 2021-03-04 18:24:00 31.35 kg/m2 [facility] Systolic blood 2021-02-18 18:54:00 118 mm[Hg] [facility] Diastolic blood 2021-02-18 18:54:00 72 mm[Hg] [facility] Heart rate 2021-02-18 18:54:00 86 /min [facility] Body temperature 2021-02-18 18:54:00 36.44 Elida [facility] Respiratory rate 2021-02-18 18:54:00 16 /min [facility] Body height 2021-02-18 18:54:00 167.6 [...] 2021-02-18 18:54:00 36.44 Elida [facility] Respiratory rate 2021-02-18 18:54:00 16 /min [facility] Body height 2021-02-18 18:54:00 167.6 cm [facility] Body weight 2021-02-18 18:54:00 88.905 kg [facility] BMI 2021-02-18 18:54:00 31.64 kg/m2 [facility] Systolic blood 2021-02-11 18:38:00 105 mm[Hg] [facility] Diastolic blood 2021-02-11 18:38:00 61 mm[Hg] [facility] Heart rate 2021-02-11 18:38:00 82 /min [facility] Body temperature 2021-02-11 18:38:00 36.67 Elida [facility] Respiratory rate 2021-02-11 18:38:00 16 /min [facility] Body height 2021-02-11 18:38:00 167.6 cm [facility] Body weight 2021-02-11 18:38:00 89.903 kg [facility] BMI 2021-02-11 18:38:00 31.99 kg/m2 [facility] Systolic blood 2021-02-04 18:18:00 110 mm[Hg] [facility] Diastolic blood 2021-02-04 18:18:00 61 mm[Hg] [facility] Heart rate 2021-02-04 18:18:00 85 /min [facility] Body temperature 2021-02-04 18:18:00 37.39 Elida [facility] Respiratory rate 2021-02-04 18:18:00 16 /min [facility] Body height 2021-02-04 18:18:00 167.6 cm [facility] Body weight 2021-02-04 18:18:00 90.447 kg [facility] BMI 2021-02-04 18:18:00 32.18 kg/m2 [facility] Systolic blood 2021-01-28 18:26:00 115 [...] 2021-01-28 18:26:00 89.529 kg [facility] BMI 2021-01-28 18:26:00 31.86 kg/m2 [facility] Systolic blood 2021-01-22 18:50:00 110 mm[Hg] [facility] Diastolic blood 2021-01-22 18:50:00 63 mm[Hg] [facility] Heart rate 2021-01-22 18:50:00 74 /min [facility] Body temperature 2021-01-22 18:50:00 37.28 Elida [facility] Respiratory rate 2021-01-22 18:50:00 16 /min [facility] Body height 2021-01-22 18:50:00 167.6 [...] 2021-01-15 18:58:00 16 /min [facility] Body height 2021-01-15 18:58:00 167.6 cm [facility] Body weight 2021-01-15 18:58:00 89.177 kg [facility] BMI 2021-01-15 18:58:00 31.73 kg/m2 [facility] Systolic blood 2021-01-07 19:01:00 97 mm[Hg] [facility] Diastolic blood 2021-01-07 19:01:00 67 mm[Hg] [facility] Heart rate 2021-01-07 19:01:00 83 /min [facility] Body temperature 2021-01-07 19:01:00 36.83 Elida [facility] Respiratory rate 2021-01-07 19:01:00 16 /min [facility] Body height 2021-01-07 19:01:00 167.6 cm [facility] Body weight 2021-01-07 19:01:00 87.771 kg [facility] BMI 2021-01-07 19:01:00 31.23 kg/m2 [facility] Systolic blood 2021-01-01 18:17:00 111 mm[Hg] [facility] Diastolic blood 2021-01-01 18:17:00 55 mm[Hg] [facility] Heart rate 2021-01-01 18:17:00 103 /min [facility] Body temperature 2021-01-01 18:17:00 36.67 Elida [facility] Respiratory rate 2021-01-01 18:17:00 24 /min [facility] Body height 2021-01-01 18:17:00 167.6 cm [facility] Body weight 2021-01-01 18:17:00 88.225 kg [facility] BMI 2021-01-01 18:17:00 31.39 kg/m2 [facility] Systolic blood 2020-12-24 19:41:00 124 mm[Hg] [facility] Diastolic blood 2020-12-24 19:41:00 77 mm[Hg] [facility] Heart rate 2020-12-24 19:41:00 93 /min [facility] Body temperature 2020-12-24 19:41:00 36.67 Elida [facility] Respiratory rate 2020-12-24 19:41:00 16 /min [facility] Body height 2020-12-24 19:41:00 167.6 cm [facility] Body weight 2020-12-24 19:41:00 89.268 kg [facility] BMI 2020-12-24 19:41:00 31.76 kg/m2 [facility] Systolic blood 2020-12-19 00:29:00 105 mm[Hg] [facility] Diastolic blood 2020-12-19 00:29:00 42 mm[Hg] [facility] Heart rate 2020-12-19 00:29:00 65 /min [facility] Body temperature 2020-12-19 00:29:00 36.67 Elida [facility] Respiratory rate 2020-12-19 00:29:00 18 /min [facility] Body height 2020-12-19 00:29:00 167.6 cm [facility] Body weight 2020-12-19 00:29:00 88.905 kg [facility] BMI 2020-12-19 00:29:00 31.64 kg/m2 [facility] Systolic blood 2020-12-17 19:38:00 119 mm[Hg] [facility] Diastolic blood 2020-12-17 19:38:00 64 mm[Hg] [facility] Heart rate 2020-12-17 19:38:00 79 /min [facility] Body temperature 2020-12-17 19:38:00 36.56 Eldia [facility] Respiratory rate 2020-12-17 19:38:00 16 /min [facility] Body height 2020-12-17 19:38:00 167.6 cm [facility] Body weight 2020-12-17 19:38:00 89.449 kg [facility] BMI 2020-12-17 19:38:00 31.83 kg/m2 [facility] Systolic blood 2020-12-10 18:51:00 107 mm[Hg] [facility] Diastolic blood 2020-12-10 18:51:00 63 mm[Hg] [facility] Heart rate 2020-12-10 18:51:00 62 /min [facility] Body temperature 2020-12-10 18:51:00 36.78 Elida [facility] Respiratory rate 2020-12-10 18:51:00 16 /min [facility] Body height 2020-12-10 18:51:00 167.6 cm [facility] Body weight 2020-12-10 18:51:00 87.232 kg [facility] BMI 2020-12-10 18:51:00 31.04 kg/m2 [facility] Systolic blood 2020-12-03 16:08:00 108 mm[Hg] [facility] Diastolic blood 2020-12-03 16:08:00 63 mm[Hg] [facility] Heart rate 2020-12-03 16:08:00 90 /min [facility] Body temperature 2020-12-03 16:08:00 36.61 Elida [facility] Respiratory rate 2020-12-03 16:08:00 18 /min [facility] Body height 2020-12-03 16:08:00 167.6 cm [facility] Body weight 2020-12-03 16:08:00 88.179 kg [facility] BMI 2020-12-03 16:08:00 31.38 kg/m2 [facility] Systolic blood 2020-11-26 18:13:00 108 [...] 2020-11-12 18:58:00 167.6 cm [facility] Body weight 2020-11-12 18:58:00 88.622 kg [facility] BMI 2020-11-12 18:58:00 31.53 kg/m2 [facility] Systolic blood 2020-10-15 20:07:00 109 mm[Hg] [facility] Diastolic blood 2020-10-15 20:07:00 70 mm[Hg] [facility] Heart rate 2020-10-15 20:07:00 74 /min [facility] Body temperature 2020-10-15 20:07:00 36.72 Elida [facility] Respiratory rate 2020-10-15 20:07:00 16 /min [facility] Body height 2020-10-15 20:07:00 167.6 cm [facility] Body weight 2020-10-15 20:07:00 84.823 kg [facility] BMI 2020-10-15 20:07:00 30.18 kg/m2 [facility] Systolic blood 2020-09-17 21:57:00 103 mm[Hg] [facility] Diastolic blood 2020-09-17 21:57:00 62 mm[Hg] [facility] Heart rate 2020-09-17 21:57:00 73 /min [facility] Body temperature 2020-09-17 21:57:00 37.11 Elida [facility] Respiratory rate 2020-09-17 21:57:00 16 /min [facility] Body height 2020-09-17 21:57:00 167.6 cm [facility] Body weight 2020-09-17 21:57:00 85.531 kg [facility] BMI 2020-09-17 21:57:00 30.43 kg/m2 [facility] Systolic blood 2020-08-20 19:03:00 119 mm[Hg] [facility] Diastolic blood 2020-08-20 19:03:00 82 mm[Hg] [facility] Heart rate 2020-08-20 19:03:00 79 /min [facility] Body temperature 2020-08-20 19:03:00 36.72 Elida [facility] Respiratory rate 2020-08-20 19:03:00 16 /min [facility] Body height 2020-08-20 19:03:00 167.6 cm [facility] Body weight 2020-08-20 19:03:00 87.204 kg [facility] BMI 2020-08-20 19:03:00 31.03 kg/m2 [facility] Systolic blood 2020-06-04 20:48:00 124 mm[Hg] [facility] Diastolic blood 2020-06-04 20:48:00 62 mm[Hg] [facility] Heart rate 2020-06-04 20:48:00 90 /min [facility] Body temperature 2020-06-04 20:48:00 36.17 Elida [facility] Respiratory rate 2020-06-04 20:48:00 16 /min [facility] Body height 2020-06-04 20:48:00 167.6 cm [facility] Body weight 2020-06-04 20:48:00 85.276 kg [facility] BMI 2020-06-04 20:48:00 30.34 kg/m2 [facility] Systolic blood 2020-04-01 21:05:00 130 mm[Hg] [facility] Diastolic blood 2020-04-01 21:05:00 74 mm[Hg] [facility] Heart rate 2020-04-01 21:05:00 95 /min [facility] Body temperature 2020-04-01 21:05:00 37.5 Elida [facility] Respiratory rate 2020-04-01 21:05:00 16 /min [facility] Body height 2020-04-01 21:05:00 167.6 cm [facility] Body weight 2020-04-01 21:05:00 86.75 kg [facility] BMI 2020-04-01 21:05:00 30.87 kg/m2 [facility] Systolic blood 2020-03-22 05:00:00 105 mm[Hg] [facility] Diastolic blood 2020-03-22 05:00:00 72 mm[Hg] [facility] Heart rate 2020-03-22 05:00:00 67 /min [facility] Respiratory rate 2020-03-22 05:00:00 18 /min [facility] Oxygen saturation in 2020-03-22 04:00:00 99 /min [facility] [place] [employer] [facility] Body temperature 2020-03-22 03:49:00 37 Elida [facility] Body height 2020-03-22 03:49:00 167.6 cm [facility] Body weight 2020-03-22 03:49:00 86.183 kg [facility] BMI 2020-03-22 03:49:00 30.67 kg/m2 [facility] Systolic blood 2020-02-26 23:57:00 110 mm[Hg] [facility] Diastolic blood 2020-02-26 23:57:00 78 mm[Hg] [facility] Heart rate 2020-02-26 23:57:00 87 /min [facility] Respiratory rate 2020-02-26 23:57:00 18 /min [facility] Oxygen saturation in 2020-02-26 23:57:00 100 /min [facility] [employer] [facility] Body temperature 2020-02-26 21:35:00 37 Elida [facility] Body weight 2020-02-26 21:35:00 86.183 kg [facility] Systolic blood 2019-10-05 21:05:00 129 mm[Hg] [facility] Diastolic blood 2019-10-05 21:05:00 57 mm[Hg] [facility] Heart rate 2019-10-05 21:05:00 100 /min [facility] Body temperature 2019-10-05 21:05:00 36.56 Elida [facility] Respiratory rate 2019-10-05 21:05:00 16 /min [facility] Body height 2019-10-05 21:05:00 167.6 cm [facility] Body weight 2019-10-05 21:05:00 86.694 kg [facility] BMI 2019-10-05 21:05:00 30.85 kg/m2 [facility] Systolic blood 2019-09-20 20:30:00 118 mm[Hg] [facility] Diastolic blood 2019-09-20 20:30:00 65 mm[Hg] [facility] Heart rate 2019-09-20 20:30:00 87 /min [facility] Body temperature 2019-09-20 20:30:00 36.28 Elida [facility] Respiratory rate 2019-09-20 20:30:00 18 /min [facility] Body height 2019-09-20 20:30:00 167.6 cm [facility] Body weight 2019-09-20 20:30:00 87.176 kg [facility] BMI 2019-09-20 20:30:00 31.02 kg/m2 [facility] Systolic blood 2019-09-18 20:23:00 123 mm[Hg] [facility] Diastolic blood 2019-09-18 20:23:00 61 mm[Hg] [facility] Heart rate 2019-09-18 20:23:00 73 /min [facility] Body temperature 2019-09-18 20:23:00 36.61 Elida [facility] Respiratory rate 2019-09-18 20:23:00 16 /min [facility] Body height 2019-09-18 20:23:00 167.6 cm [facility] Body weight 2019-09-18 20:23:00 86.24 kg [facility] BMI 2019-09-18 20:23:00 30.69 kg/m2 [facility] Systolic blood 2019-04-24 15:56:00 99 mm[Hg] [facility] Diastolic blood 2019-04-24 15:56:00 61 mm[Hg] [facility] Heart rate 2019-04-24 15:56:00 70 /min [facility] Body temperature 2019-04-24 15:56:00 36.72 Elida [facility] Respiratory rate 2019-04-24 15:56:00 16 /min [facility] Body weight 2019-04-24 15:56:00 84 kg [facility] BMI 2019-04-24 15:56:00 29.89 kg/m2 [facility] Systolic blood 2019-04-17 18:14:00 117 mm[Hg] [facility] Diastolic blood 2019-04-17 18:14:00 61 mm[Hg] [facility] Heart rate 2019-04-17 18:14:00 74 /min [facility] Body temperature 2019-04-17 18:14:00 36.56 Elida [facility] Respiratory rate 2019-04-17 18:14:00 16 /min [facility] Body height 2019-04-17 18:14:00 167.6 cm [facility] Body weight 2019-04-17 18:14:00 83.632 kg [facility] BMI 2019-04-17 18:14:00 29.76 kg/m2 [facility] Heart rate 2019-04-19 01:15:00 92 /min [facility] Oxygen saturation in 2019-04-19 01:15:00 99 /min [facility] Arterial blood by [facility] Systolic blood 2019-04-19 00:43:00 112 mm[Hg] [facility] Diastolic blood 2019-04-19 00:43:00 66 mm[Hg] [facility] Body temperature 2019-04-19 00:43:00 36.94 Elida [facility] Respiratory rate 2019-04-19 00:43:00 18 /min [facility] Body height 2019-04-19 00:43:00 167.6 cm [facility] Body weight 2019-04-19 00:43:00 83.462 kg [facility] BMI 2019-04-19 00:43:00 29.70 kg/m2 [facility] Systolic blood 2019-04-14 06:50:00 116 mm[Hg] [facility] Diastolic blood 2019-04-14 06:50:00 65 mm[Hg] [facility] Heart rate 2019-04-14 06:50:00 90 /min [facility] Body temperature 2019-04-14 06:50:00 36.61 Elida [facility] Respiratory rate 2019-04-14 06:50:00 18 /min [facility] Body height 2019-04-14 06:50:00 167.6 cm [facility] Body weight 2019-04-14 06:50:00 83.008 kg [facility] BMI 2019-04-14 06:50:00 29.54 kg/m2 [facility] Oxygen saturation in 2019-04-14 06:50:00 100 /min [facility] blood by [facility] Systolic blood 2019-04-10 19:21:00 114 mm[Hg] [facility] Diastolic blood 2019-04-10 19:21:00 57 mm[Hg] [facility] Heart rate 2019-04-10 19:21:00 93 /min [facility] Body temperature 2019-04-10 19:21:00 36.78 Elida [facility] Respiratory rate 2019-04-10 19:21:00 16 /min [facility] Body height 2019-04-10 19:21:00 167.6 cm [facility] Body weight 2019-04-10 19:21:00 83.178 kg [facility] BMI 2019-04-10 19:21:00 29.60 kg/m2 [facility] Systolic blood 2019-04-03 16:55:00 117 mm[Hg] [facility] Diastolic blood 2019-04-03 16:55:00 65 mm[Hg] [facility] Heart rate 2019-04-03 16:55:00 79 /min [facility] Body temperature 2019-04-03 16:55:00 36.56 Elida [facility] Respiratory rate 2019-04-03 16:55:00 16 /min [facility] Body height 2019-04-03 16:55:00 167.6 cm [facility] Body weight 2019-04-03 16:55:00 83.178 kg [facility] BMI 2019-04-03 16:55:00 29.60 kg/m2 [facility] Systolic blood 2019-03-29 18:46:00 131 mm[Hg] [facility] Diastolic blood 2019-03-29 18:46:00 77 mm[Hg] [facility] Heart rate 2019-03-29 18:46:00 94 /min [facility] Body temperature 2019-03-29 18:46:00 37.11 Elida [facility] Respiratory rate 2019-03-29 18:46:00 16 /min [facility] Body height 2019-03-29 18:46:00 167.6 cm [facility] Body weight 2019-03-29 18:46:00 82.781 kg [facility] BMI 2019-03-29 18:46:00 29.46 kg/m2 [facility] Systolic blood 2019-03-27 15:18:00 109 mm[Hg] [facility] Diastolic blood 2019-03-27 15:18:00 56 mm[Hg] [facility] Heart rate 2019-03-27 15:18:00 83 /min [facility] Body temperature 2019-03-27 15:18:00 36.28 Elida [facility] Respiratory rate 2019-03-27 15:18:00 16 /min [facility] Body height 2019-03-27 15:18:00 167.6 cm [facility] Body weight 2019-03-27 15:18:00 83.122 kg [facility] BMI 2019-03-27 15:18:00 29.58 kg/m2 [facility] Systolic blood 2019-03-20 15:42:00 116 mm[Hg] [facility] Diastolic blood 2019-03-20 15:42:00 55 mm[Hg] [facility] Heart rate 2019-03-20 15:42:00 76 /min [facility] Body temperature 2019-03-20 15:42:00 36.11 Elida [facility] Respiratory rate 2019-03-20 15:42:00 16 /min [facility] Body height 2019-03-20 15:42:00 167.6 cm [facility] Body weight 2019-03-20 15:42:00 83.235 kg [facility] BMI 2019-03-20 15:42:00 29.62 kg/m2 [facility] Systolic blood 2019-03-20 15:12:00 116 mm[Hg] [facility] Diastolic blood 2019-03-20 15:12:00 55 mm[Hg] [facility] Heart rate 2019-03-20 15:12:00 76 /min [facility] Body temperature 2019-03-20 15:12:00 36.11 Elida [facility] Respiratory rate 2019-03-20 15:12:00 16 /min [facility] Body height 2019-03-20 15:12:00 167.6 cm [facility] Body weight 2019-03-20 15:12:00 83.235 kg [facility] BMI 2019-03-20 15:12:00 29.62 kg/m2 [facility] Systolic blood 2019-03-15 14:57:00 112 mm[Hg] [facility] Diastolic blood 2019-03-15 14:57:00 59 mm[Hg] [facility] Heart rate 2019-03-15 14:57:00 66 /min [facility] Body temperature 2019-03-15 14:57:00 36.39 Elida [facility] Respiratory rate 2019-03-15 14:57:00 18 /min [facility] Body height 2019-03-15 14:57:00 167.6 cm [facility] Body weight 2019-03-15 14:57:00 84.482 kg [facility] BMI 2019-03-15 14:57:00 30.06 kg/m2 [facility] Systolic blood 2019-03-13 14:51:00 122 mm[Hg] Univer [facility] Diastolic blood 2019-03-13 14:51:00 65 mm[Hg] Unive rsity [facility] Heart rate 2019-03-13 14:51:00 90 /min [facility] Body temperature 2019-03-13 14:51:00 36.39 Elida [facility] Respiratory rate 2019-03-13 14:51:00 16 /min [facility] Body height 2019-03-13 14:51:00 167.6 cm [facility] Body weight 2019-03-13 14:51:00 83.519 kg [facility] BMI 2019-03-13 14:51:00 29.72 kg/m2 [facility] Systolic blood 2019-03-06 14:12:00 112 mm[Hg] [facility]iver [facility] Diastolic blood 2019-03-06 14:12:00 52 mm[Hg] Unive rsity of [facility] Heart rate 2019-03-06 14:12:00 83 /min [facility] Body temperature 2019-03-06 14:12:00 36.72 Elida [facility] Respiratory rate 2019-03-06 14:12:00 16 /min [facility] Body height 2019-03-06 14:12:00 167.6 cm [facility] Body weight 2019-03-06 14:12:00 83.632 kg [facility] BMI 2019-03-06 14:12:00 29.76 kg/m2 [facility] Systolic blood 2019-02-20 15:54:00 117 mm[Hg] Univer [facility] Diastolic blood 2019-02-20 15:54:00 76 mm[Hg] [facility] Heart rate 2019-02-20 15:54:00 83 /min [facility] Body temperature 2019-02-20 15:54:00 36.39 Elida [facility] Respiratory rate 2019-02-20 15:54:00 16 /min [facility] Body height 2019-02-20 15:54:00 167.6 cm [facility] Body weight 2019-02-20 15:54:00 81.364 kg [facility] BMI 2019-02-20 15:54:00 28.95 kg/m2 [facility] Procedures Procedure Date / Time Performing Clinician Source Performed POCT TEST 2022-12-23 05:31:00 Samir Baird [facility] LIPASE 2022-12-23 05:30:00 Samir Baird [facility] COMP. METABOLIC PANEL 2022-12-23 05:30:00 Samir Baird [facility] ([id number]) [facility] CBC WITH DIFF 2022-12-23 05:30:00 Samir Baird [facility] URINALYSIS 2022-12-23 05:30:00 Samir Baird [facility] CONSENT/REFUSAL FOR 2022-12-23 05:12:14 Doctor Maritza, [facility] DIAGNOSIS AND TREATMENT [facility] POCT TEST 2022-04-02 19:44:00 Molina Pavon [facility] ASSIGNMENT OF BENEFITS 2022-04-02 19:12:09 [facility]ana[facility] CONSENT/REFUSAL FOR 2021-03-27 14:24:33 Doctor Maritza, [facility] DIAGNOSIS AND TREATMENT [facility] WOUND CULTURE 2021-03-25 22:12:00 Marilu Doran [facility] CBC WITH DIFF 2021-03-25 21:07:00 Marilu Doran [facility] GROUP B STREPTOCOCCUS BY 2021-03-25 21:07:00 Marilu Doran [facility] PCR [facility] SARS-COV-2 IGG 2021-03-25 21:07:00 Marilu Doran [facility] LAB ONLY COVID 2021-03-25 21:07:00 Marilu Doran [facility] INTERPRETATION [facility] NOTICE OF PRIVACY 2021-03-16 02:55:00 Doctor Unassigned, [facility] CONSENT/REFUSAL FOR 2021-03-16 02:54:44 Doctor Unassigned, [facility] DIAGNOSIS AND TREATMENT [facility] POCT URINALYSIS 2021-03-04 18:26:00 Molina Pavon [facility] POCT URINALYSIS 2021-02-18 18:55:00 Molina Pavon [facility] POCT URINALYSIS 2021-02-04 18:19:00 Molina Pavon [facility] HB ABO GROUPING 2021-01-28 18:45:00 Molina Pavon [facility] TDAP VACCINE, >11 YRS, IM 2021-01-28 18:41:00 Molina Pavon [facility] POCT URINALYSIS 2021-01-28 18:28:00 Molina Pavon [facility] HIV 1/2 AG-AB WITH REFLEX 2021-01-28 18:21:00 Molina Pavon [facility] GALV ONLY - SYPHILIS 2021-01-28 18:21:00 [facility] I[facility]IGM [facility] GLUCOSE 1 HOUR POST 2021-01-15 20:04:00 Molina Pavon Uni [facility] CBC WITH DIFF 2021-01-15 20:04:00 Molina Pavon [facility] POCT URINALYSIS 2021-01-07 19:04:00 Molina Pavon [facility] CONSENT/REFUSAL FOR 2020-12-18 23:48:00 Doctor Unassigned, [facility] DIAGNOSIS AND TREATMENT [facility] POCT URINALYSIS 2020-12-10 19:37:00 Molina Pavon [facility] POCT URINALYSIS 2020-11-12 18:59:00 Molina Pavon [facility] POCT URINALYSIS 2020-10-15 20:09:00 Molina Pavon [facility] MEDICATION CORRESPONDENCE 2020-10-09 06:01:00 Doctor Unassigned, [facility] EXTERNAL PROVIDER RECORDS 2020-09-29 06:01:00 Doctor Unassigned, [facility] POCT URINALYSIS 2020-09-17 22:04:00 Molina Pavon [facility] GC & CHLAMYDIA AMPLIFIED 2020-08-20 20:23:00 Molina Pavon [facility] ASSAY [facility] GLUCOSE 1 HOUR POST 2020-08-20 20:06:00 Molina Pavon [facility] CBC WITH DIFF 2020-08-20 20:06:00 Molina Pavon [facility] RUBELLA SCREEN IGG 2020-08-20 20:06:00 Molina Pavon [facility] VZV ANTIBODY SCREEN 2020-08-20 20:06:00 Molina Pavon [facility] HEPATITIS B SURFACE 2020-08-20 20:06:00 Molina Pavon [facility] HB ABO GROUPING 2020-08-20 20:06:00 Molina Pavon [facility] HIV 1/2 AG-AB WITH REFLEX 2020-08-20 20:06:00 Molina Pavon [facility] GALV ONLY - SYPHILIS 2020-08-20 20:06:00 Molina Pavon [facility] IGG/IGM [facility] SARS-COV-2 IGG 2020-08-20 20:06:00 Molina Pavon [facility] LAB ONLY COVID 2020-08-20 20:06:00 Molina Pavon [facility] INTERPRETATION [facility] POCT TEST 2020-08-20 18:57:00 Molina Pavon [facility] POCT URINALYSIS W/O 2020-08-20 18:57:00 Molina Pavon Uni [facility] SPECIFIC GRAVITY [facility] FLU VACC ([id number]), 6+ 2020-06-04 20:53:58 Molina Pavon [facility] MONTHS, IM, QUAD [facility] [place] POCT TEST 2020-03-22 04:03:00 Lenin Samaniego [facility] COMP. METABOLIC PANEL 2020-03-22 04:02:00 Lenin Samaniego [facility] ([id number]) [facility] [place] CBC WITH DIFF 2020-03-22 04:02:00 Aden Lenin [facility] URINALYSIS 2020-03-22 04:02:00 Aden Lenin [place] o [facility] CONSENT/REFUSAL FOR 2020-03-22 03:39:54 Doctor Unassigned, [facility] DIAGNOSIS AND TREATMENT [facility] US PELVIS COMPLETE WITH 2020-02-26 22:53:36 Evangelist Bonner [facility] TRANSVAGINAL [facility] COMP. METABOLIC PANEL 2020-02-26 22:12:00 Evangelist Bonner [facility] ([id number]) [facility] [place] CBC WITH DIFF 2020-02-26 22:12:00 Evangelist Bonner [facility] URINALYSIS 2020-02-26 22:12:00 Evangelist [facility] POCT TEST 2020-02-26 22:12:00 Evangelist Bonner [facility] ASSIGNMENT OF BENEFITS 2020-02-26 21:29:30 Doctor Unassigned, [facility] POCT TEST 2019-10-05 21:24:00 Molina Pavon [facility] DISCLOSURE AND CONSENT, 2019-10-05 06:01:00 Doctor Unassigned, U [facility] MEDICAL AND SURGICAL [facility] n[facility] PROCEDURES POCT TEST 2019-09-20 20:34:00 Molina Pavon [facility] GARDASIL 9 (HPV 9V) 2019-09-18 21:05:38 Molina Pavon [facility] VACCINE [facility] ASSIGNMENT OF BENEFITS 2019-04-19 00:26:57 Doctor Unassigned, Un [facility] NOTICE OF PRIVACY 2019-04-19 00:26:18 Doctor Unassnora, [facility] CONSENT/REFUSAL FOR 2019-04-19 00:25:59 Doctor Maritza, [facility] DIAGNOSIS AND TREATMENT [facility] URINE CULTURE 2019-04-17 18:50:00 Molina Pavon [facility] ANTI-D R/O PANEL 2019-04-17 18:46:00 Molina Pavon [facility] WORKUP, BLOOD 2019-04-17 18:46:00 Molina Pavon [facility] POCT URINALYSIS 2019-04-17 18:15:00 Molina Pavon [facility] ASSIGNMENT OF BENEFITS 2019-04-14 06:35:28 Doctor Unassigned, Un [facility] NOTICE OF PRIVACY 2019-04-14 06:34:52 Doctor Maritza, [facility] GALV ONLY - SYPHILIS 2019-03-29 20:14:00 Marilu Doran [facility] IGG/IGM [facility] HIV 1/2 AG-AB WITH REFLEX 2019-03-29 19:53:00 Marilu Doran [facility] TDAP VACCINE, >11 YRS, IM 2019-03-29 19:23:41 Marilu Doran [facility] POCT URINALYSIS 2019-03-29 18:46:00 Molina Pavon [facility] POCT URINALYSIS 2019-03-15 14:59:00 Molina Pavon [facility] Encounters Start End Encounter Admission Attending Care Care Encounter Source Date/Time Date/Time Type Type Clinicians Facility Department ID 2021-06-08 Emergency [facility] [id number] Univers 16:54:[address] [facility] 2021-06-08 Emergency [facility] [id number] Univers 13:57:[address] [facility] 2021-06-07 Outpatient P [facility] [id number] Univers 19:02:[address] [facility] 2021-06-07 Outpatient P [facility] [id number] Univers 19:01:[address] [facility] 2021-06-05 Emergency [facility] [id number] Univers 12:38:[address] [facility] 2021-06-05 Emergency [facility] [id number] Univers 08:01:[address] [facility] 2023-01-14 2023-01-14 Outpatient R GILIKE [facility] [id number] Univers 10:45:00 10:45:00 ISE, ity [facility] 2022-12-24 2022-12-24 Outpatient ZBIGNIEW [facility] [id number] [facility] 07:39:00 07:39:00 Renu 09 [facility] 2022-12-23 2022-12-23 Emergency X [facility] ERT [id number] Univers 00:21:00 01:49:[address] [facility] 2022-12-23 2022-12-23 Emergency [facility] [id number] Univers 00:21:00 01:49:00 Samir VILLA 350.1.13.10 ity of [place] 4.2.7.2.686 [facility] [id number] [facility] 084 Branch 2022-12-23 2022-12-23 Orders Doctor MORAN 1.2.840.114 [id number] Univers 00:00:00 00:00:00 Only Unassigned, JANNA 350.1.13.10 ity of [place] [facility] 4.2.7.2.686 Man [id number] [facility] 009 Branch 2022-04-08 2022-04-08 Outpatient R [facility] [id number] Univers 13:45:00 13:45:[address] [facility] 2022-04-02 2022-04-02 Nurse Visit, Daryn-Rmchp Nurse [facility] 1.2 .840.114 [id number] Univers 13:30:00 13:45:00 Visit Molina Pavon PATCH PRESS OPERATOR 350.1.13. 10 ity [facility] acute hospital 4.2.7.2.686 Man as MATERNAL [id number] [facility] ical & CHILD [address] [place] [address] 2022-04-02 2022-04-02 [facility] [id number] Univers 13:30:00 13:30:00 MOLINA caraballo o f [facility] 2022-04-02 2022-04-02 Orders Doctor LUISA 1.2.840.114 [id number] Univers 00:00:00 00:00:00 Only UnassJANNA melendez 350.1.13.10 ity [facility] 4.2.7.2.686 Man as [id number] [facility] [address] [place] 2021-05-28 2021-05-28 Outpatient R [facility] [id number] Univers 13:45:00 13:45:[address] [facility] 2021-05-19 2021-05-19 [facility] [id number] Univers 09:15:00 09:15:[address] [facility] 2021-04-14 2021-04-14 Telephone Gonzalez MORAN 1.2.840.114 [id number] Univers 00:00:00 00:00:00 JANNA leyva 350.1.13.10 it y of [facility] 4.2.7.2.686 [place] [id number] [facility] 013 Branch 2021-04-07 2021-04-09 Inpatient P IVAN [facility] [id number] Univers 21:59:00 13:51:00 HERON it[facility] 2021-04-07 2021-04-09 Hospital LUISA [place] 1.2.840.114 [id number] Univers 21:59:00 13:51:00 Encounter Heron Saba JANNA 350.1.13.10 ity [facility] 4.2.7.2.686 Man as [id number] [facility] 134 Branch 2021-04-09 2021-04-09 Out[facility] [id number] Univers 13:00:00 13:00:[address] [facility] 2021-04-07 2021-04-08 Anesthesia Wyatt Cool 1.2.840 .114 [id number] Univers 22:51:00 06:50:00 Event Colby-Alessandro Blackwell 350 .[facility].13.10 [facility] 4.2.7.2.686 Man as [id number] [facility] 132 [place] 2021-04-01 2021-04-01 Outpatient R [facility] [id number] Univers 08:45:00 08:45:[address] [facility] 2021-03-29 2021-03-29 Telephone [facility] 1.2.840.114 [id number] Univers 00:00:00 00:00:00 Molina Kearney PATCH PRESS OPERATOR 350.1.13.10 [facility] 4.2.7.2.686 Man as MATERNAL [id number] Med ical & CHILD [address] [place] [address] 2021-03-27 2021-03-27 Emergency [facility] 1.2.504.013 [id number] 09:34:00 10:19:00 Miah Villa 350.1.13.10 [place] 4.2.7.2.686 [place] [id number] [facility] 2021-03-27 2021-03-27 Emergency [facility] 1.2.896.204 [id number] Univers 09:34:00 10:19:00 Miah Villa 350.1.13.10 i ty of [place] 4.2.7.2.686 [place] [facility] [id number] [place] 497884 [place] 2021-03-27 2021-03-27 Orders Doctor MORAN 1.2.840.114 [id number] 00:00:00 00:00:00 Only Unassigned, JANNA 350.1.13.10 [facility] 4.2.7.2.686 [id number] 2021-03-27 2021-03-27 Orders Doctor LUISA 1.2.840.114 [id number] Univers 00:00:00 00:00:00 Only Unassigned, JANNA 350.1.13.10 ity of [facility] 4.2.7.2.686 Man as [id number] [address] 2021-03-25 2021-03-25 Routine Risk, Xta-Zmdeo-Vk/High [facility] 1. 2.840.114 [id number] Univers 15:32:35 16:37:00 Marilu Doran PATCH PRESS OPERATOR 350.1.13.10 ity of Visit [facility] 4.2.7.2.686 Man as MATERNAL [id number] [facility] ical & CHILD [address] [place] [address] 2021-03-25 2021-03-25 Routine Risk, Ylp-Ecupc-Bj/High [facility] 1. 2.840.114 [id number] Univers 15:32:35 16:37:00 Marilu Doran PATCH PRESS OPERATOR 350.1.13.10 ity of Visit [facility] 4.2.7.2.686 Man as MATERNAL [id number] [facility] ical & CHILD [address] [place] [address] 2021-03-25 2021-03-25 Outpatient R [facility] [id number] Univers 15:30:00 15:30:[address] [facility] 2021-03-18 2021-03-18 [facility] [id number] Univers 13:30:00 13:30:00 MOLINA caraballo o f [facility] 2021-03-15 2021-03-16 Emergency [facility] 1.2.840.114 [id number] 22:55:00 00:07:00 Cholo Saba [place] 350.1.13.10 [place] 4.2.7.2.686 [place] [id number] 2021-03-15 2021-03-16 Emergency [facility] 1.2.840.114 [id number] Univers 22:55:00 00:07:00 Fanio Jayant [place] 350.1.13.10 ity of [place] 4.2.7.2.686 [facility] [place] [id number] [address] 2021-03-11 2021-03-11 Outpatient R [facility] [id number] Univers 13:30:00 13:30:00 ity [facility] 2021-03-04 2021-03-04 Routine Akinsipe, [facility] 1.2.676.362 [id number] 13:16:42 13:49:49 Molina C PATCH PRESS OPERATOR 350.1.13.10 Visit REGIONAL 4.2.7.2.686 MATERNAL [id number] & CHILD [address] [place] [address] 2021-03-04 2021-03-04 Routine Akinsipe, [facility] 1.2.448.484 [id number] Univers 13:16:42 13:49:49 Molina C PATCH PRESS OPERATOR 350.1.13.10 ity of Visit REGIONAL 4.2.7.2.686 Man as MATERNAL [id number] Med ical & CHILD [address] [place] [address] 2021-03-04 2021-03-04 [facility] [id number] Univers 13:15:00 13:15:00 MOLINA ity o f [facility] 2021-03-02 2021-03-02 Outpatient R [facility] [id number] Univers 14:30:00 14:30:00 ity [facility] 2021-02-25 2021-02-25 Outpatient R [facility] [id number] Univers 12:45:00 12:45:00 ity [facility] 2021-02-18 2021-02-18 Routine Akinsipe, [facility] 1.2.005.829 [id number] 13:28:35 14:29:08 Molina C PATCH PRESS OPERATOR 350.1.13.10 Visit REGIONAL 4.2.7.2.686 MATERNAL [id number] & CHILD [address] [place] [address] 2021-02-18 2021-02-18 Routine Akinsipe, [facility] 1.2.533.931 [id number] Univers 13:28:35 14:29:08 Molina C PATCH PRESS OPERATOR 350.1.13.10 ity of Visit REGIONAL 4.2.7.2.686 Man as MATERNAL [id number] [facility] & [address] 2021-02-18 2021-02-18 [facility]patient [facility] [id number] Univers 13:15:00 13:15:00 MOLINADAISY caraballo o [facility] 2021-02-11 2021-02-11 Outpatient [facility] [id number] Univers 15:45:00 15:45:00 MOLINA caraballo o [facility] 2021-02-11 2021-02-11 Nurse Visit, [facility] Nurse [facility] 1.2 .840.114 [id number] Univers 13:10:22 13:25:22 Visit Molina Pavon C PATCH PRESS OPERATOR 350.1.13. 10 ity of REGIONAL 4.2.7.2.686 Man as MATERNAL [id number] [address] 2021-02-11 2021-02-11 Outpatient R [facility] [id number] Univers 08:30:00 08:30:00 ity [facility] 2021-02-04 2021-02-04 Routine Akinzoraida, [facility] 1.2.567.547 [id number] Univers 12:50:04 13:47:28 Molina C PATCH PRESS OPERATOR 350.1.13.10 ity of Visit REGIONAL 4.2.7.2.686 Man as MATERNAL [id number] [facility] & [address] 2021-02-04 2021-02-04 Outpatient R [facility] [id number] Univers 12:45:00 12:45:00 ity [facility] 2021-01-28 2021-01-28 Routine Akinsipe, [facility] 1.2.789.010 [id number] Univers 13:07:23 14:00:04 Molina C PATCH PRESS OPERATOR 350.1.13.10 ity of Visit REGIONAL 4.2.7.2.686 Man as MATERNAL [id number] [facility] [address] [place] [address] 2021-01-28 2021-01-28 Outpatient R LIBRADO [facility] [id number] Univers 13:00:00 13:00:[address] [facility] 2021-01-22 2021-01-22 Nurse Visit, Arvind Nurse [facility] 1.2 .840.114 [id number] Univers 13:32:06 13:56:46 Visit Molina Pavon PATCH PRESS OPERATOR 350.1.13. 10 ity of [facility] 4.2.7.2.686 Man as MATERNAL [id number] [facility] & CHILD [address] [place] [address] 2021-01-22 2021-01-22 Outpatient R [facility] [id number] Univers 13:30:00 13:30:00 ity [facility] 2021-01-16 2021-01-16 Telephone Librado [facility] 1.2.840.114 [id number] Univers 00:00:00 00:00:00 Molina Kearney PATCH PRESS OPERATOR 350.1.13.10 ity of REGIONAL 4.2.7.2.686 Man as MATERNAL [id number] [facility] & [address] 2021-01-15 2021-01-15 Nurse Visit, Arvind Nurse [facility] 1.2 .840.114 [id number] Univers 13:44:54 14:08:48 Visit Molina Pavon PATCH PRESS OPERATOR 350.1.13. 10 ity of [facility] 4.2.7.2.686 Man as MATERNAL [id number] [facility] [address] [place] [address] 2021-01-15 2021-01-15 Outpatient R LIBRADO [facility] [id number] Univers 13:30:00 13:30:[address] [facility] 2021-01-14 2021-01-14 Outpatient R [facility] [id number] Univers 09:00:00 09:00:00 ity [facility] 2021-01-14 2021-01-14 Telephone Librado VTMARANDA 1.2.840.114 [id number] Univers 00:00:00 00:00:00 Molina C PATCH PRESS OPERATOR 350.1.13.10 ity of REGIONAL 4.2.7.2.686 Man as MATERNAL [id number] [facility] CH[facility] [address] [place] [address] 2021-01-07 2021-01-07 Routine Pamelazoraida [facility] 1.2.297.398 [id number] Univers 13:50:51 14:21:33 Molina C PATCH PRESS OPERATOR 350.1.13.10 ity of Visit REGIONAL 4.2.7.2.686 Man as MATERNAL [id number] [facility] & CHILD [address] [place] [address] 2021-01-07 2021-01-07 Outpatient R LIBRADO [facility] [id number] Univers 14:00:00 14:00:00 MOLINA ity o f [facility] 2021-01-01 2021-01-01 Nurse Visit, Arvind Nurse [facility] 1.2 .840.114 [id number] Univers 13:08:36 13:37:19 Visit Maged Pavonola C PATCH PRESS OPERATOR 350.1.13. 10 ity of REGIONAL 4.2.7.2.686 Man as MATERNAL [id number] [address] 2021-01-01 2021-01-01 Outpatient R [facility] [id number] Univers 13:30:00 13:30:00 ity [facility] 2020-12-31 2020-12-31 Outpatient R [facility] [id number] Univers 13:30:00 13:30:00 ity [facility] 2020-12-24 2020-12-24 Nurse Visit, Arvind Nurse [facility] 1.2 .840.114 [id number] Univers 14:21:35 14:59:58 Visit Molina Pavon C PATCH PRESS OPERATOR 350.1.13. 10 ity of REGIONAL 4.2.7.2.686 Man as MATERNAL [id number] [facility] CH[facility] [address] [place] [address] 2020-12-24 2020-12-24 Outpatient R [facility] [id number] Univers 13:00:00 13:00:[address] [facility] 2020-12-18 2020-12-18 Hospital Evangelist Clark [facility] 1.2.840.114 [id number] Univers 18:50:00 20:20:00 Encounter [place] 350.1.13.10 ity of [place] 4.2.7.2.686 [place] [id number] [facility] [address] [place] 2020-12-18 2020-12-18 Telephone Librado [facility] 1.2.840.114 [id number] Univers 00:00:00 00:00:00 Molina Kearney PATCH PRESS OPERATOR 350.1.13.10 ity of [facility] 4.2.7.2.686 Man as MATERNAL [id number] [facility] ical & CHILD [address] [place] [address] 2020-12-18 2020-12-18 Orders Doctor LUISA 1.2.840.114 [id number] Univers 00:00:00 00:00:00 Only Unassigned, JANNA 350.1.13.10 ity of [place] [facility] 4.2.7.2.686 Man as [id number] [facility] [address] [place] 2020-12-17 2020-12-17 Nurse Visit, Arvind Nurse [facility] 1.2 .840.114 [id number] Univers 13:44:33 14:05:24 Visit Molina Pavon PATCH PRESS OPERATOR 350.1.13. 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 2020-12-17 2020-12-17 Abstract [facility] [id number] Univers 00:00:00 00:00:00 Molina C PATCH PRESS OPERATOR [id number] ity of REGIONAL [id number] Mna as MATERNAL [id number] [facility] & CHILD [address] [place] [address] 2020-12-10 2020-12-10 [facility] [id number] Univers 13:44:46 14:32:39 Molina C PATCH PRESS OPERATOR [id number] ity of Visit REGIONAL [id number] Man as MATERNAL [id number] [facility] & CHILD [address] [place] [address] 2020-12-10 2020-12-10 Outpatient R [facility] [id number] Univers 14:15:00 14:15:00 MOLINA ity o f [facility] 2020-12-10 2020-12-10 Dry Cleaning Teacher Ultrasound, [facility] 1.2 .840.114 [id number] Univers 13:01:03 13:31:03 Visit Gerardo Pettit PATCH PRESS OPERATOR 350.1.13.10 ity of Clara Petit [facility] 4.2.7.2.686 [place] MATERNAL [phone] [facility] & CHILD [address] [place] [address] 2020-12-03 2020-12-03 Dry Cleaning Teacher Ultrasound, [facility] 1.2 .840.114 [id number] Univers 10:42:41 12:12:49 Visit Gerardo Pettit PATCH PRESS OPERATOR 350.1.13.10 ity of [place] Petit [facility] 4.2.7.2.686 [place] MATERNAL [phone] [facility] & CHILD [address] [place] [address] 2020-12-03 2020-12-03 Outpatient P LILO [facility] [id number] Univers 10:45:00 10:45:00 GERARDO caraballo [facility] 2020-12-03 2020-12-03 Nurse Visit, Arvind Nurse [facility] 1.2 .840.114 [id number] Univers 10:22:01 10:42:50 Visit Molina Pavon PATCH PRESS OPERATOR 350.1.13. 10 ity of REGIONAL 4.2.7.2.686 Man as MATERNAL [phone] [facility] [address] [place] [address] 2020-12-03 2020-12-03 Abstract Librado VTMARANDA 1.2.840.114 [id number] Univers 00:00:00 00:00:00 Molina Kearney PATCH PRESS OPERATOR 350.1.13.10 ity of REGIONAL 4.2.7.2.686 Man as MATERNAL [phone] [facility] [address] [place] [address] 2020-11-26 2020-11-26 Dry Cleaning Teacher Ultrasound, Nathan [facility] 1.2 .840.114 [id number] Univers 13:20:09 13:50:09 Visit Gerardo Pettit PATCH PRESS OPERATOR 350.1.13.10 ity of REGIONAL 4.2.7.2.686 Man as MATERNAL [phone] [facility] ical & CHILD [address] [facility] 2020-11-26 2020-11-26 Nurse Visit, Arvind Nurse [facility] 1.2 .840.114 [id number] [facility] 12:53:08 13:19:50 Visit Molina Pavon PATCH PRESS OPERATOR 350.1.13. 10 ity of REGIONAL 4.2.7.2.686 Man as MATERNAL [phone] [facility] ical & CHILD [address] [place] [address] 2020-11-26 2020-11-26 Outpatient R ELODIA PAVON [facility] [id number] Univers 12:45:00 12:45:00 MOLINA [address] o f [facility] 2020-11-26 2020-11-26 Abstract Librado VTMARANDA 1.2.840.114 [id number] Univers 00:00:00 00:00:00 Molina Kearney PATCH PRESS OPERATOR 350.1.13.10 ity of REGIONAL 4.2.7.2.686 Man as MATERNAL [phone] Med ical & CHILD 107 [facility] 2020-11-19 2020-11-19 Nurse Visit, Daryn-Rmchp Nurse [facility] 1.2 .840.114 [id number] Univers 13:24:06 13:52:49 Visit Molina Pavon PATCH PRESS OPERATOR 350.1.13. 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 2020-11-19 2020-11-19 Abstract Librado [facility] 1.2.840.114 [id number] Univers 00:00:00 00:00:00 Molina C PATCH PRESS OPERATOR 350.1.13.10 ity of REGIONAL 4.2.7.2.686 Man as MATERNAL [phone] [facility] ical & CHILD [address] [place] [address] 2020-11-14 2020-11-14 Abstract Librado [facility] 1.2.840.114 [id number] Univers 00:00:00 00:00:00 Molina C PATCH PRESS OPERATOR 350.1.13.10 ity of REGIONAL 4.2.7.2.686 Man as MATERNAL [phone] [facility] ical & CHILD [address] [place] [address] 2020-11-12 2020-11-12 Routine Librado [facility] 1.2.882.371 [id number] Univers 13:46:03 15:02:34 Molina C PATCH PRESS OPERATOR 350.1.13.10 ity of Visit [facility] 4.2.7.2.686 Man as MATERNAL [phone] Med ical & CHILD 107 [facility] 2020-11-12 2020-11-12 Outpatient R LIBRADO [facility] [id number] Univers 14:00:00 14:00:00 MOLINA [address]ab[address] o f [facility] 2020-11-12 2020-11-12 Dry Cleaning Teacher Ultrasound, [facility] 1.2 .840.114 [id number] Univers 13:12:59 13:42:59 Visit Gerardo Pettit PATCH PRESS OPERATOR 350.1.13.10 [facility] 4.2.7.2 .686 [place] MATERNAL [phone] [facility] [address] [facility] 2020-11-05 2020-11-05 Dry Cleaning Teacher Ultrasound, [facility] 1.2 .840.114 [id number] Univers 12:57:18 13:27:18 Visit Gerardo Pettit PATCH PRESS OPERATOR 350.1.13.10 ity General acute hospital 4.2.7.2.686 Man as MATERNAL [phone] [facility] & CHILD [address] [place] [address] 2020-11-05 2020-11-05 Outpatient P [facility] [id number] Univers 13:00:00 13:00:[address] [facility] 2020-11-05 2020-11-05 Abstract [facility] 1.2.840.114 [id number] Univers 00:00:00 00:00:00 Molina Kearney PATCH PRESS OPERATOR 350.1.13.10 ity General acute hospital 4.2.7.2.686 Man as MATERNAL [phone] [facility] & CHILD [address] [place] [address] 2020-10-28 2020-10-28 Patient Damaso [facility] 1.2.840.114 [id number] Univers 00:00:00 00:00:00 Outreach Rigo KOHLI 350.1.13.10 i ty of [facility] 4.2.7.2.[place] [phone] [address] 2020-10-15 2020-10-15 Routine [facility] 1.2.339.268 [id number] Univers 13:53:52 14:39:37 Molina C PATCH PRESS OPERATOR 350.1.13.10 ity of Visit [facility]IONAL 4.2.7.2.686 Man as MATERNAL [phone] [facility] ical & CHILD [address] [place] [address] 2020-10-15 2020-10-15 Outpatient R LIBRADO [facility] [id number] Univers 14:00:00 14:00:00 M[address]INA ity o f 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 840.114 [id number] Univers 15:03:35 15:48:35 Visit Fátima Carson PATCH PRESS OPERATOR 350.1. 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 114 [id number] Univers 15:03:49 15:43:00 Visit Tennille Humphrey PATCH PRESS OPERATOR 350.1.13. 10 ity of [facility] 4.2.7.2.686 Man as MATERNAL [phone] [facility] ical & CHILD 125 [facility] 2020-10-08 2020-10-08 Outpatient P [facility] [id number] Univers 14:00:00 14:00:[address] [facility] 2020-10-06 2020-10-06 Telephone [facility] 1.2.840.114 [id number] Univers 00:00:00 00:00:00 Molina C PATCH PRESS OPERATOR 350.1.13.10 ity of [facility] 4.2.7.2.686 Man as MATERNAL [phone] [facility] [address] [place] [address] 2020-09-29 2020-09-29 Orders Doctor MORAN 1.2.840.114 [id number] Univers 00:00:00 00:00:00 Only Unassigned, JANNA 350.1.13.10 ity of [place] [facility] 4.2.7.2.686 Man as [phone] [address] 2020-09-25 2020-09-25 Telephone [facility] 1.2.840.114 [id number] Univers 00:00:00 00:00:00 Molina C PATCH PRESS OPERATOR 350.1.13.10 ity of [facility] 4.2.7.2.686 Man as MATERNAL [phone] [address] 2020-09-24 2020-09-24 [facility] [id number] Univers 15:00:00 15:00:[address] o f [facility] 2020-09-18 2020-09-18 Telephone [facility] 1.2.840.114 [id number] Univers 00:00:00 00:00:00 Molina C PATCH PRESS OPERATOR 350.1.13.10 ity of [facility] 4.2.7.2.686 Man as MATERNAL [id number] [address] 2020-09-17 2020-09-17 Outpatient [facility] [id number] Univers 16:00:00 16:00:[address]INA [address]y o f [facility] 2020-09-17 2020-09-17 Routine [facility] 1.2.901.826 [id number] Univers 15:44:41 15:59:41 Molina C PATCH PRESS OPERATOR 350.1.13.10 ity of Visit [facility] 4.2.7.2.686 Man as MATERNAL [phone] [facility] & CHILD [address] [place] [address] 2020-08-20 2020-08-20 Initial [facility]idaAD[facility] 1.2.267.118 [id number] Univers 12:55:28 14:19:34 Molina C PATCH PRESS OPERATOR 350.1.13.10 ity of Visit REG[facility] 4.2.7.2.686 Man as MATERNAL [phone] [facility] [address] [place] [address] 2020-08-20 2020-08-20 Outpatient R [facility] [id number] Univers 12:45:00 12:45:[address] [facility] 2020-06-04 2020-06-04 [facility] 1.2.967.681 [id number] Univers 15:42:24 16:35:24 Visit [facility] C PATCH PRESS OPERATOR 350.1.13.10 ity of REGIONAL 4.2.7.2.686 Man as MATERNAL [phone] [facility] & CHILD [address] [place] [address] 2020-06-04 2020-06-04 [facility] [id number] Univers 16:00:00 16:00:00 M[address]INA ity o f [facility] 2020-04-01 2020-04-01 Office [facility] 1.2.840.114 [id number] Univers 15:55:34 16:41:33 Visit Bella R PATCH PRESS OPERATOR 350.1.13.10 ity of REGIONAL 4.2.7.2.686 Man as MATERNAL [id number] [facility] & CHILD [address] [place] [address] 2020-04-01 2020-04-01 Outpatient [facility] [id number] Univers 15:45:00 15:45:00 ROSHUNDA ity o f [facility] 2020-03-24 2020-03-24 Telephone Samaniego, TRAUMA 1.2.840.114 [id number] Univers 00:00:00 00:00:00 [facility] 350.1.13.10 [place] [phone] [facility] [address] 2020-03-21 2020-03-22 Emergency [facility] 1.2.840.114 [id number] Univers 22:44:00 01:28:00 Lnein Christina 350.1.13.10 i ty of [place]7.2.[place] [phone] [facility] [address] 2020-02-26 2020-02-26 Emergency [facility] 1.2.642.107 [id number] Univers 16:39:27 18:59:00 Evangelist Millard Christina 350.1.13.10 i ty [place] 4[place]2.7.2.[place] [phone] [facility] [address] 2020-02-26 2020-02-26 Orders Doctor MORAN 1.2.840.114 [id number] Univers 00:00:00 00:00:00 Only Unassigned, JANNA 350.1.13.10 [facility] 4.2.7.2.686 Man as [phone] [place] [address] [place] 2020-02-07 2020-02-07 [facility] [id number] Univers 13:00:00 13:00:[address] [facility] 2020-01-10 2020-01-10 Telephone [facility] 1.2.840.114 [id number] Univers 00:00:00 00:00:00 Molina Kearney PATCH PRESS OPERATOR 350.1.13.10 ity of [facility] 4.2.7.2.686 Man as MATERNAL [phone] [facility] ical & CHILD [address] [place] [address] 2020-01-07 2020-01-07 Out[facility] [id number] Univers 08:30:00 08:30:[address] [facility] 2019-12-12 2019-12-12 Telephone [facility] 1.2.840.114 [id number] Univers 00:00:00 00:00:00 Molina Kearney PATCH PRESS OPERATOR 350.1.13.10 ity General acute hospital 4.2.7.2.686 Man as MATERNAL [phone] [facility] [address] [place] [address] 2019-11-16 2019-11-16 Outpatient R LIBRADO [facility] [id number] Univers 15:00:00 15:00:[address] [facility] 2019-10-26 2019-10-26 Telephone [facility] 1.2.840.114 [id number] Univers 00:00:00 00:00:00 Molina Kearney PATCH PRESS OPERATOR 350.1.13.10 ity of [facility] 4.2.7.2.686 Man as MATERNAL [id number] [address] 2019-10-05 2019-10-05 Office Librado [facility] 1.2.684.136 [id number] Univers 14:55:55 15:52:08 Visit Molina Kearney PATCH PRESS OPERATOR 350.1.13.10 ity of [facility] 4.2.7.2.686 Man as MATERNAL [id number] [address] 2019-10-05 2019-10-05 Outpatient R LIBRADO [facility] [id number] Univers 15:00:00 15:00:[address] [facility] 2019-10-05 2019-10-05 Orders Doctor LUISA 1.2.840.114 [id number] Univers 00:00:00 00:00:00 Only Unassigned, JANNA 350.1.13.10 ity of [place] [facility] 4.2.7.2.686 Man as [id number] [address] 2019-09-20 2019-09-20 Office [facility] 1.2.239.180 [id number] Univers 14:11:23 15:38:56 Visit Molina Kearney PATCH PRESS OPERATOR 350.1.13.10 ity of [facility] 4.2.7.2.686 Man as MATERNAL [id number] [facility] [address] [place] [address] 2019-09-18 2019-09-18 Nurse Visit, [facility] Nurse [facility] 1.2 .840.114 [id number] Univers 14:05:15 14:49:01 Visit Molina Pavon PATCH PRESS OPERATOR 350.1.13. 10 ity of [facility] 4.2.7.2.686 Man as MATERNAL [phone] [facility] ical & CHILD [address] [place] [address] 2019-04-27 2019-04-27 Abstract Librado [facility] 1.2.840.114 [id number] Univers 00:00:00 00:00:00 Molina C PATCH PRESS OPERATOR 350.1.13.10 ity of [facility] 4.2.7.2.686 Man as MATERNAL [phone] [facility] ical & CHILD [address] [place] [address] 2019-04-24 2019-04-24 Nurse Visit, Arvind Nurse [place] 1.2 .840.114 [id number] Univers 10:40:27 11:05:53 Visit Alina PowersclarisaFátima PATCH PRESS OPERATOR 350.1. 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 13.10 ity of [facility] 4.2.7.2.686 Man as MATERNAL [phone] [facility] ical & CHILD [address] [facility] 2019-04-17 2019-04-24 Routine Librado [facility] 1.2.620.175 [id number] Univers 13:01:05 08:40:10 Molina C PATCH PRESS OPERATOR 350.1.13.10 ity of Visit [facility] 4.2.7.2.686 Man as MATERNAL [phone] [facility] ical & CHILD [address] [place] [address] 2019-04-18 2019-04-18 Hospital Bushra Conteh [facility] 1.2.840.114 [id number] Univers 19:24:00 20:30:00 Encounter Jess Friend 350.1.13.1 0 [place] of [place].2.[place] [phone] [address] 2019-04-14 2019-04-14 [facility] [place] 1.2.840.114 [id number] Univers 01:31:00 02:40:00 Encounter Jessreid [place] 350.1.13.10 ity of [place] 4.2.7.2.686 [facility] [phone] [address] 2019-04-10 2019-04-10 Nurse Visit, Ang-Rmchp Nurse [facility] 1.2 .840.114 [id number] [facility] 14:01:50 14:41:50 Visit Molina Pavon PATCH PRESS OPERATOR 350.1.13. 10 ity of [facility] 4.2.7.2.686 Man as MATERNAL [phone] [facility] ical & CHILD [address] [place] [address] 2019-04-03 2019-04-03 Nurse Visit, Arvind Nurse [facility] 1.2 .840.114 [id number] [facility] 11:47:37 12:00:15 Visit Molina Pavon PATCH PRESS OPERATOR 350.1.13. 10 ity of [facility] 4.2.7.2.686 Man as MATERNAL [id number] [facility] ical & CHILD [address] [place] [address] 2019-03-29 2019-03-29 Routine Risk, Vzt-Cgmft-Pb/High [facility] 1. 2.840.114 [id number] Univers 13:37:34 15:04:21 Marilu Doran PATCH PRESS OPERATOR 350.1.13.10 ity of Visit [facility]AL 4.2.7.2.686 Man as MATERNAL [phone] [facility] ical & CHILD [address] [place] [address] 2019-03-27 2019-03-27 Nurse Visit, Ang-Rmchp Nurse [facility] 1.2 .840.114 [id number] Univers 10:09:07 10:24:12 Visit Molina Pavon PATCH PRESS OPERATOR 350.1.13. 10 ity of [facility] 4.2.7.2.686 Man as MATERNAL [phone] [facility] ical & CHILD [address] [place] [address] 2019-03-20 2019-03-20 Routine Josef, [facility] 1.2.802.832 [id number] [facility] 10:34:37 11:11:26 Amanda N PATCH PRESS OPERATOR 350.1.13.10 i ty of Visit REGIONAL 4.2.7.2.686 Man as MATERNAL [phone] [facility] [address] [place] [address] 2019-03-20 2019-03-20 Nurse Visit, Arvind Nurse [facility] 1.2 .840.114 [id number] Univers 10:02:19 10:37:28 Visit Pamelaanazoraida Molina C PATCH PRESS OPERATOR 350.1.13. 10 ity of [facility] 4.2.7.2.686 Man as MATERNAL [phone] [facility] & [address] 2019-03-15 2019-03-15 Routine Faculty, Daryn Sewell [facility] 1.2 .840.114 [id number] [facility] 09:37:58 10:18:32 Librado Molina C PATCH PRESS OPERATOR 350.1.13 .10 ity of Visit [facility] 4.2.7.2.686 Man as MATERNAL [phone] [facility] & CHILD [address] [place] [address] 2019-03-13 2019-03-13 Nurse Visit, Prashanthnuvia Nurse [facility] 1.2 .840.114 [id number] Univers 09:35:59 10:07:45 Visit Pamelaanazoraida Molina C PATCH PRESS OPERATOR 350.1.13. 10 ity of [facility] 4.2.7.2.686 Man as MATERNAL [id number] [facility] & CHILD [address] [place] [address] 2019-03-06 2019-03-06 Nurse [facility], [facility] 1.2 .840.114 [id number] Univers 09:03:54 09:49:10 Visit Pamelasizoraida Molina C PATCH PRESS OPERATOR 350.1.13. 10 ity of [facility] 4.2.7.2.686 Man as MATERNAL [phone] [facility] & CHILD [address] [place] [address] 2019-02-20 2019-03-06 Routine Librado, [facility] 1.2.535.880 [id number] Univers 10:45:20 09:40:49 Molina C PATCH PRESS OPERATOR 350.1.13.10 ity of Visit [facility] 4.2.7.2.686 Man as MATERNAL [phone] [facility] ical & CHILD [address] [place] [address] Results Test Description Test Time Test Comments Results Result Comments Source SURGICAL SPECIMENS 2022-12-28 10:29:00 Test Item Value Reference Range Interpretation Comme nts SURGICAL RUN SPECIMENS DATE: 12/28/22 MARIAH encisowest - LAB PAGE 1 RUN TIME: 1029 Specimen Inquiry RUN USER: (test code INTERFACE = SURG) LARON NT: AMANUEL LOTT ACCDavidson #: [id number] LOC: ANAYELI U #: [id number] AGE/SX: 22/F ROOM: RE12/24/22GIANNI DR: Renu Galan MD : 00 BED: DIS: STATUS: COLLETTE MEEK TLOC: SPEC #: [id number] RECD: [id number] STATUS: RIANA VAN #: [id number] CHAD: 12/24/22-[address]: Renu Galan MD ENTERED: 0 12/24/22-1424 SP TYPE: SURG OTHR DR: No Primary or Family PhysicianORDERED: PATHGM3, P ATH SPEC, H E STAIN TISSUES: A. GALLBLADDER - Gallbladder CLINICAL HISTORY Diagnosis/Clinical D elyssa: Cholecystitis Operative Procedure: Laparoscopic cholecystectomy FINAL DIAGNOSIS Gallbladder, laparoscopic cholecystectomy: Chronic Cholecystitis Cholelithiasis Electronically signed by: Carolyn Humphrey MD GROSS DESCRIPTION Received in formalin labeled "gallbladder" is a 6.5 x 3.0 x 2.5 cm intact gallbladder. The cystic duct is patent at the margin. There is a 1.2 x 0.8 x 0.5 cm jose-pink, potential lymph node. The serosa is jose and smooth. The wall has an aver age thickness of 0.4 cm. The mucosa is jose-red and velvety. There are multiple jose-green, irregula r calculi ranging from 0.4-1.4 x 1.2 x 1.0 cm in greatest dimension. No masses are identified. Re presentative sections are submitted in A1. TR 12/24/2022 04:08 PM MICROSCOPIC DESCRIPTION Sect ions of the gallbladder show Rokitansky-Aschoff sinuses and benign lymph node. The muscular is propria of the gallbladder is hypertrophied. There is no neoplasia. ----- Signed SIGNATURE ON FILE Kim Humphrey 1029 END OF REPORT BASIC METABOLIC [id number] 09:28:00 Test Item Value Reference Range Interpretation Comments SODIUM (test code 137 mmol/L 135-145 N = NA) POTASSIUM (test 3.6 mmol/L 3.6-5.0 N code = K) CHLORIDE (test 103 mmol/L 101-111 N code = CL) CARBON DIOXIDE 25 mmol/L 21-31 N (test code = CO2) GLUCOSE (test code 89 mg/dl 70-100 N = GLU) BLOOD UREA 13 mg/dl 6-20 N NITROGEN (test code = BUN) GLOMERULAR >=60 max >60 The Glomerular FILTRATION RATE estimate Filtration R ate is a (test code = GFR) calculated parameterbased on serum Creatinin e, patient age and sex. GFR valuesless than 60 mL/min/1.73 square meters are nuvia cative ofChronic Kidne y Disease. Values less than 15 mL/min/1.73squa re meters indicate Kidney failure. The calculation for GFR is based on the CK D-EPI (2020) calculat ion. This formulais race indifferent and is the recommended formula for GFR by the National Kidney Foundation for Adults.The GFR will not calculate i f the sex is unknown or if thepatient's ag e is <18 years. CREATININE (test 0.80 mg/dL 0.44-1.03 N code = CREAT) CALCIUM (test code 9.9 mg/dL 8.5-10.5 N = CA) INDEX HEMOLYSIS 0 Index/DL See_Comment [Automated message] (test code = The system [employer] HEMINDEX) generated this result transmitted ref erence range: 1 NORMAL . The reference range was not used to int erpret this result as normal/abnormal . INDEX ICTERIC 1 Index/DL See_Comment [Automated me ssage] (test code = The system [employer] ICTINDEX) generated this result transmitted ref erence range: 1 NORMAL . The reference range was not used to int erpret this result as normal/abnormal . INDEX LIPEMIA 0 Index/DL See_Comment [Automated me ssage] (test code = The system [employer] LIPINDEX) generated this result transmitted ref erence range: 1 NORMAL . The reference range was not used to int erpret this result as normal/abnormal . HCG SERUM [id number] 09:03:00 Test Item Value Reference Range Interpretation Comments HCG SERUM QUAL NEGATIVE NEGATIVE This is a ani litative (test code = HCGQL) screenin g test.The quantitative Bh cg may be helpful.Weakly positive results should be repeated in 48 hours. CBC W/AUTO [id number] 08:47:00 Test Item Value Reference Range Interpretation Comments WHITE BLOOD CELL (test code = 5.9 x10 3/uL 3.2-11.5 N WBC) RED BLOOD CELL (test code = 4.56 x10(6)/m 3.70-5.10 N RBC) HEMOGLOBIN (test code = HGB) 12.1 g/dL 12.0-15.0 N HEMATOCRIT (test code = HCT) 38.1 % 35.7-44.8 N MEAN CELL VOLUME (test code = 84 fL 80-100 N MCV) MEAN CELL HGB (test code = MCH) 26.5 pg 26.2-33.8 N MEAN CELL HGB CONCENTRATION 31.8 g/dL 30.0-34.0 N (test code = MCHC) RED CELL DISTRIBUTION WIDTH 15.0 % 11.3-14.5 H (test code = RDW) PLATELET COUNT (test code = 311 x10 3/uL 130-408 N PLT) MEAN PLATELET VOLUME (test code 9.4 fL 8.6-12.6 N = MPV) NEUTROPHIL % (test code = NT%) 55.6 % 40.0-70.0 N LYMPHOCYTE % (test code = LY%) 31.8 % 20-40 N MONOCYTE % (test code = MO%) 8.5 % 1-10 N EOSINOPHIL % (test code = EO%) 2.9 % 0.0-5.0 N BASOPHIL % (test code = BA%) 0.9 % 0.0-1.0 N NUCLEATED RBC % (test code = 0.0 % 0.0-0.9 N NRBC%) NEUTROPHIL # (test code = NT#) 3.3 x10 3/uL 1.6-7.2 N LYMPHOCYTE # (test code = LY#) 1.87 x10 3/uL 1.1-2.7 N MONOCYTE # (test code = MO#) 0.5 x10 3/uL 0.3-0.8 N EOSINOPHIL # (test code = EO#) 0.2 x10 3/uL 0.0-0.5 N IMMATURE GRANULOCYTE % (test 0.3 % 0.0-2.0 N code = IG%) BASOPHIL # (test code = BA#) 0.1 x10 3/uL 0.0-0.1 N Complete Metabolic [id number] 05:54:09 Test Item Value Reference Range Interpretation Comments NA (test code = 141 mmol/L 135-145 5835756130) K (test code = 3.9 mmol/L 3.5-5.0 5576946282) CL (test code = 103 mmol/L 98-108 6531547423) CO2 TOTAL (test code 28 mmol/L 23-31 = 9568476954) AGAP (test code = 10 2-16 8612785873) BUN (test code = 13 mg/dL 7-23 6953783319) GLUCOSE (test code = 95 mg/dL 70-110 1219480552) CREATININE (test code 0.81 mg/dL 0.50-1.04 = 8320170848) TOTAL BILI (test code 0.3 mg/dL 0.1-1.1 = 8657892794) CALCIUM (test code = 9.3 mg/dL 8.6-10.6 0694408623) T PROTEIN (test code 8.0 g/dL 6.3-8.2 = 3946083495) ALBUMIN (test code = 4.9 g/dL 3.5-5.0 5089612509) ALK PHOS (test code = 38 U/L 34-122 6028480544) ALTv (test code = 17 U/L 5-35 1742-6) AST(SGOT) (test code 20 U/L 13-40 = 0215473491) eGFR (test code = 88.4 mL/min/1.73m2 9720493597) BRIDGET (test code = BRIDGET) Association of Glomerular Filtration Rate (GFR) and Staging of Kidney Disease* + + +- +| GFR (mL/min/1.73 m2) ?| With Kidney Damage ?| ?Without Kidney Damage+ ------+ ----+ ------+| ?>90 ?| ?Stage one ?| ? Normal ?+ -+ + -+| ?60-89 ?| ?Stage two ?| ? Decreased GFR ? + + +- +| ?30-59 ?| ?Stage three ?| ? Stage three ? + + +- +| ?15-29 ?| ?Stage four ? | ? Stage four ?+ -+ + -+| ?<15 (or dialysis) ? ?| ?Stage five ? | ? Stage five ?+ -+ + -+ *Each stage assumes the associated GFR level [...] or urine or abnormalities in imaging tests). [facility] Hospital[facility], [id number] 05:54:09 Test Item Value Reference Range Interpretation Comments LIPASE (test code = 3066700221) 170 U/L 0-220 Lab Interpretation (test code = Normal 92972-0) [facility] HospitalCB with [id number] 05:41:47 Test Item Value Reference Range Interpretation Comments WBC (test code = 5.83 See_Comment [Automated 8170-2) message] The sy stem which generated this result transmitted reference range : 4.30 - 11.10 10*3/?L. The reference range was not used to interpret this result as normal/abnormal . RBC (test code = 4.46 See_Comment [Automated 369-2) message] The sy stem which generated this result transmitted reference range : 3.93 - 5.25 10*6/?L. The reference range was not used to interpret this result as normal/abnormal . HGB (test code = 11.8 g/dL 11.6-15.0 718-7) HCT (test code = 37.1 % 35.7-45.2 4544-3) MCV (test code = 83.2 fL 80.6-95.5 787-2) MCH (test code = 26.5 pg 25.9-32.8 785-6) MCHC (test code = 31.8 g/dL 31.6-35.1 786-4) RDW-SD (test code = 45.6 fL 39.0-49.9 64544-8) RDW-CV (test code = 15.1 % 12.0-15.5 788-0) PLT (test code = 316 See_Comment [Automated 777-3) message] The sy stem which generated this result transmitted reference range : 166 - 358 10*3/ ?L. The reference r ian was not used to interpret this result as normal/abnormal . MPV (test code = 9.3 fL 9.5-12.9 L 08219-8) NRBC/100 WBC (test 0.0 See_Comment [Automat ed code = 7720287711) message] The system which generated this result transmitted reference range : 0.0 - 10.0 /100 WBCs. The refer ence range was not u sed to interpret th is result as normal/abnormal . NRBC x10^3 (test code See_Comment [Auto mated = 9442149011) message] The s ystem which generated this result transmitted reference range : 10*3/?L. The reference range was not used to interpret this result as normal/abnormal . GRAN MAT (NEUT) % 43.9 % (test code = 770-8) IMM GRAN % (test code 0.20 % = 2932463287) LYMPH % (test code = 40.7 % 736-9) MONO % (test code = 10.6 % 5905-5) EOS % (test code = 3.6 % 713-8) BASO % (test code = 1.0 % 706-2) GRAN MAT x10^3(ANC) 2.56 10*3/uL 1.88-7.09 (test code = 8466028512) IMM GRAN x10^3 (test 0.00-0.06 code = 3972998369) LYMPH x10^3 (test code 2.37 10*3/uL 1.32-3.29 = 731-0) MONO x10^3 (test code 0.62 10*3/uL 0.33-0.92 = 742-7) EOS x10^3 (test code = 0.21 10*3/uL 0.03-0.39 711-2) BASO x10^3 (test code 0.06 10*3/uL 0.01-0.07 = 704-7) Lab Interpretation Abnormal (test code = 27966-7) [facility] HospitalPOCT [id number] 05:31:00 Test Item Value Reference Range Interpretation Comments POCT PREG (test code = 1605) Negative On board controls acceptable with Yes C Line (test code = 3574) POCT PREG LOT # (test code = 3575) 111857 POCT PREG TEST DATE (test 2024-03-15 code = 3576) Lab Interpretation (test code = Normal 82174-4) [facility]PO[facility] [id number] 19:44:00 Test Item Value Reference Range Interpretation Comments POCT PREG (test code = 1605) Negative On board controls acceptable with C Yes Line (test code = 3574) POCT PREG LOT # (test code = 3575) POCT PREG TEST DATE (test code = 3576) [facility] HospitalGROUP B STREPTOCOCCUS BY [id number] 17:05:28 Test Item Value Reference Range Interpretation Comments Group B Streptococcus by PCR (test Positive Negative A code = 02667-3) Lab Interpretation (test code = Abnormal 45445-0) [facility] HospitalLAB ONLY COVID [id number] 21:22:56COVID DMT InterpretationInterpretation/Recommendation:Molecular NAAT Tests for Active Infection withthe SARS-CoV-2 Virus:This patient has not been currently tested at [facility] for an active infection withthe SARS-CoV-2 virus [...] COVID-19 testing the patient has had at [facility], including molecular NAAT testing (more commonly known as PCR testing and RapidID Now testing) and antibody testing. It does not take into account any testing that a patient has had outside of the [facility] medical record. [facility] LABORATORY SERVICESCOVID ResultsCoV-2 IgG (no units) ? ? Date ? Value ? 03/25/2021 ? Negative ? 08/20/2020 ? Negative ? ? ? [facility] LABORATORY SERVICESUnHarris [facility] System [facility] HospitalRS-COV-2 IGG 2021-03-26 05:50:07 Test Item Value Reference Range Interpretation Comments CoV-2 IgG (test code Negative Negative Negativ e result = 48403-0) does not rule o va acute SARS-CoV- 2 infection. Clinical correlation as well as molecul ar diagnostic test are recommended to rule out acu te infection if clinically indicated. BRIDGET (test code = BRIDGET) The CoV-2 antibody test should not be used for screening of donated blood. This test has been approved by FDA for emergency use. Lab Interpretation Normal (test code = 35225-6) [facility] WITH [id number] 05:04:06 Test Item Value Reference Range Interpretation [...] RDW-SD (test code = 39.3 fL 39.0-49.9 51035-6) RDW-CV (test code = 13.6 % 12.0-15.5 788-0) PLT (test code = See_Comment [Automated 777-3) message] The sy stem which generated this result transmitted reference range : 166 - 358 10*3/ ?L. The reference r ian was not used to interpret this result as normal/abnormal . MPV (test code = 9.4 fL 9.5-12.9 L 16407-9) NRBC/100 WBC (test See_Comment [Automat ed code = 5689697732) message] The system which generated this result transmitted reference range : 0.0 - 10.0 /100 WBCs. The refer ence range was not u sed to interpret th is result as normal/abnormal . NRBC x10^3 (test code <0.01 See_Comment [Auto mated = 1408782031) message] The s ystem which generated this result transmitted reference range : 10*3/?L. The reference range was not used to interpret this result as normal/abnormal . GRAN MAT (NEUT) % 74.5 % (test code = 770-8) IMM GRAN % (test code 0.70 % = 6324582589) LYMPH % (test code = 15.3 % 736-9) MONO % (test code = 8.8 % 5905-5) EOS % (test code = 0.5 % 713-8) BASO % (test code = 0.2 % 706-2) GRAN MAT x10^3(ANC) 6.09 10*3/uL 1.88-7.09 (test code = 6470231677) IMM GRAN x10^3 (test 0.06 10*3/uL 0.00-0.06 code = 2282803102) LYMPH x10^3 (test code 1.25 10*3/uL 1.32-3.29 L = 731-0) MONO x10^3 (test code 0.72 10*3/uL 0.33-0.92 = 742-7) EOS x10^3 (test code = 0.04 10*3/uL 0.03-0.39 711-2) BASO x10^3 (test code <0.03 0.01-0.07 = 704-7) Lab Interpretation Abnormal (test code = 20026-4) [facility] URINALYSIS W SPECIFIC [id number] 18:26:00 Test Item Value Reference Range Interpretation [...] POCT U APPEAR (test code = 3267) [facility] URINALYSIS W SPECIFIC [id number] 18:55:00 Test Item Value Reference Range Interpretation [...] POCT U APPEAR (test code = 3267) [facility] URINALYSIS W SPECIFIC [id number] 18:55:00 Test Item Value Reference Range Interpretation [...] POCT U APPEAR (test code = 3267) [facility] URINALYSIS W SPECIFIC [id number] 18:19:00 Test Item Value Reference Range Interpretation [...] POCT U APPEAR (test code = 3267) [facility] HospitalGALV ONLY - SYPHILIS [id number] 14:13:27 Test Item Value Reference Range Interpretation Comments Syphilis IgG/IgM (test Non-reactive Non-reactive code = 10734-0) BRIDGET (test code = BRIDGET) Non-reactive - No serologic evidence of T. pallidum infection. Cannot exclude incubating or early syphilis. Submit a second specimen in 2-4 weeks if syphilis is clinically suspected. Equivocal - Further testing to follow. Reactive - Further testing to follow. Lab Interpretation (test Normal code = 02302-7) [facility] HospitalHIV 1/2 AG-AB WITH [id number] 06:30:45 Test Item Value Reference Range Interpretation Comments HIV Negative Negative Semi-quantitative (test code = 23784-5) BRIDGET (test code = Non-reactive for HIV-1 BRIDGET) antigen and HIV-1/HIV-2 antibodies. ?No laboratory evidence of HIV infection. ?Repeat in 2-4 weeks if acute HIV infection is suspected. [facility] HospitalPrenatal Workup, Blood [id number] 04:17:21 Test Item Value Reference Range Interpretation Comments ABO & RH (test code B NEGATIVE Performe d at [facility] = 20) Laboratory Serv [facility] Blood Bank[address] [facility] s [id number] Free: [phone] A No. [id number] IAT (test code = Negative Performed a t [facility] 1185) Laboratory Serv [facility] Blood Bank[address] [facility] s [address]Qpxa Free: [phone] A No. [id number] [facility] HospitalPOCT URINALYSIS W SPECIFIC [id number] 18:28:00 Test Item Value Reference Range Interpretation [...] POCT U APPEAR (test code = 3267) [facility] HospitalGlucose 1 Hour Post [id number] 06:46:48 Test Item Value Reference Range Interpretation Comments GLUC 1 HR (test code = 7056980929) 106 mg/dL 120-170 L Lab Interpretation (test code = Abnormal 67156-9) [facility] with [id number] 05:55:05 Test Item Value Reference Range Interpretation Comments WBC (test code = See_Comment [Automated 1490-2) message] The sy stem which generated this result transmitted reference range : 4.30 - 11.10 10*3/?L. The reference range was not used to interpret this result as normal/abnormal . RBC (test code = See_Comment L [Automated 389-8) message] The sy stem which generated this [...] RDW-SD (test code = 42.4 fL 39.0-49.9 90650-6) RDW-CV (test code = 13.5 % 12.0-15.5 788-0) PLT (test code = See_Comment [Automated 777-3) message] The sy stem which generated this result transmitted reference range : 166 - 358 10*3/ ?L. The reference r ian was not used to interpret this result as normal/abnormal . MPV (test code = 9.8 fL 9.5-12.9 96228-0) NRBC/100 WBC (test See_Comment [Automat ed code = 5991122022) message] The system which generated this result transmitted reference range : 0.0 - 10.0 /100 WBCs. The refer ence range was not u sed to interpret th is result as normal/abnormal . NRBC x10^3 (test code <0.01 See_Comment [Auto mated = 9194861660) message] The s ystem which generated this result transmitted reference range : 10*3/?L. The reference range was not used to interpret this result as normal/abnormal . GRAN MAT (NEUT) % 77.2 % (test code = 770-8) IMM GRAN % (test code 0.40 % = 9718905695) LYMPH % (test code = 12.6 % 736-9) MONO % (test code = 8.2 % 5905-5) EOS % (test code = 1.2 % 713-8) BASO % (test code = 0.4 % 706-2) GRAN MAT x10^3(ANC) 6.19 10*3/uL 1.88-7.09 (test code = 4736643129) IMM GRAN x10^3 (test 0.03 10*3/uL 0.00-0.06 code = 5157373428) LYMPH x10^3 (test code 1.01 10*3/uL 1.32-3.29 L = 731-0) MONO x10^3 (test code 0.66 10*3/uL 0.33-0.92 = 742-7) EOS x10^3 (test code = 0.10 10*3/uL 0.03-0.39 711-2) BASO x10^3 (test code 0.03 10*3/uL 0.01-0.07 = 704-7) Lab Interpretation Abnormal (test code = 18729-3) [facility] URINALYSIS W SPECIFIC [id number] 19:05:00 Test Item Value Reference Range Interpretation [...] POCT U APPEAR (test code = 3267) [facility] URINALYSIS W SPECIFIC [id number] 19:05:00 Test Item Value Reference Range Interpretation [...] POCT U APPEAR (test code = 3267) [facility] URINALYSIS W SPECIFIC [id number] 19:37:00 Test Item Value Reference Range Interpretation [...] POCT U APPEAR (test code = 3267) [facility] URINALYSIS W SPECIFIC [id number] 18:59:00 Test Item Value Reference Range Interpretation [...] POCT U APPEAR (test code = 3267) [facility] URINALYSIS W SPECIFIC [id number] 18:59:00 Test Item Value Reference Range Interpretation [...] POCT U APPEAR (test code = 3267) [facility] URINALYSIS W SPECIFIC [id number] 20:09:00 Test Item Value Reference Range Interpretation [...] POCT U APPEAR (test code = 3267) [facility] URINALYSIS W SPECIFIC [id number] 22:04:00 Test Item Value Reference Range Interpretation [...] POCT U APPEAR (test code = 3267) [facility] COVID [id number] 22:28:00COVID DMT InterpretationInterpretation/Recommendation: Molecular NAAT Tests for [...] COVID-19 testing the patient has had at [facility], including molecular NAAT testing (more commonly known as PCR testing and Rapid ID Now testing) and antibody testing. It does not take into account any testing that a patient has had outside of the [facility] medical record. [facility] LABORATORY SERVICESCOVID ResultsCoV-2 IgG (no units) ? ? Date ? Value ? 08/20/2020 ? Negative ? ? ? [facility] LABORATORY SERVICESUnSt. [facility] CenterGC & CHLAMYDIA AMPLIFIED [id number] 19:13:00 Test Item Value Reference Range Interpretation Comments C. trachomatis Nucleic Negative Negative Acid (test code = 01623-4) N. gonorrhoeae Nucleic Negative Negative Acid (test code = 33053-2) BRIDGET (test code = BRIDGET) Reliable results [...] NAAT. Lab Interpretation Normal (test code = 45667-9) [facility] HospitalRUBELLA SCREEN (NICHOLAS) [id number] 18:20:00 Test Item Value Reference Range Interpretation Comments Rubella screen IgG Positive Negative (test code = 4383606299) BRIDGET (test code = BRIDGET) Positive - Indicates the patient was exposed to Rubella through infection or vaccination.Negative - Indicates the patient could be susceptible to Rubella infection.Equivocal - A second specimen should be sent. [facility] HospitalZV ANTIBODY [id number] 18:20:00 Test Item Value Reference Range Interpretation Comments VZV IgG antibody Positive Negative (test code = 57181-9) BRIDGET (test code = BRIDGET) Positive - Indicates the patient was exposed to VZV through infection or vaccination.Negative - Indicates the patient could be susceptible to VZV infection.Equivocal - A second specimen should be sent for testing. [facility] HospitalGAL ONLY - SYPHILIS [id number] 15:58:00 Test Item Value Reference Range Interpretation Comments Syphilis IgG/IgM (test Non-reactive Non-reactive code = 34295-1) BRIDGET (test code = BRIDGET) Non-reactive - No serologic evidence of T. pallidum infection. Cannot exclude incubating or early syphilis. Submit a second specimen in 2-4 weeks if syphilis is clinically suspected. Equivocal - Further testing to follow. Reactive - Further testing to follow. Lab Interpretation (test Normal code = 92948-8) [facility] HospitalHI 1/2 AG-AB WITH [id number] 07:44:00 Test Item Value Reference Range Interpretation Comments HIV Negative Negative Semi-quantitative (test code = 30161-9) BRIDGET (test code = Non-reactive for HIV-1 BRIDGET) antigen and HIV-1/HIV-2 antibodies. ?No laboratory evidence of HIV infection. ?Repeat in 2-4 weeks if acute HIV infection is suspected. [facility] HospitalSARS-COV-2 [id number] 06:37:00 Test Item Value Reference Range Interpretation Comments CoV-2 IgG (test code Negative Negative Negativ e result = 14902-6) does not rule o va acute SARS-CoV- 2 infection. Clinical correlation as well as molecul ar diagnostic test are recommended to rule out acu te infection if clinically indicated. BRIDGET (test code = BRIDGET) This test has been approved by FDA for emergency use. Lab Interpretation Normal (test code = 94451-1) [facility] HospitalHEPATITIS B SURFACE [id number] 06:28:00 Test Item Value Reference Range Interpretation Comments HBsAg Semi-Quantitative (test code = Negative Negative 5195-3) [facility] HospitalPRENATAL WORKUP, BLOOD [id number] 05:28:33 Test Item Value Reference Range Interpretation Comments ABO & RH (test code B NEGATIVE Performe d at [facility] = 20) Laboratory Serv [facility] Blood Bank[address] [facility] s [id number] Free: [phone] A No. [id number] IAT (test code = Negative Performed a t [facility] 1185) Laboratory Serv [facility] Blood Bank[address] [facility] s [id number] Free: [phone] A No. [id number] [facility] HospitalGLUCOSE 1 HOUR POST [id number] 05:10:00 Test Item Value Reference Range Interpretation Comments GLUC 1 HR (test code = 5405837185) 67 mg/dL 120-170 L Lab Interpretation (test code = Abnormal 25088-6) [facility] HospitalCB WITH [id number] 04:00:00 Test Item Value Reference Range Interpretation Comments WBC (test code = See_Comment [Automated 7135-2) message] The sy stem which generated this result transmitted reference range : 4.30 - 11.10 10*3/?L. The reference range was not used to interpret this result as normal/abnormal . RBC (test code = See_Comment [Automated 409-8) message] The sy stem which generated this [...] RDW-SD (test code = 47.8 fL 39-49.9 22714-4) RDW-CV (test code = 15.8 % 12-15.5 H 788-0) PLT (test code = See_Comment [Automated 327-3) message] The sy stem which generated this result transmitted reference range : 166 - 358 10*3/ ?L. The reference r ian was not used to interpret this result as normal/abnormal . MPV (test code = 10.1 fL 9.5-12.9 56675-9) NRBC/100 WBC (test See_Comment [Automat ed code = 4402673756) message] The system which generated this result transmitted reference range : 0.0 - 10.0 /100 WBCs. The refer ence range was not u sed to interpret th is result as normal/abnormal . NRBC x10^3 (test code <0.01 See_Comment [Auto mated = 5659271180) message] The s ystem which generated this result transmitted reference range : 10*3/?L. The reference range was not used to interpret this result as normal/abnormal . GRAN MAT (NEUT) % 60.4 % (test code = 770-8) IMM GRAN % (test code 0.20 % = 0885824097) LYMPH % (test code = 27.9 % 736-9) MONO % (test code = 8.4 % 5905-5) EOS % (test code = 2.1 % 713-8) BASO % (test code = 1.0 % 706-2) GRAN MAT x10^3(ANC) 3.80 10*3/uL 1.88-7.09 (test code = 2602972556) IMM GRAN x10^3 (test <0.03 0-0.06 code = 3672303572) LYMPH x10^3 (test code 1.75 10*3/uL 1.32-3.29 = 731-0) MONO x10^3 (test code 0.53 10*3/uL 0.33-0.92 = 742-7) EOS x10^3 (test code = 0.13 10*3/uL 0.03-0.39 711-2) BASO x10^3 (test code 0.06 10*3/uL 0.01-0.07 = 704-7) Lab Interpretation Abnormal (test code = 09869-6) [facility] HospitalPORI [id number] 18:57:00 Test Item Value Reference Range Interpretation Comments POCT PREG (test code = 1605) Positive On board controls acceptable with C Yes Line (test code = 3574) POCT PREG LOT # (test code = 3575) POCT PREG TEST DATE (test code = 357) [facility] URINALYSIS W/O SPECIFIC [id number] 18:57:00 Test Item Value Reference Range Interpretation [...] code = 3257) Neg Negative - Negative [facility] [id number] 18:57:00 Test Item Value Reference Range Interpretation Comments POCT PREG (test code = 1605) Positive On board controls acceptable with C Yes Line (test code = 3574) POCT PREG LOT # (test code = 3575) POCT PREG TEST DATE (test code = 357) [facility] URINALYSIS W/O SPECIFIC [id number] 18:57:00 Test Item Value Reference Range Interpretation [...] code = 3257) Neg Negative - Negative [facility] LiqdstQykazevpbs3110-07-75 04:43:00 Test Item Value Reference Range Interpretation Comments APPEARANCE (test code = Cloudy Clear A 6839202800) COLOR (test code = Yellow Yellow 5730904440) PH (test code = 4.8-8.0 3537768651) SP GRAVITY (test code = 1.003-1.030 3164042278) GLU U QUAL (test code = Normal Normal 2123993796) BLOOD (test code = Negative Negative 5840088923) KETONES (test code = Negative Negative 2653796301) PROTEIN (test code = Negative Negative 2887-8) UROBILIN (test code = Normal Normal 8754909583) BILIRUBIN (test code = Negative Negative 8054208342) NITRITE (test code = Negative Negative 7729619089) LEUK SUZANNA (test code = Negative Negative 8633193763) RBC/HPF (test code = See_Comment [Autom ated message] 4785111096) The system [employer] generated this result transmitted ref erence range: 0 - 3 HP F. The reference range was not used to int erpret this result as normal/abnormal . WBC/HPF (test code = See_Comment [Autom ated message] 2065002307) The system [employer] generated this result transmitted ref erence range: 0 - 5 HP F. The reference range was not used to int erpret this result as normal/abnormal . BACTERIA (test code = Few Negative A 3147201070) SQ EPITH (test code = HPF 4059709810) Lab Interpretation (test Abnormal code = 73213-4) [facility] HospitalComplete Metabolic [id number] 04:27:00 Test Item Value Reference Range Interpretation Comments NA (test code = 138 mmol/L 135-145 0577233471) K (test code = 3.8 mmol/L 3.5-5 6506919488) CL (test code = 104 mmol/L 98-108 8363023759) CO2 TOTAL (test code = 26 mmol/L 23-31 3954017433) AGAP (test code = 2-16 3572313259) BUN (test code = 13 mg/dL 7-23 8398806221) GLUCOSE (test code = 75 mg/dL 70-110 2010985870) CREATININE (test code 0.90 mg/dL 0.5-1.04 = 5478610015) TOTAL BILI (test code 0.1 mg/dL 0.1-1.1 = 9479963111) CALCIUM (test code = 9.7 mg/dL 8.6-10.6 6740419234) T PROTEIN (test code = 8.1 g/dL 6.3-8.2 3931479510) ALBUMIN (test code = 4.7 g/dL 3.5-5 4593734246) ALK PHOS (test code = 48 U/L 34-122 2851698411) ALTv (test code = 15 U/L 5-35 1742-6) AST(SGOT) (test code = 22 U/L 13-40 2097213130) eGFR Calculation mL/min/1.73m2 (Non-) (test code = 4137588378) eGFR Calculation mL/min/1.73m2 () (test code = 4185150993) BRIDGET (test code = BRIDGET) Association of [...] or urine or abnormalities in imaging tests). [facility] with [id number] 04:16:00 Test Item Value Reference Range Interpretation Comments WBC (test code = See_Comment [Automated 4890-2) message] The sy stem which generated this [...] RDW-SD (test code = 44.7 fL 39-49.9 98092-6) RDW-CV (test code = 15.8 % 12-15.5 H 788-0) PLT (test code = See_Comment [Automated 777-3) message] The sy stem which generated this result transmitted reference range : 166 - 358 10*3/ ?L. The reference r ian was not used to interpret this result as normal/abnormal . MPV (test code = 9.5 fL 9.5-12.9 59513-7) NRBC/100 WBC (test See_Comment [Automat ed code = 5531619434) message] The system which generated this result transmitted reference range : 0.0 - 10.0 /100 WBCs. The refer ence range was not u sed to interpret th is result as normal/abnormal . NRBC x10^3 (test code <0.01 See_Comment [Auto mated = 1551186034) message] The s ystem which generated this result transmitted reference range : 10*3/?L. The reference range was not used to interpret this result as normal/abnormal . GRAN MAT (NEUT) % 47.1 % (test code = 770-8) IMM GRAN % (test code 0.30 % = 2562910674) LYMPH % (test code = 38.6 % 736-9) MONO % (test code = 9.7 % 5905-5) EOS % (test code = 3.4 % 713-8) BASO % (test code = 0.9 % 706-2) GRAN MAT x10^3(ANC) 3.19 10*3/uL 1.88-7.09 (test code = 6432193947) IMM GRAN x10^3 (test <0.03 0-0.06 code = 9294225964) LYMPH x10^3 (test code 2.61 10*3/uL 1.32-3.29 = 731-0) MONO x10^3 (test code 0.66 10*3/uL 0.33-0.92 = 742-7) EOS x10^3 (test code = 0.23 10*3/uL 0.03-0.39 711-2) BASO x10^3 (test code 0.06 10*3/uL 0.01-0.07 = 704-7) Lab Interpretation Abnormal (test code = 53975-0) [facility] [id number] 04:03:00 Test Item Value Reference Range Interpretation Comments POCT PREG (test code = 1605) Negative On board controls acceptable with present C Line (test code = 3574) POCT PREG LOT # (test code = 3575) [id number] POCT PREG TEST DATE (test 03/07/2021 code = 3576) Lab Interpretation (test code = Normal 21504-9) [facility] PELVIS COMPLETE WITH [id number] 23:06:02 Unremarkable ultrasound of the uterus and right ovary. Left ovary could notbe visualized Preliminary Report Dictated by Resident: Milad Chávez MD., have reviewed this study and agreewith the abovereport.EXAM: US PELVIS COMPLETE WITH TRANSVAGINAL HISTORY: 19 years -old Female with pelvic pain . LMP = 02/05/2020. n TECHNIQUE: Transabdominal and transvaginal ultrasound imaging ofthe pelviswas performed including color Doppler evaluation. Receiving Operator imageswere obtained for the record. COMPARISON: None [...] with pelvic pain . LMP = 02/05/2020. [id number]: Transabdominal and transvaginal ultraso und imaging of the pelviswas performed including color Doppler evaluation. Receiving Operator imageswereobtained for the record.COMPARISON: NoneFINDINGS:Uterus: The uterus [...] reviewed this study and agree with the abovereport.[facility]. METABOLIC PANEL (13119) 2020-02-26 22:42:00 Test Item Value Reference Range Interpretation Comments NA (test code = 138 mmol/L 135-145 0151496462) K (test code = 4.3 mmol/L 3.5-5 0906824318) CL (test code = 107 mmol/L 98-108 0515275454) CO2 TOTAL (test code = 23 mmol/L 23-31 7200495041) AGAP (test code = 2-16 8452324171) BUN (test code = 14 mg/dL 7-23 7187652203) GLUCOSE (test code = 93 mg/dL 70-110 0100156338) CREATININE (test code 0.75 mg/dL 0.5-1.04 = 5314496475) TOTAL BILI (test code 0.3 mg/dL 0.1-1.1 = 9284376101) CALCIUM (test code = 9.8 mg/dL 8.6-10.6 2087327943) T PROTEIN (test code = 7.9 g/dL 6.3-8.2 2704052128) ALBUMIN (test code = 4.7 g/dL 3.5-5 5978605257) ALK PHOS (test code = 41 U/L 34-122 8524233135) ALTv (test code = 12 U/L 5-35 1742-6) AST(SGOT) (test code = 19 U/L 13-40 1722467497) eGFR Calculation mL/min/1.73m2 (Non-) (test code = 5168815069) eGFR Calculation mL/min/1.73m2 () (test code = 1967751830) BRIDGET (test code = BRIDGET) Association of [...] or urine or abnormalities in imaging tests). [facility] 22:32:00 Test Item Value Reference Range Interpretation Comments APPEARANCE (test code = Hazy Clear A 3000476137) COLOR (test code = Yellow Yellow 8976665523) PH (test code = 4.8-8.0 7187635959) SP GRAVITY (test code = 1.003-1.030 9665703761) GLU U QUAL (test code = Normal Normal 0377086247) BLOOD (test code = Negative Negative INTERFERE NCE FROM 5790090401) ASCORBIC ACID M AY CAUSE FALSE NEG ATIVE RESULT KETONES (test code = Negative Negative 1604932302) PROTEIN (test code = Negative Negative 2887-8) UROBILIN (test code = Normal Normal 5793097146) BILIRUBIN (test code = Negative Negative 6992942396) NITRITE (test code = Negative Negative 0630922526) LEUK SUZANNA (test code = Negative Negative 5467339048) RBC/HPF (test code = See_Comment [Autom ated message] 9735114849) The system [employer] generated this result transmitted ref erence range: 0 - 3 HP F. The reference range was not used to int erpret this result as normal/abnormal . WBC/HPF (test code = See_Comment [Autom ated message] 3809609805) The system [employer] generated this result transmitted ref erence range: 0 - 5 HP F. The reference range was not used to int erpret this result as normal/abnormal . BACTERIA (test code = Few Negative A 6137354069) MUCOUS (test code = Slight Negative LPF A 3600917109) SQ EPITH (test code = HPF 6526718220) Lab Interpretation (test Abnormal code = 22117-1) [facility] WITH [id number] 22:23:00 Test Item Value Reference Range Interpretation Comments WBC (test code = See_Comment [Automated 6090-2) message] The [employer] stem which generated this result transmitted reference [...] RDW-SD (test code = 42.4 fL 39-49.9 26122-9) RDW-CV (test code = 15.4 % 12-15.5 788-0) PLT (test code = See_Comment [Automated 777-3) message] The sy stem which generated this result transmitted reference range : 166 - 358 10*3/ ?L. The reference r ian was not used to interpret this result as normal/abnormal . MPV (test code = 9.4 fL 9.5-12.9 L 37218-1) NRBC/100 WBC (test See_Comment [Automat ed code = 3753666927) message] The system which generated this result transmitted reference range : 0.0 - 10.0 /100 WBCs. The refer ence range was not u sed to interpret th is result as normal/abnormal . NRBC x10^3 (test code <0.01 See_Comment [Auto mated = 6256718116) message] The s ystem which generated this result transmitted reference range : 10*3/?L. The reference range was not used to interpret this result as normal/abnormal . GRAN MAT (NEUT) % 57.4 % (test code = 770-8) IMM GRAN % (test code 0.20 % = 1421564312) LYMPH % (test code = 27.8 % 736-9) MONO % (test code = 10.2 % 5905-5) EOS % (test code = 3.4 % 713-8) BASO % (test code = 1.0 % 706-2) GRAN MAT x10^3(ANC) 3.38 10*3/uL 1.88-7.09 (test code = 5969410666) IMM GRAN x10^3 (test <0.03 0-0.06 code = 3834118677) LYMPH x10^3 (test code 1.64 10*3/uL 1.32-3.29 = 731-0) MONO x10^3 (test code 0.60 10*3/uL 0.33-0.92 = 742-7) EOS x10^3 (test code = 0.20 10*3/uL 0.03-0.39 711-2) BASO x10^3 (test code 0.06 10*3/uL 0.01-0.07 = 704-7) Lab Interpretation Abnormal (test code = 49292-3) [facility] [id number] 22:12:00 Test Item Value Reference Range Interpretation Comments POCT PREG (test code = 1605) negative On board controls acceptable with C present Line (test code = 3574) Lab Interpretation (test code = Normal 67947-5) [facility] [id number] 21:24:00 Test Item Value Reference Range Interpretation Comments POCT PREG (test code = 1605) Negative On board controls acceptable with C Yes Line (test code = 3574) POCT PREG LOT # (test code = 3575) POCT PREG TEST DATE (test code = 3576) [facility] [id number] 21:24:00 Test Item Value Reference Range Interpretation Comments POCT PREG (test code = 1605) Negative On board controls acceptable with C Yes Line (test code = 3574) POCT PREG LOT # (test code = 3575) POCT PREG TEST DATE (test code = 3576) [facility] [id number] 20:36:00 Test Item Value Reference Range Interpretation Comments POCT PREG (test code = 1605) Negative On board controls acceptable with C Yes Line (test code = 3574) POCT PREG LOT # (test code = 3575) POCT PREG TEST DATE (test code = 3576) [facility] [id number] 20:36:00 Test Item Value Reference Range Interpretation Comments POCT PREG (test code = 1605) Negative On board controls acceptable with C Yes Line (test code = 3574) POCT PREG LOT # (test code = 3575) POCT PREG TEST DATE (test code = 3576) [facility] [id number] 12:23:00 Test Item Value Reference Range Interpretation Comments URINE CULTURE (test > 100,000 CFU/mL mixed code = 630-4) aerobic organisms - suggests endogenous microbial contamination [facility] [id number] 12:23:00 Test Item Value Reference Range Interpretation Comments URINE CULTURE (test > 100,000 CFU/mL mixed code = 630-4) aerobic organisms - suggests endogenous microbial contamination [facility] R/O [id number] 10:48:29 Test Item Value Reference Range Interpretation Comments ANTIBODY (test Anti-D Probable RhIg recei osiel code = 683) RhIg 03/29/19.Perform ed at [facility] Blood [address] s [address]Pcaw Free: [phone] A No. [id number] [facility]/O [id number] 10:48:29 Test Item Value Reference Range Interpretation Comments ANTIBODY (test Anti-D Probable RhIg recei osiel code = 683) RhIg 03/29/19.Perform ed at [facility] Blood [address] s [address]Vlox Free: [phone] A No. [id number] [facility] WORKUP, BLOOD [id number] 08:48:27 Test Item Value Reference Range Interpretation Comments ABO & RH (test code B NEGATIVE Performe d at [facility] = 20) Laboratory Serv [facility] Blood Bank[address] [place] [address] s [address]Jmgy Free: [phone] A No. [id number] IAT (test code = Positive Performed a t [facility] 1185) Laboratory Serv [facility] Blood Bank3 [address] [facility] [address]Miha Free: [phone] A No. [id number] [facility], BLOOD [id number] 08:48:27 Test Item Value Reference Range Interpretation Comments ABO & RH (test code B NEGATIVE Performe d at [facility] = 20) Laboratory Serv [facility] Blood Bank3 [facility] [address]Kszm Free: [phone] A No. [id number] IAT (test code = Positive Performed a t [facility] 1185) Laboratory Serv [facility] Blood Bank3 [facility] [address]Vbdq Free: [phone] A No. [id number] [facility] UR[facility] W SPECIFIC [id number] 18:15:00 Test Item Value Reference Range Interpretation [...] POCT U APPEAR (test code = 3267) [facility] W SPECIFIC [id number] 18:15:00 Test Item Value Reference Range Interpretation [...] POCT U APPEAR (test code = 3267) [facility] SPECIFIC [id number] 18:15:00 Test Item Value Reference Range Interpretation [...] POCT U APPEAR (test code = 3267) [facility] ONLY - SYPHILIS [id number] 14:40:00 Test Item Value Reference Range Interpretation Comments Syphilis IgG/IgM (test Non-reactive Non-reactive code = 04160-4) BRIDGET (test code = BRIDGET) Non-reactive - No serologic evidence of T. pallidum infection. Cannot exclude incubating or early syphilis. Submit a second specimen in 2-4 weeks if syphilis is clinically suspected.Equivocal - Further testing to follow.Reactive - Further testing to follow. Lab Interpretation (test Normal code = 72957-2) [facility] /2 AG-AB WITH [id number] 11:17:00 Test Item Value Reference Range Interpretation Comments HIV Negative Negative Semi-quantitative (test code = 31502-9) BRIDGET (test code = Non-reactive for HIV-1 BRIDGET) antigen and HIV-1/HIV-2 antibodies.?No laboratory evidence of HIV infection.?Repeat in 2-4 weeks if acute HIV infection is suspected. [facility] SPECIFIC [id number] 18:48:00 Test Item Value Reference Range Interpretation [...] POCT U APPEAR (test code = 3267) [facility] W SPECIFIC [id number] 14:59:00 Test Item Value Reference Range Interpretation [...] POCT U APPEAR (test code = 3267) [facility] Notes Date/Time Note Provider Source 2022-12-24 12:23:00-00:00 [facility] ([facility]) Med Order Sheet REPORT #: [id number] REPORT STATUS: Signed DATE: 12/24/22 TIME: 1222 PATIENT: AMANUEL LOTT UNIT #: [id number] ROOM #: BED: : 00 AGE: 22 SEX: F ATTEND: Dagoberto Galan MD ADM AUTHOR: Renu Galan MD ATTENTION *EDITS and/or ADDENDA must be made in Patient Ke eper for this note. * * Edits and ammendments created in [facility] are not visible * * in Patient Keeper or the legal medical record (HPF). * Discharge Medication Reconciliation DISCHARGE MEDICATION LIST Sertraline Tab (Zoloft Tab) Dose: 50 MG PO QAM Hosp: HYDROcod/APAP 5/325 Tab ([place] 5/325 Tab) Dose: 1 TAB PO Q4H X 7 days PRN pain scale 4-6, Disp: 42 tablet, Refills: 0 STOPPED HOSPITAL MEDICATIONS Dc'd: Acetaminophen Tab (Tylenol Tab) 1000MG PO ONCALLDc'd: cefOXitin Inj (Mefoxin Inj) 2GM IV ONCALLin Sodium Chloride 0. 9% (NS) 100ML Dc'd: Pregabalin Cap (Lyrica Cap) 50MG PO ONCALL 1 2:22 Electronically Signed by Renu Galan MD on 0 12/24/22 at 1223 ATTENTION *EDITS and/or ADDENDA must be made in Patient Ke eper for this note. * * Edits and ammendments created in [facility] are not visible * * in Patient Keeper or the legal medical record (HPF). * [facility] #: [id number] END OF REPORT 2022-12-24 12:23:00-00:00 [id number] [address] PATIENT NAME: AMANUEL LOTT ADMIT DATE: 12/24/22 ACCOUNT NO: [id number] ROOM NO: AGE: 22 REPORT TYPE: OPERATIVE REPORT SEX: F ADMITTING PHYSICIAN: ATTENDING PHYSICIAN:Renu Galan MD OPERATION DATE: 12/24/2022 PREOPERATIVE DIAGNOSIS: Symptomatic gallstones. POSTOPERATIVE DIAGNOSIS: Symptomatic gallstones. PROCEDURE PERFORMED: Laparoscopic cholecystectom y. SURGEON: Renu Galan MD CERTIFIED EMERGENCY VEHICLE TECHNICIAN: ANESTHESIA: General with local. ESTIMATED BLOOD LOSS: Minimal. COMPLICATIONS: None. DRAINS: None. CONDITION: Stable. FINDINGS: Gallstones. INDICATIONS: The patient is a 22-year-old female with symptomatic gallstones. She was brought to the operating room for cholec ystectomy. She was explained the risks, benefits of the procedure, voiced und erstanding and wishes to proceed. DESCRIPTION OF THE PROCEDURE: After info rmed consent was obtained, the patient was brought to the operating room and placed in the supine position. She was given general anesthesia. The area was prepped a nd draped. Preoperative timeout was completed. An infraumbilical incisio n was made. The fascia was grasped and incised and the abdomen was entered without incident in open a Gertrude technique. A 2-0 Vicryl tacking s utures were placed. Gertrude cannula was inserted. Pneumoperitoneum was established. A 12 mm trocar was placed in the subxiphoid midline, two 5 mm trocars placed in t he right upper quadrant. The gallbladder was identified, grasped and elevated . Dissection was initiated in triangle of Calot. The cystic duct and cystic ar alan were clearly identified, dissected free circumferentially, clipped and di vided. Dissection was then carried up in the gallbladde r fossa until gallbladder was completely removed and was placed into a bag. The area was suction irri gated and was hemostatic. The PATIENT NAME AMANUEL LOTT 9 ports were removed under dir ect vision. Specimen was removed from the umbilical port. The fascia was closed with interrupted 0 V icryl. Skin closed with 4-0 Monocryl and Dermabond. 30 mL of 0.25% Marcaine was infiltrated on the area. The patient tolerated the procedure well and was transferred to the PACU in stable condition. Dictated By: Renu Galan MD Date Dictated: 12/24/2022 12:23:19 Date Transcribed: 12/24/2022 12:31:42 LEANNE/JULIETA Receipt ID: [id number] Authenticated by Renu Galan MD On 023 03:37:58 PM Electronically Signed by Renu Galan MD on 0 12/25/22 at 0337 PATIENT NAME AMANUEL LOTT 9
[2022-12-30 19:22] LABS: Specific Gravity 1.016 (1.005-1.030)
[2022-12-30 19:25] LABS: Specific Gravity 1.016 (1.005-1.030); Urine Bacteria None Seen /HPF (<20); Urine Bilirubin NEGATIVE (Negative); Urine Blood Negative (Negative); Urine Clarity Clear (Clear); Urine Color Yellow (Yellow); Urine Glucose NEGATIVE (Negative); Urine Mucus Slight /HPF (None Seen); Urine Protein NEGATIVE (Negative); Urine RBC <5 /HPF (None Seen); Urine Urobilinogen Normal (Normal)
[2022-12-30 19:32] LABS: Absolute Lymphocytes (CBC) 1.7 K/uL (0.7-4.9); Lymphocytes % 21.2 % (15.3-44.8); MCV 79.2 fL (80-100); RBC Red Blood Cell Count 4.55 M/uL (3.86-4.86)
[2022-12-30 19:48] LABS: Albumin 4.5 g/dL (3.4-5.0); Bilirubin Total 0.2 mg/dL (0.2-1.0); Potassium 4.1 mEq/L (3.5-5.1); Protein, Total 8.9 g/dL (6.4-8.2)
--- NOTE | 2022-12-30 20:11 | RAD REPORT ---
EXAM DESCRIPTION: CT - Abdomen Pelvis W Contrast - 12/30/2022 7:42 pm CLINICAL HISTORY: Abdominal pain COMPARISON: November 2002 TECHNIQUE: Computed axial tomography of the abdomen pelvis was obtained. 100 cc Isovue-300 was admin istered intravenously. Oral contrast was not requested which limits evaluation of bowel and appendix All CT scans are performed using dose optimization technique as appropriate and may include automated exposure control or mA/KV adjustment according to patient size. FINDINGS: Patient is status post recent cholecystectomy with stranding in in the anterior subcutaneo us fat in the umbilical region. Small amount of pneumoperitoneum. No fluid within the gallbladder fos sa. No ascites surrounding the liver. No abscess Liver, spleen, pancreas, adrenals and kidneys appear unremarkable No evidence diverticulitis. An abnormal appendix is not seen. No adnexal mass. Minimal amount of free fluid in the pelvis may be physiologic IMPRESSION: No acute abnormality is displayed.
--- NOTE | 2022-12-30 20:48 | ER ---
Nurse's Notes [facility] Name: Jazmin Lott Age: 22 yrs Sex: Female : 2000 Arrival Date: 12/30/2022 Time: 17:21 Bed 12 Private MD: Diagnosis: Local infection of the skin and subcutaneous tissue, unspecified Presentation: 12/30 17:41 Chief complaint: Patient states: Had cholecystectomy done Tuesday, states pain got worse nj1 a couple days ago along with nausea but today she noted some whitish/yellowish stuff come out of umbilical incision. Coronavirus screen: Vaccine status: Patient reports being unvaccinated. Ebola Screen: Patient denies travel to an Ebola-affected area in the 21 days before illness onset. Initial Sepsis Screen: Does the patient meet any 2 criteria? No. Patient's initial sepsis screen is negative. Does the patient have a suspected source of infection? No. Patient's initial sepsis screen is negative. Risk Assessment: Do you want to hurt yourself or someone else? Patient reports no desire to harm self or others. Onset of symptoms was December 24, 2022. 17:41 Method Of Arrival: Ambulatory [facility] 17:41 Acuity: ADEN 3 nj1 Historical: - Allergies: 17:45 Doxycycline; nj1 - Home Meds: 17:45 Zoloft 50 mg Oral tab 1 tab daily [Active]; nj1 - PMHx: 17:45 depressive disorder; pelvic inflammatory disease; nj1 - PSHx: 17:45 Cholecystectomy; nj1 - Immunization history:: Client reports receiving the 2nd dose of the Covid vaccine. - Social history:: Smoking status: Reported history of juuling and/or vaping. Screenin:24 [facility] ED Fall Risk Assessment (Adult) History of falling in the last 3 months, lg3 including since admission No falls in past 3 months (0 pts). Abuse screen: Denies threats or abuse. Denies injuries from another. Nutritional screening: No deficits noted. Tuberculosis screening: No symptoms or risk factors identified. Assessment: 19:24 General: Appears in no apparent distress. comfortable, Behavior is calm, cooperative. lg3 Pain: Complains of pain in abdomen. Neuro: No deficits noted. Weeks Agitation-Sedation Scale (RASS): 0 - Alert and Calm Level of Consciousness is awake, alert, obeys commands, Oriented to person, place, time, situation. Cardiovascular: No deficits noted. Denies chest pain, shortness of breath, Capillary refill < 3 seconds Clubbing of nail beds is absent JVD is absent Patient's skin is warm and dry. Respiratory: No deficits noted. Airway is patent Respiratory effort is even, unlabored, Respiratory pattern is regular, symmetrical. GI: No deficits noted. No signs and/or symptoms were reported involving the gastrointestinal system. Abdomen is flat, non-distended. : No deficits noted. No signs and/or symptoms were reported regarding the genitourinary system. EENT: No deficits noted. No signs and/or symptoms were reported regarding the EENT system. Derm: Skin is intact, is healthy with good turgor, Skin is dry, Skin is normal, Skin temperature is warm Wound noted umbilical area Reports pain that is 5 out of 10 on a pain scale. Musculoskeletal: No deficits noted. No signs and/or symptoms reported regarding the musculoskeletal system. Circulation, motion, and sensation intact. Range of motion: intact in all extremities. 20:53 Reassessment: Patient appears in no apparent distress at this time. No changes from lg3 previously documented assessment. Patient and/or family updated on plan of care and expected duration. Pain level reassessed. Patient is alert, oriented x 3, equal unlabored respirations, skin warm/dry/pink. Vital Signs: 17:41 BP 117 / 67; Pulse 84; Resp 18; Temp 98.8; Pulse Ox 100% ; Weight 78.93 kg; Height 5 nj1 ft. 6 in. ; Pain 6/10; 20:54 BP 121 / 72; Pulse 88; Resp 17 S; Pulse Ox 100% on R/A; lg3 17:41 Body Mass Index 28.08 (78.93 kg, 167.64 cm) nj1 17:41 Pain Scale: Adult nj1 ED Course: 17:22 Patient arrived in ED. rg4 17:25 Jacqueline Hernandez FNP-C [facility] kb 17:25 Carrington Vences MD is Attending Physician. kb 17:35 Radiology exam delayed due to test not completed at this time. IV insertion ls3 attempt and/or patient not having appropriate IV at this time. 17:45 Triage completed. nj1 17:47 Arm band placed on right wrist. nj1 19:09 Test, Urine Sent. [facility] 19:09 Urinalysis w/ reflexes Sent. [facility] 19:13 Gris Gordillo, RN is Primary Nurse. lg3 19:22 Inserted saline lock: 20 gauge in right antecubital area, using aseptic technique. [facility] Blood collected. 19:22 CBC with Diff Sent. 1 19:22 CMP Sent. [facility] 19:22 Lipase Sent. [facility] 19:24 Patient has correct armband on for positive identification. Placed in gown. Bed in low lg3 position. Call light in reach. Side rails up X 1. Client placed on continuous cardiac and pulse oximetry monitoring. NIBP monitoring applied. Door closed. Noise minimized. Warm blanket given. 19:43 CT Abd/Pelvis - IV Contrast Only In Process Unspecified. EDMS 20:54 No provider procedures requiring assistance completed. IV discontinued, intact, lg3 bleeding controlled, No redness/swelling at site. Pressure dressing applied. Administered Medications: No medications were administered Medication: 20:54 VIS not applicable for this client. lg3 Outcome: 20:47 Discharge ordered by . kb 20:54 Discharged to home ambulatory. lg3 20:54 Condition: stable 20:54 Discharge instructions given to patient, Instructed on discharge instructions, follow up and referral plans. medication usage, Demonstrated understanding of instructions, follow-up care, medications, Prescriptions given X 1. 20:54 Patient left the ED. lg3 Signatures: Dispatcher [employer] ED[facility] Jacqueline Hernandez, MELISSAC AUTO TECH-Ashely Henderson rg4 Orlando Christiansen 3 Gris Gordillo, RN RN lg3 Josefina Cox RN RN nj1 Jeannie Kaba [facility]
--- NOTE | 2022-12-30 20:48 | EDPHYS ---
Physician Documentation [facility] Name: Jazmin Lott Age: 22 yrs Sex: Female : 2000 Arrival Date: 12/30/2022 Time: 17:21 Bed 12 Private MD: ED Physician Carrington Vences HPI: 12/30 21:59 This 22 yrs old Female presents to ER via Ambulatory with complaints of Incision kb Problem. 22:02 Pt reports she had a cholecystectomy last week and noticed redness around one of the kb incisions today. Onset: The symptoms/episode began/occurred today. Severity of symptoms: At their worst the symptoms were mild in the emergency department the symptoms are unchanged. The patient has not experienced similar symptoms in the past. The patient has been recently seen by a physician:. Historical: - Allergies: 17:45 Doxycycline; nj1 - Home Meds: 17:45 Zoloft 50 mg Oral tab 1 tab daily [Active]; nj1 - PMHx: 17:45 depressive disorder; pelvic inflammatory disease; nj1 - PSHx: 17:45 Cholecystectomy; nj1 - Immunization history:: Client reports receiving the 2nd dose of the Covid vaccine. - Social history:: Smoking status: Reported history of juuling and/or vaping. ROS: 22:00 Constitutional: Negative for fever, chills, and weight loss. kb 22:00 Abdomen/GI: Positive for abdominal pain. 22:00 Skin: Positive for redness to umbilical incision. 22:00 All other systems are negative. Exam: 22:00 Constitutional: This is a well developed, well nourished patient who is awake, alert, kb and in no acute distress. Head/Face: Normocephalic, atraumatic. ENT: Moist Mucous membranes Cardiovascular: Regular rate and rhythm with a normal S1 and S2. No gallops, murmurs, or rubs. No pulse deficits. Respiratory: Respirations even and unlabored. No increased work of breathing. Talking in full sentences MS/ Extremity: Pulses equal, no cyanosis. Neurovascular intact. Full, normal range of motion. Neuro: Awake and alert, GCS 15, oriented to person, place, time, and situation. Moves all extremities. Normal gait. 22:00 Abdomen/GI: Inspection: bruising, umbilical area, recent surgical incisions noted, umbilical incision with ecchymosis and erythema. no warmth, drainage, Bowel sounds: normal, Palpation: soft, in all quadrants, mild abdominal tenderness, in the umbilical area. Vital Signs: 17:41 BP 117 / 67; Pulse 84; Resp 18; Temp 98.8; Pulse Ox 100% ; Weight 78.93 kg; Height 5 nj1 ft. 6 in. ; Pain 6/10; 20:54 BP 121 / 72; Pulse 88; Resp 17 S; Pulse Ox 100% on R/A; lg3 17:41 Body Mass Index 28.08 (78.93 kg, 167.64 cm) nj1 17:41 Pain Scale: Adult nj1 MDM: 17:25 Patient medically screened. kb 22:01 Differential Diagnosis incision infection, post-surgical infection. Data reviewed: kb vital signs, nurses notes. Counseling: I had a detailed discussion with the patient and/or guardian regarding: the historical points, exam findings, and any diagnostic results supporting the discharge/admit diagnosis, lab results, radiology results, the need for outpatient follow up, a family practitioner, to return to the emergency department if symptoms worsen or persist or if there are any questions or concerns that arise at home. 12/30 17:32 Order name: CBC with Diff; Complete Time: 19:42 kb 12/30 17:32 Order name: CMP; Complete Time: 19:49 kb 12/30 17:32 Order name: Lipase; Complete Time: 19:49 kb 12/30 17:32 Order name: Test, Urine; Complete Time: 19:42 kb 12/30 17:32 Order name: Urinalysis w/ reflexes; Complete Time: 19:42 kb 12/30 17:32 Order name: CT Abd/Pelvis - IV Contrast Only; Complete Time: 20:12 kb 12/30 17:32 Order name: IV Saline Lock; Complete Time: 19:22 kb 12/30 17:32 Order name: Labs collected and sent; Complete Time: 19:22 kb Administered Medications: No medications were administered Disposition Summary: 12/30/22 20:47 Discharge Ordered Location: Home kb Condition: Stable kb Diagnosis - Local infection of the skin and subcutaneous tissue, unspecified kb Followup: kb - With: Emergency Department - When: As needed - Reason: Worsening of condition Followup: kb - With: Private Physician - When: 2 - 3 days - Reason: Recheck today's complaints, Continuance of care, Re-evaluation by your physician Discharge Instructions: - Discharge Summary Sheet kb - Wound Infection, [id number] kb Forms: - Medication Reconciliation Form kb - Thank You Letter kb - Antibiotic Education kb - Prescription Opioid Use kb Prescriptions: - Bactrim DS 800-160 mg Oral Tablet - take 1 tablet by ORAL route every 12 hours for 10 days; 20 tablet; Refills: 0, kb Product Selection Permitted Signatures: Dispatcher [employer] Jacqueline Cruz, POPCORN VENDOR-C POPC[employer] VENDOR-Josefina Guardado, RN RN nj1
[2022-12-30 21:19] VITALS: TEMP 98.8; O2SAT 100
[2022-12-30 21:25] VITALS: BP 121/72
== END 2022-12-30 20:54 | disposition home or self-care (01) ==
LOC: ER 17:21
DX: L08.9 Local infection of the skin and subcutaneous tissue, unspecified (principal); R10.33 Periumbilical pain; Z90.49 Acquired absence of other specified parts of digestive tract; Z88.1 Allergy status to other antibiotic agents
CPT/HCPCS: 85025; 81001; 36415; 81025; 83690; 80053; 74177; 99284; Q9967

== ENCOUNTER 2023-01-14 11:25 | Emergency (ER) | payer OTHER ==
--- OUTSIDE RECORDS SUMMARY | 2023-01-14 11:44 | XMS REPORT | Continuity of Care Document ---
:2000 Author Organization [facility] t Address [address] [place] [address] Care Team Providers Name Role Phone Molina Oviedo Primary Care Physician [phone] CAHRI PLASENCIA Attending Clinician Unavailable Renu Galan Attending Clinician Unavailable SAMIR BAIRD Attending Clinician Unavailable Samir Baird MD Attending Clinician Doctor Unassigned, [place] Attending Clinician Unavailable [facility], [facility] Attending Clinician Unavailable Molina Oviedo Attending Clinician [phone] MOLINA PAVON Attending Clinician Unavailable AMADNA BAHENA Attending Clinician Unavailable Jacquelyn Peace MD Attending Clinician [phone] IVAN, HERON F Attending Clinician Unavailable Heron Hadley MD Attending Clinician Travon ARENAS [facility] Attending Clinician Uriah PAYNE, Alessandro Attending Clinician [phone] Miah John DO Attending Clinician Risk, Ttd-Sxurq-Rn/High Attending Clinician Unavailable Esp[facility]za [facility] Marilu L Attending Clinician Indra URGENT CARE PHYSICIAN, Cholo F Attending Clinician Eduardo PAYNE, Evangelist Attending Clinician Ultrasound, Ang-Mfm Attending Clinician Unavailable Gerardo Pettit MD Attending Clinician Clara Petit MD Attending Clinician GERARDO PETTIT Attending Clinician Unavailable Magdy Knutson MD Attending Clinician Alina Valle MD, Fátima Attending Clinician [phone] Rigo Petit DO Attending Clinician 1, Pea-[facility] Us Room Attending Clinician Unavailable Lab, Pea-Rmchp Attending Clinician Unavailable [facility], [place] L Attending Clinician [phone] Francis BARRAGANP, Bella R Attending Clinician BELLA [...] Number Effective Date Expiration Date Eloise MORALEZ [id number] 2019 HEALTH 00:00:00 MEDICAID OF [place] [id number] 2019 00:00:00 Problems Condition Condition Condition Status Onset Resolution Last Treating Co mments Source Name Details Category Date Date Treatment Clinician Date 38 weeks 38 weeks Disease Active Unive rs gestation gestation 8-31 ity of of of 00:00: [place] 00 [facility] Labor Labor Disease Active Univers without without 8-31 ity of complic[place] 00 [facility] H/O H/O Disease Active Univers 8-18 ity of delivery, delivery, 00:00: Jose De Jesus miller currently currently 00 [facility] , , Bran ch third third trimester trimester Rh Rh Disease Active Univers negative negative 6-23 ity of state in state in 00:00: [place] antepartum antepartum 00 Me dical period period Branch Anemia of Anemia of Disease Active Uni vers mother in mother in 6-11 ity of , , [place] ante[place] antepartum 00 Me dical Branch Nausea and Nausea and Disease Active U nivers vomiting vomiting 2-10 ity of during during 00:00: [place] 00 [facility] Supervisio Supervisio Disease Active U nivers n of n of 1-13 ity of high-risk high-risk 00:00: Jose De Jesus mill[place] 00 [facility] Multiparit Multiparit Disease Active U nivers y y 1-13 ity of 00:00: [address] History of History of Disease Active U nivers 1-13 ity of delivery delivery 00:00: [address] Pain Pain Disease Active Univers pelvic pelvic 8-25 ity of 00:00: [place] [address] Medical Branch Encounter Encounter Disease Active Uni [...] vaginal [place] delivery[place] 00 [facility] Single Single Disease Active 2018-08 Univers live live 1-03 ity of 00:00: [place] [address] Medical Branch Anemia, Anemia, Disease Active 2018-08 Univers 1-03 it y of 00:00: [place] [address] Medical Branch Obesity Obesity Disease Active 2018-08 Univers (BMI (BMI 1-02 ity of 30-39.9) 30-39.9) 00:00: [address] Branch 38 weeks 38 weeks Disease Active 2018-08 Unive rs gestation gestation 1-02 ity of of of 00:00: [place] 00 [facility] Obesity in Obesity in Disease Active 2018-08 U nivers 1-02 ity of 00:00: [address] Supervisio Supervisio Disease Active 2018-08 U nivers n of n of 0-29 it[place] of high[place]risk high[place] [facility] Multiparit Multiparit Disease Active 2018-08 U nivers y y 0-29 ity of 00:00: [address] Branch Anemia of Anemia of Disease Active 2018-08 Overview: Univers mother in mother in 0-17 Verify if i ty of , , 00:00[place] antepartum antepartum 00 is taking Medical iron/vit/ Branch pnv on next visit Vaginal Vaginal Disease Active 2019- Univers bleeding bleeding 9-10 ity of during during 00:00: [place] 00 [facility] Supervisio Supervisio Disease Active 2019 U nivers n of n of 7-16 it[place] of high-risk high[place]risk [place] [facility] Round Round Disease Active 2019- Univers ligament ligament 7-16 ity of pain pain 00:00: [place] [address] Medical Branch Pyelectasi Pyelectasi Disease Active 2019 [...] use 3-15 Quit with ity of 00:00: [place] Medical Branch Tobacco Tobacco Disease Active Overview: Univ ers use use 3-15 Quit with ity of 00:00: [place] Medical Branch Tobacco Tobacco Disease Active Overview: Univ ers use in use in 3-15 Formattin ity of 00:00: g of this [place] 00 note Medical might be Branch different from the original. Reports 1pk/day up until 3 days ago, reports quit History of History of Disease Active Overview : Univers 3-15 Delivery ity of delivery delivery 00:00: at 35 [place] 00 weeks Medical Branch Other Other Disease Active Univers depression depression 5-14 it y of 00:00: [address] Allergies, Adverse Reactions, Alerts Allergy Allergy Status Severity Reaction(s) Onset Inactive Treating Comm ents Source Name Type Date Date Clinician doxycycl DA Active U NAUSEA/VOMIT HC A ine ING; 5-18 [place] DIZZINESS 00:00: [facility] 00 are [facility] Doxycycl Propensi Active Nausea Univer s ine ty to and/or 8-08 ity of adverse Vomiting 00:00: [place] reaction 00 Medical s [place] DOXYCYCL DRUG Active N/V Univers INE INGREDI 8-08 ity of 00:00: [address] NO KNOWN Drug Active Univers ALLERGIE Class ity of S [facility] Social History Social Habit Start Date Stop Date Quantity Comments Source ASSERTION 2020-07-28 University of 00:00:00 [facility] Exposure to 2022-12-13 2022-12-23 Not sure [facility] SARS-CoV-2 (event) 00:00:00 00:18:00 [facility] Alcohol intake 2021-04-08 2021-04-08 Current University of 00:00:00 00:00:00 non-drinker of [facility] alcohol (finding) Branch Cigarettes smoked 2020-08-20 2020-08-20 Univers ity of current (pack per 00:00:00 00:00:00 [facility] ed) - Reported Branch Tobacco use and 2020-08-20 2020-08-20 Smokeless tobacco Un iversity of exposure 00:00:00 00:00:00 non-user [facility] Tobacco Comment 2018-10-20 2018-10-20 was smoking 1 Univer sity of 00:00:00 00:00:00 cigarrette a day [facility] [place] History of tobacco 2020-08-17 2018-10-06 Cigarette Smoker University of use 00:00:00 00:00:00 [facility] 2000 [facility] Smoking Status Start Date Stop Date Source Ex-smoker 2020-08-20 00:00:00 2020-08-20 00:00:00 Universi ty of [facility] Current every day 2020-04-01 00:00:00 [facility] smoker [facility] Medications Ordered Filled Start Stop Current Ordering [...] Routine, IV line flushing dicyclomine 2022-0 Yes [id number] 20mg Take 1 Univers 20 mg 5-18 tablet by ity of tablet 00:00: mouth every 6 Medical (six) Branch hours as needed for Abdominal pain. ketorolac 2022-0 Yes [id number] 10mg Take 1 Un alex 10 mg 5-18 tablet by ity of tablet 00:00: mouth [place] [address] every 6 Medical (six) Branch hours as needed for Pain (scale 7-10). ondansetron 2023-0 Yes [id number] 4mg Take 1 Univers (ZOFRAN) 4 5-18 tablet by ity of mg tablet 00:00: mouth [place] 00 every 8 Medical (eight) Branch hours as needed for Nausea and Vomiting (N/V). sulfamethox 2020- No [id number] 1{tbl} Take 1 Univers azole-trime 04-14 tablet by it y of thoprim 00:00: 04:59 mouth 2 [place] 400-80 mg 00 :00 (two) Medical per tablet times Branch daily for 5 days. sulfamethox 2020- No [id number] 1{tbl} Take 1 Univers azole-trime 04-14 tablet by it y of thoprim 00:00: 04:59 mouth 2 [place] 400-80 mg 00 :00 (two) Medical per tablet times Branch daily for 5 days. sulfamethox 2020- No [id number] 1{tbl} Take 1 Univers azole-trime 04-14 tablet by it y of thoprim 00:00: 04:59 mouth 2 [place] 400-80 mg 00 :00 (two) Medical per tablet times Branch daily for 5 days. sulfamethox 2020- No [id number] 1{tbl} Take 1 Univers azole-trime 04-14 tablet by it y of thoprim 00:00: 04:59 mouth 2 [place] 400-80 mg 00 :00 (two) Medical per tablet times Branch daily for 5 days. sulfamethox 2020- No [id number] 1{tbl} Take 1 Univers azole-trime 04-14 tablet by it y of thoprim 00:00: 04:59 mouth 2 [place] 400-80 mg 00 :00 (two) Medical per tablet times Branch daily for 5 days. sulfamethox 2020- No [id number] 1{tbl} Take 1 Univers azole-trime 04-14 tablet by it y of thoprim 00:00: 04:59 mouth 2 [place] 400-80 mg 00 :00 (two) Medical per tablet times Branch daily for 5 days. docusate Yes [id number] 240mg Take 1 U nivers calcium 240 9- capsule by it y of mg capsule 00:00: mouth once [place] 00 daily as Medical needed for Branch Constipati on. Yes [id number] 1{tbl} Take 1 Univers vitamin 9-02 tablet by ity of w/FA tablet 00:00: mouth [place] 00 daily. Medical Branch ferrous Yes [id number] 325mg Take 1 Un alex sulfate 325 9-02 tablet by ity of mg (65 mg 00:00: mouth 2 [place] iron) 00 (two) Medical tablet times Branch daily. ibuprofen Yes [id number] 600mg Take 1 Univers 600 mg 9-02 tablet by ity of tablet 00:00: mouth [place] 00 every 6 Medical (six) Branch hours as needed (Pain). Take with food or milk. norethindro Yes [id number] .35mg Take 1 Univers ne 0.35 mg 9-02 tablet by ity of tablet 00:00: mouth [place] 00 daily. Medical Branch docusate Yes [id number] 240mg Take 1 U nivers calcium 240 9-02 capsule by it y of mg capsule 00:00: mouth once [place] 00 daily as Medical needed for Branch Constipati on. Yes [id number] 1{tbl} Take 1 Univers vitamin 9-02 tablet by ity of w/FA tablet 00:00: mouth [place] 00 daily. Medical Branch ferrous Yes [id number] 325mg Take 1 Un alex sulfate 325 9-02 tablet by ity of mg (65 mg 00:00: mouth 2 [place] iron) 00 (two) Medical tablet times Branch daily. ibuprofen Yes [id number] 600mg Take 1 Univers 600 mg 9-02 tablet by ity of tablet 00:00: mouth [place] 00 every 6 Medical (six) Branch hours as needed (Pain). Take with food or milk. norethindro Yes [id number] .35mg Take 1 Univers ne 0.35 mg 9-02 tablet by ity of tablet 00:00: mouth [place] 00 daily. Medical Branch docusate Yes [id number] 240mg Take 1 U nivers calcium 240 9-02 capsule by it y of mg capsule 00:00: mouth once [place] 00 daily as Medical needed for Branch Constipati on. 2021-0 Yes [id number] 1{tbl} Take 1 Univers vitamin 9-02 tablet by ity of w/FA tablet 00:00: mouth [place] 00 daily. Medical Branch ferrous Yes [id number] 325mg Take 1 Un alex sulfate 325 9-02 tablet by ity of mg (65 mg 00:00: mouth 2 [place] iron) 00 (two) Medical tablet times Branch daily. ibuprofen Yes [id number] 600mg Take 1 Univers 600 mg 9-02 tablet by ity of tablet 00:00: mouth [place] 00 every 6 Medical (six) Branch hours as needed (Pain). Take with food or milk. norethindro Yes [id number] .35mg Take 1 Univers ne 0.35 mg 9-02 tablet by ity of tablet 00:00: mouth [place] 00 daily. Medical Branch docusate Yes [id number] 240mg Take 1 U nivers calcium 240 9-02 capsule by it y of mg capsule 00:00: mouth once [place] 00 daily as Medical needed for Branch Constipati on. Yes [id number] 1{tbl} Take 1 Univers vitamin 9-02 tablet by ity of w/FA tablet 00:00: mouth [place] 00 daily. Medical Branch ferrous Yes [id number] 325mg Take 1 Un alex sulfate 325 9-02 tablet by ity of mg (65 mg 00:00: mouth 2 [place] iron) 00 (two) Medical tablet times Branch daily. ibuprofen Yes [id number] 600mg Take 1 Univers 600 mg 9-02 tablet by ity of tablet 00:00: mouth [place] 00 every 6 Medical (six) Branch hours as needed (Pain). Take with food or milk. norethindro Yes [id number] .35mg Take 1 Univers ne 0.35 mg 9-02 tablet by ity of tablet 00:00: mouth [place] 00 daily. Medical Branch docusate 0 Yes [id number] 240mg Take 1 U nivers calcium 240 9-02 capsule by it y of mg capsule 00:00: mouth once [place] 00 daily as Medical needed for Branch Constipati on. 0 Yes [id number] 1{tbl} Take 1 Univers vitamin 9-02 tablet by ity of w/FA tablet 00:00: mouth [place] 00 daily. Medical Branch ferrous Yes [id number] 325mg Take 1 Un alex sulfate 325 9-02 tablet by ity of mg (65 mg 00:00: mouth 2 [place] iron) 00 (two) Medical tablet times Branch daily. ibuprofen Yes [id number] 600mg Take 1 Univers 600 mg 9-02 tablet by ity of tablet 00:00: mouth [place] 00 every 6 Medical (six) Branch hours as needed (Pain). Take with food or milk. norethindro Yes [id number] .35mg Take 1 Univers ne 0.35 mg 9-02 tablet by ity of tablet 00:00: mouth [place] 00 daily. Medical Branch docusate Yes [id number] 240mg Take 1 U nivers calcium 240 9-02 capsule by it y of mg capsule 00:00: mouth once [place] 00 daily as Medical needed for Branch Constipati on. Yes [id number] 1{tbl} Take 1 Univers vitamin 9-02 tablet by ity of w/FA tablet 00:00: mouth [place] 00 daily. Medical Branch ferrous Yes [id number] 325mg Take 1 Un alex sulfate 325 9-02 tablet by ity of mg (65 mg 00:00: mouth 2 [place] iron) 00 (two) Medical tablet times Branch daily. ibuprofen Yes [id number] 600mg Take 1 Univers 600 mg 9-02 tablet by ity of tablet 00:00: mouth [place] 00 every 6 Medical (six) Branch hours as needed (Pain). Take with food or milk. norethindro Yes [id number] .35mg Take 1 Univers ne 0.35 mg 9-02 tablet by ity of tablet 00:00: mouth [place] 00 daily. Medical Branch docusate Yes [id number] 240mg Take 1 U nivers calcium 240 9-02 capsule by it y of mg capsule 00:00: mouth once [place] 00 daily as Medical needed for Branch Constipati on. 2020- Yes [id number] 1{tbl} Take 1 Univers vitamin 9-02 tablet by ity of w/FA tablet 00:00: mouth [place] 00 daily. Medical Branch ferrous Yes [id number] 325mg Take 1 Un alex sulfate 325 9-02 tablet by ity of mg (65 mg 00:00: mouth 2 [place] iron) 00 (two) Medical tablet times Branch daily. ibuprofen Yes [id number] 600mg Take 1 Univers 600 mg 9-02 tablet by ity of tablet 00:00: mouth [place] 00 every 6 Medical (six) Branch hours as needed (Pain). Take with food or milk. norethindro Yes [id number] .35mg Take 1 Univers ne 0.35 mg 9-02 tablet by ity of tablet 00:00: mouth [place] 00 daily. Medical Branch docusate Yes [id number] 240mg Take 1 U nivers calcium 240 9-02 capsule by it y of mg capsule 00:00: mouth once [place] 00 daily as Medical needed for Branch Constipati on. Yes [id number] 1{tbl} Take 1 Univers vitamin 9-02 tablet by ity of w/FA tablet 00:00: mouth [place] 00 daily. Medical Branch ferrous Yes [id number] 325mg Take 1 Un alex sulfate 325 9-02 tablet by ity of mg (65 mg 00:00: mouth 2 [place] iron) 00 (two) Medical tablet times Branch daily. ibuprofen Yes [id number] 600mg Take 1 Univers 600 mg 9-02 tablet by ity of tablet 00:00: mouth [place] 00 every 6 Medical (six) Branch hours as needed (Pain). Take with food or milk. norethindro Yes [id number] .35mg Take 1 Univers ne 0.35 mg 9-02 tablet by ity of tablet 00:00: mouth [place] 00 daily. Medical Branch docusate Yes [id number] 240mg Take 1 U nivers calcium 240 9-02 capsule by it y of mg capsule 00:00: mouth once [place] 00 daily as Medical needed for Branch Constipati on. 2020- Yes [id number] 1{tbl} Take 1 Univers vitamin 9-02 tablet by ity of w/FA tablet 00:00: mouth [place] 00 daily. Medical Branch ferrous 2020-0 Yes [id number] 325mg Take 1 Un alex sulfate 325 9-02 tablet by ity of mg (65 mg 00:00: mouth 2 [place] iron) 00 (two) Medical tablet times Branch daily. ibuprofen 2020-0 Yes [id number] 600mg Take 1 Univers 600 mg 9-02 tablet by ity of tablet 00:00: mouth [place] 00 every 6 Medical (six) Branch hours as needed (Pain). Take with food or milk. norethindro Yes [id number] .35mg Take 1 Univers ne 0.35 mg 9-02 tablet by ity of tablet 00:00: mouth [place] 00 daily. Medical Branch docusate Yes [id number] 240mg Take 1 U nivers calcium 240 9-02 capsule by it y of mg capsule 00:00: mouth once [place] 00 daily as Medical needed for Branch Constipati on. Yes [id number] 1{tbl} Take 1 Univers vitamin 9-02 tablet by ity of w/FA tablet 00:00: mouth [place] 00 daily. Medical Branch ferrous Yes [id number] 325mg Take 1 Un alex sulfate 325 9-02 tablet by ity of mg (65 mg 00:00: mouth 2 [place] iron) 00 (two) Medical tablet times Branch daily. ibuprofen Yes [id number] 600mg Take 1 Univers 600 mg 9-02 tablet by ity of tablet 00:00: mouth [place] 00 every 6 Medical (six) Branch hours as needed (Pain). Take with food or milk. norethindro Yes [id number] .35mg Take 1 Univers ne 0.35 mg 9-02 tablet by ity of tablet 00:00: mouth [place] 00 daily. Medical Branch cephALEXin 202- No [id number] 500mg Take 1 Univers 500 mg 03-15 [id number] tablet by ity o f tablet 00:00: 04:59 mouth 4 [place] 00 :00 (four) Medical times Branch daily for 7 days. ferrous Yes [id number] 325mg Take 1 Un alex sulfate 325 6-11 tablet by ity of mg (65 mg 00:00: mouth 2 [place] iron) 00 (two) Medical tablet times Branch daily. ascorbic 2020-0 Yes [id number] 500mg Take 1 U nivers acid, 6-11 tablet by ity of vitamin C, 00:00: mouth 3 [place] 500 mg 00 (three) Medical tablet times Branch daily. ferrous 2020- Yes [id number] 325mg Take 1 Un alex sulfate 325 6-11 tablet by ity of mg (65 mg 00:00: mouth 2 [place] iron) 00 (two) Medical tablet times Branch daily. ascorbic Yes [id number] 500mg Take 1 U nivers acid, 6-11 tablet by ity of vitamin C, 00:00: mouth 3 [place] 500 mg 00 (three) Medical tablet times Branch daily. ferrous Yes [id number] 325mg Take 1 Un alex sulfate 325 6-11 tablet by ity of mg (65 mg 00:00: mouth 2 [place] iron) 00 (two) Medical tablet times Branch daily. ascorbic Yes [id number] 500mg Take 1 U nivers acid, 6-11 tablet by ity of vitamin C, 00:00: mouth 3 [place] 500 mg 00 (three) Medical tablet times Branch daily. ferrous Yes [id number] 325mg Take 1 Un alex sulfate 325 6-11 tablet by ity of mg (65 mg 00:00: mouth 2 [place] iron) 00 (two) Medical tablet times Branch daily. ascorbic Yes [id number] 500mg Take 1 U nivers acid, 6-11 tablet by ity of vitamin C, 00:00: mouth 3 [place] 500 mg 00 (three) Medical tablet times Branch daily. ferrous Yes [id number] 325mg Take 1 Un alex sulfate 325 6-11 tablet by ity of mg (65 mg 00:00: mouth 2 [place] iron) 00 (two) Medical tablet times Branch daily. ascorbic Yes [id number] 500mg Take 1 U nivers acid, 6-11 tablet by ity of vitamin C, 00:00: mouth 3 [place] 500 mg 00 (three) Medical tablet times Branch daily. ferrous Yes [id number] 325mg Take 1 Un alex sulfate 325 6-11 tablet by ity of mg (65 mg 00:00: mouth 2 [place] iron) 00 (two) Medical tablet times Branch daily. ascorbic Yes [id number] 500mg Take 1 U nivers acid, 6-11 tablet by ity of vitamin C, 00:00: mouth 3 [place] 500 mg 00 (three) Medical tablet times Branch daily. ferrous Yes [id number] 325mg Take 1 Un alex sulfate 325 6-11 tablet by ity of mg (65 mg 00:00: mouth 2 [place] iron) 00 (two) Medical tablet times Branch daily. ascorbic Yes [id number] 500mg Take 1 U nivers acid, 6-11 tablet by ity of vitamin C, 00:00: mouth 3 [place] 500 mg 00 (three) Medical tablet times Branch daily. ferrous Yes [id number] 325mg Take 1 Un alex sulfate 325 6-11 tablet by ity of mg (65 mg 00:00: mouth 2 [place] iron) 00 (two) Medical tablet times Branch daily. ascorbic Yes [id number] 500mg Take 1 U nivers acid, 6-11 tablet by ity of vitamin C, 00:00: mouth 3 [place] 500 mg 00 (three) Medical tablet times Branch daily. ferrous Yes [id number] 325mg Take 1 Un alex sulfate 325 6-11 tablet by ity of mg (65 mg 00:00: mouth 2 [place] iron) 00 (two) Medical tablet times Branch daily. ascorbic Yes [id number] 500mg Take 1 U nivers acid, 6-11 tablet by ity of vitamin C, 00:00: mouth 3 [place] 500 mg 00 (three) Medical tablet times Branch daily. ferrous Yes [id number] 325mg Take 1 Un alex sulfate 325 6-11 tablet by ity of mg (65 mg 00:00: mouth 2 [place] iron) 00 (two) Medical tablet times Branch daily. ascorbic Yes [id number] 500mg Take 1 U nivers acid, 6-11 tablet by ity of vitamin C, 00:00: mouth 3 [place] 500 mg 00 (three) Medical tablet times Branch daily. ferrous Yes [id number] 325mg Take 1 Un alex sulfate 325 6-11 tablet by ity of mg (65 mg 00:00: mouth 2 [place] iron) 00 (two) Medical tablet times Branch daily. ascorbic Yes [id number] 500mg Take 1 U nivers acid, 6-11 tablet by ity of vitamin C, 00:00: mouth 3 [place] 500 mg 00 (three) Medical tablet times Branch daily. ascorbic Yes [id number] 500mg Take 1 U nivers acid, 6-11 tablet by ity of vitamin C, 00:00: mouth 3 [place] 500 mg 00 (three) Medical tablet times Branch daily. ascorbic Yes [id number] 500mg Take 1 U nivers acid, 6-11 tablet by ity of vitamin C, 00:00: mouth 3 [place] 500 mg 00 (three) Medical tablet times Branch daily. ascorbic Yes [id number] 500mg Take 1 U nivers acid, 6-11 tablet by ity of vitamin C, 00:00: mouth 3 [place] 500 mg 00 (three) Medical tablet times Branch daily. ascorbic Yes [id number] 500mg Take 1 U nivers acid, 6-11 tablet by ity of vitamin C, 00:00: mouth 3 [place] 500 mg 00 (three) Medical tablet times Branch daily. ascorbic Yes [id number] 500mg Take 1 U nivers acid, 6-11 tablet by ity of vitamin C, 00:00: mouth 3 [place] 500 mg 00 (three) Medical tablet times Branch daily. ascorbic Yes [id number] 500mg Take 1 U nivers acid, 6-11 tablet by ity of vitamin C, 00:00: mouth 3 [place] 500 mg 00 (three) Medical tablet times Branch daily. ascorbic Yes [id number] 500mg Take 1 U nivers acid, 6-11 tablet by ity of vitamin C, 00:00: mouth 3 [place] 500 mg 00 (three) Medical tablet times Branch daily. ascorbic Yes [id number] 500mg Take 1 U nivers acid, 6-11 tablet by ity of vitamin C, 00:00: mouth 3 [place] 500 mg 00 (three) Medical tablet times Branch daily. ascorbic Yes [id number] 500mg Take 1 U nivers acid, 6-11 tablet by ity of vitamin C, 00:00: mouth 3 [place] 500 mg 00 (three) Medical tablet times Branch daily. ascorbic Yes [id number] 500mg Take 1 U nivers acid, 6-11 tablet by ity of vitamin C, 00:00: mouth 3 [place] 500 mg 00 (three) Medical tablet times Branch daily. ascorbic Yes [id number] 500mg Take 1 U nivers acid, 6-11 tablet by ity of vitamin C, 00:00: mouth 3 [place] 500 mg 00 (three) Medical tablet times Branch daily. ascorbic Yes [id number] 500mg Take 1 U nivers acid, 6-11 tablet by ity of vitamin C, 00:00: mouth 3 [place] 500 mg 00 (three) Medical tablet times Branch daily. ascorbic Yes [id number] 500mg Take 1 U nivers acid, 6-11 tablet by ity of vitamin C, 00:00: mouth 3 [place] 500 mg 00 (three) Medical tablet times Branch daily. ascorbic 0 Yes [id number] 500mg Take 1 U nivers acid, 6-11 tablet by ity of vitamin C, 00:00: mouth 3 [place] 500 mg 00 (three) Medical tablet times Branch daily. ferrous 2020- No [id number] 325mg Take 1 U nivers sulfate 325 [...] Medical on nasal Branch spray HYDROXYprog Yes [id number] 250mg Univers est(PF)(pre 4-07 ity of g presv) 19:40: [place] (HANS) 00 Medical 250 mg/mL Branch (1 mL) injection 250 mg HYDROXYprog 0 Yes [id number] 250mg 250 mg, Univers est(PF)(pre -07 Intramuscu it y of g presv) 19:40: lar, [place] (HANS) 00 QWEEKLY, Medical 250 mg/mL First dose Bran ch (1 mL) on Wed injection 11/12/20 at 250 mg 1445, Until Discontinu ed, Routine HYDROXYprog 0 Yes [id number] 250mg Univers est(PF)(pre 4-07 ity of g presv) 19:40: [place] (HANS) 00 Medical 250 mg/mL Branch (1 mL) injection 250 mg HYDROXYprog 0 Yes [id number] 250mg 250 mg, Univers est(PF)(pre 11-12 Intramuscu it y of g presv) 19:40: [place] (HANS) 00 QWEEKLY, Medical 250 mg/mL First dose Bran ch (1 mL) on Wed injection 11/12/20 at 250 mg 1445, Until Discontinu ed, Routine HYDROXYprog 2021-0 Yes [id number] 250mg Univers est(PF)(pre - ity of g presv) 19:40: [place] (HANS) 00 Medical 250 mg/mL Branch (1 mL) injection 250 mg HYDROXYprog 2021-0 Yes [id number] 250mg Univers est(PF)(pre - ity of g presv) 19:40: [place] ([facility]) 00 Medical 250 mg/mL Branch (1 mL) injection 250 mg HYDROXYprog 2021-0 Yes [id number] 250mg [facility](PF)(pre 11-12 ity of g presv) 19:40: [place] ([facility]) 00 Medical 250 mg/mL Branch (1 mL) injection 250 mg HYDROXYprog 2021-0 Yes [id number] 250mg 250 mg, [facility] est(PF)(pre 11-12 [facility] it y of g presv) 19:40: [place]anne perez ([facility]) 00 QWEEKLY, Medical 250 mg/mL First dose Bran ch (1 mL) on Wed injection 11/12/20 at 250 mg 1445, Until Discontinu ed, Routine HYDROXYprog 2021-0 Yes [id number] 250mg [facility] est(PF)(pre 11-12 ity of g presv) 19:40: [place] ([facility]) 00 Medical 250 mg/mL Branch (1 mL) injection 250 mg HYDROXYprog 2021-0 Yes [id number] 250mg [facility] est(PF)(pre - ity of g presv) 19:40: [place] ([facility]) 00 Medical 250 mg/mL Branch (1 mL) injection 250 mg HYDROXYprog 2021-0 Yes [id number] 250mg 250 mg, [facility] est(PF)(pre - [facility] y of g presv) 19:40: lar, [place]oxanne ([facility]) 00 QWEEKLY, Medical 250 mg/mL First dose Bran ch (1 mL) on Wed injection 11/12/20 at 250 mg 1445, Until Discontinu ed, Routine HYDROXYprog 2021-0 Yes [id number] 250mg [facility] est(PF)(pre 4-07 ity of g presv) 19:40: [place] ([facility]) 00 Medical 250 mg/mL Branch (1 mL) injection 250 mg HYDROXYprog 2021-0 Yes [id number] 250mg [facility] est(PF)(pre 4-07 ity of g presv) 19:40: [place] ([facility]) 00 Medical 250 mg/mL Branch (1 mL) injection 250 mg HYDROXYprog 2021-0 Yes [id number] 250mg 250 mg, [facility] est(PF)(pre 4-07 Intramuscu it y of g presv) 19:40: lar [place] ([facility]) 00 QWEEKLY, Medical 250 mg/mL First dose Bran ch (1 mL) on Wed injection 11/12/20 at 250 mg 1445, Until Discontinu ed, Routine HYDROXYprog 2021-0 Yes [id number] 250mg [facility] est(PF)(pre - ity of g presv) 19:40: [place] ([facility]) 00 Medical 250 mg/mL Branch (1 mL) injection 250 mg HYDROXYprog 2021-0 Yes [id number] 250mg [facility] est(PF)(pre 4- ity of g presv) 19:40: [place] ([facility]) 00 Medical 250 mg/mL Branch (1 mL) injection 250 mg HYDROXYprog 2021-0 Yes [id number] 250mg 250 mg, [facility] est(PF)(pre - Intramus[facility] it y of g presv) 19:40: lar, [place] ([facility]) 00 QWEEKLY, Medical 250 mg/mL First dose Bran ch (1 mL) on Wed injection 11/12/20 at 250 mg 1445, Until Discontinu ed, Routine HYDROXYprog 2021-0 Yes [id number] 250mg [facility] est(PF)(pre 4-07 ity of g presv) 19:40: [place] ([facility]) 00 Medical 250 mg/mL Branch (1 mL) injection 250 mg HYDROXYprog 2021-0 Yes [id number] 250mg [facility] est(PF)(pre 4-07 ity of g presv) 19:40: [place] ([facility]) 00 Medical 250 mg/mL Branch (1 mL) injection 250 mg HYDROXYprog 2021-0 Yes [id number] 250mg [facility] est(PF)(pre 4-07 ity of g presv) 19:40: [place] ([facility]) 00 Medical 250 mg/mL Branch (1 mL) injection 250 mg HYDROXYprog 2021-0 Yes [id number] 250mg 250 mg, [facility] est(PF)(pre 4-07 Intramuscu it y of g presv) 19:40: lar, [place] ([facility]) 00 QWEEKLY, Medical 250 mg/mL First dose Bran ch (1 mL) on Wed injection 11/12/20 at 250 mg 1445, Until Discontinu ed, Routine HYDROXYprog 2021-0 Yes [id number] 250mg [facility] est(PF)(pre - ity of g presv) 19:40: [place] ([facility]) 00 Medical 250 mg/mL Branch (1 mL) injection 250 mg HYDROXYprog 2021-0 Yes [id number] 250mg [facility] est(PF)(pre - ity of g presv) 19:40: [place] ([facility]) 00 Medical 250 mg/mL Branch (1 mL) injection 250 mg HYDROXYprog 2021-0 Yes [id number] 250mg 250 mg, [facility] est(PF)(pre 11-12 Intramuscu it y of g presv) 19:40: lar, [place] ([facility]) 00 QWEEKLY, Medical 250 mg/mL First dose Bran ch (1 mL) on Wed injection 11/12/20 at 250 mg 1445, Until Discontinu ed, Routine HYDROXYprog 2021-0 Yes [id number] 250mg [facility] est(PF)(pre - ity of g presv) 19:40: [place] ([facility]) 00 Medical 250 mg/mL Branch (1 mL) injection 250 mg HYDROXYprog 2021-0 Yes [id number] 250mg [facility] est(PF)(pre - ity of g presv) 19:40: [place] ([facility]) 00 Medical 250 mg/mL Branch (1 mL) injection 250 mg HYDROXYprog 2021-0 Yes [id number] 250mg 250 mg, [facility] est(PF)(pre - Intramuscu it y of g presv) 19:40: lar, [place] ([facility]) 00 QWEEKLY, Medical 250 mg/mL First dose Bran ch (1 mL) on Wed injection 11/12/20 at 250 mg 1445, Until Discontinu ed, Routine HYDROXYprog 2021-0 Yes [id number] 250mg [facility] est(PF)(pre 4- ity of g presv) 19:40: [place] ([facility]) 00 Medical 250 mg/mL Branch (1 mL) injection 250 mg HYDROXYprog 2021-0 Yes [id number] 250mg [facility] est(PF)(pre 4- ity of g presv) 19:40: [place] ([facility]) 00 Medical 250 mg/mL Branch (1 mL) injection 250 mg HYDROXYprog 2021-0 Yes [id number] 250mg [facility] est(PF)(pre 4- ity of g presv) 19:40: [place] ([facility]) 00 Medical 250 mg/mL Branch (1 mL) injection 250 mg HYDROXYprog 2021-0 Yes [id number] 250mg [facility] est(PF)(pre - ity of g presv) 19:40: [place] ([facility]) 00 Medical 250 mg/mL Branch (1 mL) injection 250 mg HYDROXYprog 2021-0 Yes [id number] 250mg 250 mg, [facility] est(PF)(pre - Intramuscu it y of g presv) 19:40: lar, [place] ([facility]) 00 QWEEKLY, Medical 250 mg/mL First dose Bran ch (1 mL) on Wed injection 11/12/20 at 250 mg 1445, Until Discontinu ed, Routine HYDROXYprog 2021-0 Yes [id number] 250mg [facility] est(PF)(pre - ity of g presv) 19:40: [place] ([facility]) 00 Medical 250 mg/mL Branch (1 mL) injection 250 mg HYDROXYprog 2021-0 Yes [id number] 250mg 250 mg, [facility] est(PF)(pre - Intramuscu it y of g presv) 19:40: lar, [place] ([facility]) 00 QWEEKLY, Medical 250 mg/mL First dose Bran ch (1 mL) on Wed injection 11/12/20 at 250 mg 1445, Until Discontinu ed, Routine HYDROXYprog 2021-0 Yes [id number] 250mg [facility] est(PF)(pre 4- ity of g presv) 19:40: [place] ([facility]) 00 Medical 250 mg/mL Branch (1 mL) injection 250 mg HYDROXYprog 2021-0 Yes [id number] 250mg 250 mg, [facility] est(PF)(pre 4-07 Intramuscu it y of g presv) 19:40: lar, [place] ([facility]) 00 QWEEKLY, Medical 250 mg/mL First dose Bran ch (1 mL) on Tue injection 11/12/20 at 250 mg 1445, Until Discontinu ed, Routine HYDROXYprog 2021-0 Yes [id number] 250mg [facility] est(PF)(pre 4-07 ity of g presv) 19:40: [place] ([facility]) 00 Medical 250 mg/mL Branch (1 mL) injection 250 mg HYDROXYprog 2021-0 Yes [id number] 250mg 250 mg, [facility] est(PF)(pre 4- Intramuscu it y of g presv) 19:40: ana [place] ([facility]) 00 QWEEKLY, Medical 250 mg/mL First dose Bran ch (1 mL) on Tue injection 11/12/20 at 250 mg 1445, Until Discontinu ed, Routine HYDROXYprog 2021-0 Yes [id number] 250mg [facility] est(PF)(pre 4-07 ity of g presv) 19:40: [place] ([facility]) 00 Medical 250 mg/mL Branch (1 mL) injection 250 mg HYDROXYprog 2021-0 Yes [id number] 250mg [facility] est(PF)(pre 4-07 ity of g presv) 19:40: [place] ([facility]) 00 Medical 250 mg/mL Branch (1 mL) injection 250 mg HYDROXYprog 2021-0 Yes [id number] 250mg [facility] est(PF)(pre 4-07 ity of g presv) 19:40: [place] ([facility]) 00 Medical 250 mg/mL Branch (1 mL) injection 250 mg HYDROXYprog 2021-0 Yes [id number] 250mg [facility] est(PF)(pre 4-07 ity of g presv) 19:40: [place] ([facility]) 00 Medical 250 mg/mL Branch (1 mL) injection 250 mg HYDROXYprog 2021-0 Yes [id number] 250mg [facility] est(PF)(pre 4-07 ity of g presv) 19:40: [place] ([facility]) 00 Medical 250 mg/mL Branch (1 mL) injection 250 mg HYDROXYprog 2021-0 Yes [id number] 250mg [facility] est(PF)(pre - ity of g presv) 19:40: [facility]) 00 Medical 250 mg/mL Branch (1 mL) injection 250 mg HYDROXYprog 2021-0 Yes [id number] 250mg 250 mg, [facility] est(PF)(pre 11-12 Intramuscu it y of g presv) 19:40: ana [facility]) 00 QWEEKLY, Medical 250 mg/mL First dose Bran ch (1 mL) on Wed injection 11/12/20 at 250 mg 1445, Until Discontinu ed, Routine HYDROXYprog 2021-0 Yes [id number] 250mg [facility] est(PF)(pre 11-12 ity of g presv) 19:40: [facility]) 00 Medical 250 mg/mL Branch (1 mL) injection 250 mg HYDROXYprog 2021-0 Yes [id number] 250mg 250 mg, [facility] est(PF)(pre 11-12 Intramuscu it y of g presv) 19:40: ana [place] ([facility]) 00 QWEEKLY, Medical 250 mg/mL First dose Bran ch (1 mL) on Wed injection 11/12/20 at 250 mg 1445, Until Discontinu ed, Routine HYDROXYprog 2021-0 Yes [id number] 250mg [facility] est(PF)(pre 11-12 ity of g presv) 19:40: [facility]) 00 Medical 250 mg/mL Branch (1 mL) injection 250 mg HYDROXYprog 2021-0 Yes [id number] 250mg 250 mg, [facility] est(PF)(pre 11-12 Intramuscu it y of g presv) 19:40: ana [place] ([facility]) 00 QWEEKLY, Medical 250 mg/mL First dose Bran ch (1 mL) on Wed injection 11/12/20 at 250 mg 1445, Until Discontinu ed, Routine HYDROXYprog 2021-0 Yes [id number] 250mg [facility] est(PF)(pre - ity of g presv) 19:40: [facility]) 00 Medical 250 mg/mL Branch (1 mL) injection 250 mg HYDROXYprog 2021-0 Yes [id number] 250mg 250 mg, [facility] est(PF)(pre - Intramuscu it y of g presv) 19:40: ana [place] ([facility]) 00 QWEEKLY, Medical 250 mg/mL First dose Bran ch (1 mL) on Wed injection 11/12/20 at 250 mg 1445, Until Discontinu ed, Routine HYDROXYprog 2021-0 Yes [id number] 250mg [facility] est(PF)(pre - ity of g presv) 19:40: [place] ([facility]) 00 Medical 250 mg/mL Branch (1 mL) injection 250 mg HYDROXYprog 2021-0 Yes [id number] 250mg 250 mg, [facility] est(PF)(pre 11-12 Intramuscu it y of g presv) 19:40: ana [place] ([facility]) 00 QWEEKLY, Medical 250 mg/mL First dose Bran ch (1 mL) on Wed injection 11/12/20 at 250 mg 1445, Until Discontinu ed, Routine HYDROXYprog 2021-0 Yes [id number] 250mg [facility] est(PF)(pre 11-12 ity of g presv) 19:40: [place] ([facility]) 00 Medical 250 mg/mL Branch (1 mL) injection 250 mg HYDROXYprog 2021-0 Yes [id number] 250mg 250 mg, [facility] est(PF)(pre 11-12 Intramuscu it y of g presv) 19:40: Roxanne perez ([facility]) 00 QWEEKLY, Medical 250 mg/mL First dose Bran ch (1 mL) on Wed injection 11/12/20 at 250 mg 1445, Until Discontinu ed, Routine HYDROXYprog 2021-0 Yes [id number] 250mg [facility] est(PF)(pre 11-12 ity of g presv) 19:40: [place] ([facility]) 00 Medical 250 mg/mL Branch (1 mL) injection 250 mg HYDROXYprog 2021-0 Yes [id number] 250mg 250 mg, [facility] est(PF)(pre 11-12 Intramuscu it y of g presv) 19:40: Roxanne perez ([facility]) 00 QWEEKLY, Medical 250 mg/mL First dose Bran ch (1 mL) on Wed injection 11/12/20 at 250 mg 1445, Until Discontinu ed, Routine HYDROXYprog 2021-0 Yes [id number] 250mg [facility] est(PF)(pre -07 ity of g presv) 19:40: [place] ([facility]) 00 Medical 250 mg/mL Branch (1 mL) injection 250 mg HYDROXYprog 2021-0 Yes [id number] 250mg 250 mg, [facility] est(PF)(pre - Intramuscu it y of g presv) 19:40: ana [place] ([facility]) 00 QWEEKLY, Medical 250 mg/mL First dose Bran ch (1 mL) on Tue injection 11/12/20 at 250 mg 1445, Until Discontinu ed, Routine HYDROXYprog 2021-0 Yes [id number] 250mg [facility] est(PF)(pre 4- ity of g presv) 19:40: [place] ([facility]) 00 Medical 250 mg/mL Branch (1 mL) injection 250 mg HYDROXYprog 2021-0 Yes [id number] 250mg 250 mg, [facility] est(PF)(pre 11-12 Intramuscu it y of g presv) 19:40: ana [place] ([facility]) 00 QWEEKLY, Medical 250 mg/mL First dose Bran ch (1 mL) on Wed injection 11/12/20 at 250 mg 1445, Until Discontinu ed, Routine HYDROXYprog 2021-0 Yes [id number] 250mg [facility] est(PF)(pre 4- ity of g presv) 19:40: [place] ([facility]) 00 Medical 250 mg/mL Branch (1 mL) injection 250 mg HYDROXYprog 2021-0 Yes [id number] 250mg [facility] est(PF)(pre 4-07 ity of g presv) 19:40: [place] ([facility]) 00 Medical 250 mg/mL Branch (1 mL) injection 250 mg HYDROXYprog 2021-0 Yes [id number] 250mg [facility] est(PF)(pre 4-07 ity of g presv) 19:40: [place] ([facility]) 00 Medical 250 mg/mL Branch (1 mL) injection 250 mg HYDROXYprog 2021-0 Yes [id number] 250mg [facility] est(PF)(pre 4-07 ity of g presv) 19:40: [place] ([facility]) 00 Medical 250 mg/mL Branch (1 mL) injection 250 mg HYDROXYprog 2021-0 Yes [id number] 250mg [facility] est(PF)(pre 4-07 ity of g presv) 19:40: [place] ([facility]) 00 Medical 250 mg/mL Branch (1 mL) injection 250 mg proMETHazin 2020-0 Yes [id number] 25mg Take 1 Univers e 25 mg 2-18 tablet by ity of tablet 00:00: mouth [place] 00 every 6 Medical (six) Branch hours as needed for Nausea and Vomiting (N/V). proMETHazin 2020-0 Yes [id number] 25mg Take 1 Univers e 25 mg 2-18 tablet by ity of tablet 00:00: mouth [place] 00 every 6 Medical (six) Branch hours as needed for Nausea and Vomiting (N/V). proMETHazin 2020-0 Yes [id number] 25mg Take 1 Univers e 25 mg 2-18 tablet by ity of tablet 00:00: mouth [place] 00 every 6 Medical (six) Branch hours as needed for Nausea and Vomiting (N/V). proMETHazin 2020-0 Yes [id number] 25mg Take 1 Univers e 25 mg 2-18 tablet by ity of tablet 00:00: mouth [place] 00 every 6 Medical (six) Branch hours as needed for Nausea and Vomiting (N/V). proMETHazin 2020-0 Yes [id number] 25mg Take 1 Univers e 25 mg 2-18 tablet by ity of tablet 00:00: mouth [place] 00 every 6 Medical (six) Branch hours as needed for Nausea and Vomiting (N/V). proMETHazin 2020-0 Yes [id number] 25mg Take 1 Univers e 25 mg 2-18 tablet by ity of tablet 00:00: mouth [place] 00 every 6 Medical (six) Branch hours as needed for Nausea and Vomiting (N/V). proMETHazin 2020-0 Yes [id number] 25mg Take 1 Univers e 25 mg 2-18 tablet by ity of tablet 00:00: mouth [place] 00 every 6 Medical (six) Branch hours as needed for Nausea and Vomiting (N/V). proMETHazin 2020-0 Yes [id number] 25mg Take 1 Univers e 25 mg 2-18 tablet by ity of tablet 00:00: mouth [place] 00 every 6 Medical (six) Branch hours as needed for Nausea and Vomiting (N/V). proMETHazin 2020-0 Yes [id number] 25mg Take 1 Univers e 25 mg 2-18 tablet by ity of tablet 00:00: mouth [place] 00 every 6 Medical (six) Branch hours as needed for Nausea and Vomiting (N/V). proMETHazin 1-0 Yes [id number] 25mg Take 1 Univers e 25 mg 2-18 tablet by ity of tablet 00:00: mouth [place] 00 every 6 Medical (six) Branch hours as needed for Nausea and Vomiting (N/V). proMETHazin 2020-0 Yes [id number] 25mg Take 1 Univers e 25 mg 2-18 tablet by ity of tablet 00:00: mouth [place] 00 every 6 Medical (six) Branch hours as needed for Nausea and Vomiting (N/V). proMETHazin 2020-0 Yes [id number] 25mg Take 1 Univers e 25 mg 2-18 tablet by ity of tablet 00:00: mouth [place] 00 every 6 Medical (six) Branch hours as needed for Nausea and Vomiting (N/V). proMETHazin 2020-0 Yes [id number] 25mg Take 1 Univers e 25 mg 2-18 tablet by ity of tablet 00:00: mouth [place] 00 every 6 Medical (six) Branch hours as needed for Nausea and Vomiting (N/V). proMETHazin 2020-0 Yes [id number] 25mg Take 1 Univers e 25 mg 2-18 tablet by ity of tablet 00:00: mouth [place] 00 every 6 Medical (six) Branch hours as needed for Nausea and Vomiting (N/V). proMETHazin 2020-0 Yes [id number] 25mg Take 1 Univers e 25 mg 2-18 tablet by ity of tablet 00:00: mouth [place] 00 every 6 Medical (six) Branch hours as needed for Nausea and Vomiting (N/V). proMETHazin 2020-0 Yes [id number] 25mg Take 1 Univers e 25 mg 2-18 tablet by ity of tablet 00:00: mouth [place] 00 every 6 Medical (six) Branch hours as needed for Nausea and Vomiting (N/V). proMETHazin 2020-0 Yes [id number] 25mg Take 1 Univers e 25 mg 2-18 tablet by ity of tablet 00:00: mouth [place] 00 every 6 Medical (six) Branch hours as needed for Nausea and Vomiting (N/V). proMETHazin 1-0 Yes [id number] 25mg Take 1 Univers e 25 mg 2-18 tablet by ity of tablet 00:00: mouth [place] 00 every 6 Medical (six) Branch hours as needed for Nausea and Vomiting (N/V). proMETHazin 2020-0 Yes [id number] 25mg Take 1 Univers e 25 mg 2-18 tablet by ity of tablet 00:00: mouth [place] 00 every 6 Medical (six) Branch hours as needed for Nausea and Vomiting (N/V). proMETHazin 2020-0 Yes [id number] 25mg Take 1 Univers e 25 mg 2-18 tablet by ity of tablet 00:00: mouth [place] 00 every 6 Medical (six) Branch hours as needed for Nausea and Vomiting (N/V). proMETHazin 2020-0 Yes [id number] 25mg Take 1 Univers e 25 mg 2-18 tablet by ity of tablet 00:00: mouth [place] 00 every 6 Medical (six) Branch hours as needed for Nausea and Vomiting (N/V). proMETHazin 2020-0 Yes [id number] 25mg Take 1 Univers e 25 mg 2-18 tablet by ity of tablet 00:00: mouth [place] 00 every 6 Medical (six) Branch hours as needed for Nausea and Vomiting (N/V). proMETHazin 2020-0 Yes [id number] 25mg Take 1 Univers e 25 mg 2-18 tablet by ity of tablet 00:00: mouth [place] 00 every 6 Medical (six) Branch hours as needed for Nausea and Vomiting (N/V). proMETHazin 2020-0 Yes [id number] 25mg Take 1 Univers e 25 mg 2-18 tablet by ity of tablet 00:00: mouth [place] 00 every 6 Medical (six) Branch hours as needed for Nausea and Vomiting (N/V). proMETHazin 2020-0 Yes [id number] 25mg Take 1 Univers e 25 mg 2-18 tablet by ity of tablet 00:00: mouth [place] 00 every 6 Medical (six) Branch hours as needed for Nausea and Vomiting (N/V). proMETHazin 2020-0 Yes [id number] 25mg Take 1 Univers e 25 mg 2-18 tablet by ity of tablet 00:00: mouth [place] 00 every 6 Medical (six) Branch hours as needed for Nausea and Vomiting (N/V). proMETHazin 2020-0 Yes [id number] 25mg Take 1 Univers e 25 mg 2-18 tablet by ity of tablet 00:00: mouth [place] 00 every 6 Medical (six) Branch hours as needed for Nausea and Vomiting (N/V). proMETHazin 2020-0 Yes [id number] 25mg Take 1 Univers e 25 mg 2-18 tablet by ity of tablet 00:00: mouth [place] 00 every 6 Medical (six) Branch hours as needed for Nausea and Vomiting (N/V). proMETHazin 2020-0 Yes [id number] 25mg Take 1 Univers e 25 mg 2-18 tablet by ity of tablet 00:00: mouth [place] 00 every 6 Medical (six) Branch hours as needed for Nausea and Vomiting (N/V). proMETHazin 2020-0 Yes [id number] 25mg Take 1 Univers e 25 mg 2-18 tablet by ity of tablet 00:00: mouth [place] 00 every 6 Medical (six) Branch hours as needed for Nausea and Vomiting (N/V). proMETHazin 2020-0 Yes [id number] 25mg Take 1 Univers e 25 mg 2-18 tablet by ity of tablet 00:00: mouth [place] 00 every 6 Medical (six) Branch hours as needed for Nausea and Vomiting (N/V). proMETHazin 2020-0 Yes [id number] 25mg Take 1 Univers e 25 mg 2-18 tablet by ity of tablet 00:00: mouth [place] 00 every 6 Medical (six) Branch hours as needed for Nausea and Vomiting (N/V). proMETHazin 2020-0 Yes [id number] 25mg Take 1 Univers e 25 mg 2-18 tablet by ity of tablet 00:00: mouth [place] 00 every 6 Medical (six) Branch hours as needed for Nausea and Vomiting (N/V). proMETHazin 2020-0 Yes [id number] 25mg Take 1 Univers e 25 mg 2-18 tablet by ity of tablet 00:00: mouth [place] 00 every 6 Medical (six) Branch hours as needed for Nausea and Vomiting (N/V). proMETHazin 2020-0 Yes [id number] 25mg Take 1 Univers e 25 mg 2-18 tablet by ity of tablet 00:00: mouth [place] 00 every 6 Medical (six) Branch hours as needed for Nausea and Vomiting (N/V). proMETHazin 2020-0 Yes [id number] 25mg Take 1 Univers e 25 mg 2-18 tablet by ity of tablet 00:00: mouth [place] 00 every 6 Medical (six) Branch hours as needed for Nausea and Vomiting (N/V). proMETHazin 2020-0 Yes [id number] 25mg Take 1 Univers e 25 mg 2-18 tablet by ity of tablet 00:00: mouth [place] 00 every 6 Medical (six) Branch hours as needed for Nausea and Vomiting (N/V). proMETHazin 2020-0 Yes [id number] 25mg Take 1 Univers e 25 mg 2-18 tablet by ity of tablet 00:00: mouth [place] 00 every 6 Medical (six) Branch hours as needed for Nausea and Vomiting (N/V). proMETHazin 2020-0 Yes [id number] 25mg Take 1 Univers e 25 mg 2-18 tablet by ity of tablet 00:00: mouth [place] 00 every 6 Medical (six) Branch hours as needed for Nausea and Vomiting (N/V). proMETHazin 2020-0 Yes [id number] 25mg Take 1 Univers e 25 mg 2-18 tablet by ity of tablet 00:00: mouth [place] 00 every 6 Medical (six) Branch hours as needed for Nausea and Vomiting (N/V). proMETHazin 0 Yes [id number] 25mg Take 1 Univers e 25 mg 2-18 tablet by ity of tablet 00:00: mouth [place] 00 every 6 Medical (six) Branch hours as needed for Nausea and Vomiting (N/V). proMETHazin 2020-0 Yes [id number] 25mg Take 1 Univers e 25 mg 2-18 tablet by ity of tablet 00:00: mouth [place] 00 every 6 Medical (six) Branch hours as needed for Nausea and Vomiting (N/V). proMETHazin 2020-0 Yes [id number] 25mg Take 1 Univers e 25 mg 2-18 tablet by ity of tablet 00:00: mouth [place] 00 every 6 Medical (six) Branch hours as needed for Nausea and Vomiting (N/V). proMETHazin 2020-0 Yes [id number] 25mg Take 1 [facility] e 25 mg 2-18 tablet by ity of tablet 00:00: mouth [place] 00 every 6 Medical (six) Branch hours as needed for Nausea and Vomiting (N/V). proMETHazin 2020-0 Yes [id number] 25mg Take 1 [facility] e 25 mg 2-18 tablet by ity of tablet 00:00: mouth [place] 00 every 6 Medical (six) Branch hours as needed for Nausea and Vomiting (N/V). proMETHazin 2020-0 Yes [id number] 25mg Take 1 Univers e 25 mg 2-18 tablet by ity of tablet 00:00: mouth [place] 00 every 6 Medical (six) Branch hours as needed for Nausea and Vomiting (N/V). proMETHazin 2020-0 Yes [id number] 25mg Take 1 [facility] e 25 mg 2-18 tablet by ity of tablet 00:00: mouth [place] 00 every 6 Medical (six) Branch hours as needed for Nausea and Vomiting (N/V). proMETHazin 2020-0 Yes [id number] 25mg Take 1 [facility] e 25 mg 2-18 tablet by ity of tablet 00:00: mouth [place] 00 every 6 Medical (six) Branch hours as needed for Nausea and Vomiting (N/V). proMETHazin 2020-0 Yes [id number] 25mg Take 1 [facility] e 25 mg 2-18 tablet by ity of tablet 00:00: mouth [place] 00 every 6 Medical (six) Branch hours as needed for Nausea and Vomiting (N/V). proMETHazin 2020-0 Yes [id number] 25mg Take 1 [facility] e 25 mg 2-18 tablet by ity of tablet 00:00: mouth [place] 00 every 6 Medical (six) Branch hours as needed for Nausea and Vomiting (N/V). proMETHazin 2020-0 Yes [id number] 25mg Take 1 [facility] e 25 mg 2-18 tablet by ity of tablet 00:00: mouth [place] 00 every 6 Medical (six) Branch hours as needed for Nausea and Vomiting (N/V). proMETHazin 2020-0 Yes [id number] 25mg Take 1 [facility] e 25 mg 2-18 tablet by ity of tablet 00:00: mouth [place] 00 every 6 Medical (six) Branch hours as needed for Nausea and Vomiting (N/V). proMETHazin 2020-0 Yes [id number] 25mg Take 1 [facility] e 25 mg 2-18 tablet by ity of tablet 00:00: mouth [place] 00 every 6 Medical (six) Branch hours as needed for Nausea and Vomiting (N/V). proMETHazin 2020-0 Yes [id number] 25mg Take 1 [facility] e 25 mg 2-18 tablet by ity of tablet 00:00: mouth [place] 00 every 6 Medical (six) Branch hours as needed for Nausea and Vomiting (N/V). proMETHazin 2020-0 Yes [id number] 25mg Take 1 [facility] e 25 mg 2-18 tablet by ity of tablet 00:00: mouth [place] 00 every 6 Medical (six) Branch hours as needed for Nausea and Vomiting (N/V). proMETHazin 2020-0 Yes [id number] 25mg Take 1 [facility] e 25 mg 2-18 tablet by ity of tablet 00:00: mouth [place] 00 every 6 Medical (six) Branch hours as needed for Nausea and Vomiting (N/V). proMETHazin 2020-0 Yes [id number] 25mg Take 1 [facility] e 25 mg 2-18 tablet by ity of tablet 00:00: mouth [place] 00 every 6 Medical (six) Branch hours as needed for Nausea and Vomiting (N/V). proMETHazin 2020-0 Yes [id number] 25mg Take 1 [facility] e 25 mg 2-18 tablet by ity of tablet 00:00: mouth [place] 00 every 6 Medical (six) Branch hours as needed for Nausea and Vomiting (N/V). proMETHazin 0 Yes [id number] 25mg Take 1 [facility] e 25 mg 2-18 tablet by ity of tablet 00:00: mouth [place] 00 every 6 Medical (six) Branch hours as needed for Nausea and Vomiting (N/V). doxylamine- Yes [id number] 2{tbl} Take 2 Univers pyridoxine, 2-10 tablets by it y of vit B6, 00:00: mouth at [facility] 00 bedtime. Medic al 10-10 mg Branch per tablet doxylamine- Yes [id number] 2{tbl} Take 2 Univers pyridoxine, 2-10 tablets by it y of vit B6, 00:00: mouth at [facility] 00 bedtime. Medic al 10-10 mg Branch per tablet doxylamine- Yes [id number] 2{tbl} Take 2 [facility] pyridoxine, 2-10 tablets by it y of vit B6, 00:00: mouth at [facility] 00 bedtime. Medic al 10-10 mg Branch per tablet doxylamine- Yes [id number] 2{tbl} Take 2 Univers pyridoxine, 2-10 tablets by it y of vit B6, 00:00: mouth at [facility] 00 bedtime. Medic al 10-10 mg Branch per tablet doxylamine- Yes [id number] 2{tbl} Take 2 Univers pyridoxine, 2-10 tablets by it y of vit B6, 00:00: mouth at [place] [address] bedtime. Medic al 10-10 mg Branch per tablet doxylamine- Yes [id number] 2{tbl} Take 2 Univers pyridoxine, 2-10 tablets by it y of vit B6, 00:00: mouth at [place] [address] bedtime. Medic al 10-10 mg Branch per tablet doxylamine- Yes [id number] 2{tbl} Take 2 [facility] pyridoxine, 2-10 tablets by it y of vit B6, 00:00: mouth at [facility] bedtime. Medic al 10-10 mg Branch per tablet doxylamine- Yes [id number] 2{tbl} Take 2 [facility] pyridoxine, 2-10 tablets by it y of vit B6, 00:00: mouth at [place] [address] bedtime. Medic al 10-10 mg Branch per tablet doxylamine- Yes [id number] 2{tbl} Take 2 [facility] pyridoxine, 2-10 tablets by it y of vit B6, 00:00: mouth at [place] [address] bedtime. Medic al 10-10 mg Branch per tablet doxylamine- Yes [id number] 2{tbl} Take 2 [facility] pyridoxine, 2-10 tablets by it y of vit B6, 00:00: mouth at [facility] bedtime. Medic al 10-10 mg Branch per tablet doxylamine- Yes [id number] 2{tbl} Take 2 [facility] pyridoxine, 2-10 tablets by it y of vit B6, 00:00: mouth at [facility] 00 bedtime. Medic al 10-10 mg Branch per tablet doxylamine- 0 Yes [id number] 2{tbl} Take 2 [facility] pyridoxine, 2-10 tablets by it y of vit B6, 00:00: mouth at [place] [address] bedtime. Medic al 10-10 mg Branch per tablet doxylamine- Yes [id number] 2{tbl} Take 2 [facility] pyridoxine, 2-10 tablets by it y of vit B6, 00:00: mouth at [facility] 00 bedtime. Medic al 10-10 mg Branch per tablet doxylamine- Yes [id number] 2{tbl} Take 2 [facility] pyridoxine, 2-10 tablets by it y of vit B6, 00:00: mouth at [facility] 00 bedtime. Medic al 10-10 mg Branch per tablet doxylamine- Yes [id number] 2{tbl} Take 2 [facility] pyridoxine, 2-10 tablets by it y of vit B6, 00:00: mouth at [facility] 00 bedtime. Medic al 10-10 mg Branch per tablet doxylamine- Yes [id number] 2{tbl} Take 2 [facility] pyridoxine, 2-10 tablets by it y of vit B6, 00:00: mouth at [facility] 00 bedtime. Medic al 10-10 mg Branch per tablet doxylamine- Yes [id number] 2{tbl} Take 2 [facility] pyridoxine, 2-10 tablets by it y of vit B6, 00:00: mouth at [facility] 00 bedtime. Medic al 10-10 mg Branch per tablet doxylamine- Yes [id number] 2{tbl} Take 2 [facility] pyridoxine, 2-10 tablets by it y of vit B6, 00:00: mouth at [facility] 00 bedtime. Medic al 10-10 mg Branch per tablet doxylamine- Yes [id number] 2{tbl} Take 2 [facility] pyridoxine, 2-10 tablets by it y of vit B6, 00:00: mouth at [facility] 00 bedtime. Medic al 10-10 mg Branch per tablet doxylamine- Yes [id number] 2{tbl} Take 2 [facility] pyridoxine, 2-10 tablets by it y of vit B6, 00:00: mouth at [facility] 00 bedtime. Medic al 10-10 mg Branch per tablet doxylamine- Yes [id number] 2{tbl} Take 2 [facility] pyridoxine, 2-10 tablets by it y of vit B6, 00:00: mouth at [facility] 00 bedtime. Medic al 10-10 mg Branch per tablet doxylamine- Yes [id number] 2{tbl} Take 2 [facility] pyridoxine, 2-10 tablets by it y of vit B6, 00:00: mouth at [facility] 00 bedtime. Medic al 10-10 mg Branch per tablet doxylamine- Yes [id number] 2{tbl} Take 2 [facility] pyridoxine, 2-10 tablets by it y of vit B6, 00:00: mouth at [facility] 00 bedtime. Medic al 10-10 mg Branch per tablet doxylamine- Yes [id number] 2{tbl} Take 2 [facility] pyridoxine, 2-10 tablets by it y of vit B6, 00:00: mouth at [facility] 00 bedtime. Medic al 10-10 mg Branch per tablet doxylamine- Yes [id number] 2{tbl} Take 2 [facility] pyridoxine, 2-10 tablets by it y of vit B6, 00:00: mouth at [facility] 00 bedtime. Medic al 10-10 mg Branch per tablet doxylamine- Yes [id number] 2{tbl} Take 2 [facility] pyridoxine, 2-10 tablets by it y of vit B6, 00:00: mouth at [facility] 00 bedtime. Medic al 10-10 mg Branch per tablet doxylamine- Yes [id number] 2{tbl} Take 2 [facility] pyridoxine, 2-10 tablets by it y of vit B6, 00:00: mouth at [facility] 00 bedtime. Medic al 10-10 mg Branch per tablet doxylamine- Yes [id number] 2{tbl} Take 2 [facility] pyridoxine, 2-10 tablets by it y of vit B6, 00:00: mouth at [facility] 00 bedtime. Medic al 10-10 mg Branch per tablet doxylamine- Yes [id number] 2{tbl} Take 2 [facility] pyridoxine, 2-10 tablets by it y of vit B6, 00:00: mouth at [place] [address] bedtime. Medic al 10-10 mg Branch per tablet doxylamine- 2020-0 Yes [id number] 2{tbl} Take 2 [facility] pyridoxine, 2-10 tablets by it y of vit B6, 00:00: mouth at [facility] 00 bedtime. Medic al 10-10 mg Branch per tablet doxylamine- 2020-0 Yes [id number] 2{tbl} Take 2 [facility] pyridoxine, 2-10 tablets by it y of vit B6, 00:00: mouth at [facility] 00 bedtime. Medic al 10-10 mg Branch per tablet doxylamine- 2020-0 Yes [id number] 2{tbl} Take 2 [facility] pyridoxine, 2-10 tablets by it y of vit B6, 00:00: mouth at [facility] 00 bedtime. Medic al 10-10 mg Branch per tablet doxylamine- 0 Yes [id number] 2{tbl} Take 2 [facility] pyridoxine, 2-10 tablets by it y of vit B6, 00:00: mouth at [facility] 00 bedtime. Medic al 10-10 mg Branch per tablet doxylamine- 2020-0 Yes [id number] 2{tbl} Take 2 [facility] pyridoxine, 2-10 tablets by it y of vit B6, 00:00: mouth at [place] [address] bedtime. Medic al 10-10 mg Branch per tablet doxylamine- 2020-0 Yes [id number] 2{tbl} Take 2 [facility] pyridoxine, 2-10 tablets by it y of vit B6, 00:00: mouth at [facility] 00 bedtime. Medic al 10-10 mg Branch per tablet doxylamine- 2020-0 Yes [id number] 2{tbl} Take 2 [facility] pyridoxine, 2-10 tablets by it y of vit B6, 00:00: mouth at [facility] 00 bedtime. Medic al 10-10 mg Branch per tablet doxylamine- 2020-0 Yes [id number] 2{tbl} Take 2 [facility] pyridoxine, 2-10 tablets by it y of vit B6, 00:00: mouth at [place] [address] bedtime. Medic al 10-10 mg Branch per tablet doxylamine- 2020-0 Yes [id number] 2{tbl} Take 2 [facility] pyridoxine, 2-10 tablets by it y of vit B6, 00:00: mouth at [place] [address] bedtime. Medic al 10-10 mg Branch per tablet doxylamine- 2020-0 Yes [id number] 2{tbl} Take 2 [facility] pyridoxine, 2-10 tablets by it y of vit B6, 00:00: mouth at [place] [address] bedtime. Medic al 10-10 mg Branch per tablet doxylamine- 2020-0 Yes [id number] 2{tbl} Take 2 [facility] pyridoxine, 2-10 tablets by it y of vit B6, 00:00: mouth at [place] [address] bedtime. Medic al 10-10 mg Branch per tablet doxylamine- 2020-0 Yes [id number] 2{tbl} Take 2 [facility] pyridoxine, 2-10 tablets by it y of vit B6, 00:00: mouth at [place] [address] bedtime. Medic al 10-10 mg Branch per tablet doxylamine- 2020-0 Yes [id number] 2{tbl} Take 2 [facility] pyridoxine, 2-10 tablets by it y of vit B6, 00:00: mouth at [place] [address] bedtime. Medic al 10-10 mg Branch per tablet doxylamine- 2020-0 Yes [id number] 2{tbl} Take 2 [facility] pyridoxine, 2-10 tablets by it y of vit B6, 00:00: mouth at [place] [address] bedtime. Medic al 10-10 mg Branch per tablet doxylamine- 2020-0 Yes [id number] 2{tbl} Take 2 [facility] pyridoxine, 2-10 tablets by it y of vit B6, 00:00: mouth at [place] [address] bedtime. Medic al 10-10 mg Branch per tablet doxylamine- 2020-0 Yes [id number] 2{tbl} Take 2 [facility] pyridoxine, 2-10 tablets by it y of vit B6, 00:00: mouth at [place] [address] bedtime. Medic al 10-10 mg Branch per tablet doxylamine- 2020-0 Yes [id number] 2{tbl} Take 2 [facility] pyridoxine, 2-10 tablets by it y of vit B6, 00:00: mouth at [facility] 00 bedtime. Medic al 10-10 mg Branch per tablet doxylamine- 0 Yes [id number] 2{tbl} Take 2 [facility] pyridoxine, 2-10 tablets by it y of vit B6, 00:00: mouth at [facility] 00 bedtime. Medic al 10-10 mg Branch per tablet doxylamine- 0 Yes [id number] 2{tbl} Take 2 [facility] pyridoxine, 2-10 tablets by it y of vit B6, 00:00: mouth at [facility] 00 bedtime. Medic al 10-10 mg Branch per tablet doxylamine- Yes [id number] 2{tbl} Take 2 [facility] pyridoxine, 2-10 tablets by it y of vit B6, 00:00: mouth at [place] [address] bedtime. Medic al 10-10 mg Branch per tablet doxylamine- 0 Yes [id number] 2{tbl} Take 2 [facility] pyridoxine, 2-10 tablets by it y of vit B6, 00:00: mouth at [place] [address] bedtime. Medic al 10-10 mg Branch per tablet doxylamine- 0 Yes [id number] 2{tbl} Take 2 [facility] pyridoxine, 2-10 tablets by it y of vit B6, 00:00: mouth at [facility] 00 bedtime. Medic al 10-10 mg Branch per tablet doxylamine- 0 Yes [id number] 2{tbl} Take 2 [facility] pyridoxine, 2-10 tablets by it y of vit B6, 00:00: mouth at [facility] 00 bedtime. Medic al 10-10 mg Branch per tablet doxylamine- 2020-0 Yes [id number] 2{tbl} Take 2 [facility] pyridoxine, 2-10 tablets by it y of vit B6, 00:00: mouth at [facility] 00 bedtime. Medic al 10-10 mg Branch per tablet doxylamine- Yes [id number] 2{tbl} Take 2 [facility] pyridoxine, 2-10 tablets by it y of vit B6, 00:00: mouth at [facility] bedtime. Medic al 10-10 mg Branch per tablet doxylamine- Yes [id number] 2{tbl} Take 2 [facility] pyridoxine, 2-10 tablets by it y of vit B6, 00:00: mouth at [facility] bedtime. Medic al 10-10 mg Branch per tablet doxylamine- Yes [id number] 2{tbl} Take 2 [facility] pyridoxine, 2-10 tablets by it y of vit B6, 00:00: mouth at [facility] bedtime. Medic al 10-10 mg Branch per tablet doxylamine- Yes [id number] 2{tbl} Take 2 [facility] pyridoxine, 2-10 tablets by it y of vit B6, 00:00: mouth at [place] [address] bedtime. Medic al 10-10 mg Branch per tablet doxylamine- Yes [id number] 2{tbl} Take 2 [facility] pyridoxine, 2-10 tablets by it y of vit B6, 00:00: mouth at [facility] bedtime. Medic al 10-10 mg Branch per tablet doxylamine- Yes [id number] 2{tbl} Take 2 [facility] pyridoxine, 2-10 tablets by it y of vit B6, 00:00: mouth at [place] [address] bedtime. Medic al 10-10 mg Branch per tablet doxylamine- Yes [id number] 2{tbl} Take 2 [facility] pyridoxine, 2-10 tablets by it y of vit B6, 00:00: mouth at [facility] bedtime. Medic al 10-10 mg Branch per tablet doxylamine- Yes [id number] 2{tbl} Take 2 [facility] pyridoxine, 2-10 tablets by it y of vit B6, 00:00: mouth at [place] [address] bedtime. Medic al 10-10 mg Branch per tablet Yes [id number] 1{tbl} Take 1 [facility] nivers multivitami 1-13 tablet by ity of n ( 00:00: mouth [place] [facility]) 00 daily. Medical tablet Branch Yes [id number] 1{tbl} Take 1 [facility] multivitami 1-13 tablet by ity of n ( 00:00: mouth [place] [facility]) 00 daily. Medical tablet Branch Yes [id number] 1{tbl} Take 1 [facility] mult[facility]itami 1-13 tablet by ity of n ( 00:00: mouth [place] [facility]) 00 daily. Medical tablet Branch Yes [id number] 1{tbl} Take 1 [facility]ami 1-13 tablet by ity of n ( 00:00: mouth [place] [facility]) 00 daily. Medical tablet Branch Yes [id number] 1{tbl} Take 1 [facility]ami 1-13 tablet by ity of n ( 00:00: mouth [place] [facility]) 00 daily. Medical tablet Branch Yes [id number] 1{tbl} Take 1 [facility] mult[facility]ami 1-13 tablet by ity of n ( 00:00: mouth [place] [facility]) 00 daily. Medical tablet Branch Yes [id number] 1{tbl} Take 1 [facility] mult[facility]itami 1-13 tablet by ity of n ( 00:00: mouth [place] [facility]) 00 daily. Medical tablet Branch Yes [id number] 1{tbl} Take 1 [facility] mult[facility]ami 1-13 tablet by ity of n ( 00:00: mouth [place] [facility]) 00 daily. Medical tablet Branch Yes [id number] 1{tbl} Take 1 [facility] mult[facility]ami 1-13 tablet by ity of n ( 00:00: mouth [place] [facility]) 00 daily. Medical tablet Branch Yes [id number] 1{tbl} Take 1 [facility] mult[facility]ami 1-13 tablet by ity of n ( 00:00: mouth [place] [facility]) 00 daily. Medical tablet Branch Yes [id number] 1{tbl} Take 1 [facility] mult[facility]itami 1-13 tablet by ity of n ( 00:00: mouth [place] [facility]) 00 daily. Medical tablet Branch Yes [id number] 1{tbl} Take 1 [facility]ami 1-13 tablet by ity of n ( 00:00: mouth [place] [facility]) 00 daily. Medical tablet Branch Yes [id number] 1{tbl} Take 1 [facility] mult[facility]itami 1-13 tablet by ity of n ( 00:00: mouth [place] [facility]) 00 daily. Medical tablet Branch Yes [id number] 1{tbl} Take 1 [facility]ami 1-13 tablet by ity of n ( 00:00: mouth [place] [facility]) 00 daily. Medical tablet Branch Yes [id number] 1{tbl} Take 1 [facility]ami 1-13 tablet by ity of n ( 00:00: mouth [place] [facility]) 00 daily. Medical tablet Branch Yes [id number] 1{tbl} Take 1 [facility] mult[facility]ami 1-13 tablet by ity of n ( 00:00: mouth [place] [facility]) 00 daily. Medical tablet Branch Yes [id number] 1{tbl} Take 1 [facility]ami 1-13 tablet by ity of n ( 00:00: mouth [place] [facility]) 00 daily. Medical tablet Branch Yes [id number] 1{tbl} Take 1 [facility] mult[facility]ami 1-13 tablet by ity of n ( 00:00: mouth [place] [facility]) 00 daily. Medical tablet Branch Yes [id number] 1{tbl} Take 1 [facility] mult[facility]ami 1-13 tablet by ity of n ( 00:00: mouth [place] [facility]) 00 daily. Medical tablet Branch Yes [id number] 1{tbl} Take 1 [facility] mult[facility]ami 1-13 tablet by ity of n ( 00:00: mouth [place] [facility]) 00 daily. Medical tablet Branch Yes [id number] 1{tbl} Take 1 [facility] mult[facility]ami 1-13 tablet by [facility]y of n ( 00:00: mouth [place] [facility]) 00 daily. Medical tablet Branch Yes [id number] 1{tbl} Take 1 [facility]ami 1-13 tablet by [facility]y of n ( 00:00: mouth [place] [facility]) 00 daily. Medical tablet Branch Yes [id number] 1{tbl} Take 1 [facility] mult[facility]ami 1-13 tablet by [facility]y of n ( 00:00: mouth [place] [facility]) 00 daily. Medical tablet Branch Yes [id number] 1{tbl} Take 1 [facility] mult[facility]ami 1-13 tablet by ity of n ( 00:00: mouth [place] [facility]) 00 daily. Medical tablet Branch Yes [id number] 1{tbl} Take 1 [facility]ami 1-13 tablet by [facility]y of n ( 00:00: mouth [place] [facility]) 00 daily. Medical tablet Branch Yes [id number] 1{tbl} Take 1 [facility]ami 1-13 tablet by [facility]y of n ( 00:00: mouth [place] [facility]) 00 daily. Medical tablet Branch Yes [id number] 1{tbl} Take 1 [facility] 1-13 tablet by [facility]y of n ( 00:00: mouth [place] [facility]) 00 daily. Medical tablet Branch Yes [id number] 1{tbl} Take 1 [facility] 1-13 tablet by [facility]y of n ( 00:00: mouth [place] [facility]) 00 daily. Medical tablet Branch Yes [id number] 1{tbl} Take 1 [facility] 1-13 tablet by [facility] of n ( 00:00: mouth [place] [facility]) 00 daily. Medical tablet Branch Yes [id number] 1{tbl} Take 1 [facility]ami 1-13 tablet by [facility]y of n ( 00:00: mouth [place] [facility]) 00 daily. Medical tablet Branch Yes [id number] 1{tbl} Take 1 [facility] 1-13 tablet by [facility]y of n ( 00:00: mouth [place] [facility]) 00 daily. Medical tablet Branch Yes [id number] 1{tbl} Take 1 [facility]ami 1-13 tablet by [facility] of n ( 00:00: mouth [place] [facility]) 00 daily. Medical tablet Branch Yes [id number] 1{tbl} Take 1 [facility]ami 1-13 tablet by [facility]y of n ( 00:00: mouth [place] [facility]) 00 daily. Medical tablet Branch Yes [id number] 1{tbl} Take 1 [facility]ami 1-13 tablet by [facility]y of n ( 00:00: mouth [place] [facility]) 00 daily. Medical tablet Branch Yes [id number] 1{tbl} Take 1 [facility] mult[facility]ami 1-13 tablet by [facility] of n ( 00:00: mouth [place] [facility]) 00 daily. Medical tablet Branch Yes [id number] 1{tbl} Take 1 [facility]ami 1-13 tablet by [facility]y of n ( 00:00: mouth [place] [facility]) 00 daily. Medical tablet Branch Yes [id number] 1{tbl} Take 1 [facility] 1-13 tablet by [facility] of n ( 00:00: mouth [place] [facility]) 00 daily. Medical tablet Branch Yes [id number] 1{tbl} Take 1 [facility] 1-13 tablet by [facility] of n ( 00:00: mouth [place] [facility]) 00 daily. Medical tablet Branch Yes [id number] 1{tbl} Take 1 [facility] 1-13 tablet by [facility]y of n ( 00:00: mouth [place] [facility]) 00 daily. Medical tablet Branch Yes [id number] 1{tbl} Take 1 [facility]ami 1-13 tablet by [facility]y of n ( 00:00: mouth [place] [facility]) 00 daily. Medical tablet Branch Yes [id number] 1{tbl} Take 1 [facility] 1-13 tablet by [facility] of n ( 00:00: mouth [place] [facility]) 00 daily. Medical tablet Branch Yes [id number] 1{tbl} Take 1 [facility] mult[facility]ami 1-13 tablet by [facility]y of n ( 00:00: mouth [place] [facility]) 00 daily. Medical tablet Branch Yes [id number] 1{tbl} Take 1 [facility] mult[facility]ami 1-13 tablet by [facility] of n ( 00:00: mouth [place] [facility]) 00 daily. Medical tablet Branch Yes [id number] 1{tbl} Take 1 [facility] 1-13 tablet by [facility] of n ( 00:00: mouth [place] [facility]) 00 daily. Medical tablet Branch Yes [id number] 1{tbl} Take 1 [facility] 1-13 tablet by [facility] of n ( 00:00: mouth [place] [facility]) 00 daily. Medical tablet Branch Yes [id number] 1{tbl} Take 1 [facility] 1-13 tablet by [facility] of n ( 00:00: mouth [place] [facility]) 00 daily. Medical tablet Branch Yes [id number] 1{tbl} Take 1 [facility] 1-13 tablet by [facility] of n ( 00:00: mouth [place] [facility]) 00 daily. Medical tablet Branch Yes [id number] 1{tbl} Take 1 [facility] 1-13 tablet by [facility] of n ( 00:00: mouth [place] [facility]) 00 daily. Medical tablet Branch Yes [id number] 1{tbl} Take 1 [facility] mult[facility]ami 1-13 tablet by [facility] of n ( 00:00: mouth [place] [facility]) 00 daily. Medical tablet Branch Yes [id number] 1{tbl} Take 1 [facility] 1-13 tablet by [facility] of n ( 00:00: mouth [place] [facility]) 00 daily. Medical tablet Branch Yes [id number] 1{tbl} Take 1 [facility] 1-13 tablet by [facility] of n ( 00:00: mouth [place] [facility]) 00 daily. Medical tablet Branch Yes [id number] 1{tbl} Take 1 [facility] 1-13 tablet by [facility] of n ( 00:00: mouth [place] [facility]) 00 daily. Medical tablet Branch Yes [id number] 1{tbl} Take 1 [facility] 1-13 tablet by [facility] of n ( 00:00: mouth [place] [facility]) 00 daily. Medical tablet Branch Yes [id number] 1{tbl} Take 1 [facility] 1-13 tablet by [facility] of n ( 00:00: mouth [place] [facility]) 00 daily. Medical tablet Branch Yes [id number] 1{tbl} Take 1 [facility] 1-13 tablet by [facility] of n ( 00:00: mouth [place] [facility]) 00 daily. Medical tablet Branch Yes [id number] 1{tbl} Take 1 [facility] 1-13 tablet by [facility] of n ( 00:00: mouth [place] [facility]) 00 daily. Medical tablet Branch Yes [id number] 1{tbl} Take 1 [facility] 1-13 tablet by [facility] of n ( 00:00: mouth [place] [facility]) 00 daily. Medical tablet Branch Yes [id number] 1{tbl} Take 1 [facility] 1-13 tablet by [facility] of n ( 00:00: mouth [place] [facility]) 00 daily. Medical tablet Branch Yes [id number] 1{tbl} Take 1 [facility] 1-13 tablet by [facility] of n ( 00:00: mouth [place] [facility]) 00 daily. Medical tablet Branch Yes [id number] 1{tbl} Take 1 [facility] 1-13 tablet by [facility] of n ( 00:00: mouth [place] [facility]) 00 daily. Medical tablet Branch Yes [id number] 1{tbl} Take 1 [facility] 1-13 tablet by [facility] of n ( 00:00: mouth [place] [facility]) 00 daily. Medical tablet Branch Yes [id number] 1{tbl} Take 1 [facility] 1-13 tablet by [facility] of n ( 00:00: mouth [place] [facility]) 00 daily. Medical tablet Branch Yes [id number] 1{tbl} Take 1 [facility] 1-13 tablet by [facility] of n ( 00:00: mouth [place] [facility]) 00 daily. Medical tablet Branch HYDROXYprog 2020- No [id number] 250mg 1 mL by [facility] est,PF,,pre -18 01-11 [facility] pres[facility], 00:00: 04:59 lar route Man as 250 mg/mL 00 :00 weekly for Medi carlos (1 mL) 22 doses. Branch injection HYDROXYprog 2020- No [id number] 250mg 1 mL by [facility] est,PF,,pre 08-20 [facility] pres[facility], 00:00: 04:59 lar route Man as 250 mg/mL 00 :00 weekly for Medi carlos (1 mL) 22 doses. Branch injection HYDROXYprog 2020- No [id number] 250mg 1 mL by [facility] est,PF,,pre 08-20 [facility] pres[facility], 00:00: 04:59 lar route Man as 250 mg/mL 00 :00 weekly for Medi carlos (1 mL) 22 doses. Branch injection HYDROXYprog 2020- No [id number] 250mg 1 mL by [facility] est,PF,,pre 08-20 [facility] pres[facility], 00:00: 04:59 lar route [facility] as 250 mg/mL 00 :00 weekly for Medi carlos (1 mL) 22 doses. Branch injection HYDROXYprog 2020- No [id number] 250mg 1 mL by [facility] est,PF,,pre 08-20 [facility] pres[facility], 00:00: 04:59 lar route [facility] as 250 mg/mL 00 :00 weekly for Medi carlos (1 mL) 22 doses. Branch injection HYDROXYprog 2020- No [id number] 250mg 1 mL by [facility] est,PF,,pre 08-20 [facility] pres[facility], 00:00: 04:59 lar route Man as 250 mg/mL 00 :00 weekly for Medi carlos (1 mL) 22 doses. Branch injection HYDROXYprog 2020-0 2020- No [id number] 250mg 1 mL by [facility] est,PF,,pre 08-20 [facility] pres[facility], 00:00: 04:59 lar route Man as 250 mg/mL 00 :00 weekly for Medi carlos (1 mL) 22 doses. Branch injection HYDROXYprog 2020- No [id number] 250mg 1 mL by [facility] est,PF,,pre 08-20 [facility] pres[facility], 00:00: 04:59 lar route Man as 250 mg/mL 00 :00 weekly for Medi carlos (1 mL) 22 doses. Branch injection HYDROXYprog 2020- No [id number] 250mg 1 mL by [facility] est,PF,,pre 08-20 [facility] pres[facility], 00:00: 04:59 lar route Man as 250 mg/mL 00 :00 weekly for Medi carlos (1 mL) 22 doses. Branch injection HYDROXYprog 2020- No [id number] 250mg 1 mL by [facility] est,PF,,pre 08-20 [facility] pres[facility], 00:00: 04:59 lar route Man as 250 mg/mL 00 :00 weekly for Medi carlos (1 mL) 22 doses. Branch injection HYDROXYprog 2020- No [id number] 250mg 1 mL by [facility] est,PF,,pre 08-20 [facility] pres[facility], 00:00: 04:59 lar route Man as 250 mg/mL 00 :00 weekly for Medi carlos (1 mL) 22 doses. Branch injection HYDROXYprog 2020- No [id number] 250mg 1 mL by [facility] est,PF,,pre 08-20 [facility] pres[facility], 00:00: 04:59 lar route Man as 250 mg/mL 00 :00 weekly for Medi carlos (1 mL) 22 doses. Branch injection HYDROXYprog 2020- No [id number] 250mg 1 mL by [facility] est,PF,,pre 08-20 [facility] pres[facility], 00:00: 04:59 lar route Man as 250 mg/mL 00 :00 weekly for Medi carlos (1 mL) 22 doses. Branch injection HYDROXYprog 2020- No [id number] 250mg 1 mL by [facility] est,PF,,pre 08-20 [facility] pres[facility], 00:00: 04:59 lar route Man as 250 mg/mL 00 :00 weekly for Medi carlos (1 mL) 22 doses. Branch injection HYDROXYprog 2020- No [id number] 250mg 1 mL by [facility] est,PF,,pre 08-20 [facility] pres[facility], 00:00: 04:59 lar route [facility] as 250 mg/mL 00 :00 weekly for Medi carlos (1 mL) 22 doses. Branch injection HYDROXYprog 2020- No [id number] 250mg 1 mL by [facility] est,PF,,pre 08-20 [facility] pres[facility], 00:00: 04:59 lar route Man as 250 mg/mL 00 :00 weekly for Medi carlos (1 mL) 22 doses. Branch injection HYDROXYprog 2020- No [id number] 250mg 1 mL by [facility] est,PF,,pre 08-20 [facility] pres[facility], 00:00: 04:59 lar route Man as 250 mg/mL 00 :00 weekly for Medi carlos (1 mL) 22 doses. Branch injection HYDROXYprog 2020- No [id number] 250mg 1 mL by [facility] est,PF,,pre 08-20 [facility] pres[facility], 00:00: 04:59 lar route [facility] as 250 mg/mL 00 :00 weekly for Medi carlos (1 mL) 22 doses. Branch injection HYDROXYprog 2020- No [id number] 250mg 1 mL by [facility] est,PF,,pre 08-20 [facility] pres[facility], 00:00: 04:59 lar route [facility] as 250 mg/mL 00 :00 weekly for Medi carlos (1 mL) 22 doses. Branch injection HYDROXYprog 2020- No [id number] 250mg 1 mL by [facility] est,PF,,pre 08-20 [facility] pres[facility], 00:00: 04:59 lar route Man as 250 mg/mL 00 :00 weekly for Medi carlos (1 mL) 22 doses. Branch injection HYDROXYprog 2020- No [id number] 250mg 1 mL by [facility] est,PF,,pre 08-20 [facility] pres[facility], 00:00: 04:59 lar route Man as 250 mg/mL 00 :00 weekly for Medi carlos (1 mL) 22 doses. Branch injection HYDROXYprog 2020- No [id number] 250mg 1 mL by [facility] est,PF,,pre 08-20 [facility] pres[facility], 00:00: 04:59 lar route [facility] as 250 mg/mL 00 :00 weekly for Medi carlos (1 mL) 22 doses. Branch injection HYDROXYprog 2020- No [id number] 250mg 1 mL by [facility] est,PF,,pre 08-20 [facility] pres[facility], 00:00: 04:59 lar route [facility] as 250 mg/mL 00 :00 weekly for Medi carlos (1 mL) 22 doses. Branch injection HYDROXYprog 2020- No [id number] 250mg 1 mL by [facility] est,PF,,pre 08-20 [facility] pres[facility], 00:00: 04:59 lar route Man as 250 mg/mL 00 :00 weekly for Medi carlos (1 mL) 22 doses. Branch injection HYDROXYprog 2020- No [id number] 250mg 1 mL by [facility] est,PF,,pre 08-20 [facility] pres[facility], 00:00: 04:59 lar route Man as 250 mg/mL 00 :00 weekly for Medi carlos (1 mL) 22 doses. Branch injection HYDROXYprog 2020- No [id number] 250mg 1 mL by [facility] est,PF,,pre 08-20 [facility] pres[facility], 00:00: 04:59 lar route Man as 250 mg/mL 00 :00 weekly for Medi carlos (1 mL) 22 doses. Branch injection HYDROXYprog 2020- No [id number] 250mg 1 mL by [facility] est,PF,,pre 08-20 [facility] pres[facility], 00:00: 04:59 lar route [place] as 250 mg/mL 00 :00 weekly for Medi carlos (1 mL) 22 doses. Branch injection HYDROXYprog 2020- No [id number] 250mg 1 mL by [facility] est,PF,,pre 08-20 [facility] ty of g presv, 00:00: 04:59 lar route [place] as 250 mg/mL 00 :00 weekly for Medi carlos (1 mL) 22 doses. Branch injection HYDROXYprog 2020- No [id number] 250mg 1 mL by [facility] est,PF,,pre 08-20 [facility] ty of g presv, 00:00: 04:59 lar route [place] 250 mg/mL 00 :00 weekly for Medi carlos (1 mL) 22 doses. Branch injection HYDROXYprog 2020- No [id number] 250mg 1 mL by [facility] est,PF,,pre 08-20 [facility] ty of g presv, 00:00: 04:59 lar route [place] 250 mg/mL 00 :00 weekly for Medi carlos (1 mL) 22 doses. Branch injection HYDROXYprog 2020- No [id number] 250mg 1 mL by [facility] est,PF,,pre 08-20 [facility] i ty of g presv, 00:00: 04:59 lar route [place] 250 mg/mL 00 :00 weekly for Medi carlos (1 mL) 22 doses. Branch injection HYDROXYprog 2020- No [id number] 250mg 1 mL by [facility] est,PF,,pre 08-20 [facility] i ty of g presv, 00:00: 04:59 lar route [place] 250 mg/mL 00 :00 weekly for Medi carlos (1 mL) 22 doses. Branch injection HYDROXYprog 2020- No [id number] 250mg 1 mL by [facility] est,PF,,pre 08-20 [facility] i ty of g presv, 00:00: 04:59 lar route [place] 250 mg/mL 00 :00 weekly for Medi carlos (1 mL) 22 doses. Branch injection HYDROXYprog 2020- No [id number] 250mg 1 mL by [facility] est,PF,,pre 08-20 Intr[facility] i ty of g presv, 00:00: 04:59 lar route [place] as 250 mg/mL 00 :00 weekly for Medi carlos (1 mL) 22 doses. Branch injection HYDROXYprog 2020- No [id number] 250mg 1 mL by [facility] est,PF,,pre 08-20 [facility] i ty of g presv, 00:00: 04:59 lar route [place] 250 mg/mL 00 :00 weekly for Medi carlos (1 mL) 22 doses. Branch injection HYDROXYprog 2020- No [id number] 250mg 1 mL by [facility] est,PF,,pre 08-20 Intramus[facility] i ty of g presv, 00:00: 04:59 lar route [place] as 250 mg/mL 00 :00 weekly for Medi carlos (1 mL) 22 doses. Branch injection HYDROXYprog 2020- No [id number] 250mg 1 mL by [facility] est,PF,,pre 08-20 Intramus[facility] i ty of g presv, 00:00: 04:59 lar route [place] as 250 mg/mL 00 :00 weekly for Medi carlos (1 mL) 22 doses. Branch injection HYDROXYprog 2020- No [id number] 250mg 1 mL by [facility] est,PF,,pre 08-20 [facility] i ty of g presv, 00:00: 04:59 lar route [place] 250 mg/mL 00 :00 weekly for Medi carlos (1 mL) 22 doses. Branch injection HYDROXYprog No [id number] 250mg 1 mL by [facility] est,PF,,pre 08-20 [facility] i ty of g presv, 00:00: 04:59 lar route [place] 250 mg/mL 00 :00 weekly for Medi carlos (1 mL) 22 doses. Branch injection HYDROXYprog 2020- No [id number] 250mg 1 mL by [facility] est,PF,,pre 08-20 [facility] i ty of g presv, 00:00: 04:59 lar route [place] 250 mg/mL 00 :00 weekly for Medi carlos (1 mL) 22 doses. Branch injection HYDROXYprog No [id number] 250mg 1 mL by [facility] est,PF,,pre 08-20 [facility] i ty of g presv, 00:00: 04:59 lar route [place] 250 mg/mL 00 :00 weekly for Medi carlos (1 mL) 22 doses. Branch injection HYDROXYprog 2020- No [id number] 250mg 1 mL by [facility] est,PF,,pre 08-20 [facility]amus[facility] i ty of g presv, 00:00: 04:59 lar route [place] 250 mg/mL 00 :00 weekly for Medi carlos (1 mL) 22 doses. Branch injection HYDROXYprog No [id number] 250mg 1 mL by [facility] est,PF,,pre 08-20 Intramus[facility] i ty of g presv, 00:00: 04:59 lar route [place] 250 mg/mL 00 :00 weekly for Medi carlos (1 mL) 22 doses. Branch injection HYDROXYprog 2020- No [id number] 250mg 1 mL by [facility] est,PF,,pre 08-20 [facility]amus[facility] i ty of g presv, 00:00: 04:59 lar route [place] 250 mg/mL 00 :00 weekly for Medi carlos (1 mL) 22 doses. Branch injection HYDROXYprog 2020- No [id number] 250mg 1 mL by [facility] est,PF,,pre 08-20 Intramuscu i ty of g presv, 00:00: 04:59 lar route [place] 250 mg/mL 00 :00 weekly for Medi carlos (1 mL) 22 doses. Branch injection HYDROXYprog No [id number] 250mg 1 mL by [facility] est,PF,,pre 08-20 Intramuscu i ty of g presv, 00:00: 04:59 lar route [place] 250 mg/mL 00 :00 weekly for Medi carlos (1 mL) 22 doses. Branch injection HYDROXYprog No [id number] 250mg 1 mL by [facility] est,PF,,pre 08-20 Intramuscu i ty of g presv, 00:00: 04:59 lar route [place] as 250 mg/mL 00 :00 weekly for Medi carlos (1 mL) 22 doses. Branch injection HYDROXYprog No [id number] 250mg 1 mL by [facility] est,PF,,pre 08-20 [...] dose, Sat Medical 1,000 mg 03/22/20 at [facility], [place] h 0215, ARA
Re ason for Anti-Infec tive: Empiric Therapy for Suspected Infection< br>Empiric Therapy Site: Pelvic
Duration of therapy: 72 hours ketorolac 2019-2019- No 30mg 30 mg, Unive rs (TORADOL) 03-2215 Slow IV ity of injection 05:15: 04:14 Push, [place] 30 mg 00 :00 ONCE, 1 Medical dose, Sat Branch 03/22/20 at 0015, Routine
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 metroNIDAZO 2020-0 2020- No [id number] 500mg Take 1 [facility] LE 500 mg 8- 08-30 tablet by ity of tablet 00:00: 04:59 mouth 2 [place] 00 :00 (two) Medical times Branch daily for 14 days. metroNIDAZO 2020-0 2020- No [id number] 500mg Take 1 [facility] LE 500 mg 8- 08-30 tablet by ity of tablet 00:00: 04:59 mouth 2 [place] 00 :00 (two) Medical times Branch daily for 14 days. metroNIDAZO 2020-0 2020- No [id number] 500mg Take 1 [facility] LE 500 mg 8-15 08-30 tablet by ity of tablet 00:00: 04:59 mouth 2 [place] 00 :00 (two) Medical times Branch daily for 14 days. metroNIDAZO 2020-0 2020- No [id number] 500mg Take 1 [facility] LE 500 mg 8-15 08-30 tablet by ity of tablet 00:00: 04:59 mouth 2 [place] 00 :00 (two) Medical times [place] daily for 14 days. cefTRIAXone 2019- Yes 250mg 250 mg, Un alex (ROCEPHIN) 02-25 Intramuscu ity of injection 23:30: lar, Q24H, [place] 250 mg 00 First dose Medical on [facility] 02/26/20 at 1830, Until Discontinu ed, ARA
Re ason for Anti-Infec tive: Documented Infection< br>Documen kareen Infection Site: Pelvic
Duration of Therapy: Other (see Comments) azithromyci 2019- No 1000mg 1,000 mg, Univers n 02-25 Oral, ity of (ZITHROMAX) 23:30: 23:39 ONCE, 1 [place] tablet 00 :00 dose, [facility] Medical 1,000 mg 02/26/20 at [facility], [place] h 1830, ARA
Re ason for Anti-Infec tive: Documented Infection< br>Documen kareen Infection Site: Pelvic
Duration of Therapy: Other (see Comments) ketorolac 2019-2019- No 15mg 15 mg, Unive rs (TORADOL) 02-25 Slow IV ity of injection 23:15: 22:18 Push, [place] 15 mg 00 :00 ONCE, 1 Medical dose, [facility] 02/26/20 at 1815, ARA
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 member approving Restricted medication : EVANGELIST BONNER ondansetron 2019- No 4mg 4 mg, Slow Univers (ZOFRAN 02-25 IV Push, ity of (PF)) 23:15: 22:21 ONCE, 1 [place] injection 4 00 :00 dose, [facility] Med ical mg 02/26/20 at Branch 1815, ARA morpHINE 2019-0 2020- No 4mg 4 mg, Slow Un alex injection 4 7-21 07-21 IV Push, ity of mg 23:15: 22:21 ONCE, 1 [place] 00 :00 dose, [facility] 02/26/20 at Branch 1815, STAT ibuprofen 2020-0 Yes [id number] 800mg Take 1 [facility] 800 mg 7-21 tablet by ity of tablet 00:00: mouth [place] 00 every 6 Medical (six) Branch hours as needed for Pain (scale 4-6). ibuprofen 2020-0 Yes [id number] 800mg Take 1 [facility] 800 mg 7-21 tablet by ity of tablet 00:00: mouth [place] 00 every 6 Medical (six) Branch hours as needed for Pain (scale 4-6). ibuprofen 2020-0 Yes [id number] 800mg Take 1 [facility] 800 mg 7-21 tablet by ity of tablet 00:00: mouth [place] 00 every 6 Medical (six) Branch hours as needed for Pain (scale 4-6). ibuprofen 2020-0 Yes [id number] 800mg Take 1 [facility] 800 mg 7-21 tablet by ity of tablet 00:00: mouth [place] 00 every 6 Medical (six) Branch hours as needed for Pain (scale 4-6). ibuprofen 2020-0 Yes [id number] 800mg Take 1 [facility] 800 mg 7-21 tablet by ity of tablet 00:00: mouth [place] 00 every 6 Medical (six) Branch hours as needed for Pain (scale 4-6). ibuprofen 2020-0 Yes [id number] 800mg Take 1 [facility] 800 mg 7-21 tablet by ity of tablet 00:00: mouth [place] 00 every 6 Medical (six) Branch hours as needed for Pain (scale 4-6). ibuprofen 2020-0 Yes [id number] 800mg Take 1 [facility] 800 mg 7-21 tablet by ity of tablet 00:00: mouth [place] 00 every 6 Medical (six) Branch hours as needed for Pain (scale 4-6). ibuprofen 2020-0 Yes [id number] 800mg Take 1 [facility] 800 mg 7-21 tablet by ity of tablet 00:00: mouth [place] 00 every 6 Medical (six) Branch hours as needed for Pain (scale 4-6). ibuprofen 2020-0 Yes [id number] 800mg Take 1 [facility] 800 mg 7-21 tablet by ity of tablet 00:00: mouth [place] 00 every 6 Medical (six) Branch hours as needed for Pain (scale 4-6). ibuprofen 2020-0 Yes [id number] 800mg Take 1 [facility] 800 mg 7-21 tablet by ity of tablet 00:00: mouth [place] 00 every 6 Medical (six) Branch hours as needed for Pain (scale 4-6). ibuprofen 2020-0 Yes [id number] 800mg Take 1 [facility] 800 mg 7-21 tablet by ity of tablet 00:00: mouth [place] 00 every 6 Medical (six) Branch hours as needed for Pain (scale 4-6). ibuprofen 2020-0 Yes [id number] 800mg Take 1 [facility] 800 mg 7-21 tablet by ity of tablet 00:00: mouth [place] 00 every 6 Medical (six) Branch hours as needed for Pain (scale 4-6). ibuprofen 2020-0 Yes [id number] 800mg Take 1 [facility] 800 mg 7-21 tablet by ity of tablet 00:00: mouth [place] 00 every 6 Medical (six) Branch hours as needed for Pain (scale 4-6). ibuprofen 2020-0 Yes [id number] 800mg Take 1 [facility] 800 mg 7-21 tablet by ity of tablet 00:00: mouth [place] 00 every 6 Medical (six) Branch hours as needed for Pain (scale 4-6). ibuprofen 2020-0 Yes [id number] 800mg Take 1 [facility] 800 mg 7-21 tablet by ity of tablet 00:00: mouth [place] 00 every 6 Medical (six) Branch hours as needed for Pain (scale 4-6). ibuprofen 2020-0 Yes [id number] 800mg Take 1 [facility] 800 mg 7-21 tablet by ity of tablet 00:00: mouth [place] 00 every 6 Medical (six) Branch hours as needed for Pain (scale 4-6). ibuprofen 2020-0 Yes [id number] 800mg Take 1 [facility] 800 mg 7-21 tablet by ity of tablet 00:00: mouth [place] 00 every 6 Medical (six) Branch hours as needed for Pain (scale 4-6). ibuprofen 2020-0 Yes [id number] 800mg Take 1 [facility] 800 mg 7-21 tablet by ity of tablet 00:00: mouth [place] 00 every 6 Medical (six) Branch hours as needed for Pain (scale 4-6). ibuprofen 2020-0 Yes [id number] 800mg Take 1 [facility] 800 mg 7-21 tablet by ity of tablet 00:00: mouth [place] 00 every 6 Medical (six) Branch hours as needed for Pain (scale 4-6). ibuprofen 2020-0 Yes [id number] 800mg Take 1 [facility] 800 mg 7-21 tablet by ity of tablet 00:00: mouth [place] 00 every 6 Medical (six) Branch hours as needed for Pain (scale 4-6). ibuprofen 2020-0 Yes [id number] 800mg Take 1 [facility] 800 mg 7-21 tablet by ity of tablet 00:00: mouth [place] 00 every 6 Medical (six) Branch hours as needed for Pain (scale 4-6). ibuprofen 2020-0 Yes [id number] 800mg Take 1 [facility] 800 mg 7-21 tablet by ity of tablet 00:00: mouth [place] 00 every 6 Medical (six) Branch hours as needed for Pain (scale 4-6). ibuprofen 2020-0 Yes [id number] 800mg Take 1 [facility] 800 mg 7-21 tablet by ity of tablet 00:00: mouth [place] 00 every 6 Medical (six) Branch hours as needed for Pain (scale 4-6). ibuprofen 2020-0 Yes [id number] 800mg Take 1 [facility] 800 mg 7-21 tablet by ity of tablet 00:00: mouth [place] 00 every 6 Medical (six) Branch hours as needed for Pain (scale 4-6). ibuprofen 2020-0 Yes [id number] 800mg Take 1 [facility] 800 mg 7-21 tablet by ity of tablet 00:00: mouth [place] 00 every 6 Medical (six) Branch hours as needed for Pain (scale 4-6). ibuprofen 2020-0 Yes [id number] 800mg Take 1 [facility] 800 mg 7-21 tablet by ity of tablet 00:00: mouth [place] 00 every 6 Medical (six) Branch hours as needed for Pain (scale 4-6). ibuprofen 2020-0 Yes [id number] 800mg Take 1 [facility] 800 mg 7-21 tablet by ity of tablet 00:00: mouth [place] 00 every 6 Medical (six) Branch hours as needed for Pain (scale 4-6). ibuprofen 2020-0 Yes [id number] 800mg Take 1 [facility] 800 mg 7-21 tablet by ity of tablet 00:00: mouth [place] 00 every 6 Medical (six) Branch hours as needed for Pain (scale 4-6). ibuprofen 2020-0 Yes [id number] 800mg Take 1 [facility] 800 mg 7-21 tablet by ity of tablet 00:00: mouth [place] 00 every 6 Medical (six) Branch hours as needed for Pain (scale 4-6). ibuprofen 2020-0 Yes [id number] 800mg Take 1 [facility] 800 mg 7-21 tablet by ity of tablet 00:00: mouth [place] 00 every 6 Medical (six) Branch hours as needed for Pain (scale 4-6). ibuprofen 2020-0 Yes [id number] 800mg Take 1 [facility] 800 mg 7-21 tablet by ity of tablet 00:00: mouth [place] 00 every 6 Medical (six) Branch hours as needed for Pain (scale 4-6). ibuprofen 2020-0 Yes [id number] 800mg Take 1 [facility] 800 mg 7-21 tablet by ity of tablet 00:00: mouth [place] 00 every 6 Medical (six) Branch hours as needed for Pain (scale 4-6). ibuprofen 2020-0 Yes [id number] 800mg Take 1 [facility] 800 mg 7-21 tablet by ity of tablet 00:00: mouth [place] 00 every 6 Medical (six) Branch hours as needed for Pain (scale 4-6). ibuprofen 2020-0 Yes [id number] 800mg Take 1 [facility] 800 mg 7-21 tablet by ity of tablet 00:00: mouth [place] 00 every 6 Medical (six) Branch hours as needed for Pain (scale 4-6). ibuprofen 2020-0 Yes [id number] 800mg Take 1 [facility] 800 mg 7-21 tablet by ity of tablet 00:00: mouth [place] 00 every 6 Medical (six) Branch hours as needed for Pain (scale 4-6). ibuprofen 2020-0 Yes [id number] 800mg Take 1 [facility] 800 mg 7-21 tablet by ity of tablet 00:00: mouth [place] 00 every 6 Medical (six) Branch hours as needed for Pain (scale 4-6). ibuprofen 2020-0 Yes [id number] 800mg Take 1 [facility] 800 mg 7-21 tablet by ity of tablet 00:00: mouth [place] 00 every 6 Medical (six) Branch hours as needed for Pain (scale 4-6). ibuprofen 2020-0 Yes [id number] 800mg Take 1 [facility] 800 mg 7-21 tablet by ity of tablet 00:00: mouth [place] 00 every 6 Medical (six) Branch hours as needed for Pain (scale 4-6). ibuprofen 2020-0 Yes [id number] 800mg Take 1 [facility] 800 mg 7-21 tablet by ity of tablet 00:00: mouth [place] 00 every 6 Medical (six) Branch hours as needed for Pain (scale 4-6). ibuprofen 2020-0 Yes [id number] 800mg Take 1 [facility] 800 mg 7-21 tablet by ity of tablet 00:00: mouth [place] 00 every 6 Medical (six) Branch hours as needed for Pain (scale 4-6). ibuprofen 2020-0 Yes [id number] 800mg Take 1 [facility] 800 mg 7-21 tablet by ity of tablet 00:00: mouth [place] 00 every 6 Medical (six) Branch hours as needed for Pain (scale 4-6). ibuprofen 2020-0 Yes [id number] 800mg Take 1 [facility] 800 mg 7-21 tablet by ity of tablet 00:00: mouth [place] 00 every 6 Medical (six) Branch hours as needed for Pain (scale 4-6). ibuprofen 2020-0 Yes [id number] 800mg Take 1 [facility] 800 mg 7-21 tablet by ity of tablet 00:00: mouth [place] 00 every 6 Medical (six) Branch hours as needed for Pain (scale 4-6). ibuprofen 2020-0 Yes [id number] 800mg Take 1 [facility] 800 mg 7-21 tablet by ity of tablet 00:00: mouth [place] 00 every 6 Medical (six) Branch hours as needed for Pain (scale 4-6). ibuprofen 2020-0 Yes [id number] 800mg Take 1 [facility] 800 mg 7-21 tablet by ity of tablet 00:00: mouth [place] 00 every 6 Medical (six) Branch hours as needed for Pain (scale 4-6). ibuprofen 2020-0 Yes [id number] 800mg Take 1 [facility] 800 mg 7-21 tablet by ity of tablet 00:00: mouth [place] 00 every 6 Medical (six) Branch hours as needed for Pain (scale 4-6). ibuprofen 2020-0 Yes [id number] 800mg Take 1 [facility] 800 mg 7-21 tablet by ity of tablet 00:00: mouth [place] 00 every 6 Medical (six) Branch hours as needed for Pain (scale 4-6). ibuprofen 2020-0 Yes [id number] 800mg Take 1 [facility] 800 mg 7-21 tablet by ity of tablet 00:00: mouth [place] 00 every 6 Medical (six) Branch hours as needed for Pain (scale 4-6). ibuprofen 2020-0 Yes [id number] 800mg Take 1 [facility] 800 mg 7-21 tablet by ity of tablet 00:00: mouth [place] 00 every 6 Medical (six) Branch hours as needed for Pain (scale 4-6). ibuprofen 2020-0 Yes [id number] 800mg Take 1 [facility] 800 mg 7-21 tablet by ity of tablet 00:00: mouth [place] 00 every 6 Medical (six) Branch hours as needed for Pain (scale 4-6). ibuprofen 2020-0 Yes [id number] 800mg Take 1 [facility] 800 mg 7-21 tablet by ity of tablet 00:00: mouth [place] 00 every 6 Medical (six) Branch hours as needed for Pain (scale 4-6). ibuprofen 2020-0 Yes [id number] 800mg Take 1 [facility] 800 mg 7-21 tablet by ity of tablet 00:00: mouth [place] 00 every 6 Medical (six) Branch hours as needed for Pain (scale 4-6). ibuprofen 2020-0 Yes [id number] 800mg Take 1 [facility] 800 mg 7-21 tablet by ity of tablet 00:00: mouth [place] 00 every 6 Medical (six) Branch hours as needed for Pain (scale 4-6). ibuprofen 2020-0 Yes [id number] 800mg Take 1 [facility] 800 mg 7-21 tablet by ity of tablet 00:00: mouth [place] 00 every 6 Medical (six) Branch hours as needed for Pain (scale 4-6). ibuprofen 2020-0 Yes [id number] 800mg Take 1 [facility] 800 mg 7-21 tablet by ity of tablet 00:00: mouth [place] 00 every 6 Medical (six) Branch hours as needed for Pain (scale 4-6). ibuprofen 2020-0 Yes [id number] 800mg Take 1 [facility] 800 mg 7-21 tablet by ity of tablet 00:00: mouth [place] 00 every 6 Medical (six) Branch hours as needed for Pain (scale 4-6). ibuprofen 2020-0 Yes [id number] 800mg Take 1 [facility] 800 mg 7-21 tablet by ity of tablet 00:00: mouth [place] 00 every 6 Medical (six) Branch hours as needed for Pain (scale 4-6). ibuprofen 2020-0 Yes [id number] 800mg Take 1 [facility] 800 mg 7-21 tablet by ity of tablet 00:00: mouth [place] 00 every 6 Medical (six) Branch hours as needed for Pain (scale 4-6). ibuprofen 2020-0 Yes [id number] 800mg Take 1 [facility] 800 mg 7-21 tablet by ity of tablet 00:00: mouth [place] 00 every 6 Medical (six) Branch hours as needed for Pain (scale 4-6). ibuprofen 2020-0 Yes [id number] 800mg Take 1 [facility] 800 mg 7-21 tablet by ity of tablet 00:00: mouth [place] 00 every 6 Medical (six) Branch hours as needed for Pain (scale 4-6). ibuprofen 2020-0 Yes [id number] 800mg Take 1 [facility] 800 mg 7-21 tablet by ity of tablet 00:00: mouth [place] 00 every 6 Medical (six) Branch hours as needed for Pain (scale 4-6). ibuprofen 2020-0 Yes [id number] 800mg Take 1 [facility] 800 mg 7-21 tablet by ity of tablet 00:00: mouth [place] 00 every 6 Medical (six) Branch hours as needed for Pain (scale 4-6). ibuprofen 2020-0 Yes [id number] 800mg Take 1 [facility] 800 mg 7-21 tablet by ity of tablet 00:00: mouth [place] 00 every 6 Medical (six) Branch hours as needed for Pain (scale 4-6). ibuprofen 2020-0 Yes [id number] 800mg Take 1 [facility] 800 mg 7-21 tablet by ity of tablet 00:00: mouth [place] 00 every 6 Medical (six) Branch hours as needed for Pain (scale 4-6). ibuprofen 2020-0 Yes [id number] 800mg Take 1 [facility] 800 mg 7-21 tablet by ity of tablet 00:00: mouth [place] 00 every 6 Medical (six) Branch hours as needed for Pain (scale 4-6). ibuprofen 2020-0 Yes [id number] 800mg Take 1 [facility] 800 mg 7-21 tablet by ity of tablet 00:00: mouth [place] 00 every 6 Medical (six) Branch hours as needed for Pain (scale 4-6). ibuprofen 2020-0 Yes [id number] 800mg Take 1 [facility] 800 mg 7-21 tablet by ity of tablet 00:00: mouth [place] 00 every 6 Medical (six) Branch hours as needed for Pain (scale 4-6). ibuprofen 2020-0 2021- No [id number] 800mg Take 1 [facility] 800 mg 7-21 08-18 tablet by ity of tablet 00:00: 00:00 mouth [place] 00 :00 every 6 Medical (six) Branch hours as needed for Pain (scale 4-6). doxycycline 2019- No [id number] 100mg Take 1 Univers hyclate 100 02-2505 capsule by i ty of mg capsule 00:00: 04:59 mouth 2 [place] 00 :00 (two) Medical times Branch daily for 14 days. metroNIDAZO 2019- No [id number] 500mg Take 1 [facility] LE 500 mg 02-25 tablet by ity of tablet 00:00: 04:59 mouth 2 [place] 00 :00 (two) Medical times Branch daily for 14 days. levonorgest 2020- No 1{devic Un alex rel 10-05 e} ity of (LILETTA) 23:00: 21:54 [place] IUD 1 00 :00 [employer] Branch levonorgest 2020- No 1{devic 1 Device, Univers rel 10-05 e} Intrauteri ity of (LILETTA) 23:00: 21:54 [place], ONCE, [place] IUD 1 00 :00 1 dose, [employer] Fri Branch 10/05/19 at 1700, Routine levonorgest 2020- No 1{devic Un alex rel 10-05 e} ity of (LILETTA) 23:00: 21:54 [place] IUD 1 00 :00 [employer] Branch levonorgest 2020- No 1{devic 1 Device, Univers rel 10-05 e} Intrauteri ity of (LILETTA) 23:00: 21:54 ne, ONCE, [place] IUD 1 00 :00 1 dose, [employer] Fri Branch 10/05/19 at 1700, Routine ferrous 2018-08 Yes [id number] 325mg Take 1 Un alex sulfate 325 1-03 tablet by ity of mg (65 mg 00:00: mouth 2 [place] iron) 00 (two) Medical tablet times Branch daily. ibuprofen 2018-08 Yes [id number] 600mg Take 1 [facility] 600 mg 1-03 tablet by ity of tablet 00:00: mouth [place] 00 every 6 Medical (six) Branch hours as needed for Pain (scale 1-3) or Pain (scale 4-6) (Pain). Take with food or milk. 2018-08 Yes [id number] 1{tbl} Take 1 Univers vitamin 1-03 tablet by ity of w/FA tablet 00:00: mouth [place] 00 daily. Medical Branch docusate 2018-08 Yes [id number] 240mg Take 1 U nivers calcium 240 1-03 capsule by it y of mg capsule 00:00: mouth once [place] 00 daily as Medical needed for Branch Constipati on. ferrous 2018-08 Yes [id number] 325mg Take 1 Un alex sulfate 325 1-03 tablet by ity of mg (65 mg 00:00: mouth 2 [place] iron) 00 (two) Medical tablet times Branch daily. ibuprofen 2018-08 Yes [id number] 600mg Take 1 [facility] 600 mg 1-03 tablet by ity of tablet 00:00: mouth [place] 00 every 6 Medical (six) Branch hours as needed for Pain (scale 1-3) or Pain (scale 4-6) (Pain). Take with food or milk. 2018-08 Yes [id number] 1{tbl} Take 1 [facility] vitamin 1-03 tablet by ity of w/FA tablet 00:00: mouth [place] 00 daily. Medical Branch docusate 2018-08 Yes [id number] 240mg Take 1 U nivers calcium 240 1-03 capsule by it y of mg capsule 00:00: mouth once [place] 00 daily as Medical needed for Branch Constipati on. ferrous 2018-08 Yes [id number] 325mg Take 1 Un alex sulfate 325 1-03 tablet by ity of mg (65 mg 00:00: mouth 2 [place] iron) 00 (two) Medical tablet times Branch daily. ibuprofen 2018-08 Yes [id number] 600mg Take 1 [facility] 600 mg 1-03 tablet by ity of tablet 00:00: mouth [place] 00 every 6 Medical (six) Branch hours as needed for Pain (scale 1-3) or Pain (scale 4-6) (Pain). Take with food or milk. 2018-08 Yes [id number] 1{tbl} Take 1 [facility] vitamin 1-03 tablet by ity of w/FA tablet 00:00: mouth [place] 00 daily. Medical Branch docusate 2018-08 Yes [id number] 240mg Take 1 U nivers calcium 240 1-03 capsule by it y of mg capsule 00:00: mouth once [place] 00 daily as Medical needed for Branch Constipati on. ferrous 2018-08 Yes [id number] 325mg Take 1 Un alex sulfate 325 1-03 tablet by ity of mg (65 mg 00:00: mouth 2 [place] iron) 00 (two) Medical tablet times Branch daily. ibuprofen 2018-08 Yes [id number] 600mg Take 1 [facility] 600 mg 1-03 tablet by ity of tablet 00:00: mouth [place] 00 every 6 Medical (six) Branch hours as needed for Pain (scale 1-3) or Pain (scale 4-6) (Pain). Take with food or milk. 2018-08 Yes [id number] 1{tbl} Take 1 [facility] vitamin 1-03 tablet by ity of w/FA tablet 00:00: mouth [place] 00 daily. Medical Branch docusate 2018-08 Yes [id number] 240mg Take 1 U nivers calcium 240 1-03 capsule by it y of mg capsule 00:00: mouth once [place] 00 daily as Medical needed for Branch Constipati on. ferrous 2018-08 Yes [id number] 325mg Take 1 Un alex sulfate 325 1-03 tablet by ity of mg (65 mg 00:00: mouth 2 [place] iron) 00 (two) Medical tablet times Branch daily. ibuprofen 2018-08 Yes [id number] 600mg Take 1 [facility] 600 mg 1-03 tablet by ity of tablet 00:00: mouth [place] 00 every 6 Medical (six) Branch hours as needed for Pain (scale 1-3) or Pain (scale 4-6) (Pain). Take with food or milk. 2018-08 Yes [id number] 1{tbl} Take 1 [facility] vitamin 1-03 tablet by ity of w/FA tablet 00:00: mouth [place] 00 daily. Medical Branch docusate 2018-08 Yes [id number] 240mg Take 1 U nivers calcium 240 1-03 capsule by it y of mg capsule 00:00: mouth once [place] 00 daily as Medical needed for Branch Constipati on. ferrous 2018-08 Yes [id number] 325mg Take 1 Un alex sulfate 325 1-03 tablet by ity of mg (65 mg 00:00: mouth 2 [place] iron) 00 (two) Medical tablet times Branch daily. ibuprofen 2018-08 Yes [id number] 600mg Take 1 [facility] 600 mg 1-03 tablet by ity of tablet 00:00: mouth [place] 00 every 6 Medical (six) Branch hours as needed for Pain (scale 1-3) or Pain (scale 4-6) (Pain). Take with food or milk. 2018-08 Yes [id number] 1{tbl} Take 1 [facility] vitamin 1-03 tablet by [facility] w/FA tablet 00:00: mouth [place] 00 daily. Medical Branch docusate 2018-08 Yes [id number] 240mg Take 1 [facility] calcium 240 1-03 capsule by [facility] y [facility] mg capsule 00:00: mouth once [place] 00 daily as Medical needed for Branch Constipati on. ferrous 2018-08 Yes [id number] 325mg Take 1 Un alex sulfate 325 1-03 tablet by [facility] of mg (65 mg 00:00: mouth 2 [place] iron) 00 (two) Medical tablet times Branch daily. ibuprofen 2018-08 Yes [id number] 600mg Take 1 [facility] 600 mg 1-03 tablet by [facility] of tablet 00:00: mouth [place] 00 every 6 Medical (six) Branch hours as needed for Pain (scale 1-3) or Pain (scale 4-6) (Pain). Take with food or milk. 2018-08 Yes [id number] 1{tbl} Take 1 [facility] vitamin 1-03 tablet by [facility] w/FA tablet 00:00: mouth [place] 00 daily. Medical [facility] docusate 2018-08 Yes [id number] 240mg Take 1 [facility] calcium 240 1-03 capsule by [facility] mg capsule 00:00: mouth once [place] 00 daily as Medical needed for Branch Constipati on. ferrous 2018-08 Yes [id number] 325mg Take 1 [facility] alex sulfate 325 1-03 tablet by [facility] of mg (65 mg 00:00: mouth 2 [place] iron) 00 (two) Medical tablet times Branch daily. ibuprofen 2018-08 Yes [id number] 600mg Take 1 [facility] 600 mg 1-03 tablet by [facility] tablet 00:00: mouth [place] 00 every 6 Medical (six) Branch hours as needed for Pain (scale 1-3) or Pain (scale 4-6) (Pain). Take with food or milk. 2018-08 Yes [id number] 1{tbl} Take 1 [facility] vitamin 1-03 tablet by [facility] w/FA tablet 00:00: mouth [place] 00 daily. Medical [facility] docusate 2018-08 Yes [id number] 240mg Take 1 [facility] calcium 240 1-03 capsule by [facility] of mg capsule 00:00: mouth once [place] 00 daily as Medical needed for Branch Constipati on. ferrous 2018-08 Yes [id number] 325mg Take 1 [facility] alex sulfate 325 1-03 tablet by [facility] of mg (65 mg 00:00: mouth 2 [place] iron) 00 (two) Medical tablet times Branch daily. ibuprofen 2018-08 Yes [id number] 600mg Take 1 [facility] 600 mg 1-03 tablet by [facility] of tablet 00:00: mouth [place] 00 every 6 Medical (six) Branch hours as needed for Pain (scale 1-3) or Pain (scale 4-6) (Pain). Take with food or milk. 2018-08 Yes [id number] 1{tbl} Take 1 [facility] vitamin 1-03 tablet by [facility] w/FA tablet 00:00: mouth [place] 00 daily. [facility] docusate 2018-08 Yes [id number] 240mg Take 1 [facility] calcium 240 1-03 capsule by [facility] mg capsule 00:00: mouth once [place] 00 daily as Medical needed for Branch Constipati on. ferrous 2018-08 Yes [id number] 325mg Take 1 [facility] alex sulfate 325 1-03 tablet by [facility] mg (65 mg 00:00: mouth 2 [place] iron) 00 (two) Medical tablet times Branch daily. ibuprofen 2018-08 Yes [id number] 600mg Take 1 [facility] 600 mg 1-03 tablet by [facility] of tablet 00:00: mouth [place] 00 every 6 Medical (six) Branch hours as needed for Pain (scale 1-3) or Pain (scale 4-6) (Pain). Take with food or milk. 2018-08 Yes [id number] 1{tbl} Take 1 [facility] vitamin 1-03 tablet by [facility] w/FA tablet 00:00: mouth [place] 00 daily. Medical [facility] docusate 2018-08 Yes [id number] 240mg Take 1 [facility] calcium 240 1-03 capsule by [facility] of mg capsule 00:00: mouth once [place] 00 daily as Medical needed for Branch Constipati on. ferrous 2018- Yes [id number] 325mg Take 1 [facility] alex sulfate 325 1-03 tablet by [facility] of mg (65 mg 00:00: mouth 2 [place] iron) 00 (two) Medical tablet times Branch daily. ibuprofen 2018-08 Yes [id number] 600mg Take 1 [facility] 600 mg 1-03 tablet by [facility] of tablet 00:00: mouth [place] 00 every 6 Medical (six) Branch hours as needed for Pain (scale 1-3) or Pain (scale 4-6) (Pain). Take with food or milk. 2018-08 Yes [id number] 1{tbl} Take 1 [facility] vitamin 1-03 tablet by [facility] of w/FA tablet 00:00: mouth [place] 00 daily. [facility] docusate 2018-08 Yes [id number] 240mg Take 1 [facility] calcium 240 1-03 capsule by [facility] of mg capsule 00:00: mouth once [place] 00 daily as Medical needed for Branch Constipati on. ferrous 2018-08 Yes [id number] 325mg Take 1 [facility] alex sulfate 325 1-03 tablet by [facility] of mg (65 mg 00:00: mouth 2 [place] iron) 00 (two) Medical tablet times Branch daily. ibuprofen 2018-08 Yes [id number] 600mg Take 1 [facility] 600 mg 1-03 tablet by [facility] of tablet 00:00: mouth [place] 00 every 6 Medical (six) Branch hours as needed for Pain (scale 1-3) or Pain (scale 4-6) (Pain). Take with food or milk. 2018-08 Yes [id number] 1{tbl} Take 1 [facility] vitamin 1-03 tablet by [facility] of w/FA tablet 00:00: mouth [place] 00 daily. Medical Branch docusate 2018-08 Yes [id number] 240mg Take 1 [facility] calcium 240 1-03 capsule by [facility] of mg capsule 00:00: mouth once [place] 00 daily as Medical needed for Branch Constipati on. ferrous 2018-08 Yes [id number] 325mg Take 1 [facility] alex sulfate 325 1-03 tablet by [facility] of mg (65 mg 00:00: mouth 2 [place] iron) 00 (two) Medical tablet times Branch daily. ibuprofen 2018-08 Yes [id number] 600mg Take 1 [facility] 600 mg 1-03 tablet by [facility] of tablet 00:00: mouth [place] 00 every 6 Medical (six) Branch hours as needed for Pain (scale 1-3) or Pain (scale 4-6) (Pain). Take with food or milk. 2018-08 Yes [id number] 1{tbl} Take 1 [facility] vitamin 1-03 tablet by [facility] w/FA tablet 00:00: mouth [place] 00 daily. Medical Branch docusate 2018-08 Yes [id number] 240mg Take 1 [facility] calcium 240 1-03 capsule by [facility] of mg capsule 00:00: mouth once [place] 00 daily as Medical needed for Branch Constipati on. ferrous 2018-08 Yes [id number] 325mg Take 1 [facility] alex sulfate 325 1-03 tablet by [facility] of mg (65 mg 00:00: mouth 2 [place] iron) 00 (two) Medical tablet times Branch daily. ibuprofen 2018-08 Yes [id number] 600mg Take 1 [facility] 600 mg 1-03 tablet by [facility] of tablet 00:00: mouth [place] 00 every 6 Medical (six) Branch hours as needed for Pain (scale 1-3) or Pain (scale 4-6) (Pain). Take with food or milk. 2018-08 Yes [id number] 1{tbl} Take 1 [facility] vitamin 1-03 tablet by [facility] of w/FA tablet 00:00: mouth [place] 00 daily. Medical [facility] docusate 2018-08 Yes [id number] 240mg Take 1 [facility] calcium 240 1-03 capsule by [facility] of mg capsule 00:00: mouth once [place] 00 daily as Medical needed for Branch Constipati on. ferrous 2018-08 Yes [id number] 325mg Take 1 [facility] alex sulfate 325 1-03 tablet by [facility] of mg (65 mg 00:00: mouth 2 [place] iron) 00 (two) Medical tablet times Branch daily. ibuprofen 2018-08 Yes [id number] 600mg Take 1 [facility] 600 mg 1-03 tablet by [facility] of tablet 00:00: mouth [place] 00 every 6 Medical (six) Branch hours as needed for Pain (scale 1-3) or Pain (scale 4-6) (Pain). Take with food or milk. 2018-08 Yes [id number] 1{tbl} Take 1 [facility] vitamin 1-03 tablet by [facility] of w/FA tablet 00:00: mouth [place] 00 daily. Medical [facility] docusate 2018-08 Yes [id number] 240mg Take 1 [facility] calcium 240 1-03 capsule by [facility] of mg capsule 00:00: mouth once [place] 00 daily as Medical needed for Branch Constipati on. ferrous 2018-08 Yes [id number] 325mg Take 1 [facility] alex sulfate 325 1-03 tablet by [facility] of mg (65 mg 00:00: mouth 2 [place] iron) 00 (two) Medical tablet times Branch daily. ibuprofen 2018-08 Yes [id number] 600mg Take 1 [facility] 600 mg 1-03 tablet by [facility] of tablet 00:00: mouth [place] 00 every 6 Medical (six) Branch hours as needed for Pain (scale 1-3) or Pain (scale 4-6) (Pain). Take with food or milk. 2018-08 Yes [id number] 1{tbl} Take 1 [facility] vitamin 1-03 tablet by [facility] of w/FA tablet 00:00: mouth [place] 00 daily. Medical [facility] docusate 2018-08 Yes [id number] 240mg Take 1 [facility] calcium 240 1-03 capsule by [facility] of mg capsule 00:00: mouth once [place] 00 daily as Medical needed for Branch Constipati on. ferrous 2018-08 Yes [id number] 325mg Take 1 [facility] alex sulfate 325 1-03 tablet by [facility] of mg (65 mg 00:00: mouth 2 [place] iron) 00 (two) Medical tablet times Branch daily. ibuprofen 2018-08 Yes [id number] 600mg Take 1 [facility] 600 mg 1-03 tablet by [facility] of tablet 00:00: mouth [place] 00 every 6 Medical (six) Branch hours as needed for Pain (scale 1-3) or Pain (scale 4-6) (Pain). Take with food or milk. 2018-08 Yes [id number] 1{tbl} Take 1 [facility] vitamin 1-03 tablet by [facility] of w/FA tablet 00:00: mouth [place] 00 daily. Medical Branch docusate 2018-08 Yes [id number] 240mg Take 1 [facility] calcium 240 1-03 capsule by [facility] of mg capsule 00:00: mouth once [place] 00 daily as Medical needed for Branch Constipati on. ferrous 2018-08 Yes [id number] 325mg Take 1 [facility] alex sulfate 325 1-03 tablet by [facility] of mg (65 mg 00:00: mouth 2 [place] iron) 00 (two) Medical tablet times Branch daily. ibuprofen 2018-08 Yes [id number] 600mg Take 1 [facility] 600 mg 1-03 tablet by [facility] of tablet 00:00: mouth [place] 00 every 6 Medical (six) Branch hours as needed for Pain (scale 1-3) or Pain (scale 4-6) (Pain). Take with food or milk. 2018-08 Yes [id number] 1{tbl} Take 1 [facility] vitamin 1-03 tablet by [facility] of w/FA tablet 00:00: mouth [place] 00 daily. Medical Branch docusate 2018-08 Yes [id number] 240mg Take 1 [facility] calcium 240 1-03 capsule by [facility] of mg capsule 00:00: mouth once [place] 00 daily as Medical needed for Branch Constipati on. ferrous 2018-08 Yes [id number] 325mg Take 1 [facility] alex sulfate 325 1-03 tablet by [facility] of mg (65 mg 00:00: mouth 2 [place] iron) 00 (two) Medical tablet times Branch daily. ibuprofen 2018-08 Yes [id number] 600mg Take 1 [facility] 600 mg 1-03 tablet by [facility] of tablet 00:00: mouth [place] 00 every 6 Medical (six) Branch hours as needed for Pain (scale 1-3) or Pain (scale 4-6) (Pain). Take with food or milk. 2018-08 Yes [id number] 1{tbl} Take 1 [facility] vitamin 1-03 tablet by [facility] w/FA tablet 00:00: mouth [place] [facility]. [facility] Yes [id number] 240mg Take 1 [facility] calcium 240 1-03 capsule by [facility] y of mg capsule 00:00: mouth once [place] 00 daily as Medical needed for Branch Constipati on. ferrous 2018-08 Yes [id number] 325mg Take 1 [facility] alex sulfate 325 1-03 tablet by [facility] of mg (65 mg 00:00: mouth 2 [place] iron) 00 (two) Medical tablet times Branch daily. ibuprofen 2018-08 Yes [id number] 600mg Take 1 [facility] 600 mg 1-03 tablet by [facility] of tablet 00:00: mouth [place] 00 every 6 Medical (six) Branch hours as needed for Pain (scale 1-3) or Pain (scale 4-6) (Pain). Take with food or milk. 2018-08 Yes [id number] 1{tbl} Take 1 [facility] vitamin 1-03 tablet by [facility] w/FA tablet 00:00: mouth [place] 00 daily. [facility] Yes [id number] 240mg Take 1 [facility] calcium 240 1-03 capsule by [facility] of mg capsule 00:00: mouth once [place] 00 daily as Medical needed for Branch Constipati on. ferrous 2018-08 Yes [id number] 325mg Take 1 [facility] alex sulfate 325 1-03 tablet by [facility] of mg (65 mg 00:00: mouth 2 [place] iron) 00 (two) Medical tablet times Branch daily. ibuprofen 2018-08 Yes [id number] 600mg Take 1 [facility] 600 mg 1-03 tablet by [facility] of tablet 00:00: mouth [place] 00 every 6 Medical (six) Branch hours as needed for Pain (scale 1-3) or Pain (scale 4-6) (Pain). Take with food or milk. 2018-08 Yes [id number] 1{tbl} Take 1 [facility] vitamin 1-03 tablet by [facility] of w/FA tablet 00:00: mouth [place] 00 daily. Medical Branch docusate 2018-08 Yes [id number] 240mg Take 1 [facility] calcium 240 1-03 capsule by [facility] of mg capsule 00:00: mouth once [place] 00 daily as Medical needed for Branch Constipati on. ferrous 2018-08 Yes [id number] 325mg Take 1 [facility] alex sulfate 325 1-03 tablet by [facility] of mg (65 mg 00:00: mouth 2 [place] iron) 00 (two) Medical tablet times Branch daily. ibuprofen 2018-08 Yes [id number] 600mg Take 1 [facility] 600 mg 1-03 tablet by [facility] of tablet 00:00: mouth [place] 00 every 6 Medical (six) Branch hours as needed for Pain (scale 1-3) or Pain (scale 4-6) (Pain). Take with food or milk. 2018-08 Yes [id number] 1{tbl} Take 1 [facility] vitamin 1-03 tablet by [facility] of w/FA tablet 00:00: mouth [place] 00 daily. Medical Branch docusate 2018-08 Yes [id number] 240mg Take 1 [facility] calcium 240 1-03 capsule by [facility] of mg capsule 00:00: mouth once [place] 00 daily as Medical needed for Branch Constipati on. ferrous 2018-08 Yes [id number] 325mg Take 1 [facility] alex sulfate 325 1-03 tablet by [facility] of mg (65 mg 00:00: mouth 2 [place] iron) 00 (two) Medical tablet times Branch daily. ibuprofen 2018-08 Yes [id number] 600mg Take 1 [facility] 600 mg 1-03 tablet by [facility] of tablet 00:00: mouth [place] 00 every 6 Medical (six) Branch hours as needed for Pain (scale 1-3) or Pain (scale 4-6) (Pain). Take with food or milk. 2018-08 Yes [id number] 1{tbl} Take 1 [facility] vitamin 1-03 tablet by [facility] of w/FA tablet 00:00: mouth [place] 00 daily. Medical [facility] docusate 2018-08 Yes [id number] 240mg Take 1 [facility] calcium 240 1-03 capsule by [facility] of mg capsule 00:00: mouth once [place] 00 daily as Medical needed for Branch Constipati on. ferrous 2018-08 Yes [id number] 325mg Take 1 [facility] alex sulfate 325 1-03 tablet by [facility] of mg (65 mg 00:00: mouth 2 [place] iron) 00 (two) Medical tablet times Branch daily. ibuprofen 2018-08 Yes [id number] 600mg Take 1 [facility] 600 mg 1-03 tablet by [facility] of tablet 00:00: mouth [place] 00 every 6 Medical (six) Branch hours as needed for Pain (scale 1-3) or Pain (scale 4-6) (Pain). Take with food or milk. 2018-08 Yes [id number] 1{tbl} Take 1 [facility] vitamin 1-03 tablet by [facility] w/FA tablet 00:00: mouth [place] 00 daily. [facility] Yes [id number] 240mg Take 1 [facility] calcium 240 1-03 capsule by [facility] of mg capsule 00:00: mouth once [place] 00 daily as Medical needed for Branch Constipati on. ferrous 2018-08 Yes [id number] 325mg Take 1 [facility] alex sulfate 325 1-03 tablet by [facility] of mg (65 mg 00:00: mouth 2 [place] iron) 00 (two) Medical tablet times Branch daily. ibuprofen 2018-08 Yes [id number] 600mg Take 1 [facility] 600 mg 1-03 tablet by [facility] of tablet 00:00: mouth [place] 00 every 6 Medical (six) Branch hours as needed for Pain (scale 1-3) or Pain (scale 4-6) (Pain). Take with food or milk. 2018-08 Yes [id number] 1{tbl} Take 1 [facility] vitamin 1-03 tablet by [facility] of w/FA tablet 00:00: mouth [place] 00 daily. Medical Branch docusate 2018-08 Yes [id number] 240mg Take 1 [facility] calcium 240 1-03 capsule by [facility] of mg capsule 00:00: mouth once [place] 00 daily as Medical needed for Branch Constipati on. ferrous 2018-08 Yes [id number] 325mg Take 1 [facility] alex sulfate 325 1-03 tablet by [facility] of mg (65 mg 00:00: mouth 2 [place] iron) 00 (two) Medical tablet times Branch daily. ibuprofen 2018-08 Yes [id number] 600mg Take 1 [facility] 600 mg 1-03 tablet by [facility] of tablet 00:00: mouth [place] 00 every 6 Medical (six) Branch hours as needed for Pain (scale 1-3) or Pain (scale 4-6) (Pain). Take with food or milk. 2018-08 Yes [id number] 1{tbl} Take 1 [facility] vitamin 1-03 tablet by [facility] of w/FA tablet 00:00: mouth [place] 00 daily. Medical Branch docusate 2018-08 Yes [id number] 240mg Take 1 [facility] calcium 240 1-03 capsule by [facility] of mg capsule 00:00: mouth once [place] 00 daily as Medical needed for Branch Constipati on. ferrous 2018-08 Yes [id number] 325mg Take 1 [facility] alex sulfate 325 1-03 tablet by [facility] of mg (65 mg 00:00: mouth 2 [place] iron) 00 (two) Medical tablet times Branch daily. ibuprofen 2018-08 Yes [id number] 600mg Take 1 [facility] 600 mg 1-03 tablet by [facility] of tablet 00:00: mouth [place] 00 every 6 Medical (six) Branch hours as needed for Pain (scale 1-3) or Pain (scale 4-6) (Pain). Take with food or milk. 2018-08 Yes [id number] 1{tbl} Take 1 [facility] vitamin 1-03 tablet by [facility] of w/FA tablet 00:00: mouth [place] 00 daily. Medical [facility] docusate 2018-08 Yes [id number] 240mg Take 1 [facility] calcium 240 1-03 capsule by [facility] of mg capsule 00:00: mouth once [place] 00 daily as Medical needed for Branch Constipati on. ferrous 2018-08 Yes [id number] 325mg Take 1 [facility] alex sulfate 325 1-03 tablet by [facility] of mg (65 mg 00:00: mouth 2 [place] iron) 00 (two) Medical tablet times Branch daily. ibuprofen 2018-08 Yes [id number] 600mg Take 1 [facility] 600 mg 1-03 tablet by [facility] of tablet 00:00: mouth [place] 00 every 6 Medical (six) Branch hours as needed for Pain (scale 1-3) or Pain (scale 4-6) (Pain). Take with food or milk. 2018-08 Yes [id number] 1{tbl} Take 1 [facility] vitamin 1-03 tablet by [facility] of w/FA tablet 00:00: mouth [place] 00 daily. Medical [facility] docusate 2018-08 Yes [id number] 240mg Take 1 [facility] calcium 240 1-03 capsule by [facility] of mg capsule 00:00: mouth once [place] 00 daily as Medical needed for Branch Constipati on. ferrous 2018-08 Yes [id number] 325mg Take 1 [facility] alex sulfate 325 1-03 tablet by [facility] of mg (65 mg 00:00: mouth 2 [place] iron) 00 (two) Medical tablet times Branch daily. ibuprofen 2018-08 Yes [id number] 600mg Take 1 [facility] 600 mg 1-03 tablet by [facility] of tablet 00:00: mouth [place] 00 every 6 Medical (six) Branch hours as needed for Pain (scale 1-3) or Pain (scale 4-6) (Pain). Take with food or milk. 2018-08 Yes [id number] 1{tbl} Take 1 [facility] vitamin 1-03 tablet by [facility] of w/FA tablet 00:00: mouth [place] 00 daily. Medical Branch docusate 2018-08 Yes [id number] 240mg Take 1 [facility] calcium 240 1-03 capsule by [facility] of mg capsule 00:00: mouth once [place] 00 daily as Medical needed for Branch Constipati on. ferrous 2018-08 Yes [id number] 325mg Take 1 [facility] alex sulfate 325 1-03 tablet by [facility] of mg (65 mg 00:00: mouth 2 [place] iron) 00 (two) Medical tablet times Branch daily. ibuprofen 2018-08 Yes [id number] 600mg Take 1 [facility] 600 mg 1-03 tablet by [facility] of tablet 00:00: mouth [place] 00 every 6 Medical (six) Branch hours as needed for Pain (scale 1-3) or Pain (scale 4-6) (Pain). Take with food or milk. 2018-08 Yes [id number] 1{tbl} Take 1 [facility] vitamin 1-03 tablet by [facility] of w/FA tablet 00:00: mouth [place] 00 daily. Medical Branch docusate 2018-08 Yes [id number] 240mg Take 1 [facility] calcium 240 1-03 capsule by [facility] of mg capsule 00:00: mouth once [place] 00 daily as Medical needed for Branch Constipati on. ferrous 2018-08 Yes [id number] 325mg Take 1 [facility] alex sulfate 325 1-03 tablet by [facility] of mg (65 mg 00:00: mouth 2 [place] iron) 00 (two) Medical tablet times Branch daily. ibuprofen 2018-08 Yes [id number] 600mg Take 1 [facility] 600 mg 1-03 tablet by [facility] of tablet 00:00: mouth [place] 00 every 6 Medical (six) Branch hours as needed for Pain (scale 1-3) or Pain (scale 4-6) (Pain). Take with food or milk. 2018-08 Yes [id number] 1{tbl} Take 1 [facility] vitamin 1-03 tablet by [facility] of w/FA tablet 00:00: mouth [place] 00 daily. Medical [facility] docusate 2018-08 Yes [id number] 240mg Take 1 [facility] calcium 240 1-03 capsule by [facility] of mg capsule 00:00: mouth once [place] 00 daily as Medical needed for Branch Constipati on. ferrous 2018-08 Yes [id number] 325mg Take 1 [facility] alex sulfate 325 1-03 tablet by [facility] of mg (65 mg 00:00: mouth 2 [place] iron) 00 (two) Medical tablet times Branch daily. ibuprofen 2018-08 Yes [id number] 600mg Take 1 [facility] 600 mg 1-03 tablet by [facility] of tablet 00:00: mouth [place] 00 every 6 Medical (six) Branch hours as needed for Pain (scale 1-3) or Pain (scale 4-6) (Pain). Take with food or milk. 2018-08 Yes [id number] 1{tbl} Take 1 [facility] vitamin 1-03 tablet by [facility] of w/FA tablet 00:00: mouth [place] 00 daily. Medical [facility] docusate 2018-08 Yes [id number] 240mg Take 1 [facility] calcium 240 1-03 capsule by [facility] of mg capsule 00:00: mouth once [place] 00 daily as Medical needed for Branch Constipati on. ferrous 2018-08 Yes [id number] 325mg Take 1 [facility] alex sulfate 325 1-03 tablet by [facility] of mg (65 mg 00:00: mouth 2 [place] iron) 00 (two) Medical tablet times Branch daily. ibuprofen 2018-08 Yes [id number] 600mg Take 1 [facility] 600 mg 1-03 tablet by [facility] of tablet 00:00: mouth [place] 00 every 6 Medical (six) Branch hours as needed for Pain (scale 1-3) or Pain (scale 4-6) (Pain). Take with food or milk. 2018-08 Yes [id number] 1{tbl} Take 1 [facility] vitamin 1-03 tablet by [facility] of w/FA tablet 00:00: mouth [place] 00 daily. Medical [facility] docusate 2018-08 Yes [id number] 240mg Take 1 [facility] calcium 240 1-03 capsule by [facility] of mg capsule 00:00: mouth once [place] 00 daily as Medical needed for Branch Constipati on. ferrous 2018-08 Yes [id number] 325mg Take 1 [facility] alex sulfate 325 1-03 tablet by [facility] of mg (65 mg 00:00: mouth 2 [place] iron) 00 (two) Medical tablet times Branch daily. ibuprofen 2018-08 Yes [id number] 600mg Take 1 [facility] 600 mg 1-03 tablet by [facility] of tablet 00:00: mouth [place] 00 every 6 Medical (six) Branch hours as needed for Pain (scale 1-3) or Pain (scale 4-6) (Pain). Take with food or milk. 2018-08 Yes [id number] 1{tbl} Take 1 [facility] vitamin 1-03 tablet by [facility] of w/FA tablet 00:00: mouth [place] 00 daily. Medical [facility] docusate 2018-08 Yes [id number] 240mg Take 1 [facility] calcium 240 1-03 capsule by [facility] of mg capsule 00:00: mouth once [place] 00 daily as Medical needed for Branch Constipati on. ferrous 2018-08 Yes [id number] 325mg Take 1 [facility] alex sulfate 325 1-03 tablet by [facility] of mg (65 mg 00:00: mouth 2 [place] iron) 00 (two) Medical tablet times Branch daily. ibuprofen 2018-08 Yes [id number] 600mg Take 1 [facility] 600 mg 1-03 tablet by [facility] of tablet 00:00: mouth [place] 00 every 6 Medical (six) Branch hours as needed for Pain (scale 1-3) or Pain (scale 4-6) (Pain). Take with food or milk. 2018-08 Yes [id number] 1{tbl} Take 1 [facility] vitamin 1-03 tablet by [facility] of w/FA tablet 00:00: mouth [place] 00 daily. Medical [facility] docusate 2018-08 Yes [id number] 240mg Take 1 [facility] calcium 240 1-03 capsule by [facility] of mg capsule 00:00: mouth once [place] 00 daily as Medical needed for Branch Constipati on. ferrous 2018-08 Yes [id number] 325mg Take 1 [facility] alex sulfate 325 1-03 tablet by [facility] of mg (65 mg 00:00: mouth 2 [place] iron) 00 (two) Medical tablet times Branch daily. ibuprofen 2018-08 Yes [id number] 600mg Take 1 [facility] 600 mg 1-03 tablet by [facility] of tablet 00:00: mouth [place] 00 every 6 Medical (six) Branch hours as needed for Pain (scale 1-3) or Pain (scale 4-6) (Pain). Take with food or milk. 2018-08 Yes [id number] 1{tbl} Take 1 [facility] vitamin 1-03 tablet by [facility] of w/FA tablet 00:00: mouth [place] 00 daily. Medical [facility] docusate 2018-08 Yes [id number] 240mg Take 1 [facility] calcium 240 1-03 capsule by [facility] of mg capsule 00:00: mouth once [place] 00 daily as Medical needed for Branch Constipati on. ferrous 2018-08 Yes [id number] 325mg Take 1 [facility] alex sulfate 325 1-03 tablet by [facility] of mg (65 mg 00:00: mouth 2 [place] iron) 00 (two) Medical tablet times Branch daily. ibuprofen 2018-08 Yes [id number] 600mg Take 1 [facility] 600 mg 1-03 tablet by [facility] of tablet 00:00: mouth [place] 00 every 6 Medical (six) Branch hours as needed for Pain (scale 1-3) or Pain (scale 4-6) (Pain). Take with food or milk. 2018-08 Yes [id number] 1{tbl} Take 1 [facility] vitamin 1-03 tablet by [facility] of w/FA tablet 00:00: mouth [place] 00 daily. Medical Branch docusate 2018-08 Yes [id number] 240mg Take 1 [facility] calcium 240 1-03 capsule by [facility] of mg capsule 00:00: mouth once [place] 00 daily as Medical needed for Branch Constipati on. ferrous 2018-08 Yes [id number] 325mg Take 1 [facility] alex sulfate 325 1-03 tablet by [facility] of mg (65 mg 00:00: mouth 2 [place] iron) 00 (two) Medical tablet times Branch daily. ibuprofen 2018-08 Yes [id number] 600mg Take 1 [facility] 600 mg 1-03 tablet by [facility] of tablet 00:00: mouth [place] 00 every 6 Medical (six) Branch hours as needed for Pain (scale 1-3) or Pain (scale 4-6) (Pain). Take with food or milk. 2018-08 Yes [id number] 1{tbl} Take 1 [facility] vitamin 1-03 tablet by [facility] of w/FA tablet 00:00: mouth [place] 00 daily. Medical [facility] docusate 2018-08 Yes [id number] 240mg Take 1 [facility] calcium 240 1-03 capsule by [facility] of mg capsule 00:00: mouth once [place] 00 daily as Medical needed for Branch Constipati on. ferrous 2018-08 Yes [id number] 325mg Take 1 Un alex sulfate 325 1-03 tablet by [facility] of mg (65 mg 00:00: mouth 2 [place] iron) 00 (two) Medical tablet times Branch daily. ibuprofen 2018-08 Yes [id number] 600mg Take 1 [facility] 600 mg 1-03 tablet by [facility] of tablet 00:00: mouth [place] 00 every 6 Medical (six) Branch hours as needed for Pain (scale 1-3) or Pain (scale 4-6) (Pain). Take with food or milk. 2018-08 Yes [id number] 1{tbl} Take 1 [facility] vitamin 1-03 tablet by [facility] w/FA tablet 00:00: mouth [place] 00 daily. [facility] Yes [id number] 240mg Take 1 [facility] calcium 240 1-03 capsule by [facility] y of mg capsule 00:00: mouth once [place] 00 daily as Medical needed for Branch Constipati on. ferrous 2018-08 Yes [id number] 325mg Take 1 Un alex sulfate 325 1-03 tablet by [facility] of mg (65 mg 00:00: mouth 2 [place] iron) 00 (two) Medical tablet times Branch daily. ibuprofen 2018-08 Yes [id number] 600mg Take 1 [facility] 600 mg 1-03 tablet by [facility] of tablet 00:00: mouth [place] 00 every 6 Medical (six) Branch hours as needed for Pain (scale 1-3) or Pain (scale 4-6) (Pain). Take with food or milk. 2018-08 Yes [id number] 1{tbl} Take 1 [facility] vitamin 1-03 tablet by [facility] w/FA tablet 00:00: mouth [place] 00 daily. Medical [facility] docusate 2018-08 Yes [id number] 240mg Take 1 [facility] calcium 240 1-03 capsule by it y of mg capsule 00:00: mouth once [place] 00 daily as Medical needed for Branch Constipati on. ferrous 2018-08 Yes [id number] 325mg Take 1 Un alex sulfate 325 1-03 tablet by [facility] of mg (65 mg 00:00: mouth 2 [place] iron) 00 (two) Medical tablet times Branch daily. ibuprofen 2018-08 Yes [id number] 600mg Take 1 [facility] 600 mg 1-03 tablet by [facility] of tablet 00:00: mouth [place] 00 every 6 Medical (six) Branch hours as needed for Pain (scale 1-3) or Pain (scale 4-6) (Pain). Take with food or milk. 2018-08 Yes [id number] 1{tbl} Take 1 [facility] vitamin 1-03 tablet by [facility] of w/FA tablet 00:00: mouth [place] 00 daily. Medical [facility] docusate 2018-08 Yes [id number] 240mg Take 1 [facility] n[facility] calcium 240 1-03 capsule by [facility] y of mg capsule 00:00: mouth once [place] 00 daily as Medical needed for Branch Constipati on. ferrous 2018-08 Yes [id number] 325mg Take 1 Un alex sulfate 325 1-03 tablet by [facility] of mg (65 mg 00:00: mouth 2 [place] iron) 00 (two) Medical tablet times Branch daily. ibuprofen 2018-08 Yes [id number] 600mg Take 1 [facility] 600 mg 1-03 tablet by [facility] of tablet 00:00: mouth [place] 00 every 6 Medical (six) Branch hours as needed for Pain (scale 1-3) or Pain (scale 4-6) (Pain). Take with food or milk. 2018-08 Yes [id number] 1{tbl} Take 1 [facility] vitamin 1-03 tablet by [facility] of w/FA tablet 00:00: mouth [place] 00 daily. Medical Branch docusate 2018-08 Yes [id number] 240mg Take 1 [facility] calcium 240 1-03 capsule by [facility] y of mg capsule 00:00: mouth once [place] 00 daily as Medical needed for Branch Constipati on. ferrous 2018-08 Yes [id number] 325mg Take 1 [facility] alex sulfate 325 1-03 tablet by [facility] of mg (65 mg 00:00: mouth 2 [place] iron) 00 (two) Medical tablet times Branch daily. ibuprofen 2018-08 Yes [id number] 600mg Take 1 [facility] 600 mg 1-03 tablet by [facility] of tablet 00:00: mouth [place] 00 every 6 Medical (six) Branch hours as needed for Pain (scale 1-3) or Pain (scale 4-6) (Pain). Take with food or milk. 2018-08 Yes [id number] 1{tbl} Take 1 [facility] vitamin 1-03 tablet by [facility] of w/FA tablet 00:00: mouth [place] 00 daily. Medical [facility] docusate 2018-08 Yes [id number] 240mg Take 1 [facility] calcium 240 1-03 capsule by [facility] of mg capsule 00:00: mouth once [place] 00 daily as Medical needed for Branch Constipati on. ferrous 2018-08 Yes [id number] 325mg Take 1 [facility] alex sulfate 325 1-03 tablet by [facility] of mg (65 mg 00:00: mouth 2 [place] iron) 00 (two) Medical tablet times Branch daily. ibuprofen 2018-08 Yes [id number] 600mg Take 1 [facility] 600 mg 1-03 tablet by [facility] of tablet 00:00: mouth [place] 00 every 6 Medical (six) Branch hours as needed for Pain (scale 1-3) or Pain (scale 4-6) (Pain). Take with food or milk. 2018-08 Yes [id number] 1{tbl} Take 1 [facility] vitamin 1-03 tablet by [facility] w/FA tablet 00:00: mouth [place] 00 daily. Medical Branch docusate 2018-08 Yes [id number] 240mg Take 1 [facility] calcium 240 1-03 capsule by [facility] of mg capsule 00:00: mouth once [place] 00 daily as Medical needed for Branch Constipati on. ferrous 2018-08 Yes [id number] 325mg Take 1 [facility] alex sulfate 325 1-03 tablet by [facility] of mg (65 mg 00:00: mouth 2 [place] iron) 00 (two) Medical tablet times Branch daily. ibuprofen 2018-08 Yes [id number] 600mg Take 1 [facility] 600 mg 1-03 tablet by [facility] of tablet 00:00: mouth [place] 00 every 6 Medical (six) Branch hours as needed for Pain (scale 1-3) or Pain (scale 4-6) (Pain). Take with food or milk. 2018-08 Yes [id number] 1{tbl} Take 1 [facility] vitamin 1-03 tablet by [facility] of w/FA tablet 00:00: mouth [place] 00 daily. Medical Branch docusate 2018-08 Yes [id number] 240mg Take 1 [facility] calcium 240 1-03 capsule by [facility] of mg capsule 00:00: mouth once [place] 00 daily as Medical needed for Branch Constipati on. ferrous 2018-08 Yes [id number] 325mg Take 1 [facility] alex sulfate 325 1-03 tablet by [facility] of mg (65 mg 00:00: mouth 2 [place] iron) 00 (two) Medical tablet times Branch daily. ibuprofen 2018-08 Yes [id number] 600mg Take 1 [facility] 600 mg 1-03 tablet by [facility] of tablet 00:00: mouth [place] 00 every 6 Medical (six) Branch hours as needed for Pain (scale 1-3) or Pain (scale 4-6) (Pain). Take with food or milk. 2018-08 Yes [id number] 1{tbl} Take 1 [facility] vitamin 1-03 tablet by [facility] of w/FA tablet 00:00: mouth [place] 00 daily. Medical Branch docusate 2018-08 Yes [id number] 240mg Take 1 [facility] calcium 240 1-03 capsule by [facility] of mg capsule 00:00: mouth once [place] 00 daily as Medical needed for Branch Constipati on. ferrous 2018-08 Yes [id number] 325mg Take 1 [facility] alex sulfate 325 1-03 tablet by [facility] of mg (65 mg 00:00: mouth 2 [place] iron) 00 (two) Medical tablet times Branch daily. ibuprofen 2018-08 Yes [id number] 600mg Take 1 [facility] 600 mg 1-03 tablet by [facility] of tablet 00:00: mouth [place] 00 every 6 Medical (six) Branch hours as needed for Pain (scale 1-3) or Pain (scale 4-6) (Pain). Take with food or milk. 2018-08 Yes [id number] 1{tbl} Take 1 [facility] vitamin 1-03 tablet by [facility] of w/FA tablet 00:00: mouth [place] 00 daily. Medical Branch docusate 2018-08 Yes [id number] 240mg Take 1 [facility] calcium 240 1-03 capsule by [facility] of mg capsule 00:00: mouth once [place] 00 daily as Medical needed for Branch Constipati on. ferrous 2018-08 Yes [id number] 325mg Take 1 [facility] alex sulfate 325 1-03 tablet by [facility] of mg (65 mg 00:00: mouth 2 [place] iron) 00 (two) Medical tablet times Branch daily. ibuprofen 2018-08 Yes [id number] 600mg Take 1 [facility] 600 mg 1-03 tablet by [facility] of tablet 00:00: mouth [place] 00 every 6 Medical (six) Branch hours as needed for Pain (scale 1-3) or Pain (scale 4-6) (Pain). Take with food or milk. 2018-08 Yes [id number] 1{tbl} Take 1 [facility] vitamin 1-03 tablet by [facility] of w/FA tablet 00:00: mouth [place] 00 daily. Medical Branch docusate 2018-08 Yes [id number] 240mg Take 1 [facility] calcium 240 1-03 capsule by [facility] of mg capsule 00:00: mouth once [place] 00 daily as Medical needed for Branch Constipati on. ferrous 2018-08 Yes [id number] 325mg Take 1 [facility] alex sulfate 325 1-03 tablet by [facility] of mg (65 mg 00:00: mouth 2 [place] iron) 00 (two) Medical tablet times Branch daily. ibuprofen 2018-08 Yes [id number] 600mg Take 1 [facility] 600 mg 1-03 tablet by [facility] of tablet 00:00: mouth [place] 00 every 6 Medical (six) Branch hours as needed for Pain (scale 1-3) or Pain (scale 4-6) (Pain). Take with food or milk. 2018-08 Yes [id number] 1{tbl} Take 1 [facility] vitamin 1-03 tablet by [facility] of w/FA tablet 00:00: mouth [place] 00 daily. Medical Branch docusate 2018-08 Yes [id number] 240mg Take 1 [facility] calcium 240 1-03 capsule by [facility] of mg capsule 00:00: mouth once [place] 00 daily as Medical needed for Branch Constipati on. ferrous 2018-08 Yes [id number] 325mg Take 1 [facility] alex sulfate 325 1-03 tablet by [facility] of mg (65 mg 00:00: mouth 2 [place] iron) 00 (two) Medical tablet times Branch daily. ibuprofen 2018-08 Yes [id number] 600mg Take 1 [facility] 600 mg 1-03 tablet by [facility] of tablet 00:00: mouth [place] 00 every 6 Medical (six) Branch hours as needed for Pain (scale 1-3) or Pain (scale 4-6) (Pain). Take with food or milk. 2018-08 Yes [id number] 1{tbl} Take 1 [facility] vitamin 1-03 tablet by [facility] of w/FA tablet 00:00: mouth [place] 00 daily. Medical [facility] docusate 2018-08 Yes [id number] 240mg Take 1 [facility] calcium 240 1-03 capsule by [facility] of mg capsule 00:00: mouth once [place] 00 daily as Medical needed for Branch Constipati on. ferrous 2018-08 Yes [id number] 325mg Take 1 [facility] alex sulfate 325 1-03 tablet by [facility] of mg (65 mg 00:00: mouth 2 [place] iron) 00 (two) Medical tablet times Branch daily. ibuprofen 2018-08 Yes [id number] 600mg Take 1 [facility] 600 mg 1-03 tablet by [facility] of tablet 00:00: mouth [place] 00 every 6 Medical (six) Branch hours as needed for Pain (scale 1-3) or Pain (scale 4-6) (Pain). Take with food or milk. 2018-08 Yes [id number] 1{tbl} Take 1 [facility] vitamin 1-03 tablet by [facility] of w/FA tablet 00:00: mouth [place] 00 daily. Medical Branch docusate 2018-08 Yes [id number] 240mg Take 1 [facility] calcium 240 1-03 capsule by [facility] of mg capsule 00:00: mouth once [place] 00 daily as Medical needed for Branch Constipati on. ferrous 2018-08 Yes [id number] 325mg Take 1 [facility] alex sulfate 325 1-03 tablet by [facility] of mg (65 mg 00:00: mouth 2 [place] iron) 00 (two) Medical tablet times Branch daily. ibuprofen 2018-08 Yes [id number] 600mg Take 1 [facility] 600 mg 1-03 tablet by [facility] of tablet 00:00: mouth [place] 00 every 6 Medical (six) Branch hours as needed for Pain (scale 1-3) or Pain (scale 4-6) (Pain). Take with food or milk. 2018-08 Yes [id number] 1{tbl} Take 1 [facility] vitamin 1-03 tablet by [facility] of w/FA tablet 00:00: mouth [place] 00 daily. Medical Branch docusate 2018-08 Yes [id number] 240mg Take 1 [facility] calcium 240 1-03 capsule by [facility] of mg capsule 00:00: mouth once [place] 00 daily as Medical needed for Branch Constipati on. ferrous 2018-08 Yes [id number] 325mg Take 1 [facility] alex sulfate 325 1-03 tablet by [facility] of mg (65 mg 00:00: mouth 2 [place] iron) 00 (two) Medical tablet times Branch daily. ibuprofen 2018-08 Yes [id number] 600mg Take 1 [facility] 600 mg 1-03 tablet by [facility] of tablet 00:00: mouth [place] 00 every 6 Medical (six) Branch hours as needed for Pain (scale 1-3) or Pain (scale 4-6) (Pain). Take with food or milk. 2018-08 Yes [id number] 1{tbl} Take 1 [facility] vitamin 1-03 tablet by [facility] of w/FA tablet 00:00: mouth [place] 00 daily. Medical Branch docusate 2018-08 Yes [id number] 240mg Take 1 [facility] n[facility] calcium 240 1-03 capsule by it y of mg capsule 00:00: mouth once [place] 00 daily as Medical needed for Branch Constipati on. ferrous 2018-08 Yes [id number] 325mg Take 1 [facility] alex sulfate 325 1-03 tablet by [facility] of mg (65 mg 00:00: mouth 2 [place] iron) 00 (two) Medical tablet times Branch daily. ibuprofen 2018-08 Yes [id number] 600mg Take 1 [facility] 600 mg 1-03 tablet by [facility] of tablet 00:00: mouth [place] 00 every 6 Medical (six) Branch hours as needed for Pain (scale 1-3) or Pain (scale 4-6) (Pain). Take with food or milk. 2018-08 Yes [id number] 1{tbl} Take 1 [facility] vitamin 1-03 tablet by [facility] of w/FA tablet 00:00: mouth [place] 00 daily. Medical Branch docusate 2018-08 Yes [id number] 240mg Take 1 [facility] n[facility] calcium 240 1-03 capsule by [facility] of mg capsule 00:00: mouth once [place] 00 daily as Medical needed for Branch Constipati on. ferrous 2018-08 Yes [id number] 325mg Take 1 [facility] alex sulfate 325 1-03 tablet by [facility] of mg (65 mg 00:00: mouth 2 [place] iron) 00 (two) Medical tablet times Branch daily. ibuprofen 2018-08 Yes [id number] 600mg Take 1 [facility] 600 mg 1-03 tablet by [facility] of tablet 00:00: mouth [place] 00 every 6 Medical (six) Branch hours as needed for Pain (scale 1-3) or Pain (scale 4-6) (Pain). Take with food or milk. 2018-08 Yes [id number] 1{tbl} Take 1 [facility] vitamin 1-03 tablet by [facility] of w/FA tablet 00:00: mouth [place] 00 daily. Medical Branch docusate 2018-08 Yes [id number] 240mg Take 1 [facility] nivers calcium 240 1-03 capsule by [facility] y of mg capsule 00:00: mouth once [place] 00 daily as Medical needed for Branch Constipati on. ferrous 2018-08 Yes [id number] 325mg Take 1 [facility] alex sulfate 325 1-03 tablet by [facility] of mg (65 mg 00:00: mouth 2 [place] iron) 00 (two) Medical tablet times Branch daily. ibuprofen 2018-08 Yes [id number] 600mg Take 1 [facility] 600 mg 1-03 tablet by [facility] of tablet 00:00: mouth [place] 00 every 6 Medical (six) Branch hours as needed for Pain (scale 1-3) or Pain (scale 4-6) (Pain). Take with food or milk. 2018-08 Yes [id number] 1{tbl} Take 1 [facility] vitamin 1-03 tablet by [facility] of w/FA tablet 00:00: mouth [place] 00 daily. Medical Branch docusate 2018-08 Yes [id number] 240mg Take 1 [facility] n[facility] calcium 240 1-03 capsule by [facility] y of mg capsule 00:00: mouth once [place] 00 daily as Medical needed for Branch Constipati on. ferrous 2018-08 Yes [id number] 325mg Take 1 [facility] alex sulfate 325 1-03 tablet by [facility] of mg (65 mg 00:00: mouth 2 [place] iron) 00 (two) Medical tablet times Branch daily. ibuprofen 2018-08 Yes [id number] 600mg Take 1 [facility] 600 mg 1-03 tablet by [facility] of tablet 00:00: mouth [place] 00 every 6 Medical (six) Branch hours as needed for Pain (scale 1-3) or Pain (scale 4-6) (Pain). Take with food or milk. 2018-08 Yes [id number] 1{tbl} Take 1 [facility] vitamin 1-03 tablet by [facility] of w/FA tablet 00:00: mouth [place] 00 daily. Medical Branch docusate 2018-08 Yes [id number] 240mg Take 1 [facility] n[facility] calcium 240 1-03 capsule by [facility] y of mg capsule 00:00: mouth once [place] 00 daily as Medical needed for Branch Constipati on. ferrous 2018-08 Yes [id number] 325mg Take 1 [facility] alex sulfate 325 1-03 tablet by [facility] of mg (65 mg 00:00: mouth 2 [place] iron) 00 (two) Medical tablet times Branch daily. ibuprofen 2018-08 Yes [id number] 600mg Take 1 [facility] 600 mg 1-03 tablet by [facility] of tablet 00:00: mouth [place] 00 every 6 Medical (six) Branch hours as needed for Pain (scale 1-3) or Pain (scale 4-6) (Pain). Take with food or milk. 2018-08 Yes [id number] 1{tbl} Take 1 [facility] vitamin 1-03 tablet by [facility] of w/FA tablet 00:00: mouth [place] 00 daily. Medical Branch docusate 2018-08 Yes [id number] 240mg Take 1 [facility] n[facility] calcium 240 1-03 capsule by [facility] y of mg capsule 00:00: mouth once [place] 00 daily as Medical needed for Branch Constipati on. ferrous 2018-08 Yes [id number] 325mg Take 1 [facility] alex sulfate 325 1-03 tablet by [facility] of mg (65 mg 00:00: mouth 2 [place] iron) 00 (two) Medical tablet times Branch daily. ibuprofen 2018-08 Yes [id number] 600mg Take 1 [facility] 600 mg 1-03 tablet by [facility] of tablet 00:00: mouth [place] 00 every 6 Medical (six) Branch hours as needed for Pain (scale 1-3) or Pain (scale 4-6) (Pain). Take with food or milk. 2018-08 Yes [id number] 1{tbl} Take 1 [facility] vitamin 1-03 tablet by [facility] of w/FA tablet 00:00: mouth [place] 00 daily. Medical Branch docusate 2018-08 Yes [id number] 240mg Take 1 [facility] n[facility] calcium 240 1-03 capsule by [facility] of mg capsule 00:00: mouth once [place] 00 daily as Medical needed for Branch Constipati on. ferrous 2018- Yes [id number] 325mg Take 1 [facility] alex sulfate 325 1-03 tablet by [facility] of mg (65 mg 00:00: mouth 2 [place] iron) 00 (two) Medical tablet times Branch daily. ibuprofen 2018-08 Yes [id number] 600mg Take 1 [facility] 600 mg 1-03 tablet by [facility] of tablet 00:00: mouth [place] 00 every 6 Medical (six) Branch hours as needed for Pain (scale 1-3) or Pain (scale 4-6) (Pain). Take with food or milk. 2018-08 Yes [id number] 1{tbl} Take 1 [facility] vitamin 1-03 tablet by [facility] of w/FA tablet 00:00: mouth [place] 00 daily. Medical Branch docusate 2018-08 Yes [id number] 240mg Take 1 [facility] n[facility] calcium 240 1-03 capsule by it y of mg capsule 00:00: mouth once [place] 00 daily as Medical needed for Branch Constipati on. ferrous 2018-08 Yes [id number] 325mg Take 1 [facility] alex sulfate 325 1-03 tablet by [facility] of mg (65 mg 00:00: mouth 2 [place] iron) 00 (two) Medical tablet times Branch daily. ibuprofen 2018-08 Yes [id number] 600mg Take 1 [facility] 600 mg 1-03 tablet by [facility] of tablet 00:00: mouth [place] 00 every 6 Medical (six) Branch hours as needed for Pain (scale 1-3) or Pain (scale 4-6) (Pain). Take with food or milk. 2018-08 Yes [id number] 1{tbl} Take 1 [facility] vitamin 1-03 tablet by [facility] of w/FA tablet 00:00: mouth [place] 00 daily. Medical Branch docusate 2018-08 Yes [id number] 240mg Take 1 [facility] n[facility] calcium 240 1-03 capsule by [facility] y of mg capsule 00:00: mouth once [place] 00 daily as Medical needed for Branch Constipati on. ferrous 2018-08 Yes [id number] 325mg Take 1 [facility] alex sulfate 325 1-03 tablet by [facility] of mg (65 mg 00:00: mouth 2 [place] iron) 00 (two) Medical tablet times Branch daily. ibuprofen 2018-08 Yes [id number] 600mg Take 1 [facility] 600 mg 1-03 tablet by [facility] of tablet 00:00: mouth [place] 00 every 6 Medical (six) Branch hours as needed for Pain (scale 1-3) or Pain (scale 4-6) (Pain). Take with food or milk. 2018-08 Yes [id number] 1{tbl} Take 1 [facility] vitamin 1-03 tablet by [facility] of w/FA tablet 00:00: mouth [place] 00 daily. Medical Branch docusate 2018-08 Yes [id number] 240mg Take 1 [facility] n[facility] calcium 240 1-03 capsule by [facility] y of mg capsule 00:00: mouth once [place] 00 daily as Medical needed for Branch Constipati on. ferrous 2018-08 Yes [id number] 325mg Take 1 [facility] alex sulfate 325 1-03 tablet by [facility] of mg (65 mg 00:00: mouth 2 [place] iron) 00 (two) Medical tablet times Branch daily. ibuprofen 2018-08 Yes [id number] 600mg Take 1 [facility] 600 mg 1-03 tablet by [facility] of tablet 00:00: mouth [place] 00 every 6 Medical (six) Branch hours as needed for Pain (scale 1-3) or Pain (scale 4-6) (Pain). Take with food or milk. 2018-08 Yes [id number] 1{tbl} Take 1 [facility] vitamin 1-03 tablet by [facility] of w/FA tablet 00:00: mouth [place] 00 daily. Medical Branch docusate 2018-08 Yes [id number] 240mg Take 1 [facility] n[facility] calcium 240 1-03 capsule by [facility] y of mg capsule 00:00: mouth once [place] 00 daily as Medical needed for Branch Constipati on. ferrous 2018-08 Yes [id number] 325mg Take 1 [facility] alex sulfate 325 1-03 tablet by [facility] of mg (65 mg 00:00: mouth 2 [place] iron) 00 (two) Medical tablet times Branch daily. ibuprofen 2018-08 Yes [id number] 600mg Take 1 [facility] 600 mg 1-03 tablet by [facility] of tablet 00:00: mouth [place] 00 every 6 Medical (six) Branch hours as needed for Pain (scale 1-3) or Pain (scale 4-6) (Pain). Take with food or milk. 2018-08 Yes [id number] 1{tbl} Take 1 [facility] vitamin 1-03 tablet by [facility] of w/FA tablet 00:00: mouth [place] 00 daily. Medical Branch docusate 2018-08 Yes [id number] 240mg Take 1 [facility] n[facility] calcium 240 1-03 capsule by [facility] y of mg capsule 00:00: mouth once [place] 00 daily as Medical needed for Branch Constipati on. ferrous 2018-08 Yes [id number] 325mg Take 1 [facility] alex sulfate 325 1-03 tablet by [facility] of mg (65 mg 00:00: mouth 2 [place] iron) 00 (two) Medical tablet times Branch daily. ibuprofen 2018-08 Yes [id number] 600mg Take 1 [facility] 600 mg 1-03 tablet by [facility] of tablet 00:00: mouth [place] 00 every 6 Medical (six) Branch hours as needed for Pain (scale 1-3) or Pain (scale 4-6) (Pain). Take with food or milk. 2018-08 Yes [id number] 1{tbl} Take 1 [facility] vitamin 1-03 tablet by [facility] of w/FA tablet 00:00: mouth [place] 00 daily. Medical [facility] docusate 2018-08 Yes [id number] 240mg Take 1 [facility] calcium 240 1-03 capsule by [facility] y of mg capsule 00:00: mouth once [place] 00 daily as Medical needed for Branch Constipati on. ferrous 2018-08 Yes [id number] 325mg Take 1 [facility] alex sulfate 325 1-03 tablet by [facility] of mg (65 mg 00:00: mouth 2 [place] iron) 00 (two) Medical tablet times Branch daily. ibuprofen 2018-08 Yes [id number] 600mg Take 1 [facility] 600 mg 1-03 tablet by [facility] of tablet 00:00: mouth [place] 00 every 6 Medical (six) Branch hours as needed for Pain (scale 1-3) or Pain (scale 4-6) (Pain). Take with food or milk. 2018-08 Yes [id number] 1{tbl} Take 1 [facility] vitamin 1-03 tablet by [facility] w/FA tablet 00:00: mouth [place] 00 [facility] [id number] 240mg Take 1 [facility] nivers calcium 240 1-03 capsule by it y of mg capsule 00:00: mouth once [place] 00 daily as Medical needed for Branch Constipati on. ferrous 2018-08 Yes [id number] 325mg Take 1 [facility] alex sulfate 325 1-03 tablet by [facility] of mg (65 mg 00:00: mouth 2 [place] iron) 00 (two) Medical tablet times Branch daily. ibuprofen 2018-08 Yes [id number] 600mg Take 1 [facility] 600 mg 1-03 tablet by [facility] of tablet 00:00: mouth [place] 00 every 6 Medical (six) Branch hours as needed for Pain (scale 1-3) or Pain (scale 4-6) (Pain). Take with food or milk. 2018-08 Yes [id number] 1{tbl} Take 1 [facility] vitamin 1-03 tablet by [facility] of w/FA tablet 00:00: mouth [place] 00 daily. Medical [facility] docusate 2018-08 Yes [id number] 240mg Take 1 [facility] calcium 240 1-03 capsule by [facility] y of mg capsule 00:00: mouth once [place] 00 daily as Medical needed for Branch Constipati on. ferrous 2018-08 Yes [id number] 325mg Take 1 [facility] alex sulfate 325 1-03 tablet by [facility] of mg (65 mg 00:00: mouth 2 [place] iron) 00 (two) Medical tablet times Branch daily. ibuprofen 2018-08 Yes [id number] 600mg Take 1 [facility] 600 mg 1-03 tablet by [facility] of tablet 00:00: mouth [place] 00 every 6 Medical (six) Branch hours as needed for Pain (scale 1-3) or Pain (scale 4-6) (Pain). Take with food or milk. ferrous 2018- Yes [id number] 325mg Take 1 [facility] alex sulfate 325 1-03 tablet by [facility] of mg (65 mg 00:00: mouth 2 [place] iron) 00 (two) Medical tablet times Branch daily. ferrous 2018-08 Yes [id number] 325mg Take 1 [facility] alex sulfate 325 1-03 tablet by [facility] of mg (65 mg 00:00: mouth 2 [place] iron) 00 (two) Medical tablet times Branch daily. ferrous 2018-08 Yes [id number] 325mg Take 1 [facility] alex sulfate 325 1-03 tablet by [facility] of mg (65 mg 00:00: mouth 2 [place] iron) 00 (two) Medical tablet times Branch daily. ferrous 2018-08 Yes [id number] 325mg Take 1 [facility] alex sulfate 325 1-03 tablet by [facility] of mg (65 mg 00:00: mouth 2 [place] iron) 00 (two) Medical tablet times Branch daily. 2018-08 Yes [id number] 1{tbl} Take 1 [facility] vitamin 1-03 tablet by [facility] of w/FA tablet 00:00: mouth [place] 00 daily. Medical Branch docusate 2018-08 Yes [id number] 240mg Take 1 [facility] calcium 240 1-03 capsule by [facility] of mg capsule 00:00: mouth once [place] 00 daily as Medical needed for Branch Constipati on. ferrous 2018- Yes [id number] 325mg Take 1 [facility] alex sulfate 325 1-03 tablet by [facility] of mg (65 mg 00:00: mouth 2 [place] iron) 00 (two) Medical tablet times Branch daily. ibuprofen 2018-08 Yes [id number] 600mg Take 1 [facility] 600 mg 1-03 tablet by [facility] of tablet 00:00: mouth [place] 00 every 6 Medical (six) Branch hours as needed for Pain (scale 1-3) or Pain (scale 4-6) (Pain). Take with food or milk. 2018-08 Yes [id number] 1{tbl} Take 1 [facility] vitamin 1-03 tablet by [facility] of w/FA tablet 00:00: mouth [place] 00 daily. Medical [facility] docusate 2018-08 Yes [id number] 240mg Take 1 [facility] calcium 240 1-03 capsule by [facility] of mg capsule 00:00: mouth once [place] 00 daily as Medical needed for Branch Constipati on. ferrous 2018-08 Yes [id number] 325mg Take 1 [facility] alex sulfate 325 1-03 tablet by [facility] of mg (65 mg 00:00: mouth 2 [place] iron) 00 (two) Medical tablet times Branch daily. ibuprofen 2018-08 Yes [id number] 600mg Take 1 [facility] 600 mg 1-03 tablet by [facility] of tablet 00:00: mouth [place] 00 every 6 Medical (six) Branch hours as needed for Pain (scale 1-3) or Pain (scale 4-6) (Pain). Take with food or milk. 2018-08 Yes [id number] 1{tbl} Take 1 [facility] vitamin 1-03 tablet by [facility] of w/FA tablet 00:00: mouth [place] 00 daily. Medical [facility] docusate 2018-08 Yes [id number] 240mg Take 1 [facility] calcium 240 1-03 capsule by [facility] of mg capsule 00:00: mouth once [place] 00 daily as Medical needed for Branch Constipati on. ferrous 2018-08 Yes [id number] 325mg Take 1 [facility] alex sulfate 325 1-03 tablet by [facility] of mg (65 mg 00:00: mouth 2 [place] iron) 00 (two) Medical tablet times Branch daily. ibuprofen 2018-08 Yes [id number] 600mg Take 1 [facility] 600 mg 1-03 tablet by [facility] of tablet 00:00: mouth [place] 00 every 6 Medical (six) Branch hours as needed for Pain (scale 1-3) or Pain (scale 4-6) (Pain). Take with food or milk. 2018-08 Yes [id number] 1{tbl} Take 1 [facility] vitamin 1-03 tablet by [facility] of w/FA tablet 00:00: mouth [place] 00 daily. Medical [facility] docusate 2018-08 Yes [id number] 240mg Take 1 [facility] calcium 240 1-03 capsule by [facility] y of mg capsule 00:00: mouth once [place] 00 daily as Medical needed for Branch Constipati on. ferrous 2018-08 Yes [id number] 325mg Take 1 Un alex sulfate 325 1-03 tablet by [facility] of mg (65 mg 00:00: mouth 2 [place] iron) 00 (two) Medical tablet times Branch daily. ibuprofen 2018-08 Yes [id number] 600mg Take 1 [facility] 600 mg 1-03 tablet by [facility] of tablet 00:00: mouth [place] 00 every 6 Medical (six) Branch hours as needed for Pain (scale 1-3) or Pain (scale 4-6) (Pain). Take with food or milk. 2018-08 Yes [id number] 1{tbl} Take 1 [facility] vitamin 1-03 tablet by [facility] of w/FA tablet 00:00: mouth [place] 00 daily. Medical [facility] docusate 2018-08 Yes [id number] 240mg Take 1 [facility] calcium 240 1-03 capsule by it y of mg capsule 00:00: mouth once [place] 00 daily as Medical needed for Branch Constipati on. ferrous 2018-08 Yes [id number] 325mg Take 1 Un alex sulfate 325 1-03 tablet by [facility] of mg (65 mg 00:00: mouth 2 [place] iron) 00 (two) Medical tablet times Branch daily. ibuprofen 2018-08 Yes [id number] 600mg Take 1 [facility] 600 mg 1-03 tablet by [facility] of tablet 00:00: mouth [place] 00 every 6 Medical (six) Branch hours as needed for Pain (scale 1-3) or Pain (scale 4-6) (Pain). Take with food or milk. 2018-08 Yes [id number] 1{tbl} Take 1 [facility] vitamin 1-03 tablet by ity of w/FA tablet 00:00: mouth [place] 00 daily. Medical Branch docusate 2018-08 Yes [id number] 240mg Take 1 U nivers calcium 240 1-03 capsule by it y of mg capsule 00:00: mouth [place] 00 daily as Medical needed for Branch Constipati on. ferrous 2018-08 Yes [id number] 325mg Take 1 Un alex sulfate 325 1-03 tablet by ity of mg (65 mg 00:00: mouth 2 [place] iron) 00 (two) Medical tablet times Branch daily. ibuprofen 2018-08 Yes [id number] 600mg Take 1 [facility] 600 mg 1-03 tablet by ity of tablet 00:00: mouth [place] 00 every 6 Medical (six) Branch hours as needed for Pain (scale 1-3) or Pain (scale 4-6) (Pain). Take with food or milk. 2018-08 Yes [id number] 1{tbl} Take 1 [facility] vitamin 1-03 tablet by ity of w/FA tablet 00:00: mouth [place] 00 daily. Medical Branch docusate 2018-08 Yes [id number] 240mg Take 1 U nivers calcium 240 1-03 capsule by it y of mg capsule 00:00: mouth once [place] 00 daily as Medical needed for Branch Constipati on. ferrous 2018-08 Yes [id number] 325mg Take 1 Un alex sulfate 325 1-03 tablet by ity of mg (65 mg 00:00: mouth 2 [place] iron) 00 (two) Medical tablet times Branch daily. ibuprofen 2018-08 Yes [id number] 600mg Take 1 [facility] 600 mg 1-03 tablet by ity of tablet 00:00: mouth [place] 00 every 6 Medical (six) Branch hours as needed for Pain (scale 1-3) or Pain (scale 4-6) (Pain). Take with food or milk. 2018-08 Yes [id number] 1{tbl} Take 1 [facility] vitamin 1-03 tablet by ity of w/FA tablet 00:00: mouth [place] 00 daily. Medical Branch docusate 2018-08 Yes [id number] 240mg Take 1 U nivers calcium 240 1-03 capsule by it y of mg capsule 00:00: mouth once [place] 00 daily as Medical needed for Branch Constipati on. ferrous 2018-08 Yes [id number] 325mg Take 1 Un alex sulfate 325 1-03 tablet by ity of mg (65 mg 00:00: mouth 2 [place] iron) 00 (two) Medical tablet times Branch daily. ibuprofen 2018-08 Yes [id number] 600mg Take 1 [facility] 600 mg 1-03 tablet by ity of tablet 00:00: mouth [place] 00 every 6 Medical (six) Branch hours as needed for Pain (scale 1-3) or Pain (scale 4-6) (Pain). Take with food or milk. 2018-08 Yes [id number] 1{tbl} Take 1 [facility] vitamin 1-03 tablet by ity of w/FA tablet 00:00: mouth [place] 00 daily. Medical Branch docusate 2018-08 Yes [id number] 240mg Take 1 U nivers calcium 240 1-03 capsule by it y of mg capsule 00:00: mouth once [place] 00 daily as Medical needed for Branch Constipati on. ferrous 2018-08 Yes [id number] 325mg Take 1 Un alex sulfate 325 1-03 tablet by ity of mg (65 mg 00:00: mouth 2 [place] iron) 00 (two) Medical tablet times Branch daily. ibuprofen 2018-08 Yes [id number] 600mg Take 1 [facility] 600 mg 1-03 tablet by ity of tablet 00:00: mouth [place] 00 every 6 Medical (six) Branch hours as needed for Pain (scale 1-3) or Pain (scale 4-6) (Pain). Take with food or milk. 2018-08 Yes [id number] 1{tbl} Take 1 [facility] vitamin 1-03 tablet by ity of w/FA tablet 00:00: mouth [place] [facility] Yes [id number] 240mg Take 1 U nivers calcium 240 1-03 capsule by it y of mg capsule 00:00: mouth once [place] 00 daily as Medical needed for Branch Constipati on. 2018-08- No [id number] 1{tbl} Take 1 [facility] vitamin 1-03 08-18 tablet by ity of w/FA tablet 00:00: [place] :[facility]. [facility]- No [id number] 240mg Take 1 [facility] calcium 240 1-03 08-18 capsule by i ty of mg capsule 00:00: 00:00 mouth once [place] 00 :00 daily as Medical needed for Branch Constipati on. ibuprofen 2018-08- No [id number] 600mg Take 1 [facility] 600 mg 1-03 08-18 tablet by ity of tablet 00:00: 00:00 mouth [place] 00 :00 every 6 Medical (six) Branch hours as needed for Pain (scale 1-3) or Pain (scale 4-6) (Pain). Take with food or milk. fluconazole 2019- No [id number] 150mg Take 1 [facility] (DIFLUCAN) 9-10 09-11 tablet by ity of 150 mg 00:00: 04:59 mouth [place] tablet 00 :00 now for 1 Medical dose. Branch fluconazole 2019- No [id number] 150mg Take 1 [facility] (DIFLUCAN) 04-17 tablet by ity of 150 mg 00:00: 04:59 mouth [place] tablet 00 :00 now for 1 Medical dose. Branch fluconazole 2019- No [id number] 150mg Take 1 [facility] (DIFLUCAN) 04-17 tablet by ity of 150 mg 00:00: 04:59 mouth [place] tablet 00 :00 now for 1 Medical dose. Branch rho(D) 2019- No [id number] 300ug Unive rs immune 03-29 ity of globulin 19:30: 19:44 [place] (RHOGAM) 00 :00 Medical syringe 300 Branch mcg rho(D) 2019- No [id number] 300ug 300 mcg, U nivers immune 03-29 Intramuscu ity of globulin 19:30: 19:44 [place] (RHOGAM[place] 00 :00 1 dose, Medical syringe 300 [place] Branch mcg 03/29/19 at 1430, Routine fluconazole 2019- No [id number] 150mg Take 1 [facility] (DIFLUCAN) 03-20 9107 [...] est(PF)(pre 8-06 ity of g presv) 15:51: [place] (HANS) 32 Medical 250 mg/mL Branch (1 mL) injection 250 mg HYDROXYprog 2019-0 Yes 250mg Unive rs est(PF)(pre 8-06 ity of g presv) 15:51: [place] (HANS) 32 Medical 250 mg/mL Branch (1 mL) injection 250 mg HYDROXYprog 2019-0 Yes 250mg Unive rs est(PF)(pre 8-06 ity of g presv) 15:51: [place] (HANS) 32 Medical 250 mg/mL Branch (1 mL) injection 250 mg HYDROXYprog 2019-0 Yes 250mg Unive rs est(PF)(pre 8-06 ity of g presv) 15:51: [place] (HANS) 32 Medical 250 mg/mL Branch (1 mL) injection 250 mg HYDROXYprog 2019-0 Yes 250mg Unive rs est(PF)(pre 8-06 ity of g presv) 15:51: [place] (HANS) 32 Medical 250 mg/mL Branch (1 mL) injection 250 mg HYDROXYprog 2019-0 Yes 250mg Unive rs est(PF)(pre 8-06 ity of g presv) 15:51: [place] (HANS) 32 Medical 250 mg/mL Branch (1 mL) injection 250 mg HYDROXYprog 2019-0 Yes 250mg Unive rs est(PF)(pre 8-06 ity of g presv) 15:51: [place] (HANS) 32 Medical 250 mg/mL Branch (1 mL) injection 250 mg HYDROXYprog 2019-0 Yes 250mg Unive rs est(PF)(pre 8-06 ity of g presv) 15:51: [place] (HANS) 32 Medical 250 mg/mL Branch (1 mL) injection 250 mg HYDROXYprog 2019-0 Yes 250mg Unive rs est(PF)(pre 8-06 ity of g presv) 15:51: [place] (HANS) 32 Medical 250 mg/mL Branch (1 mL) injection 250 mg HYDROXYprog 2019-0 Yes 250mg 250 mg, Un alex est(PF)(pre 8-06 Intramuscu it y of g presv) 15:51: Roxanne perez ([facility]) 32 QWEEKLY, Medical 250 mg/mL First dose Bran ch (1 mL) on Tue injection 03/13/19 at 250 mg 1100, Until Discontinu ed, Routine HYDROXYprog 2019-0 Yes 250mg Unive rs est(PF)(pre 8- ity of g presv) 15:51: [place] ([facility]) 32 Medical 250 mg/mL Branch (1 mL) injection 250 mg HYDROXYprog 2019-0 Yes 250mg 250 mg, Un alex est(PF)(pre 8-06 Intramuscu it y of g presv) 15:51: ana [place] ([facility]) 32 QWEEKLY, Medical 250 mg/mL First dose Bran ch (1 mL) on Tue injection 03/13/19 at 250 mg 1100, Until Discontinu ed, Routine HYDROXYprog 2019-0 Yes 250mg Unive rs est(PF)(pre 8- ity of g presv) 15:51: [facility] 32 Medical 250 mg/mL Branch (1 mL) injection 250 mg HYDROXYprog 2019-0 Yes 250mg 250 mg, Un alex est(PF)(pre 8- Intramuscu it y of g presv) 15:51: ana [place] ([facility]) 32 QWEEKLY, Medical 250 mg/mL First dose Bran ch (1 mL) on Tue injection 03/13/19 at 250 mg 1100, Until Discontinu ed, Routine HYDROXYprog 2019-0 Yes 250mg Unive rs est(PF)(pre 8- ity of g presv) 15:51: [facility] 32 Medical 250 mg/mL Branch (1 mL) injection 250 mg HYDROXYprog 2019-0 Yes 250mg 250 mg, Un alex est(PF)(pre 8-06 Intramuscu it y of g presv) 15:51: ana [place] ([facility]) 32 QWEEKLY, Medical 250 mg/mL First dose Bran ch (1 mL) on Tue injection 03/13/19 at 250 mg 1100, Until Discontinu ed, Routine HYDROXYprog 2019-0 Yes 250mg Unive rs est(PF)(pre 8-06 ity of g presv) 15:51: [place] ([facility]) 32 Medical 250 mg/mL Branch (1 mL) [...] est(PF)(pre 8 ity of g presv) 15:51: [place] (HANS) 32 Medical 250 mg/mL Branch (1 [...] esterone(PF 6-11 ity of ) (HANS 14:51: [place] AUTO-INJECT 12 Medical OR) 275 Branch mg/1.1 mL injection 275 mg hydroxyprog 2019-0 Yes 275mg Unive rs esterone(PF 6-11 ity of ) (HANS 14:51: [place] AUTO-INJECT 12 Medical OR) 275 Branch mg/1.1 mL injection 275 mg hydroxyprog 2019-0 Yes 275mg Unive rs esterone(PF 6-11 ity of ) (HANS 14:51: [place] AUTO-INJECT 12 Medical OR) 275 Branch mg/1.1 mL injection 275 mg hydroxyprog 2019-0 Yes 275mg Unive rs esterone(PF 6-11 ity of ) (HANS 14:51: [place] AUTO-INJECT 12 Medical OR) 275 Branch mg/1.1 mL injection 275 mg hydroxyprog 2019-0 Yes 275mg 275 mg, Un alex esterone(PF 6-11 Subcutaneo it y of ) (HANS 14:51: [place], [place] AUTO-INJECT 12 QWEEKLY, Medi carlos OR) [...] injection 275 mg PNV 67-iron 2019-0 Yes [id number] 1{each} Take 1 [facility] ps-folate 3-15 Each by ity of no.1-dha 00:00: mouth [place] (VITAFOL 00 daily. Medical ULTRA) 29 Branch mg iron- 1 mg-200 mg Cap PNV 67-iron 2019-0 Yes [id number] 1{each} Take 1 [facility] ps-folate 3-15 Each by ity of no.1-dha 00:00: mouth [place] (VITAFOL 00 daily. Medical ULTRA) 29 Branch mg iron- 1 mg-200 mg Cap PNV 67-iron 2019-0 Yes [id number] 1{each} Take 1 [facility] ps-folate 3-15 Each by ity of no.1-dha 00:00: mouth [place] (VITAFOL 00 daily. Medical ULTRA) 29 Branch mg iron- 1 mg-200 mg Cap PNV 67-iron 2019-0 Yes [id number] 1{each} Take 1 [facility] ps-folate 3-15 Each by ity of no.1-dha 00:00: mouth [place] (VITAFOL 00 daily. Medical ULTRA) 29 Branch mg iron- 1 mg-200 mg Cap PNV 67-iron 2019-0 Yes [id number] 1{each} Take 1 [facility] ps-folate 3-15 Each by ity of no.1-dha 00:00: mouth [place] (VITAFOL 00 daily. Medical ULTRA) 29 Branch mg iron- 1 mg-200 mg Cap PNV 67-iron 2019-0 Yes [id number] 1{each} Take 1 [facility] ps-folate 3-15 Each by ity of no.1-dha 00:00: mouth [place] (VITAFOL 00 daily. Medical ULTRA) 29 Branch mg iron- 1 mg-200 mg Cap PNV 67-iron 2019-0 Yes [id number] 1{each} Take 1 [facility] ps-folate 3-15 Each by ity of no.1-dha 00:00: mouth [place] (VITAFOL 00 daily. Medical ULTRA) 29 Branch mg iron- 1 mg-200 mg Cap PNV 67-iron 2019-0 Yes [id number] 1{each} Take 1 [facility] ps-folate 3-15 Each by ity of no.1-dha 00:00: mouth [place] (VITAFOL 00 daily. Medical ULTRA) 29 Branch mg iron- 1 mg-200 mg Cap PNV 67-iron 2019-0 Yes [id number] 1{each} Take 1 [facility] ps-folate 3-15 Each by ity of no.1-dha 00:00: mouth [place] (VITAFOL 00 daily. Medical ULTRA) 29 Branch mg iron- 1 mg-200 mg Cap PNV 67-iron 2019-0 Yes [id number] 1{each} Take 1 [facility] ps-folate 3-15 Each by ity of no.1-dha 00:00: mouth [place] (VITAFOL 00 daily. Medical ULTRA) 29 Branch mg iron- 1 mg-200 mg Cap PNV 67-iron 2019-0 Yes [id number] 1{each} Take 1 [facility] ps-folate 3-15 Each by ity of no.1-dha 00:00: mouth [place] (VITAFOL 00 daily. Medical ULTRA) 29 Branch mg iron- 1 mg-200 mg Cap PNV 67-iron 2019-0 Yes [id number] 1{each} Take 1 [facility] ps-folate 3-15 Each by ity of no.1-dha 00:00: mouth [place] (VITAFOL 00 daily. Medical ULTRA) 29 Branch mg iron- 1 mg-200 mg Cap PNV 67-iron 2019-0 Yes [id number] 1{each} Take 1 [facility] ps-folate 3-15 Each by ity of no.1-dha 00:00: mouth [place] (VITAFOL 00 daily. Medical ULTRA) 29 Branch mg iron- 1 mg-200 mg Cap PNV 67-iron 2019-0 Yes [id number] 1{each} Take 1 [facility] ps-folate 3-15 Each by ity of no.1-dha 00:00: mouth [place] (VITAFOL 00 daily. Medical ULTRA) 29 Branch mg iron- 1 mg-200 mg Cap PNV 67-iron 2019-0 Yes [id number] 1{each} Take 1 [facility] ps-folate 3-15 Each by ity of no.1-dha 00:00: mouth [place] (VITAFOL 00 daily. Medical ULTRA) 29 Branch mg iron- 1 mg-200 mg Cap PNV 67-iron 2019-0 Yes [id number] 1{each} Take 1 [facility] ps-folate 3-15 Each by ity of no.1-dha 00:00: mouth [place] (VITAFOL 00 daily. Medical ULTRA) 29 Branch mg iron- 1 mg-200 mg Cap PNV 67-iron 2019-0 Yes [id number] 1{each} Take 1 [facility] ps-folate 3-15 Each by ity of no.1-dha 00:00: mouth [place] (VITAFOL 00 daily. Medical ULTRA) 29 Branch mg iron- 1 mg-200 mg Cap PNV 67-iron 2019-0 Yes [id number] 1{each} Take 1 [facility] ps-folate 3-15 Each by ity of no.1-dha 00:00: mouth [place] (VITAFOL 00 daily. Medical ULTRA) 29 Branch mg iron- 1 mg-200 mg Cap PNV 67-iron 2019-0 Yes [id number] 1{each} Take 1 [facility] ps-folate 3-15 Each by ity of no.1-dha 00:00: mouth [place] (VITAFOL 00 daily. Medical ULTRA) 29 Branch mg iron- 1 mg-200 mg Cap PNV 67-iron 2019-0 Yes [id number] 1{each} Take 1 [facility] ps-folate 3-15 Each by ity of no.1-dha 00:00: mouth [place] (VITAFOL 00 daily. Medical ULTRA) 29 Branch mg iron- 1 mg-200 mg Cap PNV 67-iron 2019-0 Yes [id number] 1{each} Take 1 [facility] ps-folate 3-15 Each by ity of no.1-dha 00:00: mouth [place] (VITAFOL 00 daily. Medical ULTRA) 29 Branch mg iron- 1 mg-200 mg Cap hydroxyprog 2019- No [id number] 250mg 1 mL by Univers est,PF,,pre 10-20 Intramuscu i ty of g presv, 00:00: 04:59 [place] 250 mg/mL 00 :00 weekly for Medi carlos (1 mL) 22 doses. Branch injection hydroxyprog 2019- No [id number] 250mg 1 mL by Univers est,PF,,pre 10-20 Intramuscu i ty of g presv, 00:00: 04:59 [place] route [place] 250 mg/mL 00 :00 weekly for Medi carlos (1 mL) 22 doses. Branch injection hydroxyprog 2018- 2019- No [id number] 250mg 1 mL by Univers est,PF,,pre 10-20 Intramuscu i ty of g presv, 00:00: 04:59 [place] route [place] 250 mg/mL 00 :00 weekly for Medi carlos (1 mL) 22 doses. Branch injection hydroxyprog 2019- No [id number] 250mg 1 mL by Univers est,PF,,pre 10-20 Intramuscu i ty of g presv, 00:00: 04:59 [place] route [place] 250 mg/mL 00 :00 weekly for Medi carlos (1 mL) 22 doses. Branch injection hydroxyprog 2019- No [id number] 250mg 1 mL by Univers est,PF,,pre 10-20 [...] times Branch daily. PNV 67-iron 0 Yes [id number] 1{each} Take 1 [facility] ps-folate 4-17 Each by ity of no.1-dha 00:00: mouth [place] (VITAFOL 00 daily. Medical ULTRA) 29 Branch mg iron- 1 mg-200 mg Cap PNV 67-iron Yes [id number] 1{each} Take 1 [facility] ps-folate 4-17 Each by ity of no.1-dha 00:00: mouth [place] (VITAFOL 00 daily. Medical ULTRA) 29 Branch mg iron- 1 mg-200 mg Cap PNV 67-iron Yes [id number] 1{each} Take 1 [facility] ps-folate 4-17 Each by ity of no.1-dha 00:00: mouth [place] (VITAFOL 00 daily. Medical ULTRA) 29 Branch mg iron- 1 mg-200 mg Cap PNV 67-iron 2017- Yes [id number] 1{each} Take 1 [facility] ps-folate 4-17 Each by ity of no.1-dha 00:00: mouth [place] (VITAFOL 00 daily. Medical ULTRA) 29 Branch mg iron- 1 mg-200 mg Cap PNV 67-iron 2017- Yes [id number] 1{each} Take 1 [facility] ps-folate 4-17 Each by ity of no.1-dha 00:00: mouth [place] (VITAFOL 00 daily. Medical ULTRA) 29 Branch mg iron- 1 mg-200 mg Cap PNV 67-iron 2017- Yes [id number] 1{each} Take 1 [facility] ps-folate 4-17 Each by ity of no.1-dha 00:00: mouth [place] (VITAFOL 00 daily. Medical ULTRA) 29 Branch mg iron- 1 mg-200 mg Cap PNV 67-iron 2017-0 Yes [id number] 1{each} Take 1 [facility] ps-folate 4-17 Each by ity of no.1-dha 00:00: mouth [place] (VITAFOL 00 daily. Medical ULTRA) 29 Branch mg iron- 1 mg-200 mg Cap PNV 67-iron 2018-0 Yes [id number] 1{each} Take 1 [facility] ps-folate 4-17 Each by ity of no.1-dha 00:00: mouth [place] (VITAFOL 00 daily. Medical ULTRA) 29 Branch mg iron- 1 mg-200 mg Cap PNV 67-iron 2018-0 Yes [id number] 1{each} Take 1 [facility] ps-folate 4-17 Each by ity of no.1-dha 00:00: mouth [place] (VITAFOL 00 daily. Medical ULTRA) 29 Branch mg iron- 1 mg-200 mg Cap PNV 67-iron 2018-0 Yes [id number] 1{each} Take 1 [facility] ps-folate 4-17 Each by ity of no.1-dha 00:00: mouth [place] (VITAFOL 00 daily. Medical ULTRA) 29 Branch mg iron- 1 mg-200 mg Cap PNV 67-iron 2018-0 Yes [id number] 1{each} Take 1 [facility] ps-folate 4-17 Each by ity of no.1-dha 00:00: mouth [place] (VITAFOL 00 daily. Medical ULTRA) 29 Branch mg iron- 1 mg-200 mg Cap PNV 67-iron 2018-0 Yes [id number] 1{each} Take 1 [facility] ps-folate 4-17 Each by ity of no.1-dha 00:00: mouth [place] (VITAFOL 00 daily. Medical ULTRA) 29 Branch mg iron- 1 mg-200 mg Cap PNV 67-iron 2018-0 Yes [id number] 1{each} Take 1 [facility] ps-folate 4-17 Each by ity of no.1-dha 00:00: mouth [place] (VITAFOL 00 daily. Medical ULTRA) 29 Branch mg iron- 1 mg-200 mg Cap PNV 67-iron 2018-0 Yes [id number] 1{each} Take 1 [facility] ps-folate 4-17 Each by ity of no.1-dha 00:00: mouth [place] (VITAFOL 00 daily. Medical ULTRA) 29 Branch mg iron- 1 mg-200 mg Cap PNV 67-iron 2018-0 Yes [id number] 1{each} Take 1 [facility] ps-folate 4-17 Each by ity of no.1-dha 00:00: mouth [place] (VITAFOL 00 daily. Medical ULTRA) 29 Branch mg iron- 1 mg-200 mg Cap PNV 67-iron 2018-0 Yes [id number] 1{each} Take 1 [facility] ps-folate 4-17 Each by ity of no.1-dha 00:00: mouth [place] (VITAFOL 00 daily. Medical ULTRA) 29 Branch mg iron- 1 mg-200 mg Cap PNV 67-iron 2018-0 Yes [id number] 1{each} Take 1 [facility] ps-folate 4-17 Each by ity of no.1-dha 00:00: mouth [place] (VITAFOL 00 daily. Medical ULTRA) 29 Branch mg iron- 1 mg-200 mg Cap PNV 67-iron 2018-0 Yes [id number] 1{each} Take 1 [facility] ps-folate 4-17 Each by ity of no.1-dha 00:00: mouth [place] (VITAFOL 00 daily. Medical ULTRA) 29 Branch mg iron- 1 mg-200 mg Cap PNV 67-iron 2018-0 Yes [id number] 1{each} Take 1 [facility] ps-folate 4-17 Each by ity of no.1-dha 00:00: mouth [place] (VITAFOL 00 daily. Medical ULTRA) 29 Branch mg iron- 1 mg-200 mg Cap PNV 67-iron 2018-0 Yes [id number] 1{each} Take 1 [facility] ps-folate 4-17 Each by ity of no.1-dha 00:00: mouth [place] (VITAFOL 00 daily. Medical ULTRA) 29 Branch mg iron- 1 mg-200 mg Cap PNV 67-iron 2018-0 Yes [id number] 1{each} Take 1 [facility] ps-folate 4-17 Each by ity of no.1-dha 00:00: mouth [place] (VITAFOL 00 daily. Medical ULTRA) 29 Branch mg iron- 1 mg-200 mg Cap Immunizations Ordered Filled Immunization Date Status Comments [facility] e Immunization Name Name HPV9 2021-04-09 Completed University of 00:00:00 [facility] HPV9 2021-04-09 Completed University of 00:00:00 [facility] HPV9 2021-04-09 Completed University of 00:00:00 [facility] HPV9 2021-04-09 Completed University of 00:00:00 [facility] HPV9 2021-04-09 Completed University of 00:00:00 [facility] HPV9 2021-04-09 Completed University of 00:00:00 [facility] HPV9 2021-04-09 Completed University of 00:00:00 [facility] HPV9 2021-04-09 Completed University of 00:00:00 [facility] HPV9 2021-04-09 Completed University of 00:00:00 [facility] HPV9 2021-04-09 Completed University of 00:00:00 [facility] Rho (d) Immune 2021-01-28 Completed University of Globulin 00:00:00 [facility] TDAP 2021-01-28 Completed University of 00:00:00 [facility] Rho (d) Immune 2021-01-28 Completed University of Globulin 00:00:00 [facility] TDAP 2021-01-28 Completed University of 00:00:00 [facility] Rho (d) Immune 2021-01-28 Completed University of Globulin 00:00:00 [facility] TDAP 2021-01-28 Completed University of 00:00:00 [facility] Rho (d) Immune 2021-01-28 Completed University of Globulin 00:00:00 [facility] TDAP 2021-01-28 Completed University of 00:00:00 [facility] Rho (d) Immune 2021-01-28 Completed University of Globulin 00:00:00 [facility] TDAP 2021-01-28 Completed University of 00:00:00 [facility] Rho (d) Immune 2021-01-28 Completed University of Globulin 00:00:00 [facility] TDAP 2021-01-28 Completed University of 00:00:00 [facility] Rho (d) Immune 2021-01-28 Completed University of Globulin 00:00:00 [facility] TDAP 2021-01-28 Completed University of 00:00:00 [facility] Rho (d) Immune 2021-01-28 Completed University of Globulin 00:00:00 [facility] TDAP 2021-01-28 Completed University of 00:00:00 [facility] Rho (d) Immune 2021-01-28 Completed University of Globulin 00:00:00 [facility] TDAP 2021-01-28 Completed University of 00:00:00 [facility] Rho (d) Immune 2021-01-28 Completed University of Globulin 00:00:00 [facility] TDAP 2021-01-28 Completed University of 00:00:00 [facility] Rho (d) Immune 2021-01-28 Completed [facility] 00:00:00 [facility] Rho (d) Immune 2021-01-28 Completed [facility] Globulin 00[facility]00[facility] Com[facility] of 00:00:00 [facility] Rho (d) Immune 2021-01-28 Completed University [facility] Globulin 00[facility]00:00 [facility]28 Completed [facility] of 00:00:00 [facility] Rho (d) Immune 2021-01-28 Completed University [facility] Globulin 00:00:00 [facility]28 Completed [facility] of 00:00:00 [facility] Rho (d) Immune 2021-01-28 Completed [facility] of Globulin 00:00:00 [facility]28 Completed [facility] of 00:00:00 [facility] Rho (d) Immune 2021-01-28 Completed University of Globulin 00:00:00 [facility]28 Completed [facility] of 00:00:00 [facility] Rho (d) Immune 2021-01-28 Completed University of Globulin 00:00:00 [facility] 2021[facility]28 Completed University of 00:00:00 [facility] Rho (d) Immune 2021-01-28 Completed University of Globulin 00:00:00 [facility] 2021[facility]28 Completed University of 00:00:00 [facility] Rho (d) Immune 2021-01-28 Completed University of Globulin 00:00:00 [facility] 2021-[facility]-28 Completed University of 00:00:00 [facility] Rho (d) Immune 2021-01-28 Completed University of Globulin 00:00:00 [facility] 2021-[facility]-28 Completed University of 00:00:00 [facility] Rho (d) Immune 2021-01-28 Completed University of Globulin 00:00:00 [facility] 2021-[facility]-28 Completed University of 00:00:00 [facility] Influenza Virus 2020-06-04 Completed Universit y [...] Branch HPV9 2019-09-18 Completed University of 00:00:00 [place] [facility] HPV9 2019-09-18 Completed University of 00:00:00 [place] [facility] HPV9 2019-09-18 Completed University of 00:00:00 [place] [facility] HPV9 2019-09-18 Completed University of 00:00:00 [place] [facility] HPV9 2019-09-18 Completed University of 00:00:00 [place] [facility] HPV9 2019-09-18 Completed University of 00:00:00 [place] [facility] HPV9 2019-09-18 Completed University of 00:00:00 [place] [facility] HPV9 2019-09-18 Completed University of 00:00:00 [place] [facility] HPV9 2019-09-18 Completed University of 00:00:00 [place] [facility] HPV9 2019-09-18 Completed University of 00:00:00 [place] [facility] HPV9 2019-09-18 Completed University of 00:00:00 [place] [facility] HPV9 2019-09-18 Completed University of 00:00:00 [place] [facility] HPV9 2019-09-18 Completed University of 00:00:00 [place] [facility] HPV9 2019-09-18 Completed University of 00:00:00 [place] [facility] HPV9 2019-09-18 Completed University of 00:00:00 [place] [facility] HPV9 2019-09-18 Completed University of 00:00:00 [place] [facility] HPV9 2019-09-18 Completed University of 00:00:00 [place] [facility] HPV9 2019-09-18 Completed University of 00:00:00 [place] [facility] HPV9 2019-09-18 Completed University of 00:00:00 [place] [facility] HPV9 2019-09-18 Completed University of [...] Branch HPV9 2019-09-18 Completed University of 00:00:00 [facility] HPV9 2019-09-18 Completed University of 00:00:00 [place] [facility] HPV9 2019-09-18 Completed University of 00:00:00 [facility] HPV9 2019-09-18 Completed University of 00:00:00 [facility] HPV9 2019-09-18 Completed University of 00:00:00 [facility] HPV9 2019-09-18 Completed University of 00:00:00 [facility] HPV9 2019-09-18 Completed University of 00:00:00 [facility] HPV9 2019-09-18 Completed University of 00:00:00 [facility] HPV9 2019-09-18 Completed [facility] 00:00:00 [facility] HPV9 2019-09-18 Completed [facility] 00:00:00 [facility] HPV9 2019-09-18 Completed [facility] 00:00:00 [facility] HPV9 2019-09-18 Completed [facility] 00:00:00 [facility] HPV9 2019-09-18 Completed [facility] 00:00:00 [facility] HPV9 2019-09-18 Completed [facility] 00:00:00 [facility] HPV9 2019-09-18 Completed [facility] 00:00:00 [facility] HPV9 2019-09-18 Completed [facility] 00:00:00 [facility] Rho (d) Immune 2019-06-10 Completed [facility] 00:00:00 [facility] Rho (d) Immune 2019-06-10 Completed [facility] Gl[facility] 00:00:00 [facility] Rho (d) Immune 2019-06-10 Completed [facility] 00:00:00 [facility] Rho (d) Immune 2019-06-10 Completed [facility] 00:00:00 [facility] Rho (d) Immune 2019-06-10 Completed [facility] Gl[facility]ulin 00:00:00 [facility] Rho (d) Immune 2019-06-10 Completed [facility] 00:00:00 [facility] Rho (d) Immune 2019-06-10 Completed [facility] 00:00:00 [facility] Rho (d) Immune 2019-06-10 Completed [facility] 00:00:00 [facility] Rho (d) Immune 2019-06-10 Completed [facility] Gl[facility]ulin 00:00:00 [facility] Rho (d) Immune 2019-06-10 Completed [facility] 00:00:00 [facility] Rho (d) Immune 2019-06-10 Completed [facility] 00:00:00 [facility] Rho (d) Immune 2019-06-10 Completed [facility]ulin 00:00:00 [facility] Rho (d) Immune 2019-06-10 Completed [facility] 00:00:00 [facility] Rho (d) Immune 2019-06-10 Completed [facility] 00:00:00 [facility] Rho (d) Immune 2019-06-10 Completed [facility] 00:00:00 [facility] Rho (d) Immune 2019-06-10 Completed [facility] 00:00:00 [facility] Rho (d) Immune 2019-06-10 Completed [facility] 00:00:00 [facility] Rho (d) Immune 2019-06-10 Completed [facility] 00:00:00 [facility] Rho (d) Immune 2019-06-10 Completed [facility] 00:00:00 [facility] Rho (d) Immune 2019-06-10 Completed [facility] 00:00:00 [facility] Rho (d) Immune 2019-06-10 Completed [facility] 00:00:00 [facility] Rho (d) Immune 2019-06-10 Completed [facility] 00:00:00 [facility] Rho (d) Immune 2019-06-10 Completed [facility] 00:00:00 [facility] Rho (d) Immune 2019-06-10 Completed [facility] 00:00:00 [facility] Rho (d) Immune 2019-06-10 Completed [facility] 00:00:00 [facility] Rho (d) Immune 2019-06-10 Completed [facility] 00:00:00 [facility] Rho (d) Immune 2019-06-10 Completed [facility] 00:00:00 [facility] Rho (d) Immune 2019-06-10 Completed [facility] 00:00:00 [facility] Rho (d) Immune 2019-06-10 Completed [facility] 00:00:00 [facility] Rho (d) Immune 2019-06-10 Completed [facility] 00:00:00 [facility] Rho (d) Immune 2019-06-10 Completed [facility] 00:00:00 [facility] Rho (d) Immune 2019-06-10 Completed [facility] Gl[facility] 00:00:00 [facility] Rho (d) Immune 2019-06-10 Completed [facility] 00:00:00 [facility] Rho (d) Immune 2019-06-10 Completed [facility] 00:00:00 [facility] Rho (d) Immune 2019-06-10 Completed [facility] 00:00:00 [facility] Rho (d) Immune 2019-06-10 Completed [facility] 00:00:00 [facility] Rho (d) Immune 2019-06-10 Completed [facility] 00:00:00 [facility] Rho (d) Immune 2019-06-10 Completed [facility] 00:00:00 [facility] Rho (d) Immune 2019-06-10 Completed [facility] 00:00:00 [facility] Rho (d) Immune 2019-06-10 Completed [facility] 00:00:00 [facility] Rho (d) Immune 2019-06-10 Completed [facility] 00:00:00 [facility] Rho (d) Immune 2019-06-10 Completed [facility] 00:00:00 [facility] Rho (d) Immune 2019-06-10 Completed [facility] 00:00:00 [facility] Rho (d) Immune 2019-06-10 Completed [facility] 00:00:00 [facility] Rho (d) Immune 2019-06-10 Completed [facility] 00:00:00 [facility] Rho (d) Immune 2019-06-10 Completed [facility] 00:00:00 [facility] Rho (d) Immune 2019-06-10 Completed [facility] 00:00:00 [facility] Rho (d) Immune 2019-06-10 Completed [facility] 00:00:00 [facility] Rho (d) Immune 2019-06-10 Completed [facility] 00:00:00 [facility] Rho (d) Immune 2019-06-10 Completed [facility] 00:00:00 [facility] Rho (d) Immune 2019-06-10 Completed [facility] 00:00:00 [facility] Rho (d) Immune 2019-06-10 Completed [facility] 00:00:00 [facility] Rho (d) Immune 2019-06-10 Completed [facility] 00:00:00 [facility] Rho (d) Immune 2019-06-10 Completed [facility] 00:00:00 [facility] Rho (d) Immune 2019-06-10 Completed [facility] 00:00:00 [facility] Rho (d) Immune 2019-06-10 Completed [facility] 00:00:00 [facility] Rho (d) Immune 2019-06-10 Completed [facility] 00:00:00 [facility] Rho (d) Immune 2019-06-10 Completed [facility] 00:00:00 [facility] Rho (d) Immune 2019-06-10 Completed [facility] 00:00:00 [facility] Rho (d) Immune 2019-06-10 Completed [facility] 00:00:00 [facility] Rho (d) Immune 2019-06-10 Completed [facility] 00:00:00 [facility] Rho (d) Immune 2019-06-10 Completed [facility] 00:00:00 [facility] Rho (d) Immune 2019-06-10 Completed [facility] 00:00:00 [facility] Rho (d) Immune 2019-06-10 Completed [facility] 00:00:00 [facility] Rho (d) Immune 2019-06-10 Completed [facility] Gl[facility]ulin 00:00:00 [facility] Rho (d) Immune 2019-06-10 Completed [facility] 00:00:00 [facility] Rho (d) Immune 2019-06-10 Completed [facility] 00:00:00 [facility] Rho (d) Immune 2019-06-10 Completed [facility] 00:00:00 [facility] Rho (d) Immune 2019-06-10 Completed [facility] 00:00:00 [facility] Rho (d) Immune 2019-06-10 Completed [facility] 00:00:00 [facility] Rho (d) Immune 2019-06-10 Completed [facility] 00:00:00 [facility] Rho (d) Immune 2019-06-10 Completed [facility] 00:00:00 [facility] Rho (d) Immune 2019-06-10 Completed [facility] 00:00:00 [facility] Rho (d) Immune 2019-06-10 Completed [facility] 00:00:00 [facility] Rho (d) Immune 2019-06-10 Completed [facility] 00:00:00 [facility] Rho (d) Immune 2019-06-10 Completed [facility] 00:00:00 [facility] Rho (d) Immune 2019-06-10 Completed [facility] 00:00:00 [facility] Rho (d) Immune 2019-06-10 Completed [facility] 00:00:00 [facility] Rho (d) Immune 2019-06-10 Completed [facility] 00:00:00 [facility] Rho (d) Immune 2019-06-10 Completed [facility] 00:00:00 [facility] Rho (d) Immune 2019-06-10 Completed [facility] 00:00:00 [facility] Rho (d) Immune 2019-06-10 Completed [facility] 00:00:00 [facility] Rho (d) Immune 2019-06-10 Completed [facility] 00:00:00 [facility] Rho (d) Immune 2019-06-10 Completed [facility] 00:00:00 [facility] Rho (d) Immune 2019-06-10 Completed [facility] 00:00:00 [facility] Rho (d) Immune 2019-06-10 Completed [facility] 00:00:00 [facility] Rho (d) Immune 2019-06-10 Completed [facility] 00:00:00 [facility] Rho (d) Immune 2019-06-10 Completed [facility] 00:00:00 [facility] Rho (d) Immune 2019-06-10 Completed [facility] 00:00:00 [facility] Rho (d) Immune 2019-06-10 Completed [facility] 00:00:00 [facility] Rho (d) Immune 2019-06-10 Completed [facility]ulin 00:00:00 [facility] Tdap 2019-03-29 Completed [facility] 00:00:00 [facility] Rho (d) Immune 2019-03-29 Completed [facility] Gl[facility] 00:00:00 [facility] Tdap 2019-03-29 Completed [facility] 00:00:00 [facility] Rho (d) Immune 2019-03-29 Completed [facility] 00:00:00 [facility] Tdap 2019-03-29 Completed [facility] 00:00:00 [facility] Rho (d) Immune 2019-03-29 Completed [facility] 00:00:00 [facility] Tdap 2019-03-29 Completed [facility] 00:00:00 [facility] Rho (d) Immune 2019-03-29 Completed [facility] 00:00:00 [facility] Tdap 2019-03-29 Completed [facility] 00:00:00 [facility] Rho (d) Immune 2019-03-29 Completed [facility] Gl[facility]ulin 00:00:00 [facility] Tdap 2019-03-29 Completed [facility] 00:00:00 [facility] Rho (d) Immune 2019-03-29 Completed [facility] 00:00:00 [facility] Tdap 2019-03-29 Completed [facility] 00:00:00 [facility] Rho (d) Immune 2019-03-29 Completed [facility] Gl[facility] 00:00:00 [facility] Tdap 2019-03-29 Completed [facility] 00:00:00 [facility] Rho (d) Immune 2019-03-29 Completed [facility] Gl[facility]ulin 00:00:00 [facility] Tdap 2019-03-29 Completed [facility] 00:00:00 [facility] Rho (d) Immune 2019-03-29 Completed [facility] 00:00:00 [facility] Tdap 2019-03-29 Completed [facility] 00:00:00 [facility] Rho (d) Immune 2019-03-29 Completed [facility] 00:00:00 [facility] Tdap 2019-03-29 Completed [facility] 00:00:00 [facility] Rho (d) Immune 2019-03-29 Completed [facility] Gl[facility]ulin 00:00:00 [facility] Tdap 2019-03-29 Completed [facility] 00:00:00 [facility] Rho (d) Immune 2019-03-29 Completed [facility] 00:00:00 [facility] Tdap 2019-03-29 Completed [facility] 00:00:00 [facility] Rho (d) Immune 2019-03-29 Completed [facility] 00:00:00 [facility] TDAP 2019-03-29 Completed [facility] 00:00:00 [facility] Rho (d) Immune 2019-03-29 Completed [facility] 00:00:00 [facility] TDAP 2019-03-29 Completed [facility] 00:00:00 [facility] Rho (d) Immune 2019-03-29 Completed [facility] 00:00:00 [facility] TDAP 2019-03-29 Completed [facility] 00:00:00 [facility] Rho (d) Immune 2019-03-29 Completed [facility] 00:00:00 [facility] TDAP 2019-03-29 Completed [facility] 00:00:00 [facility] Rho (d) Immune 2019-03-29 Completed [facility] 00:00:00 [facility] TDAP 2019-03-29 Completed [facility] 00:00:00 [facility] Rho (d) Immune 2019-03-29 Completed [facility] 00:00:00 [facility] TDAP 2019-03-29 Completed [facility] 00:00:00 [facility] Rho (d) Immune 2019-03-29 Completed [facility] 00:00:00 [facility] TDAP 2019-03-29 Completed [facility] 00:00:00 [facility] Rho (d) Immune 2019-03-29 Completed [facility] 00:00:00 [facility] TDAP 2019-03-29 Completed [facility] 00:00:00 [facility] Rho (d) Immune 2019-03-29 Completed [facility] 00:00:00 [facility] TDAP 2019-03-29 Completed [facility] 00:00:00 [facility] Rho (d) Immune 2019-03-29 Completed [facility] 00:00:00 [facility] TDAP 2019-03-29 Completed [facility] 00:00:00 [facility] Rho (d) Immune 2019-03-29 Completed [facility] 00:00:00 [facility] TDAP 2019-03-29 Completed [facility] 00:00:00 [facility] Rho (d) Immune 2019-03-29 Completed [facility] 00:00:00 [facility] TDAP 2019-03-29 Completed [facility] 00:00:00 [facility] Rho (d) Immune 2019-03-29 Completed [facility] 00:00:00 [facility] TDAP 2019-03-29 Completed [facility] 00:00:00 [facility] Rho (d) Immune 2019-03-29 Completed [facility] 00:00:00 [facility] TDAP 2019-03-29 Completed [facility] 00:00:00 [facility] Rho (d) Immune 2019-03-29 Completed [facility] 00:00:00 [facility] TDAP 2019-03-29 Completed [facility] 00:00:00 [facility] Rho (d) Immune 2019-03-29 Completed [facility] 00:00:00 [facility] TDAP 2019-03-29 Completed [facility] 00:00:00 [facility] Rho (d) Immune 2019-03-29 Completed [facility] 00:00:00 [facility] TDAP 2019-03-29 Completed [facility] 00:00:00 [facility] Rho (d) Immune 2019-03-29 Completed [facility] 00:00:00 [facility] TDAP 2019-03-29 Completed [facility] 00:00:00 [facility] Rho (d) Immune 2019-03-29 Completed [facility] 00:00:00 [facility] TDAP 2019-03-29 Completed [facility] 00:00:00 [facility] Rho (d) Immune 2019-03-29 Completed [facility] 00:00:00 [facility] TDAP 2019-03-29 Completed [facility] 00:00:00 [facility] Rho (d) Immune 2019-03-29 Completed [facility] 00:00:00 [facility] TDAP 2019-03-29 Completed [facility] 00:00:00 [facility] Rho (d) Immune 2019-03-29 Completed [facility] 00:00:00 [facility] TDAP 2019-03-29 Completed [facility] 00:00:00 [facility] Rho (d) Immune 2019-03-29 Completed [facility] 00:00:00 [facility] TDAP 2019-03-29 Completed [facility] 00:00:00 [facility] Rho (d) Immune 2019-03-29 Completed [facility] 00:00:00 [facility] TDAP 2019-03-29 Completed [facility] 00:00:00 [facility] Rho (d) Immune 2019-03-29 Completed [facility] 00:00:00 [facility] TDAP 2019-03-29 Completed [facility] 00:00:00 [facility] Rho (d) Immune 2019-03-29 Completed [facility] 00:00:00 [facility] TDAP 2019-03-29 Completed [facility] 00:00:00 [facility] Rho (d) Immune 2019-03-29 Completed [facility] 00:00:00 [facility] TDAP 2019-03-29 Completed [facility] 00:00:00 [facility] Rho (d) Immune 2019-03-29 Completed [facility] 00:00:00 [facility] TDAP 2019-03-29 Completed [facility] 00:00:00 [facility] Rho (d) Immune 2019-03-29 Completed [facility] 00:00:00 [facility] TDAP 2019-03-29 Completed [facility] 00:00:00 [facility] Rho (d) Immune 2019-03-29 Completed [facility] 00:00:00 [facility] TDAP 2019-03-29 Completed [facility] 00:00:00 [facility] Rho (d) Immune 2019-03-29 Completed [facility] 00:00:00 [facility] TDAP 2019-03-29 Completed [facility] 00:00:00 [facility] Rho (d) Immune 2019-03-29 Completed [facility] 00:00:00 [facility] TDAP 2019-03-29 Completed [facility] 00:00:00 [facility] Rho (d) Immune 2019-03-29 Completed [facility] 00:00:00 [facility] TDAP 2019-03-29 Completed [facility] 00:00:00 [facility] Rho (d) Immune 2019-03-29 Completed [facility] 00:00:00 [facility] TDAP 2019-03-29 Completed [facility] 00:00:00 [facility] Rho (d) Immune 2019-03-29 Completed [facility] 00:00:00 [facility] TDAP 2019-03-29 Completed [facility] 00:00:00 [facility] Rho (d) Immune 2019-03-29 Completed [facility] 00:00:00 [facility] TDAP 2019-03-29 Completed [facility] 00:00:00 [facility] Rho (d) Immune 2019-03-29 Completed [facility] 00:00:00 [facility] TDAP 2019-03-29 Completed [facility] 00:00:00 [facility] Rho (d) Immune 2019-03-29 Completed [facility] 00:00:00 [facility] TDAP 2019-03-29 Completed [facility] 00:00:00 [facility] Rho (d) Immune 2019-03-29 Completed [facility] 00:00:00 [facility] TDAP 2019-03-29 Completed [facility] 00:00:00 [facility] Rho (d) Immune 2019-03-29 Completed [facility] 00:00:00 [facility] TDAP 2019-03-29 Completed [facility] 00:00:00 [facility] Rho (d) Immune 2019-03-29 Completed [facility] 00:00:00 [facility] TDAP 2019-03-29 Completed [facility] 00:00:00 [facility] Rho (d) Immune 2019-03-29 Completed [facility] 00:00:00 [facility] TDAP 2019-03-29 Completed [facility] 00:00:00 [facility] Rho (d) Immune 2019-03-29 Completed [facility] 00:00:00 [facility] TDAP 2019-03-29 Completed [facility] 00:00:00 [facility] Rho (d) Immune 2019-03-29 Completed [facility] 00:00:00 [facility] TDAP 2019-03-29 Completed [facility] 00:00:00 [facility] Rho (d) Immune 2019-03-29 Completed [facility] 00:00:00 [facility] TDAP 2019-03-29 Completed [facility] 00:00:00 [facility] Rho (d) Immune 2019-03-29 Completed [facility] 00:00:00 [facility] TDAP 2019-03-29 Completed [facility] 00:00:00 [facility] Rho (d) Immune 2019-03-29 Completed [facility] 00:00:00 [facility] TDAP 2019-03-29 Completed [facility] 00:00:00 [facility] Rho (d) Immune 2019-03-29 Completed [facility] 00:00:00 [facility] TDAP 2019-03-29 Completed [facility] 00:00:00 [facility] Rho (d) Immune 2019-03-29 Completed [facility] 00:00:00 [facility] TDAP 2019-03-29 Completed [facility] 00:00:00 [facility] Rho (d) Immune 2019-03-29 Completed [facility] 00:00:00 [facility] TDAP 2019-03-29 Completed [facility] 00:00:00 [facility] Rho (d) Immune 2019-03-29 Completed [facility] 00:00:00 [facility] TDAP 2019-03-29 Completed [facility] 00:00:00 [facility] Rho (d) Immune 2019-03-29 Completed [facility] 00:00:00 [facility] TDAP 2019-03-29 Completed [facility] 00:00:00 [facility] Rho (d) Immune 2019-03-29 Completed [facility] 00:00:00 [facility] TDAP 2019-03-29 Completed [facility] 00:00:00 [facility] Rho (d) Immune 2019-03-29 Completed [facility] 00:00:00 [facility] TDAP 2019-03-29 Completed [facility] 00:00:00 [facility] Rho (d) Immune 2019-03-29 Completed [facility] 00:00:00 [facility] TDAP 2019-03-29 Completed [facility] 00:00:00 [facility] Rho (d) Immune 2019-03-29 Completed [facility] 00:00:00 [facility] TDAP 2019-03-29 Completed [facility] 00:00:00 [facility] Rho (d) Immune 2019-03-29 Completed [facility] 00:00:00 [facility] TDAP 2019-03-29 Completed [facility] 00:00:00 [facility] Rho (d) Immune 2019-03-29 Completed [facility] 00:00:00 [facility] TDAP 2019-03-29 Completed [facility] 00:00:00 [facility] Rho (d) Immune 2019-03-29 Completed [facility] 00:00:00 [facility] TDAP 2019-03-29 Completed [facility] 00:00:00 [facility] Rho (d) Immune 2019-03-29 Completed [facility] 00:00:00 [facility] TDAP 2019-03-29 Completed [facility] 00:00:00 [facility] Rho (d) Immune 2019-03-29 Completed [facility] 00:00:00 [facility] TDAP 2019-03-29 Completed [facility] 00:00:00 [facility] Rho (d) Immune 2019-03-29 Completed [facility] 00:00:00 [facility] TDAP 2019-03-29 Completed [facility] 00:00:00 [facility] Rho (d) Immune 2019-03-29 Completed [facility] 00:00:00 [facility] TDAP 2019-03-29 Completed [facility] 00:00:00 [facility] Rho (d) Immune 2019-03-29 Completed [facility] 00:00:00 [facility] TDAP 2019-03-29 Completed [facility] 00:00:00 [facility] Rho (d) Immune 2019-03-29 Completed [facility] 00:00:00 [facility] TDAP 2019-03-29 Completed [facility] 00:00:00 [facility] Rho (d) Immune 2019-03-29 Completed [facility] 00:00:00 [facility] TDAP 2019-03-29 Completed [facility] 00:00:00 [facility] Rho (d) Immune 2019-03-29 Completed [facility] 00:00:00 [facility] TDAP 2019-03-29 Completed [facility] 00:00:00 [facility] Rho (d) Immune 2019-03-29 Completed [facility] 00:00:00 [facility] TDAP 2019-03-29 Completed [facility] 00:00:00 [facility] Rho (d) Immune 2019-03-29 Completed [facility] 00:00:00 [facility] TDAP 2019-03-29 Completed [facility] 00:00:00 [facility] Rho (d) Immune 2019-03-29 Completed [facility] 00[facility]00:00 [facility] TDAP 2019-03-29 Completed [facility] 00:00:00 [facility] Rho (d) Immune 2019-03-29 Completed [facility] Globulin 00:00:00 [facility] TDAP 2019-03-29 Completed [facility] 00:00:00 [facility] Rho (d) Immune 2019-03-29 Completed [facility] Globulin 00:00:00 [facility] TDAP 2019-03-29 Completed [facility] 00:00:00 [facility] Rho (d) Immune 2019-03-29 Completed [facility] Globulin 00:00:00 [facility] TDAP 2019-03-29 Completed [facility] 00:00:00 [facility] Rho (d) Immune 2019-03-29 Completed [facility] Globulin 00:00:00 [facility] TDAP 2019-03-29 Completed [facility] 00:00:00 [facility] Rho (d) Immune 2019-03-29 Completed [facility] Globulin 00:00:00 [facility] TDAP 2019-03-29 Completed [facility] 00:00:00 [facility] Rho (d) Immune 2019-03-29 Completed [facility] Globulin 00:00:00 [facility] TDAP 2019-03-29 Completed [facility] 00:00:00 [facility] Rho (d) Immune 2019-03-29 Completed [facility] Globulin 00:00:00 [facility] TDAP 2019-03-29 Completed [facility] 00:00:00 [facility] Rho (d) Immune 2019-03-29 Completed [facility] Globulin 00:00:00 [facility] TDAP 2019-03-29 Completed [facility] 00:00:00 [facility] Rho (d) Immune 2019-03-29 Completed [facility] Globulin 00:00:00 [facility] TDAP 2019-03-29 Completed [facility] 00:00:00 [facility] Rho (d) Immune 2019-03-29 Completed [facility] Globulin 00:00:00 [facility] TDAP 2019-03-29 Completed [facility] 00:00:00 [facility] Rho (d) Immune 2019-03-29 Completed [facility] Globulin 00:00:00 [facility] TDAP 2019-03-29 Completed [facility] 00:00:00 [facility] Rho (d) Immune 2019-03-29 Completed [facility] Globulin 00:00:00 [facility] TDAP 2019-03-29 Completed [facility] 00:00:00 [facility] Rho (d) Immune 2019-03-29 Completed [facility] Globulin 00:00:00 [facility] Tdap 2019-03-29 Completed [facility] 00:00:00 [facility] Rho (d) Immune 2019-03-29 Completed [facility] Globulin 00:00:00 [facility] Tdap 2019-03-29 Completed [facility] 00:00:00 [facility] Rho (d) Immune 2019-03-29 Completed [facility] Globulin 00:00:00 [facility] Tdap 2019-03-29 Completed [facility] 00:00:00 [facility] Rho (d) Immune 2019-03-29 Completed [facility] Globulin 00:00:00 [facility] Tdap 2019-03-29 Completed [facility] 00:00:00 [facility] Rho (d) Immune 2019-03-29 Completed [facility] Globulin 00:00:00 [facility] Tdap 2019-03-29 Completed [facility] 00:00:00 [facility] Rho (d) Immune 2019-03-29 Completed [facility] Globulin 00:00:00 [facility] Tdap 2019-03-29 Completed [facility] 00:00:00 [facility] Rho (d) Immune 2019-03-29 Completed [facility] Globulin 00:00:00 [facility] Tdap 2019-03-29 Completed [facility] 00:00:00 [facility] Rho (d) Immune 2019-03-29 Completed [facility] Globulin 00:00:00 [facility] Tdap 2019-03-29 Completed [facility] 00:00:00 [facility] Rho (d) Immune 2019-03-29 Completed [facility] Globulin 00:00:00 [facility] Influenza Virus 2018-10-20 Completed [facility] y [facility] Vaccine Quad .5 mL 00:00:00 [facility] Influenza Virus 2018-10-20 Completed [facility] .5 mL 00:00:00 [facility] Influenza Virus 2018-10-20 Completed [facility] .5 mL 00:00:00 [facility] Influenza [...] y of [facility] .5 mL 00:00:00 [facility] Influenza Virus [...] y of Vaccine [facility] .5 mL 00:00:00 [facility] Influenza Virus [...] y of [facility] .5 mL 00:00:00 [facility] Influenza Virus 2018-10-20 Completed [facility] .5 mL 00:00:00 [facility] Influenza Virus 2018-10-20 Completed [facility] .5 mL 00:00:00 [facility] Influenza Virus 2018-10-20 Completed [facility] .5 mL 00:00:00 [facility] Influenza Virus 2018-10-20 Completed [facility] .5 mL 00:00:00 [facility] Influenza Virus [...] y of Vaccine [facility] .5 mL 00:00:00 [facility] Influenza Virus [...] y of [facility] .5 mL 00:00:00 [facility] Influenza Virus 2018-10-20 Completed [facility] .5 mL 00:00:00 [facility] Influenza Virus 2018-10-20 Completed [facility] .5 mL 00:00:00 [facility] Influenza Virus 2018-10-20 Completed [facility] .5 mL 00:00:00 [facility] Influenza Virus 2018-10-20 Completed [facility] .5 mL 00:00:00 [facility] Influenza Virus 2018-10-20 Completed [facility] .5 mL 00:00:00 [facility] Influenza Virus 2018-10-20 Completed [facility] .5 mL 00:00:00 [facility] Influenza Virus 2018-10-20 Completed [facility] .5 mL 00:00:00 [facility] Influenza Virus 2018-10-20 Completed [facility] .5 mL 00:00:00 [facility] Influenza Virus 2018-10-20 Completed [facility] .5 mL 00:00:00 [facility] Influenza Virus 2018-10-20 Completed [facility] .5 mL 00:00:00 [facility] Influenza Virus [...] y of Vacc[facility] .5 mL 00:00:00 [facility] HPV9 2018-07-11 Completed [facility] 00:00:00 [facility] HPV9 2018-07-11 Completed [facility] 00:00:00 [facility] HPV9 2018-07-11 Completed [facility] 00:00:00 [facility] HPV9 2018-07-11 Completed [facility] 00:00:00 [facility] HPV9 2018-07-11 Completed [facility] 00:00:00 [facility] HPV9 2018-07-11 Completed [facility] 00:00:00 [facility] HPV9 2018-07-11 Completed [facility] 00:00:00 [facility] HPV9 2018-07-11 Completed [facility] 00:00:00 [facility] HPV9 2018-07-11 Completed [facility] 00:00:00 [facility] HPV9 2018-07-11 Completed [facility] 00:00:00 [facility] HPV9 2018-07-11 Completed [facility] 00:00:00 [facility] HPV9 2018-07-11 Completed [facility] 00:00:00 [facility] HPV9 2018-07-11 Completed [facility] 00:00:00 [facility] HPV9 2018-07-11 Completed [facility] 00:00:00 [facility] HPV9 2018-07-11 Completed [facility] 00:00:00 [facility] HPV9 2018-07-11 Completed [facility] 00:00:00 [facility] HPV9 2018-07-11 Completed [facility] 00:00:00 [facility] HPV9 2018-07-11 Completed [facility] 00:00:00 [facility] HPV9 2018-07-11 Completed [facility] [...] Branch HPV9 2018-07-11 Completed [facility] 00:00:00 [facility] HPV9 2018-07-11 Completed [facility] 00:00:00 [facility] HPV9 2018-07-11 Completed [facility] 00:00:00 [facility] HPV9 2018-07-11 Completed [facility] 00:00:00 [facility] HPV9 2018-07-11 Completed [facility] 00:00:00 [facility] HPV9 2018-07-11 Completed [facility] 00:00:00 [facility] HPV9 2018-07-11 Completed [facility] 00:00:00 [facility] HPV9 2018-07-11 Completed [facility] 00:00:00 [facility] HPV9 2018-07-11 Completed [facility] 00:00:00 [facility] HPV9 2018-07-11 Completed [facility] 00:00:00 [facility] HPV9 2018-06-11 Completed [facility] 00:00:00 [facility] Rho (d) Immune 2018-06-11 Completed [facility] Globulin 00:00:00 [facility] 2018-06-11 Completed [facility] 00:00:00 [facility] Rho (d) Immune 2018-06-11 Completed [facility] Globulin 00:00:00 [facility] HPV9 2018-06-11 Completed [facility] 00:00:00 [facility] Rho (d) Immune 2018-06-11 Completed [facility] Globulin 00:00:00 [facility] HPV9 2018-06-11 Completed [facility] 00:00:00 [facility] Rho (d) Immune 2018-06-11 Completed [facility] Globulin 00:00:00 [facility] HPV9 2018-06-11 Completed [facility] 00:00:00 [facility] Rho (d) Immune 2018-06-11 Completed [facility] Globulin 00:00:00 [facility] HPV9 2018-06-11 Completed [facility] 00:00:00 [facility] Rho (d) Immune 2018-06-11 Completed [facility] Globulin 00:00:00 [facility] HPV9 2018-06-11 Completed [facility] 00:00:00 [facility] Rho (d) Immune 2018-06-11 Completed [facility] Globulin 00:00:00 [facility] HPV9 2018-06-11 Completed [facility] 00:00:00 [facility] Rho (d) Immune 2018-06-11 Completed [facility] Globulin 00:00:00 [facility] HPV9 2018-06-11 Completed [facility] 00:00:00 [facility] Rho (d) Immune 2018-06-11 Completed [facility] Globulin 00:00:00 [facility] HPV9 2018-06-11 Completed [facility] 00:00:00 [facility] Rho (d) Immune 2018-06-11 Completed [facility] Globulin 00:00:00 [facility] HPV9 2018-06-11 Completed [facility] 00:00:00 [facility] Rho (d) Immune 2018-06-11 Completed [facility] Globulin 00:00:00 [facility] HPV9 2018-06-11 Completed [facility] 00:00:00 [facility] Rho (d) Immune 2018-06-11 Completed [facility] Globulin 00:00:00 [facility] HPV9 2018-06-11 Completed [facility] 00:00:00 [facility] Rho (d) Immune 2018-06-11 Completed [facility] Globulin 00:00:00 [facility] HPV9 2018-06-11 Completed [facility] 00:00:00 [facility] Rho (d) Immune 2018-06-11 Completed [facility] Globulin 00:00:00 [facility] HPV9 2018-06-11 Completed [facility] 00:00:00 [facility] Rho (d) Immune 2018-06-11 Completed [facility] Globulin 00:00:00 [facility] HPV9 2018-06-11 Completed [facility] 00:00:00 [facility] Rho (d) Immune 2018-06-11 Completed [facility] Globulin 00:00:00 [facility] HPV9 2018-06-11 Completed [facility] 00:00:00 [facility] Rho (d) Immune 2018-06-11 Completed [facility] Globulin 00:00:00 [facility] HPV9 2018-06-11 Completed [facility] 00:00:00 [facility] Rho (d) Immune 2018-06-11 Completed [facility] Globulin 00:00:00 [facility] HPV9 2018-06-11 Completed [facility] 00:00:00 [facility] Rho (d) Immune 2018-06-11 Completed [facility] Globulin 00:00:00 [facility] HPV9 2018-06-11 Completed [facility] 00:00:00 [facility] Rho (d) Immune 2018-06-11 Completed [facility] Globulin 00:00:00 [facility] HPV9 2018-06-11 Completed [facility] 00:00:00 [facility] Rho (d) Immune 2018-06-11 Completed [facility] Globulin 00:00:00 [facility] HPV9 2018-06-11 Completed [facility] 00:00:00 [facility] Rho (d) Immune 2018-06-11 Completed [facility] Globulin 00:00:00 [facility] HPV9 2018-06-11 Completed [facility] 00:00:00 [facility] Rho (d) Immune 2018-06-11 Completed [facility] Globulin 00:00:00 [facility] HPV9 2018-06-11 Completed [facility] 00:00:00 [facility] Rho (d) Immune 2018-06-11 Completed [facility] Globulin 00:00:00 [facility] HPV9 2018-06-11 Completed [facility] 00:00:00 [facility] Rho (d) Immune 2018-06-11 Completed [facility] Globulin 00:00:00 [facility] HPV9 2018-06-11 Completed [facility] 00:00:00 [facility] Rho (d) Immune 2018-06-11 Completed [facility] Globulin 00:00:00 [facility] HPV9 2018-06-11 Completed [facility] 00:00:00 [facility] Rho (d) Immune 2018-06-11 Completed [facility] Globulin 00:00:00 [facility] HPV9 2018-06-11 Completed [facility] 00:00:00 [facility] Rho (d) Immune 2018-06-11 Completed [facility] Globulin 00:00:00 [facility] HPV9 2018-06-11 Completed [facility] 00:00:00 [facility] Rho (d) Immune 2018-06-11 Completed [facility] Globulin 00:00:00 [facility] HPV9 2018-06-11 Completed [facility] 00:00:00 [facility] Rho (d) Immune 2018-06-11 Completed [facility] Globulin 00:00:00 [facility] HPV9 2018-06-11 Completed [facility] 00:00:00 [facility] Rho (d) Immune 2018-06-11 Completed [facility] Globulin 00:00:00 [facility] HPV9 2018-06-11 Completed [facility] 00:00:00 [facility] Rho (d) Immune 2018-06-11 Completed [facility] Globulin 00:00:00 [facility] HPV9 2018-06-11 Completed [facility] 00:00:00 [facility] Rho (d) Immune 2018-06-11 Completed [facility] Globulin 00:00:00 [facility] HPV9 2018-06-11 Completed [facility] 00:00:00 [facility] Rho (d) Immune 2018-06-11 Completed [facility] Globulin 00:00:00 [facility] HPV9 2018-06-11 Completed [facility] 00:00:00 [facility] Rho (d) Immune 2018-06-11 Completed [facility] Globulin 00:00:00 [facility] HPV9 2018-06-11 Completed [facility] 00:00:00 [facility] Rho (d) Immune 2018-06-11 Completed [facility] Globulin 00:00:00 [facility] HPV9 2018-06-11 Completed [facility] 00:00:00 [facility] Rho (d) Immune 2018-06-11 Completed [facility] Globulin 00:00:00 [facility] HPV9 2018-06-11 Completed [facility] 00:00:00 [facility] Rho (d) Immune 2018-06-11 Completed [facility] Globulin 00:00:00 [facility] HPV9 2018-06-11 Completed [facility] 00:00:00 [facility] Rho (d) Immune 2018-06-11 Completed [facility] Globulin 00:00:00 [facility] HPV9 2018-06-11 Completed [facility] 00:00:00 [facility] Rho (d) Immune 2018-06-11 Completed [facility] Globulin 00:00:00 [facility] HPV9 2018-06-11 Completed [facility] 00:00:00 [facility] Rho (d) Immune 2018-06-11 Completed [facility] Globulin 00:00:00 [facility] HPV9 2018-06-11 Completed [facility] 00:00:00 [facility] Rho (d) Immune 2018-06-11 Completed [facility] Globulin 00:00:00 [facility] HPV9 2018-06-11 Completed [facility] 00:00:00 [facility] Rho (d) Immune 2018-06-11 Completed [facility] Globulin 00:00:00 [facility] HPV9 2018-06-11 Completed [facility] 00:00:00 [facility] Rho (d) Immune 2018-06-11 Completed [facility] Globulin 00:00:00 [facility] HPV9 2018-06-11 Completed [facility] 00:00:00 [facility] Rho (d) Immune 2018-06-11 Completed [facility] Globulin 00:00:00 [facility] HPV9 2018-06-11 Completed [facility] 00:00:00 [facility] Rho (d) Immune 2018-06-11 Completed [facility] Globulin 00:00:00 [facility] HPV9 2018-06-11 Completed [facility] 00:00:00 [facility] Rho (d) Immune 2018-06-11 Completed [facility] Globulin 00:00:00 [facility] HPV9 2018-06-11 Completed [facility] 00:00:00 [facility] Rho (d) Immune 2018-06-11 Completed [facility] Globulin 00:00:00 [facility] HPV9 2018-06-11 Completed [facility] 00:00:00 [facility] Rho (d) Immune 2018-06-11 Completed [facility] Globulin 00:00:00 [facility] HPV9 2018-06-11 Completed [facility] 00:00:00 [facility] Rho (d) Immune 2018-06-11 Completed [facility] Globulin 00:00:00 [facility] HPV9 2018-06-11 Completed [facility] 00:00:00 [facility] Rho (d) Immune 2018-06-11 Completed [facility] Globulin 00:00:00 [facility] HPV9 2018-06-11 Completed [facility] 00:00:00 [facility] Rho (d) Immune 2018-06-11 Completed [facility] Globulin 00:00:00 [facility] HPV9 2018-06-11 Completed [facility] 00:00:00 [facility] Rho (d) Immune 2018-06-11 Completed [facility] Globulin 00:00:00 [facility] HPV9 2018-06-11 Completed [facility] 00:00:00 [facility] Rho (d) Immune 2018-06-11 Completed [facility] Globulin 00:00:00 [facility] HPV9 2018-06-11 Completed [facility] 00:00:00 [facility] Rho (d) Immune 2018-06-11 Completed [facility] Globulin 00:00:00 [facility] HPV9 2018-06-11 Completed [facility] 00:00:00 [facility] Rho (d) Immune 2018-06-11 Completed [facility] Globulin 00:00:00 [facility] HPV9 2018-06-11 Completed [facility] 00:00:00 [facility] Rho (d) Immune 2018-06-11 Completed [facility] Globulin 00:00:00 [facility] HPV9 2018-06-11 Completed [facility] 00:00:00 [facility] Rho (d) Immune 2018-06-11 Completed [facility] Globulin 00:00:00 [facility] HPV9 2018-06-11 Completed [facility] 00:00:00 [facility] Rho (d) Immune 2018-06-11 Completed [facility] Globulin 00:00:00 [facility] HPV9 2018-06-11 Completed [facility] 00:00:00 [facility] Rho (d) Immune 2018-06-11 Completed [facility] Globulin 00:00:00 [facility] HPV9 2018-06-11 Completed [facility] 00:00:00 [facility] Rho (d) Immune 2018-06-11 Completed [facility] Globulin 00:00:00 [facility] HPV9 2018-06-11 Completed [facility] 00:00:00 [facility] Rho (d) Immune 2018-06-11 Completed [facility] Globulin 00:00:00 [facility] HPV9 2018-06-11 Completed [facility] 00:00:00 [facility] Rho (d) Immune 2018-06-11 Completed [facility] Globulin 00:00:00 [facility] HPV9 2018-06-11 Completed [facility] 00:00:00 [facility] Rho (d) Immune 2018-06-11 Completed [facility] Globulin 00:00:00 [facility] HPV9 2018-06-11 Completed [facility] 00:00:00 [facility] Rho (d) Immune 2018-06-11 Completed [facility] Globulin 00:00:00 [facility] HPV9 2018-06-11 Completed [facility] 00:00:00 [facility] Rho (d) Immune 2018-06-11 Completed [facility] Globulin 00:00:00 [facility] HPV9 2018-06-11 Completed [facility] 00:00:00 [facility] Rho (d) Immune 2018-06-11 Completed [facility] Globulin 00:00:00 [facility] HPV9 2018-06-11 Completed [facility] 00:00:00 [facility] Rho (d) Immune 2018-06-11 Completed [facility] Globulin 00:00:00 [facility] HPV9 2018-06-11 Completed [facility] 00:00:00 [facility] Rho (d) Immune 2018-06-11 Completed [facility] Globulin 00:00:00 [facility] HPV9 2018-06-11 Completed [facility] 00:00:00 [facility] Rho (d) Immune 2018-06-11 Completed [facility] Globulin 00:00:00 [facility] HPV9 2018-06-11 Completed [facility] 00:00:00 [facility] Rho (d) Immune 2018-06-11 Completed [facility] Globulin 00:00:00 [facility] HPV9 2018-06-11 Completed [facility] 00:00:00 [facility] Rho (d) Immune 2018-06-11 Completed [facility] Globulin 00:00:00 [facility] HPV9 2018-06-11 Completed [facility] 00:00:00 [facility] Rho (d) Immune 2018-06-11 Completed [facility] Globulin 00:00:00 [facility] HPV9 2018-06-11 Completed [facility] 00:00:00 [facility] Rho (d) Immune 2018-06-11 Completed [facility] Globulin 00:00:00 [facility] HPV9 2018-06-11 Completed [facility] 00:00:00 [facility] Rho (d) Immune 2018-06-11 Completed [facility] Globulin 00:00:00 [facility] HPV9 2018-06-11 Completed [facility] 00:00:00 [facility] Rho (d) Immune 2018-06-11 Completed [facility] Globulin 00:00:00 [facility] HPV9 2018-06-11 Completed [facility] 00:00:00 [facility] Rho (d) Immune 2018-06-11 Completed [facility] Globulin 00:00:00 [facility] HPV9 2018-06-11 Completed [facility] 00:00:00 [facility] Rho (d) Immune 2018-06-11 Completed [facility] Globulin 00:00:00 [facility] HPV9 2018-06-11 Completed [facility] 00:00:00 [facility] Rho (d) Immune 2018-06-11 Completed [facility] Globulin 00:00:00 [facility] HPV9 2018-06-11 Completed [facility] 00:00:00 [facility] Rho (d) Immune 2018-06-11 Completed [facility] Globulin 00:00:00 [facility] HPV9 2018-06-11 Completed [facility] 00:00:00 [facility] Rho (d) Immune 2018-06-11 Completed [facility] Globulin 00:00:00 [facility] HPV9 2018-06-11 Completed [facility] 00:00:00 [facility] Rho (d) Immune 2018-06-11 Completed [facility] Globulin 00:00:00 [facility] HPV9 2018-06-11 Completed [facility] 00:00:00 [facility] Rho (d) Immune 2018-06-11 Completed [facility] Globulin 00:00:00 [facility] HPV9 2018-06-11 Completed [facility] 00:00:00 [facility] Rho (d) Immune 2018-06-11 Completed [facility] Globulin 00:00:00 [facility] HPV9 2018-06-11 Completed [facility] 00:00:00 [facility] Rho (d) Immune 2018-06-11 Completed [facility] Globulin 00:00:00 [facility] HPV9 2018-06-11 Completed [facility] 00:00:00 [facility] Rho (d) Immune 2018-06-11 Completed [facility] Globulin 00:00:00 [facility] HPV9 2018-06-11 Completed [facility] 00:00:00 [facility] Rho (d) Immune 2018-06-11 Completed [facility] Globulin 00:00:00 [facility] HPV9 2018-06-11 Completed [facility] 00:00:00 [facility] Rho (d) Immune 2018-06-11 Completed [facility] Globulin 00:00:00 [facility] HPV9 2018-06-11 Completed [facility] 00:00:00 [facility] Rho (d) Immune 2018-06-11 Completed [facility] 00:00:00 [facility] HPV9 2018-06-11 Completed [facility] 00:00:00 [facility] Rho (d) Immune 2018-06-11 Completed [facility] 00:00:00 [facility] HPV9 2018-06-11 Completed [facility] 00:00:00 [facility] Rho (d) Immune 2018-06-11 Completed [facility] 00:00:00 [facility] HPV9 2018-06-11 Completed [facility] 00:00:00 [facility] Rho (d) Immune 2018-06-11 Completed [facility] 00:00:00 [facility] HPV9 2018-06-11 Completed [facility] 00:00:00 [facility] Rho (d) Immune 2018-06-11 Completed [facility] 00:00:00 [facility] HPV9 2018-06-11 Completed [facility] 00:00:00 [facility] Rho (d) Immune 2018-06-11 Completed [facility] 00:00:00 [facility] HPV9 2018-06-11 Completed [facility] 00:00:00 [facility] Rho (d) Immune 2018-06-11 Completed [facility] 00:00:00 [facility] HPV9 2018-06-11 Completed [facility] 00:00:00 [facility] Rho (d) Immune 2018-06-11 Completed [facility] 00:00:00 [facility] HPV9 2018-06-11 Completed [facility] 00:00:00 [facility] Rho (d) Immune 2018-06-11 Completed [facility] 00:00:00 [facility] HPV9 2018-06-11 Completed [facility] 00:00:00 [facility] Rho (d) Immune 2018-06-11 Completed [facility] 00:00:00 [facility] HPV9 2018-06-11 Completed [facility] 00:00:00 [facility] Rho (d) Immune 2018-06-11 Completed [facility] 00:00:00 [facility] HPV9 2018-06-11 Completed [facility] 00:00:00 [facility] Rho (d) Immune 2018-06-11 Completed [facility] 00:00:00 [facility] HPV9 2018-06-11 Completed [facility] 00:00:00 [facility] Rho (d) Immune 2018-06-11 Completed [facility] 00:00:00 [facility] HPV9 2018-06-11 Completed [facility] 00:00:00 [facility] Rho (d) Immune 2018-06-11 Completed [facility] 00:00:00 [facility] HPV9 2018-06-11 Completed [facility] 00:00:00 [facility] Rho (d) Immune 2018-06-11 Completed [facility] 00:00:00 [facility] HPV9 2018-06-11 Completed [facility] 00:00:00 [facility] Rho (d) Immune 2018-06-11 Completed [facility] 00:00:00 [facility] HPV9 2018-06-11 Completed [facility] 00:00:00 [facility] Rho (d) Immune 2018-06-11 Completed [facility] 00:00:00 [facility] HPV9 2018-06-11 Completed [facility] 00:00:00 [facility] Rho (d) Immune 2018-06-11 Completed [facility] 00:00:00 [facility] HPV9 2018-06-11 Completed [facility] 00:00:00 [facility] Rho (d) Immune 2018-06-11 Completed [facility] 00:00:00 [facility] HPV9 2018-06-11 Completed [facility] 00:00:00 [facility] Rho (d) Immune 2018-06-11 Completed [facility] 00:00:00 [facility] HPV9 2018-06-11 Completed [facility] 00:00:00 [facility] Rho (d) Immune 2018-06-11 Completed [facility] 00:00:00 [facility] HPV9 2018-06-11 Completed [facility] 00:00:00 [facility] Rho (d) Immune 2018-06-11 Completed [facility] 00:00:00 [facility] HPV9 2018-06-11 Completed [facility] 00:00:00 [facility] Rho (d) Immune 2018-06-11 Completed [facility] 00:00:00 [facility] HPV9 2018-06-11 Completed [facility] 00:00:00 [facility] Rho (d) Immune 2018-06-11 Completed [facility] 00:00:00 [facility] Tdap 2018-04-18 Completed [facility] 00:00:00 [facility] Tdap 2018-04-18 Completed [facility] 00:00:00 [facility] Tdap 2018-04-18 Completed [facility] of 00:00:00 [facility] Tdap 2018-04-18 Completed [facility] 00:00:00 [facility] Tdap 2018-04-18 Completed [facility] of 00:00:00 [facility] Tdap 2018-04-18 Completed [facility] 00:00:00 [facility] Tdap 2018-04-18 Completed [facility] 00:00:00 [facility] Tdap 2018-04-18 Completed [facility] 00:00:00 [facility] Tdap 2018-04-18 Completed [facility] 00:00:00 [facility] Tdap 2018-04-18 Completed [facility] of 00:00:00 [facility] Tdap 2018-04-18 Completed [facility] of 00:00:00 [facility] Tdap 2018-04-18 Completed [facility] 00:00:00 [facility] TDAP 2018-04-18 Completed [facility] 00:00:00 [facility] TDAP 2018-04-18 Completed [facility] of 00:00:00 [facility] TDAP 2018-04-18 Completed [facility] of 00:00:00 [facility] TDAP 2018-04-18 Completed [facility] 00:00:00 [facility] TDAP 2018-04-18 Completed [facility] 00:00:00 [facility] TDAP 2018-04-18 Completed [facility] of 00:00:00 [facility] TDAP 2018-04-18 Completed [facility] 00:00:00 [facility] TDAP 2018-04-18 Completed [facility] 00:00:00 [facility] TDAP 2018-04-18 Completed [facility] 00:00:00 [facility] TDAP 2018-04-18 Completed [facility] 00:00:00 [facility] TDAP 2018-04-18 Completed [facility] 00:00:00 [facility] TDAP 2018-04-18 Completed [facility] 00:00:00 [facility] TDAP 2018-04-18 Completed [facility] 00:00:00 [facility] TDAP 2018-04-18 Completed [facility] 00:00:00 [facility] TDAP 2018-04-18 Completed [facility] 00:00:00 [facility] TDAP 2018-04-18 Completed [facility] 00:00:00 [facility] TDAP 2018-04-18 Completed [facility] 00:00:00 [facility] TDAP 2018-04-18 Completed [facility] 00:00:00 [facility] TDAP 2018-04-18 Completed [facility] 00:00:00 [facility] TDAP 2018-04-18 Completed [facility] 00:00:00 [facility] TDAP 2018-04-18 Completed [facility] 00:00:00 [facility] TDAP 2018-04-18 Completed [facility] 00:00:00 [facility] TDAP 2018-04-18 Completed [facility] 00:00:00 [facility] TDAP 2018-04-18 Completed [facility] 00:00:00 [facility] TDAP 2018-04-18 Completed [facility] 00:00:00 [facility] TDAP 2018-04-18 Completed [facility] 00:00:00 [facility] TDAP 2018-04-18 Completed [facility] 00:00:00 [facility] TDAP 2018-04-18 Completed [facility] 00:00:00 [facility] TDAP 2018-04-18 Completed [facility] 00:00:00 [facility] TDAP 2018-04-18 Completed [facility] 00:00:00 [facility] TDAP 2018-04-18 Completed [facility] 00:00:00 [facility] TDAP 2018-04-18 Completed [facility] 00:00:00 [facility] TDAP 2018-04-18 Completed [facility] 00:00:00 [facility] TDAP 2018-04-18 Completed [facility] 00:00:00 [facility] TDAP 2018-04-18 Completed [facility] 00:00:00 [facility] TDAP 2018-04-18 Completed [facility] 00:00:00 [facility] TDAP 2018-04-18 Completed [facility] 00:00:00 [facility] TDAP 2018-04-18 Completed [facility] 00:00:00 [facility] TDAP 2018-04-18 Completed [facility] 00:00:00 [facility] TDAP 2018-04-18 Completed [facility] 00:00:00 [facility] TDAP 2018-04-18 Completed [facility] 00:00:00 [facility] TDAP 2018-04-18 Completed [facility] 00:00:00 [facility] TDAP 2018-04-18 Completed [facility] 00:00:00 [facility] TDAP 2018-04-18 Completed [facility] 00:00:00 [facility] TDAP 2018-04-18 Completed [facility] 00:00:00 [facility] TDAP 2018-04-18 Completed [facility] 00:00:00 [facility] TDAP 2018-04-18 Completed [facility] 00:00:00 [facility] TDAP 2018-04-18 Completed [facility] 00:00:00 [facility] TDAP 2018-04-18 Completed [facility] 00:00:00 [facility] TDAP 2018-04-18 Completed [facility] 00:00:00 [facility] TDAP 2018-04-18 Completed [facility] 00:00:00 [facility] TDAP 2018-04-18 Completed [facility] 00:00:00 [facility] TDAP 2018-04-18 Completed [facility] 00:00:00 [facility] TDAP 2018-04-18 Completed [facility] 00:00:00 [facility] TDAP 2018-04-18 Completed [facility] 00:00:00 [facility] TDAP 2018-04-18 Completed [facility] 00:00:00 [facility] TDAP 2018-04-18 Completed [facility] 00:00:00 [facility] TDAP 2018-04-18 Completed [facility] 00:00:00 [facility] TDAP 2018-04-18 Completed [facility] 00:00:00 [facility] TDAP 2018-04-18 Completed [facility] 00:00:00 [facility] TDAP 2018-04-18 Completed [facility] 00:00:00 [facility] TDAP 2018-04-18 Completed [facility] 00:00:00 [facility] TDAP 2018-04-18 Completed [facility] 00:00:00 [facility] TDAP 2018-04-18 Completed [facility] 00:00:00 [facility] TDAP 2018-04-18 Completed [facility] 00:00:00 [facility] TDAP 2018-04-18 Completed [facility] 00:00:00 [facility] TDAP 2018-04-18 Completed [facility] 00:00:00 [facility] TDAP 2018-04-18 Completed [facility] 00:00:00 [facility] TDAP 2018-04-18 Completed [facility] of 00:00:00 [facility] TDAP 2018-04-18 Completed [facility] 00:00:00 [facility] TDAP 2018-04-18 Completed [facility] 00:00:00 [facility] TDAP 2018-04-18 Completed [facility] 00:00:00 [facility] TDAP 2018-04-18 Completed [facility] 00:00:00 [facility] TDAP 2018-04-18 Completed [facility] 00:00:00 [facility] TDAP 2018-04-18 Completed [facility] 00:00:00 [facility] TDAP 2018-04-18 Completed [facility] 00:00:00 [facility] TDAP 2018-04-18 Completed [facility] 00:00:00 [facility] TDAP 2018-04-18 Completed [facility] 00:00:00 [facility] TDAP 2018-04-18 Completed [facility] 00:00:00 [facility] TDAP 2018-04-18 Completed [facility] 00:00:00 [facility] TDAP 2018-04-18 Completed [facility] 00:00:00 [facility] TDAP 2018-04-18 Completed [facility] 00:00:00 [facility] Tdap 2018-04-18 Completed [facility] 00:00:00 [facility] Tdap 2018-04-18 Completed [facility] 00:00:00 [facility] Tdap 2018-04-18 Completed [facility] 00:00:00 [facility] Tdap 2018-04-18 Completed [facility] 00:00:00 [facility] Tdap 2018-04-18 Completed [facility] 00:00:00 [facility] Tdap 2018-04-18 Completed [facility] of 00:00:00 [facility] Tdap 2018-04-18 Completed [facility] 00:00:00 [facility] Tdap 2018-04-18 Completed [facility] 00:00:00 [facility] Tdap 2018-04-18 Completed [facility] 00:00:00 [facility] Tdap 2018-04-18 Completed [facility] 00:00:00 [facility] Tdap 2018-04-18 Completed [facility] 00:00:00 [facility] Tdap 2018-04-18 Completed [facility] 00:00:00 [facility] Tdap 2018-04-18 Completed [facility] 00:00:00 [facility] Tdap 2018-04-18 Completed [facility] 00:00:00 [facility] Tdap 2018-04-18 Completed [facility] of 00:00:00 [facility] Tdap 2018-04-18 Completed [facility] of 00:00:00 [facility] Tdap 2018-04-18 Completed [facility] of 00:00:00 [facility] Tdap 2018-04-18 Completed [facility] of 00:00:00 [facility] Vital Signs Vital Name Observation Time Observation Value Comments Source Systolic blood 2022-12-23 06:00:00 115 mm[Hg] Univer sity of pressure [facility] Diastolic blood 2022-12-23 06:00:00 77 mm[Hg] Unive rsity of [facility] Heart rate 2022-12-23 06:00:00 64 /min [facility] Respiratory rate 2022-12-23 06:00:00 16 /min [facility] Oxygen saturation in 2022-12-23 06:00:00 100 /min [facility] Arterial blood by [facility] Pulse oximetry Branch Body temperature 2022-12-23 05:20:00 36.33 Elida [facility] Body height 2022-12-23 05:20:00 167.6 cm [facility] Body weight 2022-12-23 05:20:00 80.876 kg [facility] BMI 2022-12-23 05:20:00 28.78 kg/m2 [facility] Systolic blood 2022-04-02 19:43:00 112 mm[Hg] Univer sity of pressure [facility] Diastolic blood 2022-04-02 19:43:00 73 mm[Hg] Unive rsity of pressure [facility] Heart rate 2022-04-02 19:43:00 78 /min [facility] Body temperature 2022-04-02 19:43:00 36.89 Elida [facility] Respiratory rate 2022-04-02 19:43:00 18 /min [facility] Body weight 2022-04-02 19:43:00 82.373 kg [facility] Systolic blood 2021-03-27 14:34:00 105 mm[Hg] Univer sity of pressure [facility] Diastolic blood 2021-03-27 14:34:00 68 mm[Hg] Unive rsity of pressure [facility] Heart rate 2021-03-27 14:34:00 130 /min [facility] Body temperature 2021-03-27 14:34:00 37.06 Elida [facility] Respiratory rate 2021-03-27 14:34:00 18 /min [facility] Body weight 2021-03-27 14:34:00 90.719 kg [facility] BMI 2021-03-27 14:34:00 32.28 kg/m2 [facility] Oxygen saturation in 2021-03-27 14:34:00 98 /min [facility] Arterial blood by [facility] P[facility] Systolic blood 2021-03-27 14:34:00 105 mm[Hg] Univer sity of pressure [facility] Diastolic blood 2021-03-27 14:34:00 68 mm[Hg] Unive rsity of pressure [facility] Heart rate 2021-03-27 14:34:00 130 /min [facility] Body temperature 2021-03-27 14:34:00 37.06 Elida [facility] Respiratory rate 2021-03-27 14:34:00 18 /min [facility] Body weight 2021-03-27 14:34:00 90.719 kg [facility] BMI 2021-03-27 14:34:00 32.28 kg/m2 [facility] Oxygen saturation in 2021-03-27 14:34:00 98 /min [facility] by [facility] Systolic blood 2021-03-25 21:06:00 112 mm[Hg] Univer sity of pressure [facility] Diastolic blood 2021-03-25 21:06:00 65 [...] 2021-03-25 21:06:00 31.67 kg/m2 [facility] Systolic blood 2021-03-25 21:06:00 112 [...] 2021-03-16 04:35:00 16 /min [facility] Oxygen saturation in 2021-03-16 04:35:00 98 /min [facility] of Arterial blood by [facility] P[facility] oxim[facility] Body height 2021-03-16 03:51:00 167.6 cm [facility] Body weight 2021-03-16 03:51:00 86.183 kg [facility] BMI 2021-03-16 03:51:00 30.67 kg/m2 [facility] Systolic blood 2021-03-16 04:35:00 113 mm[Hg] Univer sity of pressure [facility] Diastolic blood 2021-03-16 04:35:00 58 mm[Hg] Unive rsity of pressure [facility] Heart rate 2021-03-16 04:35:00 93 /min [facility] Body temperature 2021-03-16 04:35:00 37.17 Elida [facility] Respiratory rate 2021-03-16 04:35:00 16 /min [facility] Oxygen saturation in 2021-03-16 04:35:00 98 /min [facility] of Arterial blood by [facility] Pulse oximetry Branch Body height 2021-03-16 03:51:00 167.6 cm [facility] Body weight 2021-03-16 03:51:00 86.183 kg [facility] BMI 2021-03-16 03:51:00 30.67 kg/m2 [facility] Systolic blood 2021-03-04 18:24:00 117 mm[Hg] Univer sity of pressure [facility] Diastolic blood 2021-03-04 18:24:00 73 mm[Hg] Unive rsity of pressure [facility] Heart rate 2021-03-04 18:24:00 99 /min [facility] Body temperature 2021-03-04 18:24:00 36.72 Elida [facility] Respiratory rate 2021-03-04 18:24:00 16 /min [facility] Body height 2021-03-04 18:24:00 167.6 cm [facility] Body weight 2021-03-04 18:24:00 88.111 kg [facility] BMI 2021-03-04 18:24:00 31.35 kg/m2 [facility] Systolic blood 2021-03-04 18:24:00 117 mm[Hg] Univer sity of pressure [facility] Diastolic blood 2021-03-04 18:24:00 73 mm[Hg] Unive rsity of pressure [facility] Heart rate 2021-03-04 18:24:00 99 /min [facility] Body temperature 2021-03-04 18:24:00 36.72 Elida [facility] Respiratory rate 2021-03-04 18:24:00 16 /min [facility] Body height 2021-03-04 18:24:00 167.6 cm [facility] Body weight 2021-03-04 18:24:00 88.111 kg [facility] BMI 2021-03-04 18:24:00 31.35 kg/m2 [facility] Systolic blood 2021-02-18 18:54:00 118 mm[Hg] Univer sity of pressure [facility] Diastolic blood 2021-02-18 18:54:00 72 mm[Hg] Unive rsity of pressure [facility] Heart rate 2021-02-18 18:54:00 86 /min [facility] Body temperature 2021-02-18 18:54:00 36.44 Elida [facility] Respiratory rate 2021-02-18 18:54:00 16 /min [facility] Body height 2021-02-18 18:54:00 167.6 [...] 2021-02-18 18:54:00 36.44 Elida [facility] Respiratory rate 2021-02-18 18:54:00 16 /min [facility] Body height 2021-02-18 18:54:00 167.6 cm [facility] Body weight 2021-02-18 18:54:00 88.905 kg [facility] BMI 2021-02-18 18:54:00 31.64 kg/m2 [facility] Systolic blood 2021-02-11 18:38:00 105 mm[Hg] Univer sity of pressure [facility] Diastolic blood 2021-02-11 18:38:00 61 mm[Hg] Unive rsity of pressure [facility] Heart rate 2021-02-11 18:38:00 82 /min [facility] Body temperature 2021-02-11 18:38:00 36.67 Elida [facility] Respiratory rate 2021-02-11 18:38:00 16 /min [facility] Body height 2021-02-11 18:38:00 167.6 cm [facility] Body weight 2021-02-11 18:38:00 89.903 kg [facility] BMI 2021-02-11 18:38:00 31.99 kg/m2 [facility] Systolic blood 2021-02-04 18:18:00 110 mm[Hg] Univer sity of pressure [facility] Diastolic blood 2021-02-04 18:18:00 61 mm[Hg] Unive rsity of pressure [facility] Heart rate 2021-02-04 18:18:00 85 /min [facility] Body temperature 2021-02-04 18:18:00 37.39 Elida [facility] Respiratory rate 2021-02-04 18:18:00 16 /min [facility] Body height 2021-02-04 18:18:00 167.6 cm [facility] Body weight 2021-02-04 18:18:00 90.447 kg [facility] BMI 2021-02-04 18:18:00 32.18 kg/m2 [facility] Systolic blood 2021-01-28 18:26:00 115 [...] 2021-01-28 18:26:00 89.529 kg [facility] BMI 2021-01-28 18:26:00 31.86 kg/m2 [facility] Systolic blood 2021-01-22 18:50:00 110 mm[Hg] Univer sity of pressure [facility] Diastolic blood 2021-01-22 18:50:00 63 mm[Hg] Unive rsity of pressure [facility] Heart rate 2021-01-22 18:50:00 74 /min [facility] Body temperature 2021-01-22 18:50:00 37.28 Elida [facility] Respiratory rate 2021-01-22 18:50:00 16 /min [facility] Body height 2021-01-22 18:50:00 167.6 [...] 2021-01-15 18:58:00 16 /min [facility] Body height 2021-01-15 18:58:00 167.6 cm [facility] Body weight 2021-01-15 18:58:00 89.177 kg [facility] BMI 2021-01-15 18:58:00 31.73 kg/m2 [facility] Systolic blood 2021-01-07 19:01:00 97 mm[Hg] Univer sity of pressure [facility] Diastolic blood 2021-01-07 19:01:00 67 mm[Hg] Unive rsity of pressure [facility] Heart rate 2021-01-07 19:01:00 83 /min [facility] Body temperature 2021-01-07 19:01:00 36.83 Elida [facility] Respiratory rate 2021-01-07 19:01:00 16 /min [facility] Body height 2021-01-07 19:01:00 167.6 cm [facility] Body weight 2021-01-07 19:01:00 87.771 kg [facility] BMI 2021-01-07 19:01:00 31.23 kg/m2 [facility] Systolic blood 2021-01-01 18:17:00 111 mm[Hg] Univer sity of pressure [facility] Diastolic blood 2021-01-01 18:17:00 55 mm[Hg] Unive rsity of pressure [facility] Heart rate 2021-01-01 18:17:00 103 /min [facility] Body temperature 2021-01-01 18:17:00 36.67 Elida [facility] Respiratory rate 2021-01-01 18:17:00 24 /min [facility] Body height 2021-01-01 18:17:00 167.6 cm [facility] Body weight 2021-01-01 18:17:00 88.225 kg [facility] BMI 2021-01-01 18:17:00 31.39 kg/m2 [facility] Systolic blood 2020-12-24 19:41:00 124 mm[Hg] Univer sity of pressure [facility] Diastolic blood 2020-12-24 19:41:00 77 mm[Hg] Unive rsity of pressure [facility] Heart rate 2020-12-24 19:41:00 93 /min [facility] Body temperature 2020-12-24 19:41:00 36.67 Elida [facility] Respiratory rate 2020-12-24 19:41:00 16 /min [facility] Body height 2020-12-24 19:41:00 167.6 cm [facility] Body weight 2020-12-24 19:41:00 89.268 kg [facility] BMI 2020-12-24 19:41:00 31.76 kg/m2 [facility] [facility] Systolic blood 2020-12-19 00:29:00 105 mm[Hg] [facility] Diastolic blood 2020-12-19 00:29:00 42 mm[Hg] [facility] Heart rate 2020-12-19 00:29:00 65 /min [facility] Body temperature 2020-12-19 00:29:00 36.67 Elida [facility] Respiratory rate 2020-12-19 00:29:00 18 /min [facility] Body height 2020-12-19 00:29:00 167.6 cm [facility] Body weight 2020-12-19 00:29:00 88.905 kg [facility] BMI 2020-12-19 00:29:00 31.64 kg/m2 [facility] Systolic blood 2020-12-17 19:38:00 119 mm[Hg] [facility] Diastolic blood 2020-12-17 19:38:00 64 mm[Hg] [facility] Heart rate 2020-12-17 19:38:00 79 /min [facility] Body temperature 2020-12-17 19:38:00 36.56 Elida [facility] Respiratory rate 2020-12-17 19:38:00 16 /min [facility] Body height 2020-12-17 19:38:00 167.6 cm [facility] Body weight 2020-12-17 19:38:00 89.449 kg [facility] BMI 2020-12-17 19:38:00 31.83 kg/m2 [facility] Systolic blood 2020-12-10 18:51:00 107 mm[Hg] [facility] Diastolic blood 2020-12-10 18:51:00 63 mm[Hg] [facility] Heart rate 2020-12-10 18:51:00 62 /min [facility] Body temperature 2020-12-10 18:51:00 36.78 Elida [facility] Respiratory rate 2020-12-10 18:51:00 16 /min [facility] Body height 2020-12-10 18:51:00 167.6 cm [facility] Body weight 2020-12-10 18:51:00 87.232 kg [facility] BMI 2020-12-10 18:51:00 31.04 kg/m2 [facility] Systolic blood 2020-12-03 16:08:00 108 mm[Hg] [facility] Diastolic blood 2020-12-03 16:08:00 63 mm[Hg] [facility] Heart rate 2020-12-03 16:08:00 90 /min [facility] Body temperature 2020-12-03 16:08:00 36.61 Elida [facility] Respiratory rate 2020-12-03 16:08:00 18 /min [facility] Body height 2020-12-03 16:08:00 167.6 cm [facility] Body weight 2020-12-03 16:08:00 88.179 kg [facility] BMI 2020-12-03 16:08:00 31.38 kg/m2 [facility] Systolic blood 2020-11-26 18:13:00 108 [...] 2020-11-12 18:58:00 167.6 cm [facility] Body weight 2020-11-12 18:58:00 88.622 kg [facility] BMI 2020-11-12 18:58:00 31.53 kg/m2 [facility] Systolic blood 2020-10-15 20:07:00 109 mm[Hg] [facility] Diastolic blood 2020-10-15 20:07:00 70 mm[Hg] [facility] Heart rate 2020-10-15 20:07:00 74 /min [facility] Body temperature 2020-10-15 20:07:00 36.72 Elida [facility] Respiratory rate 2020-10-15 20:07:00 16 /min [facility] Body height 2020-10-15 20:07:00 167.6 cm [facility] Body weight 2020-10-15 20:07:00 84.823 kg [facility] BMI 2020-10-15 20:07:00 30.18 kg/m2 [facility] Systolic blood 2020-09-17 21:57:00 103 mm[Hg] [facility] Diastolic blood 2020-09-17 21:57:00 62 mm[Hg] [facility] Heart rate 2020-09-17 21:57:00 73 /min [facility] Body temperature 2020-09-17 21:57:00 37.11 Elida [facility] Respiratory rate 2020-09-17 21:57:00 16 /min [facility] Body height 2020-09-17 21:57:00 167.6 cm [facility] Body weight 2020-09-17 21:57:00 85.531 kg [facility] BMI 2020-09-17 21:57:00 30.43 kg/m2 [facility] Systolic blood 2020-08-20 19:03:00 119 mm[Hg] [facility] Diastolic blood 2020-08-20 19:03:00 82 mm[Hg] [facility] Heart rate 2020-08-20 19:03:00 79 /min [facility] Body temperature 2020-08-20 19:03:00 36.72 Elida [facility] Respiratory rate 2020-08-20 19:03:00 16 /min [facility] Body height 2020-08-20 19:03:00 167.6 cm [facility] Body weight 2020-08-20 19:03:00 87.204 kg [facility] BMI 2020-08-20 19:03:00 31.03 kg/m2 [facility] Systolic blood 2020-06-04 20:48:00 124 mm[Hg] [facility] Diastolic blood 2020-06-04 20:48:00 62 mm[Hg] [facility] Heart rate 2020-06-04 20:48:00 90 /min [facility] Body temperature 2020-06-04 20:48:00 36.17 Elida [facility] Respiratory rate 2020-06-04 20:48:00 16 /min [facility] Body height 2020-06-04 20:48:00 167.6 cm [facility] Body weight 2020-06-04 20:48:00 85.276 kg [facility] BMI 2020-06-04 20:48:00 30.34 kg/m2 [facility] Systolic blood 2020-04-01 21:05:00 130 mm[Hg] [facility] Diastolic blood 2020-04-01 21:05:00 74 mm[Hg] [facility] Heart rate 2020-04-01 21:05:00 95 /min [facility] Body temperature 2020-04-01 21:05:00 37.5 Elida [facility] Respiratory rate 2020-04-01 21:05:00 16 /min [facility] Body height 2020-04-01 21:05:00 167.6 cm [facility] Body weight 2020-04-01 21:05:00 86.75 kg [facility] BMI 2020-04-01 21:05:00 30.87 kg/m2 [facility] Systolic blood 2020-03-22 05:00:00 105 mm[Hg] [facility] Diastolic blood 2020-03-22 05:00:00 72 mm[Hg] [facility] Heart rate 2020-03-22 05:00:00 67 /min [facility] Respiratory rate 2020-03-22 05:00:00 18 /min [facility] Oxygen saturation in 2020-03-22 04:00:00 99 /min [facility] Body temperature 2020-03-22 03:49:00 37 Elida [facility] Body height 2020-03-22 03:49:00 167.6 cm [facility] Body weight 2020-03-22 03:49:00 86.183 kg [facility] BMI 2020-03-22 03:49:00 30.67 kg/m2 [facility] Systolic blood 2020-02-26 23:57:00 110 mm[Hg] [facility] Diastolic blood 2020-02-26 23:57:00 78 mm[Hg] [facility] Heart rate 2020-02-26 23:57:00 87 /min [facility] Respiratory rate 2020-02-26 23:57:00 18 /min [facility] Oxygen saturation in 2020-02-26 23:57:00 100 /min [facility] Body temperature 2020-02-26 21:35:00 37 Elida [facility] Body weight 2020-02-26 21:35:00 86.183 kg [facility] Systolic blood 2019-10-05 21:05:00 129 mm[Hg] [facility] Diastolic blood 2019-10-05 21:05:00 57 mm[Hg] [facility] Heart rate 2019-10-05 21:05:00 100 /min [facility] Body temperature 2019-10-05 21:05:00 36.56 Elida [facility] Respiratory rate 2019-10-05 21:05:00 16 /min [facility] Body height 2019-10-05 21:05:00 167.6 cm [facility] Body weight 2019-10-05 21:05:00 86.694 kg [facility] BMI 2019-10-05 21:05:00 30.85 kg/m2 [facility] Systolic blood 2019-09-20 20:30:00 118 mm[Hg] [facility] Diastolic blood 2019-09-20 20:30:00 65 mm[Hg] [facility] Heart rate 2019-09-20 20:30:00 87 /min [facility] Body temperature 2019-09-20 20:30:00 36.28 Elida [facility] Respiratory rate 2019-09-20 20:30:00 18 /min [facility] Body height 2019-09-20 20:30:00 167.6 cm [facility] Body weight 2019-09-20 20:30:00 87.176 kg [facility] BMI 2019-09-20 20:30:00 31.02 kg/m2 [facility] Systolic blood 2019-09-18 20:23:00 123 mm[Hg] [facility] Diastolic blood 2019-09-18 20:23:00 61 mm[Hg] [facility] Heart rate 2019-09-18 20:23:00 73 /min [facility] Body temperature 2019-09-18 20:23:00 36.61 Elida [facility] Respiratory rate 2019-09-18 20:23:00 16 /min [facility] Body height 2019-09-18 20:23:00 167.6 cm [facility] Body weight 2019-09-18 20:23:00 86.24 kg [facility] BMI 2019-09-18 20:23:00 30.69 kg/m2 [facility] Systolic blood 2019-04-24 15:56:00 99 mm[Hg] [facility] Diastolic blood 2019-04-24 15:56:00 61 mm[Hg] [facility] Heart rate 2019-04-24 15:56:00 70 /min [facility] Body temperature 2019-04-24 15:56:00 36.72 Elida [facility] Respiratory rate 2019-04-24 15:56:00 16 /min [facility] Body weight 2019-04-24 15:56:00 84 kg [facility] BMI 2019-04-24 15:56:00 29.89 kg/m2 [facility] Systolic blood 2019-04-17 18:14:00 117 mm[Hg] [facility] Diastolic blood 2019-04-17 18:14:00 61 mm[Hg] [facility] Heart rate 2019-04-17 18:14:00 74 /min [facility] Body temperature 2019-04-17 18:14:00 36.56 Elida [facility] Respiratory rate 2019-04-17 18:14:00 16 /min [facility] Body height 2019-04-17 18:14:00 167.6 cm [facility] Body weight 2019-04-17 18:14:00 83.632 kg [facility] BMI 2019-04-17 18:14:00 29.76 kg/m2 [facility] Heart rate 2019-04-19 01:15:00 92 /min [facility] Oxygen saturation in 2019-04-19 01:15:00 99 /min [facility] Arterial blood by [facility] Pulse oximetry Branch Systolic blood 2019-04-19 00:43:00 112 mm[Hg] [facility] Diastolic blood 2019-04-19 00:43:00 66 mm[Hg] [facility] Body temperature 2019-04-19 00:43:00 36.94 Elida [facility] Respiratory rate 2019-04-19 00:43:00 18 /min [facility] Body height 2019-04-19 00:43:00 167.6 cm [facility] Body weight 2019-04-19 00:43:00 83.462 kg [facility] BMI 2019-04-19 00:43:00 29.70 kg/m2 [facility] Systolic blood 2019-04-14 06:50:00 116 mm[Hg] [facility] Diastolic blood 2019-04-14 06:50:00 65 mm[Hg] [facility] Heart rate 2019-04-14 06:50:00 90 /min [facility] Body temperature 2019-04-14 06:50:00 36.61 Elida [facility] Respiratory rate 2019-04-14 06:50:00 18 /min [facility] Body height 2019-04-14 06:50:00 167.6 cm [facility] Body weight 2019-04-14 06:50:00 83.008 kg [facility] BMI 2019-04-14 06:50:00 29.54 kg/m2 [facility] Oxygen saturation in 2019-04-14 06:50:00 100 /min [facility] Arterial blood by [facility] Pulse oximetry Branch Systolic blood 2019-04-10 19:21:00 114 mm[Hg] [facility] Diastolic blood 2019-04-10 19:21:00 57 mm[Hg] [facility] Heart rate 2019-04-10 19:21:00 93 /min [facility] Body temperature 2019-04-10 19:21:00 36.78 Elida [facility] Respiratory rate 2019-04-10 19:21:00 16 /min [facility] Body height 2019-04-10 19:21:00 167.6 cm [facility] Body weight 2019-04-10 19:21:00 83.178 kg [facility] BMI 2019-04-10 19:21:00 29.60 kg/m2 [facility] Systolic blood 2019-04-03 16:55:00 117 mm[Hg] [facility] Diastolic blood 2019-04-03 16:55:00 65 mm[Hg] [facility] Heart rate 2019-04-03 16:55:00 79 /min [facility] Body temperature 2019-04-03 16:55:00 36.56 Elida [facility] Respiratory rate 2019-04-03 16:55:00 16 /min [facility] Body height 2019-04-03 16:55:00 167.6 cm [facility] Body weight 2019-04-03 16:55:00 83.178 kg [facility] BMI 2019-04-03 16:55:00 29.60 kg/m2 [facility] Systolic blood 2019-03-29 18:46:00 131 mm[Hg] [facility] Diastolic blood 2019-03-29 18:46:00 77 mm[Hg] [facility] Heart rate 2019-03-29 18:46:00 94 /min [facility] Body temperature 2019-03-29 18:46:00 37.11 Elida [facility] Respiratory rate 2019-03-29 18:46:00 16 /min [facility] Body height 2019-03-29 18:46:00 167.6 cm [facility] Body weight 2019-03-29 18:46:00 82.781 kg [facility] BMI 2019-03-29 18:46:00 29.46 kg/m2 [facility] Systolic blood 2019-03-27 15:18:00 109 mm[Hg] [facility] Diastolic blood 2019-03-27 15:18:00 56 mm[Hg] [facility] Heart rate 2019-03-27 15:18:00 83 /min [facility] Body temperature 2019-03-27 15:18:00 36.28 Elida [facility] Respiratory rate 2019-03-27 15:18:00 16 /min [facility] Body height 2019-03-27 15:18:00 167.6 cm [facility] Body weight 2019-03-27 15:18:00 83.122 kg [facility] BMI 2019-03-27 15:18:00 29.58 kg/m2 [facility] Systolic blood 2019-03-20 15:42:00 116 mm[Hg] [facility] Diastolic blood 2019-03-20 15:42:00 55 mm[Hg] [facility] Heart rate 2019-03-20 15:42:00 76 /min [facility] Body temperature 2019-03-20 15:42:00 36.11 Elida [facility] Respiratory rate 2019-03-20 15:42:00 16 /min [facility] Body height 2019-03-20 15:42:00 167.6 cm [facility] Body weight 2019-03-20 15:42:00 83.235 kg [facility] BMI 2019-03-20 15:42:00 29.62 kg/m2 [facility] Systolic blood 2019-03-20 15:12:00 116 mm[Hg] [facility] Diastolic blood 2019-03-20 15:12:00 55 mm[Hg] [facility] Heart rate 2019-03-20 15:12:00 76 /min [facility] Body temperature 2019-03-20 15:12:00 36.11 Elida [facility] Respiratory rate 2019-03-20 15:12:00 16 /min [facility] Body height 2019-03-20 15:12:00 167.6 cm [facility] Body weight 2019-03-20 15:12:00 83.235 kg [facility] BMI 2019-03-20 15:12:00 29.62 kg/m2 [facility] Systolic blood 2019-03-15 14:57:00 112 mm[Hg] [facility] Diastolic blood 2019-03-15 14:57:00 59 mm[Hg] [facility] Heart rate 2019-03-15 14:57:00 66 /min [facility] Body temperature 2019-03-15 14:57:00 36.39 Elida [facility] Respiratory rate 2019-03-15 14:57:00 18 /min [facility] Body height 2019-03-15 14:57:00 167.6 cm [facility] Body weight 2019-03-15 14:57:00 84.482 kg [facility] BMI 2019-03-15 14:57:00 30.06 kg/m2 [facility] Systolic blood 2019-03-13 14:51:00 122 mm[Hg] [facility] Diastolic blood 2019-03-13 14:51:00 65 mm[Hg] [facility] Heart rate 2019-03-13 14:51:00 90 /min [facility] Body temperature 2019-03-13 14:51:00 36.39 Elida [facility] Respiratory rate 2019-03-13 14:51:00 16 /min [facility] Body height 2019-03-13 14:51:00 167.6 cm [facility] Body weight 2019-03-13 14:51:00 83.519 kg [facility] BMI 2019-03-13 14:51:00 29.72 kg/m2 [facility] Systolic blood 2019-03-06 14:12:00 112 mm[Hg] [facility] Diastolic blood 2019-03-06 14:12:00 52 mm[Hg] [facility] Heart rate 2019-03-06 14:12:00 83 /min [facility] Body temperature 2019-03-06 14:12:00 36.72 Elida [facility] Respiratory rate 2019-03-06 14:12:00 16 /min [facility] Body height 2019-03-06 14:12:00 167.6 cm [facility] Body weight 2019-03-06 14:12:00 83.632 kg [facility] BMI 2019-03-06 14:12:00 29.76 kg/m2 [facility] Systolic blood 2019-02-20 15:54:00 117 mm[Hg] [facility] Diastolic blood 2019-02-20 15:54:00 76 mm[Hg] [facility] pressure [facility] Heart rate 2019-02-20 15:54:00 83 /min [facility] Body temperature 2019-02-20 15:54:00 36.39 Elida [facility] Respiratory rate 2019-02-20 15:54:00 16 /min [facility] height 2019-02-20 15:54:00 167.6 cm [facility] Body weight 2019-02-20 15:54:00 81.364 kg [facility] BMI 2019-02-20 15:54:00 28.95 kg/m2 [facility] Procedures Procedure Date / Time Performing Clinician Source Performed POCT TEST 2022-12-23 05:31:00 Samir Baird [facility] LIPASE 2022-12-23 05:30:00 Samir Baird [facility] COMP. METABOLIC PANEL 2022-12-23 05:30:00 Samir Baird [facility] ([id number]) [facility] CBC WITH DIFF 2022-12-23 05:30:00 Samir Baird [facility] URINALYSIS 2022-12-23 05:30:00 Samir Baird [facility] CONSENT/REFUSAL FOR 2022-12-23 05:12:14 Doctor Maritza, [facility] DIAGNOSIS AND TREATMENT [facility] POCT TEST 2022-04-02 19:44:00 Molina Pavon [facility] ASSIGNMENT OF BENEFITS 2022-04-02 19:12:09 [facility] 2021-03-27 14:24:33 Doctor Maritza, [facility] DIAGNOSIS AND TREATMENT [facility] WOUND CULTURE 2021-03-25 22:12:00 Marilu Doran [facility] CBC WITH DIFF 2021-03-25 21:07:00 Marilu Doran [facility] GROUP B STREPTOCOCCUS BY 2021-03-25 21:07:[address] [facility] PCR [facility] SARS-COV-2 IGG 2021-03-25 21:07:00 Marilu Doran [facility] LAB ONLY COVID 2021-03-25 21:07:00 Marilu Doran [facility] INTERPRETATION [facility] NOTICE OF PRIVACY 2021-03-16 02:55:00 Doctor Unassigned, [facility] 2021-03-16 02:54:44 Doctor Unassigned, [facility] DIAGNOSIS AND TREATMENT [place] [facility] POCT URINALYSIS 2021-03-04 18:26:00 Molina Pavon [facility] POCT URINALYSIS 2021-02-18 18:55:00 Molina Pavon [facility] POCT URINALYSIS 2021-02-04 18:19:00 Molina Pavon [facility] HB ABO GROUPING 2021-01-28 18:45:00 Molina Pavon [facility] TDAP VACCINE, >11 YRS, IM 2021-01-28 18:41:00 Molina Pavon [facility] POCT URINALYSIS 2021-01-28 18:28:00 Molina Pavon [facility] HIV 1/2 AG-AB WITH REFLEX 2021-01-28 18:21:00 Molina Pavon [facility] GALV ONLY - SYPHILIS 2021-01-28 18:21:00 [facility] GLUCOSE 1 HOUR POST 2021-01-15 20:04:00 Molina Pavon [facility] CBC WITH DIFF 2021-01-15 20:04:00 Molina Pavon [facility] POCT URINALYSIS 2021-01-07 19:04:00 Molina Pavon [facility] CONSENT/REFUSAL FOR 2020-12-18 23:48:00 Doctor Unassigned, [facility] DIAGNOSIS AND TREATMENT [facility] POCT URINALYSIS 2020-12-10 19:37:00 Molina Pavon [facility] POCT URINALYSIS 2020-11-12 18:59:00 Molina Pavon [facility] POCT URINALYSIS 2020-10-15 20:09:00 Molina Pavon [facility] MEDICATION CORRESPONDENCE 2020-10-09 06:01:00 Doctor Unassigned, [facility] EXTERNAL PROVIDER RECORDS 2020-09-29 06:01:00 Doctor Unassigned, [facility] POCT URINALYSIS 2020-09-17 22:04:00 Molina Pavon [facility] GC & CHLAMYDIA AMPLIFIED 2020-08-20 20:23:00 Molina Pavon [facility] ASSAY [facility] GLUCOSE 1 HOUR POST 2020-08-20 20:06:00 Molina Pavon [facility] CBC WITH DIFF 2020-08-20 20:06:00 Molina Pavon [facility] RUBELLA SCREEN IGG 2020-08-20 20:06:00 Molina Pavon [facility] VZV ANTIBODY SCREEN 2020-08-20 20:06:00 Molina Pavon [facility] HEPATITIS B SURFACE 2020-08-20 20:06:00 Molina Pavon [facility] HB ABO GROUPING 2020-08-20 20:06:00 Molina Pavon [facility] HIV 1/2 AG-AB WITH REFLEX 2020-08-20 20:06:00 Molina Pavon [facility] GALV ONLY - SYPHILIS 2020-08-20 20:06:00 [facility]IGM [facility] SARS-COV-2 IGG 2020-08-20 20:06:00 Molina Pavon [facility] LAB ONLY COVID 2020-08-20 20:06:00 Molina Pavon [facility] INTERPRETATION [facility] POCT TEST 2020-08-20 18:57:00 Molina Pavon [facility] POCT URINALYSIS W/O 2020-08-20 18:57:00 Molina Pavon [facility] SPECIFIC GRAVITY [facility] FLU VACC ([id number]), 6+ 2020-06-04 20:53:58 Molina Pavon [facility] MONTHS, IM, QUAD [facility] [place] POCT TEST 2020-03-22 04:03:00 Lenin Samaniego [facility] COMP. METABOLIC PANEL 2020-03-22 04:02:00 Lenin Samaniego [facility] ([id number]) [facility] [place] CBC WITH DIFF 2020-03-22 04:02:00 Aden Lenin [facility] URINALYSIS 2020-03-22 04:02:00 Aden Lenin [place] o [facility] CONSENT/REFUSAL FOR 2020-03-22 03:39:54 Doctor Unassigned, [facility] DIAGNOSIS AND TREATMENT [place] US PELVIS COMPLETE WITH 2020-02-26 22:53:[address] [facility] TRANSVAGINAL [facility] COMP. METABOLIC PANEL 2020-02-26 22:12:00 Evangelist Bonner [facility] ([id number]) [facility] [place] CBC WITH DIFF 2020-02-26 22:12:00 Evangelist Bonner [facility] URINALYSIS 2020-02-26 22:12:00 Evangelist Bonner [facility] POCT TEST 2020-02-26 22:12:00 Evangelist Bonner [facility] ASSIGNMENT OF BENEFITS 2020-02-26 21:29:30 Doctor Unassigned, [facility] POCT TEST 2019-10-05 21:24:00 Molina Pavon [facility] DISCLOSURE AND CONSENT, 2019-10-05 06:01:00 Doctor Unassigned, U [facility] MEDICAL AND SURGICAL [facility] nc PROCEDURES POCT TEST 2019-09-20 20:34:00 Molina Pavon [facility] GARDASIL 9 (HPV 9V) 2019-09-18 21:05:38 Molina Pavon [facility] VACCINE [facility] ASSIGNMENT OF BENEFITS 2019-04-19 00:26:57 Doctor Unassigned, Un [facility] NOTICE OF PRIVACY 2019-04-19 00:26:18 Doctor Unassnora, [facility] CONSENT/REFUSAL FOR 2019-04-19 00:25:59 Doctor Maritza, [facility] DIAGNOSIS AND TREATMENT [facility] URINE CULTURE 2019-04-17 18:50:00 Molina Pavon [facility] ANTI-D R/O PANEL 2019-04-17 18:46:00 Molina Pavon [facility] WORKUP, BLOOD 2019-04-17 18:46:[address] [facility] POCT URINALYSIS 2019-04-17 18:15:00 Molina Pavon [facility] ASSIGNMENT OF BENEFITS 2019-04-14 06:35:28 Doctor Unassigned, Un [facility] NOTICE OF PRIVACY 2019-04-14 06:34:52 Doctor Maritza, [facility] GALV ONLY - SYPHILIS 2019-03-29 20:14:00 Marilu Doran [facility] IGG/IGM [facility] HIV 1/2 AG-AB WITH REFLEX 2019-03-29 19:53:00 Marilu Doran [facility] TDAP VACCINE, >11 YRS, IM 2019-03-29 19:23:41 Marilu Doran [facility] POCT URINALYSIS 2019-03-29 18:46:00 Molina Pavon [facility] POCT URINALYSIS 2019-03-15 14:59:00 Molina Pavon [facility] Encounters Start End Encounter Admission Attending Care Care Encounter Source Date/Time Date/Time Type Type Clinicians Facility Department ID 2021-06-08 Emergency [facility] [id number] Univers 16:54:59 ity of [facility] 2021-06-08 Emergency [facility] [id number] Univers 13:57:39 ity of [facility] 2021-06-07 Outpatient P [facility] ALONSO [id number] Univers 19:02:11 ity of [facility] 2021-06-07 Outpatient P [facility] ALONSO [id number] Univers 19:01:53 ity of [facility] 2021-06-05 Emergency [facility] [id number] Univers 12:38:55 ity of [facility] 2021-06-05 Emergency [facility] [id number] Univers 08:01:28 ity of [facility] 2023-01-14 2023-01-14 Outpatient R GILIKE [facility] [id number] Univers 10:45:00 10:45:00 ISE, ity [facility] 2022-12-24 2022-12-24 Outpatient ZBIGNIEW dAama[facility] [id number] [facility] 07:39:00 07:39:00 Renu 09 [facility] 2022-12-23 2022-12-23 Emergency X [facility] [id number] Univers 00:21:00 01:49:00 SAMIR ity of [facility] 2022-12-23 2022-12-23 Emergency [facility] 1.2.782.612 [id number] Univers 00:21:00 01:49:00 Samir VILLA 350.1.13.10 ity of [facility] 4.2.7.2.686 [facility] [id number] [facility] 084 Branch 2022-12-23 2022-12-23 Orders Doctor MORAN 1.2.840.114 [id number] Univers 00:00:00 00:00:00 Only Unassigned, JANNA 350.1.13.10 ity of [place] [facility] 4.2.7.2.686 Man [phone] [facility] 009 Branch 2022-04-08 2022-04-08 Outpatient R [facility] [id number] Univers 13:45:00 13:45:00 ity of [facility] 2022-04-02 2022-04-02 Nurse Visit, Daryn-Rmchp Nurse [facility] 1.2 .840.114 [id number] Univers 13:30:00 13:45:00 Visit Molina Pavon HEAD OF MUSIC 350.1.13. 10 ity [facility] 4.2.7.2.686 Man as MATERNAL [id number] [facility] ical & CHILD [address] [place] [address] 2022-04-02 2022-04-02 [facility] [id number] Univers 13:30:00 13:30:00 MOLINA caraballo o f [facility] 2022-04-02 2022-04-02 Orders Doctor LUISA 1.2.840.114 [id number] Univers 00:00:00 00:00:00 Only UnassJANNA melendez 350.1.13.10 ity [facility] 4.2.7.2.686 Man as [phone] [facility] 009 [place] 2021-05-28 2021-05-28 Outpatient R [facility] [id number] Univers 13:45:00 13:45:00 ity of [facility] 2021-05-19 2021-05-19 [facility] [id number] Univers 09:15:00 09:15:00 AMANDA ity of [facility] 2021-04-14 2021-04-14 Telephone Gonzalez MORAN 1.2.840.114 [id number] Univers 00:00:00 00:00:00 JANNA lyeva 350.1.13.10 it y of [facility] 4.2.7.2.686 [place] l [phone] [facility] 013 Branch 2021-04-07 2021-04-09 Inpatient P IVAN [facility] [id number] Univers 21:59:00 13:51:00 HERON ity [facility] 2021-04-07 2021-04-09 Hospital LUISA [place] 1.2.840.114 [id number] Univers 21:59:00 13:51:00 Encounter Heron Saba JANNA 350.1.13.10 ity [facility] 4.2.7.2.686 Man as [phone] [facility] 134 Branch 2021-04-09 2021-04-09 Outpatient [facility] [id number] Univers 13:00:00 13:00:00 MOLINA saba [facility] 2021-04-07 2021-04-08 Anesthesia Wyatt Cool 1.2.840 .114 [id number] Univers 22:51:00 06:50:00 Event Colby-Alessandro Blackwell 350 .[facility].13.10 [facility] 4.2.7.2.686 Man as [phone] [facility] 132 [place] 2021-04-01 2021-04-01 Outpatient R R [facility] [id number] Univers 08:45:00 08:45:00 MOLINA saba [facility] 2021-03-29 2021-03-29 Telephone [facility] 1.2.840.114 [id number] Univers 00:00:00 00:00:00 Molina Kearney HEAD OF MUSIC [facility].1.13.[facility] 4.2.7.2.686 Man as MATERNAL [id number] Med ical & CHILD [address] [place] [address] 2021-03-27 2021-03-27 [facility] 1.2.737.760 [id number] 09:34:00 10:19:00 Miah Villa 350.1.13.10 [place] 4.2.7.2.686 [place] [id number] [facility] 2021-03-27 2021-03-27 Emergency [facility] 1.2.563.571 [id number] Univers 09:34:00 10:19:00 Miah Villa 350.1.13.10 i ty of [place] 4.2.7.2.686 [place] [facility] [phone] [place] [id number] [place] 2021-03-27 2021-03-27 Orders Doctor MORAN 1.2.840.114 [id number] 00:00:00 00:00:00 Only Unassigned, JANNA 350.1.13.10 [place] 4.2.7.2.686 [id number] 009 2021-03-27 2021-03-27 Orders Doctor LUISA 1.2.840.114 [id number] Univers 00:00:00 00:00:00 Only Unassigned, JANNA 350.1.13.10 ity of [place] [facility] 4.2.7.2.686 Man as [id number] [address] 2021-03-25 2021-03-25 Routine Risk, Ibp-Ryayi-Pq/High [facility] 1. 2.840.114 [id number] Univers 15:32:35 16:37:00 Marilu Doran HEAD OF MUSIC 350.1.13.10 ity of Visit [facility] 4.2.7.2.686 Man as MATERNAL [phone] [facility] ical & CHILD [address] [place] [address] 2021-03-25 2021-03-25 Routine Risk, Kdz-Bpnet-Ec/High [facility] 1. 2.840.114 [id number] Univers 15:32:35 16:37:00 Marilu Doran HEAD OF MUSIC 350.1.13.10 ity of Visit [facility] 4.2.7.2.686 Man as MATERNAL [phone] [facility] ical & CHILD [address] [place] [address] 2021-03-25 2021-03-25 Outpatient R [facility] [id number] Univers 15:30:00 15:30:00 ity of [facility] 2021-03-18 2021-03-18 Outpatient [facility] [id number] Univers 13:30:00 13:30:00 MOLINA caraballo o f [facility] 2021-03-15 2021-03-16 Emergency [facility] 1.2.840.114 [id number] 22:55:00 00:07:00 Cholo Saba [place] 350.1.13.10 [place] 4.2.7.2.686 [place] [id number] 4 2021-03-15 2021-03-16 Emergency [facility] 1.2.840.114 [id number] Univers 22:55:00 00:07:00 Fanio Jayant [place] 350.1.13.10 ity of [place] 4.2.7.2.686 [facility] [place] [id number] [address] 2021-03-11 2021-03-11 Outpatient R [facility] [id number] Univers 13:30:00 13:30:00 ity [facility] 2021-03-04 2021-03-04 Routine Akinsipe, [facility] 1.2.685.314 [id number] 13:16:42 13:49:49 Molina C HEAD OF MUSIC 350.1.13.10 Visit REGIONAL 4.2.7.2.686 MATERNAL [id number] & CHILD [address] [place] [address] 2021-03-04 2021-03-04 Routine Akinsipe, [facility] 1.2.696.051 [id number] Univers 13:16:42 13:49:49 Molina C HEAD OF MUSIC 350.1.13.10 ity of Visit REGIONAL 4.2.7.2.686 Man as MATERNAL [id number] Med ical & CHILD [address] [place] [address] 2021-03-04 2021-03-04 [facility] [id number] Univers 13:15:00 13:15:00 MOLINA ity o f [facility] 2021-03-02 2021-03-02 Outpatient R [facility] [id number] Univers 14:30:00 14:30:00 ity [facility] 2021-02-25 2021-02-25 Outpatient R [facility] [id number] Univers 12:45:00 12:45:00 ity [facility] 2021-02-18 2021-02-18 Routine Akinsipe, [facility] 1.2.718.826 [id number] 13:28:35 14:29:08 Molina C HEAD OF MUSIC 350.1.13.10 Visit REGIONAL 4.2.7.2.686 MATERNAL [phone] & CHILD [address] [place] [address] 2021-02-18 2021-02-18 Routine Akinsipe, [facility] 1.2.119.731 [id number] Univers 13:28:35 14:29:08 Molina C HEAD OF MUSIC 350.1.13.10 ity of Visit REGIONAL 4.2.7.2.686 Man as MATERNAL [phone] [facility] & [address] 2021-02-18 2021-02-18 Out[facility] [id number] Univers 13:15:00 13:15:00 MOLINADAISY caraballo o [facility] 2021-02-11 2021-02-11 Outpatient [facility] [id number] Univers 15:45:00 15:45:00 MOLINA caraballo o [facility] 2021-02-11 2021-02-11 Nurse Visit, [facility] Nurse [facility] 1.2 .840.114 [id number] Univers 13:10:22 13:25:22 Visit Molina Pavon C HEAD OF MUSIC 350.1.13. 10 ity of REGIONAL 4.2.7.2.686 Man as MATERNAL [id number] [address] 2021-02-11 2021-02-11 Outpatient R [facility] [id number] Univers 08:30:00 08:30:00 ity [facility] 2021-02-04 2021-02-04 Routine Akinzoraida, [facility] 1.2.991.814 [id number] Univers 12:50:04 13:47:28 Molina C HEAD OF MUSIC 350.1.13.10 ity of Visit REGIONAL 4.2.7.2.686 Man as MATERNAL [phone] [facility] & [address] 2021-02-04 2021-02-04 Outpatient R [facility] [id number] Univers 12:45:00 12:45:00 ity [facility] 2021-01-28 2021-01-28 Routine Akinsipe, [facility] 1.2.989.805 [id number] Univers 13:07:23 14:00:04 Molina C HEAD OF MUSIC 350.1.13.10 ity of Visit REGIONAL 4.2.7.2.686 Man as MATERNAL [id number] [facility] [address] [place] [address] 2021-01-28 2021-01-28 Outpatient R LIBRADO [facility] [id number] Univers 13:00:00 13:00:00 MOLINA saba [facility] 2021-01-22 2021-01-22 Nurse Visit, Arvind Nurse [facility] 1.2 .840.114 [id number] Univers 13:32:06 13:56:46 Visit Molina Pavon HEAD OF MUSIC 350.1.13. 10 ity of [facility] 4.2.7.2.686 Man as MATERNAL [phone] [facility] & CHILD [address] [place] [address] 2021-01-22 2021-01-22 Outpatient R [facility] [id number] Univers 13:30:00 13:30:00 ity [facility] 2021-01-16 2021-01-16 Telephone Librado [facility] 1.2.840.114 [id number] Univers 00:00:00 00:00:00 Molina Kearney HEAD OF MUSIC 350.1.13.10 ity of REGIONAL 4.2.7.2.686 Man as MATERNAL [phone] [facility] & [address] 2021-01-15 2021-01-15 Nurse Visit, Arvind Nurse [facility] 1.2 .840.114 [id number] Univers 13:44:54 14:08:48 Visit Molina Pavon HEAD OF MUSIC 350.1.13. 10 ity of [facility] 4.2.7.2.686 Man as MATERNAL [phone] [facility] CH[facility] [address] [place] [address] 2021-01-15 2021-01-15 Outpatient R LIBRADO [facility] [id number] Univers 13:30:00 13:30:00 MOLINA saba [facility] 2021-01-14 2021-01-14 Outpatient R [facility] [id number] Univers 09:00:00 09:00:00 ity [facility] 2021-01-14 2021-01-14 Telephone Librado INMARANDA 1.2.840.114 [id number] Univers 00:00:00 00:00:00 Molina C HEAD OF MUSIC 350.1.13.10 ity of REGIONAL 4.2.7.2.686 Man as MATERNAL [id number] [facility] CH[facility] [address] [place] [address] 2021-01-07 2021-01-07 Routine Pamelazoraida [facility] 1.2.981.925 [id number] Univers 13:50:51 14:21:33 Molina C HEAD OF MUSIC 350.1.13.10 ity of Visit REGIONAL 4.2.7.2.686 Man as MATERNAL [id number] [facility] & CHILD [address] [place] [address] 2021-01-07 2021-01-07 Outpatient R LIBRADO [facility] [id number] Univers 14:00:00 14:00:00 MOLINA ity o f [facility] 2021-01-01 2021-01-01 Nurse Visit, Arvind Nurse [facility] 1.2 .840.114 [id number] Univers 13:08:36 13:37:19 Visit Maged Pavonola C HEAD OF MUSIC 350.1.13. 10 ity of REGIONAL 4.2.7.2.686 Man as MATERNAL [id number] [address] 2021-01-01 2021-01-01 Outpatient R [facility] [id number] Univers 13:30:00 13:30:00 ity [facility] 2020-12-31 2020-12-31 Outpatient R [facility] [id number] Univers 13:30:00 13:30:00 ity [facility] 2020-12-24 2020-12-24 Nurse Visit, Arvind Nurse [facility] 1.2 .840.114 [id number] Univers 14:21:35 14:59:58 Visit Molina Pavon C HEAD OF MUSIC 350.1.13. 10 ity of REGIONAL 4.2.7.2.686 Man as MATERNAL [id number] [facility] [address] [place] [address] 2020-12-24 2020-12-24 Outpatient R [facility] [id number] Univers 13:00:00 13:00:00 ity of [facility] 2020-12-18 2020-12-18 Hospital Evangelist Clark [facility] 1.2.840.114 [id number] Univers 18:50:00 20:20:00 Encounter [place] 350.1.13.10 ity of [place] 4.2.7.2.686 [place] [id number] [facility] 0[address] [place] 2020-12-18 2020-12-18 Telephone Librado [facility] 1.2.840.114 [id number] Univers 00:00:00 00:00:00 Molina Kearney HEAD OF MUSIC 350.1.13.10 ity of [facility] 4.2.7.2.686 Man as MATERNAL [id number] [facility] ical & CHILD [address] [place] [address] 2020-12-18 2020-12-18 Orders Doctor LUISA 1.2.840.114 [id number] Univers 00:00:00 00:00:00 Only Unassigned, JANNA 350.1.13.10 ity of [place] [facility] 4.2.7.2.686 Man as [id number] [facility] [place] 2020-12-17 2020-12-17 Nurse Visit, Arvind Nurse [facility] 1.2 .840.114 [id number] Univers 13:44:33 14:05:24 Visit Molina Pavon HEAD OF MUSIC 350.1.13. 10 ity of [facility] 4.2.7.2.686 Man as MATERNAL [phone] [facility] ical & CHILD [address] [place] [address] 2020-12-17 2020-12-17 Filling Carrier Ultrasound, Nathan [facility] 1.2 .840.114 [id number] Univers 13:10:05 13:40:05 Visit Gerardo Pettit HEAD OF MUSIC 350.1.13.10 ity of [facility] 4.2.7.2.686 Man as MATERNAL [id number] [facility] ical & CHILD [address] [facility] 2020-12-17 2020-12-17 Outpatient R LIBRADO [facility] [id number] Univers 10:30:00 10:30:00 MOLINA ity o f [facility] 2020-12-17 2020-12-17 [facility] 1.2.840.114 [id number] Univers 00:00:00 00:00:00 Molina C HEAD OF MUSIC 350.1.13.10 ity of REGIONAL 4.2.7.2.686 Man as MATERNAL [phone] [facility] CH[facility] [address] [place] [address] 2020-12-10 2020-12-10 [facility] 1.2.858.527 [id number] Univers 13:44:46 14:32:39 Molina C HEAD OF MUSIC 350.1.13.10 ity of Visit REGIONAL 4.2.7.2.686 Man as MATERNAL [id number] [facility] & CHILD [address] [place] [address] 2020-12-10 2020-12-10 [facility] [id number] Univers 14:15:00 14:15:00 MOLINA ity o f [facility] 2020-12-10 2020-12-10 [facility] Ul[facility] 1.2 .840.114 [id number] Univers 13:01:03 13:31:03 Visit Gerardo Pettit HEAD OF MUSIC 350.1.13.10 ity of Clara Petit [facility] 4.2.7.2.686 [place] MATERNAL [id number] [facility] & CHILD [address] [place] [address] 2020-12-03 2020-12-03 Filling Carrier Ultrasound, [facility] 1.2 .840.114 [id number] Univers 10:42:41 12:12:49 Visit Gerardo Pettit HEAD OF MUSIC 350.1.13.10 ity of Clara Petit [facility] 4.2.7.2.686 [place] MATERNAL [id number] [facility] & CHILD [address] [place] [address] 2020-12-03 2020-12-03 Outpatient P LILO [facility] [id number] Univers 10:45:00 10:45:00 GERARDO caraballo [facility] 2020-12-03 2020-12-03 Nurse Visit, Arvind Nurse [facility] 1.2 .840.114 [id number] Univers 10:22:01 10:42:50 Visit Molina Pavon HEAD OF MUSIC 350.1.13. 10 ity of REGIONAL 4.2.7.2.686 Man as MATERNAL [id number] [facility] CH[facility] [address] [place] [address] 2020-12-03 2020-12-03 Abstract Librado INMARANDA 1.2.840.114 [id number] Univers 00:00:00 00:00:00 Molina Kearney HEAD OF MUSIC 350.1.13.10 ity of REGIONAL 4.2.7.2.686 Man as MATERNAL [id number] [facility] CHILD [address] [place] [address] 2020-11-26 2020-11-26 Filling Carrier Ultrasound, Nathan [facility] 1.2 .840.114 [id number] Univers 13:20:09 13:50:09 Visit Gerardo Pettit HEAD OF MUSIC 350.1.13.10 ity of REGIONAL 4.2.7.2.686 Man as MATERNAL [id number] [facility] ical & CHILD [address] [facility] 2020-11-26 2020-11-26 Nurse Visit, Arvind Nurse [facility] 1.2 .840.114 [id number] [facility] 12:53:08 13:19:50 Visit Molina Pavon HEAD OF MUSIC 350.1.13. 10 ity of REGIONAL 4.2.7.2.686 Man as MATERNAL [id number] [facility] ical & CHILD [address] [place] [address] 2020-11-26 2020-11-26 Outpatient R ELODIA PAVON [facility] [id number] Univers 12:45:00 12:45:00 MOLINA caraballo o f [facility] 2020-11-26 2020-11-26 Abstract Librado INMARANDA 1.2.840.114 [id number] Univers 00:00:00 00:00:00 Molina Kearney HEAD OF MUSIC 350.1.13.10 ity of REGIONAL 4.2.7.2.686 Man as MATERNAL [phone] Med ical & CHILD [address] [facility] 2020-11-19 2020-11-19 Nurse Visit, Daryn-Rmchp Nurse [facility] 1.2 .840.114 [id number] Univers 13:24:06 13:52:49 Visit Molina Pavon HEAD OF MUSIC 350.1.13. 10 ity of REGIONAL 4.2.7.2.686 Man as MATERNAL [phone] Med ical & CHILD [address] [place] [address] 2020-11-19 2020-11-19 Filling Carrier Ultrasound, Nathan [facility] 1.2 .840.114 [id number] Univers 13:03:14 13:33:14 Visit Gerardo Pettit HEAD OF MUSIC 350.1.13.10 ity of Magdy Knutson [facility] 4.2.7.2.686 [place] MATERNAL [phone] Med ical & CHILD [address] [facility] 2020-11-19 2020-11-19 Outpatient R [facility] [id number] Univers 13:30:00 13:30:00 ity of [facility] 2020-11-19 2020-11-19 Abstract Librado [facility] 1.2.840.114 [id number] Univers 00:00:00 00:00:00 Molina C HEAD OF MUSIC 350.1.13.10 ity of REGIONAL 4.2.7.2.686 Man as MATERNAL [id number] [facility] ical & CHILD [address] [place] [address] 2020-11-14 2020-11-14 Abstract Librado [facility] 1.2.840.114 [id number] Univers 00:00:00 00:00:00 Molina C HEAD OF MUSIC 350.1.13.10 ity of REGIONAL 4.2.7.2.686 Man as MATERNAL [id number] [facility] ical & CHILD [address] [place] [address] 2020-11-12 2020-11-12 Routine Librado [facility] 1.2.241.140 [id number] Univers 13:46:03 15:02:34 Molina C HEAD OF MUSIC 350.1.13.10 ity of Visit [facility] 4.2.7.2.686 Man as MATERNAL [id number] Med ical & CHILD [address] [facility] 2020-11-12 2020-11-12 Outpatient R LIBRADO [facility] [id number] Univers 14:00:00 14:00:00 MOLINA caraballo o f [facility] 2020-11-12 2020-11-12 Filling Carrier Ultrasound, [facility] 1.2 .840.114 [id number] Univers 13:12:59 13:42:59 Visit Gerardo Pettit HEAD OF MUSIC 350.1.13.10 ity [facility] 4.2.7.2 .686 [place] MATERNAL [phone] [facility] [address] [facility] 2020-11-05 2020-11-05 Filling Carrier Ultrasound, [facility] 1.2 .840.114 [id number] Univers 12:57:18 13:27:18 Visit Gerardo Pettit HEAD OF MUSIC 350.1.13.10 ity [facility] 4.2.7.2.686 Man as MATERNAL [phone] [facility] & CHILD [address] [place] [address] 2020-11-05 2020-11-05 Outpatient P [facility] [id number] Univers 13:00:00 13:00:00 ity of [facility] 2020-11-05 2020-11-05 [facility] 1.2.840.114 [id number] Univers 00:00:00 00:00:00 Molina [place] HEAD OF MUSIC 350.1.13.10 ity [facility] 4.2.7.2.686 Man as MATERNAL [phone] [facility] & CHILD [address] [place] [address] 2020-10-28 2020-10-28 Patient Damaso [facility] 1.2.840.114 [id number] Univers 00:00:00 00:00:00 Outreach Rigo KOHLI 350.1.13.10 i ty of [facility] 4.2.7.2.[place] [phone] [address] 2020-10-15 2020-10-15 [facility] 1.2.840.790 [id number] Univers 13:53:52 14:39:37 Molina C HEAD OF MUSIC 350.1.13.10 ity of Visit REGIONAL 4.2.7.2.686 Man as MATERNAL [phone] [facility] ical & CHILD [address] [place] [address] 2020-10-15 2020-10-15 Outpatient R LIBRADO [facility] [id number] Univers 14:00:00 14:00:00 MOLINA ity o f [facility] 2020-10-10 2020-10-10 Abstract [facility] 1..840.114 [id number] Univers 00:00:00 00:00:00 Molina C HEAD OF MUSIC 350.1.13.10 ity of [facility] 4.2.7.2.686 Man as MATERNAL [phone] [facility] & CHILD [address] [place] [address] 2020-10-09 2020-10-09 Orders Doctor LUISA 1..840.114 [id number] Univers 00:00:00 00:00:00 Only Unassigned, JANNA 350.1.13.10 ity of [place] [facility] 4.2.7.2.686 Man as [phone] [address] 2020-10-08 2020-10-08 Filling Carrier 1, Davidpraveen Room [facility] 1.2. 840.114 [id number] Univers 15:03:35 15:48:35 Visit Fátima Carson HEAD OF MUSIC 350.1. 13.10 ity of [facility] 4.2.7.2.686 Man as MATERNAL [phone] [facility] ical & CHILD [address] [facility] 2020-10-08 2020-10-08 [facility] 1.2.840. 114 [id number] Univers 15:03:49 15:43:00 Visit Tennille Humphrey HEAD OF MUSIC 350.1.13. 10 ity of [facility] 4.2.7.2.686 Man as MATERNAL [phone] [facility] ical & CHILD 125 [facility] 2020-10-08 2020-10-08 Outpatient P [facility] [id number] Univers 14:00:00 14:00:00 ity of [facility] 2020-10-06 2020-10-06 Telephone [facility] 1.2.840.114 [id number] Univers 00:00:00 00:00:00 Molina C HEAD OF MUSIC 350.1.13.10 ity of [facility] 4.2.7.2.686 Man as MATERNAL [phone] [facility] & CHILD [address] [place] [address] 2020-09-29 2020-09-29 Orders Doctor MORAN 1.2.840.114 [id number] Univers 00:00:00 00:00:00 Only Unassigned, JANNA 350.1.13.10 ity of [place] [facility] 4.2.7.2.686 Man as [phone] [address] 2020-09-25 2020-09-25 Telephone [facility] 1.2.840.114 [id number] Univers 00:00:00 00:00:00 Molina C HEAD OF MUSIC 350.1.13.10 ity of [facility] 4.2.7.2.686 Man as MATERNAL [phone] [address] 2020-09-24 2020-09-24 Outpatient R [facility] [id number] Univers 15:00:00 15:00:00 MOLINA delatorrey o f [facility] 2020-09-18 2020-09-18 Telephone [facility] 1.2.840.114 [id number] Univers 00:00:00 00:00:00 Molina C HEAD OF MUSIC 350.1.13.10 ity of [facility] 4.2.7.2.686 Man as MATERNAL [id number] [address] 2020-09-17 2020-09-17 Outpatient R [facility] [id number] Univers 16:00:00 16:00:00 MOLINA ity o f [facility] 2020-09-17 2020-09-17 Routine [facility] 1.2.123.550 [id number] Univers 15:44:41 15:59:41 Molina C HEAD OF MUSIC 350.1.13.10 ity of Visit REGIONAL 4.2.7.2.686 Man as MATERNAL [phone] [facility] & CHILD [address] [place] [address] 2020-08-20 2020-08-20 [facility] 1.2.406.610 [id number] Univers 12:55:28 14:19:34 Molina C HEAD OF MUSIC 350.1.13.10 ity of Visit REGIONAL 4.2.7.2.686 Man as MATERNAL [phone] [facility] [address] [place] [address] 2020-08-20 2020-08-20 Outpatient R [facility] [id number] Univers 12:45:00 12:45:00 ity of [facility] 2020-06-04 2020-06-04 [facility] 1.2.937.051 [id number] Univers 15:42:24 16:35:24 Visit [facility] C HEAD OF MUSIC 350.1.13.10 ity of REGIONAL 4.2.7.2.686 Man as MATERNAL [phone] [facility] & CHILD [address] [place] [address] 2020-06-04 2020-06-04 [facility] [id number] Univers 16:00:00 16:00:00 MOLINA ity o f [facility] 2020-04-01 2020-04-01 Office [facility] 1.2.840.114 [id number] Univers 15:55:34 16:41:33 Visit Bella R HEAD OF MUSIC 350.1.13.10 ity of REGIONAL 4.2.7.2.686 Man as MATERNAL [id number] [facility] & CHILD [address] [place] [address] 2020-04-01 2020-04-01 [facility] [id number] Univers 15:45:00 15:45:00 ROSHUNDA ity o f [facility] 2020-03-24 2020-03-24 Telephone Samaniego, TRAUMA 1.2.840.114 [id number] Univers 00:00:00 00:00:00 [facility] 350.1.13.10 [place] [phone] [facility] [address] 2020-03-21 2020-03-22 Emergency [facility] 1.2.840.114 [id number] Univers 22:44:00 01:28:00 Lenin Christina 350.1.13.10 i ty of [place] [phone] [facility] [address] 2020-02-26 2020-02-26 Emergency [facility] 1.2.511.645 [id number] Univers 16:39:27 18:59:00 Evangelist Millard Christina 350.1.13.10 i ty of [place] [phone] [facility] [address] 2020-02-26 2020-02-26 Orders Doctor MORAN 1.2.840.114 [id number] Univers 00:00:00 00:00:00 Only Unassigned, JANNA 350.1.13.10 [facility] 4.2.7.2.686 Man as [phone] [place] [address] [place] 2020-02-07 2020-02-07 Outpatient [facility] [id number] Univers 13:00:00 13:00:00 MOLINA saba [facility] 2020-01-10 2020-01-10 Telephone [facility] 1.2.840.114 [id number] Univers 00:00:00 00:00:00 Molina K[place]ney HEAD OF MUSIC 350.1.13.10 ity of [facility] 4.2.7.2.686 Man as MATERNAL [phone] [facility] ical & CHILD [address] [place] [address] 2020-01-07 2020-01-07 Outpatient R [facility] [id number] Univers 08:30:00 08:30:00 MOLINA connolly f [facility] 2019-12-12 2019-12-12 Telephone [facility] 1.2.840.114 [id number] Univers 00:00:00 00:00:00 Molina [place] HEAD OF MUSIC 350.1.13.10 ity [facility] 4.2.7.2.686 Man as MATERNAL [phone] [facility] CHILD [address] [place] [address] 2019-11-16 2019-11-16 Outpatient R LIBRADO [facility] [id number] Univers 15:00:00 15:00:00 MOLINA saba [facility] 2019-10-26 2019-10-26 Telephone [facility] 1.2.840.114 [id number] Univers 00:00:00 00:00:00 Molina [place] HEAD OF MUSIC 350.1.13.10 ity of [facility] 4.2.7.2.686 Man as MATERNAL [phone] [address] 2019-10-05 2019-10-05 Office Librado [facility] 1.2.691.961 [id number] Univers 14:55:55 15:52:08 Visit Molina [place] HEAD OF MUSIC 350.1.13.10 ity of [facility] 4.2.7.2.686 Man as MATERNAL [id number] [address] 2019-10-05 2019-10-05 Outpatient R LIBRADO [facility] [id number] Univers 15:00:00 15:00:00 MOLINA saba [facility] 2019-10-05 2019-10-05 Orders Doctor LUISA 1.2.840.114 [id number] Univers 00:00:00 00:00:00 Only Unassigned, JANNA 350.1.13.10 ity of [place] [facility] 4.2.7.2.686 Man as [id number] [address] 2019-09-20 2019-09-20 Office [facility] 1.2.658.115 [id number] Univers 14:11:23 15:38:56 Visit Molina [place] HEAD OF MUSIC 350.1.13.10 ity of [facility] 4.2.7.2.686 Man as MATERNAL [phone] [facility] CHILD [address] [place] [address] 2019-09-18 2019-09-18 Nurse Visit, [facility] Nurse [facility] 1.2 .840.114 [id number] Univers 14:05:15 14:49:01 Visit Molina Pavon HEAD OF MUSIC 350.1.13. 10 ity of REGIONAL 4.2.7.2.686 Man as MATERNAL [phone] [facility] ical & CHILD [address] [place] [address] 2019-04-27 2019-04-27 Abstract Librado [facility] 1.2.840.114 [id number] Univers 00:00:00 00:00:00 Molina C HEAD OF MUSIC 350.1.13.10 ity of REGIONAL 4.2.7.2.686 Man as MATERNAL [phone] [facility] ical & CHILD [address] [place] [address] 2019-04-24 2019-04-24 Nurse Visit, Arvind Nurse [place] 1.2 .840.114 [id number] Univers 10:40:27 11:05:53 Visit Alina PowersclarisaFátima HEAD OF MUSIC 350.1. 13.10 ity of Molina Pavon REGIONAL 4.2.7.2.68 6 [place] MATERNAL [phone] [facility] ical & CHILD [address] [place] [address] 2019-04-24 2019-04-24 Filling Carrier Ultrasound, Nathan [place] 1.2 .840.114 [id number] Univers 10:06:08 10:51:08 Visit Alina Valle Shine HEAD OF MUSIC 350.1. 13.10 ity of [facility] 4.2.7.2.686 Man as MATERNAL [phone] [facility] ical & CHILD 369 [facility] 2019-04-17 2019-04-24 Routine Librado [facility] 1.2.226.042 [id number] Univers 13:01:05 08:40:10 Molina C HEAD OF MUSIC 350.1.13.10 ity of Visit [facility] 4.2.7.2.686 Man as MATERNAL [id number] [facility] ical & CHILD [address] [place] [address] 2019-04-18 2019-04-18 Hospital Bushra Conteh [facility] 1.2.840.114 [id number] Univers 19:24:00 20:30:00 Encounter Jess Friend 350.1.13.1 0 ity of [place] [phone] [address] 2019-04-14 2019-04-14 [facility] [place] 1.2.840.114 [id number] Univers 01:31:00 02:40:00 Encounter Jessreid [place] 350.1.13.10 ity of [place] 4.2.7.2.686 [facility] [phone] [address] 2019-04-10 2019-04-10 Nurse Visit, Ang-Rmchp Nurse [facility] 1.2 .840.114 [id number] [facility] 14:01:50 14:41:50 Visit Molina Pavon HEAD OF MUSIC 350.1.13. 10 ity of [facility] 4.2.7.2.686 Man as MATERNAL [id number] [facility] ical & CHILD [address] [place] [address] 2019-04-03 2019-04-03 Nurse Visit, Arvind Nurse [facility] 1.2 .840.114 [id number] [facility] 11:47:37 12:00:15 Visit Molina Pavon HEAD OF MUSIC 350.1.13. 10 ity of [facility] 4.2.7.2.686 Man as MATERNAL [phone] [facility] ical & CHILD [address] [place] [address] 2019-03-29 2019-03-29 Routine Risk, Scm-Wbfzo-Pa/High [facility] 1. 2.840.114 [id number] Univers 13:37:34 15:04:21 Marilu Doran HEAD OF MUSIC 350.1.13.10 ity of Visit REGIONAL 4.2.7.2.686 Man as MATERNAL [phone] [facility] ical & CHILD [address] [place] [address] 2019-03-27 2019-03-27 Nurse Visit, Ang-Rmchp Nurse [facility] 1.2 .840.114 [id number] Univers 10:09:07 10:24:12 Visit Molina Pavon HEAD OF MUSIC 350.1.13. 10 ity of REGIONAL 4.2.7.2.686 Man as MATERNAL [phone] [facility] ical & CHILD [address] [place] [address] 2019-03-20 2019-03-20 Routine Josef, [facility] 1.2.614.524 [id number] [facility] 10:34:37 11:11:26 Amanda N HEAD OF MUSIC 350.1.13.10 i ty of Visit REGIONAL 4.2.7.2.686 Man as MATERNAL [phone] [facility] [address] [place] [address] 2019-03-20 2019-03-20 Nurse Visit, Arvind Nurse [facility] 1.2 .840.114 [id number] Univers 10:02:19 10:37:28 Visit Pamelaanazoraida Molina C HEAD OF MUSIC 350.1.13. 10 ity of REGIONAL 4.2.7.2.686 Man as MATERNAL [phone] [facility] & [address] 2019-03-15 2019-03-15 Routine Faculty, Daryn Sewell Mfm [facility] 1.2 .840.114 [id number] [facility] 09:37:58 10:18:32 Librado Molina C HEAD OF MUSIC 350.1.13 .10 ity of Visit REGIONAL 4.2.7.2.686 Man as MATERNAL [phone] [facility] & CHILD [address] [place] [address] 2019-03-13 2019-03-13 Nurse Visit, Prashanthnuvia Nurse [facility] 1.2 .840.114 [id number] Univers 09:35:59 10:07:45 Visit Pamelaanazoraida Molina C HEAD OF MUSIC 350.1.13. 10 ity of [place] 4.2.7.2.686 Man as MATERNAL [phone] [facility] & CHILD [address] [place] [address] 2019-03-06 2019-03-06 [facility] 1.2 .840.114 [id number] Univers 09:03:54 09:49:10 Visit Pamelasizoraida Molina C HEAD OF MUSIC 350.1.13. 10 ity of REGIONAL 4.2.7.2.686 Man as MATERNAL [id number] [facility] & CHILD [address] [place] [address] 2019-02-20 2019-03-06 Routine Librado, [facility] 1.2.254.265 [id number] Univers 10:45:20 09:40:49 Molina C HEAD OF MUSIC 350.1.13.10 ity of Visit [facility] 4.2.7.2.686 Man as MATERNAL [phone] [facility] ical & CHILD [address] [place] [address] Results Test Description Test Time Test Comments Results Result Comments Source SURGICAL SPECIMENS 2022-12-28 10:29:00 Test Item Value Reference Range Interpretation Comme nts SURGICAL RUN SPECIMENS DATE: 12/28/22 MARIAH encisowest - LAB PAGE 1 RUN TIME: 1029 Specimen Inquiry RUN USER: (test code INTERFACE = SURG) LARON NT: AMANUEL LOTT ACCDavidson #: [id number] LOC: ANAYELI U #: [id number] AGE/SX: 22/F ROOM: RE12/24/22GIANNI DR: Renu Galan MD : 00 BED: DIS: STATUS: COLLETTE MEEK TLOC: SPEC #: [id number] RECD: [id number] STATUS: RIANA VAN #: [id number] CHAD: 12/24/22-[address]: Renu Galan MD [...] Humphrey 1029 END OF REPORT BASIC METABOLIC [id number] 09:28:00 Test Item Value Reference Range Interpretation [...] [Automated message] (test code = The system [employer] HEMINDEX) generated this result transmitted ref erence range: 1 NORMAL . The reference range was not used to int erpret this result as normal/abnormal . INDEX ICTERIC 1 Index/DL See_Comment [Automated me ssage] (test code = The system [employer] ICTINDEX) generated this result transmitted ref erence range: 1 NORMAL . The reference range was not used to int erpret this result as normal/abnormal . INDEX LIPEMIA 0 Index/DL See_Comment [Automated me ssage] (test code = The system [employer] LIPINDEX) generated this result transmitted ref erence range: 1 NORMAL . The reference range was not used to int erpret this result as normal/abnormal . HCG SERUM [id number] 09:03:00 Test Item Value Reference Range Interpretation Comments HCG SERUM QUAL NEGATIVE NEGATIVE This is a ani litative (test code = HCGQL) screenin g test.The quantitative Bh cg may be helpful.Weakly positive results should be repeated in 48 hours. CBC W/AUTO [id number] 08:47:00 Test Item Value Reference Range Interpretation [...] 0.1 x10 3/uL 0.0-0.1 N Complete Metabolic [id number] 05:54:09 Test Item Value Reference Range Interpretation Comments NA (test code = 141 mmol/L 135-145 2562129243) K (test code = 3.9 mmol/L 3.5-5.0 0477626294) CL (test code = 103 mmol/L 98-108 3767885999) CO2 TOTAL (test code 28 mmol/L 23-31 = 2203492645) AGAP (test code = 10 2-16 5126459531) BUN (test code = 13 mg/dL 7-23 1719830450) GLUCOSE (test code = 95 mg/dL 70-110 9630352550) CREATININE (test code 0.81 mg/dL 0.50-1.04 = 1347833917) TOTAL BILI (test code 0.3 mg/dL 0.1-1.1 = 6633335021) CALCIUM (test code = 9.3 mg/dL 8.6-10.6 8202250126) T PROTEIN (test code 8.0 g/dL 6.3-8.2 = 7880502361) ALBUMIN (test code = 4.9 g/dL 3.5-5.0 8585449145) ALK PHOS (test code = 38 U/L 34-122 2316394974) ALTv (test code = 17 U/L 5-35 1742-6) AST(SGOT) (test code 20 U/L 13-40 = 6440542850) eGFR (test code = 88.4 mL/min/1.73m2 4528430955) BRIDGET (test code = BRIDGET) Association of [...] or urine or abnormalities in imaging tests). [facility], [id number] 05:54:09 Test Item Value Reference Range Interpretation Comments LIPASE (test code = 1488698423) 170 U/L 0-220 Lab Interpretation (test code = Normal 17201-3) [facility] Rock[facility] with [id number] 05:41:47 Test Item Value Reference Range Interpretation Comments WBC (test code = 5.83 See_Comment [Automated 3498-2) message] The sy stem which generated this result transmitted reference range : 4.30 - 11.10 10*3/?L. The reference range was not used to interpret this result as normal/abnormal . RBC (test code = 4.46 See_Comment [Automated 465-1) message] The sy stem which generated this [...] RDW-SD (test code = 45.6 fL 39.0-49.9 71344-3) RDW-CV (test code = 15.1 % 12.0-15.5 788-0) PLT (test code = 316 See_Comment [Automated 777-3) message] The sy stem which generated this result transmitted reference range : 166 - 358 10*3/ ?L. The reference r ian was not used to interpret this result as normal/abnormal . MPV (test code = 9.3 fL 9.5-12.9 L 21836-1) NRBC/100 WBC (test 0.0 See_Comment [Automat ed code = 0223970061) message] The system which generated this result transmitted reference range : 0.0 - 10.0 /100 WBCs. The refer ence range was not u sed to interpret th is result as normal/abnormal . NRBC x10^3 (test code See_Comment [Auto mated = 0251729562) message] The s ystem which generated this result transmitted reference range : 10*3/?L. The reference range was not used to interpret this result as normal/abnormal . GRAN MAT (NEUT) % 43.9 % (test code = 770-8) IMM GRAN % (test code 0.20 % = 6365909286) LYMPH % (test code = 40.7 % 736-9) MONO % (test code = 10.6 % 5905-5) EOS % (test code = 3.6 % 713-8) BASO % (test code = 1.0 % 706-2) GRAN MAT x10^3(ANC) 2.56 10*3/uL 1.88-7.09 (test code = 9232441213) IMM GRAN x10^3 (test 0.00-0.06 code = 6524457484) LYMPH x10^3 (test code 2.37 10*3/uL 1.32-3.29 = 731-0) MONO x10^3 (test code 0.62 10*3/uL 0.33-0.92 = 742-7) EOS x10^3 (test code = 0.21 10*3/uL 0.03-0.39 711-2) BASO x10^3 (test code 0.06 10*3/uL 0.01-0.07 = 704-7) Lab Interpretation Abnormal (test code = 15100-5) [facility] [id number] 05:31:00 Test Item Value Reference Range Interpretation Comments POCT PREG (test code = 1605) Negative On board controls acceptable with Yes C Line (test code = 3574) POCT PREG LOT # (test code = 3575) [id number] POCT PREG TEST DATE (test 2024-03-15 code = 3576) Lab Interpretation (test code = Normal 02179-1) [facility] [id number] 19:44:00 Test Item Value Reference Range Interpretation Comments POCT PREG (test code = 1605) Negative On board controls acceptable with C Yes Line (test code = 3574) POCT PREG LOT # (test code = 3575) POCT PREG TEST DATE (test code = 3576) [facility] RockGROUP B STREPTOCOCCUS BY [id number] 17:05:28 Test Item Value Reference Range Interpretation Comments Group B Streptococcus by PCR (test Positive Negative A code = 20420-2) Lab Interpretation (test code = Abnormal 33068-6) [facility] ONLY COVID [id number] 21:22:56COVID DMT InterpretationInterpretation/Recommendation:Molecular NAAT Tests for Active Infection withthe SARS-CoV-2 Virus:This patient has not been currently tested at [facility] for an active infection [...] COVID-19 testing the patient has had at [facility], including molecular NAAT testing (more commonly known as PCR testing and RapidID Now testing) and antibody testing. It does not take into account any testing that a patient has had outside of the [facility] medical record. [facility] LABORATORY SERVICESCOVID ResultsCoV-2 IgG (no units) ? ? Date ? Value ? 03/25/2021 ? Negative ? 08/20/2020 ? Negative ? ? ? [facility] LABORATORY SERVICESUnThe [facility] [place] [facility] Anderson Cancer CenterRS-COV-2 IGG 2021-03-26 05:50:07 Test Item Value Reference Range Interpretation Comments CoV-2 IgG (test code Negative Negative Negativ e result = 23836-9) does not rule o wa acute SARS-CoV- 2 infection. Clinical correlation as well as molecul ar diagnostic test are recommended to rule out acu te infection if clinically indicated. BRIDGET (test code = BRIDGET) The CoV-2 antibody test should not be used for screening of donated blood. This test has been approved by FDA for emergency use. Lab Interpretation Normal (test code = 98228-5) [facility] WITH [id number] 05:04:06 Test Item Value Reference Range Interpretation [...] RDW-SD (test code = 39.3 fL 39.0-49.9 80587-2) RDW-CV (test code = 13.6 % 12.0-15.5 788-0) PLT (test code = See_Comment [Automated 777-3) message] The sy stem which generated this result transmitted reference range : 166 - 358 10*3/ ?L. The reference r ian was not used to interpret this result as normal/abnormal . MPV (test code = 9.4 fL 9.5-12.9 L 60988-3) NRBC/100 WBC (test See_Comment [Automat ed code = 6668548608) message] The system which generated this result transmitted reference range : 0.0 - 10.0 /100 WBCs. The refer ence range was not u sed to interpret th is result as normal/abnormal . NRBC x10^3 (test code <0.01 See_Comment [Auto mated = 3858968168) message] The s ystem which generated this result transmitted reference range : 10*3/?L. The reference range was not used to interpret this result as normal/abnormal . GRAN MAT (NEUT) % 74.5 % (test code = 770-8) IMM GRAN % (test code 0.70 % = 6766072934) LYMPH % (test code = 15.3 % 736-9) MONO % (test code = 8.8 % 5905-5) EOS % (test code = 0.5 % 713-8) BASO % (test code = 0.2 % 706-2) GRAN MAT x10^3(ANC) 6.09 10*3/uL 1.88-7.09 (test code = 6408683912) IMM GRAN x10^3 (test 0.06 10*3/uL 0.00-0.06 code = 8437113706) LYMPH x10^3 (test code 1.25 10*3/uL 1.32-3.29 L = 731-0) MONO x10^3 (test code 0.72 10*3/uL 0.33-0.92 = 742-7) EOS x10^3 (test code = 0.04 10*3/uL 0.03-0.39 711-2) BASO x10^3 (test code <0.03 0.01-0.07 = 704-7) Lab Interpretation Abnormal (test code = 33292-1) General acute hospital URINALYSIS W SPECIFIC [id number] 18:26:00 Test Item Value Reference Range Interpretation [...] POCT U APPEAR (test code = 3267) General acute hospital URINALYSIS W SPECIFIC [id number] 18:55:00 Test Item Value Reference Range Interpretation [...] POCT U APPEAR (test code = 3267) General acute hospital URINALYSIS W SPECIFIC [id number] 18:55:00 Test Item Value Reference Range Interpretation [...] POCT U APPEAR (test code = 3267) General acute hospital URINALYSIS W SPECIFIC [id number] 18:19:00 Test Item Value Reference Range Interpretation [...] POCT U APPEAR (test code = 3267) [facility] Rock[facility] ONLY - SYPHILIS [id number] 14:13:27 Test Item Value Reference Range Interpretation Comments Syphilis IgG/IgM (test Non-reactive Non-reactive code = 92748-3) BRIDGET (test code = BRIDGET) Non-reactive - No serologic evidence of T. pallidum infection. Cannot exclude incubating or early syphilis. Submit a second specimen in 2-4 weeks if syphilis is clinically suspected. Equivocal - Further testing to follow. Reactive - Further testing to follow. Lab Interpretation (test Normal code = 40479-3) [facility] RockHIV 1/2 AG-AB WITH [id number] 06:30:45 Test Item Value Reference Range Interpretation Comments HIV Negative Negative Semi-quantitative (test code = 10833-7) BRIDGET (test code = Non-reactive for HIV-1 BRIDGET) antigen and HIV-1/HIV-2 antibodies. ?No laboratory evidence of HIV infection. ?Repeat in 2-4 weeks if acute HIV infection is suspected. [facility] RockPrenatal Workup, Blood [id number] 04:17:21 Test Item Value Reference Range Interpretation Comments ABO & RH (test code B NEGATIVE Performe d at [facility] = 20) Laboratory Serv [facility] Blood [facility] s [address]Dgmy Free: [phone] A No. [id number] IAT (test code = Negative Performed a t [facility] 1185) Laboratory Serv [facility] Blood [facility] s [address]Uwde Free: [phone] A No. [id number] [facility] RockPOCT URINALYSIS W SPECIFIC [id number] 18:28:00 Test Item Value Reference Range Interpretation [...] POCT U APPEAR (test code = 3267) [facility] RockGlucose 1 Hour Post [id number] 06:46:48 Test Item Value Reference Range Interpretation Comments GLUC 1 HR (test code = 5491829733) 106 mg/dL 120-170 L Lab Interpretation (test code = Abnormal 98222-2) [facility] with [id number] 05:55:05 Test Item Value Reference Range Interpretation Comments WBC (test code = See_Comment [Automated 6290-2) message] The sy stem which generated this result transmitted reference range : 4.30 - 11.10 10*3/?L. The reference range was not used to interpret this result as normal/abnormal . RBC (test code = See_Comment L [Automated 649-8) message] The sy stem which generated this [...] RDW-SD (test code = 42.4 fL 39.0-49.9 23829-4) RDW-CV (test code = 13.5 % 12.0-15.5 788-0) PLT (test code = See_Comment [Automated 777-3) message] The sy stem which generated this result transmitted reference range : 166 - 358 10*3/ ?L. The reference r ian was not used to interpret this result as normal/abnormal . MPV (test code = 9.8 fL 9.5-12.9 14152-6) NRBC/100 WBC (test See_Comment [Automat ed code = 0545053723) message] The system which generated this result transmitted reference range : 0.0 - 10.0 /100 WBCs. The refer ence range was not u sed to interpret th is result as normal/abnormal . NRBC x10^3 (test code <0.01 See_Comment [Auto mated = 4983418943) message] The s ystem which generated this result transmitted reference range : 10*3/?L. The reference range was not used to interpret this result as normal/abnormal . GRAN MAT (NEUT) % 77.2 % (test code = 770-8) IMM GRAN % (test code 0.40 % = 5704804723) LYMPH % (test code = 12.6 % 736-9) MONO % (test code = 8.2 % 5905-5) EOS % (test code = 1.2 % 713-8) BASO % (test code = 0.4 % 706-2) GRAN MAT x10^3(ANC) 6.19 10*3/uL 1.88-7.09 (test code = 7272618712) IMM GRAN x10^3 (test 0.03 10*3/uL 0.00-0.06 code = 4820375989) LYMPH x10^3 (test code 1.01 10*3/uL 1.32-3.29 L = 731-0) MONO x10^3 (test code 0.66 10*3/uL 0.33-0.92 = 742-7) EOS x10^3 (test code = 0.10 10*3/uL 0.03-0.39 711-2) BASO x10^3 (test code 0.03 10*3/uL 0.01-0.07 = 704-7) Lab Interpretation Abnormal (test code = 63411-9) General acute hospital URINALYSIS W SPECIFIC [id number] 19:05:00 Test Item Value Reference Range Interpretation [...] POCT U APPEAR (test code = 3267) General acute hospital URINALYSIS W SPECIFIC [id number] 19:05:00 Test Item Value Reference Range Interpretation [...] POCT U APPEAR (test code = 3267) General acute hospital URINALYSIS W SPECIFIC [id number] 19:37:00 Test Item Value Reference Range Interpretation [...] POCT U APPEAR (test code = 3267) General acute hospital URINALYSIS W SPECIFIC [id number] 18:59:00 Test Item Value Reference Range Interpretation [...] POCT U APPEAR (test code = 3267) General acute hospital URINALYSIS W SPECIFIC [id number] 18:59:00 Test Item Value Reference Range Interpretation [...] POCT U APPEAR (test code = 3267) General acute hospital URINALYSIS W SPECIFIC [id number] 20:09:00 Test Item Value Reference Range Interpretation [...] POCT U APPEAR (test code = 3267) General acute hospital URINALYSIS W SPECIFIC [id number] 22:04:00 Test Item Value Reference Range Interpretation [...] POCT U APPEAR (test code = 3267) [facility] COVID [id number] 22:28:00COVID DMT InterpretationInterpretation/Recommendation: Molecular NAAT Tests for [...] COVID-19 testing the patient has had at [facility], including molecular NAAT testing (more commonly known as PCR testing and Rapid ID Now testing) and antibody testing. It does not take into account any testing that a patient has had outside of the [facility] medical record. [facility] LABORATORY SERVICESCOVID ResultsCoV-2 IgG (no units) ? ? Date ? Value ? 08/20/2020 ? Negative ? ? ? [facility] LABORATORY SERVICESUnGraham Regional Medical CenterGC & CHLAMYDIA AMPLIFIED [id number] 19:13:00 Test Item Value Reference Range Interpretation Comments C. trachomatis Nucleic Negative Negative Acid (test code = 42604-9) N. gonorrhoeae Nucleic Negative Negative Acid (test code = 88609-0) BRIDGET (test code = BRIDGET) Reliable results [...] NAAT. Lab Interpretation Normal (test code = 83874-3) [facility] RockRUBELLA SCREEN (NICHOLAS) [id number] 18:20:00 Test Item Value Reference Range Interpretation Comments Rubella screen IgG Positive Negative (test code = 5334359340) BRIDGET (test code = BRIDGET) Positive - Indicates the patient was exposed to Rubella through infection or vaccination.Negative - Indicates the patient could be susceptible to Rubella infection.Equivocal - A second specimen should be sent. [facility] [id number] 18:20:00 Test Item Value Reference Range Interpretation Comments VZV IgG antibody Positive Negative (test code = 08113-4) BRIDGET (test code = BRIDGET) Positive - Indicates the patient was exposed to VZV through infection or vaccination.Negative - Indicates the patient could be susceptible to VZV infection.Equivocal - A second specimen should be sent for testing. [facility] RockGAL ONLY - SYPHILIS [id number] 15:58:00 Test Item Value Reference Range Interpretation Comments Syphilis IgG/IgM (test Non-reactive Non-reactive code = 70885-7) BRIDGET (test code = BRIDGET) Non-reactive - No serologic evidence of T. pallidum infection. Cannot exclude incubating or early syphilis. Submit a second specimen in 2-4 weeks if syphilis is clinically suspected. Equivocal - Further testing to follow. Reactive - Further testing to follow. Lab Interpretation (test Normal code = 09944-6) [facility] RockHI 1/2 AG-AB WITH [id number] 07:44:00 Test Item Value Reference Range Interpretation Comments HIV Negative Negative Semi-quantitative (test code = 01430-8) BRIDGET (test code = Non-reactive for HIV-1 BRIDGET) antigen and HIV-1/HIV-2 antibodies. ?No laboratory evidence of HIV infection. ?Repeat in 2-4 weeks if acute HIV infection is suspected. [facility] RockSARS-COV-2 [id number] 06:37:00 Test Item Value Reference Range Interpretation Comments CoV-2 IgG (test code Negative Negative Negativ e result = 77416-7) does not rule o wa acute SARS-CoV- 2 infection. Clinical correlation as well as molecul ar diagnostic test are recommended to rule out acu te infection if clinically indicated. BRIDGET (test code = BRIDGET) This test has been approved by FDA for emergency use. Lab Interpretation Normal (test code = 78470-0) [facility] RockHEPATITIS B SURFACE [id number] 06:28:00 Test Item Value Reference Range Interpretation Comments HBsAg Semi-Quantitative (test code = Negative Negative 5195-3) [facility] RockPRENATAL WORKUP, BLOOD [id number] 05:28:33 Test Item Value Reference Range Interpretation Comments ABO & RH (test code B NEGATIVE Performe d at [facility] = 20) Laboratory Serv [facility] Blood [facility]3 [address] [facility] s [address]Theu Free: [phone] A No. [id number] IAT (test code = Negative Performed a t [facility] 1185) Laboratory Serv [facility] Blood Bank3 [facility] s [address]Wbnv Free: [phone] A No. [id number] [facility] RockGLUCOSE 1 HOUR POST [id number] 05:10:00 Test Item Value Reference Range Interpretation Comments GLUC 1 HR (test code = 0127145068) 67 mg/dL 120-170 L Lab Interpretation (test code = Abnormal 87125-7) [facility] RockCB WITH [id number] 04:00:00 Test Item Value Reference Range Interpretation Comments WBC (test code = See_Comment [Automated 0226-2) message] The sy stem which generated this result transmitted reference range : 4.30 - 11.10 10*3/?L. The reference range was not used to interpret this result as normal/abnormal . RBC (test code = See_Comment [Automated 269-8) message] The sy stem which generated this [...] RDW-SD (test code = 47.8 fL 39-49.9 19331-1) RDW-CV (test code = 15.8 % 12-15.5 H 788-0) PLT (test code = See_Comment [Automated 277-3) message] The sy stem which generated this result transmitted reference range : 166 - 358 10*3/ ?L. The reference r ian was not used to interpret this result as normal/abnormal . MPV (test code = 10.1 fL 9.5-12.9 02817-1) NRBC/100 WBC (test See_Comment [Automat ed code = 2599561105) message] The system which generated this result transmitted reference range : 0.0 - 10.0 /100 WBCs. The refer ence range was not u sed to interpret th is result as normal/abnormal . NRBC x10^3 (test code <0.01 See_Comment [Auto mated = 0113793839) message] The s ystem which generated this result transmitted reference range : 10*3/?L. The reference range was not used to interpret this result as normal/abnormal . GRAN MAT (NEUT) % 60.4 % (test code = 770-8) IMM GRAN % (test code 0.20 % = 7681851468) LYMPH % (test code = 27.9 % 736-9) MONO % (test code = 8.4 % 5905-5) EOS % (test code = 2.1 % 713-8) BASO % (test code = 1.0 % 706-2) GRAN MAT x10^3(ANC) 3.80 10*3/uL 1.88-7.09 (test code = 3456517063) IMM GRAN x10^3 (test <0.03 0-0.06 code = 4499394817) LYMPH x10^3 (test code 1.75 10*3/uL 1.32-3.29 = 731-0) MONO x10^3 (test code 0.53 10*3/uL 0.33-0.92 = 742-7) EOS x10^3 (test code = 0.13 10*3/uL 0.03-0.39 711-2) BASO x10^3 (test code 0.06 10*3/uL 0.01-0.07 = 704-7) Lab Interpretation Abnormal (test code = 25080-1) [facility] RockPOVT [id number] 18:57:00 Test Item Value Reference Range Interpretation Comments POCT PREG (test code = 1605) Positive On board controls acceptable with C Yes Line (test code = 3574) POCT PREG LOT # (test code = 3575) POCT PREG TEST DATE (test code = 357) General acute hospital URINALYSIS W/O SPECIFIC [id number] 18:57:00 Test Item Value Reference Range Interpretation [...] code = 3257) Neg Negative - Negative General acute hospital [id number] 18:57:00 Test Item Value Reference Range Interpretation Comments POCT PREG (test code = 1605) Positive On board controls acceptable with C Yes Line (test code = 3574) POCT PREG LOT # (test code = 3575) POCT PREG TEST DATE (test code = 357) General acute hospital URINALYSIS W/O SPECIFIC [id number] 18:57:00 Test Item Value Reference Range Interpretation [...] code = 3257) Neg Negative - Negative [facility] [id number] 04:43:00 Test Item Value Reference Range Interpretation Comments APPEARANCE (test code = Cloudy Clear A 5905729374) COLOR (test code = Yellow Yellow 5603804012) PH (test code = 4.8-8.0 0096520625) SP GRAVITY (test code = 1.003-1.030 5773867694) GLU U QUAL (test code = Normal Normal 6719355104) BLOOD (test code = Negative Negative 0919108470) KETONES (test code = Negative Negative 7542829652) PROTEIN (test code = Negative Negative 2887-8) UROBILIN (test code = Normal Normal 6471509303) BILIRUBIN (test code = Negative Negative 9846857757) NITRITE (test code = Negative Negative 3491071867) LEUK SUZANNA (test code = Negative Negative 8187209798) RBC/HPF (test code = See_Comment [Autom ated message] 1222278533) The system [employer] generated this result transmitted ref erence range: 0 - 3 HP F. The reference range was not used to int erpret this result as normal/abnormal . WBC/HPF (test code = See_Comment [Autom ated message] 7508005661) The system [employer] generated this result transmitted ref erence range: 0 - 5 HP F. The reference range was not used to int erpret this result as normal/abnormal . BACTERIA (test code = Few Negative A 6108992462) SQ EPITH (test code = HPF 8941005612) Lab Interpretation (test Abnormal code = 75077-2) [facility] RockComplete Metabolic [id number] 04:27:00 Test Item Value Reference Range Interpretation Comments NA (test code = 138 mmol/L 135-145 9599841482) K (test code = 3.8 mmol/L 3.5-5 8526060015) CL (test code = 104 mmol/L 98-108 0717312918) CO2 TOTAL (test code = 26 mmol/L 23-31 5431197774) AGAP (test code = 2-16 1863787634) BUN (test code = 13 mg/dL 7-23 6404540054) GLUCOSE (test code = 75 mg/dL 70-110 4604453747) CREATININE (test code 0.90 mg/dL 0.5-1.04 = 7836327819) TOTAL BILI (test code 0.1 mg/dL 0.1-1.1 = 4084333910) CALCIUM (test code = 9.7 mg/dL 8.6-10.6 7284114570) T PROTEIN (test code = 8.1 g/dL 6.3-8.2 0347267847) ALBUMIN (test code = 4.7 g/dL 3.5-5 7459722137) ALK PHOS (test code = 48 U/L 34-122 9229334683) ALTv (test code = 15 U/L 5-35 1742-6) AST(SGOT) (test code = 22 U/L 13-40 2134625701) eGFR Calculation mL/min/1.73m2 (Non-) (test code = 3534438266) eGFR Calculation mL/min/1.73m2 () (test code = 4894186436) BRIDGET (test code = BRIDGET) Association of [...] imaging tests). [facility] with [id number] 04:16:00 Test Item Value Reference Range Interpretation Comments WBC (test code = See_Comment [Automated 2590-2) message] The sy stem which generated this [...] RDW-SD (test code = 44.7 fL 39-49.9 82365-6) RDW-CV (test code = 15.8 % 12-15.5 H 788-0) PLT (test code = See_Comment [Automated 777-3) message] The sy stem which generated this result transmitted reference range : 166 - 358 10*3/ ?L. The reference r ian was not used to interpret this result as normal/abnormal . MPV (test code = 9.5 fL 9.5-12.9 39693-0) NRBC/100 WBC (test See_Comment [Automat ed code = 7781290098) message] The system which generated this result transmitted reference range : 0.0 - 10.0 /100 WBCs. The refer ence range was not u sed to interpret th is result as normal/abnormal . NRBC x10^3 (test code <0.01 See_Comment [Auto mated = 2912922306) message] The s ystem which generated this result transmitted reference range : 10*3/?L. The reference range was not used to interpret this result as normal/abnormal . GRAN MAT (NEUT) % 47.1 % (test code = 770-8) IMM GRAN % (test code 0.30 % = 8736843177) LYMPH % (test code = 38.6 % 736-9) MONO % (test code = 9.7 % 5905-5) EOS % (test code = 3.4 % 713-8) BASO % (test code = 0.9 % 706-2) GRAN MAT x10^3(ANC) 3.19 10*3/uL 1.88-7.09 (test code = 2697790859) IMM GRAN x10^3 (test <0.03 0-0.06 code = 2119576637) LYMPH x10^3 (test code 2.61 10*3/uL 1.32-3.29 = 731-0) MONO x10^3 (test code 0.66 10*3/uL 0.33-0.92 = 742-7) EOS x10^3 (test code = 0.23 10*3/uL 0.03-0.39 711-2) BASO x10^3 (test code 0.06 10*3/uL 0.01-0.07 = 704-7) Lab Interpretation Abnormal (test code = 31849-4) [facility] RockPOCT [id number] 04:03:00 Test Item Value Reference Range Interpretation Comments POCT PREG (test code = 1605) Negative On board controls acceptable with present C Line (test code = 3574) POCT PREG LOT # (test code = 3575) [id number] POCT PREG TEST DATE (test 03/07/2021 code = 3576) Lab Interpretation (test code = Normal 41681-5) [facility] PELVIS COMPLETE WITH [id number] 23:06:02 Unremarkable ultrasound of the uterus and right ovary. Left ovary could notbe visualized Preliminary Report Dictated by Resident: Milad Chávez MD., have reviewed this study and agreewith the abovereport.EXAM: US PELVIS COMPLETE WITH TRANSVAGINAL HISTORY: 19 years -old Female with pelvic pain . LMP = 02/05/2020. n TECHNIQUE: Transabdominal and transvaginal ultrasound imaging ofthe pelviswas performed including color Doppler evaluation. [employer] Operations Engineer imageswere obtained for the record. COMPARISON: [...] with pelvic pain . LMP = 02/05/2020. [id number]: Transabdominal and transvaginal ultraso und imaging of the pelviswas performed including color Doppler evaluation. [employer] Operations Engineer imageswereobtained for the record.COMPARISON: NoneFINDINGS:Uterus: The [...] reviewed this study and agree with the abovereport.[facility]. METABOLIC PANEL (21058) 2020-02-26 22:42:00 Test Item Value Reference Range Interpretation Comments NA (test code = 138 mmol/L 135-145 7099819565) K (test code = 4.3 mmol/L 3.5-5 8962323374) CL (test code = 107 mmol/L 98-108 7468300194) CO2 TOTAL (test code = 23 mmol/L 23-31 1212443267) AGAP (test code = 2-16 9552426527) BUN (test code = 14 mg/dL 7-23 4838980383) GLUCOSE (test code = 93 mg/dL 70-110 0837684330) CREATININE (test code 0.75 mg/dL 0.5-1.04 = 2219648127) TOTAL BILI (test code 0.3 mg/dL 0.1-1.1 = 6129363523) CALCIUM (test code = 9.8 mg/dL 8.6-10.6 3321597245) T PROTEIN (test code = 7.9 g/dL 6.3-8.2 4747303732) ALBUMIN (test code = 4.7 g/dL 3.5-5 0072225485) ALK PHOS (test code = 41 U/L 34-122 1718728382) ALTv (test code = 12 U/L 5-35 1742-6) AST(SGOT) (test code = 19 U/L 13-40 6389505549) eGFR Calculation mL/min/1.73m2 (Non-) (test code = 4899335630) eGFR Calculation mL/min/1.73m2 () (test code = 0195062184) BRIDGET (test code = BRIDGET) Association of [...] or urine or abnormalities in imaging tests). [facility] RockURINALYSIS2020-07-21 22:32:00 Test Item Value Reference Range Interpretation Comments APPEARANCE (test code = Hazy Clear A 4787847737) COLOR (test code = Yellow Yellow 4008989879) PH (test code = 4.8-8.0 8053241529) SP GRAVITY (test code = 1.003-1.030 8981475438) GLU U QUAL (test code = Normal Normal 7492228518) BLOOD (test code = Negative Negative INTERFERE NCE FROM 2535226748) ASCORBIC ACID M AY CAUSE FALSE NEG ATIVE RESULT KETONES (test code = Negative Negative 9605296493) PROTEIN (test code = Negative Negative 2887-8) UROBILIN (test code = Normal Normal 3918354269) BILIRUBIN (test code = Negative Negative 5165059744) NITRITE (test code = Negative Negative 9922305253) LEUK SUZANNA (test code = Negative Negative 0844113289) RBC/HPF (test code = See_Comment [Autom ated message] 0425789006) The system [employer] generated this result transmitted ref erence range: 0 - 3 HP F. The reference range was not used to int erpret this result as normal/abnormal . WBC/HPF (test code = See_Comment [Autom ated message] 4778853960) The system [employer] generated this result transmitted ref erence range: 0 - 5 HP F. The reference range was not used to int erpret this result as normal/abnormal . BACTERIA (test code = Few Negative A 7500680556) MUCOUS (test code = Slight Negative LPF A 3178821012) SQ EPITH (test code = HPF 3271764065) Lab Interpretation (test Abnormal code = 99349-1) [facility] RockCB WITH [id number] 22:23:00 Test Item Value Reference Range Interpretation Comments WBC (test code = See_Comment [Automated 0790-2) message] The [employer] stem which generated this result transmitted reference [...] RDW-SD (test code = 42.4 fL 39-49.9 63570-3) RDW-CV (test code = 15.4 % 12-15.5 788-0) PLT (test code = See_Comment [Automated 777-3) message] The sy stem which generated this result transmitted reference range : 166 - 358 10*3/ ?L. The reference r ian was not used to interpret this result as normal/abnormal . MPV (test code = 9.4 fL 9.5-12.9 L 63184-2) NRBC/100 WBC (test See_Comment [Automat ed code = 0233732488) message] The system which generated this result transmitted reference range : 0.0 - 10.0 /100 WBCs. The refer ence range was not u sed to interpret th is result as normal/abnormal . NRBC x10^3 (test code <0.01 See_Comment [Auto mated = 6780397896) message] The s ystem which generated this result transmitted reference range : 10*3/?L. The reference range was not used to interpret this result as normal/abnormal . GRAN MAT (NEUT) % 57.4 % (test code = 770-8) IMM GRAN % (test code 0.20 % = 8287410378) LYMPH % (test code = 27.8 % 736-9) MONO % (test code = 10.2 % 5905-5) EOS % (test code = 3.4 % 713-8) BASO % (test code = 1.0 % 706-2) GRAN MAT x10^3(ANC) 3.38 10*3/uL 1.88-7.09 (test code = 7417875343) IMM GRAN x10^3 (test <0.03 0-0.06 code = 3858285364) LYMPH x10^3 (test code 1.64 10*3/uL 1.32-3.29 = 731-0) MONO x10^3 (test code 0.60 10*3/uL 0.33-0.92 = 742-7) EOS x10^3 (test code = 0.20 10*3/uL 0.03-0.39 711-2) BASO x10^3 (test code 0.06 10*3/uL 0.01-0.07 = 704-7) Lab Interpretation Abnormal (test code = 83263-1) [facility] acute hospital [id number] 22:12:00 Test Item Value Reference Range Interpretation Comments POCT PREG (test code = 1605) negative On board controls acceptable with C present Line (test code = 3574) Lab Interpretation (test code = Normal 82517-6) General acute hospital [id number] 21:24:00 Test Item Value Reference Range Interpretation Comments POCT PREG (test code = 1605) Negative On board controls acceptable with C Yes Line (test code = 3574) POCT PREG LOT # (test code = 3575) POCT PREG TEST DATE (test code = 3576) General acute hospital [id number] 21:24:00 Test Item Value Reference Range Interpretation Comments POCT PREG (test code = 1605) Negative On board controls acceptable with C Yes Line (test code = 3574) POCT PREG LOT # (test code = 3575) POCT PREG TEST DATE (test code = 3576) General acute hospital [id number] 20:36:00 Test Item Value Reference Range Interpretation Comments POCT PREG (test code = 1605) Negative On board controls acceptable with C Yes Line (test code = 3574) POCT PREG LOT # (test code = 3575) POCT PREG TEST DATE (test code = 3576) General acute hospital [id number] 20:36:00 Test Item Value Reference Range Interpretation Comments POCT PREG (test code = 1605) Negative On board controls acceptable with C Yes Line (test code = 3574) POCT PREG LOT # (test code = 3575) POCT PREG TEST DATE (test code = 3576) [facility] RockUR[facility] [id number] 12:23:00 Test Item Value Reference Range Interpretation Comments URINE CULTURE (test > 100,000 CFU/mL mixed code = 630-4) aerobic organisms - suggests endogenous microbial contamination [facility] [id number] 12:23:00 Test Item Value Reference Range Interpretation Comments URINE CULTURE (test > 100,000 CFU/mL mixed code = 630-4) aerobic organisms - suggests endogenous microbial contamination [facility] RockANTI-D R/O [id number] 10:48:29 Test Item Value Reference Range Interpretation Comments ANTIBODY (test Anti-D Probable RhIg recei osiel code = 683) RhIg 03/29/19.Perform ed at [facility] Blood [address] s [address]Vqho Free: [phone] A No. [id number] [facility] RockANTI-D R/O [id number] 10:48:29 Test Item Value Reference Range Interpretation Comments ANTIBODY (test Anti-D Probable RhIg recei osiel code = 683) RhIg 03/29/19.Perform ed at [facility] Blood [address] s [address]Lydh Free: [phone] A No. [id number] [facility] RockPRENATAL WORKUP, BLOOD [id number] 08:48:27 Test Item Value Reference Range Interpretation Comments ABO & RH (test code B NEGATIVE Performe d at [facility] = 20) Laboratory Serv [facility] Blood Bank[address] [place] [address] s [address]Gmkd Free: [phone] A No. [id number] IAT (test code = Positive Performed a t [facility] 1185) Laboratory Serv [facility] Blood [facility]3 [address] [facility] [address]Fsch Free: [phone] A No. [id number] [facility] RockPRENATAL WORKUP, BLOOD [id number] 08:48:27 Test Item Value Reference Range Interpretation Comments ABO & RH (test code B NEGATIVE Performe d at [facility] = 20) Laboratory Serv [facility] Blood [facility]3 [facility] [address]Kewy Free: [phone] A No. [id number] IAT (test code = Positive Performed a t [facility] 1185) Laboratory Serv [facility] Blood Bank3 [facility] [address]Vjul Free: [phone] A No. [id number] [facility] RockPOVT URINALYSIS W SPECIFIC [id number] 18:15:00 Test Item Value Reference Range Interpretation [...] POCT U APPEAR (test code = 3267) [facility]PO[facility] UR[facility] W SPECIFIC [id number] 18:15:00 Test Item Value Reference Range Interpretation [...] POCT U APPEAR (test code = 3267) [facility] RockPOVT URINALYSIS W SPECIFIC [id number] 18:15:00 Test Item Value Reference Range Interpretation [...] POCT U APPEAR (test code = 3267) [facility] ONLY - SYPHILIS [id number] 14:40:00 Test Item Value Reference Range Interpretation Comments Syphilis IgG/IgM (test Non-reactive Non-reactive code = 48750-2) BRIDGET (test code = BRIDGET) Non-reactive - No serologic evidence of T. pallidum infection. Cannot exclude incubating or early syphilis. Submit a second specimen in 2-4 weeks if syphilis is clinically suspected.Equivocal - Further testing to follow.Reactive - Further testing to follow. Lab Interpretation (test Normal code = 71874-5) [facility] /2 AG-AB WITH [id number] 11:17:00 Test Item Value Reference Range Interpretation Comments HIV Negative Negative Semi-quantitative (test code = 75265-1) BRIDGET (test code = Non-reactive for HIV-1 BRIDGET) antigen and HIV-1/HIV-2 antibodies.?No laboratory evidence of HIV infection.?Repeat in 2-4 weeks if acute HIV infection is suspected. [facility] [id number] 18:48:00 Test Item Value Reference Range Interpretation [...] POCT U APPEAR (test code = 3267) [facility] SPECIFIC [id number] 14:59:00 Test Item Value Reference Range Interpretation [...] POCT U APPEAR (test code = 3267) [facility] Notes Date/Time Note Provider Source 2022-12-24 12:23:00-00:00 HCANW [facility] ([facility]) Med Order Sheet REPORT #: [id number] REPORT STATUS: Signed DATE: 12/24/22 TIME: 1222 PATIENT: AMANUEL LOTT UNIT #: [id number] ROOM #: BED: : 00 AGE: 22 SEX: F ATTEND: Dagoberto Galan MD ADM AUTHOR: Renu Galan MD ATTENTION *EDITS and/or ADDENDA must be made in Patient Ke eper for this note. * * Edits and ammendments [facility] are not visible * * in Patient Keeper or the legal medical record (HPF). * Discharge Medication Reconciliation DISCHARGE MEDICATION LIST Sertraline Tab (Zoloft Tab) Dose: 50 MG PO QAM Hosp: HYDROcod/APAP 5/325 Tab ([place] 5/325 Tab) Dose: 1 TAB PO Q4H [...] * * Edits and ammendments [facility] are [facility] * * in Patient Keeper or the legal medical record (HPF). * [facility] #: [id number] END OF REPORT 2022-12-24 12:23:00-00:00 [id number] [address] PATIENT NAME: AMANUEL LOTT ADMIT DATE: 12/24/22 ACCOUNT NO: [id number] ROOM NO: AGE: 22 REPORT TYPE: OPERATIVE REPORT SEX: F ADMITTING PHYSICIAN: ATTENDING PHYSICIAN:Renu Galan MD OPERATION DATE: 12/24/2022 PREOPERATIVE DIAGNOSIS: Symptomatic gallstones. POSTOPERATIVE DIAGNOSIS: Symptomatic gallstones. PROCEDURE PERFORMED: Laparoscopic cholecystectom y. SURGEON: Renu Galan MD MINE FOREMAN: ANESTHESIA: General with local. ESTIMATED BLOOD LOSS: [...] Date Transcribed: 12/24/2022 12:31:42 LEANNE/JULIETA Receipt ID: [id number] Authenticated by Renu Galan MD On 023 03:37:58 PM Electronically Signed by Renu Galan MD on 0 12/25/22 at 0337 PATIENT NAME AMANUEL LOTT 9
[2023-01-14 12:17] LABS: Absolute Lymphocytes (CBC) 0.2 K/uL (0.7-4.9); Hematocrit 40.2 % (36.0-45.0); Lymphocytes % 2.8 % (15.3-44.8); MCV 80.5 fL (80-100); MPV 7.4 fL (7.6-11.3); RBC Red Blood Cell Count 4.99 M/uL (3.86-4.86)
[2023-01-14 12:35] LABS: Albumin 5.1 g/dL (3.4-5.0); Bilirubin Total 0.5 mg/dL (0.2-1.0); Potassium 4.1 mEq/L (3.5-5.1); Protein, Total 9.2 g/dL (6.4-8.2)
[2023-01-14 12:35] LABS: Specific Gravity >= 1.030 (1.005-1.030); Urine Bilirubin 2+ (Negative); Urine Blood Negative (Negative); Urine Clarity Clear (Clear); Urine Color Yellow (Yellow); Urine Glucose Negative (Negative); Urine Protein 2+ (Negative); Urine Urobilinogen 0.2 mg/dL (0.2-1.0); Urine pH 5.5 (5.0-7.0)
[2023-01-14 12:37] LABS: Specific Gravity > 1.030 (1.005-1.030)
[2023-01-14 12:37] LABS: Urine Bacteria 20-50 /HPF (<20); Urine RBC <5 /HPF (None Seen)
--- NOTE | 2023-01-14 13:21 | RAD REPORT ---
EXAM DESCRIPTION: CT - Abdomen Pelvis W Contrast - 01/14/2023 12:53 pm CLINICAL HISTORY: Abdominal pain COMPARISON: Dec 30 1022 TECHNIQUE: Computed axial tomography of the abdomen pelvis was obtained. 100 cc Isovue-300 was admin istered intravenously. Oral contrast was not requested which limits evaluation of bowel and appendix All CT scans are performed using dose optimization technique as appropriate and may include automated exposure control or mA/KV adjustment according to patient size. FINDINGS: The liver, spleen, pancreas, adrenal and kidneys appear unremarkable. There is no evidence of diverticulitis. Cholecystectomy 2 centimeter left ovarian cyst with negligible free fluid Fluid within nondilated small bowel IMPRESSION: 2 centimeter left ovarian cyst with negligible free fluid Fluid within nondilated small bowel may indicate an enteritis
[2023-01-14 13:35] LABS: Blood Morphology Comment NOT SEEN (NOT SEEN); Platelet Estimate ADEQ; White Blood Cell Scan OK (OK)
[2023-01-14] MEDS ORDERED: Ringers Lactate 1,000 ML IV ONE (13:36)
[2023-01-14] MEDS ORDERED: ONDANSETRON 4 MG/2 ML VIAL ONE (13:36)
--- NOTE | 2023-01-14 15:16 | ER ---
Nurse's Notes [facility] Name: Jazmin Lott Age: 22 yrs Sex: Female : 2000 Arrival Date: 01/14/2023 Time: 11:25 Bed DIS1 Private MD: Diagnosis: Vomiting;Diarrhea, unspecified Presentation: 01/14 11:36 Chief complaint: Patient states: N/V/D that began yesterday. HX of cholecystectomy 3 ss weeks ago. Coronavirus screen: Client denies travel out of the [place] in the last 14 days. Ebola Screen: Patient denies exposure to infectious person. Patient denies travel to an Ebola-affected area in the 21 days before illness onset. Initial Sepsis Screen: Does the patient meet any 2 criteria? No. Patient's initial sepsis screen is negative. Does the patient have a suspected source of infection? No. Patient's initial sepsis screen is negative. Risk Assessment: Do you want to hurt yourself or someone else? Patient reports no desire to harm self or others. Onset of symptoms was January 13, 2023. 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 - Social history:: Smoking status: Reported history of juuling and/or vaping. Screenin:43 [facility] ED Fall Risk Assessment (Adult) History of falling in the last 3 months, ss including since admission No falls in past 3 months (0 pts). Abuse screen: Denies threats or abuse. Denies injuries from another. Nutritional screening: No deficits noted. Tuberculosis screening: Never had TB. Assessment: 14:43 Reassessment: Pt is resting comfortably at this time. Eyes closed. RR even and ss unlabored. Vital Signs: 11:36 BP 107 / 70; Pulse 91; Resp 14; Temp 98.5(TE); Pulse Ox 100% on R/A; Weight 77.11 kg; ss Height 5 ft. 6 in. ; Pain 3; 11:36 Body Mass Index 27.44 (77.11 kg, 167.64 cm) ss 11:36 Pain Scale: Adult ss ED Course: 11:27 Patient arrived in ED. im 11:31 Riley Bello PA is PHCP. jmm 11:31 Uli Rolle MD is Attending Physician. jmm 11:38 Triage completed. ss 11:38 Arm band placed on left wrist. ss 11:40 Attending Physician role handed off by Uli Rolle MD ms3 11:40 Torrey Sanchez DO is Attending Physician. ms3 11:42 Riley Bello PA is PHCP. jmm 12:23 Inserted saline lock: 20 gauge 24 gauge antecubital area, using aseptic technique. zm Blood collected. 12:23 Initial lab(s) drawn, by ga, sent to lab. zm 12:23 Urine collected: clean catch specimen, clear. zm 12:24 PREGU Sent. zm 12:24 CMP Sent. zm 12:24 Lipase Sent. zm 12:55 CT Abd/Pelvis - IV Contrast Only In Process Unspecified. EDMS 14:43 Mavis Appiah, RN is Primary Nurse. ss 14:43 Patient has correct armband on for positive identification. ss 15:45 No provider procedures requiring assistance completed. IV discontinued, intact, ss bleeding controlled, No redness/swelling at site. Pressure dressing applied. Administered Medications: 13:33 Drug: Lactated Ringers Solution IV 1000 ml Route: IV; Rate: 1000 bolus; Site: right ld1 antecubital; 14:44 Follow up: IV Status: Completed infusion; IV Intake: 1000ml ss 13:33 Drug: Ondansetron IVP 4 mg Route: IVP; Site: right antecubital; ld1 14:45 Follow up: Response: No adverse reaction ss Medication: 14:43 VIS not applicable for this client. ss Intake: 14:44 IV: 1000ml; Total: 1000ml. ss Outcome: 15:16 Discharge ordered by . jmm 15:45 Discharged to home ambulatory. ss 15:45 Condition: good 15:45 Discharge instructions given to patient, Instructed on discharge instructions, follow up and referral plans. medication usage, Demonstrated understanding of instructions, follow-up care, medications, Prescriptions given X 2. 15:45 Patient left the ED. Signatures: Dispatcher [employer] EDAK Riley Bello PA PA jmm Blanchard, Shelby, RN RN Torrey Sanchez DO DO ms3 Crista Sanchez, RN RN ld1 Pat Gr Isabel Coronel Corrections: (The following items were deleted from the chart) 12:38 12:24 Urinalysis+U.LAB.BRZ drawn and sent. [facility] 14:43 No provider procedures requiring assistance completed. [facility] 14:43 Patient did not have IV access during this emergency room visit. ss
--- NOTE | 2023-01-14 15:16 | EDPHYS ---
Physician Documentation [facility] Name: Jazmin Lott Age: 22 yrs Sex: Female : 2000 Arrival Date: 01/14/2023 Time: 11:25 Bed DIS1 Private MD: ED Physician Torrey Sanchez HPI: 01/14 15:12 This 22 yrs old Female presents to ER via Ambulatory with complaints of jmm Vomiting/Diarrhea. 15:12 The patient presents to the emergency department with nausea, vomiting, diarrhea. jmm Onset: The symptoms/episode began/occurred gradually. Possible causes: unknown. The symptoms are aggravated by nothing. The symptoms are alleviated by nothing. Associated signs and symptoms: Pertinent negatives:. This is a 22 year old female with a hsitory of anxeity, s/p recent cholecystectomy that presents to the ED with complaints of generalized abdominal pain, vomiting and diarrhea. Patient states she has been able to tolerate p.o.. 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 - Social history:: Smoking status: Reported history of juuling and/or vaping. ROS: 15:12 Constitutional: Negative for fever, chills, and weight loss, Cardiovascular: Negative jmm for chest pain, palpitations, and edema, Respiratory: Negative for shortness of breath, cough, wheezing, and pleuritic chest pain. 15:12 Abdomen/GI: Positive for abdominal pain, nausea and vomiting, diarrhea. 15:12 All other systems are negative. Exam: 15:12 Constitutional: This is a well developed, well nourished patient who is awake, alert, jmm and in no acute distress. Head/Face: atraumatic. Eyes: EOMI, no conjunctival erythema appreciated ENT: Moist Mucus Membranes Neck: Trachea midline, Supple Chest/axilla: Normal chest wall appearance and motion. Cardiovascular: Regular rate and rhythm. No edema appreciated Respiratory: Normal respirations, no respiratory distress appreciated Abdomen/GI: Non distended Back: Normal ROM Skin: General appearance color normal MS/ Extremity: Moves all extremities, no obvious deformities appreciated, no edema noted to the lower extremities Neuro: Awake and alert Psych: Behavior is normal, Mood is normal, Patient is cooperative and pleasant Vital Signs: 11:36 BP 107 / 70; Pulse 91; Resp 14; Temp 98.5(TE); Pulse Ox 100% on R/A; Weight 77.11 kg; ss Height 5 ft. 6 in. ; Pain 3; 11:36 Body Mass Index 27.44 (77.11 kg, 167.64 cm) 11:36 Pain Scale: Adult ss MDM: 11:42 Patient medically screened. [facility] 15:15 Differential diagnosis: Nonspecific abd pain, gastritis, viral gastroenteritis, m gastroenteritis. Data reviewed: vital signs, nurses notes, lab test result(s), radiologic studies, CT scan. I considered the following discharge prescriptions or medication management in the emergency department Medications were administered in the Emergency Department. See MAR. Counseling: I had a detailed discussion with the patient and/or guardian regarding: the historical points, exam findings, and any diagnostic results supporting the discharge/admit diagnosis, lab results, radiology results, the need for outpatient follow up, to return to the emergency department if symptoms worsen or persist or if there are any questions or concerns that arise at home. 01/14 11:43 Order name: CBC with Diff; Complete Time: 13:35 [facility] 01/14 11:43 Order name: CMP; Complete Time: 12:40 [facility] 01/14 11:43 Order name: Lipase; Complete Time: 12:40 [facility] 01/14 11:43 Order name: PREGU; Complete Time: 12:40 [facility] 01/14 12:35 Order name: Urinalysis w/ reflexes; Complete Time: 12:40 [facility] 01/14 13:35 Order name: CBC Smear Scan; Complete Time: 13:35 [facility] 01/14 12:41 Order name: CT Abd/Pelvis - IV Contrast Only; Complete Time: 13:28 [facility] 01/14 11:43 Order name: IV Saline Lock; Complete Time: 12:24 [facility] 01/14 11:43 Order name: Labs collected and sent; Complete Time: 12:24 [facility] 01/14 14:49 Order name: PO challenge; Complete Time: 14:59 jmm Administered Medications: 13:33 Drug: Lactated Ringers Solution IV 1000 ml Route: IV; Rate: 1000 bolus; Site: right ld1 antecubital; 14:44 Follow up: IV Status: Completed infusion; IV Intake: 1000ml ss 13:33 Drug: Ondansetron IVP 4 mg Route: IVP; Site: right antecubital; ld1 14:45 Follow up: Response: No adverse reaction ss Disposition: 20:59 Co-signature as Attending Physician, Torrey Sanchez DO I was immediately available on-site ms3 in the Emergency Department for consultation in the care of the patient. Disposition Summary: 01/14/23 15:16 Discharge Ordered Location: Home [facility] Condition: Stable [facility] Diagnosis - Vomiting jmm - Diarrhea, unspecified jmm Followup: [facility] - With: Private Physician - When: 2 - 3 days - Reason: Recheck today's complaints, Continuance of care, Re-evaluation by your physician Discharge Instructions: - Discharge Summary Sheet jm - Diarrhea, Adult jm - Vomiting, Adult m Forms: - Medication Reconciliation Form [facility] - Thank You Letter [facility] - Antibiotic Education [facility] - Prescription Opioid Use [facility] Prescriptions: - ondansetron 4 mg Oral Tablet,disintegrating - take 1 tablet by ORAL route every 4 hours As needed; 30 tablet; Refills: 0, [facility] Product Selection Permitted - dicyclomine 20 mg Oral Tablet - take 1 tablet by ORAL route every 4-6 hours As needed; 30 tablet; Refills: 0, [facility] Product Selection Permitted Signatures: Dispatcher [employer] EDGA Riley Bello PA PA [facility] Mavis Gruber RN RN Torrey Sanchez DO DO ms3 Crista Sanchez RN RN ld1 Corrections: (The following items were deleted from the chart) 12:38 11:43 Urinalysis+U.LAB.BRZ ordered. EDGA EDMS
[2023-01-14 16:11] VITALS: BP 107/70; TEMP 98.5; O2SAT 100
== END 2023-01-14 15:45 | disposition home or self-care (01) ==
LOC: ER 11:25
DX: R11.10 Vomiting, unspecified (principal); R19.7 Diarrhea, unspecified; F41.9 Anxiety disorder, unspecified; Z90.49 Acquired absence of other specified parts of digestive tract; Z88.1 Allergy status to other antibiotic agents
CPT/HCPCS: 96361; 85025; 81001; 36415; 81025; 83690; 80053; 74177; 96374; 99284; Q9967; J2405; J7120

== ENCOUNTER 2023-07-16 03:19 | Emergency (ER) | payer OTHER, SELFPAY ==
--- OUTSIDE RECORDS SUMMARY | 2023-07-16 03:37 | XMS REPORT | Continuity of Care Document ---
Author Name Unknown Address [address] [place] [address] [facility] Address 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 Role Phone Rhonda Davalos Primary Care Physician [phone] CHARI PLASENCIA Attending Clinician Unav ailRenu Grubbs Attending Clinician Unavailable SAMIR BAIRD Attending Clinician Unavailable Samir Baird MD Attending Clinician [phone] Doctor Unassigned, [place] Attending Clinician U navaileulalia Centeno, Daryn-chp Nurse Attending Clinician Unava ilable Molina Oviedo Attending Clinician + MOLIAN PAVON Attending Clinician Unavail able AMANDA BAHENA Attending Clinician Jacquelyn Mtz MD Attending Clinicia n HERON HADLEY Attending Clinician Unavailable Jomar PAYNE, Heron Saba Attending Clinician [phone] Wyatt Cool DO Attending Clinician + [phone] Alessandro Kruse MD Attending Clinicia n Miah John DO Attending Clinician + [phone] Risk, Itw-Fxksm-Qv/High Attending Clinician Unalukas Doran [facility] Marilu Kaur Attending Clinician [phone] Indra ESCOBAR, Cholo Saba Attending Clinician [phone] Eduardo PAYNE, Evangelist Attending Clinician [phone] Ultrasound, Ang-Mfm Attending Clinician Unavaila lloyd Pettit MD, Gerardo Kaur Attending Clinician + [phone] Clara Petit MD Attending Clinician + [phone] GERARDO PETTIT Attending Clinician [facility] arie Knutson MD, Magdy Millard Attending Clinician [phone] Alina Valle MD, Shine Attending Clinician + Rigo Petit DO Attending Clinician [phone], Pea[facility] Room Attending Clinician Unavailab bree Ochoa, Pea-Rmchp Attending Clinician Unavailable [facility], Tennille Kaur Attending Clinician + Jose ESCOBAR, Bella Millard Attending Clinician + [phone] BELLA BLANCO Attending Clinician Unavailab bree BARRAGANP, Lenin Attending Clinician [phone] Evangelist Schulz Attending Clinician + [phone] Wero PAYNE, Bushra España Attending Clinician [phone] Jess Friend MD Attending Clinician [phone] Rahul BARRAGANP, Amanda Richards Attending Clinician [phone] Faculty, Daryn Celisnuvia Mfm Attending Clinician Unava EVANGELIST Velarde Admitting Clinician Unavailable Physician, No Primary or Family Admitting Clinic ernesto Unavailable HERON HADLEY Admitting Clinician Unavailable Heron Hadley MD Admitting Clinician Evangelist Clark MD Admitting Clinician Jess Friend MD Admitting Clinician Payers Payer Name Policy Type Policy Number Effective Date Expirati on Date Source [facility] [id number] 2019 00:00:00 [place]ICA[place] [id number] 2019 00:00:00 Problems Condition Name Condition Details Condition Category Status Onset Date Resolution Date Last Treatment Date Treating Clinician Comments Source 38 weeks gestation of 38 weeks gestation of Disease Active 8- 00:00: 00 [facility] Labor without complicati on Labor without complicati on Disease Active 04-07 00:00: 00 [facility] H/O delivery, currently , third trimester H/O delivery, currently , third trimester Disease Active 8-18 00:00: 00 [facility] Rh negative state in antepartum period Rh negative state in antepartum period Disease Active 6-23 00:00: 00 [facility] Anemia of mother in , antepartum Anemia of mother in , antepartum Disease Active 6-11 00:00: 00 [facility] Anemia of mother in , antepartum Anemia of mother in , antepartum Disease Active 6-11 00:00: 00 [facility] Nausea and vomiting during Nausea and vomiting during Disease Active 2-10 00:00: 00 [facility] Supervisio n of high-risk Supervisio n of high-risk Disease Active 1-13 00:00: 00 [facility] Multiparit y Multiparit y Disease Active 1-13 00:00: 00 [facility] History of delivery History of delivery Disease Active 1-13 00:00: 00 [facility] Pain pelvic Pain pelvic Disease Active 2020-0 8-25 00:00: 00 [facility] Encounter for IUD removal Encounter for IUD removal Disease Active 20200 2-28 00:00: 00 [facility] Other general counseling and advice for contracept farhat management Other general counseling and advice for contracept farhat management Disease Active 20200 2-13 00:00: 00 [facility] (spontaneo us vaginal delivery) (spontaneo us vaginal delivery) Disease Active 2018-08 00:00: 00 [facility] Single live Single live Disease Active 2018-08 00:00: 00 [facility] Anemia, Anemia, Disease Active 2018-08 00:00: 00 [facility] Obesity (BMI 30-39.9) Obesity (BMI 30-39.9) Disease Active 2018-08 00:00: 00 [facility] 38 weeks gestation of 38 weeks gestation of Disease Active 2018-08 00:00: 00 [facility] Obesity in Obesity in Disease Active 2018-08 00:00: 00 [facility] Supervisio n of high-risk Supervisio n of high-risk Disease Active 2018-08 0-29 00:00: 00 [facility] Multiparit y Multiparit y Disease Active 2018-08 0-29 00:00: 00 [facility] Anemia of mother in , antepartum Anemia of mother in , antepartum Disease Active 2018-08 0-17 00:00: 00 Overview: Verify if patient is taking iron/vit/ pnv on next visit [facility] Vaginal bleeding during Vaginal bleeding during Disease Active 20190 9-10 00:00: 00 [facility] Supervisio n of high-risk Supervisio n of high-risk Disease Active 2019 7-16 00:00: 00 [facility] Round ligament pain Round ligament pain Disease Active 2019 7-16 00:00: 00 [facility] Pyelectasi s Pyelectasi s Disease Active 01-30 00:00: 00 Overview: Left and right pyelectas is noted on usg [facility] Rh negative state in antepartum period Rh negative state in antepartum period Disease Active 10-24 00:00: 00 Overview: Will need rhogam at 28 weeks [facility] Tobacco use Tobacco use Disease Active 10-20 00:00: 00 Overview: Quit with [facility] Tobacco use Tobacco use Disease Active 10-20 00:00: 00 Overview: Quit with [facility] Tobacco use in Tobacco use in Disease Active 10-20 00:00: 00 Overview: Formattin g of this note might be different from the original. Reports 1pk/day up until 3 days ago, reports quit [facility] History of delivery History of delivery Disease Active 10-20 00:00: 00 Overview: Delivery at 35 weeks [facility] Other depression Other depression Disease Active 12-19 00:00: 00 [facility] Allergies, Adverse Reactions, Alerts Allergy Name Allergy Type Status Severity Reaction(s) Onset Date Inactive Date Treating Clinician Comments Source doxycycl ine DA Active U NAUSEA/VOMIT ING; DIZZINESS 12-23 00:00: 00 [facility] are [facility] Doxycycl ine Propensi ty to adverse reaction s Active Nausea and/or Vomiting 03-15 00:00: 00 [facility] DOXYCYCL INE DRUG INGREDI Active N/V 03-15 00:00: 00 [facility] NO KNOWN ALLERGIE S Drug Class Active [facility] Social History Social Habit Start Date Stop Date Quantity Comments Source ASSERTION 2020-07-28 00:00:00 [facility] Exposure to SARS-CoV-2 (event) 2022-12-13 00:00:00 2022-12-23 00:18:00 Not sure [facility] Alcohol intake 2020-09-17 00:00:00 2020-09-17 00:00:00 Current non-drinker of alcohol (finding) [facility] Cigarettes smoked current (pack per day) - Reported 2020-08-20 00:00:00 2020-08-20 00:00:00 [facility] Tobacco use and exposure 2020-08-20 00:00:00 2020-08-20 00:00:00 Smokeless tobacco non-user [facility] History of Social function 2020-08-20 00:00:00 2020-08-20 00:00:00 [facility] Tobacco Comment 2018-10-20 00:00:00 2018-10-20 00:00:00 was smoking 1 cigarrette a day [facility] History of tobacco use 2020-08-17 00:00:00 2018-10-06 00:00:00 Cigarette Smoker [facility] Sex Assigned At 2000 00:00:00 2000 00:00:00 [facility] Smoking Status Start Date Stop Date Source Ex-smoker 2020-08-20 00:00:00 2020-08-20 00:00[facility]00 [facility] Current every day smoker 2020-04-01 00:00:00 [facility] Medications Ordered Medication Name Filled Medication Name Start Date Stop Date Current Medication? Ordering Clinician Indication Dosage Frequency Signature (SIG) Comments Components Source ketorolac (TORADOL) injection 30 mg 12-23 07:00: 00 12-23 06:07 :00 No 30mg 30 mg, Slow IV Push, ONCE, 1 dose, On Tanja 12/23/22 at 0200, Routine [facility] sodium chloride (NS) injection 5 mL 12-23 05:27: 30 Yes 5mL 5 mL, Intravenou s, PRN, Starting on Tanja 12/23/22 at 0027, Until Discontinu ed, Routine, IV line flushing [facility] dicyclomine 20 mg tablet 12-23 00:00: 00 Yes [id number] 20mg Take 1 tablet by mouth every 6 (six) hours as needed for Abdominal pain. [facility] ketorolac 10 mg tablet 12-23 00:00: 00 Yes [id number] 10mg Take 1 tablet by mouth every 6 (six) hours as needed for Pain (scale 7-10). [facility] ondansetron (ZOFRAN) 4 mg tablet -18 00:00: 00 Yes [id number] 4mg Take 1 tablet by mouth every 8 (eight) hours as needed for Nausea and Vomiting (N/V). [facility] sulfamethox azole-trime thoprim 400-80 mg per tablet 04-14 00:00: 00 04-20 04:59 :00 No [id number] 1{tbl} Take 1 tablet by mouth 2 (two) times daily for 5 days. [facility] sulfamethox azole-trime thoprim 400-80 mg per tablet 04-14 00:00: 00 04-20 04:59 :00 No [id number] 1{tbl} Take 1 tablet by mouth 2 (two) times daily for 5 days. [facility] sulfamethox azole-trime thoprim 400-80 mg per tablet 04-14 00:00: 00 04-20 04:59 :00 No [id number] 1{tbl} Take 1 tablet by mouth 2 (two) times daily for 5 days. [facility] sulfamethox azole-trime thoprim 400-80 mg per tablet 04-14 00:00: 00 04-20 04:59 :00 No [id number] 1{tbl} Take 1 tablet by mouth 2 (two) times daily for 5 days. [facility] sulfamethox azole-trime thoprim 400-80 mg per tablet 04-14 00:00: 00 04-20 04:59 :00 No [id number] 1{tbl} Take 1 tablet by mouth 2 (two) times daily for 5 days. [facility] sulfamethox azole-trime thoprim 400-80 mg per tablet 04-14 00:00: 00 04-20 04:59 :00 No [id number] 1{tbl} Take 1 tablet by mouth 2 (two) times daily for 5 days. [facility] docusate calcium 240 mg capsule 04-09 00:00: 00 Yes [id number] 240mg Take 1 capsule by mouth once daily as needed for Constipati on. [facility] vitamin w/FA tablet 04-09 00:00: 00 Yes [id number] 1{tbl} Take 1 tablet by mouth daily. [facility] ferrous sulfate 325 mg (65 mg iron) tablet 04-09 00:00: 00 Yes [id number] 325mg Take 1 tablet by mouth 2 (two) times daily. [facility] ibuprofen 600 mg tablet 04-09 00:00: 00 Yes [id number] 600mg Take 1 tablet by mouth every 6 (six) hours as needed (Pain). Take with food or milk. [facility] norethindro ne 0.35 mg tablet 04-09 00:00: 00 Yes [id number] .35mg Take 1 tablet by mouth daily. [facility] docusate calcium 240 mg capsule 04-09 00:00: 00 Yes [id number] 240mg Take 1 capsule by mouth once daily as needed for Constipati on. [facility] vitamin w/FA tablet 04-09 00:00: 00 Yes [id number] 1{tbl} Take 1 tablet by mouth daily. [facility] ferrous sulfate 325 mg (65 mg iron) tablet 04-09 00:00: 00 Yes [id number] 325mg Take 1 tablet by mouth 2 (two) times daily. [facility] ibuprofen 600 mg tablet 04-09 00:00: 00 Yes [id number] 600mg Take 1 tablet by mouth every 6 (six) hours as needed (Pain). Take with food or milk. [facility] norethindro ne 0.35 mg tablet 04-09 00:00: 00 Yes [id number] .35mg Take 1 tablet by mouth daily. [facility] docusate calcium 240 mg capsule 04-09 00:00: 00 Yes [id number] 240mg Take 1 capsule by mouth once daily as needed for Constipati on. [facility] vitamin w/FA tablet 04-09 00:00: 00 Yes [id number] 1{tbl} Take 1 tablet by mouth daily. [facility] ferrous sulfate 325 mg (65 mg iron) tablet 04-09 00:00: 00 Yes [id number] 325mg Take 1 tablet by mouth 2 (two) times daily. [facility] ibuprofen 600 mg tablet 04-09 00:00: 00 Yes [id number] 600mg Take 1 tablet by mouth every 6 (six) hours as needed (Pain). Take with food or milk. [facility] norethindro ne 0.35 mg tablet 04-09 00:00: 00 Yes [id number] .35mg Take 1 tablet by mouth daily. [facility] docusate calcium 240 mg capsule 04-09 00:00: 00 Yes [id number] 240mg Take 1 capsule by mouth once daily as needed for Constipati on. [facility] vitamin w/FA tablet 04-09 00:00: 00 Yes [id number] 1{tbl} Take 1 tablet by mouth daily. [facility] ferrous sulfate 325 mg (65 mg iron) tablet 04-09 00:00: 00 Yes [id number] 325mg Take 1 tablet by mouth 2 (two) times daily. [facility] ibuprofen 600 mg tablet 04-09 00:00: 00 Yes [id number] 600mg Take 1 tablet by mouth every 6 (six) hours as needed (Pain). Take with food or milk. [facility] norethindro ne 0.35 mg tablet 04-09 00:00: 00 Yes [id number] .35mg Take 1 tablet by mouth daily. [facility] docusate calcium 240 mg capsule 04-09 00:00: 00 Yes [id number] 240mg Take 1 capsule by mouth once daily as needed for Constipati on. [facility] vitamin w/FA tablet 04-09 00:00: 00 Yes [id number] 1{tbl} Take 1 tablet by mouth daily. [facility] ferrous sulfate 325 mg (65 mg iron) tablet 04-09 00:00: 00 Yes [id number] 325mg Take 1 tablet by mouth 2 (two) times daily. [facility] ibuprofen 600 mg tablet 04-09 00:00: 00 Yes [id number] 600mg Take 1 tablet by mouth every 6 (six) hours as needed (Pain). Take with food or milk. [facility] norethindro ne 0.35 mg tablet 04-09 00:00: 00 Yes [id number] .35mg Take 1 tablet by mouth daily. [facility] docusate calcium 240 mg capsule 04-09 00:00: 00 Yes [id number] 240mg Take 1 capsule by mouth once daily as needed for Constipati on. [facility] vitamin w/FA tablet 04-09 00:00: 00 Yes [id number] 1{tbl} Take 1 tablet by mouth daily. [facility] ferrous sulfate 325 mg (65 mg iron) tablet 04-09 00:00: 00 Yes [id number] 325mg Take 1 tablet by mouth 2 (two) times daily. [facility] ibuprofen 600 mg tablet 04-09 00:00: 00 Yes [id number] 600mg Take 1 tablet by mouth every 6 (six) hours as needed (Pain). Take with food or milk. [facility] norethindro ne 0.35 mg tablet 04-09 00:00: 00 Yes [id number] .35mg Take 1 tablet by mouth daily. [facility] docusate calcium 240 mg capsule 04-09 00:00: 00 Yes [id number] 240mg Take 1 capsule by mouth once daily as needed for Constipati on. [facility] vitamin w/FA tablet 04-09 00:00: 00 Yes [id number] 1{tbl} Take 1 tablet by mouth daily. [facility] ferrous sulfate 325 mg (65 mg iron) tablet 04-09 00:00: 00 Yes [id number] 325mg Take 1 tablet by mouth 2 (two) times daily. [facility] ibuprofen 600 mg tablet 04-09 00:00: 00 Yes [id number] 600mg Take 1 tablet by mouth every 6 (six) hours as needed (Pain). Take with food or milk. [facility] norethindro ne 0.35 mg tablet 04-09 00:00: 00 Yes [id number] .35mg Take 1 tablet by mouth daily. [facility] docusate calcium 240 mg capsule 04-09 00:00: 00 Yes [id number] 240mg Take 1 capsule by mouth once daily as needed for Constipati on. [facility] vitamin w/FA tablet 04-09 00:00: 00 Yes [id number] 1{tbl} Take 1 tablet by mouth daily. [facility] ferrous sulfate 325 mg (65 mg iron) tablet 04-09 00:00: 00 Yes [id number] 325mg Take 1 tablet by mouth 2 (two) times daily. [facility] ibuprofen 600 mg tablet 04-09 00:00: 00 Yes [id number] 600mg Take 1 tablet by mouth every 6 (six) hours as needed (Pain). Take with food or milk. [facility] norethindro ne 0.35 mg tablet 04-09 00:00: 00 Yes [id number] .35mg Take 1 tablet by mouth daily. [facility] docusate calcium 240 mg capsule 04-09 00:00: 00 Yes [id number] 240mg Take 1 capsule by mouth once daily as needed for Constipati on. [facility] vitamin w/FA tablet 04-09 00:00: 00 Yes [id number] 1{tbl} Take 1 tablet by mouth daily. [facility] ferrous sulfate 325 mg (65 mg iron) tablet 04-09 00:00: 00 Yes [id number] 325mg Take 1 tablet by mouth 2 (two) times daily. [facility] ibuprofen 600 mg tablet 04-09 00:00: 00 Yes [id number] 600mg Take 1 tablet by mouth every 6 (six) hours as needed (Pain). Take with food or milk. [facility] norethindro ne 0.35 mg tablet 04-09 00:00: 00 Yes [id number] .35mg Take 1 tablet by mouth daily. [facility] docusate calcium 240 mg capsule 04-09 00:00: 00 Yes [id number] 240mg Take 1 capsule by mouth once daily as needed for Constipati on. [facility] vitamin w/FA tablet 04-09 00:00: 00 Yes [id number] 1{tbl} Take 1 tablet by mouth daily. [facility] ferrous sulfate 325 mg (65 mg iron) tablet 04-09 00:00: 00 Yes [id number] 325mg Take 1 tablet by mouth 2 (two) times daily. [facility] ibuprofen 600 mg tablet 04-09 00:00: 00 Yes [id number] 600mg Take 1 tablet by mouth every 6 (six) hours as needed (Pain). Take with food or milk. [facility] norethindro ne 0.35 mg tablet 04-09 00:00: 00 Yes [id number] .35mg Take 1 tablet by mouth daily. [facility] cephALEXin 500 mg tablet 03-15 00:00: 00 03-23 04:59 :00 No [id number] 500mg Take 1 tablet by mouth 4 (four) times daily for 7 days. [facility] ferrous sulfate 325 mg (65 mg iron) tablet 01-16 00:00: 00 Yes [id number] 325mg Take 1 tablet by mouth 2 (two) times daily. [facility] ascorbic acid, vitamin C, 500 mg tablet 01-16 00:00: 00 Yes [id number] 500mg Take 1 tablet by mouth 3 (three) times daily. [facility] ferrous sulfate 325 mg (65 mg iron) tablet 01-16 00:00: 00 Yes [id number] 325mg Take 1 tablet by mouth 2 (two) times daily. [facility] ascorbic acid, vitamin C, 500 mg tablet 01-16 00:00: 00 Yes [id number] 500mg Take 1 tablet by mouth 3 (three) times daily. [facility] ferrous sulfate 325 mg (65 mg iron) tablet 01-16 00:00: 00 Yes [id number] 325mg Take 1 tablet by mouth 2 (two) times daily. [facility] ascorbic acid, vitamin C, 500 mg tablet 01-16 00:00: 00 Yes [id number] 500mg Take 1 tablet by mouth 3 (three) times daily. [facility] ferrous sulfate 325 mg (65 mg iron) tablet 01-16 00:00: 00 Yes [id number] 325mg Take 1 tablet by mouth 2 (two) times daily. [facility] ascorbic acid, vitamin C, 500 mg tablet 01-16 00:00: 00 Yes [id number] 500mg Take 1 tablet by mouth 3 (three) times daily. [facility] ferrous sulfate 325 mg (65 mg iron) tablet 01-16 00:00: 00 Yes [id number] 325mg Take 1 tablet by mouth 2 (two) times daily. [facility] ascorbic acid, vitamin C, 500 mg tablet 01-16 00:00: 00 Yes [id number] 500mg Take 1 tablet by mouth 3 (three) times daily. [facility] ferrous sulfate 325 mg (65 mg iron) tablet 01-16 00:00: 00 Yes [id number] 325mg Take 1 tablet by mouth 2 (two) times daily. [facility] ascorbic acid, vitamin C, 500 mg tablet 01-16 00:00: 00 Yes [id number] 500mg Take 1 tablet by mouth 3 (three) times daily. [facility] ferrous sulfate 325 mg (65 mg iron) tablet 01-16 00:00: 00 Yes [id number] 325mg Take 1 tablet by mouth 2 (two) times daily. [facility] ascorbic acid, vitamin C, 500 mg tablet 01-16 00:00: 00 Yes [id number] 500mg Take 1 tablet by mouth 3 (three) times daily. [facility] ferrous sulfate 325 mg (65 mg iron) tablet 01-16 00:00: 00 Yes [id number] 325mg Take 1 tablet by mouth 2 (two) times daily. [facility] ascorbic acid, vitamin C, 500 mg tablet 01-16 00:00: 00 Yes [id number] 500mg Take 1 tablet by mouth 3 (three) times daily. [facility] ferrous sulfate 325 mg (65 mg iron) tablet 01-16 00:00: 00 Yes [id number] 325mg Take 1 tablet by mouth 2 (two) times daily. [facility] ascorbic acid, vitamin C, 500 mg tablet 01-16 00:00: 00 Yes [id number] 500mg Take 1 tablet by mouth 3 (three) times daily. [facility] ferrous sulfate 325 mg (65 mg iron) tablet 01-16 00:00: 00 Yes [id number] 325mg Take 1 tablet by mouth 2 (two) times daily. [facility] ascorbic acid, vitamin C, 500 mg tablet 01-16 00:00: 00 Yes [id number] 500mg Take 1 tablet by mouth 3 (three) times daily. [facility] ferrous sulfate 325 mg (65 mg iron) tablet 01-16 00:00: 00 Yes [id number] 325mg Take 1 tablet by mouth 2 (two) times daily. [facility] ascorbic acid, vitamin C, 500 mg tablet 01-16 00:00: 00 Yes [id number] 500mg Take 1 tablet by mouth 3 (three) times daily. [facility] ascorbic acid, vitamin C, 500 mg tablet 01-16 00:00: 00 Yes [id number] 500mg Take 1 tablet by mouth 3 (three) times daily. [facility] ascorbic acid, vitamin C, 500 mg tablet 01-16 00:00: 00 Yes [id number] 500mg Take 1 tablet by mouth 3 (three) times daily. [facility] ascorbic acid, vitamin C, 500 mg tablet 01-16 00:00: 00 Yes [id number] 500mg Take 1 tablet by mouth 3 (three) times daily. [facility] ascorbic acid, vitamin C, 500 mg tablet 2020-0 11 00:00: 00 Yes [id number] 500mg Take 1 tablet by mouth 3 (three) times daily. [facility] ascorbic acid, vitamin C, 500 mg tablet 2020-0 611 00:00: 00 Yes [id number] 500mg Take 1 tablet by mouth 3 (three) times daily. [facility] ascorbic acid, vitamin C, 500 mg tablet 2020-0 611 00:00: 00 Yes [id number] 500mg Take 1 tablet by mouth 3 (three) times daily. [facility] ascorbic acid, vitamin C, 500 mg tablet 2020-0 01-16 00:00: 00 Yes [id number] 500mg Take 1 tablet by mouth 3 (three) times daily. [facility] ascorbic acid, vitamin C, 500 mg tablet 2020-0 01-16 00:00: 00 Yes [id number] 500mg Take 1 tablet by mouth 3 (three) times daily. [facility] ascorbic acid, vitamin C, 500 mg tablet 2020-0 01-16 00:00: 00 Yes [id number] 500mg Take 1 tablet by mouth 3 (three) times daily. [facility] ascorbic acid, vitamin C, 500 mg tablet 2020-0 01-16 00:00: 00 Yes [id number] 500mg Take 1 tablet by mouth 3 (three) times daily. [facility] ascorbic acid, vitamin C, 500 mg tablet 2020-0 01-16 00:00: 00 Yes [id number] 500mg Take 1 tablet by mouth 3 (three) times daily. [facility] ascorbic acid, vitamin C, 500 mg tablet 2020-0 611 00:00: 00 Yes [id number] 500mg Take 1 tablet by mouth 3 (three) times daily. [facility] ascorbic acid, vitamin C, 500 mg tablet 2020-0 6-11 00:00: 00 Yes [id number] 500mg Take 1 tablet by mouth 3 (three) times daily. [facility] ascorbic acid, vitamin C, 500 mg tablet 2020-0 6-11 00:00: 00 Yes [id number] 500mg Take 1 tablet by mouth 3 (three) times daily. [facility] ferrous sulfate 325 mg (65 mg iron) tablet 2020-0 6-11 00:00: 00 -18 00:00 :00 No [id number] 325mg Take 1 tablet by mouth 2 (two) times daily. [facility] fluticasone propionate 50 mcg/actuati on nasal spray 2020-0 5-20 00:00: 00 Yes [facility] fluticasone propionate 50 mcg/actuati on nasal spray 1-0 5-20 00:00: 00 Yes [facility] fluticasone propionate 50 mcg/actuati on nasal spray 2020-0 5-20 00:00: 00 Yes [facility] fluticasone propionate 50 mcg/actuati on nasal spray 1-0 5-20 00:00: 00 Yes [facility] fluticasone propionate 50 mcg/actuati on nasal spray 1-0 5-20 00:00: 00 Yes [facility] fluticasone propionate 50 mcg/actuati on nasal spray 1-0 5-20 00:00: 00 Yes [facility] fluticasone propionate 50 mcg/actuati on nasal spray 1-0 5-20 00:00: 00 Yes [facility] fluticasone propionate 50 mcg/actuati on nasal spray 2020-0 5-20 00:00: 00 Yes [facility] fluticasone propionate 50 mcg/actuati on nasal spray 1-0 5-20 00:00: 00 Yes [facility] fluticasone propionate 50 mcg/actuati on nasal spray 1-0 5-20 00:00: 00 Yes [facility] fluticasone propionate 50 mcg/actuati on nasal spray 1-0 5-20 00:00: 00 Yes [facility] fluticasone propionate 50 mcg/actuati on nasal spray 2020-0 5-20 00:00: 00 Yes [facility] fluticasone propionate 50 mcg/actuati on nasal spray 2020-0 5-20 00:00: 00 Yes [facility] fluticasone propionate 50 mcg/actuati on nasal spray 0 20 00:00: [address] [facility] ity [facility] fluticasone propionate 50 mcg/actuati on nasal spray 0 20 00:00: [address] [facility] ity [facility] fluticasone propionate 50 mcg/actuati on nasal spray 0 20 00:00: [address] [facility] ity [facility] HYDROXYprog est(PF)(pre g presv) (HANS) 250 mg/mL (1 mL) injection 250 mg 2020-0 11-12 19:40: [id number] [facility] ity [facility] HYDROXYprog est(PF)(pre g presv) (HANS) 250 mg/mL (1 mL) injection 250 mg 2020-0 11-12 19:40: 00 Yes [id number] 250mg 250 mg, Intramuscu lar, QWEEKLY, First dose on Tue11/12/20 at 1445, Until Discontinu ed, Routine [facility] HYDROXYprog est(PF)(pre g presv) (HANS) 250 mg/mL (1 mL) injection 250 mg 11-12 19:40: [id number] [facility] ity [facility] HYDROXYprog est(PF)(pre g presv) (HANS) 250 mg/mL (1 mL) injection 250 mg 2020-0 11-12 19:40: 00 Yes [id number] 250mg 250 mg, Intramuscu lar, QWEEKLY, First dose on Tue11/12/20 at 1445, Until Discontinu ed, Routine [facility] HYDROXYprog est(PF)(pre g presv) (HANS) 250 mg/mL (1 mL) injection 250 mg 2020-0 11-12 19:40: 00 Yes [id number] 250mg [facility] HYDROXYprog est(PF)(pre g presv) (HANS) 250 mg/mL (1 mL) injection 250 mg 2021-0 07 19:40: 00 Yes [id number] 250mg [facility] HYDROXYprog est(PF)(pre g presv) (HANS) 250 mg/mL (1 mL) injection 250 mg 2021-0 11-12 19:40: 00 Yes [id number] 250mg [facility] HYDROXYprog est(PF)(pre g presv) (HANS) 250 mg/mL (1 mL) injection 250 mg 2021-0 11-12 19:40: 00 Yes [id number] 250mg 250 mg, Intramuscu lar, QWEEKLY, First dose on Tue11/12/20 at 1445, Until Discontinu ed, [facility](PF)(pre g presv) (HANS) 250 mg/mL (1 mL) injection 250 mg 1-0 11-12 19:40: 00 Yes [id number] 250mg [facility] HYDROXYprog est(PF)(pre g presv) (HANS) 250 mg/mL (1 mL) injection 250 mg 2021-0 11-12 19:40: 00 Yes [id number] [facility](PF)(pre g presv) (HANS) 250 mg/mL (1 mL) injection 250 mg 2021-0 11-12 19:40: 00 Yes [id number] 250mg 250 mg, Intramuscu lar, QWEEKLY, First dose on Tue11/12/20 at 1445, Until Discontinu ed, [facility](PF)(pre g presv) (HANS) 250 mg/mL (1 mL) injection 250 mg 1-0 11-12 19:40: 00 Yes [id number] 250mg [facility] HYDROXYprog est(PF)(pre g presv) (HANS) 250 mg/mL (1 mL) injection 250 mg 2021-0 11-12 19:40: 00 Yes [id number] 250mg [facility] HYDROXYprog est(PF)(pre g presv) (HANS) 250 mg/mL (1 mL) injection 250 mg 2021-0 11-12 19:40: 00 Yes [id number] 250mg 250 mg, Intramuscu lar, QWEEKLY, First dose on Tue11/12/20 at 1445, Until Discontinu ed, Routine [facility] HYDROXYprog est(PF)(pre g presv) (HANS) 250 mg/mL (1 mL) injection 250 mg 2021-0 11-12 19:40: 00 Yes [id number] 250mg [facility] HYDROXYprog est(PF)(pre g presv) (HANS) 250 mg/mL (1 mL) injection 250 mg 2021-0 11-12 19:40: 00 Yes [id number] 250mg [facility] HYDROXYprog est(PF)(pre g presv) (HANS) 250 mg/mL (1 mL) injection 250 mg 2021-0 11-12 19:40: 00 Yes [id number] 250mg 250 mg, Intramuscu lar, QWEEKLY, First dose on Tue11/12/20 at 1445, Until Discontinu ed, Routine [facility] HYDROXYprog est(PF)(pre g presv) (HANS) 250 mg/mL (1 mL) injection 250 mg 2021-0 11-12 19:40: 00 Yes [id number] 250mg [facility] HYDROXYprog est(PF)(pre g presv) (HANS) 250 mg/mL (1 mL) injection 250 mg 1-0 11-12 19:40: 00 Yes [id number] 250mg [facility] HYDROXYprog est(PF)(pre g presv) (HANS) 250 mg/mL (1 mL) injection 250 mg 2021-0 11-12 19:40: 00 Yes [id number] 250mg [facility] HYDROXYprog est(PF)(pre g presv) (HANS) 250 mg/mL (1 mL) injection 250 mg 2021-0 11-12 19:40: 00 Yes [id number] 250mg 250 mg, Intramuscu lar, QWEEKLY, First dose on Tue11/12/20 at 1445, Until Discontinu ed, Routine [facility] HYDROXYprog est(PF)(pre g presv) (HANS) 250 mg/mL (1 mL) injection 250 mg 2021-0 - 19:40: 00 Yes [id number] 250mg [facility] HYDROXYprog est(PF)(pre g presv) (HANS) 250 mg/mL (1 mL) injection 250 mg 2021-0 - 19:40: 00 Yes [id number] 250mg [facility] HYDROXYprog est(PF)(pre g presv) (HANS) 250 mg/mL (1 mL) injection 250 mg 2021-0 11-12 19:40: 00 Yes [id number] 250mg 250 mg, Intramuscu lar, QWEEKLY, First dose on Tue11/12/20 at 1445, Until Discontinu ed, Routine [facility] HYDROXYprog est(PF)(pre g presv) (HANS) 250 mg/mL (1 mL) injection 250 mg 1-0 11-12 19:40: 00 Yes [id number] 250mg [facility] HYDROXYprog est(PF)(pre g presv) (HANS) 250 mg/mL (1 mL) injection 250 mg 2021-0 11-12 19:40: 00 Yes [id number] 250mg [facility] HYDROXYprog est(PF)(pre g presv) (HANS) 250 mg/mL (1 mL) injection 250 mg 2021-0 11-12 19:40: 00 Yes [id number] 250mg 250 mg, Intramuscu lar, QWEEKLY, First dose on Tue11/12/20 at 1445, Until Discontinu ed, Routine [facility] HYDROXYprog est(PF)(pre g presv) (HANS) 250 mg/mL (1 mL) injection 250 mg 2021-0 11-12 19:40: 00 Yes [id number] 250mg [facility] HYDROXYprog est(PF)(pre g presv) (HANS) 250 mg/mL (1 mL) injection 250 mg 2021-0 11-12 19:40: 00 Yes [id number] 250mg [facility] HYDROXYprog est(PF)(pre g presv) (HANS) 250 mg/mL (1 mL) injection 250 mg 2021-0 - 19:40: 00 Yes [id number] 250mg [facility] HYDROXYprog est(PF)(pre g presv) (HANS) 250 mg/mL (1 mL) injection 250 mg 2021-0 11-12 19:40: 00 Yes [id number] 250mg [facility] HYDROXYprog est(PF)(pre g presv) (HANS) 250 mg/mL (1 mL) injection 250 mg 2021-0 11-12 19:40: 00 Yes [id number] 250mg 250 mg, Intramuscu lar, QWEEKLY, First dose on Tue11/12/20 at 1445, Until Discontinu ed, Routine [facility] HYDROXYprog est(PF)(pre g presv) (HANS) 250 mg/mL (1 mL) injection 250 mg 1-0 11-12 19:40: 00 Yes [id number] 250mg [facility] HYDROXYprog est(PF)(pre g presv) (HANS) 250 mg/mL (1 mL) injection 250 mg 2020-0 11-12 19:40: 00 Yes [id number] 250mg 250 mg, Intramuscu lar, QWEEKLY, First dose on Tue11/12/20 at 1445, Until Discontinu ed, Routine [facility] HYDROXYprog est(PF)(pre g presv) (HANS) 250 mg/mL (1 mL) injection 250 mg 2020-0 11-12 19:40: 00 Yes [id number] 250mg [facility] HYDROXYprog est(PF)(pre g presv) (HANS) 250 mg/mL (1 mL) injection 250 mg 2020-0 11-12 19:40: 00 Yes [id number] 250mg 250 mg, Intramuscu lar, QWEEKLY, First dose on Tue11/12/20 at 1445, Until Discontinu ed, Routine [facility] HYDROXYprog est(PF)(pre g presv) (HANS) 250 mg/mL (1 mL) injection 250 mg 1-0 11-12 19:40: 00 Yes [id number] 250mg [facility] HYDROXYprog est(PF)(pre g presv) (HANS) 250 mg/mL (1 mL) injection 250 mg 1-0 11-12 19:40: 00 Yes [id number] 250mg 250 mg, Intramuscu lar, QWEEKLY, First dose on Tue11/12/20 at 1445, Until Discontinu ed, Routine [facility] HYDROXYprog est(PF)(pre g presv) (HANS) 250 mg/mL (1 mL) injection 250 mg 2021-0 - 19:40: 00 Yes [id number] 250mg [facility] HYDROXYprog est(PF)(pre g presv) (HANS) 250 mg/mL (1 mL) injection 250 mg 2021-0 11-12 19:40: 00 Yes [id number] 250mg [facility] HYDROXYprog est(PF)(pre g presv) (HANS) 250 mg/mL (1 mL) injection 250 mg 2021-0 11-12 19:40: 00 Yes [id number] 250mg [facility] HYDROXYprog est(PF)(pre g presv) (HANS) 250 mg/mL (1 mL) injection 250 mg 2021-0 11-12 19:40: 00 Yes [id number] 250mg [facility] HYDROXYprog est(PF)(pre g presv) (HANS) 250 mg/mL (1 mL) injection 250 mg 2021-0 11-12 19:40: 00 Yes [id number] 250mg [facility] HYDROXYprog est(PF)(pre g presv) (HANS) 250 mg/mL (1 mL) injection 250 mg 2021-0 11-12 19:40: 00 Yes [id number] 250mg [facility] HYDROXYprog est(PF)(pre g presv) (HANS) 250 mg/mL (1 mL) injection 250 mg 2021-0 11-12 19:40: 00 Yes [id number] 250mg 250 mg, Intramuscu lar, QWEEKLY, First dose on Tue11/12/20 at 1445, Until Discontinu ed, Routine [facility] HYDROXYprog est(PF)(pre g presv) (HANS) 250 mg/mL (1 mL) injection 250 mg 2021-0 -07 19:40: 00 Yes [id number] 250mg [facility] HYDROXYprog est(PF)(pre g presv) (HANS) 250 mg/mL (1 mL) injection 250 mg 2021-0 11-12 19:40: 00 Yes [id number] 250mg 250 mg, Intramuscu lar, QWEEKLY, First dose on Tue11/12/20 at 1445, Until Discontinu ed, Routine [facility] HYDROXYprog est(PF)(pre g presv) (HANS) 250 mg/mL (1 mL) injection 250 mg 1-0 11-12 19:40: 00 Yes [id number] 250mg [facility] HYDROXYprog est(PF)(pre g presv) (HANS) 250 mg/mL (1 mL) injection 250 mg 2021-0 11-12 19:40: 00 Yes [id number] 250mg 250 mg, Intramuscu lar, QWEEKLY, First dose on Tue11/12/20 at 1445, Until Discontinu ed, Routine [facility] HYDROXYprog est(PF)(pre g presv) (HANS) 250 mg/mL (1 mL) injection 250 mg 2021-0 11-12 19:40: 00 Yes [id number] 250mg [facility] HYDROXYprog est(PF)(pre g presv) (HANS) 250 mg/mL (1 mL) injection 250 mg 1-0 11-12 19:40: 00 Yes [id number] 250mg 250 mg, Intramuscu lar, QWEEKLY, First dose on Tue11/12/20 at 1445, Until Discontinu ed, Routine [facility] HYDROXYprog est(PF)(pre g presv) (HANS) 250 mg/mL (1 mL) injection 250 mg 2021-0 11-12 19:40: 00 Yes [id number] 250mg [facility] HYDROXYprog est(PF)(pre g presv) (HANS) 250 mg/mL (1 mL) injection 250 mg 2021-0 11-12 19:40: 00 Yes [id number] 250mg 250 mg, Intramuscu lar, QWEEKLY, First dose on Tue11/12/20 at 1445, Until Discontinu ed, Routine [facility] HYDROXYprog est(PF)(pre g presv) (HANS) 250 mg/mL (1 mL) injection 250 mg 1-0 11-12 19:40: 00 Yes [id number] 250mg [facility] HYDROXYprog est(PF)(pre g presv) (HANS) 250 mg/mL (1 mL) injection 250 mg 2021-0 11-12 19:40: 00 Yes [id number] 250mg 250 mg, Intramuscu lar, QWEEKLY, First dose on Tue11/12/20 at 1445, Until Discontinu ed, Routine [facility] HYDROXYprog est(PF)(pre g presv) (HANS) 250 mg/mL (1 mL) injection 250 mg 2020-0 11-12 19:40: 00 Yes [id number] 250mg [facility] HYDROXYprog est(PF)(pre g presv) (HANS) 250 mg/mL (1 mL) injection 250 mg 2020-0 11-12 19:40: 00 Yes [id number] 250mg 250 mg, Intramuscu lar, QWEEKLY, First dose on Tue11/12/20 at 1445, Until Discontinu ed, Routine [facility] HYDROXYprog est(PF)(pre g presv) (HANS) 250 mg/mL (1 mL) injection 250 mg 2020-0 11-12 19:40: 00 Yes [id number] 250mg [facility] HYDROXYprog est(PF)(pre g presv) (HANS) 250 mg/mL (1 mL) injection 250 mg 2020-0 11-12 19:40: 00 Yes [id number] 250mg 250 mg, Intramuscu lar, QWEEKLY, First dose on Tue11/12/20 at 1445, Until Discontinu ed, Routine [facility] HYDROXYprog est(PF)(pre g presv) (HANS) 250 mg/mL (1 mL) injection 250 mg 1-0 11-12 19:40: 00 Yes [id number] 250mg [facility] HYDROXYprog est(PF)(pre g presv) (HANS) 250 mg/mL (1 mL) injection 250 mg 2020-0 11-12 19:40: 00 Yes [id number] 250mg 250 mg, Intramuscu lar, QWEEKLY, First dose on Tue11/12/20 at 1445, Until Discontinu ed, Routine [facility] HYDROXYprog est(PF)(pre g presv) (HANS) 250 mg/mL (1 mL) injection 250 mg 11-12 19:40: 00 Yes [id number] 250mg [facility] HYDROXYprog est(PF)(pre g presv) (HANS) 250 mg/mL (1 mL) injection 250 mg 11-12 19:40: 00 Yes [id number] 250mg [facility] HYDROXYprog est(PF)(pre g presv) (HANS) 250 mg/mL (1 mL) injection 250 mg 11-12 19:40: 00 Yes [id number] [facility](PF)(pre g presv) (HANS) 250 mg/mL (1 mL) injection 250 mg 11-12 19:40: 00 Yes [id number] 250mg [facility] HYDROXYprog est(PF)(pre g presv) (HANS) 250 mg/mL (1 mL) injection 250 mg 11-12 19:40: 00 Yes [id number] 250mg [facility] proMETHazin e 25 mg tablet 18 00:00: 00 Yes [id number] 25mg Take 1 tablet by mouth every 6 (six) hours as needed for Nausea and Vomiting (N/V). [facility] proMETHazin e 25 mg tablet 2020-0 -18 00:00: 00 Yes [id number] 25mg Take 1 tablet by mouth every 6 (six) hours as needed for Nausea and Vomiting (N/V). [facility] 25 mg tablet 2020-0 -18 00:00: 00 Yes [id number] 25mg Take 1 tablet by mouth every 6 (six) hours as needed for Nausea and Vomiting (N/V). [facility] e 25 mg tablet 2020-0 2-18 00:00: 00 Yes [id number] 25mg Take 1 tablet by mouth every 6 (six) hours as needed for Nausea and Vomiting (N/V). [facility] 25 mg tablet 1-0 2-18 00:00: 00 Yes [id number] 25mg Take 1 tablet by mouth every 6 (six) hours as needed for Nausea and Vomiting (N/V). [facility] 25 mg tablet 1-0 2-18 00:00: 00 Yes [id number] 25mg Take 1 tablet by mouth every 6 (six) hours as needed for Nausea and Vomiting (N/V). [facility] 25 mg tablet 2020-0 2-18 00:00: 00 Yes [id number] 25mg Take 1 tablet by mouth every 6 (six) hours as needed for Nausea and Vomiting (N/V). [facility] 25 mg tablet 2020-0 2-18 00:00: 00 Yes [id number] 25mg Take 1 tablet by mouth every 6 (six) hours as needed for Nausea and Vomiting (N/V). [facility] 25 mg tablet 2020-0 2-18 00:00: 00 Yes [id number] 25mg Take 1 tablet by mouth every 6 (six) hours as needed for Nausea and Vomiting (N/V). [facility] 25 mg tablet 1-0 2-18 00:00: 00 Yes [id number] 25mg Take 1 tablet by mouth every 6 (six) hours as needed for Nausea and Vomiting (N/V). [facility] 25 mg tablet 1-0 2-18 00:00: 00 Yes [id number] 25mg Take 1 tablet by mouth every 6 (six) hours as needed for Nausea and Vomiting (N/V). [facility] 25 mg tablet 1-0 2-18 00:00: 00 Yes [id number] 25mg Take 1 tablet by mouth every 6 (six) hours as needed for Nausea and Vomiting (N/V). [facility] 25 mg tablet 1-0 2-18 00:00: 00 Yes [id number] 25mg Take 1 tablet by mouth every 6 (six) hours as needed for Nausea and Vomiting (N/V). [facility] 25 mg tablet 1-0 2-18 00:00: 00 Yes [id number] 25mg Take 1 tablet by mouth every 6 (six) hours as needed for Nausea and Vomiting (N/V). [facility] 25 mg tablet 1-0 2-18 00:00: 00 Yes [id number] 25mg Take 1 tablet by mouth every 6 (six) hours as needed for Nausea and Vomiting (N/V). [facility] 25 mg tablet 2020-0 2-18 00:00: 00 Yes [id number] 25mg Take 1 tablet by mouth every 6 (six) hours as needed for Nausea and Vomiting (N/V). [facility] 25 mg tablet 2020-0 2-18 00:00: 00 Yes [id number] 25mg Take 1 tablet by mouth every 6 (six) hours as needed for Nausea and Vomiting (N/V). [facility] 25 mg tablet 2020-0 2-18 00:00: 00 Yes [id number] 25mg Take 1 tablet by mouth every 6 (six) hours as needed for Nausea and Vomiting (N/V). [facility] 25 mg tablet 2020-0 2-18 00:00: 00 Yes [id number] 25mg Take 1 tablet by mouth every 6 (six) hours as needed for Nausea and Vomiting (N/V). [facility] 25 mg tablet 1-0 2-18 00:00: 00 Yes [id number] 25mg Take 1 tablet by mouth every 6 (six) hours as needed for Nausea and Vomiting (N/V). [facility] 25 mg tablet 1-0 2-18 00:00: 00 Yes [id number] 25mg Take 1 tablet by mouth every 6 (six) hours as needed for Nausea and Vomiting (N/V). [facility] 25 mg tablet 1-0 2-18 00:00: 00 Yes [id number] 25mg Take 1 tablet by mouth every 6 (six) hours as needed for Nausea and Vomiting (N/V). [facility] 25 mg tablet 2020-0 2-18 00:00: 00 Yes [id number] 25mg Take 1 tablet by mouth every 6 (six) hours as needed for Nausea and Vomiting (N/V). [facility] 25 mg tablet 2020-0 2-18 00:00: 00 Yes [id number] 25mg Take 1 tablet by mouth every 6 (six) hours as needed for Nausea and Vomiting (N/V). [facility] 25 mg tablet 2020-0 2-18 00:00: 00 Yes [id number] 25mg Take 1 tablet by mouth every 6 (six) hours as needed for Nausea and Vomiting (N/V). [facility] 25 mg tablet 2020-0 2-18 00:00: 00 Yes [id number] 25mg Take 1 tablet by mouth every 6 (six) hours as needed for Nausea and Vomiting (N/V). [facility] 25 mg tablet 2020-0 2-18 00:00: 00 Yes [id number] 25mg Take 1 tablet by mouth every 6 (six) hours as needed for Nausea and Vomiting (N/V). [facility] 25 mg tablet 2020-0 2-18 00:00: 00 Yes [id number] 25mg Take 1 tablet by mouth every 6 (six) hours as needed for Nausea and Vomiting (N/V). [facility] 25 mg tablet 2020-0 2-18 00:00: 00 Yes [id number] 25mg Take 1 tablet by mouth every 6 (six) hours as needed for Nausea and Vomiting (N/V). [facility] 25 mg tablet 1-0 2-18 00:00: 00 Yes [id number] 25mg Take 1 tablet by mouth every 6 (six) hours as needed for Nausea and Vomiting (N/V). [facility] 25 mg tablet 1-0 2-18 00:00: 00 Yes [id number] 25mg Take 1 tablet by mouth every 6 (six) hours as needed for Nausea and Vomiting (N/V). [facility] 25 mg tablet 1-0 2-18 00:00: 00 Yes [id number] 25mg Take 1 tablet by mouth every 6 (six) hours as needed for Nausea and Vomiting (N/V). [facility] 25 mg tablet 1-0 2-18 00:00: 00 Yes [id number] 25mg Take 1 tablet by mouth every 6 (six) hours as needed for Nausea and Vomiting (N/V). [facility] 25 mg tablet 1-0 2-18 00:00: 00 Yes [id number] 25mg Take 1 tablet by mouth every 6 (six) hours as needed for Nausea and Vomiting (N/V). [facility] 25 mg tablet 2020-0 2-18 00:00: 00 Yes [id number] 25mg Take 1 tablet by mouth every 6 (six) hours as needed for Nausea and Vomiting (N/V). [facility] 25 mg tablet 1-0 2-18 00:00: 00 Yes [id number] 25mg Take 1 tablet by mouth every 6 (six) hours as needed for Nausea and Vomiting (N/V). [facility] 25 mg tablet 1-0 2-18 00:00: 00 Yes [id number] 25mg Take 1 tablet by mouth every 6 (six) hours as needed for Nausea and Vomiting (N/V). [facility] 25 mg tablet 1-0 2-18 00:00: 00 Yes [id number] 25mg Take 1 tablet by mouth every 6 (six) hours as needed for Nausea and Vomiting (N/V). [facility] 25 mg tablet 1-0 2-18 00:00: 00 Yes [id number] 25mg Take 1 tablet by mouth every 6 (six) hours as needed for Nausea and Vomiting (N/V). [facility] 25 mg tablet 1-0 2-18 00:00: 00 Yes [id number] 25mg Take 1 tablet by mouth every 6 (six) hours as needed for Nausea and Vomiting (N/V). [facility] 25 mg tablet 1-0 2-18 00:00: 00 Yes [id number] 25mg Take 1 tablet by mouth every 6 (six) hours as needed for Nausea and Vomiting (N/V). [facility] 25 mg tablet 2020-0 2-18 00:00: 00 Yes [id number] 25mg Take 1 tablet by mouth every 6 (six) hours as needed for Nausea and Vomiting (N/V). [facility] 25 mg tablet 2020-0 2-18 00:00: 00 Yes [id number] 25mg Take 1 tablet by mouth every 6 (six) hours as needed for Nausea and Vomiting (N/V). [facility] 25 mg tablet 2020-0 2-18 00:00: 00 Yes [id number] 25mg Take 1 tablet by mouth every 6 (six) hours as needed for Nausea and Vomiting (N/V). [facility] 25 mg tablet 2020-0 2-18 00:00: 00 Yes [id number] 25mg Take 1 tablet by mouth every 6 (six) hours as needed for Nausea and Vomiting (N/V). [facility] 25 mg tablet 2020-0 2-18 00:00: 00 Yes [id number] 25mg Take 1 tablet by mouth every 6 (six) hours as needed for Nausea and Vomiting (N/V). [facility] 25 mg tablet 1-0 2-18 00:00: 00 Yes [id number] 25mg Take 1 tablet by mouth every 6 (six) hours as needed for Nausea and Vomiting (N/V). [facility] 25 mg tablet 1-0 2-18 00:00: 00 Yes [id number] 25mg Take 1 tablet by mouth every 6 (six) hours as needed for Nausea and Vomiting (N/V). [facility] 25 mg tablet 2020-0 2-18 00:00: 00 Yes [id number] 25mg Take 1 tablet by mouth every 6 (six) hours as needed for Nausea and Vomiting (N/V). [facility] 25 mg tablet 2020-0 2-18 00:00: 00 Yes [id number] 25mg Take 1 tablet by mouth every 6 (six) hours as needed for Nausea and Vomiting (N/V). [facility] 25 mg tablet 1-0 2-18 00:00: 00 Yes [id number] 25mg Take 1 tablet by mouth every 6 (six) hours as needed for Nausea and Vomiting (N/V). [facility] 25 mg tablet 2020-0 2-18 00:00: 00 Yes [id number] 25mg Take 1 tablet by mouth every 6 (six) hours as needed for Nausea and Vomiting (N/V). [facility] proMETHazin e 25 mg tablet 2020-0 2-18 00:00: 00 Yes [id number] 25mg Take 1 tablet by mouth every 6 (six) hours as needed for Nausea and Vomiting (N/V). [facility] proMETHazin e 25 mg tablet 2020-0 2-18 00:00: 00 Yes [id number] 25mg Take 1 tablet by mouth every 6 (six) hours as needed for Nausea and Vomiting (N/V). [facility] proMETHazin e 25 mg tablet 2020-0 2-18 00:00: 00 Yes [id number] 25mg Take 1 tablet by mouth every 6 (six) hours as needed for Nausea and Vomiting (N/V). [facility] proMETHazin e 25 mg tablet 1-0 2-18 00:00: 00 Yes [id number] 25mg Take 1 tablet by mouth every 6 (six) hours as needed for Nausea and Vomiting (N/V). [facility] proMETHazin e 25 mg tablet 1-0 2-18 00:00: 00 Yes [id number] 25mg Take 1 tablet by mouth every 6 (six) hours as needed for Nausea and Vomiting (N/V). [facility] proMETHazin e 25 mg tablet 1-0 2-18 00:00: 00 Yes [id number] 25mg Take 1 tablet by mouth every 6 (six) hours as needed for Nausea and Vomiting (N/V). [facility] proMETHazin e 25 mg tablet 2-18 00:00: 00 Yes [id number] 25mg Take 1 tablet by mouth every 6 (six) hours as needed for Nausea and Vomiting (N/V). [facility] doxylamine- pyridoxine, vit B6, (DICLEGIS) 10-10 mg per tablet 2-10 00:00: 00 Yes [id number] 2{tbl} Take 2 tablets by mouth at bedtime. [facility] doxylamine- pyridoxine, vit B6, (DICLEGIS) 10-10 mg per tablet 2-10 00:00: 00 Yes [id number] 2{tbl} Take 2 tablets by mouth at bedtime. [facility] doxylamine- pyridoxine, vit B6, (DICLEGIS) 10-10 mg per tablet 2-10 00:00: 00 Yes [id number] 2{tbl} Take 2 tablets by mouth at bedtime. [facility] doxylamine- pyridoxine, vit B6, (DICLEGIS) 10-10 mg per tablet 2-10 00:00: 00 Yes [id number] 2{tbl} Take 2 tablets by mouth at bedtime. [facility] doxylamine- pyridoxine, vit B6, (DICLEGIS) 10-10 mg per tablet 2-10 00:00: 00 Yes [id number] 2{tbl} Take 2 tablets by mouth at bedtime. [facility] doxylamine- pyridoxine, vit B6, (DICLEGIS) 10-10 mg per tablet 2-10 00:00: 00 Yes [id number] 2{tbl} Take 2 tablets by mouth at bedtime. [facility] doxylamine- pyridoxine, vit B6, (DICLEGIS) 10-10 mg per tablet 2-10 00:00: 00 Yes [id number] 2{tbl} Take 2 tablets by mouth at bedtime. [facility] doxylamine- pyridoxine, vit B6, (DICLEGIS) 10-10 mg per tablet 2 00:00: 00 Yes [id number] 2{tbl} Take 2 tablets by mouth at bedtime. [facility] doxylamine- pyridoxine, vit B6, (DICLEGIS) 10-10 mg per tablet 2 00:00: 00 Yes [id number] 2{tbl} Take 2 tablets by mouth at bedtime. [facility] doxylamine- pyridoxine, vit B6, (DICLEGIS) 10-10 mg per tablet 09-17 00:00: 00 Yes [id number] 2{tbl} Take 2 tablets by mouth at bedtime. [facility] doxylamine- pyridoxine, vit B6, (DICLEGIS) 10-10 mg per tablet 09-17 00:00: 00 Yes [id number] 2{tbl} Take 2 tablets by mouth at bedtime. [facility] doxylamine- pyridoxine, vit B6, (DICLEGIS) 10-10 mg per tablet 09-17 00:00: 00 Yes [id number] 2{tbl} Take 2 tablets by mouth at bedtime. [facility] doxylamine- pyridoxine, vit B6, (DICLEGIS) 10-10 mg per tablet 09-17 00:00: 00 Yes [id number] 2{tbl} Take 2 tablets by mouth at bedtime. [facility] doxylamine- pyridoxine, vit B6, (DICLEGIS) 10-10 mg per tablet 09-17 00:00: 00 Yes [id number] 2{tbl} Take 2 tablets by mouth at bedtime. [facility] doxylamine- pyridoxine, vit B6, (DICLEGIS) 10-10 mg per tablet 09-17 00:00: 00 Yes [id number] 2{tbl} Take 2 tablets by mouth at bedtime. [facility] doxylamine- pyridoxine, vit B6, (DICLEGIS) 10-10 mg per tablet 09-17 00:00: 00 Yes [id number] 2{tbl} Take 2 tablets by mouth at bedtime. [facility] doxylamine- pyridoxine, vit B6, (DICLEGIS) 10-10 mg per tablet 2-10 00:00: 00 Yes [id number] 2{tbl} Take 2 tablets by mouth at bedtime. [facility] doxylamine- pyridoxine, vit B6, (DICLEGIS) 10-10 mg per tablet 2-10 00:00: 00 Yes [id number] 2{tbl} Take 2 tablets by mouth at bedtime. [facility] doxylamine- pyridoxine, vit B6, (DICLEGIS) 10-10 mg per tablet 2 00:00: 00 Yes [id number] 2{tbl} Take 2 tablets by mouth at bedtime. [facility] doxylamine- pyridoxine, vit B6, (DICLEGIS) 10-10 mg per tablet 2- 00:00: 00 Yes [id number] 2{tbl} Take 2 tablets by mouth at bedtime. [facility] doxylamine- pyridoxine, vit B6, (DICLEGIS) 10-10 mg per tablet 2 00:00: 00 Yes [id number] 2{tbl} Take 2 tablets by mouth at bedtime. [facility] doxylamine- pyridoxine, vit B6, (DICLEGIS) 10-10 mg per tablet 2-10 00:00: 00 Yes [id number] 2{tbl} Take 2 tablets by mouth at bedtime. [facility] doxylamine- pyridoxine, vit B6, (DICLEGIS) 10-10 mg per tablet 2-10 00:00: 00 Yes [id number] 2{tbl} Take 2 tablets by mouth at bedtime. [facility] doxylamine- pyridoxine, vit B6, (DICLEGIS) 10-10 mg per tablet 2-10 00:00: 00 Yes [id number] 2{tbl} Take 2 tablets by mouth at bedtime. [facility] doxylamine- pyridoxine, vit B6, (DICLEGIS) 10-10 mg per tablet 2-10 00:00: 00 Yes [id number] 2{tbl} Take 2 tablets by mouth at bedtime. [facility] doxylamine- pyridoxine, vit B6, (DICLEGIS) 10-10 mg per tablet 2-10 00:00: 00 Yes [id number] 2{tbl} Take 2 tablets by mouth at bedtime. [facility] doxylamine- pyridoxine, vit B6, (DICLEGIS) 10-10 mg per tablet 2-10 00:00: 00 Yes [id number] 2{tbl} Take 2 tablets by mouth at bedtime. [facility] doxylamine- pyridoxine, vit B6, (DICLEGIS) 10-10 mg per tablet 2-10 00:00: 00 Yes [id number] 2{tbl} Take 2 tablets by mouth at bedtime. [facility] doxylamine- pyridoxine, vit B6, (DICLEGIS) 10-10 mg per tablet 2-10 00:00: 00 Yes [id number] 2{tbl} Take 2 tablets by mouth at bedtime. [facility] doxylamine- pyridoxine, vit B6, (DICLEGIS) 10-10 mg per tablet 2-10 00:00: 00 Yes [id number] 2{tbl} Take 2 tablets by mouth at bedtime. [facility] doxylamine- pyridoxine, vit B6, (DICLEGIS) 10-10 mg per tablet 2-10 00:00: 00 Yes [id number] 2{tbl} Take 2 tablets by mouth at bedtime. [facility] doxylamine- pyridoxine, vit B6, (DICLEGIS) 10-10 mg per tablet 2-10 00:00: 00 Yes [id number] 2{tbl} Take 2 tablets by mouth at bedtime. [facility] doxylamine- pyridoxine, vit B6, (DICLEGIS) 10-10 mg per tablet 2 00:00: 00 Yes [id number] 2{tbl} Take 2 tablets by mouth at bedtime. [facility] doxylamine- pyridoxine, vit B6, (DICLEGIS) 10-10 mg per tablet 2 00:00: 00 Yes [id number] 2{tbl} Take 2 tablets by mouth at bedtime. [facility] doxylamine- pyridoxine, vit B6, (DICLEGIS) 10-10 mg per tablet 09-17 00:00: 00 Yes [id number] 2{tbl} Take 2 tablets by mouth at bedtime. [facility] doxylamine- pyridoxine, vit B6, (DICLEGIS) 10-10 mg per tablet 09-17 00:00: 00 Yes [id number] 2{tbl} Take 2 tablets by mouth at bedtime. [facility] doxylamine- pyridoxine, vit B6, (DICLEGIS) 10-10 mg per tablet 09-17 00:00: 00 Yes [id number] 2{tbl} Take 2 tablets by mouth at bedtime. [facility] doxylamine- pyridoxine, vit B6, (DICLEGIS) 10-10 mg per tablet 09-17 00:00: 00 Yes [id number] 2{tbl} Take 2 tablets by mouth at bedtime. [facility] doxylamine- pyridoxine, vit B6, (DICLEGIS) 10-10 mg per tablet 09-17 00:00: 00 Yes [id number] 2{tbl} Take 2 tablets by mouth at bedtime. [facility] doxylamine- pyridoxine, vit B6, (DICLEGIS) 10-10 mg per tablet 09-17 00:00: 00 Yes [id number] 2{tbl} Take 2 tablets by mouth at bedtime. [facility] doxylamine- pyridoxine, vit B6, (DICLEGIS) 10-10 mg per tablet 09-17 00:00: 00 Yes [id number] 2{tbl} Take 2 tablets by mouth at bedtime. [facility] doxylamine- pyridoxine, vit B6, (DICLEGIS) 10-10 mg per tablet 2-10 00:00: 00 Yes [id number] 2{tbl} Take 2 tablets by mouth at bedtime. [facility] doxylamine- pyridoxine, vit B6, (DICLEGIS) 10-10 mg per tablet 2-10 00:00: 00 Yes [id number] 2{tbl} Take 2 tablets by mouth at bedtime. [facility] doxylamine- pyridoxine, vit B6, (DICLEGIS) 10-10 mg per tablet 2 00:00: 00 Yes [id number] 2{tbl} Take 2 tablets by mouth at bedtime. [facility] doxylamine- pyridoxine, vit B6, (DICLEGIS) 10-10 mg per tablet 2- 00:00: 00 Yes [id number] 2{tbl} Take 2 tablets by mouth at bedtime. [facility] doxylamine- pyridoxine, vit B6, (DICLEGIS) 10-10 mg per tablet 2 00:00: 00 Yes [id number] 2{tbl} Take 2 tablets by mouth at bedtime. [facility] doxylamine- pyridoxine, vit B6, (DICLEGIS) 10-10 mg per tablet 2-10 00:00: 00 Yes [id number] 2{tbl} Take 2 tablets by mouth at bedtime. [facility] doxylamine- pyridoxine, vit B6, (DICLEGIS) 10-10 mg per tablet 2-10 00:00: 00 Yes [id number] 2{tbl} Take 2 tablets by mouth at bedtime. [facility] doxylamine- pyridoxine, vit B6, (DICLEGIS) 10-10 mg per tablet 2-10 00:00: 00 Yes [id number] 2{tbl} Take 2 tablets by mouth at bedtime. [facility] doxylamine- pyridoxine, vit B6, (DICLEGIS) 10-10 mg per tablet 2-10 00:00: 00 Yes [id number] 2{tbl} Take 2 tablets by mouth at bedtime. [facility] doxylamine- pyridoxine, vit B6, (DICLEGIS) 10-10 mg per tablet 2-10 00:00: 00 Yes [id number] 2{tbl} Take 2 tablets by mouth at bedtime. [facility] doxylamine- pyridoxine, vit B6, (DICLEGIS) 10-10 mg per tablet 2-10 00:00: 00 Yes [id number] 2{tbl} Take 2 tablets by mouth at bedtime. [facility] doxylamine- pyridoxine, vit B6, (DICLEGIS) 10-10 mg per tablet 2-10 00:00: 00 Yes [id number] 2{tbl} Take 2 tablets by mouth at bedtime. [facility] doxylamine- pyridoxine, vit B6, (DICLEGIS) 10-10 mg per tablet 2-10 00:00: 00 Yes [id number] 2{tbl} Take 2 tablets by mouth at bedtime. [facility] doxylamine- pyridoxine, vit B6, (DICLEGIS) 10-10 mg per tablet 2-10 00:00: 00 Yes [id number] 2{tbl} Take 2 tablets by mouth at bedtime. [facility] doxylamine- pyridoxine, vit B6, (DICLEGIS) 10-10 mg per tablet 2-10 00:00: 00 Yes [id number] 2{tbl} Take 2 tablets by mouth at bedtime. [facility] doxylamine- pyridoxine, vit B6, (DICLEGIS) 10-10 mg per tablet 2-10 00:00: 00 Yes [id number] 2{tbl} Take 2 tablets by mouth at bedtime. [facility] doxylamine- pyridoxine, vit B6, (DICLEGIS) 10-10 mg per tablet 09-17 00:00: 00 Yes [id number] 2{tbl} Take 2 tablets by mouth at bedtime. [facility] doxylamine- pyridoxine, vit B6, (DICLEGIS) 10-10 mg per tablet 09-17 00:00: 00 Yes [id number] 2{tbl} Take 2 tablets by mouth at bedtime. [facility] doxylamine- pyridoxine, vit B6, (DICLEGIS) 10-10 mg per tablet 09-17 00:00: 00 Yes [id number] 2{tbl} Take 2 tablets by mouth at bedtime. [facility] doxylamine- pyridoxine, vit B6, (DICLEGIS) 10-10 mg per tablet 09-17 00:00: 00 Yes [id number] 2{tbl} Take 2 tablets by mouth at bedtime. [facility] multivitami n ( VITAMIN) tablet 08-20 00:00: 00 Yes [id number] 1{tbl} Take 1 tablet by mouth daily. [facility] multivitami n ( VITAMIN) tablet 08-20 00:00: 00 Yes [id number] 1{tbl} Take 1 tablet by mouth daily. [facility] multivitami n ( VITAMIN) tablet 08-20 00:00: 00 Yes [id number] 1{tbl} Take 1 tablet by mouth daily. [facility] multivitami n ( VITAMIN) tablet 08-20 00:00: 00 Yes [id number] 1{tbl} Take 1 tablet by mouth daily. [facility] multivitami n ( VITAMIN) tablet 08-20 00:00: 00 Yes [id number] 1{tbl} Take 1 tablet by mouth daily. [facility] multivitami n ( VITAMIN) tablet 08-20 00:00: 00 Yes [id number] 1{tbl} Take 1 tablet by mouth daily. [facility] multivitami n ( VITAMIN) tablet 08-20 00:00: 00 Yes [id number] 1{tbl} Take 1 tablet by mouth daily. [facility] multivitami n ( VITAMIN) tablet 08-20 00:00: 00 Yes [id number] 1{tbl} Take 1 tablet by mouth daily. [facility] multivitami n ( VITAMIN) tablet 08-20 00:00: 00 Yes [id number] 1{tbl} Take 1 tablet by mouth daily. [facility] multivitami n ( VITAMIN) tablet 08-20 00:00: 00 Yes [id number] 1{tbl} Take 1 tablet by mouth daily. [facility] multivitami n ( VITAMIN) tablet 08-20 00:00: 00 Yes [id number] 1{tbl} Take 1 tablet by mouth daily. [facility] multivitami n ( VITAMIN) tablet 08-20 00:00: 00 Yes [id number] 1{tbl} Take 1 tablet by mouth daily. [facility] multivitami n ( VITAMIN) tablet 08-20 00:00: 00 Yes [id number] 1{tbl} Take 1 tablet by mouth daily. [facility] multivitami n ( VITAMIN) tablet 08-20 00:00: 00 Yes [id number] 1{tbl} Take 1 tablet by mouth daily. [facility] multivitami n ( VITAMIN) tablet 08-20 00:00: 00 Yes [id number] 1{tbl} Take 1 tablet by mouth daily. [facility] multivitami n ( VITAMIN) tablet 08-20 00:00: 00 Yes [id number] 1{tbl} Take 1 tablet by mouth daily. [facility] multivitami n ( VITAMIN) tablet 08-20 00:00: 00 Yes [id number] 1{tbl} Take 1 tablet by mouth daily. [facility] multivitami n ( VITAMIN) tablet 08-20 00:00: 00 Yes [id number] 1{tbl} Take 1 tablet by mouth daily. [facility] multivitami n ( VITAMIN) tablet 08-20 00:00: 00 Yes [id number] 1{tbl} Take 1 tablet by mouth daily. [facility] multivitami n ( VITAMIN) tablet 08-20 00:00: 00 Yes [id number] 1{tbl} Take 1 tablet by mouth daily. [facility] multivitami n ( VITAMIN) tablet 08-20 00:00: 00 Yes [id number] 1{tbl} Take 1 tablet by mouth daily. [facility] multivitami n ( VITAMIN) tablet 08-20 00:00: 00 Yes [id number] 1{tbl} Take 1 tablet by mouth daily. [facility] multivitami n ( VITAMIN) tablet 08-20 00:00: 00 Yes [id number] 1{tbl} Take 1 tablet by mouth daily. [facility] multivitami n ( VITAMIN) tablet 08-20 00:00: 00 Yes [id number] 1{tbl} Take 1 tablet by mouth daily. [facility] multivitami n ( VITAMIN) tablet 08-20 00:00: 00 Yes [id number] 1{tbl} Take 1 tablet by mouth daily. [facility] multivitami n ( VITAMIN) tablet 08-20 00:00: 00 Yes [id number] 1{tbl} Take 1 tablet by mouth daily. [facility] multivitami n ( VITAMIN) tablet 08-20 00:00: 00 Yes [id number] 1{tbl} Take 1 tablet by mouth daily. [facility] multivitami n ( VITAMIN) tablet 08-20 00:00: 00 Yes [id number] 1{tbl} Take 1 tablet by mouth daily. [facility] multivitami n ( VITAMIN) tablet 08-20 00:00: 00 Yes [id number] 1{tbl} Take 1 tablet by mouth daily. [facility] multivitami n ( VITAMIN) tablet 08-20 00:00: 00 Yes [id number] 1{tbl} Take 1 tablet by mouth daily. [facility] multivitami n ( VITAMIN) tablet 08-20 00:00: 00 Yes [id number] 1{tbl} Take 1 tablet by mouth daily. [facility] multivitami n ( VITAMIN) tablet 08-20 00:00: 00 Yes [id number] 1{tbl} Take 1 tablet by mouth daily. [facility] multivitami n ( VITAMIN) tablet 08-20 00:00: 00 Yes [id number] 1{tbl} Take 1 tablet by mouth daily. [facility] multivitami n ( VITAMIN) tablet 08-20 00:00: 00 Yes [id number] 1{tbl} Take 1 tablet by mouth daily. [facility] multivitami n ( VITAMIN) tablet 08-20 00:00: 00 Yes [id number] 1{tbl} Take 1 tablet by mouth daily. [facility] multivitami n ( VITAMIN) tablet 08-20 00:00: 00 Yes [id number] 1{tbl} Take 1 tablet by mouth daily. [facility] multivitami n ( VITAMIN) tablet 08-20 00:00: 00 Yes [id number] 1{tbl} Take 1 tablet by mouth daily. [facility] multivitami n ( VITAMIN) tablet 08-20 00:00: 00 Yes [id number] 1{tbl} Take 1 tablet by mouth daily. [facility] multivitami n ( VITAMIN) tablet 08-20 00:00: 00 Yes [id number] 1{tbl} Take 1 tablet by mouth daily. [facility] multivitami n ( VITAMIN) tablet 08-20 00:00: 00 Yes [id number] 1{tbl} Take 1 tablet by mouth daily. [facility] multivitami n ( VITAMIN) tablet 08-20 00:00: 00 Yes [id number] 1{tbl} Take 1 tablet by mouth daily. [facility] multivitami n ( VITAMIN) tablet 08-20 00:00: 00 Yes [id number] 1{tbl} Take 1 tablet by mouth daily. [facility] multivitami n ( VITAMIN) tablet 08-20 00:00: 00 Yes [id number] 1{tbl} Take 1 tablet by mouth daily. [facility] multivitami n ( VITAMIN) tablet 08-20 00:00: 00 Yes [id number] 1{tbl} Take 1 tablet by mouth daily. [facility] multivitami n ( VITAMIN) tablet 08-20 00:00: 00 Yes [id number] 1{tbl} Take 1 tablet by mouth daily. [facility] multivitami n ( VITAMIN) tablet 08-20 00:00: 00 Yes [id number] 1{tbl} Take 1 tablet by mouth daily. [facility] multivitami n ( VITAMIN) tablet 08-20 00:00: 00 Yes [id number] 1{tbl} Take 1 tablet by mouth daily. [facility] multivitami n ( VITAMIN) tablet 08-20 00:00: 00 Yes [id number] 1{tbl} Take 1 tablet by mouth daily. [facility] multivitami n ( VITAMIN) tablet 08-20 00:00: 00 Yes [id number] 1{tbl} Take 1 tablet by mouth daily. [facility] multivitami n ( VITAMIN) tablet 08-20 00:00: 00 Yes [id number] 1{tbl} Take 1 tablet by mouth daily. [facility] multivitami n ( VITAMIN) tablet 08-20 00:00: 00 Yes [id number] 1{tbl} Take 1 tablet by mouth daily. [facility] multivitami n ( VITAMIN) tablet 08-20 00:00: 00 Yes [id number] 1{tbl} Take 1 tablet by mouth daily. [facility] multivitami n ( VITAMIN) tablet 08-20 00:00: 00 Yes [id number] 1{tbl} Take 1 tablet by mouth daily. [facility] multivitami n ( VITAMIN) tablet 08-20 00:00: 00 Yes [id number] 1{tbl} Take 1 tablet by mouth daily. [facility] multivitami n ( VITAMIN) tablet 08-20 00:00: 00 Yes [id number] 1{tbl} Take 1 tablet by mouth daily. [facility] multivitami n ( VITAMIN) tablet 08-20 00:00: 00 Yes [id number] 1{tbl} Take 1 tablet by mouth daily. [facility] multivitami n ( VITAMIN) tablet 08-20 00:00: 00 Yes [id number] 1{tbl} Take 1 tablet by mouth daily. [facility] multivitami n ( VITAMIN) tablet 08-20 00:00: 00 Yes [id number] 1{tbl} Take 1 tablet by mouth daily. [facility] multivitami n ( VITAMIN) tablet 08-20 00:00: 00 Yes [id number] 1{tbl} Take 1 tablet by mouth daily. [facility] multivitami n ( VITAMIN) tablet 08-20 00:00: 00 Yes [id number] 1{tbl} Take 1 tablet by mouth daily. [facility] multivitami n ( VITAMIN) tablet 08-20 00:00: 00 Yes [id number] 1{tbl} Take 1 tablet by mouth daily. [facility] multivitami n ( VITAMIN) tablet 08-20 00:00: 00 Yes [id number] 1{tbl} Take 1 tablet by mouth daily. [facility] multivitami n ( VITAMIN) tablet 08-20 00:00: 00 Yes [id number] 1{tbl} Take 1 tablet by mouth daily. [facility] HYDROXYprog est,PF,,pre g presv, 250 mg/mL (1 mL) injection 08-20 00:00: 00 01-16 04:59 :00 No [id number] 250mg 1 mL by Intramuscu lar route weekly for 22 doses. [facility] HYDROXYprog est,PF,,pre g presv, 250 mg/mL (1 mL) injection 08-20 00:00: 00 01-16 04:59 :00 No [id number] 250mg 1 mL by Intramuscu lar route weekly for 22 doses. [facility] HYDROXYprog est,PF,,pre g presv, 250 mg/mL (1 mL) injection 08-20 00:00: 00 01-16 04:59 :00 No [id number] 250mg 1 mL by Intramuscu lar route weekly for 22 doses. [facility] HYDROXYprog est,PF,,pre g presv, 250 mg/mL (1 mL) injection 08-20 00:00: 00 01-16 04:59 :00 No [id number] 250mg 1 mL by Intramuscu lar route weekly for 22 doses. [facility] HYDROXYprog est,PF,,pre g presv, 250 mg/mL (1 mL) injection 08-20 00:00: 00 01-16 04:59 :00 No [id number] 250mg 1 mL by Intramuscu lar route weekly for 22 doses. [facility] HYDROXYprog est,PF,,pre g presv, 250 mg/mL (1 mL) injection 08-20 00:00: 00 01-16 04:59 :00 No [id number] 250mg 1 mL by Intramuscu lar route weekly for 22 doses. [facility] HYDROXYprog est,PF,,pre g presv, 250 mg/mL (1 mL) injection 08-20 00:00: 00 01-16 04:59 :00 No [id number] 250mg 1 mL by Intramuscu lar route weekly for 22 doses. [facility] HYDROXYprog est,PF,,pre g presv, 250 mg/mL (1 mL) injection 08-20 00:00: 00 01-16 04:59 :00 No [id number] 250mg 1 mL by Intramuscu lar route weekly for 22 doses. [facility] HYDROXYprog est,PF,,pre g presv, 250 mg/mL (1 mL) injection 08-20 00:00: 00 01-16 04:59 :00 No [id number] 250mg 1 mL by Intramuscu lar route weekly for 22 doses. [facility] HYDROXYprog est,PF,,pre g presv, 250 mg/mL (1 mL) injection 08-20 00:00: 00 01-16 04:59 :00 No [id number] 250mg 1 mL by Intramuscu lar route weekly for 22 doses. [facility] HYDROXYprog est,PF,,pre g presv, 250 mg/mL (1 mL) injection 08-20 00:00: 00 01-16 04:59 :00 No [id number] 250mg 1 mL by Intramuscu lar route weekly for 22 doses. [facility] HYDROXYprog est,PF,,pre g presv, 250 mg/mL (1 mL) injection 08-20 00:00: 00 01-16 04:59 :00 No [id number] 250mg 1 mL by Intramuscu lar route weekly for 22 doses. [facility] HYDROXYprog est,PF,,pre g presv, 250 mg/mL (1 mL) injection 08-20 00:00: 00 01-16 04:59 :00 No [id number] 250mg 1 mL by Intramuscu lar route weekly for 22 doses. [facility] HYDROXYprog est,PF,,pre g presv, 250 mg/mL (1 mL) injection 08-20 00:00: 00 01-16 04:59 :00 No [id number] 250mg 1 mL by Intramuscu lar route weekly for 22 doses. [facility] HYDROXYprog est,PF,,pre g presv, 250 mg/mL (1 mL) injection 08-20 00:00: 00 01-16 04:59 :00 No [id number] 250mg 1 mL by Intramuscu lar route weekly for 22 doses. [facility] HYDROXYprog est,PF,,pre g presv, 250 mg/mL (1 mL) injection 08-20 00:00: 00 01-16 04:59 :00 No [id number] 250mg 1 mL by Intramuscu lar route weekly for 22 doses. [facility] HYDROXYprog est,PF,,pre g presv, 250 mg/mL (1 mL) injection 08-20 00:00: 00 01-16 04:59 :00 No [id number] 250mg 1 mL by Intramuscu lar route weekly for 22 doses. [facility] HYDROXYprog est,PF,,pre g presv, 250 mg/mL (1 mL) injection 08-20 00:00: 00 01-16 04:59 :00 No [id number] 250mg 1 mL by Intramuscu lar route weekly for 22 doses. [facility] HYDROXYprog est,PF,,pre g presv, 250 mg/mL (1 mL) injection 08-20 00:00: 00 01-16 04:59 :00 No [id number] 250mg 1 mL by Intramuscu lar route weekly for 22 doses. [facility] HYDROXYprog est,PF,,pre g presv, 250 mg/mL (1 mL) injection 08-20 00:00: 00 01-16 04:59 :00 No [id number] 250mg 1 mL by Intramuscu lar route weekly for 22 doses. [facility] HYDROXYprog est,PF,,pre g presv, 250 mg/mL (1 mL) injection 08-20 00:00: 00 01-16 04:59 :00 No [id number] 250mg 1 mL by Intramuscu lar route weekly for 22 doses. [facility] HYDROXYprog est,PF,,pre g presv, 250 mg/mL (1 mL) injection 08-20 00:00: 00 01-16 04:59 :00 No [id number] 250mg 1 mL by Intramuscu lar route weekly for 22 doses. [facility] HYDROXYprog est,PF,,pre g presv, 250 mg/mL (1 mL) injection 08-20 00:00: 00 01-16 04:59 :00 No [id number] 250mg 1 mL by Intramuscu lar route weekly for 22 doses. [facility] HYDROXYprog est,PF,,pre g presv, 250 mg/mL (1 mL) injection 08-20 00:00: 00 01-16 04:59 :00 No [id number] 250mg 1 mL by Intramuscu lar route weekly for 22 doses. [facility] HYDROXYprog est,PF,,pre g presv, 250 mg/mL (1 mL) injection 08-20 00:00: 00 01-16 04:59 :00 No [id number] 250mg 1 mL by Intramuscu lar route weekly for 22 doses. [facility] HYDROXYprog est,PF,,pre g presv, 250 mg/mL (1 mL) injection 08-20 00:00: 00 01-16 04:59 :00 No [id number] 250mg 1 mL by Intramuscu lar route weekly for 22 doses. [facility] HYDROXYprog est,PF,,pre g presv, 250 mg/mL (1 mL) injection 08-20 00:00: 00 01-16 04:59 :00 No [id number] 250mg 1 mL by Intramuscu lar route weekly for 22 doses. [facility] HYDROXYprog est,PF,,pre g presv, 250 mg/mL (1 mL) injection 08-20 00:00: 00 01-16 04:59 :00 No [id number] 250mg 1 mL by Intramuscu lar route weekly for 22 doses. [facility] HYDROXYprog est,PF,,pre g presv, 250 mg/mL (1 mL) injection 08-20 00:00: 00 01-16 04:59 :00 No [id number] 250mg 1 mL by Intramuscu lar route weekly for 22 doses. [facility] HYDROXYprog est,PF,,pre g presv, 250 mg/mL (1 mL) injection 08-20 00:00: 00 01-16 04:59 :00 No [id number] 250mg 1 mL by Intramuscu lar route weekly for 22 doses. [facility] HYDROXYprog est,PF,,pre g presv, 250 mg/mL (1 mL) injection 08-20 00:00: 00 01-16 04:59 :00 No [id number] 250mg 1 mL by Intramuscu lar route weekly for 22 doses. [facility] HYDROXYprog est,PF,,pre g presv, 250 mg/mL (1 mL) injection 08-20 00:00: 00 01-16 04:59 :00 No [id number] 250mg 1 mL by Intramuscu lar route weekly for 22 doses. [facility] HYDROXYprog est,PF,,pre g presv, 250 mg/mL (1 mL) injection 08-20 00:00: 00 01-16 04:59 :00 No [id number] 250mg 1 mL by Intramuscu lar route weekly for 22 doses. [facility] HYDROXYprog est,PF,,pre g presv, 250 mg/mL (1 mL) injection 08-20 00:00: 00 01-16 04:59 :00 No [id number] 250mg 1 mL by Intramuscu lar route weekly for 22 doses. [facility] HYDROXYprog est,PF,,pre g presv, 250 mg/mL (1 mL) injection 08-20 00:00: 00 01-16 04:59 :00 No [id number] 250mg 1 mL by Intramuscu lar route weekly for 22 doses. [facility] HYDROXYprog est,PF,,pre g presv, 250 mg/mL (1 mL) injection 08-20 00:00: 00 01-16 04:59 :00 No [id number] 250mg 1 mL by Intramuscu lar route weekly for 22 doses. [facility] HYDROXYprog est,PF,,pre g presv, 250 mg/mL (1 mL) injection 08-20 00:00: 00 01-16 04:59 :00 No [id number] 250mg 1 mL by Intramuscu lar route weekly for 22 doses. [facility] HYDROXYprog est,PF,,pre g presv, 250 mg/mL (1 mL) injection 08-20 00:00: 00 01-16 04:59 :00 No [id number] 250mg 1 mL by Intramuscu lar route weekly for 22 doses. [facility] HYDROXYprog est,PF,,pre g presv, 250 mg/mL (1 mL) injection 08-20 00:00: 00 01-16 04:59 :00 No [id number] 250mg 1 mL by Intramuscu lar route weekly for 22 doses. [facility] HYDROXYprog est,PF,,pre g presv, 250 mg/mL (1 mL) injection 08-20 00:00: 00 01-16 04:59 :00 No [id number] 250mg 1 mL by Intramuscu lar route weekly for 22 doses. [facility] HYDROXYprog est,PF,,pre g presv, 250 mg/mL (1 mL) injection 08-20 00:00: 00 01-16 04:59 :00 No [id number] 250mg 1 mL by Intramuscu lar route weekly for 22 doses. [facility] HYDROXYprog est,PF,,pre g presv, 250 mg/mL (1 mL) injection 08-20 00:00: 00 01-16 04:59 :00 No [id number] 250mg 1 mL by Intramuscu lar route weekly for 22 doses. [facility] HYDROXYprog est,PF,,pre g presv, 250 mg/mL (1 mL) injection 08-20 00:00: 00 01-16 04:59 :00 No [id number] 250mg 1 mL by Intramuscu lar route weekly for 22 doses. [facility] HYDROXYprog est,PF,,pre g presv, 250 mg/mL (1 mL) injection 08-20 00:00: 00 01-16 04:59 :00 No [id number] 250mg 1 mL by Intramuscu lar route weekly for 22 doses. [facility] HYDROXYprog est,PF,,pre g presv, 250 mg/mL (1 mL) injection 08-20 00:00: 00 01-16 04:59 :00 No [id number] 250mg 1 mL by Intramuscu lar route weekly for 22 doses. [facility] HYDROXYprog est,PF,,pre g presv, 250 mg/mL (1 mL) injection 08-20 00:00: 00 01-16 04:59 :00 No [id number] 250mg 1 mL by Intramuscu lar route weekly for 22 doses. [facility] HYDROXYprog est,PF,,pre g presv, 250 mg/mL (1 mL) injection 08-20 00:00: 00 01-16 04:59 :00 No [id number] 250mg 1 mL by Intramuscu lar route weekly for 22 doses. [facility] HYDROXYprog est,PF,,pre g presv, 250 mg/mL (1 mL) injection 08-20 00:00: 00 01-16 04:59 :00 No [id number] 250mg 1 mL by Intramuscu lar route weekly for 22 doses. [facility] cefTRIAXone (ROCEPHIN) injection 250 mg 8-15 07:15: 00 03-22 06:17 :00 No 250mg 250 mg, Intramuscu lar, ONCE, 1 dose, 03/22/20 at 0215, ARA
Re ason for Anti-Infec tive: Empiric Therapy for Suspected Infection< br>Empiric Therapy Site: Pelvic
Duration of therapy: 72 hours [facility] azithromyci n (ZITHROMAX) tablet 1,000 mg 03-22 07:15: 00 03-22 06:16 :00 No 1000mg 1,000 mg, Oral, ONCE, 1 dose, 03/22/20 at 0215, ARA
Re ason for Anti-Infec tive: Empiric Therapy for Suspected Infection< br>Empiric Therapy Site: Pelvic
Duration of therapy: 72 hours [facility] ketorolac (TORADOL) injection 30 mg 03-22 05:15: 00 03-22 04:14 :00 No 30mg 30 mg, Slow IV Push, ONCE, 1 dose, 03/22/20 at 0015, Routine
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 [facility] metroNIDAZO LE 500 mg tablet 03-22 00:00: 04-06 04:59 :00 No [id number] 500mg Take 1 tablet by mouth 2 (two) times daily for 14 days. [facility] metroNIDAZO LE 500 mg tablet 03-22 00:00: 04-06 04:59 :00 No [id number] 500mg Take 1 tablet by mouth 2 (two) times daily for 14 days. [facility] metroNIDAZO LE 500 mg tablet 03-22 00:00: 00 04-06 04:59 :00 No [id number] 500mg Take 1 tablet by mouth 2 (two) times daily for 14 days. [facility] metroNIDAZO LE 500 mg tablet 03-22 00:00: 00 04-06 04:59 :00 No [id number] 500mg Take 1 tablet by mouth 2 (two) times daily for 14 days. [facility] cefTRIAXone (ROCEPHIN) injection 250 mg 02-25 23:30: 00 Yes 250mg 250 mg, Intramuscu lar, Q24H, First dose on Tue02/26/20 at 1830, Until Discontinu ed, ARA
Re ason for Anti-Infec tive: Documented Infection< br>Documen kareen Infection Site: Pelvic
Duration of Therapy: Other (see Comments) [facility] azithromyci n (ZITHROMAX) tablet 1,000 mg 02-25 23:30: 00 02-25 23:39 :00 No 1000mg 1,000 mg, Oral, ONCE, 1 dose, Tue02/26/20 at 1830, ARA
Re ason for Anti-Infec tive: Documented Infection< br>Documen kareen Infection Site: Pelvic
Duration of Therapy: Other (see Comments) [facility] ketorolac (TORADOL) injection 15 mg 02-25 23:15: 02-25 22:18 :00 No 15mg 15 mg, Slow IV Push, ONCE, 1 dose, Tue02/26/20 at 1815, ARA
Fa culty member approving Restricted medication : EVANGELIST BONNER [facility] ondansetron (ZOFRAN (PF)) injection 4 mg 02-25 23:15: 02-25 22:21 :00 No 4mg 4 mg, Slow IV Push, ONCE, 1 dose, Tue02/26/20 at 1815, ARA [facility] morpHINE injection 4 mg 02-25 23:15: 00 02-25 22:21 :00 No 4mg 4 mg, Slow IV Push, ONCE, 1 dose, Counts Include [facility] 02/26/20 at 1815, STAT [facility] ibuprofen 800 mg tablet 02-25 00:00: 00 Yes [id number] 800mg Take 1 tablet by mouth every 6 (six) hours as needed for Pain (scale 4-6). [facility] ibuprofen 800 mg tablet 02-25 00:00: 00 Yes [id number] 800mg Take 1 tablet by mouth every 6 (six) hours as needed for Pain (scale 4-6). [facility] ibuprofen 800 mg tablet 02-25 00:00: 00 Yes [id number] 800mg Take 1 tablet by mouth every 6 (six) hours as needed for Pain (scale 4-6). [facility] ibuprofen 800 mg tablet 02-25 00:00: 00 Yes [id number] 800mg Take 1 tablet by mouth every 6 (six) hours as needed for Pain (scale 4-6). [facility] ibuprofen 800 mg tablet 02-25 00:00: 00 Yes [id number] 800mg Take 1 tablet by mouth every 6 (six) hours as needed for Pain (scale 4-6). [facility] ibuprofen 800 mg tablet 02-25 00:00: 00 Yes [id number] 800mg Take 1 tablet by mouth every 6 (six) hours as needed for Pain (scale 4-6). [facility] ibuprofen 800 mg tablet 02-25 00:00: 00 Yes [id number] 800mg Take 1 tablet by mouth every 6 (six) hours as needed for Pain (scale 4-6). [facility] ibuprofen 800 mg tablet 02-25 00:00: 00 Yes [id number] 800mg Take 1 tablet by mouth every 6 (six) hours as needed for Pain (scale 4-6). [facility] ibuprofen 800 mg tablet 02-25 00:00: 00 Yes [id number] 800mg Take 1 tablet by mouth every 6 (six) hours as needed for Pain (scale 4-6). [facility] ibuprofen 800 mg tablet 02-25 00:00: 00 Yes [id number] 800mg Take 1 tablet by mouth every 6 (six) hours as needed for Pain (scale 4-6). [facility] ibuprofen 800 mg tablet 0 02-25 00:00: 00 Yes [id number] 800mg Take 1 tablet by mouth every 6 (six) hours as needed for Pain (scale 4-6). [facility] ibuprofen 800 mg tablet 0 02-25 00:00: 00 Yes [id number] 800mg Take 1 tablet by mouth every 6 (six) hours as needed for Pain (scale 4-6). [facility] ibuprofen 800 mg tablet 0 02-25 00:00: 00 Yes [id number] 800mg Take 1 tablet by mouth every 6 (six) hours as needed for Pain (scale 4-6). [facility] ibuprofen 800 mg tablet 0 02-25 00:00: 00 Yes [id number] 800mg Take 1 tablet by mouth every 6 (six) hours as needed for Pain (scale 4-6). [facility] ibuprofen 800 mg tablet 0 02-25 00:00: 00 Yes [id number] 800mg Take 1 tablet by mouth every 6 (six) hours as needed for Pain (scale 4-6). [facility] ibuprofen 800 mg tablet 0 02-25 00:00: 00 Yes [id number] 800mg Take 1 tablet by mouth every 6 (six) hours as needed for Pain (scale 4-6). [facility] ibuprofen 800 mg tablet 0 02-25 00:00: 00 Yes [id number] 800mg Take 1 tablet by mouth every 6 (six) hours as needed for Pain (scale 4-6). [facility] ibuprofen 800 mg tablet 0 02-25 00:00: 00 Yes [id number] 800mg Take 1 tablet by mouth every 6 (six) hours as needed for Pain (scale 4-6). [facility] ibuprofen 800 mg tablet 0 02-25 00:00: 00 Yes [id number] 800mg Take 1 tablet by mouth every 6 (six) hours as needed for Pain (scale 4-6). [facility] ibuprofen 800 mg tablet 0 02-25 00:00: 00 Yes [id number] 800mg Take 1 tablet by mouth every 6 (six) hours as needed for Pain (scale 4-6). [facility] ibuprofen 800 mg tablet 2019-0 02-25 00:00: 00 Yes [id number] 800mg Take 1 tablet by mouth every 6 (six) hours as needed for Pain (scale 4-6). [facility] ibuprofen 800 mg tablet 0 02-25 00:00: 00 Yes [id number] 800mg Take 1 tablet by mouth every 6 (six) hours as needed for Pain (scale 4-6). [facility] ibuprofen 800 mg tablet 2019-0 02-25 00:00: 00 Yes [id number] 800mg Take 1 tablet by mouth every 6 (six) hours as needed for Pain (scale 4-6). [facility] ibuprofen 800 mg tablet 0 02-25 00:00: 00 Yes [id number] 800mg Take 1 tablet by mouth every 6 (six) hours as needed for Pain (scale 4-6). [facility] ibuprofen 800 mg tablet 0 02-25 00:00: 00 Yes [id number] 800mg Take 1 tablet by mouth every 6 (six) hours as needed for Pain (scale 4-6). [facility] ibuprofen 800 mg tablet 0 02-25 00:00: 00 Yes [id number] 800mg Take 1 tablet by mouth every 6 (six) hours as needed for Pain (scale 4-6). [facility] ibuprofen 800 mg tablet 2019-0 02-25 00:00: 00 Yes [id number] 800mg Take 1 tablet by mouth every 6 (six) hours as needed for Pain (scale 4-6). [facility] ibuprofen 800 mg tablet 2019-0 - 00:00: 00 Yes [id number] 800mg Take 1 tablet by mouth every 6 (six) hours as needed for Pain (scale 4-6). [facility] ibuprofen 800 mg tablet 2019-0 7- 00:00: 00 Yes [id number] 800mg Take 1 tablet by mouth every 6 (six) hours as needed for Pain (scale 4-6). [facility] ibuprofen 800 mg tablet 0 02-25 00:00: 00 Yes [id number] 800mg Take 1 tablet by mouth every 6 (six) hours as needed for Pain (scale 4-6). [facility] ibuprofen 800 mg tablet 0 02-25 00:00: 00 Yes [id number] 800mg Take 1 tablet by mouth every 6 (six) hours as needed for Pain (scale 4-6). [facility] ibuprofen 800 mg tablet 0 02-25 00:00: 00 Yes [id number] 800mg Take 1 tablet by mouth every 6 (six) hours as needed for Pain (scale 4-6). [facility] ibuprofen 800 mg tablet 0 02-25 00:00: 00 Yes [id number] 800mg Take 1 tablet by mouth every 6 (six) hours as needed for Pain (scale 4-6). [facility] ibuprofen 800 mg tablet 0 02-25 00:00: 00 Yes [id number] 800mg Take 1 tablet by mouth every 6 (six) hours as needed for Pain (scale 4-6). [facility] ibuprofen 800 mg tablet 0 02-25 00:00: 00 Yes [id number] 800mg Take 1 tablet by mouth every 6 (six) hours as needed for Pain (scale 4-6). [facility] ibuprofen 800 mg tablet 0 02-25 00:00: 00 Yes [id number] 800mg Take 1 tablet by mouth every 6 (six) hours as needed for Pain (scale 4-6). [facility] ibuprofen 800 mg tablet 0 02-25 00:00: 00 Yes [id number] 800mg Take 1 tablet by mouth every 6 (six) hours as needed for Pain (scale 4-6). [facility] ibuprofen 800 mg tablet 0 02-25 00:00: 00 Yes [id number] 800mg Take 1 tablet by mouth every 6 (six) hours as needed for Pain (scale 4-6). [facility] ibuprofen 800 mg tablet 0 02-25 00:00: 00 Yes [id number] 800mg Take 1 tablet by mouth every 6 (six) hours as needed for Pain (scale 4-6). [facility] ibuprofen 800 mg tablet 0 02-25 00:00: 00 Yes [id number] 800mg Take 1 tablet by mouth every 6 (six) hours as needed for Pain (scale 4-6). [facility] ibuprofen 800 mg tablet 02-25 00:00: 00 Yes [id number] 800mg Take 1 tablet by mouth every 6 (six) hours as needed for Pain (scale 4-6). [facility] ibuprofen 800 mg tablet 0 02-25 00:00: 00 Yes [id number] 800mg Take 1 tablet by mouth every 6 (six) hours as needed for Pain (scale 4-6). [facility] ibuprofen 800 mg tablet 02-25 00:00: 00 Yes [id number] 800mg Take 1 tablet by mouth every 6 (six) hours as needed for Pain (scale 4-6). [facility] ibuprofen 800 mg tablet 0 02-25 00:00: 00 Yes [id number] 800mg Take 1 tablet by mouth every 6 (six) hours as needed for Pain (scale 4-6). [facility] ibuprofen 800 mg tablet 0 02-25 00:00: 00 Yes [id number] 800mg Take 1 tablet by mouth every 6 (six) hours as needed for Pain (scale 4-6). [facility] ibuprofen 800 mg tablet 0 02-25 00:00: 00 Yes [id number] 800mg Take 1 tablet by mouth every 6 (six) hours as needed for Pain (scale 4-6). [facility] ibuprofen 800 mg tablet 0 02-25 00:00: 00 Yes [id number] 800mg Take 1 tablet by mouth every 6 (six) hours as needed for Pain (scale 4-6). [facility] ibuprofen 800 mg tablet 0 02-25 00:00: 00 Yes [id number] 800mg Take 1 tablet by mouth every 6 (six) hours as needed for Pain (scale 4-6). [facility] ibuprofen 800 mg tablet 0 02-25 00:00: 00 Yes [id number] 800mg Take 1 tablet by mouth every 6 (six) hours as needed for Pain (scale 4-6). [facility] ibuprofen 800 mg tablet 0 02-25 00:00: 00 Yes [id number] 800mg Take 1 tablet by mouth every 6 (six) hours as needed for Pain (scale 4-6). [facility] ibuprofen 800 mg tablet 0 02-25 00:00: 00 Yes [id number] 800mg Take 1 tablet by mouth every 6 (six) hours as needed for Pain (scale 4-6). [facility] ibuprofen 800 mg tablet 0 02-25 00:00: 00 Yes [id number] 800mg Take 1 tablet by mouth every 6 (six) hours as needed for Pain (scale 4-6). [facility] ibuprofen 800 mg tablet 0 02-25 00:00: 00 Yes [id number] 800mg Take 1 tablet by mouth every 6 (six) hours as needed for Pain (scale 4-6). [facility] ibuprofen 800 mg tablet 0 02-25 00:00: 00 Yes [id number] 800mg Take 1 tablet by mouth every 6 (six) hours as needed for Pain (scale 4-6). [facility] ibuprofen 800 mg tablet 0 02-25 00:00: 00 Yes [id number] 800mg Take 1 tablet by mouth every 6 (six) hours as needed for Pain (scale 4-6). [facility] ibuprofen 800 mg tablet 0 02-25 00:00: 00 Yes [id number] 800mg Take 1 tablet by mouth every 6 (six) hours as needed for Pain (scale 4-6). [facility] ibuprofen 800 mg tablet 0 02-25 00:00: 00 Yes [id number] 800mg Take 1 tablet by mouth every 6 (six) hours as needed for Pain (scale 4-6). [facility] ibuprofen 800 mg tablet 2019-0 02-25 00:00: 00 Yes [id number] 800mg Take 1 tablet by mouth every 6 (six) hours as needed for Pain (scale 4-6). [facility] ibuprofen 800 mg tablet 0 02-25 00:00: 00 Yes [id number] 800mg Take 1 tablet by mouth every 6 (six) hours as needed for Pain (scale 4-6). [facility] ibuprofen 800 mg tablet 0 02-25 00:00: 00 Yes [id number] 800mg Take 1 tablet by mouth every 6 (six) hours as needed for Pain (scale 4-6). [facility] ibuprofen 800 mg tablet 0 02-25 00:00: 00 Yes [id number] 800mg Take 1 tablet by mouth every 6 (six) hours as needed for Pain (scale 4-6). [facility] ibuprofen 800 mg tablet 0 02-25 00:00: 00 Yes [id number] 800mg Take 1 tablet by mouth every 6 (six) hours as needed for Pain (scale 4-6). [facility] ibuprofen 800 mg tablet 02-25 00:00: 00 Yes [id number] 800mg Take 1 tablet by mouth every 6 (six) hours as needed for Pain (scale 4-6). [facility] ibuprofen 800 mg tablet 0 02-25 00:00: 00 Yes [id number] 800mg Take 1 tablet by mouth every 6 (six) hours as needed for Pain (scale 4-6). [facility] ibuprofen 800 mg tablet 02-25 00:00: 00 Yes [id number] 800mg Take 1 tablet by mouth every 6 (six) hours as needed for Pain (scale 4-6). [facility] ibuprofen 800 mg tablet 0 02-25 00:00: 00 Yes [id number] 800mg Take 1 tablet by mouth every 6 (six) hours as needed for Pain (scale 4-6). [facility] ibuprofen 800 mg tablet 0 02-25 00:00: 00 Yes [id number] 800mg Take 1 tablet by mouth every 6 (six) hours as needed for Pain (scale 4-6). [facility] ibuprofen 800 mg tablet 0 02-25 00:00: 00 03-25 00:00 :00 No [id number] 800mg Take 1 tablet by mouth every 6 (six) hours as needed for Pain (scale 4-6). [facility] doxycycline hyclate 100 mg capsule 02-25 00:00: 03-12 04:59 :00 No [id number] 100mg Take 1 capsule by mouth 2 (two) times daily for 14 days. [facility] metroNIDAZO LE 500 mg tablet 02-25 00:00: 03-12 04:59 :00 No [id number] 500mg Take 1 tablet by mouth 2 (two) times daily for 14 days. [facility] levonorgest rel (LILETTA) IUD 1 Device 10-05 23:00: 00 10-05 21:54 :00 No 1{devic e} [facility] levonorgest rel (LILETTA) IUD 1 Device 10-05 23:00: 00 10-05 21:54 :00 No 1{devic e} 1 Device, Intrauteri ne, ONCE, 1 dose, 10/05/19 at 1700, Routine [facility] levonorgest rel (LILETTA) IUD 1 Device 10-05 23:00: 00 10-05 21:54 :00 No 1{devic e} [facility] levonorgest rel (LILETTA) IUD 1 Device 10-05 23:00: 00 10-05 21:54 :00 No 1{devic e} 1 Device, Intrauteri ne, ONCE, 1 dose, 10/05/19 at 1700, Routine [facility] vitamin w/FA tablet 2018-08 00:00: 00 Yes [id number] 1{tbl} Take 1 tablet by mouth daily. [facility] docusate calcium 240 mg capsule 2018-08 00:00: 00 Yes [id number] 240mg Take 1 capsule by mouth once daily as needed for Constipati on. [facility] ferrous sulfate 325 mg (65 mg iron) tablet 2018-08 00:00: 00 Yes [id number] 325mg Take 1 tablet by mouth 2 (two) times daily. [facility] ibuprofen 600 mg tablet 2018-08 00:00: 00 Yes [id number] 600mg Take 1 tablet by mouth every 6 (six) hours as needed for Pain (scale 1-3) or Pain (scale 4-6) (Pain). Take with food or milk. [facility] vitamin w/FA tablet 2018-08 00:00: 00 Yes [id number] 1{tbl} Take 1 tablet by mouth daily. [facility] docusate calcium 240 mg capsule 2018-08 00:00: 00 Yes [id number] 240mg Take 1 capsule by mouth once daily as needed for Constipati on. [facility] ferrous sulfate 325 mg (65 mg iron) tablet 2018-08 00:00: 00 Yes [id number] 325mg Take 1 tablet by mouth 2 (two) times daily. [facility] ibuprofen 600 mg tablet 2018-08 00:00: 00 Yes [id number] 600mg Take 1 tablet by mouth every 6 (six) hours as needed for Pain (scale 1-3) or Pain (scale 4-6) (Pain). Take with food or milk. [facility] vitamin w/FA tablet 2018-08 00:00: 00 Yes [id number] 1{tbl} Take 1 tablet by mouth daily. [facility] docusate calcium 240 mg capsule 2018-08 00:00: 00 Yes [id number] 240mg Take 1 capsule by mouth once daily as needed for Constipati on. [facility] ferrous sulfate 325 mg (65 mg iron) tablet 2018-08 00:00: 00 Yes [id number] 325mg Take 1 tablet by mouth 2 (two) times daily. [facility] ibuprofen 600 mg tablet 2018-08 00:00: 00 Yes [id number] 600mg Take 1 tablet by mouth every 6 (six) hours as needed for Pain (scale 1-3) or Pain (scale 4-6) (Pain). Take with food or milk. [facility] vitamin w/FA tablet 2018-08 00:00: 00 Yes [id number] 1{tbl} Take 1 tablet by mouth daily. [facility] docusate calcium 240 mg capsule 2018-08 00:00: 00 Yes [id number] 240mg Take 1 capsule by mouth once daily as needed for Constipati on. [facility] ferrous sulfate 325 mg (65 mg iron) tablet 2018-08 00:00: 00 Yes [id number] 325mg Take 1 tablet by mouth 2 (two) times daily. [facility] ibuprofen 600 mg tablet 2018-08 00:00: 00 Yes [id number] 600mg Take 1 tablet by mouth every 6 (six) hours as needed for Pain (scale 1-3) or Pain (scale 4-6) (Pain). Take with food or milk. [facility] vitamin w/FA tablet 2018-08 00:00: 00 Yes [id number] 1{tbl} Take 1 tablet by mouth daily. [facility] docusate calcium 240 mg capsule 2018-08 00:00: 00 Yes [id number] 240mg Take 1 capsule by mouth once daily as needed for Constipati on. [facility] ferrous sulfate 325 mg (65 mg iron) tablet 2018-08 00:00: 00 Yes [id number] 325mg Take 1 tablet by mouth 2 (two) times daily. [facility] ibuprofen 600 mg tablet 2018-08 00:00: 00 Yes [id number] 600mg Take 1 tablet by mouth every 6 (six) hours as needed for Pain (scale 1-3) or Pain (scale 4-6) (Pain). Take with food or milk. [facility] vitamin w/FA tablet 2018-08 00:00: 00 Yes [id number] 1{tbl} Take 1 tablet by mouth daily. [facility] docusate calcium 240 mg capsule 2018-08 00:00: 00 Yes [id number] 240mg Take 1 capsule by mouth once daily as needed for Constipati on. [facility] ferrous sulfate 325 mg (65 mg iron) tablet 2018-08 00:00: 00 Yes [id number] 325mg Take 1 tablet by mouth 2 (two) times daily. [facility] ibuprofen 600 mg tablet 2018-08 00:00: 00 Yes [id number] 600mg Take 1 tablet by mouth every 6 (six) hours as needed for Pain (scale 1-3) or Pain (scale 4-6) (Pain). Take with food or milk. [facility] vitamin w/FA tablet 2018-08 00:00: 00 Yes [id number] 1{tbl} Take 1 tablet by mouth daily. [facility] docusate calcium 240 mg capsule 2018-08 00:00: 00 Yes [id number] 240mg Take 1 capsule by mouth once daily as needed for Constipati on. [facility] ferrous sulfate 325 mg (65 mg iron) tablet 2018-08 00:00: 00 Yes [id number] 325mg Take 1 tablet by mouth 2 (two) times daily. [facility] ibuprofen 600 mg tablet 2018-08 00:00: 00 Yes [id number] 600mg Take 1 tablet by mouth every 6 (six) hours as needed for Pain (scale 1-3) or Pain (scale 4-6) (Pain). Take with food or milk. [facility] vitamin w/FA tablet 2018-08 00:00: 00 Yes [id number] 1{tbl} Take 1 tablet by mouth daily. [facility] docusate calcium 240 mg capsule 2018-08 00:00: 00 Yes [id number] 240mg Take 1 capsule by mouth once daily as needed for Constipati on. [facility] ferrous sulfate 325 mg (65 mg iron) tablet 2018-08 00:00: 00 Yes [id number] 325mg Take 1 tablet by mouth 2 (two) times daily. [facility] ibuprofen 600 mg tablet 2018-08 00:00: 00 Yes [id number] 600mg Take 1 tablet by mouth every 6 (six) hours as needed for Pain (scale 1-3) or Pain (scale 4-6) (Pain). Take with food or milk. [facility] vitamin w/FA tablet 2018-08 00:00: 00 Yes [id number] 1{tbl} Take 1 tablet by mouth daily. [facility] docusate calcium 240 mg capsule 2018-08 00:00: 00 Yes [id number] 240mg Take 1 capsule by mouth once daily as needed for Constipati on. [facility] ferrous sulfate 325 mg (65 mg iron) tablet 2018-08 00:00: 00 Yes [id number] 325mg Take 1 tablet by mouth 2 (two) times daily. [facility] ibuprofen 600 mg tablet 2018-08 00:00: 00 Yes [id number] 600mg Take 1 tablet by mouth every 6 (six) hours as needed for Pain (scale 1-3) or Pain (scale 4-6) (Pain). Take with food or milk. [facility] vitamin w/FA tablet 2018-08 00:00: 00 Yes [id number] 1{tbl} Take 1 tablet by mouth daily. [facility] docusate calcium 240 mg capsule 2018-08 00:00: 00 Yes [id number] 240mg Take 1 capsule by mouth once daily as needed for Constipati on. [facility] ferrous sulfate 325 mg (65 mg iron) tablet 2018-08 00:00: 00 Yes [id number] 325mg Take 1 tablet by mouth 2 (two) times daily. [facility] ibuprofen 600 mg tablet 2018-08 00:00: 00 Yes [id number] 600mg Take 1 tablet by mouth every 6 (six) hours as needed for Pain (scale 1-3) or Pain (scale 4-6) (Pain). Take with food or milk. [facility] vitamin w/FA tablet 2018-08 00:00: 00 Yes [id number] 1{tbl} Take 1 tablet by mouth daily. [facility] docusate calcium 240 mg capsule 2018-08 00:00: 00 Yes [id number] 240mg Take 1 capsule by mouth once daily as needed for Constipati on. [facility] ferrous sulfate 325 mg (65 mg iron) tablet 2018-08 00:00: 00 Yes [id number] 325mg Take 1 tablet by mouth 2 (two) times daily. [facility] ibuprofen 600 mg tablet 2018-08 00:00: 00 Yes [id number] 600mg Take 1 tablet by mouth every 6 (six) hours as needed for Pain (scale 1-3) or Pain (scale 4-6) (Pain). Take with food or milk. [facility] vitamin w/FA tablet 2018-08 00:00: 00 Yes [id number] 1{tbl} Take 1 tablet by mouth daily. [facility] docusate calcium 240 mg capsule 2018-08 00:00: 00 Yes [id number] 240mg Take 1 capsule by mouth once daily as needed for Constipati on. [facility] ferrous sulfate 325 mg (65 mg iron) tablet 2018-08 00:00: 00 Yes [id number] 325mg Take 1 tablet by mouth 2 (two) times daily. [facility] ibuprofen 600 mg tablet 2018-08 00:00: 00 Yes [id number] 600mg Take 1 tablet by mouth every 6 (six) hours as needed for Pain (scale 1-3) or Pain (scale 4-6) (Pain). Take with food or milk. [facility] vitamin w/FA tablet 2018-08 00:00: 00 Yes [id number] 1{tbl} Take 1 tablet by mouth daily. [facility] docusate calcium 240 mg capsule 2018-08 00:00: 00 Yes [id number] 240mg Take 1 capsule by mouth once daily as needed for Constipati on. [facility] ferrous sulfate 325 mg (65 mg iron) tablet 2018-08 00:00: 00 Yes [id number] 325mg Take 1 tablet by mouth 2 (two) times daily. [facility] ibuprofen 600 mg tablet 2018-08 00:00: 00 Yes [id number] 600mg Take 1 tablet by mouth every 6 (six) hours as needed for Pain (scale 1-3) or Pain (scale 4-6) (Pain). Take with food or milk. [facility] vitamin w/FA tablet 2018-08 00:00: 00 Yes [id number] 1{tbl} Take 1 tablet by mouth daily. [facility] docusate calcium 240 mg capsule 2018-08 00:00: 00 Yes [id number] 240mg Take 1 capsule by mouth once daily as needed for Constipati on. [facility] ferrous sulfate 325 mg (65 mg iron) tablet 2018-08 00:00: 00 Yes [id number] 325mg Take 1 tablet by mouth 2 (two) times daily. [facility] ibuprofen 600 mg tablet 2018-08 00:00: 00 Yes [id number] 600mg Take 1 tablet by mouth every 6 (six) hours as needed for Pain (scale 1-3) or Pain (scale 4-6) (Pain). Take with food or milk. [facility] vitamin w/FA tablet 2018-08 00:00: 00 Yes [id number] 1{tbl} Take 1 tablet by mouth daily. [facility] docusate calcium 240 mg capsule 2018-08 00:00: 00 Yes [id number] 240mg Take 1 capsule by mouth once daily as needed for Constipati on. [facility] ferrous sulfate 325 mg (65 mg iron) tablet 2018-08 00:00: 00 Yes [id number] 325mg Take 1 tablet by mouth 2 (two) times daily. [facility] ibuprofen 600 mg tablet 2018-08 00:00: 00 Yes [id number] 600mg Take 1 tablet by mouth every 6 (six) hours as needed for Pain (scale 1-3) or Pain (scale 4-6) (Pain). Take with food or milk. [facility] vitamin w/FA tablet 2018-08 00:00: 00 Yes [id number] 1{tbl} Take 1 tablet by mouth daily. [facility] docusate calcium 240 mg capsule 2018-08 00:00: 00 Yes [id number] 240mg Take 1 capsule by mouth once daily as needed for Constipati on. [facility] ferrous sulfate 325 mg (65 mg iron) tablet 2018-08 00:00: 00 Yes [id number] 325mg Take 1 tablet by mouth 2 (two) times daily. [facility] ibuprofen 600 mg tablet 2018-08 00:00: 00 Yes [id number] 600mg Take 1 tablet by mouth every 6 (six) hours as needed for Pain (scale 1-3) or Pain (scale 4-6) (Pain). Take with food or milk. [facility] vitamin w/FA tablet 2018-08 00:00: 00 Yes [id number] 1{tbl} Take 1 tablet by mouth daily. [facility] docusate calcium 240 mg capsule 2018-08 00:00: 00 Yes [id number] 240mg Take 1 capsule by mouth once daily as needed for Constipati on. [facility] ferrous sulfate 325 mg (65 mg iron) tablet 2018-08 00:00: 00 Yes [id number] 325mg Take 1 tablet by mouth 2 (two) times daily. [facility] ibuprofen 600 mg tablet 2018-08 00:00: 00 Yes [id number] 600mg Take 1 tablet by mouth every 6 (six) hours as needed for Pain (scale 1-3) or Pain (scale 4-6) (Pain). Take with food or milk. [facility] vitamin w/FA tablet 2018-08 00:00: 00 Yes [id number] 1{tbl} Take 1 tablet by mouth daily. [facility] docusate calcium 240 mg capsule 2018-08 00:00: 00 Yes [id number] 240mg Take 1 capsule by mouth once daily as needed for Constipati on. [facility] ferrous sulfate 325 mg (65 mg iron) tablet 2018-08 00:00: 00 Yes [id number] 325mg Take 1 tablet by mouth 2 (two) times daily. [facility] ibuprofen 600 mg tablet 2018-08 00:00: 00 Yes [id number] 600mg Take 1 tablet by mouth every 6 (six) hours as needed for Pain (scale 1-3) or Pain (scale 4-6) (Pain). Take with food or milk. [facility] vitamin w/FA tablet 2018-08 00:00: 00 Yes [id number] 1{tbl} Take 1 tablet by mouth daily. [facility] docusate calcium 240 mg capsule 2018-08 00:00: 00 Yes [id number] 240mg Take 1 capsule by mouth once daily as needed for Constipati on. [facility] ferrous sulfate 325 mg (65 mg iron) tablet 2018-08 00:00: 00 Yes [id number] 325mg Take 1 tablet by mouth 2 (two) times daily. [facility] ibuprofen 600 mg tablet 2018-08 00:00: 00 Yes [id number] 600mg Take 1 tablet by mouth every 6 (six) hours as needed for Pain (scale 1-3) or Pain (scale 4-6) (Pain). Take with food or milk. [facility] vitamin w/FA tablet 2018-08 00:00: 00 Yes [id number] 1{tbl} Take 1 tablet by mouth daily. [facility] docusate calcium 240 mg capsule 2018-08 00:00: 00 Yes [id number] 240mg Take 1 capsule by mouth once daily as needed for Constipati on. [facility] ferrous sulfate 325 mg (65 mg iron) tablet 2018-08 00:00: 00 Yes [id number] 325mg Take 1 tablet by mouth 2 (two) times daily. [facility] ibuprofen 600 mg tablet 2018-08 00:00: 00 Yes [id number] 600mg Take 1 tablet by mouth every 6 (six) hours as needed for Pain (scale 1-3) or Pain (scale 4-6) (Pain). Take with food or milk. [facility] vitamin w/FA tablet 2018-08 00:00: 00 Yes [id number] 1{tbl} Take 1 tablet by mouth daily. [facility] docusate calcium 240 mg capsule 2018-08 00:00: 00 Yes [id number] 240mg Take 1 capsule by mouth once daily as needed for Constipati on. [facility] ferrous sulfate 325 mg (65 mg iron) tablet 2018-08 00:00: 00 Yes [id number] 325mg Take 1 tablet by mouth 2 (two) times daily. [facility] ibuprofen 600 mg tablet 2018-08 00:00: 00 Yes [id number] 600mg Take 1 tablet by mouth every 6 (six) hours as needed for Pain (scale 1-3) or Pain (scale 4-6) (Pain). Take with food or milk. [facility] vitamin w/FA tablet 2018-08 00:00: 00 Yes [id number] 1{tbl} Take 1 tablet by mouth daily. [facility] docusate calcium 240 mg capsule 2018-08 00:00: 00 Yes [id number] 240mg Take 1 capsule by mouth once daily as needed for Constipati on. [facility] ferrous sulfate 325 mg (65 mg iron) tablet 2018-08 00:00: 00 Yes [id number] 325mg Take 1 tablet by mouth 2 (two) times daily. [facility] ibuprofen 600 mg tablet 2018-08 00:00: 00 Yes [id number] 600mg Take 1 tablet by mouth every 6 (six) hours as needed for Pain (scale 1-3) or Pain (scale 4-6) (Pain). Take with food or milk. [facility] vitamin w/FA tablet 2018-08 00:00: 00 Yes [id number] 1{tbl} Take 1 tablet by mouth daily. [facility] docusate calcium 240 mg capsule 2018-08 00:00: 00 Yes [id number] 240mg Take 1 capsule by mouth once daily as needed for Constipati on. [facility] ferrous sulfate 325 mg (65 mg iron) tablet 2018-08 00:00: 00 Yes [id number] 325mg Take 1 tablet by mouth 2 (two) times daily. [facility] ibuprofen 600 mg tablet 2018-08 00:00: 00 Yes [id number] 600mg Take 1 tablet by mouth every 6 (six) hours as needed for Pain (scale 1-3) or Pain (scale 4-6) (Pain). Take with food or milk. [facility] vitamin w/FA tablet 2018-08 00:00: 00 Yes [id number] 1{tbl} Take 1 tablet by mouth daily. [facility] docusate calcium 240 mg capsule 2018-08 00:00: 00 Yes [id number] 240mg Take 1 capsule by mouth once daily as needed for Constipati on. [facility] ferrous sulfate 325 mg (65 mg iron) tablet 2018-08 00:00: 00 Yes [id number] 325mg Take 1 tablet by mouth 2 (two) times daily. [facility] ibuprofen 600 mg tablet 2018-08 00:00: 00 Yes [id number] 600mg Take 1 tablet by mouth every 6 (six) hours as needed for Pain (scale 1-3) or Pain (scale 4-6) (Pain). Take with food or milk. [facility] vitamin w/FA tablet 2018-08 00:00: 00 Yes [id number] 1{tbl} Take 1 tablet by mouth daily. [facility] docusate calcium 240 mg capsule 2018-08 00:00: 00 Yes [id number] 240mg Take 1 capsule by mouth once daily as needed for Constipati on. [facility] ferrous sulfate 325 mg (65 mg iron) tablet 2018-08 00:00: 00 Yes [id number] 325mg Take 1 tablet by mouth 2 (two) times daily. [facility] ibuprofen 600 mg tablet 2018-08 00:00: 00 Yes [id number] 600mg Take 1 tablet by mouth every 6 (six) hours as needed for Pain (scale 1-3) or Pain (scale 4-6) (Pain). Take with food or milk. [facility] vitamin w/FA tablet 2018-08 00:00: 00 Yes [id number] 1{tbl} Take 1 tablet by mouth daily. [facility] docusate calcium 240 mg capsule 2018-08 00:00: 00 Yes [id number] 240mg Take 1 capsule by mouth once daily as needed for Constipati on. [facility] ferrous sulfate 325 mg (65 mg iron) tablet 2018-08 00:00: 00 Yes [id number] 325mg Take 1 tablet by mouth 2 (two) times daily. [facility] ibuprofen 600 mg tablet 2018-08 00:00: 00 Yes [id number] 600mg Take 1 tablet by mouth every 6 (six) hours as needed for Pain (scale 1-3) or Pain (scale 4-6) (Pain). Take with food or milk. [facility] vitamin w/FA tablet 2018-08 00:00: 00 Yes [id number] 1{tbl} Take 1 tablet by mouth daily. [facility] docusate calcium 240 mg capsule 2018-08 00:00: 00 Yes [id number] 240mg Take 1 capsule by mouth once daily as needed for Constipati on. [facility] ferrous sulfate 325 mg (65 mg iron) tablet 2018-08 00:00: 00 Yes [id number] 325mg Take 1 tablet by mouth 2 (two) times daily. [facility] ibuprofen 600 mg tablet 2018-08 00:00: 00 Yes [id number] 600mg Take 1 tablet by mouth every 6 (six) hours as needed for Pain (scale 1-3) or Pain (scale 4-6) (Pain). Take with food or milk. [facility] vitamin w/FA tablet 2018-08 00:00: 00 Yes [id number] 1{tbl} Take 1 tablet by mouth daily. [facility] docusate calcium 240 mg capsule 2018-08 00:00: 00 Yes [id number] 240mg Take 1 capsule by mouth once daily as needed for Constipati on. [facility] ferrous sulfate 325 mg (65 mg iron) tablet 2018-08 00:00: 00 Yes [id number] 325mg Take 1 tablet by mouth 2 (two) times daily. [facility] ibuprofen 600 mg tablet 2018-08 00:00: 00 Yes [id number] 600mg Take 1 tablet by mouth every 6 (six) hours as needed for Pain (scale 1-3) or Pain (scale 4-6) (Pain). Take with food or milk. [facility] vitamin w/FA tablet 2018-08 00:00: 00 Yes [id number] 1{tbl} Take 1 tablet by mouth daily. [facility] docusate calcium 240 mg capsule 2018-08 00:00: 00 Yes [id number] 240mg Take 1 capsule by mouth once daily as needed for Constipati on. [facility] ferrous sulfate 325 mg (65 mg iron) tablet 2018-08 00:00: 00 Yes [id number] 325mg Take 1 tablet by mouth 2 (two) times daily. [facility] ibuprofen 600 mg tablet 2018-08 00:00: 00 Yes [id number] 600mg Take 1 tablet by mouth every 6 (six) hours as needed for Pain (scale 1-3) or Pain (scale 4-6) (Pain). Take with food or milk. [facility] vitamin w/FA tablet 2018-08 00:00: 00 Yes [id number] 1{tbl} Take 1 tablet by mouth daily. [facility] docusate calcium 240 mg capsule 2018-08 00:00: 00 Yes [id number] 240mg Take 1 capsule by mouth once daily as needed for Constipati on. [facility] ferrous sulfate 325 mg (65 mg iron) tablet 2018-08 00:00: 00 Yes [id number] 325mg Take 1 tablet by mouth 2 (two) times daily. [facility] ibuprofen 600 mg tablet 2018-08 00:00: 00 Yes [id number] 600mg Take 1 tablet by mouth every 6 (six) hours as needed for Pain (scale 1-3) or Pain (scale 4-6) (Pain). Take with food or milk. [facility] vitamin w/FA tablet 2018-08 00:00: 00 Yes [id number] 1{tbl} Take 1 tablet by mouth daily. [facility] docusate calcium 240 mg capsule 2018-08 00:00: 00 Yes [id number] 240mg Take 1 capsule by mouth once daily as needed for Constipati on. [facility] ferrous sulfate 325 mg (65 mg iron) tablet 2018-08 00:00: 00 Yes [id number] 325mg Take 1 tablet by mouth 2 (two) times daily. [facility] ibuprofen 600 mg tablet 2018-08 00:00: 00 Yes [id number] 600mg Take 1 tablet by mouth every 6 (six) hours as needed for Pain (scale 1-3) or Pain (scale 4-6) (Pain). Take with food or milk. [facility] vitamin w/FA tablet 2018-08 00:00: 00 Yes [id number] 1{tbl} Take 1 tablet by mouth daily. [facility] docusate calcium 240 mg capsule 2018-08 00:00: 00 Yes [id number] 240mg Take 1 capsule by mouth once daily as needed for Constipati on. [facility] ferrous sulfate 325 mg (65 mg iron) tablet 2018-08 00:00: 00 Yes [id number] 325mg Take 1 tablet by mouth 2 (two) times daily. [facility] ibuprofen 600 mg tablet 2018-08 00:00: 00 Yes [id number] 600mg Take 1 tablet by mouth every 6 (six) hours as needed for Pain (scale 1-3) or Pain (scale 4-6) (Pain). Take with food or milk. [facility] vitamin w/FA tablet 2018-08 00:00: 00 Yes [id number] 1{tbl} Take 1 tablet by mouth daily. [facility] docusate calcium 240 mg capsule 2018-08 00:00: 00 Yes [id number] 240mg Take 1 capsule by mouth once daily as needed for Constipati on. [facility] ferrous sulfate 325 mg (65 mg iron) tablet 2018-08 00:00: 00 Yes [id number] 325mg Take 1 tablet by mouth 2 (two) times daily. [facility] ibuprofen 600 mg tablet 2018-08 00:00: 00 Yes [id number] 600mg Take 1 tablet by mouth every 6 (six) hours as needed for Pain (scale 1-3) or Pain (scale 4-6) (Pain). Take with food or milk. [facility] vitamin w/FA tablet 2018-08 00:00: 00 Yes [id number] 1{tbl} Take 1 tablet by mouth daily. [facility] docusate calcium 240 mg capsule 2018-08 00:00: 00 Yes [id number] 240mg Take 1 capsule by mouth once daily as needed for Constipati on. [facility] ferrous sulfate 325 mg (65 mg iron) tablet 2018-08 00:00: 00 Yes [id number] 325mg Take 1 tablet by mouth 2 (two) times daily. [facility] ibuprofen 600 mg tablet 2018-08 00:00: 00 Yes [id number] 600mg Take 1 tablet by mouth every 6 (six) hours as needed for Pain (scale 1-3) or Pain (scale 4-6) (Pain). Take with food or milk. [facility] vitamin w/FA tablet 2018-08 00:00: 00 Yes [id number] 1{tbl} Take 1 tablet by mouth daily. [facility] docusate calcium 240 mg capsule 2018-08 00:00: 00 Yes [id number] 240mg Take 1 capsule by mouth once daily as needed for Constipati on. [facility] ferrous sulfate 325 mg (65 mg iron) tablet 2018-08 00:00: 00 Yes [id number] 325mg Take 1 tablet by mouth 2 (two) times daily. [facility] ibuprofen 600 mg tablet 2018-08 00:00: 00 Yes [id number] 600mg Take 1 tablet by mouth every 6 (six) hours as needed for Pain (scale 1-3) or Pain (scale 4-6) (Pain). Take with food or milk. [facility] vitamin w/FA tablet 2018-08 00:00: 00 Yes [id number] 1{tbl} Take 1 tablet by mouth daily. [facility] docusate calcium 240 mg capsule 2018-08 00:00: 00 Yes [id number] 240mg Take 1 capsule by mouth once daily as needed for Constipati on. [facility] ferrous sulfate 325 mg (65 mg iron) tablet 2018-08 00:00: 00 Yes [id number] 325mg Take 1 tablet by mouth 2 (two) times daily. [facility] ibuprofen 600 mg tablet 2018-08 00:00: 00 Yes [id number] 600mg Take 1 tablet by mouth every 6 (six) hours as needed for Pain (scale 1-3) or Pain (scale 4-6) (Pain). Take with food or milk. [facility] vitamin w/FA tablet 2018-08 00:00: 00 Yes [id number] 1{tbl} Take 1 tablet by mouth daily. [facility] docusate calcium 240 mg capsule 2018-08 00:00: 00 Yes [id number] 240mg Take 1 capsule by mouth once daily as needed for Constipati on. [facility] ferrous sulfate 325 mg (65 mg iron) tablet 2018-08 00:00: 00 Yes [id number] 325mg Take 1 tablet by mouth 2 (two) times daily. [facility] ibuprofen 600 mg tablet 2018-08 00:00: 00 Yes [id number] 600mg Take 1 tablet by mouth every 6 (six) hours as needed for Pain (scale 1-3) or Pain (scale 4-6) (Pain). Take with food or milk. [facility] vitamin w/FA tablet 2018-08 00:00: 00 Yes [id number] 1{tbl} Take 1 tablet by mouth daily. [facility] docusate calcium 240 mg capsule 2018-08 00:00: 00 Yes [id number] 240mg Take 1 capsule by mouth once daily as needed for Constipati on. [facility] ferrous sulfate 325 mg (65 mg iron) tablet 2018-08 00:00: 00 Yes [id number] 325mg Take 1 tablet by mouth 2 (two) times daily. [facility] ibuprofen 600 mg tablet 2018-08 00:00: 00 Yes [id number] 600mg Take 1 tablet by mouth every 6 (six) hours as needed for Pain (scale 1-3) or Pain (scale 4-6) (Pain). Take with food or milk. [facility] vitamin w/FA tablet 2018-08 00:00: 00 Yes [id number] 1{tbl} Take 1 tablet by mouth daily. [facility] docusate calcium 240 mg capsule 2018-08 00:00: 00 Yes [id number] 240mg Take 1 capsule by mouth once daily as needed for Constipati on. [facility] ferrous sulfate 325 mg (65 mg iron) tablet 2018-08 00:00: 00 Yes [id number] 325mg Take 1 tablet by mouth 2 (two) times daily. [facility] ibuprofen 600 mg tablet 2018-08 00:00: 00 Yes [id number] 600mg Take 1 tablet by mouth every 6 (six) hours as needed for Pain (scale 1-3) or Pain (scale 4-6) (Pain). Take with food or milk. [facility] vitamin w/FA tablet 2018-08 00:00: 00 Yes [id number] 1{tbl} Take 1 tablet by mouth daily. [facility] docusate calcium 240 mg capsule 2018-08 00:00: 00 Yes [id number] 240mg Take 1 capsule by mouth once daily as needed for Constipati on. [facility] ferrous sulfate 325 mg (65 mg iron) tablet 2018-08 00:00: 00 Yes [id number] 325mg Take 1 tablet by mouth 2 (two) times daily. [facility] ibuprofen 600 mg tablet 2018-08 00:00: 00 Yes [id number] 600mg Take 1 tablet by mouth every 6 (six) hours as needed for Pain (scale 1-3) or Pain (scale 4-6) (Pain). Take with food or milk. [facility] vitamin w/FA tablet 2018-08 00:00: 00 Yes [id number] 1{tbl} Take 1 tablet by mouth daily. [facility] docusate calcium 240 mg capsule 2018-08 00:00: 00 Yes [id number] 240mg Take 1 capsule by mouth once daily as needed for Constipati on. [facility] ferrous sulfate 325 mg (65 mg iron) tablet 2018-08 00:00: 00 Yes [id number] 325mg Take 1 tablet by mouth 2 (two) times daily. [facility] ibuprofen 600 mg tablet 2018-08 00:00: 00 Yes [id number] 600mg Take 1 tablet by mouth every 6 (six) hours as needed for Pain (scale 1-3) or Pain (scale 4-6) (Pain). Take with food or milk. [facility] vitamin w/FA tablet 2018-08 00:00: 00 Yes [id number] 1{tbl} Take 1 tablet by mouth daily. [facility] docusate calcium 240 mg capsule 2018-08 00:00: 00 Yes [id number] 240mg Take 1 capsule by mouth once daily as needed for Constipati on. [facility] ferrous sulfate 325 mg (65 mg iron) tablet 2018-08 00:00: 00 Yes [id number] 325mg Take 1 tablet by mouth 2 (two) times daily. [facility] ibuprofen 600 mg tablet 2018-08 00:00: 00 Yes [id number] 600mg Take 1 tablet by mouth every 6 (six) hours as needed for Pain (scale 1-3) or Pain (scale 4-6) (Pain). Take with food or milk. [facility] vitamin w/FA tablet 2018-08 00:00: 00 Yes [id number] 1{tbl} Take 1 tablet by mouth daily. [facility] docusate calcium 240 mg capsule 2018-08 00:00: 00 Yes [id number] 240mg Take 1 capsule by mouth once daily as needed for Constipati on. [facility] ferrous sulfate 325 mg (65 mg iron) tablet 2018-08 00:00: 00 Yes [id number] 325mg Take 1 tablet by mouth 2 (two) times daily. [facility] ibuprofen 600 mg tablet 2018-08 00:00: 00 Yes [id number] 600mg Take 1 tablet by mouth every 6 (six) hours as needed for Pain (scale 1-3) or Pain (scale 4-6) (Pain). Take with food or milk. [facility] vitamin w/FA tablet 2018-08 00:00: 00 Yes [id number] 1{tbl} Take 1 tablet by mouth daily. [facility] docusate calcium 240 mg capsule 2018-08 00:00: 00 Yes [id number] 240mg Take 1 capsule by mouth once daily as needed for Constipati on. [facility] ferrous sulfate 325 mg (65 mg iron) tablet 2018-08 00:00: 00 Yes [id number] 325mg Take 1 tablet by mouth 2 (two) times daily. [facility] ibuprofen 600 mg tablet 2018-08 00:00: 00 Yes [id number] 600mg Take 1 tablet by mouth every 6 (six) hours as needed for Pain (scale 1-3) or Pain (scale 4-6) (Pain). Take with food or milk. [facility] vitamin w/FA tablet 2018-08 00:00: 00 Yes [id number] 1{tbl} Take 1 tablet by mouth daily. [facility] docusate calcium 240 mg capsule 2018-08 00:00: 00 Yes [id number] 240mg Take 1 capsule by mouth once daily as needed for Constipati on. [facility] ferrous sulfate 325 mg (65 mg iron) tablet 2018-08 00:00: 00 Yes [id number] 325mg Take 1 tablet by mouth 2 (two) times daily. [facility] ibuprofen 600 mg tablet 2018-08 00:00: 00 Yes [id number] 600mg Take 1 tablet by mouth every 6 (six) hours as needed for Pain (scale 1-3) or Pain (scale 4-6) (Pain). Take with food or milk. [facility] vitamin w/FA tablet 2018-08 00:00: 00 Yes [id number] 1{tbl} Take 1 tablet by mouth daily. [facility] docusate calcium 240 mg capsule 2018-08 00:00: 00 Yes [id number] 240mg Take 1 capsule by mouth once daily as needed for Constipati on. [facility] ferrous sulfate 325 mg (65 mg iron) tablet 2018-08 00:00: 00 Yes [id number] 325mg Take 1 tablet by mouth 2 (two) times daily. [facility] ibuprofen 600 mg tablet 2018-08 00:00: 00 Yes [id number] 600mg Take 1 tablet by mouth every 6 (six) hours as needed for Pain (scale 1-3) or Pain (scale 4-6) (Pain). Take with food or milk. [facility] vitamin w/FA tablet 2018-08 00:00: 00 Yes [id number] 1{tbl} Take 1 tablet by mouth daily. [facility] docusate calcium 240 mg capsule 2018-08 00:00: 00 Yes [id number] 240mg Take 1 capsule by mouth once daily as needed for Constipati on. [facility] ferrous sulfate 325 mg (65 mg iron) tablet 2018-08 00:00: 00 Yes [id number] 325mg Take 1 tablet by mouth 2 (two) times daily. [facility] ibuprofen 600 mg tablet 2018-08 00:00: 00 Yes [id number] 600mg Take 1 tablet by mouth every 6 (six) hours as needed for Pain (scale 1-3) or Pain (scale 4-6) (Pain). Take with food or milk. [facility] vitamin w/FA tablet 2018-08 00:00: 00 Yes [id number] 1{tbl} Take 1 tablet by mouth daily. [facility] docusate calcium 240 mg capsule 2018-08 00:00: 00 Yes [id number] 240mg Take 1 capsule by mouth once daily as needed for Constipati on. [facility] ferrous sulfate 325 mg (65 mg iron) tablet 2018-08 00:00: 00 Yes [id number] 325mg Take 1 tablet by mouth 2 (two) times daily. [facility] ibuprofen 600 mg tablet 2018-08 00:00: 00 Yes [id number] 600mg Take 1 tablet by mouth every 6 (six) hours as needed for Pain (scale 1-3) or Pain (scale 4-6) (Pain). Take with food or milk. [facility] vitamin w/FA tablet 2018-08 00:00: 00 Yes [id number] 1{tbl} Take 1 tablet by mouth daily. [facility] docusate calcium 240 mg capsule 2018-08 00:00: 00 Yes [id number] 240mg Take 1 capsule by mouth once daily as needed for Constipati on. [facility] ferrous sulfate 325 mg (65 mg iron) tablet 2018-08 00:00: 00 Yes [id number] 325mg Take 1 tablet by mouth 2 (two) times daily. [facility] ibuprofen 600 mg tablet 2018-08 00:00: 00 Yes [id number] 600mg Take 1 tablet by mouth every 6 (six) hours as needed for Pain (scale 1-3) or Pain (scale 4-6) (Pain). Take with food or milk. [facility] vitamin w/FA tablet 2018-08 00:00: 00 Yes [id number] 1{tbl} Take 1 tablet by mouth daily. [facility] docusate calcium 240 mg capsule 2018-08 00:00: 00 Yes [id number] 240mg Take 1 capsule by mouth once daily as needed for Constipati on. [facility] ferrous sulfate 325 mg (65 mg iron) tablet 2018-08 00:00: 00 Yes [id number] 325mg Take 1 tablet by mouth 2 (two) times daily. [facility] ibuprofen 600 mg tablet 2018-08 00:00: 00 Yes [id number] 600mg Take 1 tablet by mouth every 6 (six) hours as needed for Pain (scale 1-3) or Pain (scale 4-6) (Pain). Take with food or milk. [facility] vitamin w/FA tablet 2018-08 00:00: 00 Yes [id number] 1{tbl} Take 1 tablet by mouth daily. [facility] docusate calcium 240 mg capsule 2018-08 00:00: 00 Yes [id number] 240mg Take 1 capsule by mouth once daily as needed for Constipati on. [facility] ferrous sulfate 325 mg (65 mg iron) tablet 2018-08 00:00: 00 Yes [id number] 325mg Take 1 tablet by mouth 2 (two) times daily. [facility] ibuprofen 600 mg tablet 2018-08 00:00: 00 Yes [id number] 600mg Take 1 tablet by mouth every 6 (six) hours as needed for Pain (scale 1-3) or Pain (scale 4-6) (Pain). Take with food or milk. [facility] vitamin w/FA tablet 2018-08 00:00: 00 Yes [id number] 1{tbl} Take 1 tablet by mouth daily. [facility] docusate calcium 240 mg capsule 2018-08 00:00: 00 Yes [id number] 240mg Take 1 capsule by mouth once daily as needed for Constipati on. [facility] ferrous sulfate 325 mg (65 mg iron) tablet 2018-08 00:00: 00 Yes [id number] 325mg Take 1 tablet by mouth 2 (two) times daily. [facility] ibuprofen 600 mg tablet 2018-08 00:00: 00 Yes [id number] 600mg Take 1 tablet by mouth every 6 (six) hours as needed for Pain (scale 1-3) or Pain (scale 4-6) (Pain). Take with food or milk. [facility] vitamin w/FA tablet 2018-08 00:00: 00 Yes [id number] 1{tbl} Take 1 tablet by mouth daily. [facility] docusate calcium 240 mg capsule 2018-08 00:00: 00 Yes [id number] 240mg Take 1 capsule by mouth once daily as needed for Constipati on. [facility] ferrous sulfate 325 mg (65 mg iron) tablet 2018-08 00:00: 00 Yes [id number] 325mg Take 1 tablet by mouth 2 (two) times daily. [facility] ibuprofen 600 mg tablet 2018-08 00:00: 00 Yes [id number] 600mg Take 1 tablet by mouth every 6 (six) hours as needed for Pain (scale 1-3) or Pain (scale 4-6) (Pain). Take with food or milk. [facility] vitamin w/FA tablet 2018-08 00:00: 00 Yes [id number] 1{tbl} Take 1 tablet by mouth daily. [facility] docusate calcium 240 mg capsule 2018-08 00:00: 00 Yes [id number] 240mg Take 1 capsule by mouth once daily as needed for Constipati on. [facility] ferrous sulfate 325 mg (65 mg iron) tablet 2018-08 00:00: 00 Yes [id number] 325mg Take 1 tablet by mouth 2 (two) times daily. [facility] ibuprofen 600 mg tablet 2018-08 00:00: 00 Yes [id number] 600mg Take 1 tablet by mouth every 6 (six) hours as needed for Pain (scale 1-3) or Pain (scale 4-6) (Pain). Take with food or milk. [facility] vitamin w/FA tablet 2018-08 00:00: 00 Yes [id number] 1{tbl} Take 1 tablet by mouth daily. [facility] docusate calcium 240 mg capsule 2018-08 00:00: 00 Yes [id number] 240mg Take 1 capsule by mouth once daily as needed for Constipati on. [facility] ferrous sulfate 325 mg (65 mg iron) tablet 2018-08 00:00: 00 Yes [id number] 325mg Take 1 tablet by mouth 2 (two) times daily. [facility] ibuprofen 600 mg tablet 2018-08 00:00: 00 Yes [id number] 600mg Take 1 tablet by mouth every 6 (six) hours as needed for Pain (scale 1-3) or Pain (scale 4-6) (Pain). Take with food or milk. [facility] vitamin w/FA tablet 2018-08 00:00: 00 Yes [id number] 1{tbl} Take 1 tablet by mouth daily. [facility] docusate calcium 240 mg capsule 2018-08 00:00: 00 Yes [id number] 240mg Take 1 capsule by mouth once daily as needed for Constipati on. [facility] ferrous sulfate 325 mg (65 mg iron) tablet 2018-08 00:00: 00 Yes [id number] 325mg Take 1 tablet by mouth 2 (two) times daily. [facility] ibuprofen 600 mg tablet 2018-08 00:00: 00 Yes [id number] 600mg Take 1 tablet by mouth every 6 (six) hours as needed for Pain (scale 1-3) or Pain (scale 4-6) (Pain). Take with food or milk. [facility] vitamin w/FA tablet 2018-08 00:00: 00 Yes [id number] 1{tbl} Take 1 tablet by mouth daily. [facility] docusate calcium 240 mg capsule 2018-08 00:00: 00 Yes [id number] 240mg Take 1 capsule by mouth once daily as needed for Constipati on. [facility] ferrous sulfate 325 mg (65 mg iron) tablet 2018-08 00:00: 00 Yes [id number] 325mg Take 1 tablet by mouth 2 (two) times daily. [facility] ibuprofen 600 mg tablet 2018-08 00:00: 00 Yes [id number] 600mg Take 1 tablet by mouth every 6 (six) hours as needed for Pain (scale 1-3) or Pain (scale 4-6) (Pain). Take with food or milk. [facility] vitamin w/FA tablet 2018-08 00:00: 00 Yes [id number] 1{tbl} Take 1 tablet by mouth daily. [facility] docusate calcium 240 mg capsule 2018-08 00:00: 00 Yes [id number] 240mg Take 1 capsule by mouth once daily as needed for Constipati on. [facility] ferrous sulfate 325 mg (65 mg iron) tablet 2018-08 00:00: 00 Yes [id number] 325mg Take 1 tablet by mouth 2 (two) times daily. [facility] ibuprofen 600 mg tablet 2018-08 00:00: 00 Yes [id number] 600mg Take 1 tablet by mouth every 6 (six) hours as needed for Pain (scale 1-3) or Pain (scale 4-6) (Pain). Take with food or milk. [facility] vitamin w/FA tablet 2018-08 00:00: 00 Yes [id number] 1{tbl} Take 1 tablet by mouth daily. [facility] docusate calcium 240 mg capsule 2018-08 00:00: 00 Yes [id number] 240mg Take 1 capsule by mouth once daily as needed for Constipati on. [facility] ferrous sulfate 325 mg (65 mg iron) tablet 2018-08 00:00: 00 Yes [id number] 325mg Take 1 tablet by mouth 2 (two) times daily. [facility] ibuprofen 600 mg tablet 2018-08 00:00: 00 Yes [id number] 600mg Take 1 tablet by mouth every 6 (six) hours as needed for Pain (scale 1-3) or Pain (scale 4-6) (Pain). Take with food or milk. [facility] vitamin w/FA tablet 2018-08 00:00: 00 Yes [id number] 1{tbl} Take 1 tablet by mouth daily. [facility] docusate calcium 240 mg capsule 2018-08 00:00: 00 Yes [id number] 240mg Take 1 capsule by mouth once daily as needed for Constipati on. [facility] ferrous sulfate 325 mg (65 mg iron) tablet 2018-08 00:00: 00 Yes [id number] 325mg Take 1 tablet by mouth 2 (two) times daily. [facility] ibuprofen 600 mg tablet 2018-08 00:00: 00 Yes [id number] 600mg Take 1 tablet by mouth every 6 (six) hours as needed for Pain (scale 1-3) or Pain (scale 4-6) (Pain). Take with food or milk. [facility] vitamin w/FA tablet 2018-08 00:00: 00 Yes [id number] 1{tbl} Take 1 tablet by mouth daily. [facility] docusate calcium 240 mg capsule 2018-08 00:00: 00 Yes [id number] 240mg Take 1 capsule by mouth once daily as needed for Constipati on. [facility] ferrous sulfate 325 mg (65 mg iron) tablet 2018-08 00:00: 00 Yes [id number] 325mg Take 1 tablet by mouth 2 (two) times daily. [facility] ibuprofen 600 mg tablet 2018-08 00:00: 00 Yes [id number] 600mg Take 1 tablet by mouth every 6 (six) hours as needed for Pain (scale 1-3) or Pain (scale 4-6) (Pain). Take with food or milk. [facility] vitamin w/FA tablet 2018-08 00:00: 00 Yes [id number] 1{tbl} Take 1 tablet by mouth daily. [facility] docusate calcium 240 mg capsule 2018-08 00:00: 00 Yes [id number] 240mg Take 1 capsule by mouth once daily as needed for Constipati on. [facility] ferrous sulfate 325 mg (65 mg iron) tablet 2018-08 00:00: 00 Yes [id number] 325mg Take 1 tablet by mouth 2 (two) times daily. [facility] ibuprofen 600 mg tablet 2018-08 00:00: 00 Yes [id number] 600mg Take 1 tablet by mouth every 6 (six) hours as needed for Pain (scale 1-3) or Pain (scale 4-6) (Pain). Take with food or milk. [facility] vitamin w/FA tablet 2018-08 00:00: 00 Yes [id number] 1{tbl} Take 1 tablet by mouth daily. [facility] docusate calcium 240 mg capsule 2018-08 00:00: 00 Yes [id number] 240mg Take 1 capsule by mouth once daily as needed for Constipati on. [facility] ferrous sulfate 325 mg (65 mg iron) tablet 2018-08 00:00: 00 Yes [id number] 325mg Take 1 tablet by mouth 2 (two) times daily. [facility] ibuprofen 600 mg tablet 2018-08 00:00: 00 Yes [id number] 600mg Take 1 tablet by mouth every 6 (six) hours as needed for Pain (scale 1-3) or Pain (scale 4-6) (Pain). Take with food or milk. [facility] vitamin w/FA tablet 2018-08 00:00: 00 Yes [id number] 1{tbl} Take 1 tablet by mouth daily. [facility] docusate calcium 240 mg capsule 2018-08 00:00: 00 Yes [id number] 240mg Take 1 capsule by mouth once daily as needed for Constipati on. [facility] ferrous sulfate 325 mg (65 mg iron) tablet 2018-08 00:00: 00 Yes [id number] 325mg Take 1 tablet by mouth 2 (two) times daily. [facility] ibuprofen 600 mg tablet 2018-08 00:00: 00 Yes [id number] 600mg Take 1 tablet by mouth every 6 (six) hours as needed for Pain (scale 1-3) or Pain (scale 4-6) (Pain). Take with food or milk. [facility] vitamin w/FA tablet 2018-08 00:00: 00 Yes [id number] 1{tbl} Take 1 tablet by mouth daily. [facility] docusate calcium 240 mg capsule 2018-08 00:00: 00 Yes [id number] 240mg Take 1 capsule by mouth once daily as needed for Constipati on. [facility] ferrous sulfate 325 mg (65 mg iron) tablet 2018-08 00:00: 00 Yes [id number] 325mg Take 1 tablet by mouth 2 (two) times daily. [facility] ibuprofen 600 mg tablet 2018-08 00:00: 00 Yes [id number] 600mg Take 1 tablet by mouth every 6 (six) hours as needed for Pain (scale 1-3) or Pain (scale 4-6) (Pain). Take with food or milk. [facility] vitamin w/FA tablet 2018-08 00:00: 00 Yes [id number] 1{tbl} Take 1 tablet by mouth daily. [facility] docusate calcium 240 mg capsule 2018-08 00:00: 00 Yes [id number] 240mg Take 1 capsule by mouth once daily as needed for Constipati on. [facility] ferrous sulfate 325 mg (65 mg iron) tablet 2018-08 00:00: 00 Yes [id number] 325mg Take 1 tablet by mouth 2 (two) times daily. [facility] ibuprofen 600 mg tablet 2018-08 00:00: 00 Yes [id number] 600mg Take 1 tablet by mouth every 6 (six) hours as needed for Pain (scale 1-3) or Pain (scale 4-6) (Pain). Take with food or milk. [facility] vitamin w/FA tablet 2018-08 00:00: 00 Yes [id number] 1{tbl} Take 1 tablet by mouth daily. [facility] docusate calcium 240 mg capsule 2018-08 00:00: 00 Yes [id number] 240mg Take 1 capsule by mouth once daily as needed for Constipati on. [facility] ferrous sulfate 325 mg (65 mg iron) tablet 2018-08 00:00: 00 Yes [id number] 325mg Take 1 tablet by mouth 2 (two) times daily. [facility] ibuprofen 600 mg tablet 2018-08 00:00: 00 Yes [id number] 600mg Take 1 tablet by mouth every 6 (six) hours as needed for Pain (scale 1-3) or Pain (scale 4-6) (Pain). Take with food or milk. [facility] vitamin w/FA tablet 2018-08 00:00: 00 Yes [id number] 1{tbl} Take 1 tablet by mouth daily. [facility] docusate calcium 240 mg capsule 2018-08 00:00: 00 Yes [id number] 240mg Take 1 capsule by mouth once daily as needed for Constipati on. [facility] ferrous sulfate 325 mg (65 mg iron) tablet 2018-08 00:00: 00 Yes [id number] 325mg Take 1 tablet by mouth 2 (two) times daily. [facility] ibuprofen 600 mg tablet 2018-08 00:00: 00 Yes [id number] 600mg Take 1 tablet by mouth every 6 (six) hours as needed for Pain (scale 1-3) or Pain (scale 4-6) (Pain). Take with food or milk. [facility] ferrous sulfate 325 mg (65 mg iron) tablet 2018-08 00:00: 00 Yes [id number] 325mg Take 1 tablet by mouth 2 (two) times daily. [facility] ferrous sulfate 325 mg (65 mg iron) tablet 2018-08 00:00: 00 Yes [id number] 325mg Take 1 tablet by mouth 2 (two) times daily. [facility] ferrous sulfate 325 mg (65 mg iron) tablet 2018-08 00:00: 00 Yes [id number] 325mg Take 1 tablet by mouth 2 (two) times daily. [facility] ferrous sulfate 325 mg (65 mg iron) tablet 2018-08 00:00: 00 Yes [id number] 325mg Take 1 tablet by mouth 2 (two) times daily. [facility] vitamin w/FA tablet 2018-08 00:00: 00 Yes [id number] 1{tbl} Take 1 tablet by mouth daily. [facility] docusate calcium 240 mg capsule 2018-08 00:00: 00 Yes [id number] 240mg Take 1 capsule by mouth once daily as needed for Constipati on. [facility] ferrous sulfate 325 mg (65 mg iron) tablet 2018-08 00:00: 00 Yes [id number] 325mg Take 1 tablet by mouth 2 (two) times daily. [facility] ibuprofen 600 mg tablet 2018-08 00:00: 00 Yes [id number] 600mg Take 1 tablet by mouth every 6 (six) hours as needed for Pain (scale 1-3) or Pain (scale 4-6) (Pain). Take with food or milk. [facility] vitamin w/FA tablet 2018-08 00:00: 00 Yes [id number] 1{tbl} Take 1 tablet by mouth daily. [facility] docusate calcium 240 mg capsule 2018-08 00:00: 00 Yes [id number] 240mg Take 1 capsule by mouth once daily as needed for Constipati on. [facility] ferrous sulfate 325 mg (65 mg iron) tablet 2018-08 00:00: 00 Yes [id number] 325mg Take 1 tablet by mouth 2 (two) times daily. [facility] ibuprofen 600 mg tablet 2018-08 00:00: 00 Yes [id number] 600mg Take 1 tablet by mouth every 6 (six) hours as needed for Pain (scale 1-3) or Pain (scale 4-6) (Pain). Take with food or milk. [facility] vitamin w/FA tablet 2018-08 00:00: 00 Yes [id number] 1{tbl} Take 1 tablet by mouth daily. [facility] docusate calcium 240 mg capsule 2018-08 00:00: 00 Yes [id number] 240mg Take 1 capsule by mouth once daily as needed for Constipati on. [facility] ferrous sulfate 325 mg (65 mg iron) tablet 2018-08 00:00: 00 Yes [id number] 325mg Take 1 tablet by mouth 2 (two) times daily. [facility] ibuprofen 600 mg tablet 2018-08 00:00: 00 Yes [id number] 600mg Take 1 tablet by mouth every 6 (six) hours as needed for Pain (scale 1-3) or Pain (scale 4-6) (Pain). Take with food or milk. [facility] vitamin w/FA tablet 2018-08 00:00: 00 Yes [id number] 1{tbl} Take 1 tablet by mouth daily. [facility] docusate calcium 240 mg capsule 2018-08 00:00: 00 Yes [id number] 240mg Take 1 capsule by mouth once daily as needed for Constipati on. [facility] ferrous sulfate 325 mg (65 mg iron) tablet 2018-08 00:00: 00 Yes [id number] 325mg Take 1 tablet by mouth 2 (two) times daily. [facility] ibuprofen 600 mg tablet 2018-08 00:00: 00 Yes [id number] 600mg Take 1 tablet by mouth every 6 (six) hours as needed for Pain (scale 1-3) or Pain (scale 4-6) (Pain). Take with food or milk. [facility] vitamin w/FA tablet 2018-08 00:00: 00 Yes [id number] 1{tbl} Take 1 tablet by mouth daily. [facility] docusate calcium 240 mg capsule 2018-08 00:00: 00 Yes [id number] 240mg Take 1 capsule by mouth once daily as needed for Constipati on. [facility] ferrous sulfate 325 mg (65 mg iron) tablet 2018-08 00:00: 00 Yes [id number] 325mg Take 1 tablet by mouth 2 (two) times daily. [facility] ibuprofen 600 mg tablet 2018-08 00:00: 00 Yes [id number] 600mg Take 1 tablet by mouth every 6 (six) hours as needed for Pain (scale 1-3) or Pain (scale 4-6) (Pain). Take with food or milk. [facility] vitamin w/FA tablet 2018-08 00:00: 00 Yes [id number] 1{tbl} Take 1 tablet by mouth daily. [facility] docusate calcium 240 mg capsule 2018-08 00:00: 00 Yes [id number] 240mg Take 1 capsule by mouth once daily as needed for Constipati on. [facility] ferrous sulfate 325 mg (65 mg iron) tablet 2018-08 00:00: 00 Yes [id number] 325mg Take 1 tablet by mouth 2 (two) times daily. [facility] ibuprofen 600 mg tablet 2018-08 00:00: 00 Yes [id number] 600mg Take 1 tablet by mouth every 6 (six) hours as needed for Pain (scale 1-3) or Pain (scale 4-6) (Pain). Take with food or milk. [facility] vitamin w/FA tablet 2018-08 00:00: 00 Yes [id number] 1{tbl} Take 1 tablet by mouth daily. [facility] docusate calcium 240 mg capsule 2018-08 00:00: 00 Yes [id number] 240mg Take 1 capsule by mouth once daily as needed for Constipati on. [facility] ferrous sulfate 325 mg (65 mg iron) tablet 2018-08 00:00: 00 Yes [id number] 325mg Take 1 tablet by mouth 2 (two) times daily. [facility] ibuprofen 600 mg tablet 2018-08 00:00: 00 Yes [id number] 600mg Take 1 tablet by mouth every 6 (six) hours as needed for Pain (scale 1-3) or Pain (scale 4-6) (Pain). Take with food or milk. [facility] vitamin w/FA tablet 2018-08 00:00: 00 Yes [id number] 1{tbl} Take 1 tablet by mouth daily. [facility] docusate calcium 240 mg capsule 2018-08 00:00: 00 Yes [id number] 240mg Take 1 capsule by mouth once daily as needed for Constipati on. [facility] ferrous sulfate 325 mg (65 mg iron) tablet 2018-08 00:00: 00 Yes [id number] 325mg Take 1 tablet by mouth 2 (two) times daily. [facility] ibuprofen 600 mg tablet 2018-08 00:00: 00 Yes [id number] 600mg Take 1 tablet by mouth every 6 (six) hours as needed for Pain (scale 1-3) or Pain (scale 4-6) (Pain). Take with food or milk. [facility] vitamin w/FA tablet 2018-08 00:00: 00 Yes [id number] 1{tbl} Take 1 tablet by mouth daily. [facility] docusate calcium 240 mg capsule 2018-08 00:00: 00 Yes [id number] 240mg Take 1 capsule by mouth once daily as needed for Constipati on. [facility] ferrous sulfate 325 mg (65 mg iron) tablet 2018-08 00:00: 00 Yes [id number] 325mg Take 1 tablet by mouth 2 (two) times daily. [facility] ibuprofen 600 mg tablet 2018-08 00:00: 00 Yes [id number] 600mg Take 1 tablet by mouth every 6 (six) hours as needed for Pain (scale 1-3) or Pain (scale 4-6) (Pain). Take with food or milk. [facility] vitamin w/FA tablet 2018-08 00:00: 00 03-25 00:00 :00 No [id number] 1{tbl} Take 1 tablet by mouth daily. [facility] docusate calcium 240 mg capsule 2018-08 00:00: 00 03-25 00:00 :00 No [id number] 240mg Take 1 capsule by mouth once daily as needed for Constipati on. [facility] ibuprofen 600 mg tablet 2018-08 00:00: 00 03-25 00:00 :00 No [id number] 600mg Take 1 tablet by mouth every 6 (six) hours as needed for Pain (scale 1-3) or Pain (scale 4-6) (Pain). Take with food or milk. [facility] fluconazole (DIFLUCAN) 150 mg tablet 04-17 00:00: 00 04-18 04:59 :00 No [id number] 150mg Take 1 tablet by mouth once now for 1 dose. [facility] fluconazole (DIFLUCAN) 150 mg tablet 04-17 00:00: 00 04-18 04:59 :00 No [id number] 150mg Take 1 tablet by mouth once now for 1 dose. [facility] fluconazole (DIFLUCAN) 150 mg tablet 04-17 00:00: 00 04-18 04:59 :00 No [id number] 150mg Take 1 tablet by mouth once now for 1 dose. [facility] rho(D) immune globulin (RHOGAM) syringe 300 mcg 03-29 19:30: 00 03-29 19:44 :00 No [id number] 300ug [facility] rho(D) immune globulin (RHOGAM) syringe 300 mcg 03-29 19:30: 00 03-29 19:44 :00 No [id number] 300ug 300 mcg, Intramuscu lar, ONCE, 1 dose, Tanja 03/29/19 at 1430, Routine [facility] fluconazole (DIFLUCAN) 150 mg tablet 03-20 00:00: 00 03-21 04:59 :00 No [id number] 150mg Take 1 tablet by mouth once now for 1 dose. [facility] HYDROXYprog est(PF)(pre g presv) (HANS) 250 mg/mL (1 mL) injection 250 mg 03-13 15:51: 32 Yes 250mg [facility] HYDROXYprog est(PF)(pre g presv) (HANS) 250 mg/mL (1 mL) injection 250 mg 03-13 15:51: 32 Yes 250mg [facility] HYDROXYprog est(PF)(pre g presv) (HANS) 250 mg/mL (1 mL) injection 250 mg 03-13 15:51: 32 Yes 250mg 250 mg, Intramuscu lar, QWEEKLY, First dose on Tue03/13/19 at 1100, Until Discontinu ed, Routine [facility] HYDROXYprog est(PF)(pre g presv) (HANS) 250 mg/mL (1 mL) injection 250 mg 2019-0 03-13 15:51: 32 Yes 250mg [facility] HYDROXYprog est(PF)(pre g presv) (HANS) 250 mg/mL (1 mL) injection 250 mg 2019-0 03-13 15:51: 32 Yes 250mg [facility] HYDROXYprog est(PF)(pre g presv) (HANS) 250 mg/mL (1 mL) injection 250 mg 2019-0 03-13 15:51: 32 Yes 250mg [facility] HYDROXYprog est(PF)(pre g presv) (HANS) 250 mg/mL (1 mL) injection 250 mg 2018-0 03-13 15:51: 32 Yes 250mg [facility] HYDROXYprog est(PF)(pre g presv) (HANS) 250 mg/mL (1 mL) injection 250 mg 0 03-13 15:51: 32 Yes 250mg [facility] HYDROXYprog est(PF)(pre g presv) (HANS) 250 mg/mL (1 mL) injection 250 mg 2019-0 03-13 15:51: 32 Yes 250mg [facility] HYDROXYprog est(PF)(pre g presv) (HANS) 250 mg/mL (1 mL) injection 250 mg 2019-0 03-13 15:51: 32 Yes 250mg [facility] HYDROXYprog est(PF)(pre g presv) (HANS) 250 mg/mL (1 mL) injection 250 mg 2019-0 03-13 15:51: 32 Yes 250mg [facility] HYDROXYprog est(PF)(pre g presv) (HANS) 250 mg/mL (1 mL) injection 250 mg 2018-0 03-13 15:51: 32 Yes 250mg [facility] HYDROXYprog est(PF)(pre g presv) (HANS) 250 mg/mL (1 mL) injection 250 mg 2019-0 03-13 15:51: 32 Yes 250mg 250 mg, Intramuscu lar, QWEEKLY, First dose on Tue03/13/19 at 1100, Until Discontinu ed, Routine [facility] HYDROXYprog est(PF)(pre g presv) (HANS) 250 mg/mL (1 mL) injection 250 mg 03-13 15:51: 32 Yes 250mg [facility] HYDROXYprog est(PF)(pre g presv) (HANS) 250 mg/mL (1 mL) injection 250 mg 03-13 15:51: 32 Yes 250mg 250 mg, Intramuscu lar, QWEEKLY, First dose on Tue03/13/19 at 1100, Until Discontinu ed, Routine [facility] HYDROXYprog est(PF)(pre g presv) (HANS) 250 mg/mL (1 mL) injection 250 mg 03-13 15:51: 32 Yes 250mg [facility] HYDROXYprog est(PF)(pre g presv) (HANS) 250 mg/mL (1 mL) injection 250 mg 03-13 15:51: 32 Yes 250mg 250 mg, Intramuscu lar, QWEEKLY, First dose on Tue03/13/19 at 1100, Until Discontinu ed, Routine [facility] HYDROXYprog est(PF)(pre g presv) (HANS) 250 mg/mL (1 mL) injection 250 mg 03-13 15:51: 32 Yes 250mg [facility] HYDROXYprog est(PF)(pre g presv) (HANS) 250 mg/mL (1 mL) injection 250 mg 03-13 15:51: 32 Yes 250mg 250 mg, Intramuscu lar, QWEEKLY, First dose on Tue03/13/19 at 1100, Until Discontinu ed, Routine [facility] HYDROXYprog est(PF)(pre g presv) (HANS) 250 mg/mL (1 mL) injection 250 mg 03-13 15:51: 32 Yes 250mg [facility] HYDROXYprog est(PF)(pre g presv) (HANS) 250 mg/mL (1 mL) injection 250 mg 03-13 15:51: 32 Yes 250mg 250 mg, Intramuscu lar, QWEEKLY, First dose on Tue03/13/19 at 1100, Until Discontinu ed, Routine [facility] HYDROXYprog est(PF)(pre g presv) (HANS) 250 mg/mL (1 mL) injection 250 mg 03-13 15:51: 32 Yes 250mg [facility] HYDROXYprog est(PF)(pre g presv) (HANS) 250 mg/mL (1 mL) injection 250 mg 03-13 15:51: 32 Yes 250mg 250 mg, Intramuscu lar, QWEEKLY, First dose on Tue03/13/19 at 1100, Until Discontinu ed, Routine [facility] hydroxyprog esterone(PF ) (HANS AUTO-INJECT OR) 275 mg/1.1 mL injection 275 mg 01-16 14:51: 12 Yes 275mg [facility] hydroxyprog esterone(PF ) (HANS AUTO-INJECT OR) 275 mg/1.1 mL injection 275 mg 01-16 14:51: 12 Yes 275mg [facility] hydroxyprog esterone(PF ) (HANS AUTO-INJECT OR) 275 mg/1.1 mL injection 275 mg 01-16 14:51: 12 Yes 275mg [facility] hydroxyprog esterone(PF ) (HANS AUTO-INJECT OR) 275 mg/1.1 mL injection 275 mg 01-16 14:51: 12 Yes 275mg [facility] hydroxyprog esterone(PF ) (HANS AUTO-INJECT OR) 275 mg/1.1 mL injection 275 mg 01-16 14:51: 12 Yes 275mg 275 mg, Subcutaneo us, QWEEKLY, First dose on Tue01/16/19 at 1000, Until Discontinu ed, Routine [facility] hydroxyprog esterone(PF ) (HANS AUTO-INJECT OR) 275 mg/1.1 mL injection 275 mg 01-16 14:51: 12 Yes 275mg [facility] hydroxyprog esterone(PF ) (HANS AUTO-INJECT OR) 275 mg/1.1 mL injection 275 mg 2019-0 6-11 14:51: 12 Yes 275mg [facility] hydroxyprog esterone(PF ) (HANS AUTO-INJECT OR) 275 mg/1.1 mL injection 275 mg 01-16 14:51: 12 Yes 275mg [facility] hydroxyprog esterone(PF ) (HANS AUTO-INJECT OR) 275 mg/1.1 mL injection 275 mg 01-16 14:51: 12 Yes 275mg [facility] hydroxyprog esterone(PF ) (HANS AUTO-INJECT OR) 275 mg/1.1 mL injection 275 mg 01-16 14:51: 12 Yes 275mg [facility] hydroxyprog esterone(PF ) (HANS AUTO-INJECT OR) 275 mg/1.1 mL injection 275 mg 01-16 14:51: 12 Yes 275mg [facility] hydroxyprog esterone(PF ) (HANS AUTO-INJECT OR) 275 mg/1.1 mL injection 275 mg 01-16 14:51: 12 Yes 275mg [facility] hydroxyprog esterone(PF ) (HANS AUTO-INJECT OR) 275 mg/1.1 mL injection 275 mg 01-16 14:51: 12 Yes 275mg [facility] hydroxyprog esterone(PF ) (HANS AUTO-INJECT OR) 275 mg/1.1 mL injection 275 mg 01-16 14:51: 12 Yes 275mg [facility] hydroxyprog esterone(PF ) (HANS AUTO-INJECT OR) 275 mg/1.1 mL injection 275 mg 01-16 14:51: 12 Yes 275mg [facility] hydroxyprog esterone(PF ) (HANS AUTO-INJECT OR) 275 mg/1.1 mL injection 275 mg 0 01-16 14:51: 12 Yes 275mg [facility] hydroxyprog esterone(PF ) (HANS AUTO-INJECT OR) 275 mg/1.1 mL injection 275 mg 01-16 14:51: 12 Yes 275mg [facility] hydroxyprog esterone(PF ) (HANS AUTO-INJECT OR) 275 mg/1.1 mL injection 275 mg 01-16 14:51: 12 Yes 275mg [facility] hydroxyprog esterone(PF ) (HANS AUTO-INJECT OR) 275 mg/1.1 mL injection 275 mg 01-16 14:51: 12 Yes 275mg [facility] hydroxyprog esterone(PF ) (HANS AUTO-INJECT OR) 275 mg/1.1 mL injection 275 mg 01-16 14:51: 12 Yes 275mg [facility] PNV 67-iron ps-folate no.1-dha (VITAFOL ULTRA) 29 mg iron- 1 mg-200 mg Cap 10-20 00:00: 00 Yes [id number] 1{each} Take 1 Each by mouth daily. [facility] PNV 67-iron ps-folate no.1-dha (VITAFOL ULTRA) 29 mg iron- 1 mg-200 mg Cap 10-20 00:00: 00 Yes [id number] 1{each} Take 1 Each by mouth daily. [facility] PNV 67-iron ps-folate no.1-dha (VITAFOL ULTRA) 29 mg iron- 1 mg-200 mg Cap 10-20 00:00: 00 Yes [id number] 1{each} Take 1 Each by mouth daily. [facility] PNV 67-iron ps-folate no.1-dha (VITAFOL ULTRA) 29 mg iron- 1 mg-200 mg Cap 10-20 00:00: 00 Yes [id number] 1{each} Take 1 Each by mouth daily. [facility] PNV 67-iron ps-folate no.1-dha (VITAFOL ULTRA) 29 mg iron- 1 mg-200 mg Cap 10-20 00:00: 00 Yes [id number] 1{each} Take 1 Each by mouth daily. [facility] PNV 67-iron ps-folate no.1-dha (VITAFOL ULTRA) 29 mg iron- 1 mg-200 mg Cap 10-20 00:00: 00 Yes [id number] 1{each} Take 1 Each by mouth daily. [facility] PNV 67-iron ps-folate no.1-dha (VITAFOL ULTRA) 29 mg iron- 1 mg-200 mg Cap 15 00:00: 00 Yes [id number] 1{each} Take 1 Each by mouth daily. [facility] PNV 67-iron ps-folate no.1-dha (VITAFOL ULTRA) 29 mg iron- 1 mg-200 mg Cap 10-20 00:00: 00 Yes [id number] 1{each} Take 1 Each by mouth daily. [facility] PNV 67-iron ps-folate no.1-dha (VITAFOL ULTRA) 29 mg iron- 1 mg-200 mg Cap 10-20 00:00: 00 Yes [id number] 1{each} Take 1 Each by mouth daily. [facility] PNV 67-iron ps-folate no.1-dha (VITAFOL ULTRA) 29 mg iron- 1 mg-200 mg Cap 10-20 00:00: 00 Yes [id number] 1{each} Take 1 Each by mouth daily. [facility] PNV 67-iron ps-folate no.1-dha (VITAFOL ULTRA) 29 mg iron- 1 mg-200 mg Cap 10-20 00:00: 00 Yes [id number] 1{each} Take 1 Each by mouth daily. [facility] PNV 67-iron ps-folate no.1-dha (VITAFOL ULTRA) 29 mg iron- 1 mg-200 mg Cap 10-20 00:00: 00 Yes [id number] 1{each} Take 1 Each by mouth daily. [facility] PNV 67-iron ps-folate no.1-dha (VITAFOL ULTRA) 29 mg iron- 1 mg-200 mg Cap 10-20 00:00: 00 Yes [id number] 1{each} Take 1 Each by mouth daily. [facility] PNV 67-iron ps-folate no.1-dha (VITAFOL ULTRA) 29 mg iron- 1 mg-200 mg Cap 15 00:00: 00 Yes [id number] 1{each} Take 1 Each by mouth daily. [facility] PNV 67-iron ps-folate no.1-dha (VITAFOL ULTRA) 29 mg iron- 1 mg-200 mg Cap 10-20 00:00: 00 Yes [id number] 1{each} Take 1 Each by mouth daily. [facility] PNV 67-iron ps-folate no.1-dha (VITAFOL ULTRA) 29 mg iron- 1 mg-200 mg Cap 10-20 00:00: 00 Yes [id number] 1{each} Take 1 Each by mouth daily. [facility] PNV 67-iron ps-folate no.1-dha (VITAFOL ULTRA) 29 mg iron- 1 mg-200 mg Cap 10-20 00:00: 00 Yes [id number] 1{each} Take 1 Each by mouth daily. [facility] PNV 67-iron ps-folate no.1-dha (VITAFOL ULTRA) 29 mg iron- 1 mg-200 mg Cap 10-20 00:00: 00 Yes [id number] 1{each} Take 1 Each by mouth daily. [facility] PNV 67-iron ps-folate no.1-dha (VITAFOL ULTRA) 29 mg iron- 1 mg-200 mg Cap 10-20 00:00: 00 Yes [id number] 1{each} Take 1 Each by mouth daily. [facility] PNV 67-iron ps-folate no.1-dha (VITAFOL ULTRA) 29 mg iron- 1 mg-200 mg Cap 10-20 00:00: 00 Yes [id number] 1{each} Take 1 Each by mouth daily. [facility] PNV 67-iron ps-folate no.1-dha (VITAFOL ULTRA) 29 mg iron- 1 mg-200 mg Cap 10-20 00:00: 00 Yes [id number] 1{each} Take 1 Each by mouth daily. [facility] hydroxyprog est,PF,,pre g presv, 250 mg/mL (1 mL) injection 10-20 00:00: 00 03-18 04:59 :00 No [id number] 250mg 1 mL by Intramuscu lar route weekly for 22 doses. [facility] hydroxyprog est,PF,,pre g presv, 250 mg/mL (1 mL) injection 15 00:00: 03-18 04:59 :00 No [id number] 250mg 1 mL by Intramuscu lar route weekly for 22 doses. [facility] hydroxyprog est,PF,,pre g presv, 250 mg/mL (1 mL) injection 315 00:00: 00 03-18 04:59 :00 No [id number] 250mg 1 mL by Intramuscu lar route weekly for 22 doses. [facility] hydroxyprog est,PF,,pre g presv, 250 mg/mL (1 mL) injection 10-20 00:00: 00 03-18 04:59 :00 No [id number] 250mg 1 mL by Intramuscu lar route weekly for 22 doses. [facility] hydroxyprog est,PF,,pre g presv, 250 mg/mL (1 mL) injection 10-20 00:00: 03-18 04:59 :00 No [id number] 250mg 1 mL by Intramuscu lar route weekly for 22 doses. [facility] ascorbic acid, vitamin C, 500 mg tablet 2017-08 00:00: 00 Yes 500mg Take 1 tablet by mouth 3 (three) times daily. [facility] ascorbic acid, vitamin C, 500 mg tablet 2017-08 00:00: 00 Yes 500mg Take 1 tablet by mouth 3 (three) times daily. [facility] ascorbic acid, vitamin C, 500 mg tablet 2017-08 00:00: 00 Yes 500mg Take 1 tablet by mouth 3 (three) times daily. [facility] ascorbic acid, vitamin C, 500 mg tablet 2017-08 00:00: 00 Yes 500mg Take 1 tablet by mouth 3 (three) times daily. [facility] ascorbic acid, vitamin C, 500 mg tablet 2017-08 00:00: 00 Yes 500mg Take 1 tablet by mouth 3 (three) times daily. [facility] ascorbic acid, vitamin C, 500 mg tablet 2017-08 00:00: 00 Yes 500mg Take 1 tablet by mouth 3 (three) times daily. [facility] ascorbic acid, vitamin C, 500 mg tablet 2017-08 00:00: 00 Yes 500mg Take 1 tablet by mouth 3 (three) times daily. [facility] ascorbic acid, vitamin C, 500 mg tablet 2017-08 00:00: 00 Yes 500mg Take 1 tablet by mouth 3 (three) times daily. [facility] ascorbic acid, vitamin C, 500 mg tablet 2017-08 00:00: 00 Yes 500mg Take 1 tablet by mouth 3 (three) times daily. [facility] ascorbic acid, vitamin C, 500 mg tablet 2017-08 00:00: 00 Yes 500mg Take 1 tablet by mouth 3 (three) times daily. [facility] ascorbic acid, vitamin C, 500 mg tablet 2017-08 00:00: 00 Yes 500mg Take 1 tablet by mouth 3 (three) times daily. [facility] ascorbic acid, vitamin C, 500 mg tablet 2017-08 00:00: 00 Yes 500mg Take 1 tablet by mouth 3 (three) times daily. [facility] ascorbic acid, vitamin C, 500 mg tablet 2017-08 00:00: 00 Yes 500mg Take 1 tablet by mouth 3 (three) times daily. [facility] ascorbic acid, vitamin C, 500 mg tablet 2017-08 00:00: 00 Yes 500mg Take 1 tablet by mouth 3 (three) times daily. [facility] ascorbic acid, vitamin C, 500 mg tablet 2017-08 00:00: 00 Yes 500mg Take 1 tablet by mouth 3 (three) times daily. [facility] ascorbic acid, vitamin C, 500 mg tablet 2017-08 00:00: 00 Yes 500mg Take 1 tablet by mouth 3 (three) times daily. [facility] ascorbic acid, vitamin C, 500 mg tablet 2017-08 00:00: 00 Yes 500mg Take 1 tablet by mouth 3 (three) times daily. [facility] ascorbic acid, vitamin C, 500 mg tablet 2017-08 00:00: 00 Yes 500mg Take 1 tablet by mouth 3 (three) times daily. [facility] ascorbic acid, vitamin C, 500 mg tablet 2017-08 00:00: 00 Yes 500mg Take 1 tablet by mouth 3 (three) times daily. [facility] ascorbic acid, vitamin C, 500 mg tablet 2017-08 00:00: 00 Yes 500mg Take 1 tablet by mouth 3 (three) times daily. [facility] ascorbic acid, vitamin C, 500 mg tablet 2017-08 00:00: 00 Yes 500mg Take 1 tablet by mouth 3 (three) times daily. [facility] docusate calcium 240 mg capsule 2017-08 00:00: 00 Yes 240mg Take 1 capsule by mouth once daily as needed for Constipati on. [facility] ibuprofen 600 mg tablet 2017-08 00:00: 00 Yes 600mg Take 1 tablet by mouth every 6 (six) hours as needed for Pain (scale 1-3) or Pain (scale 4-6) (Pain). Take with food or milk. [facility] ferrous sulfate 325 mg (65 mg iron) tablet 2017-08 00:00: 00 Yes 325mg Take 1 tablet by mouth 2 (two) times daily. [facility] docusate calcium 240 mg capsule 2017-08 00:00: 00 Yes 240mg Take 1 capsule by mouth once daily as needed for Constipati on. [facility] ibuprofen 600 mg tablet 2017-08 00:00: 00 Yes 600mg Take 1 tablet by mouth every 6 (six) hours as needed for Pain (scale 1-3) or Pain (scale 4-6) (Pain). Take with food or milk. [facility] ferrous sulfate 325 mg (65 mg iron) tablet 2017-08 00:00: 00 Yes 325mg Take 1 tablet by mouth 2 (two) times daily. [facility] docusate calcium 240 mg capsule 2017-08 00:00: 00 Yes 240mg Take 1 capsule by mouth once daily as needed for Constipati on. [facility] ibuprofen 600 mg tablet 2017-08 00:00: 00 Yes 600mg Take 1 tablet by mouth every 6 (six) hours as needed for Pain (scale 1-3) or Pain (scale 4-6) (Pain). Take with food or milk. [facility] ferrous sulfate 325 mg (65 mg iron) tablet 2017-08 00:00: 00 Yes 325mg Take 1 tablet by mouth 2 (two) times daily. [facility] docusate calcium 240 mg capsule 2017-08 00:00: 00 Yes 240mg Take 1 capsule by mouth once daily as needed for Constipati on. [facility] ibuprofen 600 mg tablet 2017-08 00:00: 00 Yes 600mg Take 1 tablet by mouth every 6 (six) hours as needed for Pain (scale 1-3) or Pain (scale 4-6) (Pain). Take with food or milk. [facility] ferrous sulfate 325 mg (65 mg iron) tablet 2017-08 00:00: 00 Yes 325mg Take 1 tablet by mouth 2 (two) times daily. [facility] docusate calcium 240 mg capsule 2017-08 00:00: 00 Yes 240mg Take 1 capsule by mouth once daily as needed for Constipati on. [facility] ibuprofen 600 mg tablet 2017-08 00:00: 00 Yes 600mg Take 1 tablet by mouth every 6 (six) hours as needed for Pain (scale 1-3) or Pain (scale 4-6) (Pain). Take with food or milk. [facility] ferrous sulfate 325 mg (65 mg iron) tablet 2017-08 00:00: 00 Yes 325mg Take 1 tablet by mouth 2 (two) times daily. [facility] docusate calcium 240 mg capsule 2017-08 00:00: 00 Yes 240mg Take 1 capsule by mouth once daily as needed for Constipati on. [facility] ibuprofen 600 mg tablet 2017-08 00:00: 00 Yes 600mg Take 1 tablet by mouth every 6 (six) hours as needed for Pain (scale 1-3) or Pain (scale 4-6) (Pain). Take with food or milk. [facility] ferrous sulfate 325 mg (65 mg iron) tablet 2017-08 00:00: 00 Yes 325mg Take 1 tablet by mouth 2 (two) times daily. [facility] docusate calcium 240 mg capsule 2017-08 00:00: 00 Yes 240mg Take 1 capsule by mouth once daily as needed for Constipati on. [facility] ibuprofen 600 mg tablet 2017-08 00:00: 00 Yes 600mg Take 1 tablet by mouth every 6 (six) hours as needed for Pain (scale 1-3) or Pain (scale 4-6) (Pain). Take with food or milk. [facility] ferrous sulfate 325 mg (65 mg iron) tablet 2017-08 00:00: 00 Yes 325mg Take 1 tablet by mouth 2 (two) times daily. [facility] docusate calcium 240 mg capsule 2017-08 00:00: 00 Yes 240mg Take 1 capsule by mouth once daily as needed for Constipati on. [facility] ibuprofen 600 mg tablet 2017-08 00:00: 00 Yes 600mg Take 1 tablet by mouth every 6 (six) hours as needed for Pain (scale 1-3) or Pain (scale 4-6) (Pain). Take with food or milk. [facility] ferrous sulfate 325 mg (65 mg iron) tablet 2017-08 00:00: 00 Yes 325mg Take 1 tablet by mouth 2 (two) times daily. [facility] docusate calcium 240 mg capsule 2017-08 00:00: 00 Yes 240mg Take 1 capsule by mouth once daily as needed for Constipati on. [facility] ibuprofen 600 mg tablet 2017-08 00:00: 00 Yes 600mg Take 1 tablet by mouth every 6 (six) hours as needed for Pain (scale 1-3) or Pain (scale 4-6) (Pain). Take with food or milk. [facility] ferrous sulfate 325 mg (65 mg iron) tablet 2017-08 00:00: 00 Yes 325mg Take 1 tablet by mouth 2 (two) times daily. [facility] docusate calcium 240 mg capsule 2017-08 00:00: 00 Yes 240mg Take 1 capsule by mouth once daily as needed for Constipati on. [facility] ibuprofen 600 mg tablet 2017-08 00:00: 00 Yes 600mg Take 1 tablet by mouth every 6 (six) hours as needed for Pain (scale 1-3) or Pain (scale 4-6) (Pain). Take with food or milk. [facility] ferrous sulfate 325 mg (65 mg iron) tablet 2017-08 00:00: 00 Yes 325mg Take 1 tablet by mouth 2 (two) times daily. [facility] docusate calcium 240 mg capsule 2017-08 00:00: 00 Yes 240mg Take 1 capsule by mouth once daily as needed for Constipati on. [facility] ibuprofen 600 mg tablet 2017-08 00:00: 00 Yes 600mg Take 1 tablet by mouth every 6 (six) hours as needed for Pain (scale 1-3) or Pain (scale 4-6) (Pain). Take with food or milk. [facility] ferrous sulfate 325 mg (65 mg iron) tablet 2017-08 00:00: 00 Yes 325mg Take 1 tablet by mouth 2 (two) times daily. [facility] docusate calcium 240 mg capsule 2017-08 00:00: 00 Yes 240mg Take 1 capsule by mouth once daily as needed for Constipati on. [facility] ibuprofen 600 mg tablet 2017-08 00:00: 00 Yes 600mg Take 1 tablet by mouth every 6 (six) hours as needed for Pain (scale 1-3) or Pain (scale 4-6) (Pain). Take with food or milk. [facility] ferrous sulfate 325 mg (65 mg iron) tablet 2017-08 00:00: 00 Yes 325mg Take 1 tablet by mouth 2 (two) times daily. [facility] docusate calcium 240 mg capsule 2017-08 00:00: 00 Yes 240mg Take 1 capsule by mouth once daily as needed for Constipati on. [facility] ibuprofen 600 mg tablet 2017-08 00:00: 00 Yes 600mg Take 1 tablet by mouth every 6 (six) hours as needed for Pain (scale 1-3) or Pain (scale 4-6) (Pain). Take with food or milk. [facility] ferrous sulfate 325 mg (65 mg iron) tablet 2017-08 00:00: 00 Yes 325mg Take 1 tablet by mouth 2 (two) times daily. [facility] docusate calcium 240 mg capsule 2017-08 00:00: 00 Yes 240mg Take 1 capsule by mouth once daily as needed for Constipati on. [facility] ibuprofen 600 mg tablet 2017-08 00:00: 00 Yes 600mg Take 1 tablet by mouth every 6 (six) hours as needed for Pain (scale 1-3) or Pain (scale 4-6) (Pain). Take with food or milk. [facility] ferrous sulfate 325 mg (65 mg iron) tablet 2017-08 00:00: 00 Yes 325mg Take 1 tablet by mouth 2 (two) times daily. [facility] docusate calcium 240 mg capsule 2017-08 00:00: 00 Yes 240mg Take 1 capsule by mouth once daily as needed for Constipati on. [facility] ibuprofen 600 mg tablet 2017-08 00:00: 00 Yes 600mg Take 1 tablet by mouth every 6 (six) hours as needed for Pain (scale 1-3) or Pain (scale 4-6) (Pain). Take with food or milk. [facility] ferrous sulfate 325 mg (65 mg iron) tablet 2017-08 00:00: 00 Yes 325mg Take 1 tablet by mouth 2 (two) times daily. [facility] docusate calcium 240 mg capsule 2017-08 00:00: 00 Yes 240mg Take 1 capsule by mouth once daily as needed for Constipati on. [facility] ibuprofen 600 mg tablet 2017-08 00:00: 00 Yes 600mg Take 1 tablet by mouth every 6 (six) hours as needed for Pain (scale 1-3) or Pain (scale 4-6) (Pain). Take with food or milk. [facility] ferrous sulfate 325 mg (65 mg iron) tablet 2017-08 00:00: 00 Yes 325mg Take 1 tablet by mouth 2 (two) times daily. [facility] docusate calcium 240 mg capsule 2017-08 00:00: 00 Yes 240mg Take 1 capsule by mouth once daily as needed for Constipati on. [facility] ibuprofen 600 mg tablet 2017-08 00:00: 00 Yes 600mg Take 1 tablet by mouth every 6 (six) hours as needed for Pain (scale 1-3) or Pain (scale 4-6) (Pain). Take with food or milk. [facility] ferrous sulfate 325 mg (65 mg iron) tablet 2017-08 00:00: 00 Yes 325mg Take 1 tablet by mouth 2 (two) times daily. [facility] docusate calcium 240 mg capsule 2017-08 00:00: 00 Yes 240mg Take 1 capsule by mouth once daily as needed for Constipati on. [facility] ibuprofen 600 mg tablet 2017-08 00:00: 00 Yes 600mg Take 1 tablet by mouth every 6 (six) hours as needed for Pain (scale 1-3) or Pain (scale 4-6) (Pain). Take with food or milk. [facility] ferrous sulfate 325 mg (65 mg iron) tablet 2017-08 00:00: 00 Yes 325mg Take 1 tablet by mouth 2 (two) times daily. [facility] docusate calcium 240 mg capsule 2017-08 00:00: 00 Yes 240mg Take 1 capsule by mouth once daily as needed for Constipati on. [facility] ibuprofen 600 mg tablet 2017-08 00:00: 00 Yes 600mg Take 1 tablet by mouth every 6 (six) hours as needed for Pain (scale 1-3) or Pain (scale 4-6) (Pain). Take with food or milk. [facility] ferrous sulfate 325 mg (65 mg iron) tablet 2017-08 00:00: 00 Yes 325mg Take 1 tablet by mouth 2 (two) times daily. [facility] docusate calcium 240 mg capsule 2017-08 00:00: 00 Yes 240mg Take 1 capsule by mouth once daily as needed for Constipati on. [facility] ibuprofen 600 mg tablet 2017-08 00:00: 00 Yes 600mg Take 1 tablet by mouth every 6 (six) hours as needed for Pain (scale 1-3) or Pain (scale 4-6) (Pain). Take with food or milk. [facility] ferrous sulfate 325 mg (65 mg iron) tablet 2017-08 00:00: 00 Yes 325mg Take 1 tablet by mouth 2 (two) times daily. [facility] docusate calcium 240 mg capsule 2017-08 00:00: 00 Yes 240mg Take 1 capsule by mouth once daily as needed for Constipati on. [facility] ibuprofen 600 mg tablet 2017-08 00:00: 00 Yes 600mg Take 1 tablet by mouth every 6 (six) hours as needed for Pain (scale 1-3) or Pain (scale 4-6) (Pain). Take with food or milk. [facility] ferrous sulfate 325 mg (65 mg iron) tablet 2017-08 00:00: 00 Yes 325mg Take 1 tablet by mouth 2 (two) times daily. [facility] PNV 67-iron ps-folate no.1-dha (VITAFOL ULTRA) 29 mg iron- 1 mg-200 mg Cap 11-22 00:00: 00 Yes [id number] 1{each} Take 1 Each by mouth daily. [facility] PNV 67-iron ps-folate no.1-dha (VITAFOL ULTRA) 29 mg iron- 1 mg-200 mg Cap 11-22 00:00: 00 Yes [id number] 1{each} Take 1 Each by mouth daily. [facility] PNV 67-iron ps-folate no.1-dha (VITAFOL ULTRA) 29 mg iron- 1 mg-200 mg Cap 11-22 00:00: 00 Yes [id number] 1{each} Take 1 Each by mouth daily. [facility] PNV 67-iron ps-folate no.1-dha (VITAFOL ULTRA) 29 mg iron- 1 mg-200 mg Cap 11-22 00:00: 00 Yes [id number] 1{each} Take 1 Each by mouth daily. [facility] PNV 67-iron ps-folate no.1-dha (VITAFOL ULTRA) 29 mg iron- 1 mg-200 mg Cap 11-22 00:00: 00 Yes [id number] 1{each} Take 1 Each by mouth daily. [facility] PNV 67-iron ps-folate no.1-dha (VITAFOL ULTRA) 29 mg iron- 1 mg-200 mg Cap 11-22 00:00: 00 Yes [id number] 1{each} Take 1 Each by mouth daily. [facility] PNV 67-iron ps-folate no.1-dha (VITAFOL ULTRA) 29 mg iron- 1 mg-200 mg Cap 11-22 00:00: 00 Yes [id number] 1{each} Take 1 Each by mouth daily. [facility] PNV 67-iron ps-folate no.1-dha (VITAFOL ULTRA) 29 mg iron- 1 mg-200 mg Cap 11-22 00:00: 00 Yes [id number] 1{each} Take 1 Each by mouth daily. [facility] PNV 67-iron ps-folate no.1-dha (VITAFOL ULTRA) 29 mg iron- 1 mg-200 mg Cap 11-22 00:00: 00 Yes [id number] 1{each} Take 1 Each by mouth daily. [facility] PNV 67-iron ps-folate no.1-dha (VITAFOL ULTRA) 29 mg iron- 1 mg-200 mg Cap 11-22 00:00: 00 Yes [id number] 1{each} Take 1 Each by mouth daily. [facility] PNV 67-iron ps-folate no.1-dha (VITAFOL ULTRA) 29 mg iron- 1 mg-200 mg Cap 11-22 00:00: 00 Yes [id number] 1{each} Take 1 Each by mouth daily. [facility] PNV 67-iron ps-folate no.1-dha (VITAFOL ULTRA) 29 mg iron- 1 mg-200 mg Cap 11-22 00:00: 00 Yes [id number] 1{each} Take 1 Each by mouth daily. [facility] PNV 67-iron ps-folate no.1-dha (VITAFOL ULTRA) 29 mg iron- 1 mg-200 mg Cap 11-22 00:00: 00 Yes [id number] 1{each} Take 1 Each by mouth daily. [facility] PNV 67-iron ps-folate no.1-dha (VITAFOL ULTRA) 29 mg iron- 1 mg-200 mg Cap 11-22 00:00: 00 Yes [id number] 1{each} Take 1 Each by mouth daily. [facility] PNV 67-iron ps-folate no.1-dha (VITAFOL ULTRA) 29 mg iron- 1 mg-200 mg Cap 11-22 00:00: 00 Yes [id number] 1{each} Take 1 Each by mouth daily. [facility] PNV 67-iron ps-folate no.1-dha (VITAFOL ULTRA) 29 mg iron- 1 mg-200 mg Cap 11-22 00:00: 00 Yes [id number] 1{each} Take 1 Each by mouth daily. [facility] PNV 67-iron ps-folate no.1-dha (VITAFOL ULTRA) 29 mg iron- 1 mg-200 mg Cap 11-22 00:00: 00 Yes [id number] 1{each} Take 1 Each by mouth daily. [facility] PNV 67-iron ps-folate no.1-dha (VITAFOL ULTRA) 29 mg iron- 1 mg-200 mg Cap 11-22 00:00: 00 Yes [id number] 1{each} Take 1 Each by mouth daily. [facility] PNV 67-iron ps-folate no.1-dha (VITAFOL ULTRA) 29 mg iron- 1 mg-200 mg Cap 11-22 00:00: 00 Yes [id number] 1{each} Take 1 Each by mouth daily. [facility] PNV 67-iron ps-folate no.1-dha (VITAFOL ULTRA) 29 mg iron- 1 mg-200 mg Cap 11-22 00:00: 00 Yes [id number] 1{each} Take 1 Each by mouth daily. [facility] PNV 67-iron ps-folate no.1-dha (VITAFOL ULTRA) 29 mg iron- 1 mg-200 mg Cap 2018-0 11-22 00:00: 00 Yes [id number] 1{each} Take 1 Each by mouth daily. [facility] Immunizations Ordered Immunization Name Filled Immunization Name Date Status Comments Source HPV9 2021-04-09 00:00:00 Completed [facility] HPV9 2021-04-09 00:00:00 Completed [facility] 2021-04-09 00:00:00 Completed [facility] 2021-04-09 00:00:00 Completed [facility] 2021-04-09 00:00:00 Completed [facility] 2021-04-09 00:00:00 Completed [facility] HPV9 2021-04-09 00:00:00 Completed [facility] HPV9 2021-04-09 00:00:00 Completed [facility] HPV9 2021-04-09 00:00:00 Completed [facility] HPV9 2021-04-09 00:00:00 Completed [facility] Rho (d) Immune Globulin 2021-01-28 00:00:00 Completed [facility] TDAP 2021-01-28 00:00:00 Completed [facility] Rho (d) Immune Globulin 2021-01-28 00:00:00 Completed [facility] TDAP 2021-01-28 00:00:00 Completed [facility] Rho (d) Immune Globulin 2021-01-28 00:00:00 Completed [facility] TDAP 2021-01-28 00:00:00 Completed [facility] Rho (d) Immune Globulin 2021-01-28 00:00:00 Completed [facility] TDAP 2021-01-28 00:00:00 Completed [facility] Rho (d) Immune Globulin 2021-01-28 00:00:00 Completed [facility] TDAP 2021-01-28 00:00:00 Completed [facility] Rho (d) Immune Globulin 2021-01-28 00:00:00 Completed [facility] TDAP 2021-01-28 00:00:00 Completed [facility] Rho (d) Immune Globulin 2021-01-28 00:00:00 Completed [facility] TDAP 2021-01-28 00:00:00 Completed [facility] Rho (d) Immune Globulin 2021-01-28 00:00:00 Completed [facility] TDAP 2021-01-28 00:00:00 Completed [facility] Rho (d) Immune Globulin 2021-01-28 00:00:00 Completed [facility] TDAP 2021-01-28 00:00:00 Completed [facility] Rho (d) Immune Globulin 2021-01-28 00:00:00 Completed [facility] TDAP 2021-01-28 00:00:00 Completed [facility] Rho (d) Immune Globulin 2021-01-28 00:00:00 Completed [facility] TDAP 2021-01-28 00:00:00 Completed [facility] Rho (d) Immune Globulin 2021-01-28 00:00:00 Completed [facility] TDAP 2021-01-28 00:00:00 Completed [facility] Rho (d) Immune Globulin 2021-01-28 00:00:00 Completed [facility] TDAP 2021-01-28 00:00:00 Completed [facility] Rho (d) Immune Globulin 2021-01-28 00:00:00 Completed [facility] TDAP 2021-01-28 00:00:00 Completed [facility] Rho (d) Immune Globulin 2021-01-28 00:00:00 Completed [facility] TDAP 2021-01-28 00:00:00 Completed [facility] Rho (d) Immune Globulin 2021-01-28 00:00:00 Completed [facility] TDAP 2021-01-28 00:00:00 Completed [facility] Rho (d) Immune Globulin 2021-01-28 00:00:00 Completed [facility] TDAP 2021-01-28 00:00:00 Completed [facility] Rho (d) Immune Globulin 2021-01-28 00:00:00 Completed [facility] TDAP 2021-01-28 00:00:00 Completed [facility] Rho (d) Immune Globulin 2021-01-28 00:00:00 Completed [facility] TDAP 2021-01-28 00:00:00 Completed [facility] Rho (d) Immune Globulin 2021-01-28 00:00:00 Completed [facility] TDAP 2021-01-28 00:00:00 Completed [facility] Rho (d) Immune Globulin 2021-01-28 00:00:00 Completed [facility] TDAP 2021-01-28 00:00:00 Completed [facility] Influenza Virus Vaccine Quad .5 mL IM 6+ MO 2020-06-04 00:00:00 Completed [facility] Influenza Virus Vaccine Quad .5 mL IM 6+ MO 2020-06-04 00:00:00 Completed [facility] Influenza Virus Vaccine Quad .5 mL IM 6+ MO 2020-06-04 00:00:00 Completed [facility] Influenza Virus Vaccine Quad .5 mL IM 6+ MO 2020-06-04 00:00:00 Completed [facility] Influenza Virus Vaccine Quad .5 mL IM 6+ MO 2020-06-04 00:00:00 Completed [facility] Influenza Virus Vaccine Quad .5 mL IM 6+ MO 2020-06-04 00:00:00 Completed [facility] Influenza Virus Vaccine Quad .5 mL IM 6+ MO 2020-06-04 00:00:00 Completed [facility] Influenza Virus Vaccine Quad .5 mL IM 6+ MO 2020-06-04 00:00:00 Completed [facility] Influenza Virus Vaccine Quad .5 mL IM 6+ MO 2020-06-04 00:00:00 Completed [facility] Influenza Virus Vaccine Quad .5 mL IM 6+ MO 2020-06-04 00:00:00 Completed [facility] Influenza Virus Vaccine Quad .5 mL IM 6+ MO 2020-06-04 00:00:00 Completed [facility] Influenza Virus Vaccine Quad .5 mL IM 6+ MO 2020-06-04 00:00:00 Completed [facility] Influenza Virus Vaccine Quad .5 mL IM 6+ MO 2020-06-04 00:00:00 Completed [facility] Influenza Virus Vaccine Quad .5 mL IM 6+ MO 2020-06-04 00:00:00 Completed [facility] Influenza Virus Vaccine Quad .5 mL IM 6+ MO 2020-06-04 00:00:00 Completed [facility] Influenza Virus Vaccine Quad .5 mL IM 6+ MO 2020-06-04 00:00:00 Completed [facility] Influenza Virus Vaccine Quad .5 mL IM 6+ MO 2020-06-04 00:00:00 Completed [facility] Influenza Virus Vaccine Quad .5 mL IM 6+ MO 2020-06-04 00:00:00 Completed [facility] Influenza Virus Vaccine Quad .5 mL IM 6+ MO 2020-06-04 00:00:00 Completed [facility] Influenza Virus Vaccine Quad .5 mL IM 6+ MO 2020-06-04 00:00:00 Completed [facility] Influenza Virus Vaccine Quad .5 mL IM 6+ MO 2020-06-04 00:00:00 Completed [facility] Influenza Virus Vaccine Quad .5 mL IM 6+ MO 2020-06-04 00:00:00 Completed [facility] Influenza Virus Vaccine Quad .5 mL IM 6+ MO 2020-06-04 00:00:00 Completed [facility] Influenza Virus Vaccine Quad .5 mL IM 6+ MO 2020-06-04 00:00:00 Completed [facility] Influenza Virus Vaccine Quad .5 mL IM 6+ MO 2020-06-04 00:00:00 Completed [facility] Influenza Virus Vaccine Quad .5 mL IM 6+ MO 2020-06-04 00:00:00 Completed [facility] Influenza Virus Vaccine Quad .5 mL IM 6+ MO 2020-06-04 00:00:00 Completed [facility] Influenza Virus Vaccine Quad .5 mL IM 6+ MO 2020-06-04 00:00:00 Completed [facility] Influenza Virus Vaccine Quad .5 mL IM 6+ MO 2020-06-04 00:00:00 Completed [facility] Influenza Virus Vaccine Quad .5 mL IM 6+ MO 2020-06-04 00:00:00 Completed [facility] Influenza Virus Vaccine Quad .5 mL IM 6+ MO 2020-06-04 00:00:00 Completed [facility] Influenza Virus Vaccine Quad .5 mL IM 6+ MO 2020-06-04 00:00:00 Completed [facility] Influenza Virus Vaccine Quad .5 mL IM 6+ MO 2020-06-04 00:00:00 Completed [facility] Influenza Virus Vaccine Quad .5 mL IM 6+ MO 2020-06-04 00:00:00 Completed [facility] Influenza Virus Vaccine Quad .5 mL IM 6+ MO 2020-06-04 00:00:00 Completed [facility] Influenza Virus Vaccine Quad .5 mL IM 6+ MO 2020-06-04 00:00:00 Completed [facility] Influenza Virus Vaccine Quad .5 mL IM 6+ MO 2020-06-04 00:00:00 Completed [facility] Influenza Virus Vaccine Quad .5 mL IM 6+ MO 2020-06-04 00:00:00 Completed [facility] Influenza Virus Vaccine Quad .5 mL IM 6+ MO 2020-06-04 00:00:00 Completed [facility] Influenza Virus Vaccine Quad .5 mL IM 6+ MO 2020-06-04 00:00:00 Completed [facility] Influenza Virus Vaccine Quad .5 mL IM 6+ MO 2020-06-04 00:00:00 Completed [facility] Influenza Virus Vaccine Quad .5 mL IM 6+ MO 2020-06-04 00:00:00 Completed [facility] Influenza Virus Vaccine Quad .5 mL IM 6+ MO 2020-06-04 00:00:00 Completed [facility] Influenza Virus Vaccine Quad .5 mL IM 6+ MO 2020-06-04 00:00:00 Completed [facility] Influenza Virus Vaccine Quad .5 mL IM 6+ MO 2020-06-04 00:00:00 Completed [facility] Influenza Virus Vaccine Quad .5 mL IM 6+ MO 2020-06-04 00:00:00 Completed [facility] Influenza Virus Vaccine Quad .5 mL IM 6+ MO 2020-06-04 00:00:00 Completed [facility] Influenza Virus Vaccine Quad .5 mL IM 6+ MO 2020-06-04 00:00:00 Completed [facility] Influenza Virus Vaccine Quad .5 mL IM 6+ MO 2020-06-04 00:00:00 Completed [facility] Influenza Virus Vaccine Quad .5 mL IM 6+ MO 2020-06-04 00:00:00 Completed [facility] Influenza Virus Vaccine Quad .5 mL IM 6+ MO 2020-06-04 00:00:00 Completed [facility] Influenza Virus Vaccine Quad .5 mL IM 6+ MO 2020-06-04 00:00:00 Completed [facility] Influenza Virus Vaccine Quad .5 mL IM 6+ MO 2020-06-04 00:00:00 Completed [facility] Influenza Virus Vaccine Quad .5 mL IM 6+ MO 2020-06-04 00:00:00 Completed [facility] Influenza Virus Vaccine Quad .5 mL IM 6+ MO 2020-06-04 00:00:00 Completed [facility] Influenza Virus Vaccine Quad .5 mL IM 6+ MO 2020-06-04 00:00:00 Completed [facility] Influenza Virus Vaccine Quad .5 mL IM 6+ MO 2020-06-04 00:00:00 Completed [facility] Influenza Virus Vaccine Quad .5 mL IM 6+ MO 2020-06-04 00:00:00 Completed [facility] Influenza Virus Vaccine Quad .5 mL IM 6+ MO 2020-06-04 00:00:00 Completed [facility] Influenza Virus Vaccine Quad .5 mL IM 6+ MO 2020-06-04 00:00:00 Completed [facility] Influenza Virus Vaccine Quad .5 mL IM 6+ MO 2020-06-04 00:00:00 Completed [facility] Influenza Virus Vaccine Quad .5 mL IM 6+ MO 2020-06-04 00:00:00 Completed [facility] Influenza Virus Vaccine Quad .5 mL IM 6+ MO 2020-06-04 00:00:00 Completed [facility] Influenza Virus Vaccine Quad .5 mL IM 6+ MO 2020-06-04 00:00:00 Completed [facility] Influenza Virus Vaccine Quad .5 mL IM 6+ MO 2020-06-04 00:00:00 Completed [facility] Influenza Virus Vaccine Quad .5 mL IM 6+ MO 2020-06-04 00:00:00 Completed [facility] Influenza Virus Vaccine Quad .5 mL IM 6+ MO 2020-06-04 00:00:00 Completed [facility] Influenza Virus Vaccine Quad .5 mL IM 6+ MO 2020-06-04 00:00:00 Completed [facility] Influenza Virus Vaccine Quad .5 mL IM 6+ MO 2020-06-04 00:00:00 Completed [facility] Influenza Virus Vaccine Quad .5 mL IM 6+ MO 2020-06-04 00:00:00 Completed [facility] Influenza Virus Vaccine Quad .5 mL IM 6+ MO 2020-06-04 00:00:00 Completed [facility] Influenza Virus Vaccine Quad .5 mL IM 6+ MO 2020-06-04 00:00:00 Completed [facility] Influenza Virus Vaccine Quad .5 mL IM 6+ MO 2020-06-04 00:00:00 Completed [facility] Influenza Virus Vaccine Quad .5 mL IM 6+ MO 2020-06-04 00:00:00 Completed [facility] Influenza Virus Vaccine Quad .5 mL IM 6+ MO 2020-06-04 00:00:00 Completed [facility] HPV9 2019-09-18 00:00:00 Completed [facility] HPV9 2019-09-18 00:00:00 Completed [facility] HPV9 2019-09-18 00:00:00 Completed [facility] HPV9 2019-09-18 00:00:00 Completed [facility] HPV9 2019-09-18 00:00:00 Completed [facility] HPV9 2019-09-18 00:00:00 Completed [facility] HPV9 2019-09-18 00:00:00 Completed [facility] HPV9 2019-09-18 00:00:00 Completed [facility] HPV9 2019-09-18 00:00:00 Completed [facility] HPV9 2019-09-18 00:00:00 Completed [facility] HPV9 2019-09-18 00:00:00 Completed [facility] HPV9 2019-09-18 00:00:00 Completed [facility] HPV9 2019-09-18 00:00:00 Completed [facility] HPV9 2019-09-18 00:00:00 Completed [facility] HPV9 2019-09-18 00:00:00 Completed [facility] HPV9 2019-09-18 00:00:00 Completed [facility] HPV9 2019-09-18 00:00:00 Completed [facility] HPV9 2019-09-18 00:00:00 Completed [facility] HPV9 2019-09-18 00:00:00 Completed [facility] HPV9 2019-09-18 00:00:00 Completed [facility] HPV9 2019-09-18 00:00:00 Completed [facility] HPV9 2019-09-18 00:00:00 Completed [facility] HPV9 2019-09-18 00:00:00 Completed [facility] HPV9 2019-09-18 00:00:00 Completed [facility] HPV9 2019-09-18 00:00:00 Completed [facility] HPV9 2019-09-18 00:00:00 Completed [facility] HPV9 2019-09-18 00:00:00 Completed [facility] HPV9 2019-09-18 00:00:00 Completed [facility] HPV9 2019-09-18 00:00:00 Completed [facility] HPV9 2019-09-18 00:00:00 Completed [facility] HPV9 2019-09-18 00:00:00 Completed [facility] HPV9 2019-09-18 00:00:00 Completed [facility] HPV9 2019-09-18 00:00:00 Completed [facility] HPV9 2019-09-18 00:00:00 Completed [facility] HPV9 2019-09-18 00:00:00 Completed [facility] HPV9 2019-09-18 00:00:00 Completed [facility] HPV9 2019-09-18 00:00:00 Completed [facility] HPV9 2019-09-18 00:00:00 Completed [facility] HPV9 2019-09-18 00:00:00 Completed [facility] HPV9 2019-09-18 00:00:00 Completed [facility] HPV9 2019-09-18 00:00:00 Completed [facility] HPV9 2019-09-18 00:00:00 Completed [facility] HPV9 2019-09-18 00:00:00 Completed [facility] HPV9 2019-09-18 00:00:00 Completed [facility] HPV9 2019-09-18 00:00:00 Completed [facility] HPV9 2019-09-18 00:00:00 Completed [facility] HPV9 2019-09-18 00:00:00 Completed [facility] HPV9 2019-09-18 00:00:00 Completed [facility] HPV9 2019-09-18 00:00:00 Completed [facility] HPV9 2019-09-18 00:00:00 Completed [facility] HPV9 2019-09-18 00:00:00 Completed [facility] HPV9 2019-09-18 00:00:00 Completed [facility] HPV9 2019-09-18 00:00:00 Completed [facility] HPV9 2019-09-18 00:00:00 Completed [facility] HPV9 2019-09-18 00:00:00 Completed [facility] HPV9 2019-09-18 00:00:00 Completed [facility] HPV9 2019-09-18 00:00:00 Completed [facility] HPV9 2019-09-18 00:00:00 Completed [facility] HPV9 2019-09-18 00:00:00 Completed [facility] HPV9 2019-09-18 00:00:00 Completed [facility] HPV9 2019-09-18 00:00:00 Completed [facility] HPV9 2019-09-18 00:00:00 Completed [facility] HPV9 2019-09-18 00:00:00 Completed [facility] HPV9 2019-09-18 00:00:00 Completed [facility] HPV9 2019-09-18 00:00:00 Completed [facility] HPV9 2019-09-18 00:00:00 Completed [facility] HPV9 2019-09-18 00:00:00 Completed [facility] HPV9 2019-09-18 00:00:00 Completed [facility] HPV9 2019-09-18 00:00:00 Completed [facility] HPV9 2019-09-18 00:00:00 Completed [facility] HPV9 2019-09-18 00:00:00 Completed [facility] HPV9 2019-09-18 00:00:00 Completed [facility] HPV9 2019-09-18 00:00:00 Completed [facility] HPV9 2019-09-18 00:00:00 Completed [facility] HPV9 2019-09-18 00:00:00 Completed [facility] HPV9 2019-09-18 00:00:00 Completed [facility] HPV9 2019-09-18 00:00:00 Completed [facility] HPV9 2019-09-18 00:00:00 Completed [facility] HPV9 2019-09-18 00:00:00 Completed [facility] HPV9 2019-09-18 00:00:00 Completed [facility] HPV9 2019-09-18 00:00:00 Completed [facility] HPV9 2019-09-18 00:00:00 Completed [facility] HPV9 2019-09-18 00:00:00 Completed [facility] HPV9 2019-09-18 00:00:00 Completed [facility] HPV9 2019-09-18 00:00:00 Completed [facility] HPV9 2019-09-18 00:00:00 Completed [facility] HPV9 2019-09-18 00:00:00 Completed [facility] HPV9 2019-09-18 00:00:00 Completed [facility] HPV9 2019-09-18 00:00:00 Completed [facility] HPV9 2019-09-18 00:00:00 Completed [facility] HPV9 2019-09-18 00:00:00 Completed [facility] Rho (d) Immune Globulin 2019-06-10 00:00:00 Completed [facility] Rho (d) Immune Globulin 2019-06-10 00:00:00 Completed [facility] Rho (d) Immune Globulin 2019-06-10 00:00:00 Completed [facility] Rho (d) Immune Globulin 2019-06-10 00:00:00 Completed [facility] Rho (d) Immune Globulin 2019-06-10 00:00:00 Completed [facility] Rho (d) Immune Globulin 2019-06-10 00:00:00 Completed [facility] Rho (d) Immune Globulin 2019-06-10 00:00:00 Completed [facility] Rho (d) Immune Globulin 2019-06-10 00:00:00 Completed [facility] Rho (d) Immune Globulin 2019-06-10 00:00:00 Completed [facility] Rho (d) Immune Globulin 2019-06-10 00:00:00 Completed [facility] Rho (d) Immune Globulin 2019-06-10 00:00:00 Completed [facility] Rho (d) Immune Globulin 2019-06-10 00:00:00 Completed [facility] Rho (d) Immune Globulin 2019-06-10 00:00:00 Completed [facility] Rho (d) Immune Globulin 2019-06-10 00:00:00 Completed [facility] Rho (d) Immune Globulin 2019-06-10 00:00:00 Completed [facility] Rho (d) Immune Globulin 2019-06-10 00:00:00 Completed [facility] Rho (d) Immune Globulin 2019-06-10 00:00:00 Completed [facility] Rho (d) Immune Globulin 2019-06-10 00:00:00 Completed [facility] Rho (d) Immune Globulin 2019-06-10 00:00:00 Completed [facility] Rho (d) Immune Globulin 2019-06-10 00:00:00 Completed [facility] Rho (d) Immune Globulin 2019-06-10 00:00:00 Completed [facility] Rho (d) Immune Globulin 2019-06-10 00:00:00 Completed [facility] Rho (d) Immune Globulin 2019-06-10 00:00:00 Completed [facility] Rho (d) Immune Globulin 2019-06-10 00:00:00 Completed [facility] Rho (d) Immune Globulin 2019-06-10 00:00:00 Completed [facility] Rho (d) Immune Globulin 2019-06-10 00:00:00 Completed [facility] Rho (d) Immune Globulin 2019-06-10 00:00:00 Completed [facility] Rho (d) Immune Globulin 2019-06-10 00:00:00 Completed [facility] Rho (d) Immune Globulin 2019-06-10 00:00:00 Completed [facility] Rho (d) Immune Globulin 2019-06-10 00:00:00 Completed [facility] Rho (d) Immune Globulin 2019-06-10 00:00:00 Completed [facility] Rho (d) Immune Globulin 2019-06-10 00:00:00 Completed [facility] Rho (d) Immune Globulin 2019-06-10 00:00:00 Completed [facility] Rho (d) Immune Globulin 2019-06-10 00:00:00 Completed [facility] Rho (d) Immune Globulin 2019-06-10 00:00:00 Completed [facility] Rho (d) Immune Globulin 2019-06-10 00:00:00 Completed [facility] Rho (d) Immune Globulin 2019-06-10 00:00:00 Completed [facility] Rho (d) Immune Globulin 2019-06-10 00:00:00 Completed [facility] Rho (d) Immune Globulin 2019-06-10 00:00:00 Completed [facility] Rho (d) Immune Globulin 2019-06-10 00:00:00 Completed [facility] Rho (d) Immune Globulin 2019-06-10 00:00:00 Completed [facility] Rho (d) Immune Globulin 2019-06-10 00:00:00 Completed [facility] Rho (d) Immune Globulin 2019-06-10 00:00:00 Completed [facility] Rho (d) Immune Globulin 2019-06-10 00:00:00 Completed [facility] Rho (d) Immune Globulin 2019-06-10 00:00:00 Completed [facility] Rho (d) Immune Globulin 2019-06-10 00:00:00 Completed [facility] Rho (d) Immune Globulin 2019-06-10 00:00:00 [facility] [facility] Immune Globulin 2019-06-10 00:00:00 Completed [facility] Rho (d) Immune Globulin 2019-06-10 00:00:00 Completed [facility] Rho (d) Immune Globulin 2019-06-10 00:00:00 Completed [facility] Rho (d) Immune Globulin 2019-06-10 00:00:00 Completed [facility] Rho (d) Immune Globulin 2019-06-10 00:00:00 Completed [facility] Rho (d) Immune Globulin 2019-06-10 00:00:00 Completed [facility] Rho (d) Immune Globulin 2019-06-10 00:00:00 Completed [facility] Rho (d) Immune Globulin 2019-06-10 00:00:00 Completed [facility] Rho (d) Immune Globulin 2019-06-10 00:00:00 Completed [facility] Rho (d) Immune Globulin 2019-06-10 00:00:00 Completed [facility] Rho (d) Immune Globulin 2019-06-10 00:00:00 Completed [facility] Rho (d) Immune Globulin 2019-06-10 00:00:00 Completed [facility] Rho (d) Immune Globulin 2019-06-10 00:00:00 Completed [facility] Rho (d) Immune Globulin 2019-06-10 00:00:00 Completed [facility] Rho (d) Immune Globulin 2019-06-10 00:00:00 Completed [facility] Rho (d) Immune Globulin 2019-06-10 00:00:00 Completed [facility] Rho (d) Immune Globulin 2019-06-10 00:00:00 Completed [facility] Rho (d) Immune Globulin 2019-06-10 00:00:00 Completed [facility] Rho (d) Immune Globulin 2019-06-10 00:00:00 Completed [facility] Rho (d) Immune Globulin 2019-06-10 00:00:00 Completed [facility] Rho (d) Immune Globulin 2019-06-10 00:00:00 Completed [facility] Rho (d) Immune Globulin 2019-06-10 00:00:00 Completed [facility] Rho (d) Immune Globulin 2019-06-10 00:00:00 Completed [facility] Rho (d) Immune Globulin 2019-06-10 00:00:00 Completed [facility] Rho (d) Immune Globulin 2019-06-10 00:00:00 Completed [facility] Rho (d) Immune Globulin 2019-06-10 00:00:00 Completed [facility] Rho (d) Immune Globulin 2019-06-10 00:00:00 Completed [facility] Rho (d) Immune Globulin 2019-06-10 00:00:00 Completed [facility] Rho (d) Immune Globulin 2019-06-10 00:00:00 Completed [facility] Rho (d) Immune Globulin 2019-06-10 00:00:00 Completed [facility] Rho (d) Immune Globulin 2019-06-10 00:00:00 Completed [facility] Rho (d) Immune Globulin 2019-06-10 00:00:00 Completed [facility] Rho (d) Immune Globulin 2019-06-10 00:00:00 Completed [facility] Rho (d) Immune Globulin 2019-06-10 00:00:00 Completed [facility] Rho (d) Immune Globulin 2019-06-10 00:00:00 Completed [facility] Rho (d) Immune Globulin 2019-06-10 00:00:00 Completed [facility] Rho (d) Immune Globulin 2019-06-10 00:00:00 Completed [facility] Rho (d) Immune Globulin 2019-06-10 00:00:00 Completed [facility] Rho (d) Immune Globulin 2019-06-10 00:00:00 Completed [facility] Rho (d) Immune Globulin 2019-06-10 00:00:00 Completed [facility] Rho (d) Immune Globulin 2019-06-10 00:00:00 Completed [facility] Rho (d) Immune Globulin 2019-06-10 00:00:00 Completed [facility] Rho (d) Immune Globulin 2019-06-10 00:00:00 Completed [facility] Rho (d) Immune Globulin 2019-06-10 00:00:00 Completed [facility] Tdap 2019-03-29 00:00:00 Completed [facility] Rho (d) Immune Globulin 2019-03-29 00:00:00 Completed [facility] Tdap 2019-03-29 00:00:00 Completed [facility] Rho (d) Immune Globulin 2019-03-29 00:00:00 Completed [facility] Tdap 2019-03-29 00:00:00 Completed [facility] Rho (d) Immune Globulin 2019-03-29 00:00:00 Completed [facility] Tdap 2019-03-29 00:00:00 Completed [facility] Rho (d) Immune Globulin 2019-03-29 00:00:00 Completed [facility] Tdap 2019-03-29 00:00:00 Completed [facility] Rho (d) Immune Globulin 2019-03-29 00:00:00 Completed [facility] Tdap 2019-03-29 00:00:00 Completed [facility] Rho (d) Immune Globulin 2019-03-29 00:00:00 Completed [facility] Tdap 2019-03-29 00:00:00 Completed [facility] Rho (d) Immune Globulin 2019-03-29 00:00:00 Completed [facility] Tdap 2019-03-29 00:00:00 Completed [facility] Rho (d) Immune Globulin 2019-03-29 00:00:00 Completed [facility] Tdap 2019-03-29 00:00:00 Completed [facility] Rho (d) Immune Globulin 2019-03-29 00:00:00 Completed [facility] Tdap 2019-03-29 00:00:00 Completed [facility] Rho (d) Immune Globulin 2019-03-29 00:00:00 Completed [facility] Tdap 2019-03-29 00:00:00 Completed [facility] Rho (d) Immune Globulin 2019-03-29 00:00:00 Completed [facility] Tdap 2019-03-29 00:00:00 Completed [facility] Rho (d) Immune Globulin 2019-03-29 00:00:00 Completed [facility] Tdap 2019-03-29 00:00:00 Completed [facility] Rho (d) Immune Globulin 2019-03-29 00:00:00 Completed [facility] TDAP 2019-03-29 00:00:00 Completed [facility] Rho (d) Immune Globulin 2019-03-29 00:00:00 Completed [facility] TDAP 2019-03-29 00:00:00 Completed [facility] Rho (d) Immune Globulin 2019-03-29 00:00:00 Completed [facility] TDAP 2019-03-29 00:00:00 Completed [facility] Rho (d) Immune Globulin 2019-03-29 00:00:00 Completed [facility] TDAP 2019-03-29 00:00:00 Completed [facility] Rho (d) Immune Globulin 2019-03-29 00:00:00 Completed [facility] TDAP 2019-03-29 00:00:00 Completed [facility] Rho (d) Immune Globulin 2019-03-29 00:00:00 Completed [facility] TDAP 2019-03-29 00:00:00 Completed [facility] Rho (d) Immune Globulin 2019-03-29 00:00:00 Completed [facility] TDAP 2019-03-29 00:00:00 Completed [facility] Rho (d) Immune Globulin 2019-03-29 00:00:00 Completed [facility] TDAP 2019-03-29 00:00:00 Completed [facility] Rho (d) Immune Globulin 2019-03-29 00:00:00 Completed [facility] TDAP 2019-03-29 00:00:00 Completed [facility] Rho (d) Immune Globulin 2019-03-29 00:00:00 Completed [facility] TDAP 2019-03-29 00:00:00 Completed [facility] Rho (d) Immune Globulin 2019-03-29 00:00:00 Completed [facility] TDAP 2019-03-29 00:00:00 Completed [facility] Rho (d) Immune Globulin 2019-03-29 00:00:00 Completed [facility] TDAP 2019-03-29 00:00:00 Completed [facility] Rho (d) Immune Globulin 2019-03-29 00:00:00 Completed [facility] TDAP 2019-03-29 00:00:00 Completed [facility] Rho (d) Immune Globulin 2019-03-29 00:00:00 Completed [facility] TDAP 2019-03-29 00:00:00 Completed [facility] Rho (d) Immune Globulin 2019-03-29 00:00:00 Completed [facility] TDAP 2019-03-29 00:00:00 Completed [facility] Rho (d) Immune Globulin 2019-03-29 00:00:00 Completed [facility] TDAP 2019-03-29 00:00:00 Completed [facility] Rho (d) Immune Globulin 2019-03-29 00:00:00 Completed [facility] TDAP 2019-03-29 00:00:00 Completed [facility] Rho (d) Immune Globulin 2019-03-29 00:00:00 Completed [facility] TDAP 2019-03-29 00:00:00 Completed [facility] Rho (d) Immune Globulin 2019-03-29 00:00:00 Completed [facility] TDAP 2019-03-29 00:00:00 Completed [facility] Rho (d) Immune Globulin 2019-03-29 00:00:00 Completed [facility] TDAP 2019-03-29 00:00:00 Completed [facility] Rho (d) Immune Globulin 2019-03-29 00:00:00 Completed [facility] TDAP 2019-03-29 00:00:00 Completed [facility] Rho (d) Immune Globulin 2019-03-29 00:00:00 Completed [facility] TDAP 2019-03-29 00:00:00 Completed [facility] Rho (d) Immune Globulin 2019-03-29 00:00:00 Completed [facility] TDAP 2019-03-29 00:00:00 Completed [facility] Rho (d) Immune Globulin 2019-03-29 00:00:00 Completed [facility] TDAP 2019-03-29 00:00:00 Completed [facility] Rho (d) Immune Globulin 2019-03-29 00:00:00 Completed [facility] TDAP 2019-03-29 00:00:00 Completed [facility] Rho (d) Immune Globulin 2019-03-29 00:00:00 Completed [facility] TDAP 2019-03-29 00:00:00 Completed [facility] Rho (d) Immune Globulin 2019-03-29 00:00:00 Completed [facility] TDAP 2019-03-29 00:00:00 Completed [facility] Rho (d) Immune Globulin 2019-03-29 00:00:00 Completed [facility] TDAP 2019-03-29 00:00:00 Completed [facility] Rho (d) Immune Globulin 2019-03-29 00:00:00 Completed [facility] TDAP 2019-03-29 00:00:00 Completed [facility] Rho (d) Immune Globulin 2019-03-29 00:00:00 Completed [facility] TDAP 2019-03-29 00:00:00 Completed [facility] Rho (d) Immune Globulin 2019-03-29 00:00:00 Completed [facility] TDAP 2019-03-29 00:00:00 Completed [facility] Rho (d) Immune Globulin 2019-03-29 00:00:00 Completed [facility] TDAP 2019-03-29 00:00:00 Completed [facility] Rho (d) Immune Globulin 2019-03-29 00:00:00 Completed [facility] TDAP 2019-03-29 00:00:00 Completed [facility] Rho (d) Immune Globulin 2019-03-29 00:00:00 Completed [facility] TDAP 2019-03-29 00:00:00 Completed [facility] Rho (d) Immune Globulin 2019-03-29 00:00:00 Completed [facility] TDAP 2019-03-29 00:00:00 Completed [facility] Rho (d) Immune Globulin 2019-03-29 00:00:00 Completed [facility] TDAP 2019-03-29 00:00:00 Completed [facility] Rho (d) Immune Globulin 2019-03-29 00:00:00 Completed [facility] TDAP 2019-03-29 00:00:00 Completed [facility] Rho (d) Immune Globulin 2019-03-29 00:00:00 Completed [facility] TDAP 2019-03-29 00:00:00 Completed [facility] Rho (d) Immune Globulin 2019-03-29 00:00:00 Completed [facility] TDAP 2019-03-29 00:00:00 Completed [facility] Rho (d) Immune Globulin 2019-03-29 00:00:00 Completed [facility] TDAP 2019-03-29 00:00:00 Completed [facility] Rho (d) Immune Globulin 2019-03-29 00:00:00 Completed [facility] TDAP 2019-03-29 00:00:00 Completed [facility] Rho (d) Immune Globulin 2019-03-29 00:00:00 Completed [facility] TDAP 2019-03-29 00:00:00 Completed [facility] Rho (d) Immune Globulin 2019-03-29 00:00:00 Completed [facility] TDAP 2019-03-29 00:00:00 Completed [facility] Rho (d) Immune Globulin 2019-03-29 00:00:00 Completed [facility] TDAP 2019-03-29 00:00:00 Completed [facility] Rho (d) Immune Globulin 2019-03-29 00:00:00 Completed [facility] TDAP 2019-03-29 00:00:00 Completed [facility] Rho (d) Immune Globulin 2019-03-29 00:00:00 Completed [facility] TDAP 2019-03-29 00:00:00 Completed [facility] Rho (d) Immune Globulin 2019-03-29 00:00:00 Completed [facility] TDAP 2019-03-29 00:00:00 Completed [facility] Rho (d) Immune Globulin 2019-03-29 00:00:00 Completed [facility] TDAP 2019-03-29 00:00:00 Completed [facility] Rho (d) Immune Globulin 2019-03-29 00:00:00 Completed [facility] TDAP 2019-03-29 00:00:00 Completed [facility] Rho (d) Immune Globulin 2019-03-29 00:00:00 Completed [facility] TDAP 2019-03-29 00:00:00 Completed [facility] Rho (d) Immune Globulin 2019-03-29 00:00:00 Completed [facility] TDAP 2019-03-29 00:00:00 Completed [facility] Rho (d) Immune Globulin 2019-03-29 00:00:00 Completed [facility] TDAP 2019-03-29 00:00:00 Completed [facility] Rho (d) Immune Globulin 2019-03-29 00:00:00 Completed [facility] TDAP 2019-03-29 00:00:00 Completed [facility] Rho (d) Immune Globulin 2019-03-29 00:00:00 Completed [facility] TDAP 2019-03-29 00:00:00 Completed [facility] Rho (d) Immune Globulin 2019-03-29 00:00:00 Completed [facility] TDAP 2019-03-29 00:00:00 Completed [facility] Rho (d) Immune Globulin 2019-03-29 00:00:00 Completed [facility] TDAP 2019-03-29 00:00:00 Completed [facility] Rho (d) Immune Globulin 2019-03-29 00:00:00 Completed [facility] TDAP 2019-03-29 00:00:00 Completed [facility] Rho (d) Immune Globulin 2019-03-29 00:00:00 Completed [facility] TDAP 2019-03-29 00:00:00 Completed [facility] Rho (d) Immune Globulin 2019-03-29 00:00:00 Completed [facility] TDAP 2019-03-29 00:00:00 Completed [facility] Rho (d) Immune Globulin 2019-03-29 00:00:00 Completed [facility] TDAP 2019-03-29 00:00:00 Completed [facility] Rho (d) Immune Globulin 2019-03-29 00:00:00 Completed [facility] TDAP 2019-03-29 00:00:00 Completed [facility] Rho (d) Immune Globulin 2019-03-29 00:00:00 Completed [facility] TDAP 2019-03-29 00:00:00 Completed [facility] Rho (d) Immune Globulin 2019-03-29 00:00:00 Completed [facility] TDAP 2019-03-29 00:00:00 Completed [facility] Rho (d) Immune Globulin 2019-03-29 00:00:00 Completed [facility] TDAP 2019-03-29 00:00:00 Completed [facility] Rho (d) Immune Globulin 2019-03-29 00:00:00 Completed [facility] TDAP 2019-03-29 00:00:00 Completed [facility] Rho (d) Immune Globulin 2019-03-29 00:00:00 Completed [facility] TDAP 2019-03-29 00:00:00 Completed [facility] Rho (d) Immune Globulin 2019-03-29 00:00:00 Completed [facility] TDAP 2019-03-29 00:00:00 Completed [facility] Rho (d) Immune Globulin 2019-03-29 00:00:00 Completed [facility] TDAP 2019-03-29 00:00:00 Completed [facility] Rho (d) Immune Globulin 2019-03-29 00:00:00 Completed [facility] TDAP 2019-03-29 00:00:00 Completed [facility] Rho (d) Immune Globulin 2019-03-29 00:00:00 Completed [facility] TDAP 2019-03-29 00:00:00 Completed [facility] Rho (d) Immune Globulin 2019-03-29 00:00:00 Completed [facility] TDAP 2019-03-29 00:00:00 Completed [facility] Rho (d) Immune Globulin 2019-03-29 00:00:00 Completed [facility] TDAP 2019-03-29 00:00:00 Completed [facility] Rho (d) Immune Globulin 2019-03-29 00:00:00 Completed [facility] TDAP 2019-03-29 00:00:00 Completed [facility] Rho (d) Immune Globulin 2019-03-29 00:00:00 Completed [facility] TDAP 2019-03-29 00:00:00 Completed [facility] Rho (d) Immune Globulin 2019-03-29 00:00:00 Completed [facility] TDAP 2019-03-29 00:00:00 Completed [facility] Rho (d) Immune Globulin 2019-03-29 00:00:00 Completed [facility] TDAP 2019-03-29 00:00:00 Completed [facility] Rho (d) Immune Globulin 2019-03-29 00:00:00 Completed [facility] TDAP 2019-03-29 00:00:00 Completed [facility] Rho (d) Immune Globulin 2019-03-29 00:00:00 Completed [facility] TDAP 2019-03-29 00:00:00 Completed [facility] Rho (d) Immune Globulin 2019-03-29 00:00:00 Completed [facility] TDAP 2019-03-29 00:00:00 Completed [facility] Rho (d) Immune Globulin 2019-03-29 00:00:00 Completed [facility] TDAP 2019-03-29 00:00:00 Completed [facility] Rho (d) Immune Globulin 2019-03-29 00:00:00 Completed [facility] TDAP 2019-03-29 00:00:00 Completed [facility] Rho (d) Immune Globulin 2019-03-29 00:00:00 Completed [facility] TDAP 2019-03-29 00:00:00 Completed [facility] Rho (d) Immune Globulin 2019-03-29 00:00:00 Completed [facility] Tdap 2019-03-29 00:00:00 Completed [facility] Rho (d) Immune Globulin 2019-03-29 00:00:00 Completed [facility] Tdap 2019-03-29 00:00:00 Completed [facility] Rho (d) Immune Globulin 2019-03-29 00:00:00 Completed [facility] Tdap 2019-03-29 00:00:00 Completed [facility] Rho (d) Immune Globulin 2019-03-29 00:00:00 Completed [facility] Tdap 2019-03-29 00:00:00 Completed [facility] Rho (d) Immune Globulin 2019-03-29 00:00:00 Completed [facility] Tdap 2019-03-29 00:00:00 Completed [facility] Rho (d) Immune Globulin 2019-03-29 00:00:00 Completed [facility] Tdap 2019-03-29 00:00:00 Completed [facility] Rho (d) Immune Globulin 2019-03-29 00:00:00 Completed [facility] Tdap 2019-03-29 00:00:00 Completed [facility] Rho (d) Immune Globulin 2019-03-29 00:00:00 Completed [facility] Tdap 2019-03-29 00:00:00 Completed [facility] Rho (d) Immune Globulin 2019-03-29 00:00:00 Completed [facility] Influenza Virus Vaccine Quad .5 mL IM 6+ MO 2018-10-20 00:00:00 Completed [facility] Influenza Virus Vaccine Quad .5 mL IM 6+ MO 2018-10-20 00:00:00 Completed [facility] Influenza Virus Vaccine Quad .5 mL IM 6+ MO 2018-10-20 00:00:00 Completed [facility] Influenza Virus Vaccine Quad .5 mL IM 6+ MO 2018-10-20 00:00:00 Completed [facility] Influenza Virus Vaccine Quad .5 mL IM 6+ MO 2018-10-20 00:00:00 Completed [facility] Influenza Virus Vaccine Quad .5 mL IM 6+ MO 2018-10-20 00:00:00 Completed [facility] Influenza Virus Vaccine Quad .5 mL IM 6+ MO 2018-10-20 00:00:00 Completed [facility] Influenza Virus Vaccine Quad .5 mL IM 6+ MO 2018-10-20 00:00:00 Completed [facility] Influenza Virus Vaccine Quad .5 mL IM 6+ MO 2018-10-20 00:00:00 Completed [facility] Influenza Virus Vaccine Quad .5 mL IM 6+ MO 2018-10-20 00:00:00 Completed [facility] Influenza Virus Vaccine Quad .5 mL IM 6+ MO 2018-10-20 00:00:00 Completed [facility] Influenza Virus Vaccine Quad .5 mL IM 6+ MO 2018-10-20 00:00:00 Completed [facility] Influenza Virus Vaccine Quad .5 mL IM 6+ MO 2018-10-20 00:00:00 Completed [facility] Influenza Virus Vaccine Quad .5 mL IM 6+ MO 2018-10-20 00:00:00 Completed [facility] Influenza Virus Vaccine Quad .5 mL IM 6+ MO 2018-10-20 00:00:00 Completed [facility] Influenza Virus Vaccine Quad .5 mL IM 6+ MO 2018-10-20 00:00:00 Completed [facility] Influenza Virus Vaccine Quad .5 mL IM 6+ MO 2018-10-20 00:00:00 Completed [facility] Influenza Virus Vaccine Quad .5 mL IM 6+ MO 2018-10-20 00:00:00 Completed [facility] Influenza Virus Vaccine Quad .5 mL IM 6+ MO 2018-10-20 00:00:00 Completed [facility] Influenza Virus Vaccine Quad .5 mL IM 6+ MO 2018-10-20 00:00:00 Completed [facility] Influenza Virus Vaccine Quad .5 mL IM 6+ MO 2018-10-20 00:00:00 Completed [facility] Influenza Virus Vaccine Quad .5 mL IM 6+ MO 2018-10-20 00:00:00 Completed [facility] Influenza Virus Vaccine Quad .5 mL IM 6+ MO 2018-10-20 00:00:00 Completed [facility] Influenza Virus Vaccine Quad .5 mL IM 6+ MO 2018-10-20 00:00:00 Completed [facility] Influenza Virus Vaccine Quad .5 mL IM 6+ MO 2018-10-20 00:00:00 Completed [facility] Influenza Virus Vaccine Quad .5 mL IM 6+ MO 2018-10-20 00:00:00 Completed [facility] Influenza Virus Vaccine Quad .5 mL IM 6+ MO 2018-10-20 00:00:00 Completed [facility] Influenza Virus Vaccine Quad .5 mL IM 6+ MO 2018-10-20 00:00:00 Completed [facility] Influenza Virus Vaccine Quad .5 mL IM 6+ MO 2018-10-20 00:00:00 Completed [facility] Influenza Virus Vaccine Quad .5 mL IM 6+ MO 2018-10-20 00:00:00 Completed [facility] Influenza Virus Vaccine Quad .5 mL IM 6+ MO 2018-10-20 00:00:00 Completed [facility] Influenza Virus Vaccine Quad .5 mL IM 6+ MO 2018-10-20 00:00:00 Completed [facility] Influenza Virus Vaccine Quad .5 mL IM 6+ MO 2018-10-20 00:00:00 Completed [facility] Influenza Virus Vaccine Quad .5 mL IM 6+ MO 2018-10-20 00:00:00 Completed [facility] Influenza Virus Vaccine Quad .5 mL IM 6+ MO 2018-10-20 00:00:00 Completed [facility] Influenza Virus Vaccine Quad .5 mL IM 6+ MO 2018-10-20 00:00:00 Completed [facility] Influenza Virus Vaccine Quad .5 mL IM 6+ MO 2018-10-20 00:00:00 Completed [facility] Influenza Virus Vaccine Quad .5 mL IM 6+ MO 2018-10-20 00:00:00 Completed [facility] Influenza Virus Vaccine Quad .5 mL IM 6+ MO 2018-10-20 00:00:00 Completed [facility] Influenza Virus Vaccine Quad .5 mL IM 6+ MO 2018-10-20 00:00:00 Completed [facility] Influenza Virus Vaccine Quad .5 mL IM 6+ MO 2018-10-20 00:00:00 Completed [facility] Influenza Virus Vaccine Quad .5 mL IM 6+ MO 2018-10-20 00:00:00 Completed [facility] Influenza Virus Vaccine Quad .5 mL IM 6+ MO 2018-10-20 00:00:00 Completed [facility] Influenza Virus Vaccine Quad .5 mL IM 6+ MO 2018-10-20 00:00:00 Completed [facility] Influenza Virus Vaccine Quad .5 mL IM 6+ MO 2018-10-20 00:00:00 Completed [facility] Influenza Virus Vaccine Quad .5 mL IM 6+ MO 2018-10-20 00:00:00 Completed [facility] Influenza Virus Vaccine Quad .5 mL IM 6+ MO 2018-10-20 00:00:00 Completed [facility] Influenza Virus Vaccine Quad .5 mL IM 6+ MO 2018-10-20 00:00:00 Completed [facility] Influenza Virus Vaccine Quad .5 mL IM 6+ MO 2018-10-20 00:00:00 Completed [facility] Influenza Virus Vaccine Quad .5 mL IM 6+ MO 2018-10-20 00:00:00 Completed [facility] Influenza Virus Vaccine Quad .5 mL IM 6+ MO 2018-10-20 00:00:00 Completed [facility] Influenza Virus Vaccine Quad .5 mL IM 6+ MO 2018-10-20 00:00:00 Completed [facility] Influenza Virus Vaccine Quad .5 mL IM 6+ MO 2018-10-20 00:00:00 Completed [facility] Influenza Virus Vaccine Quad .5 mL IM 6+ MO 2018-10-20 00:00:00 Completed [facility] Influenza Virus Vaccine Quad .5 mL IM 6+ MO 2018-10-20 00:00:00 Completed [facility] Influenza Virus Vaccine Quad .5 mL IM 6+ MO 2018-10-20 00:00:00 Completed [facility] Influenza Virus Vaccine Quad .5 mL IM 6+ MO 2018-10-20 00:00:00 Completed [facility] Influenza Virus Vaccine Quad .5 mL IM 6+ MO 2018-10-20 00:00:00 Completed [facility] Influenza Virus Vaccine Quad .5 mL IM 6+ MO 2018-10-20 00:00:00 Completed [facility] Influenza Virus Vaccine Quad .5 mL IM 6+ MO 2018-10-20 00:00:00 Completed [facility] Influenza Virus Vaccine Quad .5 mL IM 6+ MO 2018-10-20 00:00:00 Completed [facility] Influenza Virus Vaccine Quad .5 mL IM 6+ MO 2018-10-20 00:00:00 Completed [facility] Influenza Virus Vaccine Quad .5 mL IM 6+ MO 2018-10-20 00:00:00 Completed [facility] Influenza Virus Vaccine Quad .5 mL IM 6+ MO 2018-10-20 00:00:00 Completed [facility] Influenza Virus Vaccine Quad .5 mL IM 6+ MO 2018-10-20 00:00:00 Completed [facility] Influenza Virus Vaccine Quad .5 mL IM 6+ MO 2018-10-20 00:00:00 Completed [facility] Influenza Virus Vaccine Quad .5 mL IM 6+ MO 2018-10-20 00:00:00 Completed [facility] Influenza Virus Vaccine Quad .5 mL IM 6+ MO 2018-10-20 00:00:00 Completed [facility] Influenza Virus Vaccine Quad .5 mL IM 6+ MO 2018-10-20 00:00:00 Completed [facility] Influenza Virus Vaccine Quad .5 mL IM 6+ MO 2018-10-20 00:00:00 Completed [facility] Influenza Virus Vaccine Quad .5 mL IM 6+ MO 2018-10-20 00:00:00 Completed [facility] Influenza Virus Vaccine Quad .5 mL IM 6+ MO 2018-10-20 00:00:00 Completed [facility] Influenza Virus Vaccine Quad .5 mL IM 6+ MO 2018-10-20 00:00:00 Completed [facility] Influenza Virus Vaccine Quad .5 mL IM 6+ MO 2018-10-20 00:00:00 Completed [facility] Influenza Virus Vaccine Quad .5 mL IM 6+ MO 2018-10-20 00:00:00 Completed [facility] Influenza Virus Vaccine Quad .5 mL IM 6+ MO 2018-10-20 00:00:00 Completed [facility] Influenza Virus Vaccine Quad .5 mL IM 6+ MO 2018-10-20 00:00:00 Completed [facility] Influenza Virus Vaccine Quad .5 mL IM 6+ MO 2018-10-20 00:00:00 Completed [facility] Influenza Virus Vaccine Quad .5 mL IM 6+ MO 2018-10-20 00:00:00 Completed [facility] Influenza Virus Vaccine Quad .5 mL IM 6+ MO 2018-10-20 00:00:00 Completed [facility] Influenza Virus Vaccine Quad .5 mL IM 6+ MO 2018-10-20 00:00:00 Completed [facility] Influenza Virus Vaccine Quad .5 mL IM 6+ MO 2018-10-20 00:00:00 Completed [facility] Influenza Virus Vaccine Quad .5 mL IM 6+ MO 2018-10-20 00:00:00 Completed [facility] Influenza Virus Vaccine Quad .5 mL IM 6+ MO 2018-10-20 00:00:00 Completed [facility] Influenza Virus Vaccine Quad .5 mL IM 6+ MO 2018-10-20 00:00:00 Completed [facility] Influenza Virus Vaccine Quad .5 mL IM 6+ MO 2018-10-20 00:00:00 Completed [facility] Influenza Virus Vaccine Quad .5 mL IM 6+ MO 2018-10-20 00:00:00 Completed [facility] Influenza Virus Vaccine Quad .5 mL IM 6+ MO 2018-10-20 00:00:00 Completed [facility] Influenza Virus Vaccine Quad .5 mL IM 6+ MO 2018-10-20 00:00:00 Completed [facility] Influenza Virus Vaccine Quad .5 mL IM 6+ MO 2018-10-20 00:00:00 Completed [facility] Influenza Virus Vaccine Quad .5 mL IM 6+ MO 2018-10-20 00:00:00 Completed [facility] Influenza Virus Vaccine Quad .5 mL IM 6+ MO 2018-10-20 00:00:00 Completed [facility] Influenza Virus Vaccine Quad .5 mL IM 6+ MO 2018-10-20 00:00:00 Completed [facility] Influenza Virus Vaccine Quad .5 mL IM 6+ MO 2018-10-20 00:00:00 Completed [facility] Influenza Virus Vaccine Quad .5 mL IM 6+ MO 2018-10-20 00:00:00 Completed [facility] Influenza Virus Vaccine Quad .5 mL IM 6+ MO 2018-10-20 00:00:00 Completed [facility] Influenza Virus Vaccine Quad .5 mL IM 6+ MO 2018-10-20 00:00:00 Completed [facility] Influenza Virus Vaccine Quad .5 mL IM 6+ MO 2018-10-20 00:00:00 Completed [facility] Influenza Virus Vaccine Quad .5 mL IM 6+ MO 2018-10-20 00:00:00 Completed [facility] Influenza Virus Vaccine Quad .5 mL IM 6+ MO 2018-10-20 00:00:00 Completed [facility] Influenza Virus Vaccine Quad .5 mL IM 6+ MO 2018-10-20 00:00:00 Completed [facility] Influenza Virus Vaccine Quad .5 mL IM 6+ MO 2018-10-20 00:00:00 Completed [facility] Influenza Virus Vaccine Quad .5 mL IM 6+ MO 2018-10-20 00:00:00 Completed [facility] Influenza Virus Vaccine Quad .5 mL IM 6+ MO 2018-10-20 00:00:00 Completed [facility] Influenza Virus Vaccine Quad .5 mL IM 6+ MO 2018-10-20 00:00:00 Completed [facility] Influenza Virus Vaccine Quad .5 mL IM 6+ MO 2018-10-20 00:00:00 Completed [facility] Influenza Virus Vaccine Quad .5 mL IM 6+ MO 2018-10-20 00:00:00 Completed [facility] Influenza Virus Vaccine Quad .5 mL IM 6+ MO 2018-10-20 00:00:00 Completed [facility] Influenza Virus Vaccine Quad .5 mL IM 6+ MO 2018-10-20 00:00:00 Completed [facility] Influenza Virus Vaccine Quad .5 mL IM 6+ MO 2018-10-20 00:00:00 Completed [facility] Influenza Virus Vaccine Quad .5 mL IM 6+ MO 2018-10-20 00:00:00 Completed [facility] Influenza Virus Vaccine Quad .5 mL IM 6+ MO 2018-10-20 00:00:00 Completed [facility] HPV9 2018-07-11 00:00:00 Completed [facility] HPV9 2018-07-11 00:00:00 Completed [facility] HPV9 2018-07-11 00:00:00 Completed [facility] HPV9 2018-07-11 00:00:00 Completed [facility] HPV9 2018-07-11 00:00:00 Completed [facility] HPV9 2018-07-11 00:00:00 Completed [facility] HPV9 2018-07-11 00:00:00 Completed [facility] HPV9 2018-07-11 00:00:00 Completed [facility] HPV9 2018-07-11 00:00:00 Completed [facility] HPV9 2018-07-11 00:00:00 Completed [facility] HPV9 2018-07-11 00:00:00 Completed [facility] HPV9 2018-07-11 00:00:00 Completed [facility] HPV9 2018-07-11 00:00:00 Completed [facility] HPV9 2018-07-11 00:00:00 Completed [facility] HPV9 2018-07-11 00:00:00 Completed [facility] HPV9 2018-07-11 00:00:00 Completed [facility] HPV9 2018-07-11 00:00:00 Completed [facility] HPV9 2018-07-11 00:00:00 Completed [facility] HPV9 2018-07-11 00:00:00 Completed [facility] HPV9 2018-07-11 00:00:00 Completed [facility] HPV9 2018-07-11 00:00:00 Completed [facility] HPV9 2018-07-11 00:00:00 Completed [facility] HPV9 2018-07-11 00:00:00 Completed [facility] HPV9 2018-07-11 00:00:00 Completed [facility] HPV9 2018-07-11 00:00:00 Completed [facility] HPV9 2018-07-11 00:00:00 Completed [facility] HPV9 2018-07-11 00:00:00 Completed [facility] HPV9 2018-07-11 00:00:00 Completed [facility] HPV9 2018-07-11 00:00:00 Completed [facility] HPV9 2018-07-11 00:00:00 Completed [facility] HPV9 2018-07-11 00:00:00 Completed [facility] HPV9 2018-07-11 00:00:00 Completed [facility] HPV9 2018-07-11 00:00:00 Completed [facility] HPV9 2018-07-11 00:00:00 Completed [facility] HPV9 2018-07-11 00:00:00 Completed [facility] HPV9 2018-07-11 00:00:00 Completed [facility] HPV9 2018-07-11 00:00:00 Completed [facility] HPV9 2018-07-11 00:00:00 Completed [facility] HPV9 2018-07-11 00:00:00 Completed [facility] HPV9 2018-07-11 00:00:00 Completed [facility] HPV9 2018-07-11 00:00:00 Completed [facility] HPV9 2018-07-11 00:00:00 Completed [facility] HPV9 2018-07-11 00:00:00 Completed [facility] HPV9 2018-07-11 00:00:00 Completed [facility] HPV9 2018-07-11 00:00:00 Completed [facility] HPV9 2018-07-11 00:00:00 Completed [facility] HPV9 2018-07-11 00:00:00 Completed [facility] HPV9 2018-07-11 00:00:00 Completed [facility] HPV9 2018-07-11 00:00:00 Completed [facility] HPV9 2018-07-11 00:00:00 Completed [facility] HPV9 2018-07-11 00:00:00 Completed [facility] HPV9 2018-07-11 00:00:00 Completed [facility] HPV9 2018-07-11 00:00:00 Completed [facility] HPV9 2018-07-11 00:00:00 Completed [facility] HPV9 2018-07-11 00:00:00 Completed [facility] HPV9 2018-07-11 00:00:00 Completed [facility] HPV9 2018-07-11 00:00:00 Completed [facility] HPV9 2018-07-11 00:00:00 Completed [facility] HPV9 2018-07-11 00:00:00 Completed [facility] HPV9 2018-07-11 00:00:00 Completed [facility] HPV9 2018-07-11 00:00:00 Completed [facility] HPV9 2018-07-11 00:00:00 Completed [facility] HPV9 2018-07-11 00:00:00 Completed [facility] HPV9 2018-07-11 00:00:00 Completed [facility] HPV9 2018-07-11 00:00:00 Completed [facility] HPV9 2018-07-11 00:00:00 Completed [facility] HPV9 2018-07-11 00:00:00 Completed [facility] HPV9 2018-07-11 00:00:00 Completed [facility] HPV9 2018-07-11 00:00:00 Completed [facility] HPV9 2018-07-11 00:00:00 Completed [facility] HPV9 2018-07-11 00:00:00 Completed [facility] HPV9 2018-07-11 00:00:00 Completed [facility] HPV9 2018-07-11 00:00:00 Completed [facility] HPV9 2018-07-11 00:00:00 Completed [facility] HPV9 2018-07-11 00:00:00 Completed [facility] HPV9 2018-07-11 00:00:00 Completed [facility] HPV9 2018-07-11 00:00:00 Completed [facility] HPV9 2018-07-11 00:00:00 Completed [facility] HPV9 2018-07-11 00:00:00 Completed [facility] HPV9 2018-07-11 00:00:00 Completed [facility] HPV9 2018-07-11 00:00:00 Completed [facility] HPV9 2018-07-11 00:00:00 Completed [facility] HPV9 2018-07-11 00:00:00 Completed [facility] HPV9 2018-07-11 00:00:00 Completed [facility] HPV9 2018-07-11 00:00:00 Completed [facility] HPV9 2018-07-11 00:00:00 Completed [facility] HPV9 2018-07-11 00:00:00 Completed [facility] HPV9 2018-07-11 00:00:00 Completed [facility] HPV9 2018-07-11 00:00:00 Completed [facility] HPV9 2018-07-11 00:00:00 Completed [facility] HPV9 2018-07-11 00:00:00 Completed [facility] HPV9 2018-07-11 00:00:00 Completed [facility] HPV9 2018-07-11 00:00:00 Completed [facility] HPV9 2018-07-11 00:00:00 Completed [facility] HPV9 2018-07-11 00:00:00 Completed [facility] HPV9 2018-07-11 00:00:00 Completed [facility] HPV9 2018-07-11 00:00:00 Completed [facility] HPV9 2018-07-11 00:00:00 Completed [facility] HPV9 2018-07-11 00:00:00 Completed [facility] HPV9 2018-07-11 00:00:00 Completed [facility] HPV9 2018-07-11 00:00:00 Completed [facility] HPV9 2018-07-11 00:00:00 Completed [facility] HPV9 2018-07-11 00:00:00 Completed [facility] HPV9 2018-07-11 00:00:00 Completed [facility] HPV9 2018-07-11 00:00:00 Completed [facility] HPV9 2018-07-11 00:00:00 Completed [facility] HPV9 2018-07-11 00:00:00 Completed [facility] HPV9 2018-07-11 00:00:00 Completed [facility] HPV9 2018-07-11 00:00:00 Completed [facility] HPV9 2018-07-11 00:00:00 Completed [facility] HPV9 2018-07-11 00:00:00 Completed [facility] HPV9 2018-07-11 00:00:00 Completed [facility] HPV9 2018-06-11 00:00:00 Completed [facility] Rho (d) Immune Globulin 2018-06-11 00:00:00 Completed [facility] HPV9 2018-06-11 00:00:00 Completed [facility] Rho (d) Immune Globulin 2018-06-11 00:00:00 Completed [facility] HPV9 2018-06-11 00:00:00 Completed [facility] Rho (d) Immune Globulin 2018-06-11 00:00:00 Completed [facility] HPV9 2018-06-11 00:00:00 Completed [facility] Rho (d) Immune Globulin 2018-06-11 00:00:00 Completed [facility] HPV9 2018-06-11 00:00:00 Completed [facility] Rho (d) Immune Globulin 2018-06-11 00:00:00 Completed [facility] HPV9 2018-06-11 00:00:00 Completed [facility] Rho (d) Immune Globulin 2018-06-11 00:00:00 Completed [facility] HPV9 2018-06-11 00:00:00 Completed [facility] Rho (d) Immune Globulin 2018-06-11 00:00:00 Completed [facility] HPV9 2018-06-11 00:00:00 Completed [facility] Rho (d) Immune Globulin 2018-06-11 00:00:00 Completed [facility] HPV9 2018-06-11 00:00:00 Completed [facility] Rho (d) Immune Globulin 2018-06-11 00:00:00 Completed [facility] HPV9 2018-06-11 00:00:00 Completed [facility] Rho (d) Immune Globulin 2018-06-11 00:00:00 Completed [facility] HPV9 2018-06-11 00:00:00 Completed [facility] Rho (d) Immune Globulin 2018-06-11 00:00:00 Completed [facility] HPV9 2018-06-11 00:00:00 Completed [facility] Rho (d) Immune Globulin 2018-06-11 00:00:00 Completed [facility] HPV9 2018-06-11 00:00:00 Completed [facility] Rho (d) Immune Globulin 2018-06-11 00:00:00 Completed [facility] HPV9 2018-06-11 00:00:00 Completed [facility] Rho (d) Immune Globulin 2018-06-11 00:00:00 Completed [facility] HPV9 2018-06-11 00:00:00 Completed [facility] Rho (d) Immune Globulin 2018-06-11 00:00:00 Completed [facility] HPV9 2018-06-11 00:00:00 Completed [facility] Rho (d) Immune Globulin 2018-06-11 00:00:00 Completed [facility] HPV9 2018-06-11 00:00:00 Completed [facility] Rho (d) Immune Globulin 2018-06-11 00:00:00 Completed [facility] HPV9 2018-06-11 00:00:00 Completed [facility] Rho (d) Immune Globulin 2018-06-11 00:00:00 Completed [facility] HPV9 2018-06-11 00:00:00 Completed [facility] Rho (d) Immune Globulin 2018-06-11 00:00:00 Completed [facility] HPV9 2018-06-11 00:00:00 Completed [facility] Rho (d) Immune Globulin 2018-06-11 00:00:00 Completed [facility] HPV9 2018-06-11 00:00:00 Completed [facility] Rho (d) Immune Globulin 2018-06-11 00:00:00 Completed [facility] HPV9 2018-06-11 00:00:00 Completed [facility] Rho (d) Immune Globulin 2018-06-11 00:00:00 Completed [facility] HPV9 2018-06-11 00:00:00 Completed [facility] Rho (d) Immune Globulin 2018-06-11 00:00:00 Completed [facility] HPV9 2018-06-11 00:00:00 Completed [facility] Rho (d) Immune Globulin 2018-06-11 00:00:00 Completed [facility] HPV9 2018-06-11 00:00:00 Completed [facility] Rho (d) Immune Globulin 2018-06-11 00:00:00 Completed [facility] HPV9 2018-06-11 00:00:00 Completed [facility] Rho (d) Immune Globulin 2018-06-11 00:00:00 Completed [facility] HPV9 2018-06-11 00:00:00 Completed [facility] Rho (d) Immune Globulin 2018-06-11 00:00:00 Completed [facility] HPV9 2018-06-11 00:00:00 Completed [facility] Rho (d) Immune Globulin 2018-06-11 00:00:00 Completed [facility] HPV9 2018-06-11 00:00:00 Completed [facility] Rho (d) Immune Globulin 2018-06-11 00:00:00 Completed [facility] HPV9 2018-06-11 00:00:00 Completed [facility] Rho (d) Immune Globulin 2018-06-11 00:00:00 Completed [facility] HPV9 2018-06-11 00:00:00 Completed [facility] Rho (d) Immune Globulin 2018-06-11 00:00:00 Completed [facility] HPV9 2018-06-11 00:00:00 Completed [facility] Rho (d) Immune Globulin 2018-06-11 00:00:00 Completed [facility] HPV9 2018-06-11 00:00:00 Completed [facility] Rho (d) Immune Globulin 2018-06-11 00:00:00 Completed [facility] HPV9 2018-06-11 00:00:00 Completed [facility] Rho (d) Immune Globulin 2018-06-11 00:00:00 Completed [facility] HPV9 2018-06-11 00:00:00 Completed [facility] Rho (d) Immune Globulin 2018-06-11 00:00:00 Completed [facility] HPV9 2018-06-11 00:00:00 Completed [facility] Rho (d) Immune Globulin 2018-06-11 00:00:00 Completed [facility] HPV9 2018-06-11 00:00:00 Completed [facility] Rho (d) Immune Globulin 2018-06-11 00:00:00 Completed [facility] HPV9 2018-06-11 00:00:00 Completed [facility] Rho (d) Immune Globulin 2018-06-11 00:00:00 Completed [facility] HPV9 2018-06-11 00:00:00 Completed [facility] Rho (d) Immune Globulin 2018-06-11 00:00:00 Completed [facility] HPV9 2018-06-11 00:00:00 Completed [facility] Rho (d) Immune Globulin 2018-06-11 00:00:00 Completed [facility] HPV9 2018-06-11 00:00:00 Completed [facility] Rho (d) Immune Globulin 2018-06-11 00:00:00 Completed [facility] HPV9 2018-06-11 00:00:00 Completed [facility] Rho (d) Immune Globulin 2018-06-11 00:00:00 Completed [facility] HPV9 2018-06-11 00:00:00 Completed [facility] Rho (d) Immune Globulin 2018-06-11 00:00:00 Completed [facility] HPV9 2018-06-11 00:00:00 Completed [facility] Rho (d) Immune Globulin 2018-06-11 00:00:00 Completed [facility] HPV9 2018-06-11 00:00:00 Completed [facility] Rho (d) Immune Globulin 2018-06-11 00:00:00 Completed [facility] HPV9 2018-06-11 00:00:00 Completed [facility] Rho (d) Immune Globulin 2018-06-11 00:00:00 Completed [facility] HPV9 2018-06-11 00:00:00 Completed [facility] Rho (d) Immune Globulin 2018-06-11 00:00:00 Completed [facility] HPV9 2018-06-11 00:00:00 Completed [facility] Rho (d) Immune Globulin 2018-06-11 00:00:00 Completed [facility] HPV9 2018-06-11 00:00:00 Completed [facility] Rho (d) Immune Globulin 2018-06-11 00:00:00 Completed [facility] HPV9 2018-06-11 00:00:00 Completed [facility] Rho (d) Immune Globulin 2018-06-11 00:00:00 Completed [facility] HPV9 2018-06-11 00:00:00 Completed [facility] Rho (d) Immune Globulin 2018-06-11 00:00:00 Completed [facility] HPV9 2018-06-11 00:00:00 Completed [facility] Rho (d) Immune Globulin 2018-06-11 00:00:00 Completed [facility] HPV9 2018-06-11 00:00:00 Completed [facility] Rho (d) Immune Globulin 2018-06-11 00:00:00 Completed [facility] HPV9 2018-06-11 00:00:00 Completed [facility] Rho (d) Immune Globulin 2018-06-11 00:00:00 Completed [facility] HPV9 2018-06-11 00:00:00 Completed [facility] Rho (d) Immune Globulin 2018-06-11 00:00:00 Completed [facility] HPV9 2018-06-11 00:00:00 Completed [facility] Rho (d) Immune Globulin 2018-06-11 00:00:00 Completed [facility] HPV9 2018-06-11 00:00:00 Completed [facility] Rho (d) Immune Globulin 2018-06-11 00:00:00 Completed [facility] HPV9 2018-06-11 00:00:00 Completed [facility] Rho (d) Immune Globulin 2018-06-11 00:00:00 Completed [facility] HPV9 2018-06-11 00:00:00 Completed [facility] Rho (d) Immune Globulin 2018-06-11 00:00:00 Completed [facility] HPV9 2018-06-11 00:00:00 Completed [facility] Rho (d) Immune Globulin 2018-06-11 00:00:00 Completed [facility] HPV9 2018-06-11 00:00:00 Completed [facility] Rho (d) Immune Globulin 2018-06-11 00:00:00 Completed [facility] HPV9 2018-06-11 00:00:00 Completed [facility] Rho (d) Immune Globulin 2018-06-11 00:00:00 Completed [facility] HPV9 2018-06-11 00:00:00 Completed [facility] Rho (d) Immune Globulin 2018-06-11 00:00:00 Completed [facility] HPV9 2018-06-11 00:00:00 Completed [facility] Rho (d) Immune Globulin 2018-06-11 00:00:00 Completed [facility] HPV9 2018-06-11 00:00:00 Completed [facility] Rho (d) Immune Globulin 2018-06-11 00:00:00 Completed [facility] HPV9 2018-06-11 00:00:00 Completed [facility] Rho (d) Immune Globulin 2018-06-11 00:00:00 Completed [facility] HPV9 2018-06-11 00:00:00 Completed [facility] Rho (d) Immune Globulin 2018-06-11 00:00:00 Completed [facility] HPV9 2018-06-11 00:00:00 Completed [facility] Rho (d) Immune Globulin 2018-06-11 00:00:00 Completed [facility] HPV9 2018-06-11 00:00:00 Completed [facility] Rho (d) Immune Globulin 2018-06-11 00:00:00 Completed [facility] HPV9 2018-06-11 00:00:00 Completed [facility] Rho (d) Immune Globulin 2018-06-11 00:00:00 Completed [facility] HPV9 2018-06-11 00:00:00 Completed [facility] Rho (d) Immune Globulin 2018-06-11 00:00:00 Completed [facility] HPV9 2018-06-11 00:00:00 Completed [facility] Rho (d) Immune Globulin 2018-06-11 00:00:00 Completed [facility] HPV9 2018-06-11 00:00:00 Completed [facility] Rho (d) Immune Globulin 2018-06-11 00:00:00 Completed [facility] HPV9 2018-06-11 00:00:00 Completed [facility] Rho (d) Immune Globulin 2018-06-11 00:00:00 Completed [facility] HPV9 2018-06-11 00:00:00 Completed [facility] Rho (d) Immune Globulin 2018-06-11 00:00:00 Completed [facility] HPV9 2018-06-11 00:00:00 Completed [facility] Rho (d) Immune Globulin 2018-06-11 00:00:00 Completed [facility] HPV9 2018-06-11 00:00:00 Completed [facility] Rho (d) Immune Globulin 2018-06-11 00:00:00 Completed [facility] HPV9 2018-06-11 00:00:00 Completed [facility] Rho (d) Immune Globulin 2018-06-11 00:00:00 Completed [facility] HPV9 2018-06-11 00:00:00 Completed [facility] Rho (d) Immune Globulin 2018-06-11 00:00:00 Completed [facility] HPV9 2018-06-11 00:00:00 Completed [facility] Rho (d) Immune Globulin 2018-06-11 00:00:00 Completed [facility] HPV9 2018-06-11 00:00:00 Completed [facility] Rho (d) Immune Globulin 2018-06-11 00:00:00 Completed [facility] HPV9 2018-06-11 00:00:00 Completed [facility] Rho (d) Immune Globulin 2018-06-11 00:00:00 Completed [facility] HPV9 2018-06-11 00:00:00 Completed [facility] Rho (d) Immune Globulin 2018-06-11 00:00:00 Completed [facility] HPV9 2018-06-11 00:00:00 Completed [facility] Rho (d) Immune Globulin 2018-06-11 00:00:00 Completed [facility] HPV9 2018-06-11 00:00:00 Completed [facility] Rho (d) Immune Globulin 2018-06-11 00:00:00 Completed [facility] HPV9 2018-06-11 00:00:00 Completed [facility] Rho (d) Immune Globulin 2018-06-11 00:00:00 Completed [facility] HPV9 2018-06-11 00:00:00 Completed [facility] Rho (d) Immune Globulin 2018-06-11 00:00:00 Completed [facility] HPV9 2018-06-11 00:00:00 Completed [facility] Rho (d) Immune Globulin 2018-06-11 00:00:00 Completed [facility] HPV9 2018-06-11 00:00:00 Completed [facility] Rho (d) Immune Globulin 2018-06-11 00:00:00 Completed [facility] HPV9 2018-06-11 00:00:00 Completed [facility] Rho (d) Immune Globulin 2018-06-11 00:00:00 Completed [facility] HPV9 2018-06-11 00:00:00 Completed [facility] Rho (d) Immune Globulin 2018-06-11 00:00:00 Completed [facility] HPV9 2018-06-11 00:00:00 Completed [facility] Rho (d) Immune Globulin 2018-06-11 00:00:00 Completed [facility] HPV9 2018-06-11 00:00:00 Completed [facility] Rho (d) Immune Globulin 2018-06-11 00:00:00 Completed [facility] HPV9 2018-06-11 00:00:00 Completed [facility] Rho (d) Immune Globulin 2018-06-11 00:00:00 Completed [facility] HPV9 2018-06-11 00:00:00 Completed [facility] Rho (d) Immune Globulin 2018-06-11 00:00:00 Completed [facility] HPV9 2018-06-11 00:00:00 Completed [facility] Rho (d) Immune Globulin 2018-06-11 00:00:00 Completed [facility] HPV9 2018-06-11 00:00:00 Completed [facility] Rho (d) Immune Globulin 2018-06-11 00:00:00 Completed [facility] HPV9 2018-06-11 00:00:00 Completed [facility] Rho (d) Immune Globulin 2018-06-11 00:00:00 Completed [facility] HPV9 2018-06-11 00:00:00 Completed [facility] Rho (d) Immune Globulin 2018-06-11 00:00:00 Completed [facility] HPV9 2018-06-11 00:00:00 Completed [facility] Rho (d) Immune Globulin 2018-06-11 00:00:00 Completed [facility] HPV9 2018-06-11 00:00:00 Completed [facility] Rho (d) Immune Globulin 2018-06-11 00:00:00 Completed [facility] HPV9 2018-06-11 00:00:00 Completed [facility] Rho (d) Immune Globulin 2018-06-11 00:00:00 Completed [facility] HPV9 2018-06-11 00:00:00 Completed [facility] Rho (d) Immune Globulin 2018-06-11 00:00:00 Completed [facility] HPV9 2018-06-11 00:00:00 Completed [facility] Rho (d) Immune Globulin 2018-06-11 00:00:00 Completed [facility] HPV9 2018-06-11 00:00:00 Completed [facility] Rho (d) Immune Globulin 2018-06-11 00:00:00 Completed [facility] HPV9 2018-06-11 00:00:00 Completed [facility] Rho (d) Immune Globulin 2018-06-11 00:00:00 Completed [facility] HPV9 2018-06-11 00:00:00 Completed [facility] Rho (d) Immune Globulin 2018-06-11 00:00:00 Completed [facility] HPV9 2018-06-11 00:00:00 Completed [facility] Rho (d) Immune Globulin 2018-06-11 00:00:00 Completed [facility] HPV9 2018-06-11 00:00:00 Completed [facility] Rho (d) Immune Globulin 2018-06-11 00:00:00 Completed [facility] HPV9 2018-06-11 00:00:00 Completed [facility] Rho (d) Immune Globulin 2018-06-11 00:00:00 Completed [facility] HPV9 2018-06-11 00:00:00 Completed [facility] Rho (d) Immune Globulin 2018-06-11 00:00:00 Completed [facility] HPV9 2018-06-11 00:00:00 Completed [facility] Rho (d) Immune Globulin 2018-06-11 00:00:00 Completed [facility] Tdap 2018-04-18 00:00:00 Completed [facility] Tdap 2018-04-18 00:00:00 Completed [facility] Tdap 2018-04-18 00:00:00 Completed [facility] Tdap 2018-04-18 00:00:00 Completed [facility] Tdap 2018-04-18 00:00:00 Completed [facility] Tdap 2018-04-18 00:00:00 Completed [facility] Tdap 2018-04-18 00:00:00 Completed [facility] Tdap 2018-04-18 00:00:00 Completed [facility] Tdap 2018-04-18 00:00:00 Completed [facility] Tdap 2018-04-18 00:00:00 Completed [facility] Tdap 2018-04-18 00:00:00 Completed [facility] Tdap 2018-04-18 00:00:00 Completed [facility] TDAP 2018-04-18 00:00:00 Completed [facility] TDAP 2018-04-18 00:00:00 Completed [facility] TDAP 2018-04-18 00:00:00 Completed [facility] TDAP 2018-04-18 00:00:00 Completed [facility] TDAP 2018-04-18 00:00:00 Completed [facility] TDAP 2018-04-18 00:00:00 Completed [facility] TDAP 2018-04-18 00:00:00 Completed [facility] TDAP 2018-04-18 00:00:00 Completed [facility] TDAP 2018-04-18 00:00:00 Completed [facility] TDAP 2018-04-18 00:00:00 Completed [facility] TDAP 2018-04-18 00:00:00 Completed [facility] TDAP 2018-04-18 00:00:00 Completed [facility] TDAP 2018-04-18 00:00:00 Completed [facility] TDAP 2018-04-18 00:00:00 Completed [facility] TDAP 2018-04-18 00:00:00 Completed [facility] TDAP 2018-04-18 00:00:00 Completed [facility] TDAP 2018-04-18 00:00:00 Completed [facility] TDAP 2018-04-18 00:00:00 Completed [facility] TDAP 2018-04-18 00:00:00 Completed [facility] TDAP 2018-04-18 00:00:00 Completed [facility] TDAP 2018-04-18 00:00:00 Completed [facility] TDAP 2018-04-18 00:00:00 Completed [facility] TDAP 2018-04-18 00:00:00 Completed [facility] TDAP 2018-04-18 00:00:00 Completed [facility] TDAP 2018-04-18 00:00:00 Completed [facility] TDAP 2018-04-18 00:00:00 Completed [facility] TDAP 2018-04-18 00:00:00 Completed [facility] TDAP 2018-04-18 00:00:00 Completed [facility] TDAP 2018-04-18 00:00:00 Completed [facility] TDAP 2018-04-18 00:00:00 Completed [facility] TDAP 2018-04-18 00:00:00 Completed [facility] TDAP 2018-04-18 00:00:00 Completed [facility] TDAP 2018-04-18 00:00:00 Completed [facility] TDAP 2018-04-18 00:00:00 Completed [facility] TDAP 2018-04-18 00:00:00 Completed [facility] TDAP 2018-04-18 00:00:00 Completed [facility] TDAP 2018-04-18 00:00:00 Completed [facility] TDAP 2018-04-18 00:00:00 Completed [facility] TDAP 2018-04-18 00:00:00 Completed [facility] TDAP 2018-04-18 00:00:00 Completed [facility] TDAP 2018-04-18 00:00:00 Completed [facility] TDAP 2018-04-18 00:00:00 Completed [facility] TDAP 2018-04-18 00:00:00 Completed [facility] TDAP 2018-04-18 00:00:00 Completed [facility] TDAP 2018-04-18 00:00:00 Completed [facility] TDAP 2018-04-18 00:00:00 Completed [facility] TDAP 2018-04-18 00:00:00 Completed [facility] TDAP 2018-04-18 00:00:00 Completed [facility] TDAP 2018-04-18 00:00:00 Completed [facility] TDAP 2018-04-18 00:00:00 Completed [facility] TDAP 2018-04-18 00:00:00 Completed [facility] TDAP 2018-04-18 00:00:00 Completed [facility] TDAP 2018-04-18 00:00:00 Completed [facility] TDAP 2018-04-18 00:00:00 Completed [facility] TDAP 2018-04-18 00:00:00 Completed [facility] TDAP 2018-04-18 00:00:00 Completed [facility] TDAP 2018-04-18 00:00:00 Completed [facility] TDAP 2018-04-18 00:00:00 Completed [facility] TDAP 2018-04-18 00:00:00 Completed [facility] TDAP 2018-04-18 00:00:00 Completed [facility] TDAP 2018-04-18 00:00:00 Completed [facility] TDAP 2018-04-18 00:00:00 Completed [facility] TDAP 2018-04-18 00:00:00 Completed [facility] TDAP 2018-04-18 00:00:00 Completed [facility] TDAP 2018-04-18 00:00:00 Completed [facility] TDAP 2018-04-18 00:00:00 Completed [facility] TDAP 2018-04-18 00:00:00 Completed [facility] TDAP 2018-04-18 00:00:00 Completed [facility] TDAP 2018-04-18 00:00:00 Completed [facility] TDAP 2018-04-18 00:00:00 Completed [facility] TDAP 2018-04-18 00:00:00 Completed [facility] TDAP 2018-04-18 00:00:00 Completed [facility] TDAP 2018-04-18 00:00:00 Completed [facility] TDAP 2018-04-18 00:00:00 Completed [facility] TDAP 2018-04-18 00:00:00 Completed [facility] TDAP 2018-04-18 00:00:00 Completed [facility] TDAP 2018-04-18 00:00:00 Completed [facility] TDAP 2018-04-18 00:00:00 Completed [facility] TDAP 2018-04-18 00:00:00 Completed [facility] TDAP 2018-04-18 00:00:00 Completed [facility] TDAP 2018-04-18 00:00:00 Completed [facility] TDAP 2018-04-18 00:00:00 Completed [facility] Tdap 2018-04-18 00:00:00 Completed [facility] Tdap 2018-04-18 00:00:00 Completed [facility] Tdap 2018-04-18 00:00:00 Completed [facility] Tdap 2018-04-18 00:00:00 Completed [facility] Tdap 2018-04-18 00:00:00 Completed [facility] Tdap 2018-04-18 00:00:00 Completed [facility] Tdap 2018-04-18 00:00:00 Completed [facility] Tdap 2018-04-18 00:00:00 Completed [facility] Tdap 2018-04-18 00:00:00 Completed [facility] Tdap 2018-04-18 00:00:00 Completed [facility] Tdap 2018-04-18 00:00:00 Completed [facility] Tdap 2018-04-18 00:00:00 Completed [facility] Tdap 2018-04-18 00:00:00 Completed [facility] Tdap 2018-04-18 00:00:00 Completed [facility] Tdap 2018-04-18 00:00:00 Completed [facility] Tdap 2018-04-18 00:00:00 Completed [facility] Tdap 2018-04-18 00:00:00 Completed [facility] Tdap 2018-04-18 00:00:00 Completed [facility] TDAP Unknown Completed [facility] HPV9 Unknown Completed [facility] Rho (d) Immune Globulin Unknown Completed [facility] HPV9 Unknown Completed [facility] Influenza Virus Vaccine Quad .5 mL IM 6+ MO (FLUZONE/FLULAVAL/F LUARIX) Unknown Completed [facility] TDAP Unknown Completed [facility] Rho (d) Immune Globulin Unknown Completed [facility] Rho (d) Immune Globulin Unknown Completed [facility] HPV9 Unknown Completed [facility] Influenza Virus Vaccine Quad .5 mL IM 6+ MO (FLUZONE/FLULAVAL/F LUARIX) Unknown Completed [facility] Vital Signs Vital Name Observation Time Observation Value Comments S ource Systolic blood pressure 2022-12-23 06:00:00 115 mm[Hg] [facility] Diastolic blood pressure 2022-12-23 06:00:00 77 mm[Hg] [facility] Heart rate 2022-12-23 06:00:00 64 /min [facility] Respiratory rate 2022-12-23 06:00:00 16 /min [facility] Oxygen saturation in Arterial blood by Pulse oximetry 2022-12-23 06:00:00 100 /min [facility] Body temperature 2022-12-23 05:20:00 36.33 Elida [facility] Body height 2022-12-23 05:20:00 167.6 cm [facility] Body weight 2022-12-23 05:20:00 80.876 kg [facility] BMI 2022-12-23 05:20:00 28.78 kg/m2 [facility] Systolic blood pressure 2022-04-02 19:43:00 112 mm[Hg] [facility] Diastolic blood pressure 2022-04-02 19:43:00 73 mm[Hg] [facility] Heart rate 2022-04-02 19:43:00 78 /min [facility] Body temperature 2022-04-02 19:43:00 36.89 Elida [facility] Respiratory rate 2022-04-02 19:43:00 18 /min [facility] Body weight 2022-04-02 19:43:00 82.373 kg [facility] Systolic blood pressure 2021-03-27 14:34:00 105 mm[Hg] [facility] Diastolic blood pressure 2021-03-27 14:34:00 68 mm[Hg] [facility] Heart rate 2021-03-27 14:34:00 130 /min [facility] Body temperature 2021-03-27 14:34:00 37.06 Elida [facility] Respiratory rate 2021-03-27 14:34:00 18 /min [facility] Body weight 2021-03-27 14:34:00 90.719 kg [facility] BMI 2021-03-27 14:34:00 32.28 kg/m2 [facility] Oxygen saturation in Arterial blood by Pulse oximetry 2021-03-27 14:34:00 98 /min [facility] Systolic blood pressure 2021-03-27 14:34:00 105 mm[Hg] [facility] Diastolic blood pressure 2021-03-27 14:34:00 68 mm[Hg] [facility] Heart rate 2021-03-27 14:34:00 130 /min [facility] Body temperature 2021-03-27 14:34:00 37.06 Elida [facility] Respiratory rate 2021-03-27 14:34:00 18 /min [facility] Body weight 2021-03-27 14:34:00 90.719 kg [facility] BMI 2021-03-27 14:34:00 32.28 kg/m2 [facility] Oxygen saturation in Arterial blood by Pulse oximetry 2021-03-27 14:34:00 98 /min [facility] Systolic blood pressure 2021-03-25 21:06:00 112 mm[Hg] [facility] Diastolic blood pressure 2021-03-25 21:06:00 65 mm[Hg] [facility] Heart rate 2021-03-25 21:06:00 106 /min [facility] Body temperature 2021-03-25 21:06:00 37.17 Elida [facility] Respiratory rate 2021-03-25 21:06:00 16 /min [facility] Body height 2021-03-25 21:06:00 167.6 cm [facility] Body weight 2021-03-25 21:06:00 88.996 kg [facility] BMI 2021-03-25 21:06:00 31.67 kg/m2 [facility] Systolic blood pressure 2021-03-25 21:06:00 112 mm[Hg] [facility] Diastolic blood pressure 2021-03-25 21:06:00 65 mm[Hg] [facility] Heart rate 2021-03-25 21:06:00 106 /min [facility] Body temperature 2021-03-25 21:06:00 37.17 Elida [facility] Respiratory rate 2021-03-25 21:06:00 16 /min [facility] Body height 2021-03-25 21:06:00 167.6 cm [facility] Body weight 2021-03-25 21:06:00 88.996 kg [facility] BMI 2021-03-25 21:06:00 31.67 kg/m2 [facility] Systolic blood pressure 2021-03-16 04:35:00 113 mm[Hg] [facility] Diastolic blood pressure 2021-03-16 04:35:00 58 mm[Hg] [facility] Heart rate 2021-03-16 04:35:00 93 /min [facility] Body temperature 2021-03-16 04:35:00 37.17 Elida [facility] Respiratory rate 2021-03-16 04:35:00 16 /min [facility] Oxygen saturation in Arterial blood by Pulse oximetry 2021-03-16 04:35:00 98 /min [facility] Body height 2021-03-16 03:51:00 167.6 cm [facility] Body weight 2021-03-16 03:51:00 86.183 kg [facility] BMI 2021-03-16 03:51:00 30.67 kg/m2 [facility] Systolic blood pressure 2021-03-16 04:35:00 113 mm[Hg] [facility] Diastolic blood pressure 2021-03-16 04:35:00 58 mm[Hg] [facility] Heart rate 2021-03-16 04:35:00 93 /min [facility] Body temperature 2021-03-16 04:35:00 37.17 Elida [facility] Respiratory rate 2021-03-16 04:35:00 16 /min [facility] Oxygen saturation in Arterial blood by Pulse oximetry 2021-03-16 04:35:00 98 /min [facility] Body height 2021-03-16 03:51:00 167.6 cm [facility] Body weight 2021-03-16 03:51:00 86.183 kg [facility] BMI 2021-03-16 03:51:00 30.67 kg/m2 [facility] Systolic blood pressure 2021-03-04 18:24:00 117 mm[Hg] [facility] Diastolic blood pressure 2021-03-04 18:24:00 73 mm[Hg] [facility] Heart rate 2021-03-04 18:24:00 99 /min [facility] Body temperature 2021-03-04 18:24:00 36.72 Elida [facility] Respiratory rate 2021-03-04 18:24:00 16 /min [facility] Body height 2021-03-04 18:24:00 167.6 cm [facility] Body weight 2021-03-04 18:24:00 88.111 kg [facility] BMI 2021-03-04 18:24:00 31.35 kg/m2 [facility] Systolic blood pressure 2021-03-04 18:24:00 117 mm[Hg] [facility] Diastolic blood pressure 2021-03-04 18:24:00 73 mm[Hg] [facility] Heart rate 2021-03-04 18:24:00 99 /min [facility] Body temperature 2021-03-04 18:24:00 36.72 Elida [facility] Respiratory rate 2021-03-04 18:24:00 16 /min [facility] Body height 2021-03-04 18:24:00 167.6 cm [facility] Body weight 2021-03-04 18:24:00 88.111 kg [facility] BMI 2021-03-04 18:24:00 31.35 kg/m2 [facility] Systolic blood pressure 2021-02-18 18:54:00 118 mm[Hg] [facility] Diastolic blood pressure 2021-02-18 18:54:00 72 mm[Hg] [facility] Heart rate 2021-02-18 18:54:00 86 /min [facility] Body temperature 2021-02-18 18:54:00 36.44 Eilda [facility] Respiratory rate 2021-02-18 18:54:00 16 /min [facility] Body height 2021-02-18 18:54:00 167.6 cm [facility] Body weight 2021-02-18 18:54:00 88.905 kg [facility] BMI 2021-02-18 18:54:00 31.64 kg/m2 [facility] Systolic blood pressure 2021-02-18 18:54:00 118 mm[Hg] [facility] Diastolic blood pressure 2021-02-18 18:54:00 72 mm[Hg] [facility] Heart rate 2021-02-18 18:54:00 86 /min [facility] Body temperature 2021-02-18 18:54:00 36.44 Elida [facility] Respiratory rate 2021-02-18 18:54:00 16 /min [facility] Body height 2021-02-18 18:54:00 167.6 cm [facility] Body weight 2021-02-18 18:54:00 88.905 kg [facility] BMI 2021-02-18 18:54:00 31.64 kg/m2 [facility] Systolic blood pressure 2021-02-11 18:38:00 105 mm[Hg] [place] [facility] Diastolic blood pressure 2021-02-11 18:38:00 61 mm[Hg] [facility] Heart rate 2021-02-11 18:38:00 82 /min [facility] Body temperature 2021-02-11 18:38:00 36.67 Elida [facility] Respiratory rate 2021-02-11 18:38:00 16 /min [facility] Body height 2021-02-11 18:38:00 167.6 cm [facility] Body weight 2021-02-11 18:38:00 89.903 kg [facility] BMI 2021-02-11 18:38:00 31.99 kg/m2 [facility] Systolic blood pressure 2021-02-04 18:18:00 110 mm[Hg] [facility] Diastolic blood pressure 2021-02-04 18:18:00 61 mm[Hg] [facility] Heart rate 2021-02-04 18:18:00 85 /min [facility] Body temperature 2021-02-04 18:18:00 37.39 Elida [facility] Respiratory rate 2021-02-04 18:18:00 16 /min [facility] Body height 2021-02-04 18:18:00 167.6 cm [facility] Body weight 2021-02-04 18:18:00 90.447 kg [facility] BMI 2021-02-04 18:18:00 32.18 kg/m2 [facility] Systolic blood pressure 2021-01-28 18:26:00 115 mm[Hg] [facility] Diastolic blood pressure 2021-01-28 18:26:00 69 mm[Hg] [facility] Heart rate 2021-01-28 18:26:00 93 /min [facility] Body temperature 2021-01-28 18:26:00 36.56 Elida [facility] Respiratory rate 2021-01-28 18:26:00 16 /min [facility] Body height 2021-01-28 18:26:00 167.6 cm [facility] Body weight 2021-01-28 18:26:00 89.529 kg [facility] BMI 2021-01-28 18:26:00 31.86 kg/m2 [facility] Systolic blood pressure 2021-01-22 18:50:00 110 mm[Hg] [facility] Diastolic blood pressure 2021-01-22 18:50:00 63 mm[Hg] [facility] Heart rate 2021-01-22 18:50:00 74 /min [facility] Body temperature 2021-01-22 18:50:00 37.28 Elida [facility] Respiratory rate 2021-01-22 18:50:00 16 /min [facility] Body height 2021-01-22 18:50:00 167.6 cm [facility] Body weight 2021-01-22 18:50:00 88.724 kg [facility] BMI 2021-01-22 18:50:00 31.57 kg/m2 [facility] Systolic blood pressure 2021-01-15 18:58:00 108 mm[Hg] [facility] Diastolic blood pressure 2021-01-15 18:58:00 74 mm[Hg] [facility] Heart rate 2021-01-15 18:58:00 100 /min [facility] Body temperature 2021-01-15 18:58:00 37.33 Elida [facility] Respiratory rate 2021-01-15 18:58:00 16 /min [facility] Body height 2021-01-15 18:58:00 167.6 cm [facility] Body weight 2021-01-15 18:58:00 89.177 kg [facility] BMI 2021-01-15 18:58:00 31.73 kg/m2 [facility] Systolic blood pressure 2021-01-07 19:01:00 97 mm[Hg] [facility] Diastolic blood pressure 2021-01-07 19:01:00 67 mm[Hg] [facility] Heart rate 2021-01-07 19:01:00 83 /min [facility] Body temperature 2021-01-07 19:01:00 36.83 Elida [facility] Respiratory rate 2021-01-07 19:01:00 16 /min [facility] Body height 2021-01-07 19:01:00 167.6 cm [facility] Body weight 2021-01-07 19:01:00 87.771 kg [facility] BMI 2021-01-07 19:01:00 31.23 kg/m2 [facility] Systolic blood pressure 2021-01-01 18:17:00 111 mm[Hg] [facility] Diastolic blood pressure 2021-01-01 18:17:00 55 mm[Hg] [facility] Heart rate 2021-01-01 18:17:00 103 /min [facility] Body temperature 2021-01-01 18:17:00 36.67 [facility] Respiratory rate 2021-01-01 18:17:00 24 /min [facility] Body height 2021-01-01 18:17:00 167.6 cm [facility] Body weight 2021-01-01 18:17:00 88.225 kg [facility] BMI 2021-01-01 18:17:00 31.39 kg/m2 [facility] Systolic blood pressure 2020-12-24 19:41:00 124 mm[Hg] [facility] Diastolic blood pressure 2020-12-24 19:41:00 77 mm[Hg] [facility] Heart rate 2020-12-24 19:41:00 93 /min [facility] Body temperature 2020-12-24 19:41:00 36.67 [facility] Respiratory rate 2020-12-24 19:41:00 16 /min [facility] Body height 2020-12-24 19:41:00 167.6 cm [facility] Body weight 2020-12-24 19:41:00 89.268 kg [facility] BMI 2020-12-24 19:41:00 31.76 kg/m2 [facility] Systolic blood pressure 2020-12-19 00:29:00 105 mm[Hg] [facility] Diastolic blood pressure 2020-12-19 00:29:00 42 mm[Hg] [facility] Heart rate 2020-12-19 00:29:00 65 /min [facility] Body temperature 2020-12-19 00:29:00 36.67 [facility] Respiratory rate 2020-12-19 00:29:00 18 /min [facility] Body height 2020-12-19 00:29:00 167.6 cm [facility] Body weight 2020-12-19 00:29:00 88.905 kg [facility] BMI 2020-12-19 00:29:00 31.64 kg/m2 [facility] Systolic blood pressure 2020-12-17 19:38:00 119 mm[Hg] [facility] Diastolic blood pressure 2020-12-17 19:38:00 64 mm[Hg] [facility] Heart rate 2020-12-17 19:38:00 79 /min [facility] Body temperature 2020-12-17 19:38:00 36.56 [facility] Respiratory rate 2020-12-17 19:38:00 16 /min [facility] Body height 2020-12-17 19:38:00 167.6 cm [facility] Body weight 2020-12-17 19:38:00 89.449 kg [facility] BMI 2020-12-17 19:38:00 31.83 kg/m2 [facility] Systolic blood pressure 2020-12-10 18:51:00 107 mm[Hg] [facility] Diastolic blood pressure 2020-12-10 18:51:00 63 mm[Hg] [facility] Heart rate 2020-12-10 18:51:00 62 /min [facility] Body temperature 2020-12-10 18:51:00 36.78 [facility] Respiratory rate 2020-12-10 18:51:00 16 /min [facility] Body height 2020-12-10 18:51:00 167.6 cm [facility] Body weight 2020-12-10 18:51:00 87.232 kg [facility] BMI 2020-12-10 18:51:00 31.04 kg/m2 [facility] Systolic blood pressure 2020-12-03 16:08:00 108 mm[Hg] [facility] Diastolic blood pressure 2020-12-03 16:08:00 63 mm[Hg] [facility] Heart rate 2020-12-03 16:08:00 90 /min [facility] Body temperature 2020-12-03 16:08:00 36.61 [facility] Respiratory rate 2020-12-03 16:08:00 18 /min [facility] Body height 2020-12-03 16:08:00 167.6 cm [facility] Body weight 2020-12-03 16:08:00 88.179 kg [facility] BMI 2020-12-03 16:08:00 31.38 kg/m2 [facility] Systolic blood pressure 2020-11-26 18:13:00 108 mm[Hg] [facility] Diastolic blood pressure 2020-11-26 18:13:00 59 mm[Hg] [facility] Heart rate 2020-11-26 18:13:00 72 /min [facility] Body temperature 2020-11-26 18:13:00 37 [facility] Respiratory rate 2020-11-26 18:13:00 16 /min [facility] Body height 2020-11-26 18:13:00 167.6 cm [facility] Body weight 2020-11-26 18:13:00 88.225 kg [facility] BMI 2020-11-26 18:13:00 31.39 kg/m2 [facility] Systolic blood pressure 2020-11-19 18:45:00 112 mm[Hg] [facility] Diastolic blood pressure 2020-11-19 18:45:00 63 mm[Hg] [facility] Heart rate 2020-11-19 18:45:00 61 /min [facility] 2020-11-19 18:45:00 36.28 [facility] Respiratory rate 2020-11-19 18:45:00 16 /min [facility] Body height 2020-11-19 18:45:00 167.6 cm [facility] Body weight 2020-11-19 18:45:00 88.14 kg [facility] BMI 2020-11-19 18:45:00 31.36 kg/m2 [facility] Systolic blood pressure 2020-11-12 18:58:00 118 mm[Hg] [facility] Diastolic blood pressure 2020-11-12 18:58:00 67 mm[Hg] [facility] Heart rate 2020-11-12 18:58:00 85 /min [facility] Body temperature 2020-11-12 18:58:00 36.72 [facility] Respiratory rate 2020-11-12 18:58:00 16 /min [facility] Body height 2020-11-12 18:58:00 167.6 cm [facility] Body weight 2020-11-12 18:58:00 88.622 kg [facility] BMI 2020-11-12 18:58:00 31.53 kg/m2 [facility] Systolic blood pressure 2020-10-15 20:07:00 109 mm[Hg] [facility] Diastolic blood pressure 2020-10-15 20:07:00 70 mm[Hg] [facility] Heart rate 2020-10-15 20:07:00 74 /min [facility] Body temperature 2020-10-15 20:07:00 36.72 [facility] Respiratory rate 2020-10-15 20:07:00 16 /min [facility] Body height 2020-10-15 20:07:00 167.6 cm [facility] Body weight 2020-10-15 20:07:00 84.823 kg [facility] BMI 2020-10-15 20:07:00 30.18 kg/m2 [facility] Systolic blood pressure 2020-09-17 21:57:00 103 mm[Hg] [facility] Diastolic blood pressure 2020-09-17 21:57:00 62 mm[Hg] [facility] Heart rate 2020-09-17 21:57:00 73 /min [facility] Body temperature 2020-09-17 21:57:00 37.11 [facility] Respiratory rate 2020-09-17 21:57:00 16 /min [facility] Body height 2020-09-17 21:57:00 167.6 cm [facility] Body weight 2020-09-17 21:57:00 85.531 kg [facility] BMI 2020-09-17 21:57:00 30.43 kg/m2 [facility] Systolic blood pressure 2020-08-20 19:03:00 119 mm[Hg] [facility] Diastolic blood pressure 2020-08-20 19:03:00 82 mm[Hg] [facility] Heart rate 2020-08-20 19:03:00 79 /min [facility] Body temperature 2020-08-20 19:03:00 36.72 [facility] Respiratory rate 2020-08-20 19:03:00 16 /min [facility] Body height 2020-08-20 19:03:00 167.6 cm [facility] Body weight 2020-08-20 19:03:00 87.204 kg [facility] BMI 2020-08-20 19:03:00 31.03 kg/m2 [facility] Systolic blood pressure 2020-06-04 20:48:00 124 mm[Hg] [facility] Diastolic blood pressure 2020-06-04 20:48:00 62 mm[Hg] [facility] Heart rate 2020-06-04 20:48:00 90 /min [facility] Body temperature 2020-06-04 20:48:00 36.17 [facility] Respiratory rate 2020-06-04 20:48:00 16 /min [facility] Body height 2020-06-04 20:48:00 167.6 cm [facility] Body weight 2020-06-04 20:48:00 85.276 kg [facility] BMI 2020-06-04 20:48:00 30.34 kg/m2 [facility] Systolic blood pressure 2020-04-01 21:05:00 130 mm[Hg] [facility] Diastolic blood pressure 2020-04-01 21:05:00 74 mm[Hg] [facility] Heart rate 2020-04-01 21:05:00 95 /min [facility] Body temperature 2020-04-01 21:05:00 37.5 [facility] Respiratory rate 2020-04-01 21:05:00 16 /min [facility] Body height 2020-04-01 21:05:00 167.6 cm [facility] Body weight 2020-04-01 21:05:00 86.75 kg [facility] BMI 2020-04-01 21:05:00 30.87 kg/m2 [facility] Systolic blood pressure 2020-03-22 05:00:00 105 mm[Hg] [facility] Diastolic blood pressure 2020-03-22 05:00:00 72 mm[Hg] [facility] Heart rate 2020-03-22 05:00:00 67 /min [facility] Respiratory rate 2020-03-22 05:00:00 18 /min [facility] Oxygen saturation in Arterial blood by Pulse oximetry 2020-03-22 04:00:00 99 /min [facility] Body temperature 2020-03-22 03:49:00 37 [facility] Body height 2020-03-22 03:49:00 167.6 cm [facility] Body weight 2020-03-22 03:49:00 86.183 kg [facility] BMI 2020-03-22 03:49:00 30.67 kg/m2 [facility] Systolic blood pressure 2020-02-26 23:57:00 110 mm[Hg] [facility] Diastolic blood pressure 2020-02-26 23:57:00 78 mm[Hg] [facility] Heart rate 2020-02-26 23:57:00 87 /min [facility] Respiratory rate 2020-02-26 23:57:00 18 /min [facility] Oxygen saturation in Arterial blood by Pulse oximetry 2020-02-26 23:57:00 100 /min [facility] Body temperature 2020-02-26 21:35:00 37 [facility] Body weight 2020-02-26 21:35:00 86.183 kg [facility] Systolic blood pressure 2019-10-05 21:05:00 129 mm[Hg] [facility] Diastolic blood pressure 2019-10-05 21:05:00 57 mm[Hg] [facility] Heart rate 2019-10-05 21:05:00 100 /min [facility] Body temperature 2019-10-05 21:05:00 36.56 [facility] Respiratory rate 2019-10-05 21:05:00 16 /min [facility] Body height 2019-10-05 21:05:00 167.6 cm [facility] Body weight 2019-10-05 21:05:00 86.694 kg [facility] BMI 2019-10-05 21:05:00 30.85 kg/m2 [facility] Systolic blood pressure 2019-09-20 20:30:00 118 mm[Hg] [facility] Diastolic blood pressure 2019-09-20 20:30:00 65 mm[Hg] [facility] Heart rate 2019-09-20 20:30:00 87 /min [facility] Body temperature 2019-09-20 20:30:00 36.28 [facility] Respiratory rate 2019-09-20 20:30:00 18 /min [facility] Body height 2019-09-20 20:30:00 167.6 cm [facility] Body weight 2019-09-20 20:30:00 87.176 kg [facility] BMI 2019-09-20 20:30:00 31.02 kg/m2 [facility] Systolic blood pressure 2019-09-18 20:23:00 123 mm[Hg] [facility] Diastolic blood pressure 2019-09-18 20:23:00 61 mm[Hg] [facility] Heart rate 2019-09-18 20:23:00 73 /min [facility] Body temperature 2019-09-18 20:23:00 36.61 [facility] Respiratory rate 2019-09-18 20:23:00 16 /min [facility] Body height 2019-09-18 20:23:00 167.6 cm [facility] Body weight 2019-09-18 20:23:00 86.24 kg [facility] BMI 2019-09-18 20:23:00 30.69 kg/m2 [facility] Systolic blood pressure 2019-04-24 15:56:00 99 mm[Hg] [facility] Diastolic blood pressure 2019-04-24 15:56:00 61 mm[Hg] [facility] Heart rate 2019-04-24 15:56:00 70 /min [facility] Body temperature 2019-04-24 15:56:00 36.72 [facility] Respiratory rate 2019-04-24 15:56:00 16 /min [facility] Body weight 2019-04-24 15:56:00 84 kg [facility] BMI 2019-04-24 15:56:00 29.89 kg/m2 [facility] Systolic blood pressure 2019-04-17 18:14:00 117 mm[Hg] [facility] Diastolic blood pressure 2019-04-17 18:14:00 61 mm[Hg] [facility] Heart rate 2019-04-17 18:14:00 74 /min [facility] Body temperature 2019-04-17 18:14:00 36.56 [facility] Respiratory rate 2019-04-17 18:14:00 16 /min [facility] Body height 2019-04-17 18:14:00 167.6 cm [facility] Body weight 2019-04-17 18:14:00 83.632 kg [facility] BMI 2019-04-17 18:14:00 29.76 kg/m2 [facility] Heart rate 2019-04-19 01:15:00 92 /min [facility] Oxygen saturation in Arterial blood by Pulse oximetry 2019-04-19 01:15:00 99 /min [facility] Systolic blood pressure 2019-04-19 00:43:00 112 mm[Hg] [facility] Diastolic blood pressure 2019-04-19 00:43:00 66 mm[Hg] [facility] Body temperature 2019-04-19 00:43:00 36.94 [facility] Respiratory rate 2019-04-19 00:43:00 18 /min [facility] Body height 2019-04-19 00:43:00 167.6 cm [facility] Body weight 2019-04-19 00:43:00 83.462 kg [facility] BMI 2019-04-19 00:43:00 29.70 kg/m2 [facility] Systolic blood pressure 2019-04-14 06:50:00 116 mm[Hg] [facility] Diastolic blood pressure 2019-04-14 06:50:00 65 mm[Hg] [facility] Heart rate 2019-04-14 06:50:00 90 /min [facility] Body temperature 2019-04-14 06:50:00 36.61 [facility] Respiratory rate 2019-04-14 06:50:00 18 /min [facility] Body height 2019-04-14 06:50:00 167.6 cm [facility] Body weight 2019-04-14 06:50:00 83.008 kg [facility] BMI 2019-04-14 06:50:00 29.54 kg/m2 [facility] Oxygen saturation in Arterial blood by Pulse oximetry 2019-04-14 06:50:00 100 /min [facility] Systolic blood pressure 2019-04-10 19:21:00 114 mm[Hg] [facility] Diastolic blood pressure 2019-04-10 19:21:00 57 mm[Hg] [facility] Heart rate 2019-04-10 19:21:00 93 /min [facility] Body temperature 2019-04-10 19:21:00 36.78 [facility] Respiratory rate 2019-04-10 19:21:00 16 /min [facility] Body height 2019-04-10 19:21:00 167.6 cm [facility] Body weight 2019-04-10 19:21:00 83.178 kg [facility] BMI 2019-04-10 19:21:00 29.60 kg/m2 [facility] Systolic blood pressure 2019-04-03 16:55:00 117 mm[Hg] [facility] Diastolic blood pressure 2019-04-03 16:55:00 65 mm[Hg] [facility] Heart rate 2019-04-03 16:55:00 79 /min [facility] Body temperature 2019-04-03 16:55:00 36.56 [facility] Respiratory rate 2019-04-03 16:55:00 16 /min [facility] Body height 2019-04-03 16:55:00 167.6 cm [facility] Body weight 2019-04-03 16:55:00 83.178 kg [facility] BMI 2019-04-03 16:55:00 29.60 kg/m2 [facility] Systolic blood pressure 2019-03-29 18:46:00 131 mm[Hg] [facility] Diastolic blood pressure 2019-03-29 18:46:00 77 mm[Hg] [facility] Heart rate 2019-03-29 18:46:00 94 /min [facility] Body temperature 2019-03-29 18:46:00 37.11 [facility] Respiratory rate 2019-03-29 18:46:00 16 /min [facility] Body height 2019-03-29 18:46:00 167.6 cm [facility] Body weight 2019-03-29 18:46:00 82.781 kg [facility] BMI 2019-03-29 18:46:00 29.46 kg/m2 [facility] Systolic blood pressure 2019-03-27 15:18:00 109 mm[Hg] [facility] Diastolic blood pressure 2019-03-27 15:18:00 56 mm[Hg] [facility] Heart rate 2019-03-27 15:18:00 83 /min [facility] Body temperature 2019-03-27 15:18:00 36.28 [facility] Respiratory rate 2019-03-27 15:18:00 16 /min [facility] Body height 2019-03-27 15:18:00 167.6 cm [facility] Body weight 2019-03-27 15:18:00 83.122 kg [facility] BMI 2019-03-27 15:18:00 29.58 kg/m2 [facility] Systolic blood pressure 2019-03-20 15:42:00 116 mm[Hg] [facility] Diastolic blood pressure 2019-03-20 15:42:00 55 mm[Hg] [facility] Heart rate 2019-03-20 15:42:00 76 /min [facility] Body temperature 2019-03-20 15:42:00 36.11 [facility] Respiratory rate 2019-03-20 15:42:00 16 /min [facility] Body height 2019-03-20 15:42:00 167.6 cm [facility] Body weight 2019-03-20 15:42:00 83.235 kg [facility] BMI 2019-03-20 15:42:00 29.62 kg/m2 [facility] Systolic blood pressure 2019-03-20 15:12:00 116 mm[Hg] [facility] Diastolic blood pressure 2019-03-20 15:12:00 55 mm[Hg] [facility] Heart rate 2019-03-20 15:12:00 76 /min [facility] Body temperature 2019-03-20 15:12:00 36.11 [facility] Respiratory rate 2019-03-20 15:12:00 16 /min [facility] Body height 2019-03-20 15:12:00 167.6 cm [facility] Body weight 2019-03-20 15:12:00 83.235 kg [facility] BMI 2019-03-20 15:12:00 29.62 kg/m2 [facility] Systolic blood pressure 2019-03-15 14:57:00 112 mm[Hg] [facility] Diastolic blood pressure 2019-03-15 14:57:00 59 mm[Hg] [facility] Heart rate 2019-03-15 14:57:00 66 /min [facility] Body temperature 2019-03-15 14:57:00 36.39 [facility] Respiratory rate 2019-03-15 14:57:00 18 /min [facility] Body height 2019-03-15 14:57:00 167.6 cm [facility] Body weight 2019-03-15 14:57:00 84.482 kg [facility] BMI 2019-03-15 14:57:00 30.06 kg/m2 [facility] Systolic blood pressure 2019-03-13 14:51:00 122 mm[Hg] [facility] Diastolic blood pressure 2019-03-13 14:51:00 65 mm[Hg] [facility] Heart rate 2019-03-13 14:51:00 90 /min [facility] Body temperature 2019-03-13 14:51:00 36.39 [facility] Respiratory rate 2019-03-13 14:51:00 16 /min [facility] Body height 2019-03-13 14:51:00 167.6 cm [facility] Body weight 2019-03-13 14:51:00 83.519 kg [facility] BMI 2019-03-13 14:51:00 29.72 kg/m2 [facility] Systolic blood pressure 2019-03-06 14:12:00 112 mm[Hg] [facility] Diastolic blood pressure 2019-03-06 14:12:00 52 mm[Hg] [facility] Heart rate 2019-03-06 14:12:00 83 /min [facility] Body temperature 2019-03-06 14:12:00 36.72 [facility] Respiratory rate 2019-03-06 14:12:00 16 /min [facility] Body height 2019-03-06 14:12:00 167.6 cm [facility] Body weight 2019-03-06 14:12:00 83.632 kg [facility] BMI 2019-03-06 14:12:00 29.76 kg/m2 [facility] Systolic blood pressure 2019-02-20 15:54:00 117 mm[Hg] [place] [facility] Diastolic blood pressure 2019-02-20 15:54:00 76 mm[Hg] [facility] Heart rate 2019-02-20 15:54:00 83 /min [facility] Body temperature 2019-02-20 15:54:00 36.39 [facility] Respiratory rate 2019-02-20 15:54:00 16 /min [facility] Body height 2019-02-20 15:54:00 167.6 cm [facility] Body weight 2019-02-20 15:54:00 81.364 kg [facility] BMI 2019-02-20 15:54:00 28.95 kg/m2 [facility] Procedures Procedure Date / Time Performed Performing Clinician Source POCT TEST 2022-12-23 05:31:00 Samir Baird [facility] LIPASE 2022-12-23 05:30:00 Samir Baird [facility] COMP. METABOLIC PANEL (47794) 2022-12-23 05:30:00 Samir Baird [facility] CBC WITH DIFF 2022-12-23 05:30:[address] [facility] URINALYSIS 2022-12-23 05:30:00 Samir Baird [facility] CONSENT/REFUSAL FOR DIAGNOSIS AND TREATMENT 2022-12-23 05:12:14 Doctor Unassigned, [place] [facility] POCT TEST 2022-04-02 19:44:00 Vicente Pavon [facility] ASSIGNMENT OF BENEFITS 2022-04-02 19:12:09 Docto r Unassigned, [place] [facility] CONSENT/REFUSAL FOR DIAGNOSIS AND TREATMENT 2021-03-27 14:24:33 Doctor Unassigned, [place] [facility] WOUND CULTURE 2021-03-25 22:12:00 [facility]FF 2021-03-25 21:07:00 Marilu Doran [facility] GROUP B STREPTOCOCCUS BY PCR 2021-03-25 21:07:00 Marilu Doran [facility] SARS-COV-2 IGG 2021-03-25 21:07:00 [facility] COVID INTERPRETATION 2021-03-25 21:07:00 Marilu Doran [facility] NOTICE OF PRIVACY PRACTICES 2021-03-16 02:55:00 Doctor Unassigned, [place] [facility] CONSENT/REFUSAL FOR DIAGNOSIS AND TREATMENT 2021-03-16 02:54:44 Doctor Unassigned, [place] [facility] POCT URINALYSIS 2021-03-04 18:26:00 Molina Pavon [facility] POCT URINALYSIS 2021-02-18 18:55:00 Molina Pavon [facility] POCT URINALYSIS 2021-02-04 18:19:00 Molina Pavon [facility] HB ABO GROUPING 2021-01-28 18:45:00 Molina Pavon [facility] TDAP VACCINE, >11 YRS, IM 2021-01-28 18:41:00 Molina Pavon [facility] POCT URINALYSIS 2021-01-28 18:28:00 Molina Pavon [facility] HIV 1/2 AG-AB WITH REFLEX 2021-01-28 18:21:00 Molina Pavon [facility] GALV ONLY - SYPHILIS IGG/IGM 2021-01-28 18:21:00 Molina Pavon [facility] GLUCOSE 1 HOUR POST PRANDIAL 2021-01-15 20:04:00 Molina Pavon [facility] CBC WITH DIFF 2021-01-15 20:04:00 Molina Pavon [facility] POCT URINALYSIS 2021-01-07 19:04:00 Molina Pavon [facility] CONSENT/REFUSAL FOR DIAGNOSIS AND TREATMENT 2020-12-18 23:48:00 Doctor Unassigned, [place] [facility] POCT URINALYSIS 2020-12-10 19:37:00 Molina Pavon [facility] POCT URINALYSIS 2020-11-12 18:59:00 Molina Pavon [facility] POCT URINALYSIS 2020-10-15 20:09:00 Molina Pavon [facility] MEDICATION CORRESPONDENCE 2020-10-09 06:01:00 Do ctor Unassigned, [place] [facility] EXTERNAL PROVIDER RECORDS 2020-09-29 06:01:00 Do ctor Unassigned, [place] [facility] POCT URINALYSIS 2020-09-17 22:04:00 Molina Pavon [facility] GC & CHLAMYDIA AMPLIFIED ASSAY 2020-08-20 20:23:00 Molina Pavon [facility] GLUCOSE 1 HOUR POST PRANDIAL 2020-08-20 20:06:00 Molina Pavon [facility] CBC WITH DIFF 2020-08-20 20:06:00 Molina Pavon [facility] RUBELLA SCREEN IGG 2020-08-20 20:06:00 Maged Pavon [facility] VZV ANTIBODY SCREEN 2020-08-20 20:06:00 Vicente Pavon [facility] HEPATITIS B SURFACE ANTIGEN 2020-08-20 20:06:00 Molina Pavon [facility] HB ABO GROUPING 2020-08-20 20:06:00 Molina Pavon [facility] HIV 1/2 AG-AB WITH REFLEX 2020-08-20 20:06:00 Molina Pavon [facility] GALV ONLY - SYPHILIS IGG/IGM 2020-08-20 20:06:00 Molina Pavon [facility] SARS-COV-2 IGG 2020-08-20 20:06:00 Molina Pvaon [facility] LAB ONLY COVID INTERPRETATION 2020-08-20 20:06:00 Molina Pavon [facility] POCT TEST 2020-08-20 18:57:00 Vicente Pavon [facility] POCT URINALYSIS W/O SPECIFIC GRAVITY 2020-08-20 18:57:00 Molina Pavon [facility] FLU VACC ([id number]), 6+ MONTHS, IM, QUAD 2020-06-04 20:53:58 Molina Pavon [facility] POCT TEST 2020-03-22 04:03:00 Candi Samaniego [facility] COMP. METABOLIC PANEL (47321) 2020-03-22 04:02:00 Lenin Samaniego [facility] CBC WITH DIFF 2020-03-22 04:02:00 Lenin Samaniego [facility] URINALYSIS 2020-03-22 04:02:00 [facility] CONSENT/REFUSAL FOR DIAGNOSIS AND TREATMENT 2020-03-22 03:39:54 Doctor Unassigned, [place] [facility] US PELVIS COMPLETE WITH TRANSVAGINAL 2020-02-26 22:53:36 Evangelist oBnner [facility] COMP. METABOLIC PANEL (37136) 2020-02-26 22:12:00 Evangelist Bonner [facility] CBC WITH DIFF 2020-02-26 22:12:00 Evangelist Bonner [facility] URINALYSIS 2020-02-26 22:12:00 Evangelist [facility] POCT TEST 2020-02-26 22:12:00 Evangelist Bonner [facility] ASSIGNMENT OF BENEFITS 2020-02-26 21:29:30 Docto r Unassigned, [place] [facility] POCT TEST 2019-10-05 21:24:00 Vicente Pavon [facility] DISCLOSURE AND CONSENT, MEDICAL AND SURGICAL PROCEDURES 2019-10-05 06:01:00 Doctor Unassigned, [place] [facility] POCT TEST 2019-09-20 20:34:00 Vicente Pavon [facility] GARDASIL 9 (HPV 9V) VACCINE 2019-09-18 21:05:38 Molina Pavon [facility] ASSIGNMENT OF BENEFITS 2019-04-19 00:26:57 Docto r Unassigned, [place] [facility] NOTICE OF PRIVACY PRACTICES 2019-04-19 00:26:18 Doctor Unassigned, [place] [facility] CONSENT/REFUSAL FOR DIAGNOSIS AND TREATMENT 2019-04-19 00:25:59 Doctor Unassigned, [place] [facility] URINE CULTURE 2019-04-17 18:50:00 Molina Pavon [facility] ANTI-D R/O PANEL 2019-04-17 18:46:00 Beatriz Pavon [facility] WORKUP, BLOOD BANK 2019-04-17 18:46:00 Molina Pavon [facility] POCT URINALYSIS 2019-04-17 18:15:00 Molina Pavon [facility] ASSIGNMENT OF BENEFITS 2019-04-14 06:35:28 Docto r Unassigned, [place] [facility] NOTICE OF PRIVACY PRACTICES 2019-04-14 06:34:52 Doctor Unassigned, [place] [facility] GALV ONLY - SYPHILIS IGG/IGM 2019-03-29 20:14:00 Marilu Doran [facility] HIV 1/2 AG-AB WITH REFLEX 2019-03-29 19:53:00 Marilu Doran [facility] TDAP VACCINE, >11 YRS, IM 2019-03-29 19:23:41 Marilu Doran [facility] POCT URINALYSIS 2019-03-29 18:46:00 Molina Pavon [facility] POCT URINALYSIS 2019-03-15 14:59:00 Molina Pavon [facility] Encounters Start Date/Time End Date/Time Encounter Type Admission Type Attending [facility] Care Facility Care Department Encounter ID Source 2021-06-08 16:54:59 Emergency [facility] [id number] [facility] 2021-06-08 13:57:39 Emergency [facility] [id number] [facility] 2021-06-07 19:02:11 Outpatient P [facility] [id number] [facility] 2021-06-07 19:01:53 Outpatient P [facility] [id number] [facility] 2021-06-05 12:38:55 Emergency [facility] [id number] [facility] 2021-06-05 08:01:28 Emergency [facility] [id number] [facility] 2023-01-14 10:45:00 2023-01-14 10:45:00 Outpatient R CHARI JAVED [facility] [id number] [facility] 2022-12-24 07:39:00 2022-12-24 07:39:00 Outpatient Renu Jackson [facility] [id number] [facility] are [facility] 2022-12-23 00:21:00 2022-12-23 01:49:00 Emergency X SAMIR BAIRD [facility] ERT [id number] [facility] 2022-12-23 00:21:00 2022-12-23 01:49:00 Emergency FátimasavannahmeshaSamir S [facility] 1.840.114 350.1.13.10 4.2.7.2.686 [id number] [facility] 2022-12-23 00:00:00 2022-12-23 00:00:00 Orders Only Doctor Unassigned, [place] [facility] 1.840.114 350.1.13.10 4.2.7.2.686 [id number] [facility] 2022-04-08 13:45:00 2022-04-08 13:45:00 Outpatient R [facility] [id number] [facility] 2022-04-02 13:30:00 2022-04-02 13:45:00 Nurse Visit Visit, Ang-Rmchp Nurse Molina Pavon [facility] SUPERINTENDENT BUILDING [facility] MATERNAL & CHILD [facility] 1.840.114 350.1.13.10 4.2.7.2.686 [id number] [facility] 2022-04-02 13:30:00 2022-04-02 13:30:00 Outpatient R MOLINA PAVON [facility] [id number] [facility] 2022-04-02 00:00:00 2022-04-02 00:00:00 Orders Only Doctor Unassigned, [place] [facility] 1.840.114 350.1.13.10 4.2.7.2.686 [id number] [facility] 2021-05-28 13:45:00 2021-05-28 13:45:00 Outpatient R [facility] [id number] [facility] 2021-05-19 09:15:00 2021-05-19 09:15:00 Outpatient R AMANDA BAHENA [facility] [id number] [facility] 2021-04-14 00:00:00 2021-04-14 00:00:00 Telephone Manjula Soler [facility] 1.840.114 350.1.13.10 4.2.7.2.686 [id number] [facility] 2021-04-07 21:59:00 2021-04-09 13:51:00 Inpatient P HERON HADLEY [facility] [id number] [facility] 2021-04-07 21:59:00 2021-04-09 13:51:00 Hospital Encounter Heron Hadley [facility] 1.84.114 350.1.13.10 4.2.7.2.686 [id number] [facility] 2021-04-09 13:00:00 2021-04-09 13:00:00 Outpatient R MOLINA PAVON [facility] [id number] [facility] 2021-04-07 22:51:00 2021-04-08 06:50:00 Anesthesia Event Travon WyattAlessandro Styles [facility] 1.0.114 350.1.13.10 4.2.7.2.686 [id number] [facility] 2021-04-01 08:45:00 2021-04-01 08:45:00 Outpatient MOLINA RUSSO [facility] [id number] [facility] 2021-03-29 00:00:00 2021-03-29 00:00:00 Telephone Molina Pavon [facility] SUPERINTENDENT BUILDING [facility] MATERNAL & [facility] 1.0.114 350.1.13.10 4.2.7.2.686 [id number] [facility] 2021-03-27 09:34:00 2021-03-27 10:19:[address] [facility] 1.840.114 350.1.13.10 4.2.7.2.686 [id number] 2021-03-27 09:34:00 2021-03-27 10:19:[address] [facility] 1.2840.114 350.1.13.10 4.2.7.2.686 [id number] [facility] 2021-03-27 00:00:00 2021-03-27 00:00:00 Orders Only Doctor Unassigned, [place] [facility] 1.0.114 350.1.13.10 4.2.7.2.686 [id number] 2021-03-27 00:00:00 2021-03-27 00:00:00 Orders Only Doctor Unassigned, [place] [facility] 1.2.114 350.1.13.10 4.2.7.2.686 [id number] [facility] 2021-03-25 15:32:35 2021-03-25 16:37:00 Routine Visit Risk, Ang-Rmchp-N p/High Marilu Doran [facility] SUPERINTENDENT BUILDING [facility] MATERNAL & CHILD [facility] 1..114 350.1.13.10 4.2.7.2.686 [id number] 107 [id number] [facility] 2021-03-25 15:32:35 2021-03-25 16:37:00 Routine Visit Risk, Ang-Rmchp-N p/[facility] SUPERINTENDENT BUILDING [facility] & CHILD [facility] 1.114 350.1.13.10 4.2.7.2.686 [id number] [facility] 2021-03-25 15:30:00 2021-03-25 15:30:00 Outpatient R [facility] [id number] [facility] 2021-03-18 13:30:00 2021-03-18 13:30:00 Outpatient R MOLINA PAVON [facility] [id number] [facility] 2021-03-15 22:55:00 2021-03-16 00:07:[address] [facility] 1.0.114 350.1.13.10 4.2.7.2.686 [id number] 2021-03-15 22:55:00 2021-03-16 00:07:00 Emergency Cholo Burrell F [facility] 1.2840.114 350.1.13.10 4.2.7.2.686 [id number] [facility] 2021-03-11 13:30:00 2021-03-11 13:30:00 Outpatient R [facility] [id number] [facility] 2021-03-04 13:16:42 2021-03-04 13:49:49 Routine Visit Molina Pavon [facility] SUPERINTENDENT BUILDING [facility] MATERNAL & CHILD [facility] 1.2.840.114 350.1.13.10 4.2.7.2.686 [id number] 2021-03-04 13:16:42 2021-03-04 13:49:49 Routine Visit Molina Pavon [facility] SUPERINTENDENT BUILDING [facility] & CHILD [facility] 1.2840.114 350.1.13.10 4.2.7.2.686 [id number] [facility] 2021-03-04 13:15:00 2021-03-04 13:15:00 Outpatient R MOLINA PAVON [facility] [id number] [facility] 2021-03-02 14:30:00 2021-03-02 14:30:00 Outpatient R [facility] [id number] [facility] 2021-02-25 12:45:00 2021-02-25 12:45:00 Outpatient R [facility] [id number] [facility] 2021-02-18 13:28:35 2021-02-18 14:29:08 Routine Visit Molina Pavon [facility] SUPERINTENDENT BUILDING [facility] & CHILD [facility] 1.2840.114 350.1.13.10 4.2.7.2.686 [id number] 2021-02-18 13:28:35 2021-02-18 14:29:08 Routine Visit Molina Pavon [facility] SUPERINTENDENT BUILDING [facility] & CHILD [facility] 1.2.840.114 350.1.13.10 4.2.7.2.686 [id number] [facility] 2021-02-18 13:15:00 2021-02-18 13:15:00 Outpatient R MOLINA PAVON [facility] [id number] [facility] 2021-02-11 15:45:00 2021-02-11 15:45:00 Outpatient R MOLINA PAVON [facility] [id number] [facility] 2021-02-11 13:10:22 2021-02-11 13:25:22 Nurse Visit Visit, Ang-Rmchp Nurse Molina Pavon [facility] SUPERINTENDENT BUILDING [facility] & CHILD [facility] 1..840.114 350.1.13.10 4.2.7.2.686 [id number] [facility] 2021-02-11 08:30:00 2021-02-11 08:30:00 Outpatient R [facility] [id number] [facility] 2021-02-04 12:50:04 2021-02-04 13:47:28 Routine Visit Molina Pavon [facility] SUPERINTENDENT BUILDING [facility] & CHILD [facility] 1..840.114 350.1.13.10 4.2.7.2.686 [id number] [facility] 2021-02-04 12:45:00 2021-02-04 12:45:00 Outpatient R [facility] [id number] [facility] 2021-01-28 13:07:23 2021-01-28 14:00:04 Routine Visit Molina Pavon [facility] SUPERINTENDENT BUILDING [facility] & CHILD [facility] ..840.114 350.1.13.10 4.2.7.2.686 [id number] [facility] 2021-01-28 13:00:00 2021-01-28 13:00:00 Outpatient R MOLINA PAVON [facility] [id number] [facility] 2021-01-22 13:32:06 2021-01-22 13:56:46 Nurse Visit Visit, Molina Aiken [facility] SUPERINTENDENT BUILDING [facility] & CHILD [facility] 1.2.840.114 350.1.13.10 4.2.7.2.686 [id number] [facility] 2021-01-22 13:30:00 2021-01-22 13:30:00 Outpatient R [facility] [id number] [facility] 2021-01-16 00:00:00 2021-01-16 00:00:00 Telephone Molina Pavon [facility] SUPERINTENDENT BUILDING [facility] & CHILD [facility] 1..840.114 350.1.13.10 4.2.7.2.686 [id number] 107 [id number] [facility] 2021-01-15 13:44:54 2021-01-15 14:08:48 Nurse Visit Visit, Molina Aiken [facility] 1..840.114 350.1.13.10 4.2.7.2.686 [id number] [facility] 2021-01-15 13:30:00 2021-01-15 13:30:00 Outpatient R MOLINA PAVON [facility] [id number] [facility] 2021-01-14 09:00:00 2021-01-14 09:00:00 Outpatient R [facility] [id number] [facility] 2021-01-14 00:00:00 2021-01-14 00:00:00 Telephone Molina Pavon [facility] SUPERINTENDENT BUILDING [facility] CHILD [facility] 1..840.114 350.1.13.10 4.2.7.2.686 [id number] [facility] 2021-01-07 13:50:51 2021-01-07 14:21:33 Routine Visit Molina Pavon [facility] SUPERINTENDENT BUILDING [facility] & CHILD [facility] 1..840.114 350.1.13.10 4.2.7.2.686 [id number] [facility] 2021-01-07 14:00:00 2021-01-07 14:00:00 Outpatient R MOLINA PAVON [facility] [id number] [facility] 2021-01-01 13:08:36 2021-01-01 13:37:19 Nurse Visit Visit, Molina Aiken [facility] 1..840.114 350.1.13.10 4.2.7.2.686 [id number] [facility] 2021-01-01 13:30:00 2021-01-01 13:30:00 Outpatient R [facility] [id number] [facility] 2020-12-31 13:30:00 2020-12-31 13:30:00 Outpatient R [facility] [id number] [facility] 2020-12-24 14:21:35 2020-12-24 14:59:58 Nurse Visit Visit, Molina Aiken [facility] 1..840.114 350.1.13.10 4.2.7.2.686 [id number] [facility] 2020-12-24 13:00:00 2020-12-24 13:00:00 Outpatient R [facility] [id number] [facility] 2020-12-18 18:50:00 2020-12-18 20:20:00 Hospital Encounter Evangelist Clark [facility] 1..840.114 350.1.13.10 4.2.7.2.686 [id number] [facility] 2020-12-18 00:00:00 2020-12-18 00:00:00 Telephone Molina Pavon [facility] SUPERINTENDENT BUILDING [facility] CHILD [facility] 1.2.840.114 350.1.13.10 4.2.7.2.686 [id number] [facility] 2020-12-18 00:00:00 2020-12-18 00:00:00 Orders Only Doctor Unassigned, [place] [facility] 1.2.840.114 350.1.13.10 4.2.7.2.686 [id number] [facility] 2020-12-17 13:44:33 2020-12-17 14:05:24 Nurse Visit Visit, TayoRmchp Nurse Molina Pavon [facility] SUPERINTENDENT BUILDING [facility] CHILD [facility] 1.2840.114 350.1.13.10 4.2.7.2.686 [id number] [facility] 2020-12-17 13:10:05 2020-12-17 13:40:05 Stamp Collector Visit Ultrasound, Gerardo Lua [facility] SUPERINTENDENT BUILDING [facility] CHILD [facility] 1.2.840.114 350.1.13.10 4.2.7.2.686 [id number] [facility] 2020-12-17 10:30:00 2020-12-17 10:30:00 Outpatient R MOLINA PAVON [facility] [id number] [facility] 2020-12-17 00:00:00 2020-12-17 00:00:00 Abstract Molina Pavon [facility] SUPERINTENDENT BUILDING [facility] CHILD [facility] 1.2.840.114 350.1.13.10 4.2.7.2.686 [id number] [facility] 2020-12-10 13:44:46 2020-12-10 14:32:39 Routine Visit Molina Pavon [facility] 1.2.840.114 350.1.13.10 4.2.7.2.686 [id number] [facility] 2020-12-10 14:15:00 2020-12-10 14:15:00 Outpatient R MOLINA PAVON [facility] [id number] [facility] 2020-12-10 13:01:03 2020-12-10 13:31:03 Stamp Collector Visit Ultrasound, Gerardo Lua Shannon M [facility] & CHILD [facility] 1..840.114 350.1.13.10 4.2.7.2.686 [id number] [facility] 2020-12-03 10:42:41 2020-12-03 12:12:49 Stamp Collector Visit Ultrasound, Gerardo Lua Shannon M [facility] 1..840.114 350.1.13.10 4.2.7.2.686 [id number] [facility] 2020-12-03 10:45:00 2020-12-03 10:45:00 Outpatient GERARDO CEJA [facility] [id number] [facility] 2020-12-03 10:22:01 2020-12-03 10:42:50 Nurse Visit Visit, TayoRmchp Nurse Molina Pavon [facility] 1..840.114 350.1.13.10 4.2.7.2.686 [id number] [facility] 2020-12-03 00:00:00 2020-12-03 00:00:00 Abstract Molina Pavon [facility] SUPERINTENDENT BUILDING [facility] & CHILD [facility] 1.2840.114 350.1.13.10 4.2.7.2.686 [id number] [facility] 2020-11-26 13:20:09 2020-11-26 13:50:09 Stamp Collector Visit Ultrasound, Gerardo Lua [facility] SUPERINTENDENT BUILDING [facility] & CHILD [facility] 1.2840.114 350.1.13.10 4.2.7.2.686 [id number] [facility] 2020-11-26 12:53:08 2020-11-26 13:19:50 Nurse Visit Visit, Molina Aiken [facility] SUPERINTENDENT BUILDING [facility] CHILD [facility] 1.2840.114 350.1.13.10 4.2.7.2.686 [id number] [facility] 2020-11-26 12:45:00 2020-11-26 12:45:00 Outpatient R MOLINA PAVON [facility] [id number] [facility] 2020-11-26 00:00:00 2020-11-26 00:00:00 Abstract Molina Pavon [facility] SUPERINTENDENT BUILDING [facility] CHILD [facility] 1.2840.114 350.1.13.10 4.2.7.2.686 [id number] [facility] 2020-11-19 13:24:06 2020-11-19 13:52:49 Nurse Visit Visit, Molina Aiken [facility] SUPERINTENDENT BUILDING [facility] CHILD [facility] 1.2840.114 350.1.13.10 4.2.7.2.686 [id number] [facility] 2020-11-19 13:03:14 2020-11-19 13:33:14 Stamp Collector Visit Ultrasound, Gerardo Lua George R [facility] SUPERINTENDENT BUILDING [facility] MATERNAL & CHILD [facility] 1.2840.114 350.1.13.10 4.2.7.2.686 [id number] [facility] 2020-11-19 13:30:00 2020-11-19 13:30:00 Outpatient R [facility] [id number] [facility] 2020-11-19 00:00:00 2020-11-19 00:00:00 Abstract Molina Pavon [facility] SUPERINTENDENT BUILDING [facility] & CHILD [facility] 1.2840.114 350.1.13.10 4.2.7.2.686 [id number] [facility] 2020-11-14 00:00:00 2020-11-14 00:00:00 Abstract Molina Pavon [facility] SUPERINTENDENT BUILDING [facility] CHILD [facility] 1.2840.114 350.1.13.10 4.2.7.2.686 [id number] [facility] 2020-11-12 13:46:03 2020-11-12 15:02:34 Routine Visit Molina Pavon [facility] SUPERINTENDENT BUILDING [facility] CHILD [facility] 1.2840.114 350.1.13.10 4.2.7.2.686 [id number] [facility] 2020-11-12 14:00:00 2020-11-12 14:00:00 Outpatient R MOLINA PAVON [facility] [id number] [facility] 2020-11-12 13:12:59 2020-11-12 13:42:59 Stamp Collector Visit Ultrasound, Gerardo Lua Gay [facility] SUPERINTENDENT BUILDING [facility] MATERNAL & CHILD [facility] 1.2.840.114 350.1.13.10 4.2.7.2.686 [id number] [facility] 2020-11-05 12:57:18 2020-11-05 13:27:18 Stamp Collector Visit Ultrasound, Gerardo Lua [facility] SUPERINTENDENT BUILDING [facility] & CHILD [facility] 1.2.840.114 350.1.13.10 4.2.7.2.686 [id number] [facility] 2020-11-05 13:00:00 2020-11-05 13:00:00 Outpatient P [facility] [id number] [facility] 2020-11-05 00:00:00 2020-11-05 00:00:00 Abstract Molina Pavon [facility] [employer] BUILDING [facility] 1.2.840.114 350.1.13.10 4.2.7.2.686 [id number] [facility] 2020-10-28 00:00:00 2020-10-28 00:00:00 Patient Outreach Rigo Petit [facility] 1.2.840.114 350.1.13.10 4.2.7.2.686 [id number] [facility] 2020-10-15 13:53:52 2020-10-15 14:39:37 Routine Visit Molina Pavon [facility] [employer] [facility] 1.2.840.114 350.1.13.10 4.2.7.2.686 [id number] [facility] 2020-10-15 14:00:00 2020-10-15 14:00:00 Outpatient R MOLINA PAVON [facility] [id number] [facility] 2020-10-10 00:00:00 2020-10-10 00:00:00 Abstract Molina Pavon [facility] [employer] BUILDING [facility] 1.2.840.114 350.1.13.10 4.2.7.2.686 [id number] [facility] 2020-10-09 00:00:00 2020-10-09 00:00:00 Orders Only Doctor Unassigned, [place] [facility] 1.2.840.114 350.1.13.10 4.2.7.2.686 [id number] [facility] 2020-10-08 15:03:35 2020-10-08 15:48:35 Stamp Collector [facility] 1, [facility] Fátima Oconnell [facility] [employer]ENT BUILDING [facility] 1.2.840.114 350.1.13.10 4.2.7.2.686 [id number] [facility] 2020-10-08 15:03:49 2020-10-08 15:43:00 Stamp Collector Visit Lab, [facility] Tennille Humphrey [facility] SUPERINTENDENT BUILDING [facility] MATERNAL & CHILD [facility]ALTH [facility] 1.2.840.114 350.1.13.10 4.2.7.2.686 [id number] [facility] 2020-10-08 14:00:00 2020-10-08 14:00:00 Outpatient P [facility] [id number] [facility] 2020-10-06 00:00:00 2020-10-06 00:00:00 Telephone Molina Pavon [facility] SUPERINTENDENT BUILDING [facility] MATERNAL & CHILD [facility]ALTH [facility] 1.2.840.114 350.1.13.10 4.2.7.2.686 [id number] 107 [id number] [facility] 2020-09-29 00:00:00 2020-09-29 00:00:00 Orders Only Doctor Unassigned, [place] [facility] 1.2.840.114 350.1.13.10 4.2.7.2.686 [id number] [facility] 2020-09-26 00:00:00 2020-09-26 00:00:00 Patient Secure Msg Doctor Unassigned, [place] [facility] 1..114 350.1.13.10 4.2.7.2.686 [id number] [facility] 2020-09-25 00:00:00 2020-09-25 00:00:00 Telephone Molina Pavon [facility] SUPERINTENDENT BUILDING [facility] MATERNAL & CHILD [facility] 1..114 350.1.13.10 4.2.7.2.686 [id number] 107 [id number] [facility] 2020-09-24 15:00:00 2020-09-24 15:00:00 Outpatient R MOLINA PAVON [facility] [id number] [facility] 2020-09-18 00:00:00 2020-09-18 00:00:00 Telephone Molina Pavon [facility] SUPERINTENDENT BUILDING [facility] & CHILD [facility] 1..114 350.1.13.10 4.2.7.2.686 [id number] [facility] 2020-09-17 16:00:00 2020-09-17 16:00:00 Outpatient R MOLINA PAVON [facility] [id number] [facility] 2020-09-17 15:44:41 2020-09-17 15:59:41 Routine Visit Molina Pavon [facility] SUPERINTENDENT BUILDING [facility] & CHILD [facility] 1..114 350.1.13.10 4.2.7.2.686 [id number] 107 [id number] [facility] 2020-08-20 12:55:28 2020-08-20 14:19:34 Initial Visit Molina Pavon [facility] SUPERINTENDENT BUILDING [facility] & CHILD [facility] 1..114 350.1.13.10 4.2.7.2.686 [id number] 107 [id number] [facility] 2020-08-20 12:45:00 2020-08-20 12:45:00 Outpatient R [facility] [id number] [facility] 2020-06-04 15:42:24 2020-06-04 16:35:24 Office Visit Molina Pavon [facility] SUPERINTENDENT BUILDING [facility] MATERNAL & CHILD [facility] 1.2.840.114 350.1.13.10 4.2.7.2.686 [id number] 107 [id number] [facility] 2020-06-04 16:00:00 2020-06-04 16:00:00 Outpatient R MOLINA PAVON [facility] [id number] [facility] 2020-04-01 15:55:34 2020-04-01 16:41:33 Office Visit Bella Blanco [facility] SUPERINTENDENT BUILDING [facility] & CHILD [facility] 1..840.114 350.1.13.10 4.2.7.2.686 [id number] 107 [id number] [facility] 2020-04-01 15:45:00 2020-04-01 15:45:00 Outpatient R BELLA BLANCO [facility] [id number] [facility] 2020-03-24 00:00:00 2020-03-24 00:00:00 Telephone Lenin Samaniego [facility] 1.2.840.114 350.1.13.10 4.2.7.2.686 [id number] [facility] 2020-03-21 22:44:00 2020-03-22 01:28:00 Emergency Lenin Samaniego [facility] 1.2.840.114 350.1.13.10 4.2.7.2.686 [id number] [facility] 2020-02-26 16:39:27 2020-02-26 18:59:00 Emergency Evangelist Bonner R [facility] 1..114 350.1.13.10 4.2.7.2.686 [id number] [facility] 2020-02-26 00:00:00 2020-02-26 00:00:00 Orders Only Doctor Unassigned, [place] [facility] 1.0.114 350.1.13.10 4.2.7.2.686 [id number] [facility] 2020-02-07 13:00:00 2020-02-07 13:00:00 Outpatient R MOLINA PAVON [facility] [id number] [facility] 2020-01-10 00:00:00 2020-01-10 00:00:00 Telephone Molina Pavon [facility] SUPERINTENDENT BUILDING [facility] & CHILD [facility] 1..114 350.1.13.10 4.2.7.2.686 [id number] 107 [id number] [facility] 2020-01-07 08:30:00 2020-01-07 08:30:00 Outpatient R MOLINA PAVON [facility] [id number] [facility] 2019-12-12 00:00:00 2019-12-12 00:00:00 Telephone Molina Pavon [facility] SUPERINTENDENT BUILDING [facility] & CHILD [facility] 1..114 350.1.13.10 4.2.7.2.686 [id number] [facility] 2019-11-16 15:00:00 2019-11-16 15:00:00 Outpatient R MOLINA PAVON [facility] [id number] [facility] 2019-10-26 00:00:00 2019-10-26 00:00:00 Telephone Molina Pavon [facility] SUPERINTENDENT BUILDING [facility] & CHILD [facility] 1.0.114 350.1.13.10 4.2.7.2.686 [id number] [facility] 2019-10-05 14:55:55 2019-10-05 15:52:08 Office Visit Molina Pavon [facility] SUPERINTENDENT BUILDING [facility] & CHILD [facility] 1.2.840.114 350.1.13.10 4.2.7.2.686 [id number] [facility] 2019-10-05 15:00:00 2019-10-05 15:00:00 Outpatient R MOLINA PAVON [facility] [id number] [facility] 2019-10-05 00:00:00 2019-10-05 00:00:00 Orders Only Doctor Unassigned, [place] [facility] 1.2.840.114 350.1.13.10 4.2.7.2.686 [id number] [facility] 2019-09-20 14:11:23 2019-09-20 15:38:56 Office Visit Rodrigoanazoraida Molina C [facility] SUPERINTENDENT BUILDING [facility] CHILD [facility] 1.2.840.114 350.1.13.10 4.2.7.2.686 [id number] 107 [id number] [facility] 2019-09-18 14:05:15 2019-09-18 14:49:01 Nurse Visit Visit, Daryn-Rmp Nurse Molina Pavon [facility] 1.2.840.114 350.1.13.10 4.2.7.2.686 [id number] [facility] 2019-04-27 00:00:00 2019-04-27 00:00:00 Abstract Molina Pavon [facility] SUPERINTENDENT BUILDING [facility] CHILD [facility] 1.2.840.114 350.1.13.10 4.2.7.2.686 [id number] 107 [id number] [facility] 2019-04-24 10:40:27 2019-04-24 11:05:53 Nurse Visit Visit, Daryn-Rmchp Nurse Fátima Oconnell Damilola C [facility] SUPERINTENDENT BUILDING [facility] & CHILD [facility] 1.2.840.114 350.1.13.10 4.2.7.2.686 [id number] 107 [id number] [facility] 2019-04-24 10:06:08 2019-04-24 10:51:08 Stamp Collector Visit Ultrasound, Fátima Reeder [facility] SUPERINTENDENT BUILDING [facility] & CHILD [facility] 1.2.840.114 350.1.13.10 4.2.7.2.686 [id number] [facility] 2019-04-17 13:01:05 2019-04-24 08:40:10 Routine Visit Molina Pavon [facility] SUPERINTENDENT BUILDING [facility] CHILD [facility] 1.2.840.114 350.1.13.10 4.2.7.2.686 [id number] 107 [id number] [facility] 2019-04-18 19:24:00 2019-04-18 20:30:00 [facility] 1.2.840.114 350.1.13.10 4.2.7.2.686 [id number] [facility] 2019-04-14 01:31:00 2019-04-14 02:40:00 Hospital Encounter Phuc [facility] 1.2.840.114 350.1.13.10 4.2.7.2.686 [id number] [facility] 2019-04-10 14:01:50 2019-04-10 14:41:50 Nurse Visit Visit, Daryn-Rmchp Nurse Molina Pavon [facility] SUPERINTENDENT BUILDING [facility] CHILD [facility] 1.2.840.114 350.1.13.10 4.2.7.2.686 [id number] 107 [id number] [facility] 2019-04-03 11:47:37 2019-04-03 12:00:15 Nurse Visit Visit, Molina Aiken [facility] SUPERINTENDENT BUILDING [facility] MATERNAL & CHILD [facility] 1.2.840.114 350.1.13.10 4.2.7.2.686 [id number] 107 [id number] [facility] 2019-03-29 13:37:34 2019-03-29 15:04:21 Routine Visit , Arvind-Maurice p/High Marilu Doran [facility] SUPERINTENDENT BUILDING [facility] & CHILD [facility] 1.2.840.114 350.1.13.10 4.2.7.2.686 [id number] 107 [id number] [facility] 2019-03-27 10:09:07 2019-03-27 10:24:12 Nurse Visit Visit, Molina Aiken [facility] SUPERINTENDENT BUILDING [facility] & CHILD [facility] 1.2.840.114 350.1.13.10 4.2.7.2.686 [id number] 107 [id number] [facility] 2019-03-20 10:34:37 2019-03-20 11:11:26 Routine Visit Amanda Bahena [facility] SUPERINTENDENT BUILDING [facility] & CHILD [facility] 1.2.840.114 350.1.13.10 4.2.7.2.686 [id number] 107 [id number] [facility] 2019-03-20 10:02:19 2019-03-20 10:37:28 Nurse Visit Visit, Molina Aiken [facility] SUPERINTENDENT BUILDING [facility] MATERNAL & CHILD [facility] 1.2.840.114 350.1.13.10 4.2.7.2.686 [id number] 107 [id number] [facility] 2019-03-15 09:37:58 2019-03-15 10:18:32 Routine Visit Faculty, Molina Rutherford [facility] SUPERINTENDENT BUILDING [facility] & CHILD [facility] 1.2.840.114 350.1.13.10 4.2.7.2.686 [id number] [facility] 2019-03-13 09:35:59 2019-03-13 10:07:45 Nurse Visit Visit, Molina Aikne [facility] 1.2.840.114 350.1.13.10 4.2.7.2.686 [id number] 107 [id number] [facility] 2019-03-06 09:03:54 2019-03-06 09:49:10 Nurse Visit Visit, Molina Aiken [facility] CHILD [facility] 1.2.840.114 350.1.13.10 4.2.7.2.686 [id number] 107 [id number] [facility] 2019-02-20 10:45:20 2019-03-06 09:40:49 Routine Visit Molina Pavon [facility] 1.2.840.114 350.1.13.10 4.2.7.2.686 [id number] 107 [id number] [facility] Results Test Description Test Time Test Comments Results Result Co mments Source BASIC METABOLIC [id number] 09:28:00* Test Item Value Reference Range Interpretation Comme nts SODIUM (test code = NA) 137 mmol/L 135-145 N POTASSIUM (test code = K) 3.6 mmol/L 3.6-5.0 N CHLORIDE (test code = CL) 103 mmol/L 101-111 N CARBON DIOXIDE (test code = CO2) 25 mmol/L 21-31 N GLUCOSE (test code = GLU) 89 mg/dl 70-100 N BLOOD UREA NITROGEN (test code = BUN) 13 mg/dl 6-20 N GLOMERULAR FILTRATION RATE (test code = GFR) >=60 max estimate >60 The Glomerular Filtration Rate is a calculated parameterbased on serum Creatinine, patient age and sex. GFR valuesless than 60 mL/min/1.73 square meters are indicative ofChronic Kidney Disease. Values less than 15 mL/min/1.73square meters indicate Kidney failure. The calculation forGFR is based on the CKD-EPI (202) calculation. This formulais race indifferent and is the recommended formula for GFRby the National Kidney Foundation for Adults.The GFR will not calculate if the sex is unknown or if thepatient's age is <18 years. CREATININE (test code = CREAT) 0.80 mg/dL 0.44-1.03 N CALCIUM (test code = CA) 9.9 mg/dL 8.5-10.5 N INDEX HEMOLYSIS (test code = HEMINDEX) 0 Index/DL See_Comment [Automated messa ge] The system which generated this result transmitted reference range: 1 NORMAL. The reference range was not used to interpret this result as normal/abnormal. INDEX ICTERIC (test code = ICTINDEX) 1 Index/DL See_Comment [Automated messa ge] The system which generated this result transmitted reference range: 1 NORMAL. The reference range was not used to interpret this result as normal/abnormal. INDEX LIPEMIA (test code = LIPINDEX) 0 Index/DL See_Comment [Automated messa ge] The system which generated this result transmitted reference range: 1 NORMAL. The reference range was not used to interpret this result as normal/abnormal. HCG SERUM [id number] 09:03:00* Test Item Value Reference Range Interpretation Comme nts HCG SERUM QUAL (test code = HCGQL) NEGATIVE NEGATIVE This is a qu alitative screening test.The quantitative Bhcg may be helpful.Weakly positive results should be repeated in 48 hours. CBC W/AUTO [id number] 08:47:00* Test Item Value Reference Range Interpretation Comme nts WHITE BLOOD CELL (test code = WBC) 5.9 x10 3/uL 3.2-11.5 N RED BLOOD CELL (test code = RBC) 4.56 x10(6)/m 3.70-5.10 N HEMOGLOBIN (test code = HGB) 12.1 g/dL 12.0-15.0 N HEMATOCRIT (test code = HCT) 38.1 % 35.7-44.8 N MEAN CELL VOLUME (test code = MCV) 84 fL 80-100 N MEAN CELL HGB (test code = MCH) 26.5 pg 26.2-33.8 N MEAN CELL HGB CONCENTRATION (test code = MCHC) 31.8 g/dL 30.0-34.0 N RED CELL DISTRIBUTION WIDTH (test code = RDW) 15.0 % 11.3-14.5 H PLATELET COUNT (test code = PLT) 311 x10 3/uL 130-408 N MEAN PLATELET VOLUME (test c ode = MPV) 9.4 fL 8.6-12.6 N NEUTROPHIL % (test code = NT%) 55.6 % 40.0-70.0 N LYMPHOCYTE % (test code = LY%) 31.8 % 20-40 N MONOCYTE % (test code = MO%) 8.5 % 1-10 N EOSINOPHIL % (test code = EO%) 2.9 % 0.0-5.0 N BASOPHIL % (test code = BA%) 0.9 % 0.0-1.0 N NUCLEATED RBC % (test code = NRBC%) 0.0 % 0.0-0.9 N NEUTROPHIL # (test code = NT#) 3.3 x10 3/uL 1.6-7.2 N LYMPHOCYTE # (test code = LY#) 1.87 x10 3/uL 1.1-2.7 N MONOCYTE # (test code = MO#) 0.5 x10 3/uL 0.3-0.8 N EOSINOPHIL # (test code = EO#) 0.2 x10 3/uL 0.0-0.5 N IMMATURE GRANULOCYTE % (test code = IG%) 0.3 % 0.0-2.0 N BASOPHIL # (test code = BA#) 0.1 x10 3/uL 0.0-0.1 N Complete Metabolic [id number] 05:54:09* Test Item Value Reference Range Interpretation Comme nts NA (test code = 9748148854) 141 mmol/L 135-145 K (test code = 7866131466) 3.9 mmol/L 3.5-5.0 CL (test code = 1263756859) 103 mmol/L 98-108 CO2 TOTAL (test code = 2452546867) 28 mmol/L 23-31 AGAP (test code = 6574363204) 10 2-16 BUN (test code = 1452824228) 13 mg/dL 7-23 GLUCOSE (test code = 2978442725) 95 mg/dL 70-110 CREATININE (test code = 0148978482) 0.81 mg/dL 0.50-1.04 TOTAL BILI (test code = 4591919012) 0.3 mg/dL 0.1-1.1 CALCIUM (test code = 4253361525) 9.3 mg/dL 8.6-10.6 T PROTEIN (test code = 8228760420) 8.0 g/dL 6.3-8.2 ALBUMIN (test code = 6801229973) 4.9 g/dL 3.5-5.0 ALK PHOS (test code = 2438463010) 38 U/L 34-122 ALTv (test code = 1742-6) 17 U/L 5-35 AST(SGOT) (test code = 8641394077) 20 U/L 13-40 eGFR (test code = 7344494505) 88.4 mL/min/1.73m2 BRIDGET (test code = BRIDGET) Association of [...] or urine or abnormalities in imaging tests). [facility] [id number] 05:54:09* Test Item Value Reference Range Interpretation Comme nts LIPASE (test code = 8700313767) 170 U/L 0-220 Lab Interpretation (test cod e = 72958-8) Normal [facility] with [id number] 05:41:47* Test Item Value Reference Range Interpretation Comme nts WBC (test code = 6690-2) 5.83 See_Comment [Automated Relaboratea ZipZap] The system which generated this result transmitted reference range: 4.30 - 11.10 10*3/?L. The reference range was not used to interpret this result as normal/abnormal. RBC (test code = 789-8) 4.46 See_Comment [Automated Relaboratea ZipZap] The system which generated this result transmitted reference range: 3.93 - 5.25 10*6/?L. The reference range was not used to interpret this result as normal/abnormal. HGB (test code = 718-7) 11.8 g/dL 11.6-15.0 HCT (test code = 4544-3) 37.1 % 35.7-45.2 MCV (test code = 787-2) 83.2 fL 80.6-95.5 MCH (test code = 785-6) 26.5 pg 25.9-32.8 MCHC (test code = 786-4) 31.8 g/dL 31.6-35.1 RDW-SD (test code = 04483-7) 45.6 fL 39.0-49.9 RDW-CV (test code = 788-0) 15.1 % 12.0-15.5 PLT (test code = 777-3) 316 See_Comment [Automated Relaboratea ZipZap] The system which generated this result transmitted reference range: 166 - 358 10*3/?L. The reference range was not used to interpret this result as normal/abnormal. MPV (test code = 42959-7) 9.3 fL 9.5-12.9 L NRBC/100 WBC (test code = 6062158754) 0.0 See_Comment [Automated me ssage] The system which generated this result transmitted reference range: 0.0 - 10.0 /100 WBCs. The reference range was not used to interpret this result as normal/abnormal. NRBC x10^3 (test code = 4089495065) See_Comment [Automated messa ge] The system which generated this result transmitted reference range: 10*3/?L. The reference range was not used to interpret this result as normal/abnormal. GRAN MAT (NEUT) % (test code = 770-8) 43.9 % IMM GRAN % (test code = 9375813262) 0.20 % LYMPH % (test code = 736-9) 40.7 % MONO % (test code = 5905-5) 10.6 % EOS % (test code = 713-8) 3.6 % BASO % (test code = 706-2) 1.0 % GRAN MAT x10^3(ANC) (test code = 7816407312) 2.56 10*3/uL 1.88-7.09 IMM GRAN x10^3 (test code = 8137346483) 0.00-0.06 LYMPH x10^3 (test code = 731-0) 2.37 10*3/uL 1.32-3.29 MONO x10^3 (test code = 742-7) 0.62 10*3/uL 0.33-0.92 EOS x10^3 (test code = 711-2) 0.21 10*3/uL 0.03-0.39 BASO x10^3 (test code = 704-7) 0.06 10*3/uL 0.01-0.07 Lab Interpretation (test code = 77741-1) Abnormal [facility] [id number] 05:31:00* Test Item Value Reference Range Interpretation Comme nts POCT PREG (test code = 1605) Negative On board controls acceptable with C Line (test code = 3574) Yes POCT PREG LOT # (test code = 3575) [id number] POCT PREG TEST DATE ( test code = 3576) 2024-03-15 Lab Interpretation (test cod e = 23573-2) [id number] 19:44:00* Test Item Value Reference Range Interpretation Comme nts POCT PREG (test code = 1605) Negative On board controls acceptable with C Line (test code = 3574) Yes POCT PREG LOT # (test code = 3575) POCT PREG TEST DATE ( test code = 3576) [facility] STREPTOCOCCUS BY [id number] 17:05:28* Test Item Value Reference Range Interpretation Comme nts Group B Streptococcus by PCR (test code = 28063-1) Positive Negative A Lab Interpretation (test cod e = 55329-2) Abnormal [facility] COVID [id number] 21:22:56COVID DMT InterpretationInterpretation/Recommendation:Molecular NAAT Tests for Active Infection with the SARS-CoV-2 Virus:This patient has not been currently tested at [facility] for an active infection with the SARS-CoV-2 [...] variants to which the patient is exposed. Interpretation Result Comments:These interpretation comments are based upon all COVID-19 testing the patient has had at [facility], including molecular NAAT testing (more commonly known as PCRtesting and Rapid ID Now testing) and antibody testing. It does not take into account any testing that a patient has had outside of the [facility] medical record. [facility] LABORATORY SERVICESCOVID ResultsCoV-2 IgG (no units) ? ? Date ? Value ? 03/25/2021 ? Negative ? 08/20/2020 ? Negative ? ? ? [facility]ORAT[facility] SERVICESUnNorth[facility] SystemRS-COV-2 IGG 2021-03-26 05:50:07* Test Item Value Reference Range Interpretation Comme nts CoV-2 IgG (test code = 83301-9) Negative Negative Negative result does not rule out acute SARS-CoV-2 infection. Clinical correlation as well as molecular diagnostic test are recommended to rule out acute infection if clinically indicated. BRIDGET (test code = BRIDGET) The CoV-2 antibody test should not be used for screening of donated blood. This test has been approved by FDA for emergency use. Lab Interpretation (test code = 87008-0) Normal [facility] Hospital[facility] WITH [id number] 05:04:06* Test Item Value Reference Range Interpretation Comme nts WBC (test code = 6690-2) See_Comment [Automated Relaboratea ge] The system which generated this result transmitted reference range: 4.30 - 11.10 10*3/?L. The reference range was not used to interpret this result as normal/abnormal. RBC (test code = 789-8) See_Comment L [Automated Relaboratea ge] The system which generated this result transmitted reference range: 3.93 - 5.25 10*6/?L. The reference range was not used to interpret this result as normal/abnormal. HGB (test code = 718-7) 9.2 g/dL 11.6-15.0 L HCT (test code = 4544-3) 28.6 % 35.7-45.2 L MCV (test code = 787-2) 79.9 fL 80.6-95.5 L MCH (test code = 785-6) 25.7 pg 25.9-32.8 L MCHC (test code = 786-4) 32.2 g/dL 31.6-35.1 RDW-SD (test code = 70534-8) 39.3 fL 39.0-49.9 RDW-CV (test code = 788-0) 13.6 % 12.0-15.5 PLT (test code = 777-3) See_Comment [Automated Relaboratea ge] The system which generated this result transmitted reference range: 166 - 358 10*3/?L. The reference range was not used to interpret this result as normal/abnormal. MPV (test code = 07170-8) 9.4 fL 9.5-12.9 L NRBC/100 WBC (test code = 0290765140) See_Comment [Automated FileThis ssage] The system which generated this result transmitted reference range: 0.0 - 10.0 /100 WBCs. The reference range was not used to interpret this result as normal/abnormal. NRBC x10^3 (test code = 4746875947) <0.01 See_Comment [Automated Relaboratea ge] The system which generated this result transmitted reference range: 10*3/?L. The reference range was not used to interpret this result as normal/abnormal. GRAN MAT (NEUT) % (test code = 770-8) 74.5 % IMM GRAN % (test code = 4793629609) 0.70 % LYMPH % (test code = 736-9) 15.3 % MONO % (test code = 5905-5) 8.8 % EOS % (test code = 713-8) 0.5 % BASO % (test code = 706-2) 0.2 % GRAN MAT x10^3(ANC) (test code = 7688503272) 6.09 10*3/uL 1.88-7.09 IMM GRAN x10^3 (test code = [id number]) 0.06 10*3/uL 0.00-0.06 LYMPH x10^3 (test code = 731-0) 1.25 10*3/uL 1.32-3.29 L MONO x10^3 (test code = 742-7) 0.72 10*3/uL 0.33-0.92 EOS x10^3 (test code = 711-2) 0.04 10*3/uL 0.03-0.39 BASO x10^3 (test code = 704-7) <0.03 0.01-0.07 Lab Interpretation (test code = 73998-7) Abnormal [facility] URINALYSIS W SPECIFIC [id number] 18:26:00* Test Item Value Reference Range Interpretation Comme nts POCT U SP GRAV (test code = 3255) . 1.005-1.025 POCT PH U (test code = 3254) . 5-8 POCT U LEUK EST (test code = 3263) . Negative - N egative POCT U NIT (test code = 3262) . Negative - Negati ve POCT U PROT (test code = 3259) 1+ Negative - Negat farhat POCT U GLU (test code = 3256) Neg Negative - Negati ve POCT U KETONE (test code = 3258) . Negative - Neg ative POCT U UROBILI (test code = 3260) . 0.2-1 POCT U BILI (test code = 3261) . Negative - Negat farhat POCT U BLD (test code = 3257) . Negative - Negati ve POCT U COLOR (test code = 3266) POCT U APPEAR (test code = 3267) [facility] URINALYSIS W SPECIFIC [id number] 18:55:00* Test Item Value Reference Range Interpretation Comme nts POCT U SP GRAV (test code = 3255) . 1.005-1.025 POCT PH U (test code = 3254) . 5-8 POCT U LEUK EST (test code = 3263) . Negative - N egative POCT U NIT (test code = 3262) . Negative - Negati ve POCT U PROT (test code = 3259) Trace Negative - Negat farhat POCT U GLU (test code = 3256) Neg Negative - Negati ve POCT U KETONE (test code = 3258) . Negative - Neg ative POCT U UROBILI (test code = 3260) . 0.2-1 POCT U BILI (test code = 3261) . Negative - Negat farhat POCT U BLD (test code = 3257) . Negative - Negati ve POCT U COLOR (test code = 3266) POCT U APPEAR (test code = 3267) [facility] URINALYSIS W SPECIFIC [id number] 18:55:00* Test Item Value Reference Range Interpretation Comme nts POCT U SP GRAV (test code = 3255) . 1.005-1.025 POCT PH U (test code = 3254) . 5-8 POCT U LEUK EST (test code = 3263) . Negative - N egative POCT U NIT (test code = 3262) . Negative - Negati ve POCT U PROT (test code = 3259) Trace Negative - Negat farhat POCT U GLU (test code = 3256) Neg Negative - Negati ve POCT U KETONE (test code = 3258) . Negative - Neg ative POCT U UROBILI (test code = 3260) . 0.2-1 POCT U BILI (test code = 3261) . Negative - Negat farhat POCT U BLD (test code = 3257) . Negative - Negati ve POCT U COLOR (test code = 3266) POCT U APPEAR (test code = 3267) [facility] URINALYSIS W SPECIFIC [id number] 18:19:00* Test Item Value Reference Range Interpretation Comme nts POCT U SP GRAV (test code = 3255) . 1.005-1.025 POCT PH U (test code = 3254) 6 mg/dl 5-8 POCT U LEUK EST (test code = 3263) neg Negative - Negative POCT U NIT (test code = 3262) neg Negative - Negati ve POCT U PROT (test code = 3259) trace Negative - Negat farhat POCT U GLU (test code = 3256) neg Negative - Negati ve POCT U KETONE (test code = 3258) neg Negative - Neg ative POCT U UROBILI (test code = 3260) . 0.2-1 POCT U BILI (test code = 3261) . Negative - Negat farhat POCT U BLD (test code = 3257) neg Negative - Negati ve POCT U COLOR (test code = 3266) POCT U APPEAR (test code = 3267) [facility] [id number] 14:13:27* Test Item Value Reference Range Interpretation Comme nts Syphilis IgG/IgM (test code = 49385-6) Non-reactive Non-reactive BRIDGET (test code = BRIDGET) Non-reactive - No serologic evidence of T. pallidum infection. Cannot exclude incubating or early syphilis. Submit a second specimen in 2-4 weeks if syphilis is clinically suspected. Equivocal - Further testing to follow. Reactive - Further testing to follow. Lab Interpretation (test code = 53438-0) [facility] WITH [id number] 06:30:45* Test Item Value Reference Range Interpretation Comme nts HIV Semi-quantitative (test code = 79946-1) Negative Negative BRIDGET (test code = BRIDGET) Non-reactive for HIV-1 antigen and HIV-1/HIV-2 antibodies. ?No laboratory evidence of HIV infection. ?Repeat in 2-4 weeks if acute HIV infection is suspected. [facility], [facility] [id number] 04:17:21 * Test Item Value Reference Range Interpretation Comme nts ABO & RH (test code = 20) B NEGATIVE Performed at [facility] Laboratory Services - [facility] Blood [place] [id number] Free: [phone] No. [id number] IAT (test code = 1185) Negative Performed at [facility] Laboratory Services - [facility] Blood [place] [id number] Free: [phone] No. [id number] [facility] [id number] 18:28:00* Test Item Value Reference Range Interpretation Comme nts POCT U SP GRAV (test code = 3255) . 1.005-1.025 POCT PH U (test code = 3254) . 5-8 POCT U LEUK EST (test code = 3263) . Negative - N egative POCT U NIT (test code = 3262) . Negative - Negati ve POCT U PROT (test code = 3259) Trace Negative - Negat farhat POCT U GLU (test code = 3256) Neg Negative - Negati ve POCT U KETONE (test code = 3258) . Negative - Neg ative POCT U UROBILI (test code = 3260) . 0.2-1 POCT U BILI (test code = 3261) . Negative - Negat farhat POCT U BLD (test code = 3257) . Negative - Negati ve POCT U COLOR (test code = 3266) POCT U APPEAR (test code = 3267) [facility] [id number] 06:46:48* Test Item Value Reference Range Interpretation Comme nts GLUC 1 HR (test code = 3551689618) 106 mg/dL 120-170 L Lab Interpretation (test cod e = 69969-7) Abnormal [facility] Hospital[facility] with [id number] 05:55:05* Test Item Value Reference Range Interpretation Comme nts WBC (test code = 6690-2) See_Comment [Automated messa ge] The system which generated this result transmitted reference range: 4.30 - 11.10 10*3/?L. The reference range was not used to interpret this result as normal/abnormal. RBC (test code = 789-8) See_Comment L [Automated messa ge] The system which generated this result transmitted reference range: 3.93 - 5.25 10*6/?L. The reference range was not used to interpret this result as normal/abnormal. HGB (test code = 718-7) 10.4 g/dL 11.6-15.0 L HCT (test code = 4544-3) 31.2 % 35.7-45.2 L MCV (test code = 787-2) 86.4 fL 80.6-95.5 MCH (test code = 785-6) 28.8 pg 25.9-32.8 MCHC (test code = 786-4) 33.3 g/dL 31.6-35.1 RDW-SD (test code = 48544-1) 42.4 fL 39.0-49.9 RDW-CV (test code = 788-0) 13.5 % 12.0-15.5 PLT (test code = 777-3) See_Comment [Automated messa ge] The system which generated this result transmitted reference range: 166 - 358 10*3/?L. The reference range was not used to interpret this result as normal/abnormal. MPV (test code = 53804-0) 9.8 fL 9.5-12.9 NRBC/100 WBC (test code = 9451055575) See_Comment [Automated FileThis ssage] The system which generated this result transmitted reference range: 0.0 - 10.0 /100 WBCs. The reference range was not used to interpret this result as normal/abnormal. NRBC x10^3 (test code = 4224238443) <0.01 See_Comment [Automated messa ge] The system which generated this result transmitted reference range: 10*3/?L. The reference range was not used to interpret this result as normal/abnormal. GRAN MAT (NEUT) % (test code = 770-8) 77.2 % IMM GRAN % (test code = 7873012898) 0.40 % LYMPH % (test code = 736-9) 12.6 % MONO % (test code = 5905-5) 8.2 % EOS % (test code = 713-8) 1.2 % BASO % (test code = 706-2) 0.4 % GRAN MAT x10^3(ANC) (test code = 9561952023) 6.19 10*3/uL 1.88-7.09 IMM GRAN x10^3 (test code = 3690293278) 0.03 10*3/uL 0.00-0.06 LYMPH x10^3 (test code = 731-0) 1.01 10*3/uL 1.32-3.29 L MONO x10^3 (test code = 742-7) 0.66 10*3/uL 0.33-0.92 EOS x10^3 (test code = 711-2) 0.10 10*3/uL 0.03-0.39 BASO x10^3 (test code = 704-7) 0.03 10*3/uL 0.01-0.07 Lab Interpretation (test code = 24674-4) Abnormal [facility] URINALYSIS W SPECIFIC [id number] 19:05:00* Test Item Value Reference Range Interpretation Comme nts POCT U SP GRAV (test code = 3255) * 1.005-1.025 POCT PH U (test code = 3254) * 5-8 POCT U LEUK EST (test code = 3263) * Negative - Negative POCT U NIT (test code = 3262) * Negative - Negati ve POCT U PROT (test code = 3259) trace Negative - Negat farhat POCT U GLU (test code = 3256) negative Negative - Negati ve POCT U KETONE (test code = 3258) * Negative - Neg ative POCT U UROBILI (test code = 3260) * 0.2-1 POCT U BILI (test code = 3261) * Negative - Negat farhat POCT U BLD (test code = 3257) * Negative - Negati ve POCT U COLOR (test code = 3266) POCT U APPEAR (test code = 3267) [facility] URINALYSIS W SPECIFIC [id number] 19:05:00* Test Item Value Reference Range Interpretation Comme nts POCT U SP GRAV (test code = 3255) * 1.005-1.025 POCT PH U (test code = 3254) * 5-8 POCT U LEUK EST (test code = 3263) * Negative - Negative POCT U NIT (test code = 3262) * Negative - Negati ve POCT U PROT (test code = 3259) trace Negative - Negat farhat POCT U GLU (test code = 3256) negative Negative - Negati ve POCT U KETONE (test code = 3258) * Negative - Neg ative POCT U UROBILI (test code = 3260) * 0.2-1 POCT U BILI (test code = 3261) * Negative - Negat farhat POCT U BLD (test code = 3257) * Negative - Negati ve POCT U COLOR (test code = 3266) POCT U APPEAR (test code = 3267) [facility] URINALYSIS W SPECIFIC [id number] 19:37:00* Test Item Value Reference Range Interpretation Comme nts POCT U SP GRAV (test code = 3255) . 1.005-1.025 POCT PH U (test code = 3254) . 5-8 POCT U LEUK EST (test code = 3263) . Negative - Negative POCT U NIT (test code = 3262) . Negative - Negati ve POCT U PROT (test code = 3259) NEGATIVE Negative - Negat farhat POCT U GLU (test code = 3256) NEGATIVE Negative - Negati ve POCT U KETONE (test code = 3258) . Negative - Neg ative POCT U UROBILI (test code = 3260) . 0.2-1 POCT U BILI (test code = 3261) . Negative - Negat farhat POCT U BLD (test code = 3257) . Negative - Negati ve POCT U COLOR (test code = 3266) POCT U APPEAR (test code = 3267) [facility] URINALYSIS W SPECIFIC [id number] 18:59:00* Test Item Value Reference Range Interpretation Comme nts POCT U SP GRAV (test code = 3255) . 1.005-1.025 POCT PH U (test code = 3254) . 5-8 POCT U LEUK EST (test code = 3263) . Negative - N egative POCT U NIT (test code = 3262) . Negative - Negati ve POCT U PROT (test code = 3259) Trace Negative - Negat farhat POCT U GLU (test code = 3256) Neg Negative - Negati ve POCT U KETONE (test code = 3258) . Negative - Neg ative POCT U UROBILI (test code = 3260) . 0.2-1 POCT U BILI (test code = 3261) . Negative - Negat farhat POCT U BLD (test code = 3257) . Negative - Negati ve POCT U COLOR (test code = 3266) POCT U APPEAR (test code = 3267) [facility] URINALYSIS W SPECIFIC [id number] 18:59:00* Test Item Value Reference Range Interpretation Comme nts POCT U SP GRAV (test code = 3255) . 1.005-1.025 POCT PH U (test code = 3254) . 5-8 POCT U LEUK EST (test code = 3263) . Negative - N egative POCT U NIT (test code = 3262) . Negative - Negati ve POCT U PROT (test code = 3259) Trace Negative - Negat farhat POCT U GLU (test code = 3256) Neg Negative - Negati ve POCT U KETONE (test code = 3258) . Negative - Neg ative POCT U UROBILI (test code = 3260) . 0.2-1 POCT U BILI (test code = 3261) . Negative - Negat farhat POCT U BLD (test code = 3257) . Negative - Negati ve POCT U COLOR (test code = 3266) POCT U APPEAR (test code = 3267) [facility] URINALYSIS W SPECIFIC [id number] 20:09:00* Test Item Value Reference Range Interpretation Comme nts POCT U SP GRAV (test code = 3255) . 1.005-1.025 POCT PH U (test code = 3254) . 5-8 POCT U LEUK EST (test code = 3263) . Negative - N egative POCT U NIT (test code = 3262) . Negative - Negati ve POCT U PROT (test code = 3259) Trace Negative - Negat farhat POCT U GLU (test code = 3256) Neg Negative - Negati ve POCT U KETONE (test code = 3258) . Negative - Neg ative POCT U UROBILI (test code = 3260) . 0.2-1 POCT U BILI (test code = 3261) . Negative - Negat farhat POCT U BLD (test code = 3257) . Negative - Negati ve POCT U COLOR (test code = 3266) POCT U APPEAR (test code = 3267) [facility] URINALYSIS W SPECIFIC [id number] 22:04:00* Test Item Value Reference Range Interpretation Comme nts POCT U SP GRAV (test code = 3255) . 1.005-1.025 POCT PH U (test code = 3254) . 5-8 POCT U LEUK EST (test code = 3263) . Negative - N egative POCT U NIT (test code = 3262) . Negative - Negati ve POCT U PROT (test code = 3259) Trace Negative - Negat farhat POCT U GLU (test code = 3256) Neg Negative - Negati ve POCT U KETONE (test code = 3258) . Negative - Neg ative POCT U UROBILI (test code = 3260) . 0.2-1 POCT U BILI (test code = 3261) . Negative - Negat farhat POCT U BLD (test code = 3257) .. Negative - Negati ve POCT U COLOR (test code = 3266) POCT U APPEAR (test code = 3267) [facility] [id number] 22:28:00COVID DMT InterpretationInterpretation/Recommendation: Molecular NAAT Tests for Active Infection with the SARS-CoV-2 Virus: This patient was never tested for an active infection with the SARS-CoV-2 virus that causes COVID-19 illness. If there is clinical suspicion for COVID-19 illness, molecular NAAT testing (PCR, Rapid ID Now, etc.) is recommended. Tests for IgM and/or IgG Antibodies to SARS-CoV-2 Virus: The patient has tested negative for SARS-CoV-2 IgG antibodies. If the patient is asymptomatic, this most likely indicates that the patient does not have a history of prior COVID-19 illness.However, if the patient has symptoms suggestive of COVID-19 illness, retesting the patient for bothIgM and IgG antibodies 3 weeks after symptom [...] IgG antibody production lasts. Interpretation Result Comments:These interpretationcomments are based upon all COVID-19 testing the patient has had at [facility], including molecular NAAT testing (more commonly known as PCR testing and Rapid ID Now testing) and antibody testing. It does not take into account any testing that a patient has had outside of the [facility] medical record. [facility] LABORATORY SERVICESCOVID ResultsCoV-2 IgG (no units) ? ? Date ? Value ? 08/20/2020 ? Negative ? ? ? [facility]ORAT[facility] SERVICESUnHend[facility] BrownwoodGC & CHLAMYDIA AMPLIFIED [id number] 19:13:00* Test Item Value Reference Range Interpretation Comme nts C. trachomatis Nucleic Acid (test code = 54163-2) Negative Negative N. gonorrhoeae Nucleic Acid (test code = 23622-8) Negative Negative BRIDGET (test code = BRIDGET) Reliable results a re dependent on adequate specimen collection. ? A [...] trachomatis and/or Neisseria gonorrhoeae NAAT. Lab Interpretation (test code = 64012-7) Normal [facility] HospitalRUBELLA SCREEN (NICHOLAS) [id number] 18:20:00 * Test Item Value Reference Range Interpretation Comme nts Rubella screen IgG (test code = 0540926068) Positive Negative BRIDGET (test code = BRIDGET) Positive - Indicat es the patient was exposed to Rubella through infection or vaccination.Negative - Indicates the patient could be susceptible to Rubella infection.Equivocal - A second specimen should be sent. [facility] hospitalZV ANTIBODY [id number] 18:20:00* Test Item Value Reference Range Interpretation Comme [facility] VZV IgG antibody (test code = 29375-2) Positive Negative BRIDGET (test code = BRIDGET) Positive - Indicat es the patient was exposed to VZV through infection or vaccination.Negative - Indicates the patient could be susceptible to VZV infection.Equivocal - A second specimen should be sent for testing. [facility] ONLY - SYPHILIS [id number] 15:58:00* Test Item Value Reference Range Interpretation Comme [facility] Syphilis IgG/IgM (test code = 01005-9) Non-reactive Non-reactive BRIDGET (test code = BRIDGET) Non-reactive - No serologic evidence of T. pallidum infection. Cannot exclude incubating or early syphilis. Submit a second specimen in 2-4 weeks if syphilis is clinically suspected. Equivocal - Further testing to follow. Reactive - Further testing to follow. Lab Interpretation (test code = 22443-0) Normal [facility] HospitalHI [facility]/2 AG-AB WITH [id number] 07:44:00* Test Item Value Reference Range Interpretation Comme [facility] HIV Semi-quantitative (test code = 80340-7) Negative Negative BRIDGET (test code = BRIDGET) Non-reactive for HIV-1 antigen and HIV-1/HIV-2 antibodies. ?No laboratory evidence of HIV infection. ?Repeat in 2-4 weeks if acute HIV infection is suspected. [facility] HospitalSARS-COV-2 [id number] 06:37:00* Test Item Value Reference Range Interpretation Comme [facility] CoV-2 IgG (test code = 80545-8) Negative Negative Negative result does not rule out acute SARS-CoV-2 infection. Clinical correlation as well as molecular diagnostic test are recommended to rule out acute infection if clinically indicated. BRIDGET (test code = BRIDGET) This test has been approved by FDA for emergency use. Lab Interpretation (test code = 27027-9) Normal [facility] HospitalHEPATITIS B SURFACE [id number] 06:28:00 * Test Item Value Reference Range Interpretation Comme nts HBsAg Semi-Quantitative (brandi t code = 5195-3) Negative Negative [facility] HospitalPRENATAL WORKUP, BLOOD [id number] 05:28:33 * Test Item Value Reference Range Interpretation Comme nts ABO & RH (test code = 20) B NEGATIVE Performed at [facility] Laboratory Services - [facility] Blood [place] [id number] Free: [phone] No. [id number] IAT (test code = 1185) Negative Performed at [facility] Laboratory Services - [facility] Blood [place] [id number] Free: [phone] No. [id number] [facility] HospitalGLUCOSE 1 HOUR POST [id number] 05:10:00* Test Item Value Reference Range Interpretation Comme nts GLUC 1 HR (test code = 7508728229) 67 mg/dL 120-170 L Lab Interpretation (test cod e = 98620-8) Abnormal [facility] WITH [id number] 04:00:00* Test Item Value Reference Range Interpretation Comme nts WBC (test code = 6690-2) See_Comment [Automated Relaboratea ge] The system which generated this result transmitted reference range: 4.30 - 11.10 10*3/?L. The reference range was not used to interpret this result as normal/abnormal. RBC (test code = 789-8) See_Comment [Automated Relaboratea Zip[employer]ap] The system which generated this result transmitted reference range: 3.93 - 5.25 10*6/?L. The reference range was not used to interpret this result as normal/abnormal. HGB (test code = 718-7) 12.5 g/dL 11.6-15 HCT (test code = 4544-3) 39.1 % 35.7-45.2 MCV (test code = 787-2) 82.3 fL 80.6-95.5 MCH (test code = 785-6) 26.3 pg 25.9-32.8 MCHC (test code = 786-4) 32.0 g/dL 31.6-35.1 RDW-SD (test code = 15543-4) 47.8 fL 39-49.9 RDW-CV (test code = 788-0) 15.8 % 12-15.5 H PLT (test code = 777-3) See_Comment [Automated messa ge] The system which generated this result transmitted reference range: 166 - 358 10*3/?L. The reference range was not used to interpret this result as normal/abnormal. MPV (test code = 11285-4) 10.1 fL 9.5-12.9 NRBC/100 WBC (test code = 6491498542) See_Comment [Automated FileThis ssage] The system which generated this result transmitted reference range: 0.0 - 10.0 /100 WBCs. The reference range was not used to interpret this result as normal/abnormal. NRBC x10^3 (test code = 3467831446) <0.01 See_Comment [Automated messa ge] The system which generated this result transmitted reference range: 10*3/?L. The reference range was not used to interpret this result as normal/abnormal. GRAN MAT (NEUT) % (test code = 770-8) 60.4 % IMM GRAN % (test code = 2005477674) 0.20 % LYMPH % (test code = 736-9) 27.9 % MONO % (test code = 5905-5) 8.4 % EOS % (test code = 713-8) 2.1 % BASO % (test code = 706-2) 1.0 % GRAN MAT x10^3(ANC) (test code = 6102932295) 3.80 10*3/uL 1.88-7.09 IMM GRAN x10^3 (test code = 5887131520) <0.03 0-0.06 LYMPH x10^3 (test code = 731-0) 1.75 10*3/uL 1.32-3.29 MONO x10^3 (test code = 742-7) 0.53 10*3/uL 0.33-0.92 EOS x10^3 (test code = 711-2) 0.13 10*3/uL 0.03-0.39 BASO x10^3 (test code = 704-7) 0.06 10*3/uL 0.01-0.07 Lab Interpretation (test code = 10906-1) Abnormal [facility] [id number] 18:57:00* Test Item Value Reference Range Interpretation Comme nts POCT PREG (test code = 1605) Positive On board controls acceptable with C Line (test code = 3574) Yes POCT PREG LOT # (test code = 3575) POCT PREG TEST DATE ( test code = 3576) [facility] URINALYSIS W/O SPECIFIC [id number] 18:57:00* Test Item Value Reference Range Interpretation Comme nts POCT PH U (test code = 3254) 8 mg/dl 5-8 POCT U LEUK EST (test code = 3263) Trace Negative - Negative POCT U NIT (test code = 3262) Neg Negative - Negati ve POCT U PROT (test code = 3259) Trace Negative - Negat farhat POCT U GLU (test code = 3256) Neg Negative - Negati ve POCT U KETONE (test code = 3258) None Negative - Neg ative POCT U BLD (test code = 3257) Neg Negative - Negati ve [facility] [id number] 18:57:00* Test Item Value Reference Range Interpretation Comme nts POCT PREG (test code = 1605) Positive On board controls acceptable with C Line (test code = 3574) Yes POCT PREG LOT # (test code = 3575) POCT PREG TEST DATE ( test code = 3576) [facility] URINALYSIS W/O SPECIFIC [id number] 18:57:00* Test Item Value Reference Range Interpretation Comme nts POCT PH U (test code = 3254) 8 mg/dl 5-8 POCT U LEUK EST (test code = 3263) Trace Negative - Negative POCT U NIT (test code = 3262) Neg Negative - Negati ve POCT U PROT (test code = 3259) Trace Negative - Negat farhat POCT U GLU (test code = 3256) Neg Negative - Negati ve POCT U KETONE (test code = 3258) None Negative - Neg ative POCT U BLD (test code = 3257) Neg Negative - Negati ve [facility] HospitalUrinalysis2020-08-15 04:43:00* Test Item Value Reference Range Interpretation Comme nts APPEARANCE (test code = 8834155669) Cloudy Clear A COLOR (test code = 0633688719) Yellow Yellow PH (test code = 6313466785) 4.8-8.0 SP GRAVITY (test code = 3801326545) 1.003-1.030 GLU U QUAL (test code = 9885745860) Normal Normal BLOOD (test code = 9392715589) Negative Negative KETONES (test code = 0373324042) Negative Negative PROTEIN (test code = 2887-8) Negative Negative UROBILIN (test code = 7564725575) Normal Normal BILIRUBIN (test code = 8841150331) Negative Negative NITRITE (test code = 4347861107) Negative Negative LEUK SUZANNA (test code = 1357778687) Negative Negative RBC/HPF (test code = 3787650023) See_Comment [Automated Relaboratea ge] The system which generated this result transmitted reference range: 0 - 3 HPF. The reference range was not used to interpret this result as normal/abnormal. WBC/HPF (test code = 1153630448) See_Comment [Automated Relaboratea ge] The system which generated this result transmitted reference range: 0 - 5 HPF. The reference range was not used to interpret this result as normal/abnormal. BACTERIA (test code = 9309643696) Few Negative A SQ EPITH (test code = 3870660782) HPF Lab Interpretation (test code = 11988-3) Abnormal [facility] HospitalComplete Metabolic [id number] 04:27:00* Test Item Value Reference Range Interpretation Comme nts NA (test code = 3659601159) 138 mmol/L 135-145 K (test code = 0341139129) 3.8 mmol/L 3.5-5 CL (test code = 6110216382) 104 mmol/L 98-108 CO2 TOTAL (test code = 2018316252) 26 mmol/L 23-31 AGAP (test code = 7291365223) 2-16 BUN (test code = 3991856141) 13 mg/dL 7-23 GLUCOSE (test code = 7178750898) 75 mg/dL 70-110 CREATININE (test code = 6994773574) 0.90 mg/dL 0.5-1.04 TOTAL BILI (test code = 0111470469) 0.1 mg/dL 0.1-1.1 CALCIUM (test code = 6086374199) 9.7 mg/dL 8.6-10.6 T PROTEIN (test code = 9404392721) 8.1 g/dL 6.3-8.2 ALBUMIN (test code = 2410193164) 4.7 g/dL 3.5-5 ALK PHOS (test code = 5436439290) 48 U/L 34-122 ALTv (test code = 1742-6) 15 U/L 5-35 AST(SGOT) (test code = 2052497825) 22 U/L 13-40 eGFR Calculation (Non-) (test code = 7722512916) mL/min/1.73m2 eGFR Calculation () (test code = 0261954207) mL/min/1.73m2 BRIDGET (test code = BRIDGET) Association of [...] in imaging tests). [facility] with [id number] 04:16:00* Test Item Value Reference Range Interpretation Comme nts WBC (test code = 6690-2) See_Comment [Automated Relaboratea ge] The system which generated this result transmitted reference range: 4.30 - 11.10 10*3/?L. The reference range was not used to interpret this result as normal/abnormal. RBC (test code = 789-8) See_Comment [Automated Relaboratea ge] The system which generated this result transmitted reference range: 3.93 - 5.25 10*6/?L. The reference range was not used to interpret this result as normal/abnormal. HGB (test code = 718-7) 11.1 g/dL 11.6-15 L HCT (test code = 4544-3) 35.4 % 35.7-45.2 L MCV (test code = 787-2) 78.5 fL 80.6-95.5 L MCH (test code = 785-6) 24.6 pg 25.9-32.8 L MCHC (test code = 786-4) 31.4 g/dL 31.6-35.1 L RDW-SD (test code = 57729-1) 44.7 fL 39-49.9 RDW-CV (test code = 788-0) 15.8 % 12-15.5 H PLT (test code = 777-3) See_Comment [Automated Relaboratea ge] The system which generated this result transmitted reference range: 166 - 358 10*3/?L. The reference range was not used to interpret this result as normal/abnormal. MPV (test code = 68345-1) 9.5 fL 9.5-12.9 NRBC/100 WBC (test code = 4588094836) See_Comment [Automated FileThis ssage] The system which generated this result transmitted reference range: 0.0 - 10.0 /100 WBCs. The reference range was not used to interpret this result as normal/abnormal. NRBC x10^3 (test code = 7449580052) <0.01 See_Comment [Automated Relaboratea ge] The system which generated this result transmitted reference range: 10*3/?L. The reference range was not used to interpret this result as normal/abnormal. GRAN MAT (NEUT) % (test code = 770-8) 47.1 % IMM GRAN % (test code = 2729050676) 0.30 % LYMPH % (test code = 736-9) 38.6 % MONO % (test code = 5905-5) 9.7 % EOS % (test code = 713-8) 3.4 % BASO % (test code = 706-2) 0.9 % GRAN MAT x10^3(ANC) (test code = 4965916987) 3.19 10*3/uL 1.88-7.09 IMM GRAN x10^3 (test code = 8884549081) <0.03 0-0.06 LYMPH x10^3 (test code = 731-0) 2.61 10*3/uL 1.32-3.29 MONO x10^3 (test code = 742-7) 0.66 10*3/uL 0.33-0.92 EOS x10^3 (test code = 711-2) 0.23 10*3/uL 0.03-0.39 BASO x10^3 (test code = 704-7) 0.06 10*3/uL 0.01-0.07 Lab Interpretation (test code = 84613-2) [facility] [id number] 04:03:00* Test Item Value Reference Range Interpretation Comme nts POCT PREG (test code = 1605) Negative On board controls acceptable with C Line (test code = 3574) present POCT PREG LOT # (test code = 3575) [id number] POCT PREG TEST DATE ( test code = 3576) 03/07/2021 Lab Interpretation (test cod e = 09313-6) [facility] WITH [id number] 23:06:02Unremarkable ultrasound of the uterus and right ovary. Left ovary could notbe visualized Preliminary Report Dictated by Resident: Milad Chávez MD., have reviewed this study and agree with the abovereport.EXAM: US PELVIS COMPLETE WITH TRANSVAGINAL HISTORY: 19 years -old Female withpelvic pain . LMP = 02/05/2020. n TECHNIQUE: Transabdominal and transvaginal ultrasound imagingof the pelviswas performed including color Doppler evaluation. Network Director imageswere obtained for the record. COMPARISON: None FINDINGS: Uterus: The uterus is normal in size, 3.8 x 4.6 x 10.0 cm.The myometrium ishomogenous. No focal lesion is detected. The endometrium is normal inappearance. Endometrial thickness measures 7.0 mm. The cervix isunremarkable. Right Adnexa:Ovary size: 2.4 x 1.7 x 1.5 cmOvary appearance: Few small follicles.Other: No mass. Left Adnexa:The left ovary is nonvisualized. Cul-de-sac: Small amount of fluid is noted within the cul-de-sac, likelyphysiologic. [facility], Radiant Results Inft User - 02/26/2020 6:07 PM CDTEXAM: US PELVIS COMPLETE WITH TRANSVAGINALHISTORY: 19 years -old Female with pelvic pain . LMP = 02/05/2020. [id number]: Transabdominal and transvaginal ultrasound imaging of the pelviswas performed including color Doppler evaluation. Network Director imageswere obtained for the record.COMPARISON: NoneFINDINGS:Uterus: The uterus is normal in size, 3.8 x 4.6 x 10.0 cm. The myometrium ishomogenous. No focal lesion is detected. The endometrium is normal inappearance. Endometrial thickness measures 7.0 mm. The cervix isunremarkable.Right Adnexa:Ovary size: 2.4 x 1.7 x 1.5 cmOvary appearance: Few small follicles.Other: No mass.Left Adnexa:The leftovary is nonvisualized. Cul-de-sac: Small amount of fluid is noted within the cul-de-sac, likelyphys iologic. IMPRESSIONUnremarkable ultrasound of the uterus and right ovary. Left ovary could notbe visualizedPreliminary Report Dictated by Resident: Milad Liu MD., have reviewed this study and agree with the abovereport.[facility]. METABOLIC PANEL (08120) 2020-02-26 22:42:00* Test Item Value Reference Range Interpretation Comme nts NA (test code = 9669003686) 138 mmol/L 135-145 K (test code = 8323915340) 4.3 mmol/L 3.5-5 CL (test code = 2863375551) 107 mmol/L 98-108 CO2 TOTAL (test code = 8486902755) 23 mmol/L 23-31 AGAP (test code = 0840760460) 2-16 BUN (test code = 5622987516) 14 mg/dL 7-23 GLUCOSE (test code = 6762506794) 93 mg/dL 70-110 CREATININE (test code = 5626715882) 0.75 mg/dL 0.5-1.04 TOTAL BILI (test code = 9290268931) 0.3 mg/dL 0.1-1.1 CALCIUM (test code = 0707883220) 9.8 mg/dL 8.6-10.6 T PROTEIN (test code = 2793295209) 7.9 g/dL 6.3-8.2 ALBUMIN (test code = 0335768153) 4.7 g/dL 3.5-5 ALK PHOS (test code = 3712249648) 41 U/L 34-122 ALTv (test code = 1742-6) 12 U/L 5-35 AST(SGOT) (test code = 9359528920) 19 U/L 13-40 eGFR Calculation (Non-) (test code = 9601075553) mL/min/1.73m2 eGFR Calculation () (test code = 3652253882) mL/min/1.73m2 BRIDGET (test code = BRIDGET) Association of [...] or urine or abnormalities in imaging tests). [facility] 22:32:00* Test Item Value Reference Range Interpretation Comme nts APPEARANCE (test code = 2778801376) Hazy Clear A COLOR (test code = 4835159201) Yellow Yellow PH (test code = 9507946485) 4.8-8.0 SP GRAVITY (test code = 7751382097) 1.003-1.030 GLU U QUAL (test code = 1768668460) Normal Normal BLOOD (test code = 2548281030) Negative Negative INTERFERENCE FRO M ASCORBIC ACID MAY CAUSE FALSE NEGATIVE RESULT KETONES (test code = 6685970140) Negative Negative PROTEIN (test code = 2887-8) Negative Negative UROBILIN (test code = 0677886298) Normal Normal BILIRUBIN (test code = 8602346606) Negative Negative NITRITE (test code = 0652372936) Negative Negative LEUK SUZANNA (test code = 4922184025) Negative Negative RBC/HPF (test code = 8542950338) See_Comment [Automated mth sense] The system which generated this result transmitted reference range: 0 - 3 HPF. The reference range was not used to interpret this result as normal/abnormal. WBC/HPF (test code = 6172764744) See_Comment [dinCloud] The system which generated this result transmitted reference range: 0 - 5 HPF. The reference range was not used to interpret this result as normal/abnormal. BACTERIA (test code = 8410391706) Few Negative A MUCOUS (test code = 0287222149) Slight Negative LPF A SQ EPITH (test code = 0295386796) HPF Lab Interpretation (test code = 10668-7) Abnormal [facility] WITH [id number] 22:23:00* Test Item Value Reference Range Interpretation Comme nts WBC (test code = 6690-2) See_Comment [Automated messa ge] The system which generated this result transmitted reference range: 4.30 - 11.10 10*3/?L. The reference range was not used to interpret this result as normal/abnormal. RBC (test code = 789-8) See_Comment [Automated messa ge] The system which generated this result transmitted reference range: 3.93 - 5.25 10*6/?L. The reference range was not used to interpret this result as normal/abnormal. HGB (test code = 718-7) 11.3 g/dL 11.6-15 L HCT (test code = 4544-3) 35.3 % 35.7-45.2 L MCV (test code = 787-2) 76.9 fL 80.6-95.5 L MCH (test code = 785-6) 24.6 pg 25.9-32.8 L MCHC (test code = 786-4) 32.0 g/dL 31.6-35.1 RDW-SD (test code = 90099-8) 42.4 fL 39-49.9 RDW-CV (test code = 788-0) 15.4 % 12-15.5 PLT (test code = 777-3) See_Comment [Automated messa ge] The system which generated this result transmitted reference range: 166 - 358 10*3/?L. The reference range was not used to interpret this result as normal/abnormal. MPV (test code = 26730-1) 9.4 fL 9.5-12.9 L NRBC/100 WBC (test code = 0131268302) See_Comment [Automated FileThis ssage] The system which generated this result transmitted reference range: 0.0 - 10.0 /100 WBCs. The reference range was not used to interpret this result as normal/abnormal. NRBC x10^3 (test code = 2934906407) <0.01 See_Comment [Automated messa ge] The system which generated this result transmitted reference range: 10*3/?L. The reference range was not used to interpret this result as normal/abnormal. GRAN MAT (NEUT) % (test code = 770-8) 57.4 % IMM GRAN % (test code = 9818588119) 0.20 % LYMPH % (test code = 736-9) 27.8 % MONO % (test code = 5905-5) 10.2 % EOS % (test code = 713-8) 3.4 % BASO % (test code = 706-2) 1.0 % GRAN MAT x10^3(ANC) (test code = 7023622206) 3.38 10*3/uL 1.88-7.09 IMM GRAN x10^3 (test code = 5862093096) <0.03 0-0.06 LYMPH x10^3 (test code = 731-0) 1.64 10*3/uL 1.32-3.29 MONO x10^3 (test code = 742-7) 0.60 10*3/uL 0.33-0.92 EOS x10^3 (test code = 711-2) 0.20 10*3/uL 0.03-0.39 BASO x10^3 (test code = 704-7) 0.06 10*3/uL 0.01-0.07 Lab Interpretation (test code = 03082-0) Abnormal [facility] [id number] 22:12:00* Test Item Value Reference Range Interpretation Comme nts POCT PREG (test code = 1605) negative On board controls acceptable with C Line (test code = 3574) present Lab Interpretation (test cod e = 73221-8) Normal [facility] [id number] 21:24:00* Test Item Value Reference Range Interpretation Comme nts POCT PREG (test code = 1605) Negative On board controls acceptable with C Line (test code = 3574) Yes POCT PREG LOT # (test code = 3575) POCT PREG TEST DATE ( test code = 3576) [facility] [id number] 21:24:00* Test Item Value Reference Range Interpretation Comme nts POCT PREG (test code = 1605) Negative On board controls acceptable with C Line (test code = 3574) Yes POCT PREG LOT # (test code = 3575) POCT PREG TEST DATE ( test code = 3576) [facility] [id number] 20:36:00* Test Item Value Reference Range Interpretation Comme nts POCT PREG (test code = 1605) Negative On board controls acceptable with C Line (test code = 3574) Yes POCT PREG LOT # (test code = 3575) POCT PREG TEST DATE ( test code = 3576) [facility] [id number] 20:36:00* Test Item Value Reference Range Interpretation Comme nts POCT PREG (test code = 1605) Negative On board controls acceptable with C Line (test code = 3574) Yes POCT PREG LOT # (test code = 3575) POCT PREG TEST DATE ( test code = 3576) [facility] [id number] 12:23:00* Test Item Value Reference Range Interpretation Comme nts URINE CULTURE (test code = 630-4) > 100,000 CFU/mL mixed aerobic organisms - suggests endogenous microbial contamination [facility] [id number] 12:23:00* Test Item Value Reference Range Interpretation Comme nts URINE CULTURE (test code = 630-4) > 100,000 CFU/mL mixed aerobic organisms - suggests endogenous microbial contamination [facility]ANTI-D R/O [id number] 10:48:29* Test Item Value Reference Range Interpretation Comme nts ANTIBODY (test code = 683) Anti-D Probable RhIg RhIg received 03/29/19.Performed at [facility] Laboratory Services - [facility] Blood [address] [address] Free: [phone] No. [id number] [facility]I-[facility] R/O [id number] 10:48:29* Test Item Value Reference Range Interpretation Comme nts ANTIBODY (test code = 683) Anti-D Probable RhIg RhIg received 03/29/19.Performed at [facility] Laboratory Services - [facility] Blood [address] [address] Free: [phone] No. [id number] [facility] HospitalPRENATAL WORKUP, BLOOD [id number] 08:48:27 * Test Item Value Reference Range Interpretation Comme nts ABO & RH (test code = 20) B NEGATIVE Performed at [facility] Laboratory Services - [facility] Blood [address] Free: [phone] No. [id number] IAT (test code = 1185) Positive Performed at [facility] Laboratory Services - [facility] Blood [address] Free: [phone] No. [id number] [facility], BLOOD [id number] 08:48:27 * Test Item Value Reference Range Interpretation Comme nts ABO & RH (test code = 20) B NEGATIVE Performed at [facility] Laboratory Services - [address] Free: [phone] No. [id number] IAT (test code = 1185) Positive Performed at [facility] Laboratory Services - [address] Free: [phone] No. [id number] [facility] URINALYSIS W SPECIFIC [id number] 18:15:00* Test Item Value Reference Range Interpretation Comme nts POCT U SP GRAV (test code = 3255) . 1.005-1.025 POCT PH U (test code = 3254) . 5-8 POCT U LEUK EST (test code = 3263) . Negative - N egative POCT U NIT (test code = 3262) . Negative - Negati ve POCT U PROT (test code = 3259) Trace Negative - Negat farhat POCT U GLU (test code = 3256) Neg Negative - Negati ve POCT U KETONE (test code = 3258) . Negative - Neg ative POCT U UROBILI (test code = 3260) . 0.2-1 POCT U BILI (test code = 3261) . Negative - Negat farhat POCT U BLD (test code = 3257) . Negative - Negati ve POCT U COLOR (test code = 3266) POCT U APPEAR (test code = 3267) [facility] URINALYSIS W SPECIFIC [id number] 18:15:00* Test Item Value Reference Range Interpretation Comme nts POCT U SP GRAV (test code = 3255) . 1.005-1.025 POCT PH U (test code = 3254) . 5-8 POCT U LEUK EST (test code = 3263) . Negative - N egative POCT U NIT (test code = 3262) . Negative - Negati ve POCT U PROT (test code = 3259) Trace Negative - Negat farhat POCT U GLU (test code = 3256) Neg Negative - Negati ve POCT U KETONE (test code = 3258) . Negative - Neg ative POCT U UROBILI (test code = 3260) . 0.2-1 POCT U BILI (test code = 3261) . Negative - Negat farhat POCT U BLD (test code = 3257) . Negative - Negati ve POCT U COLOR (test code = 3266) POCT U APPEAR (test code = 3267) [facility] URINALYSIS W SPECIFIC [id number] 18:15:00* Test Item Value Reference Range Interpretation Comme nts POCT U SP GRAV (test code = 3255) . 1.005-1.025 POCT PH U (test code = 3254) . 5-8 POCT U LEUK EST (test code = 3263) . Negative - N egative POCT U NIT (test code = 3262) . Negative - Negati ve POCT U PROT (test code = 3259) Trace Negative - Negat farhat POCT U GLU (test code = 3256) Neg Negative - Negati ve POCT U KETONE (test code = 3258) . Negative - Neg ative POCT U UROBILI (test code = 3260) . 0.2-1 POCT U BILI (test code = 3261) . Negative - Negat farhat POCT U BLD (test code = 3257) . Negative - Negati ve POCT U COLOR (test code = 3266) POCT U APPEAR (test code = 3267) [facility] - SYPHILIS [id number] 14:40:00* Test Item Value Reference Range Interpretation Comme nts Syphilis IgG/IgM (test code = 38467-1) Non-reactive Non-reactive BRIDGET (test code = BRIDGET) Non-reactive - No serologic evidence of T. pallidum infection. Cannot exclude incubating or early syphilis. Submit a second specimen in 2-4 weeks if syphilis is clinically suspected.Equivocal - Further testing to follow.Reactive - Further testing to follow. Lab Interpretation (test code = 75187-3) Normal [facility]HIV 1/2 AG-AB WITH [id number] 11:17:00* Test Item Value Reference Range Interpretation Comme nts HIV Semi-quantitative (test code = 71685-9) Negative Negative BRIDGET (test code = BRIDGET) Non-reactive for HIV-1 antigen and HIV-1/HIV-2 antibodies.?No laboratory evidence of HIV infection.?Repeat in 2-4 weeks if acute HIV infection is suspected. [facility] URINALYSIS W SPECIFIC [id number] 18:48:00* Test Item Value Reference Range Interpretation Comme nts POCT U SP GRAV (test code = 3255) . 1.005-1.025 POCT PH U (test code = 3254) 5 mg/dl 5-8 POCT U LEUK EST (test code = 3263) neg Negative - Negative POCT U NIT (test code = 3262) neg Negative - Negati ve POCT U PROT (test code = 3259) 1+ Negative - Negat farhat POCT U GLU (test code = 3256) neg Negative - Negati ve POCT U KETONE (test code = 3258) small Negative - Neg ative POCT U UROBILI (test code = 3260) . 0.2-1 POCT U BILI (test code = 3261) . Negative - Negat farhat POCT U BLD (test code = 3257) neg Negative - Negati ve POCT U COLOR (test code = 3266) POCT U APPEAR (test code = 3267) [facility] URINALYSIS W SPECIFIC [id number] 14:59:00* Test Item Value Reference Range Interpretation Comme nts POCT U SP GRAV (test code = 3255) . 1.005-1.025 POCT PH U (test code = 3254) 5 mg/dl 5-8 POCT U LEUK EST (test code = 3263) neg Negative - Negative POCT U NIT (test code = 3262) neg Negative - Negati ve POCT U PROT (test code = 3259) trace Negative - Negat farhat POCT U GLU (test code = 3256) neg Negative - Negati ve POCT U KETONE (test code = 3258) neg Negative - Neg ative POCT U UROBILI (test code = 3260) . 0.2-1 POCT U BILI (test code = 3261) . Negative - Negat farhat POCT U BLD (test code = 3257) neg Negative - Negati ve POCT U COLOR (test code = 3266) POCT U APPEAR (test code = 3267) [facility] Notes Date/Time Note Provider Source 2022-12-24 12:23:00 [id number]- 19T12:23:00 [facility] ([facility])Med Order Sheet REPORT #: [id number] REPORT STATUS: Signed DATE: 12/24/22 TIME: 1223 PATIENT: AMANUEL LOTT UNIT #: [id number] #: [id number] ROOM #: BED: : 00 AGE: 22 SEX: F ATTEND: Renu Galan MD ADM AUTHOR: Renu Galan MD ATTENTION EDITS and/or ADDENDA must be made in Patient Keeper for this note. Edits and ammendments created in [facility] are not visible in Patient Keeper or the legal medical record (HPF). Discharge Medication Reconciliation DISCHARGE MEDICATION LISTSertraline Tab (Zoloft Tab) Dose: 50 MG PO QAMHosp: HYDROcod/APAP 5/325 Tab ([place] 5/325 Tab) Dose: 1 TAB PO Q4H X 7 days PRN pain scale 4-6, Disp: 42 tablet, Refills: 0 STOPPED HOSPITAL MEDICATIONSDc'd: Acetaminophen Tab (Tylenol Tab) 1000MG PO ONCALLDc'd: cefOXitin Inj(Mefoxin Inj) 2GM IV ONCALLin Sodium Chloride 0.9% (NS) 100MLDc'd: Pregabalin Cap (Lyrica Cap) 50MG PO ONCALL at 1223ATTENTION EDITS and/or ADDENDA must be made in Patient Keeper for this note. Edits and ammendments created in [facility] are not visible in Patient Keeper or the legal medical record (HPF). [facility] #: [id number] OF REPORTCLClinical [id number]:23:00N.BK-[id number] ailable for patient valgSFZPIUOUVHSTFU0824-04-49I93:23:32 [facility] 2022-12-24 12:23:00 [id number]:23:[id number] [address] PATIENT NAME: AMANUEL LOTT ADMIT DATE: 12/24/22ACCOUNT NO: [id number] ROOM NO: AGE: 22 REPORT TYPE: OPERATIVE REPORT SEX: F ADMITTING PHYSICIAN: ATTENDING PHYSICIAN:Renu Galan MD OPERATION DATE: 12/24/2022 PREOPERATIVE DIAGNOSIS: Symptomatic gallstones. POSTOPERATIVE DIAGNOSIS: Symptomatic gallstones. PROCEDURE PERFORMED: Laparoscopic cholecystectomy. SURGEON: Renu Galan MD CONTROL TOWER RADIO OPERATOR: ANESTHESIA: General with local. ESTIMATED BLOOD LOSS: Minimal. COMPLICATIONS: None. DRAINS: None. CONDITION: Stable. FINDINGS: Gallstones. INDICATIONS: The patient is a 22-year-old female with symptomatic gallstones. She was brought to the operating room for cholecystectomy. She was explained the risks, benefits of the procedure, voiced understanding and wishes to proceed. DESCRIPTION OF THE PROCEDURE: After informed consent was obtained, the patient was brought to the operating room and placed in the supine position. She was given general anesthesia. The area was prepped and draped. Preoperative timeout was completed. An infraumbilical incision was made. The fascia was grasped and incised and the abdomen was entered without incident in open a Gertrude technique. A 2-0 Vicryl tacking sutures were placed. Gertrude cannula wasinserted. Pneumoperitoneum was established. A 12 mm trocar was placed in the subxiphoid midline, two 5 mm trocars placed in the right upper quadrant. The gallbladder was identified, grasped and elevated. Dissection was initiated in triangle of Calot. The cystic duct and cystic artery were clearly identified, dissected free circumferentially, clipped and divided. Dissection was then carried up in the gallbladder fossa until gallbladder was completely removed andwas placed into a bag. The area was suction irrigated and was hemostatic. The PATIENT NAME AMANUEL LOTT ports were removed under direct vision. Specimen was removed from the umbilicalport. The fascia was closed with interrupted 0 Vicryl. Skin closed with 4-0 Monocryl and Dermabond. 30 mL of 0.25% Marcaine was infiltrated on the area. The patient tolerated the procedure well and was transferred to the PACU in stable condition. Dictated By: Renu Galan MD Date Dictated: 12/24/2022 12:23:19Date Transcribed: 12/24/2022 12:31:42TR/Pancho #: [id number] ID: [id number] by Renu Galan MD On 12/25/2022 03:37:58 PM at 0337 PATIENT NAME AMANUEL LOTT [id number]:31:00N.[id number] lable for patient knruZHUOOFMJSVVEZE5926-29-52Y32:38:27 [facility]"
[2023-07-16 04:42] LABS: SARS-CoV-2 Antigen Rapid Res Negative (Negative)
[2023-07-16] MEDS ORDERED: AMOX/K CLAV 875 MG TAB ONE (04:48)
--- NOTE | 2023-07-16 04:53 | ER ---
Nurse's Notes [facility] Name: Jazmin Cleveland Age: 22 yrs Sex: Female : 2000 Arrival Date: 07/16/2023 Time: 03:19 Bed 20 Private MD: Diagnosis: Acute pharyngitis, unspecified;Acute pharyngitis due to other specified organism;Influenza due to other identified influenza virus with other respiratory manifestations-INFLUENZA B Presentation: 07/16 04:13 Chief complaint: Patient states: I have been having sore throat for the past two days. ha1 Coronavirus screen: Vaccine status: Patient reports being unvaccinated. Ebola Screen: No symptoms or risks identified at this time. Initial Sepsis Screen: Does the patient meet any 2 criteria? No. Patient's initial sepsis screen is negative. Does the patient have a suspected source of infection? No. Patient's initial sepsis screen is negative. Risk Assessment: Do you want to hurt yourself or someone else? Patient reports no desire to harm self or others. 04:13 Method Of Arrival: Ambulatory 1 04:13 Acuity: ADEN 4 ha1 Triage Assessment: 03:36 General: Appears comfortable, Behavior is calm, cooperative. Pain: Complains of pain in ha1 throat Pain does not radiate. Pain currently is 8 out of 10 on a pain scale. Quality of pain is described as burning, Pain began 2-3 days ago. Is intermittent. EENT: Throat is reddened. Neuro: Level of Consciousness is awake, alert, obeys commands, Oriented to person, place, time, situation. Respiratory: Airway is patent Respiratory effort is even, unlabored, Respiratory pattern is regular, symmetrical. : No signs and/or symptoms were reported regarding the genitourinary system. Derm: Skin is pink, warm \T\ dry. Musculoskeletal: Circulation, motion, and sensation intact. Range of motion: intact in all extremities. Historical: - Allergies: 04:15 Doxycycline; ha1 - Home Meds: 04:15 Zoloft 50 mg Oral tab 1 tab daily [Active]; ha1 - PMHx: 04:15 Anxiety; depressive disorder; pelvic inflammatory disease; ha1 - PSHx: 04:15 Cholecystectomy; ha1 - Immunization history:: Adult Immunizations up to date. - Family history:: not pertinent. - Social history:: Smoking status: Reported history of juuling and/or vaping. Screenin:36 [facility] ED Fall Risk Assessment (Adult) History of falling in the last 3 months, ha1 including since admission No falls in past 3 months (0 pts) Confusion or Disorientation No (0 pts) Intoxicated or Sedated No (0 pts) Impaired Gait No (0 pts) Mobility Assist Device Used No (0 pt) Altered Elimination No (0 pt) Score/Fall Risk Level 0 - 2 = Low Risk Oriented to surroundings, Maintained a safe environment, Educated pt \T\ family on fall prevention, incl call for assistance when getting out of bed, Hourly rounding (assess needs \T\ fall precautionary measures) done. Abuse screen: Denies threats or abuse. Denies injuries from another. Nutritional screening: No deficits noted. Tuberculosis screening: No symptoms or risk factors identified. Assessment: 03:36 Reassessment: see triage assessment. ha1 Vital Signs: 03:36 BP 123 / 70; Pulse 76; Resp 17 S; Temp 97.3; Pulse Ox 98% on R/A; Weight 81.65 kg; ha1 Height 5 ft. 6 in. ; 03:36 Body Mass Index 29.05 (81.65 kg, 167.64 cm) ha1 ED Course: 03:32 Patient arrived in ED. gm2 03:32 Clarence Contreras MD is Attending Physician. [facility] 03:36 Patient has correct armband on for positive identification. Placed in gown. Bed in low ha1 position. Call light in reach. Side rails up X 1. 03:36 Arm band placed on right wrist. ha1 04:01 Cyndy Alcantar RN is Primary Nurse. ha1 04:11 Strep Sent. ha1 04:11 SARS RAPID Sent. ha1 04:11 Flu Sent. ha1 04:14 Triage completed. ha1 05:09 No provider procedures requiring assistance completed. Patient did not have IV access km8 during this emergency room visit. 05:09 Provided Education on: d/c teaching. km8 Administered Medications: 04:43 Drug: Amoxicillin-Clavulanate PO 875 mg PO once Route: PO; km8 05:09 Follow up: Response: No adverse reaction km8 05:09 Drug: Oseltamivir PO 75 mg PO once Route: PO; km8 05:09 Follow up: Response: Medication administered at discharge. km8 Medication: 04:21 VIS not applicable for this client. ha1 Outcome: 04:53 Discharge ordered by . keena 05:10 Discharged to home ambulatory, km8 05:10 Condition: good 05:10 Discharge instructions given to patient, Instructed on discharge instructions, follow up and referral plans. medication usage, Demonstrated understanding of instructions, follow-up care, medications, Prescriptions given X 3, 05:11 Patient left the ED. km8 Signatures: Clarence Contreras MD MD cha Ayala, Heidy, RN RN 1 Kaylynn Rivas 2 Adriana Fernandez, RN RN km8
--- NOTE | 2023-07-16 04:54 | EDPHYS ---
Physician Documentation [facility] Name: Jazmin Cleveland Age: 22 yrs Sex: Female : 2000 Arrival Date: 07/16/2023 Time: 03:19 Bed 20 Private MD: JACIEL Physician Clarence Contreras HPI: 07/16 03:41 This 22 yrs old Female presents to ER via Unassigned with complaints of Sore keena Throat. 03:41 The patient presents with sore throat. The patient describes throat pain as constant, keena raw. Onset: The symptoms/episode began/occurred 2 day(s) ago. Severity of symptoms: At their worst the symptoms were moderate, in the emergency department the symptoms are unchanged. Modifying factors: The symptoms are alleviated by nothing, the symptoms are aggravated by nothing. Associated signs and symptoms: The patient has no apparent associated signs or symptoms. The patient has not experienced similar symptoms in the past. Historical: - Allergies: 04:15 Doxycycline; ha1 - Home Meds: 04:15 Zoloft 50 mg Oral tab 1 tab daily [Active]; ha1 - PMHx: 04:15 Anxiety; depressive disorder; pelvic inflammatory disease; ha1 - PSHx: 04:15 Cholecystectomy; ha1 - Immunization history:: Adult Immunizations up to date. - Family history:: not pertinent. - Social history:: Smoking status: Reported history of juuling and/or vaping. ROS: 03:42 Constitutional: Negative for fever, chills, and weight loss, Eyes: Negative for injury, keena pain, redness, and discharge, Neck: Negative for injury, pain, and swelling, Cardiovascular: Negative for chest pain, palpitations, and edema, Respiratory: Negative for shortness of breath, cough, wheezing, and pleuritic chest pain, Abdomen/GI: Negative for abdominal pain, nausea, vomiting, diarrhea, and constipation, Back: Negative for injury and pain, : Negative for injury, bleeding, discharge, and swelling, MS/Extremity: Negative for injury and deformity, Skin: Negative for injury, rash, and discoloration, Neuro: Negative for headache, weakness, numbness, tingling, and seizure, Psych: Negative for depression, anxiety, suicide ideation, homicidal ideation, and hallucinations, Allergy/Immunology: Negative for hives, rash, and allergies, Endocrine: Negative for neck swelling, polydipsia, polyuria, polyphagia, and marked weight changes, Hematologic/Lymphatic: Negative for swollen nodes, abnormal bleeding, and unusual bruising, 03:42 ENT: Positive for rhinorrhea, sinus congestion, sore throat, Exam: 03:42 Constitutional: This is a well developed, well nourished patient who is awake, alert, keena and in no acute distress. Head/Face: Normocephalic, atraumatic. Eyes: Pupils equal round and reactive to light, extra-ocular motions intact. Lids and lashes normal. Conjunctiva and sclera are non-icteric and not injected. Cornea within normal limits. Periorbital areas with no swelling, redness, or edema. Neck: Trachea midline, no thyromegaly or masses palpated, and no cervical lymphadenopathy. Supple, full range of motion without nuchal rigidity, or vertebral point tenderness. No Meningismus. Chest/axilla: Normal chest wall appearance and motion. Nontender with no deformity. No lesions are appreciated. Cardiovascular: Regular rate and rhythm with a normal S1 and S2. No gallops, murmurs, or rubs. Normal PMI, no JVD. No pulse deficits. Respiratory: Lungs have equal breath sounds bilaterally, clear to auscultation and percussion. No rales, rhonchi or wheezes noted. No increased work of breathing, no retractions or nasal flaring. Abdomen/GI: Soft, non-tender, with normal bowel sounds. No distension or tympany. No guarding or rebound. No evidence of tenderness throughout. Back: No spinal tenderness. No costovertebral tenderness. Full range of motion. Skin: Warm, dry with normal turgor. Normal color with no rashes, no lesions, and no evidence of cellulitis. MS/ Extremity: Pulses equal, no cyanosis. Neurovascular intact. Full, normal range of motion. Neuro: Awake and alert, GCS 15, oriented to person, place, time, and situation. Cranial nerves II-XII grossly intact. Motor strength 5/5 in all extremities. Sensory grossly intact. Cerebellar exam normal. Normal gait. Psych: Awake, alert, with orientation to person, place and time. Behavior, mood, and affect are within normal limits. 03:42 ENT: Posterior pharynx: Tonsils: with erythema, Uvula: normal, swelling, that is mild, erythema, that is mild, exudate, is not appreciated, Vital Signs: 03:36 BP 123 / 70; Pulse 76; Resp 17 S; Temp 97.3; Pulse Ox 98% on R/A; Weight 81.65 kg; ha1 Height 5 ft. 6 in. ; 03:36 Body Mass Index 29.05 (81.65 kg, 167.64 cm) ha1 MDM: 03:38 Patient medically screened. [facility] 03:45 Data reviewed: vital signs, nurses notes, lab test result(s), Flu: negative. [facility] Consideration of Admission/Observation Escalation of care including admission/observation considered. I considered the following discharge prescriptions or medication management in the emergency department Medications were administered in the Emergency Department. See MAR. Test considered but Not performed: Labs: no labs. Historians other than the Patient: pt well informed. Care significantly affected by the following chronic conditions: none. 07/16 03:33 Order name: Flu; Complete Time: 04:52 [facility] 07/16 03:33 Order name: SARS RAPID; Complete Time: 04:52 [facility] 07/16 03:33 Order name: Strep [facility] 07/16 04:44 Order name: Throat Culture EDMS Administered Medications: 04:43 Drug: Amoxicillin-Clavulanate PO 875 mg PO once Route: PO; 8 05:09 Follow up: Response: No adverse reaction [facility] 05:09 Drug: Oseltamivir PO 75 mg PO once Route: PO; 8 05:09 Follow up: Response: Medication administered at discharge. 8 Disposition Summary: 07/16/23 04:53 Discharge Ordered Notes: Location: Home [facility] Problem: new [facility] Symptoms: have improved [facility] Condition: Stable [facility] Diagnosis - Acute pharyngitis, unspecified keena - Acute pharyngitis due to other specified organism keena - Influenza due to other identified influenza virus with other respiratory keena manifestations - INFLUENZA B Followup: keena - With: Private Physician - When: 2 - 3 days - Reason: Recheck today's complaints, Continuance of care, Re-evaluation by your physician Discharge Instructions: - Discharge Summary Sheet keena - Influenza, Adult keena - Pharyngitis keena - Sore Throat keena - Upper Respiratory Infection, Adult keena - Upper Respiratory Infection, Adult, [id number] keena - Pharyngitis, [id number] keena - Influenza, Adult, Ptlm-[id number] keena - Sore Throat, [id number] [facility] Forms: - Medication Reconciliation Form keena - Thank You Letter keena - Antibiotic Education keena - Prescription Opioid Use keena - Patient Portal Instructions keena - Leadership Thank You Letter keena - Work release form pf1 Prescriptions: - Augmentin 875-125 mg Oral Tablet - take 1 tablet ORAL route every 12 hours for 10 days; 20 tablet; Refills: 0, [facility] Product Selection Permitted - Rosangela-D 12 Hour 60-120 mg Oral Tablet,Extended Release 12 hr - take 1 tablet ORAL route every 12 hours As needed; 14 tablet; Refills: 0, [facility] Product Selection Permitted - Tamiflu 75 mg Oral capsule - take 1 tablet ORAL route every 12 hours for 5 days; 10 tablet; Refills: 0, [facility] Product Selection Permitted Signatures: Dispatcher [employer] Clarence Strauss MD MD cha Ayala, Heidy, RN RN ha1 Adriana Fernandez RN RN km8
[2023-07-16 05:15] VITALS: BP 123/70; TEMP 97.3; O2SAT 98
[2023-07-16] MEDS ORDERED: OSELTAMIVIR 75 MG CAP PO ONE (05:22)
== END 2023-07-16 05:11 | disposition home or self-care (01) ==
LOC: ER 03:19
DX: J10.1 Influenza due to other identified influenza virus with other respiratory manifestations (principal); J02.9 Acute pharyngitis, unspecified; Z11.52 Encounter for screening for COVID-19; Z88.3 Allergy status to other anti-infective agents
CPT/HCPCS: 36415; 87070; 87081; 87804; 87811; 99283

== ENCOUNTER 2023-07-18 19:28 | Emergency (ER) | payer SELFPAY ==
[2023-07-18] MEDS ORDERED: ONDANSETRON 4 MG/2 ML VIAL ONE (21:24)
[2023-07-18] MEDS ORDERED: FAMOTIDINE 20 MG/2 ML VIAL IV ONE (21:24)
[2023-07-18] MEDS ORDERED: NA CHLORIDE 0.9% 1,000 ML ONE (21:24)
[2023-07-18 22:03] LABS: Specific Gravity > 1.030 (1.005-1.030)
[2023-07-18 22:08] LABS: Absolute Lymphocytes (CBC) 0.3 K/uL (0.7-4.9); Hematocrit 40.3 % (36.0-45.0); Lymphocytes % 1.9 % (15.3-44.8); MCV 80.9 fL (80-100); MPV 7.1 fL (7.6-11.3); Platelets 354 thou/uL (152-406); RBC Red Blood Cell Count 4.98 M/uL (3.86-4.86); Specific Gravity > 1.030 (1.005-1.030); Urine Bacteria <20 /HPF (<20); Urine Bilirubin NEGATIVE (Negative); Urine Blood Negative (Negative); Urine Clarity Extremely Turbid (Clear); Urine Color Yellow (Yellow); Urine Crystals Unidentified Few /HPF (None Seen); Urine Glucose NEGATIVE (Negative); Urine Mucus 2+ /HPF (None Seen); Urine Protein TRACE (Negative); Urine RBC <5 /HPF (None Seen); Urine Urobilinogen Normal (Normal); Urine WBC Clump Rare /HPF (None Seen)
[2023-07-18 22:12] LABS: SARS-CoV-2 Antigen Rapid Res Negative (Negative)
[2023-07-18 22:34] LABS: Albumin 4.7 g/dL (3.4-5.0); Bilirubin Total 0.7 mg/dL (0.2-1.0); Potassium 3.9 mEq/L (3.5-5.1); Protein, Total 9.4 g/dL (6.4-8.2)
[2023-07-18 22:56] LABS: Blood Morphology Comment NOT SEEN (NOT SEEN); Platelet Estimate ADEQ
--- NOTE | 2023-07-19 00:55 | EDPHYS ---
Physician Documentation [facility] Name: Jazmin Cleveland Age: 22 yrs Sex: Female : 2000 Arrival Date: 07/18/2023 Time: 19:28 Bed 19 Private MD: ED Physician Zhen Noe HPI: 07/18 20:30 This 22 yrs old Female presents to ER via Wheelchair with complaints of Vomiting and cp Diarrhea. 20:30 The patient presents to the emergency department with nausea, that is moderate, cp vomiting, that is intermittent, diarrhea, that is intermittent. Onset: The symptoms/episode began/occurred today. Possible causes: unknown. Associated signs and symptoms: Pertinent positives: abdominal pain, Pertinent negatives: constipation, dysuria, fever, GI bleeding. Severity of symptoms: in the emergency department the symptoms are unchanged despite home interventions. Historical: - Allergies: 20:20 Doxycycline; kl - Home Meds: 20:20 Zoloft 50 mg Oral tab 1 tab daily [Active]; kl - PMHx: 20:20 Anxiety; depressive disorder; pelvic inflammatory disease; kl - PSHx: 20:20 Cholecystectomy; kl - Immunization history:: Adult Immunizations not immunized. - Social history:: Smoking status: Reported history of juuling and/or vaping. ROS: 20:33 Constitutional: Positive for poor PO intake, Negative for fever, cp 20:33 Eyes: Negative for injury, pain, redness, and discharge, cp 20:33 ENT: Negative for drainage from ear(s), ear pain, sore throat, difficulty swallowing, difficulty handling secretions, 20:33 Cardiovascular: Negative for chest pain, palpitations, 20:33 Respiratory: Negative for cough, shortness of breath, wheezing, 20:33 Abdomen/GI: Positive for abdominal pain, nausea, vomiting, and diarrhea, Negative for hematemesis, black/tarry stool, rectal bleeding, 20:33 : Negative for urinary symptoms, 20:33 Neuro: Negative for altered mental status, dizziness, headache, loss of consciousness, syncope, weakness, 20:33 All other systems are negative, Exam: 20:35 Constitutional: The patient appears in no acute distress, alert, awake, non-toxic, well cp developed, well nourished, uncomfortable, 20:35 Head/Face: Normocephalic, atraumatic. cp 20:35 Eyes: Periorbital structures: appear normal, Conjunctiva: normal, no exudate, no injection, Sclera: no appreciated abnormality, Lids and lashes: appear normal, bilaterally, 20:35 ENT: External ear(s): are unremarkable, Nose: is normal, Mouth: Lips: moist, Oral mucosa: pink and intact, moist, Posterior pharynx: is normal, airway is patent, no erythema, no exudate, 20:35 Chest/axilla: Inspection: normal, 20:35 Cardiovascular: Rate: normal, Rhythm: regular, Edema: is not appreciated, 20:35 Respiratory: the patient does not display signs of respiratory distress, Respirations: normal, no use of accessory muscles, no retractions, labored breathing, is not present, Breath sounds: are clear throughout, no decreased breath sounds, no stridor, no wheezing, 20:35 Abdomen/GI: Inspection: abdomen appears normal, Bowel sounds: active, all quadrants, Palpation: soft, in all quadrants, moderate abdominal tenderness, in the right lower quadrant and left lower quadrant, rebound tenderness, is not appreciated, involuntary guarding, is not appreciated, 20:35 Back: CVA tenderness, is absent, Vital Signs: 20:18 BP 116 / 73; Pulse 73; Resp 16; Temp 97.9(TE); Pulse Ox 100% ; Weight 79.38 kg; Height kl 5 ft. 6 in. ; Pain 8/10; 22:11 BP 114 / 71; Pulse 66; Pulse Ox 100% ; nw1 22:52 BP 113 / 71; Pulse 75; Resp 17; Pulse Ox 99% ; nw1 23:48 BP 112 / 68; Pulse 77; Pulse Ox 99% on R/A; nw1 07/19 00:57 BP 110 / 63; Pulse 98; Resp 16; Pulse Ox 100% ; nw1 07/18 20:18 Body Mass Index 28.25 (79.38 kg, 167.64 cm) 11 20:18 Pain Scale: Adult kl Verenice Coma Score: 07/18 22:11 Eye Response: spontaneous(4). Motor Response: obeys commands(6). Verbal Response: nw1 oriented(5). Total: 15. MDM: 20:22 Patient medically screened. cp 21:00 Differential diagnosis: gastritis, cholecystitis, pancreatitis, appendicitis, cp diverticulitis, viral gastroenteritis, gastroenteritis. 07/19 00:53 Data reviewed: vital signs, nurses notes, lab test result(s), radiologic studies, CT cp scan. 00:53 Consideration of Admission/Observation Escalation of care including cp admission/observation considered. I considered the following discharge prescriptions or medication management in the emergency department Medications were administered in the Emergency Department. See MAR. Counseling: I had a detailed discussion with the patient and/or guardian regarding the historical points, exam findings, and any diagnostic results supporting the discharge/admit diagnosis, lab results, radiology results, to return to the emergency department if symptoms worsen or persist or if there are any questions or concerns that arise at home. Response to treatment: the patient's symptoms have markedly improved after treatment, tolerates po meds and fluids. Patient appears non-toxic, will discharge to home for continued monitoring. 07/18 20:16 Order name: CBC with Diff; Complete Time: 23:29 cp 07/18 22:51 Interpretation: Normal except: WBC 16.50; RBC 4.98; MCH 25.7; MCHC 31.7; RDW 15.5; MPV cp 7.1; ISAIAH% 93.5; LYM% 1.9; NEUT A 15.4; LYMA 0.3. 07/18 20:16 Order name: CMP; Complete Time: 22:37 cp 07/18 22:37 Interpretation: Normal except: BUN 24; AST 12; TP 9.4; GLOB 4.7; A/G 1.0. cp 07/18 20:16 Order name: Lipase; Complete Time: 22:37 cp 07/18 20:16 Order name: Test, Urine; Complete Time: 22:37 cp 07/18 20:16 Order name: Urinalysis w/ reflexes; Complete Time: 22:37 cp 07/18 22:52 Interpretation: Normal except: [facility] Extremely Turbid; Urine SG > 1.030; UKET 3+; UPROT cp TRACE. 07/18 20:24 Order name: Influenza Screen (a \T\ B); Complete Time: 22:37 cp 07/18 20:24 Order name: SARS RAPID; Complete Time: 22:37 cp 07/18 22:12 Order name: Manual Differential; Complete Time: 23:29 EDMS 07/18 23:29 Interpretation: Normal except: SEGS 83; BANDS [F] 7; LYM 6. cp 07/18 22:51 Order name: CT Abd/Pelvis - IV Contrast Only cp 07/18 20:16 Order name: IV Saline Lock; Complete Time: 21:37 cp 07/18 20:16 Order name: Labs collected and sent; Complete Time: 21:37 cp 07/19 00:34 Order name: PO challenge; Complete Time: 00:58 cp Administered Medications: 07/18 21:37 Drug: NS 0.9% IV 1000 ml IV at 1 bolus Per protocol; 1000 mL bolus Route: IV; Rate: 1 nw1 bolus; Site: left antecubital; 21:37 Drug: Famotidine IVP 20 mg IVP once; dilute with 10 mL 0.9% NaCl; give over 2 minutes nw1 Route: IVP; Site: left antecubital; 21:37 Drug: Ondansetron IVP 4 mg IVP once; over 2 minutes Route: IVP; Site: left antecubital; nw1 07/19 00:55 Drug: Ciprofloxacin PO 500 mg PO once Route: PO; nw1 00:55 Drug: metroNIDAZOLE PO 500 mg PO once Route: PO; nw1 Disposition: 20:11 Co-signature as Attending Physician, Zhen Noe MD I agree with the assessment sp4 and plan of care. I reviewed the patient's care provided by the Advanced Practice Provider and agree with the diagnosis and treatment plan. Disposition Summary: 07/19/23 00:54 Discharge Ordered Notes: Location: Home cp Problem: new cp Symptoms: have improved cp Condition: Stable cp Diagnosis - Nausea with vomiting, unspecified cp - Diarrhea, unspecified cp - Enterocolitis cp Followup: cp - With: Lionel Hi MD - When: 1 week - Reason: Recheck today's complaints Discharge Instructions: - Discharge Summary Sheet cp - Diarrhea, Adult cp - Nausea and Vomiting, Adult cp Forms: - Medication Reconciliation Form cp - Thank You Letter cp - Antibiotic Education cp - Prescription Opioid Use cp - Patient Portal Instructions cp - Leadership Thank You Letter cp Prescriptions: - Zofran 4 mg Oral Tablet - take 1 tablet ORAL route every 12 hours As needed; 20 tablet; Refills: 0, cp Product Selection Permitted - Cipro 500 mg Oral tablet - take 1 tablet ORAL route every 12 hours for 10 days; 20 tablet; Refills: 0, cp Product Selection Permitted - Metronidazole 500 mg Oral Tablet - take 1 tablet ORAL route every 8 hours; 30 tablet; Refills: 0, Product cp Selection Permitted - dicyclomine 20 mg Oral tablet - take 1 tablet ORAL route 4 times per day; 30 tablet; Refills: 0, Product cp Selection Permitted Signatures: Dispatcher [employer] Meli Natarajan, ANA MARIA RN kl Clarence Rodriguez PA PA Zhen Cooper MD MD sp4 Noy Kay RN RN nw1 Corrections: (The following items were deleted from the chart) 18:23 18:22 This 22 yrs old Female presents to ER via Wheelchair with complaints of Vomiting cp and Diarrhea. cp
--- NOTE | 2023-07-19 00:55 | ER ---
Nurse's Notes [facility] Name: Jazmin Cleveland Age: 22 yrs Sex: Female : 2000 Arrival Date: 07/18/2023 Time: 19:28 Bed 19 Private MD: Diagnosis: Nausea with vomiting, unspecified;Diarrhea, unspecified;Enterocolitis Presentation: 07/18 20:18 Chief complaint: Patient states: vomiting diarrhea began today tolerating water in triage. Coronavirus screen: Vaccine status: Patient reports being unvaccinated. Ebola Screen: Patient negative for fever greater than or equal to 101.5 degrees Fahrenheit, and additional compatible Ebola Virus Disease symptoms. Initial Sepsis Screen: Does the patient meet any 2 criteria? No. Patient's initial sepsis screen is negative. Does the patient have a suspected source of infection? No. Patient's initial sepsis screen is negative. Risk Assessment: Do you want to hurt yourself or someone else? Patient reports no desire to harm self or others. 20:18 Method Of Arrival: Wheelchair 20:18 Acuity: ADEN 3 20:21 Note pt seen here on 07/16 did not get prescriptions filled because she forgot. Triage Assessment: 20:20 General: Appears in no apparent distress. Behavior is flat, quiet. Pain: Complains of kl pain in umbilical area Pain currently is 8 out of 10 on a pain scale. GI: Reports diarrhea, nausea, vomiting. : No signs and/or symptoms were reported regarding the genitourinary system. Historical: - Allergies: 20:20 Doxycycline; - Home Meds: 20:20 Zoloft 50 mg Oral tab 1 tab daily [Active]; kl - PMHx: 20:20 Anxiety; depressive disorder; pelvic inflammatory disease; - PSHx: 20:20 Cholecystectomy; kl - Immunization history:: Adult Immunizations not immunized. - Social history:: Smoking status: Reported history of juuling and/or vaping. Screenin:11 [facility] ED Fall Risk Assessment (Adult) History of falling in the last 3 months, nw1 including since admission No falls in past 3 months (0 pts) Confusion or Disorientation No (0 pts) Intoxicated or Sedated No (0 pts) Impaired Gait No (0 pts) Mobility Assist Device Used No (0 pt) Altered Elimination No (0 pt) Score/Fall Risk Level 0 - 2 = Low Risk Oriented to surroundings, Maintained a safe environment, Provided non-skid footwear, Hourly rounding (assess needs \T\ fall precautionary measures) done. Abuse screen: Denies threats or abuse. Denies injuries from another. Nutritional screening: No deficits noted. Tuberculosis screening: No symptoms or risk factors identified. Assessment: 21:54 Reassessment: Assessed patient. Per patient she has not been able to tolerate food or nw1 fluids for today only. Pt noted keeping else close and being lethargic. Asked patient if she has taken anything due to the way she is presenting. Patient denies medications, etoh, or drugs. Notified patient that I cannot medicate her if she is unable to coherently respond to questions during the assessment process. Pt then awakened and started answering questions appropriately. Pt requested fluids, and patient teaching explained that she cannot have anything to eat or drink during the diagnostic process. Patient able to ambulate to restroom and gave urine sample. Patient noted in bed with family at bedside. IV started and call light at bedside. 0 s/s of acute distress noted. Will continue to monitor. General: Appears in no apparent distress. unkempt, emaciated. Neuro: No deficits noted. Level of Consciousness is awake, alert, obeys commands, Oriented to person, place, time, situation, Appropriate for age. Cardiovascular: No deficits noted. Reports None. Respiratory: No deficits noted. GI: Abd is soft Abd is non tender Reports intolerance of fluids, intolerance of food, nausea, vomiting, since this morning. : Urine is cloudy. Derm: No signs and/or symptoms reported regarding the dermatologic system. Skin is intact, is healthy with good turgor, Skin is dry, Skin is pale, Skin temperature is warm. Musculoskeletal: No deficits noted. No signs and/or symptoms reported regarding the musculoskeletal system. 22:55 Reassessment: Pt notified of POC and pending CT scan. Call light at bedside. Denies nw1 needs/wants. 0 s/s of acute distress noted at this time. Will continue to monitor. 07/19 00:58 Reassessment: PT TOLERATES PO CHALLENGE. DENIES N/V AT THIS TIME. nw1 Vital Signs: 07/18 20:18 BP 116 / 73; Pulse 73; Resp 16; Temp 97.9(TE); Pulse Ox 100% ; Weight 79.38 kg; Height kl 5 ft. 6 in. ; Pain 8/10; 22:11 BP 114 / 71; Pulse 66; Pulse Ox 100% ; nw1 22:52 BP 113 / 71; Pulse 75; Resp 17; Pulse Ox 99% ; nw1 23:48 BP 112 / 68; Pulse 77; Pulse Ox 99% on R/A; nw1 07/19 00:57 BP 110 / 63; Pulse 98; Resp 16; Pulse Ox 100% ; nw1 07/18 20:18 Body Mass Index 28.25 (79.38 kg, 167.64 cm) kl 07/18 20:18 Pain Scale: Adult Verenice Coma Score: 07/18 22:11 Eye Response: spontaneous(4). Motor Response: obeys commands(6). Verbal Response: nw1 oriented(5). Total: 15. ED Course: 20:00 Patient arrived in ED. [id number] 20:02 Clarence Rodriguez PA is PHCP. cp 20:02 Zhen Noe MD is Attending Physician. cp 20:19 Triage completed. kl 21:06 Noy Kay, RN is Primary Nurse. nw1 22:11 Patient has correct armband on for positive identification. Placed in gown. Bed in low nw1 position. Call light in reach. Side rails up X2. Adult w/ patient. Provided Education on: POC. Client placed on continuous cardiac and pulse oximetry monitoring. NIBP monitoring applied. environmental monitoring specialist on. Pulse ox on. NIBP on. Door closed. Warm blanket given. 22:11 No provider procedures requiring assistance completed. nw1 23:00 Inserted saline lock: 18 gauge in right antecubital area, using aseptic technique. nw1 Blood collected. 23:38 CT Abd/Pelvis - IV Contrast Only In Process Unspecified. EDMS 07/19 00:53 Lionel Hi MD is Referral Physician. cp 01:16 IV discontinued, intact, bleeding controlled, No redness/swelling at site. Pressure nw1 dressing applied. Administered Medications: 07/18 21:37 Drug: NS 0.9% IV 1000 ml IV at 1 bolus Per protocol; 1000 mL bolus Route: IV; Rate: 1 nw1 bolus; Site: left antecubital; 21:37 Drug: Famotidine IVP 20 mg IVP once; dilute with 10 mL 0.9% NaCl; give over 2 minutes nw1 Route: IVP; Site: left antecubital; 21:37 Drug: Ondansetron IVP 4 mg IVP once; over 2 minutes Route: IVP; Site: left antecubital; nw1 07/19 00:55 Drug: Ciprofloxacin PO 500 mg PO once Route: PO; 00:55 Drug: metroNIDAZOLE PO 500 mg PO once Route: PO; nw Medication: 07/18 22:11 VIS not applicable for this client. nw1 Outcome: 07/19 00:54 Discharge ordered by MD. glendy 01:16 Discharged to home ambulatory, nw1 01:16 Condition: stable 01:16 Discharge instructions given to patient, Instructed on discharge instructions, follow up and referral plans. medication usage, Demonstrated understanding of instructions, follow-up care, medications, Prescriptions given X 4, 01:17 Patient left the ED. nw1 Signatures: Dispatcher [employer] EDMeli Rivera RN RN Clarence Moss PA PA cp Jeffries, Jennifer [email or web address] Noy Kay, ANA MARIA RN nw1
[2023-07-19] MEDS ORDERED: metroNIDAZOLE 500 MG TABLET ONE (01:00)
[2023-07-19] MEDS ORDERED: CIPROFLOXACIN HCL 500 MG TAB ONE (01:01)
[2023-07-19 01:43] VITALS: TEMP 97.9
[2023-07-19 01:59] VITALS: BP 110/63
[2023-07-19 02:00] VITALS: O2SAT 100
--- NOTE | 2023-07-19 21:09 | RAD REPORT ---
EXAM DESCRIPTION: Abdomen Pelvis W Contrast CLINICAL HISTORY: ABD PAIN COMPARISON: 01/14/2023 TECHNIQUE: CT of the abdomen and pelvis performed following the administration of IV contrast. No or al contrast. This exam was performed according to our departmental dose-optimization program, which i ncludes automated exposure control, adjustment of the mA and/or kV according to patient size and/or u se of iterative reconstruction technique. FINDINGS: Lung Bases: The visualized lung bases are clear. Abdomen: Liver: The liver has normal contour and density. No suspicious mass. Gallbladder: Surgically absent. No significant biliary dilatation. Spleen, Pancreas, and Adrenal Glands: Spleen is borderline in size. Pancreas and adrenal glands are unremarkable. Kidneys: No suspicious mass. No urinary tract calculi. No hydronephrosis. Vasculature: The aorta and IVC have normal caliber and position. The portal vein is patent. The pro ximal visceral and renal arteries are patent. Stomach: The stomach and duodenum have normal course. Other: No free intraperitoneal air. No free fluid or lymphadenopathy. Pelvis: Bladder: Urinary bladder is unremarkable. Bowel: No bowel obstruction. Colon is relatively diffusely fluid-filled. Portion of the proximal tr ansverse colon and hepatic flexure are under distended with associated wall prominence. Cannot exclud e underlying pathology at this level. Some of the small bowel loops are also fluid-filled, more prono unced in the right abdomen. Appendix: Possible partially visualized normal appendix. No acute appendicitis identified. Pelvis: No suspicious mass. Bones: No destructive bone lesions identified. IMPRESSION: Findings suspicious for enterocolitis. Cannot exclude underlying pathology at the level of the hepatic flexure/proximal transverse colon. Electronically signed by: Rachael Hooker MD 07/19/2023 12:17 AM [employer]CTOR [employer] Due to temporary technical issues with the PACS/Fluency reporting system, reports are being signed by the in house radiologists without review as a courtesy to insure prompt reporting. The interpreting radiologist is fully responsible for the content of the report.
== END 2023-07-19 01:17 | disposition home or self-care (01) ==
LOC: ER 19:28
DX: K52.9 Noninfective gastroenteritis and colitis, unspecified (principal); Z11.52 Encounter for screening for COVID-19; Z88.1 Allergy status to other antibiotic agents
CPT/HCPCS: 36415; 74177; 80053; 81001; 81025; 83690; 85025; 87804; 87811; J2405; J7030; Q9967